=== PATIENT | male | born 1965 | race Caucasian/White ===

== ENCOUNTER 2019-04-04 08:05 | Day surgery (SDC) | payer MEDICARE ==
--- NOTE | 2019-04-03 16:36 | RAD REPORT ---
EXAM DESCRIPTION: RAD - Chest Pa And Lat (2 Views) - 04/03/2019 4:16 pm CLINICAL HISTORY: preop, pending cardiac catheterization COMPARISON: March 2014 TECHNIQUE: PA and lateral views of the chest were obtained. FINDINGS: The lungs are clear. Lung markings are accentuated by a slightly shallow inspiration. Juan Pablo lure, infiltrate or mass not identified. Heart size is normal and central vasculature is within diane l limits. No pleural effusion or pneumothorax seen. Old rib fracture changes are present. No acute bone findings seen. No aortic abnormality. IMPRESSION: No acute cardiopulmonary process.
[2019-04-03 16:49] LABS: Absolute Lymphocytes (CBC) 1.8 K/uL (0.7-4.9); Basophils % 0.7 % (0-1.3); Hematocrit 38.2 % (39.6-49.0); MPV 7.9 fL (7.6-11.3)
[2019-04-03 16:52] LABS: Protime INR 1.04
[2019-04-03 17:05] LABS: Potassium 4.3 mmol/L (3.5-5.1)
[2019-04-04] MEDS ORDERED: NA CHLORIDE 0.9% 500 ML ONE (08:26)
[2019-04-04] MEDS ORDERED: MIDAZOLAM HCL 2 MG/2 ML INJ ONE ×3 (09:50→10:38)
[2019-04-04] MEDS ORDERED: FENTANYL CITR 100 MCG/2 ML ONE ×2 (09:50→11:02)
[2019-04-04] MEDS ORDERED: ATROPINE SULF 1 MG/10 ML SYR IV ONE (10:24)
[2019-04-04] MEDS ORDERED: NA CHLORIDE 0.9% 100 ML IV ONE (10:24)
[2019-04-04] MEDS ORDERED: ASPIRIN 325 MG TAB ONE (11:13)
[2019-04-04] MEDS ORDERED: PRASUGREL (EFFIENT) 10 MG TAB ONE (11:13)
[2019-04-04] MEDS ORDERED: MORPHINE 4 MG/ML SYR IV PRN (11:39)
[2019-04-04] MEDS ORDERED: ZOLPIDEM TARTRATE 10 MG TABLET PO PRN (11:40)
[2019-04-04] MEDS ORDERED: NITROGLYCERIN 0.4 MG/TAB SL PRN (11:40)
[2019-04-04] MEDS ORDERED: NA CHLORIDE 0.9% 1,000 ML IV SCH (12:00)
--- NOTE | 2019-04-04 12:14 | EKG ---
Test Date: 2019-04-03 Test Time: 15:55:51 Advisor Advocate Angel Co Founder: MONIK MEASUREMENT RESULTS: Intervals: Rate: 87 MT: 162 QRSD: 86 QT: 340 QTc: 409 [place]: P: 54 MT: 162 QRS: 28 T: 51 INTERPRETIVE STATEMENTS: Normal sinus rhythm Normal ECG Compared to ECG 03/03/2011 22:44:19 Left ventricular hypertrophy no longer present Electronically Signed On 04-04-19 12:09:37 CDT by Dale Rivera
[2019-04-04 14:54] VITALS: BMI 37.3
[2019-04-04] MEDS ORDERED: ATORVASTATIN 80 MG TAB PO SCH (21:00)
[2019-04-04] MEDS ORDERED: ACETAMINOPHEN 325 MG TABLET PO PRN (21:08)
--- NOTE | 2019-04-04 21:50 | OP ---
Date of Procedure: 04/04/2019 Surgeon: Dale Rivera MD Gastroenterology Manager: Judy Maloney. Indication: Coronary artery disease and positive stress test. Procedures: Left heart catheterization, selective coronary artery and primary stent of the proximal circumflex. History Of Present Illness: Mr. Webster is 54, has had history of high blood pressure; dyslipidemia; d iabetes; coronary artery disease status post stent in the circumflex, LAD, and RCA; had chest pain, p ositive stress test. He was scheduled today for catheterization. Description Of Procedure: He was brought to the clinical lab scientist as an outpatient, prepped and draped in the routine sterile fashion. Received 100 mcg of fentanyl and 6 mg of Versed for sedation. 6-Malaysian sh eath introduced in the right common femoral artery. Angiogram there was normal. Angio-Seal was used to close the case. He had been prepped and draped in the routine sterile fashion. 6-Malaysian cathete rs were used to do the coronary angiography. The JR4 was inserted in the right main. Showed a paten t stent in the RCA proximal. He had about 50% to 60% stenosis in the mid RCA and distal RCA as well. 6-Malaysian JL4 catheter introduced in the left main. Showed a normal left main. A patent mid LAD st ent, 50% proximal LAD, 50% to 60% distal LAD. His circumflex showed a patent stent in the mid circum flex, but he had 70% to 80% stenosis in the proximal circumflex away from the previous stent. An XB 3.5 with side-hole guide catheter was placed in the left main. A [place] wire 0.014 extra-support exc hange length was introduced and crossed the lesion successfully. A Synergy 3.0 x 12 stent was placed at 11 atmospheres successfully with 0% residual. There were no complications. Blood Loss: 5 cc. Anesthesia: Total conscious sedation was 30 minutes. Final Diagnosis: Proximal circumflex severe stenosis, status post successful primary stent of the pr oximal circumflex. Patent mid circ stent, mid LAD stent, and proximal RCA stent. Multiple lesions i n the proximal and distal LAD as well as mid and distal RCA 50% to 60% stenosis. We will continue me dical therapy for those. Patient received aspirin, Effient, and Angiomax during the procedure. ORA/NAVEEN Voice ID: [id number] Report ID: [id number]
[2019-04-05 06:09] LABS: Hematocrit 37.6 % (39.6-49.0); Lymphocytes % 20.3 % (15.3-44.8); MPV 7.8 fL (7.6-11.3); RBC Red Blood Cell Count 4.33 M/uL (4.33-5.43)
[2019-04-05 06:23] LABS: Potassium 4.2 mmol/L (3.5-5.1)
--- NOTE | 2019-04-05 08:30 | EKG ---
Test Date: 2019-04-05 Test Time: 07:45:57 Plywood Layup Line Core Layer: [place] MEASUREMENT RESULTS: Intervals: Rate: 76 WI: 164 QRSD: 94 QT: 366 QTc: 411 [place]: P: 62 WI: 164 QRS: 52 T: 57 INTERPRETIVE STATEMENTS: Normal sinus rhythm Normal ECG Compared to ECG 04/03/2019 15:55:51 No significant changes Electronically Signed On 04-05-19 08:30:15 CDT by Agustín Truong
[2019-04-05] MEDS ORDERED: CLOPIDOGREL 75 MG TABLET PO SCH (09:00)
[2019-04-05] MEDS ORDERED: ASPIRIN 81 MG CHEWABLE TABLET PO SCH (09:00)
[2019-04-05 11:03] VITALS: BP 152/65; TEMP 98.2; O2SAT 95
== END 2019-04-05 10:20 | disposition home or self-care (01) ==
LOC: CCL 08:05 → 2ND 11:17 → CCL 04-05 10:20
DX: I25.10 Atherosclerotic heart disease of native coronary artery without angina pectoris (principal); I65.23 Occlusion and stenosis of bilateral carotid arteries; I10 Essential (primary) hypertension; E78.5 Hyperlipidemia, unspecified; E78.6 Lipoprotein deficiency; G62.9 Polyneuropathy, unspecified; E11.9 Type 2 diabetes mellitus without complications; Z95.5 Presence of coronary angioplasty implant and graft; Z79.02 Long term (current) use of antithrombotics/antiplatelets; Z79.4 Long term (current) use of insulin
CPT/HCPCS: 93005 ×2; 85025 ×2; 80048 ×2; 36415 ×2; 85610; 80061; 82947 ×2; 85347 ×2; 85730; 71046; 93454; C1893; C1760; C1725; C9600; J2250 ×3; J3010 ×2; J0583; J7040; J7030

== ENCOUNTER 2019-05-25 10:02 | Emergency (ER) | payer MEDICARE ==
--- OUTSIDE RECORDS SUMMARY | 2019-05-25 11:12 | XMS REPORT ---
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 Problem Spinal stenosis, lumbosacral region M48.07 Active Problem Erectile dysfunction N52.9 Active Problem History of CVA (cerebrovascular Z86.73 Active accident) without residual deficits Problem HTN (hypertension), benign I10 Active Problem Chronic back pain M54.9 Active Assessment 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 Problem Obstructive sleep apnea G47.33 Active Medications Medication Code Code Instructions Start End Status Dosage System Date Date NovoLog [facility] 84276578099 100 UNIT/ML Inactive sliding Subcutaneous four scale 36 times a day units Novolin N NDC 18420039883 100 UNIT/ML Inactive 50 units Subcutaneous twice daily Novolin R NDC 83808834371 100 UNIT/ML Apr 17, Active per subcutaneously 2019 sliding three times a day scale 2 units - 28 units Novolin 70/30 ND [id number] (70-30) 100 Apr 17, Active 70 units UNIT/ML 2019 Subcutaneous twice a day Results No Known Results Summary Purpose eClinicalWorks Submission
--- OUTSIDE RECORDS SUMMARY | 2019-05-25 11:12 | XMS REPORT ---
:1965 Author Organization eClinicalWorks Care Team Providers Name Role Phone Grullon, Michael Provider Role Unavailable Allergies No Known Allergies Problems Problem Type Condition Code Onset Dates Condition Status Problem Depression with anxiety F41.8 Active Problem Hyperlipidemia E78.5 Active Problem Peripheral neuropathy G62.9 Active Problem HTN (hypertension), benign I10 Active Problem Chronic back pain M54.9 Active Problem Obstructive sleep apnea G47.33 Active Problem Venous insufficiency of both lower I87.2 Active extremities Problem Atherosclerosis of coronary artery I25.10 Active of [place] heart Problem Other chronic pain G89.29 Active Problem 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
[2019-05-25 12:36] LABS: Absolute Lymphocytes (CBC) 1.5 K/uL (0.7-4.9); Basophils % 0.5 % (0-1.3); Hematocrit 42.5 % (39.6-49.0); Lymphocytes % 11.4 % (15.3-44.8); MPV 7.7 fL (7.6-11.3); RBC Red Blood Cell Count 4.99 M/uL (4.33-5.43)
[2019-05-25 12:52] LABS: Albumin 3.5 g/dL (3.4-5.0); Bilirubin Direct 0.3 mg/dL (0-0.2); Bilirubin Total 1.2 mg/dL (0.2-1.0); Potassium 4.2 mmol/L (3.5-5.1); Protein, Total 7.7 g/dL (6.4-8.2)
[2019-05-25] MEDS ORDERED: MORPHINE 4 MG/ML SYR ONE ×2 (13:02→14:19)
[2019-05-25] MEDS ORDERED: ONDANSETRON 4 MG/2 ML VIAL ONE (13:02)
[2019-05-25] MEDS ORDERED: NA CHLORIDE 0.9% 1,000 ML ONE (13:02)
--- NOTE | 2019-05-25 15:10 | RAD REPORT ---
EXAM DESCRIPTION: CT - Abdomen Pelvis W Contrast - 05/25/2019 2:35 pm CLINICAL HISTORY: Abdominal pain / hematochezia COMPARISON: none. TECHNIQUE: Computed axial tomography of the abdomen pelvis was obtained. 100 cc Isovue-300 was admin istered intravenously. Oral contrast was not requested which limits evaluation of bowel. All CT scans are performed using dose optimization technique as appropriate and may include automated exposure control or mA/KV adjustment according to patient size. FINDINGS: The liver, spleen, pancreas, adrenal and kidneys appear unremarkable. There is no evidence of diverticulitis. The wall of the proximal descending colon appears mildly thic kened Small umbilical hernia IMPRESSION: Mild thickening of the wall of the proximal descending colon indicative of a mild coliti s.
--- NOTE | 2019-05-25 15:41 | ER ---
Nurse's Notes [facility] Name: Tripp Webster Age: 54 yrs Sex: Male : 1965 Arrival Date: 05/25/2019 Time: 10:05 Bed 28 Private MD: Michael Grullon Diagnosis: Abdominal and pelvic pain;Left sided colitis Presentation: 05/25 10:43 Presenting complaint: Patient states: I called my pcp Dr. Grullon to see if i can get in tw2 to see him, i have been having stomach pains and throwing up since yesterday afternoon, i am having blood in the toilet, it is bright red since yesterday after. Transition of care: patient was not received from another setting of care. Onset of symptoms was May 25, 2019. Risk Assessment: Do you want to hurt yourself or someone else? Patient reports no desire to harm self or others. Initial Sepsis Screen: Does the patient meet any 2 criteria? No. Patient's initial sepsis screen is negative. Does the patient have a suspected source of infection? No. Patient's initial sepsis screen is negative. Care prior to arrival: None. 10:43 Method Of Arrival: Ambulatory tw2 10:43 Acuity: MIRIAM 3 tw2 Triage Assessment: 10:45 General: Appears in no apparent distress. unkempt, Behavior is calm, cooperative, tw2 appropriate for age. Pain: Complains of pain in abdomen. GI: Reports lower abdominal pain, upper abdominal pain, rectal bleeding, bloody stool, nausea. Historical: - Allergies: 10:49 No Known Allergies; tw2 - Home Meds: 10:49 gabapentin 600 mg oral tab 1 tab 3 times per day [Active]; amlodipine 10 mg tab 1 tab tw2 once daily [Active]; hydrochlorothiazide 25 mg Oral tab 1 tab once daily [Active]; clopidogrel 75 mg oral tab 1 tab once daily [Active]; Novolin N 100 unit/mL Sub-Q susp [Active]; Novolin R Sub-Q [Active]; - PMHx: 10:49 neuropathy; Diabetes - IDDM; tw2 - PSHx: 10:49 Heart stents(March 2019); tw2 - Immunization history:: Adult Immunizations. - Social history:: Smoking status: . - Ebola Screening: : Patient denies travel to an Ebola-affected area in the 21 days before illness onset. Screenin:11 Abuse screen: Denies threats or abuse. Nutritional screening: No deficits noted. tw2 Tuberculosis screening: No symptoms or risk factors identified. Fall Risk None identified. Assessment: 13:10 General: Appears in no apparent distress. uncomfortable, Behavior is fussy. mg2 13:10 Pain: Complains of pain in abdomen Pain does not radiate. Pain currently is 8 out of 10 mg2 on a pain scale. Quality of pain is described as aching, Pain began gradually, 1 day ago. Is intermittent. Neuro: Level of Consciousness is awake, alert, obeys commands, Oriented to person, place, time, situation. Cardiovascular: Capillary refill < 3 seconds Patient's skin is warm and dry. Respiratory: Airway is patent Respiratory effort is even, unlabored, Respiratory pattern is regular, symmetrical. GI: Bowel sounds present X 4 quads. Abdomen is tender to palpation Reports lower abdominal pain, bloody stool, nausea, vomiting, since yesterday. : No signs and/or symptoms were reported regarding the genitourinary system. EENT: No signs and/or symptoms were reported regarding the EENT system. Derm: Skin is intact, is healthy with good turgor, Skin is pink, warm \T\ dry. normal. Musculoskeletal: Circulation, motion, and sensation intact. Capillary refill < 3 seconds. 13:53 Reassessment: Patient appears in no apparent distress at this time. Patient and/or mg2 family updated on plan of care and expected duration. Pain level reassessed. Patient is alert, oriented x 3, equal unlabored respirations, skin warm/dry/pink. Patient states feeling better. Patient states symptoms have improved. 15:59 Reassessment: Patient states feeling better. Patient states symptoms have improved. mg2 Vital Signs: 10:45 BP 134 / 61; Pulse 95; Resp 18; Temp 98.1(TE); Pulse Ox 97% on R/A; Weight 120.2 kg tw2 (R); Height 5 ft. 11 in. (180.34 cm) (R); Pain 8/10; 12:08 BP 154 / 71; Pulse 91; Resp 16; Temp 97.7(O); Pulse Ox 100% ; lt1 12:13 BP 154 / 71; Pulse 81; Resp 18; Pulse Ox 100% on R/A; ss 13:27 BP 157 / 72; Pulse 89; Resp 16; Temp 98.2(O); Pulse Ox 98% ; lt1 13:29 Pulse Ox 86% ; lt1 13:30 Pulse Ox 100% on 2 lpm NC; lt1 15:59 BP 150 / 78; Pulse 89; Resp 18; Temp 98; Pulse Ox 100% on R/A; mg2 10:45 Body Mass Index 36.96 (120.20 kg, 180.34 cm) tw2 ED Course: 10:05 Patient arrived in ED. mr 10:05 Michael Grullon DO is Private Physician. mr 10:44 Triage completed. tw2 10:44 Arm band placed on. tw2 11:58 Bed in low position. Call light in reach. tw2 12:09 Flaca Del Valle, KAMILLA is Primary Nurse. ss 12:24 Edvin Abrams MD is Attending Physician. kdr 13:12 Served as a die cast engineer during rectal exam. mg2 13:15 Inserted saline lock: 20 gauge in right upper arm, using aseptic technique. Blood mg2 collected. 13:33 Al Johnson, KAMILLA is Primary Nurse. mg2 14:45 CT Abd/Pelvis - IV Contrast Only In Process Unspecified. EDMS 15:28 Michael Grullon DO is Referral Physician. kdr 16:00 IV discontinued, intact, bleeding controlled, No redness/swelling at site. Pressure mg2 dressing applied. Administered Medications: 13:15 Drug: morphine 4 mg Route: IVP; Site: right upper arm; mg2 13:47 Follow up: Response: No adverse reaction; Pain is decreased; RASS: Alert and Calm (0) mg2 13:15 Drug: Zofran 4 mg Route: IVP; Site: right upper arm; mg2 13:46 Follow up: Response: No adverse reaction mg2 13:15 Drug: NS 0.9% 1000 ml Route: IV; Rate: 1 bolus; Site: right upper arm; mg2 15:48 Follow up: Response: No adverse reaction; IV Status: Completed infusion; IV Intake: mg2 1000ml 14:21 Drug: morphine 4 mg {Note: RASS:0.} Route: IVP; Site: right antecubital; tr5 15:47 Follow up: Response: No adverse reaction mg2 15:58 Drug: TORadol - Ketorolac 15 mg Route: IVP; Site: right upper arm; mg2 Point of Care Testing: Guaiac: 13:24 Stool Guaiac: Positive; Stool Hemoccult Control: Pass; mg2 Intake: 15:48 IV: 1000ml; Total: 1000ml. mg2 Outcome: 15:39 Discharge ordered by . kdr 16:00 Discharged to home ambulatory. mg2 16:00 Condition: stable 16:00 Discharge instructions given to patient, Instructed on discharge instructions, follow up and referral plans. medication usage, Demonstrated understanding of instructions, follow-up care, medications, Prescriptions given X 4. 16:01 Patient left the ED. mg2 Signatures: Dispatcher [employer] EDMS Edvin Abrams MD MD kdr White, Toma mr Flaca Del Valle, RN RN ss Nori Garcia RN RN tw2 Al Johnson RN RN mg2 Dee Ronquillo 1 Lauro Samano RN RN tr5 Corrections: (The following items were deleted from the chart) 10:57 10:43 Acuity: MIRIAM 2 tw2 tw2
--- NOTE | 2019-05-25 15:42 | EDPHYS ---
Physician Documentation [facility] Name: Tripp Webster Age: 54 yrs Sex: Male : 1965 Arrival Date: 05/25/2019 Time: 10:05 Bed 28 Private MD: [facility] ED Physician Edvin Abrams HPI: 05/25 16:17 This 54 yrs old Male presents to ER via Ambulatory with complaints of kdr Abdominal Pain, Rectal Bleeding, Vomiting. 16:30 The patient presents with abdominal pain that is diffuse. Onset: The symptoms/episode kdr began/occurred gradually, 1 week(s) ago. The symptoms do not radiate. Associated signs and symptoms: Pertinent positives: blood in stools, nausea. The symptoms are described as achy, crampy, intermittent, waxing/waning. Modifying factors: The symptoms are alleviated by nothing, the symptoms are aggravated by touching the area, walking. Severity of pain: At its worst the pain was moderate severe in the emergency department the pain has improved mildly. The patient has not experienced similar symptoms in the past. The patient has not recently seen a physician. Historical: - Allergies: 10:49 No Known Allergies; tw2 - Home Meds: 10:49 gabapentin 600 mg oral tab 1 tab 3 times per day [Active]; amlodipine 10 mg tab 1 tab tw2 once daily [Active]; hydrochlorothiazide 25 mg Oral tab 1 tab once daily [Active]; clopidogrel 75 mg oral tab 1 tab once daily [Active]; Novolin N 100 unit/mL Sub-Q susp [Active]; Novolin R Sub-Q [Active]; - PMHx: 10:49 neuropathy; Diabetes - IDDM; tw2 - PSHx: 10:49 Heart stents(March 2019); tw2 - Immunization history:: Adult Immunizations. - Social history:: Smoking status: . - Ebola Screening: : Patient denies travel to an Ebola-affected area in the 21 days before illness onset. ROS: 16:30 Constitutional: Negative for fever, chills, and weight loss, Eyes: Negative for injury, kdr pain, redness, and discharge, ENT: Negative for injury, pain, and discharge, Neck: Negative for injury, pain, and swelling, Cardiovascular: Negative for chest pain, palpitations, and edema, Respiratory: Negative for shortness of breath, cough, wheezing, and pleuritic chest pain, Back: Negative for injury and pain, : Negative for injury, bleeding, discharge, and swelling, MS/Extremity: Negative for injury and deformity, Skin: Negative for injury, rash, and discoloration, Neuro: Negative for headache, weakness, numbness, tingling, and seizure activity. Psych: Negative for depression, anxiety, suicide ideation, homicidal ideation, and hallucinations, Allergy/Immunology: Negative for hives, rash, and allergies, Endocrine: Negative for neck swelling, polydipsia, polyuria, polyphagia, and marked weight changes, Hematologic/Lymphatic: Negative for swollen nodes, abnormal bleeding, and unusual bruising. 16:30 Abdomen/GI: Positive for abdominal pain, nausea, vomiting, and diarrhea, diarrhea, abdominal cramps, rectal bleeding, Negative for constipation, abdominal distension. Exam: 16:45 Constitutional: This is a well developed, well nourished patient who is awake, alert, kdr and in mild distress. Head/Face: Normocephalic, atraumatic. Eyes: Pupils equal round and reactive to light, extra-ocular motions intact. Lids and lashes normal. Conjunctiva and sclera are non-icteric and not injected. Cornea within normal limits. Periorbital areas with no swelling, redness, or edema. Neck: Trachea midline, no thyromegaly or masses palpated, and no cervical lymphadenopathy. Supple, full range of motion without nuchal rigidity, or vertebral point tenderness. No Meningismus. Chest/axilla: Normal chest wall appearance and motion. Nontender with no deformity. No lesions are appreciated. Cardiovascular: Regular rate and rhythm with a normal S1 and S2. No gallops, murmurs, or rubs. Normal PMI, no JVD. No pulse deficits. Respiratory: Lungs have equal breath sounds bilaterally, clear to auscultation and percussion. No rales, rhonchi or wheezes noted. No increased work of breathing, no retractions or nasal flaring. Back: No spinal tenderness. No costovertebral tenderness. Full range of motion. Skin: Warm, dry with normal turgor. Normal color with no rashes, no lesions, and no evidence of cellulitis. MS/ Extremity: Pulses equal, no cyanosis. Neurovascular intact. Full, normal range of motion. Neuro: Awake and alert, GCS 15, oriented to person, place, time, and situation. Cranial nerves II-XII grossly intact. Motor strength 5/5 in all extremities. Sensory grossly intact. Cerebellar exam normal. Normal gait. Psych: Awake, alert, with orientation to person, place and time. Behavior, mood, and affect are within normal limits. 16:45 Abdomen/GI: Inspection: abdomen appears normal, obese Bowel sounds: normal, in all quadrants, active, Palpation: soft, mild abdominal tenderness, in all quadrants, mass, is not appreciated, rebound tenderness, is not appreciated. Vital Signs: 10:45 BP 134 / 61; Pulse 95; Resp 18; Temp 98.1(TE); Pulse Ox 97% on R/A; Weight 120.2 kg tw2 (R); Height 5 ft. 11 in. (180.34 cm) (R); Pain 8/10; 12:08 BP 154 / 71; Pulse 91; Resp 16; Temp 97.7(O); Pulse Ox 100% ; lt1 12:13 BP 154 / 71; Pulse 81; Resp 18; Pulse Ox 100% on R/A; ss 13:27 BP 157 / 72; Pulse 89; Resp 16; Temp 98.2(O); Pulse Ox 98% ; lt1 13:29 Pulse Ox 86% ; lt1 13:30 Pulse Ox 100% on 2 lpm NC; lt1 15:59 BP 150 / 78; Pulse 89; Resp 18; Temp 98; Pulse Ox 100% on R/A; mg2 10:45 Body Mass Index 36.96 (120.20 kg, 180.34 cm) tw2 MDM: 15:39 Patient medically screened. kdr 16:45 Data reviewed: vital signs, nurses notes, lab test result(s), radiologic studies. kdr Counseling: I had a detailed discussion with the patient and/or guardian regarding: the historical points, exam findings, and any diagnostic results supporting the discharge/admit diagnosis, lab results, radiology results, the need for outpatient follow up. 05/25 12:10 Order name: Basic Metabolic Panel; Complete Time: 14:10 ss 12 12:10 Order name: CBC with Diff; Complete Time: 14:10 ss 12 12:10 Order name: Creatinine for Radiology; Complete Time: 14:10 ss 12 12:10 Order name: Hepatic Function; Complete Time: 14:10 ss 05/25 12:10 Order name: Lipase; Complete Time: 14:10 ss 05/25 12:10 Order name: TS; Complete Time: 14:10 ss 05/25 12:10 Order name: IV Saline Lock; Complete Time: 13:22 ss 05/25 14:04 Order name: ABO/RH no charge; Complete Time: 14:10 EDMS 05/25 14:12 Order name: CT Abd/Pelvis - IV Contrast Only; Complete Time: 15:27 kdr 05/25 12:10 Order name: Labs collected and sent; Complete Time: 13:22 ss Administered Medications: 13:15 Drug: morphine 4 mg Route: IVP; Site: right upper arm; mg2 13:47 Follow up: Response: No adverse reaction; Pain is decreased; RASS: Alert and Calm (0) mg2 13:15 Drug: Zofran 4 mg Route: IVP; Site: right upper arm; mg2 13:46 Follow up: Response: No adverse reaction mg2 13:15 Drug: NS 0.9% 1000 ml Route: IV; Rate: 1 bolus; Site: right upper arm; mg2 15:48 Follow up: Response: No adverse reaction; IV Status: Completed infusion; IV Intake: mg2 1000ml 14:21 Drug: morphine 4 mg {Note: RASS:0.} Route: IVP; Site: right antecubital; tr5 15:47 Follow up: Response: No adverse reaction mg2 15:58 Drug: TORadol - Ketorolac 15 mg Route: IVP; Site: right upper arm; mg2 Point of Care Testing: Guaiac: 13:24 Stool Guaiac: Positive; Stool Hemoccult Control: Pass; mg2 Disposition: 05/25/19 15:39 Discharged to Home. Impression: Abdominal and pelvic pain, Left sided colitis. - Condition is Stable. - Discharge Instructions: Abdominal Pain, Adult, Diarrhea, Adult, Pnew-qt-Pndr, Colitis. - Prescriptions for Cipro 500 mg Oral Tablet - take 1 tablet by ORAL route every 12 hours for 10 days; 20 tablet. Flagyl 500 mg Oral Tablet - take 1 tablet by ORAL route every 6 hours for 10 days; 40 tablet. Zofran 4 mg Oral Tablet - take 1 tablet by ORAL route every 12 hours As needed; 12 tablet. Tramadol 50 mg Oral Tablet - take 1 tablet by ORAL route every 8 hours as needed; 12 tablet. - Medication Reconciliation Form, Thank You Letter, Antibiotic Education, Prescription Opioid Use form. - Follow up: Michael Grullon DO; When: 2 - 3 days; Reason: If symptoms return, Further diagnostic work-up, Recheck today's complaints, Continuance of care, Re-evaluation by your physician. - Problem is new. - Symptoms have improved. Signatures: Dispatcher [employer] EDTX Edvin Abrams MD MD kdr Flaca Del Valle RN RN ss Nori Garcia RN RN tw2 Al Johnson RN RN mg2 Lauro Samano RN RN tr5 Corrections: (The following items were deleted from the chart) 16:01 15:39 05/25/2019 15:39 Discharged to Home. Impression: Abdominal and pelvic pain; Left mg2 sided colitis. Condition is Stable. Forms are Medication Reconciliation Form, Thank You Letter, Antibiotic Education, Prescription Opioid Use. Follow up: Michael Grullon; When: 2 - 3 days; Reason: If symptoms return, Further diagnostic work-up, Recheck today's complaints, Continuance of care, Re-evaluation by your physician. Problem is new. Symptoms have improved. kdr
[2019-05-25] MEDS ORDERED: KETOROLAC 30 MG/ML INJ ONE (15:51)
[2019-05-25 16:23] VITALS: O2SAT 100
[2019-05-25 16:25] VITALS: BP 150/78; TEMP 98
== END 2019-05-25 16:01 | disposition home or self-care (01) ==
LOC: ER 10:02
DX: K51.50 Left sided colitis without complications (principal); E11.40 Type 2 diabetes mellitus with diabetic neuropathy, unspecified; Z79.4 Long term (current) use of insulin; Z95.818 Presence of other cardiac implants and grafts
CPT/HCPCS: 96361; 85025; 80048; 36415; 86900; 86850; 86901; 80076; 83690; 74177; 96375; 96374; 99284; Q9967; J7030; J2405

== ENCOUNTER 2019-06-14 08:50 | Inpatient (IN) | payer MEDICARE ==
--- OUTSIDE RECORDS SUMMARY | 2019-06-14 08:53 | XMS REPORT ---
[...] Atherosclerosis of coronary artery I25.10 Active of [place] heart Problem Other chronic pain G89.29 Active [...] End Status Dosage System Date Date NovoLog [facility] 96003984584 100 UNIT/ML Inactive sliding Subcutaneous four scale 36 times a day units Novolin N NDC 06997677988 100 UNIT/ML Inactive 50 units Subcutaneous twice daily Novolin R NDC 35477698369 100 UNIT/ML Apr 17, Active per subcutaneously 2019 sliding three times a day scale 2 units - 28 units Novolin 70/30 ND 77911202983 (70-30) 100 Apr 17, Active 70 units UNIT/ML 2019 Subcutaneous twice a day Results No Known Results Summary Purpose eClinicalWorks Submission
--- OUTSIDE RECORDS SUMMARY | 2019-06-14 08:53 | XMS REPORT ---
:1965 Author Organization e[employer] Care Team Providers Name Role Phone Michael Grullon Provider Role Unavailable Allergies, Adverse Reactions, Alerts Substance Reaction Event Type N.K.D.A. Info Not Available Non Drug Allergy Problems Problem Type Condition Code Onset Dates Condition Status Assessment Other chronic pain G89.29 Active Problem Chronic back pain M54.9 Active Assessment History of CVA (cerebrovascular Z86.73 Active accident) without residual deficits Problem Obstructive sleep apnea G47.33 Active Assessment Peripheral neuropathy G62.9 Active Problem Depression with anxiety F41.8 Active Problem Hyperlipidemia E78.5 Active Problem Peripheral neuropathy G62.9 Active Problem Venous insufficiency of both lower I87.2 Active extremities Problem Atherosclerosis of coronary artery I25.10 Active of [place] [facility] Assessment 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 Assessment Low back pain M54.5 Active Problem Other chronic pain G89.29 Active Assessment Atherosclerosis of coronary artery I25.10 Active of [place] [facility] Problem 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 Problem Spinal stenosis, lumbosacral region M48.07 Active Problem Erectile dysfunction N52.9 Active Problem History of CVA (cerebrovascular Z86.73 Active accident) without residual deficits Assessment Obstructive sleep apnea G47.33 Active Assessment Depression with anxiety F41.8 Active Assessment Noncompliance with CPAP treatment Z91.14 Active Assessment Hyperlipidemia E78.5 Active Problem HTN (hypertension), benign I10 Active Assessment HTN (hypertension), benign I10 Active Assessment Left sided colitis with K51.519 Active complication Medications Medication Code Code Instructions Start End Status Dosage System Date Date Novolin R [facility] 96233430604 100 UNIT/ML Apr 17, Active per subcutaneously 2018 sliding three times a scale 2 day units - 28 units Neurontin [facility] 66013659796 600 MG Orally Active 1 tablet Once a day Lipitor ND 12868183940 80 MG Active TAKE 1 TABLET BY MOUTH ONCE A DAY Lisinopril [facility] 32226813874 30 MG Orally Active 1 tablet Once a day Neurontin [facility] 98581567161 600 MG Active TAKE 1 TABLET BY MOUTH 4 TIMES DAILY OneTouch Ultra Test [facility] 89828802976 - fingerstick Active TEST Four times a day BLOOD GLUCOSE FOUR TIMES A DAY Plavix [facility] 70968876180 75 MG Orally Active 1 tablet Once a day Escitalopram Oxalate [facility] 76623678028 20 MG Orally Active 1 tablet Once a day Hydrochlorothiazide [facility] 96049123362 12.5 MG Orally Active 1 tablet Once a day in the morning NovoLog [facility] 74667782653 100 UNIT/ML Active sliding Subcutaneous scale 36 four times a day units Novolin N [facility] 25409331879 100 UNIT/ML Active 50 units Subcutaneous twice daily Amlodipine Besylate [facility] 31992929712 5 MG Active TAKE 1 TABLET BY MOUTH ONCE A DAY Plavix [facility] 11298374423 75 MG Active TAKE 1 TABLET BY MOUTH ONCE A DAY Amlodipine Besylate [facility] 31280521779 5 MG Orally Once Active 1 tablet a day Lisinopril [facility] 92922888795 30 MG Active TAKE 1 TABLET BY MOUTH ONCE A DAY ProAir HFA [facility] 87185140728 108 (90 Base) Active 2 puffs MCG/ACT as Inhalation every needed 6 hrs Novolin 70/30 [facility] 14104960197 (70-30) 100 Apr 17, Active 70 units UNIT/ML 2019 Subcutaneous twice a day Lipitor [facility] 94546018145 80 MG Orally Active 1 tablet Once a day Results No Known Results Summary Purpose eClinicalWorks Submission
--- OUTSIDE RECORDS SUMMARY | 2019-06-14 08:53 | XMS REPORT ---
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
[2019-06-14] MEDS ORDERED: NA CHLORIDE 0.9% 3,000 ML ONE (09:15)
[2019-06-14] MEDS ORDERED: ACETAMINOPHEN 500 MG TAB ONE (09:15)
[2019-06-14] MEDS ORDERED: ONDANSETRON 4 MG/2 ML VIAL ONE ×4 (09:15→14:04)
[2019-06-14] MEDS ORDERED: METRONIDAZOLE 500mg IVPB 500 MG/100 ML BAG IV ONE (09:15)
[2019-06-14] MEDS ORDERED: CEFTRIAXONE/SWI 1gm 1 GM/10 ML SYR ONE (09:15)
[2019-06-14] MEDS ORDERED: MORPHINE 4 MG/ML SYR ONE ×3 (10:05→14:04)
--- NOTE | 2019-06-14 10:50 | RAD REPORT ---
EXAM DESCRIPTION: RAD - Chest Single View - 06/14/2019 9:28 am CLINICAL HISTORY: Cough COMPARISON: April 03 TECHNIQUE: AP portable chest image was obtained 0925 hours . FINDINGS: Lung volumes are low. This accentuates the patient's interstitial pattern. No true change is suspected. No focal mass or consolidation. Heart size within limits of normal for shallow inspirat ion portable imaging. No measurable pleural effusion and no pneumothorax. No acute bony abnormality s een. No acute aortic findings suspected. IMPRESSION: Shallow inspiration film without acute cardiopulmonary finding. Shallow inspiration and baseline interstitial pattern could mask mild interstitial edema or infiltrat e.
[2019-06-14 10:52] LABS: Absolute Lymphocytes (CBC) 1.1 K/uL (0.7-4.9); Basophils % 0.4 % (0-1.3); Hematocrit 42.6 % (39.6-49.0); Lymphocytes % 21.9 % (15.3-44.8); MPV 8.2 fL (7.6-11.3); RBC Red Blood Cell Count 5.05 M/uL (4.33-5.43)
[2019-06-14 11:01] LABS: Protime INR 1.25
[2019-06-14 11:03] LABS: ALT/SGPT 35 U/L (12-78); AST/SGOT 37 U/L (15-37); Albumin 2.8 g/dL (3.4-5.0); Alkaline Phosphatase 87 U/L (45-117); BUN Blood Urea Nitrogen 18 mg/dL (7-18); Bicarbonate 24 mmol/L (21-32); Bilirubin Direct 0.2 mg/dL (0-0.2); Bilirubin Total 0.9 mg/dL (0.2-1.0); C-Reactive Protein 7.91 mg/L (<3.00); CKMB Creatine Kinase MB < 1.0 ng/mL (0.3-3.6); Creatine Phosphokinase 92 U/L (39-308); Glucose Level 306 mg/dL (74-106); Lipase 49 U/L (73-393); NT PRO-BNP 71 pg/mL (<125); Potassium 3.7 mmol/L (3.5-5.1); Protein, Total 6.7 g/dL (6.4-8.2); Sodium Level 135 mmol/L (136-145); Troponin (Emerg Dept Use Only) < 0.02 ng/mL (0.0-0.045)
--- NOTE | 2019-06-14 12:00 | RAD REPORT ---
EXAM DESCRIPTION: - CT-ABD PELVIS W/O CONTRAST - 06/14/2019 11:29 am CLINICAL HISTORY: Abdominal pain, chest pain, nausea and vomiting COMPARISON: CT study May 25, 2019 TECHNIQUE: Axial [address] imaging of the abdomen and pelvis was performed without oral or IV co ntrast. All CT scans are performed using dose optimization technique as appropriate and may include automated exposure control or mA/KV adjustment according to patient size. FINDINGS: No suspicious findings in the lung bases. The liver, spleen, and pancreas show no suspicious findings for a non IV contrast study. Gallbladder and biliary tree are also without suspicious finding. No hydronephrosis or suspicious mass in either kidney. Isodense masses and pyelonephritis cannot be excluded on non IV contrast imaging. No bladder abnormality. No gastric dilatation or wall thickening. A few prominent jejunum loops are present. Obstruction is n ot suspected. No ileum abnormality. No evidence for appendicitis. Moderate stool volume is present fi lling the colon. No colon wall thickening or mass. No free air, free fluid or inflammatory stranding. No hernia, mass or bulky lymphadenopathy. No adrenal abnormality. No suspicious bony findings. Bony degenerative changes are present. Prominent vascular calcifications are present. IMPRESSION: Prominent loops of jejunum favor a nonspecific enteritis. Bowel obstruction is not suspe cted. No free air, abscess or other surgically emergent finding. Moderately large stool volume filling but not dilating the colon. No acute colon process. Prominent for age bony degenerative change. No acute findings.
--- NOTE | 2019-06-14 12:11 | ER ---
Nurse's Notes [facility] Name: Tripp Webster Age: 54 yrs Sex: Male : 1965 Arrival Date: 06/14/2019 Time: 08:52 Bed 8 Private MD: Diagnosis: Sepsis, unspecified organism;Other specified noninfective gastroenteritis and colitis Presentation: 06/14 08:53 Presenting complaint: N/V/D x 1 week, chest pain x 2 weeks. Transition of care: patient hb was not received from another setting of care. Onset of symptoms was June 07, 2020. Risk Assessment: Do you want to hurt yourself or someone else? Patient reports no desire to harm self or others. Care prior to arrival: None. 08:53 Method Of Arrival: EMS: [facility] 08:53 Acuity: MIRIAM 2 hb 08:53 Initial Sepsis Screen: Does the patient meet any 2 criteria? Temp <36.0*C (96.8*F)) or hb > 38.3*C (100.9*F). HR > 90 bpm. Yes Does the patient have a suspected source of infection? Yes: Other: N/V/D. Historical: - Allergies: 08:54 No Known Allergies; hb - Home Meds: 08:54 amlodipine 10 mg tab 1 tab once daily [Active]; clopidogrel 75 mg Oral tab 1 tab once hb daily [Active]; gabapentin 600 mg Oral tab 1 tab 3 times per day [Active]; hydrochlorothiazide 25 mg oral tab [Active]; Novolin N 100 unit/mL Sub-Q susp [Active]; Novolin R Sub-Q [Active]; - PMHx: 08:54 Diabetes - IDDM; neuropathy; hb - PSHx: 08:54 Heart stents(March 2019); hb - Immunization history:: Adult Immunizations up to date. - Social history:: Smoking status: Patient/guardian denies using tobacco, Patient/guardian denies using alcohol, street drugs. - Ebola Screening: : No symptoms or risks identified at this time. - Family history:: not pertinent. Screenin:56 Abuse screen: Denies threats or abuse. Denies injuries from another. Nutritional hb screening: No deficits noted. Tuberculosis screening: No symptoms or risk factors identified. Fall Risk Total Brush Fall Scale indicates Low Risk Score (25-44 pts). Fall prevention measures have been instituted. Side Rails Up X 2 Frequent Obs/Assesments occuring As available Patient and Family Educated on Fall Prevention Program and strategies. Assessment: 08:56 Reassessment: CODE SEPSIS CALLED. hb 09:00 General: Appears in no apparent distress. uncomfortable, ill, Behavior is agitated, hb restless. Pain: Pain currently is 10 out of 10 on a pain scale. Neuro: Level of Consciousness is awake, alert, obeys commands, Oriented to person, place, time, situation. Cardiovascular: Heart tones S1 S2 present Capillary refill < 3 seconds Patient's skin is warm and dry. Respiratory: Airway is patent Respiratory effort is even, unlabored, Respiratory pattern is regular, symmetrical, Breath sounds are clear bilaterally. GI: Abdomen is round Bowel sounds present X 4 quads. Reports lower abdominal pain, upper abdominal pain, diarrhea, nausea, vomiting. : No signs and/or symptoms were reported regarding the genitourinary system. EENT: No signs and/or symptoms were reported regarding the EENT system. Derm: Skin is intact, is healthy with good turgor, Skin is pink, warm \T\ dry. Musculoskeletal: No signs and/or symptoms reported regarding the musculoskeletal system. 09:30 Reassessment: inside lab at bedside for 2nd blood culture. hb 09:40 Reassessment: Pt refusing second set of blood cultures, refusing antibiotics, Dr. baylee Lovell aware. 10:08 Reassessment: Pt c/o back pain 03/23, Dr. Lovell notified, morphine and zofran hb administered as ordered. 2nd set of blood cultures obtained after medication administered. 10:09 Reassessment: iv abx started. hb 11:00 Reassessment: Patient appears in no apparent distress at this time. Patient and/or hb family updated on plan of care and expected duration. Pain level reassessed. Patient is alert, oriented x 3, equal unlabored respirations, skin warm/dry/pink. 12:00 Reassessment: Patient appears in no apparent distress at this time. Patient and/or hb family updated on plan of care and expected duration. Pain level reassessed. Patient is alert, oriented x 3, equal unlabored respirations, skin warm/dry/pink. 12:55 Reassessment: Patient appears in no apparent distress at this time. Patient and/or hb family updated on plan of care and expected duration. Pain level reassessed. Patient is alert, oriented x 3, equal unlabored respirations, skin warm/dry/pink. Admission ordered, awaiting room assignment at this time. 13:45 Reassessment: Patient appears in no apparent distress at this time. Patient and/or hb family updated on plan of care and expected duration. Pain level reassessed. Patient is alert, oriented x 3, equal unlabored respirations, skin warm/dry/pink. 14:04 Reassessment: Pt c/o chest, abdominal, and back pain 10/10. Dr. Lovell notified, hb repeat morphine and zofran administered as ordered. 14:23 Reassessment: Receiving nurse unavailable at this time, report called to Charge Nurse baylee Barkley RN. Vital Signs: 08:54 BP 149 / 76; Pulse 119; Resp 20; Temp 104.7(TE); Pulse Ox 92% on R/A; Weight 117.93 kg; hb Height 5 ft. 11 in. (180.34 cm); Pain 5/10; 10:00 BP 136 / 68; Pulse 109; Resp 20; Temp 102.1; Pulse Ox 97% 3 lpm ; Pain 10/10; hb 11:00 BP 129 / 56; Pulse 101; Resp 18; Temp 100.7(O); Pulse Ox 96% on 3 lpm NC; Pain 3/10; hb 12:00 BP 117 / 53; Pulse 97; Resp 18; Pulse Ox 99% on 3 lpm NC; Pain 3/10; hb 12:59 BP 115 / 74; Pulse 88; Resp 17; Pulse Ox 99% on 2 lpm NC; Pain 2/10; hb 14:25 BP 146 / 53; Pulse 102; Resp 18; Temp 100.2; Pulse Ox 100% on R/A; Pain 4/10; hb 08:54 Body Mass Index 36.26 (117.93 kg, 180.34 cm) ED Course: 08:52 Patient arrived in ED. hb 08:54 Triage completed. hb 08:55 Raven Lovell MD is Attending Physician. ma2 08:56 Arm band placed on. hb 09:02 Missed attempt(s): 22 gauge in left antecubital area. x 2 by Yael KOHLI. hb 09:07 Radiology exam delayed due to lab results not completed at this time. (BUN/Creatinine). bq 09:15 Patient has correct armband on for positive identification. Placed in gown. Bed in low hb position. Call light in reach. Side rails up X2. media monitor on. Pulse ox on. NIBP on. 09:15 Inserted saline lock: 20 gauge in right antecubital area, using aseptic technique. hb Blood collected. 09:15 Initial lab(s) drawn, First set of blood cultures drawn by me. hb 09:28 Chest Single View XRAY In Process Unspecified. EDMS 10:08 Second set of blood cultures drawn. hb 10:32 Lab(s) recollected, by me, sent to lab. jl7 11:32 CT-ABD In Process Unspecified. EDMS 11:57 Yael Maldonado, KAMILLA is Primary Nurse. jl7 12:08 Clif Mendez DO is Hospitalizing Provider. al2 13:49 Urine Dipstick--Ancillary (enter results) Sent. jl7 14:10 No provider procedures requiring assistance completed. Patient admitted, IV remains in jl7 place. intact, No redness/swelling at site. Administered Medications: 09:10 CANCELLED (Duplicate Order): NS 0.9% (30 ml/kg) 30 ml/kg IV at bolus once; Sepsis iw Protocol 09:18 Drug: NS 0.9% (30 ml/kg) 30 ml/kg Route: IV; Rate: bolus; Site: right antecubital; hb 10:45 Follow up: Response: No adverse reaction; IV Status: Completed infusion; IV Intake: hb 3500ml 09:20 Drug: Acetaminophen 1000 mg Route: PO; hb 10:30 Follow up: Response: No adverse reaction; Temperature is decreased hb 09:20 Drug: Zofran 4 mg Route: IVP; Site: right antecubital; hb 10:00 Follow up: Response: No adverse reaction hb 10:08 Drug: morphine 4 mg Route: IVP; Site: right antecubital; hb 10:30 Follow up: Response: No adverse reaction; Pain is decreased hb 10:08 Drug: Zofran 4 mg Route: IVP; Site: right antecubital; hb 10:30 Follow up: Response: No adverse reaction hb 10:09 Drug: Rocephin 1 grams Route: IV; Rate: calculated rate; Site: right antecubital; hb 10:10 Follow up: IV Status: Completed infusion; IV Intake: 5ml hb 10:40 Follow up: Response: No adverse reaction hb 10:09 Drug: Flagyl 500 mg Volume: 100 ml; Route: IVPB; Rate: 200 ml/hr; Infused Over: 30 hb mins; Site: right antecubital; 10:40 Follow up: Response: No adverse reaction; IV Status: Completed infusion; IV Intake: hb 200ml 12:05 Drug: Zofran 4 mg Route: IVP; Site: right antecubital; jl7 12:30 Follow up: Response: No adverse reaction jl7 12:06 Drug: morphine 4 mg Route: IVP; Site: right antecubital; jl7 12:30 Follow up: Response: No adverse reaction; Pain is decreased jl7 14:04 Drug: morphine 4 mg Route: IVP; Site: right antecubital; hb 14:15 Follow up: Response: No adverse reaction; Pain is decreased jl7 14:04 Drug: Zofran 4 mg Route: IVP; Site: right antecubital; hb 14:15 Follow up: Response: No adverse reaction jl7 Intake: 10:10 IV: 5ml; Total: 5ml. hb 10:40 IV: 200ml; Total: 205ml. hb 10:45 IV: 3500ml; Total: 3705ml. hb Outcome: 12:08 Discharge ordered by . ma2 12:09 Decision to Hospitalize by Provider. ma2 15:00 Admitted to Tele accompanied by tech, via wheelchair, with chart. jl7 15:00 Condition: stable 15:00 Discharge instructions given to patient, Instructed on the need for admit, Demonstrated understanding of instructions. 15:29 Patient left the ED. hb Signatures: Dispatcher [employer] EDMS Anila Gonzalez Heather, RN RN Yael Maldonado RN RN jl7 Alzahri, Mohammad, MD MD ma2 Williams, Irene RN iw Corrections: (The following items were deleted from the chart) 10:37 09:40 Reassessment: Pt refusing second set of blood cultures, Dr. Lovell aware. hb hb 10:37 10:08 Reassessment: Pt c/o back pain 03/23, Dr. Lovell notified, morphine and zofran hb administered as ordered. 2nd set of blood cultures obtained after medication administered. hb 11:11 11:00 BP 129 / 56; Pulse 101bpm; Resp 18bpm; Pulse Ox 100% RA; Pain 3/10; hb hb 12:22 12:22 BP 117 / 53; Pulse 97bpm; Resp 18bpm; Pulse Ox 99% RA; Pain 3/10; hb hb 13:02 08:54 BP 149 / 76; Pulse 119bpm; Resp 20bpm; Pulse Ox 100% RA; Temp 104.7F Temporal; hb 117.93 kg; Height 5 ft. 11 in.; BMI: 36.2; Pain 10/21; hb 13:02 10:00 BP 136 / 68; Pulse 109bpm; Resp 20bpm; Pulse Ox 100%; Temp 102.1F; Pain 03/23; hb hb 13:02 11:00 BP 129 / 56; Pulse 101bpm; Resp 18bpm; Pulse Ox 100% RA; Temp 100.7F Oral; Pain hb 310; hb 13:02 12:00 BP 117 / 53; Pulse 97bpm; Resp 18bpm; Pulse Ox 99% RA; Pain 3/10; hb hb 13:04 12:59 BP 118 / 56; Pulse 88bpm; Resp 17bpm; Pulse Ox 99% 2 lpm Nasal Cannula; Pain hb /10; hb 14:38 14:23 Reassessment: Patient appears in no apparent distress at this time. Patient hb and/or family updated on plan of care and expected duration. Pain level reassessed. Patient is alert, oriented x 3, equal unlabored respirations, skin warm/dry/pink. Receiving nurse unavailable at this time, report called to Charge Nurse Rubia KOHLI. hb
--- NOTE | 2019-06-14 12:12 | EDPHYS ---
Physician Documentation [facility] Name: Tripp Webster Age: 54 yrs Sex: Male : 1965 Arrival Date: 06/14/2019 Time: 08:52 Bed 8 Private MD: ED Physician Raven Lovell HPI: 06/14 12:05 This 54 yrs old Male presents to ER via EMS with complaints of ma2 Nausea/Vomiting/Diarrhea. 12:05 Onset: The symptoms/episode began/occurred gradually, 6 day(s) ago. Associated signs ma2 and symptoms: Pertinent negatives: belching, diarrhea, flatulence, hematuria. Severity of symptoms: At their worst the symptoms were moderate in the emergency department the symptoms are unchanged. The patient has not experienced similar symptoms in the past. Historical: - Allergies: 08:54 No Known Allergies; hb - Home Meds: 08:54 amlodipine 10 mg tab 1 tab once daily [Active]; clopidogrel 75 mg Oral tab 1 tab once hb daily [Active]; gabapentin 600 mg Oral tab 1 tab 3 times per day [Active]; hydrochlorothiazide 25 mg oral tab [Active]; Novolin N 100 unit/mL Sub-Q susp [Active]; Novolin R Sub-Q [Active]; - PMHx: 08:54 Diabetes - IDDM; neuropathy; hb - PSHx: 08:54 Heart stents(March 2019); hb - Immunization history:: Adult Immunizations up to date. - Social history:: Smoking status: Patient/guardian denies using tobacco, Patient/guardian denies using alcohol, street drugs. - Ebola Screening: : No symptoms or risks identified at this time. - Family history:: not pertinent. ROS: 12:05 Eyes: Negative for injury, pain, redness, and discharge. ma2 12:05 Constitutional: Positive for body aches, chills, fatigue, fever, malaise, poor PO intake, Negative for weight loss. 12:05 All other systems are negative. Exam: 12:05 Constitutional: This is a well developed, well nourished patient who is awake, alert, ma2 and in no acute distress. Head/Face: Normocephalic, atraumatic. Eyes: Pupils equal round and reactive to light, extra-ocular motions intact. Lids and lashes normal. Conjunctiva and sclera are non-icteric and not injected. Cornea within normal limits. Periorbital areas with no swelling, redness, or edema. ENT: Nares patent. No nasal discharge, no septal abnormalities noted. Tympanic membranes are normal and external auditory canals are clear. Oropharynx with no redness, swelling, or masses, exudates, or evidence of obstruction, uvula midline. Mucous membranes moist. Neck: Trachea midline, no thyromegaly or masses palpated, and no cervical lymphadenopathy. Supple, full range of motion without nuchal rigidity, or vertebral point tenderness. No Meningismus. Chest/axilla: Normal chest wall appearance and motion. Nontender with no deformity. No lesions are appreciated. Cardiovascular: Regular rate and rhythm with a normal S1 and S2. No gallops, murmurs, or rubs. Normal PMI, no JVD. No pulse deficits. Respiratory: Lungs have equal breath sounds bilaterally, clear to auscultation and percussion. No rales, rhonchi or wheezes noted. No increased work of breathing, no retractions or nasal flaring. 12:05 Abdomen/GI: Soft, non-tender, with normal bowel sounds. No distension or tympany. No guarding or rebound. No evidence of tenderness throughout. MS/ Extremity: Pulses equal, no cyanosis. Neurovascular intact. Full, normal range of motion. Neuro: Awake and alert, GCS 15, oriented to person, place, time, and situation. Cranial nerves II-XII grossly intact. Motor strength 5/5 in all extremities. Sensory grossly intact. Cerebellar exam normal. Normal gait. Vital Signs: 08:54 BP 149 / 76; Pulse 119; Resp 20; Temp 104.7(TE); Pulse Ox 92% on R/A; Weight 117.93 kg; hb Height 5 ft. 11 in. (180.34 cm); Pain 5/10; 10:00 BP 136 / 68; Pulse 109; Resp 20; Temp 102.1; Pulse Ox 97% 3 lpm ; Pain 10/10; hb 11:00 BP 129 / 56; Pulse 101; Resp 18; Temp 100.7(O); Pulse Ox 96% on 3 lpm NC; Pain 3/10; hb 12:00 BP 117 / 53; Pulse 97; Resp 18; Pulse Ox 99% on 3 lpm NC; Pain 3/10; hb 12:59 BP 115 / 74; Pulse 88; Resp 17; Pulse Ox 99% on 2 lpm NC; Pain 2/10; hb 14:25 BP 146 / 53; Pulse 102; Resp 18; Temp 100.2; Pulse Ox 100% on R/A; Pain 4/10; hb 08:54 Body Mass Index 36.26 (117.93 kg, 180.34 cm) hb MDM: 08:55 Patient medically screened. ma2 12:05 Differential diagnosis: Nonspecific abd pain, gastritis, pancreatitis, appendicitis, ma2 diverticulitis, viral gastroenteritis, gastroenteritis. Data reviewed: vital signs, nurses notes. Counseling: I had a detailed discussion with the patient and/or guardian regarding: the historical points, exam findings, and any diagnostic results supporting the discharge/admit diagnosis, the presence of at least one elevated blood pressure reading (>120/80) during this emergency department visit, the need for further work-up and treatment in the hospital. Response to treatment: the patient's symptoms have markedly improved after treatment. 06/14 08:57 Order name: Blood Culture Adult (2) hb 06/14 08:57 Order name: Urine Microscopic Only hb 06/14 08:59 Order name: Sed Rate; Complete Time: 11:33 06/14 08:59 Order name: C-Reactive Protein; Complete Time: 11:33 06/14 08:59 Order name: Basic Metabolic Panel; Complete Time: 11:33 06/14 08:59 Order name: Blood Culture Adult (2) ma2 06/14 08:59 Order name: CBC with Diff; Complete Time: 11:33 ma2 06/14 08:59 Order name: Ckmb; Complete Time: 11:33 ma06/14 08:59 Order name: CPK; Complete Time: 11:33 ma06/14 08:59 Order name: Lactate; Complete Time: 10:19 ma2 06/14 08:59 Order name: LFT's; Complete Time: 11:33 ma06/14 08:59 Order name: Lipase; Complete Time: 11:33 ma06/14 08:59 Order name: Procalcitonin; Complete Time: 11:33 ma2 06/14 08:59 Order name: Protime (+inr); Complete Time: 11:06/14 08:59 Order name: Ptt, Activated; Complete Time: 11:01 ma2 06/14 08:59 Order name: Troponin (emerg Dept Use Only); Complete Time: 11:33 ma2 06/14 08:59 Order name: BNP; Complete Time: 11:33 ma2 06/14 08:57 Order name: Accucheck; Complete Time: 09:25 hb 06/14 08:59 Order name: Chest Single View XRAY; Complete Time: 11: ma2 06/14 08:59 Order name: Accucheck; Complete Time: 09:25 ma2 06/14 08:59 Order name: Cardiac monitoring; Complete Time: 09:25 ma2 06/14 08:59 Order name: EKG - Nurse/Tech; Complete Time: 09:25 ma2 06/14 08:59 Order name: IV Saline Lock - Large Bore; Complete Time: 09:25 ma2 06/14 08:59 Order name: Labs collected and sent; Complete Time: 09:26 ma2 06/14 09:11 Order name: Flu; Complete Time: 10:19 jl7 06/14 11:14 Order name: CT-ABD ; Complete Time: 12:02 EDMS 06/14 13:34 Order name: Urine Dipstick--Ancillary (enter results) bd 06/14 13:38 Order name: Urine Dipstick-Ancillary EDMS 06/14 08:59 Order name: O2 Per Protocol; Complete Time: 09:26 ma2 06/14 08:59 Order name: O2 Sat Monitoring; Complete Time: 09:26 ma2 06/14 08:59 Order name: Urine Dipstick-Ancillary (obtain specimen); Complete Time: 14:44 ma2 06/14 09:36 Order name: Labs - recollect needed; Complete Time: 10:30 bd Administered Medications: 09:10 CANCELLED (Duplicate Order): NS 0.9% (30 ml/kg) 30 ml/kg IV at bolus once; Sepsis iw Protocol 09:18 Drug: NS 0.9% (30 ml/kg) 30 ml/kg Route: IV; Rate: bolus; Site: right antecubital; hb 10:45 Follow up: Response: No adverse reaction; IV Status: Completed infusion; IV Intake: hb 3500ml 09:20 Drug: Acetaminophen 1000 mg Route: PO; hb 10:30 Follow up: Response: No adverse reaction; Temperature is decreased hb 09:20 Drug: Zofran 4 mg Route: IVP; Site: right antecubital; hb 10:00 Follow up: Response: No adverse reaction hb 10:08 Drug: morphine 4 mg Route: IVP; Site: right antecubital; hb 10:30 Follow up: Response: No adverse reaction; Pain is decreased hb 10:08 Drug: Zofran 4 mg Route: IVP; Site: right antecubital; hb 10:30 Follow up: Response: No adverse reaction hb 10:09 Drug: Rocephin 1 grams Route: IV; Rate: calculated rate; Site: right antecubital; hb 10:10 Follow up: IV Status: Completed infusion; IV Intake: 5ml hb 10:40 Follow up: Response: No adverse reaction hb 10:09 Drug: Flagyl 500 mg Volume: 100 ml; Route: IVPB; Rate: 200 ml/hr; Infused Over: 30 hb mins; Site: right antecubital; 10:40 Follow up: Response: No adverse reaction; IV Status: Completed infusion; IV Intake: hb 200ml 12:05 Drug: Zofran 4 mg Route: IVP; Site: right antecubital; jl7 12:30 Follow up: Response: No adverse reaction jl7 12:06 Drug: morphine 4 mg Route: IVP; Site: right antecubital; jl7 12:30 Follow up: Response: No adverse reaction; Pain is decreased jl7 14:04 Drug: morphine 4 mg Route: IVP; Site: right antecubital; hb 14:15 Follow up: Response: No adverse reaction; Pain is decreased jl7 14:04 Drug: Zofran 4 mg Route: IVP; Site: right antecubital; hb 14:15 Follow up: Response: No adverse reaction jl7 Disposition: 06/14/19 12:09 Hospitalization ordered by Clif Mendez for Inpatient Admission. Preliminary diagnosis are Sepsis, unspecified organism, Other specified noninfective gastroenteritis and colitis. - Bed requested for Telemetry/MedSurg (Inpatient). - Status is Inpatient Admission. hb - Condition is Stable. - Problem is new. - Symptoms are unchanged. UTI on Admission? No Signatures: Dispatcher [employer] EDDomonique Navarro Diana RN RN dw Lizette Becerril RN RN hb Yael Maldonado, RN RN jl7 Raven Lovell MD MD ne2 Larisa Horton RN iw Corrections: (The following items were deleted from the chart) 09:07 09:01 BILIRUBIN, DIRECT+C.LAB.BRZ ordered. EDMS EDMS 09:09 08:59 Chest Single View+RAD.RAD.BRZ ordered. EDMS EDMS 09:10 08:57 NS 0.9% (30 ml/kg) 30 ml/kg IV at bolus once; Sepsis Protocol ordered. hb iw 09:26 08:57 Cardiac monitoring ordered. hb hb 09:26 08:57 EKG - Nurse/Tech ordered. hb hb 09:26 08:57 Urine Dipstick-Ancillary ordered. hb hb 09:27 08:57 IV Saline Lock - Large Bore ordered. hb hb 09:27 08:57 Labs collected and sent ordered. hb hb 09:27 08:57 Oxygen Per Protocol ordered. hb hb 09:27 08:57 O2 Sat Monitoring ordered. hb hb 09:34 08:59 BASIC METABOLIC PANEL+C.LAB.BRZ ordered. EDMS EDMS 09:34 08:59 CBC+H.LAB.BRZ ordered. EDMS EDMS 09:34 08:59 CKMB+C.LAB.BRZ ordered. EDMS EDMS 09:34 08:59 CREATINE PHOSPHOKINASE+C.LAB.BRZ ordered. EDMS EDMS 09:34 08:59 LACTATE+C.LAB.BRZ ordered. EDMS EDMS 09:34 08:59 HEPATIC FUNCTION+C.LAB.BRZ ordered. EDMS EDMS 09:34 08:59 LIPASE+C.LAB.BRZ ordered. EDMS EDMS 09:34 08:59 Procalcitonin+C.LAB.BRZ ordered. EDMS EDMS 09:34 08:59 PROTIME (+INR)+COAG.LAB.BRZ ordered. EDMS EDMS 09:35 08:59 PTT, ACTIVATED+COAG.LAB.BRZ ordered. EDMS EDMS 09:35 08:59 TROPONIN (EMERG DEPT USE ONLY)+C.LAB.BRZ ordered. EDMS EDMS 09:35 09:01 UA MICROSCOPIC+U.LAB.BRZ ordered. EDMS EDMS 11:14 09:01 Abdomen Pelvis W Con+CT.RAD.BRZ ordered. [facility] EDAZ 12:08 12:08 06/14/2019 12:08 Discharged to Home. Impression: Infectious gastroenteritis and ma2 colitis, unspecified; Sepsis, unspecified organism. Condition is Stable. Forms are Medication Reconciliation Form, Thank You Letter, Antibiotic Education, Prescription Opioid Use. Follow up: Private Physician; When: Tomorrow; Reason: Continuance of care. ne2 13:56 12:09 Hospitalization Ordered by Clif Mendez DO for Inpatient Admission. Preliminary dw diagnosis is Sepsis, unspecified organism; Other specified noninfective gastroenteritis and colitis. Bed requested for Telemetry/MedSurg (Inpatient). Status is Inpatient Admission. Condition is Stable. Problem is new. Symptoms are unchanged. UTI on Admission? No. ne2 15:29 13:56 06/14/2019 12:09 Hospitalization Ordered by Clif Mendez DO for Inpatient hb Admission. Preliminary diagnosis is Sepsis, unspecified organism; Other specified noninfective gastroenteritis and colitis. Bed requested for Telemetry/MedSurg (Inpatient). Status is Inpatient Admission. Condition is Stable. Problem is new. Symptoms are unchanged. UTI on Admission? No. dw
--- NOTE | 2019-06-14 12:49 | P.HP ---
Certification for Inpatient Patient admitted to: Inpatient With expected LOS: >2 Midnights Patient will require the following post-hospital care: None Practitioner: I am a practitioner with admitting privileges, knowledge of patient current condition, hospital course, and medical plan of care. Services: Services provided to patient in accordance with Admission requirements found in Title 42 Section 412.3 of the Code of Federal Regulations Patient History Date of Service: 06/14/19 Primary Care Provider: Dr. Michael Grullon Reason for admission: Nausea, vomiting, diarrhea History of Present Illness: 54-year-old male with history of CAD with prior stent, hypertension, diabetes mellitus type 2 insulin dependent, and obesity. Patient reported being seen in the ER on 05/25/2019. He was found to have colitis at that time. He was sent home with antibiotics for 10 days. Over the past week patient has had worsening nausea, vomiting and diarrhea. Today he had fever, diarrhea. He he has not been able to keep anything down Overnite. Continued nausea, vomiting noted. In the ER patient was evaluated. Patient patient was found to be febrile with a fever of 104.7. Patient was slightly tachycardic. Blood pressures were elevated. Patient given IV fluids. On lab white count 4.9, hemoglobin 14.2. Platelet count of 246. Lactic acid normal 1.6. ESR elevated 23. Pro calcitonin elevated at 0.53. Troponin unremarkable. Sodium 135, potassium 3.7 , BUN of 18, creatinine 1.5 with a GFR 48. Glucose 306. Chest x-ray unremarkable. CT scan as reported by ER physician noted colitis otherwise no significant GI findings. Patient was admitted for further treatment. When I saw the patient ER, he appeared comfortable. Patient does not appear septic. Allergies No Known Allergies Allergy (Verified 04/03/19 15:38) Home medications list reviewed: Yes Home Medications: Amlodipine [Norvasc] 5 mg PO DAILY 04/04/19 Atorvastatin Calcium [Lipitor] 80 mg PO BEDTIME 04/04/19 Clopidogrel Bisulfate [Plavix] 75 mg PO DAILY 04/04/19 Escitalopram [Lexapro*] 20 mg PO DAILY 04/04/19 Gabapentin [Neurontin] 600 mg PO QID 04/04/19 Insulin -Regular Human [Novolin -R*] See Protocol SQ ACHS 04/04/19 Insulin NPH Human [Novolin N (Humulin N)*] 50 units SQ BIDL 04/04/19 Lisinopril [Zestril] 30 mg PO DAILY 04/04/19 Multivit-Min/FA/Lycopen/Lutein [Centrum Silver Tablet] 1 each PO DAILY 04/04/19 hydroCHLOROthiazide [Hydrochlorothiazide*] 12.5 mg PO DAILY 04/04/19 - Past Medical/Surgical History Diabetic: Yes -: Hypertension -: Diabetes mellitus type 2 insulin dependent -: CAD with prior stent -: Hyperlipidemia -: Diabetic neuropathy -: Obesity -: Stent placement -: back surgery Psychosocial/ Personal History: Patient is - Family History Family History: Reviewed- Non-Contributory - Social History Smoking Status: Never smoker Alcohol use: No CD- Drugs: No Caffeine use: Yes Place of Residence: Home Review of Systems General: Fever, Chills, As per HPI Eyes: Unremarkable ENT: Unremarkable Respiratory: Unremarkable Cardiovascular: Unremarkable Gastrointestinal: Nausea, Vomiting, Abdominal Pain, Diarrhea, As per HPI Genitourinary: Unremarkable Musculoskeletal: Unremarkable Integumentary: Unremarkable Neurological: Unremarkable Lymphatics: Unremarkable Physical Examination - Physical Exam General: Alert, In no apparent distress, Oriented x3, Cooperative HEENT: Atraumatic, Normocephalic, Other (Dry mucous membranes) Neck: Supple Respiratory: Clear to auscultation bilaterally, Normal air movement Cardiovascular: Normal pulses, Regular rate/rhythm Gastrointestinal: Normal bowel sounds, Soft and benign, Non-distended, No masses , No rebound, No guarding, Tenderness (Mild pain to the left quadrant) Musculoskeletal: No erythema, No tenderness, No warmth Integumentary: No tenderness/swelling, No erythema, No warmth, No cyanosis Neurological: Normal speech, Normal strength at 5/5 x4 extr, Normal tone, Normal affect - Studies Laboratory Data (last 24 hrs) 06/14/19 10:30: PT 14.6 H, INR 1.25, APTT 27.9 06/14/19 10:30: Sodium 135 L, Potassium 3.7, BUN 18, Creatinine 1.50 H, Glucose 306 H, Total Bilirubin 0.9, AST 37, ALT 35, Alkaline Phosphatase 87, Lipase 49 L 06/14/19 10:30: WBC 4.9, Hgb 14.2, Hct 42.6, Plt Count 246 06/14/19 08:57: PT Cancelled, INR Cancelled, APTT Cancelled 06/14/19 08:57: WBC Cancelled, Hgb Cancelled, Hct Cancelled, Plt Count Cancelled 06/14/19 08:57: Sodium Cancelled, Potassium Cancelled, BUN Cancelled, Creatinine Cancelled, Glucose Cancelled, Total Bilirubin Cancelled, AST Cancelled, ALT Cancelled, Alkaline Phosphatase Cancelled, Lipase Cancelled Microbiology Data (last 24 hrs): 06/14/19 09:28 Nasopharnyx Influenza Type A Antigen Screen - Final 06/14/19 09:28 Nasopharnyx Influenza Type B Antigen Screen - Final Assessment and Plan - Plan Impression: Left-sided abdominal pain, nausea and vomiting with diarrhea secondary to recurrent colitis Acute renal injury secondary to dehydration Diabetes mellitus type 2 insulin-dependent with hyperglycemia Hypertension CAD with prior stent Diabetic neuropathy GERD Plan: Left-sided abdominal pain, nausea and vomiting with diarrhea secondary to recurrent colitis: Patient will be admitted for further evaluation and treatment. Will continue with IV fluid hydration. Will start IV Cipro and Flagyl. Will have pharmacy monitor and adjust appropriately. Will continue monitor electrolytes. Electrolyte protocol in place. Will keep the patient NPO and reassess tomorrow. Will obtain blood cultures and stool cultures. Anticipate improvement over the next 2-4 days. Acute renal injury secondary to dehydration: Continue IV fluid hydration. Will monitor renal function. Diabetes mellitus type 2 insulin-dependent with hyperglycemia: Will monitor Accu-Cheks. Will start with a insulin sliding scale. Hypertension: Restart Norvasc. Will hold if blood pressure low. CAD with prior stent: Restart Plavix. Will provide Lovenox for DVT prophylaxis. Diabetic neuropathy: Will provide pain. Will need to restart home medication once able to take good oral intake. GERD: Will start PPI. Discharge Plan: Home Plan to discharge in: Greater than 2 days - Advance Directives Does patient have a Living Will: No Does patient have a Durable POA for Healthcare: No - Code Status/Comfort Care Code Status Assessed: Yes (Patient is full code) Time Spent Managing Pts Care (In Minutes): 55
[2019-06-14 13:37] LABS: Urine Blood NEGATIVE (NEG); Urine Glucose 2+ (NEG); Urine Protein 1+ (NEG); Urine Specific Gravity 1.015 (1.005-1.030)
[2019-06-14 13:46] LABS: Urine Bacteria <20 /HPF (NONE SEEN); Urine Culture Reflex Order NOT NEEDED; Urine Mucus SLIGHT /HPF (NONE SEEN); Urine RBC <5 /HPF (NONE SEEN)
[2019-06-14] MEDS ORDERED: SODIUM CHLORIDE 0.9% 10ML INJ IV PRN (15:44)
[2019-06-14] MEDS ORDERED: ACETAMINOPHEN 650MG/RECT SUPP PR PRN (15:44)
[2019-06-14] MEDS: INSULIN -REGULAR HUMAN 50 UNIT/0.5 ML ML SQ SCH ×2 (16:30→21:39)
[2019-06-14] MEDS: NA CHLORIDE 0.9% 1,000 ML IV SCH (17:42)
[2019-06-14] MEDS: METRONIDAZOLE 500mg IVPB 500 MG/100 ML BAG IV SCH (17:43)
--- NOTE | 2019-06-14 19:08 | RAD REPORT ---
EXAM DESCRIPTION: RAD - Abdomen 1 View (KUB) - 06/14/2019 6:58 pm CLINICAL HISTORY: colitis, enteritis, abdominal pain COMPARISON: CT-ABD PELVIS W/O CONTRAST dated 06/14/2019 FINDINGS: No gastric distention or abnormal dilatation. Air and stool are present in nondilated colo n. No small bowel dilatation. The bowel gas pattern is nonspecific. No obstruction, free air or pneum atosis. No suspicious calcifications. No significant bony findings IMPRESSION: KUB examination shows no obstruction, free air or other significant finding.
[2019-06-14] MEDS: ACETAMINOPHEN 500 MG TAB PO PRN (19:23)
[2019-06-14] MEDS: ONDANSETRON 4 MG/2 ML VIAL IV PRN (21:38)
[2019-06-14] MEDS: CIPROFLOXACIN 400mg IV 400 MG/200 ML BAG IV SCH (21:38)
[2019-06-14] MEDS: MORPHINE 2 MG/ML SYR IV PRN (21:38)
[2019-06-14] MEDS ORDERED: POTASSIUM CL SA 10 MEQ TAB PO ONE (23:30)
[2019-06-15] MEDS: ACETAMINOPHEN 500 MG TAB PO PRN
[2019-06-15] MEDS: METRONIDAZOLE 500mg IVPB 500 MG/100 ML BAG IV SCH ×3 (00:01→17:40)
[2019-06-15] MEDS ORDERED: ACETAMINOPHEN 500 MG TAB PO ONE (01:05)
[2019-06-15] MEDS ORDERED: HYDROCORTISONE SUC 100 MG INJ IV ONE (01:05)
[2019-06-15] MEDS: NA CHLORIDE 0.9% 1,000 ML IV SCH ×5 (01:44→21:44)
[2019-06-15 03:34] LABS: Urine Appearance TURBID; Urine Bilirubin NEGATIVE (NEG); Urine Blood TRACE (NEG); Urine Color YELLOW; Urine Glucose 3+ (NEG); Urine Protein 1+ (NEG); Urine Specific Gravity 1.025 (1.005-1.030); Urine Urobilinogen 0.2 mg/dL (0.2-1.0); Urine pH 5.5 (5.0-7.0)
[2019-06-15 04:38] LABS: Urine Microscopic Reflex ORDER UMIC
[2019-06-15 04:54] LABS: Urine Bacteria <20 /HPF (NONE SEEN); Urine Culture Reflex Order NOT NEEDED; Urine RBC <5 /HPF (NONE SEEN); Urine Urothelial Cells <5 /HPF (NONE SEEN)
[2019-06-15] MEDS: MORPHINE 2 MG/ML SYR IV PRN ×3 (05:49→18:36)
[2019-06-15] MEDS: ONDANSETRON 4 MG/2 ML VIAL IV PRN ×3 (05:52→23:35)
[2019-06-15] MEDS: INSULIN -REGULAR HUMAN 50 UNIT/0.5 ML ML SQ SCH ×4 (05:58→20:20)
[2019-06-15 07:31] LABS: Magnesium 1.7 mg/dL (1.8-2.4); Potassium 4.6 mmol/L (3.5-5.1)
[2019-06-15 07:46] LABS: Absolute Lymphocytes (CBC) 1.2 K/uL (0.7-4.9); Basophils % 0.4 % (0-1.3); Lymphocytes % 6.7 % (15.3-44.8); MPV 8.7 fL (7.6-11.3); RBC Red Blood Cell Count 4.64 M/uL (4.33-5.43)
[2019-06-15] MEDS: PANTOPRAZOLE 40 MG INJ IVP SCH (08:26)
[2019-06-15] MEDS: ENOXAPARIN 40 MG/0.4 ML SQ SCH (08:26)
[2019-06-15] MEDS: CLOPIDOGREL 75 MG TABLET PO SCH (08:26)
[2019-06-15] MEDS: CIPROFLOXACIN 400mg IV 400 MG/200 ML BAG IV SCH ×2 (08:26→20:20)
[2019-06-15] MEDS: AMLODIPINE 5 MG TAB PO SCH (08:26)
[2019-06-15] MEDS ORDERED: PNEUMOCOCCAL VACCINE 0.5 ML IMVAC ONE (09:00)
[2019-06-15] MEDS ORDERED: MAGNESIUM SULFATE 1 gm IVPB 1 GM/100 ML BAG IV ONE (14:59)
--- NOTE | 2019-06-15 15:39 | P.PN ---
Subjective Date of Service: 06/15/19 Primary Care Provider: Dr. Michael Grullon Chief Complaint: Nausea, vomiting, diarrhea Subjective: Improving (Pain improved. Less diarrhea.) Physical Examination - Vital Signs Temperature: 97.3 F Blood Pressure: 134/61 Pulse: 91 Respirations: 20 Pulse Ox (%): 90 - Physical Exam General: Alert, In no apparent distress, Oriented x3, Cooperative HEENT: Atraumatic Neck: Supple Respiratory: Clear to auscultation bilaterally, Normal air movement Cardiovascular: Normal pulses, Regular rate/rhythm Gastrointestinal: Normal bowel sounds, Soft and benign, Non-distended, No tenderness, No masses, No rebound, No guarding Musculoskeletal: No erythema, No tenderness, No warmth Integumentary: No tenderness/swelling, No erythema, No warmth, No cyanosis Neurological: Normal speech, Normal strength at 5/5 x4 extr, Normal tone, Normal affect - Studies Microbiology Data (last 24 hrs): 06/14/19 10:08 Blood - Blood Anaerobic Blood Culture - Final 06/14/19 09:15 Blood - Blood Anaerobic Blood Culture - Final 06/14/19 09:28 Nasopharnyx Influenza Type A Antigen Screen - Final 06/14/19 09:28 Nasopharnyx Influenza Type B Antigen Screen - Final Medications List Reviewed: Yes Assessment & Plan Discharge Plan: Home Plan to discharge in: 72 Hours Physician Review Additional Text: Impression: Left-sided abdominal pain, nausea and vomiting with diarrhea secondary to recurrent colitis Acute renal injury secondary to dehydration Diabetes mellitus type 2 insulin-dependent with hyperglycemia Hypertension CAD with prior stent Diabetic neuropathy GERD Plan: Left-sided abdominal pain, nausea and vomiting with diarrhea secondary to recurrent colitis: Patient is slowly improving. Continue IV fluid hydration. Will recheck CT scan. Continue IV Cipro and Flagyl. Will start with clear liquid diet today. Await blood cultures. Encourage ambulation. Likely discharge in the next 1-3 days. Acute renal injury secondary to dehydration: Continue IV fluid hydration. Will monitor renal function. Diabetes mellitus type 2 insulin-dependent with hyperglycemia: Will monitor Accu-Cheks. Will check A1c. Will start with a insulin sliding scale. Hypertension: Restart Norvasc. Will hold if blood pressure low. CAD with prior stent: Restart Plavix. Will provide Lovenox for DVT prophylaxis. Diabetic neuropathy: Will provide pain. Will need to restart home medication once able to take good oral intake. GERD: Continue PPI Time Spent Managing Pts Care (In Minutes): 55
[2019-06-15] MEDS ORDERED: HYDROCODONE/APAP 7.5/325 MG TAB PO PRN (15:40)
[2019-06-15] MEDS ORDERED: TRAMADOL HCL 50 MG TAB PO PRN (15:40)
[2019-06-15] MEDS ORDERED: GLUCAGON 1 MG/VIAL IM PRN (16:25)
[2019-06-15] MEDS ORDERED: D50W 25 GM/50 ML SYRINGE/VIAL IV PRN (16:25)
[2019-06-15] MEDS ORDERED: INSULIN -REGULAR HUMAN 50 UNIT/0.5 ML ML IV ONE (16:45)
--- NOTE | 2019-06-15 18:39 | RAD REPORT ---
EXAM DESCRIPTION: [place] And Lat (2 Views)06/15/2019 6:12 pm CLINICAL HISTORY: Chest pain COMPARISON: June 14, 2019 FINDINGS: Bilateral pulmonary opacities have developed. The heart is mildly enlarged IMPRESSION: Bilateral pulmonary opacities may represent pulmonary edema or pneumonia
--- NOTE | 2019-06-15 18:54 | RAD REPORT ---
EXAM DESCRIPTION: CT - Abdomen Pelvis Wo Contrast - 06/15/2019 5:58 pm CLINICAL HISTORY: Abdominal pain COMPARISON: June 14, 2019 TECHNIQUE: Computed axial tomography of the abdomen and pelvis was obtained. IV was not requested. O ral contrast was given. Coronal reconstructions performed. All CT scans are performed using dose optimization technique as appropriate and may include automated exposure control or mA/KV adjustment according to patient size. FINDINGS: The evaluation of solid organs and vessels is limited secondary to the lack of contrast a dministration. The liver, spleen, pancreas, adrenals and kidneys appear grossly normal. The wall of the cecum appears mildly thickened. There is no evidence of diverticulitis. Bibasilar lung opacities Small umbilical hernia IMPRESSION: Mild thickening of the wall of the cecum may indicate a mild colitis Bibasilar lung opacities could indicate pulmonary edema or pneumonia
[2019-06-15] MEDS: LACTOBACILLUS/ACIDOPHILUS TAB PO SCH (20:20)
[2019-06-15] MEDS: ATORVASTATIN 80 MG TAB PO SCH (20:20)
[2019-06-15] MEDS: TEMAZEPAM 15 MG CAP PO PRN (22:46)
[2019-06-16] MEDS: METRONIDAZOLE 500mg IVPB 500 MG/100 ML BAG IV SCH ×3 (01:11→18:32)
[2019-06-16] MEDS: MORPHINE 2 MG/ML SYR IV PRN ×2 (01:30→08:45)
[2019-06-16] MEDS: ACETAMINOPHEN 500 MG TAB PO PRN (03:06)
[2019-06-16 06:41] LABS: Basophils % 0.6 % (0-1.3); Hematocrit 36.7 % (39.6-49.0); Lymphocytes % 7.6 % (15.3-44.8); MPV 8.8 fL (7.6-11.3); RBC Red Blood Cell Count 4.25 M/uL (4.33-5.43)
--- NOTE | 2019-06-16 06:48 | EKG ---
Test Date: 2019-06-14 Test Time: 18:30:15 Explosive Ordnance Handler: KATHERIN MEASUREMENT RESULTS: Intervals: Rate: 110 GA: 150 QRSD: 82 QT: 302 QTc: 408 [place]: P: 62 GA: 150 QRS: 42 T: 62 INTERPRETIVE STATEMENTS: Sinus tachycardia Otherwise normal ECG Compared to ECG 06/14/2019 09:25:46 No significant changes Electronically Signed On 06-16-19 06:43:56 MEDICATION RECONCILIATION TECHNICIAN by Dale Rivera
--- NOTE | 2019-06-16 06:48 | EKG ---
Test Date: 2019-06-14 Test Time: 09:25:46 Print And Pattern Designer: CORNELIA MEASUREMENT RESULTS: Intervals: Rate: 119 SC: 146 QRSD: 74 QT: 300 QTc: 422 [place]: P: 69 SC: 146 QRS: 59 T: 70 INTERPRETIVE STATEMENTS: Sinus tachycardia Otherwise normal ECG Compared to ECG 04/05/2019 07:45:57 Sinus rhythm no longer present Electronically Signed On 06-16-19 06:43:59 CLUB LICENSEE by Dale Rievra
[2019-06-16 06:58] LABS: Magnesium 2.1 mg/dL (1.8-2.4); Potassium 4.2 mmol/L (3.5-5.1)
[2019-06-16] MEDS: ENOXAPARIN 40 MG/0.4 ML SQ SCH (08:45)
[2019-06-16] MEDS: PANTOPRAZOLE 40 MG INJ IVP SCH (08:45)
[2019-06-16] MEDS: AMLODIPINE 5 MG TAB PO SCH (08:45)
[2019-06-16] MEDS: FUROSEMIDE 40 MG/4 ML VIAL IV SCH ×3 (08:45→18:33)
[2019-06-16] MEDS: LACTOBACILLUS/ACIDOPHILUS TAB PO SCH ×2 (08:46→20:59)
[2019-06-16] MEDS: ESCITALOPRAM 20 MG TAB PO SCH (08:46)
[2019-06-16] MEDS: CLOPIDOGREL 75 MG TABLET PO SCH (08:46)
[2019-06-16] MEDS: INSULIN -REGULAR HUMAN 50 UNIT/0.5 ML ML SQ SCH ×4 (08:47→20:58)
[2019-06-16] MEDS: CIPROFLOXACIN 400mg IV 400 MG/200 ML BAG IV SCH ×2 (08:47→20:58)
[2019-06-16] MEDS: MULTIVIT W/ MINERAL TAB PO SCH (08:47)
--- NOTE | 2019-06-16 12:15 | P.PN ---
Subjective Date of Service: 06/16/19 Primary Care Provider: Dr. Michael Grullon Chief Complaint: Nausea, vomiting, diarrhea Subjective: Improving Physical Examination - Vital Signs Temperature: 99.7 F Blood Pressure: 109/52 Pulse: 95 Respirations: 18 Pulse Ox (%): 97 - Physical Exam General: Alert, Cooperative HEENT: Atraumatic Neck: Supple Respiratory: Diminished (To the bases bilateral but good air movement) Cardiovascular: Normal pulses, Regular rate/rhythm Gastrointestinal: Normal bowel sounds, Soft and benign, Non-distended, No tenderness, No masses, No rebound, No guarding Musculoskeletal: No erythema, No tenderness, No warmth Integumentary: No erythema, No warmth, No cyanosis Neurological: Normal speech, Normal strength at 5/5 x4 extr, Normal tone, Normal affect - Studies Microbiology Data (last 24 hrs): 06/14/19 10:08 Blood - Blood Anaerobic Blood Culture - Final 06/14/19 09:15 Blood - Blood Anaerobic Blood Culture - Final Medications List Reviewed: Yes Assessment & Plan Discharge Plan: Home Plan to discharge in: 48 Hours Physician Review Additional Text: Impression: Left-sided abdominal pain, nausea and vomiting with diarrhea secondary to recurrent colitis Acute renal injury secondary to dehydration likely with chronic renal disease stage III Shortness of breath suspect pulmonary edema secondary to acute on chronic diastolic CHF Diabetes mellitus type 2 insulin-dependent with hyperglycemia Hypertension CAD with prior stent Diabetic neuropathy GERD Plan: Left-sided abdominal pain, nausea and vomiting with diarrhea secondary to recurrent colitis: Patient is slowly improving. Will advance diet to full liquid. Advanced as tolerated. Continue IV Cipro and Flagyl. Await blood, urine cultures. Encourage ambulation. Anticipate discharge in the next 1-2 days. Acute renal injury secondary to dehydration likely with chronic renal disease stage III: Renal function improved. IV fluid hydration stopped yesterday. Suspect underlying CHF. Will continue 1500 cc per day fluid restriction. IV Lasix started. Shortness of breast suspect pulmonary edema secondary to acute on chronic diastolic CHF: IV fluids discontinued. IV Lasix initiated. Continue to monitor chest x-ray. Will order echocardiogram. Diabetes mellitus type 2 insulin-dependent with hyperglycemia: Blood sugar still elevated. Will adjust basal insulin for better control. Continue with aggressive sliding scale. Hypertension: Continue medication. Will adjust accordingly. CAD with prior stent: Continue medication. Will provide DVT prophylaxis. Diabetic neuropathy: Will provide pain. Will need to restart home medication once able to take good oral intake. GERD: Continue PPI Time Spent Managing Pts Care (In Minutes): 55
--- NOTE | 2019-06-16 14:48 | RAD REPORT ---
EXAM DESCRIPTION: RAD - Chest Pa And Lat (2 Views) - 06/16/2019 2:36 pm CLINICAL HISTORY: Follow up CHF COMPARISON: Chest Pa And Lat (2 Views) dated 06/15/2019 TECHNIQUE: Frontal and lateral views of the chest were obtained. FINDINGS: The lungs are underinflated. Interstitial and alveolar opacities are present in the lung f ields more so on the right. Findings are slightly worse than the prior day imaging. Heart size is p rominent and stable. Vascular engorgement is present. No enlarging pleural effusion. No acute bony fi nding noted. No aortic abnormality. IMPRESSION: CHF/volume overload pattern has progressed from prior imaging. Progression is more pronounced in the right lung field. Concurrent pneumonia is less likely but dillon ent can be monitored for symptoms.
[2019-06-16] MEDS: ONDANSETRON 4 MG/2 ML VIAL IV PRN (18:34)
[2019-06-16] MEDS ORDERED: INSULIN 70/30 100 UNITS/ML SQ ONE (20:09)
[2019-06-16] MEDS: ATORVASTATIN 80 MG TAB PO SCH (20:59)
[2019-06-16] MEDS: TEMAZEPAM 15 MG CAP PO PRN (20:59)
[2019-06-16] MEDS ORDERED: INSULIN GLARGINE 100 UNITS/ML SQ SCH ×2 (21:00)
[2019-06-17] MEDS: METRONIDAZOLE 500mg IVPB 500 MG/100 ML BAG IV SCH ×3 (00:15→17:13)
[2019-06-17] MEDS: ACETAMINOPHEN 500 MG TAB PO PRN ×2 (01:01→06:20)
[2019-06-17 05:49] LABS: Absolute Lymphocytes (CBC) 0.9 K/uL (0.7-4.9); Basophils % 0.5 % (0-1.3); Hematocrit 33.9 % (39.6-49.0); Lymphocytes % 8.4 % (15.3-44.8); RBC Red Blood Cell Count 4.02 M/uL (4.33-5.43)
[2019-06-17] MEDS: ONDANSETRON 4 MG/2 ML VIAL IV PRN ×2 (05:49→17:13)
[2019-06-17 06:03] LABS: Potassium 3.7 mmol/L (3.5-5.1)
[2019-06-17] MEDS ORDERED: POTASSIUM CL SA 10 MEQ TAB PO ONE (06:05)
[2019-06-17] MEDS ORDERED: INSULIN 70/30 100 UNITS/ML SQ ONE ×2 (06:37→19:46)
[2019-06-17] MEDS: FUROSEMIDE 40 MG/4 ML VIAL IV SCH ×2 (09:00→21:42)
[2019-06-17] MEDS ORDERED: INSULIN GLARGINE 100 UNITS/ML SQ SCH ×2 (09:00→21:00)
[2019-06-17] MEDS: INSULIN -REGULAR HUMAN 50 UNIT/0.5 ML ML SQ SCH ×4 (09:24→21:43)
[2019-06-17] MEDS: PANTOPRAZOLE 40 MG INJ IVP SCH (09:29)
[2019-06-17] MEDS: AMLODIPINE 5 MG TAB PO SCH (09:30)
[2019-06-17] MEDS: ENOXAPARIN 40 MG/0.4 ML SQ SCH (09:30)
[2019-06-17] MEDS: MULTIVIT W/ MINERAL TAB PO SCH (09:32)
[2019-06-17] MEDS: ESCITALOPRAM 20 MG TAB PO SCH (09:32)
[2019-06-17] MEDS: CLOPIDOGREL 75 MG TABLET PO SCH (09:32)
[2019-06-17] MEDS: CIPROFLOXACIN 400mg IV 400 MG/200 ML BAG IV SCH (09:32)
[2019-06-17] MEDS: LACTOBACILLUS/ACIDOPHILUS TAB PO SCH ×2 (09:33→21:42)
--- NOTE | 2019-06-17 10:41 | RAD REPORT ---
EXAM DESCRIPTION: RAD - Chest Pa And Lat (2 Views) - 06/17/2019 10:17 am CLINICAL HISTORY: follow up CHF, shortness of breath COMPARISON: Chest Pa And Lat (2 Views) dated 06/16/2019; Chest Pa And Lat (2 Views) dated 06/15/2019 TECHNIQUE: Frontal and lateral views of the chest were obtained. FINDINGS: The lungs are underinflated. Interstitial and alveolar opacities are present primarily in the central right midlung field and medial left lung base. The lateral view degraded by motion. Adjus ting for technique differences, findings are not substantially different. Heart size is normal and central vasculature is within normal limits. No pleural effusion or pneumothorax seen. No acute bon y finding noted. No aortic abnormality. IMPRESSION: Bilateral interstitial and alveolar opacification, suspected be CHF rather than pneumoni a, showing no substantial change from prior day imaging.
[2019-06-17] MEDS ORDERED: FUROSEMIDE 40 MG/4 ML VIAL IV ONE (11:00)
[2019-06-17] MEDS: Levofloxacin500mg IV 500 MG/100 ML BAG IV SCH (12:29)
--- NOTE | 2019-06-17 14:30 | P.PN ---
Subjective Date of Service: 06/17/19 Primary Care Provider: Dr. Michael Grullon Chief Complaint: Nausea, vomiting, diarrhea Subjective: Other (Patient reports stability. Still requiring high dose oxygen. Patient non compliant with CPAP at night) Physical Examination - Vital Signs Temperature: 98.5 F Blood Pressure: 131/63 Pulse: 101 Respirations: 18 Pulse Ox (%): 91 - Physical Exam General: Alert, Cooperative HEENT: Atraumatic Neck: Supple Respiratory: Diminished (Diminished bilateral but better air movement) Cardiovascular: Normal pulses, Regular rate/rhythm Gastrointestinal: Normal bowel sounds, Soft and benign, Non-distended, No tenderness, No masses, No rebound, No guarding Musculoskeletal: No erythema, No tenderness, No warmth Integumentary: No warmth, No cyanosis Neurological: Normal speech, Normal strength at 5/5 x4 extr, Normal tone - Studies Medications List Reviewed: Yes Assessment & Plan Discharge Plan: Home Plan to discharge in: 48 Hours Physician Review Additional Text: Impression: Left-sided abdominal pain, nausea and vomiting with diarrhea secondary to recurrent colitis Acute renal injury secondary to dehydration likely with chronic renal disease stage III Shortness of breath suspect pulmonary edema secondary to acute on chronic diastolic CHF Diabetes mellitus type 2 insulin-dependent with hyperglycemia Hypertension CAD with prior stent Diabetic neuropathy GERD Obstructive sleep apnea with noncompliance of CPAP Plan: Left-sided abdominal pain, nausea and vomiting with diarrhea secondary to recurrent colitis: Patient is slowly improving. Will advance diet as tolerated. Will adjust antibiotics to cover for possible pneumonia along with colitis. Additional Lasix given due to suspected acute on chronic diastolic CHF. Await echocardiogram. Cardiology and pulmonology consulted. Await further recommendations. Continue to wean off oxygen. Maintain sats above 93% . Anticipate discharge in the next 1-2 days with clinical improvement. Acute renal injury secondary to dehydration likely with chronic renal disease stage III: Renal function improved. Continue with IV fluid diuresis. IV Lasix additional 40 mg given today. Will recheck chest x-ray tomorrow. Pulmonology consulted. Shortness of breast suspect pulmonary edema secondary to acute on chronic diastolic CHF: Additional Lasix given today. Will continue monitor closely. Await echocardiogram. Pulmonology consulted for further recommendation. Compliance with CPAP at night recommended. Diabetes mellitus type 2 insulin-dependent with hyperglycemia: Blood sugar still elevated. Will adjust basal insulin for better control. Continue with aggressive sliding scale. Hypertension: Continue medication. Will adjust accordingly. CAD with prior stent: Continue medication. Will provide DVT prophylaxis. Diabetic neuropathy: Will provide pain. Will need to restart home medication once able to take good oral intake. GERD: Continue PPI Obstructive sleep apnea with noncompliance of CPAP: Will provide CPAP at night. Compliance addressed. Time Spent Managing Pts Care (In Minutes): 55
--- NOTE | 2019-06-17 21:41 | CON ---
Date of Consultation: 06/17/2019 Reason For Consultation: New onset congestive heart failure. History Of Present Illness: Ms. Webster 54-year-old known to me from previous office visits and admiss ions. In March of 2019, he underwent a heart catheterization and had proximal circumflex stent. A t that time, he had what seems like patent LAD stent, distal circumflex stent, RCA stent. He had shannon e 50% stenosis in the distal LAD and OM. I would treat it medically. He had done well from that sta ndpoint. He has a history of diabetes as well as hypertension. He came in with severe colitis with nausea, vomiting, diaphoresis. While he has been here since 06/14/2019, he underwent significant hyd ration antibiotics therapy and apparently yesterday became short of breath, hypoxic. Chest x-ray bean wed mild congestive heart failure. EKG shows sinus tachycardia. He is actually being diuresed and i s feeling slightly better, but remained hypoxic. Denied any chest pain. Denied any palpitation or s yncope. Past Medical History: As stated above. Allergies: NONE. Review of Systems: Negative. Social History: Negative. Family History: Negative. Medications: At home include Norvasc, Plavix, insulin, hydrochlorothiazide, and Neurontin. Physical Examination: Vital Signs: Today, vital signs are stable. He was afebrile. Slightly tachycardic, sinus tachycard ia. HEENT: Negative. Neck: Supple with no bruit. Chest: Reveals some few rales at the bases. Ca rdiac: Revealed a regular rhythm and rate with S4 gallops. No murmurs or rubs. Abdomen: Obese, but benign. Extremities: Revealed trace edema. Diagnostic Data: Mainly chest x-ray showed possible congestive heart failure. EKG shows sinus tachy cardia. Impression And Plan: New onset acute diastolic congestive heart failure, probably secondary to hyper tension, diabetes, coronary artery disease, and hydration. I agree with the IV Lasix. I think we ne ed to stop his hydrochlorothiazide. I think we need to stop the Norvasc and switch him to carvedilol that would be better for his congestive heart failure as well as hypertension and tachycardia. We n eed to continue his Plavix, insulin. Continue antibiotics. I agree with the echocardiogram, which i s pending for Wednesday. I will continue to follow him. I do not think we are dealing with acute coron zamzam syndrome. ORA/MODL Voice ID: [id number] Report ID: [id number]
[2019-06-17] MEDS: ATORVASTATIN 80 MG TAB PO SCH (21:42)
[2019-06-18] MEDS: ACETAMINOPHEN 500 MG TAB PO PRN (00:31)
[2019-06-18] MEDS: METRONIDAZOLE 500mg IVPB 500 MG/100 ML BAG IV SCH ×2 (00:31→08:20)
[2019-06-18] MEDS ORDERED: ALBUMIN HUMAN 25% 100 ML IV ONE ×2 (01:58→08:00)
[2019-06-18] MEDS ORDERED: FUROSEMIDE 40 MG/4 ML VIAL IV ONE (01:59)
[2019-06-18 04:02] VITALS: TEMP 98.9
[2019-06-18 05:04] VITALS: BMI 35.8
[2019-06-18 06:19] LABS: Basophils % 0.5 % (0-1.3); Hematocrit 35.4 % (39.6-49.0); Lymphocytes % 10.9 % (15.3-44.8); MPV 8.4 fL (7.6-11.3); RBC Red Blood Cell Count 4.14 M/uL (4.33-5.43)
[2019-06-18 06:28] LABS: Albumin 2.4 g/dL (3.4-5.0); Bilirubin Direct 0.4 mg/dL (0-0.2); Bilirubin Total 1.7 mg/dL (0.2-1.0); Magnesium 1.8 mg/dL (1.8-2.4); Potassium 3.5 mmol/L (3.5-5.1); Protein, Total 6.6 g/dL (6.4-8.2)
[2019-06-18] MEDS ORDERED: POTASSIUM CL SA 10 MEQ TAB PO ONE (06:39)
[2019-06-18 06:46] LABS: Arterial Blood Carboxyhemoglob 1.5 % (0-1.5); Blood O2 Saturation 89.8 % (92-98.5)
[2019-06-18] MEDS: INSULIN -REGULAR HUMAN 50 UNIT/0.5 ML ML SQ SCH ×2 (08:19→11:30)
[2019-06-18] MEDS: MULTIVIT W/ MINERAL TAB PO SCH (08:20)
[2019-06-18] MEDS: CLOPIDOGREL 75 MG TABLET PO SCH (08:20)
[2019-06-18] MEDS: ENOXAPARIN 40 MG/0.4 ML SQ SCH (08:20)
[2019-06-18] MEDS: LACTOBACILLUS/ACIDOPHILUS TAB PO SCH (08:21)
[2019-06-18] MEDS: ESCITALOPRAM 20 MG TAB PO SCH (08:21)
[2019-06-18] MEDS: PANTOPRAZOLE 40 MG INJ IVP SCH (08:21)
[2019-06-18] MEDS: FUROSEMIDE 40 MG/4 ML VIAL IV SCH (08:21)
[2019-06-18 08:24] VITALS: BP 140/58
[2019-06-18] MEDS ORDERED: MAGNESIUM SULFATE 1 gm IVPB 1 GM/100 ML BAG IV ONE (09:00)
[2019-06-18] MEDS ORDERED: INSULIN GLARGINE 100 UNITS/ML SQ SCH (09:00)
[2019-06-18 09:27] VITALS: O2SAT 94
--- NOTE | 2019-06-18 10:11 | P.DS ---
Admission Date: 06/14/19 Discharge Date: 06/18/19 Primary Care Provider: Dr. Michael Grullon Disposition: ROUTINE DISCHARGE Discharge Condition: GOOD Reason for Admission: Nausea, vomiting, diarrhea Consultations: Cardiology-Dr. Rivera Pulmonary-Dr. Andujar Procedures: CT scan: FINDINGS: The evaluation of solid organs and vessels is limited secondary to the lack of contrast administration. The liver, spleen, pancreas, adrenals and kidneys appear grossly normal. The wall of the cecum appears mildly thickened. There is no evidence of diverticulitis. Bibasilar lung opacities Small umbilical hernia IMPRESSION: Mild thickening of the wall of the cecum may indicate a mild colitis Bibasilar lung opacities could indicate pulmonary edema or pneumonia CXR: COMPARISON: Chest Pa And Lat (2 Views) dated 06/16/2019; Chest Pa And Lat (2 Views) dated 06/15/2019 TECHNIQUE: Frontal and lateral views of the chest were obtained. FINDINGS: The lungs are underinflated. Interstitial and alveolar opacities are present primarily in the central right midlung field and medial left lung base. The lateral view degraded by motion. Adjusting for technique differences, findings are not substantially different. Heart size is normal and central vasculature is within normal limits. No pleural effusion or pneumothorax seen. No acute bony finding noted. No aortic abnormality. IMPRESSION: Bilateral interstitial and alveolar opacification, suspected be CHF rather than pneumonia, showing no substantial change from prior day imaging. Medical Problem List: Left-sided abdominal pain, nausea and vomiting with diarrhea secondary to recurrent colitis Acute renal injury secondary to dehydration likely with chronic renal disease stage III Shortness of breath secondary to pulmonary edema likely acute on chronic diastolic CHF Diabetes mellitus type 2 insulin-dependent with hyperglycemia Hypertension CAD with prior stent Diabetic neuropathy GERD Obstructive sleep apnea with noncompliance of CPAP Brief History of Present Illness: 54-year-old male with history of CAD with prior stent, hypertension, diabetes mellitus type 2 insulin dependent, and obesity. Patient reported being seen in the ER on 05/25/2019. He was found to have colitis at that time. He was sent home with antibiotics for 10 days. Over the past week patient has had worsening nausea, vomiting and diarrhea. Today he had fever, diarrhea. He he has not been able to keep anything down Overnite. Continued nausea, vomiting noted. In the ER patient was evaluated. Patient patient was found to be febrile with a fever of 104.7. Patient was slightly tachycardic. Blood pressures were elevated. Patient given IV fluids. On lab white count 4.9, hemoglobin 14.2. Platelet count of 246. Lactic acid normal 1.6. ESR elevated 23. Pro calcitonin elevated at 0.53. Troponin unremarkable. Sodium 135, potassium 3.7 , BUN of 18, creatinine 1.5 with a GFR 48. Glucose 306. Chest x-ray unremarkable. CT scan as reported by ER physician noted colitis otherwise no significant GI findings. Patient was admitted for further treatment. When I saw the patient ER, he appeared comfortable. Patient does not appear septic. Hospital Course: Patient presented with left-sided abdominal pain, nausea and vomiting. Patient also reported diarrhea. This was related to recurrent colitis. Patient had been seen in the ER and sent home on antibiotic therapy. This reoccurred. Patient admitted for IV antibiotic therapy and treatment. Patient received IV fluids. During the course of his stay fluids had to be stopped due to shortness of breath. This was likely related to acute on chronic diastolic CHF. The patient was diuresed with improvement. Abdominal pain, nausea and vomiting resolved. Diarrhea also resolved. For his colitis, patient will continue with Levaquin 500 mg daily and Flagyl 500 mg 3 times a day for 7 more days. Recommend follow up with GI in 4-6 weeks to further evaluate. Patient will require colonoscopy after that time for further evaluation and treatment. Patient will also be sent home with lactobacillus 3 times a day. As mentioned above patient developed pulmonary edema related to IV fluids. Patient likely with underlying acute on chronic diastolic CHF. Patient seen and evaluated by pulmonology and Cardiology. Echocardiogram could not be performed. This can be done as an outpatient. Patient improved with diuresis. Medications adjusted from his regular regimen. Patient will no longer take hydrochlorothiazide. At discharge patient will continue with 1500 cc per day fluid restriction and low-salt diet. At discharge will recommend to discontinue hydrochlorothiazide and continue with Lasix 40 mg 1 pill twice daily. Patient is to monitor his weight daily. If his weight increases by more than 5 lb further adjustment may be required. Further adjustment in Lasix can be done by his PCP or cardiology. Recommend follow up with cardiology in 1- 2 weeks to follow up this hospitalization. Patient will need outpatient echocardiogram to confirm CHF diagnosis. Education on CHF provided. At discharge room-air saturations within normal range. Patient with history of hypertension. Patient with history of CAD and prior stent. Patient seen by Cardiology. Medications have been adjusted. At discharge Norvasc, hydrochlorothiazide and lisinopril have been discontinued. At discharge, Patient will continue with carvedilol 12.5 mg 1 pill twice daily for Hypertension. At discharge patient will continue with Plavix 75 mg daily, aspirin 81 mg daily, and Lipitor 80 mg daily for his CAD. He is to monitor blood pressures daily. If his blood pressures remain elevated greater than 150/ 90 then additional medication like lisinopril can be added for better blood pressure control. Recommend follow up with cardiology in 1-2 weeks to follow up this hospitalization. Further adjustment in medication can be done by cardiology or his PCP. Patient with diabetes mellitus type 2 insulin dependent with hyperglycemia. Patient received IV insulin during the course of his stay. At discharge patient will continue with his regimen of insulin NPH 50 units twice daily and Humalog sliding scale. Recommend to maintain blood sugars less 140 fasting and less than 200 after meals. If his blood sugars remained elevated, his insulin will need to be adjusted. Further adjustment can be done by his PCP. Will recommend basal insulin like Levemir or Lantus in the future. This can be further addressed by PCP. Patient may benefit with endocrinology evaluation as an outpatient. Patient with diabetic neuropathy. At discharge patient may continue with Neurontin 600 mg 4 times a day. Further adjustment may be required. This can be further addressed by his PCP. Patient with depression. At discharge he will continue with Lexapro 20 mg daily. Patient with obstructive sleep apnea non compliant with CPAP. Patient seen by pulmonology. Will recommend follow up with pulmonology so that the patient may possibly get a new CPAP machine and mask for better control. Vital Signs/Physical Exam: Temp Pulse Resp BP Pulse Ox 98.9 F 96 H 27 H 140/58 L 100 06/18/19 04:00 06/18/19 08:21 06/18/19 04:00 06/18/19 08:21 06/18/19 04:00 General: Alert, In no apparent distress, Oriented x3, Cooperative HEENT: Atraumatic Neck: Supple Respiratory: Clear to auscultation bilaterally, Normal air movement Cardiovascular: Normal pulses, Regular rate/rhythm Gastrointestinal: Normal bowel sounds, Soft and benign, Non-distended, No ascites, No tenderness, No masses, No rebound, No guarding Musculoskeletal: No contractures, No erythema, No tenderness, No warmth Integumentary: No tenderness/swelling, No erythema, No warmth, No cyanosis Neurological: Normal speech, Normal strength at 5/5 x4 extr, Normal tone Laboratory Data at Discharge: WBC 9.3 K/uL (4.3-10.9) 06/18/19 05:52 Hgb 12.0 g/dL (13.6-17.9) L 06/18/19 05:52 Hct 35.4 % (39.6-49.0) L 06/18/19 05:52 Plt Count 256 K/uL (152-406) 06/18/19 05:52 PT 14.6 SECONDS (9.5-12.5) H 06/14/19 10:30 INR 1.25 06/14/19 10:30 APTT 27.9 SECONDS (24.3-36.9) 06/14/19 10:30 Sodium 137 mmol/L (136-145) 06/18/19 05:52 Potassium 3.5 mmol/L (3.5-5.1) 06/18/19 05:52 BUN 22 mg/dL (7-18) H 06/18/19 05:52 Creatinine 1.17 mg/dL (0.55-1.3) 06/18/19 05:52 Glucose 354 mg/dL (74-106) H 06/18/19 05:52 Magnesium 1.8 mg/dL (1.8-2.4) 06/18/19 05:52 Total Bilirubin 1.7 mg/dL (0.2-1.0) H 06/18/19 05:52 AST 23 U/L (15-37) 06/18/19 05:52 ALT 21 U/L (12-78) 06/18/19 05:52 Alkaline Phosphatase 68 U/L (45-117) 06/18/19 05:52 Lipase 49 U/L (73-393) L 06/14/19 10:30 Home Medications: Atorvastatin Calcium [Lipitor] 80 mg PO BEDTIME 04/04/19 Clopidogrel Bisulfate [Plavix*] 75 mg PO DAILY 04/04/19 Escitalopram [Lexapro*] 20 mg PO DAILY 04/04/19 Gabapentin [Neurontin] 600 mg PO QID 04/04/19 Insulin -Regular Human [Novolin -R*] See Protocol SQ ACHS 04/04/19 Insulin NPH Human [Novolin N (Humulin N)*] 50 units SQ BIDL 04/04/19 Multivit-Min/FA/Lycopen/Lutein [Centrum Silver Tablet] 1 each PO DAILY 04/04/19 Aspirin [Aspirin EC 81 MG] 81 mg PO DAILY #30 tablet. 06/18/19 Carvedilol [Coreg] 12.5 mg PO BID #60 tablet 06/18/19 Furosemide [Lasix] 40 mg PO BIDL #60 tab 06/18/19 Lactobacillus Acidophilus [Acidophilus Lactobacilli] 1 each PO TID #90 capsule 06/18/19 Levofloxacin [Levaquin] 500 mg PO DAILY #7 tablet 06/18/19 metroNIDAZOLE [Flagyl] 500 mg PO Q8H #21 tablet 06/18/19 New Medications: Aspirin [Aspirin EC 81 MG] 81 mg PO DAILY #30 tablet. Carvedilol [Coreg] 12.5 mg PO BID #60 tablet Furosemide [Lasix] 40 mg PO BIDL #60 tab Lactobacillus Acidophilus [Acidophilus Lactobacilli] 1 each PO TID #90 capsule Levofloxacin [Levaquin] 500 mg PO DAILY #7 tablet metroNIDAZOLE [Flagyl] 500 mg PO Q8H #21 tablet Patient Discharge Instructions: 1. Recommend follow up with PCP in 1 week to follow up this hospitalization. 2. Patient presented with left-sided abdominal pain, nausea and vomiting. Patient also reported diarrhea. This was related to recurrent colitis. Patient had been seen in the ER and sent home on antibiotic therapy. This reoccurred. Patient admitted for IV antibiotic therapy and treatment. Patient received IV fluids. During the course of his stay fluids had to be stopped due to shortness of breath. This was likely related to acute on chronic diastolic CHF. The patient was diuresed with improvement. Abdominal pain, nausea and vomiting resolved. Diarrhea also resolved. For his colitis, patient will continue with Levaquin 500 mg daily and Flagyl 500 mg 3 times a day for 7 more days. Recommend follow up with GI in 4-6 weeks to further evaluate. Patient will require colonoscopy after that time for further evaluation and treatment. Patient will also be sent home with lactobacillus 3 times a day. 3. As mentioned above patient developed pulmonary edema related to IV fluids. Patient likely with underlying acute on chronic diastolic CHF. Patient seen and evaluated by pulmonology and Cardiology. Echocardiogram could not be performed. This can be done as an outpatient. Patient improved with diuresis. Medications adjusted from his regular regimen. Patient will no longer take hydrochlorothiazide. At discharge patient will continue with 1500 cc per day fluid restriction and low- salt diet. At discharge will recommend to discontinue hydrochlorothiazide and continue with Lasix 40 mg 1 pill twice daily. Patient is to monitor his weight daily. If his weight increases by more than 5 lb further adjustment may be required. Further adjustment in Lasix can be done by his PCP or cardiology. Recommend follow up with cardiology in 1-2 weeks to follow up this hospitalization. Patient will need outpatient echocardiogram to confirm CHF diagnosis. Education on CHF provided. At discharge room-air saturations within normal range. 4. Patient with history of hypertension. Patient with history of CAD and prior stent. Patient seen by Cardiology. Medications have been adjusted. At discharge Norvasc, hydrochlorothiazide and lisinopril have been discontinued. At discharge, Patient will continue with carvedilol 12.5 mg 1 pill twice daily for Hypertension. At discharge patient will continue with Plavix 75 mg daily, aspirin 81 mg daily, and Lipitor 80 mg daily for his CAD. He is to monitor blood pressures daily. If his blood pressures remain elevated greater than 150/90 then additional medication like lisinopril can be added for better blood pressure control. Recommend follow up with cardiology in 1-2 weeks to follow up this hospitalization. Further adjustment in medication can be done by cardiology or his PCP. 5. Patient with diabetes mellitus type 2 insulin dependent with hyperglycemia. Patient received IV insulin during the course of his stay. At discharge patient will continue with his regimen of insulin NPH 50 units twice daily and Humalog sliding scale. Recommend to maintain blood sugars less 140 fasting and less than 200 after meals. If his blood sugars remained elevated, his insulin will need to be adjusted. Further adjustment can be done by his PCP. Will recommend basal insulin like Levemir or Lantus in the future. This can be further addressed by PCP. Patient may benefit with endocrinology evaluation as an outpatient. 6. Patient with diabetic neuropathy. At discharge patient may continue with Neurontin 600 mg 4 times a day. Further adjustment may be required. This can be further addressed by his PCP. 7. Patient with depression. At discharge he will continue with Lexapro 20 mg daily. 8. Patient with obstructive sleep apnea non compliant with CPAP. Patient seen by pulmonology. Will recommend follow up with pulmonology so that the patient may possibly get a new CPAP machine and mask for better control. Diet: ADA Activity: Fall precautions Time spent managing pt's care (in minutes): 55
--- NOTE | 2019-06-18 10:27 | P.CNS ---
Date of Consult: 06/18/19 Primary Care Provider: Dr. Michael Grullon Chief Complaint: Respiratory failure noncompliance with CPAP History of Present Illness: Patient is 54 years of age with metabolic syndrome recent stent placement was admitted with colitis abdominal complaints had some diarrhea as found to be hypoxic doing much better came to the emergency room May 25 was treated with 10 days of antibiotics became worse and Jun review patient is non compliant with his CPAP denies smoking is not on any oxygen a bronchodilators patient was hypoxic on admission interstitial lung disease on chest x-ray. Feeling better schedule for discharge Allergies No Known Allergies Allergy (Verified 04/03/19 15:38) Home Medications: Atorvastatin Calcium [Lipitor] 80 mg PO BEDTIME 04/04/19 Clopidogrel Bisulfate [Plavix*] 75 mg PO DAILY 04/04/19 Escitalopram [Lexapro*] 20 mg PO DAILY 04/04/19 Gabapentin [Neurontin] 600 mg PO QID 04/04/19 Insulin -Regular Human [Novolin -R*] See Protocol SQ ACHS 04/04/19 Insulin NPH Human [Novolin N (Humulin N)*] 50 units SQ BIDL 04/04/19 Multivit-Min/FA/Lycopen/Lutein [Centrum Silver Tablet] 1 each PO DAILY 04/04/19 Aspirin [Aspirin EC 81 MG] 81 mg PO DAILY #30 tablet. 06/18/19 Carvedilol [Coreg] 12.5 mg PO BID #60 tablet 06/18/19 Furosemide [Lasix] 40 mg PO BIDL #60 tab 06/18/19 Lactobacillus Acidophilus [Acidophilus Lactobacilli] 1 each PO TID #90 capsule 06/18/19 Levofloxacin [Levaquin] 500 mg PO DAILY #7 tablet 06/18/19 metroNIDAZOLE [Flagyl] 500 mg PO Q8H #21 tablet 06/18/19 - Past Medical/Surgical History Diabetic: Yes -: Hypertension -: Diabetes mellitus type 2 insulin dependent -: CAD with prior stent -: Hyperlipidemia -: Diabetic neuropathy -: Obesity -: Sleep apnea noncompliant -: Stent placement -: back surgery Psychosocial/ Personal History: Patient is - Family History Father Medical History: Heart disease Mother Medical History: Heart disease - Social History Alcohol use: No CD- Drugs: No Caffeine use: Yes Place of Residence: Home Review of Systems 10-point ROS is otherwise unremarkable General: Weakness Respiratory: Shortness of Breath Gastrointestinal: Diarrhea Physical Examination Temp Pulse Resp BP Pulse Ox 98.9 F 96 H 27 H 140/58 L 100 06/18/19 04:00 06/18/19 08:21 06/18/19 04:00 06/18/19 08:21 06/18/19 04:00 General: Alert, In no apparent distress, Oriented x3 Neck: Supple Respiratory: Clear to auscultation bilaterally, Friction rub Cardiovascular: Regular rate/rhythm Gastrointestinal: Normal bowel sounds, Soft and benign Musculoskeletal: No clubbing, No swelling Integumentary: No rashes, No breakdown - Problems (1) Respiratory failure Current Visit: Yes Status: Acute Plan: Patient is 54 years of age with metabolic syndrome significant history of coronary artery disease admitted with hypoxemia abdominal complaints colitis as x-ray showed bilateral interstitial changes most likely heart failure seen by Cardiology mention of new onset of diastolic dysfunction initially white count was elevated now normal agree with diuretics he has a history of obstructive sleep apnea needs to follow up with me as an outpatient and will revaluate he is doing much better chest x-ray has improved saturation satisfactory patient is never smoked exposed to secondhand smoke from his who smokes 2 packs a day agree with discharge patient had a cardiac CT done on April 01 with a stent placement no echocardiogram Qualifiers: Chronicity: acute Respiratory failure complication: hypoxia Qualified Code(s): J96.01 - Acute respiratory failure with hypoxia
[2019-06-18] MEDS: Levofloxacin500mg IV 500 MG/100 ML BAG IV SCH (11:00)
--- NOTE | 2019-06-18 11:47 | RAD REPORT ---
EXAM DESCRIPTION: RAD - Chest Single View - 06/18/2019 12:10 am CLINICAL HISTORY: tachypnea Chest pain. COMPARISON: Chest Pa And Lat (2 Views) dated 06/17/2019; Chest Pa And Lat (2 Views) dated 06/16/2019; Ch est Pa And Lat (2 Views) dated 06/15/2019; Abdomen 1 View (KUB) dated 06/14/2019 FINDINGS: Portable technique limits examination quality. Moderate bilateral pulmonary opacities are noted, likely representing pulmonary edema or pneumonia, s lightly improved since most recent comparative study. The heart is mildly enlarged in size.
--- NOTE | 2019-06-18 12:01 | RAD REPORT ---
EXAM DESCRIPTION: RAD - Chest Pa And Lat (2 Views) - 06/18/2019 8:40 am CLINICAL HISTORY: Follow up CHF Chest pain. COMPARISON: Chest Single View dated 06/18/2019; Chest Pa And Lat (2 Views) dated 06/17/2019; Chest Pa An d Lat (2 Views) dated 06/16/2019; Chest Pa And Lat (2 Views) dated 06/15/2019 FINDINGS: Mild improvement is seen bilateral pulmonary opacities since the comparative study. The he art is upper limit normal in size. No displaced fractures. Old bilateral rib fracture seen. IMPRESSION: Mild improvement in lung aeration is seen since the comparative examination.
[2019-06-18] MEDS ORDERED: carvediloL 3.125 MG TAB PO SCH (18:00)
--- NOTE | 2019-06-20 16:44 | EKG ---
Test Date: 2018-06-17 Test Time: 23:44:00 Piercing Machine Operator: RT Lugo MEASUREMENT RESULTS: Intervals: Rate: 94 WY: 162 QRSD: 108 QT: 360 QTc: 450 [place]: P: 66 W[place]: 162 QRS: 65 T: 50 INTERPRETIVE STATEMENTS: Normal sinus rhythm Minimal voltage criteria for LVH, may be normal variant Borderline ECG Cardioserver Error - Incorrect date on EKG This EKG was performed on 06-17-2019 Compared to ECG 06/15/2018 16:20:43 Left ventricular hypertrophy now present Electronically Signed On 06-20-19 16:41:18 DIRECTOR OF GRADUATE ADMISSIONS by Dale Rivera
--- NOTE | 2019-06-20 16:46 | EKG ---
Test Date: 2018-06-15 Test Time: 16:20:43 Facs Teacher: RT Choi MEASUREMENT RESULTS: Intervals: Rate: 96 [place]: 160 QRSD: 88 QT: 334 QTc: 421 [place]: P: 52 [place]: 160 QRS: 36 T: 34 INTERPRETIVE STATEMENTS: Normal sinus rhythm Normal ECG Cardioserver Error - Incorrect date on EKG This EKG was performed on 06-15-2019 Compared to ECG 03/03/2011 22:44:19 Left ventricular hypertrophy no longer present Electronically Signed On 06-20-19 16:41:54 PAPER SHEETER by Dale Rivera
== END 2019-06-18 12:00 | disposition home or self-care (01) | DRG 385 ==
LOC: ER 08:50 → ERHOLD 12:34 → 4TH 14:27
PROVIDERS: ADMIT Family Medicine; ATTEND Family Medicine
PROC: 5A09457 Assistance with Respiratory Ventilation, 24-96 Consecutive Hours, Continuous Positive Airway Pressure (ICD-10-PCS; principal; 2019-06-15)
DX: K51.50 Left sided colitis without complications (principal); I50.33 Acute on chronic diastolic (congestive) heart failure; J96.01 Acute respiratory failure with hypoxia; N17.9 Acute kidney failure, unspecified; E11.65 Type 2 diabetes mellitus with hyperglycemia; I25.10 Atherosclerotic heart disease of native coronary artery without angina pectoris; E11.40 Type 2 diabetes mellitus with diabetic neuropathy, unspecified; K21.9 Gastro-esophageal reflux disease without esophagitis; N18.3 Chronic kidney disease, stage 3 (moderate); I11.0 Hypertensive heart disease with heart failure; G47.33 Obstructive sleep apnea (adult) (pediatric); Z77.22 Contact with and (suspected) exposure to environmental tobacco smoke (acute) (chronic); Z91.19 Patient's noncompliance with other medical treatment and regimen
CPT/HCPCS: 36415; 71045; 71046; 74018; 74176; 80048; 80076; 81003; 81015; 82550; 82553; 82805; 82947; 83036; 83605; 83690; 83735; 83880; 84145; 84484; 85025; 85610; 85652; 85730; 86140; 87040; 87804; 93005; 94660; 94760; 96365; 96375; 97116; 97161; 99285; C9113; J0696; J0744; J1650; J1720; J1815; J1940; J2270; J2405; J3475; J7030; P9047

== ENCOUNTER 2020-11-30 06:30 | Emergency (ER) | payer MEDICARE ==
--- OUTSIDE RECORDS SUMMARY | 2020-11-30 06:34 | XMS REPORT | Continuity of Care Document ---
:1965 Author Organization [facility] t Address [address] [place] [address] Care Team Providers Name Role Phone Radiology Attending Clinician Unavailable Doctor Unassigned, Name Attending Clinician Unavailable Problems This patient has no known problems. Allergies, Adverse Reactions, Alerts This patient has no known allergies or adverse reactions. Medications Ordered Filled Start Stop Current Ordering Indication Dosage Frequency Signature Comments Components Source Medication Medication Date Date Medication? Clinician (SIG) Name Name Cait Guardado 2018- Yes Michael per [facility] 1[facility]04 [facility] sliding [facility]: [facility] 2 [facility] 00 units - 28 l units Outpat[facility] ent Clinics OneTouch OneTouch Yes Michael USE TO [facility] Ultra Test Ultra Test Grullon CHECK [facility] - BLOOD [facility] SUGAR FOUR l TIMES A Outpati DAY ent Clinics Amlodipine Amlodipine Yes Michael TAKE [address] [facility] Besylate Besylate [facility] TABLET BY [facility] - MOUTH ONCE [facility] A DAY l Outpati ent Clinics Hydrochloro Hydrochloro Yes Michael TAKE [address] [facility] thiazide thiazide [place] TABLET BY [facility] - MOUTH ONCE [facility] A DAY IN l THE Outpati MORNING ent Clinics Neurontin Neurontin Yes Michael [address] [facility] Novolin N Novolin N Yes Michael [address] [facility]ics Escitalopra Escitalopra Yes Michael [address] [facility] m Oxalate m Oxalate [facility] Coreg Coreg Yes Michael [address] [facility] NovoLog NovoLog Yes Michael sliding [facility] scale 36 [facility] OneTouch OneTouch Yes Michael TEST BLOOD [facility] Ultra Test Ultra Test Gr[facility] GLUCOSE [facility] FOUR TIMES [facility] ProAir HFA ProAir HFA Yes Michael [address] [facility] needed [facility] Lipitor Lipitor Yes Michael [address] [facility] Gabapentin Gabapentin Yes Michael [address] [facility] Furosemide Furosemide Yes Michael [address] [facility] Lisinopril Lisinopril Yes Michael TAKE [address] [facility] [place] TABLET BY [facility]TH ONCE [facility] Lexapro Lexapro Yes Michael [facility]KE 1 [facility] TABLET BY [facility]CE [facility] Plavix Plavix Yes Michael TAKE [address] [facility] [place] TABLET BY [facility] Plavix Plavix Yes Michael 1 tablet [facility] Procedures This patient has no known procedures. Encounters Start End Encounter Admission Attending Care Care Encounter Source Date/Time Date/Time Type Type Clinicians Facility Department ID 2020-11-18 2020-11-18 Outpatient [facility] [id number] [facility] 2020-11-05 2020-11-05 Outpatient [facility] [id number] [facility] 2020-11-04 2020-11-04 Outpatient [facility] [id number] [facility] 2020-10-25 2020-10-25 Outpatient [facility] [id number] [facility] 2020-10-16 2020-10-16 Outpatient [facility] [id number] [facility] 2020-10-15 2020-10-15 Out[facility] [id number] [facility] 2020-10-15 2020-10-15 Out[facility] [id number] [facility] 2020-09-26 2020-09-26 Out[facility] [id number] [facility] 2020-08-28 2020-08-28 Out[facility] [id number] [facility] 2020-08-27 2020-08-27 Out[facility] [id number] [facility] 2020-05-14 2020-05-14 Out[facility] [id number] [facility] 2020-05-06 2020-05-06 Outpatient [facility] [id number] [facility] 2020-04-11 2020-04-11 [facility] Radiology [facility] [id number] 10:11:59 23:59:00 Encounter [place] [id number] [place] [id number] [place] [id number] 2020-04-11 2020-04-11 [facility] Radiology [facility] [id number] 10:11:08 23:59:00 Encounter [place] [id number] [place] [id number] [place] [id number] 2020-04-11 2020-04-11 Elio RIVAS [id number] 00:00:00 00:00:00 Only Unassigned, KAMALJIT [id number] [facility] [id number] 2020-02-07 2020-02-07 [facility] [id number] [address] 11:20:00 11:20:00 [facility] [employer] - Drive [facility] Medicine l Medicine Outpati ent Clinics 2020-01-29 2020-01-29 [facility] [id number] 11[facility]40:00 11:40:00 t [employer] - Drive [facility] Medicine l Medicine Outpati ent Clinics 2020-01-16 2020-01-16 [facility] [id number] [facility] 11[facility]15:00 11:15:00 t [place] s - Drive [facility] Medicine l Medicine Outpati ent Clinics 2019-12-04 2019-12-04 [facility] [id number] [address] 10:50:00 10:50:00 t [employer] - Drive [facility] Medicine l Medicine Outpati ent Clinics 2019-11-08 2019-11-08 [facility] [id number] [facility] 15:00:00 15:00:00 [place] - Drive [facility] Medicine l Medicine Outpati ent Clinics 2019-11-08 2019-11-08 [facility] [id number] [facility] 14[facility]15:00 14:15:00 t [employer] - Drive [facility] Medicine l Medicine Outpati ent Clinics 2019-10-27 2019-10-27 [facility] [id number] 11[facility]15:00 11:15:00 [place] - Drive [facility] Medicine l Medicine Outpati ent Clinics 2019-10-24 2019-10-24 [facility] [id number] 16:04:00 16:04:00 [employer] [facility] - Road [facility] l Medicine Outpati ent Clinics 2019-10-20 2019-10-20 [facility] [id number] [address] 13:40:00 13:40:00 [facility] - Road [facility] Medicine l Medicine Outpati ent Clinics 2019-10-18 2019-10-18 [facility] [id number] 14:05:00 14:05:00 t [employer] - Drive [facility] Medicine l Medicine Outpati ent Clinics 2019-09-21 2019-09-21 [facility] [id number] 16:45:00 16:45:00 t [employer] - Drive [facility] Medicine l Medicine Outpati ent Clinics 2019-09-05 2019-09-05 [facility] [id number] 10:30:00 10:30:00 t [employer] - Drive [facility] l Medicine Outpati ent Clinics 2019-08-08 2019-08-08 [facility] [id number] 15:00:00 15:00:00 t [employer] - Drive [facility] Medicine Medicine Outpati ent Clinics 2019-07-26 2019-07-26 [facility] [id number] [facility] 16:37:00 16:37:00 t [employer] - Drive [facility] Medicine l Medicine Outpati ent Clinics 2019-06-22 2019-06-22 [facility] [id number] 14[facility]45:00 14:45:00 t [employer] - Drive [facility] l Medicine Outpati ent Clinics 2019-06-19 2019-06-19 [facility] [id number] 15:45:00 15:45:00 t [employer] s - Drive [facility] Medicine l Medicine Outpati ent Clinics 2019-05-31 2019-05-31 [facility] [id number] 15:15:00 15:15:00 t [employer] - Drive [facility] l Medicine Outpati ent Clinics 2019-05-03 2019-05-03 [facility] [id number] 10:37:00 10:37:00 t [employer] - Drive [facility] Medicine Outpati ent Clinics 2019-04-17 2019-04-17 [facility] [id number] [facility] 14:08:00 14:08:00 [address] [employer] [address] [facility] s - Drive [facility] Family Medicine l Medicine Outpati ent Clinics 2019-04-17 2019-04-17 [facility] [id number] 13:30:00 13:30:00 [address] [employer] [facility] [employer] [address] [facility] s - Drive [facility] Medicine l Medicine Outpati ent Clinics 2019-03-28 2019-03-28 [facility] [id number] [facility] 14:44:00 14:44:00 [address] [employer] [facility] [employer] [address] [facility] s - Drive [facility] Medicine l Medicine Outpati ent Clinics 2019-03-23 2019-03-23 [facility] [id number] 14:15:00 14:15:00 [address] [employer] [facility] [address] [facility] s - Drive [facility] Medicine l Medicine Outpati ent Clinics 2019-03-02 2019-03-02 [facility] [id number] 15:10:00 15:10:00 [address] [employer] [facility] [employer] [address] [facility] s - Drive [facility] Medicine l Medicine Outpati ent Clinics 2019-02-23 2019-02-23 [facility] [id number] 10:00:00 10:00:00 [facility] [employer] [facility] [employer] [address] [facility] s - Drive [facility] Medicine l Medicine Outpati ent Clinics 2019-01-20 2019-01-20 [facility] [id number] 13:43:00 13:43:00 [address] [employer] [facility] [employer] [address] [facility] s - Drive [facility] Medicine l Medicine Outpati ent Clinics 2018-12-29 2018-12-29 [facility] [id number] [facility] 14:42:00 14:42:00 [address] [employer] [facility] [employer] [address] [facility] s - Drive [facility] Medicine l Medicine Outpati ent Clinics 2018-12-21 2018-12-21 [facility] [id number] 14:30:00 14:30:00 [facility] [employer] [facility] [employer] [address] [facility] s - Drive [facility] Medicine l Medicine Outpati ent Clinics 2018-12-06 2018-12-06 [facility] [id number] 14:04:00 14:04:00 [address] [employer] [facility] [employer] [address] [facility] s - Drive [facility] Medicine l Medicine Outpati ent Clinics 2018-10-10 2018-10-10 [facility] [id number] [facility] 15:00:00 15:00:00 [facility] [employer] [facility] [employer] [address] [facility] s - Drive [facility] Medicine l Medicine Outpati ent Clinics 2018-09-16 2018-09-16 [facility] [id number] 11:25:00 11:25:00 [address] [employer] [facility] [address] [facility] s - Drive [facility] Medicine l Medicine Outpati ent Clinics 2018-09-12 2018-09-12 [facility] [id number] [facility] 14:15:00 14:15:00 [address] [employer] [facility] [employer] [address] [facility] s - Drive [facility] Medicine l Medicine Outpati ent Clinics 2018-08-11 2018-08-11 [facility] [id number] 13:45:00 13:45:00 [address] [employer] [facility] [employer] [address] [facility] s - Drive [facility] Medicine l Medicine Outpati ent Clinics 2018-06-21 2018-06-21 [facility] [id number] 10:15:00 10:15:00 [facility] [employer] [facility] [employer] [address] [facility] s - Drive [facility] Medicine l Medicine Outpati ent Clinics 2018-05-30 2018-05-30 [facility] [id number] 10:28:00 10:28:00 [address] [employer] [facility] [employer] [address] [facility] s - Drive [facility] Medicine l Medicine Outpati ent Clinics 2018-03-16 2018-03-16 [facility] [id number] [facility] 15:07:00 15:07:00 [address] [employer] [facility] [employer] [address] [facility] s - Drive [facility] Medicine l Medicine Outpati ent Clinics 2018-03-14 2018-03-14 [facility] [id number] 15:00:00 15:00:00 [address] [employer] [facility] [address] [facility] s - Drive [facility] Medicine l Medicine Outpati ent Clinics 2018-02-28 2018-02-28 [facility] [id number] 16:46:00 16:46:00 [address] [employer] [facility] [address] [facility] s - Drive [facility] Medicine l Medicine Outpati ent Clinics 2018-02-11 2018-02-11 [facility] [id number] [facility] 09:17:00 09:17:00 [address] [employer] [address] [facility] [facility] s - Drive [facility] Medicine Outpati ent Clinics 2018-02-04 2018-02-04 [facility] [id number] 14:14:00 14:14:00 t [employer] - Drive [facility] Medicine Outpati ent Clinics 2018 2018 [facility] [id number] 15:57:00 15:57:00 t [employer] [facility] Medicine Outpati ent Clinics 2018-01-12 2018-01-12 [facility] [id number] 14:34:00 14:34:00 t [employer] [facility] Medicine Outpati ent Clinics 2018-01-10 2018-01-10 [facility] [id number] 15:15:00 15:15:00 t [employer] [employer] [facility] Medicine Outpati ent Clinics 2017-11-22 2017-11-22 [facility] [id number] 09:36:00 09:36:00 t [employer] [facility] Medicine Outpati ent Clinics 2017-11-10 2017-11-10 [facility] [id number] 13:30:00 13:30:00 t [employer] [facility] Medicine Outpati ent Clinics 2017-09-29 2017-09-29 [facility] [id number] 13:00:00 13:00:00 [place] [employer] [facility] Medicine Outpati ent Clinics Results This patient has no known results.
[2020-11-30] MEDS ORDERED: LIDOCAINE 1% MPF 5 ML VIAL ONE (07:14)
[2020-11-30] MEDS ORDERED: TETANUS & DIPHTHERIA TOX,ADULT 0.5 ML VIAL ONE (07:15)
[2020-11-30] MEDS ORDERED: ONDANSETRON 4 MG (ODT) TAB ONE (07:25)
--- NOTE | 2020-11-30 07:41 | RAD REPORT ---
EXAM DESCRIPTION: CT - Head C Spine Mpr Wo Con - 11/30/2020 7:27 am CLINICAL HISTORY: Head and neck injury status post fall. Head and neck pain COMPARISON: None. TECHNIQUE: Computed axial tomography of the head and cervical spine was obtained. Sagittal and coronal reconstruction was performed. All CT scans are performed using dose optimization technique as appropriate and may include automated exposure control or mA/KV adjustment according to patient size. FINDINGS: An intracranial bleed is not seen. The ventricles are normal in caliber. An extra-axial fl uid collection is not noted.Fluid within the visualized sinuses and mastoids is not seen A cervical fracture is not visualized. No dislocation is noted. A 1 centimeter lucency is present wit hin the C3 vertebral body IMPRESSION: No acute intracranial abnormality is seen. A cervical fracture is not visualized. 1 centimeter lucency within the C3 vertebral body is nonspecific. Further evaluation with bone scan c ould be obtained. If the patient continues to have symptoms to suggest intracranial /spinal cord pathology then MRI wou ld be recommended
--- NOTE | 2020-11-30 07:45 | RAD REPORT ---
EXAM DESCRIPTION: CT - Facial Bones W/ Mpr - 11/30/2020 7:27 am CLINICAL HISTORY: Facial injury status post fall. Facial pain COMPARISON: None TECHNIQUE: Computed axial tomography of the face was obtained. Coronal and sagittal reconstruction w as performed. All CT scans are performed using dose optimization technique as appropriate and may include automated exposure control or mA/KV adjustment according to patient size. FINDINGS: Tiny chip fracture involves the nasal spine of the maxilla. A TMJ dislocation is not noted. The globes are intact. Fluid within the sinuses is not seen. IMPRESSION: Tiny chip fracture involves the nasal spine of the maxilla
[2020-11-30] MEDS ORDERED: DERMABOND SKIN ADHESIVE TOP ONE (08:28)
--- NOTE | 2020-11-30 08:37 | EDPHYS ---
Physician Documentation [facility] Name: Tripp Webster Age: 55 yrs Sex: Male : 1965 Arrival Date: 11/30/2020 Time: 06:31 Bed 16 Private MD: ED Physician Vitaly Hugo HPI: 11/30 06:54 This 55 yrs old Male presents to ER via EMS with complaints of Fall Injury, mh7 Laceration. 06:54 Details of fall: The patient fell from seated position, sitting on walker. Onset: The mh7 symptoms/episode began/occurred this morning, today. Associated injuries: The patient sustained injury to the head, contusion, laceration, of the nose. Severity of symptoms: At their worst the symptoms were moderate, this morning, earlier today, in the emergency department the symptoms have improved, moderately. Historical: - Allergies: 06:37 No Known Allergies; bb - Home Meds: 06:37 Novolin R Sub-Q [Active]; Novolin N 70/30 Sub-Q susp [Active]; gabapentin 600 mg Oral bb tab 1 tab 3 times per day [Active]; Pepcid Oral [Active]; Furosemide Oral [Active]; carvedilol oral oral [Active]; Aspirin Oral [Active]; - PMHx: 06:37 Diabetes - IDDM; neuropathy; Hypertension; CAD; bb - PSHx: 06:37 Heart stents(March 2019); bb - Immunization history: Last tetanus immunization: > 5 years ago. - Social history:: Smoking status: Patient denies any tobacco usage or history of. Patient/guardian denies using alcohol, street drugs. ROS: 06:54 Constitutional: Negative for fever, chills, and weight loss, Eyes: Negative for injury, mh7 pain, redness, and discharge, Neck: Negative for injury, pain, and swelling, Cardiovascular: Negative for chest pain, palpitations, and edema, Respiratory: Negative for shortness of breath, cough, wheezing, and pleuritic chest pain, Abdomen/GI: Negative for abdominal pain, nausea, vomiting, diarrhea, and constipation, Back: Negative for injury and pain, : Negative for injury, bleeding, discharge, and swelling, MS/Extremity: Negative for injury and deformity, Neuro: Negative for headache, weakness, numbness, tingling, and seizure, Psych: Negative for depression, anxiety, suicide ideation, homicidal ideation, and hallucinations, Allergy/Immunology: Negative for hives, rash, and allergies, Endocrine: Negative for neck swelling, polydipsia, polyuria, polyphagia, and marked weight changes, Hematologic/Lymphatic: Negative for swollen nodes, abnormal bleeding, and unusual bruising. Exam: 06:54 Constitutional: This is a well developed, well nourished patient who is awake, alert, mh7 and in no acute distress. 06:54 Eyes: Pupils equal round and reactive to light, extra-ocular motions intact. Lids and lashes normal. Conjunctiva and sclera are non-icteric and not injected. Cornea within normal limits. Periorbital areas with no swelling, redness, or edema. 06:54 Neck: Trachea midline, no thyromegaly or masses palpated, and no cervical lymphadenopathy. Supple, full range of motion without nuchal rigidity, or vertebral point tenderness. No Meningismus. Chest/axilla: Normal chest wall appearance and motion. Nontender with no deformity. No lesions are appreciated. Cardiovascular: Regular rate and rhythm with a normal S1 and S2. No gallops, murmurs, or rubs. Normal PMI, no JVD. No pulse deficits. Respiratory: Lungs have equal breath sounds bilaterally, clear to auscultation and percussion. No rales, rhonchi or wheezes noted. No increased work of breathing, no retractions or nasal flaring. Abdomen/GI: Soft, non-tender, with normal bowel sounds. No distension or tympany. No guarding or rebound. No evidence of tenderness throughout. Back: No spinal tenderness. No costovertebral tenderness. Full range of motion. MS/ Extremity: Pulses equal, no cyanosis. Neurovascular intact. Full, normal range of motion. Neuro: Awake and alert, GCS 15, oriented to person, place, time, and situation. Cranial nerves II-XII grossly intact. Motor strength 5/5 in all extremities. Sensory grossly intact. Cerebellar exam normal. Normal gait. Psych: Awake, alert, with orientation to person, place and time. Behavior, mood, and affect are within normal limits. 06:54 Head/face: Noted is abrasion(s), that are mild, of the left temporal area, contusion, that is superficial, of the left temporal area. 06:54 ENT: External ear(s): are unremarkable, Ear canal(s): are normal, TM's: are normal, Nose: laceration, that is deep, that is jagged, approximately 3.5 cm(s), bridge of nose, Mouth: is normal, dried blood on lips, Posterior pharynx: is normal, Dental exam: normal, Voice: is normal. 06:54 Skin: injury, laceration(s), the wound is approximately 3.5 cm(s), with a depth of 0.75 cm(s), of the nose. Vital Signs: 06:31 BP 157 / 52; Pulse 66; Resp 16 S; Temp 98.4(TE); Pulse Ox 96% on R/A; Weight 125.19 kg bb (R); Height 5 ft. 11 in. (180.34 cm) (R); Pain 7/10; 07:20 BP 147 / 50; Pulse 61; Resp 15; Pulse Ox 99% on R/A; Pain 5/10; hb 06:31 Body Mass Index 38.49 (125.19 kg, 180.34 cm) bb [place] Coma Score: 06:31 Eye Response: spontaneous(4). Verbal Response: oriented(5). Motor Response: obeys bb commands(6). Total: 15. Trauma Score (Adult): 06:31 Eye Response: spontaneous(1); Verbal Response: oriented(1); Motor Response: obeys bb commands(2); Systolic BP: > 89 mm Hg(4); Respiratory Rate: 10 to 29 per min(4); [place] Score: 15; Trauma Score: 12 07:20 Eye Response: spontaneous(1); Verbal Response: oriented(1); Motor Response: obeys hb commands(2); Systolic BP: > 89 mm Hg(4); Respiratory Rate: 10 to 29 per min(4); [place] Score: 15; Trauma Score: 12 Laceration: 08:33 Wound Repair of 3cm ( 1.2in ) subcutaneous laceration to nose. Linear shaped.. Distal ma2 neuro/vascular/tendon intact. Wound prep: Extensive cleansing. Skin closed with 2 1-0 Adhesive skin closure using simple sutures and sterile technique. Dressed with 4x4's. Patient tolerated well. MDM: 08:33 Differential diagnosis: abrasion, contusion, fracture, laceration. Data reviewed: vital vt2 signs, nurses notes. Counseling: I had a detailed discussion with the patient and/or guardian regarding: the historical points, exam findings, and any diagnostic results supporting the discharge/admit diagnosis, the presence of at least one elevated blood pressure reading (>120/80) during this emergency department visit, the need for outpatient follow up. Response to treatment: the patient's symptoms have resolved after treatment. ED course: patient has minor chip maxillary fracture no entrapment, it is closed, as the lac is away from the fracture site. he does not have any neck pain or limited rom of neck on exam at this time. . 08:36 Patient medically screened. 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 Exp: rr5 08/16/2022. Lot #: [id number]. } Route: IM; Site: left deltoid; Disposition: 11/30/20 08:36 Discharged to Home. Impression: Maxillary fracture, unspecified, Laceration without foreign body of nose. - Condition is Stable. - Discharge Instructions: Nasal Fracture, Facial Laceration, [id number]. - Prescriptions for Augmentin 875- 125 mg Oral Tablet - take 1 tablet by ORAL route every 12 hours for 10 days; 20 tablet. Cyclobenzaprine 10 mg Oral Tablet - take 1 tablet by ORAL route every 8 hours As needed; 30 tablet. Diclofenac Sodium 75 mg Oral Tablet Sustained Release - take 1 tablet by ORAL route 2 times per day; 30 tablet. - Medication Reconciliation Form, Thank You Letter, Antibiotic Education, Prescription Opioid Use form. - Follow up: Private Physician; When: Tomorrow; Reason: Continuance of care. Signatures: Dispatcher [employer] EDMS Elidia Karimi RN RN Lizette Becerrli RN RN hb Alzahri, Mohammad, MD MD vt2 Ronny Mcleod RN RN 5 Vitaly Hugo MD MD 7 Corrections: (The following items were deleted from the chart) 09:18 08:36 11/30/2020 08:36 Discharged to Home. Impression: Maxillary fracture, unspecified; hb Laceration without foreign body of nose. Condition is Stable. Forms are Medication Reconciliation Form, Thank You Letter, Antibiotic Education, Prescription Opioid Use. Follow up: Private Physician; When: Tomorrow; Reason: Continuance of care. ma2
--- NOTE | 2020-11-30 08:37 | ER ---
Nurse's Notes [facility] Name: Tripp Webster Age: 55 yrs Sex: Male : 1965 Arrival Date: 11/30/2020 Time: :31 Bed 16 Private MD: Diagnosis: Maxillary fracture, unspecified;Laceration without foreign body of nose Presentation: 11/30 06:31 Chief complaint: EMS states: they were toned out for report of pt with a fall and bb laceration to nose denies LOC. Care prior to arrival: Glucose check: 242. Mechanism of Injury: Fall. 06:31 Acuity: MIRIAM 3 bb 06:31 Method Of Arrival: EMS: [facility] [place] [place] [facility] 06:34 Coronavirus screen: At this time, the client does not indicate any symptoms associated bb with coronavirus-19. Ebola Screen: No symptoms or risks identified at this time. Initial Sepsis Screen: Does the patient meet any 2 criteria? No. Patient's initial sepsis screen is negative. Does the patient have a suspected source of infection? No. Patient's initial sepsis screen is negative. Risk Assessment: Do you want to hurt yourself or someone else? Patient reports no desire to harm self or others. Onset of symptoms was November 30, 2020. 06:45 Trauma event details: Injury occurred in the [facility], Injury occurred: at rr5 home. Injury occurred: November 30, 2020. Trauma Activation: Not Applicable Physician: ED Physician; Name: ; Notified At: ; Arrived At: Physician: General Surgeon; Name: ; Notified At: ; Arrived At: Physician: Radiology; Name: ; Notified At: ; Arrived At: Physician: Respiratory; Name: ; Notified At: ; Arrived At: Physician: Lab; Name: ; Notified At: ; Arrived At: Historical: - Allergies: 06:37 No Known Allergies; bb - Home Meds: 06:37 Novolin R Sub-Q [Active]; Novolin N 70/30 Sub-Q susp [Active]; gabapentin 600 mg Oral bb tab 1 tab 3 times per day [Active]; Pepcid Oral [Active]; Furosemide Oral [Active]; carvedilol oral oral [Active]; Aspirin Oral [Active]; - PMHx: 06:37 Diabetes - IDDM; neuropathy; Hypertension; CAD; bb - PSHx: 06:37 Heart stents(March 2019); bb - Immunization history: Last tetanus immunization: > 5 years ago. - Social history:: Smoking status: Patient denies any tobacco usage or history of. Patient/guardian denies using alcohol, street drugs. Screenin:31 Abuse screen: Denies threats or abuse. Tuberculosis screening: No symptoms or risk bb factors identified. 06:43 Nutritional screening: No deficits noted. rr5 06:45 Fall Risk Fall in past 12 months (25 points). Total Brush Fall Scale indicates Low Risk rr5 Score (25-44 pts). Fall prevention measures have been instituted. Side Rails Up X 2 Frequent Obs/Assesments occuring As available Patient and Family Educated on Fall Prevention Program and strategies. Primary Survey: 06:30 NO uncontrolled hemorrhage observed. A: The patient is alert. Airway: patent, Oral rr5 cavity: clear, gag reflex present, Trachea midline. Breathing/Chest: Respiratory pattern: regular, Respiratory effort: spontaneous, unlabored, Breath sounds: clear, bilaterally. Chest inspection: symmetrical rise and fall of the chest. Circulation: Pulses: palpable right radial artery and left radial artery. Disability Alert. Exposure/Environment: All clothing and personal items were removed. There is no evidence of uncontrolled external bleeding. Obvious injury(ies) are noted at this time: lacerated wound nose bridge and abrasion left temporal area A warming method has been applied: A warm blanket has been provided to the patient. 07:20 Reassessment Airway Airway Patent Breathing/Chest Respiratory pattern Regular hb Respiratory effort Spontaneous Unlabored Chest inspection Symmetrical Circulation Color [place] Disability Alert. Secondary Survey: 06:30 HEENT: Head Other abrasion left temporal area Face Other lacerated wound nose bridge rr5 Eyes: No injury or deformity noted. to bilateral eyes. Ears: clear bilaterally. Nose: clear to bilateral nares. lacerated wound nose bridge. Throat: is clear with gag reflex present. 06:30 Gastrointestinal: Abdomen is soft. : No signs and/or symptoms were reported regarding rr5 the genitourinary system. Musculoskeletal: No signs and/or symptoms reported regarding the musculoskeletal system. Injury Description: Laceration sustained to bridge of nose is clean, 0.5 to 2.5 cm long. Assessment: 06:43 General: Appears in no apparent distress. comfortable, Behavior is calm, cooperative, rr5 appropriate for age. Pain: Complains of pain in nose. Neuro: Level of Consciousness is awake, alert, obeys commands, Oriented to person, place, time. EENT: lacerated wound bridge of the nose. Cardiovascular: Capillary refill < 3 seconds Patient's skin is warm and dry. Respiratory: Airway is patent Respiratory effort is even, unlabored, Respiratory pattern is regular, symmetrical. GI: No signs and/or symptoms were reported involving the gastrointestinal system. : No signs and/or symptoms were reported regarding the genitourinary system. Derm: Wound noted nose and bridge of nose Wound is lacerated wound V shape. Musculoskeletal: No signs and/or symptoms reported regarding the musculoskeletal system. 07:20 Reassessment: Patient appears in no apparent distress at this time. Patient and/or hb family updated on plan of care and expected duration. Pain level reassessed. Patient is alert, oriented x 3, equal unlabored respirations, skin warm/dry/pink. Vital Signs: 06:31 BP 157 / 52; Pulse 66; Resp 16 S; Temp 98.4(TE); Pulse Ox 96% on R/A; Weight 125.19 kg bb (R); Height 5 ft. 11 in. (180.34 cm) (R); Pain 7/10; 07:20 BP 147 / 50; Pulse 61; Resp 15; Pulse Ox 99% on R/A; Pain 5/10; hb 06:31 Body Mass Index 38.49 (125.19 kg, 180.34 cm) bb [place] Coma Score: 06:31 Eye Response: spontaneous(4). Verbal Response: oriented(5). Motor Response: obeys bb commands(6). Total: 15. Trauma Score (Adult): 06:31 Eye Response: spontaneous(1); Verbal Response: oriented(1); Motor Response: obeys bb commands(2); Systolic BP: > 89 mm Hg(4); Respiratory Rate: 10 to 29 per min(4); [place] Score: 15; Trauma Score: 12 07:20 Eye Response: spontaneous(1); Verbal Response: oriented(1); Motor Response: obeys hb commands(2); Systolic BP: > 89 mm Hg(4); Respiratory Rate: 10 to 29 per min(4); [place] Score: 15; Trauma Score: 12 ED Course: 06:30 Thermoregulation: warm blanket given to patient. rr5 06:31 Patient arrived in ED. bb 06:31 Patient has correct armband on for positive identification. Placed in gown. Bed in low bb position. Call light in reach. Side rails up X2. 06:31 Patient maintains SpO2 saturation greater than 95% on room air. bb 06:32 Triage completed. bb 06:37 Arm band placed on Patient placed in an exam room, on a stretcher, on pulse oximetry. bb 06:39 Ronny Mcleod, RN is Primary Nurse. rr5 06:45 Vitaly Hugo MD is Attending Physician. 7 06:45 Pulse ox on. NIBP on. Ice pack to injury. rr5 07:27 CT Facial Bones W/O Con In Process Unspecified. EDMS 07:27 CT Head C Spine In Process Unspecified. 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 Exp: rr5 08/16/2022. Lot #: [id number]. } Route: IM; Site: left deltoid; Intake: 06:31 PO: 0ml; Total: 0ml. bb Outcome: 08:[address] . [facility] [place] 09:18 Patient left the ED. hb Signatures: Dispatcher [employer] EDElidia Roa RN RN bb Lizette Becerril RN RN Raven Lovell MD MD [facility] [place] Ronny Mcleod RN RN rr5 Vitaly Hugo MD MD 7 Corrections: (The following items were deleted from the chart) 06:42 06:30 Exposure/Environment: All clothing and personal items were removed. There is no rr5 evidence of uncontrolled external bleeding. Obvious injury(ies) are noted at this time: lacerated wound nose bridge and abrasion left occipital area A warming method has been applied: A warm blanket has been provided to the patient. rr5 08:01 07:30 BP 147 / 50; Pulse 61bpm; Resp 15bpm; Pulse Ox 99% RA; Pain 5/10; hb hb 08:01 07:30 [place] Score=15, Trauma Score=12, hb hb
[2020-11-30 09:26] VITALS: TEMP 98.4
[2020-11-30 09:27] VITALS: BP 147/50; O2SAT 99
== END 2020-11-30 09:18 | disposition home or self-care (01) ==
LOC: ER 06:30
PROC: 0JQ10ZZ Repair Face Subcutaneous Tissue and Fascia, Open Approach (ICD-10-PCS; principal; 2020-11-30)
DX: S01.21XA Laceration without foreign body of nose, initial encounter (principal); S02.401A Maxillary fracture, unspecified side, initial encounter for closed fracture; W19.XXXA Unspecified fall, initial encounter; I10 Essential (primary) hypertension; E11.9 Type 2 diabetes mellitus without complications; Z23 Encounter for immunization; Z79.4 Long term (current) use of insulin; Z79.82 Long term (current) use of aspirin; Z95.818 Presence of other cardiac implants and grafts
CPT/HCPCS: 70450; 70486; 72125; 76377; 90471; 90714; 99284

== ENCOUNTER 2022-04-29 23:55 | Emergency (ER) | payer OTHER ==
--- OUTSIDE RECORDS SUMMARY | 2022-04-30 00:04 | XMS REPORT | Continuity of Care Document ---
:1965 Author Organization [facility] t Address [address] [place] [address] [address] [place] [address] Care Team Providers Name Role Phone Michael Grullon Attending Clinician Unavailable Michael Grullon Attending Clinician Doctor Unassigned, [place] Attending Clinician Unavailable Radiology Attending Clinician Unavailable RADIOLOGY Attending Clinician Unavailable Michael Grullon Admitting Clinician Unavailable Payers Payer Name Policy Type Policy Number Effective Date Expiration Date Megan schuster [facility] 53 [id number] 2021 2022 [facility] ADVANTAGE 00:00:00 00:00:00 - [facility] Problems Condition Condition Condition Status Onset Resolution Last Treating Co mments Source Name Details Category Date Date Treatment Clinician Date Dyslipidem Dyslipidem Disease Active 2015-06 U nivers ia ia 1-16 ity of 00:00: [place] [facility] Diabetes Diabetes Disease Active Unive rs mellitus, mellitus, 9-22 ity of insulin insulin 00:00: [place] dependent dependent 00 Medi marck (IDDM), (IDDM), Branch uncontroll uncontroll ed ed Retinopath Retinopath Disease Active U nivers y y 9- ity of 00:00: [place] 00 [facility] Neuropathy Neuropathy Disease Active U nivers 6-30 ity of 00:00: [place] 00 Medical Branch Muscle Muscle Disease Active 2015-0 Univers cramps cramps 6-30 ity of 00:00: [place] 00 Medical Branch Obstructiv Obstructiv Problem C ommon e sleep e sleep Spirit apnea apnea - [facility] Erectile Erectile Problem Commo n dysfunctio dysfunctio Sp marissa n n - [facility] [id number] 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 without Medical residual Center deficits [id number] Dog bite, Problem Com mon subsequent Spirit encounter - [facility] [id number] Wound of Problem Comm on left lower Spirit extremity, - CHI subsequent [facility] [id number] HTN Problem Common (hypertens Spirit ion), - CHI benign [facility] Insomnia Insomnia Problem Commo n Spirit - [facility]I [facility] [id number] Venous Problem Common insufficie Spirit ncy of - [facility] both lower [facility] [id number] Other Problem Common chronic Spirit pain [facility] [id number] Benign Problem Common neoplasm Spirit of - CHI ascending colon [facility] [id number] Chronic Problem Commo n diastolic Spirit congestive - [facility] heart [facility] Hearing Hearing Problem Common loss deficit [facility] [id number] Tubular Problem Commo n adenoma of Spirit colon [facility] [id number] Local Problem Common infection [facility] of the [facility] tissue, Medica l unspecifie Center d [id number] Cellulitis Problem C ommon [id number] of left Spirit lower - CHI extremity [facility] Left sided Left sided Problem C ommon ulcerative colitis Spiri t colitis with - CHI complicati [facility] [id number] Moderate Problem Commo n major Spirit depression - CHI , single episode [facility] [id number] PAD Problem Common (periphera [facility] l artery - CHI disease) [facility] [id number] Pain in Problem Comm on [id number] left Spirit shoulder - [facility] [id number] Spinal Problem Common stenosis, Spirit lumbosacra - [facility] l region [facility] Hyperglyce Type 2 Problem Commo n bryan due to diabetes Spir it type 2 mellitus - CHI diabetes with St mellitus hyperglyce Luke s bryan, Medical unspecifie Center d whether long-term insulin use [id number] Type 1 Problem Common diabetes [facility] mellitus - [facility] with other [facility] neurologic [facility] complicati on Atheroscle Atheroscle Problem C ommon rotic rosis of [facility] heart coronary - [facility] disease of artery of [facility] coronary heart Medical artery Center without angina pectoris [id number] Primary Problem Common insomnia [facility] [id number] Morbid Problem Commo n 9104 (severe) [facility] obesity - [facility] due to [facility] [id number] Body mass Problem Com mon index [facility] [BMI] - [facility] 38.0-38.9, [facility] [id number] Left elbow Problem Com mon pain [facility] Sciatica Sciatic Problem Common pain, left [facility] Peripheral Per[facility] neuropathy marissa [facility] Chronic Chronic Problem Common back pain back pain Spir it [facility] Hyperlipid Hyperlipid Problem C ommon emia emia [facility] Mixed Depression Problem Commo n anxiety with Spirit and anxiety - CHI depressive [facility] Allergies, Adverse Reactions, Alerts Allergy Allergy Status Severity Reaction(s) Onset Inactive Treating Comm ents Source Name Type Date Date Clinician NO KNOWN Drug Active Univers ALLERGIE Class ity of S [facility] Social History Social Habit Start Date Stop Date Quantity Comments Source Exposure to Unable to assess Univers ity of SARS-CoV-2 [facility] (event) Branch History of [facility] - Tobacco Use [facility] Sex Assigned At Common Sp marissa - [facility] Tobacco use and 2017-10-10 2017-10-10 Never used Universit y of exposure 00:00:00 00:00:00 [facility] Alcohol intake 2017-10-10 2017-10-10 Current University of 00:00:00 00:00:00 non-drinker of [facility] alcohol Branch (finding) Smoking Status Start Date Stop Date Source Never Smoker [facility] Medications Ordered Filled Start Stop Current Ordering Indication Dosage Frequency Signature Comments Components Source Medication Medication Date Date Medication? Clinician (SIG) Name Name Ashley Ramirez No 40mg Common (Triamcinol (Triamcinol 7-20 S pirit one) one) 00:00: - CHI 00 [facility] Kenalog Kenalog 2021-0 No 40mg Common (Triamcinol (Triamcinol 7-20 S pirit one) one) 00:00: - CHI 00 [facility] Kenalog Kenalog 2021-0 No 40mg Common (Triamcinol (Triamcinol 7-20 S pirit one) one) 00:00: - CHI 00 [facility] Kenalog Kenalog 2021-0 No 40mg Common (Triamcinol (Triamcinol 7-20 S pirit one) one) 00:00: - CHI 00 [facility] Kenalog Kenalog 2021-0 No 40mg Common (Triamcinol (Triamcinol 7-20 S pirit one) one) 00:00: - CHI 00 [facility] HumuLIN HumuLIN 2021-0 No BID HumuLIN 70/30 70/30 12-23 70/30 (70-30) 100 (70-30) 100 00:00: (70-30) UNIT/ML UNIT/ML 00 100 UNIT/ML Insulin Insulin 2021-0 No Insulin Syringe-Nee Syringe-Nee -12 Syringe-Ne dle U-100 dle U-100 00:00: edle U-100 31G X 5/16" 31G X 5/16" 00 31G X 1 ML 1 ML 5/16" 1 ML HumuLIN HumuLIN 2021-0 No BID HumuLIN 70/30 70/30 12-23 70/30 (70-30) 100 (70-30) 100 00:00: (70-30) UNIT/ML UNIT/ML 00 100 UNIT/ML Insulin Insulin 2021-0 No Insulin Syringe-Nee Syringe-Nee -12 Syringe-Ne dle U-100 dle U-100 00:00: edle U-100 31G X 5/16" 31G X 5/16" 00 31G X 1 ML 1 ML 5/16" 1 ML HumuLIN HumuLIN 2021-0 No BID HumuLIN 70/30 70/30 -12 70/30 (70-30) 100 (70-30) 100 00:00: (70-30) UNIT/ML UNIT/ML 00 100 UNIT/ML Insulin Insulin 0 No Insulin Syringe-Nee Syringe-Nee 7-12 Syringe-Ne dle U-100 dle U-100 00:00: edle U-100 31G X 5/16" 31G X 5/16" 00 31G X 1 ML 1 ML 5/16" 1 ML HumuLIN HumuLIN 2021-0 No BID HumuLIN 70/30 70/30 7-12 70/30 (70-30) 100 (70-30) 100 00:00: (70-30) UNIT/ML UNIT/ML 00 100 UNIT/ML Insulin Insulin 0 No Insulin Syringe-Nee Syringe-Nee -12 Syringe-Ne dle U-100 dle U-100 00:00: edle U-100 31G X 5/16" 31G X 5/16" 00 31G X 1 ML 1 ML 16" 1 ML HumuLIN HumuLIN 0 No BID HumuLIN 70/30 70/30 7-12 70/30 (70-30) 100 (70-30) 100 00:00: (70-30) UNIT/ML UNIT/ML 00 100 UNIT/ML Insulin Insulin 2021-0 No Insulin Syringe-Nee Syringe-Nee -12 Syringe-Ne dle U-100 dle U-100 00:00: edle U-100 31G X 5/16" 31G X 5/16" 00 31G X 1 ML 1 ML 16" 1 ML Lidocaine Lidocaine 2021-0 No 10mg Com 07-14 Spirit 00:00: - [facility] Kenalog Kenalog 2021-0 No 40mg Common (Triamcinol (Triamcinol 1-31 S pirit one) one) 00:00: - [facility] Lidocaine Lidocaine 2021-0 No 10mg Com 07-14 Spirit 00:00: - [facility] Kenalog Kenalog 2021-0 No 40mg Common (Triamcinol (Triamcinol 1-31 S pirit one) one) 00:00: - [facility] Lidocaine Lidocaine 2021-0 No 10mg Com 07-14 Spirit 00:00: - [facility] Kenalog Kenalog 2022-0 No 40mg Common (Triamcinol (Triamcinol 1-31 S pirit one) one) 00:00: - [facility] Lidocaine Lidocaine 2021-0 No 10mg Com 07-14 Spirit 00:00: - [facility] Kenalog Kenalog 0 No 40mg Common (Triamcinol (Triamcinol 1-31 S pirit one) one) 00:00: - [facility] Lidocaine Lidocaine 2021-0 No 10mg Com 07-14 Spirit 00:00: - [facility] Kenalog Kenalog 0 No 40mg Common (Triamcinol (Triamcinol 1-31 S pirit one) one) 00:00: - [facility] gadoteridol 2019-1 2020- No .2mL/kg 0.2 mL/kg, Univers (PROHANCE-1 04-11 Intravenou i ty of 5 mL) 15:45: 17:18 s, ONCE, 1 [place] injection 00 :00 dose, Emma Medic al 0.2 mL/kg 04/11/20 Branch at 1045, Routine Kenalog Kenalog 2019-0 No 40mg Common (Triamcinol (Triamcinol 3-24 S pirit one) one) 00:00: - [facility] Kenalog Kenalog 2019-0 No 40mg Common (Triamcinol (Triamcinol 3-24 S pirit one) one) 00:00: - [facility] Kenalog Kenalog 2019-0 No 40mg Common (Triamcinol (Triamcinol 3-24 S pirit one) one) 00:00: - [facility] Kenalog Kenalog 2019-0 No 40mg Common (Triamcinol (Triamcinol 3-24 S pirit one) one) 00:00: - [facility] Kenalog Kenalog 2019-0 No 40mg Common (Triamcinol (Triamcinol 3-24 S pirit one) one) 00:00: - [facility] Novolin R Novolin R 2019- Yes Michael per Errol beckham 1-04 [place] sliding Spirit 00:00: scale 2 - CHI 00 units - 28 [facility] NovoLIN R NovoLIN R 2019- No TID NovoLIN R 100 UNIT/ML 100 UNIT/ML 06-17 100 00:00: UNIT/ML 00 NovoLIN R NovoLIN R 2019-1 No TID NovoLIN R 100 UNIT/ML 100 UNIT/ML 06-17 100 00:00: UNIT/ML 00 NovoLIN R NovoLIN R 2019- No TID NovoLIN R 100 UNIT/ML 100 UNIT/ML 06-17 100 00:00: UNIT/ML 00 NovoLIN R NovoLIN R 2019-1 No TID NovoLIN R 100 UNIT/ML 100 UNIT/ML 06-17 100 00:00: UNIT/ML 00 NovoLIN R NovoLIN R 2019- No TID NovoLIN R 100 UNIT/ML 100 UNIT/ML 06-17 100 00:00: UNIT/ML 00 dulaglutide Yes [id number] 1.5mg inject 1.5 Univers (TRULICITY) 8-27 mg under ity of 1.5 mg/0.5 00:00: the skin [place] as mL PnIj 00 weekly. Medical Branch dulaglutide Yes [id number] 1.5mg inject 1.5 Univers (TRULICITY) 8-27 mg under ity of 1.5 mg/0.5 00:00: the skin [place] as mL PnIj 00 weekly. Medical Branch dulaglutide Yes [id number] 1.5mg inject 1.5 Univers (TRULICITY) 8-27 mg under ity of 1.5 mg/0.5 00:00: the skin [place] as mL PnIj 00 weekly. Medical Branch dulaglutide Yes [id number] 1.5mg inject 1.5 Univers (TRULICITY) 8-27 mg under ity of 1.5 mg/0.5 00:00: the skin [place] as mL PnIj 00 weekly. Medical Branch dulaglutide Yes [id number] 1.5mg inject 1.5 Univers (TRULICITY) 8-27 mg under ity of 1.5 mg/0.5 00:00: the skin [place] as mL PnIj 00 weekly. Medical Branch dulaglutide Yes [id number] 1.5mg inject 1.5 Univers (TRULICITY) 8-27 mg under ity of 1.5 mg/0.5 00:00: the skin [place] as mL PnIj 00 weekly. Medical Branch dulaglutide 2018-0 Yes [id number] 1.5mg inject 1.5 Univers (TRULICITY) 8-27 mg under ity of 1.5 mg/0.5 00:00: the skin [place] as mL PnIj 00 weekly. Medical Branch dulaglutide 2017-0 Yes [id number] 1.5mg inject 1.5 Univers (TRULICITY) 8-27 mg under ity of 1.5 mg/0.5 00:00: the skin [place] as mL PnIj 00 weekly. Medical Branch dulaglutide 2017-0 Yes [id number] 1.5mg inject 1.5 Univers (TRULICITY) 8-27 mg under ity of 1.5 mg/0.5 00:00: the skin [place] as mL PnIj 00 weekly. Medical Branch dulaglutide 2017- Yes [id number] 1.5mg inject 1.5 Univers (TRULICITY) 8-27 mg under ity of 1.5 mg/0.5 00:00: the skin [place] as mL PnIj 00 weekly. Medical Branch insulin 0 Yes [id number] 28U inject Univ ers lispro, 525 28-34 ity of human, 00:00: Units [place] (HUMALOG) 00 under the Medic al 100 unit/mL skin 3 Branch injection (three) times daily before meals. insulin 2017-0 Yes [id number] 28U inject Univ ers lispro, 5 28-34 ity of human, 00:00: Units [place] (HUMALOG) 00 under the Medic al 100 unit/mL skin 3 Branch injection (three) times daily before meals. insulin 2017-0 Yes [id number] 28U inject Univ ers lispro, 5-25 28-34 ity of human, 00:00: Units [place] (HUMALOG) 00 under the Medic al 100 unit/mL skin 3 Branch injection (three) times daily before meals. insulin 2018-0 Yes [id number] 28U inject Univ ers lispro, 5-25 28-34 ity of human, 00:00: Units [place] (HUMALOG) 00 under the Medic al 100 unit/mL skin 3 Branch injection (three) times daily before meals. insulin 2017-0 Yes [id number] 28U inject Univ ers lispro, 5-25 28-34 ity of human, 00:00: Units [place] (HUMALOG) 00 under the Medic al 100 unit/mL skin 3 Branch injection (three) times daily before meals. escitalopra Yes 10mg Take 10 mg Univers m oxalate 5-07 by mouth ity of (LEXAPRO) 18:23: daily. [place] 10 mg 19 Medical tablet Branch clopidogrel Yes 75mg Take 75 mg Univers (PLAVIX) 75 5-07 by mouth ity of mg tablet 18:23: daily. [place] [id number] Medical Branch amLODIPine Yes 2.5mg Take 2.5 Un marc 2.5 mg 5-07 mg by ity of tablet 18:23: mouth [place] 19 daily. Medical Branch escitalopra Yes 10mg Take 10 mg Univers m oxalate 5-07 by mouth ity of (LEXAPRO) 18:23: daily. [place] 10 mg Medical tablet Branch clopidogrel Yes 75mg Take 75 mg Univers (PLAVIX) 75 5-07 by mouth ity of mg tablet 18:23: daily. [place] [address] Medical Branch amLODIPine Yes 2.5mg Take 2.5 Un marc 2.5 mg 5-07 mg by ity of tablet 18:23: mouth [place] 19 daily. Medical Branch escitalopra Yes 10mg Take 10 mg Univers m oxalate 5-07 by mouth ity of (LEXAPRO) 18:23: daily. [place] 10 mg Medical tablet Branch clopidogrel Yes 75mg Take 75 mg Univers (PLAVIX) 75 5-07 by mouth ity of mg tablet 18:23: daily. [place] [address] Medical Branch amLODIPine Yes 2.5mg Take 2.5 Un marc 2.5 mg 5-07 mg by ity of tablet 18:23: mouth [place] 19 daily. Medical Branch escitalopra Yes 10mg Take 10 mg Univers m oxalate 5-07 by mouth ity of (LEXAPRO) 18:23: daily. [place] 10 mg Medical tablet Branch clopidogrel Yes 75mg Take 75 mg Univers (PLAVIX) 75 5-07 by mouth ity of mg tablet 18:23: daily. [place] [address] Medical Branch amLODIPine Yes 2.5mg Take 2.5 Un marc 2.5 mg 5-07 mg by ity of tablet 18:23: mouth [place] 19 daily. Medical Branch escitalopra Yes 10mg Take 10 mg Univers m oxalate 5-07 by mouth ity of (LEXAPRO) 18:23: daily. [place] 10 mg 19 Medical tablet Branch clopidogrel 2017- Yes 75mg Take 75 mg Univers (PLAVIX) 75 5-07 by mouth ity of mg tablet 18:23: daily. [place] 19 Medical Branch amLODIPine Yes 2.5mg Take 2.5 Un marc 2.5 mg 5-07 mg by ity of tablet 18:23: mouth [place] 19 daily. Medical Branch insulin NPH Yes [id number] 40U inject 40 Univers 100 unit/mL 5-07 Units ity of injection 00:00: under the [place] as 00 skin every Medical morning Branch and evening. insulin NPH Yes [id number] 40U inject 40 Univers 100 unit/mL 5-07 Units ity of injection 00:00: under the [place] as 00 skin every Medical morning Branch and evening. insulin NPH 0 Yes [id number] 40U inject 40 Univers 100 unit/mL 5-07 Units ity of injection 00:00: under the [place] as 00 skin every Medical morning Branch and evening. insulin NPH Yes [id number] 40U inject 40 Univers 100 unit/mL 5-07 Units ity of injection 00:00: under the [place] as 00 skin every Medical morning Branch and evening. insulin NPH Yes [id number] 40U inject 40 Univers 100 unit/mL 5-07 Units ity of injection 00:00: under the [place] as 00 skin every Medical morning Branch and evening. atorvastati Yes 40mg Take 40 mg Univers n 80 mg 1-18 by mouth ity of tablet 00:00: every [place] 00 evening. Medical Branch lisinopril Yes 20mg Take 20 mg U nivers 20 mg 1-18 by mouth ity of tablet 00:00: daily. Medical Branch atorvastati 0 Yes 40mg Take 40 mg Univers n 80 mg 1-18 by mouth ity of tablet 00:00: every [place] 00 evening. Medical Branch lisinopril Yes 20mg Take 20 mg U nivers 20 mg 1-18 by mouth ity of tablet 00:00: daily. Medical Branch atorvastati 2018-0 Yes 40mg Take 40 mg Univers n 80 mg 1-18 by mouth ity of tablet 00:00: every [place] evening. Medical Branch lisinopril 0 Yes 20mg Take 20 mg U nivers 20 mg 1-18 by mouth ity of tablet 00:00: daily. Medical Branch atorvastati 2017-0 Yes 40mg Take 40 mg Univers n 80 mg 1-18 by mouth ity of tablet 00:00: every [place] evening. Medical Branch lisinopril 0 Yes 20mg Take 20 mg U nivers 20 mg 1-18 by mouth ity of tablet 00:00: daily. Medical Branch atorvastati Yes 40mg Take 40 mg Univers n 80 mg 1-18 by mouth ity of tablet 00:00: every [place] evening. Medical Branch lisinopril Yes 20mg Take 20 mg U nivers 20 mg 1-18 by mouth ity of tablet 00:00: daily. [place] [facility] Branch gabapentin 2015-0 Yes [id number] 600mg Take 1 Univers (NEURONTIN) 8-16 tablet by ity of 600 mg 00:00: mouth 3 [place] tablet 00 (three) Medical times Branch daily. gabapentin 2015-0 Yes [id number] 600mg Take 1 Univers (NEURONTIN) 8-16 tablet by ity of 600 mg 00:00: mouth 3 [place] tablet 00 (three) Medical times Branch daily. gabapentin 2015-0 Yes [id number] 600mg Take 1 Univers (NEURONTIN) 8-16 tablet by ity of 600 mg 00:00: mouth 3 [place] tablet 00 (three) Medical times Branch daily. gabapentin 2015-0 Yes [id number] 600mg Take 1 Univers (NEURONTIN) 8-16 tablet by ity of 600 mg 00:00: mouth 3 [place] tablet 00 (three) Medical times Branch daily. gabapentin 2015-0 Yes [id number] 600mg Take 1 Univers (NEURONTIN) 8-16 tablet by ity of 600 mg 00:00: mouth 3 [place] tablet 00 (three) Medical times [place] daily. OneTouch OneTouch Yes Michael USE TO Com mon Ultra Test Ultra Test [place] CHECK S pirit BLOOD - CHI SUGAR FOUR St TIMES [facility] Amlodipine Amlodipine Yes Michael TAKE 1 Common Besylate Besylate [place] TABLET BY S pirit MOUTH ONCE - CHI A DAY [facility] Hydrochloro Hydrochloro Yes Michael TAKE 1 Common thiazide thiazide [place] TABLET BY S pirit MOUTH ONCE - CHI A DAY IN [facility] Neurontin Neurontin Yes Michael 1 tablet Common [place] [facility] Novolin N Novolin N Yes Michael 50 units Common [place] [facility] Escitalopra Escitalopra Yes Michael 1 tablet Common m Oxalate m Oxalate [place] Spir it [facility] Coreg Coreg Yes Michael 1 tablet Common [place] [facility] NovoLog NovoLog Yes Michael sliding Comm on [place] scale 36 Spirit units [facility] OneTouch OneTouch Yes Michael TEST BLOOD Common Ultra Test Ultra Test [place] GLUCOSE Spirit FOUR TIMES - CHI A DAY [facility] ProAir HFA ProAir HFA Yes Michael 2 puffs as Common [place] needed [facility] Lipitor Lipitor Yes Michael 1 tablet Com mon [place] [facility] Gabapentin Gabapentin Yes Michael 1 tablet Common [place] [facility] Furosemide Furosemide Yes Michael 1 tablet Common [place] [facility] Lisinopril Lisinopril Yes Michael TAKE 1 Common [place] TABLET BY Spirit MOUTH ONCE - CHI A DAY [facility] Lexapro Lexapro Yes Michael TAKE 1 Commo n [place] TABLET BY Spirit MOUTH ONCE - CHI DAILY [facility] Plavix Plavix Yes Michael TAKE 1 Common [place] TABLET BY Spirit MOUTH ONCE - CHI DAILY [facility] Plavix Plavix Yes Michael 1 tablet Commo n [place] [facility] Furosemide Furosemide No Furosemide 80 MG 80 MG 80 MG Atorvastati Atorvastati No Atorvastat n Calcium n Calcium in Calcium 80 MG 80 MG 80 MG OneTouch OneTouch No QID OneTouch Ultra Test Ultra Test Ultra Test - - - Plavix 75 Plavix 75 No 1{table QD Plavix 75 MG MG t} MG Escitalopra Escitalopra No Escitalopr m Oxalate m Oxalate am Oxalate 20 MG 20 MG 20 MG Carvedilol Carvedilol No Carvedilol 12.5 MG 12.5 MG 12.5 MG Lipitor 80 Lipitor 80 No 1{table QD Lipitor 80 MG MG t} MG Furosemide Furosemide No 1{table BID Furosemide 80 MG 80 MG t} 80 MG ProAir HFA ProAir HFA No 2{puffs QID ProAir HFA 108 (90 108 (90 _as_nee 108 (90 Base) Base) ded} Base) MCG/ACT MCG/ACT MCG/ACT Gabapentin Gabapentin No Gabapentin 600 MG 600 MG 600 MG traZODone traZODone No QD traZODone HCl 100 MG HCl 100 MG HCl 100 MG Coreg 12.5 Coreg 12.5 No 1{table BID Coreg 12.5 MG MG t} MG Cyclobenzap Cyclobenzap No Cyclobenza rine HCl 10 rine HCl 10 adán HCl MG MG 10 MG Plavix 75 Plavix 75 No 1{table QD Plavix 75 MG MG t} MG Escitalopra Escitalopra No 1{table QD Escitalopr m Oxalate m Oxalate t} am Oxalate 20 MG 20 MG 20 MG Lipitor 80 Lipitor 80 No 1{table QD Lipitor 80 MG MG t} MG Dexcom G6 Dexcom G6 No Dexcom G6 Transmitter Transmitter Transmitte - - r - Diclofenac Diclofenac No Diclofenac Sodium 75 Sodium 75 Sodium 75 MG MG MG Clopidogrel Clopidogrel No Clopidogre Bisulfate Bisulfate l 75 MG 75 MG Bisulfate 75 MG OneTouch OneTouch No OneTouch Ultra - Ultra - Ultra - Dexcom G6 Dexcom G6 No Dexcom G6 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 - Dexcom G6 Dexcom G6 No Dexcom G6 Sensor - Sensor - Sensor - Neurontin Neurontin No 1{table QD Neurontin 600 MG 600 MG t} 600 MG traMADol traMADol No 1{table BID traMADol HCl 50 MG HCl 50 MG t_as_ne HCl 50 MG eded} amLODIPine amLODIPine No amLODIPine Besylate 5 Besylate 5 Besylate 5 MG MG MG HumuLIN R HumuLIN R No TID HumuLIN R 100 UNIT/ML 100 UNIT/ML 100 UNIT/ML Lexapro 20 Lexapro 20 No Lexapro 20 MG MG MG OneTouch OneTouch No OneTouch Ultra Test Ultra Test Ultra Test - - - HYDROcodone HYDROcodone No 1{table QID HYDROcodon -Acetaminop -Acetaminop t_as_ne e-Acetamin hen 7.5-325 hen 7.5-325 eded} ophen MG MG 7.5-325 MG Tylenol 8 Tylenol 8 No 2{table TID Tylenol 8 Hour 650 MG Hour 650 MG ts_as_n Hour 650 eeded} MG hydrOXYzine hydrOXYzine No 1{table QID hydrOXYzin HCl 10 MG HCl 10 MG t_as_ne e HCl 10 eded} MG Furosemide Furosemide No Furosemide 80 MG 80 MG 80 MG Atorvastati Atorvastati No Atorvastat n Calcium n Calcium in Calcium 80 MG 80 MG 80 MG OneTouch OneTouch No QID OneTouch Ultra Test Ultra Test Ultra Test - - - Plavix 75 Plavix 75 No 1{table QD Plavix 75 MG MG t} MG Escitalopra Escitalopra No Escitalopr m Oxalate m Oxalate am Oxalate 20 MG 20 MG 20 MG Carvedilol Carvedilol No Carvedilol 12.5 MG 12.5 MG 12.5 MG Lipitor 80 Lipitor 80 No 1{table QD Lipitor 80 MG MG t} MG Furosemide Furosemide No 1{table BID Furosemide 80 MG 80 MG t} 80 MG ProAir HFA ProAir HFA No 2{puffs QID ProAir HFA 108 (90 108 (90 _as_nee 108 (90 Base) Base) ded} Base) MCG/ACT MCG/ACT MCG/ACT Gabapentin Gabapentin No Gabapentin 600 MG 600 MG 600 MG traZODone traZODone No QD traZODone HCl 100 MG HCl 100 MG HCl 100 MG Coreg 12.5 Coreg 12.5 No 1{table BID Coreg 12.5 MG MG t} MG Cyclobenzap Cyclobenzap No Cyclobenza rine HCl 10 rine HCl 10 adán HCl MG MG 10 MG Plavix 75 Plavix 75 No 1{table QD Plavix 75 MG MG t} MG Escitalopra Escitalopra No 1{table QD Escitalopr m Oxalate m Oxalate t} am Oxalate 20 MG 20 MG 20 MG Lipitor 80 Lipitor 80 No 1{table QD Lipitor 80 MG MG t} MG Dexcom G6 Dexcom G6 No Dexcom G6 Transmitter Transmitter Transmitte - - r - Diclofenac Diclofenac No Diclofenac Sodium 75 Sodium 75 Sodium 75 MG MG MG Clopidogrel Clopidogrel No Clopidogre Bisulfate Bisulfate l 75 MG 75 MG Bisulfate 75 MG OneTouch OneTouch No OneTouch Ultra - Ultra - Ultra - Dexcom G6 Dexcom G6 No Dexcom G6 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 - Dexcom G6 Dexcom G6 No Dexcom G6 Sensor - Sensor - Sensor - Neurontin Neurontin No 1{table QD Neurontin 600 MG 600 MG t} 600 MG traMADol traMADol No 1{table BID traMADol HCl 50 MG HCl 50 MG t_as_ne HCl 50 MG eded} amLODIPine amLODIPine No amLODIPine Besylate 5 Besylate 5 Besylate 5 MG MG MG HumuLIN R HumuLIN R No TID HumuLIN R 100 UNIT/ML 100 UNIT/ML 100 UNIT/ML Lexapro 20 Lexapro 20 No Lexapro 20 MG MG MG OneTouch OneTouch No OneTouch Ultra Test Ultra Test Ultra Test - - - HYDROcodone HYDROcodone No 1{table QID HYDROcodon -Acetaminop -Acetaminop t_as_ne e-Acetamin hen 7.5-325 hen 7.5-325 eded} ophen MG MG 7.5-325 MG Tylenol 8 Tylenol 8 No 2{table TID Tylenol 8 Hour 650 MG Hour 650 MG ts_as_n Hour 650 eeded} MG hydrOXYzine hydrOXYzine No 1{table QID hydrOXYzin HCl 10 MG HCl 10 MG t_as_ne e HCl 10 eded} MG Furosemide Furosemide No Furosemide 80 MG 80 MG 80 MG Atorvastati Atorvastati No Atorvastat n Calcium n Calcium in Calcium 80 MG 80 MG 80 MG OneTouch OneTouch No QID OneTouch Ultra Test Ultra Test Ultra Test - - - Plavix 75 Plavix 75 No 1{table QD Plavix 75 MG MG t} MG Escitalopra Escitalopra No Escitalopr m Oxalate m Oxalate am Oxalate 20 MG 20 MG 20 MG Carvedilol Carvedilol No Carvedilol 12.5 MG 12.5 MG 12.5 MG Lipitor 80 Lipitor 80 No 1{table QD Lipitor 80 MG MG t} MG Furosemide Furosemide No 1{table BID Furosemide 80 MG 80 MG t} 80 MG ProAir HFA ProAir HFA No 2{puffs QID ProAir HFA 108 (90 108 (90 _as_nee 108 (90 Base) Base) ded} Base) MCG/ACT MCG/ACT MCG/ACT Gabapentin Gabapentin No Gabapentin 600 MG 600 MG 600 MG traZODone traZODone No QD traZODone HCl 100 MG HCl 100 MG HCl 100 MG Coreg 12.5 Coreg 12.5 No 1{table BID Coreg 12.5 MG MG t} MG Cyclobenzap Cyclobenzap No Cyclobenza rine HCl 10 rine HCl 10 adán HCl MG MG 10 MG Plavix 75 Plavix 75 No 1{table QD Plavix 75 MG MG t} MG Escitalopra Escitalopra No 1{table QD Escitalopr m Oxalate m Oxalate t} am Oxalate 20 MG 20 MG 20 MG Dexcom G6 Dexcom G6 No Dexcom G6 Transmitter Transmitter Transmitte - - r - HumuLIN R HumuLIN R No TID HumuLIN R 100 UNIT/ML 100 UNIT/ML 100 UNIT/ML Lexapro 20 Lexapro 20 No Lexapro 20 MG MG MG traMADol traMADol No 1{table BID traMADol HCl 50 MG HCl 50 MG t_as_ne HCl 50 MG eded} Lipitor 80 Lipitor 80 No 1{table QD Lipitor 80 MG MG t} MG Dexcom G6 Dexcom G6 No Dexcom G6 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 - Dexcom G6 Dexcom G6 No Dexcom G6 Sensor - Sensor - Sensor - Neurontin Neurontin No 1{table QD Neurontin 600 MG 600 MG t} 600 MG Diclofenac Diclofenac No Diclofenac Sodium 75 Sodium 75 Sodium 75 MG MG MG amLODIPine amLODIPine No amLODIPine Besylate 5 Besylate 5 Besylate 5 MG MG MG Clopidogrel Clopidogrel No Clopidogre Bisulfate Bisulfate l 75 MG 75 MG Bisulfate 75 MG HYDROcodone HYDROcodone No 1{table QID HYDROcodon -Acetaminop -Acetaminop t_as_ne e-Acetamin hen 7.5-325 hen 7.5-325 eded} ophen MG MG 7.5-325 MG Tylenol 8 Tylenol 8 No 2{table TID Tylenol 8 Hour 650 MG Hour 650 MG ts_as_n Hour 650 eeded} MG OneTouch OneTouch No OneTouch Ultra Test Ultra Test Ultra Test - - - hydrOXYzine hydrOXYzine No 1{table QID hydrOXYzin HCl 10 MG HCl 10 MG t_as_ne e HCl 10 eded} MG OneTouch OneTouch No OneTouch Ultra - Ultra - Ultra - Furosemide Furosemide No Furosemide 80 MG 80 MG 80 MG Atorvastati Atorvastati No Atorvastat n Calcium n Calcium in Calcium 80 MG 80 MG 80 MG OneTouch OneTouch No QID OneTouch Ultra Test Ultra Test Ultra Test - - - Plavix 75 Plavix 75 No 1{table QD Plavix 75 MG MG t} MG Escitalopra Escitalopra No Escitalopr m Oxalate m Oxalate am Oxalate 20 MG 20 MG 20 MG Carvedilol Carvedilol No Carvedilol 12.5 MG 12.5 MG 12.5 MG Lipitor 80 Lipitor 80 No 1{table QD Lipitor 80 MG MG t} MG Furosemide Furosemide No 1{table BID Furosemide 80 MG 80 MG t} 80 MG ProAir HFA ProAir HFA No 2{puffs QID ProAir HFA 108 (90 108 (90 _as_nee 108 (90 Base) Base) ded} Base) MCG/ACT MCG/ACT MCG/ACT Gabapentin Gabapentin No Gabapentin 600 MG 600 MG 600 MG traZODone traZODone No QD traZODone HCl 100 MG HCl 100 MG HCl 100 MG Coreg 12.5 Coreg 12.5 No 1{table BID Coreg 12.5 MG MG t} MG Cyclobenzap Cyclobenzap No Cyclobenza rine HCl 10 rine HCl 10 adán HCl MG MG 10 MG Plavix 75 Plavix 75 No 1{table QD Plavix 75 MG MG t} MG Escitalopra Escitalopra No 1{table QD Escitalopr m Oxalate m Oxalate t} am Oxalate 20 MG 20 MG 20 MG Dexcom G6 Dexcom G6 No Dexcom G6 Transmitter Transmitter Transmitte - - r - HumuLIN R HumuLIN R No TID HumuLIN R 100 UNIT/ML 100 UNIT/ML 100 UNIT/ML Lexapro 20 Lexapro 20 No Lexapro 20 MG MG MG traMADol traMADol No 1{table BID traMADol HCl 50 MG HCl 50 MG t_as_ne HCl 50 MG eded} Lipitor 80 Lipitor 80 No 1{table QD Lipitor 80 MG MG t} MG Dexcom G6 Dexcom G6 No Dexcom G6 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 - Dexcom G6 Dexcom G6 No Dexcom G6 Sensor - Sensor - Sensor - Neurontin Neurontin No 1{table QD Neurontin 600 MG 600 MG t} 600 MG Diclofenac Diclofenac No Diclofenac Sodium 75 Sodium 75 Sodium 75 MG MG MG amLODIPine amLODIPine No amLODIPine Besylate 5 Besylate 5 Besylate 5 MG MG MG Clopidogrel Clopidogrel No Clopidogre Bisulfate Bisulfate l 75 MG 75 MG Bisulfate 75 MG HYDROcodone HYDROcodone No 1{table QID HYDROcodon -Acetaminop -Acetaminop t_as_ne e-Acetamin hen 7.5-325 hen 7.5-325 eded} ophen MG MG 7.5-325 MG Tylenol 8 Tylenol 8 No 2{table TID Tylenol 8 Hour 650 MG Hour 650 MG ts_as_n Hour 650 eeded} MG OneTouch OneTouch No OneTouch Ultra Test Ultra Test Ultra Test - - - hydrOXYzine hydrOXYzine No 1{table QID hydrOXYzin HCl 10 MG HCl 10 MG t_as_ne e HCl 10 eded} MG OneTouch OneTouch No OneTouch Ultra - Ultra - Ultra - Furosemide Furosemide No Furosemide 80 MG 80 MG 80 MG Atorvastati Atorvastati No Atorvastat n Calcium n Calcium in Calcium 80 MG 80 MG 80 MG OneTouch OneTouch No QID OneTouch Ultra Test Ultra Test Ultra Test - - - Plavix 75 Plavix 75 No 1{table QD Plavix 75 MG MG t} MG Escitalopra Escitalopra No Escitalopr m Oxalate m Oxalate am Oxalate 20 MG 20 MG 20 MG Carvedilol Carvedilol No Carvedilol 12.5 MG 12.5 MG 12.5 MG Lipitor 80 Lipitor 80 No 1{table QD Lipitor 80 MG MG t} MG Furosemide Furosemide No 1{table BID Furosemide 80 MG 80 MG t} 80 MG ProAir HFA ProAir HFA No 2{puffs QID ProAir HFA 108 (90 108 (90 _as_nee 108 (90 Base) Base) ded} Base) MCG/ACT MCG/ACT MCG/ACT Gabapentin Gabapentin No Gabapentin 600 MG 600 MG 600 MG traZODone traZODone No QD traZODone HCl 100 MG HCl 100 MG HCl 100 MG Coreg 12.5 Coreg 12.5 No 1{table BID Coreg 12.5 MG MG t} MG Cyclobenzap Cyclobenzap No Cyclobenza rine HCl 10 rine HCl 10 adán HCl MG MG 10 MG Plavix 75 Plavix 75 No 1{table QD Plavix 75 MG MG t} MG Escitalopra Escitalopra No 1{table QD Escitalopr m Oxalate m Oxalate t} am Oxalate 20 MG 20 MG 20 MG Dexcom G6 Dexcom G6 No Dexcom G6 Transmitter Transmitter Transmitte - - r - HumuLIN R HumuLIN R No TID HumuLIN R 100 UNIT/ML 100 UNIT/ML 100 UNIT/ML Lexapro 20 Lexapro 20 No Lexapro 20 MG MG MG traMADol traMADol No 1{table BID traMADol HCl 50 MG HCl 50 MG t_as_ne HCl 50 MG eded} Lipitor 80 Lipitor 80 No 1{table QD Lipitor 80 MG MG t} MG Dexcom G6 Dexcom G6 No Dexcom G6 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 - Dexcom G6 Dexcom G6 No Dexcom G6 Sensor - Sensor - Sensor - Neurontin Neurontin No 1{table QD Neurontin 600 MG 600 MG t} 600 MG Diclofenac Diclofenac No Diclofenac Sodium 75 Sodium 75 Sodium 75 MG MG MG amLODIPine amLODIPine No amLODIPine Besylate 5 Besylate 5 Besylate 5 MG MG MG Clopidogrel Clopidogrel No Clopidogre Bisulfate Bisulfate l 75 MG 75 MG Bisulfate 75 MG HYDROcodone HYDROcodone No 1{table QID HYDROcodon -Acetaminop -Acetaminop t_as_ne e-Acetamin hen 7.5-325 hen 7.5-325 eded} ophen MG MG 7.5-325 MG Tylenol 8 Tylenol 8 No 2{table TID Tylenol 8 Hour 650 MG Hour 650 MG ts_as_n Hour 650 eeded} MG OneTouch OneTouch No OneTouch Ultra Test Ultra Test Ultra Test - - - hydrOXYzine hydrOXYzine No 1{table QID hydrOXYzin HCl 10 MG HCl 10 MG t_as_ne e HCl 10 eded} MG OneTouch OneTouch No OneTouch Ultra - Ultra - Ultra - Immunizations Ordered Immunization Filled Immunization Date Status [facility] (Low Dose Vaccine (Low Dose 15:39:[address] - [facility] Booster) Booster) [address] COVID19 2021-05-21 Completed [facility] Vaccine (Low Dose Vaccine (Low Dose 15:39:[address] [facility] [facility] 2021-05-21 Com[facility]ine (Low Dose Vaccine (Low Dose 15:39:00 - [facility] Booster) Booster) [facility] 2021-05-21 Completed [facility] Vaccine (Low Dose Vaccine (Low Dose 15:39:00 - [facility] Booster) Booster) [facility] COVID19 [facility] COVID-19 2021-05-21 Completed [facility] Vaccine (Low Dose Vaccine (Low Dose 15:39:00 - [facility] Booster) Booster) [facility] COVID19 Vaccine COVID-19 Vaccine 2020-08-28 Completed [facility] (Aidan) (Aidan) 14:58:00 [facility] COVID-19 Vaccine COVID-19 Vaccine 2020-08-28 Completed [facility] (Aidan) (Aidan) 14:58:00 [facility] COVID-19 Vaccine COVID-19 Vaccine 2020-08-28 Completed [facility] (Aidan) (Aidan) 14:58:00 [facility] COVID-19 Vaccine COVID-19 Vaccine 2020-08-28 Completed [facility] (Aidan) (Aidan) 14:58:00 [facility] COVID-19 Vaccine COVID-19 Vaccine 2020-08-28 Completed [facility] (Aidan) (Aidan) 14:58:00 [facility] Vital Signs Vital Name Observation Time Observation Value Comments Source height 2022-03-19 15:00:00 71 [in_i] [facility] weight 2022-03-19 15:00:00 272.6 [lb_av] Common [facility] temperature 2022-03-19 15:00:00 97.6 [degF] [facility] bmi 2022-03-19 15:00:00 38.02 kg/m2 [facility] oximetry 2022-03-19 15:00:00 95 % [facility] respiratory rate 2022-03-19 15:00:00 16 /min Comm on [facility] blood pressure 2022-03-19 15:00:00 129 mm[Hg] Common [facility] - systolic [facility] blood pressure 2022-03-19 15:00:00 74 mm[Hg] Common [facility] - diastolic [facility] Procedures Procedure Date / Time Performed Performing Clinician Felicitas e REFERRAL- 2020-12-09 05:01:00 Doctor Unassigned, No [facility] REQUEST/RESPONSE Name Medical Branch MR ORBIT W WO CONTRAST 2020-04-11 17:19:58 Requisition, [facility] [place] [facility] MR BRAIN W WO CONTRAST 2020-04-11 17:18:18 Requisition, Paper [facility] ASSIGNMENT OF BENEFITS 2020-04-11 15:07:27 Doctor Unassigned, No [facility] Name Medical Branch Encounters Start End Encounter Admission Attending Care Care Encounter Source Date/Time Date/Time Type Type Clinicians Facility Department ID 2022-04-28 Outpatient Grullon, STLMLC STLMLC [id number] Common 15:58:01 Michael [facility] 2022-04-20 Outpatient Grullon, STLMLC STLMLC [id number] Common 12:08:00 Michael [facility] 2022-04-09 Outpatient Grullon, STLMLC STLMLC [id number] Common 09:12:00 Michael [facility] 2022-03-23 Outpatient Grullon, STLMLC STLMLC [id number] Common 07:50:00 Michael [facility] 2021-12-18 Outpatient Grullon, STLMLC STLMLC [id number] Common 08:02:00 Michael [facility] 2021-08-11 Outpatient Grullon, STLMLC STLMLC [id number] Common 16:05:00 Michael [facility] 2021-07-14 Outpatient Grullon, STLMLC STLMLC [id number] Common 13:55:00 Michael [facility] 2021-07-09 Outpatient Grullon, STLMLC STLMLC [id number] Common 14:23:13 Michael [facility] 2021-07-09 Outpatient Grullon, STLMLC STLC [id number] Common 14:22:30 Michael [id number] [facility] 2021-07-09 Outpatient Grullon, STLMLC STLMLC [id number] Common 13:29:39 Michael 43221 [facility] 2021-07-09 Outpatient Grullon, STLMLC STLMLC [id number] Common 13:26:23 Michael [id number] [facility] 2021-07-09 Outpatient Grullon, STLMLC STLMLC [id number] Common 13:17:32 Michael [id number] [facility] 2021-07-09 Outpatient Grullon, STLMLC STLC [id number] Common 13:06:07 Michael [id number] [facility] 2021-07-09 Outpatient Grullon, STLMLC STLC [id number] Common 13:02:38 Michael 99718 [facility] 2021-07-09 Outpatient Grullon, STLMLC STLC [id number] Common 13:01:30 Michael 95419 [facility] 2021-07-09 Outpatient Grullon, STLMLC STLC Common 12:41:52 Michael 45058 [facility] 2021-07-09 Outpatient Grullon, STLMLC STLC Common 12:41:22 Michael 67209 [facility] 2021-07-09 Outpatient Grullon, STLMLC STLC Common 12:40:21 Michael [id number] [facility] 2021-07-09 Outpatient Grullon, STLMLC STLMLC [id number] Common 12:09:50 Michael [id number] [facility] 2021-07-09 Outpatient Grullon, STLMLC STLC [id number] Common 12:08:25 Michael [id number] [facility] 2021-07-09 Outpatient Grullon, STLMLC STLC [id number] Common 12:07:24 Michael 99480 [facility] 2021-07-09 Outpatient Grullon, STLMLC STLMLC [id number] Common 11:39:10 Michael [id number] [facility] 2021-07-09 Outpatient Grullon, STLMLC STLMLC [id number] Common 11:27:55 Michael [id number] [facility] 2021-07-09 Outpatient Grullon, STLMLC STLMLC [id number] Common 11:20:48 Michael [id number] [facility] 2021-07-09 Outpatient [place], STLMLC STLMLC [id number] Common 11:15:28 Michael [id number] [facility] 2022-04-09 2022-04-09 (TEL) STLMLC STLMLC [id number] [facility] 00:00:00 00:00:00 [facility] 2022-04-09 2022-04-09 (TEL) STLMLC STLMLC [id number] Co [facility]mon 00:00:00 00:00:00 [facility] 2022-04-06 2022-04-06 (TEL) STLMLC STLMLC [id number] [facility] 00:00:00 00:00:00 [facility] 2022-03-27 2022-03-27 (TEL) STLMLC STLMLC [id number] Co [facility]mon 00:00:00 00:00:00 [facility] 2022-03-19 2022-03-19 OFFICE STLMLC STLMLC [id number] [facility] 00:00:00 00:00:00 VISIT [facility] LEVEL 4 [facility] 2021-12-31 2021-12-31 ambulatory STLMLC STLMLC [id number] Common 00:00:00 00:00:00 [facility] 2021-12-31 2021-12-31 ambulatory STLMLC STLMLC [id number] Common 00:00:00 00:00:00 [facility] 2021-12-23 2021-12-23 ambulatory STLMLC STLMLC [id number] Common 00:00:00 00:00:00 [facility] 2021-12-22 2021-12-22 ambulatory STLMLC STLMLC [id number] Common 00:00:00 00:00:00 [facility] 2021-12-17 2021-12-17 ambulatory STLMLC STLMLC [id number] Common 00:00:00 00:00:00 [facility] 2021-11-21 2021-11-21 ambulatory STLMLC STLMLC [id number] Common 00:00:00 00:00:00 [facility] 2021-09-03 2021-09-03 ambulatory STLMLC STLMLC [id number] Common 00:00:00 00:00:00 [facility] 2021-09-03 2021-09-03 ambulatory STLMLC STLMLC [id number] Common 00:00:00 00:00:00 [facility] 2021-07-14 2021-07-14 ambulatory STLMLC STLMLC [id number] Common 00:00:00 00:00:00 [facility] 2021-07-07 2021-07-07 ambulatory STLMLC STLMLC [id number] Common 00:00:00 00:00:00 [facility] 2021-06-10 2021-06-10 ambulatory STLMLC STLMLC [id number] Common 00:00:00 00:00:00 [facility] 2021-05-21 2021-05-21 ambulatory STLMLC STLMLC [id number] Common 00:00:00 00:00:00 [facility] 2021-05-21 2021-05-21 ambulatory STLMLC STLMLC [id number] Common 00:00:00 00:00:00 [facility] 2021-05-14 2021-05-14 ambulatory STLMLC STLMLC [id number] Common 00:00:00 00:00:00 [facility] 2021-05-12 2021-05-12 ambulatory STLMLC STLMLC [id number] Common 00:00:00 00:00:00 [facility] 2021-04-07 2021-04-07 ambulatory STLMLC STLMLC [id number] Common 00:00:00 00:00: [facility] 2021-03-18 2021-03-18 Outpatient STLMLC STLMLC [id number] Common 00:00:00 00:00:00 [facility] 2021-03-17 2021-03-17 Outpatient STLMLC STLMLC [id number] Common 00:00:00 00:00:00 [facility] 2021-01-16 2021-01-16 Letter EVELYN Grullon [id number] Univers 00:00:00 00:00:00 (Out) Michael Miguel KAMALJIT [id number] i [id number] [place] [id number] [facility] 043 Branch 2021-01-15 2021-01-15 Outpatient STLMLC STLMLC [id number] Common 00:00:00 00:00:00 [facility] 2021-01-15 2021-01-15 Outpatient STLMLC STLMLC [id number] Common 00:00:00 00:00:00 [facility] 2021-01-15 2021-01-15 Outpatient STLMLC STLMLC [id number] Common 00:00:00 00:00:00 [facility] 2021-01-14 2021-01-14 Outpatient STLMLC STLMLC [id number] Common 00:00:00 00:00:00 [facility] 2020-12-31 2020-12-31 Outpatient STLMLC STLMLC [id number] Common 00:00:00 00:00:00 [facility] 2020-12-09 2020-12-09 Elio RIVAS [id number] Univers 00:00:00 00:00:00 Only Unassigned, KAMALJIT [id number] ity of [place] [id number] [place] as [id number] [facility] 009 Branch 2020-12-02 2020-12-02 Outpatient STLMLC STLMLC [id number] Common 00:00:00 00:00:00 [facility] 2020-12-02 2020-12-02 Outpatient STLMLC STLMLC [id number] Common 00:00:00 00:00:00 [facility] 2020-11-18 2020-11-18 Outpatient STLMLC STLMLC [id number] Common 00:00:00 00:00:00 [facility] 2020-11-05 2020-11-05 Outpatient STLMLC STLMLC [id number] Common 00:00:00 00:00:00 [facility] 2020-11-04 2020-11-04 Outpatient STLMLC STLMLC [id number] Common 00:00:00 00:00:00 [facility] 2020-10-25 2020-10-25 Outpatient STLMLC STLMLC [id number] Common 00:00:00 00:00:00 [facility] 2020-10-16 2020-10-16 Outpatient STLMLC STLMLC [id number] Common 00:00:00 00:00:00 [facility] 2020-10-15 2020-10-15 Outpatient STLMLC STLMLC [id number] Common 00:00:00 00:00:00 [facility] 2020-10-15 2020-10-15 Outpatient STLMLC STLMLC [id number] Common 00:00:00 00:00:00 [facility] 2020-09-26 2020-09-26 Outpatient STLMLC STLMLC [id number] Common 00:00:00 00:00:00 [facility] 2020-08-28 2020-08-28 Outpatient STLMLC STLMLC [id number] Common 00:00:00 00:00:00 [facility] 2020-08-27 2020-08-27 Outpatient STLMLC STLMLC [id number] Common 00:00:00 00:00:00 [facility] 2020-05-14 2020-05-14 Outpatient STLMLC STLMLC [id number] Common 00:00:00 00:00:00 [facility] 2020-05-06 2020-05-06 Outpatient STLMLC STLMLC [id number] Common 00:00:00 00:00:00 [facility] 2020-04-11 2020-04-11 [facility] Radiology [facility] [id number] 10:11:59 23:59:00 Encounter [place] [id number] [place] [id number] [place] [id number] 2020-04-11 2020-04-11 [facility] Radiology [facility] [id number] Univers 10:11:59 23:59:00 Encounter [place] [id number] [id number] [id number] [place] 154334 [place] 2020-04-11 2020-04-11 [facility] Radiology [facility] [id number] Univers 10:11:08 23:59:00 Encounter [place] [id number] [id number] [id number] [facility] [address] [place] [address] 2020-04-11 2020-04-11 [facility] [place]iology [place] [id number] 10:11:08 23:59:00 Encounter [place] [id number] [place] [id number] [place] [id number] [facility] 2020-04-11 2020-04-11 Outpatient R RADIOLOGY [facility] [id number] Univers 00:00:00 00:00:00 ity of [facility] 2020-04-11 2020-04-11 Orders Doctor RIVAS [id number] Univers 00:00:00 00:00:00 Only Unassigned, KAMALJIT [id number] ity of [place] [facility] [id number] [place] [id number] [address] 2020-04-11 2020-04-11 Orders Doctor RIVAS [id number] 00:00:00 00:00:00 Only Unassigned, KAMALJIT [id number] [place] [facility] [id number] 009 2020-02-07 2020-02-07 [facility] [id number] Common 11:20:00 11:20:[address] [facility] 2020-01-29 2020-01-29 [facility] [id number] Common 11:40:00 11:40:[address] [facility] 2020-01-16 2020-01-16 [facility] [id number] Common 11:15:00 11:15:[address] [facility] 2019-12-04 2019-12-04 [facility] [id number] Common 10:50:00 10:50:[address] [facility] 2019-11-08 2019-11-08 [facility] [id number] Common 15:00:00 15:00:[address] [facility] 2019-11-08 2019-11-08 [facility] [id number] Common 14:15:00 14:15:[address] [facility] 2019-10-27 2019-10-27 [facility] [id number] Common 11:15:00 11:15:[address] [facility] 2019-10-24 2019-10-24 [facility] [id number] Common 16:04:00 16:04:[address] [facility] 2019-10-20 2019-10-20 [facility] [id number] Common 13:40:00 13:40:[address] [facility] 2019-10-18 2019-10-18 [facility] [id number] Common 14:05:00 14:05:[address] [facility] 2019-09-21 2019-09-21 [facility] [id number] Common 16:45:00 16:45:[address] [facility] 2019-09-05 2019-09-05 [facility] [id number] Common 10:30:00 10:30:[address] [facility] 2019-08-08 2019-08-08 [facility] [id number] Common 15:00:00 15:00:[address] [facility] 2019-07-26 2019-07-26 [facility] [id number] Common 16:37:00 16:37:[address] [facility] 2019-06-22 2019-06-22 [facility] [id number] Common 14:45:00 14:45:[address] [facility] 2019-06-19 2019-06-19 [facility] [id number] Common 15:45:00 15:45:[address] [facility] 2019-05-31 2019-05-31 [facility] [id number] Common 15:15:00 15:15:[address] [facility] 2019-05-03 2019-05-03 [facility] [id number] Common 10:37:00 10:37:[address] [facility] 2019-04-17 2019-04-17 [facility] [id number] Common 14:08:00 14:08:[address] [facility] 2019-04-17 2019-04-17 [facility] [id number] Common 13:30:00 13:30:[address] [facility] 2019-03-28 2019-03-28 [facility] [id number] Common 14:44:00 14:44:[address] [facility] 2019-03-23 2019-03-23 [facility] [id number] Common 14:15:00 14:15:[address] [facility] 2019-03-02 2019-03-02 [facility] [id number] Common 15:10:00 15:10:[address] [facility] 2019-02-23 2019-02-23 [facility] [id number] Common 10:00:00 10:00:[address] [facility] 2019-01-20 2019-01-20 Outpatient [id number] Common 13:43:00 13:43:[address] [facility] 2018-12-29 2018-12-29 [id number] Common 14:42:00 14:42:[address] [facility] 2018-12-21 2018-12-21 [facility] [id number] Common 14:30:00 14:30:[address] [facility] 2018-12-06 2018-12-06 [facility] [id number] Common 14:04:00 14:04:[address] [facility] 2018-10-10 2018-10-10 [facility] [id number] Common 15:00:00 15:00:[address] [facility] 2018-09-16 2018-09-16 [facility] [id number] Common 11:25:00 11:25:[address] [facility] 2018-09-12 2018-09-12 [facility] [id number] Common 14:15:00 14:15:[address] [facility] 2018-08-11 2018-08-11 [facility] [id number] Common 13:45:00 13:45:[address] [facility] 2018-06-21 2018-06-21 [facility] [id number] Common 10:15:00 10:15:[address] [facility] 2018-05-30 2018-05-30 [facility] [id number] Common 10:28:00 10:28:[address] [facility] 2018-03-16 2018-03-16 [facility] [id number] Common 15:07:00 15:07:[address] [facility] 2018-03-14 2018-03-14 [facility] [id number] Common 15:00:00 15:00:[address] [facility] 2018-02-28 2018-02-28 [facility] [id number] Common 16:46:00 16:46:[address] [facility] 2018-02-11 2018-02-11 [facility] [id number] Common 09:17:00 09:17:[address] [facility] 2018-02-04 2018-02-04 [facility] [id number] Common 14:14:00 14:14:[address] [facility] 2018 2018 Outpatient [facility] [id number] Common 15:57:00 15:57:[address] [facility] 2018-01-12 2018-01-12 [facility] [id number] Common 14:34:00 14:34:[address] [facility] 2018-01-10 2018-01-10 [facility] [id number] Common 15:15:00 15:15:[address] [facility] 2017-11-22 2017-11-22 [facility] [id number] Common 09:36:00 09:36:[address] [facility] 2017-11-10 2017-11-10 [facility] [id number] Common 13:30:00 13:30:[address] [facility] 2017-09-29 2017-09-29 [facility] [id number] Common 13:00:00 13:00:[address] [facility] Results Test Test Test Results Result Source Description Time Comments Comments MR BRAIN W WO 2020-03- Patient motion degrades [employer] [facility] 29 image quality, mildly [facility] as [facility] 18:04:12 limiting Branch evaluation,particularly of the orbits. No acute intracranial or orbital abnormality is present. Questionableatrophy of the right optic nerve but evaluation is limited due to patientmotion. Remote, lacunar infarct of the right hemipons. MR BRAIN W WO CONTRAST, MR ORBIT W WO CONTRAST HISTORY: Male 55 years COMPARISON: None TECHNIQUE: Multiplanar multi weighted imaging of the brain and orbits wasobtained before and following the administration of 15 mL IV ProHance FINDINGS: MRI brain: The ventricles and cerebral sulci are normal in caliber and configuration.No hydrocephalus, midline shift or pathological extra-axial fluidcollection is present. The basal cisterns are unremarkable. No restricted diffusion is present to suggest acute-subacute ischemia. Aremote lacunar infarct is noted in the right ventral hemipons. Noadditional parenchymal signal abnormality is present. No focus of abnormalparenchymal gradient blooming is present. No focus of abnormal parenchymalenhancement is present. No abnormal fluid signal is present in the mastoid air cells or paranasalair sinuses. The T2 flow voids for the major intracranial vessels areunremarkable. The globes are normal in morphology. Bilateral cataract surgeries arenoted. No enhancement is seen along the course of the optic nerves. Questionableatrophy of the right optic nerve but evaluation is limited due to patientmotion. The pituitary and suprasellar cistern are unremarkable. The extraocular muscles, lacrimal glands, and superior ophthalmic veins aresymmetric. The retrobulbar fat is unremarkable. No orbital mass is present. [facility], Radiant Results Inft User - 04/11/2020 1:05 PM CDTMR BRAIN W WO CONTRAST, MR ORBIT W WO CONTRASTHISTORY: Male 55 yearsCOMPARISON: NoneTECHNIQUE: Multiplanar multi weighted imaging of the brain and orbits wasobtained before and following the administration of 15 mL IV ProHanceFINDINGS:MRI brain:The ventricles and cerebral sulci are normal in caliber and configuration.No hydrocephalus, midline shift or pathological extra-axial fluidcollection is present. The basal cisterns are unremarkable.No restricted diffusion is present to suggest acute-subacute ischemia. Aremote lacunar infarct is noted in the right ventral hemipons. Noadditional parenchymal signal abnormality is present. No focus of abnormalparenchymal gradient blooming is present. No focus of abnormal parenchymalenhancement is present.No abnormal fluid signal is present in the mastoid air cells or paranasalair sinuses. The T2 flow voids for the major intracranial vessels areunremarkable.The globes are normal in morphology. Bilateral cataract surgeries arenoted.No enhancement is seen along the course of the optic nerves. Questionableatrophy of the right optic nerve but evaluation is limited due to patientmotion.The pituitary and suprasellar cistern are unremarkable.The extraocular muscles, lacrimal glands, and superior ophthalmic veins aresymmetric. The retrobulbar fat is unremarkable. No orbital mass is present.IMPRESSIONPatient motion degrades image quality, mildly limiting evaluation,particularly of the orbits.No acute intracranial or orbital abnormality is present. Questionableatrophy of the right optic nerve but evaluation is limited due to patientmotion.Remote, lacunar infarct of the right hemipons. MR ORBIT W WO 2020-03- Patient motion degrades [facility] 29 image quality, mildly [facility] 18:04:12 limiting Branch evaluation,particularly of the orbits. No acute intracranial or orbital abnormality is present. Questionableatrophy of the right optic nerve but evaluation is limited due to patientmotion. Remote, lacunar infarct of the right hemipons. MR BRAIN W WO CONTRAST, MR ORBIT W WO CONTRAST HISTORY: Male 55 years COMPARISON: None TECHNIQUE: Multiplanar multi weighted imaging of the brain and orbits wasobtained before and following the administration of 15 mL IV ProHance FINDINGS: MRI brain: The ventricles and cerebral sulci are normal in caliber and configuration.No hydrocephalus, midline shift or pathological extra-axial fluidcollection is present. The basal cisterns are unremarkable. No restricted diffusion is present to suggest acute-subacute ischemia. Aremote lacunar infarct is noted in the right ventral hemipons. Noadditional parenchymal signal abnormality is present. No focus of abnormalparenchymal gradient blooming is present. No focus of abnormal parenchymalenhancement is present. No abnormal fluid signal is present in the mastoid air cells or paranasalair sinuses. The T2 flow voids for the major intracranial vessels areunremarkable. The globes are normal in morphology. Bilateral cataract surgeries arenoted. No enhancement is seen along the course of the optic nerves. Questionableatrophy of the right optic nerve but evaluation is limited due to patientmotion. The pituitary and suprasellar cistern are unremarkable. The extraocular muscles, lacrimal glands, and superior ophthalmic veins aresymmetric. The retrobulbar fat is unremarkable. No orbital mass is present. [facility], Radiant Results Inft User - 04/11/2020 1:05 PM CDTMR BRAIN W WO CONTRAST, MR ORBIT W WO CONTRASTHISTORY: Male 55 yearsCOMPARISON: NoneTECHNIQUE: Multiplanar multi weighted imaging of the brain and orbits wasobtained before and following the administration of 15 mL IV ProHanceFINDINGS:MRI brain:The ventricles and cerebral sulci are normal in caliber and configuration.No hydrocephalus, midline shift or pathological extra-axial fluidcollection is present. The basal cisterns are unremarkable.No restricted diffusion is present to suggest acute-subacute ischemia. Aremote lacunar infarct is noted in the right ventral hemipons. Noadditional parenchymal signal abnormality is present. No focus of abnormalparenchymal gradient blooming is present. No focus of abnormal parenchymalenhancement is present.No abnormal fluid signal is present in the mastoid air cells or paranasalair sinuses. The T2 flow voids for the major intracranial vessels areunremarkable.The globes are normal in morphology. Bilateral cataract surgeries arenoted.No enhancement is seen along the course of the optic nerves. Questionableatrophy of the right optic nerve but evaluation is limited due to patientmotion.The pituitary and suprasellar cistern are unremarkable.The extraocular muscles, lacrimal glands, and superior ophthalmic veins aresymmetric. The retrobulbar fat is unremarkable. No orbital mass is present.IMPRESSIONPatient motion degrades image quality, mildly limiting evaluation,particularly of the orbits.No acute intracranial or orbital abnormality is present. Questionableatrophy of the right optic nerve but evaluation is limited due to patientmotion.Remote, lacunar infarct of the right hemipons.
[2022-04-30] MEDS ORDERED: CYCLOBENZAPRINE 10 MG TAB ONE (01:14)
[2022-04-30] MEDS ORDERED: KETOROLAC 30 MG/ML INJ ONE (01:15)
[2022-04-30] MEDS ORDERED: DIPHENHYDRAMINE 25 MG TAB/CAP ONE (01:31)
[2022-04-30 03:09] LABS: Urine Blood Negative (Negative); Urine Glucose Negative (Negative); Urine Protein 1+ (Negative); Urine Specific Gravity 1.025 (1.005-1.030); Urine pH 5.5 (5.0-7.0)
[2022-04-30 03:26] LABS: Urine Mucus Slight /HPF (None Seen)
[2022-04-30] MEDS ORDERED: MORPHINE 4 MG/ML SYR ONE (03:34)
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
[2022-04-30 05:18] VITALS: BP 146/63; O2SAT 97
--- NOTE | 2022-04-30 13:38 | RAD REPORT ---
EXAM DESCRIPTION: CT Abdomen and Pelvis Without Intravenous Contrast CLINICAL HISTORY: The patient is 57 years old and is Male; pain TECHNIQUE: Axial computed tomography images of the abdomen and pelvis without intravenous contrast. Sagittal and coronal reformatted images were created and reviewed. This CT exam was performed usi ng one or more of the following dose reduction techniques: automated exposure control, adjustment o f the mA and/or kV according to patient size, and/or use of iterative reconstruction technique. COMPARISON: No relevant prior studies available. FINDINGS: Lung bases: Unremarkable. No mass. No consolidation. ABDOMEN: Liver: Unremarkable. Gallbladder and bile ducts: Hyperdensity in the dependent gallbladder which may represent gallbla dder sludge or small gallstones. No ductal dilation. Pancreas: Unremarkable. No ductal dilation. Spleen: Calcified granulomas in the spleen. Adrenals: Unremarkable. No mass. Kidneys and ureters: Unremarkable. No obstructing stones. No hydronephrosis. Stomach and bowel: Unremarkable. No obstruction. No mucosal thickening. PELVIS: Appendix: No findings to suggest acute appendicitis. Bladder: Unremarkable. Reproductive: Unremarkable as visualized. ABDOMEN and PELVIS: Intraperitoneal space: Unremarkable. No free air. No significant fluid collection. Bones/joints: No acute fracture. No dislocation. Soft tissues: Unremarkable. Vasculature: Scattered atherosclerotic vascular calcifications. No abdominal aortic aneurysm. Lymph nodes: Unremarkable. No enlarged lymph nodes. IMPRESSION: No acute finding in the abdomen/pelvis. Electronically signed by: Nathaniel Mckeon MD 04/30/2022 1:22 AM PROFESSOR OF PSYCHIATRY Due to temporary technical issues with the PACS/Fluency reporting system, reports are being signed by the in house radiologists without review as a courtesy to insure prompt reporting. The interpreting radiologist is fully responsible for the content of the report.
== END 2022-04-30 05:00 | disposition home or self-care (01) ==
LOC: ER 23:55
DX: M54.50 Low back pain, unspecified (principal); E11.9 Type 2 diabetes mellitus without complications; Z79.4 Long term (current) use of insulin; I10 Essential (primary) hypertension; Z79.01 Long term (current) use of anticoagulants; Z95.818 Presence of other cardiac implants and grafts
CPT/HCPCS: 74176; 81003; 81015; 96372; 99284

== ENCOUNTER 2022-06-07 20:55 | Inpatient (IN) | payer OTHER ==
--- OUTSIDE RECORDS SUMMARY | 2022-06-07 21:03 | XMS REPORT | Continuity of Care Document ---
:1965 Author Organization [facility] t Address [address] [place] [address] Dr. [address]. [address] [place] [address] Care Team Providers Name Role Phone Michael Grullon Attending Clinician Unavailable Michael Grullon Attending Clinician Doctor Unassigned, [place] Attending Clinician Unavailable Radiology Attending Clinician Unavailable RADIOLOGY Attending Clinician Unavailable Michael Grullon Admitting Clinician Unavailable Payers Payer Name Policy Type Policy Number Effective Date Expiration Date Megan schuster [facility] [id number] 2021 2022 [facility] ADVANTAGE 00:00:00 00:00:00 - [facility] Problems Condition Condition Condition Status Onset Resolution Last Treating Co mments Source Name Details Category Date Date Treatment Clinician Date Dyslipidem Dyslipidem Disease Active 2015-06 U nivers ia ia 1-16 ity of 00:00: [place] 00 Medical Branch Diabetes Diabetes Disease Active Unive rs mellitus, mellitus, 9-22 ity of insulin insulin 00:00: [place] dependent dependent 00 Medi marck (IDDM), (IDDM), Branch uncontroll uncontroll ed ed Retinopath Retinopath Disease Active U nivers y y 9-22 ity of 00:00: [place] [address] 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) [facility] without Medical residual Center deficits [id number] Dog bite, Problem Com mon subsequent Spirit encounter [facility] [id number] Wound of Problem Comm on left lower Spirit extremity, - CHI subsequent [facility] [id number] HTN Problem Common (hypertens Spirit ion), - [facility] benign [facility] Insomnia Insomnia Problem Commo n Spirit - [facility] [id number] Venous Problem Common insufficie Spirit ncy of [facility] both lower [facility] [id number] Other Problem Common chronic [facility] pain [facility] [id number] 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 [id number] Tubular Problem Commo n adenoma of Spirit colon [facility] [id number] Local Problem Common infection [facility] of the [facility] tissue, Medica l unspecifie Center d [id number] Cellulitis Problem C ommon [id number] of left Spirit lower - CHI extremity [facility] Left sided Left sided Problem C ommon ulcerative colitis Spiri t colitis with - CHI complicati [facility] [id number] Moderate Problem Commo n major Spirit depression - [facility] , single [facility] [id number] PAD Problem Common (periphera [facility] l artery - CHI disease) [facility] [id number] Pain in Problem Comm on [id number] left Spirit shoulder - [facility] [id number] Spinal Problem Common stenosis, Spirit lumbosacra - [facility] l region [facility] Hyperglyce Type 2 Problem Commo n bryan due to diabetes Spir it type 2 mellitus - [facility] diabetes with St mellitus hyperglyce [facility], Medical unspecifie Center d whether senior living insulin use [id number] Type 1 Problem Common diabetes [facility] mellitus - [facility] with other [facility] neurologic [facility] Center complicati on Atheroscle 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 [id number] Morbid Problem Commo n [id number] (severe) [facility] obesity - CHI due to [facility] [id number] Body mass Problem Com mon index [facility] [BMI] - [facility] 38.0-38.9, [facility] [id number] Left elbow Problem Com mon pain [facility] Sciatica Sciatic Problem Common pain, left [facility] [id number] Acute pain Problem Com mon of left [facility] shoulder [facility] Peripheral Peripheral Problem C ommon neuropathy neuropathy Sp marissa [facility] Chronic Chronic Problem Common back pain back pain Spir it [facility] Hyperlipid Hyperlipid Problem C ommon emia emia [facility] Mixed Depression Problem Commo n anxiety with [facility] and anxiety - [facility] depressive [facility] Allergies, Adverse Reactions, Alerts Allergy Allergy Status Severity Reaction(s) Onset Inactive Treating Comm ents Source Name Type Date Date Clinician NO KNOWN Drug Active Univers ALLERGIE Class ity of S [facility] Social History Social Habit Start Date Stop Date Quantity Comments Source Exposure to Unable to assess Univers ity of SARS-CoV-2 [place] [facility] (event) Branch History of [facility] - Tobacco Use [facility] Sex Assigned At [facility] Sp marissa - [facility] Tobacco use and 2017-10-10 2017-10-10 Never used Universit y of exposure 00:00:00 00:00:00 [facility] Alcohol intake 2017-10-10 2017-10-10 Current University 00:00:00 00:00:00 non-drinker of [facility] alcohol Branch (finding) Smoking Status Start Date Stop Date Source Never Smoker [facility] Medications Ordered Filled Start Stop Current Ordering Indication Dosage Frequency Signature Comments Components Source Medication Medication Date Date Medication? Clinician (SIG) Name Name Carine 7.5 Mobic 7.5 2021-06- No 1{table QD Mobic 7.5 MG MG 07-28 t} MG 00:00: 00:00 00 :00 Mobic 7.5 Mobic 7.5 2021-06- No 1{table QD Mobic 7.5 MG MG 07-28 t} MG 00:00: 00:00 00 :00 Ashley Kenalog 0 No 40mg Common (Triamcinol (Triamcinol 7-20 S pirit one) one) 00:00: - CHI 00 [facility] Ashley Kenalog 0 No 40mg Common (Triamcinol (Triamcinol 7-20 S pirit one) one) 00:00: - CHI 00 [facility] Ashley Kenalog 0 No 40mg Common (Triamcinol (Triamcinol 7-20 S pirit one) one) 00:00: - CHI 00 [facility] Ashley Kenalog 0 No 40mg Common (Triamcinol (Triamcinol 7-20 S pirit one) one) 00:00: - CHI 00 [facility] Ashley Kenalog 0 No 40mg Common (Triamcinol (Triamcinol 7-20 S pirit one) one) 00:00: - CHI 00 [facility] Ashley Kenalog 2021-0 No 40mg Common (Triamcinol (Triamcinol 7-20 S pirit one) one) 00:00: - CHI 00 [facility] Ashley Kenalog 0 No 40mg Common (Triamcinol (Triamcinol 7-20 S pirit one) one) 00:00: - CHI 00 [facility] Ashley Kenalog 0 No 40mg Common (Triamcinol (Triamcinol 7-20 S pirit one) one) 00:00: - CHI 00 [facility] Kenalog Kenalog 0 No 40mg Common (Triamcinol (Triamcinol 7-20 S pirit one) one) 00:00: - CHI 00 [facility] HumuLIN HumuLIN 2022-0 No BID HumuLIN 70/30 70/30 7- 70/30 (70-30) 100 (70-30) 100 00:00: (70-30) UNIT/ML UNIT/ML 00 100 UNIT/ML Insulin Insulin 2022-0 No Insulin Syringe-Nee Syringe-Nee - Syringe-Ne dle U-100 dle U-100 00:00: edle U-100 31G X 5/16" 31G X 5/16" 00 31G X 1 ML 1 ML 16" 1 ML HumuLIN HumuLIN 2022-0 No BID HumuLIN 70/30 70/30 - 70/30 (70-30) 100 (70-30) 100 00:00: (70-30) UNIT/ML UNIT/ML 00 100 UNIT/ML Insulin Insulin 2022-0 No Insulin Syringe-Nee Syringe-Nee 12-23 Syringe-Ne dle U-100 dle U-100 00:00: edle U-100 31G X 5/16" 31G X 5/16" 00 31G X 1 ML 1 ML 16" 1 ML HumuLIN HumuLIN 2022-0 No BID HumuLIN 70/30 70/30 - 70/30 (70-30) 100 (70-30) 100 00:00: (70-30) UNIT/ML UNIT/ML 00 100 UNIT/ML Insulin Insulin 2022-0 No Insulin Syringe-Nee Syringe-Nee 12-23 Syringe-Ne dle U-100 dle U-100 00:00: edle U-100 31G X 5/16" 31G X 5/16" 00 31G X 1 ML 1 ML 16" 1 ML HumuLIN HumuLIN 2022-0 No BID HumuLIN 70/30 70/30 - 70/30 (70-30) 100 (70-30) 100 00:00: (70-30) UNIT/ML UNIT/ML 00 100 UNIT/ML Insulin Insulin 2022-0 No Insulin Syringe-Nee Syringe-Nee -12 Syringe-Ne dle U-100 dle U-100 00:00: edle U-100 31G X 5/16" 31G X 5/16" 00 31G X 1 ML 1 ML 16" 1 ML HumuLIN HumuLIN 2022-0 No BID HumuLIN 70/30 70/30 7-12 70/30 (70-30) 100 (70-30) 100 00:00: (70-30) UNIT/ML UNIT/ML 00 100 UNIT/ML Insulin Insulin 2021-0 No Insulin Syringe-Nee Syringe-Nee 7-12 Syringe-Ne dle U-100 dle U-100 00:00: edle U-100 31G X 5/16" 31G X 5/16" 00 31G X 1 ML 1 ML 5/16" 1 ML HumuLIN HumuLIN 2021-0 No BID HumuLIN 70/30 70/30 7-12 70/30 (70-30) 100 (70-30) 100 00:00: (70-30) UNIT/ML UNIT/ML 00 100 UNIT/ML Insulin Insulin 2021-0 No Insulin Syringe-Nee Syringe-Nee 7-12 Syringe-Ne dle U-100 dle U-100 00:00: edle U-100 31G X 5/16" 31G X 5/16" 00 31G X 1 ML 1 ML 5/16" 1 ML Insulin Insulin 2021-0 No Insulin Syringe-Nee Syringe-Nee 7-12 Syringe-Ne dle U-100 dle U-100 00:00: edle U-100 31G X 5/16" 31G X 5/16" 00 31G X 1 ML 1 ML 5/16" 1 ML Insulin Insulin 2021-0 No Insulin Syringe-Nee Syringe-Nee 7-12 Syringe-Ne dle U-100 dle U-100 00:00: edle U-100 31G X 5/16" 31G X 5/16" 00 31G X 1 ML 1 ML 5/16" 1 ML Insulin Insulin 2021-0 No Insulin Syringe-Nee Syringe-Nee 7-12 Syringe-Ne dle U-100 dle U-100 00:00: edle U-100 31G X 5/16" 31G X 5/16" 00 31G X 1 ML 1 ML 5/16" 1 ML Lidocaine Lidocaine 2021-0 No 10mg Com mon -31 Spirit 00:00: - CHI 00 [facility] Kenalog Kenalog 2021-0 No 40mg Common (Triamcinol (Triamcinol 1-31 S pirit one) one) 00:00: - CHI 00 [facility] Lidocaine Lidocaine 2-0 No 10mg Com 07-14 Spirit 00:00: - CHI 00 [facility] Kenalog Kenalog 2-0 No 40mg Common (Triamcinol (Triamcinol 1-31 S pirit one) one) 00:00: - CHI 00 [facility] Lidocaine Lidocaine 2-0 No 10mg Com 07-14 Spirit 00:00: - CHI 00 [facility] Kenalog Kenalog 2-0 No 40mg Common (Triamcinol (Triamcinol 1-31 S pirit one) one) 00:00: - [facility] Lidocaine Lidocaine 2-0 No 10mg Com 07-14 Spirit 00:00: - CHI 00 [facility] Kenalog Kenalog 2-0 No 40mg Common (Triamcinol (Triamcinol 1-31 S pirit one) one) 00:00: - CHI [facility] Lidocaine Lidocaine 2-0 No 10mg Com 07-14 Spirit 00:00: - CHI 00 [facility] Kenalog Kenalog 2-0 No 40mg Common (Triamcinol (Triamcinol 1-31 S pirit one) one) 00:00: - CHI 00 [facility] Lidocaine Lidocaine 2-0 No 10mg Com 07-14 Spirit 00:00: - [facility] Kenalog Kenalog 2-0 No 40mg Common (Triamcinol (Triamcinol 1-31 S pirit one) one) 00:00: - CHI 00 [facility] Lidocaine Lidocaine 2-0 No 10mg Com 07-14 Spirit 00:00: - CHI 00 [facility] Kenalog Kenalog 2-0 No 40mg Common (Triamcinol (Triamcinol 1-31 S pirit one) one) 00:00: - CHI 00 [facility] Lidocaine Lidocaine 2022-0 No 10mg Com 07-14 Spirit 00:00: - CHI 00 [facility] Kenalog Kenalog 2-0 No 40mg Common (Triamcinol (Triamcinol 1-31 S pirit one) one) 00:00: - CHI 00 [facility] Lidocaine Lidocaine 2021-0 No 10mg Com mon 07-14 Spirit 00:00: - CHI 00 [facility] Kenalog Kenalog 2021-0 No 40mg Common (Triamcinol (Triamcinol 1-31 S pirit one) one) 00:00: - [facility] gadoteridol 2019-06 2020- No .2mL/kg 0.2 mL/kg, Univers (PROHANCE-1 04-11 Intravenou i ty of 5 mL) 15:45: 17:18 s, ONCE, 1 [place] injection 00 :00 dose, Emma Medic al 0.2 mL/kg 04/11/20 Branch at 1045, Routine Kenalog Kenalog 2019-0 No 40mg Common (Triamcinol (Triamcinol 3-24 S pirit one) one) 00:00: - CHI 00 [facility] Kenalog Kenalog 2019-0 No 40mg Common (Triamcinol (Triamcinol 3-24 S pirit one) one) 00:00: - CHI 00 [facility] Kenalog Kenalog 2019-0 No 40mg Common (Triamcinol (Triamcinol 3-24 S pirit one) one) 00:00: - CHI 00 [facility] Kenalog Kenalog 2019-0 No 40mg Common (Triamcinol (Triamcinol 3-24 S pirit one) one) 00:00: - [facility] Kenalog Kenalog 2020-0 No 40mg Common (Triamcinol (Triamcinol 3-24 S pirit one) one) 00:00: - CHI 00 [facility] Kenalog Kenalog 2020-0 No 40mg Common (Triamcinol (Triamcinol 3-24 S pirit one) one) 00:00: - CHI 00 [facility] Kenalog Kenalog 2020-0 No 40mg Common (Triamcinol (Triamcinol 3-24 S pirit one) one) 00:00: - [facility] Kenalog Kenalog 2020-0 No 40mg Common (Triamcinol (Triamcinol 3-24 S pirit one) one) 00:00: - CHI 00 [facility] Kenalog Kenalog 2020-0 No 40mg Common (Triamcinol (Triamcinol 3-24 S pirit one) one) 00:00: - CHI 00 [facility] Novolin R Novolin R 2019-1 Yes Michael per Errol bradmon 06-17 [place] sliding Spirit 00:00: scale 2 - CHI 00 units - 28 [facility] NovoLIN R NovoLIN R 2019- No TID [...] 06-17 100 00:00: UNIT/ML 00 dulaglutide Yes [id number] 1.5mg inject 1.5 Univers (TRULICITY) 8-27 mg under ity of 1.5 mg/0.5 00:00: the skin [place] as mL PnIj 00 weekly. Medical Branch dulaglutide Yes [id number] 1.5mg inject 1.5 Univers (TRULICITY) 8-27 mg under ity of 1.5 mg/0.5 00:00: the skin [place] as mL PnIj 00 weekly. Medical Branch dulaglutide Yes [id number] 1.5mg inject 1.5 Univers (TRULICITY) 8-27 mg under ity of 1.5 mg/0.5 00:00: the skin [place] as mL PnIj 00 weekly. Medical Branch dulaglutide Yes [id number] 1.5mg inject 1.5 Univers (TRULICITY) 8-27 mg under ity of 1.5 mg/0.5 00:00: the skin [place] as mL PnIj 00 weekly. Medical Branch dulaglutide Yes [id number] 1.5mg inject 1.5 Univers (TRULICITY) 8-27 mg under ity of 1.5 mg/0.5 00:00: the skin [place] as mL PnIj 00 weekly. Medical Branch dulaglutide Yes [id number] 1.5mg inject 1.5 Univers (TRULICITY) 8-27 mg under ity of 1.5 mg/0.5 00:00: the skin [place] as mL PnIj 00 weekly. Medical Branch dulaglutide Yes [id number] 1.5mg inject 1.5 Univers (TRULICITY) 8-27 mg under ity of 1.5 mg/0.5 00:00: the skin [place] as mL PnIj 00 weekly. Medical Branch dulaglutide Yes [id number] 1.5mg inject 1.5 Univers (TRULICITY) 8-27 mg under ity of 1.5 mg/0.5 00:00: the skin [place] as mL PnIj 00 weekly. Medical Branch dulaglutide Yes [id number] 1.5mg inject 1.5 Univers (TRULICITY) 8-27 mg under ity of 1.5 mg/0.5 00:00: the skin [place] as mL PnIj 00 weekly. Medical Branch dulaglutide Yes [id number] 1.5mg inject 1.5 Univers (TRULICITY) 8-27 mg under ity of 1.5 mg/0.5 00:00: the skin [place] as mL PnIj 00 weekly. Medical Branch insulin Yes [id number] 28U inject Univ ers lispro, 5-25 28-34 ity of human, 00:00: Units [place] (HUMALOG) 00 under the Medic al 100 unit/mL skin 3 Branch injection (three) times daily before meals. insulin 2018-0 Yes [id number] 28U inject Univ ers lispro, 5-34 ity of human, 00:00: Units [place] (HUMALOG) 00 under the Medic al 100 unit/mL skin 3 Branch injection (three) times daily before meals. insulin 2018-0 Yes [id number] 28U inject Univ ers lispro, 5 28-34 ity of human, 00:00: Units [place] (HUMALOG) 00 under the Medic al 100 unit/mL skin 3 Branch injection (three) times daily before meals. insulin 2018-0 Yes [id number] 28U inject Univ ers lispro, 5-34 ity of human, 00:00: Units [place] (HUMALOG) 00 under the Medic al 100 unit/mL skin 3 Branch injection (three) times daily before meals. insulin 2017- Yes [id number] 28U inject Univ ers lispro, 11-05-34 ity of human, 00:00: Units [place] (HUMALOG) 00 under the Medic al 100 unit/mL skin 3 Branch injection (three) times daily before meals. escitalopra Yes 10mg Take 10 mg Univers m oxalate 5-07 by mouth ity of (LEXAPRO) 18:23: daily. [place] 10 mg Medical tablet Branch clopidogrel Yes 75mg Take 75 mg Univers (PLAVIX) 75 5-07 by mouth ity of mg tablet 18:23: daily. [place] [address] Medical Branch amLODIPine Yes 2.5mg Take 2.5 Un marc 2.5 mg 5-07 mg by ity of tablet 18:23: mouth [place] 19 daily. Medical Branch escitalopra Yes 10mg Take 10 mg Univers m oxalate 5-07 by mouth ity of (LEXAPRO) 18:23: daily. [place] 10 mg Medical tablet Branch clopidogrel Yes 75mg Take 75 mg Univers (PLAVIX) 75 5-07 by mouth ity of mg tablet 18:23: daily. [address] Branch amLODIPine Yes 2.5mg Take 2.5 Un marc 2.5 mg 5-07 mg by ity of tablet 18:23: mouth [place] 19 daily. Medical Branch escitalopra Yes 10mg Take 10 mg Univers m oxalate 5-07 by mouth ity of (LEXAPRO) 18:23: daily. [place] 10 mg 19 Medical tablet Branch clopidogrel Yes 75mg Take 75 mg Univers (PLAVIX) 75 5-07 by mouth ity of mg tablet 18:23: daily. [place] [address] Medical Branch amLODIPine Yes 2.5mg Take 2.5 Un marc 2.5 mg 5-07 mg by ity of tablet 18:23: mouth [place] [address] daily. Medical Branch escitalopra Yes 10mg Take 10 mg Univers m oxalate 5-07 by mouth ity of (LEXAPRO) 18:23: daily. [place] 10 mg Medical tablet Branch clopidogrel Yes 75mg Take 75 mg Univers (PLAVIX) 75 5-07 by mouth ity of mg tablet 18:23: daily. [place] [address] Medical Branch amLODIPine Yes 2.5mg Take 2.5 Un marc 2.5 mg 5-07 mg by ity of tablet 18:23: mouth [place] [address] daily. Medical Branch escitalopra Yes 10mg Take 10 mg Univers m oxalate 5-07 by mouth ity of (LEXAPRO) 18:23: daily. [place] 10 mg Medical tablet Branch clopidogrel Yes 75mg Take 75 mg Univers (PLAVIX) 75 5-07 by mouth ity of mg tablet 18:23: daily. [place] [address] Medical Branch amLODIPine Yes 2.5mg Take 2.5 Un marc 2.5 mg 5-07 mg by ity of tablet 18:23: mouth [place] [address] daily. Medical Branch insulin NPH Yes [id number] 40U inject 40 Univers 100 unit/mL 5-07 Units ity of injection 00:00: under the [place] as 00 skin every Medical morning Branch and evening. insulin NPH Yes [id number] 40U inject 40 Univers 100 unit/mL 5-07 Units ity of injection 00:00: under the [place] as 00 skin every Medical morning Branch and evening. insulin NPH Yes [id number] 40U inject 40 Univers 100 unit/mL 5-07 Units ity of injection 00:00: under the [place] as 00 skin every Medical morning Branch and evening. insulin NPH Yes [id number] 40U inject 40 Univers 100 unit/mL 5-07 Units ity of injection 00:00: under the [place] as 00 skin every Medical morning Branch and evening. insulin NPH 2018-0 Yes [id number] 40U inject 40 Univers 100 unit/mL 5-07 Units ity of injection 00:00: under the [place] as 00 skin every Medical morning Branch and evening. atorvastati 2018-0 Yes 40mg Take 40 mg Univers n 80 mg 1-18 by mouth ity of tablet 00:00: every [place] evening. Medical Branch lisinopril 2018-0 Yes 20mg Take 20 mg U nivers 20 mg 1-18 by mouth ity of tablet 00:00: daily. Medical Branch atorvastati 2018-0 Yes 40mg Take 40 mg Univers n 80 mg 1-18 by mouth ity of tablet 00:00: every [place] evening. Medical Branch lisinopril 2017-0 Yes 20mg Take 20 mg U nivers 20 mg 1-18 by mouth ity of tablet 00:00: daily. Medical Branch atorvastati 2018-0 Yes 40mg Take 40 mg Univers n 80 mg 1-18 by mouth ity of tablet 00:00: every [place] evening. Medical Branch lisinopril 2017-0 Yes 20mg Take 20 mg U nivers 20 mg 1-18 by mouth ity of tablet 00:00: daily. Medical Branch atorvastati 2018-0 Yes 40mg Take 40 mg Univers n 80 mg 1-18 by mouth ity of tablet 00:00: every [place] evening. Medical Branch lisinopril 2018-0 Yes 20mg Take 20 mg U nivers 20 mg 1-18 by mouth ity of tablet 00:00: daily. Medical Branch atorvastati 2018-0 Yes 40mg Take 40 mg Univers n 80 mg 1-18 by mouth ity of tablet 00:00: every [place] 00 evening. Medical Branch lisinopril 2018-0 Yes 20mg Take 20 mg U nivers 20 mg 1-18 by mouth ity of tablet 00:00: daily. Medical Branch gabapentin 2016-0 Yes [id number] 600mg Take 1 Univers (NEURONTIN) 8-16 tablet by ity of 600 mg 00:00: mouth 3 [place] tablet 00 (three) Medical times Branch daily. gabapentin 2015-0 Yes [id number] 600mg Take 1 Univers (NEURONTIN) 8-16 tablet by ity of 600 mg 00:00: mouth 3 [place] tablet 00 (three) Medical times Branch daily. gabapentin Yes [id number] 600mg Take 1 Univers (NEURONTIN) 8-16 tablet by ity of 600 mg 00:00: mouth 3 [place] tablet 00 (three) Medical times Branch daily. gabapentin Yes [id number] 600mg Take 1 Univers (NEURONTIN) 8-16 tablet by ity of 600 mg 00:00: mouth 3 [place] tablet 00 (three) Medical times Branch daily. gabapentin Yes [id number] 600mg Take 1 Univers (NEURONTIN) 8-16 tablet by ity of 600 mg 00:00: mouth 3 [place] tablet 00 (three) Medical times Branch daily. OneTouch OneTouch Yes Michael USE TO Com mon Ultra Test Ultra Test [place] CHECK [facility] BLOOD - CHI SUGAR FOUR TIMES [facility] Amlodipine Amlodipine Yes Michael TAKE 1 Common Besylate Besylate [place] TABLET BY S pirit MOUTH ONCE - CHI A DAY [facility] Hydrochloro Hydrochloro Yes Michael TAKE 1 Common thiazide thiazide [place] TABLET BY S pirit MOUTH ONCE - CHI A DAY IN [facility] Neurontin Neurontin Yes Michael 1 tablet Common [place] [facility] Novolin N Novolin N Yes Michael 50 units Common [place] [facility] Escitalopra Escitalopra Yes Michael 1 tablet Common m Oxalate m Oxalate [place] Spir it - CHI [facility] Coreg Coreg Yes Michael 1 tablet Common [place] [facility] NovoLog NovoLog Yes Michael sliding Comm on [place] scale 36 Spirit units [facility] OneTouch OneTouch Yes Michael TEST BLOOD Common Ultra Test Ultra Test [place] GLUCOSE Spirit FOUR TIMES - CHI A DAY [facility] ProAir HFA ProAir HFA Yes Michael 2 puffs as Common [place] needed [facility] Lipitor Lipitor Yes Michael 1 tablet Com mon [place] [facility] Gabapentin Gabapentin Yes Michael 1 tablet Common [place] [facility] Furosemide Furosemide Yes Michael 1 tablet Common [place] [facility] Lisinopril Lisinopril Yes Michael TAKE 1 Common [place] TABLET BY Spirit MOUTH ONCE - CHI A DAY [facility] Lexapro Lexapro Yes Michael TAKE 1 Commo n [place] TABLET BY Spirit MOUTH ONCE - CHI DAILY [facility] Plavix Plavix Yes Michael TAKE 1 Common [place] TABLET BY Spirit MOUTH ONCE - CHI DAILY [facility] Plavix Plavix Yes Michael 1 tablet Commo n [place] Spirit - [facility] Furosemide Furosemide No Furosemide 80 MG 80 [...] Dexcom G6 Dexcom G6 No Dexcom G6 Health Counselor - Health Counselor - Health Counselor - Dexcom G6 Dexcom G6 No Dexcom [...] Dexcom G6 Dexcom G6 No Dexcom G6 Health Counselor - Health Counselor - Health Counselor - Dexcom G6 Dexcom G6 No Dexcom [...] Dexcom G6 Dexcom G6 No Dexcom G6 Health Counselor - Health Counselor - Health Counselor - Dexcom G6 Dexcom G6 No Dexcom [...] Dexcom G6 Dexcom G6 No Dexcom G6 Health Counselor - Health Counselor - Health Counselor - Dexcom G6 Dexcom G6 No Dexcom [...] Dexcom G6 Dexcom G6 No Dexcom G6 Health Counselor - Health Counselor - Health Counselor - Dexcom G6 Dexcom G6 No Dexcom [...] Dexcom G6 Dexcom G6 No Dexcom G6 Health Counselor - Health Counselor - Health Counselor - Dexcom G6 Dexcom G6 No Dexcom [...] OneTouch Ultra - Ultra - Ultra - HumuLIN HumuLIN No BID HumuLIN 70/30 70/30 70/30 (70-30) 100 (70-30) 100 (70-30) UNIT/ML UNIT/ML 100 UNIT/ML Lipitor 80 Lipitor 80 No 1{table QD Lipitor 80 MG MG t} MG Tylenol 8 Tylenol 8 No 2{table TID Tylenol 8 Hour 650 MG Hour 650 MG ts_as_n Hour 650 eeded} MG HumuLIN R HumuLIN R No TID HumuLIN R 100 UNIT/ML 100 UNIT/ML 100 UNIT/ML Dexcom G6 Dexcom G6 No Dexcom G6 Health Counselor - Health Counselor - Health Counselor - Carvedilol Carvedilol No Carvedilol 12.5 MG 12.5 MG 12.5 MG OneTouch OneTouch No QID OneTouch Ultra Test Ultra Test Ultra Test - - - ProAir HFA ProAir HFA No 2{puffs QID ProAir HFA 108 (90 108 (90 _as_nee 108 (90 Base) Base) ded} Base) MCG/ACT MCG/ACT MCG/ACT Gabapentin Gabapentin No Gabapentin 600 MG 600 MG 600 MG Escitalopra Escitalopra No Escitalopr m Oxalate m Oxalate am Oxalate 20 MG 20 MG 20 MG Dexcom G6 Dexcom G6 No Dexcom G6 Sensor - Sensor - Sensor - Cyclobenzap Cyclobenzap No Cyclobenza rine HCl 10 rine HCl 10 adán HCl MG MG 10 MG Atorvastati Atorvastati No Atorvastat n Calcium n Calcium in Calcium 80 MG 80 MG 80 MG OneTouch OneTouch No OneTouch Ultra Test Ultra Test Ultra Test - - - HYDROcodone HYDROcodone No 1{table QID HYDROcodon -Acetaminop -Acetaminop t_as_ne e-Acetamin hen 7.5-325 hen 7.5-325 eded} ophen MG MG 7.5-325 MG Clopidogrel Clopidogrel No Clopidogre Bisulfate Bisulfate l 75 MG 75 MG Bisulfate 75 MG traMADol traMADol No 1{table BID traMADol HCl 50 MG HCl 50 MG t_as_ne HCl 50 MG eded} Neurontin Neurontin No 1{table QD Neurontin 600 MG 600 MG t} 600 MG Coreg 12.5 Coreg 12.5 No 1{table BID Coreg 12.5 MG MG t} MG HumuLIN HumuLIN No HumuLIN 70/30 70/30 70/30 (70-30) 100 (70-30) 100 (70-30) UNIT/ML UNIT/ML 100 UNIT/ML Furosemide Furosemide No 1{table BID Furosemide 80 MG 80 MG t} 80 MG Dexcom G6 Dexcom G6 No Dexcom G6 Transmitter Transmitter Transmitte - - r - Lipitor 80 Lipitor 80 No 1{table QD Lipitor 80 MG MG t} MG Plavix 75 Plavix 75 No 1{table QD Plavix 75 MG MG t} MG Lexapro 20 Lexapro 20 No Lexapro 20 MG MG MG Furosemide Furosemide No Furosemide 80 MG 80 MG 80 MG Plavix 75 Plavix 75 No 1{table QD Plavix 75 MG MG t} MG amLODIPine amLODIPine No amLODIPine Besylate 5 Besylate 5 Besylate 5 MG MG MG traZODone traZODone No 1{table QD traZODone HCl 100 MG HCl 100 MG t_at_be HCl 100 MG dtime} Escitalopra Escitalopra No 1{table QD Escitalopr m Oxalate m Oxalate t} am Oxalate 20 MG 20 MG 20 MG OneTouch OneTouch No OneTouch Ultra - Ultra - Ultra - traZODone traZODone No traZODone HCl 100 MG HCl 100 MG HCl 100 MG Diclofenac Diclofenac No Diclofenac Sodium 75 Sodium 75 Sodium 75 MG MG MG hydrOXYzine hydrOXYzine No 1{table QID hydrOXYzin HCl 10 MG HCl 10 MG t_as_ne e HCl 10 eded} MG HumuLIN HumuLIN No HumuLIN 70/30 70/30 70/30 (70-30) 100 (70-30) 100 (70-30) UNIT/ML UNIT/ML 100 UNIT/ML Coreg 12.5 Coreg 12.5 No 1{table BID Coreg 12.5 MG MG t} MG HumuLIN HumuLIN No BID HumuLIN 70/30 70/30 70/30 (70-30) 100 (70-30) 100 (70-30) UNIT/ML UNIT/ML 100 UNIT/ML traZODone traZODone No traZODone HCl 100 MG HCl 100 MG HCl 100 MG Escitalopra Escitalopra No Escitalopr m Oxalate m Oxalate am Oxalate 20 MG 20 MG 20 MG Clopidogrel Clopidogrel No Clopidogre Bisulfate Bisulfate l 75 MG 75 MG Bisulfate 75 MG Escitalopra Escitalopra No 1{table QD Escitalopr m Oxalate m Oxalate t} am Oxalate 20 MG 20 MG 20 MG HumuLIN R HumuLIN R No TID HumuLIN R 100 UNIT/ML 100 UNIT/ML 100 UNIT/ML Furosemide Furosemide No Furosemide 80 MG 80 MG 80 MG Lexapro 20 Lexapro 20 No Lexapro 20 MG MG MG Cyclobenzap Cyclobenzap No Cyclobenza rine HCl 10 rine HCl 10 adán HCl MG MG 10 MG traZODone traZODone No 1{table QD traZODone HCl 100 MG HCl 100 MG t_at_be HCl 100 MG dtime} HYDROcodone HYDROcodone No 1{table QID HYDROcodon -Acetaminop -Acetaminop t_as_ne e-Acetamin hen 7.5-325 hen 7.5-325 eded} ophen MG MG 7.5-325 MG Atorvastati Atorvastati No Atorvastat n Calcium n Calcium in Calcium 80 MG 80 MG 80 MG OneTouch OneTouch No OneTouch Ultra Test Ultra Test Ultra Test - - - Carvedilol Carvedilol No Carvedilol 12.5 MG 12.5 MG 12.5 MG OneTouch OneTouch No QID OneTouch Ultra Test Ultra Test Ultra Test - - - Tylenol 8 Tylenol 8 No 2{table TID Tylenol 8 Hour 650 MG Hour 650 MG ts_as_n Hour 650 eeded} MG Gabapentin Gabapentin No Gabapentin 600 MG 600 MG 600 MG ProAir HFA ProAir HFA No 2{puffs QID ProAir HFA 108 (90 108 (90 _as_nee 108 (90 Base) Base) ded} Base) MCG/ACT MCG/ACT MCG/ACT Plavix 75 Plavix 75 No 1{table QD Plavix 75 MG MG t} MG OneTouch OneTouch No OneTouch Ultra - Ultra - Ultra - hydrOXYzine hydrOXYzine No 1{table QID hydrOXYzin HCl 10 MG HCl 10 MG t_as_ne e HCl 10 eded} MG Diclofenac Diclofenac No Diclofenac Sodium 75 Sodium 75 Sodium 75 MG MG MG Dexcom G6 Dexcom G6 No Dexcom G6 Transmitter Transmitter Transmitte - - r - Lipitor 80 Lipitor 80 No 1{table QD Lipitor 80 MG MG t} MG Plavix 75 Plavix 75 No 1{table QD Plavix 75 MG MG t} MG Furosemide Furosemide No 1{table BID Furosemide 80 MG 80 MG t} 80 MG Dexcom G6 Dexcom G6 No Dexcom G6 Sensor - Sensor - Sensor - amLODIPine amLODIPine No amLODIPine Besylate 5 Besylate 5 Besylate 5 MG MG MG Dexcom G6 Dexcom G6 No Dexcom G6 Health Counselor - Health Counselor - Health Counselor - Lipitor 80 Lipitor 80 No 1{table QD Lipitor 80 MG MG t} MG traMADol traMADol No 1{table BID traMADol HCl 50 MG HCl 50 MG t_as_ne HCl 50 MG eded} Neurontin Neurontin No 1{table QD Neurontin 600 MG 600 MG t} 600 MG HumuLIN HumuLIN No HumuLIN 70/30 70/30 70/30 (70-30) 100 (70-30) 100 (70-30) UNIT/ML UNIT/ML 100 UNIT/ML Coreg 12.5 Coreg 12.5 No 1{table BID Coreg 12.5 MG MG t} MG HumuLIN HumuLIN No BID HumuLIN 70/30 70/30 70/30 (70-30) 100 (70-30) 100 (70-30) UNIT/ML UNIT/ML 100 UNIT/ML traZODone traZODone No traZODone HCl 100 MG HCl 100 MG HCl 100 MG Escitalopra Escitalopra No Escitalopr m Oxalate m Oxalate am Oxalate 20 MG 20 MG 20 MG Clopidogrel Clopidogrel No Clopidogre Bisulfate Bisulfate l 75 MG 75 MG Bisulfate 75 MG Escitalopra Escitalopra No 1{table QD Escitalopr m Oxalate m Oxalate t} am Oxalate 20 MG 20 MG 20 MG HumuLIN R HumuLIN R No TID HumuLIN R 100 UNIT/ML 100 UNIT/ML 100 UNIT/ML Furosemide Furosemide No Furosemide 80 MG 80 MG 80 MG Lexapro 20 Lexapro 20 No Lexapro 20 MG MG MG Cyclobenzap Cyclobenzap No Cyclobenza rine HCl 10 rine HCl 10 adán HCl MG MG 10 MG traZODone traZODone No 1{table QD traZODone HCl 100 MG HCl 100 MG t_at_be HCl 100 MG dtime} HYDROcodone HYDROcodone No 1{table QID HYDROcodon -Acetaminop -Acetaminop t_as_ne e-Acetamin hen 7.5-325 hen 7.5-325 eded} ophen MG MG 7.5-325 MG Atorvastati Atorvastati No Atorvastat n Calcium n Calcium in Calcium 80 MG 80 MG 80 MG OneTouch OneTouch No OneTouch Ultra Test Ultra Test Ultra Test - - - Carvedilol Carvedilol No Carvedilol 12.5 MG 12.5 MG 12.5 MG OneTouch OneTouch No QID OneTouch Ultra Test Ultra Test Ultra Test - - - Tylenol 8 Tylenol 8 No 2{table TID Tylenol 8 Hour 650 MG Hour 650 MG ts_as_n Hour 650 eeded} MG Gabapentin Gabapentin No Gabapentin 600 MG 600 MG 600 MG ProAir HFA ProAir HFA No 2{puffs QID ProAir HFA 108 (90 108 (90 _as_nee 108 (90 Base) Base) ded} Base) MCG/ACT MCG/ACT MCG/ACT Plavix 75 Plavix 75 No 1{table QD Plavix 75 MG MG t} MG OneTouch OneTouch No OneTouch Ultra - Ultra - Ultra - hydrOXYzine hydrOXYzine No 1{table QID hydrOXYzin HCl 10 MG HCl 10 MG t_as_ne e HCl 10 eded} MG Diclofenac Diclofenac No Diclofenac Sodium 75 Sodium 75 Sodium 75 MG MG MG Dexcom G6 Dexcom G6 No Dexcom G6 Transmitter Transmitter Transmitte - - r - Lipitor 80 Lipitor 80 No 1{table QD Lipitor 80 MG MG t} MG Plavix 75 Plavix 75 No 1{table QD Plavix 75 MG MG t} MG Furosemide Furosemide No 1{table BID Furosemide 80 MG 80 MG t} 80 MG Dexcom G6 Dexcom G6 No Dexcom G6 Sensor - Sensor - Sensor - amLODIPine amLODIPine No amLODIPine Besylate 5 Besylate 5 Besylate 5 MG MG MG Dexcom G6 Dexcom G6 No Dexcom G6 Health Counselor - Health Counselor - Health Counselor - Lipitor 80 Lipitor 80 No 1{table QD Lipitor 80 MG MG t} MG traMADol traMADol No 1{table BID traMADol HCl 50 MG HCl 50 MG t_as_ne HCl 50 MG eded} Neurontin Neurontin No 1{table QD Neurontin 600 MG 600 MG t} 600 MG Immunizations Ordered Immunization Filled Immunization Date Status [facility] [address] (Low Dose Vaccine (Low Dose 15:39:[facility] - [facility] [facility] (Low Dose Vaccine (Low Dose 15:39:[facility] - [facility] Booster) Booster[facility] [address] [facility]-21 Com[facility]ine (Low Dose Vaccine (Low Dose 15:39:[address] - [facility] Booster) Booster) [facility] [address] [facility] 2021-05-21 Com[facility] Vaccine (Low Dose Vaccine (Low Dose 15:39:[facility] - [facility] Booster) Booster) [facility] [address] COVID19 2021-05-21 Completed [facility] Vaccine (Low Dose Vaccine (Low Dose 15:39:[facility] - [facility] Booster) Booster) [facility] 2021-05-21 Completed [facility]ine (Low Dose Vaccine (Low Dose 15:39:[facility] - [facility] Booster) Booster) [facility] COVID-19 [facility] COVID-19 2021-05-21 Completed [facility] Vaccine (Low Dose Vaccine (Low Dose 15:39:00 - [facility] Booster) Booster) [facility] COVID19 [facility] COVID-19 2021-05-21 Completed [facility] Vaccine (Low Dose Vaccine (Low Dose 15:39:00 - [facility] Booster) Booster) [facility] COVID19 [facility] COVID-19 2021-05-21 Completed [facility]ine (Low Dose Vaccine (Low Dose 15:39:[address] - [facility] Booster) Booster) [facility] COVID19 Vaccine COVID-19 Vaccine 2020-08-28 Completed [facility] (Aidan) (Aidan) 14:58:00 [facility] COVID-19 Vaccine COVID-19 Vaccine 2020-08-28 Completed [facility] (Aidan) (Aidan) 14:58:00 [facility] COVID-19 Vaccine COVID-19 Vaccine 2020-08-28 Completed [facility] (Aidan) (Aidan) 14:58:00 [facility] COVID-19 Vaccine COVID-19 Vaccine 2020-08-28 Completed [facility] (Aidan) (Aidan) 14:58:00 [facility] COVID-19 Vaccine COVID-19 Vaccine 2020-08-28 Completed [facility] (Aidan) (Aidan) 14:58:00 [facility] COVID-19 Vaccine COVID-19 Vaccine 2020-08-28 Completed [facility] (Aidan) (Aidan) 14:58:00 [facility] COVID-19 Vaccine COVID-19 Vaccine 2020-08-28 Completed [facility] (Aidan) (Aidan) 14:58:00 [facility] COVID-19 Vaccine COVID-19 Vaccine 2020-08-28 Completed [facility] (Aidan) (Aidan) 14:58:00 [facility] COVID-19 Vaccine COVID-19 Vaccine 2020-08-28 Completed [facility] (Aidan) (Aidan) 14:58:00 [facility] Vital Signs Vital Name Observation Time Observation Value Comments Source height 2022-05-27 14:00:00 71 [in_i] Common [facility] weight 2022-05-27 14:00:00 271.4 [lb_av] Common [facility] temperature 2022-05-27 14:00:00 97.9 [degF] [facility] bmi 2022-05-27 14:00:00 37.85 kg/m2 [facility] blood pressure 2022-05-27 14:00:00 128 mm[Hg] [facility] - systolic [facility] blood pressure 2022-05-27 14:00:00 76 mm[Hg] [facility] - diastolic [facility] height 2022-05-25 15:30:00 71 [in_i] [facility] weight 2022-05-25 15:30:00 271.1 [lb_av] [facility] temperature 2022-05-25 15:30:00 97.6 [degF] [facility] bmi 2022-05-25 15:30:00 37.81 kg/m2 [facility] oximetry 2022-05-25 15:30:00 97 % [facility] respiratory rate 2022-05-25 15:30:00 17 /min Comm on [facility] blood pressure 2022-05-25 15:30:00 139 mm[Hg] [facility] - systolic [facility] blood pressure 2022-05-25 15:30:00 65 mm[Hg] [facility] - diastolic [facility] height 2022-03-19 15:00:00 71 [in_i] [facility] weight 2022-03-19 15:00:00 272.6 [lb_av] [facility] temperature 2022-03-19 15:00:00 97.6 [degF] Common [facility]irit - [facility] bmi 2022-03-19 15:00:00 38.02 kg/m2 [facility] - [facility] oximetry 2022-03-19 15:00:00 95 % Common S [facility]irit - [facility] respiratory rate 2022-03-19 15:00:00 16 /min Comm on [facility] blood pressure 2022-03-19 15:00:00 129 mm[Hg] [facility] - systolic [facility] blood pressure 2022-03-19 15:00:00 74 mm[Hg] Common [facility] - diastolic [facility] Procedures Procedure Date / Time Performed Performing Clinician [facility] e REFERRAL- 2020-12-09 05:01:00 Doctor Unassigned, No [facility] REQUEST/RESPONSE Name [facility] MR ORBIT W WO CONTRAST 2020-04-11 17:19:58 Requisition, Paper Un iversity [facility] MR BRAIN W WO CONTRAST 2020-04-11 17:18:18 Requisition, Paper Un iversity of [facility] ASSIGNMENT OF BENEFITS 2020-04-11 15:07:27 Doctor Unassigned, No [facility] Name [facility] Encounters Start End Encounter Admission Attending Care Care Encounter Source Date/Time Date/Time Type Type Clinicians Facility Department ID 2022-05-27 Outpatient Grullon, STLMLC STLC [id number] Common 13:34:01 [facility] 2022-05-21 Outpatient Grullon, STLMLC STLC [id number] Common 14:12:00 [facility] 2022-04-28 Outpatient Grullon, STLMLC STLC [id number] Common 15:58:01 Michael [facility] 2022-04-20 Outpatient Grullon, STLMLC STLC [id number] Common 12:08:00 [facility] 2022-04-09 Outpatient Grullon, STLMLC STLC [id number] Common 09:12:00 [facility] 2022-03-23 Outpatient Grullon, STLMLC STLC [id number] Common 07:50:00 Michael [facility] 2021-12-18 Outpatient Grullon, STLMLC STLC [id number] Common 08:02:00 Michael [facility] 2021-08-11 Outpatient Grullon, STLMLC STLMLC [id number] Common 16:05:00 Michael [facility] 2021-07-14 Outpatient Grullon, STLMLC STLC [id number] Common 13:55:00 Michael [facility] 2021-07-09 Outpatient Grullon, STLMLC STLC [id number] Common 14:23:13 Michael 76702 [facility] 2021-07-09 Outpatient Grullon, STLMLC STLC [id number] Common 14:22:30 Michael 52688 [facility] 2021-07-09 Outpatient Grullon, STLMLC STLC [id number] Common 13:29:39 Michael 12625 [facility] 2021-07-09 Outpatient Grullon, STLMLC STLC [id number] Common 13:26:23 Michael 33449 [facility] 2021-07-09 Outpatient Grullon, STLMLC STLC [id number] Common 13:17:32 Michael 89761 [facility] 2021-07-09 Outpatient Grullon, STLMLC STLC [id number] Common 13:06:07 Michael 77043 [facility] 2021-07-09 Outpatient Grullon, STLMLC STLC [id number] Common 13:02:38 Michael 50743 [facility] 2021-07-09 Outpatient Grullon, STLMLC STLC [id number] Common 13:01:30 Michael 47274 [facility] 2021-07-09 Outpatient Grullon, STLMLC STLC [id number] Common 12:41:52 Michael 38907 [facility] 2021-07-09 Outpatient Grullon, STLMLC STLMLC [id number] Common 12:41:22 Michael 29932 [facility] 2021-07-09 Outpatient Grullon, STLMLC STLMLC [id number] Common 12:40:21 Michael 72545 [facility] 2021-07-09 Outpatient Grullon, STLMLC STLMLC [id number] Common 12:09:50 Michael 45000 [facility] 2021-07-09 Outpatient Grullon, STLMLC STLMLC [id number] Common 12:08:25 Michael 48607 [facility] 2021-07-09 Outpatient Grullon, STLMLC STLMLC [id number] Common 12:07:24 Michael 39050 [facility] 2021-07-09 Outpatient Grullon, STLMLC STLMLC [id number] Common 11:39:10 Michael 25961 [facility] 2021-07-09 Outpatient Grullon, STLMLC STLMLC [id number] Common 11:27:55 Michael 15048 [facility] 2021-07-09 Outpatient Grullon, STLMLC STLMLC [id number] Common 11:20:48 Michael 09119 [facility] 2021-07-09 Outpatient Grullon, STLMLC STLMLC [id number] Common 11:15:28 Michael 67983 [facility] 2022-06-02 2022-06-02 (TEL) STLMLC STLMLC [id number] Co mmon 00:00:00 00:00:00 [facility] 2022-05-27 2022-05-27 OFFICE STLMLC STLMLC [id number] Co mmon 00:00:00 00:00:00 VISIT EST Spir it PT LEVEL 3 - [facility] 2022-05-25 2022-05-25 OFFICE STLMLC STLMLC [id number] Co mmon 00:00:00 00:00:00 VISIT Spirit ESTAB PT - [facility]I LEVEL 4 [facility] 2022-04-28 2022-04-28 (TEL) STLMLC STLMLC [id number] Co mmon 00:00:00 00:00:00 [facility] 2022-04-09 2022-04-09 (TEL) STLMLC STLMLC [id number] Co mmon 00:00:00 00:00:00 [facility] 2022-04-09 2022-04-09 (TEL) STLMLC STLMLC [id number] Co mmon 00:00:00 00:00:00 [facility] 2022-04-06 2022-04-06 (TEL) STLMLC STLMLC [id number] Co mmon 00:00:00 00:00:00 [facility] 2022-03-27 2022-03-27 (TEL) STLMLC STLMLC [id number] Co mmon 00:00:00 00:00:00 [facility] 2022-03-19 2022-03-19 OFFICE STLMLC STLMLC [id number] Co mmon 00:00:00 00:00:00 VISIT [facility] PT - [facility] LEVEL 4 [facility] 2021-12-31 2021-12-31 ambulatory STLMLC STLMLC [id number] Common 00:00:00 00:00:00 [facility] 2021-12-31 2021-12-31 ambulatory STLMLC STLMLC [id number] Common 00:00:00 00:00:00 [facility] 2021-12-23 2021-12-23 ambulatory STLMLC STLMLC [id number] Common 00:00:00 00:00:00 [facility] 2021-12-22 2021-12-22 ambulatory STLMLC STLMLC [id number] Common 00:00:00 00:00:00 [facility] 2021-12-17 2021-12-17 ambulatory STLMLC STLMLC [id number] Common 00:00:00 00:00:00 [facility] 2021-11-21 2021-11-21 ambulatory STLMLC STLMLC [id number] Common 00:00:00 00:00:00 [facility] 2021-09-03 2021-09-03 ambulatory STLMLC STLMLC [id number] Common 00:00:00 00:00:00 [facility] 2021-09-03 2021-09-03 ambulatory STLMLC STLMLC [id number] Common 00:00:00 00:00:00 [facility] 2021-07-14 2021-07-14 ambulatory STLMLC STLMLC [id number] Common 00:00:00 00:00:00 [facility] 2021-07-07 2021-07-07 ambulatory STLMLC STLMLC [id number] Common 00:00:00 00:00:00 [facility] 2021-06-10 2021-06-10 ambulatory STLMLC STLMLC [id number] Common 00:00:00 00:00:00 [facility] 2021-05-21 2021-05-21 ambulatory STLMLC STLMLC [id number] Common 00:00:00 00:00:00 [facility] 2021-05-21 2021-05-21 ambulatory STLMLC STLMLC [id number] Common 00:00:00 00:00:00 [facility] 2021-05-14 2021-05-14 ambulatory STLMLC STLMLC [id number] Common 00:00:00 00:00:00 [facility] 2021-05-12 2021-05-12 ambulatory STLMLC STLMLC [id number] Common 00:00:00 00:00:00 [facility] 2021-04-07 2021-04-07 ambulatory STLMLC STLMLC [id number] Common 00:00:00 00:00:00 [facility] 2021-03-18 2021-03-18 Outpatient STLMLC STLMLC [id number] Common 00:00:00 00:00:00 [facility] 2021-03-17 2021-03-17 Outpatient STLMLC STLMLC [id number] Common 00:00:00 00:00:00 [facility] 2021-01-16 2021-01-16 Letter EVELYN Grullon [id number] Univers 00:00:00 00:00:00 (Out) Michael Miguel KAMALJIT [id number] i ty [id number] [place] [phone] [facility] [address] 2021-01-15 2021-01-15 Outpatient STLMLC STLMLC [id number] Common 00:00:00 00:00:00 [facility] 2021-01-15 2021-01-15 Outpatient STLMLC STLMLC [id number] Common 00:00:00 00:00:00 [facility] 2021-01-15 2021-01-15 Outpatient STLMLC STLMLC [id number] Common 00:00:00 00:00:00 [facility] 2021-01-14 2021-01-14 Outpatient STLMLC STLMLC [id number] Common 00:00:00 00:00:00 [facility] 2020-12-31 2020-12-31 Outpatient STLMLC STLMLC [id number] Common 00:00:00 00:00:00 [facility] 2020-12-09 2020-12-09 Orders Doctor RIVAS [id number] Univers 00:00:00 00:00:00 Only Unassigned, KAMALJIT [id number] [place] [id number] [place] as [phone] [facility] [address] 2020-12-02 2020-12-02 Outpatient STLMLC STLMLC [id number] Common 00:00:00 00:00:00 [facility] 2020-12-02 2020-12-02 Outpatient STLMLC STLMLC [id number] Common 00:00:00 00:00:00 [facility] 2020-11-18 2020-11-18 Outpatient STLMLC STLMLC [id number] Common 00:00:00 00:00:00 [facility] 2020-11-05 2020-11-05 Outpatient STLMLC STLMLC [id number] Common 00:00:00 00:00:00 [facility] 2020-11-04 2020-11-04 Outpatient STLMLC STLMLC [id number] Common 00:00:00 00:00:00 [facility] 2020-10-25 2020-10-25 Outpatient STLMLC STLMLC [id number] Common 00:00:00 00:00:00 [facility] 2020-10-16 2020-10-16 Outpatient STLMLC STLMLC [id number] Common 00:00:00 00:00:00 [facility] 2020-10-15 2020-10-15 Outpatient STLMLC STLMLC [id number] Common 00:00:00 00:00:00 [facility] 2020-10-15 2020-10-15 Outpatient STLMLC STLMLC [id number] Common 00:00:00 00:00:00 [facility] 2020-09-26 2020-09-26 Outpatient STLMLC STLMLC [id number] Common 00:00:00 00:00:00 [facility] 2020-08-28 2020-08-28 Outpatient STLMLC STLMLC [id number] Common 00:00:00 00:00:00 [facility] 2020-08-27 2020-08-27 Outpatient STLMLC STLMLC [id number] Common 00:00:00 00:00:00 [facility] 2020-05-14 2020-05-14 Outpatient STLMLC STLMLC [id number] Common 00:00:00 00:00:00 [facility] 2020-05-06 2020-05-06 Outpatient STLMLC STLMLC [id number] Common 00:00:00 00:00:00 [facility] 2020-04-11 2020-04-11 Hospital Radiology [facility] [id number] 10:11:59 23:59:00 Encounter [place] [id number] [place] [id number] [place] [phone] [phone] 2020-04-11 Hospital Radiology [facility] [id number] Univers 10:11:59 23:59:00 Encounter [place] [id number] [id number] [phone] [facility] [address] 2020-04-11 2020-04-11 [facility] Radiology [facility] [id number] Univers 10:11:08 23:59:00 Encounter [place] [id number] [place]y [place] [id number] [facility] [place] [phone] [place] 8[address] 2020-04-11 2020-04-11 [facility] Radiology [facility] [id number] 10:11:08 23:59:00 Encounter [place] [id number] [place] [id number] [place] [phone] [facility] 2020-04-11 2020-04-11 Outpatient R RADIOLOGY [facility] [id number] Univers 00:00:00 00:00:00 ity of [facility] 2020-04-11 2020-04-11 Orders Doctor RIVAS [id number] Univers 00:00:00 00:00:00 Only Unassigned, KAMALJIT [id number] ity of [place] [facility] [id number] [place] [phone] [address] 2020-04-11 2020-04-11 Orders Doctor RIVAS [id number] 00:00:00 00:00:00 Only Unassigned, KAMALJIT [id number] [place] [id number] 2020-02-07 2020-02-07 Outpatient [facility] [id number] Common 11:20:00 11:20:00 t [employer] [address] [facility] 2020-01-29 2020-01-29 Outpatient Brazdelmy [id number] Common 11:40:00 11:40:[address] [place] [address] [facility] 2020-01-16 2020-01-16 [id number] Common 11:15:00 11:15:[address] [facility] 2019-12-04 2019-12-04 [facility] [id number] Common 10:50:00 10:50:[address] [facility] 2019-11-08 2019-11-08 [facility] [id number] Common 15:00:00 15:00:[address] [facility] 2019-11-08 2019-11-08 [facility] [id number] Common 14:15:00 14:15:[address] [facility] 2019-10-27 2019-10-27 [facility] [id number] Common 11:15:00 11:15:[address] [facility] 2019-10-24 2019-10-24 [facility] [id number] Common 16:04:00 16:04:[address] [facility] 2019-10-20 2019-10-20 [facility] [id number] Common 13:40:00 13:40:[address] [facility] 2019-10-18 2019-10-18 [facility] [id number] Common 14:05:00 14:05:[address] [facility] 2019-09-21 2019-09-21 [facility] [id number] Common 16:45:00 16:45:[address] [facility] 2019-09-05 2019-09-05 [facility] [id number] Common 10:30:00 10:30:[address] [facility] 2019-08-08 2019-08-08 [facility] [id number] Common 15:00:00 15:00:[address] [facility] 2019-07-26 2019-07-26 [facility] [id number] Common 16:37:00 16:37:[address] [facility] 2019-06-22 2019-06-22 [facility] [id number] Common 14:45:00 14:45:[address] [facility] 2019-06-19 2019-06-19 [facility] [id number] Common 15:45:00 15:45:[address] [facility] 2019-05-31 2019-05-31 [facility] [id number] Common 15:15:00 15:15:[address] [facility] 2019-05-03 2019-05-03 [facility] [id number] Common 10:37:00 10:37:[address] [facility] 2019-04-17 2019-04-17 [facility] [id number] Common 14:08:00 14:08:[address] [facility] 2019-04-17 2019-04-17 [facility] [id number] Common 13:30:00 13:30:[address] [facility] 2019-03-28 2019-03-28 [facility] [id number] Common 14:44:00 14:44:[address] [facility] 2019-03-23 2019-03-23 [facility] [id number] Common 14:15:00 14:15:[address] [facility] 2019-03-02 2019-03-02 [facility] [id number] Common 15:10:00 15:10:[address] [facility] 2019-02-23 2019-02-23 [facility] [id number] Common 10:00:00 10:00:[address] [facility] 2019-01-20 2019-01-20 [facility] [id number] Common 13:43:00 13:43:[address] [facility] 2018-12-29 2018-12-29 [facility] [id number] Common 14:42:00 14:42:[address] [facility] 2018-12-21 2018-12-21 [facility] [id number] Common 14:30:00 14:30:[address] [facility] 2018-12-06 2018-12-06 [facility] [id number] Common 14:04:00 14:04:[address] [facility] 2018-10-10 2018-10-10 [facility] [id number] Common 15:00:00 15:00:[address] [facility] 2018-09-16 2018-09-16 [facility] [id number] Common 11:25:00 11:25:[address] [facility] 2018-09-12 2018-09-12 [facility] [id number] Common 14:15:00 14:15:[address] [facility] 2018-08-11 2018-08-11 [facility] [id number] Common 13:45:00 13:45:[address] [facility] 2018-06-21 2018-06-21 [facility] [id number] Common 10:15:00 10:15:[address] [facility] 2018-05-30 2018-05-30 [facility] [id number] Common 10:28:00 10:28:[address] [facility] 2018-03-16 2018-03-16 [facility] [id number] Common 15:07:00 15:07:[address] [facility] 2018-03-14 2018-03-14 [facility] [id number] Common 15:00:00 15:00:[address] [facility] 2018-02-28 2018-02-28 [facility] [id number] Common 16:46:00 16:46:[address] [facility] 2018-02-11 2018-02-11 [facility] [id number] Common 09:17:00 09:17:[address] [facility] 2018-02-04 2018-02-04 [facility] [id number] Common 14:14:00 14:14:[address] [facility] 2018 2018 [facility] [id number] Common 15:57:00 15:57:[address] [facility] 2018-01-12 2018-01-12 [facility] [id number] Common 14:34:00 14:34:[address] [facility] 2018-01-10 2018-01-10 [facility] [id number] Common 15:15:00 15:15:[address] [facility] 2017-11-22 2017-11-22 [facility] [id number] Common 09:36:00 09:36:[address] [facility] 2017-11-10 2017-11-10 Outpatient [facility] 13 [id number] Common 13:30:00 13:30:00 [place] [employer] [address] [facility] 2017-09-29 2017-09-29 Outpatient [facility] [id number] Common 13:00:00 13:00:00 [place] [employer] [address] [facility] Results Test Test Test Results Result [...] ORBIT W WO 2020-03- Patient motion degrades [employer] [...] is unremarkable. No orbital mass is present. [facility], [facility] Results Inft User - 04/11/2020 1:05 [...]
[2022-06-07] MEDS ORDERED: NITROGLYCERIN 0.4 MG/TAB SL ONE (21:34)
[2022-06-07 21:35] LABS: Absolute Lymphocytes (CBC) 1.1 K/uL (0.7-4.9); Hematocrit 40.1 % (39.6-49.0); Lymphocytes % 7.1 % (15.3-44.8); MCV 87.7 fL (80-100); MPV 7.4 fL (7.6-11.3); RBC Red Blood Cell Count 4.57 M/uL (4.33-5.43)
[2022-06-07 21:50] LABS: SARS-CoV-2 Antigen Rapid Res Negative (Negative)
[2022-06-07 21:56] LABS: Albumin 3.1 g/dL (3.4-5.0); Bilirubin Total 1.5 mg/dL (0.2-1.0); Potassium 4.2 mmol/L (3.5-5.1); Protein, Total 7.3 g/dL (6.4-8.2); Troponin High Sensitivity 48.1 pg/mL (<58.9)
--- NOTE | 2022-06-07 23:25 | ER ---
Nurse's Notes [facility] Name: Tripp Webster Age: 57 yrs Sex: Male : 1965 Arrival Date: 06/07/2022 Time: 21:03 Bed 13 Private MD: Diagnosis: Chest pain, unspecified;Other pneumonia, unspecified organism Presentation: 06/07 21:04 Chief complaint: EMS states: they were toned out earlier for chest pain and pt refused bb transport but then called again because the pain did not go away. Coronavirus screen: At this time, the client does not indicate any symptoms associated with coronavirus-19. Ebola Screen: No symptoms or risks identified at this time. Initial Sepsis Screen: Does the patient meet any 2 criteria? No. Patient's initial sepsis screen is negative. Does the patient have a suspected source of infection? No. Patient's initial sepsis screen is negative. Risk Assessment: Do you want to hurt yourself or someone else? Patient reports no desire to harm self or others. Onset of symptoms was June 07, 2022. 21:04 Method Of Arrival: EMS: [facility] bb 21:04 Acuity: MIRIAM 3 bb Historical: - Home Meds: 21:06 atorvastatin 80 mg oral tab 1 tab once daily [Active]; Aspirin Oral [Active]; bb carvedilol 12.5 mg oral tab 1 tab 2 times per day [Active]; escitalopram oxalate 20 mg oral tab 1 tab once daily [Active]; Novolin R Sub-Q [Active]; furosemide 80 mg oral tab 1 tab once daily [Active]; Plavix 75 mg oral tab 1 tab twice a day [Active]; humalin 70/30 225 units daily [Active]; gabapentin 600 mg Oral tab 1 tab four times a day [Active]; amlodipine 5 mg tab 1 tab twice a day [Active]; tramadol 50 mg Oral tab 1 tab twice a day [Active]; hydrocodone-acetaminophen 7.5-325 mg Oral tab 1 tab twice a day [Active]; - PMHx: 21:06 CAD; depressive disorder; Diabetes - IDDM; Hypercholesterolemia; Hypertension; bb neuropathy; GERD; - PSHx: 21:06 cardiac stents; bb - Immunization history:: Client reports receiving the John \T\ John single-dose vaccine. - Social history:: Smoking status: Patient denies any tobacco usage or history of. - Family history:: not pertinent. Screenin:10 [facility] ED Fall Risk Assessment (Adult) History of falling in the last 3 months, jb4 including since admission No falls in past 3 months (0 pts) Confusion or Disorientation No (0 pts) Intoxicated or Sedated No (0 pts) Impaired Gait No (0 pts) Mobility Assist Device Used No (0 pt) Altered Elimination No (0 pt) Score/Fall Risk Level 0 - 2 = Low Risk Oriented to surroundings, Maintained a safe environment. Abuse screen: Denies threats or abuse. Nutritional screening: No deficits noted. Tuberculosis screening: No symptoms or risk factors identified. Assessment: 21:10 General: Appears in no apparent distress. uncomfortable, Behavior is calm, cooperative, jb4 appropriate for age. Pain: Complains of pain in anterior aspect of left upper chest Pain radiates to left arm Pain began gradually. Neuro: Level of Consciousness is awake, alert, obeys commands, Oriented to person, place, time, situation. Cardiovascular: Patient's skin is warm and dry. Respiratory: Airway is patent Respiratory effort is even, unlabored, Respiratory pattern is regular, symmetrical. GI: No signs and/or symptoms were reported involving the gastrointestinal system. : No signs and/or symptoms were reported regarding the genitourinary system. EENT: No signs and/or symptoms were reported regarding the EENT system. Derm: Skin is intact, Skin is pink, warm \T\ dry. Musculoskeletal: Circulation, motion, and sensation intact. Range of motion: intact in all extremities. 22:40 Reassessment: Patient appears in no apparent distress at this time. Patient and/or jb4 family updated on plan of care and expected duration. Pain level reassessed. Patient is alert, oriented x 3, equal unlabored respirations, skin warm/dry/pink. Pt reports chest pain has improved, continues to report stabbing shooting pains down the left side, left arm, and left leg, provider notified, no new orders at this time. 06/08 02:03 Reassessment: IV to right AC infiltrated and discontinued with catheter intact, bb bleeding controlled and pressure dressing applied. 02:46 Reassessment: Patient is alert, oriented x 3, equal unlabored respirations, skin bb warm/dry/pink. IV site intact, patent with fluids infusing. Vital Signs: 06/07 21:04 BP 172 / 81; Pulse 108; Resp 18 S; Temp 98.8(O); Pulse Ox 92% on R/A; Weight 123.38 kg bb (R); Height 5 ft. 11 in. (180.34 cm) (R); Pain 9/10; 21:30 BP 137 / 71; Pulse 92; Resp 25; Pulse Ox 97% on 2 lpm NC; jb4 22:00 BP 118 / 59; Pulse 92; Resp 23; Pulse Ox 94% on 2 lpm NC; jb4 22:30 BP 109 / 53; Pulse 88; Resp 23; Pulse Ox 95% on 2 lpm NC; jb4 23:00 BP 131 / 72; Pulse 85; Resp 19; Pulse Ox 98% ; vc1 06/08 00:00 BP 112 / 45; Pulse 83; Resp 24; Pulse Ox 96% on 2 lpm NC; vc1 00:45 BP 127 / 48; Pulse 77; Resp 22; Pulse Ox 97% on R/A; vc1 01:48 Pulse 101; Resp 27; Pulse Ox 85% 2 lpm ; vc1 01:49 Pulse Ox 92% on 4 lpm NC; vc1 02:33 BP 123 / 50; Pulse 84; Resp 20 S; Temp 99.1(O); Pulse Ox 93% on 4 lpm NC; jb4 06/07 21:04 Body Mass Index 37.94 (123.38 kg, 180.34 cm) ED Course: 06/07 21:03 Patient arrived in ED. bb 21:04 Umer Florentino MD is Attending Physician. rt 21:06 Triage completed. 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 EKG completed in triage. Results shown to . 21:10 Initial lab(s) drawn, by me, sent to lab. COVID swab sent to lab. Inserted saline lock: jb4 20 gauge in right upper arm, using aseptic technique. Blood collected. Patient maintains SpO2 saturation greater than 95% on room air. 21:30 SARS RAPID Sent. jb4 21:30 BNP Sent. jb4 21:30 Lipase Sent. jb4 21:31 Troponin High Sensitivity Sent. jb4 21:31 CMP Sent. jb4 21:31 CBC with Diff Sent. jb4 22:02 Chilango Bermudez, RN is Primary Nurse. jb4 23:11 Chest Single View XRAY In Process Unspecified. EDMS 23:24 Raven Hull MD is Hospitalizing Provider. rt 06/08 02:15 Inserted saline lock: 18 gauge in left antecubital area, using aseptic technique. bb 02:32 No provider procedures requiring assistance completed. Patient admitted, IV remains in jb4 place. 02:34 Patient has correct armband on for positive identification. Call light in reach. Client jb4 placed on continuous cardiac and pulse oximetry monitoring. NIBP monitoring applied. retail event coordinator on. Administered Medications: 06/07 21:41 Drug: Nitroglycerin 0.4 mg Route: Sublingual; jb4 22:08 Drug: Nitroglycerin 0.4 mg Route: Sublingual; jb4 22:19 Drug: Nitroglycerin 0.4 mg Route: Sublingual; jb4 06/08 02:47 Follow up: Response: No change in condition bb 01:40 Drug: Zofran (Ondansetron) 4 mg Route: IVP; Site: right antecubital; jb4 02:47 Follow up: Response: No adverse reaction bb 01:40 Drug: GI Cocktail without - (Maalox Suspension 30 ml, Lidocaine Liquid 2 % 15 jb4 ml) Route: PO; 02:47 Follow up: Response: No adverse reaction bb 01:42 Drug: morphine 4 mg Route: IVP; Infused Over: 4 mins; Site: right antecubital; jb4 02:47 Follow up: Response: Pain is decreased bb 01:50 Drug: Rocephin (cefTRIAXone) 1 grams Route: IV; Rate: calculated rate; Site: right jb4 antecubital; 01:57 Follow up: IV Status: Completed infusion; IV Intake: 10ml jb4 02:15 Drug: Zithromax (azithromycin) 10 mg/kg Route: IVPB; Rate: calculated rate; Site: left bb antecubital; 02:47 Follow up: IV Status: Infusion continued upon admission bb Medication: 02:32 VIS not applicable for this client. jb4 Intake: 01:57 IV: 10ml; Total: 10ml. jb4 Outcome: 06/07 23:25 Decision to Hospitalize by Provider. rt 06/08 02:32 Admitted to Tele accompanied by tech, via wheelchair, room 230, with chart, Report jb4 called to Osman KOHLI Condition: stable Instructed on the need for admit. 02:48 Patient left the ED. bb Signatures: Dispatcher [employer] EDElidia Roa RN RN bb Chilango Bermudez RN RN jb4 Kaycee Pan RN RN vc1 Umer Florentino MD MD rt Corrections: (The following items were deleted from the chart) 06/07 22:42 22:40 Reassessment: Patient appears in no apparent distress at this time. Patient jb4 and/or family updated on plan of care and expected duration. Pain level reassessed. Patient is alert, oriented x 3, equal unlabored respirations, skin warm/dry/pink. ER provider at the bedside. jb4 22:47 22:40 Reassessment: Patient appears in no apparent distress at this time. Patient jb4 and/or family updated on plan of care and expected duration. Pain level reassessed. Patient is alert, oriented x 3, equal unlabored respirations, skin warm/dry/pink. jb4
--- NOTE | 2022-06-07 23:25 | EDPHYS ---
Physician Documentation [facility] Name: Tripp Webster Age: 57 yrs Sex: Male : 1965 Arrival Date: 06/07/2022 Time: 21:03 Bed 13 Private MD: ED Physician Umer Florentino HPI: 06/07 21:17 This 57 yrs old Male presents to ER via EMS with complaints of Chest Pain > 30 y/o. rt 21:17 The patient or guardian reports chest pain that is located primarily in the substernal rt area. Onset: this morning. The pain radiates to the left arm. Associated signs and symptoms: Pertinent positives: nausea. Associated signs and symptoms: Pertinent negatives: shortness of breath. The chest pain is described as burning. Duration: The patient or guardian reports a single episode. Modifying factors: The symptoms are alleviated by nothing. the symptoms are aggravated by nothing. Severity of pain: At its worst the pain was moderate. EMS care prior to arrival includes: aspirin. Historical: - Home Meds: 21:06 atorvastatin 80 mg oral tab 1 tab once daily [Active]; Aspirin Oral [Active]; bb carvedilol 12.5 mg oral tab 1 tab 2 times per day [Active]; escitalopram oxalate 20 mg oral tab 1 tab once daily [Active]; Novolin R Sub-Q [Active]; furosemide 80 mg oral tab 1 tab once daily [Active]; Plavix 75 mg oral tab 1 tab twice a day [Active]; humalin 70/30 225 units daily [Active]; gabapentin 600 mg Oral tab 1 tab four times a day [Active]; amlodipine 5 mg tab 1 tab twice a day [Active]; tramadol 50 mg Oral tab 1 tab twice a day [Active]; hydrocodone-acetaminophen 7.5-325 mg Oral tab 1 tab twice a day [Active]; - PMHx: 21:06 CAD; depressive disorder; Diabetes - IDDM; Hypercholesterolemia; Hypertension; bb neuropathy; GERD; - PSHx: 21:06 cardiac stents; bb - Immunization history:: Client reports receiving the John \T\ John single-dose vaccine. - Social history:: Smoking status: Patient denies any tobacco usage or history of. - Family history:: not pertinent. ROS: 21:17 Constitutional: Negative for fever, chills, and weight loss, Eyes: Negative for injury, rt pain, redness, and discharge, ENT: Negative for injury, pain, and discharge, Back: Negative for injury and pain, MS/Extremity: Negative for injury and deformity, Skin: Negative for injury, rash, and discoloration, Neuro: Negative for headache, weakness, numbness, tingling, and seizure, Psych: Negative for depression, anxiety, suicide ideation, homicidal ideation, and hallucinations. 21:17 Cardiovascular: Positive for chest pain, Negative for edema. 21:17 Respiratory: Positive for shortness of breath, Negative for cough. 21:17 Abdomen/GI: Positive for nausea, Negative for abdominal pain. Exam: 21:17 Constitutional: This is a well developed, well nourished patient who is awake, alert, rt and in no acute distress. Head/Face: Normocephalic, atraumatic. Eyes: Pupils equal round and reactive to light, extra-ocular motions intact. Lids and lashes normal. Conjunctiva and sclera are non-icteric and not injected. Cornea within normal limits. Periorbital areas with no swelling, redness, or edema. ENT: Nares patent. No nasal discharge, no septal abnormalities noted. Tympanic membranes are normal and external auditory canals are clear. Oropharynx with no redness, swelling, or masses, exudates, or evidence of obstruction, uvula midline. Mucous membranes moist. Neck: Trachea midline, no thyromegaly or masses palpated, and no cervical lymphadenopathy. Supple, full range of motion without nuchal rigidity, or vertebral point tenderness. No Meningismus. Chest/axilla: Normal chest wall appearance and motion. Nontender with no deformity. No lesions are appreciated. Cardiovascular: Regular rate and rhythm with a normal S1 and S2. No gallops, murmurs, or rubs. Normal PMI, no JVD. No pulse deficits. Respiratory: Lungs have equal breath sounds bilaterally, clear to auscultation and percussion. No rales, rhonchi or wheezes noted. No increased work of breathing, no retractions or nasal flaring. Abdomen/GI: Soft, non-tender, with normal bowel sounds. No distension or tympany. No guarding or rebound. No evidence of tenderness throughout. Skin: Warm, dry with normal turgor. Normal color with no rashes, no lesions, and no evidence of cellulitis. MS/ Extremity: Pulses equal, no cyanosis. Neurovascular intact. Full, normal range of motion. Neuro: Awake and alert, GCS 15, oriented to person, place, time, and situation. Cranial nerves II-XII grossly intact. Motor strength 5/5 in all extremities. Sensory grossly intact. Cerebellar exam normal. Normal gait. Psych: Awake, alert, with orientation to person, place and time. Behavior, mood, and affect are within normal limits. 21:17 ECG was reviewed by the Attending Physician. Vital Signs: 21:04 BP 172 / 81; Pulse 108; Resp 18 S; Temp 98.8(O); Pulse Ox 92% on R/A; Weight 123.38 kg bb (R); Height 5 ft. 11 in. (180.34 cm) (R); Pain 9/10; 21:30 BP 137 / 71; Pulse 92; Resp 25; Pulse Ox 97% on 2 lpm NC; jb4 22:00 BP 118 / 59; Pulse 92; Resp 23; Pulse Ox 94% on 2 lpm NC; jb4 22:30 BP 109 / 53; Pulse 88; Resp 23; Pulse Ox 95% on 2 lpm NC; jb4 23:00 BP 131 / 72; Pulse 85; Resp 19; Pulse Ox 98% ; vc1 06/08 00:00 BP 112 / 45; Pulse 83; Resp 24; Pulse Ox 96% on 2 lpm NC; vc1 00:45 BP 127 / 48; Pulse 77; Resp 22; Pulse Ox 97% on R/A; vc1 01:48 Pulse 101; Resp 27; Pulse Ox 85% 2 lpm ; vc1 01:49 Pulse Ox 92% on 4 lpm NC; vc1 02:33 BP 123 / 50; Pulse 84; Resp 20 S; Temp 99.1(O); Pulse Ox 93% on 4 lpm NC; jb4 06/07 21:04 Body Mass Index 37.94 (123.38 kg, 180.34 cm) bb MDM: 06/07 21:06 Patient medically screened. rt 23:30 Differential diagnosis: abnormal EKG, acute myocardial infarction, pancreatitis, rt pleurisy, pneumonia, pneumothorax, unstable angina. HEART Score: History: Highly Suspicious (2), ECG: Significant ST-deviation (2), Age: > or = 65 years (2), Risk Factors: > or = 3 Risk factors for atherosclerotic disease (2), Troponin: < or = 1 x Normal Limit (0), Total Score = 6. 23:31 Data reviewed: vital signs, nurses notes, lab test result(s), EKG, radiologic studies. rt 06/07 21:13 Order name: CBC with Diff; Complete Time: 21:57 rt 06/07 21:13 Order name: CMP; Complete Time: 21:57 rt 06/07 21:13 Order name: Lipase; Complete Time: 21:57 rt 06/07 21:13 Order name: Troponin High Sensitivity; Complete Time: 21:57 rt 06/07 21:13 Order name: BNP; Complete Time: 21:57 rt 06/07 21:13 Order name: SARS RAPID; Complete Time: 21:57 la1 06/07 21:13 Order name: Chest Single View XRAY rt 06/07 23:06 Order name: Blood Culture Adult (2) la1 06/07 23:06 Order name: Lactate w/ 2H reflex if indic.; Complete Time: 00:13 la1 06/07 23:07 Order name: Influenza Screen (a \T\ B); Complete Time: 00:13 la1 EC:17 Rate is 94 beats/min. Rhythm is regular, Normal Sinus Rhythm with No ectopy. QRS [place] rt is Normal. NM interval is normal. QRS interval is normal. QT interval is normal. ST Segment is depressed in leads V3, V4. Administered Medications: 21:41 Drug: Nitroglycerin 0.4 mg Route: Sublingual; 4 22:08 Drug: Nitroglycerin 0.4 mg Route: Sublingual; 4 22:19 Drug: Nitroglycerin 0.4 mg Route: Sublingual; 4 06/08 02:47 Follow up: Response: No change in condition bb 01:40 Drug: Zofran (Ondansetron) 4 mg Route: IVP; Site: right antecubital; jb4 02:47 Follow up: Response: No adverse reaction bb 01:40 Drug: GI Cocktail without - (Maalox Suspension 30 ml, Lidocaine Liquid 2 % 15 jb4 ml) Route: PO; 02:47 Follow up: Response: No adverse reaction bb 01:42 Drug: morphine 4 mg Route: IVP; Infused Over: 4 mins; Site: right antecubital; jb4 02:47 Follow up: Response: Pain is decreased bb 01:50 Drug: Rocephin (cefTRIAXone) 1 grams Route: IV; Rate: calculated rate; Site: right jb4 antecubital; 01:57 Follow up: IV Status: Completed infusion; IV Intake: 10ml jb4 02:15 Drug: Zithromax (azithromycin) 10 mg/kg Route: IVPB; Rate: calculated rate; Site: left bb antecubital; 02:47 Follow up: IV Status: Infusion continued upon admission bb Disposition Summary: 06/07/22 23:25 Hospitalization Ordered Hospitalization Status: Observation rt Provider: Raven Hull rt Location: Telemetry/MedSurg (observation) rt Condition: Stable rt Problem: new rt Symptoms: have improved rt Bed/Room Type: Standard rt Room Assignment: 230(06/08/22 01:15) cg Diagnosis - Chest pain, unspecified rt - Other pneumonia, unspecified organism rt Forms: - Medication Reconciliation Form rt - SBAR form rt Signatures: Dispatcher [employer] Elidia Banerjee RN RN bb Julio C Cotter, VEHICLE INSPECTOR-C VEHICLE INSPECTOR-Cla1 Ayna Horne RN RN cg Bryson, James, RN RN jb4 Umer Florentino MD MD rt Corrections: (The following items were deleted from the chart) 01:15 06/07 23:25 rt cg
--- NOTE | 2022-06-08 00:36 | P.HP ---
Certification for Inpatient Patient admitted to: Observation With expected LOS: <2 Midnights Patient will require the following post-hospital care: None Practitioner: I am a practitioner with admitting privileges, knowledge of patient current condition, hospital course, and medical plan of care. Services: Services provided to patient in accordance with Admission requirements found in Title 42 Section 412.3 of the Code of Federal Regulations <Julio C Cotter - Last Filed: 06/08/22 00:33> Patient History Date of Service: 06/08/22 History of Present Illness: 57-year-old male with history of CAD, insulin-dependent diabetes, hypertension, hyperlipidemia, GERD presents emergency department for chest pain. He reports his pain began at rest is described as sharp, worse with inspiration, radiates down the left arm. He was evaluated here in the emergency department his initial high-sensitivity troponin was 41.8 white blood cell count was 15.5 g lucose 304 chest x-ray showed no acute findings. He has had no fevers, chills or other signs of infection there are SIRS criteria present including leukocytosis, tachycardia, tachypnea but no source of infection has been identified. Patient does report history of GERD, feels as if his symptoms are made worse by eating or drinking. He was given aspirin by EMS. Will admit for ACS rule out. - Past Medical/Surgical History Diabetic: Yes -: Hypertension -: Diabetes mellitus type 2 insulin dependent -: CAD with prior stent -: Hyperlipidemia -: Diabetic neuropathy -: Obesity -: Sleep apnea noncompliant -: CVA -: Stent placement x5 -: back surgery -: ble vascular sx Psychosocial/ Personal History: Patient is - Family History Father -: Heart disease Mother -: Heart disease - Social History Smoking Status: Former smoker Alcohol use: No CD- Drugs: No Caffeine use: Yes Place of Residence: Home <Julio C Cotter - Last Filed: 06/08/22 00:33> Date of Service: 06/08/22 <Raven Hull - Last Filed: 06/08/22 16:10> Allergies No Known Allergies Allergy (Verified 04/03/19 15:38) Home Medications: Atorvastatin Calcium [Lipitor] 80 mg PO BEDTIME 04/04/19 Gabapentin [Neurontin] 600 mg PO QID 10/22/19 Aspirin [Aspirin EC 81 MG] 81 mg PO DAILY #30 tablet. 06/18/19 Carvedilol [Coreg] 12.5 mg PO BID #60 tablet 06/18/19 Furosemide [Lasix] 80 mg PO DAILY 11/06/20 Insulin Aspart [Novolog] 36 unit SQ QID 11/06/20 Insulin NPH Human Isophane [Novolin N] 50 unit SQ BID 11/06/20 Acetaminophen [Acetaminophen ER] 2 cap PO BID PRN 06/08/22 Clopidogrel Bisulfate [Plavix] 75 mg PO DAILY 06/08/22 Escitalopram [Lexapro*] 20 mg PO DAILY 06/08/22 Review of Systems 10-point ROS is otherwise unremarkable Cardiovascular: Chest Pain <Julio C Cotter - Last Filed: 06/08/22 00:33> Physical Examination - Physical Exam General: Alert, In no apparent distress, Oriented x3, Obese HEENT: Atraumatic, PERRLA, Mucous membr. moist/pink, EOMI, Sclerae nonicteric Neck: Supple, 2+ carotid pulse no bruit, No LAD, Without JVD or thyroid abnormality Respiratory: Clear to auscultation bilaterally, Normal air movement Cardiovascular: No edema, Regular rate/rhythm, Normal S1 S2 Capillary refill: <2 Seconds Gastrointestinal: Normal bowel sounds, No tenderness Musculoskeletal: No tenderness Integumentary: No rashes Neurological: Normal speech, Normal strength at 5/5 x4 extr, Normal tone, Normal affect - Studies Laboratory Data (last 24 hrs) 06/07/22 21:10: Sodium 136, Potassium 4.2, BUN 14, Creatinine 1.23, Glucose 304 H, Total Bilirubin 1.5 H, AST 26, ALT 35, Alkaline Phosphatase 170 H, Lipase 47 L 06/07/22 21:10: WBC 15.50 H, Hgb 13.1 L, Hct 40.1, Plt Count 254 Microbiology Data (last 24 hrs): 06/07/22 23:30 Nasopharnyx Influenza Type A Antigen Screen - Final 06/07/22 23:30 Nasopharnyx Influenza Type B Antigen Screen - Final <Julio C Cotter - Last Filed: 06/08/22 00:33> - Studies Laboratory Data (last 24 hrs) 06/07/22 21:10: Sodium 136, Potassium 4.2, BUN 14, Creatinine 1.23, Glucose 304 H, Total Bilirubin 1.5 H, AST 26, ALT 35, Alkaline Phosphatase 170 H, Lipase 47 L 06/07/22 21:10: WBC 15.50 H, Hgb 13.1 L, Hct 40.1, Plt Count 254 Microbiology Data (last 24 hrs): 06/07/22 23:42 Blood - Blood Anaerobic Blood Culture - Final 06/07/22 23:27 Blood - Blood Anaerobic Blood Culture - Final 06/07/22 23:30 Nasopharnyx Influenza Type A Antigen Screen - Final 06/07/22 23:30 Nasopharnyx Influenza Type B Antigen Screen - Final <Raven Hull - Last Filed: 06/08/22 16:10> Assessment and Plan - Plan Assessment: Chest pain rule out ACShistory of CAD Diabetes mellitus type IIinsulin-dependent with hyperglycemia Hypertension Hyperlipidemia GERD Previous CVA Plan: Chest pain rule out ACShistory of CAD: Trend troponins, monitor on telemetry, continue home medications including aspirin, statin, Plavix. Cardiology consulted, possibly GI/GERD related. Given GI cocktail now, will treat with Protonix as well. Appreciate further input from cardiology. Diabetes mellitus type IIinsulin-dependent with hyperglycemia: Patient takes 70/30 insulin reportedly 80 units twice daily as well as sliding scale insulin, continue with aggressive sliding scale insulin, verify doses of home insulin dose. A1c in the morning. Hypertension: Continue home medications Hyperlipidemia: Continue home medications GERD: Continue home medications Previous CVA: Continue home medications DVT PPX: Lovenox Code status: Full Discharge Plan: Home Plan to discharge in: 24 Hours - Advance Directives Does patient have a Living Will: No Does patient have a Durable POA for Healthcare: No - Code Status/Comfort Care Code Status Assessed: Yes (Full code) Critical Care: No Time Spent Managing Pts Care (In Minutes): 55 <Julio C Cotter - Last Filed: 06/08/22 00:33> Date of Service: 06/08/22 Pt with NSTEMI-elevated troponin; pt taken to the [facility]; LAD stenosis s/p stent; Will require inpatient hospitalization <Raven Hull - Last Filed: 06/08/22 16:10>
[2022-06-08] MEDS ORDERED: MAGNES/ALUMIN/SIMET 30ML UCUP ONE (00:43)
[2022-06-08] MEDS ORDERED: ONDANSETRON 4 MG/2 ML VIAL ONE ×3 (00:43→13:47)
[2022-06-08] MEDS ORDERED: CEFTRIAXONE 1000 MG/VIAL ONE (00:43)
[2022-06-08] MEDS ORDERED: MORPHINE 4 MG/ML SYR ONE (00:43)
[2022-06-08] MEDS ORDERED: AZITHROMYCIN 500 MG INJ IVPB ONE (00:43)
[2022-06-08] MEDS ORDERED: NA CHLORIDE 0.9% 250 ML ONE (00:44)
[2022-06-08] MEDS ORDERED: LIDOCAINE VISCOUS 2% SOLN 15 ML UDC ONE (00:44)
[2022-06-08] MEDS ORDERED: ONDANSETRON 4 MG/2 ML VIAL IV PRN (02:43)
[2022-06-08] MEDS ORDERED: GLUCAGON 1 MG/VIAL IM PRN (02:43)
[2022-06-08] MEDS ORDERED: HYDROCODONE/APAP 7.5/325 MG TAB PO PRN (02:43)
[2022-06-08] MEDS ORDERED: D50W 25 GM/50 ML SYRINGE IV PRN (02:43)
[2022-06-08] MEDS ORDERED: D10W 125 ML IV PRN (02:52)
[2022-06-08 03:51] VITALS: BMI 37.9
[2022-06-08 05:00] LABS: Absolute Lymphocytes (CBC) 2.2 K/uL (0.7-4.9); Hematocrit 38.7 % (39.6-49.0); MCV 88.5 fL (80-100); MPV 7.5 fL (7.6-11.3); RBC Red Blood Cell Count 4.38 M/uL (4.33-5.43)
[2022-06-08 05:17] LABS: Albumin 2.8 g/dL (3.4-5.0); Bilirubin Total 1.2 mg/dL (0.2-1.0); Potassium 3.7 mmol/L (3.5-5.1); Protein, Total 6.7 g/dL (6.4-8.2)
[2022-06-08] MEDS: PANTOPRAZOLE 40MG TABLET PO SCH (05:48)
[2022-06-08] MEDS: MORPHINE 2 MG/ML SYR IV PRN ×2 (05:48→21:02)
[2022-06-08] MEDS ORDERED: HEPARIN/D5W 25,000 UNIT/500 ML BAG IV SCH (06:00)
[2022-06-08] MEDS: INSULIN -REGULAR HUMAN 50 UNIT/0.5 ML ML SQ SCH ×4 (07:30→21:02)
[2022-06-08 07:32] LABS: Protime INR 1.19
[2022-06-08 07:43] LABS: Specific Gravity 1.022 (1.005-1.030); Urine Bacteria None Seen /HPF (<20); Urine Bilirubin NEGATIVE (Negative); Urine Blood Negative (Negative); Urine Clarity Clear (Clear); Urine Color Yellow (Yellow); Urine Glucose 3+ (Negative); Urine Mucus Slight /HPF (None Seen); Urine Protein TRACE (Negative); Urine RBC <5 /HPF (None Seen); Urine Urobilinogen Normal (Normal); Urine WBC Clump Rare /HPF (None Seen)
[2022-06-08] MEDS: ASPIRIN EC 81 MG TAB PO SCH (08:29)
[2022-06-08] MEDS: CLOPIDOGREL 75 MG TABLET PO SCH (08:29)
[2022-06-08] MEDS ORDERED: ENOXAPARIN 40 MG/0.4 ML SQ SCH (09:00)
--- NOTE | 2022-06-08 11:11 | RAD REPORT ---
EXAM DESCRIPTION: Chest Single View 06/07/2022 11:18 PM CANVAS SHRINKER CLINICAL HISTORY: 57 years, Male, CHEST PAIN COMPARISON: None. FINDINGS: Single view of the chest was obtained portable. No prior films are available for compariso n. External EKG leads within the [id number] limits diagnosis. The cardiomediastinal silhouette dem onstrate to be unremarkable. The heart is in the upper normal size. The thoracic aorta is unremarkabl e. The pulmonary vasculature is normal distribution. Costophrenic angles are sharp. No areas of con solidation or masses are seen. The rest of the soft tissue and bony structures demonstrate to be un remarkable. IMPRESSION: No acute cardiopulmonary disease seen. Electronically signed by: Sincere Smith MD 06/07/2022 11:21 PM CANVAS SHRINKER Due to temporary technical issues with the PACS/Fluency reporting system, reports are being signed by the in house radiologists without review as a courtesy to insure prompt reporting. The interpreting radiologist is fully responsible for the content of the report.
[2022-06-08] MEDS ORDERED: LIDOCAINE 1% 20 ML MDV ONE (12:31)
[2022-06-08] MEDS ORDERED: HEPA 1000U/500MLS 2,000 UNIT/1,000 ML BAG IV ONE (12:31)
[2022-06-08] MEDS ORDERED: VERAPAMIL HCL 10 MG/4 ML VIAL IV ONE (12:32)
[2022-06-08] MEDS ORDERED: NITROGLYCERIN 100 MCG/ML SYR (for cath lab use only) IV ONE (12:32)
[2022-06-08] MEDS ORDERED: MIDAZOLAM HCL 2 MG/2 ML INJ ONE (12:32)
[2022-06-08] MEDS ORDERED: HEPARIN 5000 UNIT/ML 1 ML VIAL ONE (12:32)
[2022-06-08] MEDS ORDERED: HEPARIN 10,000 UNIT/10 ML VIAL IV ONE ×2 (12:32→13:37)
[2022-06-08] MEDS ORDERED: FENTANYL CITR 100 MCG/2 ML ONE (12:32)
[2022-06-08] MEDS ORDERED: ATROPINE SULF 1 MG/10 ML SYR IV ONE (12:33)
[2022-06-08] MEDS ORDERED: NITROGLYCERIN/D5W 25 MG/250 ML BTL IV ONE (12:33)
[2022-06-08] MEDS ORDERED: NA CHLORIDE 0.9% 500 ML ONE (12:53)
[2022-06-08] MEDS ORDERED: REGADENOSON 0.4 MG/5 ML SYR IV ONE (13:22)
[2022-06-08] MEDS ORDERED: TICAGRELOR 90 MG TABLET PO ONE (13:36)
[2022-06-08] MEDS ORDERED: CLOPIDOGREL 75 MG TABLET ONE (13:47)
--- NOTE | 2022-06-08 14:27 | CON ---
Date of Consultation: 06/08/2022 Reason For Consultation: Non-STEMI. History Of Present Illness: This is a 57-year-old male with history of coronary artery disease, stat us post PCIs in the past of the RCA and the left circumflex. Has diabetes, hypertension, dyslipidemi a, presented with chest pain, left-sided, pressure-like, radiates to the left upper arm into the neck . In the emergency room, his initial troponin was elevated and kept rising. He denies having any co ugh, but he has shortness of breath and orthopnea and lower extremity edema as well. Past Medical History: As outlined above in the HPI. Medications: Refer reconciliation sheet for detailed list. Allergies: NO KNOWN DRUG ALLERGIES. Family History: No premature coronary artery disease or cancer. Social History: Does not smoke or drink. Does not use any drugs. Review of Systems: All systems reviewed and they were negative except for mentioned in HPI. Physical Examination: Vital Signs: Reviewed. Head and Neck: Pupils are equal, reactive to light. Intact eye movements. Mild JVD elevation. Lungs: There are crackles on the bases. No accessory muscle use or muscle retraction. Heart: Regular rate and rhythm. No extra sounds. Abdomen: Soft, nontender. Bowel sounds positive. No organomegaly. No masses or hernia. No rigidi ty or rebound. Extremities: Edema bilaterally. No clubbing or cyanosis. Intact pulses. Skin: No rash. Neurologic: Alert, awake, oriented x3. No acute focal deficits appreciated. Investigations: BUN 13, creatinine 1.03. Troponin 620, and his white blood cell count is 13,000, he moglobin is 12.6. Assessment And Recommendation: 1.Non-ST elevation myocardial infarction. Typical symptoms, elevated troponin. Kept him n.p.o. and plan for coronary angiogram and PCI is needed. Patient is already on heparin drip and aspirin and P lavix. 2.Acute congestive heart failure exacerbation, unknown ejection fraction. Recommend aggressive diur esis, Lasix 40 mg IV q.12 hours. Monitor BUN, creatinine, electrolytes. 3.Diabetes. Check sugars 3 times a day. Cover with regular insulin per sliding scale. SR/MODL Voice ID: [id number] Report ID: [id number]
[2022-06-08] MEDS ORDERED: FUROSEMIDE 20 MG/ 2ML VIAL ONE ×2 (14:29→16:01)
--- NOTE | 2022-06-08 14:55 | OP ---
Date of Procedure: 06/08/2022 Surgeon: FAITH GRADY Procedures Performed: 1.Selective coronary angiogram. 2.Left heart catheterization. 3.FFR of proximal left anterior descending which was significant at 0.79. 4.Percutaneous coronary intervention of proximal left anterior descending. I used 3.0 x 28 mm Syner gy drug-eluting stent. Indications: 1.Non-ST elevation myocardial infarction. 2.Acute congestive heart failure. Access: Right radial artery 6-Chinese closed with TR band. Complications: None. Anesthesia: Total sedation time was 55 minutes, used fentanyl and Versed. Description Of Procedure: After risks, benefits, and alternatives were explained, the patient agreed to procedure and signed informed consent. The patient was brought into the cardiac catheterization laboratory, prepped and draped in sterile fashion. I then accessed the right radial artery using ped iatric micropuncture kit, placed a 6-Chinese Slender sheath and took a 5-Chinese Firestone 4.0 catheter int o aortic root, engaged left main and right coronary artery, took standard views, and then, the cathet er was pushed over the wire into the LV across the aortic valve and measured the LVEDP and pullback, not requiring gradient. Then, I gave systemic heparin to assure ACT level above 250 and took a Comet wire into the aortic root and pressures were equalized, and then, I engaged the left main. Subseque ntly, took the Comet wire into the mid LAD passing the area of proximal LAD stenosis, and the iFR was very low at 0.82 and FFR was significant at 0.79, so I exchanged for EBU 3.5 guide, 6-Chinese and the n took the same Comet wire into the LAD, placed it distally and used a 3.0 x 15 mm compliant balloon. The lesion expanded very well and then placed a 3.0 x 28 mm Synergy drug-eluting stent with excelle nt angiographic results, and then, removed the wire. Final angiogram was satisfactory, and then, rem kaitlynn the guide and the sheath and placed TR band with good hemostasis. The patient was loaded with 3 00 mg of Plavix as he is on Plavix daily, and he received aspirin today. Findings: 1.Left main: Large and normal. 2.LAD: Proximal, diffuse 70-80% stenosis with positive FFR of 0.79 and iFR was 0.82, very significa nt status post successful PCI as above. Then, diagonal branch appears to be small with luminal irreg ularities, and the mid to distal LAD is a focal 80% stenosis. We did not fix as the patient was extr jaspreet uncomfortable with back and shoulder pain and could not tolerate to sit further for further avery nting. 3.The left circumflex: Large and dominant with mid to OM1, patent stent. At the end of the stent, there was an area of 60% stenosis, and then, there is another stent that is patent. 4.RCA small and it is non-dominant. Mid RCA stent is patent, and then, distal to the stent, there i s diffuse 70-80% stenosis, but is a small vessel and then the PLB is PREMIUM REPRESENTATIVE and there is very small PDA and with diffuse disease. 5.LVEDP elevated at 32 mmHg. Conclusions: 1.Severe proximal and mid LAD stenosis, status post FFR guided PCI of proximal LAD as outlined above . We will plan to stage the mid LAD PCI at a later time with anesthesia. 2.Patent left circumflex stent with moderate OM1 disease in between the stents. 3.There is severe mid RCA stenosis; however, it is a smaller vessel. Plan: 1.Aspirin, Plavix, and high-dose statin. 2.Staged PCI of mid to distal LAD stenosis and we will attempt also to do the RCA PCI, however, with anesthesia as the patient could not continue going today in this procedure and the contrast load was high. We will plan to do this in about 4 weeks post discharge. 3.Continue aspirin, Plavix, high-dose statin, and no further heparin is needed. 4.Aggressive diuresis, Lasix 40 mg IV q.8 hours. Monitor BUN, creatinine, electrolytes. SR/MODL Voice ID: [id number] Report ID: [id number]
[2022-06-08] MEDS ORDERED: ACETAMINOPHEN 650 MG PO PRN (16:11)
[2022-06-08] MEDS: FUROSEMIDE 40 MG/4 ML VIAL IV SCH (17:24)
--- NOTE | 2022-06-08 17:45 | RAD REPORT ---
EXAM DESCRIPTION: RAD - Chest Single View - 06/08/2022 5:39 pm CLINICAL HISTORY: Dyspnea COMPARISON: Chest Single View dated 06/07/2022; Chest Pa And Lat (2 Views) dated 06/18/2019; Chest Sin gle View dated 06/18/2019; Chest Pa And Lat (2 Views) dated 06/17/2019 FINDINGS: Lines: None. Lungs: Worsened bilateral interstitial and airspace disease. Pleural: No significant pleural effusions or pneumothorax. Cardiac: Similar size and configuration. Mediastinum: Within normal limits. Bones: No acute fractures. Other: None IMPRESSION: Worsening bilateral interstitial airspace disease that could reflect edema and/or multif ocal pneumonia.
[2022-06-08] MEDS ORDERED: ATORVASTATIN 40 MG TAB PO SCH (21:00)
[2022-06-08] MEDS ORDERED: GABAPENTIN 600 MG PO SCH (21:00)
[2022-06-08] MEDS: carvediloL 12.5 MG TAB PO SCH (21:01)
[2022-06-08] MEDS: ATORVASTATIN 80 MG TAB PO SCH (21:01)
[2022-06-08] MEDS: GABAPENTIN 300 MG CAP PO SCH (21:02)
[2022-06-09] MEDS: INSULIN -REGULAR HUMAN 50 UNIT/0.5 ML ML SQ SCH ×5 (00:34→21:53)
[2022-06-09] MEDS: FUROSEMIDE 40 MG/4 ML VIAL IV SCH ×3 (00:35→17:40)
--- NOTE | 2022-06-09 01:38 | P.PN ---
Subjective Date of Service: 06/09/22 Chief Complaint: Chest pain, NSTEMI Subjective: Improving (Pt reports chest pain is improving.) <Julio C Cotter - Last Filed: 06/09/22 01:39> Date of Service: 06/10/22 <HullAnjelicameena Jennifer - Last Filed: 06/10/22 10:21> Review of Systems 10-point ROS is otherwise unremarkable Respiratory: Shortness of Breath Cardiovascular: Chest Pain, Edema <Julio C Cotter - Last Filed: 06/09/22 01:39> Physical Examination - Vital Signs Temperature: 99.7 F Blood Pressure: 177/65 Pulse: 104 Respirations: 18 Pulse Ox (%): 94 - Physical Exam General: Alert, In no apparent distress, Oriented x3 HEENT: Atraumatic, PERRLA, EOMI Neck: Supple, JVD not distended Respiratory: Clear to auscultation bilaterally, Diminished Cardiovascular: Regular rate/rhythm, Normal S1 S2, Edema Gastrointestinal: Normal bowel sounds, No tenderness Musculoskeletal: No tenderness Integumentary: No rashes Neurological: Normal speech, Normal tone, Normal affect - Studies Microbiology Data (last 24 hrs): 06/07/22 23:42 Blood - Blood Anaerobic Blood Culture - Final 06/07/22 23:27 Blood - Blood Anaerobic Blood Culture - Final 06/07/22 23:30 Nasopharnyx Influenza Type A Antigen Screen - Final 06/07/22 23:30 Nasopharnyx Influenza Type B Antigen Screen - Final Medications List Reviewed: Yes <Julio C Cotter - Last Filed: 06/09/22 01:39> Assessment And Plan - Plan Assessment: Chest pain-ACS, NSTEMI Acute congestive heart failureunknown EF Diabetes mellitus type IIinsulin-dependent with hyperglycemia Hypertension Hyperlipidemia GERD Previous CVA Plan: Chest pain-ACS, NSTEMI: S/P cardiac catheterization with PCI of proximal LAD, cardiology planning to stage mid LAD PCI at a later time. Patent left circumflex stent with moderate OM1 disease in between the stents. Severe mid RCA stenosis however this is small vessel. Plan to continue aspirin, Plavix, statin. Plan for staged PCI of mid to distal LAD. Chest pain has improved. Acute congestive heart failureunknown EF: Echocardiogram pending, cardiology recommends aggressive diuresis with Lasix 40 mg IV every 8 this is ordered. Monitor electrolytes closely. Hypertension: Continue home medications Hyperlipidemia: Continue home medications GERD: Continue home medications Previous CVA: Continue home medications DVT PPX: Lovenox Code status: Full Discharge Plan: Home Plan to discharge in: 48 Hours - Code Status/Comfort Care Code Status Assessed: Yes (Full code) Critical Care: No Time Spent Managing PTS Care (In Minutes): 25 <Julio C Cotter - Last Filed: 06/09/22 01:39> Date of Service: 06/09/22 Subjective: Patient has severe chest pain. Troponins were slightly elevated this morning but they are back down today. Chest x-ray shows improvement. At this time patient is clinically doing better and anticipate discharge in the morning. Physical Examination: Vitals: Afebrile vital signs are stable Physical exam: Cardiovascular: Within normal limits. Lungs: Within normal limits Abdomen: Within normal limits Neuro: Awake, alert, oriented to person place and time Assessment: 1. Acute coronary syndrome Plan: 1. Continue with current plan of care as mentioned above <Raven Hull - Last Filed: 06/10/22 10:21>
[2022-06-09] MEDS: PANTOPRAZOLE 40MG TABLET PO SCH (06:09)
[2022-06-09] MEDS ORDERED: ACETAMINOPHEN 325 MG TABLET PO PRN (08:00)
[2022-06-09] MEDS ORDERED: NA CHLORIDE 0.9% 1,000 ML IV SCH (08:00)
[2022-06-09 08:15] LABS: Absolute Lymphocytes (CBC) 1.4 K/uL (0.7-4.9); Hematocrit 34.9 % (39.6-49.0); Lymphocytes % 9.4 % (15.3-44.8); MCV 87.8 fL (80-100); MPV 7.3 fL (7.6-11.3); RBC Red Blood Cell Count 3.97 M/uL (4.33-5.43)
[2022-06-09 08:37] LABS: Albumin 2.6 g/dL (3.4-5.0); Bilirubin Total 1.9 mg/dL (0.2-1.0); Magnesium 2.2 mg/dL (1.6-2.4); Potassium 4.2 mmol/L (3.5-5.1); Protein, Total 6.7 g/dL (6.4-8.2)
[2022-06-09 08:41] LABS: Troponin High Sensitivity 852.4 pg/mL (<58.9)
--- NOTE | 2022-06-09 08:46 | PN ---
Date of Progress Note: 06/09/2022 Subjective: Seen by bedside, doing well. No chest pain. Breathing is better. Review of Systems: No chest pain, shortness of breath, orthopnea, cough. No nausea, vomiting, diarrhea. All other syst ems reviewed and they were negative. Physical Examination: Vital Signs: Reviewed. Head and Neck: Pupils are equal, reactive to light. Intact eye movements. No JVD. No cervical lym phadenopathy. Neck is supple. Thyroid is not enlarged. Lungs: Clear to auscultation bilaterally. No rhonchi, wheezing, or crackles. No accessory muscle u se. Heart: Regular rate and rhythm. No extra sounds. Abdomen: Soft, nontender. Bowel sounds positive. No organomegaly. No masses or hernia. No rigidi ty or rebound. Extremities: 1 to 2+ pedal edema. No clubbing or cyanosis. Intact pulses. Skin: No rash. Neurologic: Alert, awake, oriented x3. No acute focal deficits appreciated. Investigations: BUN 13, creatinine is 1.03. Troponin went down to 575 and hemoglobin is 12.6. Assessment And Recommendations: 1.Acute non-ST elevation myocardial infarction, status post percutaneous coronary intervention of th e LAD. Continue aspirin, Plavix, and high-dose statin. The patient still has residual coronary jelly ry disease that needs intervention; however, we will plan to do that as an outpatient in about 4 week s with anesthesia. 2.Acute congestive heart failure exacerbation. Continue Lasix; however, carefully monitor BUN, creatinine, electrolytes. Please make sure there is BMP done today. SR/MODL Voice ID: [id number] Report ID: [id number]
[2022-06-09] MEDS: NITROGLYCERIN 0.4 MG/TAB SL PRN ×3 (08:50→09:00)
[2022-06-09] MEDS: CLOPIDOGREL 75 MG TABLET PO SCH (08:52)
[2022-06-09] MEDS: GABAPENTIN 300 MG CAP PO SCH ×4 (08:52→21:52)
[2022-06-09] MEDS: ESCITALOPRAM 20 MG TAB PO SCH (08:52)
[2022-06-09] MEDS: ASPIRIN EC 81 MG TAB PO SCH (08:52)
[2022-06-09] MEDS: carvediloL 12.5 MG TAB PO SCH ×2 (08:56→21:52)
[2022-06-09] MEDS: MORPHINE 2 MG/ML SYR IV PRN ×3 (09:17→22:06)
--- NOTE | 2022-06-09 09:37 | RAD REPORT ---
EXAM DESCRIPTION: RAD - Chest Single View - 06/09/2022 6:59 am CLINICAL HISTORY: pneumonia Chest pain. COMPARISON: Chest Single View dated 06/08/2022; Chest Single View dated 06/07/2022; Chest Pa And Lat (2 Views) dated 06/18/2019; Chest Single View dated 06/18/2019 FINDINGS: Portable technique limits examination quality. Moderate bilateral pulmonary opacities are noted, mildly improved since yesterday's study the heart m oderately enlarged No displaced fractures. IMPRESSION: Mild improvement lung aeration seen since yesterday's examination.
--- NOTE | 2022-06-09 13:43 | EKG ---
Test Date: 2022-06-07 Test Time: 21:15:17 Instrument Maintenance Supervisor: NARINDER MEASUREMENT RESULTS: Intervals: Rate: 94 TN: 154 QRSD: 88 QT: 360 QTc: 450 [place]: P: 63 TN: 154 QRS: 44 T: 46 INTERPRETIVE STATEMENTS: Normal sinus rhythm Nonspecific ST abnormality Abnormal ECG Compared to ECG 06/17/2019 23:44:00 ST (T wave) deviation now present Left ventricular hypertrophy no longer present Electronically Signed On 06-09-22 13:39:24 SERVICE COORDINATOR [facility] by Keyur Bonds
[2022-06-09] MEDS ORDERED: D50W 25 GM/50 ML SYRINGE IV PRN (17:13)
[2022-06-09] MEDS ORDERED: GLUCAGON 1 MG/VIAL IM PRN ×2 (17:13→17:16)
[2022-06-09] MEDS ORDERED: INSULIN 70/30 100 UNITS/ML SQ ONE (17:30)
[2022-06-09] MEDS ORDERED: DEXTROSE 10%-WATER 500 ML IV BAG IV PRN (17:35)
[2022-06-09] MEDS: ATORVASTATIN 80 MG TAB PO SCH (21:52)
[2022-06-10] MEDS: FUROSEMIDE 40 MG/4 ML VIAL IV SCH ×3 (00:47→16:35)
[2022-06-10 05:11] VITALS: O2SAT 95
[2022-06-10 05:45] LABS: Absolute Lymphocytes (CBC) 1.5 K/uL (0.7-4.9); Hematocrit 33.6 % (39.6-49.0); Lymphocytes % 11.9 % (15.3-44.8); MCV 86.6 fL (80-100); MPV 7.2 fL (7.6-11.3); RBC Red Blood Cell Count 3.87 M/uL (4.33-5.43)
[2022-06-10 05:57] LABS: Albumin 2.7 g/dL (3.4-5.0); Bilirubin Total 1.5 mg/dL (0.2-1.0); Potassium 4.3 mmol/L (3.5-5.1); Protein, Total 6.9 g/dL (6.4-8.2)
[2022-06-10] MEDS: PANTOPRAZOLE 40MG TABLET PO SCH (06:28)
[2022-06-10] MEDS: GABAPENTIN 300 MG CAP PO SCH ×3 (08:29→16:35)
[2022-06-10] MEDS: carvediloL 12.5 MG TAB PO SCH (08:29)
[2022-06-10] MEDS: ASPIRIN EC 81 MG TAB PO SCH (08:32)
[2022-06-10] MEDS: INSULIN -REGULAR HUMAN 50 UNIT/0.5 ML ML SQ SCH ×3 (08:32→16:35)
[2022-06-10] MEDS: ESCITALOPRAM 20 MG TAB PO SCH (08:32)
[2022-06-10] MEDS: CLOPIDOGREL 75 MG TABLET PO SCH (08:32)
[2022-06-10] MEDS: MORPHINE 2 MG/ML SYR IV PRN (10:06)
[2022-06-10] MEDS ORDERED: Levofloxacin 750mg IV 750 MG/150 ML BAG IV SCH (13:00)
[2022-06-10 13:17] VITALS: BP 165/60
--- NOTE | 2022-06-10 13:51 | RAD REPORT ---
EXAM DESCRIPTION: RAD - Chest Single View - 06/10/2022 1:37 pm CLINICAL HISTORY: pneumonia COMPARISON: Portable 06/09/2022 and 06/08/2022 TECHNIQUE: AP portable chest image was obtained 06/10/2022 1:37 pm . FINDINGS: Lung volumes are low. Interstitial and alveolar opacities are present in the lung bae. Right lung field is stable. There may be fractional further improvement in the lower left lung field. Cardiomediastinal silhouette is stable. No measurable pleural effusion and no pneumothorax. IMPRESSION: Minimal further improvement in the lower left lung field. Bilateral lung parenchymal opa cification is otherwise stable.
[2022-06-10 16:58] VITALS: TEMP 98.3
[2022-06-10] MEDS ORDERED: INSULIN 70/30 100 UNITS/ML SQ SCH (17:00)
--- NOTE | 2022-06-10 20:34 | PN ---
Date of Progress Note: 06/10/2022 Subjective: Seen by bedside, is doing well. Does not have any chest pain, but he continues to have shortness of breath on minimal exertion and feels short of breath. Review of Systems: Has lower extremity edema, orthopnea, shortness of breath, and chronic fatigue. Does not have any dy suria, polyuria, or urinary urgency. All other systems reviewed and they are negative. Physical Examination: Vital Signs: Reviewed. Head and Neck: Pupils are equal, reactive to light. Intact eye movements. No JVD. No cervical lym phadenopathy. Neck is supple. Thyroid is not enlarged. Lungs: Faint crackles in both bases. No accessory muscle use or muscle retraction. Heart: Regular rate and rhythm. No extra sounds. Abdomen: Soft, nontender. Bowel sounds positive. No organomegaly. No masses or hernia. No rigidi ty or rebound. Extremities: There is no clubbing, cyanosis. 3+ pitting edema. Neuro: Alert, awake, oriented x3. No acute focal deficits appreciated. Investigations: His BUN is 20, creatinine 1.1. Assessment/recommendation: 1.Non-ST elevation myocardial infarction, likely left anterior descending is a culprit, status post successful percutaneous coronary intervention. Continue on aspirin and Plavix. 2.Acute on chronic diastolic heart failure exacerbation. Obtain an echocardiogram if not already do ne. Continue Lasix at 40 mg q.8 hours. Monitor BUN, creatinine, electrolytes. The patient needs at least 1-2 more days in the hospital for aggressive diuresis. Carefully monitor BUN, creatinine, and electrolytes. 3.Hypertension. Blood pressure is significantly elevated, but should improve with further diuresis. SR/MODL Voice ID: [id number] Report ID: [id number]
--- NOTE | 2022-06-11 17:52 | EKG ---
Test Date: 2022-06-09 Test Time: 09:48:15 Phone Manager: ALIRIO MEASUREMENT RESULTS: Intervals: Rate: 102 NV: 156 QRSD: 90 QT: 350 QTc: 456 [place]: P: 63 NV: 156 QRS: 76 T: 12 INTERPRETIVE STATEMENTS: Sinus tachycardia Nonspecific ST abnormality Abnormal ECG Compared to ECG 06/07/2022 21:15:17 Sinus rhythm no longer present ST (T wave) deviation still present Electronically Signed On 06-11-22 17:46:37 DEPOT MANAGER by Keyur Bonds
== END 2022-06-10 18:04 | disposition home or self-care (01) | DRG 246 ==
LOC: ER 20:55 → ERHOLD 06-08 00:28 → 2ND 06-08 02:41 → OBSVTOIN 06-08 16:07
PROVIDERS: ADMIT Hospitalist; ATTEND Internal Medicine
PROC: 027034Z Dilation of Coronary Artery, One Artery with Drug-eluting Intraluminal Device, Percutaneous Approach (ICD-10-PCS; principal; 2022-06-08)
PROC: 4A023N7 Measurement of Cardiac Sampling and Pressure, Left Heart, Percutaneous Approach (ICD-10-PCS; 2022-06-08)
PROC: B2111ZZ Fluoroscopy of Multiple Coronary Arteries using Low Osmolar Contrast (ICD-10-PCS; 2022-06-08)
PROC: 5A09457 Assistance with Respiratory Ventilation, 24-96 Consecutive Hours, Continuous Positive Airway Pressure (ICD-10-PCS; 2022-06-08)
DX: I21.4 Non-ST elevation (NSTEMI) myocardial infarction (principal); I50.33 Acute on chronic diastolic (congestive) heart failure; I11.0 Hypertensive heart disease with heart failure; E78.5 Hyperlipidemia, unspecified; E11.65 Type 2 diabetes mellitus with hyperglycemia; E11.40 Type 2 diabetes mellitus with diabetic neuropathy, unspecified; K21.9 Gastro-esophageal reflux disease without esophagitis; E66.9 Obesity, unspecified; I25.10 Atherosclerotic heart disease of native coronary artery without angina pectoris; Z79.4 Long term (current) use of insulin; Z95.5 Presence of coronary angioplasty implant and graft; Z68.37 Body mass index [BMI] 37.0-37.9, adult; Z79.02 Long term (current) use of antithrombotics/antiplatelets; Z79.82 Long term (current) use of aspirin; Z86.73 Personal history of transient ischemic attack (TIA), and cerebral infarction without residual deficits; Z87.891 Personal history of nicotine dependence; Z79.899 Other long term (current) drug therapy; Z20.822 Contact with and (suspected) exposure to COVID-19
CPT/HCPCS: 36415; 71045; 76937; 80053; 80061; 81001; 82947; 83036; 83605; 83690; 83735; 83880; 84484; 85025; 85610; 85730; 87040; 87804; 87811; 92928; 93005; 93458; 93571; 96365; 96375; 99285; C1725; C1769; C1893; G0378; J0456; J0461; J1644; J1815; J1940; J2250; J2270; J2405; J2785; J3010; J7040; J7050; Q9967

== ENCOUNTER 2022-11-16 09:55 | Emergency (ER) | payer OTHER ==
--- OUTSIDE RECORDS SUMMARY | 2022-11-16 10:08 | XMS REPORT | Continuity of Care Document ---
:1965 Author Organization [facility] t Address [address] [place] [address]. [address] [place] [address] Care Team Providers Name Role Phone Michael Grullon Primary Care Physician Michael Gruloln Attending Clinician Unavailable ALEJO ARZATE Attending Clinician Unavailable ALEJO ARZATE Attending Clinician Unavailable Alejo Arzate MD Attending Clinician Doctor Unassigned, Lynn Attending Clinician Unavailable Keyur Bonds Attending Clinician Unavailable Michael Grullon Attending Clinician Radiology Attending Clinician Unavailable RADIOLOGY Attending Clinician Unavailable Michael Grullon Admitting Clinician Unavailable Keyur Bonds Admitting Clinician Unavailable Payers Payer Name Policy Type Policy Number Effective Date Expiration Date Megan schuster [facility]MERLY [facility] [employer] [id number] 2022spring 00:00:00 [id number] 2021 2022 [facility] ADVANTAGE 00:00:00 00:00:00 [facility] Problems Condition Condition Condition Status Onset Resolution Last Treating Co mments Source Name Details Category Date Date Treatment Clinician Date Dyslipidem Dyslipidem Disease Active 2015-06 U nivers ia ia 1-16 ity of 00:00: [place] 00 Medical Branch Diabetes Diabetes Disease Active Unive rs mellitus, mellitus, 03-05 ity of insulin insulin 00:00: [place] dependent dependent 00 Medi marck (IDDM), (IDDM), Branch uncontroll uncontroll ed ed Retinopath Retinopath Disease Active U nivers y y 03-05 ity of 00:00: [place] [facility] Branch Neuropathy Neuropathy Disease Active U nivers 630 ity of 00:00: [place] [facility] Branch Muscle Muscle Disease Active Univers cramps cramps 12-11 ity of 00:00: [place] 00 [facility] Obstructiv Obstructiv Problem C ommon e sleep e sleep Spirit apnea apnea - [facility] Erectile Erectile Problem Commo n dysfunctio dysfunctio Sp marissa n n [facility] [id number] History of Problem Co mmon CVA Spirit (cerebrova - CHI scular St accident) [facility] deficits [id number] Dog bite, Problem Com mon subsequent Spirit encounter [facility] [id number] Wound of Problem Comm on left lower Spirit extremity, - CHI subsequent [facility] [id number] HTN Problem Common (hypertens Spirit ion), [facility] benign [facility] Insomnia Insomnia Problem Commo n Spirit [facility] [id number] Venous Problem Common insufficie Spirit ncy of [facility] both lower [facility] [id number] Other Problem Common chronic Spirit pain [facility] [id number] Benign Problem Common neoplasm [facility] of [facility] ascending colon [facility] [id number] Chronic Problem Commo n diastolic Spirit congestive - [facility] heart [facility] Hearing Hearing Problem Common loss deficit [facility] [id number] Tubular Problem Commo n adenoma of Spirit colon [facility] [id number] Local Problem Common infection [facility] of the [facility] skin and subcutaneo [facility] us tissue, Medica l unspecifie Center d [id number] Cellulitis Problem C ommon [id number] of left Spirit lower - CHI extremity [facility] Left sided Left sided Problem C ommon ulcerative colitis Spiri t colitis with - CHI complicati [facility] [id number] Moderate Problem Commo n major Spirit depression - CHI , single [facility] [id number] PAD Problem Common (periphera Spirit l artery - CHI disease) [facility] [id number] Pain in Problem Comm on [id number] left Spirit shoulder - CHI [facility] [id number] Spinal Problem Common stenosis, Spirit lumbosacra - CHI l region [facility] Hyperglyce Type 2 Problem Commo n bryan due to diabetes Spir it type 2 mellitus - [facility] diabetes with [facility], Medical unspecifie Center d whether retirement insulin use [id number] Type 1 Problem Common diabetes [facility] mellitus - 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 disease of artery of [facility] coronary heart Medical artery Center without angina pectoris [id number] Primary Problem Common insomnia [facility] [id number] Morbid Problem Commo n [id number] (severe) Spirit obesity - CHI due to [facility] [id number] Body mass Problem Com mon index [facility] [BMI] - CHI 38.0-38.9, [facility] [id number] Left elbow Problem Com mon pain [facility] Sciatica Sciatic Problem Common pain, left Spirit [facility] [id number] Acute pain Problem Com mon of left Spirit shoulder - CHI [facility] Peripheral Peripheral Problem C ommon neuropathy neuropathy Sp marissa - CHI [facility] Chronic Chronic Problem Common back pain back pain Spir it - CHI [facility] Hyperlipid Hyperlipid Problem C ommon emia emia [facility] Mixed Depression Problem Commo n anxiety with Spirit and anxiety - CHI depressive [facility] Allergies, Adverse Reactions, Alerts Allergy Allergy Status Severity Reaction(s) Onset Inactive Treating Comm ents Source Name Type Date Date Clinician No Known DA Active U [facility] Allergie 07-20 Clear s 00:00: Grimaldo 00 [facility] NO KNOWN Drug Active Univers ALLERGIE Class ity of S [place] [facility] [place] Social History Social Habit Start Date Stop Date Quantity Comments Source History of [facility] - Tobacco Use [facility] Sex Assigned At Common Sp marissa - [facility] Tobacco use and 2022-10-05 2022-10-05 Smokeless tobacco Un iversity of exposure 00:00:00 00:00:00 non-user [facility] Alcohol intake 2022-10-05 2022-10-05 Current University of 00:00:00 00:00:00 non-drinker of [facility] alcohol (finding) Branch Exposure to 2022-09-24 2022-10-04 Not sure [facility] SARS-CoV-2 00:00:00 17:21:00 [facility] (event) [place] Smoking Status Start Date Stop Date Source Never Smoker [facility] Medications Ordered Filled Start Stop Current Ordering Indication Dosage Frequency Signature Comments Components Source Medication Medication Date Date Medication? Clinician (SIG) Name Name amLODIPine 2022- No 2.5mg Take 2.5 U nivers 2.5 mg 4-24 04-24 mg by ity of tablet 10:09: 00:00 mouth [place] 47 :00 daily. Medical Branch amLODIPine 2022- No 2.5mg Take 2.5 U nivers 2.5 mg 4-24 04-24 mg by ity of tablet 10:09: 00:00 mouth [place] 47 :00 daily. Medical Branch carBAMazepi Yes [id number] 200mg Take 1 Univers ne 200 mg 4-24 tablet by ity o f tablet 00:00: mouth [place] 00 every 12 Medical (twelve) Branch hours. carBAMazepi 2022-0 Yes [id number] 200mg Take 1 Univers ne 200 mg 4-24 tablet by ity o f tablet 00:00: mouth [place] 00 every 12 Medical (twelve) Branch hours. carBAMazepi 2022-0 Yes [id number] 200mg Take 1 Univers ne 200 mg 4-24 tablet by ity o f tablet 00:00: mouth [place] 00 every 12 Medical (twelve) Branch hours. FreeStyle FreeStyle No FreeStyle [place] 2 Hunter 2 2-08 Hunter 2 [place] - 00:00: [place] - 00 FreeStyle FreeStyle 2022-0 No FreeStyle [place] 2 Hunter 2 2-08 Hunter 2 Sensor - Sensor - 00:00: Sensor - 00 Alcohol Alcohol 0 No Alcohol Prep Pads Prep Pads 1-30 Prep Pads 70 % 70 % 00:00: 70 % 00 Alcohol Alcohol 0 No Alcohol Prep Pads Prep Pads 1-30 Prep Pads 70 % 70 % 00:00: 70 % 00 Mobic 7.5 Mobic 7.5 2021-06- No 1{table QD Mobic 7.5 MG MG 2-06-26 t} MG 00:00: 00:00 00 :00 Mobic 7.5 Mobic 7.5 2021-06- No 1{table QD Mobic 7.5 MG MG 2-14 06-26 t} MG 00:00: 00:00 00 :00 Mobic 7.5 Mobic 7.5 2021-06- No 1{table QD Mobic 7.5 MG MG 2-06-26 t} MG 00:00: 00:00 00 :00 Kenalog Kenalog 2021-0 No 40mg Common (Triamcinol (Triamcinol 7-20 S pirit one) one) 00:00: - CHI 00 [facility] Kenalog Kenalog 2021-0 No 40mg Common (Triamcinol (Triamcinol 7-20 S pirit one) one) 00:00: - CHI 00 [facility] Kenalog Kenalog 2021-0 No 40mg Common (Triamcinol (Triamcinol 7-20 S pirit one) one) 00:00: - CHI 00 [facility] Kenalog Kenalog 2021-0 No 40mg Common (Triamcinol (Triamcinol 7-20 S pirit one) one) 00:00: - CHI 00 [facility] Kenalog Kenalog 2-0 No 40mg Common (Triamcinol (Triamcinol 7-20 S pirit one) one) 00:00: - CHI 00 [facility] Kenalog Kenalog 2-0 No 40mg Common (Triamcinol (Triamcinol 7-20 S pirit one) one) 00:00: - CHI 00 [facility] Kenalog Kenalog 2021-0 No 40mg Common (Triamcinol (Triamcinol 7-20 S pirit one) one) 00:00: - CHI 00 [facility] Kenalog Kenalog 2021-0 No 40mg Common (Triamcinol (Triamcinol 7-20 S pirit one) one) 00:00: - CHI 00 [facility] Kenalog Kenalog 2021-0 No 40mg Common (Triamcinol (Triamcinol 7-20 S pirit one) one) 00:00: - CHI 00 [facility] Kenalog Kenalog 2021-0 No 40mg Common (Triamcinol (Triamcinol 7-20 S pirit one) one) 00:00: - CHI 00 [facility] Kenalog Kenalog 2021-0 No 40mg Common (Triamcinol (Triamcinol 7-20 S pirit one) one) 00:00: - CHI 00 [facility] Kenalog Kenalog 2021-0 No 40mg Common (Triamcinol (Triamcinol 7-20 S pirit one) one) 00:00: - CHI 00 [facility] Kenalog Kenalog 2021-0 No 40mg Common (Triamcinol (Triamcinol 7-20 S pirit one) one) 00:00: - CHI 00 [facility] Kenalog Kenalog 2021-0 No 40mg Common (Triamcinol (Triamcinol 7-20 S pirit one) one) 00:00: - CHI [facility] HumuLIN HumuLIN 0 No BID HumuLIN 70/30 70/30 12-23 70/30 (70-30) 100 (70-30) 100 00:00: (70-30) UNIT/ML UNIT/ML 00 100 UNIT/ML Insulin Insulin No Insulin Syringe-Nee Syringe-Nee 12-23 Syringe-Ne dle U-100 dle U-100 00:00: edle U-100 31G X 5/16" 31G X 5/16" 00 31G X 1 ML 1 ML /16" 1 ML HumuLIN HumuLIN 0 No BID HumuLIN 70/30 70/30 7-12 70/30 (70-30) 100 (70-30) 100 00:00: (70-30) UNIT/ML UNIT/ML 00 100 UNIT/ML Insulin Insulin 2022-0 No Insulin Syringe-Nee Syringe-Nee 7-12 Syringe-Ne dle U-100 dle U-100 00:00: edle U-100 31G X 5/16" 31G X 5/16" 00 31G X 1 ML 1 ML /16" 1 ML HumuLIN HumuLIN 2022-0 No BID HumuLIN 70/30 70/30 7-12 70/30 (70-30) 100 (70-30) 100 00:00: (70-30) UNIT/ML UNIT/ML 00 100 UNIT/ML Insulin Insulin 2-0 No Insulin Syringe-Nee Syringe-Nee - Syringe-Ne dle U-100 dle U-100 00:00: edle U-100 31G X 5/16" 31G X /16" 00 31G X 1 ML 1 ML 16" 1 ML HumuLIN HumuLIN 2-0 No BID HumuLIN 70/30 70/30 7-12 70/30 (70-30) 100 (70-30) 100 00:00: (70-30) UNIT/ML UNIT/ML 00 100 UNIT/ML Insulin Insulin 2022-0 No Insulin Syringe-Nee Syringe-Nee -12 Syringe-Ne dle U-100 dle U-100 00:00: edle U-100 31G X 5/16" 31G X 5/16" 00 31G X 1 ML 1 ML 16" 1 ML HumuLIN HumuLIN 2-0 No BID HumuLIN 70/30 70/30 7- 70/30 (70-30) 100 (70-30) 100 00:00: (70-30) UNIT/ML UNIT/ML 00 100 UNIT/ML Insulin Insulin 2022-0 No Insulin Syringe-Nee Syringe-Nee 7-12 Syringe-Ne dle U-100 dle U-100 00:00: edle U-100 31G X 5/16" 31G X 5/16" 00 31G X 1 ML 1 ML /16" 1 ML HumuLIN HumuLIN 2022-0 No BID [...] 00 31G X 1 ML 1 ML /16" 1 ML Insulin Insulin 2021-0 No Insulin Syringe-Nee Syringe-Nee -12 Syringe-Ne dle U-100 dle U-100 00:00: edle U-100 31G X 5/16" 31G X 5/16" 00 31G X 1 ML 1 ML 5/16" 1 ML Insulin Insulin 2021-0 No Insulin Syringe-Nee Syringe-Nee -12 Syringe-Ne dle U-100 dle U-100 00:00: edle U-100 31G X 5/16" 31G X 5/16" 00 31G X 1 ML 1 ML /16" 1 ML Insulin Insulin 2021-0 No Insulin Syringe-Nee Syringe-Nee 7-12 Syringe-Ne dle U-100 dle U-100 00:00: edle U-100 31G X 5/16" 31G X 5/16" 00 31G X 1 ML 1 ML 5/16" 1 ML Insulin Insulin 2-0 No Insulin Syringe-Nee Syringe-Nee 7-12 Syringe-Ne dle U-100 dle U-100 00:00: edle U-100 31G X 5/16" 31G X 5/16" 00 31G X 1 ML 1 ML 5/16" 1 ML Insulin Insulin 2022-0 No Insulin Syringe-Nee Syringe-Nee 7-12 Syringe-Ne dle U-100 dle U-100 00:00: edle U-100 31G X 5/16" 31G X /16" 00 31G X 1 ML 1 ML /16" 1 ML Insulin Insulin 2021-0 No Insulin Syringe-Nee Syringe-Nee 7-12 Syringe-Ne dle U-100 dle U-100 00:00: edle U-100 31G X 5/16" 31G X 5/16" 00 31G X 1 ML 1 ML 16" 1 ML Insulin Insulin 2021-0 No Insulin Syringe-Nee Syringe-Nee 7-12 Syringe-Ne dle U-100 dle U-100 00:00: edle U-100 31G X 5/16" 31G X 5/16" 00 31G X 1 ML 1 ML 16" 1 ML Lidocaine Lidocaine 2-0 No 10mg Com 07-14 Spirit 00:00: - CHI [facility] Kenalog Kenalog 2-0 No 40mg Common (Triamcinol (Triamcinol 1-31 S pirit one) one) 00:00: - CHI [facility] Lidocaine Lidocaine 2-0 No 10mg Com 07-14 Spirit 00:00: - CHI [facility] Kenalog Kenalog 2-0 No 40mg Common (Triamcinol (Triamcinol 1-31 S pirit one) one) 00:00: - CHI [facility] Lidocaine Lidocaine 2-0 No 10mg Com 07-14 Spirit 00:00: - CHI [facility] Kenalog Kenalog 2-0 No 40mg Common (Triamcinol (Triamcinol 1-31 S pirit one) one) 00:00: - CHI [facility] Lidocaine Lidocaine 2-0 No 10mg Com 07-14 Spirit 00:00: - CHI [facility] Kenalog Kenalog 2-0 No 40mg Common (Triamcinol (Triamcinol 1-31 S pirit one) one) 00:00: - CHI [facility] Lidocaine Lidocaine 2022-0 No 10mg Com 07-14 Spirit 00:00: - CHI [facility] Kenalog Kenalog 2-0 No 40mg Common (Triamcinol (Triamcinol 1-31 S pirit one) one) 00:00: - CHI 00 [facility] Lidocaine Lidocaine 2-0 No 10mg Com 07-14 Spirit 00:00: - CHI 00 [facility] Kenalog Kenalog 2-0 No 40mg Common (Triamcinol (Triamcinol 1-31 S pirit one) one) 00:00: - CHI 00 [facility] Lidocaine Lidocaine 2-0 No 10mg Com 07-14 Spirit 00:00: - CHI 00 [facility] Kenalog Kenalog 2-0 No 40mg Common (Triamcinol (Triamcinol 1-31 S pirit one) one) 00:00: - CHI [facility] Lidocaine Lidocaine 2-0 No 10mg Com 07-14 Spirit 00:00: - CHI 00 [facility] Kenalog Kenalog 2-0 No 40mg Common (Triamcinol (Triamcinol 1-31 S pirit one) one) 00:00: - CHI [facility] Lidocaine Lidocaine 2-0 No 10mg Com 07-14 Spirit 00:00: - CHI 00 [facility] Kenalog Kenalog 2-0 No 40mg Common (Triamcinol (Triamcinol 1-31 S pirit one) one) 00:00: - CHI 00 [facility] Lidocaine Lidocaine 2-0 No 10mg Com 07-14 Spirit 00:00: - CHI 00 [facility] Kenalog Kenalog 2-0 No 40mg Common (Triamcinol (Triamcinol 1-31 S pirit one) one) 00:00: - CHI 00 [facility] Lidocaine Lidocaine 2-0 No 10mg Com 07-14 Spirit 00:00: - CHI 00 [facility] Kenalog Kenalog 2-0 No 40mg Common (Triamcinol (Triamcinol 1-31 S pirit one) one) 00:00: - CHI 00 [facility] Lidocaine Lidocaine 2022-0 No 10mg Com 07-14 Spirit 00:00: - CHI [facility] Kenalog Kenalog 2-0 No 40mg Common (Triamcinol (Triamcinol 1-31 S pirit one) one) 00:00: - CHI 00 [facility] Lidocaine Lidocaine 2021-0 No 10mg Com 07-14 Spirit 00:00: - CHI 00 [facility] Kenalog Kenalog 2021-0 No 40mg Common (Triamcinol (Triamcinol 1-31 S pirit one) one) 00:00: - CHI [facility] Lidocaine Lidocaine 2021-0 No 10mg Com 07-14 Spirit 00:00: - CHI 00 [facility] Kenalog Kenalog 2021-0 No 40mg Common (Triamcinol (Triamcinol -31 S pirit one) one) 00:00: - CHI 00 [facility] gadoteridol 2019- 2020- No .2mL/kg 0.2 mL/kg, Univers (PROHANCE-1 04-11 Intravenou i ty of 5 mL) 15:45: 17:18 s, ONCE, 1 [place] injection 00 :00 dose, Emma Medic al 0.2 mL/kg 04/11/20 Branch at 1045, Routine Kenalog Kenalog 2019-0 No 40mg Common (Triamcinol (Triamcinol 3-24 S pirit one) one) 00:00: - CHI [facility] Kenalog Kenalog 2019-0 No 40mg Common (Triamcinol (Triamcinol 3-24 S pirit one) one) 00:00: - CHI [facility] Kenalog Kenalog 2020-0 No 40mg Common (Triamcinol (Triamcinol 3-24 S pirit one) one) 00:00: - CHI 00 [facility] Kenalog Kenalog 2020-0 No 40mg Common (Triamcinol (Triamcinol 3-24 S pirit one) one) 00:00: - CHI [facility] Kenalog Kenalog 2020-0 No 40mg Common (Triamcinol (Triamcinol 3-24 S pirit one) one) 00:00: - CHI [facility] Kenalog Kenalog 2020-0 No 40mg Common (Triamcinol (Triamcinol 3-24 S pirit one) one) 00:00: - CHI 00 [facility] Kenalog Kenalog 2020-0 No 40mg Common (Triamcinol (Triamcinol 3-24 S pirit one) one) 00:00: - CHI 00 [facility] Kenalog Kenalog 2020-0 No 40mg Common (Triamcinol (Triamcinol 3-24 S pirit one) one) 00:00: - CHI 00 [facility] Kenalog Kenalog 2020-0 No 40mg Common (Triamcinol (Triamcinol 3-24 S pirit one) one) 00:00: - CHI 00 [facility] Kenalog Kenalog 2020-0 No 40mg Common (Triamcinol (Triamcinol 3-24 S pirit one) one) 00:00: - CHI 00 [facility] Kenalog Kenalog 2020-0 No 40mg Common (Triamcinol (Triamcinol 3-24 S pirit one) one) 00:00: - CHI 00 [facility] Kenalog Kenalog 2020-0 No 40mg Common (Triamcinol (Triamcinol 3-24 S pirit one) one) 00:00: - CHI 00 [facility] Kenalog Kenalog 2020-0 No 40mg Common (Triamcinol (Triamcinol 3-24 S pirit one) one) 00:00: - CHI 00 [facility] Kenalog Kenalog 2020-0 No 40mg Common (Triamcinol (Triamcinol 3-24 S pirit one) one) 00:00: - CHI 00 [facility] Novolin R Novolin R 2019-1 Yes Michael per Errol beckham 06-17 [place] sliding Spirit 00:00: scale 2 - CHI 00 units - 28 [facility] NovoLIN R NovoLIN R 2019-1 No TID [...] 00:00: UNIT/ML 00 NovoLIN R NovoLIN R 2018- No TID NovoLIN R 100 UNIT/ML 100 UNIT/ML 06-17 100 00:00: UNIT/ML 00 NovoLIN R NovoLIN R 2018- No TID NovoLIN R 100 UNIT/ML 100 UNIT/ML 06-17 100 00:00: UNIT/ML 00 NovoLIN R NovoLIN R 2018- No TID NovoLIN R 100 UNIT/ML 100 UNIT/ML 06-17 100 00:00: UNIT/ML 00 NovoLIN R NovoLIN R 2018- No TID NovoLIN R 100 UNIT/ML 100 UNIT/ML 06-17 100 00:00: UNIT/ML 00 NovoLIN R NovoLIN R 2018- No TID NovoLIN R 100 UNIT/ML 100 UNIT/ML 06-17 100 00:00: UNIT/ML 00 NovoLIN R NovoLIN R 2018- No TID NovoLIN R 100 UNIT/ML 100 UNIT/ML 06-17 100 00:00: UNIT/ML 00 NovoLIN R NovoLIN R 2018- No TID NovoLIN R 100 UNIT/ML 100 UNIT/ML 06-17 100 00:00: UNIT/ML 00 NovoLIN R NovoLIN R 2019- No TID NovoLIN R 100 UNIT/ML 100 UNIT/ML 06-17 100 00:00: UNIT/ML 00 dulaglutide Yes [id number] 1.5mg inject 1.5 Univers (TRULICITY) 8-27 mg under ity of 1.5 mg/0.5 00:00: the skin [place] as mL PnIj 00 weekly. Medical Branch dulaglutide Yes [id number] 1.5mg inject 1.5 Univers (TRULICITY) 8-27 mg under ity of 1.5 mg/0.5 00:00: the skin [place] as mL PnIj 00 weekly. Medical Branch dulaglutide Yes [id number] 1.5mg inject 1.5 Univers (TRULICITY) 8-27 mg under ity of 1.5 mg/0.5 00:00: the skin [place] as mL PnIj 00 weekly. Medical Branch dulaglutide Yes [id number] 1.5mg inject 1.5 Univers (TRULICITY) 8-27 mg under ity of 1.5 mg/0.5 00:00: the skin [place] as mL PnIj 00 weekly. Medical Branch dulaglutide Yes [id number] 1.5mg inject 1.5 Univers (TRULICITY) 8-27 mg under ity of 1.5 mg/0.5 00:00: the skin [place] as mL PnIj 00 weekly. Medical Branch dulaglutide Yes [id number] 1.5mg inject 1.5 Univers (TRULICITY) 8-27 mg under ity of 1.5 mg/0.5 00:00: the skin [place] as mL PnIj 00 weekly. Medical Branch dulaglutide Yes [id number] 1.5mg inject 1.5 Univers (TRULICITY) 8-27 mg under ity of 1.5 mg/0.5 00:00: the skin [place] as mL PnIj 00 weekly. Medical Branch dulaglutide Yes [id number] 1.5mg inject 1.5 Univers (TRULICITY) 8-27 mg under ity of 1.5 mg/0.5 00:00: the skin [place] as mL PnIj 00 weekly. Medical Branch dulaglutide Yes [id number] 1.5mg inject 1.5 Univers (TRULICITY) 8-27 mg under ity of 1.5 mg/0.5 00:00: the skin [place] as mL PnIj 00 weekly. Medical Branch dulaglutide Yes [id number] 1.5mg inject 1.5 Univers (TRULICITY) 8-27 mg under ity of 1.5 mg/0.5 00:00: the skin [place] as mL PnIj 00 weekly. Medical Branch dulaglutide Yes [id number] 1.5mg inject 1.5 Univers (TRULICITY) 8-27 mg under ity of 1.5 mg/0.5 00:00: the skin [place] as mL PnIj 00 weekly. Medical Branch dulaglutide Yes [id number] 1.5mg inject 1.5 Univers (TRULICITY) 8-27 mg under ity of 1.5 mg/0.5 00:00: the skin [place] as mL PnIj 00 weekly. Medical Branch dulaglutide Yes [id number] 1.5mg inject 1.5 Univers (TRULICITY) 8-27 mg under ity of 1.5 mg/0.5 00:00: the skin [place] as mL PnIj 00 weekly. Medical Branch dulaglutide Yes [id number] 1.5mg inject 1.5 Univers (TRULICITY) 8-27 mg under ity of 1.5 mg/0.5 00:00: the skin [place] as mL PnIj 00 weekly. Medical Branch dulaglutide Yes [id number] 1.5mg inject 1.5 Univers (TRULICITY) 8-27 mg under ity of 1.5 mg/0.5 00:00: the skin [place] as mL PnIj 00 weekly. Medical Branch dulaglutide Yes [id number] 1.5mg inject 1.5 Univers (TRULICITY) 8-27 mg under ity of 1.5 mg/0.5 00:00: the skin [place] as mL PnIj 00 weekly. Medical Branch dulaglutide Yes [id number] 1.5mg inject 1.5 Univers (TRULICITY) 8-27 mg under ity of 1.5 mg/0.5 00:00: the skin [place] as mL PnIj 00 weekly. Medical Branch dulaglutide Yes [id number] 1.5mg inject 1.5 Univers (TRULICITY) 8-27 mg under ity of 1.5 mg/0.5 00:00: the skin [place] as mL PnIj 00 weekly. Medical Branch insulin Yes [id number] 28U inject Uni vers lispro, 5 28-34 ity of human, 00:00: Units [place] (HUMALOG) 00 under the Medic al 100 unit/mL skin 3 Branch injection (three) times daily before meals. insulin Yes [id number] 28U inject Uni vers lispro, 5-25 28-34 ity of human, 00:00: Units [place] (HUMALOG) 00 under the Medic al 100 unit/mL skin 3 Branch injection (three) times daily before meals. insulin Yes [id number] 28U inject Uni vers lispro, 5- 28-34 ity of human, 00:00: Units [place] (HUMALOG) 00 under the Medic al 100 unit/mL skin 3 Branch injection (three) times daily before meals. insulin 2017- Yes [id number] 28U inject Uni vers lispro, 5 28-34 ity of human, 00:00: Units [place] (HUMALOG) 00 under the Medic al 100 unit/mL skin 3 Branch injection (three) times daily before meals. insulin Yes [id number] 28U inject Univ ers lispro, 5 28-34 ity of human, 00:00: Units [place] (HUMALOG) 00 under the Medic al 100 unit/mL skin 3 Branch injection (three) times daily before meals. insulin Yes [id number] 28U inject Univ ers lispro, 5 28-34 ity of human, 00:00: Units [place] (HUMALOG) 00 under the Medic al 100 unit/mL skin 3 Branch injection (three) times daily before meals. insulin Yes [id number] 28U inject Univ ers lispro, 11-05 28-34 ity of human, 00:00: Units [place] (HUMALOG) 00 under the Medic al 100 unit/mL skin 3 Branch injection (three) times daily before meals. insulin Yes [id number] 28U inject Univ ers lispro, 5 28-34 ity of human, 00:00: Units [place] (HUMALOG) 00 under the Medic al 100 unit/mL skin 3 Branch injection (three) times daily before meals. insulin Yes [id number] 28U inject Univ ers lispro, 11-05 28-34 ity of human, 00:00: Units [place] (HUMALOG) 00 under the Medic al 100 unit/mL skin 3 Branch injection (three) times daily before meals. escitalopra Yes 10mg Take 10 mg Univers m oxalate 5-07 by mouth ity of (LEXAPRO) 18:23: daily. [place] 10 mg 19 Medical tablet Branch clopidogrel Yes 75mg Take 75 mg Univers (PLAVIX) 75 5-07 by mouth ity of mg tablet 18:23: daily. [place] 19 Medical Branch amLODIPine Yes 2.5mg Take 2.5 Un marc 2.5 mg 5-07 mg by ity of tablet 18:23: mouth [place] 19 daily. Medical Branch escitalopra Yes 10mg Take 10 mg Univers m oxalate 5-07 by mouth ity of (LEXAPRO) 18:23: daily. [place] 10 mg 19 Medical tablet Branch clopidogrel 0 Yes 75mg Take 75 mg Univers (PLAVIX) 75 5-07 by mouth ity of mg tablet 18:23: daily. [place] Medical Branch amLODIPine Yes 2.5mg Take 2.5 Un marc 2.5 mg 5-07 mg by ity of tablet 18:23: mouth [place] 19 daily. Medical Branch escitalopra Yes 10mg Take 10 mg Univers m oxalate 5-07 by mouth ity of (LEXAPRO) 18:23: daily. [place] 10 mg Medical tablet Branch clopidogrel Yes 75mg Take 75 mg [facility] (PLAVIX) 75 5-07 by mouth ity of mg tablet 18:23: daily. [place] [facility] amLODIPine Yes 2.5mg Take 2.5 [facility] [place] 2.5 mg 5-07 mg by ity of tablet 18:23: mouth [place] 19 daily. Medical Branch escitalopra Yes 10mg Take 10 mg [facility] m oxalate 5-07 by mouth ity of (LEXAPRO) 18:23: daily. [place] 10 mg Medical tablet Branch clopidogrel Yes 75mg Take 75 mg [facility] (PLAVIX) 75 5-07 by mouth ity of mg tablet 18:23: daily. [place] [facility] amLODIPine Yes 2.5mg Take 2.5 [facility] [place] 2.5 mg 5-07 mg by ity of tablet 18:23: mouth [place] 19 daily. Medical Branch escitalopra Yes 10mg Take 10 mg [facility] m oxalate 5-07 by mouth ity of (LEXAPRO) 18:23: daily. [place] 10 mg Medical tablet Branch clopidogrel 0 Yes 75mg Take 75 mg [facility] (PLAVIX) 75 5-07 by mouth ity of mg tablet 18:23: daily. [place] [address] Medical Branch amLODIPine Yes 2.5mg Take 2.5 [facility] [place] 2.5 mg 5-07 mg by ity of tablet 18:23: mouth [place] 19 daily. Medical Branch escitalopra Yes 10mg Take 10 mg [facility] m oxalate 5-07 by mouth ity of (LEXAPRO) 13:23: daily. [place] 10 mg 19 Medical tablet Branch clopidogrel 0 Yes 75mg Take 75 mg [facility] (PLAVIX) 75 5-07 by mouth ity of mg tablet 13:23: daily. [address] escitalopra Yes 10mg Take 10 mg [facility] m oxalate 5-07 by mouth ity of (LEXAPRO) 13:23: daily. [place] 10 mg 19 Medical tablet Branch clopidogrel 0 Yes 75mg Take 75 mg [facility] (PLAVIX) 75 5-07 by mouth ity of mg tablet 13:23: daily. [address] escitalopra Yes 10mg Take 10 mg [facility] m oxalate 5-07 by mouth ity of (LEXAPRO) 13:23: daily. [place] 10 mg 19 Medical tablet Branch clopidogrel Yes 75mg Take 75 mg [facility] (PLAVIX) 75 5-07 by mouth ity of mg tablet 13:23: daily. [address] escitalopra Yes 10mg Take 10 mg [facility] m oxalate 5-07 by mouth ity of (LEXAPRO) 13:23: daily. [place] 10 mg Medical tablet Branch clopidogrel Yes 75mg Take 75 mg [facility] (PLAVIX) 75 5-07 by mouth ity of mg tablet 13:23: daily. [address] amLODIPine Yes 2.5mg Take 2.5 [facility] [place] 2.5 mg 5-07 mg by ity of tablet 13:23: mouth [place] [address] daily. Medical Branch insulin NPH Yes [id number] 40U inject 40 [facility] 100 unit/mL 5-07 Units ity of injection 00:00: under the [place] 00 skin every Medical morning Branch and evening. insulin NPH Yes [id number] 40U inject 40 [facility] 100 unit/mL 5-07 Units ity of injection 00:00: under the [place] 00 skin every Medical morning Branch and evening. insulin NPH Yes [id number] 40U inject 40 [facility] 100 unit/mL 5-07 Units ity of injection 00:00: under the [place] 00 skin every Medical morning Branch and evening. insulin NPH Yes [id number] 40U inject 40 [facility] 100 unit/mL 5-07 Units ity of injection 00:00: under the [place] 00 skin every Medical morning Branch and evening. insulin NPH 2018-0 Yes [id number] 40U inject 40 [facility] 100 unit/mL 5-07 Units ity of injection 00:00: under the [place] 00 skin every Medical morning Branch and evening. insulin NPH 2018-0 Yes [id number] 40U inject 40 [facility] 100 unit/mL 5-07 Units ity of injection 00:00: under the [place] 00 skin every Medical morning Branch and evening. insulin NPH 2018-0 Yes [id number] 40U inject 40 [facility] 100 unit/mL 5-07 Units ity of injection 00:00: under the [place] 00 skin every Medical morning Branch and evening. insulin NPH 2018-0 Yes [id number] 40U inject 40 [facility] 100 unit/mL 5-07 Units ity of injection 00:00: under the [place] 00 skin every Medical morning Branch and evening. insulin NPH 2017-0 Yes [id number] 40U inject 40 [facility] 100 unit/mL 5-07 Units ity of injection 00:00: under the [place] 00 skin every Medical morning Branch and evening. atorvastati 2018-0 Yes 40mg Take 40 mg [facility] n 80 mg 1-18 by mouth ity of tablet 00:00: every [place] evening. Medical Branch lisinopril 2018-0 Yes 20mg Take 20 mg U nivers 20 mg 1-18 by mouth ity of tablet 00:00: daily. Medical Branch atorvastati 2018-0 Yes 40mg Take 40 mg [facility] n 80 mg 1-18 by mouth ity of tablet 00:00: every [place] evening. Medical Branch lisinopril 2018-0 Yes 20mg Take 20 mg U nivers 20 mg 1-18 by mouth ity of tablet 00:00: daily. Medical Branch atorvastati 2018-0 Yes 40mg Take 40 mg [facility] n 80 mg 1-18 by mouth ity of tablet 00:00: every [place] evening. Medical Branch lisinopril 2018-0 Yes 20mg Take 20 mg U nivers 20 mg 1-18 by mouth ity of tablet 00:00: daily. Medical Branch atorvastati 2018-0 Yes 40mg Take 40 mg [facility] n 80 mg 1-18 by mouth ity of tablet 00:00: every [place] evening. Medical Branch lisinopril 2018-0 Yes 20mg Take 20 mg U nivers 20 mg 1-18 by mouth ity of tablet 00:00: daily. Medical Branch atorvastati 2018-0 Yes 40mg Take 40 mg [facility] n 80 mg 1-18 by mouth ity of tablet 00:00: every [place] 00 evening. Medical Branch lisinopril 2018-0 Yes 20mg Take 20 mg U nivers 20 mg 1-18 by mouth ity of tablet 00:00: daily. Medical Branch atorvastati 2018-0 Yes 40mg Take 40 mg [facility] n 80 mg 1-18 by mouth ity of tablet 00:00: every [place] 00 evening. Medical Branch lisinopril 2018-0 Yes 20mg Take 20 mg U nivers 20 mg 1-18 by mouth ity of tablet 00:00: daily. Medical Branch atorvastati 2017-0 Yes 40mg Take 40 mg Univers n 80 mg 1-18 by mouth ity of tablet 00:00: every [place] evening. Medical Branch lisinopril 2017-0 Yes 20mg Take 20 mg U nivers 20 mg 1-18 by mouth ity of tablet 00:00: daily. Medical Branch atorvastati 2018-0 Yes 40mg Take 40 mg [facility] n 80 mg 1-18 by mouth ity of tablet 00:00: every [place] evening. Medical Branch lisinopril 2018-0 Yes 20mg Take 20 mg U nivers 20 mg 1-18 by mouth ity of tablet 00:00: daily. Medical Branch atorvastati 2018-0 Yes 40mg Take 40 mg [facility] n 80 mg 1-18 by mouth ity of tablet 00:00: every [place] evening. Medical Branch lisinopril 2018-0 Yes 20mg Take 20 mg U nivers 20 mg 1-18 by mouth ity of tablet 00:00: daily. Medical Branch gabapentin 2016-0 Yes [id number] 600mg Take 1 Univers (NEURONTIN) 8-16 tablet by ity of 600 mg 00:00: mouth 3 [place] tablet 00 (three) Medical times [place] daily. gabapentin 2015-0 Yes [id number] 600mg Take 1 Univers (NEURONTIN) 8-16 tablet by ity of 600 mg 00:00: mouth 3 [place] tablet 00 (three) Medical times [place] daily. gabapentin 2015-0 Yes [id number] 600mg Take 1 [facility] (NEURONTIN) 8-16 tablet by ity of 600 mg 00:00: mouth 3 [place] tablet 00 (three) Medical times Branch daily. gabapentin 2016-0 Yes [id number] 600mg Take 1 [facility] (NEURONTIN) 8-16 tablet by ity of 600 mg 00:00: mouth 3 [place] tablet 00 (three) Medical times Branch daily. gabapentin 2016-0 Yes [id number] 600mg Take 1 [facility] (NEURONTIN) 8-16 tablet by ity of 600 mg 00:00: mouth 3 [place] tablet 00 (three) Medical times Branch daily. gabapentin 2016-0 Yes [id number] 600mg Take 1 Univers (NEURONTIN) 8-16 tablet by ity of 600 mg 00:00: mouth 3 [place] tablet 00 (three) Medical times Branch daily. gabapentin 2016-0 Yes [id number] 600mg Take 1 Univers (NEURONTIN) 8-16 tablet by ity of 600 mg 00:00: mouth 3 [place] tablet 00 (three) Medical times Branch daily. gabapentin 2016-0 Yes [id number] 600mg Take 1 [facility] (NEURONTIN) 8-16 tablet by ity of 600 mg 00:00: mouth 3 [place] tablet 00 (three) Medical times Branch daily. gabapentin 2016-0 Yes [id number] 600mg Take 1 [facility] (NEURONTIN) 8-16 tablet by ity of 600 mg 00:00: mouth 3 [place] tablet 00 (three) Medical times Branch daily. 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 80 Lipitor 80 No 1{table QD Lipitor 80 MG MG t} MG traMADol traMADol No 1{table BID traMADol HCl 50 MG HCl 50 MG t_as_ne HCl 50 MG eded} Gabapentin Gabapentin No QID Gabapentin 600 MG 600 MG 600 MG Neurontin Neurontin No 1{table QD Neurontin 600 MG 600 MG t} 600 MG HumuLIN HumuLIN No HumuLIN 70/30 70/30 70/30 (70-30) 100 (70-30) 100 (70-30) UNIT/ML UNIT/ML 100 UNIT/ML Carvedilol Carvedilol No Carvedilol 12.5 MG 12.5 MG 12.5 MG Cyclobenzap Cyclobenzap No Cyclobenza rine HCl 10 rine HCl 10 adán HCl MG MG 10 MG Furosemide Furosemide No 1{table BID Furosemide 80 MG 80 MG t} 80 MG OneTouch OneTouch No QID OneTouch Ultra Test Ultra Test Ultra Test - - - HYDROcodone HYDROcodone No 1{table QID HYDROcodon -Acetaminop -Acetaminop t_as_ne e-Acetamin hen 7.5-325 hen 7.5-325 eded} ophen MG MG 7.5-325 MG traZODone traZODone No traZODone HCl 100 MG HCl 100 MG HCl 100 MG Neurontin Neurontin No 1{table QD Neurontin 600 MG 600 MG t} 600 MG Escitalopra Escitalopra No 1{table QD Escitalopr m Oxalate m Oxalate t} am Oxalate 20 MG 20 MG 20 MG Gabapentin Gabapentin No QID Gabapentin 600 MG 600 MG 600 MG hydrOXYzine hydrOXYzine No 1{table QID hydrOXYzin HCl 10 MG HCl 10 MG t_as_ne e HCl 10 eded} MG traZODone traZODone No 1{table QD traZODone HCl 100 MG HCl 100 MG t_at_be HCl 100 MG dtime} Lipitor 80 Lipitor 80 No 1{table QD Lipitor 80 MG MG t} MG OneTouch OneTouch No OneTouch Ultra Test Ultra Test Ultra Test - - - ProAir HFA ProAir HFA No 2{puffs QID ProAir HFA 108 (90 108 (90 _as_nee 108 (90 Base) Base) ded} Base) MCG/ACT MCG/ACT MCG/ACT traMADol traMADol No 1{table BID traMADol HCl 50 MG HCl 50 MG t_as_ne HCl 50 MG eded} HumuLIN HumuLIN No BID HumuLIN 70/30 70/30 70/30 (70-30) 100 (70-30) 100 (70-30) UNIT/ML UNIT/ML 100 UNIT/ML Coreg 12.5 Coreg 12.5 No 1{table BID Coreg 12.5 MG MG t} MG Clopidogrel Clopidogrel No Clopidogre Bisulfate Bisulfate l 75 MG 75 MG Bisulfate 75 MG Lexapro 20 Lexapro 20 No Lexapro 20 MG MG MG Lipitor 80 Lipitor 80 No 1{table QD Lipitor 80 MG MG t} MG HumuLIN R HumuLIN R No TID HumuLIN R 100 UNIT/ML 100 UNIT/ML 100 UNIT/ML Atorvastati Atorvastati No Atorvastat n Calcium n Calcium in Calcium 80 MG 80 MG 80 MG Escitalopra Escitalopra No Escitalopr m Oxalate m Oxalate am Oxalate 20 MG 20 MG 20 MG Tylenol 8 Tylenol 8 No 2{table TID Tylenol 8 Hour 650 MG Hour 650 MG ts_as_n Hour 650 eeded} MG amLODIPine amLODIPine No amLODIPine Besylate 5 Besylate 5 Besylate 5 MG MG MG OneTouch OneTouch No OneTouch Ultra - Ultra - Ultra - Diclofenac Diclofenac No Diclofenac Sodium 75 Sodium 75 Sodium 75 MG MG MG Dexcom G6 Dexcom G6 No Dexcom G6 Transmitter Transmitter Transmitte - - r - Dexcom G6 Dexcom G6 No Dexcom G6 Sensor - Sensor - Sensor - Plavix 75 Plavix 75 No 1{table QD Plavix 75 MG MG t} MG Dexcom G6 Dexcom G6 No Dexcom G6 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 - OneTouch OneTouch Yes Michael USE TO Com mon Ultra Test Ultra Test [place] CHECK S pirit BLOOD - CHI SUGAR FOUR TIMES [facility] Amlodipine Amlodipine Yes Michael TAKE 1 Common Besylate Besylate [place] TABLET BY S pirit MOUTH ONCE - CHI A DAY [facility] Hydrochloro Hydrochloro Yes Michael TAKE 1 Common thiazide thiazide [place] TABLET BY S pirit MOUTH ONCE - CHI A DAY IN [facility] Neurontin Neurontin Yes Michael 1 tablet Common [place] [facility] Novolin N Novolin N Yes Michael 50 units Common [place] [facility] Escitalopra Escitalopra Yes Michael 1 tablet Common m Oxalate m Oxalate [place] Spir it - [facility] Coreg Coreg Yes Michael 1 tablet Common [place] [facility] NovoLog NovoLog Yes Michael sliding Comm on [place] scale 36 Spirit units - [facility] OneTouch OneTouch Yes Michael TEST BLOOD Common Ultra Test Ultra Test [place] GLUCOSE Spirit FOUR TIMES - CHI A DAY [facility] ProAir HFA ProAir HFA Yes Michael 2 puffs as Common [place] needed [facility] Lipitor Lipitor Yes Michael 1 tablet Com mon [place] [facility] Gabapentin Gabapentin Yes Michael 1 tablet Common [place] [facility] Furosemide Furosemide Yes Michael 1 tablet Common [place] [facility] Lisinopril Lisinopril Yes Michael TAKE 1 Common [place] TABLET BY Spirit MOUTH ONCE - CHI A DAY [facility] Lexapro Lexapro Yes Michael TAKE 1 Commo n [place] TABLET BY Spirit MOUTH ONCE - CHI DAILY [facility] Plavix Plavix Yes Michael TAKE 1 Common [place] TABLET BY Spirit MOUTH ONCE - CHI DAILY [facility] Plavix Plavix Yes Michael 1 tablet Commo n [place] [facility] Furosemide Furosemide No Furosemide 80 MG [...] Dexcom G6 Dexcom G6 No Dexcom G6 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 - Dexcom G6 Dexcom G6 No Dexcom [...] Dexcom G6 Dexcom G6 No Dexcom G6 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 - Dexcom G6 Dexcom G6 No Dexcom [...] Dexcom G6 Dexcom G6 No Dexcom G6 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 - Dexcom G6 Dexcom G6 No Dexcom [...] Dexcom G6 Dexcom G6 No Dexcom G6 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 - Dexcom G6 Dexcom G6 No Dexcom [...] Dexcom G6 Dexcom G6 No Dexcom G6 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 - Dexcom G6 Dexcom G6 No Dexcom [...] Dexcom G6 Dexcom G6 No Dexcom G6 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 - Dexcom G6 Dexcom G6 No Dexcom [...] Dexcom G6 Dexcom G6 No Dexcom G6 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 - Carvedilol Carvedilol No Carvedilol 12.5 MG [...] Dexcom G6 Dexcom G6 No Dexcom G6 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 80 Lipitor 80 No 1{table [...] Dexcom G6 Dexcom G6 No Dexcom G6 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 80 Lipitor 80 No 1{table [...] Dexcom G6 Dexcom G6 No Dexcom G6 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 80 Lipitor 80 No 1{table QD Lipitor 80 MG MG t} MG traMADol traMADol No 1{table BID traMADol HCl 50 MG HCl 50 MG t_as_ne HCl 50 MG eded} Neurontin Neurontin No 1{table QD Neurontin 600 MG 600 MG t} 600 MG HumuLIN HumuLIN No HumuLIN 70/30 70/30 70/30 (70-30) 100 (70-30) 100 (70-30) UNIT/ML UNIT/ML 100 UNIT/ML Escitalopra Escitalopra No 1{table QD Escitalopr m Oxalate m Oxalate t} am Oxalate 20 MG 20 MG 20 MG Carvedilol Carvedilol No Carvedilol 12.5 MG 12.5 MG 12.5 MG traZODone traZODone No traZODone HCl 100 MG HCl 100 MG HCl 100 MG Lexapro 20 Lexapro 20 No Lexapro 20 MG MG MG HumuLIN R HumuLIN R No TID HumuLIN R 100 UNIT/ML 100 UNIT/ML 100 UNIT/ML Clopidogrel Clopidogrel No Clopidogre Bisulfate Bisulfate l 75 MG 75 MG Bisulfate 75 MG traZODone traZODone No 1{table QD traZODone HCl 100 MG HCl 100 MG t_at_be HCl 100 MG dtime} Tylenol 8 Tylenol 8 No 2{table TID Tylenol 8 Hour 650 MG Hour 650 MG ts_as_n Hour 650 eeded} MG Furosemide Furosemide No 1{table BID Furosemide 80 MG 80 MG t} 80 MG OneTouch OneTouch No OneTouch Ultra Test Ultra Test Ultra Test - - - HYDROcodone HYDROcodone No 1{table QID HYDROcodon -Acetaminop -Acetaminop t_as_ne e-Acetamin hen 7.5-325 hen 7.5-325 eded} ophen MG MG 7.5-325 MG Escitalopra Escitalopra No Escitalopr m Oxalate m Oxalate am Oxalate 20 MG 20 MG 20 MG Atorvastati Atorvastati No Atorvastat n Calcium n Calcium in Calcium 80 MG 80 MG 80 MG OneTouch OneTouch No QID OneTouch Ultra Test Ultra Test Ultra Test - - - HumuLIN HumuLIN No BID HumuLIN 70/30 70/30 70/30 (70-30) 100 (70-30) 100 (70-30) UNIT/ML UNIT/ML 100 UNIT/ML Gabapentin Gabapentin No Gabapentin 600 MG 600 MG 600 MG ProAir HFA ProAir HFA No 2{puffs QID ProAir HFA 108 (90 108 (90 _as_nee 108 (90 Base) Base) ded} Base) MCG/ACT MCG/ACT MCG/ACT Lipitor 80 Lipitor 80 No 1{table QD Lipitor 80 MG MG t} MG OneTouch OneTouch No [...] QD Lipitor 80 MG MG t} MG Cyclobenzap Cyclobenzap No Cyclobenza rine HCl 10 rine HCl 10 adán HCl MG MG 10 MG Dexcom G6 Dexcom G6 No Dexcom G6 Sensor - Sensor - Sensor - amLODIPine amLODIPine No amLODIPine Besylate 5 Besylate 5 Besylate 5 MG MG MG Dexcom G6 Dexcom G6 No Dexcom G6 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 - traMADol traMADol No 1{table BID traMADol HCl 50 MG HCl 50 MG t_as_ne HCl 50 MG eded} Plavix 75 Plavix 75 No 1{table QD Plavix 75 MG MG t} MG Coreg 12.5 Coreg 12.5 No 1{table BID Coreg 12.5 MG MG t} MG Neurontin Neurontin No 1{table QD Neurontin 600 MG 600 MG t} 600 MG HumuLIN HumuLIN No HumuLIN 70/30 70/30 70/30 (70-30) 100 (70-30) 100 (70-30) UNIT/ML UNIT/ML 100 UNIT/ML Escitalopra Escitalopra No 1{table QD Escitalopr m Oxalate m Oxalate t} am Oxalate 20 MG 20 MG 20 MG Carvedilol Carvedilol No Carvedilol 12.5 MG 12.5 MG 12.5 MG traZODone traZODone No traZODone HCl 100 MG HCl 100 MG HCl 100 MG Lexapro 20 Lexapro 20 No Lexapro 20 MG MG MG HumuLIN R HumuLIN R No TID HumuLIN R 100 UNIT/ML 100 UNIT/ML 100 UNIT/ML Clopidogrel Clopidogrel No Clopidogre Bisulfate Bisulfate l 75 MG 75 MG Bisulfate 75 MG traZODone traZODone No 1{table QD traZODone HCl 100 MG HCl 100 MG t_at_be HCl 100 MG dtime} Tylenol 8 Tylenol 8 No 2{table TID Tylenol 8 Hour 650 MG Hour 650 MG ts_as_n Hour 650 eeded} MG Furosemide Furosemide No 1{table BID Furosemide 80 MG 80 MG t} 80 MG OneTouch OneTouch No OneTouch Ultra Test Ultra Test Ultra Test - - - HYDROcodone HYDROcodone No 1{table QID HYDROcodon -Acetaminop -Acetaminop t_as_ne e-Acetamin hen 7.5-325 hen 7.5-325 eded} ophen MG MG 7.5-325 MG Escitalopra Escitalopra No Escitalopr m Oxalate m Oxalate am Oxalate 20 MG 20 MG 20 MG Atorvastati Atorvastati No Atorvastat n Calcium n Calcium in Calcium 80 MG 80 MG 80 MG OneTouch OneTouch No QID OneTouch Ultra Test Ultra Test Ultra Test - - - HumuLIN HumuLIN No BID HumuLIN 70/30 70/30 70/30 (70-30) 100 (70-30) 100 (70-30) UNIT/ML UNIT/ML 100 UNIT/ML Gabapentin Gabapentin No Gabapentin 600 MG 600 MG 600 MG ProAir HFA ProAir HFA No 2{puffs QID ProAir HFA 108 (90 108 (90 _as_nee 108 (90 Base) Base) ded} Base) MCG/ACT MCG/ACT MCG/ACT Lipitor 80 Lipitor 80 No 1{table QD Lipitor 80 MG MG t} MG OneTouch OneTouch No [...] QD Lipitor 80 MG MG t} MG Cyclobenzap Cyclobenzap No Cyclobenza rine HCl 10 rine HCl 10 adán HCl MG MG 10 MG Dexcom G6 Dexcom G6 No Dexcom G6 Sensor - Sensor - Sensor - amLODIPine amLODIPine No amLODIPine Besylate 5 Besylate 5 Besylate 5 MG MG MG Dexcom G6 Dexcom G6 No Dexcom G6 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 - traMADol traMADol No 1{table BID traMADol HCl 50 MG HCl 50 MG t_as_ne HCl 50 MG eded} Plavix 75 Plavix 75 No 1{table QD Plavix 75 MG MG t} MG Coreg 12.5 Coreg 12.5 No 1{table BID Coreg 12.5 MG MG t} MG Neurontin Neurontin No 1{table QD Neurontin 600 MG 600 MG t} 600 MG amLODIPine amLODIPine No amLODIPine Besylate 5 Besylate 5 Besylate 5 MG MG MG Lexapro 20 Lexapro 20 No Lexapro 20 MG MG MG Cyclobenzap Cyclobenzap No Cyclobenza rine HCl 10 rine HCl 10 adán HCl MG MG 10 MG OneTouch OneTouch No OneTouch Ultra - Ultra - Ultra - HumuLIN HumuLIN No HumuLIN 70/30 70/30 70/30 (70-30) 100 (70-30) 100 (70-30) UNIT/ML UNIT/ML 100 UNIT/ML Lipitor 80 Lipitor 80 No 1{table QD Lipitor 80 MG MG t} MG HYDROcodone HYDROcodone No 1{table QID HYDROcodon -Acetaminop -Acetaminop t_as_ne e-Acetamin hen 7.5-325 hen 7.5-325 eded} ophen MG MG 7.5-325 MG traZODone traZODone No traZODone HCl 100 MG HCl 100 MG HCl 100 MG OneTouch OneTouch No OneTouch Ultra Test Ultra Test Ultra Test - - - Carvedilol Carvedilol No Carvedilol 12.5 MG 12.5 MG 12.5 MG traZODone traZODone No 1{table QD traZODone HCl 100 MG HCl 100 MG t_at_be HCl 100 MG dtime} HumuLIN R HumuLIN R No TID HumuLIN R 100 UNIT/ML 100 UNIT/ML 100 UNIT/ML Furosemide Furosemide No 1{table BID Furosemide 80 MG 80 MG t} 80 MG Tylenol 8 Tylenol 8 No 2{table TID Tylenol 8 Hour 650 MG Hour 650 MG ts_as_n Hour 650 eeded} MG OneTouch OneTouch No QID OneTouch Ultra Test Ultra Test Ultra Test - - - HumuLIN HumuLIN No BID HumuLIN 70/30 70/30 70/30 (70-30) 100 (70-30) 100 (70-30) UNIT/ML UNIT/ML 100 UNIT/ML ProAir HFA ProAir HFA No 2{puffs QID ProAir HFA 108 (90 108 (90 _as_nee 108 (90 Base) Base) ded} Base) MCG/ACT MCG/ACT MCG/ACT Escitalopra Escitalopra No 1{table QD Escitalopr m Oxalate m Oxalate t} am Oxalate 20 MG 20 MG 20 MG Coreg 12.5 Coreg 12.5 No 1{table BID Coreg 12.5 MG MG t} MG Atorvastati Atorvastati No Atorvastat n Calcium n Calcium in Calcium 80 MG 80 MG 80 MG Diclofenac Diclofenac No Diclofenac Sodium 75 Sodium 75 Sodium 75 MG MG MG Plavix 75 Plavix 75 No 1{table QD Plavix 75 MG MG t} MG Clopidogrel Clopidogrel No Clopidogre Bisulfate Bisulfate l 75 MG 75 MG Bisulfate 75 MG hydrOXYzine hydrOXYzine No 1{table QID hydrOXYzin HCl 10 MG HCl 10 MG t_as_ne e HCl 10 eded} MG Escitalopra Escitalopra No Escitalopr m Oxalate m Oxalate am Oxalate 20 MG 20 MG 20 MG Dexcom G6 Dexcom G6 No Dexcom G6 Sensor - Sensor - Sensor - Immunizations Ordered Immunization Filled Immunization Date Status Commen ts Source Name Name [place] [id number] 2021-05-21 Completed [facility] (Low Dose Vaccine (Low Dose 15:39:[facility] [address] [facility] (Low Dose Vaccine (Low Dose 15:39:[facility] [address] [facility] Com[facility] (Low Dose Vaccine (Low Dose 15:39:[facility] - [facility] Booster) Booster) [facility] COVID19 [facility] [place] COVID19 2021-05-21 Completed [facility] Vaccine (Low Dose Vaccine (Low Dose 15:39:00 - [facility] Booster) Booster) [facility] [address] COVID19 2021-05-21 Completed [facility] Vaccine (Low Dose Vaccine (Low Dose 15:39:00 - [facility] Booster) Booster) [facility] [address] COVID19 2021-05-21 Completed [facility] Vaccine (Low Dose Vaccine (Low Dose 15:39:00 - [facility] Booster) Booster) [facility] [address] COVID19 2021-05-21 Completed [facility] Vaccine (Low Dose Vaccine (Low Dose 15:39:00 - [facility] Booster) Booster) [facility] [address] [facility] Com[facility] (Low Dose Vaccine (Low Dose 15:39:00 - [facility] Booster) Booster) [facility] [address] COVID19 2021-05-21 Completed [facility] Vaccine (Low Dose Vaccine (Low Dose 15:39:00 - [facility] Booster) Booster) [facility] [address] COVID19 2021-05-21 Completed [facility] Vaccine (Low Dose Vaccine (Low Dose 15:39:00 - [facility] Booster) Booster) [facility] [address] COVID19 2021-05-21 Completed [facility] Vaccine (Low Dose Vaccine (Low Dose 15:39:00 - [facility] Booster) Booster) [facility] [address] COVID19 2021-05-21 Completed [facility] Vaccine (Low Dose Vaccine (Low Dose 15:39:00 - [facility] Booster) Booster) [facility] [address] COVID19 2021-05-21 Completed [facility] Vaccine (Low Dose Vaccine (Low Dose 15:39:00 - [facility] Booster) Booster) [facility] COVID-19 Moderna COVID-19 2021-05-21 Completed [facility] Vaccine (Low Dose Vaccine (Low Dose 15:39:00 [facility] Booster) Booster) [facility] COVID-19 Vaccine COVID-19 Vaccine 2020-08-28 Completed [facility] (Aidan) (Aidan) 14:58:00 [facility] COVID-19 Vaccine COVID-19 Vaccine 2020-08-28 Completed [facility] (Aidan) (Aidan) 14:58:00 [facility] COVID-19 Vaccine COVID-19 Vaccine 2020-08-28 Completed [facility] (Aidan) (Aidan) 14:58:00 [facility] COVID-19 Vaccine COVID-19 Vaccine 2020-08-28 Completed [facility] (Aidan) (Aidan) 14:58:00 [facility] COVID-19 Vaccine COVID-19 Vaccine 2020-08-28 Completed [facility] (Aidan) (Aidan) 14:58:00 [facility] COVID-19 Vaccine COVID-19 Vaccine 2020-08-28 Completed [facility] (Aidan) (Aidan) 14:58:00 [facility] COVID-19 Vaccine COVID-19 Vaccine 2020-08-28 Completed [facility] (Aidan) (Aidan) 14:58:00 [facility] COVID-19 Vaccine COVID-19 Vaccine 2020-08-28 [facility]pleted [facility] ([facility]) 14:58:00 [facility] COVID-19 Vaccine COVID-19 Vaccine 2020-08-28 Completed [facility] ([facility]) 14:58:00 [facility] COVID-19 Vaccine COVID-19 Vaccine 2020-08-28 Completed [facility] ([facility]idan) 14:58:00 [facility] COVID-19 Vaccine COVID-19 Vaccine 2020-08-28 Completed [facility] ([facility]) 14:58:00 [facility] COVID-19 Vaccine COVID-19 Vaccine 2020-08-28 Completed [facility] ([facility]idan) 14:58:00 - [facility] COVID-19 Vaccine COVID-19 Vaccine 2020-08-28 Completed [facility] (Aidan) 14:58:00 - [facility] COVID-19 Vaccine COVID-19 Vaccine 2020-08-28 Completed [facility] (Aidan) 14:58:00 - [facility] Vital Signs Vital Name Observation Time Observation Value Comments Source Systolic blood 2022-10-05 14:32:00 94 mm[Hg] [facility] Diastolic blood 2022-10-05 14:32:00 54 mm[Hg] [facility] Heart rate 2022-10-05 14:32:00 62 /min [facility] acute hospital Body height 2022-10-05 14:32:00 180.3 cm [facility] acute hospital Body weight 2022-10-05 14:32:00 127.914 kg General acute hospital BMI 2022-10-05 14:32:00 39.33 kg/m2 General acute hospital Oxygen saturation in 2022-10-05 14:32:00 97 /min [facility] Arterial blood by [facility] Pulse oximetry Branch height 2022-05-27 14:00:00 71 [in_i] [facility] weight 2022-05-27 14:00:00 271.4 [lb_av] [facility] temperature 2022-05-27 14:00:00 97.9 [degF] [facility] bmi 2022-05-27 14:00:00 37.85 kg/m2 [facility] blood pressure 2022-05-27 14:00:00 128 mm[Hg] Common [facility] - systolic [facility] blood pressure 2022-05-27 14:00:00 76 mm[Hg] Common [facility] - diastolic [facility] height 2022-05-25 15:30:00 71 [in_i] [facility] weight 2022-05-25 15:30:00 271.1 [lb_av] Common [facility] temperature 2022-05-25 15:30:00 97.6 [degF] [facility] 2022-05-25 15:30:00 37.81 kg/m2 Common S [facility] oximetry 2022-05-25 15:30:00 97 % Common S [facility] respiratory rate 2022-05-25 15:30:00 17 /min Comm on [facility] blood pressure 2022-05-25 15:30:00 139 mm[Hg] Common [facility] - systolic [facility] blood pressure 2022-05-25 15:30:00 65 mm[Hg] Common [facility] - diastolic [facility] height 2022-03-19 15:00:00 71 [in_i] [facility] weight 2022-03-19 15:00:00 272.6 [lb_av] [facility] temperature 2022-03-19 15:00:00 97.6 [degF] Common [facility] bmi 2022-03-19 15:00:00 38.02 kg/m2 [facility] oximetry 2022-03-19 15:00:00 95 % [facility] S [facility] respiratory rate 2022-03-19 15:00:00 16 /min Comm on [facility] blood pressure 2022-03-19 15:00:00 129 mm[Hg] Common [facility] systolic [facility] blood pressure 2022-03-19 15:00:00 74 mm[Hg] Common [facility] diastolic [facility] Procedures Procedure Date / Time Performed Performing Clinician [facility] e REFERRAL- 2022-09-29 05:01:00 Doctor Unassigned, No [facility] [place] REQUEST/RESPONSE Name Medical Branch REFERRAL- 2020-12-09 05:01:00 Doctor Unassigned, No [facility] [place] REQUEST/RESPONSE Name Medical Branch MR ORBIT W WO CONTRAST 2020-04-11 17:19:58 Requisition, Paper [facility] MR BRAIN W WO CONTRAST 2020-04-11 17:18:18 [facility] 2020-04-11 15:07:27 Doctor Unassigned, No [facility] Branch Encounters Start End Encounter Admission Attending Care Care Encounter Source Date/Time Date/Time Type Type Clinicians Facility Department ID 2022-08-21 Outpatient Grullon, STLMLC STLC [id number] Common 08:13:00 Michael [id number] [facility] 2022-08-20 Outpatient Grullon, STLMLC STLMLC [id number] Common 15:42:00 Michael [id number] [facility] 2022-05-27 Outpatient Grullon, STLMLC STLC [id number] Common 13:34:01 Michael [id number] [facility] 2022-05-21 Outpatient Grullon, STLMLC STLC [id number] Common 14:12:00 Michael [id number] [facility] 2022-04-28 Outpatient Grullon, STLMLC STLMLC [id number] Common 15:58:01 Michael [id number] [facility] 2022-04-20 Outpatient Grullon, STLMLC STLMLC [id number] Common 12:08:00 Michael [facility] 2022-04-09 Outpatient Grullon, STLMLC STLMLC [id number] Common 09:12:00 Michael [facility] 2022-03-23 Outpatient Grullon, STLMLC STLMLC [id number] Common 07:50:00 Michael [id number] [facility] 2021-12-18 Outpatient Grullon, STLMLC STLMLC [id number] Common 08:02:00 Michael [facility] 2021-08-11 Outpatient Grullon, STLMLC STLMLC [id number] Common 16:05:00 Michael [facility] 2021-07-14 Outpatient Grullon, STLMLC STLMLC [id number] Common 13:55:00 Michael [facility] 2021-07-09 Outpatient Grullon, STLMLC STLC [id number] Common 14:23:13 Michael [id number] [facility] 2021-07-09 Outpatient Grullon, STLMLC STLMLC [id number] Common 14:22:30 Michael [id number] [facility] 2021-07-09 Outpatient Grullon, STLMLC STLMLC [id number] Common 13:29:39 Michael [id number] [facility] 2021-07-09 Outpatient Grullon, STLMLC STLC [id number] Common 13:26:23 Michael [id number] [facility] 2021-07-09 Outpatient Grullon, STLMLC STLC [id number] Common 13:17:32 Michael [id number] [facility] 2021-07-09 Outpatient Grullon, STLMLC STLC [id number] Common 13:06:07 Michael [id number] [facility] 2021-07-09 Outpatient Grullon, STLMLC STLC [id number] Common 13:02:38 Michael [id number] [facility] 2021-07-09 Outpatient Grullon, STLMLC STLC Common 13:01:30 Michael [id number] [facility] 2021-07-09 Outpatient Grullon, STLMLC STLC Common 12:41:52 Michael [id number] [facility] 2021-07-09 Outpatient Grullon, STLMLC STLC Common 12:41:22 Michael [id number] [facility] 2021-07-09 Outpatient Grullon, STLMLC STLC [id number] Common 12:40:21 Michael [id number] [facility] 2021-07-09 Outpatient Grullon, STLMLC STLC [id number] Common 12:09:50 Michael [id number] [facility] 2021-07-09 Outpatient Grullon, STLMLC STLC [id number] Common 12:08:25 Michael [id number] [facility] 2021-07-09 [facility] [id number] Common 12:07:24 Michael [id number] [facility] 2021-07-09 [facility] [id number] Common 11:39:10 Michael [id number] [facility] 2021-07-09 Outpatient [facility]ull[facility], [facility] [id number] Common 11:27:55 Michael [id number] [facility] 2021-07-09 Outpatient Grullon, [facility] [id number] Common 11:20:48 Michael [id number] [facility] 2021-07-09 Outpatient [place], [facility] [id number] Common 11:15:28 Michael [id number] [facility] 2022-12-14 2022-12-14 Outpatient ALEJO SCHAEFER [facility] [id number] Univers 15:40:00 15:40:00 CARITO ALEJO [facility] 2022-11-10 2022-11-10 Telephone Carito [facility] [id number] [id number] Univers 00:00:00 00:00:00 [facility] [id number] [facility] [id number] Nolan as AIDAN?BLEA [phone] [address] MEDICAL OFFICE [facility] 2022-10-05 2022-10-05 Outpatient ALEJO SCHAEFER [facility] [id number] Univers 09:20:00 10:23:04 ALEJO ARZATE [facility] 2022-10-05 2022-10-05 Office Carito [facility] [id number] [facility] 09:20:00 10:23:04 Visit [facility] [id number] [facility] [id number] Nolan as AIDAN?BLEA [phone] [address] MEDICAL OFFICE BUILDING 2022-09-29 2022-09-29 Orders Doctor RIVAS [id number] Univers 00:00:00 00:00:00 Only Unassigned, KAMALJIT [id number] ity of [place] [facility] [id number] Nolan as [phone] [place] [address] Branch 2022-07-22 2022-07-22 Outpatient [facility] [id number] [facility] 05:25:00 05:25:00 Keyur 26 [facility] 2022-07-22 2022-07-22 (TEL) STLMLC STLMLC [id number] [facility] 00:00:00 00:00:00 [facility] 2022-07-13 2022-07-13 (TEL) STLMLC STLMLC [id number] Co [facility]mon 00:00:00 00:00:00 [facility] 2022-06-30 2022-06-30 (TEL) STLMLC STLMLC [id number] Co mmon 00:00:00 00:00:00 [facility] 2022-06-24 2022-06-24 (TEL) STLMLC STLMLC [id number] Co [facility]mon 00:00:00 00:00:00 [facility] 2022-06-16 2022-06-16 (TEL) STLMLC STLMLC [id number] Co mmon 00:00:00 00:00:00 [facility] 2022-06-02 2022-06-02 (TEL) STLMLC STLMLC [id number] Co mmon 00:00:00 00:00:00 [facility] 2022-05-27 2022-05-27 OFFICE STLMLC STLMLC [id number] Co mmon 00:00:00 00:00:00 VISIT EST Spir it PT LEVEL 3 - [facility] 2022-05-25 2022-05-25 OFFICE STLMLC STLMLC [id number] Co mmon 00:00:00 00:00:00 VISIT Spirit ESTAB PT - CHI LEVEL 4 [facility] 2022-04-28 2022-04-28 (TEL) STLMLC STLMLC [id number] Co mmon 00:00:00 00:00:00 [facility] 2022-04-09 2022-04-09 (TEL) STLMLC STLMLC [id number] Co mmon 00:00:00 00:00:00 [facility] 2022-04-09 2022-04-09 (TEL) STLMLC STLMLC [id number] Co mmon 00:00:00 00:00:00 [facility] 2022-04-06 2022-04-06 (TEL) STLMLC STLMLC [id number] Co mmon 00:00:00 00:00:00 [facility] 2022-03-27 2022-03-27 (TEL) STLMLC STLMLC [id number] Co mmon 00:00:00 00:00:00 [facility] 2022-03-19 2022-03-19 OFFICE STLMLC STLMLC [id number] Co mmon 00:00:00 00:00:[address] 2021-12-31 2021-12-31 ambulatory STLMLC STLMLC [id number] Common 00:00:00 00:00:00 [facility] 2021-12-31 2021-12-31 ambulatory STLMLC STLMLC [id number] Common 00:00:00 00:00:00 [facility] 2021-12-23 2021-12-23 ambulatory STLMLC STLMLC [id number] Common 00:00:00 00:00:00 [facility] 2021-12-22 2021-12-22 ambulatory STLMLC STLMLC [id number] Common 00:00:00 00:00:00 [facility] 2021-12-17 2021-12-17 ambulatory STLMLC STLMLC [id number] Common 00:00:00 00:00:00 [facility] 2021-11-21 2021-11-21 ambulatory STLMLC STLMLC [id number] Common 00:00:00 00:00:00 [facility] 2021-09-03 2021-09-03 ambulatory STLMLC STLMLC [id number] Common 00:00:00 00:00:00 [facility] 2021-09-03 2021-09-03 ambulatory STLMLC STLMLC [id number] Common 00:00:00 00:00:00 [facility] 2021-07-14 2021-07-14 ambulatory STLMLC STLMLC [id number] Common 00:00:00 00:00:00 [facility] 2021-07-07 2021-07-07 ambulatory STLMLC STLMLC [id number] Common 00:00:00 00:00:00 [facility] 2021-06-10 2021-06-10 ambulatory STLMLC STLMLC [id number] Common 00:00:00 00:00:00 [facility] 2021-05-21 2021-05-21 ambulatory STLMLC STLMLC [id number] Common 00:00:00 00:00:00 [facility] 2021-05-21 2021-05-21 ambulatory STLMLC STLMLC [id number] Common 00:00:00 00:00:00 [facility] 2021-05-14 2021-05-14 ambulatory STLMLC STLMLC [id number] Common 00:00:00 00:00:00 [facility] 2021-05-12 2021-05-12 ambulatory STLMLC STLMLC [id number] Common 00:00:00 00:00:00 [facility] 2021-04-07 2021-04-07 ambulatory STLMLC STLMLC [id number] Common 00:00:00 00:00:00 [facility] 2021-03-18 2021-03-18 Outpatient STLMLC STLMLC [id number] Common 00:00:00 00:00:00 [facility] 2021-03-17 2021-03-17 Outpatient STLMLC STLMLC [id number] Common 00:00:00 00:00:00 [facility] 2021-01-16 2021-01-16 EVELYN Anna [id number] Univers 00:00:00 00:00:00 (Out) Michael M KAMALJIT [id number] i ty of [id number] Nolan as [phone] [facility] 043 Branch 2021-01-15 2021-01-15 Outpatient STLMLC STLMLC [id number] Common 00:00:00 00:00:00 [facility] 2021-01-15 2021-01-15 Outpatient STLMLC STLMLC [id number] Common 00:00:00 00:00:00 [facility] 2021-01-15 2021-01-15 Outpatient STLMLC STLMLC [id number] Common 00:00:00 00:00:00 [facility] 2021-01-14 2021-01-14 Outpatient STLMLC STLMLC [id number] Common 00:00:00 00:00:00 [facility] 2020-12-31 2020-12-31 Outpatient STLMLC STLMLC [id number] Common 00:00:00 00:00:00 [facility] 2020-12-09 2020-12-09 Orders Doctor RIVAS [id number] Univers 00:00:00 00:00:00 Only Unassigned, KAMALJIT [id number] [place] [id number] Nolan as [phone] [facility] 009 Branch 2020-12-02 2020-12-02 Outpatient STLMLC STLMLC [id number] Common 00:00:00 00:00:00 [facility] 2020-12-02 2020-12-02 Outpatient STLMLC STLMLC [id number] Common 00:00:00 00:00:00 [facility] 2020-11-18 2020-11-18 Outpatient STLMLC STLMLC [id number] Common 00:00:00 00:00:00 [facility] 2020-11-05 2020-11-05 Outpatient STLMLC STLMLC [id number] Common 00:00:00 00:00:00 [facility] 2020-11-04 2020-11-04 Outpatient STLMLC STLMLC [id number] Common 00:00:00 00:00:00 [facility] 2020-10-25 2020-10-25 Outpatient STLMLC STLMLC [id number] Common 00:00:00 00:00:00 [facility] 2020-10-16 2020-10-16 Outpatient STLMLC STLMLC [id number] Common 00:00:00 00:00:00 [facility] 2020-10-15 2020-10-15 Outpatient STLMLC STLMLC [id number] Common 00:00:00 00:00:00 [facility] 2020-10-15 2020-10-15 Outpatient STLMLC STLMLC [id number] Common 00:00:00 00:00:00 [facility] 2020-09-26 2020-09-26 Outpatient STLMLC STLMLC [id number] Common 00:00:00 00:00:00 [facility] 2020-08-28 2020-08-28 Outpatient STLMLC STLMLC [id number] Common 00:00:00 00:00:00 [facility] 2020-08-27 2020-08-27 Outpatient STLMLC STLMLC [id number] Common 00:00:00 00:00:00 [facility] 2020-05-14 2020-05-14 Outpatient STLMLC STLMLC [id number] Common 00:00:00 00:00:00 [facility] 2020-05-06 2020-05-06 Outpatient STLMLC STLMLC [id number] Common 00:00:00 00:00:00 [facility] 2020-04-11 2020-04-11 [facility] Radiology [facility] [id number] [id number] 10:11:59 23:59:00 Encounter [place] [id number] [place] [id number] [place] [id number] 2020-04-11 2020-04-11 [facility] Radiology [facility] 1.2.840.114 [id number] Univers 10:11:59 23:59:00 Encounter [place] [id number] ity of [place] [id number] [facility] [id number] [facility] 804 [place] 2020-04-11 2020-04-11 [facility] Radiology [facility] 1.2.840.114 [id number] 10:11:08 23:59:00 Encounter [place] [id number] [place] [id number] [place] [id number] 2020-04-11 2020-04-11 [facility] Radiology [facility] 1.2.840.114 [id number] Univers 10:11:08 23:59:00 Encounter [place] [id number] ity of [place] [id number] [facility] [id number] [address] 2020-04-11 2020-04-11 Outpatient R RADIOLOGY [facility] [id number] Univers 00:00:00 00:00:00 ity [facility] 2020-04-11 2020-04-11 Orders Doctor EVELYN 1.2.840.114 [id number] 00:00:00 00:00:00 Only Unassigned, KAMALJIT [id number] [place] [facility] [id number] [id number] 2020-04-11 2020-04-11 Orders Doctor EVELYN [id number] [id number] Univers 00:00:00 00:00:00 Only Unassigned, KAMALJIT [id number] ity of [place] [facility] [id number] [facility] [id number] [place] [address] Branch 2020-02-07 2020-02-07 [facility] [id number] Common 11:20:00 11:20:[address] [address] [facility] 2020-01-29 2020-01-29 [facility] [id number] Common 11:40:00 11:40:00 t MOD[facility] it Drive [facility] 2020-01-16 2020-01-16 [facility] [id number] Common 11:15:00 11:15:[address] [facility] 2019-12-04 2019-12-04 [facility] [id number] Common 10:50:00 10:50:[address] [facility] 2019-11-08 2019-11-08 [facility] [id number] Common 15:00:00 15:00:[address] [facility] 2019-11-08 2019-11-08 [facility] [id number] Common 14:15:00 14:15:[address] [facility] 2019-10-27 2019-10-27 [facility] [id number] Common 11:15:00 11:15:[address] [facility] 2019-10-24 2019-10-24 [facility] [id number] Common 16:04:00 16:04:00 t [facility] Spir it Road [facility] 2019-10-20 2019-10-20 [facility] [id number] Common 13:40:00 13:40:00 t [facility] Spir it Road [facility] 2019-10-18 2019-10-18 [facility] [id number] Common 14:05:00 14:05:[address] [facility] 2019-09-21 2019-09-21 [facility] [id number] Common 16:45:00 16:45:[address] [facility] 2019-09-05 2019-09-05 [facility] [id number] Common 10:30:00 10:30:[address] [facility] 2019-08-08 2019-08-08 [facility] [id number] Common 15:00:00 15:00:[address] [facility] 2019-07-26 2019-07-26 [facility] [id number] Common 16:37:00 16:37:[address] [facility] 2019-06-22 2019-06-22 [facility] [id number] Common 14:45:00 14:45:[address] [facility] 2019-06-19 2019-06-19 [facility] [id number] Common 15:45:00 15:45:[address] [facility] 2019-05-31 2019-05-31 [facility] [id number] Common 15:15:00 15:15:[address] [facility] 2019-05-03 2019-05-03 [facility] [id number] Common 10:37:00 10:37:[address] [facility] 2019-04-17 2019-04-17 [facility] [id number] Common 14:08:00 14:08:[address] [facility] 2019-04-17 2019-04-17 [facility] [id number] Common 13:30:00 13:30:[address] [facility] 2019-03-28 2019-03-28 [facility] [id number] Common 14:44:00 14:44:[address] [facility] 2019-03-23 2019-03-23 [facility] [id number] Common 14:15:00 14:15:[address] [facility] 2019-03-02 2019-03-02 [facility] [id number] Common 15:10:00 15:10:[address] [facility] 2019-02-23 2019-02-23 [facility] [id number] Common 10:00:00 10:00:[address] [facility] 2019-01-20 2019-01-20 [facility] [id number] Common 13:43:00 13:43:[address] [facility] 2018-12-29 2018-12-29 [facility] [id number] Common 14:42:00 14:42:[address] [facility] 2018-12-21 2018-12-21 [facility] [id number] Common 14:30:00 14:30:[address] [facility] 2018-12-06 2018-12-06 [facility] [id number] Common 14:04:00 14:04:[address] [facility] 2018-10-10 2018-10-10 [facility] [id number] Common 15:00:00 15:00:[address] [facility] 2018-09-16 2018-09-16 [facility] [id number] Common 11:25:00 11:25:[address] [facility] 2018-09-12 2018-09-12 [facility] [id number] Common 14:15:00 14:15:[address] [facility] 2018-08-11 2018-08-11 [facility] [id number] Common 13:45:00 13:45:[address] [facility] 2018-06-21 2018-06-21 [facility] [id number] Common 10:15:00 10:15:[address] [facility] 2018-05-30 2018-05-30 [facility] [id number] Common 10:28:00 10:28:[address] [facility] 2018-03-16 2018-03-16 [facility] [id number] Common 15:07:00 15:07:[address] [facility] 2018-03-14 2018-03-14 [facility] [id number] Common 15:00:00 15:00:[address] [facility] 2018-02-28 2018-02-28 [facility] [id number] Common 16:46:00 16:46:[address] [facility] 2018-02-11 2018-02-11 [facility] [id number] Common 09:17:00 09:17:[address] [facility] 2018-02-04 2018-02-04 [facility] [id number] Common 14:14:00 14:14:[address] [facility] 2018 2018 Out[facility] [id number] Common 15:57:00 15:57:[address] [facility] 2018-01-12 2018-01-12 [facility] [id number] Common 14:34:00 14:34:[address] [facility] 2018-01-10 2018-01-10 [facility] [id number] Common 15:15:00 15:15:[address] [facility] 2017-11-22 2017-11-22 [facility] [id number] Common 09:36:00 09:36:[address] [facility] 2017-11-10 2017-11-10 [facility] [id number] Common 13:30:00 13:30:[address] Spir it [facility] 2017-09-29 2017-09-29 Outpatient Angel [place] [id number] Common 13:00:00 13:00:00 [employer] it [facility] Results Test Description Test Time Test Comments Results Result Comments Source GLUCOSE BEDSIDE 2022-07-22 16:51:00 Test Item Value Reference Range Interpretation Comme nts GLUCOSE BEDSIDE (test code = 314 MG/DL 70-110 H Performed by certified rail transit operator at [facility]) [facility] GLUCOSE [id number] 15:39:00 Test Item Value Reference Range Interpretation Comments GLUCOSE BEDSIDE (test 308 MG/DL 70-110 H Perfor med by certified code = GLUBED) rail transit operator at [facility] GLUCOSE [id number] 14:43:00 Test Item Value Reference Range Interpretation Comments GLUCOSE BEDSIDE (test 371 MG/DL 70-110 H Perfor med by certified code = GLUBED) rail transit operator at [facility] GLUCOSE [id number] 13:47:00 Test Item Value Reference Range Interpretation Comments GLUCOSE BEDSIDE (test 379 MG/DL 70-110 H Perfor med by certified code = GLUBED) rail transit operator at [facility] GLUCOSE [id number] 12:54:00 Test Item Value Reference Range Interpretation Comments GLUCOSE BEDSIDE (test 391 MG/DL 70-110 H Perfor med by certified code = GLUBED) rail transit operator at [facility] [id number] 12:19:00 Test Item Value Reference Range Interpretation Comments ACT-ISTAT (test code 311 SEC 74-137 H Perform ed by certified = ACTI) rail transit operator at [facility] GLUCOSE [id number] 11:27:00 Test Item Value Reference Range Interpretation Comments GLUCOSE BEDSIDE (test 325 MG/DL 70-110 H Perfor med by certified code = GLUBED) rail transit operator at [facility] BASIC METABOLIC [id number] 15:15:00 Test Item Value Reference Range Interpretation Comments SODIUM (test code = 141 mEq/L 134-147 N NA) POTASSIUM (test code 3.6 mEq/L 3.4-5.0 N = K) CHLORIDE (test code 99 mEq/L 100-108 L = CL) CARBON DIOXIDE (test 36 mEq/l 21-33 H code = CO2) ANION GAP (test code 10 0-20 N = GAP) GLUCOSE (test code = 49 mg/dL 70-110 L GLU) BLOOD UREA NITROGEN 16 mg/dL 7-18 N (test code = BUN) GLOMERULAR 77.3 90-95 L The Glomerular FILTRATION RATE Filtration R ate is a (test code = GFR) calculated parameterbased on serum Creatinine, pat ient age and sex. GFR va luesless than 60 mL/min/ 1.73 square meters a re indicative ofCh ronic Kidney Disease. Values less than 15 mL/min/1.73squa re meters indicate Kidney failure. The calculation forGFR is based on the CKD-EPI (2020) calculat ion. This formulais race indifferent and is the recommended for moreno for GFRby the Natio nal Kidney Foundati on for Adults.The GFR will not calculate if th e sex is unknown or if thepatient's ag e is <18 years. CREATININE (test 1.1 mg/dL 0.6-1.3 N code = CREAT) CALCIUM (test code = 9.3 mg/dL 8.0-10.5 N CA) PROTHROMBIN [id number] 15:09:00 Test Item Value Reference Range Interpretation Comments PROTHROMBIN TIME 12.0 SECONDS 9.3-12.9 N PATIENT (test code = PTP) INTERNATIONAL NORMAL 1.1 0.8-1.2 N TARGET INR BY RATIO (test code = INDICATIO N Indication INR) INR1. Prophylax is of venous thrombos is 2.0 - 3.0 (orthoped ic surgery), Proph ylaxis of venous throm bosis (other than hig h-risk surgery), Treat ment of Deep Vein Thrombosis/Pulm onary Embolism, Preve ntion of systemic emb olism - Tissue heart va lves, Acute Myocardia l Infarction (to prevent systemic emboli sm), Valvular heart disease, Atrial Fibrillation, Bileaflet mecha nical valve in aortic position.2. Mec hanical prosthetic valv es (high risk), 2. 5 - 3.5 Presence of Lup us Anticoagulant o r Antiphospholipi d Antibodies, Pre vention of systemic emb olism - Acute Myocardia l Infarction (to prevent recurrent infar ct). CBC W/AUTO [id number] 15:00:00 Test Item Value Reference Range Interpretation Comments WHITE BLOOD CELL (test code = 8.9 x10 3/uL 4.5-11.0 N WBC) RED BLOOD CELL (test code = 4.81 x10 6/uL 4.00-5.60 N RBC) HEMOGLOBIN (test code = HGB) 13.8 g/dL 12.5-16.9 N HEMATOCRIT (test code = HCT) 41.5 % 37.5-50.7 N MEAN CELL VOLUME (test code = 86.3 fL 81.0-99.0 N MCV) MEAN CELL HGB (test code = MCH) 28.7 pg 27.0-33.0 N MEAN CELL HGB CONCETRATION 33.3 g/dL 33.0-37.0 N (test code = MCHC) RED CELL DISTRIBUTION WIDTH CV 12.7 % 11.5-14.5 N (test code = RDW) RED CELL DISTRIBUTION WIDTH SD 39.7 fL 37.0-54.0 N (test code = RDW-SD) PLATELET COUNT (test code = 349 x10 3/uL 150-400 N PLT) MEAN PLATELET VOLUME (test code 9.0 fL 7.0-9.0 N = MPV) NEUTROPHIL % (test code = NT%) 57.3 % 56.0-77.0 N IMMATURE GRANULOCYTE % (test 0.2 % 0.0-2.0 N code = IG%) LYMPHOCYTE % (test code = LY%) 28.0 % 14.0-32.0 N MONOCYTE % (test code = MO%) 10.2 % 4.8-9.0 H EOSINOPHIL % (test code = EO%) 3.6 % 0.3-3.7 N BASOPHIL % (test code = BA%) 0.7 % 0.0-2.0 N NUCLEATED RBC % (test code = 0.0 % 0-0 N NRBC%) NEUTROPHIL # (test code = NT#) 5.07 x10 3/uL 2.0-7.6 N IMMATURE GRANULOCYTE # (test 0.02 x10 3/uL 0.00-0.03 N code = IG#) LYMPHOCYTE # (test code = LY#) 2.48 x10 3/uL 1.0-3.8 N MONOCYTE # (test code = MO#) 0.90 x10 3/uL 0.1-0.8 H EOSINOPHIL # (test code = EO#) 0.32 x10 3/uL 0.0-0.2 H BASOPHIL # (test code = BA#) 0.06 x10 3/uL 0.0-0.2 N NUCLEATED RBC # (test code = 0.00 x10 3/uL 0.0-0.1 N NRBC#) MANUAL DIFF REQUIRED (test code NO = MDIFF) - XR CHEST 2 [id number] 00:00:00 [facility] : 1965 Sex: MFAX: Keyur Henry MD [phone] [place]: St: PRE FAX: Sydni Serna Name: DEXTER WEBSTER [facility] : 1965 Age/S: 57/M [address] [place] [address] Bl Unit #: [id number] Loc: [place] [address] Phys: Sydni Serna [employer] Acct: [id number] Dis Date: Status: PRE [facility] PHONE #: [phone] Exam Date: 07/20/2022 1503 FAX #: [phone] Reason: PRE OP EXAMS: CPT CODE: [id number] XR CHEST 2 V 27498 PROCEDURE INFORMATION: Exam: XR Chest Exam date and time: 07/20/2022 3:01 PM Age: 57 years old Clinical indication: Pre-operative exam; Cardiovascular screening and respiratory screening exam; Additional info: Pre op TECHNIQUE: Imaging protocol: Radiologic exam of the chest. Views: 2 views. PA and Lateral COMPARISON: No relevant prior studies available. FINDINGS: Lungs: There are normal lung volumes without consolidation or interstitial opacities. Pleural spaces: Unremarkable. No pleural effusion.No pneumothorax. Heart/Mediastinum: The cardiac silhouette is slightly enlarged. The pulmonary vasculature is normal. The mediastinal contour is normal. The trachea is midline. Bones/joints: There are old bilateral rib fractures. IMPRESSION: No acute cardiopulmonary findings. at 1534 Reported and signed by: Tera Espinoza M.D. CC: Keyur Bonds MD; Sydni Serna NP Technologist: RT Jud(Debby) Trnscrd Date/Time/By: 07/20/2022 (406) : By: SamiaTDO Orig Print D/T: S: 07/20/2022 (7265) PAGE 1 Signed ReportMR ORBIT W WO [id number] 18:04:12 Patient motion degrades image quality, mildly limiting evaluation,particularly of the orbits. No acute intracranial or orbital abnormality is present. Questionableatrophy of the right optic nerve but e valuation is limited due to patientmotion. Remote, lacunar infarct of the right hemipons. MR BRAIN WWO CONTRAST, MR ORBIT W WO CONTRAST HISTORY: [...] is unremarkable. No orbital mass is present. [facility], Radiant Results Inft User - 04/11/2020 1:05 PM CDTMR BRAIN W WO CONTRAST, MR ORBIT W WO CONTRASTHISTORY: Male 55 yearsCOMPARISON: NoneTECHNIQUE: Multiplanar multi weighted imaging of the brain and orbits wasobtained before and following the administration of 15 mL IV P roHanceFINDINGS:MRI brain:The ventricles and cerebral sulci are normal in caliber and configuration.No hydrocephalus, midline shift or pathological extra- axial fluidcollection is present. The basal cisterns are [...] motion degrades image quality, mildly limiting evaluation,particularly ofthe orbits.No acute intracranial or orbital abnormality is present. Questionableatrophy of the rightoptic nerve but evaluation is limited due to patientmotion.Remote, lacunar infarct of the right hemipons.[facility] BRAIN W WO [id number] 18:04:12 Patient motion degrades image quality, mildly limiting evaluation,particularly of the orbits. No acute intracranial or orbital abnormality is present. Questionableatrophy of the right optic nerve but e valuation is limited due to patientmotion. Remote, lacunar infarct of the right hemipons. MR BRAIN WWO CONTRAST, MR ORBIT W WO CONTRAST HISTORY: [...] is unremarkable. No orbital mass is present. [facility], Radiant Results Inft User - 04/11/2020 1:05 PM CDTMR BRAIN W WO CONTRAST, MR ORBIT W WO CONTRASTHISTORY: Male 55 yearsCOMPARISON: NoneTECHNIQUE: Multiplanar multi weighted imaging of the brain and orbits wasobtained before and following the administration of 15 mL IV P roHanceFINDINGS:MRI brain:The ventricles and cerebral sulci are normal in caliber and configuration.No hydrocephalus, midline shift or pathological extra- axial fluidcollection is present. The basal cisterns are [...] motion degrades image quality, mildly limiting evaluation,particularly ofthe orbits.No acute intracranial or orbital abnormality is present. Questionableatrophy of the rightoptic nerve but evaluation is limited due to patientmotion.Remote, lacunar infarct of the right hemipons.[facility] Notes Date/Time Note Provider Source 2022-07-22 12:56:00-00:00 [id number] [place] [address] PATIENT NAME: DEXTER WEBSTER ADMIT DATE: 02/03 ACCOUNT NO: [id number] ROOM NO: AGE: 57 REPORT TYPE: eELECTROCARDIOGRAM REPORT SEX: M ADMITTING PHYSICIAN: ATTENDING PHYSICIAN:Keyur Bonds MD Order: [id number] Test Reason : PCI Test Date/Time Stamp: WedJul 22 2022 12:56:20 Blood Pressure : / mmHG Vent. Rate : 079 BPM Atrial Rate : 079 BPM P-R Int : 174 ms QRS Dur : 104 ms QT Int : 390 ms P-R-T Axes : 063 046 041 degree s QTc Int : 447 ms Normal sinus rhythm Nonspecific ST abnormality Abnormal ECG When compared with ECG of 20-JUL-2022 14:57, No significant change was found Confirmed by ORA JIANG MD ([id number]) on 07/24/2022 5:06:34 AM Referred By: Keyur Bonds Confirmed by:ORA ZUÑIGA MD Electronically Signed by Ora Jiang MD on 07/15 at 0506 PATIENT NAME: DEXTER WEBSTER ACCOUNT #: [id number] 2022-07-22 12:38:00-00:00 [id number] [place] [address] PATIENT NAME: DEXTER WEBSTER ADMIT DATE: 02/03 ACCOUNT NO: [id number] ROOM NO: AGE: 57 REPORT TYPE: CARDIAC CATHETERIZATION REPORT SEX: M ADMITTING PHYSICIAN: ATTENDING PHYSICIAN:Keyur Bonds MD PROCEDURE DATE: 07/22/2022 PROCEDURE PERFORMED: 1. Selective coronary angiogram. 2. PCI of severe mid RCA stenosis, used a 2.75 x 20 mm Synergy drug-eluting stent. ACCESS: Right femoral artery, 6-Bolivian closed wi th 6-Bolivian Angio-Seal. COMPLICATIONS: None. BLEEDING: Less than 20 mL. TOTAL SEDATION TIME: MAC for about 45 minutes. DESCRIPTION OF PROCEDURE: After risks, benefits and alternatives were explained, the patient agreed to proceed and sig otoniel informed consent. [facility], prepped and draped in the usual sterile fashion . Accessed right femoral artery using micropuncture kit and fluoroscopic guidance as well as ultraso und guidance and placed a 6-Bolivian Otto sheath and I took a 6-Bolivian J L4 catheter to aortic root, engaged the left main, took standard views and 6 -Bolivian JR4 guide with side holes engaged the RCA, took standard views. I th en gave systemic heparin to assure ACT level above 250 and took shor t Runthrough wire into the distal RCA. The lesion was predilated and then placed a 2.75 x 12 mm Synergy drug-eluting stent across the area of stenosis with excellent results. I removed the wire and final angiogram was satisfactory and removed the sheath and placed a 6-Bolivian Angio-Seal for clos ure with good hemostasis. The patient tolerated the procedure very well and he was already l oaded with Plavix and aspirin earlier. FINDINGS: 1. Left main: Large and normal. 2. LAD: Large patent proximal to mid LAD stent a nd then the LAD has diffuse 10% to 20% stenosis and in t he mid to distal, there is a segment of about 50% to 60% stenosis, BRIANNA-3 flow. 3. Left circumflex is very small after t he OM takeoff. There is a stent in the OM with a 50% ISR. 4. RCA, moderate sized proximal patent stent, mi d 70% to 80% stenosis, status post successful PCI as above. CONCLUSION: 1. Severe mid RCA stenosis, status post successf ul PCI as above. 2. Moderate coronary artery disease elsewhere. PATIENT NAME: DEXTER WEBSTER [id number] RECOMMENDATIONS: Aspirin, Plavix and high dose s tatin and plan for a cardiac risk factor modification. Dictated By: Keyur Bonds MD Date Dictated: 07/22/2022 12:38:06 Date Transcribed: 07/22/2022 13:20:51 /CISCO Receipt ID: [id number] Authenticated by Keyur Bonds MD On 09/16/2022 02:27:05 PM Electronically Signed by Keyur Bonds MD on at 0227 PATIENT NAME: DEXTER WEBSTER [id number] 2022-07-20 14:57:00-00:00 [id number] [place] [address] PATIENT NAME: DEXTER WEBSTER ADMIT DATE: ACCOUNT NO: [id number] ROOM NO: AGE: 57 REPORT TYPE: eELECTROCARDIOGRAM REPORT SEX: M ADMITTING PHYSICIAN: ATTENDING PHYSICIAN:Keyur Bonds MD Order: [id number] Test Reason : PREOP Test Date/Time Stamp: WedJul 20 2022 14:57:25 Blood Pressure : / mmHG Vent. Rate : 061 BPM Atrial Rate : 061 BPM P-R Int : 174 ms QRS Dur : 100 ms QT Int : 408 ms P-R-T Axes : 049 028 050 degree s QTc Int : 410 ms Normal sinus rhythm Normal ECG PRE_OP Confirmed by ULISES LÓPEZ MD ([id number]) on 3 4:30:34 PM Referred By: Keyur Bonds Confirmed by:ULISES PALACIOS MD at 1630 PATIENT NAME: DEXTER WEBSTER [id number]
[2022-11-16] MEDS ORDERED: TDAP (DIPHTH,PERTUSS(ACELL),TET VAC) 0.5 ML VIAL IMVAC ONE (10:34)
[2022-11-16 11:24] LABS: Protime INR 1.01
[2022-11-16 11:28] LABS: Absolute Lymphocytes (CBC) 1.9 K/uL (0.7-4.9); Hematocrit 33.5 % (39.6-49.0); Lymphocytes % 19.5 % (15.3-44.8); MCV 86.8 fL (80-100); MPV 7.4 fL (7.6-11.3); RBC Red Blood Cell Count 3.85 M/uL (4.33-5.43)
[2022-11-16 11:45] LABS: Albumin 3.1 g/dL (3.4-5.0); Bilirubin Total 0.2 mg/dL (0.2-1.0); Protein, Total 7.3 g/dL (6.4-8.2)
[2022-11-16 11:47] LABS: Potassium 3.7 mEq/L (3.5-5.1)
[2022-11-16 11:53] LABS: Specific Gravity 1.009 (1.005-1.030); Urine Bilirubin NEGATIVE (Negative); Urine Blood Negative (Negative); Urine Clarity Clear (Clear); Urine Color Light-Yellow (Yellow); Urine Glucose 1+ (Negative); Urine Protein NEGATIVE (Negative); Urine Urobilinogen Normal (Normal)
--- NOTE | 2022-11-16 11:55 | RAD REPORT ---
EXAM DESCRIPTION: [place] Single View11/16/2022 11:21 am CLINICAL HISTORY: Shortness of breath COMPARISON: 2021 FINDINGS: The lungs appear clear of acute infiltrate. The heart is mildly to moderate enlarged IMPRESSION: No acute abnormalities displayed
--- NOTE | 2022-11-16 12:10 | EDPHYS ---
Physician Documentation [facility] Name: Tripp Webster Age: 57 yrs Sex: Male : 1965 Arrival Date: 11/16/2022 Time: 09:55 Bed 17 Private MD: [facility] ED Physician Naveen Cunningham HPI: 11/16 10:30 This 57 yrs old Male presents to ER via Ambulatory with complaints of Fall Injury, Toe snw Injury. 10:30 Details of fall: The patient fell from an upright position, while walking. Onset: The snw symptoms/episode began/occurred acutely, 3 day(s) ago, and became persistent. Associated injuries: The patient sustained left side. Severity of symptoms: At their worst the symptoms were moderate. The patient has experienced similar episodes in the past. It is unknown whether or not the patient has recently seen a physician. Historical: - Allergies: 10:18 No Known Allergies; hb - Home Meds: 16:31 amlodipine 5 mg tab 1 tab twice a day [Active]; Aspirin Oral [Active]; atorvastatin 80 sg5 mg Oral tab 1 tab once daily [Active]; carvedilol 12.5 mg Oral tab 1 tab 2 times per day [Active]; escitalopram oxalate 20 mg Oral tab 1 tab once daily [Active]; furosemide 80 mg Oral tab 1 tab once daily [Active]; gabapentin 600 mg Oral tab 1 tab four times a day [Active]; humalin 70/30 225 units daily [Active]; hydrocodone-acetaminophen 7.5-325 mg Oral tab 1 tab twice a day [Active]; Novolin R Sub-Q [Active]; Plavix 75 mg Oral tab 1 tab twice a day [Active]; tramadol 50 mg Oral tab 1 tab twice a day [Active]; - PMHx: 10:18 depressive disorder; Hypercholesterolemia; GERD; Diabetes - IDDM; CAD; Hypertension; hb neuropathy; - PSHx: 10:18 cardiac stents; hb - Immunization history:: Adult Immunizations up to date. - Immunization history: Last tetanus immunization: < 10 years ago. - Social history:: Smoking status: Patient denies any tobacco usage or history of. ROS: 10:26 Constitutional: Negative for fever, chills, and weight loss, Eyes: Negative for injury, snw pain, redness, and discharge, ENT: Negative for injury, pain, and discharge, Neck: Negative for injury, pain, and swelling, Cardiovascular: Negative for chest pain, palpitations, and edema, Respiratory: Negative for shortness of breath, cough, wheezing, and pleuritic chest pain, Abdomen/GI: Negative for abdominal pain, nausea, vomiting, diarrhea, and constipation, Back: Negative for injury and pain, : Negative for injury, bleeding, discharge, and swelling, Neuro: Negative for headache, weakness, numbness, tingling, and seizure, Psych: Negative for depression, anxiety, suicide ideation, homicidal ideation, and hallucinations. 10:26 MS/extremity: Positive for injury or acute deformity, tenderness, of the left arm and left leg. 10:26 Skin: Positive for abrasion(s), lesions, ulceration, Donkey. Exam: 10:24 Constitutional: This is a well developed, well nourished patient who is awake, alert, snw and in no acute distress. Head/Face: Normocephalic, atraumatic. Eyes: Pupils equal round and reactive to light, extra-ocular motions intact. Lids and lashes normal. Conjunctiva and sclera are non-icteric and not injected. Cornea within normal limits. Periorbital areas with no swelling, redness, or edema. ENT: Nares patent. No nasal discharge, no septal abnormalities noted. Tympanic membranes are normal and external auditory canals are clear. Oropharynx with no redness, swelling, or masses, exudates, or evidence of obstruction, uvula midline. Mucous membranes moist. Neck: Trachea midline, no thyromegaly or masses palpated, and no cervical lymphadenopathy. Supple, full range of motion without nuchal rigidity, or vertebral point tenderness. No Meningismus. Chest/axilla: Normal chest wall appearance and motion. Nontender with no deformity. No lesions are appreciated. 10:24 Respiratory: Lungs have equal breath sounds bilaterally, clear to auscultation and percussion. No rales, rhonchi or wheezes noted. No increased work of breathing, no retractions or nasal flaring. Abdomen/GI: Soft, non-tender, with normal bowel sounds. No distension or tympany. No guarding or rebound. No evidence of tenderness throughout. Back: No spinal tenderness. No costovertebral tenderness. Full range of motion. MS/ Extremity: Pulses equal, no cyanosis. Neurovascular intact. Full, normal range of motion. Neuro: Awake and alert, GCS 15, oriented to person, place, time, and situation. Cranial nerves II-XII grossly intact. Motor strength 5/5 in all extremities. Sensory grossly intact. Cerebellar exam normal. Normal gait. Psych: Awake, alert, with orientation to person, place and time. Behavior, mood, and affect are within normal limits. 10:24 Cardiovascular: Rate: normal, Rhythm: regular, Edema: pedal edema, that is moderate. 10:24 Skin: Appearance: normal except for affected area, cellulitis, that is mild, patchy, on the lateral aspect of left calf and medial aspect of left calf, injury, avulsion(s), a small of the plantar aspect of left first toe, bite(s), superficial, of the left santoro, Donkey bite from last week. Vital Signs: 10:15 BP 150 / 53; Pulse 71; Resp 16; Temp 98.5(O); Pulse Ox 98% on R/A; Weight 127.01 kg; hb Height 5 ft. 11 in. ; Pain 8/10; 10:30 BP 127 / 55; Pulse 65; Resp 16; Pulse Ox 98% on R/A; Pain 6/10; sg5 11:00 BP 132 / 54; Pulse 64; Resp 16; Pulse Ox 98% on R/A; Pain 7/10; sg5 11:30 BP 126 / 54; Pulse 67; Resp 18; Pulse Ox 96% on R/A; Pain 7/10; sg5 12:00 BP 130 / 57; Pulse 71; Resp 16; Pulse Ox 98% on R/A; Pain 6/10; sg5 12:30 BP 143 / 62; Pulse 65; Resp 16; Pulse Ox 96% on R/A; Pain 7/10; sg5 13:00 BP 142 / 63; Pulse 61; Resp 16; Pulse Ox 96% on R/A; Pain 5/10; sg5 13:30 BP 112 / 41; Pulse 64; Resp 16; Pulse Ox 96% on R/A; Pain 5/10; sg5 14:00 BP 103 / 39; Pulse 65; Resp 16; Pulse Ox 96% on R/A; Pain 5/10; sg5 14:30 BP 114 / 36; Pulse 64; Resp 16; Pulse Ox 95% on R/A; Pain 5/10; sg5 15:00 BP 118 / 42; Pulse 62; Resp 16; Pulse Ox 98% on R/A; Pain 6/10; sg5 15:30 BP 112 / 52; Pulse 59; Resp 16; Pulse Ox 98% on R/A; Pain 6/10; sg5 16:00 BP 127 / 55; Pulse 65; Resp 16; Pulse Ox 98% on R/A; Pain 5/10; sg5 10:15 Body Mass Index 39.05 (127.01 kg, 180.34 cm) hb 10:15 Pain Scale: Adult hb 10:30 Pain Scale: Adult sg5 11:00 Pain Scale: Adult sg5 11:30 Pain Scale: Adult sg5 12:00 Pain Scale: Adult sg5 12:30 Pain Scale: Adult sg5 13:00 Pain Scale: Adult sg5 13:30 Pain Scale: Adult sg5 14:00 Pain Scale: Adult sg5 14:30 Pain Scale: Adult sg5 15:00 Pain Scale: Adult sg5 15:30 Pain Scale: Adult sg5 16:00 Pain Scale: Adult sg5 Delong Coma Score: 16:27 Eye Response: spontaneous(4). Motor Response: obeys commands(6). Verbal Response: sg5 oriented(5). Total: 15. Trauma Score (Adult): 16:27 Eye Response: spontaneous(1); Verbal Response: oriented(1); Motor Response: obeys sg5 commands(2); Systolic BP: > 89 mm Hg(4); Respiratory Rate: 10 to 29 per min(4); Delong Score: 15; Trauma Score: 12 MDM: 10:07 Patient medically screened. snw 12:09 Differential diagnosis: contusion, sprain, strain, wound infection. Data reviewed: snw vital signs, nurses notes, lab test result(s), radiologic studies. I considered the following discharge prescriptions or medication management in the emergency department Medications were administered in the Emergency Department. See MAR. Care significantly affected by the following chronic conditions: Diabetes, Hypertension. Counseling: I had a detailed discussion with the patient and/or guardian regarding: the historical points, exam findings, and any diagnostic results supporting the discharge/admit diagnosis, lab results, radiology results, the need for outpatient follow up, to return to the emergency department if symptoms worsen or persist or if there are any questions or concerns that arise at home. Special discussion: I discussed in detail with the patient the higher chance of wound infection based on his presenting history. Based on the history and exam findings, there is no indication for further emergent testing or inpatient evaluation. I discussed with the patient/guardian the need to see the general surgeon for further evaluation of the symptoms. I discussed with the patient/guardian the need to see the primary care provider for further evaluation of the symptoms. 11/16 10:22 Order name: Blood Culture Adult (2) 11/16 10:22 Order name: CBC with Diff; Complete Time: 11:33 snw 11/16 10:22 Order name: CMP; Complete Time: 11:51 snw 11/16 10:22 Order name: Lactate w/ 2H reflex if indic.; Complete Time: 11:42 11/16 10:22 Order name: Protime (+inr); Complete Time: 11:25 11/16 10:22 Order name: Ptt, Activated; Complete Time: 11:25 11/16 10:22 Order name: Urinalysis w/ reflexes; Complete Time: 11:56 11/16 10:22 Order name: Chest Single View XRAY; Complete Time: 11:58 11/16 10:22 Order name: EKG; Complete Time: 10:23 11/16 10:22 Order name: Accucheck; Complete Time: 14:04 11/16 10:22 Order name: Cardiac monitoring; Complete Time: 14:04 11/16 10:22 Order name: EKG - Nurse/Tech; Complete Time: 11:28 11/16 10:22 Order name: IV Saline Lock - Large Bore; Complete Time: 11:04 11/16 10:22 Order name: Labs collected and sent; Complete Time: 14:04 w 11/16 10:22 Order name: O2 Per Protocol; Complete Time: 14:04 w 11/16 10:22 Order name: O2 Sat Monitoring; Complete Time: 14:04 w 11/16 10:22 Order name: Vital Signs; Complete Time: 14:05 w 11/16 11:33 Order name: Wound Care: hibiclens and nonstick dressing please; Complete Time: 15:09 snw EC:20 Rate is 64 beats/min. Rhythm is regular. QRS Frederic is Normal. CT interval is normal. QRS snw interval is normal. QT interval is normal. Clinical impression: NSR w/ Non-specific ST/T Changes. Administered Medications: 10:31 Drug: Boostrix Tdap IM 0.5 ml Route: IM; Site: left deltoid; sg5 12:44 Drug: Hydrocodone-Acetaminophen PO (7.5 mg-325 mg) 1 tabs Route: PO; sg5 12:44 Drug: Ampicillin-Sulbactam Sodium IVPB 3 grams Route: IVPB; Infused Over: 30 mins; sg5 Site: right antecubital; 14:05 Follow up: IV Status: Completed infusion; IV Intake: 100ml sg5 14:05 Drug: vancoMYCIN IVPB 1.5 grams Route: IVPB; Rate: calculated rate; Site: right sg5 antecubital; Disposition Summary: 11/16/22 12:09 Discharge Ordered Location: Home snw Condition: Stable snw Diagnosis - Bitten by Donkey snw - Skin avulsion from left great toe snw - Fall on same level from slipping, tripping and stumbling with subsequent striking snw against object Followup: snw - With: Emergency Department - When: As needed - Reason: Worsening of condition Followup: snw - With: Private Physician - When: 1 - 2 days - Reason: Recheck today's complaints, Continuance of care, Re-evaluation by your physician Discharge Instructions: - Discharge Summary Sheet snw - Head Injury, Adult snw - Fall Prevention in the Home, Adult snw - Deep Skin Avulsion snw - Wound Care, Adult snw - Chronic Kidney Disease, Adult snw Forms: - Medication Reconciliation Form snw - Thank You Letter snw - Antibiotic Education snw - Prescription Opioid Use snw Prescriptions: - Cipro 500 mg Oral Tablet - take 1 tablet by ORAL route every 12 hours for 7 days; 14 tablet; Refills: 0, snw Product Selection Permitted - Tramadol 50 mg Oral Tablet - take 1 tablet by ORAL route every 8 hours as needed; 12 tablet; Refills: 0, snw Product Selection Permitted - Bactrim DS 800-160 mg Oral Tablet - take 1 tablet by ORAL route every 12 hours for 7 days; 14 tablet; Refills: 0, snw Product Selection Permitted Signatures: Dispatcher [employer] Renetta Lockett, HEAD OF ICT-C HEAD OF ICT-Csnw Lizette Becerril, RN RN hb Hamida Anna, RN RN sg5
--- NOTE | 2022-11-16 12:10 | ER ---
Nurse's Notes [facility] Name: Tripp Webster Age: 57 yrs Sex: Male : 1965 Arrival Date: 11/16/2022 Time: 09:55 Bed 17 Private MD: Michael Grullon Diagnosis: Bitten by Donkey;Skin avulsion from left great toe;Fall on same level from slipping, tripping and stumbling with subsequent striking against object Presentation: 11/16 10:15 Chief complaint: Pain in left shoulder, hip, knee, lower leg, and foot after mechanical hb fall from standing 2 days ago. Also reports chronic wound on left lower leg that has been being treated by Dr. Lopez, with new donkey bite in same area a week ago. Wound noted to left lower leg and left great toe, dressing in place. Coronavirus screen: At this time, the client does not indicate any symptoms associated with coronavirus-19. Ebola Screen: No symptoms or risks identified at this time. Initial Sepsis Screen: Does the patient meet any 2 criteria? No. Patient's initial sepsis screen is negative. Does the patient have a suspected source of infection? No. Patient's initial sepsis screen is negative. Risk Assessment: Do you want to hurt yourself or someone else? Patient reports no desire to harm self or others. Onset of symptoms was November 16, 2022. 10:15 Method Of Arrival: Ambulatory hb 10:15 Acuity: MIRIAM 3 hb 16:28 Care prior to arrival: Injury cleansed. Injury dressed. Mechanism of Injury: abrasions. sg5 Trauma event details: Injury occurred: at home. Injury occurred: November 14, 2022. Trauma Activation: Not Applicable Physician: ED Physician; Name: ; Notified At: ; Arrived At: Physician: General Surgeon; Name: ; Notified At: ; Arrived At: Physician: Radiology; Name: ; Notified At: ; Arrived At: Physician: Respiratory; Name: ; Notified At: ; Arrived At: Physician: Lab; Name: ; Notified At: ; Arrived At: Historical: - Allergies: 10:18 No Known Allergies; hb - Home Meds: 16:31 amlodipine 5 mg tab 1 tab twice a day [Active]; Aspirin Oral [Active]; atorvastatin 80 sg5 mg Oral tab 1 tab once daily [Active]; carvedilol 12.5 mg Oral tab 1 tab 2 times per day [Active]; escitalopram oxalate 20 mg Oral tab 1 tab once daily [Active]; furosemide 80 mg Oral tab 1 tab once daily [Active]; gabapentin 600 mg Oral tab 1 tab four times a day [Active]; humalin 70/30 225 units daily [Active]; hydrocodone-acetaminophen 7.5-325 mg Oral tab 1 tab twice a day [Active]; Novolin R Sub-Q [Active]; Plavix 75 mg Oral tab 1 tab twice a day [Active]; tramadol 50 mg Oral tab 1 tab twice a day [Active]; - PMHx: 10:18 depressive disorder; Hypercholesterolemia; GERD; Diabetes - IDDM; CAD; Hypertension; hb neuropathy; - PSHx: 10:18 cardiac stents; hb - Immunization history:: Adult Immunizations up to date. - Immunization history: Last tetanus immunization: < 10 years ago. - Social history:: Smoking status: Patient denies any tobacco usage or history of. Screenin:20 [facility] ED Fall Risk Assessment (Adult) History of falling in the last 3 months, sg5 including since admission Yes- single mechanical fall (1 pt). Abuse screen: Denies threats or abuse. Nutritional screening: No deficits noted. Tuberculosis screening: No symptoms or risk factors identified. Primary Survey: 16:27 NO uncontrolled hemorrhage observed. Breathing/Chest: Spontaneous respiratory effort, sg5 equal unlabored respirations, breath sounds clear bilaterally, regular pattern, symmetrical chest rise and fall. Circulation: No external hemorrhage present. Regular and strong central pulse, skin warm/dry/normal color. Disability Pupils are equal, round, reactive to light and accommodation. Client is alert. Exposure/Environment: A warming method has been applied: A warm blanket has been provided to the patient. Reassessment Breathing: Spontaneous respiratory effort, equal unlabored respirations, breath sounds clear bilaterally, regular pattern with symmetrical chest rise and fall. Circulation: No external hemorrhage noted. Regular and strong central pulse, skin warm/dry/normal color. Disability: Pupils Pupils are equal, round, reactive to light and accomodation. Alert. Assessment: 10:20 General: Appears in no apparent distress. comfortable, Behavior is calm, cooperative, sg5 appropriate for age. Pain: Complains of pain in left knee, santoro and left foot. Neuro: Level of Consciousness is awake, alert, obeys commands, Oriented to person, place, time, situation, Appropriate for age. Cardiovascular: Capillary refill < 3 seconds Patient's skin is warm and dry. Respiratory: Airway is patent Trachea midline Respiratory effort is even, unlabored, Respiratory pattern is regular, symmetrical. GI: Abdomen is round non-distended. Derm: Wound noted left santoro near ankle, left big toe, left knee skin tears. 14:49 Reassessment: No changes from previously documented assessment. Patient and/or family sg5 updated on plan of care and expected duration. Pain level reassessed. Patient is alert, oriented x 3, equal unlabored respirations, skin warm/dry/pink. Vital Signs: 10:15 BP 150 / 53; Pulse 71; Resp 16; Temp 98.5(O); Pulse Ox 98% on R/A; Weight 127.01 kg; hb Height 5 ft. 11 in. ; Pain 8/10; 10:30 BP 127 / 55; Pulse 65; Resp 16; Pulse Ox 98% on R/A; Pain 6/10; sg5 11:00 BP 132 / 54; Pulse 64; Resp 16; Pulse Ox 98% on R/A; Pain 7/10; sg5 11:30 BP 126 / 54; Pulse 67; Resp 18; Pulse Ox 96% on R/A; Pain 7/10; sg5 12:00 BP 130 / 57; Pulse 71; Resp 16; Pulse Ox 98% on R/A; Pain 6/10; sg5 12:30 BP 143 / 62; Pulse 65; Resp 16; Pulse Ox 96% on R/A; Pain 7/10; sg5 13:00 BP 142 / 63; Pulse 61; Resp 16; Pulse Ox 96% on R/A; Pain 5/10; sg5 13:30 BP 112 / 41; Pulse 64; Resp 16; Pulse Ox 96% on R/A; Pain 5/10; sg5 14:00 BP 103 / 39; Pulse 65; Resp 16; Pulse Ox 96% on R/A; Pain 5/10; sg5 14:30 BP 114 / 36; Pulse 64; Resp 16; Pulse Ox 95% on R/A; Pain 5/10; sg5 15:00 BP 118 / 42; Pulse 62; Resp 16; Pulse Ox 98% on R/A; Pain 6/10; sg5 15:30 BP 112 / 52; Pulse 59; Resp 16; Pulse Ox 98% on R/A; Pain 6/10; sg5 16:00 BP 127 / 55; Pulse 65; Resp 16; Pulse Ox 98% on R/A; Pain 5/10; sg5 10:15 Body Mass Index 39.05 (127.01 kg, 180.34 cm) hb 10:15 Pain Scale: Adult hb 10:30 Pain Scale: Adult sg5 11:00 Pain Scale: Adult sg5 11:30 Pain Scale: Adult sg5 12:00 Pain Scale: Adult sg5 12:30 Pain Scale: Adult sg5 13:00 Pain Scale: Adult sg5 13:30 Pain Scale: Adult sg5 14:00 Pain Scale: Adult sg5 14:30 Pain Scale: Adult sg5 15:00 Pain Scale: Adult sg5 15:30 Pain Scale: Adult sg5 16:00 Pain Scale: Adult sg5 Fausto Coma Score: 16:27 Eye Response: spontaneous(4). Motor Response: obeys commands(6). Verbal Response: sg5 oriented(5). Total: 15. Trauma Score (Adult): 16:27 Eye Response: spontaneous(1); Verbal Response: oriented(1); Motor Response: obeys sg5 commands(2); Systolic BP: > 89 mm Hg(4); Respiratory Rate: 10 to 29 per min(4); Redford Score: 15; Trauma Score: 12 ED Course: 10:00 Patient arrived in ED. im 10:00 Michael Grullon DO is Private Physician. im 10:04 Renetta Lockett FNP-C is [facility] snw 10:04 Naveen Cunningham MD is Attending Physician. snw 10:06 Hamida Anna, KAMILLA is Primary Nurse. sg5 10:18 Triage completed. hb 10:18 Arm band placed on. hb 10:20 Patient has correct armband on for positive identification. Bed in low position. Call sg5 light in reach. Side rails up X2. Valuables Left with patient. 11:05 Inserted saline lock: 20 gauge in right antecubital area, using aseptic technique. sg5 Blood collected. 11:23 Chest Single View XRAY In Process Unspecified. EDMS 11:28 EKG done, by ED staff, reviewed by Renetta CORBETT. em1 16:27 No provider procedures requiring assistance completed. IV discontinued. sg5 16:31 Patient maintains SpO2 saturation greater than 95% on room air. sg5 16:33 Thermoregulation: warm blanket given to patient. sg5 Administered Medications: 10:31 Drug: Boostrix Tdap IM 0.5 ml Route: IM; Site: left deltoid; sg5 12:44 Drug: Hydrocodone-Acetaminophen PO (7.5 mg-325 mg) 1 tabs Route: PO; sg5 12:44 Drug: Ampicillin-Sulbactam Sodium IVPB 3 grams Route: IVPB; Infused Over: 30 mins; sg5 Site: right antecubital; 14:05 Follow up: IV Status: Completed infusion; IV Intake: 100ml sg5 14:05 Drug: vancoMYCIN IVPB 1.5 grams Route: IVPB; Rate: calculated rate; Site: right sg5 antecubital; Medication: 10:31 Vaccine Information Statement (VIS) provided today. Questions and/or concerns sg5 addressed. VIS edition date: January 17, 2021. Intake: 14:05 IV: 100ml; Total: 100ml. sg5 16:27 IV: 250ml; Total: 350ml. sg5 Output: 16:27 Urine: 1000ml (Voided); Total: 1000ml. sg5 Outcome: 12:09 Discharge ordered by . snw 16:29 Discharged to home via wheelchair. sg5 16:29 Condition: good 16:29 Discharge instructions given to patient, Instructed on discharge instructions, follow up and referral plans. 16:30 receiving antibioticsPatient's length of stay extended due to sg5 16:33 Patient left the ED. sg5 Signatures: Dispatcher [employer] EDRenetta Perez FNP-C FNP-Yogesh Mckeon em1 Lizette Becerril, RN RN Hamida Anna RN RN sg5 Yaneth Billingsley im
[2022-11-16] MEDS ORDERED: HYDROCODONE/APAP 7.5/325 MG TAB ONE (12:44)
[2022-11-16] MEDS ORDERED: AMPICILLIN/SULBACTAM 3GM/VIAL ONE (12:44)
[2022-11-16] MEDS ORDERED: VANCOMYCIN 1 GM/VIAL ONE (12:44)
[2022-11-16] MEDS ORDERED: VANCOMYCIN 500 MG/VIAL ONE (12:45)
[2022-11-16] MEDS ORDERED: NA CHLORIDE 0.9% 250 ML ONE (12:45)
[2022-11-16] MEDS ORDERED: NA CHLORIDE 0.9% 100 ML ONE (12:45)
[2022-11-16 16:39] VITALS: TEMP 98.5
[2022-11-16 16:52] VITALS: O2SAT 98
[2022-11-16 16:55] VITALS: BP 127/55
--- NOTE | 2022-11-18 07:22 | EKG ---
Test Date: 2022-11-16 Test Time: 11:19:18 Character Actor: CORNELIA MEASUREMENT RESULTS: Intervals: Rate: 64 MT: 180 QRSD: 96 QT: 394 QTc: 406 Decker: P: 65 MT: 180 QRS: 63 T: 55 INTERPRETIVE STATEMENTS: Normal sinus rhythm Normal ECG Compared to ECG 06/09/2022 09:48:15 Sinus tachycardia no longer present ST (T wave) deviation no longer present Electronically Signed On 11-18-22 07:15:22 CDT by Dale Rivera
== END 2022-11-16 16:33 | disposition home or self-care (01) ==
LOC: ER 09:55
DX: S91.112A Laceration without foreign body of left great toe without damage to nail, initial encounter (principal); W01.10XA Fall on same level from slipping, tripping and stumbling with subsequent striking against unspecified object, initial encounter; W55.31XA Bitten by other hoof stock, initial encounter; E11.9 Type 2 diabetes mellitus without complications; I10 Essential (primary) hypertension; Z95.818 Presence of other cardiac implants and grafts
CPT/HCPCS: 96365; 93005; 87040 ×2; 85025; 36415; 85610; 83605; 85730; 81003; 80053; 71045; 96375; 96372; 99285; J0295; J7050

== ENCOUNTER 2023-01-12 19:33 | Inpatient (IN) | payer OTHER ==
--- OUTSIDE RECORDS SUMMARY | 2023-01-12 19:42 | XMS REPORT | Continuity of Care Document ---
:1965 Author Organization Formerly [facility] t Address [address] [place] [address]. [address] [place] [address] Care Team Providers Name Role Phone Michael Grullon Primary Care Physician [phone] Michael Grullon Attending Clinician Unavailable ALEJO ARZATE Attending Clinician Unavailable ALEJO ARZATE Attending Clinician Unavailable Layla Torres MD Attending Clinician Alejo Arzaet MD Attending Clinician Doctor Unassigned, [place] Attending Clinician Unavailable Keyur Bonds Attending Clinician Unavailable Michael Grullon Attending Clinician Radiology Attending Clinician Unavailable RADIOLOGY Attending Clinician Unavailable Michael Grullon Admitting Clinician Unavailable Keyur Bonds Admitting Clinician Unavailable Payers Payer Name Policy Type Policy Number Effective Date Expiration Date S mariely [facility] MEDICARE [id number] 2022 [facility] [place]:00 [email or web address] [facility] [id number] 2022spring 00:00:00 [facility] [id number] 2021 2022 [facility] ADVANTAGE 00:00:00 00:00:[address] [facility] Problems Condition Condition Condition Status Onset Resolution Last Treating Co mments Source Name Details Category Date Date Treatment Clinician Date Dyslipidem Dyslipidem Disease Active 2015-06 U nivers ia ia 1-16 ity of 00:00: [place] 00 Medical Branch Diabetes Diabetes Disease Active Unive rs mellitus, mellitus, 03-05 ity of insulin insulin 00:00: [place] dependent dependent 00 Medi marck (IDDM), (IDDM), Branch uncontroll uncontroll ed ed Retinopath Retinopath Disease Active U nivers y y 03-05 ity of 00:00: [place] [facility] Neuropathy Neuropathy Disease Active U nivers 6-30 ity of 00:00: [place] [facility] Branch Muscle Muscle Disease Active Univers cramps cramps 6-30 ity of 00:00: [place] 00 [facility] Branch Obstructiv Obstructiv Problem C ommon e sleep e sleep Spirit apnea apnea - [facility] Erectile Erectile Problem Commo n dysfunctio dysfunctio Sp marissa n n [facility] [id number] History of Problem Co mmon CVA Spirit (cerebrova - CHI scular St accident) [facility] deficits [id number] Dog bite, Problem Com mon subsequent [facility] encounter [facility] [id number] Wound of Problem Comm on left lower Spirit extremity, - [facility] subsequent [facility] [id number] HTN Problem Common (hypertens Spirit ion), - [facility] benign [facility] Insomnia Insomnia Problem Commo n Spirit [facility] [id number] Venous Problem Common insufficie Spirit ncy of [facility] [id number] Other Problem Common chronic Spirit pain [facility] [id number] 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 [facility] [id number] Chronic Problem Commo n diastolic Spirit congestive - [facility] heart [facility] Hearing Hearing Problem Common loss deficit [facility] [id number] Tubular Problem Commo n adenoma of Spirit colon [facility] [id number] Local Problem Common infection Spirit of the - [facility] skin and subcutaneo [facility] us tissue, Medica l unspecifie Center d [id number] Cellulitis Problem C ommon [id number] of left Spirit lower - CHI extremity [facility] Left sided Left sided Problem C ommon ulcerative colitis Spiri t colitis with - CHI complicati [facility] [id number] Moderate Problem Commo n major Spirit depression - CHI , single [facility] [id number] PAD Problem Common (periphera Spirit l artery - CHI disease) [facility] [id number] Pain in Problem Comm on [id number] left Spirit shoulder - CHI [facility] [id number] Spinal Problem Common stenosis, Spirit lumbosacra - CHI l region [facility] Hyperglyce Type 2 Problem Commo n bryan due to diabetes Spir it type 2 mellitus - [facility] diabetes with [facility] bryan, Medical unspecifie Center d whether penitentiary insulin use [id number] Type 1 Problem Common diabetes [facility] mellitus - [facility] with other [facility] neurologic Medica l al Center complicati on Atheroscle 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 [id number] Body mass Problem Com mon index [facility] [BMI] - CHI 38.0-38.9, [facility] [id number] Left elbow Problem Com mon pain [facility] Sciatica Sciatic Problem Common pain, left Spirit [facility] [id number] Acute pain Problem Com mon of left Spirit shoulder CHI [facility] Peripheral Peripheral Problem C ommon neuropathy neuropathy Sp marissa - CHI [facility] Chronic Chronic Problem Common back pain back pain Spir it - CHI [facility] Hyperlipid Hyperlipid Problem C ommon emia emia [facility] Mixed Depression Problem Commo n anxiety with Spirit and anxiety - CHI depressive [facility] Allergies, Adverse Reactions, Alerts Allergy Allergy Status Severity Reaction(s) Onset Inactive Treating Comm ents Source Name Type Date Date Clinician No Known DA Active U [facility] Allergie 2-06 Clear s 00:00: Grimaldo 00 [facility] NO KNOWN Drug Active Univers ALLERGIE Class ity of S [facility] [place] [facility] Social History Social Habit Start Date Stop Date Quantity Comments Source History of [facility] - Tobacco Use [facility] Tobacco use and 2022-10-05 2022-10-05 Smokeless tobacco Un iversity of exposure 00:00:00 00:00:00 non-user [facility] [place] [facility] Alcohol intake 2022-10-05 2022-10-05 Current University of 00:00:00 00:00:00 non-drinker of [facility] alcohol (finding) Branch Exposure to 2022-09-24 2022-10-04 Not sure University SARS-CoV-2 00:00:00 17:21:00 [facility] (event) Branch Sex Assigned At [birth year] [facility] 00:00:00 00:00:00 Smoking Status Start Date Stop Date Source Tobacco smoking [facility] Never Smoker [facility] Medications Ordered Filled Start Stop Current Ordering Indication Dosage Frequency Signature Comments Components Source Medication Medication Date Date Medication? Clinician (SIG) Name Name amLODIPine 2022- No 2.5mg Take 2.5 U nivers 2.5 mg 4-24 04-24 mg by ity of tablet 10:09: 00:00 [facility] 47 :00 daily. Medical Branch amLODIPine 2022- No 2.5mg Take 2.5 U nivers 2.5 mg 4-24 04-24 mg by ity of tablet 10:09: 00:00 [facility] 47 :00 daily. Medical Branch carBAMazepi Yes [id number] 200mg Take 1 Univers ne 200 mg 4-24 tablet by ity o f tablet 00:00: mouth [place] 00 every 12 Medical (twelve) Branch hours. carBAMazepi 2022-0 Yes [id number] 200mg Take 1 Univers ne 200 mg 4-24 tablet by ity o f tablet 00:00: mouth [place] 00 every 12 Medical (twelve) Branch hours. carBAMazepi 2022- Yes [id number] 200mg Take 1 Univers ne 200 mg 4-24 tablet by ity o f tablet 00:00: mouth [place] 00 every 12 Medical (twelve) Branch hours. carBAMazepi 3-0 Yes [id number] 200mg Take 1 Univers ne 200 mg 4-24 tablet by ity o f tablet 00:00: mouth [place] 00 every 12 Medical (twelve) Branch hours. FreeStyle FreeStyle 2022-0 No FreeStyle Hunter 2 Hunter 2 2-08 Hunter 2 [place] - 00:00: [place] - 00 FreeStyle FreeStyle 2022-0 No FreeStyle Hunter 2 Hunter 2 2-08 Hunter 2 Sensor - Sensor - 00:00: Sensor - 00 Alcohol Alcohol 2022-0 No Alcohol Prep Pads Prep Pads 1-30 Prep Pads 70 % 70 % 00:00: 70 % 00 Alcohol Alcohol 2022-0 No Alcohol Prep Pads Prep Pads 1-30 Prep Pads 70 % 70 % 00:00: 70 % 00 Mobic 7.5 Mobic 7.5 2021-2022- No 1{table QD Mobic 7.5 MG MG 2-14 06-26 t} MG 00:00: 00:00 00 :00 Mobic 7.5 Mobic 7.5 2021-2022- No 1{table QD Mobic 7.5 MG MG 2-14 - t} MG 00:00: 00:00 00 :00 Mobic 7.5 Mobic 7.5 2021-2022- No 1{table QD Mobic 7.5 MG MG 2-14 - t} MG 00:00: 00:00 00 :00 Kenalog Kenalog 2021-0 No 40mg Common (Triamcinol (Triamcinol 7-20 S pirit one) one) 00:00: - CHI 00 [facility] Kenalog Kenalog 2021-0 No 40mg Common (Triamcinol (Triamcinol 7-20 S pirit one) one) 00:00: - CHI 00 [facility] Kenalog Kenalog 2021-0 No 40mg Common (Triamcinol (Triamcinol 7-20 S pirit one) one) 00:00: - CHI [facility] Kenalog Kenalog 2021-0 No 40mg Common (Triamcinol (Triamcinol 7-20 S pirit one) one) 00:00: - CHI 00 [facility] Kenalog Kenalog 0 No 40mg Common (Triamcinol (Triamcinol 7-20 S pirit one) one) 00:00: - CHI 00 [facility] Kenalog Kenalog 0 No 40mg Common (Triamcinol (Triamcinol 7-20 S pirit one) one) 00:00: - CHI 00 [facility] [place] Kenalog 0 No 40mg Common (Triamcinol (Triamcinol 7-20 S pirit one) one) 00:00: - CHI 00 [facility] [place] Kenalog 0 No 40mg Common (Triamcinol (Triamcinol 7-20 S pirit one) one) 00:00: - CHI 00 [facility] Ashley Kenalog No 40mg Common (Triamcinol (Triamcinol 7-20 S pirit one) one) 00:00: - CHI 00 [facility] Ashley Kenalog 0 No 40mg Common (Triamcinol (Triamcinol 7-20 S pirit one) one) 00:00: - CHI 00 [facility] [place] Kenalog 2021-0 No 40mg Common (Triamcinol (Triamcinol 7-20 S pirit one) one) 00:00: - CHI 00 [facility] [place] Kenalog 0 No 40mg Common (Triamcinol (Triamcinol 7-20 S pirit one) one) 00:00: - CHI 00 [facility] Kenalog Kenalog 0 No 40mg Common (Triamcinol (Triamcinol 7-20 S pirit one) one) 00:00: - CHI 00 [facility] Kenalog Kenalog 2021-0 No 40mg Common (Triamcinol (Triamcinol 7-20 S pirit one) one) 00:00: - CHI 00 [facility] HumuLIN HumuLIN 0 No BID HumuLIN 70/30 70/30 7-12 70/30 (70-30) 100 (70-30) 100 00:00: (70-30) UNIT/ML UNIT/ML 00 100 UNIT/ML Insulin Insulin 2022-0 No Insulin Syringe-Nee Syringe-Nee 7-12 Syringe-Ne dle U-100 dle U-100 00:00: edle U-100 31G X 5/16" 31G X 5/16" 00 31G X 1 ML 1 ML /16" 1 ML HumuLIN HumuLIN 2-0 No BID HumuLIN 70/30 70/30 7-12 70/30 (70-30) 100 (70-30) 100 00:00: (70-30) UNIT/ML UNIT/ML 00 100 UNIT/ML Insulin Insulin 2-0 No Insulin Syringe-Nee Syringe-Nee -12 Syringe-Ne dle U-100 dle U-100 00:00: edle U-100 31G X 5/16" 31G X 5/16" 00 31G X 1 ML 1 ML 16" 1 ML HumuLIN HumuLIN 2021-0 No BID HumuLIN 70/30 70/30 - 70/30 (70-30) 100 (70-30) 100 00:00: (70-30) UNIT/ML UNIT/ML 00 100 UNIT/ML Insulin Insulin 2-0 No Insulin Syringe-Nee Syringe-Nee -12 Syringe-Ne dle U-100 dle U-100 00:00: edle U-100 31G X 5/16" 31G X /16" 00 31G X 1 ML 1 ML 16" 1 ML HumuLIN HumuLIN 2-0 No BID HumuLIN 70/30 70/30 - 70/30 (70-30) 100 (70-30) 100 00:00: (70-30) UNIT/ML UNIT/ML 00 100 UNIT/ML Insulin Insulin 2022-0 No Insulin Syringe-Nee Syringe-Nee 7-12 Syringe-Ne dle U-100 dle U-100 00:00: edle U-100 31G X 5/16" 31G X 5/16" 00 31G X 1 ML 1 ML /16" 1 ML HumuLIN HumuLIN 2-0 No BID [...] 1 ML 5/16" 1 ML Lidocaine Lidocaine 2-0 No 10mg Com 07-14 Spirit 00:00: - CHI [facility] Kenalog Kenalog 2021-0 No 40mg Common (Triamcinol (Triamcinol 1-31 S pirit one) one) 00:00: - CHI [facility] Lidocaine Lidocaine 2-0 No 10mg Com 07-14 Spirit 00:00: - CHI [facility] Kenalog Kenalog 2-0 No 40mg Common (Triamcinol (Triamcinol 1-31 S pirit one) one) 00:00: - CHI [facility] Lidocaine Lidocaine 2-0 No 10mg Com 07-14 Spirit 00:00: - CHI [facility] Kenalog Kenalog 2-0 No 40mg Common (Triamcinol (Triamcinol 1-31 S pirit one) one) 00:00: - CHI [facility] Lidocaine Lidocaine 2-0 No 10mg Com 07-14 Spirit 00:00: - CHI [facility] Kenalog Kenalog 2-0 No 40mg Common (Triamcinol (Triamcinol 1-31 S pirit one) one) 00:00: - CHI 00 [facility] Lidocaine Lidocaine 2-0 No 10mg Com 07-14 Spirit 00:00: - CHI 00 [facility] Kenalog Kenalog 2-0 No 40mg Common (Triamcinol (Triamcinol 1-31 S pirit one) one) 00:00: - CHI 00 [facility] Lidocaine Lidocaine 2-0 No 10mg Com 07-14 Spirit 00:00: - CHI 00 [facility] Kenalog Kenalog 2-0 No 40mg Common (Triamcinol (Triamcinol 1-31 S pirit one) one) 00:00: - CHI 00 [facility] Lidocaine Lidocaine 2-0 No 10mg Com 07-14 Spirit 00:00: - CHI [facility] Kenalog Kenalog 2-0 No 40mg Common (Triamcinol (Triamcinol 1-31 S pirit one) one) 00:00: - CHI 00 [facility] Lidocaine Lidocaine 2-0 No 10mg Com 07-14 Spirit 00:00: - CHI [facility] Kenalog Kenalog 2-0 No 40mg Common (Triamcinol (Triamcinol 1-31 S pirit one) one) 00:00: - CHI [facility] Lidocaine Lidocaine 2-0 No 10mg Com 07-14 Spirit 00:00: - CHI 00 [facility] Kenalog Kenalog 2-0 No 40mg Common (Triamcinol (Triamcinol 1-31 S pirit one) one) 00:00: - CHI 00 [facility] Lidocaine Lidocaine 2-0 No 10mg Com 07-14 Spirit 00:00: - CHI 00 [facility] Kenalog Kenalog 2-0 No 40mg Common (Triamcinol (Triamcinol 1-31 S pirit one) one) 00:00: - CHI [facility] Lidocaine Lidocaine 2022-0 No 10mg Com 07-14 Spirit 00:00: - CHI 00 [facility] Kenalog Kenalog 2022-0 No 40mg Common (Triamcinol (Triamcinol 1-31 S pirit one) one) 00:00: - CHI [facility] Lidocaine Lidocaine 2021-0 No 10mg Com 07-14 Spirit 00:00: - CHI [facility] Kenalog Kenalog 2021-0 No 40mg Common (Triamcinol (Triamcinol 1-31 S pirit one) one) 00:00: - CHI [facility] Lidocaine Lidocaine 2021-0 No 10mg Com 07-14 Spirit 00:00: - CHI [facility] Kenalog Kenalog 2021-0 No 40mg Common (Triamcinol (Triamcinol 1-31 S pirit one) one) 00:00: - CHI [facility] Lidocaine Lidocaine 2021-0 No 10mg Com 07-14 Spirit 00:00: - CHI [facility] Kenalog Kenalog 2021-0 No 40mg Common (Triamcinol (Triamcinol 1-31 S pirit one) one) 00:00: - CHI [facility] gadoteridol 2019-1 2020- No .2mL/kg 0.2 mL/kg, Univers (PROHANCE-1 0-11 04- Intravenou i ty of 5 mL) 15:45: 17:18 s, ONCE, 1 [place] injection 00 :00 dose, Emma Medic al 0.2 mL/kg 04/11/20 Branch at 1045, Routine Kenalog Kenalog 2019-0 No 40mg Common (Triamcinol (Triamcinol 3-24 S pirit one) one) 00:00: - CHI [facility] Kenalog Kenalog 2020-0 No 40mg Common (Triamcinol (Triamcinol 3-24 S pirit one) one) 00:00: - CHI [facility] Kenalog Kenalog 2020-0 No 40mg Common (Triamcinol (Triamcinol 3-24 S pirit one) one) 00:00: - CHI [facility] Kenalog Kenalog 2020-0 No 40mg Common (Triamcinol (Triamcinol 3-24 S pirit one) one) 00:00: - CHI [facility] Kenalog Kenalog 2020-0 No 40mg Common (Triamcinol (Triamcinol 3-24 S pirit one) one) 00:00: - CHI 00 [facility] Kenalog Kenalog 2020-0 No 40mg Common (Triamcinol (Triamcinol 3-24 S pirit one) one) 00:00: - CHI 00 [facility] Kenalog Kenalog 2020-0 No 40mg Common (Triamcinol (Triamcinol 3-24 S pirit one) one) 00:00: - CHI 00 [facility] Kenalog Kenalog 2020-0 No 40mg Common (Triamcinol (Triamcinol 3-24 S pirit one) one) 00:00: - CHI 00 [facility] Kenalog Kenalog 2020-0 No 40mg Common (Triamcinol (Triamcinol 3-24 S pirit one) one) 00:00: - CHI 00 [facility] Kenalog Kenalog 2020-0 No 40mg Common (Triamcinol (Triamcinol 3-24 S pirit one) one) 00:00: - CHI 00 [facility] Kenalog Kenalog 2020-0 No 40mg Common (Triamcinol (Triamcinol 3-24 S pirit one) one) 00:00: - CHI 00 [facility] Kenalog Kenalog 2020-0 No 40mg Common (Triamcinol (Triamcinol 3-24 S pirit one) one) 00:00: - CHI 00 [facility] Kenalog Kenalog 2020-0 No 40mg Common (Triamcinol (Triamcinol 3-24 S pirit one) one) 00:00: - CHI 00 [facility] Kenalog Kenalog 2020-0 No 40mg Common (Triamcinol (Triamcinol 3-24 S pirit one) one) 00:00: - CHI 00 [facility] Novolin R Novolin R 2019- Yes Michael per C ommon 1-04 [place] sliding Spirit 00:00: scale 2 - CHI 00 units - 28 [facility] NovoLIN R NovoLIN R 2019-1 No TID NovoLIN R 100 UNIT/ML 100 UNIT/ML 1-04 100 00:00: UNIT/ML 00 NovoLIN R NovoLIN R 2018-06 No TID NovoLIN R 100 UNIT/ML 100 UNIT/ML 06-17 100 00:00: UNIT/ML 00 NovoLIN R NovoLIN R 2018-06 No TID NovoLIN R 100 UNIT/ML 100 UNIT/ML 06-17 100 00:00: UNIT/ML 00 NovoLIN R NovoLIN R 2018-06 No TID NovoLIN R 100 UNIT/ML 100 UNIT/ML 06-17 100 00:00: UNIT/ML 00 NovoLIN R NovoLIN R 2018-06 No TID NovoLIN R 100 UNIT/ML 100 UNIT/ML 06-17 100 00:00: UNIT/ML 00 NovoLIN R NovoLIN R 2018-06 No TID NovoLIN R 100 UNIT/ML 100 UNIT/ML 06-17 100 00:00: UNIT/ML 00 NovoLIN R NovoLIN R 2018-06 No TID NovoLIN R 100 UNIT/ML 100 UNIT/ML 06-17 100 00:00: UNIT/ML 00 NovoLIN R NovoLIN R 2018-06 No TID NovoLIN R 100 UNIT/ML 100 UNIT/ML 06-17 100 00:00: UNIT/ML 00 NovoLIN R NovoLIN R 2018-06 No TID NovoLIN R 100 UNIT/ML 100 UNIT/ML 06-17 100 00:00: UNIT/ML 00 NovoLIN R NovoLIN R 2018-06 No TID NovoLIN R 100 UNIT/ML 100 UNIT/ML 06-17 100 00:00: UNIT/ML 00 NovoLIN R NovoLIN R 2018-06 No TID NovoLIN R 100 UNIT/ML 100 UNIT/ML 06-17 100 00:00: UNIT/ML 00 NovoLIN R NovoLIN R 2018-06 No TID NovoLIN R 100 UNIT/ML 100 UNIT/ML 06-17 100 00:00: UNIT/ML 00 NovoLIN R NovoLIN R 2018-06 No TID NovoLIN R 100 UNIT/ML 100 UNIT/ML 06-17 100 00:00: UNIT/ML 00 NovoLIN R NovoLIN R 2018-06 No TID NovoLIN R 100 UNIT/ML 100 UNIT/ML 06-17 100 00:00: UNIT/ML 00 dulaglutide 2017- Yes [id number] 1.5mg inject 1.5 Univers (TRULICITY) 8-27 mg under ity of 1.5 mg/0.5 00:00: the skin [place] as mL PnIj 00 weekly. Medical Branch dulaglutide Yes [id number] 1.5mg inject 1.5 Univers (TRULICITY) 8-27 mg under ity of 1.5 mg/0.5 00:00: the skin [place] as mL PnIj 00 weekly. Medical Branch dulaglutide Yes [id number] 1.5mg inject 1.5 Univers (TRULICITY) 8-27 mg under ity of 1.5 mg/0.5 00:00: the skin [place] as mL PnIj 00 weekly. Medical Branch dulaglutide Yes [id number] 1.5mg inject 1.5 Univers (TRULICITY) 8-27 mg under ity of 1.5 mg/0.5 00:00: the skin [place] as mL PnIj 00 weekly. Medical Branch dulaglutide Yes [id number] 1.5mg inject 1.5 Univers (TRULICITY) 8-27 mg under ity of 1.5 mg/0.5 00:00: the skin [place] as mL PnIj 00 weekly. Medical Branch dulaglutide Yes [id number] 1.5mg inject 1.5 Univers (TRULICITY) 8-27 mg under ity of 1.5 mg/0.5 00:00: the skin [place] as mL PnIj 00 weekly. Medical Branch dulaglutide Yes [id number] 1.5mg inject 1.5 Univers (TRULICITY) 8-27 mg under ity of 1.5 mg/0.5 00:00: the skin [place] as mL PnIj 00 weekly. Medical Branch dulaglutide Yes [id number] 1.5mg inject 1.5 Univers (TRULICITY) 8-27 mg under ity of 1.5 mg/0.5 00:00: the skin [place] as mL PnIj 00 weekly. Medical Branch dulaglutide 2017- Yes [id number] 1.5mg inject 1.5 Univers (TRULICITY) 8-27 mg under ity of 1.5 mg/0.5 00:00: the skin [place] as mL PnIj 00 weekly. Medical Branch dulaglutide Yes [id number] 1.5mg inject 1.5 Univers (TRULICITY) 8-27 mg under ity of 1.5 mg/0.5 00:00: the skin [place] as mL PnIj 00 weekly. Medical Branch dulaglutide Yes [id number] 1.5mg inject 1.5 Univers (TRULICITY) 8-27 mg under ity of 1.5 mg/0.5 00:00: the skin [place] as mL PnIj 00 weekly. Medical Branch dulaglutide Yes [id number] 1.5mg inject 1.5 Univers (TRULICITY) 8-27 mg under ity of 1.5 mg/0.5 00:00: the skin [place] as mL PnIj 00 weekly. Medical Branch dulaglutide Yes [id number] 1.5mg inject 1.5 Univers (TRULICITY) 8-27 mg under ity of 1.5 mg/0.5 00:00: the skin [place] as mL PnIj 00 weekly. Medical Branch dulaglutide Yes [id number] 1.5mg inject 1.5 Univers (TRULICITY) 8-27 mg under ity of 1.5 mg/0.5 00:00: the skin [place] as mL PnIj 00 weekly. Medical Branch dulaglutide Yes [id number] 1.5mg inject 1.5 Univers (TRULICITY) 8-27 mg under ity of 1.5 mg/0.5 00:00: the skin [place] as mL PnIj 00 weekly. Medical Branch dulaglutide Yes [id number] 1.5mg inject 1.5 Univers (TRULICITY) 8-27 mg under ity of 1.5 mg/0.5 00:00: the skin [place] as mL PnIj 00 weekly. Medical Branch dulaglutide Yes [id number] 1.5mg inject 1.5 Univers (TRULICITY) 8-27 mg under ity of 1.5 mg/0.5 00:00: the skin [place] as mL PnIj 00 weekly. Medical Branch dulaglutide 2017- Yes [id number] 1.5mg inject 1.5 Univers (TRULICITY) 8-27 mg under ity of 1.5 mg/0.5 00:00: the skin [place] as mL PnIj 00 weekly. Medical Branch dulaglutide Yes [id number] 1.5mg inject 1.5 Univers (TRULICITY) 8-27 mg under ity of 1.5 mg/0.5 00:00: the skin [place] as mL PnIj 00 weekly. Medical Branch dulaglutide 2017- Yes [id number] 1.5mg inject 1.5 Univers (TRULICITY) 8-27 mg under ity of 1.5 mg/0.5 00:00: the skin [place] as mL PnIj 00 weekly. Medical Branch insulin Yes [id number] 28U inject Uni vers lispro, 5-25 28-34 ity of human, 00:00: Units [place] (HUMALOG) 00 under the Medic al 100 unit/mL skin 3 Branch injection (three) times daily before meals. insulin Yes [id number] 28U inject Uni vers lispro, 5-25 28-34 ity of human, 00:00: Units [place] (HUMALOG) 00 under the Medic al 100 unit/mL skin 3 Branch injection (three) times daily before meals. insulin Yes [id number] 28U inject Uni vers lispro, 5-25 28-34 ity of human, 00:00: Units [place] (HUMALOG) 00 under the Medic al 100 unit/mL skin 3 Branch injection (three) times daily before meals. insulin Yes [id number] 28U inject Uni vers lispro, 5-25 28-34 ity of human, 00:00: Units [place] (HUMALOG) 00 under the Medic al 100 unit/mL skin 3 Branch injection (three) times daily before meals. insulin Yes [id number] 28U inject Uni vers lispro, 5-25 28-34 ity of human, 00:00: Units [place] (HUMALOG) 00 under the Medic al 100 unit/mL skin 3 Branch injection (three) times daily before meals. insulin Yes [id number] 28U inject Univ ers lispro, 5-25 28-34 ity of human, 00:00: Units [place] (HUMALOG) 00 under the Medic al 100 unit/mL skin 3 Branch injection (three) times daily before meals. insulin Yes [id number] 28U inject Univ ers lispro, 5-25 28-34 ity of human, 00:00: Units [place] (HUMALOG) 00 under the Medic al 100 unit/mL skin 3 Branch injection (three) times daily before meals. insulin Yes [id number] 28U inject Univ ers lispro, 5-25 28-34 ity of human, 00:00: Units [place] (HUMALOG) 00 under the Medic al 100 unit/mL skin 3 Branch injection (three) times daily before meals. insulin 2017- Yes [id number] 28U inject Univ ers lispro, 11-05 ity of human, 00:00: Units [place] (HUMALOG) 00 under the Medic al 100 unit/mL skin 3 Branch injection (three) times daily before meals. insulin 2017- Yes [id number] 28U inject Univ ers lispro, 11-05 ity of human, 00:00: Units [place] (HUMALOG) 00 under the Medic al 100 unit/mL skin 3 Branch injection (three) times daily before meals. escitalopra Yes 10mg Take 10 mg Univers m oxalate 5-07 by mouth ity of (LEXAPRO) 18:23: daily. [place] 10 mg Medical tablet Branch clopidogrel Yes 75mg Take 75 mg Univers (PLAVIX) 75 5-07 by mouth ity of mg tablet 18:23: daily. [place] [address] Medical Branch amLODIPine Yes 2.5mg Take 2.5 Un marc 2.5 mg 5-07 mg by ity of tablet 18:23: mouth [place] 19 daily. Medical Branch escitalopra Yes 10mg Take 10 mg Univers m oxalate 5-07 by mouth ity of (LEXAPRO) 18:23: daily. [place] 10 mg Medical tablet Branch clopidogrel Yes 75mg Take 75 mg Univers (PLAVIX) 75 5-07 by mouth ity of mg tablet 18:23: daily. [place] [address] Medical Branch amLODIPine Yes 2.5mg Take 2.5 Un marc 2.5 mg 5-07 mg by ity of tablet 18:23: mouth 19 daily. Medical Branch escitalopra Yes 10mg Take 10 mg Univers m oxalate 5-07 by mouth ity of (LEXAPRO) 18:23: daily. [place] 10 mg Medical tablet Branch clopidogrel Yes 75mg Take 75 mg Univers (PLAVIX) 75 5-07 by mouth ity of mg tablet 18:23: daily. [address] amLODIPine Yes 2.5mg Take 2.5 Un marc 2.5 mg 5-07 mg by ity of tablet 18:23: mouth [place] [address] daily. [facility] escitalopra Yes 10mg Take 10 mg Univers m oxalate 5-07 by mouth ity of (LEXAPRO) 18:23: daily. [place] 10 mg Medical tablet Branch clopidogrel Yes 75mg Take 75 mg Univers (PLAVIX) 75 5-07 by mouth ity of mg tablet 18:23: daily. [address] amLODIPine Yes 2.5mg Take 2.5 Un marc 2.5 mg 5-07 mg by ity of tablet 18:23: mouth [place] 19 daily. [facility] escitalopra Yes 10mg Take 10 mg Univers m oxalate 5-07 by mouth ity of (LEXAPRO) 18:23: daily. [place] 10 mg Medical tablet Branch clopidogrel Yes 75mg Take 75 mg Univers (PLAVIX) 75 5-07 by mouth ity of mg tablet 18:23: daily. [address] amLODIPine Yes 2.5mg Take 2.5 Un marc 2.5 mg 5-07 mg by ity of tablet 18:23: mouth [place] 19 daily. [facility] escitalopra Yes 10mg Take 10 mg Univers m oxalate 5-07 by mouth ity of (LEXAPRO) 13:23: daily. [place] 10 mg Medical tablet Branch clopidogrel Yes 75mg Take 75 mg Univers (PLAVIX) 75 5-07 by mouth ity of mg tablet 13:23: daily. [address] escitalopra Yes 10mg Take 10 mg Univers m oxalate 5-07 by mouth ity of (LEXAPRO) 13:23: daily. [place] 10 mg Medical tablet Branch clopidogrel Yes 75mg Take 75 mg Univers (PLAVIX) 75 5-07 by mouth ity of mg tablet 13:23: daily. [address] escitalopra Yes 10mg Take 10 mg Univers m oxalate 5-07 by mouth ity of (LEXAPRO) 13:23: daily. [place] 10 mg Medical tablet Branch clopidogrel Yes 75mg Take 75 mg Univers (PLAVIX) 75 5-07 by mouth ity of mg tablet 13:23: daily. [address] escitalopra Yes 10mg Take 10 mg Univers m oxalate 5-07 by mouth ity of (LEXAPRO) 13:23: daily. [place] 10 mg 19 Medical tablet Branch clopidogrel 2017- Yes 75mg Take 75 mg Univers (PLAVIX) 75 5-07 by mouth ity of mg tablet 13:23: daily. [address] escitalopra 2018- Yes 10mg Take 10 mg Univers m oxalate 5-07 by mouth ity of (LEXAPRO) 13:23: daily. [place] 10 mg 19 Medical tablet Branch clopidogrel 2017-0 Yes 75mg Take 75 mg Univers (PLAVIX) 75 5-07 by mouth ity of mg tablet 13:23: daily. [address] amLODIPine 2017- Yes 2.5mg Take 2.5 Un marc 2.5 mg 5-07 mg by ity of tablet 13:23: mouth [place] [address] daily. Medical Branch insulin NPH Yes [id number] 40U inject 40 Univers 100 unit/mL 5-07 Units ity of injection 00:00: under the [place] 00 skin every Medical morning Branch and evening. insulin NPH Yes [id number] 40U inject 40 Univers 100 unit/mL 5-07 Units ity of injection 00:00: under the [place] 00 skin every Medical morning Branch and evening. insulin NPH Yes [id number] 40U inject 40 Univers 100 unit/mL 5-07 Units ity of injection 00:00: under the [place] 00 skin every Medical morning Branch and evening. insulin NPH Yes [id number] 40U inject 40 Univers 100 unit/mL 5-07 Units ity of injection 00:00: under the [place] 00 skin every Medical morning Branch and evening. insulin NPH Yes [id number] 40U inject 40 Univers 100 unit/mL 5-07 Units ity of injection 00:00: under the [place] 00 skin every Medical morning Branch and evening. insulin NPH 2017-0 Yes [id number] 40U inject 40 Univers 100 unit/mL 5-07 Units ity of injection 00:00: under the [place] 00 skin every Medical morning Branch and evening. insulin NPH 2017-0 Yes [id number] 40U inject 40 Univers 100 unit/mL 5-07 Units ity of injection 00:00: under the [place] 00 skin every Medical morning Branch and evening. insulin NPH 2017- Yes [id number] 40U inject 40 Univers 100 unit/mL 5-07 Units ity of injection 00:00: under the [place] 00 skin every Medical morning Branch and evening. insulin NPH 2018-0 Yes [id number] 40U inject 40 Univers 100 unit/mL 5-07 Units ity of injection 00:00: under the [place] 00 skin every Medical morning Branch and evening. insulin NPH 2018-0 Yes [id number] 40U inject 40 Univers 100 unit/mL 5-07 Units ity of injection 00:00: under the [place] 00 skin every Medical morning Branch and evening. atorvastati 2018-0 Yes 40mg Take 40 mg Univers n 80 mg 1-18 by mouth ity of tablet 00:00: every [place] evening. Medical Branch lisinopril 2018-0 Yes 20mg Take 20 mg U nivers 20 mg 1-18 by mouth ity of tablet 00:00: daily. Medical Branch atorvastati 2018-0 Yes 40mg Take 40 mg Univers n 80 mg 1-18 by mouth ity of tablet 00:00: every [place] evening. Medical Branch lisinopril 2018-0 Yes 20mg Take 20 mg U nivers 20 mg 1-18 by mouth ity of tablet 00:00: daily. Medical Branch atorvastati 2018-0 Yes 40mg Take 40 mg Univers n 80 mg 1-18 by mouth ity of tablet 00:00: every [place] evening. Medical Branch lisinopril 2018-0 Yes 20mg Take 20 mg U nivers 20 mg 1-18 by mouth ity of tablet 00:00: daily. Medical Branch atorvastati 2018-0 Yes 40mg Take 40 mg Univers n 80 mg 1-18 by mouth ity of tablet 00:00: every [place] evening. Medical Branch lisinopril 2018-0 Yes 20mg Take 20 mg U nivers 20 mg 1-18 by mouth ity of tablet 00:00: daily. Medical Branch atorvastati 2018-0 Yes 40mg Take 40 mg Univers n 80 mg 1-18 by mouth ity of tablet 00:00: every [place] evening. Medical Branch lisinopril 2018-0 Yes 20mg Take 20 mg U nivers 20 mg 1-18 by mouth ity of tablet 00:00: daily. Medical Branch atorvastati 2018-0 Yes 40mg Take 40 mg Univers n 80 mg 1-18 by mouth ity of tablet 00:00: every [place] 00 evening. Medical Branch lisinopril 2018-0 Yes 20mg Take 20 mg U nivers 20 mg 1-18 by mouth ity of tablet 00:00: daily. Medical Branch atorvastati 2018-0 Yes 40mg Take 40 mg Univers n 80 mg 1-18 by mouth ity of tablet 00:00: every [place] evening. Medical Branch lisinopril 2018-0 Yes 20mg Take 20 mg U nivers 20 mg 1-18 by mouth ity of tablet 00:00: daily. Medical Branch atorvastati 2017-0 Yes 40mg Take 40 mg Univers n 80 mg 1-18 by mouth ity of tablet 00:00: every [place] evening. Medical Branch lisinopril 2017-0 Yes 20mg Take 20 mg U nivers 20 mg 1-18 by mouth ity of tablet 00:00: daily. Medical Branch atorvastati 2017-0 Yes 40mg Take 40 mg Univers n 80 mg 1-18 by mouth ity of tablet 00:00: every [place] evening. Medical Branch lisinopril 2017-0 Yes 20mg Take 20 mg U nivers 20 mg 1-18 by mouth ity of tablet 00:00: daily. Medical Branch atorvastati 2018-0 Yes 40mg Take 40 mg Univers n 80 mg 1-18 by mouth ity of tablet 00:00: every [place] evening. Medical Branch lisinopril 2018-0 Yes 20mg Take 20 mg U nivers 20 mg 1-18 by mouth ity of tablet 00:00: daily. Medical Branch gabapentin 2016-0 Yes [id number] 600mg Take 1 Univers (NEURONTIN) 8-16 tablet by ity of 600 mg 00:00: mouth 3 [place] tablet 00 (three) Medical times [place] daily. gabapentin 2016-0 Yes [id number] 600mg Take 1 Univers (NEURONTIN) 8-16 tablet by ity of 600 mg 00:00: mouth 3 [place] tablet 00 (three) Medical times Branch daily. gabapentin 2015-0 Yes [id number] 600mg Take 1 Univers (NEURONTIN) 8-16 tablet by ity of 600 mg 00:00: mouth 3 [place] tablet 00 (three) Medical times Branch daily. gabapentin 2015-0 Yes [id number] 600mg Take 1 Univers (NEURONTIN) 8-16 tablet by ity of 600 mg 00:00: mouth 3 [place] tablet 00 (three) Medical times Branch daily. gabapentin 2016-0 Yes [id number] 600mg Take 1 Univers (NEURONTIN) 8-16 tablet by ity of 600 mg 00:00: mouth 3 [place] tablet 00 (three) Medical times Branch daily. gabapentin 2016-0 Yes [id number] 600mg Take 1 Univers (NEURONTIN) 8-16 tablet by ity of 600 mg 00:00: mouth 3 [place] tablet 00 (three) Medical times Branch daily. gabapentin 2016-0 Yes [id number] 600mg Take 1 Univers (NEURONTIN) 8-16 tablet by ity of 600 mg 00:00: mouth 3 [place] tablet 00 (three) Medical times Branch daily. gabapentin 2016-0 Yes [id number] 600mg Take 1 Univers (NEURONTIN) 8-16 tablet by ity of 600 mg 00:00: mouth 3 [place] tablet 00 (three) Medical times Branch daily. gabapentin 2016-0 Yes [id number] 600mg Take 1 Univers (NEURONTIN) 8-16 tablet by ity of 600 mg 00:00: mouth 3 [place] tablet 00 (three) Medical times Branch daily. gabapentin 2016-0 Yes [id number] 600mg Take 1 Univers (NEURONTIN) 8-16 tablet by ity of 600 mg 00:00: mouth 3 [place] tablet 00 (three) Medical times Branch daily. 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 - Satellite Tv Technician - Lipitor 80 Lipitor 80 No 1{table [...] MG MG Dexcom G6 Dexcom G6 No [facility] G6 Transmitter Transmitter Transmitte - - r - Dexcom G6 Dexcom G6 No Dexcom G6 Sensor - Sensor - Sensor - Plavix 75 Plavix 75 No 1{table QD Plavix 75 MG MG t} MG Dexcom G6 Dexcom G6 No Eye-Pharmacom G6 Satellite Tv Technician - Satellite Tv Technician - Satellite Tv Technician - OneTouch OneTouch Yes Michael USE TO Com mon Ultra Test Ultra Test [place] CHECK S pirit BLOOD - CHI SUGAR FOUR [facility] TIMES [facility] Amlodipine Amlodipine Yes Michael TAKE 1 Common Besylate Besylate [place] TABLET BY S pirit MOUTH ONCE - CHI A DAY [facility] Hydrochloro Hydrochloro Yes Michael TAKE 1 Common thiazide thiazide [place] TABLET BY S pirit MOUTH ONCE - CHI A DAY IN [facility] Neurontin Neurontin Yes Michael 1 tablet Common [place] Spirit - CHI [facility] Novolin N Novolin N Yes Michael 50 units Common [place] [facility] Escitalopra Escitalopra Yes Michael 1 tablet Common m Oxalate m Oxalate [place] Spir it [facility] Coreg Coreg Yes Michael 1 tablet Common [place] [facility] NovoLog NovoLog Yes Michael sliding Comm on [place] scale 36 Spirit units [facility] OneTouch OneTouch Yes Michael TEST BLOOD Common Ultra Test Ultra Test [place] GLUCOSE Spirit FOUR TIMES - CHI A DAY [facility] ProAir HFA ProAir HFA Yes Michael 2 puffs as Common [place] needed [facility] Lipitor Lipitor Yes Michael 1 tablet Com mon [place] [facility] Gabapentin Gabapentin Yes Michael 1 tablet Common [place] [facility] Furosemide Furosemide Yes Michael 1 tablet Common [place] [facility] Lisinopril Lisinopril Yes Michael TAKE 1 Common [place] TABLET BY Spirit MOUTH ONCE - CHI A DAY [facility] Lexapro Lexapro Yes Michael TAKE 1 Commo n [place] TABLET BY Spirit MOUTH ONCE - CHI DAILY [facility] Plavix Plavix Yes Michael TAKE 1 Common [place] TABLET BY Spirit MOUTH ONCE - CHI DAILY [facility] Plavix Plavix Yes Michael 1 tablet Commo n [place] [facility] Furosemide Furosemide No Furosemide 80 MG [...] Dexcom G6 Dexcom G6 No Dexcom G6 Satellite Tv Technician - Satellite Tv Technician - Satellite Tv Technician - Dexcom G6 Dexcom G6 No Dexcom [...] Dexcom G6 Dexcom G6 No Dexcom G6 Satellite Tv Technician - Satellite Tv Technician - Satellite Tv Technician - Dexcom G6 Dexcom G6 No Dexcom [...] Dexcom G6 Dexcom G6 No Dexcom G6 Satellite Tv Technician - Satellite Tv Technician - Satellite Tv Technician - Dexcom G6 Dexcom G6 No Dexcom [...] Dexcom G6 Dexcom G6 No Dexcom G6 Satellite Tv Technician - Satellite Tv Technician - Satellite Tv Technician - Dexcom G6 Dexcom G6 No Dexcom [...] Dexcom G6 Dexcom G6 No Dexcom G6 Satellite Tv Technician - Satellite Tv Technician - Satellite Tv Technician - Dexcom G6 Dexcom G6 No Dexcom [...] Dexcom G6 Dexcom G6 No Dexcom G6 Satellite Tv Technician - Satellite Tv Technician - Satellite Tv Technician - Dexcom G6 Dexcom G6 No Dexcom [...] Dexcom G6 Dexcom G6 No Dexcom G6 Satellite Tv Technician - Satellite Tv Technician - Satellite Tv Technician - Carvedilol Carvedilol No Carvedilol 12.5 MG [...] Dexcom G6 Dexcom G6 No Dexcom G6 Satellite Tv Technician - Satellite Tv Technician - Satellite Tv Technician - Lipitor 80 Lipitor 80 No 1{table [...] Dexcom G6 Dexcom G6 No Dexcom G6 Satellite Tv Technician - Satellite Tv Technician - Satellite Tv Technician - Lipitor 80 Lipitor 80 No 1{table [...] Dexcom G6 Dexcom G6 No Dexcom G6 Satellite Tv Technician - Satellite Tv Technician - Satellite Tv Technician - Lipitor 80 Lipitor 80 No 1{table [...] Dexcom G6 Dexcom G6 No Dexcom G6 Satellite Tv Technician - Satellite Tv Technician - Satellite Tv Technician - traMADol traMADol No 1{table BID traMADol [...] Dexcom G6 Dexcom G6 No Dexcom G6 Satellite Tv Technician - Satellite Tv Technician - Satellite Tv Technician - traMADol traMADol No 1{table BID traMADol [...] Besylate 5 Besylate 5 MG MG MG Immunizations Ordered Immunization Filled Immunization Date Status Commen ts Source Name Name [address] [facility]21 Completed Co mmon Spirit Vaccine (Low Dose Vaccine (Low Dose 15:39:00 [facility] 2021-05-21 Completed Co mmon Spirit Vaccine (Low Dose Vaccine (Low Dose 15:39:00 [facility] [address] [facility] 2021-05-21 Completed Co mmon Spirit Vaccine (Low Dose Vaccine (Low Dose 15:39:00 - [facility] Booster[facility] Booster) [facility] COVID[address] [facility] 2021-05-21 Completed Co mmon Spirit Vaccine (Low Dose Vaccine (Low Dose 15:39:00 - [facility] Booster) Booster) [facility] COVID[address] [facility] 2021-05-21 Completed Co mmon Spirit Vaccine (Low Dose Vaccine (Low Dose 15:39:00 - [facility] Booster) Booster) [facility] COVID[address] [facility] 2021-05-21 Completed Co mmon Spirit Vaccine (Low Dose Vaccine (Low Dose 15:39:00 - [facility] Booster) Booster) [facility] COVID[address] [facility] 2021-05-21 Completed Co mmon Spirit Vaccine (Low Dose Vaccine (Low Dose 15:39:00 - [facility] Booster) Booster) [facility] COVID[address] [facility] 2021-05-21 Completed Co mmon Spirit Vaccine (Low Dose Vaccine (Low Dose 15:39:00 - [facility] Booster) Booster) [facility] COVID[address] [facility] 2021-05-21 Completed Co mmon Spirit Vaccine (Low Dose Vaccine (Low Dose 15:39:00 - [facility] Booster) Booster) [facility] COVID[address] [facility] 2021-05-21 Completed Co mmon Spirit Vaccine (Low Dose Vaccine (Low Dose 15:39:00 - [facility] Booster) Booster) [facility] COVID[address] [facility] 2021-05-21 Completed Co mmon Spirit Vaccine (Low Dose Vaccine (Low Dose 15:39:00 - [facility] Booster) Booster) [facility] COVID[address] [facility] 2021-05-21 Completed Co mmon Spirit Vaccine (Low Dose Vaccine (Low Dose 15:39:00 - [facility] Booster) Booster) [facility] COVID[address] [facility] 2021-05-21 Completed Co [facility] Spirit Vaccine (Low Dose Vaccine (Low Dose 15:39:00 - [facility] Booster) Booster) [facility] Moderna COVID-19 Moderna COVID-19 2021-05-21 Completed Co mmon Spirit Vaccine (Low Dose Vaccine (Low Dose 15:39:00 [facility] Booster) Booster) [facility] COVID-19 Vaccine COVID-19 Vaccine 2020-08-28 Completed Co mmon Spirit (Aidan) (Aidan) 14:58:00 [facility] COVID-19 Vaccine COVID-19 Vaccine 2020-08-28 Completed Co [facility]mon Spirit (Aidan) (Aidan) 14:58:00 [facility] COVID-19 Vaccine COVID-19 Vaccine 2020-08-28 Completed Co [facility] (Aidan) (Aidan) 14:58:00 [facility] COVID-19 Vaccine COVID-19 Vaccine 2020-08-28 Completed [facility] (Aidan) (Aidan) 14:58:00 [facility] COVID-19 Vaccine COVID-19 Vaccine 2020-08-28 Completed [facility] (Aidan) (Aidan) 14:58:00 [facility] COVID-19 Vaccine COVID-19 Vaccine 2020-08-28 Completed [facility] (Aidan) (Aidan) 14:58:00 [facility] COVID-19 Vaccine COVID-19 Vaccine 2020-08-28 Completed [facility] (Aidan) (Aidan) 14:58:00 [facility] COVID-19 Vaccine COVID-19 Vaccine 2020-08-28 Completed [facility] (Aidan) (Aidan) 14:58:00 [facility] COVID-19 Vaccine COVID-19 Vaccine 2020-08-28 Completed [facility] (Aidan) (Aidan) 14:58:00 [facility] COVID-19 Vaccine COVID-19 Vaccine 2020-08-28 Completed Co [facility] (Aidan) (Aidan) 14:58:00 [facility] COVID-19 Vaccine COVID-19 Vaccine 2020-08-28 Completed Co [facility] Spirit (Aidan) (Aidan) 14:58:00 [facility] COVID-19 Vaccine COVID-19 Vaccine 2020-08-28 Completed Co mmon Spirit (Aidan) (Aidan) 14:58:00 - [facility] COVID-19 Vaccine COVID-19 Vaccine 2020-08-28 Completed Co mmon Spirit (Aidan) (Aidan) 14:58:00 - [facility] COVID-19 Vaccine COVID-19 Vaccine 2020-08-28 Completed Co mmon Spirit (Aidan) (Aidan) 14:58:00 - [facility] Vital Signs Vital Name Observation Time Observation Value Comments Source Systolic blood 2022-10-05 14:32:00 94 mm[Hg] [facility] Diastolic blood 2022-10-05 14:32:00 54 mm[Hg] Unive rsity of [facility] Heart rate 2022-10-05 14:32:00 62 /min [facility] Body height 2022-10-05 14:32:00 180.3 cm [facility] Body weight 2022-10-05 14:32:00 127.914 kg [facility] BMI 2022-10-05 14:32:00 39.33 kg/m2 [facility] Oxygen saturation in 2022-10-05 14:32:00 97 /min [facility] Arterial blood by [facility] Pulse oximetry Branch height 2022-05-27 14:00:00 71 [in_i] [facility] weight 2022-05-27 14:00:00 271.4 [lb_av] [facility] temperature 2022-05-27 14:00:00 97.9 [degF] [facility] bmi 2022-05-27 14:00:00 37.85 kg/m2 Common S pirit [facility] blood pressure 2022-05-27 14:00:00 128 mm[Hg] [facility] - systolic [facility] blood pressure 2022-05-27 14:00:00 76 mm[Hg] [facility] - diastolic [facility] height 2022-05-25 15:30:00 71 [in_i] Common [facility] weight 2022-05-25 15:30:00 271.1 [lb_av] Common [facility] - [facility] temperature 2022-05-25 15:30:00 97.6 [degF] Common [facility] bmi 2022-05-25 15:30:00 37.81 kg/m2 Common S [facility] oximetry 2022-05-25 15:30:00 97 % Common S [facility] respiratory rate 2022-05-25 15:30:00 17 /min Comm on [facility] blood pressure 2022-05-25 15:30:00 139 mm[Hg] Common [facility] - systolic [facility] blood pressure 2022-05-25 15:30:00 65 mm[Hg] Common [facility] - diastolic [facility] height 2022-03-19 15:00:00 71 [in_i] [facility] weight 2022-03-19 15:00:00 272.6 [lb_av] [facility] temperature 2022-03-19 15:00:00 97.6 [degF] Common [facility] bmi 2022-03-19 15:00:00 38.02 kg/m2 [facility] oximetry 2022-03-19 15:00:00 95 % [facility] S [facility] respiratory rate 2022-03-19 15:00:00 16 /min Comm on [facility] blood pressure 2022-03-19 15:00:00 129 mm[Hg] Common [facility] systolic [facility] blood pressure 2022-03-19 15:00:00 74 mm[Hg] Common [facility] diastolic [facility] Procedures Procedure Date / Time Performed Performing Clinician Felicitas FRANCO 2023-01-12 22:16:44 Layla Torres [facility] REFERRAL- 2022-09-29 05:01:00 Doctor Unassigned, No [facility] [place] REQUEST/RESPONSE Name Medical Branch REFERRAL- 2020-12-09 05:01:00 Doctor Unassigned, No Univer [facility]ity [facility] REQUEST/RESPONSE Name Medical Branch MR ORBIT W WO CONTRAST 2020-04-11 17:19:58 Requisition, Paper [facility] [place] [facility] MR BRAIN W WO CONTRAST 2020-04-11 17:18:18 Requisition, Paper [facility] [place] [facility] ASSIGNMENT OF BENEFITS 2020-04-11 15:07:27 Doctor Unassigned, No [facility] Medical Branch Encounters Start End Encounter Admission Attending Care Care Encounter Source Date/Time Date/Time Type Type Clinicians Facility Department ID 2023-01-11 Outpatient [facility] [id number] [place] 09:49:33 [id number] [facility] 2022-12-30 Outpatient [facility] [id number] MS 15:59:42 [id number] [facility] 2022-11-18 Outpatient [facility] [id number] MS 14:53:[id number] [place] [address] 2022-08-21 Outpatient [place], STLMLC STLMLC [id number] Common 08:13:00 [facility] [address] [facility] 2022-08-20 Outpatient [place], STLMLC STLMLC [id number] Common 15:42:00 [facility] [id number] [facility] 2022-05-27 Outpatient [place], STLMLC STLMLC [id number] Common 13:34:01 [facility] [address] [facility] 2022-05-21 Outpatient [place], STLMLC STLMLC [id number] Common 14:12:00 [facility] [id number] [facility] 2022-04-28 Outpatient [place], STLMLC STLMLC [id number] Common 15:58:01 [facility] [id number] [facility] 2022-04-20 Outpatient [place], STLMLC STLMLC [id number] Common 12:08:00 [facility] [id number] [facility] 2022-04-09 Outpatient [place], STLMLC STLMLC [id number] Common 09:12:00 [facility] [id number] [facility] 2022-03-23 Outpatient [place], STLMLC STLMLC [id number] Common 07:50:00 [facility] [id number] [facility] 2021-12-18 Outpatient [place], STLMLC STLMLC [id number] Common 08:02:00 Michael [facility] 2021-08-11 Outpatient [place], STLMLC STLMLC [id number] Common 16:05:00 Michael [facility] 2021-07-14 Outpatient [place], STLMLC STLMLC [id number] Common 13:55:00 Michael [facility] 2021-07-09 Outpatient [place], STLMLC STLMLC [id number] Common 14:23:13 Michael [facility] 2021-07-09 Outpatient [place], STLMLC STLMLC [id number] Common 14:22:30 Michael [id number] [facility] 2021-07-09 Outpatient [place], STLMLC STLMLC [id number] Common 13:29:39 Michael [id number] [facility] 2021-07-09 Outpatient [place], STLMLC STLMLC [id number] Common 13:26:23 Michael [id number] [facility] 2021-07-09 Outpatient [place], STLMLC STLMLC [id number] Common 13:17:32 Michael [address] [facility] 2021-07-09 Outpatient [place], STLMLC STLC [id number] Common 13:06:07 Michael [id number] [facility] 2021-07-09 Outpatient [place], STLMLC STLMLC [id number] Common 13:02:38 Michael [id number] [facility] 2021-07-09 Outpatient Grullon, STLMLC STLMLC [id number] Common 13:01:30 Michael [id number] [facility] 2021-07-09 Outpatient [place], STLMLC STLMLC [id number] Common 12:41:52 Michael [id number] [facility] 2021-07-09 Outpatient [place], STLMLC STLMLC [id number] Common 12:41:22 Michael [id number] [facility] 2021-07-09 Outpatient Grullon, STLMLC [facility] [id number] Common 12:40:21 Michael [id number] [facility] 2021-07-09 Outpatient Grullon, STLMLC [facility] [id number] Common 12:09:50 Michael 83874 [facility] 2021-07-09 Outpatient [place]ullon, STLMLC [facility] [id number] Common 12:08:25 Michael [id number] [facility] 2021-07-09 Outpatient [place]ullon, STLMLC [facility] [id number] Common 12:07:24 Michael [id number] [facility] 2021-07-09 Outpatient Grullon, STLMLC [facility] [id number] Common 11:39:10 Michael [id number] [facility] 2021-07-09 Outpatient [place], [facility] [id number] Common 11:27:55 Michael [id number] [facility] 2021-07-09 Outpatient Grullon, [facility] [id number] Common 11:20:48 Michael [id number] [facility] 2021-07-09 Outpatient Grullon, [facility] [id number] Common 11:15:28 Michael [id number] [facility] 2023-01-11 2023-01-11 Ancillary AMMON Torres [id number] [id number] MS 10:00:00 11:00:05 Procedure Layla PURI [id number] [facility] 9.2.7.2.686 [id number] 2022-12-28 2022-12-28 Outpatient ALEJO SCHAEFER [facility] [id number] Univers 14:40:00 14:40:00 ALEJO ARZATE rai [facility] 2022-12-14 2022-12-14 Outpatient ALEJO SCHAEFER [facility] [id number] Univers 15:40:00 15:40:00 ALEJO ARZATE [facility] 2022-12-10 2022-12-[address] [facility] 1.2.840.114 [id number] Univers 00:00:00 00:00:00 [facility] [id number] ity of [facility] 4.2.7.2.686 Nolan as AIDAN?BLEA [id number] [address] MEDICAL OFFICE BUILDING 2022-11-10 2022-11-[address] [facility] 1.2.840.114 [id number] Univers 00:00:00 00:00:00 [facility] [id number] ity of [place] 4.2.7.2.686 Nolan as AIDAN?BLEA [id number] [address] OFFICE [facility] 2022-10-05 2022-10-05 Outpatient R ALEJO ARZATE [facility] [id number] Univers 09:20:00 10:23:04 ALEJO ARZATE ity of [facility] 2022-10-05 2022-10-[address] [facility] 1.2.840.114 [id number] Univers 09:20:00 10:23:04 Visit [facility] [id number] ity of [place] 4.2.7.2.686 Nolan as AIDAN?BLEA [phone] [address] OFFICE [facility] 2022-09-29 2022-09-29 Orders Doctor EVELYN 1.2.840.114 [id number] Univers 00:00:00 00:00:00 Only Unassigned, KAMALJIT 350.1.13.10 ity of [place] [facility] 4.2.7.2.686 Nolan as [phone] [address] 2022-07-22 2022-07-22 Outpatient NIK Neves OUTD [id number] [facility] 05:25:00 05:25:00 Keyur 26 [facility] 2022-07-22 2022-07-22 (TEL) [facility] [id number] Co mmon 00:00:00 00:00:00 [facility] 2022-07-13 2022-07-13 (TEL) [facility] [id number] Co mmon 00:00:00 00:00:00 [facility] 2022-06-30 2022-06-30 (TEL) STLMLC STLMLC [id number] Co mmon 00:00:00 00:00:00 [facility] 2022-06-24 2022-06-24 (TEL) STLMLC STLMLC [id number] Co mmon 00:00:00 00:00:00 [facility] 2022-06-16 2022-06-16 (TEL) STLMLC STLMLC [id number] Co mmon 00:00:00 00:00:00 [facility] 2022-06-02 2022-06-02 (TEL) STLMLC STLMLC [id number] Co mmon 00:00:00 00:00:00 [facility] 2022-05-27 2022-05-27 OFFICE STLMLC STLMLC [id number] Co mmon 00:00:00 00:00:00 VISIT EST Spir it PT LEVEL 3 [facility] 2022-05-25 2022-05-25 OFFICE STLMLC STLMLC [id number] Co mmon 00:00:00 00:00:00 VISIT [facility] PT [facility] LEVEL 4 [facility] 2022-04-28 2022-04-28 (TEL) STLMLC STLMLC [id number] Co mmon 00:00:00 00:00:00 [facility] 2022-04-09 2022-04-09 (TEL) STLMLC STLMLC [id number] Co mmon 00:00:00 00:00:00 [facility] 2022-04-09 2022-04-09 (TEL) STLMLC STLMLC [id number] Co mmon 00:00:00 00:00:00 [facility] 2022-04-06 2022-04-06 (TEL) STLMLC STLMLC [id number] Co mmon 00:00:00 00:00:00 [facility] 2022-03-27 2022-03-27 (TEL) STLMLC STLMLC [id number] Co mmon 00:00:00 00:00:00 [facility] 2022-03-19 2022-03-19 OFFICE STLMLC STLMLC [id number] Co mmon 00:00:00 00:00:[address] [facility] 4 [facility] 2021-12-31 2021-12-31 ambulatory STLMLC STLMLC [id number] Common 00:00:00 00:00:00 [facility] 2021-12-31 2021-12-31 ambulatory STLMLC STLMLC [id number] Common 00:00:00 00:00:00 [facility] 2021-12-23 2021-12-23 ambulatory STLMLC STLMLC [id number] Common 00:00:00 00:00:00 [facility] 2021-12-22 2021-12-22 ambulatory STLMLC STLMLC [id number] Common 00:00:00 00:00:00 [facility] 2021-12-17 2021-12-17 ambulatory STLMLC STLMLC [id number] Common 00:00:00 00:00:00 [facility] 2021-11-21 2021-11-21 ambulatory STLMLC STLMLC [id number] Common 00:00:00 00:00:00 [facility] 2021-09-03 2021-09-03 ambulatory STLMLC STLMLC [id number] Common 00:00:00 00:00:00 [facility] 2021-09-03 2021-09-03 ambulatory STLMLC STLMLC [id number] Common 00:00:00 00:00:00 [facility] 2021-07-14 2021-07-14 ambulatory STLMLC STLMLC [id number] Common 00:00:00 00:00:00 [facility] 2021-07-07 2021-07-07 ambulatory STLMLC STLMLC [id number] Common 00:00:00 00:00:00 [facility] 2021-06-10 2021-06-10 ambulatory STLMLC STLMLC [id number] Common 00:00:00 00:00:00 [facility] 2021-05-21 2021-05-21 ambulatory STLMLC STLMLC [id number] Common 00:00:00 00:00:00 [facility] 2021-05-21 2021-05-21 ambulatory STLMLC STLMLC [id number] Common 00:00:00 00:00:00 [facility] 2021-05-14 2021-05-14 ambulatory STLMLC STLMLC [id number] Common 00:00:00 00:00:00 [facility] 2021-05-12 2021-05-12 ambulatory STLMLC STLMLC [id number] Common 00:00:00 00:00:00 [facility] 2021-04-07 2021-04-07 ambulatory STLMLC STLMLC [id number] Common 00:00:00 00:00:00 [facility] 2021-03-18 2021-03-18 Outpatient STLMLC STLMLC [id number] Common 00:00:00 00:00:00 [facility] 2021-03-17 2021-03-17 Outpatient STLMLC STLMLC [id number] Common 00:00:00 00:00:00 [facility] 2021-01-16 2021-01-16 EVELYN Anna 1.2.840.114 [id number] Univers 00:00:00 00:00:00 (Out) [facility] 350.1.13.10 [facility] 4.2.7.2.686 Nolan as [phone] [place] [address] [address] 2021-01-15 2021-01-15 Outpatient STLMLC STLMLC [id number] Common 00:00:00 00:00:00 [facility] 2021-01-15 2021-01-15 Outpatient STLMLC STLMLC [id number] Common 00:00:00 00:00:00 [facility] 2021-01-15 2021-01-15 Outpatient STLMLC STLMLC [id number] Common 00:00:00 00:00:00 [facility] 2021-01-14 2021-01-14 Outpatient STLMLC STLMLC [id number] Common 00:00:00 00:00:00 [facility] 2020-12-31 2020-12-31 Outpatient STLMLC STLMLC [id number] Common 00:00:00 00:00:00 [facility] 2020-12-09 2020-12-09 Orders Doctor EVELYN 1.2.840.114 [id number] Univers 00:00:00 00:00:00 Only Unassigned, KAMALJIT 350.1.13.10 ity of [facility] 4.2.7.2.686 Nolan as [phone] [place] [address] [address] 2020-12-02 2020-12-02 Outpatient STLMLC STLMLC [id number] Common 00:00:00 00:00:00 [facility] 2020-12-02 2020-12-02 Outpatient STLMLC STLMLC [id number] Common 00:00:00 00:00:00 [facility] 2020-11-18 2020-11-18 Outpatient STLMLC STLMLC [id number] Common 00:00:00 00:00:00 [facility] 2020-11-05 2020-11-05 Outpatient STLMLC STLMLC [id number] Common 00:00:00 00:00:00 [facility] 2020-11-04 2020-11-04 Outpatient STLMLC STLMLC [id number] Common 00:00:00 00:00:00 [facility] 2020-10-25 2020-10-25 Outpatient STLMLC STLMLC [id number] Common 00:00:00 00:00:00 [facility] 2020-10-16 2020-10-16 Outpatient STLMLC STLMLC [id number] Common 00:00:00 00:00:00 [facility] 2020-10-15 2020-10-15 Outpatient STLMLC STLMLC [id number] Common 00:00:00 00:00:00 [facility] 2020-10-15 2020-10-15 Outpatient STLMLC STLMLC [id number] Common 00:00:00 00:00:00 [facility] 2020-09-26 2020-09-26 Outpatient STLMLC STLMLC [id number] Common 00:00:00 00:00:00 [facility] 2020-08-28 2020-08-28 Outpatient STLMLC STLMLC [id number] Common 00:00:00 00:00:00 [facility] 2020-08-27 2020-08-27 Outpatient STLMLC STLMLC [id number] Common 00:00:00 00:00:00 [facility] 2020-05-14 2020-05-14 Outpatient STLMLC STLMLC [id number] Common 00:00:00 00:00:00 [facility] 2020-05-06 2020-05-06 Outpatient STLMLC STLMLC [id number] Common 00:00:00 00:00:00 [facility] 2020-04-11 2020-04-11 [facility] 1.2.840.114 [id number] 10:11:59 23:59:00 Encounter [place] 350.1.13.10 [place] 4.2.7.2.686 Addy [id number] [facility] 2020-04-11 2020-04-11 [facility] MSM[facility] 1.2.840.114 [id number] [facility] 10:11:59 23:59:00 Encounter Neola 350.1.13.10 ity of [place] 4.2.7.2.686 [facility] [phone] [address] 2020-04-11 2020-04-11 [facility] 1.2.840.114 [id number] 10:11:08 23:59:00 Encounter [place] 350.1.13.10 [place] 4.2.7.2.686 Addy [id number] [facility] 2020-04-11 2020-04-11 [facility] 1.2.840.114 [id number] Univers 10:11:08 23:59:00 Encounter [place]ola 350.1.13.10 ity of [place] 4.2.7.2.686 [facility] [id number] [facility] [address] 2020-04-11 2020-04-11 Outpatient R RADIOLOGY [facility] [id number] Univers 00:00:00 00:00:00 ity of [facility] 2020-04-11 2020-04-11 Orders Doctor EVELYN 1.2.840.114 [id number] 00:00:00 00:00:00 Only Unassigned, KAMALJIT 350.1.13.10 [place] [facility] 4.2.7.2.686 [id number] [id number] 2020-04-11 2020-04-11 Orders Doctor EVELYN 1.2.840.114 [id number] Univers 00:00:00 00:00:00 Only Unassigned, KAMALJIT 350.1.13.10 ity of [place] [facility] 4.2.7.2.686 [facility] [phone] [facility] [address] 2020-02-07 2020-02-07 [facility] [id number] Common 11:20:00 11:20:[address] [facility] 2020-01-29 2020-01-29 [facility] [id number] Common 11:40:00 11:40:[address] [facility] 2020-01-16 2020-01-16 [facility] [id number] Common 11:15:00 11:15:[address] [facility] 2019-12-04 2019-12-04 [facility] [id number] Common 10:50:00 10:50:[address] [facility] 2019-11-08 2019-11-08 [facility] [id number] Common 15:00:00 15:00:[address] [facility] 2019-11-08 2019-11-08 [facility] [id number] Common 14:15:00 14:15:[address] [facility] 2019-10-27 2019-10-27 [facility] [id number] Common 11:15:00 11:15:[address] [facility] 2019-10-24 2019-10-24 [facility] [id number] Common 16:04:00 16:04:[address] [facility] [address] [facility] 2019-10-20 2019-10-20 [facility] [id number] Common 13:40:00 13:40:[address] [facility] [address] [facility] 2019-10-18 2019-10-18 [facility] [id number] Common 14:05:00 14:05:[address] [facility] 2019-09-21 2019-09-21 [facility] [id number] Common 16:45:00 16:45:[address] [facility] 2019-09-05 2019-09-05 [facility] [id number] Common 10:30:00 10:30:[address] [facility] 2019-08-08 2019-08-08 [facility] [id number] Common 15:00:00 15:00:[address] [facility] 2019-07-26 2019-07-26 [facility] [id number] Common 16:37:00 16:37:[address] [facility] 2019-06-22 2019-06-22 [facility] [id number] Common 14:45:00 14:45:[address] [facility] 2019-06-19 2019-06-19 [facility] [id number] Common 15:45:00 15:45:[address] [facility] 2019-05-31 2019-05-31 [facility] [id number] Common 15:15:00 15:15:[address] [facility] 2019-05-03 2019-05-03 [facility] [id number] Common 10:37:00 10:37:[address] [facility] 2019-04-17 2019-04-17 [facility] [id number] Common 14:08:00 14:08:[address] [facility] 2019-04-17 2019-04-17 [facility] [id number] Common 13:30:00 13:30:[address] [facility] 2019-03-28 2019-03-28 [facility] [id number] Common 14:44:00 14:44:[address] [facility] 2019-03-23 2019-03-23 [facility] [id number] Common 14:15:00 14:15:[address] [facility] 2019-03-02 2019-03-02 [facility] [id number] Common 15:10:00 15:10:[address] [facility] 2019-02-23 2019-02-23 [facility] [id number] Common 10:00:00 10:00:[address] [facility] 2019-01-20 2019-01-20 [facility] [id number] Common 13:43:00 13:43:[address] [facility] 2018-12-29 2018-12-29 [facility] [id number] Common 14:42:00 14:42:[address] [facility] 2018-12-21 2018-12-21 [facility] [id number] Common 14:30:00 14:30:[address] [facility] 2018-12-06 2018-12-06 [facility] [id number] Common 14:04:00 14:04:[address] [facility] 2018-10-10 2018-10-10 [facility] [id number] Common 15:00:00 15:00:[address] [facility] 2018-09-16 2018-09-16 [facility] [id number] Common 11:25:00 11:25:[address] [facility] 2018-09-12 2018-09-12 [facility] [id number] Common 14:15:00 14:15:[address] [facility] 2018-08-11 2018-08-11 [facility] [id number] Common 13:45:00 13:45:[address] [facility] 2018-06-21 2018-06-21 [facility] [id number] Common 10:15:00 10:15:[address] [facility] 2018-05-30 2018-05-30 [facility] [id number] Common 10:28:00 10:28:[address] [facility] 2018-03-16 2018-03-16 [facility] [id number] Common 15:07:00 15:07:[address] [facility] 2018-03-14 2018-03-14 [facility] [id number] Common 15:00:00 15:00:[address] [facility] 2018-02-28 2018-02-28 [facility] [id number] Common 16:46:00 16:46:[address] [facility] 2018-02-11 2018-02-11 [facility] [id number] Common 09:17:00 09:17:[address] [facility] 2018-02-04 2018-02-04 [facility] [id number] Common 14:14:00 14:14:[address] [facility] 2018 2018 [facility] [id number] Common 15:57:00 15:57:[address] [facility] 2018-01-12 2018-01-12 [facility] [id number] Common 14:34:00 14:34:[address] [facility] 2018-01-10 2018-01-10 [facility] [id number] Common 15:15:00 15:15:[address] [facility] 2017-11-22 2017-11-22 [facility] [id number] Common 09:36:00 09:36:[address] [facility] 2017-11-10 2017-11-10 [facility] [id number] Common 13:30:00 13:30:[address] [facility] 2017-09-29 2017-09-29 [facility] [id number] Common 13:00:00 13:00:[address] [facility] Results Test Description Test Time Test Comments Results Result Comments Source GLUCOSE BEDSIDE 2022-07-22 16:51:00 Test Item Value Reference Range Interpretation Comme nts GLUCOSE BEDSIDE (test code = 314 MG/DL 70-110 H Performed by certified hot head machine operator at [facility]) [facility] GLUCOSE [id number] 15:39:00 Test Item Value Reference Range Interpretation Comments GLUCOSE BEDSIDE (test 308 MG/DL 70-110 H Perfor med by certified code = GLUBED) hot head machine operator at [facility] GLUCOSE [id number] 14:43:00 Test Item Value Reference Range Interpretation Comments GLUCOSE BEDSIDE (test 371 MG/DL 70-110 H Perfor med by certified code = GLUBED) hot head machine operator at [facility] GLUCOSE [id number] 13:47:00 Test Item Value Reference Range Interpretation Comments GLUCOSE BEDSIDE (test 379 MG/DL 70-110 H Perfor med by certified code = GLUBED) hot head machine operator at [facility] GLUCOSE [id number] 12:54:00 Test Item Value Reference Range Interpretation Comments GLUCOSE BEDSIDE (test 391 MG/DL 70-110 H Perfor med by certified code = GLUBED) hot head machine operator at [facility] [id number] 12:19:00 Test Item Value Reference Range Interpretation Comments ACT-ISTAT (test code 311 SEC 74-137 H Perform ed by certified = ACTI) hot head machine operator at [facility] GLUCOSE [id number] 11:27:00 Test Item Value Reference Range Interpretation Comments GLUCOSE BEDSIDE (test 325 MG/DL 70-110 H Perfor med by certified code = GLUBED) hot head machine operator at [facility] BASIC METABOLIC [id number] 15:15:00 Test Item Value Reference Range Interpretation [...] the recommended for [place] for GFRby the [facility] for Adults.The GFR will not calculate if th e sex is unknown or if thepatient's ag e is <18 years. CREATININE (test 1.1 mg/dL 0.6-1.3 N code = CREAT) CALCIUM (test code = 9.3 mg/dL 8.0-10.5 N CA) PROTHROMBIN [id number] 15:09:00 Test Item Value Reference Range Interpretation [...] (to prevent recurrent infar ct). 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 Pleural spaces: Unremarkable. No pleural effusion. No pneumothorax. Heart/Mediastinum: The cardiac silhouette is slightly enlarged. The pulmonary vasculature is normal. The mediastinal contour is normal. The trachea is midline. Bones/joints: There are old bilateral rib fractures. IMPRESSION: No acute cardiopulmonary findings. at 1534 Reported and signed by: Tera Espinoza M.D.CC: Keyur Bonds MD; Sydni Serna NP Technologist: FELICITA Renner) Trnscrd Date/Time/By:07/20/2022 (1904) : By: SamiaTDO Orig Print D/T: S: 07/20/2022 (0359) PAGE 1 Signed ReportMR ORBIT W WO [id number] 18:04:12 Patient motion degrades image quality, mildly [...] to patientmotion.Remote, lacunar infarct of the right hemipons.[facility] W WO [id number] 18:04:12 Patient motion degrades image quality, mildly [...] is unremarkable. No orbital mass is present. [facility], Radiant Results Inft User - 04/11/2020 [...] to patientmotion.Remote, lacunar infarct of the right hemipons.[facility] Notes Date/Time Note Provider Source 2022-07-22 12:56:00-00:00 [id number] [place] [id number] PATIENT NAME: DEXTER WEBSTER ADMIT DATE: 02/03 ACCOUNT NO: [id number] ROOM NO: AGE: 57 REPORT TYPE: eELECTROCARDIOGRAM REPORT SEX: M ADMITTING PHYSICIAN: ATTENDING PHYSICIAN:Keyur Bonds MD Order: [id number] Test Reason : PCI Test Date/Time Stamp: [...] 07/15 at 0506 PATIENT NAME: DEXTER WEBSTER [id number] 2022-07-22 12:38:00-00:00 [id number] [place] 582028 PATIENT NAME: DEXTER WEBSTER ADMIT DATE: 02/03 ACCOUNT NO: [id number] ROOM NO: AGE: 57 REPORT TYPE: CARDIAC CATHETERIZATION REPORT SEX: M ADMITTING PHYSICIAN: ATTENDING PHYSICIAN:Keyur Bonds MD PROCEDURE DATE: 07/22/2022 PROCEDURE PERFORMED: 1. Selective coronary angiogram. 2. PCI of severe mid RCA stenosis, used a 2.75 x 20 mm Synergy drug-eluting stent. ACCESS: Right femoral artery, 6-Romanian closed wi th 6-Romanian Angio-Seal. COMPLICATIONS: None. BLEEDING: Less than 20 [...] as ultraso und guidance and placed a 6-Romanian [place] sheath and I took a 6-Romanian J L4 catheter to aortic root, engaged the left main, took standard views and 6 -Romanian JR4 guide with side holes engaged the [...] and removed the sheath and placed a 6-Romanian Angio-Seal for clos ure with good hemostasis. The patient tolerated the procedure very well and he was already l oaded with Plavix and aspirin earlier. FINDINGS: 1. Left main: Large and normal. 2. LAD: Large patent proximal to mid LAD stent and then the LAD has diffuse 10% to [...] artery disease elsewhere. PATIENT NAME: DEXTER WEBSTER ACCOUNT #: [id number] RECOMMENDATIONS: Aspirin, Plavix and high dose s tatin and plan for a cardiac risk factor modification. Dictated By: Keyur Bonds MD Date Dictated: 07/22/2022 12:38:06 Date Transcribed: 07/22/2022 13:20:51 /CISCO Receipt ID: [id number] Authenticated by Keyur Bonds MD On 09/16/2022 02:27:05 PM Electronically Signed by Keyur Bonds MD on at 0227 PATIENT NAME: DEXTER WEBSTER [id number] 2022-07-20 14:57:00-00:00 [id number] [address] PATIENT NAME: DEXTER WEBSTER ADMIT DATE: ACCOUNT NO: [id number] ROOM NO: AGE: 57 REPORT TYPE: eELECTROCARDIOGRAM REPORT SEX: M ADMITTING PHYSICIAN: ATTENDING PHYSICIAN:Keyur Bonds MD Order: [id number] Test Reason : PREOP Test Date/Time Stamp: [...] Keyur Bonds Confirmed by:ULISES PALACIOS MD at [id number] PATIENT NAME: DEXTER WEBSTER [id number]
[2023-01-12 20:23] LABS: Absolute Lymphocytes (CBC) 1.8 K/uL (0.7-4.9); Hematocrit 31.9 % (39.6-49.0); Lymphocytes % 17.5 % (15.3-44.8); MCV 87.6 fL (80-100); MPV 6.9 fL (7.6-11.3); Platelets 314 thou/uL (152-406); RBC Red Blood Cell Count 3.65 M/uL (4.33-5.43)
[2023-01-12 20:31] LABS: Protime INR 1.15
--- NOTE | 2023-01-12 20:45 | EDPHYS ---
Physician Documentation [facility] Name: Tripp Webster Age: 57 yrs Sex: Male : 1965 Arrival Date: 01/12/2023 Time: 19:33 Bed 2 Private MD: ED Physician Kenn Yap HPI: 01/12 20:05 This 57 yrs old Male presents to ER via Wheelchair with complaints of Chest sp4 Pain, Wound Infection. 20:05 57-year-old male with history of chronic left foot great toe diabetic foot ulcer, sp4 presents with EMS with worsening left great toe ulcer and also complaining of a cute onset of chest pain just prior to arrival.. 20:30 Patient's general surgeon is Dr. Yasir Lopez. Dr. Lopez was contacted and he sp4 requested patient is to be admitted to the hospital for IV antibiotic therapy with vancomycin and Zosyn. Also n.p.o. after midnight in preparation for ulcer debridement in the operating room. Patient states his chest pain is probably anxiety related but he does have history of coronary artery disease.. . [facility] report 06/08/2022 - Procedures Performed: 1. Selective coronary angiogram. 2. Left heart catheterization. 3. FFR of proximal left anterior descending which was significant at 0.79. 4. Percutaneous coronary intervention of proximal left anterior descending. I used 3.0 x 28 mm Synergy drug-eluting stent. Indications: 1. Non-ST elevation myocardial infarction. 2. Acute congestive heart failure. Access: Right radial artery 6-[place] closed with TR band. Conclusions: 1. Severe proximal and mid LAD stenosis, status post FFR guided PCI of proximal LAD as outlined above. We will plan to stage the mid LAD PCI at a later time with anesthesia. 2. Patent left circumflex stent with moderate OM1 disease in between the stents. 3. There is severe mid RCA stenosis; however, it is a smaller vessel. Plan: 1. Aspirin, Plavix, and high-dose statin. 2. Staged PCI of mid to distal LAD stenosis and we will attempt also to do the RCA PCI, however, with anesthesia as the patient could not continue going today in this procedure and the contrast load was high. We will plan to do this in about 4 weeks post discharge. 3. Continue aspirin, Plavix, high-dose statin, and no further heparin is needed. 4. Aggressive diuresis, Lasix 40 mg IV q.8 hours. Monitor BUN, creatinine, electrolytes. SR/MODL Voice ID: [id number] . 20:37 Past medical history includes hypertension, insulin-dependent type 2 diabetes, coronary sp4 artery disease with prior stent, hyperlipidemia, diabetic neuropathy, obesity, sleep apnea, CVA, history of coronary stents x5, back surgery, bilateral vascular surgery, patient's medications include atorvastatin 80 mg bedtime, Neurontin 600 mg 4 times a day, aspirin 81 mg daily, carvedilol 12.5 mg p.o. twice daily, furosemide 80 mg p.o. daily, insulin NovoLog 36 units 4 times a day, insulin 70/30, acetaminophen, clopidogrel 75 mg daily, escitalopram 20 mg daily, lisinopril 30 mg twice a day.. Historical: - Allergies: 19:49 No Known Allergies; cm10 - PMHx: 19:49 CAD; depressive disorder; Diabetes - IDDM; neuropathy; Hypercholesterolemia; cm10 Hypertension; GERD; - PSHx: 19:49 cardiac stents; cm10 - Immunization history:: Adult Immunizations unknown. - Social history:: Smoking status: Patient denies any tobacco usage or history of. - Family history:: not pertinent. ROS: 20:33 Constitutional: Negative for fever, chills, and weight loss, Cardiovascular: Negative sp4 for palpitations, and edema, positive acute onset chest pain MS/Extremity: Negative for injury and deformity, positive left foot great toe necrotic pressure ulcer with associated redness and swelling distal left foot 20:33 All other systems are negative. Exam: 20:33 Constitutional: This is a well developed, well nourished patient who is awake, alert, sp4 and in no acute distress. Head/Face: Normocephalic, atraumatic. Eyes: Pupils equal round and reactive to light, extra-ocular motions intact. Lids and lashes normal. Conjunctiva and sclera are not injected. Cornea within normal limits. Periorbital areas with no swelling, redness, or edema. ENT: Nares patent. No nasal discharge, no septal abnormalities noted. Tympanic membranes are normal and external auditory canals are clear. Oropharynx with no redness, swelling, or masses, exudates, or evidence of obstruction, uvula midline. Mucous membranes moist. Neck: Trachea midline, no thyromegaly or masses palpated, and no cervical lymphadenopathy. Supple, full range of motion without nuchal rigidity, or vertebral point tenderness. Chest/axilla: Normal chest wall appearance and motion. Nontender with no deformity. No lesions are appreciated. Cardiovascular: Regular rate and rhythm with a normal S1 and S2. No gallops, murmurs, or rubs. Normal PMI, no JVD. No pulse deficits. Respiratory: Lungs have equal breath sounds bilaterally, clear to auscultation and percussion. No rales, rhonchi or wheezes noted. No increased work of breathing, no retractions or nasal flaring. Abdomen/GI: Soft, non-tender, with normal bowel sounds. No distension or tympany. No guarding or rebound. No evidence of tenderness throughout. Back: No spinal tenderness. No costovertebral tenderness. Skin: Warm, dry with normal turgor. Normal color with no rashes, no lesions, positive for left distal foot and left great toe cellulitis MS/ Extremity: Pulses equal, no cyanosis. Neurovascular intact. Full, normal range of motion. Positive for left great toe redness, pain, swelling also left great toe necrotic pressure ulcer to the medial side of the left great toe Neuro: Awake and alert, GCS 15, oriented to person, place, time, and situation. Cranial nerves II-XII grossly intact. Motor strength 5/5 in all extremities. Sensory grossly intact. Psych: Awake, alert, with orientation to person, place and time. Behavior, mood, and affect are within normal limits 20:33 ECG was reviewed by the Attending Physician. There is normal sinus rhythm, at rate of sp4 73, EKG time 2003, overall normal EKG no ectopy. Vital Signs: 19:46 BP 145 / 83; Pulse 80; Resp 18; Temp 98.6; Pulse Ox 98% ; Weight 122.47 kg; Height 5 cm10 ft. 11 in. ; 20:21 BP 133 / 46; Pulse 71; Resp 20; Pulse Ox 98% on R/A; jw7 22:07 BP 130 / 48; Pulse 73; Resp 19 S; Pulse Ox 98% on R/A; jw7 19:46 Body Mass Index 37.66 (122.47 kg, 180.34 cm) cm10 MDM: 20:10 Medical screening is not applicable. 4 20:37 Differential diagnosis: acute myocardial infarction, acute pericarditis, anxiety, sp4 coronary artery disease chest wall pain, congestive heart failure Left foot cellulitis, left foot pressure toe ulcer, left foot great toe osteomyelitis. HEART Score: History: Slightly Suspicious (0), ECG: Normal (0), Age: > 45 and < 65 years (1), Risk Factors: > or = 3 Risk factors for atherosclerotic disease (2), Troponin: < or = 1 x Normal Limit (0), Total Score = 3. The patient was not given aspirin in the Emergency Department. Patient reports taking aspirin within the past 24 hours. Data reviewed: vital signs, nurses notes, EMS record, old medical records, lab test result(s), EKG, radiologic studies, plain films. 20:37 ED course: Patient was discussed with admitting hospitalist who accepted patient for [facility] admission to Dr. Denise Hull. Dr. Yasir Lopez will be consulted as general surgeon. 01/12 20:03 Order name: Basic Metabolic Panel; Complete Time: 20:57 4 01/12 20:03 Order name: CBC with Diff; Complete Time: 20:36 4 01/12 20:03 Order name: LFT's; Complete Time: 20:57 4 01/12 20:03 Order name: Magnesium; Complete Time: 20:57 4 01/12 20:03 Order name: NT PRO-BNP; Complete Time: 20:57 4 01/12 20:03 Order name: PT-INR; Complete Time: 20:36 4 01/12 20:03 Order name: Troponin HS; Complete Time: 20:57 4 01/12 20:48 Order name: Wound Culture la1 01/12 20:03 Order name: XRAY Chest (1 view); Complete Time: 21:36 4 01/12 20:10 Order name: Foot Left 3 View XRAY; Complete Time: 21:36 4 01/12 20:03 Order name: EKG; Complete Time: 20:04 4 01/12 20:03 Order name: Cardiac monitoring; Complete Time: 20:20 4 01/12 20:03 Order name: EKG - Nurse/Tech; Complete Time: 20:08 4 01/12 20:03 Order name: IV Saline Lock; Complete Time: 20:20 sp4 01/12 20:03 Order name: Labs collected and sent; Complete Time: 20:20 sp4 01/12 20:03 Order name: O2 Per Protocol; Complete Time: 20:20 sp4 01/12 20:03 Order name: O2 Sat Monitoring; Complete Time: 20:20 sp4 EC:33 Rate is 73 beats/min. Rhythm is regular, Normal Sinus Rhythm. QRS [place] is Normal. [place] sp4 interval is normal. QRS interval is normal. QT interval is normal. T waves are Normal. No ST changes noted. Clinical impression: Normal ECG. Interpreted by me. Administered Medications: 21:37 Drug: Piperacillin-Tazobactam IVPB 3.375 grams Route: IVPB; Infused Over: 60 mins; jw7 Site: left upper arm; 22:26 Follow up: IV Status: Completed infusion; IV Intake: 100ml jw7 22:27 Follow up: Response: No adverse reaction jw7 21:37 Drug: morphine IVP or IV 4 mg Route: IVP; Infused Over: 4 mins; Site: left upper arm; jw7 22:17 Follow up: Response: No adverse reaction jw7 21:37 Drug: Ondansetron IVP 4 mg Route: IVP; Site: left upper arm; jw7 22:17 Follow up: Response: No adverse reaction jw7 21:37 Drug: Acetaminophen PO 1000 mg Route: PO; jw7 22:17 Follow up: Response: No adverse reaction jw7 21:38 Drug: NS 0.9% IV 1000 ml Route: IV; Rate: 125 ml/hr; Site: left upper arm; jw7 22:42 Follow up: Response: No adverse reaction; IV Status: Infusion continued upon admission; jw7 IV Intake: 200ml 22:27 Drug: vancoMYCIN IVPB 2 grams Route: IVPB; Rate: calculated rate; Site: left upper arm; jw7 22:42 Follow up: Response: No adverse reaction; IV Status: Infusion continued upon admission; jw7 IV Intake: 50ml Disposition Summary: 01/12/23 20:44 Hospitalization Ordered Hospitalization Status: Inpatient Ad[facility] sp4 Condition: Stable sp4 Problem: new sp4 Symptoms: have improved sp4 Bed/Room Type: Standard sp4 Provider: Kenneth Ochoa(01/12/23 20:46) la1 Room Assignment: 221(01/12/23 22:02) cg Diagnosis - Chest pain, unspecified sp4 - Personal history of diabetic foot ulcer sp4 - Left foot pressure ulcer with necrosis and left foot cellulitis, left foot sp4 cellulitis, left great toe cellulitis, diabetic neuropathy with neuropathic pain - Acute on chronic renal insufficiency sp4 Forms: - Medication Reconciliation Form sp4 - SBAR form sp4 Signatures: Dispatcher [employer] EDMS Julio C Cotter FNP-C AIR DISPATCHER-Cla1 Anya Horne RN RN cg Jimena Rivera RN RN jw7 Kenn Yap MD MD sp4 Minnie Lopez RN RN cm10 Corrections: (The following items were deleted from the chart) 20:36 20:33 Constitutional: This is a well developed, well nourished patient who is awake, sp4 alert, and in no acute distress. Head/Face: Normocephalic, atraumatic. Eyes: Pupils equal round and reactive to light, extra-ocular motions intact. Lids and lashes normal. Conjunctiva and sclera are not injected. Cornea within normal limits. Periorbital areas with no swelling, redness, or edema. ENT: Nares patent. No nasal discharge, no septal abnormalities noted. Tympanic membranes are normal and external auditory canals are clear. Oropharynx with no redness, swelling, or masses, exudates, or evidence of obstruction, uvula midline. Mucous membranes moist. Neck: Trachea midline, no thyromegaly or masses palpated, and no cervical lymphadenopathy. Supple, full range of motion without nuchal rigidity, or vertebral point tenderness. Chest/axilla: Normal chest wall appearance and motion. Nontender with no deformity. No lesions are appreciated. Cardiovascular: Regular rate and rhythm with a normal S1 and S2. No gallops, murmurs, or rubs. Normal PMI, no JVD. No pulse deficits. Respiratory: Lungs have equal breath sounds bilaterally, clear to auscultation and percussion. No rales, rhonchi or wheezes noted. No increased work of breathing, no retractions or nasal flaring. Abdomen/GI: Soft, non-tender, with normal bowel sounds. No distension or tympany. No guarding or rebound. No evidence of tenderness throughout. Back: No spinal tenderness. No costovertebral tenderness. Skin: Warm, dry with normal turgor. Normal color with no rashes, no lesions, and no evidence of cellulitis. MS/ Extremity: Pulses equal, no cyanosis. Neurovascular intact. Full, normal range of motion. Positive for left great toe redness, pain, swelling also left great toe necrotic pressure ulcer to the medial side of the left great toe Neuro: Awake and alert, GCS 15, oriented to person, place, time, and situation. Cranial nerves II-XII grossly intact. Motor strength 5/5 in all extremities. Sensory grossly intact. Psych: Awake, alert, with orientation to person, place and time. Behavior, mood, and affect are within normal limits sp4 20:46 20:44 Raven Hull sp4 la1 22:02 20:44 sp4 cg
--- NOTE | 2023-01-12 20:45 | ER ---
Nurse's Notes [facility] Name: Tripp Webster Age: 57 yrs Sex: Male : 1965 Arrival Date: 01/12/2023 Time: 19:33 Bed 2 Private MD: Diagnosis: Chest pain, unspecified;Personal history of diabetic foot ulcer;Left foot pressure ulcer with necrosis and left foot cellulitis, left foot cellulitis, left great toe cellulitis, diabetic neuropathy with neuropathic pain;Acute on chronic renal insufficiency Presentation: 01/12 19:46 Chief complaint: Patient states: chest pain to the center of his chest that has been on cm10 and of "for a while now". Pt states that he had the chest pain yesterday and took his last nitro. Pt reports that he has been taking nitro for his pain X3 and if no relief he will take 2 more. Pt states pain is worse when laying flat. Pt was sent over by Dr. Lopez for wound to left great toe that failed outpatient treatment. Coronavirus screen: Vaccine status: Patient reports receiving the 2nd dose of the covid vaccine. Ebola Screen: No symptoms or risks identified at this time. Initial Sepsis Screen: Does the patient meet any 2 criteria? No. Patient's initial sepsis screen is negative. Does the patient have a suspected source of infection? No. Patient's initial sepsis screen is negative. Risk Assessment: Do you want to hurt yourself or someone else? Patient reports no desire to harm self or others. Onset of symptoms was January 12, 2023. 19:46 Method Of Arrival: Wheelchair cm10 19:46 Acuity: MIRIAM 2 cm10 Historical: - Allergies: 19:49 No Known Allergies; cm10 - PMHx: 19:49 CAD; depressive disorder; Diabetes - IDDM; neuropathy; Hypercholesterolemia; cm10 Hypertension; GERD; - PSHx: 19:49 cardiac stents; cm10 - Immunization history:: Adult Immunizations unknown. - Social history:: Smoking status: Patient denies any tobacco usage or history of. - Family history:: not pertinent. Screenin:31 [facility] ED Fall Risk Assessment (Adult) History of falling in the last 3 months, jw7 including since admission No falls in past 3 months (0 pts) Confusion or Disorientation No (0 pts) Intoxicated or Sedated No (0 pts) Impaired Gait Yes (1 pt) Mobility Assist Device Used No (0 pt) Altered Elimination No (0 pt) Score/Fall Risk Level 0 - 2 = Low Risk Oriented to surroundings, Maintained a safe environment, Educated pt \\T\\ family on fall prevention, incl call for assistance when getting out of bed, Assessed \\T\\ reinforced patient's understanding of fall precautions, Hourly rounding (assess needs \\T\\ fall precautionary measures) done. Abuse screen: Denies threats or abuse. Nutritional screening: No deficits noted. Tuberculosis screening: No symptoms or risk factors identified. Assessment: 20:22 General: Appears in no apparent distress. comfortable, Behavior is calm, cooperative, jw7 appropriate for age. Pain: Complains of pain in chest Pain does not radiate. Pain began suddenly. Neuro: Level of Consciousness is awake, alert, obeys commands, Oriented to person, place, time, situation. Cardiovascular: Reports chest pain, Capillary refill < 3 seconds Patient's skin is warm and dry. Respiratory: Airway is patent Trachea midline Respiratory effort is even, unlabored, Respiratory pattern is regular, symmetrical. GI: No deficits noted. No signs and/or symptoms were reported involving the gastrointestinal system. : No deficits noted. No signs and/or symptoms were reported regarding the genitourinary system. Derm: Wound noted Wound is Diabetic foot ulcer to medial aspect of left greater toe. Vital Signs: 19:46 BP 145 / 83; Pulse 80; Resp 18; Temp 98.6; Pulse Ox 98% ; Weight 122.47 kg; Height 5 cm10 ft. 11 in. ; 20:21 BP 133 / 46; Pulse 71; Resp 20; Pulse Ox 98% on R/A; jw7 22:07 BP 130 / 48; Pulse 73; Resp 19 S; Pulse Ox 98% on R/A; jw7 19:46 Body Mass Index 37.66 (122.47 kg, 180.34 cm) cm10 ED Course: 19:35 Patient arrived in ED. ag3 19:49 Triage completed. cm10 19:49 Arm band placed on Patient placed in an exam room, on a stretcher. cm10 20:02 Kenn Yap MD is Attending Physician. sp4 20:12 Radiology exam delayed due to blood work. az 20:18 Jimena Rivera RN is Primary Nurse. jw7 20:19 Inserted saline lock: 20 gauge in left antecubital area, using aseptic technique. Blood jw7 collected. 20:32 Patient has correct armband on for positive identification. Bed in low position. Call jw7 light in reach. Side rails up X2. Client placed on continuous cardiac and pulse oximetry monitoring. NIBP monitoring applied. 20:43 XRAY Chest (1 view) In Process Unspecified. EDMS 20:43 Foot Left 3 View XRAY In Process Unspecified. EDMS 20:43 Raven Hull MD is Hospitalizing Provider. sp4 20:46 Kenneth Ochoa MD is Hospitalizing Provider. la1 22:27 Wound Culture Sent. jw7 22:40 No provider procedures requiring assistance completed. Patient admitted, IV remains in jw7 place. 22:42 Provided Education on: need for admit. jw7 Administered Medications: 21:37 Drug: Piperacillin-Tazobactam IVPB 3.375 grams Route: IVPB; Infused Over: 60 mins; jw7 Site: left upper arm; 22:26 Follow up: IV Status: Completed infusion; IV Intake: 100ml jw7 22:27 Follow up: Response: No adverse reaction jw7 21:37 Drug: morphine IVP or IV 4 mg Route: IVP; Infused Over: 4 mins; Site: left upper arm; jw7 22:17 Follow up: Response: No adverse reaction jw7 21:37 Drug: Ondansetron IVP 4 mg Route: IVP; Site: left upper arm; jw7 22:17 Follow up: Response: No adverse reaction jw7 21:37 Drug: Acetaminophen PO 1000 mg Route: PO; jw7 22:17 Follow up: Response: No adverse reaction jw7 21:38 Drug: NS 0.9% IV 1000 ml Route: IV; Rate: 125 ml/hr; Site: left upper arm; jw7 22:42 Follow up: Response: No adverse reaction; IV Status: Infusion continued upon admission; jw7 IV Intake: 200ml 22:27 Drug: vancoMYCIN IVPB 2 grams Route: IVPB; Rate: calculated rate; Site: left upper arm; jw7 22:42 Follow up: Response: No adverse reaction; IV Status: Infusion continued upon admission; jw7 IV Intake: 50ml Medication: 20:33 VIS not applicable for this client. jw7 Intake: 22:26 IV: 100ml; Total: 100ml. jw7 22:42 IV: 200ml; Total: 300ml. jw7 22:42 IV: 50ml; Total: 350ml. jw7 Outcome: 20:44 Decision to Hospitalize by Provider. sp4 22:41 Admitted to Med/surg accompanied by tech, via wheelchair, room 221, with chart. jw7 22:41 Condition: stable 22:41 Instructed on the need for admit. 23:01 Patient left the ED. jw7 Signatures: Dispatcher [employer] EDMS Julio C Cotter, OPTOMETRY PROFESSOR-C OPTOMETRY PROFESSOR-Cla1 Alyce Lewis Alice ag3 Jimena Rivera RN RN jw7 Kenn Yap MD MD sp4 Minnie Lopez RN RN cm10
[2023-01-12] MEDS ORDERED: ACETAMINOPHEN 500 MG TAB ONE (20:51)
[2023-01-12] MEDS ORDERED: MORPHINE 4 MG/ML SYR ONE (20:52)
[2023-01-12] MEDS ORDERED: VANCOMYCIN 1 GM/VIAL ONE (20:53)
[2023-01-12] MEDS ORDERED: NA CHLORIDE 0.9% 500 ML ONE (20:53)
[2023-01-12] MEDS ORDERED: NA CHLORIDE 0.9% 100 ML ONE (20:53)
[2023-01-12] MEDS ORDERED: ONDANSETRON 4 MG/2 ML VIAL ONE (20:53)
[2023-01-12] MEDS ORDERED: NA CHLORIDE 0.9% 1,000 ML ONE (20:54)
[2023-01-12] MEDS ORDERED: PIPERACIL/TAZO 3.375 GM VIAL IV ONE (20:54)
[2023-01-12 20:55] LABS: ALT/SGPT 24 U/L (16-61); AST/SGOT 21 U/L (15-37); Alkaline Phosphatase 188 U/L (45-117); BUN Blood Urea Nitrogen 35 mg/dL (7-18); Bicarbonate 30 mEq/L (21-32); Bilirubin Direct < 0.1 mg/dL (0-0.2); Bilirubin Indirect, Calculated ND mg/dL (0.2-0.8); Bilirubin Total 0.2 mg/dL (0.2-1.0); Glomerular Filtration Rate 48 ml/min (=/>90); Glucose Level 189 mg/dL (74-106); Magnesium 2.1 mg/dL (1.6-2.4); NT PRO-BNP 187 pg/mL (<125); Potassium 4.8 mEq/L (3.5-5.1); Protein, Total 7.6 g/dL (6.4-8.2); Sodium Level 136 mEq/L (136-145); Troponin High Sensitivity 10.7 pg/mL (<58.9)
--- NOTE | 2023-01-12 20:57 | RAD REPORT ---
EXAM DESCRIPTION: [place] Single View01/12/2023 8:41 pm CLINICAL HISTORY: Chest pain COMPARISON: November 2022 FINDINGS: The lungs appear clear of acute infiltrate. The heart is normal size IMPRESSION: No acute abnormalities displayed
--- NOTE | 2023-01-12 20:59 | RAD REPORT ---
EXAM DESCRIPTION: RAD - Foot Left 3 View - 01/12/2023 8:41 pm CLINICAL HISTORY: Left foot pain swelling FINDINGS: No fracture or dislocation is seen. No bony destructive lesion visualize
--- NOTE | 2023-01-12 21:52 | P.HP ---
Certification for Inpatient Patient admitted to: Inpatient With expected LOS: >2 Midnights Patient will require the following post-hospital care: None Practitioner: I am a practitioner with admitting privileges, knowledge of patient current condition, hospital course, and medical plan of care. Services: Services provided to patient in accordance with Admission requirements found in Title 42 Section 412.3 of the Code of Federal Regulations <Julio C Cotter - Last Filed: 01/12/23 21:48> Patient History Date of Service: 01/12/23 Reason for admission: Diabetic wound History of Present Illness: 57-year-old male with history of insulin-dependent diabetes, CAD, hypertension, hyperlipidemia, chronic CHFunknown EF, GERD presents to the emergency department with chief complaint of wound to left lower extremity/great toe. He has been treating this on outpatient basis with general surgery, he has been on multiple rounds of p.o. antibiotics most recently Bactrim which he took for approximately 10 days and is still having worsening of the wound. He was evaluated here in the emergency department his labs are significant for white blood cell count 10.1 hemoglobin 10.6 medic at 31.6 glucose 189 creatinine 1.65 GFR 48, baseline creatinine appears to be around 1.2. Patient reports he recently had an A1c results were approximately 7. He will need to be admitted for left lower extremity diabetic ulcerationfailed outpatient management no SIRS criteria present currently. Wound culture obtained in ED. - Past Medical/Surgical History Diabetic: Yes -: Hypertension -: Diabetes mellitus type 2 insulin dependent -: CAD with prior stent -: Hyperlipidemia -: Diabetic neuropathy -: Obesity -: Sleep apnea noncompliant -: CVA -: CHFunknown EF -: Stent placement x5 -: back surgery -: ble vascular sx Psychosocial/ Personal History: Patient is - Family History Father -: Heart disease, Diabetes Mother -: Heart disease - Social History Smoking Status: Never smoker Alcohol use: No CD- Drugs: No Caffeine use: Yes Place of Residence: Home <Julio C Cotter - Last Filed: 01/12/23 21:48> Date of Service: 01/13/23 <Kenneth Ochoa - Last Filed: 01/13/23 11:44> Allergies No Known Allergies Allergy (Verified 04/03/19 15:38) Home Medications: RX: Atorvastatin Calcium [Lipitor] 80 mg PO BEDTIME 04/04/19 RX: Gabapentin [Neurontin] 600 mg PO QID 04/04/19 RX: Furosemide [Lasix*] 80 mg PO BIDL 11/06/20 RX: Clopidogrel Bisulfate [Plavix*] 75 mg PO DAILY 06/08/22 RX: Escitalopram [Lexapro*] 20 mg PO DAILY 06/08/22 RX: Insulin NPH Hum/Reg Insulin Hm [Humulin 70-30 Vial] 80 units SQ BID 06/09/22 Lisinopril [Zestril] 30 mg PO BID 01/13/23 RX: Carvedilol [Coreg] 12.5 mg PO BID 01/13/23 Review of Systems 10-point ROS is otherwise unremarkable Cardiovascular: Chest Pain Musculoskeletal: Foot Pain <Julio C Cotter - Last Filed: 01/12/23 21:48> Physical Examination - Physical Exam General: Alert, In no apparent distress, Oriented x3 HEENT: Atraumatic, PERRLA, Mucous membr. moist/pink, EOMI, Sclerae nonicteric Neck: Supple, 2+ carotid pulse no bruit, No LAD, Without JVD or thyroid abnormality Respiratory: Clear to auscultation bilaterally, Normal air movement Cardiovascular: No edema, Regular rate/rhythm, Normal S1 S2 Capillary refill: <2 Seconds Gastrointestinal: Normal bowel sounds, No tenderness Musculoskeletal: No tenderness Integumentary: Erythema, Warmth, Diabetic ulcer (Left great toe) Neurological: Normal speech, Normal strength at 5/5 x4 extr, Normal tone, Normal affect - Studies Laboratory Data (last 24 hrs) 01/12/23 01/12/23 01/12/23 20:13 20:13 20:13 WBC 10.10 Hgb 10.6 L Hct 31.9 L Plt Count 314 PT 12.6 H INR 1.15 Sodium 136 Potassium 4.8 BUN 35 H Creatinine 1.65 H Glucose 189 H Magnesium 2.1 Total Bilirubin 0.2 AST 21 ALT 24 Alkaline Phosphatase 188 H <Julio C Cotter - Last Filed: 01/12/23 21:48> - Studies Laboratory Data (last 24 hrs) 01/12/23 01/12/23 01/12/23 20:13 20:13 20:13 WBC 10.10 Hgb 10.6 L Hct 31.9 L Plt Count 314 PT 12.6 H INR 1.15 Sodium 136 Potassium 4.8 BUN 35 H Creatinine 1.65 H Glucose 189 H Magnesium 2.1 Total Bilirubin 0.2 AST 21 ALT 24 Alkaline Phosphatase 188 H <GabrielaKenneth - Last Filed: 01/13/23 11:44> Assessment and Plan - Plan Assessment: Diabetic ulceration left great toefailed outpatient management Diabetes mellitus type 2insulin-dependent with hyperglycemia Chest pain rule out ACShistory of CAD KATIA Hypertension Hyperlipidemia Chronic CHFunknown EF GERD Plan: Diabetic ulceration left great toefailed outpatient management N.p.o. after midnight, IV antibiotics, general surgery consult. X-ray without concern for osteo at this time. Diabetes mellitus type 2insulin-dependent with hyperglycemia ACHS Accu-Chek, sliding scale insulin. Patient takes insulin 70/30 80 units twice daily as well as sliding scale insulin. He will be n.p.o. tonight, continue aggressive sliding scale insulin, restart reduced home dose long-acting insulin when appropriate. He reports he had a recent A1c that was approximately 7. Chest pain rule out ACShistory of CAD Patient reports episode of chest pain prior to arrival to hospital which she associated with anxiety. We will trend his troponins and monitor on telemetry. If any significant changes worsening pain or elevated troponins we will consult cardiology. KATIA Mild KATIA, baseline creatinine 1.2. We will give 1 L of normal saline at 75 cc/h, recheck chemistry. Hypertension Hyperlipidemia Continue home meds Chronic CHFunknown EF Appears compensated, continue home medications. GERD Continue home meds. DVT PPX: SCD Code status: Full Discharge Plan: Home Plan to discharge in: Greater than 2 days - Advance Directives Does patient have a Living Will: No Does patient have a Durable POA for Healthcare: No - Code Status/Comfort Care Code Status Assessed: Yes (Full code) Critical Care: No Time Spent Managing Pts Care (In Minutes): 55 <Julio C Cotter - Last Filed: 01/12/23 21:48> Physician Review Additional Text: Mr. Webster was initially admitted to my service. However, it was later learned that he follows with Dr. Amador. He was transferred to Dr. Amador's service this morning. I have not personally seen or evaluated Mr. Webster. Please refer to Dr. Amador's notes for further details regarding his hospitalization. Kenneth Ochoa M.D. <Kenneth Ochoa - Last Filed: 01/13/23 11:44>
[2023-01-12] MEDS ORDERED: NA CHLORIDE 0.9% 1,000 ML IV SCH (22:38)
[2023-01-12] MEDS ORDERED: VANCOMYCIN 1 GM in NA CHLORIDE 0.9% 250 ML IVPB SCH (22:38)
[2023-01-12] MEDS ORDERED: ACETAMINOPHEN 500 MG TAB PO PRN (22:38)
[2023-01-12 23:53] VITALS: BMI 37.3
[2023-01-13] MEDS: MORPHINE 2 MG/ML SYR IV PRN ×3 (00:44→20:43)
[2023-01-13] MEDS ORDERED: ACETAMINOPHEN 500 MG TAB PO PRN (01:00)
[2023-01-13] MEDS ORDERED: MORPHINE 2 MG/ML SYR IV PRN (03:00)
[2023-01-13] MEDS ORDERED: FAMOTIDINE 20 MG/2 ML VIAL IV ONE ×2 (03:24→09:54)
[2023-01-13 04:00] LABS: Absolute Lymphocytes (CBC) 2.3 K/uL (0.7-4.9); Lymphocytes % 23.7 % (15.3-44.8); MCV 87.6 fL (80-100); Platelets 290 thou/uL (152-406); RBC Red Blood Cell Count 3.31 M/uL (4.33-5.43)
[2023-01-13 04:09] LABS: Potassium 4.4 mEq/L (3.5-5.1)
[2023-01-13] MEDS: ONDANSETRON 4 MG/2 ML VIAL IV PRN ×2 (05:39→20:43)
[2023-01-13] MEDS: INSULIN -REGULAR HUMAN 50 UNIT/0.5 ML ML SQ SCH ×4 (08:31→20:57)
[2023-01-13] MEDS: CEFEPIME 1 GM in NA CHLORIDE 0.9% 100 ML IV SCH ×2 (08:51→20:58)
[2023-01-13] MEDS ORDERED: METOCLOPRAMIDE 10 MG/2mL INJ ONE (09:54)
[2023-01-13] MEDS ORDERED: NA CIT/CITRIC AC 30 ML ORAL UDC ONE (09:54)
[2023-01-13] MEDS ORDERED: SUCCINYLCHOLINE 20 MG/ML (10 ML) IV ONE (09:56)
[2023-01-13] MEDS ORDERED: MIDAZOLAM HCL 2 MG/2 ML INJ ONE (10:38)
[2023-01-13] MEDS ORDERED: MORPHINE 10 MG/ML VIAL ONE (10:38)
[2023-01-13] MEDS ORDERED: KETAMINE HCL IN 0.9 % NACL 50 MG/5 ML SYRINGE IV ONE (10:39)
[2023-01-13] MEDS ORDERED: LABETALOL 20 MG/4ML SYRINGE IV ONE (10:42)
[2023-01-13] MEDS ORDERED: NS 0.9% VIAL 10 ML ONE (10:42)
--- NOTE | 2023-01-13 10:44 | P.BOP ---
Preoperative diagnosis: left foot celulitis with infected diabetic left first ulcer Postoperative diagnosis: same Primary procedure: Excisional debridement of infected diabetic left first ulcer 2.5x2.5cm Estimated blood loss: <1cc Anesthesia: Local Complications: None Drain(s): Other (bactroban ) Transferred to: Recovery Room Condition: Good
[2023-01-13] MEDS ORDERED: MUPIROCIN 2% OINT 22GM TUBE TOP ONE (10:51)
--- NOTE | 2023-01-13 13:57 | CON ---
Date of Consultation: 01/13/2023 History Of Present Illness: Mr. Webster is a 57-year-old patient with diabetes, multiple medical probl ems, well known by me since he is a frequent patient of the [facility]. He has history of leg ulcers, traumatic and venous, but also developed an arterial and diabetic toe ulcer, which eventually got infected. He got also antibiotics for about 10 days that did not improve and is getting worse and also getting more necrotic, so he was recommended to come to the hospital f or IV antibiotics and care. Last week, I discussed his case with his vascular doctor. He has histor y of a stent in the same place before due to peripheral vascular disease and he has been doing some w orkup to make sure there was stent in the lower extremities and still open. In the meantime, he got failure about outside treatment despite his best effort trying to keep this toe better. The cellulit is then moved into this foot and we believe the straightening that extremity. For that reason, the p atient was admitted and scheduled for a debridement. Allergies: NONE. Medications: Reviewed including insulin, aspirin, Neurontin, Lexapro, albuterol, and hydrocodone. Past Medical History: Includes hypertension, diabetes, coronary artery disease, hyperlipidemia, morb id obesity. Past Surgical History: Surgeries include stent surgeries on the lower extremities. Family History: Includes diabetes, heart disease. Social History: He does not smoke. He does not drink alcohol. Review of Systems: No shortness of breath. No chest pain. No fever. The patient has pain on this toe, very sensitive. Physical Examination: General: The patient is awake, alert. HEENT: Pupils are equal and reactive. Anicteric. Neck: Supple. Chest: Clear. Heart: S1, S2. Abdomen: Soft and depressible. No guarding, rebound. No peritoneal signs. Extremities: Dorsalis pedis pulses are diminished bilaterally. Once again, it is working progress. He has been seeing his vascular surgeons for peripheral vascular disease. Now on his first toe on t he left side, the patient has a black necrotic diabetic ulcer. It is infected, infection goes into t he foot itself. Circulation there is obviously compromised. I explained to the patient the need for debridement, also compliance with diabetes and also offloading. The patient has sensation on the to es and very tender. Laboratory Data: WBC count is 10.10, hemoglobin is 10.6, and platelets of 314 with INR is 1.5 and cr eatinine is 1.65. Glucose 189. Foot x-ray shows no fracture or dislocation. Assessment: A 57-year-old patient with a necrotic ulcer in the base of the toe with cellulitis. The patient has been on p.o. antibiotics for 10 days and is just getting worse. For that reason, he was admitted to the hospital. He is going to have some debridement to trying to at least remove some of the necrotic tissue to improve the chance of responding to antibiotics. At the same time, we will h ave to get an MRI of that foot to rule out osteomyelitis. In the meantime, we are trying to do debri kenan today with benefits, alternatives, and risks explained to the patient, which include, but not limited to infection, bleeding, damage to adjacent structures, anesthesia complication, nonhealing wo und, [place], and even . He still may need amputation at one point. At that moment, he does not hav e any chest pain today and no shortness of breath. HM/MODL Voice ID: [id number] Report ID: [id number]
[2023-01-13] MEDS: VANCOMYCIN 2 GM in NA CHLORIDE 0.9% 500 ML IVPB SCH (15:59)
[2023-01-13] MEDS ORDERED: GLUCAGON 1 MG/VIAL IM PRN (16:06)
[2023-01-13] MEDS ORDERED: D10W 250 ML BAG IV PRN (16:06)
--- NOTE | 2023-01-13 16:14 | P.PN ---
Subjective Date of Service: 01/13/23 Chief Complaint: Diabetic wound Subjective: Improving (s/p surgical debrigement) Review of Systems 10-point ROS is otherwise unremarkable Cardiovascular: Chest Pain Musculoskeletal: Foot Pain (left foot ) Physical Examination - Vital Signs Temperature: 97.8 F Blood Pressure: 133/46 Pulse: 65 Respirations: 18 Pulse Ox (%): 95 - Physical Exam General: Alert, In no apparent distress HEENT: Atraumatic, PERRLA, EOMI Neck: Supple, JVD not distended Respiratory: Clear to auscultation bilaterally, Normal air movement Cardiovascular: Regular rate/rhythm, Normal S1 S2 Gastrointestinal: Normal bowel sounds, No tenderness Musculoskeletal: No tenderness, Other (left foot freshly bandaged) Integumentary: No rashes Neurological: Normal speech, Normal tone, Normal affect Lymphatics: No axilla or inguinal lymphadenopathy - Studies Laboratory Data (last 24 hrs) 01/12/23 01/12/23 01/12/23 20:13 20:13 20:13 WBC 10.10 Hgb 10.6 L Hct 31.9 L Plt Count 314 PT 12.6 H INR 1.15 Sodium 136 Potassium 4.8 BUN 35 H Creatinine 1.65 H Glucose 189 H Magnesium 2.1 Total Bilirubin 0.2 AST 21 ALT 24 Alkaline Phosphatase 188 H Assessment And Plan - Current Problems (Diagnosis) (1) Diabetes mellitus with ulcer of foot Current Visit: Yes Status: Acute Plan: Patient was admitted after failing outpatient antibiotics. Will order an MRI to rule out osteomyelitis. Will see if we should have him on laborer marine terminal IV antibiotics. Qualifiers: Diabetes mellitus type: type 2 Diabetes mellitus laborer marine terminal insulin use: with laborer marine terminal use Qualified Code(s): E11.621 - Type 2 diabetes mellitus with foot ulcer; L97.509 - Non-pressure chronic ulcer of other part of unspecified foot with unspecified severity; Z79.4 - terminal gauger supervisor (current) use of insulin (2) Acute renal failure Current Visit: Yes Status: Acute Plan: improving with IV fluids Qualifiers: Acute renal failure type: unspecified Qualified Code(s): N17.9 - Acute kidney failure, unspecified (3) Essential (primary) hypertension Current Visit: Yes Status: Chronic Plan: restart the patient's home medications (4) Chest pain Current Visit: Yes Status: Acute Plan: May be due to reflux. His troponins are negative Qualifiers: Ischemic chest pain type: unspecified angina pectoris type (5) Hyperlipidemia Current Visit: No Status: Chronic Plan: restart his home atorvastatin Qualifiers: Hyperlipidemia type: moderate mixed hyperlipidemia not requiring statin therapy Qualified Code(s): E78.2 - Mixed hyperlipidemia (6) Peripheral vascular disease due to secondary diabetes Current Visit: Yes Status: Chronic Plan: he has been working on revascularizaton with Dr. Good. Will restart plavix tomorrow. As he has had a surgery today Discharge Plan: Home Plan to discharge in: 48 Hours - Code Status/Comfort Care Code Status Assessed: No Physician Review: Patient Assessed, Agree with Above Assessment and Plan Critical Care: No Time Spent Managing PTS Care (In Minutes): 35
[2023-01-13] MEDS ORDERED: HOME MED 1 EA UNK (Gabapentin [Neurontin] 600 MG Tablet) PO SCH (17:00)
--- NOTE | 2023-01-13 17:32 | EKG ---
Test Date: 2023-01-13 Test Time: 03:33:26 Size Marker: EDILIAG MEASUREMENT RESULTS: Intervals: Rate: 70 MO: 192 QRSD: 98 QT: 390 QTc: 421 [place]: P: 59 MO: 192 QRS: 65 T: 33 INTERPRETIVE STATEMENTS: Normal sinus rhythm ST abnormality, possible digitalis effect Abnormal ECG Compared to ECG 01/12/2023 20:04:29 ST (T wave) deviation now present Electronically Signed On 01-13-23 17:30:44 CDT by Keyur Bonds
[2023-01-13] MEDS: GABAPENTIN 300 MG CAP PO SCH ×2 (17:33→20:56)
--- NOTE | 2023-01-13 17:34 | EKG ---
Test Date: 2023-01-12 Test Time: 20:04:29 Elevator Installer Apprentice: NARINDER MEASUREMENT RESULTS: Intervals: Rate: 73 TX: 172 QRSD: 92 QT: 370 QTc: 407 [place]: P: 59 TX: 172 QRS: 56 T: 38 INTERPRETIVE STATEMENTS: Normal sinus rhythm Normal ECG Compared to ECG 11/16/2022 11:19:18 No significant changes Electronically Signed On 01-13-23 17:31:30 CDT by Keyur Bonds
--- NOTE | 2023-01-13 18:30 | OP ---
Date of Procedure: 01/13/2023 Surgeon: Yasir Lopez MD Preoperative Diagnosis: Left foot cellulitis with infected diabetic left first toe ulcer. Postoperative Diagnosis: Left foot cellulitis with infected diabetic left first toe ulcer. Procedure: Excisional debridement of infected diabetic left first toe ulcer, 2.5 x 2.5 cm. Estimated Blood Loss: Less than 1 cc. Anesthesia: Local plus sedation. Complications: None. Packing: Bactroban with gauze. Indication: This is the case of a male with diabetic necrotic infected first toe ulcer with also michell lulitis of the foot, admitted to the hospital for IV antibiotics and also debridement. The patient u nderstands the benefits, alternatives, and risks of debridement of infected diabetic ulcer, which inc lude, but not limited to infection, bleeding, damage to adjacent structures, anesthesia complication, nonhealing wound, [place], and even . He also understands the importance of diabetes control, offlo ading, compliance with treatment, and using diabetic shoes. Procedure In Detail: The patient was brought to the operating room, placed in supine position. Anes thesia was done without complication. A time-out was called. Left foot was prepped and draped in th e usual sterile fashion. Local anesthesia was applied followed by sharp incision of the necrotic tis larry with a sharp knife. This goes very close to the bone and osteomyelitis cannot be rule out. The patient tolerated the procedure well. During the entire process of all that, I did not see not even 1 cc of blood coming out . The patient tolerated the procedure well. The patient was sent to recovery in stable condition. This patient once again has been worked up by the Vascular Service and they are actively working on his circulation and then also we are going to be controlling his in fection and also trying to rule out osteomyelitis. HM/MODL Voice ID: [id number] Report ID: [id number]
[2023-01-13] MEDS: carvediloL 12.5 MG TAB PO SCH (20:56)
[2023-01-13] MEDS: ATORVASTATIN 80 MG TAB PO SCH (20:57)
[2023-01-13] MEDS ORDERED: HOME MED 1 EA UNK (Lisinopril [Zestril] 30 MG Tablet) PO SCH (21:00)
[2023-01-13] MEDS ORDERED: INSULIN 70/30 100 UNITS/ML SQ SCH (21:00)
[2023-01-13] MEDS ORDERED: MORPHINE 4 MG/ML SYR IV ONE (21:55)
[2023-01-13] MEDS: MAGNES/ALUMIN/SIMET 30ML UCUP PO PRN (22:48)
[2023-01-14] MEDS: MORPHINE 2 MG/ML SYR IV PRN ×4 (03:35→21:40)
[2023-01-14 06:43] LABS: Absolute Lymphocytes (CBC) 2.1 K/uL (0.7-4.9); Hematocrit 29.2 % (39.6-49.0); Lymphocytes % 20.1 % (15.3-44.8); MCV 87.6 fL (80-100); MPV 6.7 fL (7.6-11.3); Platelets 295 thou/uL (152-406); RBC Red Blood Cell Count 3.34 M/uL (4.33-5.43)
[2023-01-14] MEDS: INSULIN -REGULAR HUMAN 50 UNIT/0.5 ML ML SQ SCH ×4 (07:30→20:43)
[2023-01-14] MEDS: MAGNES/ALUMIN/SIMET 30ML UCUP PO PRN ×4 (08:14→21:41)
[2023-01-14] MEDS: GABAPENTIN 300 MG CAP PO SCH ×4 (08:19→20:41)
[2023-01-14] MEDS: ESCITALOPRAM 20 MG TAB PO SCH (08:21)
[2023-01-14] MEDS: carvediloL 12.5 MG TAB PO SCH ×2 (08:21→20:43)
[2023-01-14] MEDS: PANTOPRAZOLE 40MG TABLET PO SCH (08:21)
[2023-01-14] MEDS: CEFEPIME 1 GM in NA CHLORIDE 0.9% 100 ML IV SCH ×2 (08:21→20:40)
[2023-01-14] MEDS ORDERED: LORazepam 2 MG/ML VIAL IV ONE (08:40)
--- NOTE | 2023-01-14 08:44 | P.PN ---
Subjective Date of Service: 01/14/23 Chief Complaint: Diabetic wound Subjective: No new changes Review of Systems 10-point ROS is otherwise unremarkable Physical Examination - Vital Signs Temperature: 97.6 F Blood Pressure: 141/59 Pulse: 80 Respirations: 18 Pulse Ox (%): 94 - Physical Exam General: Alert, In no apparent distress HEENT: Atraumatic, PERRLA, EOMI Neck: Supple, JVD not distended Respiratory: Clear to auscultation bilaterally, Normal air movement Cardiovascular: Regular rate/rhythm, Normal S1 S2 Gastrointestinal: Normal bowel sounds, No tenderness Musculoskeletal: No tenderness Integumentary: No rashes Neurological: Normal speech, Normal tone, Normal affect Lymphatics: No axilla or inguinal lymphadenopathy Assessment And Plan - Current Problems (Diagnosis) (1) Diabetes mellitus with ulcer of foot Current Visit: Yes Status: Acute Plan: Patient was admitted after failing outpatient antibiotics. Will order an MRI to rule out osteomyelitis. Will see if we should have him on bed bug exterminator IV antibiotics. 8.3 will await MRI and cultures to determine if he needs antibiotics and for what lenth of time Qualifiers: Diabetes mellitus type: type 2 Diabetes mellitus bed bug exterminator insulin use: with bed bug exterminator use Qualified Code(s): E11.621 - Type 2 diabetes mellitus with foot ulcer; L97.509 - Non-pressure chronic ulcer of other part of unspecified foot with unspecified severity; Z79.4 - halfway (current) use of insulin (2) Acute renal failure Current Visit: Yes Status: Acute Plan: improving with IV fluids Qualifiers: Acute renal failure type: unspecified Qualified Code(s): N17.9 - Acute kidney failure, unspecified (3) Essential (primary) hypertension Current Visit: Yes Status: Chronic Plan: restart the patient's home medications (4) Chest pain Current Visit: Yes Status: Acute Plan: May be due to reflux. His troponins are negative possible GERD. Will have him seen by Dr. Bonds and check an ekg Qualifiers: Ischemic chest pain type: unspecified angina pectoris type (5) Hyperlipidemia Current Visit: No Status: Chronic Plan: restart his home atorvastatin Qualifiers: Hyperlipidemia type: moderate mixed hyperlipidemia not requiring statin therapy Qualified Code(s): E78.2 - Mixed hyperlipidemia (6) Peripheral vascular disease due to secondary diabetes Current Visit: Yes Status: Chronic Plan: he has been working on revascularizaton with Dr. Good. Will restart plavix tomorrow. As he has had a surgery today Discharge Plan: Home Plan to discharge in: 24 Hours - Code Status/Comfort Care Code Status Assessed: No Physician Review: Patient Assessed, Agree with Above Assessment and Plan Critical Care: No Time Spent Managing PTS Care (In Minutes): 25
[2023-01-14] MEDS: COLLAGENASE 30 GM OINTMENT TOP SCH (10:35)
[2023-01-14] MEDS: VANCOMYCIN 2 GM in NA CHLORIDE 0.9% 500 ML IVPB SCH (10:36)
[2023-01-14] MEDS ORDERED: HYDROMORPHONE HCL 1 MG/ML INJ IV ONE (11:08)
--- NOTE | 2023-01-14 12:05 | RAD REPORT ---
EXAM DESCRIPTION: MRI - Foot Left Wo Cont - 01/14/2023 11:50 am CLINICAL HISTORY: Foot pain swelling COMPARISON: January 12, 2023 x-ray TECHNIQUE: Axial, sagittal and coronal magnetic resonance imaging left foot FINDINGS: Soft tissue ulceration adjacent to the first IP joint. Abnormal signal involves the distal aspect of first proximal phalanx and the proximal aspect of the f irst distal phalanx compatible with osteomyelitis. No soft tissue abscess is seen. No fracture visualized Edema within predominantly the dorsal subcutaneous tissues IMPRESSION: Osteomyelitis first proximal and distal phalanges
[2023-01-14] MEDS: INSULIN GLARGINE 100 UNIT/ML SQ SCH (12:27)
[2023-01-14] MEDS: ATORVASTATIN 80 MG TAB PO SCH (20:40)
[2023-01-14] MEDS: Mupirocin NASAL 2 APPL/1 GM TUBE NAS SCH (20:41)
[2023-01-14] MEDS: HYDROCODONE/APAP 5/325 MG TAB PO PRN (20:41)
[2023-01-15] MEDS: HYDROCODONE/APAP 5/325 MG TAB PO PRN ×3 (00:31→17:04)
[2023-01-15] MEDS: MORPHINE 2 MG/ML SYR IV PRN (01:47)
[2023-01-15 02:46] LABS: Absolute Lymphocytes (CBC) 1.6 K/uL (0.7-4.9); Hematocrit 29.8 % (39.6-49.0); MCV 86.4 fL (80-100); Platelets 287 thou/uL (152-406); RBC Red Blood Cell Count 3.45 M/uL (4.33-5.43)
[2023-01-15] MEDS: VANCOMYCIN 2 GM in NA CHLORIDE 0.9% 500 ML IVPB SCH (02:59)
[2023-01-15 03:00] LABS: Potassium 4.2 mEq/L (3.5-5.1)
[2023-01-15] MEDS: MAGNES/ALUMIN/SIMET 30ML UCUP PO PRN ×2 (03:02→09:40)
[2023-01-15] MEDS: ONDANSETRON 4 MG/2 ML VIAL IV PRN (04:27)
[2023-01-15] MEDS ORDERED: HYDRALAZINE HCL 20 MG/ML VIAL IV PRN (04:43)
[2023-01-15] MEDS ORDERED: NITROGLYCERIN 0.4 MG/TAB SL ONE (04:43)
[2023-01-15] MEDS: HYDROMORPHONE HCL 1 MG/ML INJ IV PRN ×3 (05:25→21:40)
[2023-01-15] MEDS: INSULIN -REGULAR HUMAN 50 UNIT/0.5 ML ML SQ SCH ×4 (07:30→21:40)
[2023-01-15] MEDS ORDERED: clonazePAM 0.5 MG TAB PO PRN (08:47)
[2023-01-15] MEDS: CEFEPIME 1 GM in NA CHLORIDE 0.9% 100 ML IV SCH (09:39)
[2023-01-15] MEDS: GABAPENTIN 300 MG CAP PO SCH ×4 (09:40→21:39)
[2023-01-15] MEDS: Mupirocin NASAL 2 APPL/1 GM TUBE NAS SCH ×2 (09:42→21:40)
[2023-01-15] MEDS: PANTOPRAZOLE 40MG TABLET PO SCH (09:43)
[2023-01-15] MEDS: carvediloL 12.5 MG TAB PO SCH ×2 (09:44→21:39)
[2023-01-15] MEDS: ESCITALOPRAM 20 MG TAB PO SCH (09:45)
[2023-01-15] MEDS: COLLAGENASE 30 GM OINTMENT TOP SCH (09:49)
[2023-01-15] MEDS ORDERED: LEVALBUTEROL 0.63 MG/3 ML NEB NEB PRN (12:00)
[2023-01-15] MEDS: INSULIN GLARGINE 100 UNIT/ML SQ SCH (12:54)
[2023-01-15] MEDS ORDERED: HEPARIN 5000 UNIT/ML 1 ML VIAL ONE (13:43)
[2023-01-15] MEDS ORDERED: FENTANYL CITR 100 MCG/2 ML ONE (13:44)
[2023-01-15] MEDS ORDERED: MIDAZOLAM HCL 2 MG/2 ML INJ ONE (13:44)
[2023-01-15] MEDS ORDERED: TICAGRELOR 90 MG TABLET PO ONE (13:45)
[2023-01-15] MEDS ORDERED: ASPIRIN 325 MG TAB ONE (13:45)
[2023-01-15] MEDS ORDERED: CLOPIDOGREL 75 MG TABLET ONE (13:45)
[2023-01-15] MEDS ORDERED: HEPA 1000U/500MLS 2,000 UNIT/1,000 ML BAG IV ONE (14:01)
[2023-01-15] MEDS ORDERED: LIDOCAINE 1% 20 ML MDV ONE (14:01)
[2023-01-15] MEDS ORDERED: Phenylephrine HCl 10 MG/ML 1 ML VIAL ONE (14:22)
[2023-01-15] MEDS ORDERED: NOREPINEPHRINE BITARTRATE/D5W 0 MG/0 ML BAG IV ONE (14:23)
[2023-01-15] MEDS ORDERED: NA CHLORIDE 0.9% 500 ML ONE (14:23)
--- NOTE | 2023-01-15 14:36 | P.PN ---
Subjective Date of Service: 01/15/23 Chief Complaint: Diabetic wound Subjective: New changes (continues to have chest pain Troponin elevated) Review of Systems 10-point ROS is otherwise unremarkable Cardiovascular: Chest Pain Physical Examination - Vital Signs Temperature: 98.1 F Blood Pressure: 121/78 Pulse: 104 Respirations: 20 Pulse Ox (%): 87 - Physical Exam General: Alert, In no apparent distress HEENT: Atraumatic, PERRLA, EOMI Neck: Supple, JVD not distended Respiratory: Clear to auscultation bilaterally, Normal air movement Cardiovascular: Regular rate/rhythm, Normal S1 S2 Gastrointestinal: Normal bowel sounds, No tenderness Musculoskeletal: No tenderness Integumentary: No rashes Neurological: Normal speech, Normal tone, Normal affect Lymphatics: No axilla or inguinal lymphadenopathy Assessment And Plan - Current Problems (Diagnosis) (1) NSTEMI (non-ST elevated myocardial infarction) Current Visit: Yes Status: Acute Plan: Patient has been having continue chest pain. He had several negative troponins. Dr. Bonds was consulted. Another troponin came back highly positive. Dr. Bonds took the patient to the lab tester. (2) Diabetes mellitus with ulcer of foot Current Visit: Yes Status: Acute Plan: Patient was admitted after failing outpatient antibiotics. Will order an MRI to rule out osteomyelitis. Will see if we should have him on rat exterminator IV antib iotics. 8.4. Dr Lopez got cultures from [facility]. Proteus sensitive to ceftriaxone. Will arrange for this antibiotic for 6 weeks. Qualifiers: Diabetes mellitus type: type 2 Diabetes mellitus chcf insulin use: with chcf use Qualified Code(s): E11.621 - Type 2 diabetes mellitus with foot ulcer; L97.509 - Non-pressure chronic ulcer of other part of unspecified foot with unspecified severity; Z79.4 - intermodal customer service (current) use of insulin (3) Acute renal failure Current Visit: Yes Status: Acute Plan: improving with IV fluids Qualifiers: Acute renal failure type: unspecified Qualified Code(s): N17.9 - Acute kidney failure, unspecified (4) Essential (primary) hypertension Current Visit: Yes Status: Chronic Plan: restart the patient's home medications (5) Chest pain Current Visit: Yes Status: Acute Plan: May be due to reflux. His troponins are negative possible GERD. Will have him seen by Dr. Bonds and check an ekg Qualifiers: Ischemic chest pain type: unspecified angina pectoris type (6) Hyperlipidemia Current Visit: No Status: Chronic Plan: restart his home atorvastatin Qualifiers: Hyperlipidemia type: moderate mixed hyperlipidemia not requiring statin therapy Qualified Code(s): E78.2 - Mixed hyperlipidemia (7) Peripheral vascular disease due to secondary diabetes Current Visit: Yes Status: Chronic Plan: he has been working on revascularizaton with Dr. Good. Will restart plavix tomorrow. As he has had a surgery today Discharge Plan: Home Plan to discharge in: 24 Hours - Code Status/Comfort Care Code Status Assessed: No Code Status: Full Code Physician Review: Patient Assessed, Agree with Above Assessment and Plan Critical Care: No Time Spent Managing PTS Care (In Minutes): 40
[2023-01-15] MEDS ORDERED: FUROSEMIDE 20 MG/ 2ML VIAL ONE (14:54)
[2023-01-15] MEDS ORDERED: NITROGLYCERIN/D5W 50 MG/250 ML BTL IV ONE (14:55)
[2023-01-15] MEDS ORDERED: NITROGLYCERIN/D5W 50 MG/250 ML BTL IV SCH (15:28)
--- NOTE | 2023-01-15 16:14 | RAD REPORT ---
EXAM DESCRIPTION: RAD - Chest Single View - 01/15/2023 3:56 pm CLINICAL HISTORY: Device placement PICC line placement IMPRESSION: PICC line with its tip in the superior vena cava Moderate bilateral pulmonary opacities may represent pneumonia or pulmonary edema
[2023-01-15] MEDS: HEPARIN/D5W 25,000 UNIT/500 ML BAG IV PRN (16:48)
[2023-01-15] MEDS: ATORVASTATIN 80 MG TAB PO SCH (21:39)
[2023-01-16] MEDS: HYDROMORPHONE HCL 1 MG/ML INJ IV PRN ×3 (03:47→12:04)
[2023-01-16] MEDS: PANTOPRAZOLE 40MG TABLET PO SCH ×2 (07:30→08:10)
[2023-01-16] MEDS: INSULIN -REGULAR HUMAN 50 UNIT/0.5 ML ML SQ SCH ×4 (08:09→21:18)
[2023-01-16] MEDS: Mupirocin NASAL 2 APPL/1 GM TUBE NAS SCH ×2 (08:10→21:18)
[2023-01-16] MEDS: ESCITALOPRAM 20 MG TAB PO SCH ×2 (08:10→09:00)
[2023-01-16] MEDS: GABAPENTIN 300 MG CAP PO SCH ×5 (08:10→21:00)
[2023-01-16] MEDS: COLLAGENASE 30 GM OINTMENT TOP SCH (08:10)
[2023-01-16] MEDS: INSULIN GLARGINE 100 UNIT/ML SQ SCH (08:20)
[2023-01-16] MEDS: carvediloL 12.5 MG TAB PO SCH ×2 (09:00→21:00)
[2023-01-16] MEDS ORDERED: FUROSEMIDE 40 MG/4 ML VIAL IV SCH (09:00)
[2023-01-16] MEDS ORDERED: CEFTRIAXONE 1,000 MG in NA CHLORIDE 0.9% 50 ML IVPB SCH ×4 (09:00)
[2023-01-16] MEDS ORDERED: propofoL 1,000 MG/100 ML VIAL IV ONE (09:33)
[2023-01-16] MEDS ORDERED: RSI MEDICATION KIT IV ONE (09:33)
[2023-01-16] MEDS ORDERED: NA CHLORIDE 0.9% 1,000 ML ONE (09:37)
[2023-01-16] MEDS ORDERED: MIDAZOLAM HCL 2 MG/2 ML INJ ONE (09:37)
[2023-01-16] MEDS ORDERED: HEPARIN 5000 UNIT/ML 1 ML VIAL IV SCH (10:00)
[2023-01-16] MEDS: FENTANYL CITR 100 MCG/2 ML IV PRN ×3 (10:12→22:58)
[2023-01-16] MEDS ORDERED: propofoL 1,000 MG/100 ML VIAL IV SCH (10:46)
--- NOTE | 2023-01-16 11:00 | RAD REPORT ---
EXAM DESCRIPTION: RAD - Chest Single View - 01/16/2023 10:51 am CLINICAL HISTORY: fvo Chest pain. COMPARISON: <Comparisons> FINDINGS: Portable technique limits examination quality. Moderate bilateral pulmonary opacities are present, mildly worsened since 01/15/2023. The heart is mo derately enlarged. Enteric tube tip descends into the stomach. Right-sided PICC line has tip in the S VC.Enteric tube tip is at the level of the aortic arch.
--- NOTE | 2023-01-16 11:01 | RAD REPORT ---
EXAM DESCRIPTION: RAD - Abdomen 1 View (KUB) - 01/16/2023 10:51 am CLINICAL HISTORY: Placement of NGT/OGT. Post Insertion. Pain COMPARISON: No comparisons FINDINGS: Enteric tube tip is in the proximal stomach.
--- NOTE | 2023-01-16 11:01 | P.CNS ---
Date of Consult: 01/16/23 Reason for Consult: Respiratory failure Chief Complaint: Respiratory failure possible acute OH History of Present Illness: Patient is 57 years of age apparently he was scheduled to have a cardiac cath yesterday due to ulcer and elevation of troponin procedure was abandoned patient was transferred to the ICU he is very hypoxic 100% FiO2 and hypoxic throughout the night came in this morning and was intubated due to refractory hypoxemia and bilateral pulmonary infiltrate presumed pulmonary edema Allergies No Known Allergies Allergy (Verified 04/03/19 15:38) Home Medications: Atorvastatin Calcium [Lipitor] 80 mg PO BEDTIME 04/04/19 Gabapentin [Neurontin] 600 mg PO QID 04/04/19 Furosemide [Lasix*] 80 mg PO BIDL 11/06/20 Clopidogrel Bisulfate [Plavix*] 75 mg PO DAILY 06/08/22 Escitalopram [Lexapro*] 20 mg PO DAILY 06/08/22 Insulin NPH Hum/Reg Insulin Hm [Humulin 70-30 Vial] 80 units SQ BID 06/09/22 Carvedilol [Coreg] 12.5 mg PO BID 01/13/23 Lisinopril [Zestril] 30 mg PO BID 01/13/23 - Past Medical/Surgical History Diabetic: Yes -: Hypertension -: Diabetes mellitus type 2 insulin dependent -: CAD with prior stent -: Hyperlipidemia -: Diabetic neuropathy -: Obesity -: Sleep apnea noncompliant -: CVA -: CHFunknown EF -: Stent placement x5 -: back surgery -: ble vascular sx -: Appendectomy -: Multiple debridement left great toe Psychosocial/ Personal History: Patient is - Family History Father Medical History: Heart disease, Diabetes Mother Medical History: Heart disease - Social History Alcohol use: No CD- Drugs: No Caffeine use: Yes Place of Residence: Home Review of Systems is unable to be obtained Physical Examination Temp Pulse Resp BP Pulse Ox 99.0 F 103 H 28 H 130/54 L 90 L 01/16/23 08:00 01/16/23 10:34 01/16/23 10:12 01/16/23 09:45 01/16/23 10:34 General: Unresponsive Respiratory: Crackles/rales Cardiovascular: Edema Gastrointestinal: Normal bowel sounds, Soft and benign - Problems (1) Respiratory failure Current Visit: Yes Status: Acute Plan: Patient is 57 years of age developed respiratory failure was unable to do cardiac catheterization yesterday his troponins are elevated abnormal EKG he may have another cardiac event chest x-ray bilateral pulmonary infiltrates suspect pulmonary edema unable to do a cardiac cath as well and was intubated he is agitated lab work ordered again endotracheal tube confirmed by chest x-ray possible pneumonia start on IV meropenem sputum cultures blood cultures
[2023-01-16] MEDS: NOREPINEPHRINE BITARTRATE/D5W 4 MG/250 ML BAG IV SCH ×3 (11:07→21:59)
[2023-01-16] MEDS ORDERED: NOREPINEPHRINE BITARTRATE/D5W 4 MG/250 ML BAG IV ONE (11:13)
[2023-01-16 11:17] VITALS: O2SAT 91
[2023-01-16] MEDS: DEXMEDETOMIDINE HCL 200 MCG in NA CHLORIDE 0.9% 98 ML IV SCH ×2 (11:22→12:15)
[2023-01-16 11:25] LABS: Blood Gas Oxyhemoglobin 78.3 % (94-97); Blood O2 Saturation 80.1 % (92-98.5)
[2023-01-16 11:26] LABS: Arterial Blood Carboxyhemoglob 1.2 % (0-1.5)
[2023-01-16 11:48] LABS: Absolute Lymphocytes (CBC) 1.3 K/uL (0.7-4.9); Hematocrit 27.2 % (39.6-49.0); Lymphocytes % 6.2 % (15.3-44.8); MCV 88.1 fL (80-100); MPV 7.4 fL (7.6-11.3); Platelets 291 thou/uL (152-406); RBC Red Blood Cell Count 3.09 M/uL (4.33-5.43)
[2023-01-16 12:06] LABS: SARS-CoV-2 Antigen Rapid Res Negative (Negative)
[2023-01-16 12:07] LABS: Albumin 2.4 g/dL (3.4-5.0); Bilirubin Total 0.4 mg/dL (0.2-1.0); Potassium 4.7 mEq/L (3.5-5.1); Protein, Total 6.8 g/dL (6.4-8.2)
[2023-01-16] MEDS: Meropenem 1,000 MG in NA CHLORIDE 0.9% 100 ML IV SCH ×2 (12:10→21:18)
--- NOTE | 2023-01-16 12:35 | P.PN ---
Subjective Date of Service: 01/16/23 Chief Complaint: Respiratory failure possible acute MA Subjective: New changes (intubated) Review of Systems is unable to be obtained Physical Examination - Vital Signs Temperature: 101.4 F Blood Pressure: 130/54 Pulse: 103 Respirations: 28 Pulse Ox (%): 90 - Physical Exam General: Unresponsive HEENT: Atraumatic, PERRLA, EOMI Neck: Supple, JVD not distended Respiratory: Clear to auscultation bilaterally, Normal air movement Cardiovascular: Regular rate/rhythm, Normal S1 S2 Gastrointestinal: Normal bowel sounds, No tenderness Musculoskeletal: No tenderness Integumentary: No rashes Neurological: Normal speech, Normal tone, Normal affect Lymphatics: No axilla or inguinal lymphadenopathy Assessment And Plan - Current Problems (Diagnosis) (1) NSTEMI (non-ST elevated myocardial infarction) Current Visit: Yes Status: Acute Plan: Patient has been having continue chest pain. He had several negative troponins. Dr. Bonds was consulted. Another troponin came back highly positive. Dr. Bonds took the patient to the pathology lab technician. (2) Diabetes mellitus with ulcer of foot Current Visit: Yes Status: Acute Plan: Patient was admitted after failing outpatient antibiotics. Will order an MRI to rule out osteomyelitis. Will see if we should have him on longterm IV antibiotics. 8.4. Dr Lopez got [facility] from [facility]. Proteus sensitive to ceftriaxone. Will arrange for this antibiotic for 6 weeks. 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: with longterm use Qualified Code(s): E11.621 - Type 2 diabetes mellitus with foot ulcer; L97.509 - Non-pressure chronic ulcer of other part of unspecified foot with unspecified severity; Z79.4 - director long term care (current) use of insulin (3) Acute renal failure Current Visit: Yes Status: Acute Plan: improving with IV fluids Qualifiers: Acute renal failure type: unspecified Qualified Code(s): N17.9 - Acute kidney failure, unspecified (4) Essential (primary) hypertension Current Visit: Yes Status: Chronic Plan: restart the patient's home medications (5) Chest pain Current Visit: Yes Status: Acute Plan: May be due to reflux. His troponins are negative possible GERD. Will have him seen by Dr. Bonds and check an ekg Qualifiers: Ischemic chest pain type: unspecified angina pectoris type (6) Hyperlipidemia Current Visit: No Status: Chronic Plan: restart his home atorvastatin Qualifiers: Hyperlipidemia type: moderate mixed hyperlipidemia not requiring statin therapy Qualified Code(s): E78.2 - Mixed hyperlipidemia (7) Peripheral vascular disease due to secondary diabetes Current Visit: Yes Status: Chronic Plan: he has been working on revascularizaton with Dr. Good. Will restart plavix tomorrow. As he has had a surgery today (8) Cardiogenic shock Current Visit: Yes Status: Acute Plan: will continue aggressive diuresis. Dr. Rai is monitoring his vent setting. He is on antibiotics as well. Discharge Plan: Home Plan to discharge in: 24 Hours - Code Status/Comfort Care Code Status Assessed: No Physician Review: Patient Assessed, Agree with Above Assessment and Plan Critical Care: No Time Spent Managing PTS Care (In Minutes): 30
[2023-01-16 12:42] LABS: Blood Morphology Comment NOT SEEN (NOT SEEN); Platelet Estimate ADEQ
[2023-01-16] MEDS: DEXMEDETOMIDINE HCL 1,000 MCG in NA CHLORIDE 0.9% 490 ML IV SCH ×2 (13:20→21:18)
[2023-01-16] MEDS ORDERED: CLOPIDOGREL 75 MG TABLET PO ONE (15:15)
[2023-01-16] MEDS ORDERED: ASPIRIN 81 MG CHEWABLE TABLET PO ONE (15:15)
[2023-01-16] MEDS: HEPARIN/D5W 25,000 UNIT/500 ML BAG IV PRN (15:26)
[2023-01-16] MEDS ORDERED: SUCCINYLCHOLINE 20 MG/ML (10 ML) IV ONE (15:46)
[2023-01-16 15:56] LABS: Uric Acid 9.4 mg/dL (3.5-7.2)
[2023-01-16 16:06] LABS: Specific Gravity >= 1.030 (1.005-1.030); Urine Bilirubin Negative (Negative); Urine Blood 2+ (Negative); Urine Clarity Slightly Cloudy (Clear); Urine Color Yellow (Yellow); Urine Glucose Negative (Negative); Urine Protein 1+ (Negative); Urine Urobilinogen 0.2 mg/dL (0.2-1.0); Urine pH 5.5 (5.0-7.0)
[2023-01-16] MEDS: FUROSEMIDE 100 MG in NA CHLORIDE 0.9% 90 ML IV SCH ×2 (16:13→21:17)
[2023-01-16 16:15] LABS: Urine Bacteria >50 /HPF (<20); Urine Mucus 1+ /HPF (None Seen)
--- NOTE | 2023-01-16 17:00 | CON ---
Date of Consultation: 01/15/2023 Reason For Consultation: Chest pain. History Of Present Illness: This is a 57-year-old male who was admitted to the hospital for an infec sho left foot with diabetic ulcer, had debridement. When he was on the floor, apparently he started having chest pain and this was 2 days after the surgery. The patient claims the chest pain is 7/10, left sided. EKG without acute specific abnormalities. We obtained then troponin on him and it was e levated at 6000 range. I planned to take him to the cardiac catheterization laboratory; however, he was also very short of breath, hypoxic, and respiratory failure. Past Medical History: Coronary artery disease, diabetes, hypertension, dyslipidemia, acid reflux, CH F, and peripheral vascular disease. Medications: Refer reconciliation sheet for detailed list. Allergies: NO KNOWN DRUG ALLERGIES. Family History: No premature coronary artery disease or cancer. Social History: He does not smoke or drink. Does not use any drugs. Review of Systems: All systems reviewed and they were negative except as mentioned in the HPI. Physical Examination: Vital Signs: Reviewed. Head and Neck: Pupils are equal, reactive to light. Intact eye movements. Positive JVD. No cervic al lymphadenopathy. Neck is supple. Thyroid is not enlarged. Lungs: Decreased breathing sounds with crackles bilaterally. No accessory muscle use or muscle retr action. Heart: Regular rate and rhythm. Tachycardiac. Abdomen: Soft, nontender. Bowel sounds positive. No organomegaly. No masses or hernia. No rigidi ty or rebound. Extremities: 4+ edema bilaterally. No clubbing, cyanosis. Intact pulses. Skin: No rash. Neurologic: Alert, awake, oriented x3. No acute focal deficits appreciated. Lymph Nodes: No cervical or axillary lymphadenopathy. Investigations: Troponin is 5639. BUN 26, creatinine 1.16. Assessment/recommendation: 1.Ren-CA-wcbyemkuy myocardial infarction. I tried to take him to the cardiac catheterization labor[facility]; however, he is in respiratory failure, fluid overloaded, could not lie down flat, even sitting up he had significant JVD and with non-rebreather was saturating 86%. At this point, it is not safe to proceed with coronary angiogram, so the procedure was aborted. I discussed the case with Dr. Sybil yepez. Plan to admit, IV nitroglycerin drip, IV heparin and IV diuretics, and once his status is more eu volemic and patient can tolerate lying flat, then bring him back to the cardiac catheterization labor atory. Plan for coronary angiogram and PCI as needed. Trend troponin until trends down and obtain a n echo. 2.Acute hypoxic respiratory failure due to acute congestive heart failure exacerbation. Lasix 40 mg IV q.8 hours. Monitor BUN, creatinine, and electrolytes. SR/MODL Voice ID: [id number] Report ID: [id number]
[2023-01-16] MEDS: LORazepam 2 MG/ML VIAL IV PRN ×3 (17:57→23:56)
--- NOTE | 2023-01-16 18:21 | PN ---
Date of Progress Note: 01/16/2023 Subjective: Seen at bedside. He apparently became more short of breath and he received only 1 dose of Lasix yesterday in the lab asst and for some reason the Lasix order did not carry through and the patient became more short of breath and required intubation earlier this morning. Son by bedside. Yordan philip is comfortable on the ventilator. No distress. Review of Systems: He is sedated on the ventilator. Cannot obtain any symptoms from him. Physical Examination: Vital signs: Reviewed. Head and Neck: Pupils are equal, reactive to light. There is no cervical bruit. Neck: Supple. Thyroid is not enlarged. Lungs: Positive bilateral air entry. No rhonchi, wheezing, crackles. Heart: Irregular. No extra sounds. Abdomen: Soft, nontender. Bowel sounds positive. No organomegaly. No masses or hernia. No rigidi ty or rebound. Extremities: 3+ edema bilaterally. No clubbing, cyanosis. Intact pulses. Skin: No rash. No nodule. Neuro: He is sedated on the vent. Lymph nodes: No cervical lymphadenopathy. Investigations: BUN 35, creatinine 0.84. Hemoglobin is 8.8. Assessment And Recommendations: 1.Acute hypoxic respiratory failure, which is likely due to acute heart failure and it could be pneu monia too. Recommend IV diuresis. However, monitor BUN, creatinine, and electrolytes very carefully and consult Nephrology also as his creatinine is jumping up. 2.Non-ST elevation myocardial infarction. Continue IV heparin and nitroglycerin drip if blood press ure tolerates and once his respiratory status is more stable, we will plan for a coronary angiogram. I probably will do the heart catheterization on him while he is intubated as this patient does not s cornelius still on the table. He is status post PCI of the LAD back in May. Continue dual antiplatel et therapy. I do not see any anti-platelet therapy on his records. I will load him with Plavix 600 mg and to do 75 mg daily after that and aspirin 81 mg daily. SR/MODL Voice ID: [id number] Report ID: [id number]
--- NOTE | 2023-01-16 20:17 | RAD REPORT ---
EXAM DESCRIPTION: US - Renal Ultrasound-Complete - 01/16/2023 8:03 pm CLINICAL HISTORY: increase in creatinine Abdominal pain COMPARISON: <Comparisons> FINDINGS: Both kidneys demonstrate mild increased echogenicity. The right kidney measures 12.2 x 6.2 x 5.8 cm. No hydronephrosis, focal mass or perinephric fluid. The left kidney measures 10.8 x 5.6 x 5.6 cm. No hydronephrosis, focal mass or perinephric fluid. The urinary bladder is incompletely distended without gross abnormality seen. Cholelithiasis with gallbladder wall thickening. IMPRESSION: Mildly echogenic kidneys bilaterally suggests medical renal disease. Cholelithiasis with gallbladder wall thickening incidentally noted.
[2023-01-16] MEDS: ATORVASTATIN 80 MG TAB PO SCH (21:00)
[2023-01-16 21:38] VITALS: TEMP 97.7
[2023-01-16 23:54] VITALS: BP 142/72
[2023-01-17] MEDS ORDERED: CLOPIDOGREL 75 MG TABLET PO SCH (09:00)
[2023-01-17] MEDS ORDERED: ASPIRIN 81 MG CHEWABLE TABLET PO SCH (09:00)
--- NOTE | 2023-01-18 07:42 | ECHO ---
HEIGHT: 5 ft 11 in WEIGHT: 267 lb 6.4 oz DATE OF STUDY: 01/15/[address]: Keyur Bonds 2-DIMENSIONAL: YES M.MODE: YES DOPPLER: YES COLOR FLOW: YES TDS: YES PORTABLE: YES DEFINITY: BUBBLE STUDY: DIAGNOSIS: CHEST PAIN CARDIAC HISTORY: CATHERIZATION: SURGERY: PROSTHETIC VALVE: PACEMAKER: MEASUREMENTS (cm) DIASTOLIC (NORMALS) SYSTOLIC (NORMALS) IVSd 1.0 (0.6-1.2) LA Diam (1.9-4.0) LVEF 47% LVIDd 4.3 (3.5-5.7) LVIDs 3.3 (2.0-3.5) %FS 23% LVPWd 1.1 (0.6-1.2) Ao Diam 2.6 (2.0-3.7) 2 DIMENSIONAL ASSESSMENT: RIGHT ATRIUM: NORMAL LEFT ATRIUM: NORMAL RIGHT VENTRICLE: NORMAL LEFT VENTRICLE: DEPRESSED EJECTION FRACTION TRICUSPID VALVE: MILD TRICUSPID REGURGITATION MITRAL VALVE: MILD MITRAL REGURGITATION PULMONIC VALVE: NORMAL AORTIC VALVE: NORMAL PERICARDIAL EFFUSION: NONE AORTIC ROOT: NORMAL LEFT VENTRICULAR WALL MOTION: APICAL HYPOKINESIS DOPPLER/COLOR FLOW: SEE BELOW COMMENTS: 1. MILDLY DEPRESSED LEFT VENTRICULAR EJECTION FRACTION 40-45% 2. APICAL HYPOKINESIS 3. MILD MITRAL REGURGITATION 4. MILD TRICUSPID REGURGITATION TECHNOLOGIST: MARIA DEL CARMEN MEYERS
--- NOTE | 2023-01-18 13:10 | EKG ---
Test Date: 2023-01-15 Test Time: 14:28:58 Button Reclaimer: [place] MEASUREMENT RESULTS: Intervals: Rate: 114 OH: 154 QRSD: 90 QT: 320 QTc: 441 [place]: P: 48 OH: 154 QRS: 41 T: 69 INTERPRETIVE STATEMENTS: Sinus tachycardia Nonspecific ST and T wave abnormality Abnormal ECG Compared to ECG 01/14/2023 16:50:56 Sinus rhythm no longer present ST (T wave) deviation still present Electronically Signed On 01-18-23 13:06:51 CDT by Keyur Bonds
--- NOTE | 2023-01-18 13:16 | EKG ---
Test Date: 2023-01-14 Test Time: 16:50:56 Lead Presser: BERNARD MEASUREMENT RESULTS: Intervals: Rate: 80 AR: 170 QRSD: 96 QT: 370 QTc: 426 [place]: P: 55 AR: 170 QRS: 44 T: 43 INTERPRETIVE STATEMENTS: Normal sinus rhythm ST abnormality, possible digitalis effect Abnormal ECG Compared to ECG 01/13/2023 03:33:26 No significant changes Electronically Signed On 01-18-23 13:10:34 CDT by Keyur Bonds
--- NOTE | 2023-01-19 08:31 | P.DS ---
Admission Date: 01/12/23 Discharge Date: 01/16/23 Disposition: TRANSFER TO 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 of insulin (3) Acute renal failure Status: Acute Qualifiers: Acute renal failure type: unspecified Qualified Code(s): N17.9 - Acute kidney failure, unspecified (4) Essential (primary) hypertension Status: Chronic (5) Chest pain Status: Acute Qualifiers: Ischemic chest pain type: unspecified angina pectoris type (6) Hyperlipidemia Status: Chronic Qualifiers: Hyperlipidemia type: moderate mixed hyperlipidemia not requiring statin therapy Qualified Code(s): E78.2 - Mixed hyperlipidemia (7) Peripheral vascular disease due to secondary diabetes Status: Chronic (8) Cardiogenic shock Status: Acute Brief History of Present Illness: Patient was admitted for surgical debridement of his left diabetic foot wound. Was a patient of Dr. Lopez in the wound care center. Was admitted by the hospitalist. Please see the hospitalist H&P Hospital Course: Patient had surgery with Dr. Lopez. Was admitted and started on iv antibiotics. Choice of meropenem was per the wound cultures done in [facility]. His surgery touched bone. The patient was not able to tolerate an MRI. However as the surgery went to the bone presumptively treated as osteomyelitis. He was complainting of chest pain. Troponins and ekg were negative. However he continue to have chest pain. Dr. Bonds was consulted. The patient had another troponin which was very positive. He was to have a cath. However Dr. Bonds felt he needed diuresis as he was volume overloaded Sent to the icu. Unfortunately he did not get his lasix initially. The patient decompensated and was intubated. He had troponins trending upwards and was tra ns[facility] to [facility]. Vital Signs/Physical Exam: Temp Pulse Resp BP Pulse Ox 97.7 F 79 24 H 142/72 H 99 01/17/23 00:15 01/17/23 00:15 01/17/23 00:15 01/17/23 00:15 01/17/23 00:15 General: Unresponsive HEENT: Atraumatic, PERRLA, EOMI Neck: Supple, JVD not distended Respiratory: Clear to auscultation bilaterally, Normal air movement Cardiovascular: Regular rate/rhythm, Normal S1 S2 Gastrointestinal: Normal bowel sounds, No tenderness Musculoskeletal: No tenderness Integumentary: No rashes Neurological: Normal speech, Normal tone, Normal affect Lymphatics: No axilla or inguinal lymphadenopathy Laboratory Data at Discharge: WBC Cancelled 01/17/23 06:00 Hgb Cancelled 01/17/23 06:00 Hct Cancelled 01/17/23 06:00 Plt Count Cancelled 01/17/23 06:00 PT 12.6 SECONDS (9.5-12.5) H 01/12/23 20:13 INR 1.15 01/12/23 20:13 APTT Cancelled 01/17/23 05:00 Sodium Cancelled 01/17/23 06:00 Potassium Cancelled 01/17/23 06:00 BUN Cancelled 01/17/23 06:00 Creatinine Cancelled 01/17/23 06:00 Glucose Cancelled 01/17/23 06:00 Uric Acid 9.4 mg/dL (3.5-7.2) H 01/16/23 11:35 Magnesium 2.1 mg/dL (1.6-2.4) 01/12/23 20:13 Total Bilirubin Cancelled 01/17/23 06:00 AST Cancelled 01/17/23 06:00 ALT Cancelled 01/17/23 06:00 Alkaline Phosphatase Cancelled 01/17/23 06:00 Home Medications: Atorvastatin Calcium [Lipitor] 80 mg PO BEDTIME 04/04/19 Gabapentin [Neurontin] 600 mg PO QID 04/04/19 Furosemide [Lasix*] 80 mg PO BIDL 11/06/20 Clopidogrel Bisulfate [Plavix*] 75 mg PO DAILY 06/08/22 Escitalopram [Lexapro*] 20 mg PO DAILY 06/08/22 Insulin NPH Hum/Reg Insulin Hm [Humulin 70-30 Vial] 80 units SQ BID 06/09/22 Carvedilol [Coreg] 12.5 mg PO BID 01/13/23 Lisinopril [Zestril] 30 mg PO BID 01/13/23 Diet: ADA Activity: Ad evelin Physician Review: Patient Assessed, Agree with Above Assessment and Plan Time spent managing pt's care (in minutes): 45
== END 2023-01-17 00:15 | disposition short-term general hospital (02) | DRG 622 ==
LOC: ER 19:33 → 2ND 21:33 → 3RD-ICU 01-15 15:03
PROVIDERS: ADMIT Internal Medicine; ATTEND Internal Medicine
PROC: 0JBR0ZZ Excision of Left Foot Subcutaneous Tissue and Fascia, Open Approach (ICD-10-PCS; principal; 2023-01-13 09:45)
PROC: 02HV33Z Insertion of Infusion Device into Superior Vena Cava, Percutaneous Approach (ICD-10-PCS; 2023-01-15)
PROC: 5A1935Z Respiratory Ventilation, Less than 24 Consecutive Hours (ICD-10-PCS; 2023-01-16)
PROC: 0BH17EZ Insertion of Endotracheal Airway into Trachea, Via Natural or Artificial Opening (ICD-10-PCS; 2023-01-16)
DX: E11.621 Type 2 diabetes mellitus with foot ulcer (principal); I21.4 Non-ST elevation (NSTEMI) myocardial infarction; J96.01 Acute respiratory failure with hypoxia; R57.0 Cardiogenic shock; E11.52 Type 2 diabetes mellitus with diabetic peripheral angiopathy with gangrene; L03.116 Cellulitis of left lower limb; M86.8X7 Other osteomyelitis, ankle and foot; E11.69 Type 2 diabetes mellitus with other specified complication; N17.9 Acute kidney failure, unspecified; E11.40 Type 2 diabetes mellitus with diabetic neuropathy, unspecified; E11.65 Type 2 diabetes mellitus with hyperglycemia; K21.9 Gastro-esophageal reflux disease without esophagitis; I11.0 Hypertensive heart disease with heart failure; I50.9 Heart failure, unspecified; E78.2 Mixed hyperlipidemia; F41.9 Anxiety disorder, unspecified; E66.01 Morbid (severe) obesity due to excess calories; L97.529 Non-pressure chronic ulcer of other part of left foot with unspecified severity; I25.119 Atherosclerotic heart disease of native coronary artery with unspecified angina pectoris; Z95.5 Presence of coronary angioplasty implant and graft; Z79.4 Long term (current) use of insulin; Z78.1 Physical restraint status; Z68.37 Body mass index [BMI] 37.0-37.9, adult; Z86.73 Personal history of transient ischemic attack (TIA), and cerebral infarction without residual deficits; Z79.02 Long term (current) use of antithrombotics/antiplatelets; Z79.82 Long term (current) use of aspirin; Z79.899 Other long term (current) drug therapy; Z20.822 Contact with and (suspected) exposure to COVID-19
CPT/HCPCS: 36415; 36569; 36600; 71045; 74018; 76770; 80048; 80053; 80076; 80202; 81003; 81015; 82550; 82570; 82805; 82947; 83735; 83880; 84156; 84484; 84550; 85025; 85610; 85730; 87040; 87070; 87075; 87077; 87086; 87088; 87186; 87205; 87811; 88108; 88304; 93005; 93306; 94002; 94640; 94660; 96365; 96375; 99285; A4216; J0360; J0692; J0696; J1170; J1644; J1815; J1940; J2001; J2185; J2250; J2270; J2371; J2405; J2543; J2704; J2765; J3010; J3590; J7030; J7040; J7614

== ENCOUNTER 2023-04-11 22:07 | Inpatient (IN) | payer OTHER ==
--- OUTSIDE RECORDS SUMMARY | 2023-04-11 22:25 | XMS REPORT | Continuity of Care Document ---
:1965 Author Organization [facility] t Address [address] [facility]. [address] [place] [address] Care Team Providers Name Role Phone Michael Grullon Primary Care Physician [phone] AUDELIA WINN Attending Clinician Unavailable SHAINA YBARRA Attending Clinician Unavailable DOMINGO ARGUETA Attending Clinician Unavailable BARON POPE Attending Clinician Unavailable DANIEL QUIÑONES Attending Clinician Unavailable ROBB BOLTON Attending Clinician Unavailable FACUNDO TEJADA Attending Clinician Unavailable MALCOLM BRANDT Attending Clinician Unavailable MAVIS GOTTLIEB Attending Clinician Unavailable MICHELLE MUNOZ Attending Clinician Unavailable ROSE MARY GIBSON Attending Clinician Unavailable ZOE ALCOCER Attending Clinician Unavailable AURELIA PALMA Attending Clinician Unavailable BALA NELSON Attending Clinician Unavailable SCHUYLER SCHMID Attending Clinician Unavailable DUSTIN ARNOLD Attending Clinician Unavailable RO GRAYSON Attending Clinician Unavailable CELINA QUISPE Attending Clinician Unavailable Michael Grullon Attending Clinician Unavailable SUMAYA MCKEON Attending Clinician Unavailable MONIQUE ALICEA Attending Clinician Unavailable ALEJO ANDINO Attending Clinician Unavailable ALEJO ANDINO Attending Clinician Unavailable EMILIANO HOLCOMB Attending Clinician Unavailable Layla Torres MD Attending Clinician Alejo Andino MD Attending Clinician Doctor Unassigned, [place] Attending Clinician Unavailable Keyur Bonds Attending Clinician Unavailable Michael Grullon Attending Clinician Radiology Attending Clinician Unavailable RADIOLOGY Attending Clinician Unavailable FACUNDO TEJADA Admitting Clinician Unavailable Michael Grullon Admitting Clinician Unavailable Keyur Bonds Admitting Clinician Unavailable Payers Payer Name Policy Type Policy Number Effective Date Expiration Date S mariely [facility] [id number] 2022 [facility] [employer]IG[employer] MEDICARE PPO [id number] 2022 00:00:00 CIGNA MEDICARE HMO [id number] 2022 00:00:00 [facility] [id number] 2022 00:00:00 [facility] 53 [id number] 2021 2022 Common [facility] 00:00:00 00:00:00 [facility] Problems Condition Condition Condition Status Onset Resolution Last Treating Co mments Source Name Details Category Date Date Treatment Clinician Date Dyslipidem Dyslipidem Disease Active 2015-06 U denisse ia ia 1-16 ity of 00:00: [address] Diabetes Diabetes Disease Active Unive rs mellitus, mellitus, 03-05 ity of insulin insulin 00:00: [place] dependent dependent 00 Medi marck (IDDM), (IDDM), Branch uncontroll uncontroll ed ed Retinopath Retinopath Disease Active U denisse y y 03-05 ity of 00:00: [place] [facility] Neuropathy Neuropathy Disease Active U nivers 6-30 ity of 00:00: [place] [address] Medical Branch Muscle Muscle Disease Active Univers cramps cramps 6-30 ity of 00:00: [address] Branch Obstructiv Obstructiv Problem C ommon e sleep e sleep Spirit apnea apnea - [facility] Erectile Erectile Problem Commo n dysfunctio dysfunctio Sp marissa n n - [facility]I [facility] [id number] History of Problem Co mmon CVA Spirit (cerebrova - CHI scular St accident) [facility] deficits [id number] Dog bite, Problem Com mon subsequent [facility] encounter - [facility] [id number] Wound of Problem Comm on left lower Spirit extremity, - CHI subsequent [facility] [id number] HTN Problem Common (hypertens Spirit ion), - CHI benign [facility] Insomnia Insomnia Problem Commo n Spirit - [facility] [id number] Venous Problem Common insufficie Spirit ncy of - 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 heart [facility] Hearing Hearing Problem Common loss deficit [facility] [id number] Tubular Problem Commo n adenoma of Spirit colon [facility] [id number] Local Problem Common infection [facility] of [facility] tissue, Medica l unspecifie Center d [id number] Cellulitis Problem C ommon [id number] of left Spirit lower - CHI extremity [facility] Left sided Left sided Problem C ommon ulcerative colitis Spiri t colitis with - CHI complicati [facility] [id number] Moderate Problem Commo n major Spirit depression - CHI , single [facility] [id number] PAD Problem Common (periphera Spirit l artery - CHI disease) [facility] [id number] Pain in Problem Comm on [id number] left Spirit shoulder - [facility] [id number] Spinal Problem Common stenosis, Spirit lumbosacra - CHI l region [facility] Hyperglyce Type 2 Problem Commo n bryan due to diabetes Spir it type 2 mellitus - CHI diabetes with mellitus hyperglyce [place] [facility], Medical unspecifie Center d whether half-way insulin use [id number] Type 1 Problem Common diabetes Spirit mellitus - CHI with other 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 38.0-38.9, [facility] [id number] Left elbow Problem Com mon pain [facility] Sciatica Sciatic Problem Common pain, left [facility] [id number] Acute pain Problem Com mon of left [facility] shoulder [facility] [id number] Chronic Problem Commo n kidney Spirit disease, - [facility] [id number] Type 2 Problem Commo n 05 diabetes Spirit mellitus - CHI with diabetic [facility] chronic Medical kidney Center disease Peripheral Peripheral Problem C ommon neuropathy neuropathy Sp marissa - [facility] Chronic Chronic Problem Common back pain back pain Spir it - [facility] Hyperlipid Hyperlipid Problem C ommon emia emia [facility] Mixed Depression Problem Commo n anxiety with Spirit and anxiety - CHI depressive [facility] Allergies, Adverse Reactions, Alerts Allergy Allergy Status Severity Reaction(s) Onset Inactive Treating Comm ents Source Name Type Date Date Clinician VANCOMYC Allergy Active High Hives [facility] [place] 02-11 [facility] 00:00: Medical 00 Center No Known DA Active U [facility] Allergie 07-20 Clear s 00:00: Grimaldo [address] [place] [address] NO KNOWN Allergy Active [facility] ALLERGIE S NO KNOWN Drug Active Univers ALLERGIE Class [facility] Social History Social Habit Start Date Stop Date Quantity Comments Source History of Tobacco Common Spirit - Use [facility] Sexual orientation Univer [facility] History of Social 2022-10-05 2022-10-05 Univers ity of function 00:00:00 00:00:00 [facility] Exposure to 2022-09-24 2022-10-04 Not sure University of SARS-CoV-2 (event) 00:00:00 17:21:00 [facility] Alcohol intake 2017-10-10 2017-10-10 Current University of 00:00:00 00:00:00 non-drinker of [facility] [place] [facility] alcohol Branch (finding) Tobacco use and 2017-09-21 2017-09-21 Smokeless Universit y of exposure 00:00:00 00:00:00 tobacco non-user [facility] dical [place] Sex Assigned At [birth year] [place] [facility] 00:00:00 00:00:00 Smoking Status Start Date Stop Date Source Tobacco [facility] Never Smoker Common Spirit - [facility] Medications Ordered Filled Start Stop Current [...] [place] 47 :00 daily. Medical Branch carBAMazepi 2022-0 Yes [id number] 200mg Take 1 Univers ne 200 mg 4-24 tablet by ity o f tablet 00:00: mouth [place] 00 every 12 Medical (twelve) Branch hours. carBAMazepi 2022-0 Yes [id number] 200mg Take 1 Univers ne 200 mg 4-24 tablet by ity o f tablet 00:00: mouth [place] 00 every 12 Medical (twelve) Branch hours. carBAMazepi 2022-0 Yes [id number] 200mg Take 1 Univers ne 200 mg 4-24 tablet by ity o f tablet 00:00: mouth [place] 00 every 12 Medical (twelve) Branch hours. carBAMazepi 2022-0 Yes [id number] 200mg Take 1 Univers ne 200 mg 4-24 tablet by ity o f tablet 00:00: mouth [place] 00 every 12 Medical (twelve) Branch hours. FreeStyle FreeStyle 3-0 No FreeStyle [place] 2 Hunter 2 2-08 [place] 2 [place] - 00:00: [place] - 00 FreeStyle FreeStyle 2023-0 No FreeStyle [place] 2 Hunter 2 2-08 Hunter 2 Sensor - Sensor - 00:00: Sensor - 00 FreeStyle FreeStyle 2023-0 No FreeStyle [place] 2 Hunter 2 2-08 Hunter 2 Sensor - Sensor - 00:00: Sensor - 00 FreeStyle FreeStyle 2023-0 No FreeStyle [place] 2 Hunter 2 2-08 Hunter 2 [place] - 00:00: [place] - 00 Alcohol Alcohol 2022-0 No Alcohol [...] 06-26 t} MG 00:00: 00:00 00 :00 Kenalog Kenalog 2021-0 No 40mg Common (Triamcinol (Triamcinol 7-20 S pirit one) one) 00:00: - CHI 00 [facility] Kenalog Kenalog 2021-0 No 40mg Common (Triamcinol (Triamcinol 7-20 S pirit one) one) 00:00: - CHI 00 [facility] Kenalog Kenalog 2021-0 No 40mg Common (Triamcinol (Triamcinol 7-20 S pirit one) one) 00:00: - CHI 00 [facility] Kenalog Kenalog 0 No 40mg Common (Triamcinol (Triamcinol 7-20 S pirit one) one) 00:00: - CHI 00 [facility] Kenalog Kenalog 0 No 40mg Common (Triamcinol (Triamcinol 7-20 S pirit one) one) 00:00: - CHI 00 [facility] Kenalog Kenalog 2021-0 No 40mg Common (Triamcinol (Triamcinol 7-20 S pirit one) one) 00:00: - CHI 00 [facility] Kenalog Kenalog 2021-0 No 40mg Common (Triamcinol (Triamcinol 7-20 S pirit one) one) 00:00: - CHI 00 [facility] Kenalog Kenalog 2021-0 No 40mg Common (Triamcinol (Triamcinol 7-20 S pirit one) one) 00:00: - CHI 00 [facility] Kenalog Kenalog 0 No 40mg Common (Triamcinol (Triamcinol 7-20 S pirit one) one) 00:00: - CHI 00 [facility] Kenalog Kenalog 2021-0 No 40mg Common (Triamcinol (Triamcinol 7-20 S pirit one) one) 00:00: - CHI 00 [facility] Kenalog Kenalog 2021-0 No 40mg Common (Triamcinol (Triamcinol 7-20 S pirit one) one) 00:00: - CHI 00 [facility] Kenalog Kenalog 2021-0 No 40mg Common (Triamcinol (Triamcinol 7-20 S pirit one) one) 00:00: - CHI 00 [facility] Kenalog Kenalog 2021-0 No 40mg Common (Triamcinol (Triamcinol 7-20 S pirit one) one) 00:00: - CHI 00 [facility] Kenalog Kenalog 2021-0 No 40mg Common (Triamcinol (Triamcinol 7-20 S pirit one) one) 00:00: - CHI 00 [facility] Kenalog Kenalog 2021-0 No 40mg Common (Triamcinol (Triamcinol 7-20 S pirit one) one) 00:00: - CHI 00 [facility] Kenalog Kenalog 2021-0 No 40mg Common (Triamcinol (Triamcinol 7-20 S pirit one) one) 00:00: - [facility] Kenalog Kenalog 2021-0 No 40mg Common (Triamcinol (Triamcinol 7-20 S pirit one) one) 00:00: - CHI 00 [facility] Kenalog Kenalog 2021-0 No 40mg Common (Triamcinol (Triamcinol 7-20 S pirit one) one) 00:00: - [facility] HumuLIN HumuLIN 0 No BID HumuLIN 70/30 70/30 12-23 70/30 (70-30) 100 (70-30) 100 00:00: (70-30) UNIT/ML UNIT/ML 00 100 UNIT/ML Insulin Insulin 0 No Insulin Syringe-Nee Syringe-Nee 12-23 Syringe-Ne dle U-100 dle U-100 00:00: edle U-100 31G X 5/16" 31G X 5/16" 00 31G X 1 ML 1 ML /16" 1 ML HumuLIN HumuLIN 2021-0 No BID HumuLIN 70/30 70/30 12-23 70/30 (70-30) 100 (70-30) 100 00:00: (70-30) UNIT/ML UNIT/ML 00 100 UNIT/ML Insulin Insulin 2021-0 No Insulin Syringe-Nee Syringe-Nee 12-23 Syringe-Ne dle U-100 dle U-100 00:00: edle U-100 31G X 5/16" 31G X 5/16" 00 31G X 1 ML 1 ML 5/16" 1 ML HumuLIN HumuLIN 2021-0 No BID HumuLIN 70/30 70/30 12-23 70/30 (70-30) 100 (70-30) 100 00:00: (70-30) UNIT/ML UNIT/ML 00 100 UNIT/ML Insulin Insulin 2021-0 No Insulin Syringe-Nee Syringe-Nee 12-23 Syringe-Ne dle U-100 dle U-100 00:00: edle U-100 31G X 5/16" 31G X 5/16" 00 31G X 1 ML 1 ML /16" 1 ML HumuLIN HumuLIN 0 No BID HumuLIN 70/30 70/30 12-23 70/30 (70-30) 100 (70-30) 100 00:00: (70-30) UNIT/ML UNIT/ML 00 100 UNIT/ML Insulin Insulin 0 No Insulin Syringe-Nee Syringe-Nee 12-23 Syringe-Ne dle U-100 dle U-100 00:00: edle U-100 31G X 5/16" 31G X 5/16" 00 31G X 1 ML 1 ML 16" 1 ML HumuLIN HumuLIN 0 No BID HumuLIN 70/30 70/30 12-23 70/30 (70-30) 100 (70-30) 100 00:00: (70-30) UNIT/ML UNIT/ML 00 100 UNIT/ML Insulin Insulin 0 No Insulin Syringe-Nee Syringe-Nee 12-23 Syringe-Ne dle U-100 dle U-100 00:00: edle U-100 31G X 5/16" 31G X /16" 00 31G X 1 ML 1 ML 16" 1 ML HumuLIN HumuLIN 0 No BID HumuLIN 70/30 70/30 12-23 70/30 (70-30) 100 (70-30) 100 00:00: (70-30) UNIT/ML UNIT/ML 00 100 UNIT/ML Insulin Insulin 0 No Insulin Syringe-Nee Syringe-Nee 12-23 Syringe-Ne dle U-100 dle U-100 00:00: edle U-100 31G X 5/16" 31G X 5/16" 00 31G X 1 ML 1 ML /16" 1 ML Insulin Insulin 2021-0 No Insulin Syringe-Nee Syringe-Nee 12-23 Syringe-Ne dle [...] Com mon -31 Spirit 00:00: - [facility] Kenalog Kenalog 2-0 No 40mg Common (Triamcinol (Triamcinol 1-31 S pirit one) one) 00:00: - CHI 00 [facility] Lidocaine Lidocaine 2-0 No 10mg Com 07-14 Spirit 00:00: - [facility] Kenalog Kenalog 2-0 No 40mg Common (Triamcinol (Triamcinol 1-31 S pirit one) one) 00:00: - [facility] Lidocaine Lidocaine 2-0 No 10mg Com 07-14 Spirit 00:00: - CHI 00 [facility] Kenalog Kenalog 2-0 No 40mg Common (Triamcinol (Triamcinol 1-31 S pirit one) one) 00:00: - [facility] Lidocaine Lidocaine 2-0 No 10mg Com 07-14 Spirit 00:00: - [facility] Kenalog Kenalog 2-0 No 40mg Common (Triamcinol (Triamcinol 1-31 S pirit one) one) 00:00: - [facility] Lidocaine Lidocaine 2-0 No 10mg Com 07-14 Spirit 00:00: - [facility] Kenalog Kenalog 2-0 No 40mg Common (Triamcinol (Triamcinol 1-31 S pirit one) one) 00:00: - [facility] Lidocaine Lidocaine 2-0 No 10mg Com 07-14 Spirit 00:00: - [facility] Kenalog Kenalog 2-0 No 40mg Common (Triamcinol (Triamcinol 1-31 S pirit one) one) 00:00: - [facility] Lidocaine Lidocaine 2-0 No 10mg Com 07-14 Spirit 00:00: - [facility] Kenalog Kenalog 2-0 No 40mg Common (Triamcinol (Triamcinol 1-31 S pirit one) one) 00:00: - [facility] Lidocaine Lidocaine 2022-0 No 10mg Com 07-14 Spirit 00:00: - [facility] Kenalog Kenalog 2-0 No 40mg Common (Triamcinol (Triamcinol 1-31 S pirit one) one) 00:00: - CHI 00 [facility] Lidocaine Lidocaine 2-0 No 10mg Com 07-14 Spirit 00:00: - [facility] Kenalog Kenalog 2-0 No 40mg Common (Triamcinol (Triamcinol 1-31 S pirit one) one) 00:00: - CHI 00 [facility] Lidocaine Lidocaine 2-0 No 10mg Com 07-14 Spirit 00:00: - CHI 00 [facility] Kenalog Kenalog 2-0 No 40mg Common (Triamcinol (Triamcinol 1-31 S pirit one) one) 00:00: - CHI 00 [facility] Lidocaine Lidocaine 2-0 No 10mg Com 07-14 Spirit 00:00: - [facility] Kenalog Kenalog 2-0 No 40mg Common (Triamcinol (Triamcinol 1-31 S pirit one) one) 00:00: - [facility] Lidocaine Lidocaine 2-0 No 10mg Com 07-14 Spirit 00:00: - CHI 00 [facility] Kenalog Kenalog 2-0 No 40mg Common (Triamcinol (Triamcinol 1-31 S pirit one) one) 00:00: - [facility] Lidocaine Lidocaine 2-0 No 10mg Com 07-14 Spirit 00:00: - [facility] Kenalog Kenalog 2-0 No 40mg Common (Triamcinol (Triamcinol 1-31 S pirit one) one) 00:00: - [facility] Lidocaine Lidocaine 2-0 No 10mg Com 07-14 Spirit 00:00: - [facility] Kenalog Kenalog 2-0 No 40mg Common (Triamcinol (Triamcinol 1-31 S pirit one) one) 00:00: - [facility] Lidocaine Lidocaine 2022-0 No 10mg Com 07-14 Spirit 00:00: - [facility] Kenalog Kenalog 2021-0 No 40mg Common (Triamcinol (Triamcinol 1-31 S pirit one) one) 00:00: - [facility] Lidocaine Lidocaine 2021-0 No 10mg Com 07-14 Spirit 00:00: - [facility] Kenalog Kenalog 2021-0 No 40mg Common (Triamcinol (Triamcinol 1-31 S pirit one) one) 00:00: - [facility] Lidocaine Lidocaine 2-0 No 10mg Com 07-14 Spirit 00:00: - [facility] Kenalog Kenalog 2021-0 No 40mg Common (Triamcinol (Triamcinol 1-31 S pirit one) one) 00:00: - [facility] Lidocaine Lidocaine 2021-0 No 10mg Com 07-14 Spirit 00:00: - [facility] Kenalog Kenalog 2021-0 No 40mg Common (Triamcinol (Triamcinol 1-31 S pirit one) one) 00:00: - [facility] gadoteridol 2019-1 2020- No .2mL/kg 0.2 mL/kg, Univers (PROHANCE-1 - Intravenou i ty of 5 mL) 15:45: 17:18 s, ONCE, 1 [place] injection 00 :00 dose, Emma Medic al 0.2 mL/kg 04/11/20 Branch at 1045, Routine Kenalog Kenalog 2019-0 No 40mg Common (Triamcinol (Triamcinol 3-24 S pirit one) one) 00:00: - [facility]I [facility] Kenalog Kenalog 2019-0 No 40mg Common (Triamcinol (Triamcinol 3-24 S pirit one) one) 00:00: - [facility] Kenalog Kenalog 2020-0 No 40mg Common (Triamcinol (Triamcinol 3-24 S pirit one) one) 00:00: - [facility] Kenalog Kenalog 2020-0 No 40mg Common (Triamcinol (Triamcinol 3-24 S pirit one) one) 00:00: - CHI 00 [facility] Kenalog Kenalog 2020-0 No 40mg Common (Triamcinol (Triamcinol 3-24 S pirit one) one) 00:00: - CHI 00 [facility] Kenalog Kenalog 2020-0 No 40mg Common (Triamcinol (Triamcinol 3-24 S pirit one) one) 00:00: - CHI 00 [facility] Kenalog Kenalog 2020-0 No 40mg Common (Triamcinol (Triamcinol 3-24 S pirit one) one) 00:00: - CHI 00 [facility] Kenalog Kenalog 2020-0 No 40mg Common (Triamcinol (Triamcinol 3-24 S pirit one) one) 00:00: - CHI 00 [facility] Kenalog Kenalog 2020-0 No 40mg Common (Triamcinol (Triamcinol 3-24 S pirit one) one) 00:00: - CHI 00 [facility] Kenalog Kenalog 2020-0 No 40mg Common (Triamcinol (Triamcinol 3-24 S pirit one) one) 00:00: - CHI 00 [facility] Kenalog Kenalog 2020-0 No 40mg Common (Triamcinol (Triamcinol 3-24 S pirit one) one) 00:00: - CHI 00 [facility] Kenalog Kenalog 2020-0 No 40mg Common (Triamcinol (Triamcinol 3-24 S pirit one) one) 00:00: - CHI 00 [facility] Kenalog Kenalog 2020-0 No 40mg Common (Triamcinol (Triamcinol 3-24 S pirit one) one) 00:00: - CHI 00 [facility] Kenalog Kenalog 2020-0 No 40mg Common (Triamcinol (Triamcinol 3-24 S pirit one) one) 00:00: - CHI 00 [facility] Kenalog Kenalog 2020-0 No 40mg Common (Triamcinol (Triamcinol 3-24 S pirit one) one) 00:00: - CHI 00 [facility] Kenalog Kenalog 2020-0 No 40mg Common (Triamcinol (Triamcinol 3-24 S pirit one) one) 00:00: - CHI 00 [facility] Kenalog Kenalog 2020-0 No 40mg Common (Triamcinol (Triamcinol 3-24 S pirit one) one) 00:00: - CHI 00 [facility] Kenalog Kenalog 2020-0 No 40mg Common (Triamcinol (Triamcinol 3-24 S pirit one) one) 00:00: - CHI 00 [facility] Novolin R Novolin R 2019-1 Yes Michael per C ommon 06-17 [place] sliding Spirit 00:00: scale 2 - CHI 00 units - 28 [facility] NovoLIN R NovoLIN R 2019-1 No TID [...] 06-17 100 00:00: UNIT/ML 00 dulaglutide Yes [id number] 1.5mg inject 1.5 Univers (TRULICITY) 8-27 mg under ity of 1.5 mg/0.5 00:00: the skin [place] as mL PnIj 00 weekly. Medical Branch dulaglutide Yes [id number] 1.5mg inject 1.5 Univers (TRULICITY) 8-27 mg under ity of 1.5 mg/0.5 00:00: the skin [place] as mL PnIj 00 weekly. Medical Branch dulaglutide Yes [id number] 1.5mg inject 1.5 Univers (TRULICITY) 8-27 mg under ity of 1.5 mg/0.5 00:00: the skin [place] as mL PnIj 00 weekly. Medical Branch dulaglutide Yes [id number] 1.5mg inject 1.5 Univers (TRULICITY) 8-27 mg under ity of 1.5 mg/0.5 00:00: the skin [place] as mL PnIj 00 weekly. Medical Branch dulaglutide Yes [id number] 1.5mg inject 1.5 Univers (TRULICITY) 8-27 mg under ity of 1.5 mg/0.5 00:00: the skin [place] as mL PnIj 00 weekly. Medical Branch dulaglutide Yes [id number] 1.5mg inject 1.5 Univers (TRULICITY) 8-27 mg under ity of 1.5 mg/0.5 00:00: the skin [place] as mL PnIj 00 weekly. Medical Branch dulaglutide Yes [id number] 1.5mg inject 1.5 Univers (TRULICITY) 8-27 mg under ity of 1.5 mg/0.5 00:00: the skin [place] as mL PnIj 00 weekly. Medical Branch dulaglutide Yes [id number] 1.5mg inject 1.5 Univers (TRULICITY) 8-27 mg under ity of 1.5 mg/0.5 00:00: the skin [place] as mL PnIj 00 weekly. Medical Branch dulaglutide Yes [id number] 1.5mg inject 1.5 Univers (TRULICITY) 8-27 mg under ity of 1.5 mg/0.5 00:00: the skin [place] as mL PnIj 00 weekly. Medical Branch dulaglutide Yes [id number] 1.5mg inject 1.5 Univers (TRULICITY) 8-27 mg under ity of 1.5 mg/0.5 00:00: the skin [place] as mL PnIj 00 weekly. Medical Branch dulaglutide Yes [id number] 1.5mg inject 1.5 Univers (TRULICITY) 8-27 mg under ity of 1.5 mg/0.5 00:00: the skin [place] as mL PnIj 00 weekly. Medical Branch dulaglutide Yes [id number] 1.5mg inject 1.5 Univers (TRULICITY) 8-27 mg under ity of 1.5 mg/0.5 00:00: the skin [place] as mL PnIj 00 weekly. Medical Branch dulaglutide Yes [id number] 1.5mg inject 1.5 Univers (TRULICITY) 8-27 mg under ity of 1.5 mg/0.5 00:00: the skin [place] as mL PnIj 00 weekly. Medical Branch dulaglutide 2017- Yes [id number] 1.5mg inject 1.5 Univers (TRULICITY) 8-27 mg under ity of 1.5 mg/0.5 00:00: the skin [place] as mL PnIj 00 weekly. Medical Branch dulaglutide 2017- Yes [id number] 1.5mg inject 1.5 Univers (TRULICITY) 8-27 mg under ity of 1.5 mg/0.5 00:00: the skin [place] as mL PnIj 00 weekly. Medical Branch dulaglutide Yes [id number] 1.5mg inject 1.5 Univers (TRULICITY) 8-27 mg under ity of 1.5 mg/0.5 00:00: the skin [place] as mL PnIj 00 weekly. Medical Branch dulaglutide Yes [id number] 1.5mg inject 1.5 Univers (TRULICITY) 8-27 mg under ity of 1.5 mg/0.5 00:00: the skin [place] as mL PnIj 00 weekly. Medical Branch dulaglutide Yes [id number] 1.5mg inject 1.5 Univers (TRULICITY) 8-27 mg under ity of 1.5 mg/0.5 00:00: the skin [place] as mL PnIj 00 weekly. Medical Branch dulaglutide Yes [id number] 1.5mg inject 1.5 Univers (TRULICITY) 8-27 mg under ity of 1.5 mg/0.5 00:00: the skin [place] as mL PnIj 00 weekly. Medical Branch dulaglutide Yes [id number] 1.5mg inject 1.5 Univers (TRULICITY) 8-27 mg under ity of 1.5 mg/0.5 00:00: the skin [place] as mL PnIj 00 weekly. Medical Branch dulaglutide Yes [id number] 1.5mg inject 1.5 Univers (TRULICITY) 8-27 mg under ity of 1.5 mg/0.5 00:00: the skin [place] as mL PnIj 00 weekly. Medical Branch dulaglutide Yes [id number] 1.5mg inject 1.5 Univers (TRULICITY) 8-27 mg under ity of 1.5 mg/0.5 00:00: the skin [place] as mL PnIj 00 weekly. Medical Branch insulin Yes [id number] 28U inject Uni vers lispro, 5 28-34 ity of human, 00:00: Units [place] (HUMALOG) 00 under the Medic al 100 unit/mL skin 3 Branch injection (three) times daily before meals. insulin Yes [id number] 28U inject Uni vers lispro, 5-25 28-34 ity of human, 00:00: Units [place] (HUMALOG) 00 under the Medic al 100 unit/mL skin 3 Branch injection (three) times daily before meals. insulin 2018-0 Yes [id number] 28U inject Uni vers lispro, 5-25 28-34 ity of human, 00:00: Units [place] (HUMALOG) 00 under the Medic al 100 unit/mL skin 3 Branch injection (three) times daily before meals. insulin 2018-0 Yes [id number] 28U inject Uni vers lispro, 5-25 28-34 ity of human, 00:00: Units [place] (HUMALOG) 00 under the Medic al 100 unit/mL skin 3 Branch injection (three) times daily before meals. insulin 2018-0 Yes [id number] 28U inject Uni vers lispro, 5-25 28-34 ity of human, 00:00: Units [place] (HUMALOG) 00 under the Medic al 100 unit/mL skin 3 Branch injection (three) times daily before meals. insulin 2018-0 Yes [id number] 28U inject Uni vers lispro, 5-25 28-34 ity of human, 00:00: Units [place] (HUMALOG) 00 under the Medic al 100 unit/mL skin 3 Branch injection (three) times daily before meals. insulin 2018-0 Yes [id number] 28U inject Univ ers lispro, 5-25 28-34 ity of human, 00:00: Units [place] (HUMALOG) 00 under the Medic al 100 unit/mL skin 3 Branch injection (three) times daily before meals. insulin 2018-0 Yes [id number] 28U inject Univ ers lispro, 5-25 28-34 ity of human, 00:00: Units [place] (HUMALOG) 00 under the Medic al 100 unit/mL skin 3 Branch injection (three) times daily before meals. insulin 2018-0 Yes [id number] 28U inject Univ ers lispro, 5-25 28-34 ity of human, 00:00: Units [place] (HUMALOG) 00 under the Medic al 100 unit/mL skin 3 Branch injection (three) times daily before meals. insulin 2018-0 Yes [id number] 28U inject Univ ers lispro, 5-25 28-34 ity of human, 00:00: Units [place] (HUMALOG) 00 under the Medic al 100 unit/mL skin 3 Branch injection (three) times daily before meals. insulin 2018-0 Yes [id number] 28U inject Univ ers lispro, 5-25 28-34 ity of human, 00:00: Units [place] (HUMALOG) 00 under the Medic al 100 unit/mL skin 3 Branch injection (three) times daily before meals. escitalopra Yes 10mg Take 10 mg Univers m oxalate 5-07 by mouth ity of (LEXAPRO) 18:23: daily. [place] 10 mg 19 Medical tablet Branch clopidogrel Yes 75mg Take 75 mg Univers (PLAVIX) 75 5-07 by mouth ity of mg tablet 18:23: daily. [place] [address] Medical Branch amLODIPine Yes 2.5mg Take 2.5 Un marc 2.5 mg 5-07 mg by ity of tablet 18:23: mouth [place] 19 daily. Medical Branch escitalopra Yes 10mg Take 10 mg Univers m oxalate 5-07 by mouth ity of (LEXAPRO) 18:23: daily. [place] 10 mg 19 Medical tablet Branch clopidogrel Yes 75mg Take 75 mg Univers (PLAVIX) 75 5-07 by mouth ity of mg tablet 18:23: daily. [place] [address] Medical Branch amLODIPine Yes 2.5mg Take 2.5 Un marc 2.5 mg 5-07 mg by ity of tablet 18:23: mouth [place] 19 daily. Medical Branch escitalopra Yes 10mg Take 10 mg Univers m oxalate 5-07 by mouth ity of (LEXAPRO) 18:23: daily. [place] 10 mg Medical tablet Branch clopidogrel Yes 75mg Take 75 mg Univers (PLAVIX) 75 5-07 by mouth ity of mg tablet 18:23: daily. [place] [address] Medical Branch amLODIPine Yes 2.5mg Take 2.5 Un marc 2.5 mg 5-07 mg by ity of tablet 18:23: mouth [place] 19 daily. Medical Branch escitalopra Yes 10mg Take 10 mg Univers m oxalate 5-07 by mouth ity of (LEXAPRO) 18:23: daily. [place] 10 mg Medical tablet Branch clopidogrel Yes 75mg Take 75 mg Univers (PLAVIX) 75 5-07 by mouth ity of mg tablet 18:23: daily. [place] [address] Medical Branch amLODIPine Yes 2.5mg Take 2.5 Un marc 2.5 mg 5-07 mg by ity of tablet 18:23: mouth [place] 19 daily. [facility] escitalopra Yes 10mg Take 10 mg Univers m oxalate 5-07 by mouth ity of (LEXAPRO) 18:23: daily. [place] 10 mg 19 Medical tablet Branch clopidogrel 0 Yes 75mg Take 75 mg Univers (PLAVIX) 75 5-07 by mouth ity of mg tablet 18:23: daily. [address] amLODIPine Yes 2.5mg Take 2.5 Un marc 2.5 mg 5-07 mg by ity of tablet 18:23: mouth [place] [facility] oxalate 5-07 by mouth ity of (LEXAPRO) 13:23: daily. [place] 10 mg Medical tablet Branch clopidogrel Yes 75mg Take 75 mg Univers (PLAVIX) 75 5-07 by mouth ity of mg tablet 13:23: daily. [address] Yes 10mg Take 10 mg Univers m oxalate 5-07 by mouth ity of (LEXAPRO) 13:23: daily. [place] 10 mg Medical tablet Branch clopidogrel Yes 75mg Take 75 mg Univers (PLAVIX) 75 5-07 by mouth ity of mg tablet 13:23: daily. [address] Yes 10mg Take 10 mg Univers m oxalate 5-07 by mouth ity of (LEXAPRO) 13:23: daily. [place] 10 mg Medical tablet Branch clopidogrel Yes 75mg Take 75 mg Univers (PLAVIX) 75 5-07 by mouth ity of mg tablet 13:23: daily. [address] escitalopra Yes 10mg Take 10 mg Univers m oxalate 5-07 by mouth ity of (LEXAPRO) 13:23: daily. [place] 10 mg Medical tablet Branch clopidogrel 0 Yes 75mg Take 75 mg Univers (PLAVIX) 75 5-07 by mouth ity of mg tablet 13:23: daily. [address] escitalopra Yes 10mg Take 10 mg Univers m oxalate 5-07 by mouth ity of (LEXAPRO) 13:23: daily. [place] 10 mg 19 Medical tablet Branch clopidogrel 0 Yes 75mg Take 75 mg Univers (PLAVIX) 75 5-07 by mouth ity of mg tablet 13:23: daily. [place] [address] Medical Branch escitalopra 2018-0 Yes 10mg Take 10 mg Univers m oxalate 5-07 by mouth ity of (LEXAPRO) 13:23: daily. [place] 10 mg 19 Medical tablet Branch clopidogrel 2018-0 Yes 75mg Take 75 mg Univers (PLAVIX) 75 5-07 by mouth ity of mg tablet 13:23: daily. [place] [address] Medical Branch amLODIPine 2017- Yes 2.5mg Take 2.5 Un marc 2.5 mg 5-07 mg by ity of tablet 13:23: mouth [place] 19 daily. Medical Branch insulin NPH Yes [id number] 40U inject 40 Univers 100 unit/mL 5-07 Units ity of injection 00:00: under the [place] 00 skin every Medical morning Branch and evening. insulin NPH Yes [id number] 40U inject 40 Univers 100 unit/mL 5-07 Units ity of injection 00:00: under the [place] 00 skin every Medical morning Branch and evening. insulin NPH 2017- Yes [id number] 40U inject 40 Univers 100 unit/mL 5-07 Units ity of injection 00:00: under the [place] 00 skin every Medical morning Branch and evening. insulin NPH 2017- Yes [id number] 40U inject 40 Univers 100 unit/mL 5-07 Units ity of injection 00:00: under the [place] 00 skin every Medical morning Branch and evening. insulin NPH 2017- Yes [id number] 40U inject 40 Univers 100 unit/mL 5-07 Units ity of injection 00:00: under the [place] 00 skin every Medical morning Branch and evening. insulin NPH 2017- Yes [id number] 40U inject 40 Univers 100 unit/mL 5-07 Units ity of injection 00:00: under the [place] 00 skin every Medical morning Branch and evening. insulin NPH 2017-0 Yes [id number] 40U inject 40 Univers 100 unit/mL 5-07 Units ity of injection 00:00: under the [place] 00 skin every Medical morning Branch and evening. insulin NPH 2017-0 Yes [id number] 40U inject 40 Univers 100 unit/mL 5-07 Units ity of injection 00:00: under the [place] 00 skin every Medical morning Branch and evening. insulin NPH 2017- Yes [id number] 40U inject 40 Univers 100 unit/mL 5-07 Units ity of injection 00:00: under the [place] 00 skin every Medical morning Branch and evening. insulin NPH 2018-0 Yes [id number] 40U inject 40 Univers 100 unit/mL 5-07 Units ity of injection 00:00: under the [place] 00 skin every Medical morning Branch and evening. insulin NPH 2018-0 Yes [id number] 40U inject 40 Univers 100 unit/mL 5-07 Units ity of injection 00:00: under the [place] 00 skin every Medical morning Branch and evening. atorvastati 2018-0 Yes 40mg Take 40 mg Univers n 80 mg 1-18 by mouth ity of tablet 00:00: every [place] evening. Medical Branch lisinopril 2018-0 Yes 20mg Take 20 mg U nivers 20 mg 1-18 by mouth ity of tablet 00:00: daily. Medical Branch atorvastati 2018-0 Yes 40mg Take 40 mg Univers n 80 mg 1-18 by mouth ity of tablet 00:00: every [place] evening. Medical Branch lisinopril 2017-0 Yes 20mg Take 20 mg U nivers 20 mg 1-18 by mouth ity of tablet 00:00: daily. Medical Branch atorvastati 2018-0 Yes 40mg Take 40 mg Univers n 80 mg 1-18 by mouth ity of tablet 00:00: every [place] evening. Medical Branch lisinopril 2017-0 Yes 20mg Take 20 mg U nivers 20 mg 1-18 by mouth ity of tablet 00:00: daily. Medical Branch atorvastati 2018-0 Yes 40mg Take 40 mg Univers n 80 mg 1-18 by mouth ity of tablet 00:00: every [place] evening. Medical Branch lisinopril 2018-0 Yes 20mg Take 20 mg U nivers 20 mg 1-18 by mouth ity of tablet 00:00: daily. Medical Branch atorvastati 2018-0 Yes 40mg Take 40 mg Univers n 80 mg 1-18 by mouth ity of tablet 00:00: every [place] evening. Medical Branch lisinopril 2018-0 Yes 20mg Take 20 mg U nivers 20 mg 1-18 by mouth ity of tablet 00:00: daily. Medical Branch atorvastati 2018-0 Yes 40mg Take 40 mg Univers n 80 mg 1-18 by mouth ity of tablet 00:00: every [place] 00 evening. Medical Branch lisinopril 2018-0 Yes 20mg Take 20 mg U nivers 20 mg 1-18 by mouth ity of tablet 00:00: daily. Medical Branch atorvastati 2018-0 Yes 40mg Take 40 mg Univers n 80 mg 1-18 by mouth ity of tablet 00:00: every [place] evening. Medical Branch lisinopril 2018-0 Yes 20mg Take 20 mg U nivers 20 mg 1-18 by mouth ity of tablet 00:00: daily. Medical Branch atorvastati 2018-0 Yes 40mg Take 40 mg Univers n 80 mg 1-18 by mouth ity of tablet 00:00: every [place] evening. Medical Branch lisinopril 2018-0 Yes 20mg Take 20 mg U nivers 20 mg 1-18 by mouth ity of tablet 00:00: daily. Medical Branch atorvastati 2018-0 Yes 40mg Take 40 mg Univers n 80 mg 1-18 by mouth ity of tablet 00:00: every [place] evening. Medical Branch lisinopril 2018-0 Yes 20mg Take 20 mg U nivers 20 mg 1-18 by mouth ity of tablet 00:00: daily. Medical Branch atorvastati 2018-0 Yes 40mg Take 40 mg Univers n 80 mg 1-18 by mouth ity of tablet 00:00: every [place] evening. Medical Branch lisinopril 2018-0 Yes 20mg Take 20 mg U nivers 20 mg 1-18 by mouth ity of tablet 00:00: daily. Medical Branch atorvastati 2018-0 Yes 40mg Take 40 mg Univers n 80 mg 1-18 by mouth ity of tablet 00:00: every [place] 00 evening. Medical Branch lisinopril 2018-0 Yes 20mg Take 20 mg U nivers 20 mg 1-18 by mouth ity of tablet 00:00: daily. Medical Branch gabapentin 2016-0 Yes [id number] 600mg Take 1 Univers (NEURONTIN) 8-16 tablet by ity of 600 mg 00:00: mouth 3 [place] tablet 00 (three) Medical times Branch daily. gabapentin 2016-0 Yes [id number] 600mg Take 1 Univers (NEURONTIN) 8-16 tablet by ity of 600 mg 00:00: mouth 3 [place] tablet 00 (three) Medical times Branch daily. gabapentin 2016-0 Yes [id number] 600mg Take 1 Univers (NEURONTIN) 8-16 tablet by ity of 600 mg 00:00: mouth 3 [place] tablet 00 (three) Medical times Branch daily. gabapentin 2016-0 Yes [id number] 600mg Take 1 Univers (NEURONTIN) 8-16 tablet by ity of 600 mg 00:00: mouth 3 [place] tablet 00 (three) Medical times Branch daily. gabapentin 2016-0 Yes [id number] 600mg Take 1 Univers (NEURONTIN) 8-16 tablet by ity of 600 mg 00:00: mouth 3 [place] tablet 00 (three) Medical times Branch daily. gabapentin 2016-0 Yes [id number] 600mg Take 1 Univers (NEURONTIN) 8-16 tablet by ity of 600 mg 00:00: mouth 3 [place] tablet 00 (three) Medical times Branch daily. gabapentin 2016-0 Yes [id number] 600mg Take 1 Univers (NEURONTIN) 8-16 tablet by ity of 600 mg 00:00: mouth 3 [place] tablet 00 (three) Medical times Branch daily. gabapentin 2016-0 Yes [id number] 600mg Take 1 Univers (NEURONTIN) 8-16 tablet by ity of 600 mg 00:00: mouth 3 [place] tablet 00 (three) Medical times Branch daily. gabapentin 2016-0 Yes [id number] 600mg Take 1 Univers (NEURONTIN) 8-16 tablet by ity of 600 mg 00:00: mouth 3 [place] tablet 00 (three) Medical times Branch daily. gabapentin 2016-0 Yes [id number] 600mg Take 1 Univers (NEURONTIN) 8-16 tablet by ity of 600 mg 00:00: mouth 3 [place] tablet 00 (three) Medical times Branch daily. gabapentin 2016-0 Yes [id number] 600mg Take 1 Univers (NEURONTIN) 8-16 tablet by ity of 600 mg 00:00: mouth 3 [place] tablet 00 (three) Medical times Branch daily. Neurontin Neurontin No 1{table QD Neurontin 600 [...] Dexcom G6 Dexcom G6 No Dexcom G6 Fiscal Analyst - Fiscal Analyst - Fiscal Analyst - Dexcom G6 Dexcom G6 No Dexcom [...] Dexcom G6 Dexcom G6 No Dexcom G6 Fiscal Analyst - Fiscal Analyst - Fiscal Analyst - Dexcom G6 Dexcom G6 No Dexcom [...] Dexcom G6 Dexcom G6 No Dexcom G6 Fiscal Analyst - Fiscal Analyst - Fiscal Analyst - Dexcom G6 Dexcom G6 No Dexcom [...] Dexcom G6 Dexcom G6 No Dexcom G6 Fiscal Analyst - Fiscal Analyst - Fiscal Analyst - Carvedilol Carvedilol No Carvedilol 12.5 MG [...] Dexcom G6 Dexcom G6 No Dexcom G6 Fiscal Analyst - Fiscal Analyst - Fiscal Analyst - Lipitor 80 Lipitor 80 No 1{table [...] Dexcom G6 Dexcom G6 No Dexcom G6 Fiscal Analyst - Fiscal Analyst - Fiscal Analyst - Lipitor 80 Lipitor 80 No 1{table [...] Dexcom G6 Dexcom G6 No Dexcom G6 Fiscal Analyst - Fiscal Analyst - Fiscal Analyst - Lipitor 80 Lipitor 80 No 1{table [...] Dexcom G6 Dexcom G6 No Dexcom G6 Fiscal Analyst - Fiscal Analyst - Fiscal Analyst - traMADol traMADol No 1{table BID traMADol [...] Dexcom G6 Dexcom G6 No Dexcom G6 Fiscal Analyst - Fiscal Analyst - Fiscal Analyst - traMADol traMADol No 1{table BID traMADol [...] Dexcom G6 Dexcom G6 No Dexcom G6 Fiscal Analyst - Fiscal Analyst - Fiscal Analyst - Lipitor 80 Lipitor 80 No 1{table [...] Dexcom G6 Dexcom G6 No Dexcom G6 Fiscal Analyst - Fiscal Analyst - Fiscal Analyst - hydrOXYzine hydrOXYzine No 1{table QID hydrOXYzin HCl 10 MG HCl 10 MG t_as_ne e HCl 10 eded} MG Lisinopril Lisinopril No 1{table BID Lisinopril 30 MG 30 MG t} 30 MG traZODone traZODone No 1{table QD traZODone HCl 100 MG HCl 100 MG t_at_be HCl 100 MG dtime} Sulfamethox Sulfamethox No Sulfametho azole-Trime azole-Trime xazole-Tri thoprim thoprim methoprim 800-160 MG 800-160 MG 800-160 MG Cyclobenzap Cyclobenzap No Cyclobenza rine HCl 10 rine HCl 10 adán HCl MG MG 10 MG Clopidogrel Clopidogrel No Clopidogre Bisulfate Bisulfate l 75 mg 75 mg Bisulfate 75 mg OneTouch OneTouch No OneTouch Ultra Test Ultra Test Ultra Test - - - Coreg 25 MG Coreg 25 MG No 1{table BID Coreg 25 t} MG Plavix 75 Plavix 75 No 1{table QD Plavix 75 MG MG t} MG Epitol 200 Epitol 200 No Epitol 200 MG MG MG Tylenol 8 Tylenol 8 No 2{table TID Tylenol 8 Hour 650 MG Hour 650 MG ts_as_n Hour 650 eeded} MG Dexcom G6 Dexcom G6 No Dexcom G6 Fiscal Analyst - Fiscal Analyst - Fiscal Analyst - Lexapro 20 Lexapro 20 No Lexapro 20 MG MG MG HYDROcodone HYDROcodone No 1{table QID HYDROcodon -Acetaminop -Acetaminop t_as_ne e-Acetamin hen 7.5-325 hen 7.5-325 eded} ophen MG MG 7.5-325 MG OneTouch OneTouch No OneTouch Ultra - Ultra - Ultra - Santyl 250 Santyl 250 No Santyl 250 UNIT/GM UNIT/GM UNIT/GM HumuLIN HumuLIN No BID HumuLIN 70/30 70/30 70/30 (70-30) 100 (70-30) 100 (70-30) UNIT/ML UNIT/ML 100 UNIT/ML HumuLIN R HumuLIN R No TID HumuLIN R 100 UNIT/ML 100 UNIT/ML 100 UNIT/ML OneTouch OneTouch No QID OneTouch Ultra Test Ultra Test Ultra Test - - - ProAir HFA ProAir HFA No 2{puffs QID ProAir HFA 108 (90 108 (90 _as_nee 108 (90 Base) Base) ded} Base) MCG/ACT MCG/ACT MCG/ACT Atorvastati Atorvastati No Atorvastat n Calcium n Calcium in Calcium 80 mg 80 mg 80 mg amLODIPine amLODIPine No amLODIPine Besylate 5 Besylate 5 Besylate 5 MG MG MG Insulin Insulin No Insulin Syringe-Nee Syringe-Nee Syringe-Ne dle U-100 dle U-100 edle U-100 31G X 5/16" 31G X 5/16" 31G X 1 ML 1 ML 5/16" 1 ML HumuLIN R HumuLIN R No HumuLIN R 100 UNIT/ML 100 UNIT/ML 100 UNIT/ML Dexcom G6 Dexcom G6 No Dexcom G6 Transmitter Transmitter Transmitte - - r - Coreg 12.5 Coreg 12.5 No 1{table BID Coreg 12.5 MG MG t} MG traZODone traZODone No traZODone HCl 100 MG HCl 100 MG HCl 100 MG HumuLIN HumuLIN No HumuLIN 70/30 70/30 70/30 (70-30) 100 (70-30) 100 (70-30) UNIT/ML UNIT/ML 100 UNIT/ML Carvedilol Carvedilol No Carvedilol 12.5 MG 12.5 MG 12.5 MG Dexcom G6 Dexcom G6 No Dexcom G6 Sensor - Sensor - Sensor - Gabapentin Gabapentin No QID Gabapentin 600 MG 600 MG 600 MG Furosemide Furosemide No Furosemide 80 mg 80 mg 80 mg Diclofenac Diclofenac No Diclofenac Sodium 75 Sodium 75 Sodium 75 MG MG MG Neurontin Neurontin No 1{table Neurontin 600 MG 600 MG t} 600 MG Escitalopra Escitalopra No Escitalopr m Oxalate m Oxalate am Oxalate 20 mg 20 mg 20 mg traMADol traMADol No 1{table BID traMADol HCl 50 MG HCl 50 MG t_as_ne HCl 50 MG eded} Plavix 75 Plavix 75 No 1{table QD Plavix 75 MG MG t} MG Lipitor 80 Lipitor 80 No 1{table QD Lipitor 80 MG MG t} MG QUEtiapine QUEtiapine No 1{table QD QUEtiapine Fumarate Fumarate t_at_be Fumarate 150 MG 150 MG dtime} 150 MG Insulin Insulin No Insulin Syringe-Nee Syringe-Nee Syringe-Ne dle U-100 dle U-100 edle U-100 31G X 5/16" 31G X 5/16" 31G X 1 ML 1 ML 5/16" 1 ML Metoprolol Metoprolol No 1{table BID Metoprolol Tartrate 25 Tartrate 25 t_with_ Tartrate MG MG food} 25 MG Lipitor 80 Lipitor 80 No 1{table QD Lipitor 80 MG MG t} MG Coreg 25 MG Coreg 25 MG No 1{table BID Coreg 25 t} MG Santyl 250 Santyl 250 No Santyl 250 UNIT/GM UNIT/GM UNIT/GM Neurontin Neurontin No 1{table Neurontin 600 MG 600 MG t} 600 MG Lantus Lantus No QD Lantus SoloStar SoloStar SoloStar 100 UNIT/ML 100 UNIT/ML 100 UNIT/ML Plavix 75 Plavix 75 No 1{table QD Plavix 75 MG MG t} MG Acetaminoph Acetaminoph No 1{table 6xD Acetaminop en 325 MG en 325 MG t_as_ne hen 325 MG eded} Aspirin 81 Aspirin 81 No 1{table QD Aspirin 81 81 MG 81 MG t} 81 MG Escitalopra Escitalopra No Escitalopr m Oxalate m Oxalate am Oxalate 20 mg 20 mg 20 mg Gabapentin Gabapentin No QID Gabapentin 600 MG 600 MG 600 MG Furosemide Furosemide No 1{table QD Furosemide 40 MG 40 MG t} 40 MG HumuLIN R HumuLIN R No QID HumuLIN R 100 UNIT/ML 100 UNIT/ML 100 UNIT/ML QUEtiapine QUEtiapine No 1{table QD QUEtiapine Fumarate Fumarate t_at_be Fumarate 150 MG 150 MG dtime} 150 MG Insulin Insulin No Insulin Syringe-Nee Syringe-Nee Syringe-Ne dle U-100 dle U-100 edle U-100 31G X 5/16" 31G X 5/16" 31G X 1 ML 1 ML 5/16" 1 ML Metoprolol Metoprolol No 1{table BID Metoprolol Tartrate 25 Tartrate 25 t_with_ Tartrate MG MG food} 25 MG Lipitor 80 Lipitor 80 No 1{table QD Lipitor 80 MG MG t} MG Coreg 25 MG Coreg 25 MG No 1{table BID Coreg 25 t} MG Santyl 250 Santyl 250 No Santyl 250 UNIT/GM UNIT/GM UNIT/GM Neurontin Neurontin No 1{table Neurontin 600 MG 600 MG t} 600 MG Lantus Lantus No QD Lantus SoloStar SoloStar SoloStar 100 UNIT/ML 100 UNIT/ML 100 UNIT/ML Plavix 75 Plavix 75 No 1{table QD Plavix 75 MG MG t} MG Acetaminoph Acetaminoph No 1{table 6xD Acetaminop en 325 MG en 325 MG t_as_ne hen 325 MG eded} Aspirin 81 Aspirin 81 No 1{table QD Aspirin 81 81 MG 81 MG t} 81 MG Escitalopra Escitalopra No Escitalopr m Oxalate m Oxalate am Oxalate 20 mg 20 mg 20 mg Gabapentin Gabapentin No QID Gabapentin 600 MG 600 MG 600 MG Furosemide Furosemide No 1{table QD Furosemide 40 MG 40 MG t} 40 MG HumuLIN R HumuLIN R No QID HumuLIN R 100 UNIT/ML 100 UNIT/ML 100 UNIT/ML QUEtiapine QUEtiapine No 1{table QD QUEtiapine Fumarate Fumarate t_at_be Fumarate 150 MG 150 MG dtime} 150 MG Insulin Insulin No Insulin Syringe-Nee Syringe-Nee Syringe-Ne dle U-100 dle U-100 edle U-100 31G X 5/16" 31G X 5/16" 31G X 1 ML 1 ML 5/16" 1 ML Metoprolol Metoprolol No 1{table BID Metoprolol Tartrate 25 Tartrate 25 t_with_ Tartrate MG MG food} 25 MG Lipitor 80 Lipitor 80 No 1{table QD Lipitor 80 MG MG t} MG Coreg 25 MG Coreg 25 MG No 1{table BID Coreg 25 t} MG Santyl 250 Santyl 250 No Santyl 250 UNIT/GM UNIT/GM UNIT/GM Neurontin Neurontin No 1{table Neurontin 600 MG 600 MG t} 600 MG Lantus Lantus No QD Lantus SoloStar SoloStar SoloStar 100 UNIT/ML 100 UNIT/ML 100 UNIT/ML Plavix 75 Plavix 75 No 1{table QD Plavix 75 MG MG t} MG Acetaminoph Acetaminoph No 1{table 6xD Acetaminop en 325 MG en 325 MG t_as_ne hen 325 MG eded} Aspirin 81 Aspirin 81 No 1{table QD Aspirin 81 81 MG 81 MG t} 81 MG Escitalopra Escitalopra No Escitalopr m Oxalate m Oxalate am Oxalate 20 mg 20 mg 20 mg Gabapentin Gabapentin No QID Gabapentin 600 MG 600 MG 600 MG Furosemide Furosemide No 1{table QD Furosemide 40 MG 40 MG t} 40 MG HumuLIN R HumuLIN R No QID HumuLIN R 100 UNIT/ML 100 UNIT/ML 100 UNIT/ML OneTouch OneTouch Yes Michael USE TO Com mon Ultra Test Ultra Test [place] CHECK S pirit BLOOD - [facility] SUGAR FOUR TIMES [facility] Amlodipine Amlodipine Yes Michael TAKE 1 Common Besylate Besylate [place] TABLET BY S pirit MOUTH ONCE - [facility] A DAY [facility] Hydrochloro Hydrochloro Yes Michael TAKE 1 Common thiazide thiazide [place] TABLET BY S pirit MOUTH ONCE - [facility] A DAY IN [facility] Neurontin Neurontin Yes Michael 1 tablet Common [place] [facility] Novolin N Novolin N Yes Michael 50 units Common [place] [facility] Escitalopra Escitalopra Yes Michael 1 tablet Common m Oxalate m Oxalate [place] Spir it - [facility] Coreg Coreg Yes Michael 1 tablet Common [place] [facility] - [facility] NovoLog NovoLog Yes Michael sliding Comm on [place] scale 36 Spirit units - [facility] OneTouch OneTouch Yes Michael TEST BLOOD Common Ultra Test Ultra Test [place] GLUCOSE Spirit FOUR TIMES - [facility] A DAY [facility] ProAir HFA ProAir HFA Yes Michael 2 puffs as Common [place] needed [facility] Lipitor Lipitor Yes Michael 1 tablet Com mon [place] [facility] Gabapentin Gabapentin Yes Michael 1 tablet Common [place] [facility] Furosemide Furosemide Yes Michael 1 tablet Common [place] [facility] Lisinopril Lisinopril Yes Michael TAKE 1 Common [place] TABLET BY Spirit MOUTH ONCE - CHI A DAY [facility] Lexapro Lexapro Yes Michael TAKE 1 Commo n [place] TABLET BY Spirit MOUTH ONCE - [facility] DAILY [facility] Plavix Plavix Yes Michael TAKE 1 Common [place] TABLET BY Spirit MOUTH ONCE - [facility] DAILY [facility] Plavix Plavix Yes Michael 1 tablet Commo n [place] [facility] Furosemide Furosemide No Furosemide 80 MG [...] Dexcom G6 Dexcom G6 No Dexcom G6 Fiscal Analyst - Fiscal Analyst - Fiscal Analyst - Dexcom G6 Dexcom G6 No Dexcom [...] Dexcom G6 Dexcom G6 No Dexcom G6 Fiscal Analyst - Fiscal Analyst - Fiscal Analyst - Dexcom G6 Dexcom G6 No Dexcom [...] Dexcom G6 Dexcom G6 No Dexcom G6 Fiscal Analyst - Fiscal Analyst - Fiscal Analyst - Dexcom G6 Dexcom G6 No Dexcom G6 Sensor - Sensor - Sensor - Immunizations Ordered Filled Immunization Date Status Comments [facility] e Immunization Name [facility] [place] [id number] 2021-05-21 Completed [facility] Vaccine (Low Dose Vaccine (Low Dose 15:39:00 - [facility] Booster) Booster) [place] [address] 2021-05-21 Completed [facility] Vaccine (Low Dose Vaccine (Low Dose 15:39:[facility] - [facility] Booster) Booster) [place] [address] 2021-05-21 Completed [facility] Vaccine (Low Dose Vaccine (Low Dose 15:39:00 - [facility] Booster) Booster) [place] [address] 2021-05-21 Completed [facility] Vaccine (Low Dose Vaccine (Low Dose 15:39:00 - [facility] Booster) Booster) [place] [address] 2021-05-21 Completed [facility] Vaccine (Low Dose Vaccine (Low Dose 15:39:00 - [facility] Booster) Booster) [place] [address] 2021-05-21 Completed [facility] Vaccine (Low Dose Vaccine (Low Dose 15:39:00 - [facility] Booster) Booster) [place] [address] 2021-05-21 Completed [facility] Vaccine (Low Dose Vaccine (Low Dose 15:39:00 - [facility] Booster) Booster) [address] [facility] (Low Dose Vaccine (Low Dose 15:39:00 - [facility] Booster) Booster) [place] [address] 2021-05-21 Completed [facility] Vaccine (Low Dose Vaccine (Low Dose 15:39:00 - [facility] Booster) Booster) [place] [id number] [facility] COVID-19 2021-05-21 Completed [facility] Vaccine (Low Dose Vaccine (Low Dose 15:39:00 - [facility] Booster) Booster) [facility] COVID19 [facility] COVID-19 2021-05-21 Completed [facility] Vaccine (Low Dose Vaccine (Low Dose 15:39:00 - [facility] Booster) Booster) [facility] COVID19 [facility] COVID19 2021-05-21 Completed [facility] Vaccine (Low Dose Vaccine (Low Dose 15:39:00 - [facility] Booster) Booster) [facility] COVID19 [facility] COVID19 2021-05-21 Completed [facility] Vaccine (Low Dose Vaccine (Low Dose 15:39:00 - [facility] Booster) Booster) [facility] COVID19 [facility] COVID19 2021-05-21 Completed [facility] Vaccine (Low Dose Vaccine (Low Dose 15:39:00 - [facility] Booster) Booster) [facility] COVID-19 Vaccine COVID-19 Vaccine 2020-08-28 Completed Co [facility]Aidan[facility] (Aidan) 14:58:00 [facility] COVID-19 Vaccine COVID-19 Vaccine 2020-08-28 Completed [facility] (Aidan) 14:58:00 [facility] COVID-19 Vaccine COVID-19 Vaccine 2020-08-28 Completed [facility] (Aidan) 14:58:00 [facility] COVID-19 Vaccine COVID-19 Vaccine 2020-08-28 Completed [facility] (Aidan) 14:58:00 [facility] COVID-19 Vaccine COVID-19 Vaccine 2020-08-28 Completed [facility]idan) (Aidan) 14:58:00 [facility] COVID-19 Vaccine COVID-19 Vaccine 2020-08-28 Completed [facility] (Aidan) 14:58:00 [facility] COVID-19 Vaccine COVID-19 Vaccine 2020-08-28 Completed [facility]) (Aidan) 14:58:00 - [facility] COVID-19 Vaccine COVID-19 Vaccine 2020-08-28 Completed [facility]idan) (Aidan) 14:58:00 - [facility] COVID-19 Vaccine COVID-19 Vaccine 2020-08-28 Completed [facility] (Aidan) 14:58:00 [facility] COVID-19 Vaccine COVID-19 Vaccine 2020-08-28 Completed [facility]) (Aidan) 14:58:00 - [facility] COVID-19 Vaccine COVID-19 Vaccine 2020-08-28 Completed [facility]) (Aidan) 14:58:00 [facility] COVID-19 Vaccine COVID-19 Vaccine 2020-08-28 Completed [facility] (Aidan) 14:58:00 [facility] COVID-19 Vaccine COVID-19 Vaccine 2020-08-28 Completed [facility] (Aidan) 14:58:00 [facility] COVID-19 Vaccine COVID-19 Vaccine 2020-08-28 Completed [facility] (Aidan) 14:58:00 [facility] Moderna COVID-19 Moderna COVID-19 Unknown Completed [facility] Vaccine (Low Dose Vaccine (Low Dose - [facility] Booster) Booster) [facility] COVID-19 Vaccine COVID-19 Vaccine Unknown Completed [facility]Aidan) (Aidan) - [facility] Moderna COVID-19 Moderna COVID-19 Unknown Completed [facility] Vaccine (Low Dose Vaccine (Low Dose - [facility] Booster) Booster) [facility] COVID-19 Vaccine COVID-19 Vaccine Unknown Completed [facility] (Aidan) - [facility] Moderna COVID-19 Moderna COVID-19 Unknown Completed [facility] Vaccine (Low Dose Vaccine (Low Dose - [facility] Booster) Booster) [facility] COVID-19 Vaccine COVID-19 Vaccine Unknown Completed [facility] (Aidan) [facility] Moderna COVID-19 Moderna COVID-19 Unknown Completed [facility] Vaccine (Low Dose Vaccine (Low Dose - [facility] Booster) Booster) [facility] COVID-19 Vaccine COVID-19 Vaccine Unknown Completed [facility] (Aidan) - [facility] Vital Signs Vital Name Observation Time Observation Value Comments Source WEIGHT 2023-02-24 00:00:00 102.6 kg WEIGHT 2023-02-23 04:00:00 103.4 kg WEIGHT 2023-02-18 04:00:00 115.9 kg WEIGHT 2023-02-15 20:00:00 115 kg WEIGHT 2023-02-15 05:00:00 112.8 kg WEIGHT 2023-02-09 05:47:00 120.1 kg WEIGHT 2023-02-08 06:00:00 119.8 kg WEIGHT 2023-02-06 06:00:00 120 kg WEIGHT 2023-02-02 05:40:00 114.125 kg WEIGHT 2023-02-01 06:00:00 114.76 kg WEIGHT 2023-01-25 05:48:00 117 kg WEIGHT 2023-01-24 18:00:00 116.6 kg WEIGHT 2023-01-22 05:00:00 111.6 kg WEIGHT 2023-01-21 05:22:00 115.2 kg WEIGHT 2023-01-20 05:00:00 116.4 kg WEIGHT 2023-01-19 06:00:00 123.8 kg WEIGHT 2023-01-18 05:15:00 123.2 kg WEIGHT 2023-01-17 03:00:00 122.9 kg HEIGHT 2023-01-17 01:42:00 182.9 cm WEIGHT 2023-01-17 01:42:00 124.2 kg WEIGHT 2023-02-24 00:00:00 102.6 kg WEIGHT 2023-02-23 04:00:00 103.4 kg WEIGHT 2023-02-18 04:00:00 115.9 kg WEIGHT 2023-02-15 20:00:00 115 kg WEIGHT 2023-02-15 05:00:00 112.8 kg WEIGHT 2023-02-09 05:47:00 120.1 kg WEIGHT 2023-02-08 06:00:00 119.8 kg WEIGHT 2023-02-06 06:00:00 120 kg WEIGHT 2023-02-02 05:40:00 114.125 kg WEIGHT 2023-02-01 06:00:00 114.76 kg WEIGHT 2023-01-25 05:48:00 117 kg WEIGHT 2023-01-24 18:00:00 116.6 kg WEIGHT 2023-01-22 05:00:00 111.6 kg WEIGHT 2023-01-21 05:22:00 115.2 kg WEIGHT 2023-01-20 05:00:00 116.4 kg WEIGHT 2023-01-19 06:00:00 123.8 kg WEIGHT 2023-01-18 05:15:00 123.2 kg WEIGHT 2023-01-17 03:00:00 122.9 kg HEIGHT 2023-01-17 01:42:00 182.9 cm WEIGHT 2023-01-17 01:42:00 124.2 kg Systolic blood 2022-10-05 14:32:00 94 mm[Hg] Univer sity of pressure [facility] Diastolic blood 2022-10-05 14:32:00 54 mm[Hg] Unive rsity of [facility] Heart rate 2022-10-05 14:32:00 62 /min [facility] Body height 2022-10-05 14:32:00 180.3 cm [facility] Body weight 2022-10-05 14:32:00 127.914 kg [facility] BMI 2022-10-05 14:32:00 39.33 kg/m2 [facility] Oxygen saturation in 2022-10-05 14:32:00 97 /min [facility] Arterial blood by [facility] Pulse oximetry Branch height 2022-08-25 15:10:00 71 [in_i] Common S pirit [facility] weight 2022-08-25 15:10:00 272.0 [lb_av] [facility] temperature 2022-08-25 15:10:00 97.3 [degF] [facility] bmi 2022-08-25 15:10:00 37.93 kg[facility]m2 [facility] oximetry 2022-08-25 15:10:00 99 % [facility] respiratory rate 2022-08-25 15:10:00 18 /min Comm on [facility] blood pressure 2022-08-25 15:10:00 132 mm[Hg] Common [facility] - systolic [facility] blood pressure 2022-08-25 15:10:00 75 mm[Hg] [facility] - diastolic [facility] height 2022-08-25 15:20:00 71 [in_i] Common S [facility] weight 2022-08-25 15:20:00 272.0 [lb_av] [facility] temperature 2022-08-25 15:20:00 97.3 [degF] Common [facility] bmi 2022-08-25 15:20:00 37.93 kg/m2 [facility] oximetry 2022-08-25 15:20:00 99 % [facility] respiratory rate 2022-08-25 15:20:00 18 /min Comm on [facility] blood pressure 2022-08-25 15:20:00 132 mm[Hg] [facility] - systolic [facility] blood pressure 2022-08-25 15:20:00 75 mm[Hg] Common [facility] - diastolic [facility] height 2022-05-27 14:00:00 71 [in_i] Common [facility] weight 2022-05-27 14:00:00 271.4 [lb_av] [facility] temperature 2022-05-27 14:00:00 97.9 [degF] Common S [facility] bmi 2022-05-27 14:00:00 37.85 kg/m2 Common S [facility] blood pressure 2022-05-27 14:00:00 128 mm[Hg] [facility] - systolic [facility] blood pressure 2022-05-27 14:00:00 76 mm[Hg] [facility] - diastolic [facility] height 2022-05-25 15:30:00 71 [in_i] Common [facility] weight 2022-05-25 15:30:00 271.1 [lb_av] [facility] temperature 2022-05-25 15:30:00 97.6 [degF] Common [facility] bmi 2022-05-25 15:30:00 37.81 kg/m2 Common [facility] oximetry 2022-05-25 15:30:00 97 % [facility] respiratory rate 2022-05-25 15:30:00 17 /min Comm on [facility] blood pressure 2022-05-25 15:30:00 139 mm[Hg] Common [facility] - systolic [facility] blood pressure 2022-05-25 15:30:00 65 mm[Hg] Common [facility] diastolic [facility] height 2022-03-19 15:00:00 71 [in_i] Common [facility] weight 2022-03-19 15:00:00 272.6 [lb_av] [facility] temperature 2022-03-19 15:00:00 97.6 [degF] Common [facility] bmi 2022-03-19 15:00:00 38.02 kg/m2 [facility] oximetry 2022-03-19 15:00:00 95 % [facility] respiratory rate 2022-03-19 15:00:00 16 /min Comm on [facility] blood pressure 2022-03-19 15:00:00 129 mm[Hg] Common [facility] systolic [facility] blood pressure 2022-03-19 15:00:00 74 mm[Hg] Common [facility] diastolic [facility] Procedures Procedure Date / Time Performed Performing Clinician Felicitas FRANCO 2023-01-12 22:16:44 Layla Torres [facility] REFERRAL- 2022-09-29 05:01:00 [facility]ONSE Name Medical Branch REFERRAL- 2020-12-09 05:01:00 Doctor Unassigned, No [facility] REQUEST/RESPONSE Name Medical Branch MR ORBIT W WO CONTRAST 2020-04-11 17:19:58 Requisition, Paper [facility] MR BRAIN W WO CONTRAST 2020-04-11 17:18:18 Requisition, Paper Un [facility] ASSIGNMENT OF BENEFITS 2020-04-11 15:07:27 Doctor Unassigned, No [facility] Name Medical Branch Encounters Start End Encounter Admission Attending Care Care Encounter Source Date/Time Date/Time Type Type Clinicians Facility Department ID 2023-02-24 Inpatient UR WINN, SLEH SLEH [id number] SLEH 10:42:09 AUDELIA 2023-02-24 Inpatient UR WHEATLEY-SEVI SLEH SLEH [id number] SLEH 02:14:12 SHAINA RIVAS 2023-02-23 Inpatient UR ELLIE, SLEH SLEH [id number] SLEH 00:13:34 DOMINGO 2023-02-22 Inpatient UR ELLIE, SLEH SLEH [id number] SLEH 00:07:21 DOMINGO 2023-02-21 Inpatient UR BLAMO, SLEH SLEH [id number] SLEH 22:07:43 BARON 2023-02-21 Inpatient UR WINN, SLEH SLEH [id number] SLEH 19:24:32 AUDELIA 2023-02-21 Inpatient UR WINN, SLEH SLEH [id number] SLEH 17:38:00 AUDELIA 2023-02-21 Inpatient UR WINN, SLEH SLEH [id number] SLEH 14:03:19 AUDELIA 2023-02-21 Inpatient UR ELLIE, SLEH SLEH [id number] SLEH 00:06:13 DOMINGO 2023-02-20 Inpatient UR ELLIE, SLEH SLEH [id number] SLEH 00:29:53 DOMINGO 2023-02-19 Inpatient UR MOFOR, SLEH SLEH [id number] SLEH 16:46:12 [facility] 2023-02-19 Inpatient UR MOFOR, SLEH SLEH [id number] [facility] 10:48:42 [facility] UR [facility] SLEH SLEH [id number] SLEH 07:01:06 LLA, SHAINA 2023-02-19 Inpatient UR ELLIE, SLEH SLEH [id number] SLEH 00:42:11 DOMINGO 2023-02-18 Inpatient UR MOFOR, SLEH SLEH [id number] SLEH 14:26:26 LOE 2023-02-18 Inpatient UR ELLIE, SLEH SLEH [id number] SLEH 00:11:59 DOMINGO 2023-02-17 Inpatient UR MOFOR, SLEH SLEH [id number] SLEH 09:23:24 LOYCE 2023-02-17 Inpatient UR ELLIE, SLEH SLEH [id number] SLEH 01:40:06 DOMINGO 2023-02-16 Inpatient UR [facility] SLEH SLEH [id number] SLEH 09:30:10 LLA, SHAINA 2023-02-16 Inpatient UR ELLIE, SLEH SLEH [id number] SLEH 00:00:23 DOMINGO 2023-02-15 Inpatient UR ELLIE, SLEH SLEH [id number] SLEH 00:31:47 DOMINGO 2023-02-14 Inpatient UR ELLIE, SLEH SLEH [id number] SLEH 00:01:57 DOMINGO 2023-02-13 Inpatient UR ELLIE, SLEH SLEH [id number] SLEH 16:37:23 DOMINGO 2023-02-13 Inpatient UR ELLIE, SLEH SLEH [id number] SLEH 13:47:03 DOMINGO 2023-02-13 Inpatient UR ELLIE, SLEH SLEH [id number] SLEH 00:10:28 DOMINGO 2023-02-12 Inpatient UR ELLIE, SLEH SLEH [id number] SLEH 00:09:05 DOMINGO 2023-02-11 Inpatient UR ELLIE, SLEH SLEH [id number] SLEH 00:01:39 DOMINGO 2023-02-10 Inpatient UR ELLIE, SLEH SLEH [id number] SLEH 00:03:08 DOMINGO 2023-02-09 Inpatient UR ELLIE, SLEH SLEH [id number] SLEH 00:03:14 DOMINGO 2023-02-08 Inpatient UR ELLIE, SLEH SLEH [id number] SLEH 00:23:29 DOMINGO 2023-02-07 Inpatient UR CHE, SLEH SLEH [id number] SLEH 18:25:27 ROBB 2023-02-07 Inpatient UR ELLIE, SLEH SLEH [id number] SLEH 00:05:32 DOMINGO 2023-02-06 Inpatient UR TOSHIA, SLEH SLEH [id number] SLEH 10:17:27 BARON 2023-02-06 Inpatient UR SEN, SLEH SLEH [id number] SLEH 07:52:23 FACUNDO 2023-02-06 Inpatient UR NOTT, SLEH SLEH [id number] SLEH 07:52:09 MALCOLM 2023-02-06 Inpatient UR WHEATLEY-SEVI SLEH SLEH [id number] SLEH 06:31:36 LLA, SHAINA 2023-02-06 Inpatient UR [facility] SLEH SLEH [id number] SLEH 03:38:06 LLA, SHAINA 2023-02-06 Inpatient UR [facility] SLEH SLEH [id number] SLEH 03:16:00 LLA, SHAINA 2023-02-06 Inpatient UR CHERY, SLEH SLEH [id number] SLEH 02:14:49 LETTS 2023-02-06 Inpatient UR CHERY, SLEH SLEH [id number] SLEH 01:39:53 LETTS 2023-02-06 Inpatient UR WHE[facility]LEY[facility]VI SLEH SLEH [id number] SLEH 00:41:28 LLA, SHAINA 2023-02-06 Inpatient UR ELLIE, SLEH SLEH [id number] SLEH 00:19:44 DOMINGO 2023-02-05 Inpatient UR WHEAT[facility]VI SLEH SLEH [id number] SLEH 23:31:36 LLA, SHAINA 2023-02-05 Inpatient UR ELLIE, SLEH SLEH [id number] SLEH 00:33:09 DOMINGO 2023-02-04 Inpatient UR TAMMY, SLEH SLEH [id number] SLEH 21:49:24 MICHELLE 2023-02-04 Inpatient UR PAIGE, SLEH SLEH [id number] SLEH 12:45:03 SUBHASIS 2023-02-04 Inpatient UR [facility]ATLEY[facility]VI SLEH SLEH [id number] SLEH 02:11:36 LLASHAINA 2023 Inpatient UR LUDY-SLIM SLEH SLEH [id number] SLEH 18:23:35 , SIMAH 2023-02-01 Inpatient UR LOUIE, SLEH SLEH [id number] SLEH 13:06:22 PEREL 2023-02-01 Inpatient UR LOUIE, SLEH SLEH [id number] SLEH 13:06:15 PEREL 2023-02-01 Inpatient UR TAMMY, SLEH SLEH [id number] SLEH 13:06:00 RAMYAR 2023-02-01 Inpatient UR TAMMY, SLEH SLEH [id number] SLEH 13:05:51 RAMYAR 2023-02-01 Inpatient UR TAMMY, SLEH SLEH [id number] SLEH 00:00:00 RAMYAR 2023-01-27 Inpatient UR LESLIE, SLEH SLEH [id number] SLEH 10:26:05 BALA 2023-01-22 Inpatient UR LESLIE, SLEH SLEH [id number] SLEH 19:03:14 BALA 2023-01-22 Inpatient UR SLEH SLEH [id number] SLEH 11:43:40 2023-01-22 Inpatient UR SLEH SLEH [id number] SLEH 10:41:39 2023-01-22 Inpatient UR SLEH SLEH [id number] SLEH 09:28:49 2023-01-22 Inpatient UR SLEH SLEH [id number] SLEH 05:53:23 2023-01-22 Inpatient UR LESLIE, SLEH SLEH [id number] SLEH 00:00:00 BALA 2023-01-21 Inpatient UR BINU, SLEH SLEH [id number] SLEH 03:56:27 SCHUYLER 2023-01-20 Inpatient UR BINU, SLEH SLEH [id number] SLEH 00:43:31 SCHUYLER 2023-01-19 Inpatient UR CATALINA SLEH SLEH [id number] SLEH 15:44:00 DUSTIN 2023-01-19 Inpatient UR LAQUINDANUM SLEH SLEH [id number] SLEH 14:04:30 , RO 2023-01-19 Inpatient UR CATALINA SLEH SLEH [id number] SLEH 13:23:06 DUSTIN 2023-01-19 Inpatient UR CATALINA SLEH SLEH [id number] SLEH 10:47:50 DUSTIN 2023-01-19 Inpatient UR BINU SLEH SLEH [id number] SLEH 01:32:22 SCHUYLER 2023-01-18 Inpatient UR BINU, SLEH SLEH [id number] SLEH 04:02:25 SCHUYLER 2023-01-17 Inpatient UR SLEH SLEH [id number] SLEH 15:44:57 2023-01-17 Inpatient UR BRITTANEY SLEH SLEH [id number] SLEH 09:42:58 CELINA 2023-01-17 Inpatient UR BINU SLEH SLEH [id number] SLEH 05:37:02 SCHUYLER 2023-01-17 Inpatient UR SLEH SLEH [id number] SLEH 01:47:29 2023-01-17 Inpatient UR SLEH SLEH [id number] SLEH 01:47:23 2023-01-11 Outpatient [facility] [id number] [place] 09:49:33 [id number] [facility] 2022-12-30 Outpatient [facility] [id number] [place] 15:59:42 [id number] [facility] 2022-11-18 Outpatient [facility] [id number] [place] 14:53:40 [id number] [facility] 2022-08-21 Outpatient [place]on, [facility] [id number] Common 08:13:00 [facility] [address] [facility] 2022-08-20 Outpatient Grullon, [facility] [id number] Common 15:42:00 [facility] [address] [facility] 2022-05-27 Outpatient Grullon, [facility]C [facility] [id number] Common 13:34:01 [facility] [address] [facility] 2022-05-21 Outpatient Grullon, [facility]C [facility] [id number] Common 14:12:00 [facility] [address] [facility] 2022-04-28 Outpatient Grullon, [facility]MLC [facility] [id number] Common 15:58:01 Michael [facility] 2022-04-20 Outpatient Grullon, STLMLC STLMLC [id number] Common 12:08:00 Michael [facility] 2022-04-09 Outpatient Grullon, STLMLC STLMLC [id number] Common 09:12:00 Michael [facility] 2022-03-23 Outpatient Grullon, STLMLC STLMLC [id number] Common 07:50:00 Michael [facility] 2021-12-18 Outpatient Grullon, STLMLC STLMLC [id number] Common 08:02:00 Michael [facility] 2021-08-11 Outpatient Grullon, STLMLC STLC [id number] Common 16:05:00 Michael [facility] 2021-07-14 Outpatient Grullon, STLMLC STLMLC [id number] Common 13:55:00 Michael [facility] 2021-07-09 Outpatient Grullon, STLMLC STLMLC [id number] Common 14:23:13 Michael [facility] 2021-07-09 Outpatient Grullon, STLMLC STLMLC [id number] Common 14:22:30 Michael [facility] 2021-07-09 Outpatient Grullon, STLMLC STLMLC [id number] Common 13:29:39 Michael [facility] 2021-07-09 Outpatient Grullon, STLMLC STLMLC [id number] Common 13:26:23 Michael [id number] [facility] 2021-07-09 Outpatient Grullon, STLMLC STLMLC [id number] Common 13:17:32 Michael [facility] 2021-07-09 Outpatient Grullon, STLMLC STLMLC [id number] Common 13:06:07 Michael 64104 [facility] 2021-07-09 Outpatient Grullon, STLMLC STLMLC [id number] Common 13:02:38 Michael 47903 [facility] 2021-07-09 Outpatient Grullon, STLMLC STLC [id number] Common 13:01:30 Mihcael 53004 [facility] 2021-07-09 Outpatient Grullon, STLMLC STLC [id number] Common 12:41:52 Michael 42957 [facility] 2021-07-09 Outpatient Grullon, STLMLC STLC [id number] Common 12:41:22 Michael 40043 [facility] 2021-07-09 Outpatient Grullon, STLMLC STLC [id number] Common 12:40:21 Michael 54829 [facility] 2021-07-09 Outpatient Grullon, STLMLC STLC [id number] Common 12:09:50 Michael 16653 [facility] 2021-07-09 Outpatient Grullon, STLMLC STLC [id number] Common 12:08:25 Michael 17484 [facility] 2021-07-09 Outpatient Grullon, STLMLC STLC [id number] Common 12:07:24 Michael 73327 [facility] 2021-07-09 Outpatient Grullon, STLMLC STLC [id number] Common 11:39:10 Michael 62417 [facility] 2021-07-09 Outpatient Grullon, STLMLC STLC [id number] Common 11:27:55 Michael 06571 [facility] 2021-07-09 Outpatient Grullon, STLMLC STLC [id number] Common 11:20:48 Michael 68102 [facility] 2021-07-09 Outpatient Grullon, STLMLC STLC [id number] Common 11:15:28 Michael 43473 [facility] 2023-01-17 2023-02-24 Inpatient UR [facility] Surgery [id number] [facility] 01:16:00 18:05:00 SHAINA RIVAS 2023-02-18 2023-02-18 Inpatient UR NURIA, SLEH SLEH [id number] SLEH 14:25:12 00:00:00 DANIEL 2023-02-16 2023-02-16 Outpatient ELLIE, SLEH SLEH [id number] SLEH 00:00:00 00:00:00 DOMINGO 2023-02-02 2023-02-02 Inpatient UR TAMMY, SLEH SLE [id number] SLEH 13:27:14 23:59:00 RAMYAR 2023-01-30 2023-01-30 Inpatient UR CELESTINA, SLEH [facility] [id number] SLEH 16:54:07 23:59:00 SUMAYA 2023-01-22 2023-01-21 Inpatient UR NIXON, SLEH SLEH [id number] SLEH 00:22:23 00:00:00 MONIQUE 2023-01-22 2023-01-21 Inpatient UR NIXON, SLEH [facility] [id number] SLEH 00:22:01 00:00:00 MONIQUE 2023-01-19 2023-01-19 Inpatient UR CATALINA, SLEH [facility] [id number] SLEH 06:21:07 00:00:00 DUSTIN 2023-01-18 2023-01-18 Outpatient ALEJO SCHAEFER [facility] [id number] [facility] 16:00:00 16:00:00 ALEJO ANDINO [facility] 2023-01-17 2023-01-17 Inpatient UR , SLEH [facility] [id number] SLE 15:16:18 00:00:00 MOHAMMED 2023-01-11 2023-01-11 Ancillary Brian, [facility] [id number] [place] 10:00:00 11:00:05 Procedure Layla DICKEY [id number] [facility] [id number] 2022-12-28 2022-12-28 Outpatient ALEJO SCHAEFER [facility] [id number] Univers 14:40:00 14:40:00 ALEJO ANDINO [facility] 2022-12-14 2022-12-14 Outpatient R ALEJO ANDINO [facility] [id number] Univers 15:40:00 15:40:00 ALEJO ANDINO [facility] 2022-12-10 2022-12-10 Telephone Carito [facility] [id number] Univers 00:00:00 00:00:00 [facility] [id number] ity of [place] [id number] Nolan as AIDAN?BLEA [id number] [address] MEDICAL OFFICE [facility] 2022-11-10 2022-11-10 Telephone Carito [facility] [id number] Univers 00:00:00 00:00:00 [facility] [id number] ity of [place] [id number] Nolan as AIDAN?BLEA [id number] [address] OFFICE [facility] 2022-10-05 2022-10-05 Outpatient ALEJO SCHAEFER [facility] [id number] Univers 09:20:00 10:23:04 ALEJO ANDINO rai [facility] 2022-10-05 2022-10-05 Office Carito [facility] [id number] Univers 09:20:00 10:23:04 Visit [facility] [id number] ity of [place] [id number] Nolan as AIDAN?BLEA [id number] [address] OFFICE [facility] 2022-09-29 2022-09-29 Orders Doctor RIVAS [id number] Univers 00:00:00 00:00:00 Only Unassigned, KAMALJIT [id number] ity of [place] [facility] [id number] Nolan as [id number] [address] 2022-08-25 2022-08-25 OFFICE [facility] [id number] Co mmon 00:00:00 00:00:00 VISIT Spirit ESTAB PT - CHI LEVEL 4 [facility] 2022-08-25 2022-08-25 SUB ANNUAL STLMLC STLMLC [id number] Common 00:00:00 00:00:00 MCR [facility] VISIT [facility] 2022-08-20 2022-08-20 (TEL) STLMLC STLMLC [id number] Co mmon 00:00:00 00:00:00 [facility] 2022-08-03 2022-08-03 (TEL) STLMLC STLMLC [id number] Co mmon 00:00:00 00:00:00 [facility] 2022-07-22 2022-07-22 Outpatient ZACH Bonds, [facility] OUTD [id number] [facility] 05:25:00 05:25:00 Keyur 26 [facility] 2022-07-22 2022-07-22 (TEL) STLMLC STLMLC [id number] Co mmon 00:00:00 00:00:00 [facility] 2022-07-13 2022-07-13 (TEL) STLMLC STLMLC [id number] Co mmon 00:00:00 00:00:00 [facility] 2022-06-30 2022-06-30 (TEL) STLMLC STLMLC [id number] Co mmon 00:00:00 00:00:00 [facility] 2022-06-24 2022-06-24 (TEL) STLMLC STLMLC [id number] Co mmon 00:00:00 00:00:00 [facility] 2022-06-16 2022-06-16 (TEL) STLMLC STLMLC [id number] Co mmon 00:00:00 00:00:00 [facility] 2022-06-02 2022-06-02 (TEL) STLMLC STLMLC [id number] Co mmon 00:00:00 00:00:00 [facility] 2022-05-27 2022-05-27 OFFICE STLMLC STLMLC [id number] Co mmon 00:00:00 00:00:00 VISIT EST Spir it PT LEVEL 3 [facility] 2022-05-25 2022-05-25 OFFICE STLMLC STLMLC [id number] Co mmon 00:00:00 00:00:00 VISIT [facility] PT - [facility] LEVEL 4 [facility] 2022-04-28 2022-04-28 (TEL) STLMLC STLMLC [id number] Co mmon 00:00:00 00:00:00 [facility] 2022-04-09 2022-04-09 (TEL) STLMLC STLMLC [id number] Co mmon 00:00:00 00:00:00 [facility] 2022-04-09 2022-04-09 (TEL) STLMLC STLMLC [id number] Co mmon 00:00:00 00:00:00 [facility] 2022-04-06 2022-04-06 (TEL) STLMLC STLMLC [id number] Co mmon 00:00:00 00:00:00 [facility] 2022-03-27 2022-03-27 (TEL) STLMLC STLMLC [id number] Co mmon 00:00:00 00:00:00 [facility] 2022-03-19 2022-03-19 OFFICE STLMLC STLMLC [id number] Co mmon 00:00:00 00:00:00 VISIT [facility] PT - [address] 2021-12-31 2021-12-31 ambulatory STLMLC STLMLC [id number] Common 00:00:00 00:00:00 [facility] 2021-12-31 2021-12-31 ambulatory STLMLC STLMLC [id number] Common 00:00:00 00:00:00 [facility] 2021-12-23 2021-12-23 ambulatory STLMLC STLMLC [id number] Common 00:00:00 00:00:00 [facility] 2021-12-22 2021-12-22 ambulatory STLMLC STLMLC [id number] Common 00:00:00 00:00:00 [facility] 2021-12-17 2021-12-17 ambulatory STLMLC STLMLC [id number] Common 00:00:00 00:00:00 [facility] 2021-11-21 2021-11-21 ambulatory STLMLC STLMLC [id number] Common 00:00:00 00:00:00 [facility] 2021-09-03 2021-09-03 ambulatory STLMLC STLMLC [id number] Common 00:00:00 00:00:00 [facility] 2021-09-03 2021-09-03 ambulatory STLMLC STLMLC [id number] Common 00:00:00 00:00:00 [facility] 2021-07-14 2021-07-14 ambulatory STLMLC STLMLC [id number] Common 00:00:00 00:00:00 [facility] 2021-07-07 2021-07-07 ambulatory STLMLC STLMLC [id number] Common 00:00:00 00:00:00 [facility] 2021-06-10 2021-06-10 ambulatory STLMLC STLMLC [id number] Common 00:00:00 00:00:00 [facility] 2021-05-21 2021-05-21 ambulatory STLMLC STLMLC [id number] Common 00:00:00 00:00:00 [facility] 2021-05-21 2021-05-21 ambulatory STLMLC STLMLC [id number] Common 00:00:00 00:00:00 [facility] 2021-05-14 2021-05-14 ambulatory STLMLC STLMLC [id number] Common 00:00:00 00:00:00 [facility] 2021-05-12 2021-05-12 ambulatory STLMLC STLMLC [id number] Common 00:00:00 00:00:00 [facility] 2021-04-07 2021-04-07 ambulatory STLMLC STLMLC [id number] Common 00:00:00 00:00:00 [facility] 2021-03-18 2021-03-18 Outpatient STLMLC STLMLC [id number] Common 00:00:00 00:00:00 [facility] 2021-03-17 2021-03-17 Outpatient STLMLC STLMLC [id number] Common 00:00:00 00:00:00 [facility] 2021-01-16 2021-01-16 EVELYN [id number] Univers 00:00:00 00:00:00 (Out) Michael M KAMALJIT [id number] i ty of HOSPITAL [id number] [place] as [phone] [facility] [address] 2021-01-15 2021-01-15 Outpatient STLMLC STLMLC [id number] Common 00:00:00 00:00:00 [facility] 2021-01-15 2021-01-15 Outpatient STLMLC STLMLC [id number] Common 00:00:00 00:00:00 [facility] 2021-01-15 2021-01-15 Outpatient STLMLC STLMLC [id number] Common 00:00:00 00:00:00 [facility] 2021-01-14 2021-01-14 Outpatient STLMLC STLMLC [id number] Common 00:00:00 00:00:00 [facility] 2020-12-31 2020-12-31 Outpatient STLMLC STLMLC [id number] Common 00:00:00 00:00:00 [facility] 2020-12-23 2020-12-23 Patient Doctor EVELYN [id number] Univers 00:00:00 00:00:00 Secure Msg Unassigned, KAMALJIT [id number] ity of [place] [facility] [id number] Nolan as [phone] [facility] [place] [address] 2020-12-09 2020-12-09 Orders Doctor EVELYN [id number] Univers 00:00:00 00:00:00 Only Unassigned, KAMALJIT [id number] ity of [place] [facility] [id number] Nolna as [phone] [facility] [place] [address] 2020-12-02 2020-12-02 Outpatient STLMLC STLMLC [id number] Common 00:00:00 00:00:00 [facility] 2020-12-02 2020-12-02 Outpatient STLMLC STLMLC [id number] Common 00:00:00 00:00:00 [facility] 2020-11-18 2020-11-18 Outpatient STLMLC STLMLC [id number] Common 00:00:00 00:00:00 [facility] 2020-11-05 2020-11-05 Outpatient STLMLC STLMLC [id number] Common 00:00:00 00:00:00 [facility] 2020-11-04 2020-11-04 Outpatient STLMLC STLMLC [id number] Common 00:00:00 00:00:00 [facility] 2020-10-25 2020-10-25 Outpatient STLMLC STLMLC [id number] Common 00:00:00 00:00:00 [facility] 2020-10-16 2020-10-16 Outpatient STLMLC STLMLC [id number] Common 00:00:00 00:00:00 [facility] 2020-10-15 2020-10-15 Outpatient STLMLC STLMLC [id number] Common 00:00:00 00:00:00 [facility] 2020-10-15 2020-10-15 Outpatient STLMLC STLMLC [id number] Common 00:00:00 00:00:00 [facility] 2020-09-26 2020-09-26 Outpatient STLMLC STLMLC [id number] Common 00:00:00 00:00:00 [facility] 2020-08-28 2020-08-28 Outpatient STLMLC STLMLC [id number] Common 00:00:00 00:00:00 [facility] 2020-08-27 2020-08-27 Outpatient STLMLC STLMLC [id number] Common 00:00:00 00:00:00 [facility] 2020-05-14 2020-05-14 Outpatient STLMLC STLMLC [id number] Common 00:00:00 00:00:00 [facility] 2020-05-06 2020-05-06 Outpatient STLMLC STLMLC [id number] Common 00:00:00 00:00:00 [facility] 2020-04-11 2020-04-11 [facility] Radiology [facility] [id number] 10:11:59 23:59:00 Encounter [place] [id number] [place] [id number] [place] [phone] [facility] 2020-04-11 2020-04-11 [facility] Radiology [facility] [id number] Univers 10:11:59 23:59:00 Encounter [place] [id number] ity of [place] [id number] [facility] [id number] [address] 2020-04-11 2020-04-11 [facility] Radiology [facility] [id number] 10:11:08 23:59:00 Encounter [place] [id number] [place] [id number] [place] [id number] [facility] 2020-04-11 2020-04-11 [facility] Radiology [place] [id number] [facility] 10:11:08 23:59:00 Encounter [place] [id number] ity of [place] [id number] [facility] [id number] [address] 2020-04-11 2020-04-11 Outpatient R RADIOLOGY [facility] [id number] Univers 00:00:00 00:00:00 ity of [facility] 2020-04-11 2020-04-11 Orders Doctor RIVAS [id number] 00:00:00 00:00:00 Only Unassigned, KAMALJIT [id number] [place] [facility] [id number] [id number] 009 2020-04-11 2020-04-11 Orders Doctor RIVAS [id number] Univers 00:00:00 00:00:00 Only Unassigned, KAMALJIT [id number] ity of [place] [facility] [id number] [place] as [phone] [place] [address] [address] 2020-02-07 2020-02-07 [facility] [id number] Common 11:20:00 11:20:[address] [facility] 2020-01-29 2020-01-29 [facility] [id number] Common 11:40:00 11:40:[address] [facility] 2020-01-16 2020-01-16 [facility] [id number] Common 11:15:00 11:15:[address] [facility] 2019-12-04 2019-12-04 [facility] [id number] Common 10:50:00 10:50:[address] [facility] 2019-11-08 2019-11-08 [facility] [id number] Common 15:00:00 15:00:[address] [facility] 2019-11-08 2019-11-08 [facility] [id number] Common 14:15:00 14:15:[address] [facility] 2019-10-27 2019-10-27 [facility] [id number] Common 11:15:00 11:15:[address] [facility] 2019-10-24 2019-10-24 [facility] [id number] Common 16:04:00 16:04:[address] [facility] 2019-10-20 2019-10-20 [facility] [id number] Common 13:40:00 13:40:[address] [facility] 2019-10-18 2019-10-18 [facility] [id number] Common 14:05:00 14:05:[address] [facility] 2019-09-21 2019-09-21 [facility] [id number] Common 16:45:00 16:45:[address] [facility] 2019-09-05 2019-09-05 [facility] [id number] Common 10:30:00 10:30:[address] [facility] 2019-08-08 2019-08-08 [facility] [id number] Common 15:00:00 15:00:[address] [facility] 2019-07-26 2019-07-26 [facility] [id number] Common 16:37:00 16:37:[address] [facility] 2019-06-22 2019-06-22 [facility] [id number] Common 14:45:00 14:45:[address] [facility] 2019-06-19 2019-06-19 [facility] [id number] Common 15:45:00 15:45:[address] [facility] 2019-05-31 2019-05-31 [facility] [id number] Common 15:15:00 15:15:[address] [facility] 2019-05-03 2019-05-03 [facility] [id number] Common 10:37:00 10:37:[address] [facility] 2019-04-17 2019-04-17 [facility] [id number] Common 14:08:00 14:08:[address] [facility] 2019-04-17 2019-04-17 [facility] [id number] Common 13:30:00 13:30:[address] [facility] 2019-03-28 2019-03-28 [facility] [id number] Common 14:44:00 14:44:[address] [facility] 2019-03-23 2019-03-23 [facility] [id number] Common 14:15:00 14:15:[address] [facility] 2019-03-02 2019-03-02 [facility] [id number] Common 15:10:00 15:10:[address] [facility] 2019-02-23 2019-02-23 [facility] [id number] Common 10:00:00 10:00:[address] [facility] 2019-01-20 2019-01-20 [facility] [id number] Common 13:43:00 13:43:[address] [facility] 2018-12-29 2018-12-29 [facility] [id number] Common 14:42:00 14:42:[address] [facility] 2018-12-21 2018-12-21 [facility] [id number] Common 14:30:00 14:30:[address] [facility] 2018-12-06 2018-12-06 [facility] [id number] Common 14:04:00 14:04:[address] [facility] 2018-10-10 2018-10-10 [facility] [id number] Common 15:00:00 15:00:[address] [facility] 2018-09-16 2018-09-16 [facility] [id number] Common 11:25:00 11:25:[address] [facility] 2018-09-12 2018-09-12 [facility] [id number] Common 14:15:00 14:15:[address] [facility] 2018-08-11 2018-08-11 [facility] [id number] Common 13:45:00 13:45:[address] [facility] 2018-06-21 2018-06-21 [facility] [id number] Common 10:15:00 10:15:[address] [facility] 2018-05-30 2018-05-30 [facility] [id number] Common 10:28:00 10:28:[address] [facility] 2018-03-16 2018-03-16 [facility] [id number] Common 15:07:00 15:07:[address] [facility] 2018-03-14 2018-03-14 [facility] [id number] Common 15:00:00 15:00:[address] [facility] 2018-02-28 2018-02-28 [facility] [id number] Common 16:46:00 16:46:[address] [facility] 2018-02-11 2018-02-11 [facility] [id number] Common 09:17:00 09:17:[address] [facility] 2018-02-04 2018-02-04 [facility] [id number] Common 14:14:00 14:14:[address] [facility] 2018 2018 [facility] [id number] Common 15:57:00 15:57:[address] [facility] 2018-01-12 2018-01-12 [facility] [id number] Common 14:34:00 14:34:[address] [facility] 2018-01-10 2018-01-10 [facility] [id number] Common 15:15:00 15:15:[address] [facility] 2017-11-22 2017-11-22 [facility] [id number] Common 09:36:00 09:36:[address] [facility] 2017-11-10 2017-11-10 [facility] [id number] Common 13:30:00 13:30:[address] [facility] 2017-09-29 2017-09-29 [facility] [id number] Common 13:00:00 13:00:[address] [facility] Results Test Description Test Time Test Comments Results Result Comments Source BLOOD CULTURE 2023-02-24 22:01:15 Test Item Value Reference Range Interpretation Comme nts CULTURE (BEAKER) (test code = 1095) No growth in 5 days The specimen volume collected for this blood culture was below the optimum (10 mL per bottle or 20 mL total). Use of lower volumes may adversely affect recovery and/or detection times of some organisms.BLOOD [id number] 22:01:14 Test Item Value Reference Range Interpretation Comments CULTURE (BEAKER) (test No growth in 5 days code = 1095) The specimen volume collected for this blood culture was below the optimum (10 mL per bottle or 20 mL total). Use of lower volumes may adversely affect recovery and/or detection times of some organisms.POCT-GLUCOSE [id number] 12:42:06 Test Item Value Reference Range Interpretation Comments POC-GLUCOSE METER 201 mg/dL 70-110 H : TESTED A T [facility] 6720 (BEAKER) (test code = [place], 1538) 01034: Concrete Building Assembler/Techni marissa ID = [id number] for Valerie lane HEPATIC FUNCTION [id number] 12:36:00 Test Item Value Reference Range Interpretation Comments TOTAL PROTEIN (BEAKER) 6.5 gm/dL 6.0-8.3 Speci men slightly (test code = 770) hemolyzed ALBUMIN (BEAKER) (test 2.7 g/dL 3.5-5.0 L Speci men slightly code = 1145) hemolyzed BILIRUBIN TOTAL 0.5 mg/dL 0.2-1.2 Specimen sli ghtly (BEAKER) (test code = hemoly zed 377) BILIRUBIN DIRECT 0.2 mg/dL 0.1-0.5 Specimen sl ightly (BEAKER) (test code = hemoly zed 706) ALKALINE PHOSPHATASE 198 U/L 40-150 H (BEAKER) (test code = 346) AST (SGOT) (BEAKER) 31 U/L 5-34 Specimen slightly (test code = 353) hemolyzed ALT (SGPT) (BEAKER) 18 U/L 6-55 Specimen slightly (test code = 347) hemolyzed Concrete Building Assembler ID - ADMINBRONCHIAL CULTURE + GRAM [id number] 11:37:11 Test Item Value Reference Range Interpretation Comments CULTURE (BEAKER) (test code No growth = 1095) GRAM STAIN RESULT (BEAKER) 2+ WBCs (test code = 1123) GRAM STAIN RESULT (BEAKER) No organisms seen (test code = 78408) BRONCHIAL CULTURE + GRAM [id number] 11:36:43 Test Item Value Reference Range Interpretation Comments CULTURE (BEAKER) (test code No growth = 1095) GRAM STAIN RESULT (BEAKER) 2+ WBCs (test code = 1123) GRAM STAIN RESULT (BEAKER) No organisms seen (test code = 53535) XR ABDOMEN/KUB 1 VIEW [id number] 11:22:51 [facility] : 1965 Sex: MXR ABDOMEN/KUB 1 VIEW PORTABLECLINICAL INDICATION: abdominal pain COMPARISON: NoneTECHNIQUE: Single, frontal radiograph of the abdomen.FINDINGS:Status post placement of G- tube.The bowel gas pattern is nonspecific, but nonobstructive.Evaluation for free air is limited by portable supine technique. Withinthese limitations, no free air is identified. Electronically Signed By: Mavis Vinson02/24/2023 11:24 CDTWorkstation Name: [id number] 10:21:27 Test Item Value Reference Range Interpretation Comments POC-GLUCOSE METER 191 mg/dL 70-110 H : TESTED A T [facility] 6720 ([place]) (test code = [place], 1538) 65930: Concrete Building Assembler/Techni marissa ID = [id number] for Dionna Galarza XR CHEST 1 VIEW PORTABLE / [id number] 07:03:59 [facility] : 1965 Sex: MXR CHEST 1 VIEW PORTABLE / BEDSIDEINDICATION: post-opCOMPARISON: Prior day's examFINDINGS: Portable frontal view of the chest. IMPRESSION:Support Lines: Tracheostomy. PICC tip overlies the right axilla.Lungsand pleura: Unchanged bilateral airspace opacities concerning formultifocal pneumonia versus multifocal edema. No significantpneumothorax.Heart and mediastinum: Stable contours. Stable surgical changes.Additional findings: None. Electronically Signed By: Mavis Vinson02/24/2023 07:06 CDTWorkstation Name: [id number] METER 2023-02-24 06:36:47 Test Item Value Reference Range Interpretation Comments POC-GLUCOSE METER 214 mg/dL 70-110 H : TESTED A T [facility] 6720 (BEAKER) (test code = [place], 1538) 95137: Concrete Building Assembler/Techni marissa ID = [id number] for Ng Trace dominguez [id number] 05:26:35 Test Item Value Reference Range Interpretation Comments PHOSPHORUS (BEAKER) (test code = 4.1 mg/dL 2.3-4.7 604) Concrete Building Assembler ID - JOEL [id number] 05:26:08 Test Item Value Reference Range Interpretation Comments MAGNESIUM (BEAKER) (test code = 2.2 mg/dL 1.6-2.6 627) Concrete Building Assembler ID - JOEL BBASIC METABOLIC [id number] 05:26:07 Test Item Value Reference Range Interpretation Comments SODIUM (BEAKER) 144 meq/L 136-145 (test code = 381) POTASSIUM 4.5 meq/L 3.5-5.1 (BEAKER) (test code = 379) CHLORIDE (BEAKER) 106 meq/L 98-107 (test code = 382) CO2 (BEAKER) 27 meq/L 22-29 (test code = 355) BLOOD UREA 31 mg/dL 7-21 H NITROGEN (BEAKER) (test code = 354) CREATININE 1.35 mg/dL 0.57-1.25 H (BEAKER) (test code = 358) GLUCOSE RANDOM 202 mg/dL 70-105 H (BEAKER) (test code = 652) CALCIUM (BEAKER) 8.8 mg/dL 8.4-10.2 (test code = 697) EGFR (BEAKER) 61 Interpretati on of eGFR (test code = mL/min/1.73 values Stage De scription 1092) sq m Result G1 Lucy l or high >=90 G2 Mildly decreased 60-89 G3a Mildl y to moderately 45-5 9 G3b Moderately to s everely 30-44 G4 Severl y decreased 15-29 G5 Kidney failure <15Reported eGF R is based on the CKD-EPI 2020 equation that d oes not use a race coefficientEsti mated GFR is not as accur ate as Creatinine Zuri warner in predicting glom erular filtration rate . Estimated GFR is not appl icable for dialysis patien ts Concrete Building Assembler ID - JOEL BPOCT-GLUCOSE [id number] 04:40:22 Test Item Value Reference Range Interpretation Comments POC-GLUCOSE METER 190 mg/dL 70-110 H : TESTED A T [facility] 6720 (BEAKER) (test code = [facility], 153) 32213: Concrete Building Assembler/Techni marissa ID = [id number] for Ng angelica, Vincent POCT-GLUCOSE [id number] 00:27:31 Test Item Value Reference Range Interpretation Comments POC-GLUCOSE METER 208 mg/dL 70-110 H : TESTED A T [facility] 6720 (BEAKER) (test code = [facility], [facility]8) 64658: Concrete Building Assembler/Techni marissa ID = [id number] for Ng angelica, Vincent POCT-GLUCOSE [id number] 21:21:37 Test Item Value Reference Range Interpretation Comments POC-GLUCOSE METER 179 mg/dL 70-110 H : TESTED A T [facility] 6720 (BEAKER) (test code = [facility], [facility]) 14254: Concrete Building Assembler/Techni marissa ID = [id number] for Ng angelica, Vincent POCT-GLUCOSE [id number] 18:44:33 Test Item Value Reference Range Interpretation Comments POC-GLUCOSE METER 190 mg/dL 70-110 H : TESTED A T [facility] 6720 (BEAKER) (test code = [facility], [facility]8) 20961: Concrete Building Assembler/Techni marissa ID = [id number] for Br others, Lacy POCT-GLUCOSE [id number] 17:18:53 Test Item Value Reference Range Interpretation Comments POC-GLUCOSE METER 190 mg/dL 70-110 H : TESTED A T [facility] 6720 (BEAKER) (test code = [facility], 1538) 93579: Concrete Building Assembler/Techni marissa ID = [id number] for Br others, Lacy BASIC METABOLIC [id number] 17:10:33 Test Item Value Reference Range Interpretation Comments SODIUM (BEAKER) 144 meq/L 136-145 (test code = 381) POTASSIUM 4.2 meq/L 3.5-5.1 Specimen slight ly (BEAKER) (test hemolyzed code = 379) CHLORIDE (BEAKER) 105 meq/L 98-107 (test code = 382) CO2 (BEAKER) 30 meq/L 22-29 H (test code = 355) BLOOD UREA 30 mg/dL 7-21 H NITROGEN (BEAKER) (test code = 354) CREATININE 1.38 mg/dL 0.57-1.25 H Specimen slight ly (BEAKER) (test hemolyzed code = 358) GLUCOSE RANDOM 184 mg/dL 70-105 H (BEAKER) (test code = 652) CALCIUM (BEAKER) 9.0 mg/dL 8.4-10.2 (test code = 697) EGFR (BEAKER) 59 Interpretatio n of eGFR (test code = mL/min/1.73 values Stage De scription 1092) sq m Result G1 Lucy l or high >=90 G2 Mildly decreased 60-89 G3a Mildl y to moderately 45-5 9 G3b Moderately to s everely 30-44 G4 Sever ly decreased 15-29 G5 Kidney failure <15Repo rted eGFR is based on the CKD-EPI 2020 equation t hat does not use a race coefficientEsti mated GFR is not as accur ate as Creatinine Zuri hylton in predicting glom erular filtration rate . Estimated GFR is not appl icable for dialysis patien ts Concrete Building Assembler ID - JOEL [id number] 17:10:32 Test Item Value Reference Range Interpretation Comments PHOSPHORUS (BEAKER) 4.6 mg/dL 2.3-4.7 Specimen slightly (test code = 604) hemolyzed Concrete Building Assembler ID - JOEL [id number] 17:10:31 Test Item Value Reference Range Interpretation Comments MAGNESIUM (BEAKER) 2.0 mg/dL 1.6-2.6 Specimen slightly (test code = 627) hemolyzed Concrete Building Assembler ID - JOEL BPOCT-GLUCOSE [id number] 16:00:35 Test Item Value Reference Range Interpretation Comments POC-GLUCOSE METER 159 mg/dL 70-110 H : TESTED A T [facility] 6720 (BEAKER) (test code = [place], 1538) 96458: Concrete Building Assembler/Techni marissa ID = [id number] for Sangeetha salter Lacy POCT-GLUCOSE [id number] 14:18:33 Test Item Value Reference Range Interpretation Comments POC-GLUCOSE METER 110 mg/dL 70-110 : TESTED A T [facility] 6720 (BEAKER) (test code = [facility], 1538) 54025: Concrete Building Assembler/Techni marissa ID = [id number] for Br others, Lacy POCT-GLUCOSE [id number] 13:31:29 Test Item Value Reference Range Interpretation Comments POC-GLUCOSE METER 96 mg/dL 70-110 : TESTED A T [facility] 6720 (BEAKER) (test code = [facility], 1538) 78918: Concrete Building Assembler/Techni marissa ID = [id number] for Brot hers, Lacy POCT-GLUCOSE [id number] 12:46:27 Test Item Value Reference Range Interpretation Comments POC-GLUCOSE METER 79 mg/dL 70-110 : TESTED A T [facility] 6720 (BEAKER) (test code = [facility], 1538) 11535: Concrete Building Assembler/Techni marissa ID = [id number] for Brot hers, Lacy POCT-GLUCOSE [id number] 12:25:36 Test Item Value Reference Range Interpretation Comments POC-GLUCOSE METER 58 mg/dL 70-110 L : TESTED A T [facility] 6720 (BEAKER) (test code = [facility], 1538) 82446: Concrete Building Assembler/Techni marissa ID = [id number] for Brot hers, Lacy POCT-GLUCOSE [id number] 11:59:22 Test Item Value Reference Range Interpretation Comments POC-GLUCOSE METER 69 mg/dL 70-110 L : TESTED A T [facility] 6720 (BEAKER) (test code = [facility], 1538) 16652: Concrete Building Assembler/Techni marissa ID = [id number] for Brot hers, Lacy POCT-GLUCOSE [id number] 11:41:08 Test Item Value Reference Range Interpretation Comments POC-GLUCOSE METER 55 mg/dL 70-110 L : TESTED A T [facility] 6720 (BEAKER) (test code = [facility], 1538) 01005: Concrete Building Assembler/Techni marissa ID = [id number] for Brot hers, Lacy POCT-GLUCOSE [id number] 09:45:56 Test Item Value Reference Range Interpretation Comments POC-GLUCOSE METER 145 mg/dL 70-110 H : TESTED A T [facility] 6720 (BEAKER) (test code = [facility], 1538) 89538: Concrete Building Assembler/Techni marissa ID = [id number] for Br others, Lacy POCT-GLUCOSE [id number] 08:29:26 Test Item Value Reference Range Interpretation Comments POC-GLUCOSE METER 216 mg/dL 70-110 H : TESTED A T [facility] 6720 (BEAKER) (test code = [place], 1538) 20644: Concrete Building Assembler/Techni marissa ID = [id number] for Br others, Lacy POCT-GLUCOSE [id number] 07:41:52 Test Item Value Reference Range Interpretation Comments POC-GLUCOSE METER 253 mg/dL 70-110 H : TESTED A T [facility] 6720 (BEAKER) (test code = NABOR Guardado [facility], 1538) 62209: Concrete Building Assembler/Techni marissa ID = [id number] for Br others, Lacy XR CHEST 1 VIEW PORTABLE / [id number] 07:35:08 [facility] 1965 Sex: MXR CHEST 1 VIEW PORTABLE / BEDSIDEINDICATION: daily morningCOMPARISON: Prior day's examFINDINGS: Portable frontal view of the chest. IMPRESSION:Support Lines: Tracheostomy. PICC tip overlies the right axilla.Lungs and pleura: Unchanged bilateral airspace opacities concerning formultifocal pneumonia versus multifocal edema. No significantpneumothorax.Heart and mediastinum: Stable contours. Stable surgical changes.Additional findings: None. Electronically Signed By: Mavis Vinson02/23/2023 07:37 CDTWorkstation Name: [id number] METER 2023-02-23 06:33:11 Test Item Value Reference Range Interpretation Comments POC-GLUCOSE METER 230 mg/dL 70-110 H : TESTED A T [facility] 6720 (BEAKER) (test code = [facility], 1538) 38923: Concrete Building Assembler/Techni marissa ID = [id number] for Ng Trace dominguez POCT-GLUCOSE [id number] 06:07:00 Test Item Value Reference Range Interpretation Comments POC-GLUCOSE METER 150 mg/dL 70-110 H : TESTED A T [facility] 6720 (BEAKER) (test code = [facility], 1538) 95493: Concrete Building Assembler/Techni marissa ID = [id number] for Ng Trace dominguez POCT-GLUCOSE [id number] 04:32:12 Test Item Value Reference Range Interpretation Comments POC-GLUCOSE METER 90 mg/dL 70-110 : TESTED A T [facility] 6720 (BEAKER) (test code = [facility], 1538) 93395: Concrete Building Assembler/Techni marissa ID = [id number] for NgTrace martinez BASIC METABOLIC [id number] 04:25:50 Test Item Value Reference Range Interpretation Comments SODIUM (BEAKER) 145 meq/L 136-145 (test code = 381) POTASSIUM 4.6 meq/L 3.5-5.1 Specimen slight ly (BEAKER) (test hemolyzed code = 379) CHLORIDE (BEAKER) 107 meq/L 98-107 (test code = 382) CO2 (BEAKER) 29 meq/L 22-29 (test code = 355) BLOOD UREA 28 mg/dL 7-21 H NITROGEN (BEAKER) (test code = 354) CREATININE 1.31 mg/dL 0.57-1.25 H Specimen slight ly (BEAKER) (test hemolyzed code = 358) GLUCOSE RANDOM 93 mg/dL 70-105 (BEAKER) (test code = 652) CALCIUM (BEAKER) 9.1 mg/dL 8.4-10.2 (test code = 697) EGFR (BEAKER) 63 Interpretati on of eGFR (test code = mL/min/1.73 values Stage De scription 1092) sq m Result G1 Lucy l or high >=90 G2 Mildly decreased 60-89 G3a Mildl y to moderately 45-5 9 G3b Moderately to s everely 30-44 G4 Severl y decreased 15-29 G5 Kidney failure <15Reported eGF R is based on the CKD-EPI 2020 equation that d oes not use a race coefficientEsti mated GFR is not as accur ate as Creatinine Zuri hylton in predicting glom erular filtration rate . Estimated GFR is not appl icable for dialysis patien ts Concrete Building Assembler ID - SOURAV [id number] 04:25:49 Test Item Value Reference Range Interpretation Comments PHOSPHORUS (BEAKER) 3.5 mg/dL 2.3-4.7 Specimen slightly (test code = 604) hemolyzed Concrete Building Assembler ID - SOURAV [id number] 04:25:48 Test Item Value Reference Range Interpretation Comments MAGNESIUM (BEAKER) 2.2 mg/dL 1.6-2.6 Specimen slightly (test code = 627) hemolyzed Concrete Building Assembler ID - SOURAV WCBC W/PLT COUNT & AUTO [id number] 03:55:38 Test Item Value Reference Range Interpretation Comments WHITE BLOOD CELL COUNT 8.1 K/ L 3.5-10.5 (BEAKER) (test code = 775) RED BLOOD CELL COUNT 2.76 M/ L 4.63-6.08 L (BEAKER) (test code = 761) HEMOGLOBIN (BEAKER) 7.8 GM/DL 13.7-17.5 L (test code = 410) HEMATOCRIT (BEAKER) 24.8 % 40.1-51.0 L (test code = 411) MEAN CORPUSCULAR 90 fL 79-92 Discordant results VOLUME (BEAKER) (test compar ed to code = 753) previous, clini marck correlation required. MEAN CORPUSCULAR 28.3 pg 25.7-32.2 HEMOGLOBIN (BEAKER) (test code = 751) MEAN CORPUSCULAR 31.5 GM/DL 32.3-36.5 L HEMOGLOBIN CONC (BEAKER) (test code = 752) RED CELL DISTRIBUTION 14.9 % 11.6-14.4 H WIDTH (BEAKER) (test code = 412) PLATELET COUNT 398 K/CU MM 150-450 (BEAKER) (test code = 756) MEAN PLATELET VOLUME 10.0 fL 9.4-12.4 (BEAKER) (test code = 754) NUCLEATED RED BLOOD 0 /100 WBC 0-0 CELLS (BEAKER) (test code = 413) NEUTROPHILS RELATIVE 74 % PERCENT (BEAKER) (test code = 429) LYMPHOCYTES RELATIVE 18 % PERCENT (BEAKER) (test code = 430) MONOCYTES RELATIVE 7 % PERCENT (BEAKER) (test code = 431) EOSINOPHILS RELATIVE 1 % PERCENT (BEAKER) (test code = 432) BASOPHILS RELATIVE 1 % PERCENT (BEAKER) (test code = 437) NEUTROPHILS ABSOLUTE 5.93 K/ L 1.78-5.38 H COUNT (BEAKER) (test code = 670) LYMPHOCYTES ABSOLUTE 1.43 K/ L 1.32-3.57 COUNT (BEAKER) (test code = 414) MONOCYTES ABSOLUTE 0.58 K/ L 0.30-0.82 COUNT (BEAKER) (test code = 415) EOSINOPHILS ABSOLUTE 0.06 K/ L 0.04-0.54 COUNT (BEAKER) (test code = 416) BASOPHILS ABSOLUTE 0.04 K/ L 0.01-0.08 COUNT (BEAKER) (test code = 417) IMMATURE 0.20 % 0.00-1.00 GRANULOCYTES-RELATIVE PERCENT (BEAKER) (test code = 2801) POCT-GLUCOSE [id number] 03:54:26 Test Item Value Reference Range Interpretation Comments POC-GLUCOSE METER 86 mg/dL 70-110 : TESTED A T [facility] 6720 (BEAKER) (test code = [facility], 153) 88086: Concrete Building Assembler/Techni marissa ID = [id number] for Nguy en, Vincent POCT-GLUCOSE [id number] 01:09:29 Test Item Value Reference Range Interpretation Comments POC-GLUCOSE METER 128 mg/dL 70-110 H : TESTED A T [facility] 6720 (BEAKER) (test code = [facility], 1538) 85901: Concrete Building Assembler/Techni marissa ID = [id number] for Ng angelica, Vincent POCT-GLUCOSE [id number] 00:10:53 Test Item Value Reference Range Interpretation Comments POC-GLUCOSE METER 162 mg/dL 70-110 H : TESTED A T [facility] 6720 (BEAKER) (test code = [facility], 1538) 00070: Concrete Building Assembler/Techni marissa ID = [id number] for CO MS, SENORA POCT-GLUCOSE [id number] 23:33:28 Test Item Value Reference Range Interpretation Comments POC-GLUCOSE METER 193 mg/dL 70-110 H : TESTED A T [facility] 6720 (BEAKER) (test code = [facility], [facility]8) 33372: Concrete Building Assembler/Techni marissa ID = [id number] for Ng angelcia, Vincent POCT-GLUCOSE [id number] 22:16:10 Test Item Value Reference Range Interpretation Comments POC-GLUCOSE METER 207 mg/dL 70-110 H : TESTED A T [facility] 6720 (BEAKER) (test code = [facility], [facility]8) 85021: Concrete Building Assembler/Techni marissa ID = [id number] for Ng angelica, Vincent POCT-GLUCOSE [id number] 20:56:11 Test Item Value Reference Range Interpretation Comments POC-GLUCOSE METER 71 mg/dL 70-110 : TESTED A T [facility] 6720 (BEAKER) (test code = [facility], [facility]8) 95737: Concrete Building Assembler/Techni marissa ID = [id number] for Nguy en, Vincent POCT-GLUCOSE [id number] 18:37:56 Test Item Value Reference Range Interpretation Comments POC-GLUCOSE METER 179 mg/dL 70-110 H : TESTED A T [facility] 6720 (BEAKER) (test code = [facility], 1538) 73084: Concrete Building Assembler/Techni marissa ID = [id number] for Br others, Lacy POCT-GLUCOSE [id number] 15:47:54 Test Item Value Reference Range Interpretation Comments POC-GLUCOSE METER 138 mg/dL 70-110 H : TESTED A T [facility] 6720 (BEAKER) (test code = [facility], [facility]) 75222: Concrete Building Assembler/Techni marissa ID = [id number] for Br others, Lacy [id number] 14:31:05 Test Item Value Reference Range Interpretation Comments PHOSPHORUS (BEAKER) (test code = 4.9 mg/dL 2.3-4.7 H 604) Concrete Building Assembler ID - [id number] 14:31:04 Test Item Value Reference Range Interpretation Comments MAGNESIUM (BEAKER) (test code = 2.3 mg/dL 1.6-2.6 627) Concrete Building Assembler ID - ADMINBASIC METABOLIC [id number] 14:31:03 Test Item Value Reference Range Interpretation Comments SODIUM (BEAKER) 147 meq/L 136-145 H (test code = 381) POTASSIUM 4.6 meq/L 3.5-5.1 (BEAKER) (test code = 379) CHLORIDE (BEAKER) 108 meq/L 98-107 H (test code = 382) CO2 (BEAKER) 26 meq/L 22-29 (test code = 355) BLOOD UREA 29 mg/dL 7-21 H NITROGEN (BEAKER) (test code = 354) CREATININE 1.28 mg/dL 0.57-1.25 H (BEAKER) (test code = 358) GLUCOSE RANDOM 143 mg/dL 70-105 H (BEAKER) (test code = 652) CALCIUM (BEAKER) 9.5 mg/dL 8.4-10.2 (test code = 697) EGFR (BEAKER) 65 Interpretatio n of eGFR (test code = mL/min/1.73 values Stage De scription 1092) sq m Result G1 Lucy l or high >=90 G2 Mildly decreased 60-89 G3a Mildl y to moderately 45-5 9 G3b Moderately to s everely 30-44 G4 Severl y decreased 15-29 G5 Kidney failure <15Reported eGF R is based on the CKD-EPI 2020 equation that d oes not use a race coefficientEsti mated GFR is not as accur ate as Creatinine Zuri wraner in predicting glom erular filtration rate . Estimated GFR is not appl icable for dialysis patien ts Concrete Building Assembler ID - ADMINPOCT-GLUCOSE [id number] 13:14:36 Test Item Value Reference Range Interpretation Comments POC-GLUCOSE METER 129 mg/dL 70-110 H : TESTED A T [facility] 6720 (BEAKER) (test code = NABOR Guardado [place], 1538) 46543: Concrete Building Assembler/Techni marissa ID = [id number] for Br others, Lacy POCT-GLUCOSE [id number] 11:12:53 Test Item Value Reference Range Interpretation Comments POC-GLUCOSE METER 120 mg/dL 70-110 H : TESTED A T [facility] 6720 (BEAKER) (test code = NABOR Guardado [place], 1538) 69113: Concrete Building Assembler/Techni marissa ID = [id number] for Br others, Lacy XR CHEST 1 VIEW PORTABLE / [id number] 09:53:47 [facility] 1965 Sex: MXR CHEST 1 VIEW PORTABLE / BEDSIDEINDICATION: daily morningCOMPARISON: Prior day's examFINDINGS: Portable frontal view of the chest. IMPRESSION:Support Lines: Feeding tube and NG tube descends below the diaphragm.Tracheostomy. PICC tip overlies the right axilla.Lungs and pleura: Unchanged bilateral airspaceopacities concerning formultifocal pneumonia versus multifocal edema. No significantpneumothorax.Hear t and mediastinum: Stable contours.Additional findings: None.Electronically Signed By: Mavis Vinson02/22/2023 09:55 CDTWorkstation Name: [id number] MISCELLANEOUS LAB [id number] 09:18:13 Test Item Value Reference Range Interpretation Comments SCAN RESULT (test code = See scanned report. [id number]) POCT-GLUCOSE [id number] 08:15:41 Test Item Value Reference Range Interpretation Comments POC-GLUCOSE METER 123 mg/dL 70-110 H : TESTED A T [facility] 6720 ([place]ut) (test code = NABOR Guardado [facility], 1538) 23898: Concrete Building Assembler/Techni marissa ID = [id number] for Br others, Lacy POCT-GLUCOSE [id number] 06:07:01 Test Item Value Reference Range Interpretation Comments POC-GLUCOSE METER 127 mg/dL 70-110 H : TESTED A T [facility] 6720 (BEAKER) (test code TEOFILO [facility], = 1538) 95656: Concrete Building Assembler/Techni marissa ID = [id number] for Alfredo Virk C-REACTIVE [id number] 03:38:32 Test Item Value Reference Range Interpretation Comments C-REACTIVE PROTEIN (BEAKER) (test 2.64 mg/dL 0.00-0.50 H code = 676) Concrete Building Assembler ID - JOEL [id number] 03:38:31 Test Item Value Reference Range Interpretation Comments ALBUMIN (BEAKER) (test code = 1145) 2.7 g/dL 3.5-5.0 L Concrete Building Assembler ID - JOEL [id number] 03:38:30 Test Item Value Reference Range Interpretation Comments PHOSPHORUS (BEAKER) (test code = 3.9 mg/dL 2.3-4.7 604) Concrete Building Assembler ID - JOEL [id number] 03:38:29 Test Item Value Reference Range Interpretation Comments MAGNESIUM (BEAKER) (test code = 2.4 mg/dL 1.6-2.6 627) Concrete Building Assembler ID - JOEL BBASIC METABOLIC [id number] 03:38:28 Test Item Value Reference Range Interpretation Comments SODIUM (BEAKER) 144 meq/L 136-145 (test code = 381) POTASSIUM 4.1 meq/L 3.5-5.1 (BEAKER) (test code = 379) CHLORIDE (BEAKER) 105 meq/L 98-107 (test code = 382) CO2 (BEAKER) 24 meq/L 22-29 (test code = 355) BLOOD UREA 34 mg/dL 7-21 H NITROGEN (BEAKER) (test code = 354) CREATININE 1.29 mg/dL 0.57-1.25 H (BEAKER) (test code = 358) GLUCOSE RANDOM 142 mg/dL 70-105 H (BEAKER) (test code = 652) CALCIUM (BEAKER) 8.7 mg/dL 8.4-10.2 (test code = 697) EGFR (BEAKER) 64 Interpretatio n of eGFR (test code = mL/min/1.73 values Stage De scription 1092) sq m Result G1 Lucy l or high >=90 G2 Mildly decreased 60-89 G3a Mildl y to moderately 45-5 9 G3b Moderately to s everely 30-44 G4 Severl y decreased 15-29 G5 Kidney failure <15Reported eGF R is based on the CKD-EPI 202 equation that d oes not use a race coefficientEsti mated GFR is not as accur ate as Creatinine Zuri hylton in predicting glom erular filtration rate . Estimated GFR is not appl icable for dialysis patien ts Concrete Building Assembler ID - JOEL [id number] 03:17:21 Test Item Value Reference Range Interpretation Comments PREALBUMIN (BEAKER) (test code = 18 mg/dL 14-45 586) Concrete Building Assembler ID - JOEL BPOCT-GLUCOSE [id number] 03:08:49 Test Item Value Reference Range Interpretation Comments POC-GLUCOSE METER 115 mg/dL 70-110 H : TESTED A T [facility] (BEAKER) ([facility], = 1538) 64370: Concrete Building Assembler/Techni marissa ID = [id number] for Alfredo Virk CBC W/PLT COUNT & AUTO [id number] 02:56:04 Test Item Value Reference Range Interpretation Comments WHITE BLOOD CELL COUNT (BEAKER) 9.5 K/ L 3.5-10.5 (test code = 775) RED BLOOD CELL COUNT (BEAKER) 2.90 M/ L 4.63-6.08 L (test code = 761) HEMOGLOBIN (BEAKER) (test code = 8.1 GM/DL 13.7-17.5 L 410) HEMATOCRIT (BEAKER) (test code = 27.3 % 40.1-51.0 L 411) MEAN CORPUSCULAR VOLUME (BEAKER) 94 fL 79-92 H (test code = 753) MEAN CORPUSCULAR HEMOGLOBIN 27.9 pg 25.7-32.2 (BEAKER) (test code = 751) MEAN CORPUSCULAR HEMOGLOBIN CONC 29.7 GM/DL 32.3-36.5 L (BEAKER) (test code = 752) RED CELL DISTRIBUTION WIDTH 15.3 % 11.6-14.4 H (BEAKER) (test code = 412) PLATELET COUNT (BEAKER) (test 493 K/CU MM 150-450 H code = 756) MEAN PLATELET VOLUME (BEAKER) 9.5 fL 9.4-12.4 (test code = 754) NUCLEATED RED BLOOD CELLS 0 /100 WBC 0-0 (BEAKER) (test code = 413) NEUTROPHILS RELATIVE PERCENT 71 % (BEAKER) (test code = 429) LYMPHOCYTES RELATIVE PERCENT 16 % (BEAKER) (test code = 430) MONOCYTES RELATIVE PERCENT 9 % (BEAKER) (test code = 431) EOSINOPHILS RELATIVE PERCENT 3 % (BEAKER) (test code = 432) BASOPHILS RELATIVE PERCENT 1 % (BEAKER) (test code = 437) NEUTROPHILS ABSOLUTE COUNT 6.76 K/ L 1.78-5.38 H (BEAKER) (test code = 670) LYMPHOCYTES ABSOLUTE COUNT 1.48 K/ L 1.32-3.57 (BEAKER) (test code = 414) MONOCYTES ABSOLUTE COUNT (BEAKER) 0.83 K/ L 0.30-0.82 H (test code = 415) EOSINOPHILS ABSOLUTE COUNT 0.29 K/ L 0.04-0.54 (BEAKER) (test code = 416) BASOPHILS ABSOLUTE COUNT (BEAKER) 0.08 K/ L 0.01-0.08 (test code = 417) IMMATURE GRANULOCYTES-RELATIVE 0.40 % 0.00-1.00 PERCENT (BEAKER) (test code = 2801) POCT-GLUCOSE [id number] 02:24:18 Test Item Value Reference Range Interpretation Comments POC-GLUCOSE METER 140 mg/dL 70-110 H : TESTED A T [facility] 6720 (BEAKER) (test code [facility], = 1538) 37179: Concrete Building Assembler/Techni marissa ID = [id number] for Alfredo Virk XR ABDOMEN/KUB 1 VIEW [id number] 01:41:51 [facility] 1965 Sex: MCLINICAL HISTORY: small bowel follow throughCOMPARISON: 02/21/2023FINDINGS:Two supine images of the abdomenare were performed 6 hours after theadministration of Gastrografin.Enteric contrast is present in the ascending and a portion of thetransverse colon. There is no focus of dilated bowel.A feeding tube tip overlies the distal duodenum. An enteric tube tipoverlies the left upper quadrant in the expected position of thestomach.There is no acute bony abnormality.Electronically Signed By: Sly Wmyiccx7002/22/2023 01:43 CDTWorkstation Name: [id number] ABDOMEN/KUB 1 VIEW [id number] 01:20:36 [facility] 1965 Sex: MEXAM:XR Abdomen, 1 ViewCLINICAL INDICATION: Feeding tube placementTECHNIQUE: Frontal supine view of the abdomen/pelvis.COMPARISON: No relevant prior studies available.FINDINGS:Gastrointestinal tract: Bowel loops are nondilated. Bowel gas patternis unremarkable.Bones/joints: Unremarkable.Tubes, lines and devices: There is a Corpak type feeding tube extendingthrough the lower esophagus and stomach into the third portion of theduodenum.IMPRESSION:There is a Corpak type feeding tube extending through the loweresophagus and stomach into the third portion of the duodenum.Electronically Signed By: Delvis Altamirano02/22/2023 01:22 CDTWorkstation Name: [id number] 01:09:17 Test Item Value Reference Range Interpretation Comments POC-GLUCOSE METER 163 mg/dL 70-110 H : TESTED A T [facility] 6720 (BETRENT) (test code TE[facility]ILO [facility], = 1538) 71102: Concrete Building Assembler/Techni marissa ID = [id number] for Torm is, Mariechella POCT-GLUCOSE [id number] 00:12:00 Test Item Value Reference Range Interpretation Comments POC-GLUCOSE METER 142 mg/dL 70-110 H : TESTED A T [facility] 6720 (BEAKER) (test code [facility], = 1538) 46685: Concrete Building Assembler/Techni marissa ID = [id number] for Torm is, Mariechella POCT-GLUCOSE [id number] 23:48:31 Test Item Value Reference Range Interpretation Comments POC-GLUCOSE METER 109 mg/dL 70-110 : TESTED A T [facility] 6720 (BEAKER) (test code [facility], = 1538) 56613: Concrete Building Assembler/Techni marissa ID = [id number] for Torm is, Mariechella POCT-GLUCOSE [id number] 23:19:06 Test Item Value Reference Range Interpretation Comments POC-GLUCOSE METER 91 mg/dL 70-110 : TESTED A T [facility] 6720 (BEAKER) (test code [facility], = 1538) 22623: Concrete Building Assembler/Techni marissa ID = [id number] for Torm is, Mariechella POCT-GLUCOSE [id number] 22:19:52 Test Item Value Reference Range Interpretation Comments POC-GLUCOSE METER 107 mg/dL 70-110 : TESTED A T [facility] 6720 (BEAKER) (test code [facility], = 1538) 94727: Concrete Building Assembler/Techni marissa ID = [id number] for Torm is, Mariechella POCT-GLUCOSE [id number] 21:20:13 Test Item Value Reference Range Interpretation Comments POC-GLUCOSE METER 116 mg/dL 70-110 H : TESTED A T [facility] 6720 (BEAKER) (test code [facility], = 1538) 75141: Concrete Building Assembler/Techni marissa ID = [id number] for Torm is, Mariechella BASIC METABOLIC [id number] 20:57:52 Test Item Value Reference Range Interpretation Comments SODIUM (BEAKER) 144 meq/L 136-145 (test code = 381) POTASSIUM 4.6 meq/L 3.5-5.1 Specimen modera tely (BEAKER) (test hemolyzed code = 379) CHLORIDE (BEAKER) 108 meq/L 98-107 H (test code = 382) CO2 (BEAKER) 30 meq/L 22-29 H (test code = 355) BLOOD UREA 36 mg/dL 7-21 H NITROGEN (BEAKER) (test code = 354) CREATININE 1.26 mg/dL 0.57-1.25 H Specimen modera tely (BEAKER) (test hemolyzed code = 358) GLUCOSE RANDOM 122 mg/dL 70-105 H (BEAKER) (test code = 652) CALCIUM (BEAKER) 8.3 mg/dL 8.4-10.2 L (test code = 697) EGFR (BEAKER) 66 Interpretatio n of eGFR (test code = mL/min/1.73 values Stage De scription 1092) sq m Result G1 Lucy l or high >=90 G2 Mildly decreased 60-89 G3a Mildl y to moderately 45-5 9 G3b Moderately to s everely 30-44 G4 Severl y decreased 15-29 G5 Kidney failure <15Reported eGF R is based on the CKD-EPI 2020 equation that d oes not use a race coefficientEsti mated GFR is not as accur ate as Creatinine Zuri warner in predicting glom erular filtration rate . Estimated GFR is not appl icable for dialysis patien ts Concrete Building Assembler ID - [id number] 20:57:51 Test Item Value Reference Range Interpretation Comments PHOSPHORUS (BEAKER) 4.5 mg/dL 2.3-4.7 Specimen moderately (test code = 604) hemolyzed Concrete Building Assembler ID - [id number] 20:57:50 Test Item Value Reference Range Interpretation Comments MAGNESIUM (BEAKER) 2.4 mg/dL 1.6-2.6 Specimen moderately (test code = 627) hemolyzed Concrete Building Assembler ID - EMPOCT-GLUCOSE [id number] 20:27:09 Test Item Value Reference Range Interpretation Comments POC-GLUCOSE METER 105 mg/dL 70-110 : TESTED A T [facility] 6720 (BEAKER) ([facility] = 1538[facility] 18007: Concrete Building Assembler/Techni marissa ID = [id number] for Alfredo Virk POCT-GLUCOSE [id number] 19:13:10 Test Item Value Reference Range Interpretation Comments POC-GLUCOSE METER 147 mg/dL 70-110 H : TESTED A T [facility] 6720 (BENautit) (test code [facility], = 1538) 91339: Concrete Building Assembler/Techni marissa ID = [id number] for Alfredo Virk POCT-GLUCOSE [id number] 18:08:01 Test Item Value Reference Range Interpretation Comments POC-GLUCOSE METER 167 mg/dL 70-110 H : TESTED A T [facility] 6720 ([facility]) (test code = [facility], 1538) 19594: Concrete Building Assembler/Techni marissa ID = [id number] for Me za, [place] POCT-GLUCOSE [id number] 17:07:49 Test Item Value Reference Range Interpretation Comments POC-GLUCOSE METER 185 mg/dL 70-110 H : TESTED A T [facility] 6720 ([facility]) (test code = [facility], 1538) 13374: Concrete Building Assembler/Techni marissa ID = [id number] for Me za, [place] POCT-GLUCOSE [id number] 16:07:18 Test Item Value Reference Range Interpretation Comments POC-GLUCOSE METER 211 mg/dL 70-110 H : TESTED A T [facility] 6720 ([facility]) (test code = [facility], 1538) 68010: Concrete Building Assembler/Techni marissa ID = [id number] for Me za, [place] XR ABDOMEN/KUB 1 VIEW [id number] 15:07:53 [facility] : 1965 Sex: MTECHNIQUE: Single View of the Abdomen.INDICATION: small bowel follow through.COMPARISON: Abdominal radiograph from 02/19/2023. CT from 02/18/2023.FINDINGS/IMPRESSION:A NG tube has its tip over the gastric body. A feeding tube has its tipover the third portion of the duodenum. There is contrast in the gastricfundus and proximal small bowel.A catheter overlies the urinary bladder. No acute bone abnormality.Please refer to the recent chest radiograph regarding intrathoracicfindings.Electronically Signed By: HummZhwm97/10/2023 15:09 CDTWorkstation Name: [id number] 14:48:52 Test Item Value Reference Range Interpretation Comments POC-GLUCOSE METER 255 mg/dL 70-110 H : TESTED A T [facility] 6720 (BEAKER) (test code = [facility], 1538) [address]: Concrete Building Assembler/Techni marissa ID = [id number] for Chano Akers [id number] 13:08:59 Test Item Value Reference Range Interpretation Comments PHOSPHORUS (BEAKER) (test code = 4.4 mg/dL 2.3-4.7 604) Concrete Building Assembler ID - JOEL [id number] 13:08:58 Test Item Value Reference Range Interpretation Comments MAGNESIUM (BEAKER) (test code = 2.3 mg/dL 1.6-2.6 627) Concrete Building Assembler ID - JOEL BCALCIUM, [id number] 12:44:22 Test Item Value Reference Range Interpretation Comments CALCIUM IONIZED (BEAKER) (test 1.06 mmol/L 1.12-1.27 L code = 698) PH, BLOOD (BEAKER) (test code = 7.44 1810) POCT-GLUCOSE [id number] 12:34:14 Test Item Value Reference Range Interpretation Comments POC-GLUCOSE METER 223 mg/dL 70-110 H : TESTED A T [facility] 6720 (BEAKER) (test code = [facility], 1538) [address]231: Concrete Building Assembler/Techni marissa ID = [id number] for Chano Akers BASIC METABOLIC [id number] 10:02:07 Test Item Value Reference Range Interpretation Comments SODIUM (BEAKER) 143 meq/L 136-145 (test code = 381) POTASSIUM 3.6 meq/L 3.5-5.1 (BEAKER) (test code = 379) CHLORIDE (BEAKER) 109 meq/L 98-107 H (test code = 382) CO2 (BEAKER) 25 meq/L 22-29 (test code = 355) BLOOD UREA 38 mg/dL 7-21 H NITROGEN (BEAKER) (test code = 354) CREATININE 1.24 mg/dL 0.57-1.25 (BEAKER) (test code = 358) GLUCOSE RANDOM 143 mg/dL 70-105 H (BEAKER) (test code = 652) CALCIUM (BEAKER) 7.3 mg/dL 8.4-10.2 L (test code = 697) EGFR (BEAKER) 67 Interpretatio n of eGFR (test code = mL/min/1.73 values Stage De scription 1092) sq m Result G1 Lucy l or high >=90 G2 Mildly decreased 60-89 G3a Mildl y to moderately 45-5 9 G3b Moderately to s everely 30-44 G4 Severl y decreased 15-29 G5 Kidney failure <15Reported eGF R is based on the CKD-EPI 2020 equation that d oes not use a race coefficientEsti mated GFR is not as accur ate as Creatinine Zuri warner in predicting glom erular filtration rate . Estimated GFR is not appl icable for dialysis patien ts Concrete Building Assembler ID - EMHEPATIC FUNCTION [id number] 09:58:25 Test Item Value Reference Range Interpretation Comments TOTAL PROTEIN (BEAKER) (test code = 5.3 gm/dL 6.0-8.3 L 770) ALBUMIN (BEAKER) (test code = 1145) 2.2 g/dL 3.5-5.0 L BILIRUBIN TOTAL (BEAKER) (test code 0.3 mg/dL 0.2-1.2 = 377) BILIRUBIN DIRECT (BEAKER) (test 0.2 mg/dL 0.1-0.5 code = 706) ALKALINE PHOSPHATASE (BEAKER) (test 191 U/L 40-150 H code = 346) AST (SGOT) (BEAKER) (test code = 23 U/L 5-34 353) ALT (SGPT) (BEAKER) (test code = 21 U/L 6-55 347) Concrete Building Assembler ID - EMPOCT-GLUCOSE [id number] 09:14:21 Test Item Value Reference Range Interpretation Comments POC-GLUCOSE METER 113 mg/dL 70-110 H : TESTED A T [facility] 6720 (BEAKER) (test code = [facility] [place], 1538) 71315: Concrete Building Assembler/Techni marissa ID = [id number] for Chano Akers CBC W/PLT COUNT & AUTO [id number] 08:49:52 Test Item Value Reference Range Interpretation Comments WHITE BLOOD CELL COUNT (BEAKER) 7.1 K/ L 3.5-10.5 (test code = 775) RED BLOOD CELL COUNT (BEAKER) 2.83 M/ L 4.63-6.08 L (test code = 761) HEMOGLOBIN (BEAKER) (test code = 7.8 GM/DL 13.7-17.5 L 410) HEMATOCRIT (BEAKER) (test code = 26.3 % 40.1-51.0 L 411) MEAN CORPUSCULAR VOLUME (BEAKER) 93 fL 79-92 H (test code = 753) MEAN CORPUSCULAR HEMOGLOBIN 27.6 pg 25.7-32.2 (BEAKER) (test code = 751) MEAN CORPUSCULAR HEMOGLOBIN CONC 29.7 GM/DL 32.3-36.5 L (BEAKER) (test code = 752) RED CELL DISTRIBUTION WIDTH 15.2 % 11.6-14.4 H (BEAKER) (test code = 412) PLATELET COUNT (BEAKER) (test 530 K/CU MM 150-450 H code = 756) MEAN PLATELET VOLUME (BEAKER) 10.4 fL 9.4-12.4 (test code = 754) NUCLEATED RED BLOOD CELLS 0 /100 WBC 0-0 (BEAKER) (test code = 413) NEUTROPHILS RELATIVE PERCENT 67 % (BEAKER) (test code = 429) LYMPHOCYTES RELATIVE PERCENT 19 % (BEAKER) (test code = 430) MONOCYTES RELATIVE PERCENT 11 % (BEAKER) (test code = 431) EOSINOPHILS RELATIVE PERCENT 2 % (BEAKER) (test code = 432) BASOPHILS RELATIVE PERCENT 1 % (BEAKER) (test code = 437) NEUTROPHILS ABSOLUTE COUNT 4.73 K/ L 1.78-5.38 (BEAKER) (test code = 670) LYMPHOCYTES ABSOLUTE COUNT 1.33 K/ L 1.32-3.57 (BEAKER) (test code = 414) MONOCYTES ABSOLUTE COUNT (BEAKER) 0.77 K/ L 0.30-0.82 (test code = 415) EOSINOPHILS ABSOLUTE COUNT 0.12 K/ L 0.04-0.54 (BEAKER) (test code = 416) BASOPHILS ABSOLUTE COUNT (BEAKER) 0.08 K/ L 0.01-0.08 (test code = 417) IMMATURE GRANULOCYTES-RELATIVE 0.40 % 0.00-1.00 PERCENT (BEAKER) (test code = 2801) POCT-GLUCOSE [id number] 07:32:24 Test Item Value Reference Range Interpretation Comments POC-GLUCOSE METER 115 mg/dL 70-110 H : [facility] ([facility] (test code = [facility], 1538) 35752: Concrete Building Assembler/Techni marissa ID = [id number] for Chano Akers XR CHEST 1 VIEW PORTABLE / [id number] 06:55:38 [facility] 1965 Sex: MChestone view:HISTORY: daily morningComparison: Previous day's studySupport apparatus: Not significantly changed in position.Cardiomegaly and bilateral opacities suggesting pulmonary edema areagain noted. There is no pneumothorax or significant effusion.Sternotomy changes are again noted. Overall there hasbeen nosignificant interval change.Electronically Signed By: Saad Sampson02/21/2023 06:57 CDTWorkstation Name: [id number] METER 2023-02-21 06:39:56 Test Item Value Reference Range Interpretation Comments POC-GLUCOSE METER 127 mg/dL 70-110 H : TESTED A T [facility] 6720 ([facility]) (test code = [facility], 1538) 92712: Concrete Building Assembler/Techni marissa ID = [id number] for Francois sachi Jessica POCT-GLUCOSE [id number] 05:02:26 Test Item Value Reference Range Interpretation Comments POC-GLUCOSE METER 168 mg/dL 70-110 H : TESTED A T [facility] 6720 (BEAKER) (test code = [facility], 1538) 85783: Concrete Building Assembler/Techni marissa ID = [id number] for Jessica Paredes POCT-GLUCOSE [id number] 01:51:34 Test Item Value Reference Range Interpretation Comments POC-GLUCOSE METER 212 mg/dL 70-110 H : TESTED A T [facility] 6720 (BEAKER) (test code = [facility], 1538) 61143: Concrete Building Assembler/Techni marissa ID = [id number] for Jessica Paredes POCT-GLUCOSE [id number] 00:36:06 Test Item Value Reference Range Interpretation Comments POC-GLUCOSE METER 220 mg/dL 70-110 H : TESTED A T [facility] 6720 (BEAKER) (test code = [facility], 1538) 65724: Concrete Building Assembler/Techni marissa ID = [id number] for Jessica Paredes [id number] 23:09:21 Test Item Value Reference Range Interpretation Comments PHOSPHORUS (BEAKER) (test code = 3.9 mg/dL 2.3-4.7 604) [id number] 23:08:45 Test Item Value Reference Range Interpretation Comments MAGNESIUM (BEAKER) (test code = 2.2 mg/dL 1.6-2.6 627) BASIC METABOLIC [id number] 23:08:24 Test Item Value Reference Range Interpretation Comments SODIUM (BEAKER) 142 meq/L 136-145 (test code = 381) POTASSIUM 4.1 meq/L 3.5-5.1 (BEAKER) (test code = 379) CHLORIDE (BEAKER) 108 meq/L 98-107 H (test code = 382) CO2 (BEAKER) 22 meq/L 22-29 (test code = 355) BLOOD UREA 39 mg/dL 7-21 H NITROGEN (BEAKER) (test code = 354) CREATININE 1.47 mg/dL 0.57-1.25 H (BEAKER) (test code = 358) GLUCOSE RANDOM 235 mg/dL 70-105 H (BEAKER) (test code = 652) CALCIUM (BEAKER) 7.6 mg/dL 8.4-10.2 L (test code = 697) EGFR (BEAKER) 55 Interpretatio n of eGFR (test code = mL/min/1.73 values Stage De scription 1092) sq m Result G1 Lucy l or high >=90 G2 Mildly decreased 60-89 G3a Mildl y to moderately 45-5 9 G3b Moderately to s everely 30-44 G4 Severl y decreased 15-29 G5 Kidney failure <15Reported eGF R is based on the CKD-EPI 2020 equation that d oes not use a race coefficientEsti mated GFR is not as accur ate as Creatinine Zuri warner in predicting glom erular filtration rate . Estimated GFR is not appl icable for dialysis patien ts POCT-GLUCOSE [id number] 22:11:17 Test Item Value Reference Range Interpretation Comments POC-GLUCOSE METER 118 mg/dL 70-110 H : TESTED A T [facility] 6720 ([place]) (test code = [facility], 1538) 65439: Concrete Building Assembler/Techni marissa ID = [id number] for He armandndJessica duarte POCT-GLUCOSE [id number] 19:58:04 Test Item Value Reference Range Interpretation Comments POC-GLUCOSE METER 257 mg/dL 70-110 H : TESTED A T [facility] 6720 ([place]) (test code = [facility], 1538) 68904: Concrete Building Assembler/Techni marissa ID = [id number] for He armandndMarcelino duarteica POCT-GLUCOSE [id number] 18:45:03 Test Item Value Reference Range Interpretation Comments POC-GLUCOSE METER 276 mg/dL 70-110 H : TESTED A T [facility] 6720 (BEAKER) (test code = [facility], 1538) 50099: Concrete Building Assembler/Techni marissa ID = [id number] for Bu ggs (contract), Gaf fery POCT-GLUCOSE [id number] 14:53:09 Test Item Value Reference Range Interpretation Comments POC-GLUCOSE METER 305 mg/dL 70-110 H : TESTED A T [facility] 6720 ([place]) (test code = [facility], 1538) 51685: Concrete Building Assembler/Techni marissa ID = [id number] for Bu ggs (contract), Gaf fery [id number] 13:16:36 Test Item Value Reference Range Interpretation Comments PHOSPHORUS (BEAKER) (test code = 5.6 mg/dL 2.3-4.7 H 604) Concrete Building Assembler ID - JOEL [id number] 13:16:35 Test Item Value Reference Range Interpretation Comments MAGNESIUM (BEAKER) (test code = 2.5 mg/dL 1.6-2.6 627) Concrete Building Assembler ID - JOEL BBASIC METABOLIC [id number] 13:16:34 Test Item Value Reference Range Interpretation Comments SODIUM (BEAKER) 142 meq/L 136-145 (test code = 381) POTASSIUM 4.8 meq/L 3.5-5.1 (BEAKER) (test code = 379) CHLORIDE (BEAKER) 106 meq/L 98-107 (test code = 382) CO2 (BEAKER) 23 meq/L 22-29 (test code = 355) BLOOD UREA 40 mg/dL 7-21 H NITROGEN (BEAKER) (test code = 354) CREATININE 1.70 mg/dL 0.57-1.25 H (BEAKER) (test code = 358) GLUCOSE RANDOM 239 mg/dL 70-105 H (BEAKER) (test code = 652) CALCIUM (BEAKER) 8.3 mg/dL 8.4-10.2 L (test code = 697) EGFR (BEAKER) 46 Interpretatio n of eGFR (test code = mL/min/1.73 values Stage D escription 1092) sq m Result G1 Lucy l or high >=90 G2 Mildly decreased 60-89 G3a Mildl y to moderately 45-5 9 G3b Moderately to s everely 30-44 G4 Severl y decreased 15-29 G5 Kidney failure <15Reported eGF R is based on the CKD-EPI 1 equation that d oes not use a race coefficientEsti mated GFR is not as accur ate as Creatinine Zuri hylton in predicting glom erular filtration rate . Estimated GFR is not appl icable for dialysis patien ts Concrete Building Assembler ID - JOEL BPOCT-GLUCOSE [id number] 13:01:27 Test Item Value Reference Range Interpretation Comments POC-GLUCOSE METER 221 mg/dL 70-110 H : TESTED A T [facility] 6720 (BEAKER) (test code = [facility], 1538) 54519: Concrete Building Assembler/Techni marissa ID = [id number] for Bu ggs (contract), Gaf fery POCT-GLUCOSE [id number] 11:25:07 Test Item Value Reference Range Interpretation Comments POC-GLUCOSE METER 99 mg/dL 70-110 : TESTED A T [facility] 6720 ([place]) (test code = [facility], 1538) 69339: Concrete Building Assembler/Techni marissa ID = [id number] for Estrellita s (contract), Gaf fery POCT-GLUCOSE [id number] 11:02:24 Test Item Value Reference Range Interpretation Comments POC-GLUCOSE METER 86 mg/dL 70-110 : TESTED A T [facility] 6720 (BEAKER) (test code = [facility], 1538) 19980: Concrete Building Assembler/Techni marissa ID = [id number] for Estrellita s (contract), Gaf fery POCT-GLUCOSE [id number] 09:03:24 Test Item Value Reference Range Interpretation Comments POC-GLUCOSE METER 123 mg/dL 70-110 H : TESTED A T [facility] 6720 ([place]) (test code = 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 Intervalplacement of a nasogastric tube which extends into the body of thestomach.Mild perihilar vascular congestion is again present. A small lefteffusion is suspected. There is nopneumothorax. Cardiac size isunchanged. Sternotomy changes are again noted.Electronically Signed By:Saad Sampson02/20/2023 07:23 CDTWorkstation Name: [id number] [id number] 06:51:12 Test Item Value Reference Range Interpretation Comments POC-GLUCOSE METER 138 mg/dL 70-110 H : TESTED A T [facility] 6720 (BEAKER) (test code = [facility], 1538) 26408: Concrete Building Assembler/Techni marissa ID = [id number] for Jessica Paredes POCT-GLUCOSE [id number] 05:16:53 Test Item Value Reference Range Interpretation Comments POC-GLUCOSE METER 171 mg/dL 70-110 H : TESTED A T [facility] 6720 (BEAKER) (test code = [facility], 1538) 47210: Concrete Building Assembler/Techni marissa ID = [id number] for Jessica Paredes [id number] 04:38:55 Test Item Value Reference Range Interpretation Comments PHOSPHORUS (BEAKER) (test code = 4.2 mg/dL 2.3-4.7 604) Concrete Building Assembler ID - [id number] 04:38:54 Test Item Value Reference Range Interpretation Comments MAGNESIUM (BEAKER) (test code = 2.5 mg/dL 1.6-2.6 627) Concrete Building Assembler ID - FSEBASIC METABOLIC [id number] 04:38:53 Test Item Value Reference Range Interpretation Comments SODIUM (BEAKER) 142 meq/L 136-145 (test code = 381) POTASSIUM 4.0 meq/L 3.5-5.1 (BEAKER) (test code = 379) CHLORIDE (BEAKER) 106 meq/L 98-107 (test code = 382) CO2 (BEAKER) 23 meq/L 22-29 (test code = 355) BLOOD UREA 37 mg/dL 7-21 H NITROGEN (BEAKER) (test code = 354) CREATININE 1.55 mg/dL 0.57-1.25 H (BEAKER) (test code = 358) GLUCOSE RANDOM 105 mg/dL 70-105 (BEAKER) (test code = 652) CALCIUM (BEAKER) 8.1 mg/dL 8.4-10.2 L (test code = 697) EGFR (BEAKER) 52 Interpretatio n of eGFR (test code = mL/min/1.73 values Stage De scription 1092) sq m Result G1 Lucy l or high >=90 G2 Mildly decreased 60-89 G3a Mildl y to moderately 45-5 9 G3b Moderately to s everely 30-44 G4 Severl y decreased 15-29 G5 Kidney failure <15Reported eGF R is based on the CKD-EPI 2020 equation that d oes not use a race coefficientEsti mated GFR is not as accur ate as Creatinine Zuri warner in predicting glom erular filtration rate . Estimated GFR is not appl icable for dialysis patien ts Concrete Building Assembler ID - FSEPOCT-GLUCOSE [id number] 04:17:19 Test Item Value Reference Range Interpretation Comments POC-GLUCOSE METER 142 mg/dL 70-110 H : TESTED A T [facility] 6720 ([facility]) (test code = [facility], 1538) 42683: Concrete Building Assembler/Techni marissa ID = [id number] for Jessica Paredes CBC W/PLT COUNT & AUTO [id number] 03:48:41 Test Item Value Reference Range Interpretation Comments WHITE BLOOD CELL COUNT (BEAKER) 8.9 K/ L 3.5-10.5 (test code = 775) RED BLOOD CELL COUNT (BEAKER) 2.93 M/ L 4.63-6.08 L (test code = 761) HEMOGLOBIN (BEAKER) (test code = 8.2 GM/DL 13.7-17.5 L 410) HEMATOCRIT (BEAKER) (test code = 26.6 % 40.1-51.0 L 411) MEAN CORPUSCULAR VOLUME (BEAKER) 91 fL 79-92 (test code = 753) MEAN CORPUSCULAR HEMOGLOBIN 28.0 pg 25.7-32.2 (BEAKER) (test code = 751) MEAN CORPUSCULAR HEMOGLOBIN CONC 30.8 GM/DL 32.3-36.5 L (BEAKER) (test code = 752) RED CELL DISTRIBUTION WIDTH 14.6 % 11.6-14.4 H (BEAKER) (test code = 412) PLATELET COUNT (BEAKER) (test 504 K/CU MM 150-450 H code = 756) MEAN PLATELET VOLUME (BEAKER) 10.1 fL 9.4-12.4 (test code = 754) NUCLEATED RED BLOOD CELLS 0 /100 WBC 0-0 (BEAKER) (test code = 413) NEUTROPHILS RELATIVE PERCENT 63 % (BEAKER) (test code = 429) LYMPHOCYTES RELATIVE PERCENT 19 % (BEAKER) (test code = 430) MONOCYTES RELATIVE PERCENT 11 % (BEAKER) (test code = 431) EOSINOPHILS RELATIVE PERCENT 5 % (BEAKER) (test code = 432) BASOPHILS RELATIVE PERCENT 1 % (BEAKER) (test code = 437) NEUTROPHILS ABSOLUTE COUNT 5.66 K/ L 1.78-5.38 H (BEAKER) (test code = 670) LYMPHOCYTES ABSOLUTE COUNT 1.73 K/ L 1.32-3.57 (BEAKER) (test code = 414) MONOCYTES ABSOLUTE COUNT (BEAKER) 0.97 K/ L 0.30-0.82 H (test code = 415) EOSINOPHILS ABSOLUTE COUNT 0.43 K/ L 0.04-0.54 (BEAKER) (test code = 416) BASOPHILS ABSOLUTE COUNT (BEAKER) 0.10 K/ L 0.01-0.08 H (test code = 417) IMMATURE GRANULOCYTES-RELATIVE 0.60 % 0.00-1.00 PERCENT (BEAKER) (test code = 2801) POCT-GLUCOSE [id number] 02:51:13 Test Item Value Reference Range Interpretation Comments POC-GLUCOSE METER 99 mg/dL 70-110 : TESTED A T [facility] 6720 (BEAKER) (test code = [facility], 153) 28082: Concrete Building Assembler/Techni marissa ID = [id number] for Lenka laguerre Jessica POCT-GLUCOSE [id number] 01:02:23 Test Item Value Reference Range Interpretation Comments POC-GLUCOSE METER 146 mg/dL 70-110 H : TESTED A T [facility] 6720 (BEAKER) (test code = [facility], 153) 93704: Concrete Building Assembler/Techni marissa ID = [id number] for Francois armandj luis Jessica [id number] 22:40:27 Test Item Value Reference Range Interpretation Comments PHOSPHORUS (BEAKER) (test code = 4.5 mg/dL 2.3-4.7 604) Concrete Building Assembler ID - [id number] 22:40:26 Test Item Value Reference Range Interpretation Comments MAGNESIUM (BEAKER) (test code = 2.4 mg/dL 1.6-2.6 627) Concrete Building Assembler ID - FSEBASIC METABOLIC [id number] 22:40:25 Test Item Value Reference Range Interpretation Comments SODIUM (BEAKER) 139 meq/L 136-145 (test code = 381) POTASSIUM 4.1 meq/L 3.5-5.1 (BEAKER) (test code = 379) CHLORIDE (BEAKER) 104 meq/L 98-107 (test code = 382) CO2 (BEAKER) 22 meq/L 22-29 (test code = 355) BLOOD UREA 36 mg/dL 7-21 H NITROGEN (BEAKER) (test code = 354) CREATININE 1.52 mg/dL 0.57-1.25 H (BEAKER) (test code = 358) GLUCOSE RANDOM 191 mg/dL 70-105 H (BEAKER) (test code = 652) CALCIUM (BEAKER) 8.0 mg/dL 8.4-10.2 L (test code = 697) EGFR (BEAKER) 53 Interpretatio n of eGFR (test code = mL/min/1.73 values Stage De scription 1092) sq m Result G1 Lucy l or high >=90 G2 Mildly decreased 60-89 G3a Mildl y to moderately 45-5 9 G3b Moderately to s everely 30-44 G4 Severl y decreased 15-29 G5 Kidney failure <15Reported eGF R is based on the CKD-EPI 2020 equation that d oes not use a race coefficientEsti mated GFR is not as accur ate as Creatinine Zuri hylton in predicting glom erular filtration rate . Estimated GFR is not appl icable for dialysis patien ts Concrete Building Assembler ID - FSEPOCT-GLUCOSE [id number] 22:20:02 Test Item Value Reference Range Interpretation Comments POC-GLUCOSE METER 190 mg/dL 70-110 H : [facility] [place] (test code = [facility] [place], 1538) 28906: Concrete Building Assembler/Techni marissa ID = [id number] for Jessica Paredes POCT-GLUCOSE [id number] 22:00:12 Test Item Value Reference Range Interpretation Comments POC-GLUCOSE METER 184 mg/dL 70-110 H : TESTED A T [facility] 6720 (BEAKER) (test code = [facility], 1538) 72383: Concrete Building Assembler/Techni marissa ID = [id number] for Jessica Paredes POCT-GLUCOSE [id number] 20:23:28 Test Item Value Reference Range Interpretation Comments POC-GLUCOSE METER 226 mg/dL 70-110 H : TESTED A T [facility] 6720 (BEAKER) (test code = [facility], 1538) 26208: Concrete Building Assembler/Techni marissa ID = [id number] for Br others, Lacy POCT-GLUCOSE [id number] 18:40:08 Test Item Value Reference Range Interpretation Comments POC-GLUCOSE METER 197 mg/dL 70-110 H : TESTED A T [facility] 6720 (BEAKER) (test code = [facility], 1538) 66781: Concrete Building Assembler/Techni marissa ID = [id number] for Br others, Lacy XR ABDOMEN/KUB 1 VIEW [id number] 17:30:26 [facility] 1965 Sex: MTECHNIQUE: XR ABDOMEN/KUB 1 VIEW PORTABLEINDICATION: tube position.COMPARISON: 02/19/2023 at 11:00 AMFINDINGS:Feeding tube tip projects over the third portion of the duodenum.Esophagogastric tube tip now projecting over the body/fundus of thestomach with side hole below the expected level of the GE junction.Resolution of previously noted distended gas-filled small bowel loopswithin the left mid abdomen. Mild gaseous prominence of the transversecolon, similar to the prior examination. Lower abdomen and pelvis areincompletely included on this examination.IMPRESSION:1. Esophagogastric tube tip now projects over the biceps fundus of thestomach with sidehole below the level of the GE junction. Feeding tubetip now projects over the third portion of the duodenum.2. Mild residual gaseous prominence of the transverse colon withresolution of previously noted gas-filled dilated loops of small bowelwithin the left mid abdomen.Electronically Signed By: Glenn Felton02/19/2023 17:32 CDTWorkstation Name: [id number] 17:05:56 Test Item Value Reference Range Interpretation Comments POC-GLUCOSE METER 168 mg/dL 70-110 H : TESTED A T [facility] 6720 (BEAKER) (test code = [facility], 1538) 35427: Concrete Building Assembler/Techni marissa ID = [id number] for Br others, Lacy SPUTUM CULTURE + GRAM [id number] 15:04:41 Test Item Value Reference Range Interpretation Comments CULTURE (BEAKER) (test code No growth = 1095) GRAM STAIN RESULT (BEAKER) <1+ WBCs (test code = 1123) GRAM STAIN RESULT (BEAKER) No organisms seen (test code = 63038) POCT-GLUCOSE [id number] 15:04:05 Test Item Value Reference Range Interpretation Comments POC-GLUCOSE METER 161 mg/dL 70-110 H : TESTED A T [facility] 6720 (BEAKER) (test code = [facility], 1538) 81790: Concrete Building Assembler/Techni marissa ID = [id number] for Br others, Lacy POCT-GLUCOSE [id number] 13:48:47 Test Item Value Reference Range Interpretation Comments POC-GLUCOSE METER 171 mg/dL 70-110 H : TESTED A T [facility] 6720 (BEAKER) (test code = [facility], 1538) 14128: Concrete Building Assembler/Techni marissa ID = [id number] for Br others, Lacy [id number] 13:13:01 Test Item Value Reference Range Interpretation Comments PHOSPHORUS (BEAKER) (test code = 5.9 mg/dL 2.3-4.7 H 604) Concrete Building Assembler ID - [id number] 13:13:00 Test Item Value Reference Range Interpretation Comments MAGNESIUM (BEAKER) (test code = 2.5 mg/dL 1.6-2.6 627) Concrete Building Assembler ID - EMBASIC METABOLIC [id number] 13:12:59 Test Item Value Reference Range Interpretation Comments SODIUM (BEAKER) 144 meq/L 136-145 (test code = 381) POTASSIUM 4.0 meq/L 3.5-5.1 (BEAKER) (test code = 379) CHLORIDE (BEAKER) 105 meq/L 98-107 (test code = 382) CO2 (BEAKER) 29 meq/L 22-29 (test code = 355) BLOOD UREA 34 mg/dL 7-21 H NITROGEN (BEAKER) (test code = 354) CREATININE 1.48 mg/dL 0.57-1.25 H (BEAKER) (test code = 358) GLUCOSE RANDOM 73 mg/dL 70-105 (BEAKER) (test code = 652) CALCIUM (BEAKER) 8.4 mg/dL 8.4-10.2 (test code = 697) EGFR (BEAKER) 54 Interpretatio n of eGFR (test code = mL/min/1.73 values Stage De scription 1092) sq m Result G1 Lucy l or high >=90 G2 Mildly decreased 60-89 G3a Mildl y to moderately 45-5 9 G3b Moderately to s everely 30-44 G4 Severl y decreased 15-29 G5 Kidney failure <15Reported eGF R is based on the CKD-EPI 2020 equation that d oes not use a race coefficientEsti mated GFR is not as accur ate as Creatinine Zuri hylton in predicting glom erular filtration rate . Estimated GFR is not appl icable for dialysis patien ts Concrete Building Assembler ID - EMPOCT-GLUCOSE [id number] 12:28:59 Test Item Value Reference Range Interpretation Comments POC-GLUCOSE METER 150 mg/dL 70-110 H : TESTED A T [facility] 6720 (BEAKER) (test code = NABOR RANDALL, 1538) 55085: Concrete Building Assembler/Techni marissa ID = [id number] for Sangeetha salter Lacy POCT-GLUCOSE [id number] 12:05:27 Test Item Value Reference Range Interpretation Comments POC-GLUCOSE METER 65 mg/dL 70-110 L : TESTED A T [facility] 6720 (BEAKER) (test code = NABOR [place], 1538) 27316: Concrete Building Assembler/Techni marissa ID = [id number] for Lacy Hernandez POCT-GLUCOSE [id number] 11:45:22 Test Item Value Reference Range Interpretation Comments POC-GLUCOSE METER 71 mg/dL 70-110 : TESTED A T [facility] 67[address] (SUNG) (test code = NABOR [place], 1538) 29567: Concrete Building Assembler/Techni marissa ID = [id number] for Lacy Hernandez XR ABDOMEN/KUB 1 VIEW [id number] 11:26:21 [facility] 1965 Sex: MXR ABDOMEN/KUB 1 VIEW PORTABLECLINICAL INDICATION: tube position COMPARISON: NoneTECHNIQUE: Single, frontal radiograph of the abdomen.FINDINGS: NG tube tube terminates overlying the distal stomach. Feeding tubeoverlies the duodenum.Multiple dilated loops of small bowel throughout the abdomen concerningfor ileus with partial obstruction not excluded.Evaluation for free air is limited by portable supine technique. Withinthese limitations, no free air is identified. Electronically Signed By: Mavis Vinson02/19/2023 11:28 CDTWorkstation Name: [id number] GLUCOSE [id number] 09:43:37 Test Item Value Reference Range Interpretation Comments POC-GLUCOSE METER 109 mg/dL 70-110 : [facility] (SUNG[facility] (test code = NABOR [place], 1538) 13790: Concrete Building Assembler/Techni marissa ID = [id number] for Lacy Yoder POCT-GLUCOSE [id number] 08:48:03 Test Item Value Reference Range Interpretation Comments POC-GLUCOSE METER 119 mg/dL 70-110 H : TESTED A T [facility] 6720 (BEAKER) (test code = [facility] Debby [facility], 1538) 20575: Concrete Building Assembler/Techni marissa ID = [id number] for Lacy Yoder POCT-GLUCOSE [id number] 07:45:28 Test Item Value Reference Range Interpretation Comments POC-GLUCOSE METER 149 mg/dL 70-110 H : TESTED A T [facility] 6720 (BEAKER) (test code = NABOR Guardado [facility], 1538) 72992: Concrete Building Assembler/Techni marissa ID = [id number] for Sis Perez POCT-GLUCOSE [id number] 07:23:04 Test Item Value Reference Range Interpretation Comments POC-GLUCOSE METER 160 mg/dL 70-110 H : TESTED A T [facility] 6720 (BEAKER) ([facility], = 1538) 16390: Concrete Building Assembler/Techni marissa ID = [id number] for Alfredo Virk XR CHEST 1 VIEW PORTABLE / [id number] 06:56:40 [facility] 1965 Sex: MXR CHEST 1 VIEW PORTABLE / BEDSIDEINDICATION: daily morningCOMPARISON: Prior day's examFINDINGS: Portable frontal view of the chest. IMPRESSION:Support Lines: ET tube tip is 3 cm of the carlos. Feeding tube descendsbelow the diaphragm. Lungs and pleura: Central vascular congestion and left lower lobeairspace disease persists. No significant pneumothorax.Heart and mediastinum: Stable contours. Stable surgical changes.Additional findings: None. Electronically Signed By: Mavis Vinson02/19/2023 06:58 CDTWorkstation Name: [id number] METER 2023-02-19 06:19:41 Test Item Value Reference Range Interpretation Comments POC-GLUCOSE METER 213 mg/dL 70-110 H : TESTED A T [facility] 6720 (BEAKER) (test code [facility], = 1538) 65476: Concrete Building Assembler/Techni marissa ID = [id number] for Torm is, Fabyechella POCT-GLUCOSE [id number] 05:29:11 Test Item Value Reference Range Interpretation Comments POC-GLUCOSE METER 219 mg/dL 70-110 H : TESTED A T [facility] 6720 (BEAKER) (test code [facility], = 1538) 64952: Concrete Building Assembler/Techni marissa ID = [id number] for Torm is, Fabyechella POCT-GLUCOSE [id number] 04:21:23 Test Item Value Reference Range Interpretation Comments POC-GLUCOSE METER 203 mg/dL 70-110 H : TESTED A T [facility] 6720 (BEAKER) (test code [facility], = 1538) 53917: Concrete Building Assembler/Techni marissa ID = [id number] for Torm is, Fabyechday [id number] 03:06:57 Test Item Value Reference Range Interpretation Comments PHOSPHORUS (BEAKER) (test code = 4.4 mg/dL 2.3-4.7 604) Concrete Building Assembler ID - [id number] 03:06:56 Test Item Value Reference Range Interpretation Comments MAGNESIUM (BEAKER) (test code = 2.4 mg/dL 1.6-2.6 627) Concrete Building Assembler ID - EMBASIC METABOLIC [id number] 03:06:55 Test Item Value Reference Range Interpretation Comments SODIUM (BEAKER) 141 meq/L 136-145 (test code = 381) POTASSIUM 4.0 meq/L 3.5-5.1 (BEAKER) (test code = 379) CHLORIDE (BEAKER) 105 meq/L 98-107 (test code = 382) CO2 (BEAKER) 25 meq/L 22-29 (test code = 355) BLOOD UREA 32 mg/dL 7-21 H NITROGEN (BEAKER) (test code = 354) CREATININE 1.20 mg/dL 0.57-1.25 (BEAKER) (test code = 358) GLUCOSE RANDOM 93 mg/dL 70-105 (BEAKER) (test code = 652) CALCIUM (BEAKER) 8.4 mg/dL 8.4-10.2 (test code = 697) EGFR (BEAKER) 70 Interpretatio n of eGFR (test code = mL/min/1.73 values Stage De scription 1092) sq m Result G1 Lucy l or high >=90 G2 Mildly decreased 60-89 G3a Mildl y to moderately 45-5 9 G3b Moderately to s everely 30-44 G4 Severl y decreased 15-29 G5 Kidney failure <15Reported eGF R is based on the CKD-EPI 2020 equation that d oes not use a race coefficientEsti mated GFR is not as accur ate as Creatinine Zuri warner in predicting glom erular filtration rate . Estimated GFR is not appl icable for dialysis patien ts Concrete Building Assembler ID - EMPOCT-GLUCOSE [id number] 02:56:57 Test Item Value Reference Range Interpretation Comments POC-GLUCOSE METER 136 mg/dL 70-110 H : TESTED A T [facility] (BEAKER) ([facility], = 1538) 09719: Concrete Building Assembler/Techni marissa ID = [id number] for Alfredo Virk CBC W/PLT COUNT & AUTO [id number] 02:46:17 Test Item Value Reference Range Interpretation Comments WHITE BLOOD CELL COUNT (BEAKER) 14.2 K/ L 3.5-10.5 H (test code = 775) RED BLOOD CELL COUNT (BEAKER) 3.44 M/ L 4.63-6.08 L (test code = 761) HEMOGLOBIN (BEAKER) (test code = 9.6 GM/DL 13.7-17.5 L 410) HEMATOCRIT (BEAKER) (test code = 30.8 % 40.1-51.0 L 411) MEAN CORPUSCULAR VOLUME (BEAKER) 90 fL 79-92 (test code = 753) MEAN CORPUSCULAR HEMOGLOBIN 27.9 pg 25.7-32.2 (BEAKER) (test code = 751) MEAN CORPUSCULAR HEMOGLOBIN CONC 31.2 GM/DL 32.3-36.5 L (BEAKER) (test code = 752) RED CELL DISTRIBUTION WIDTH 14.6 % 11.6-14.4 H (BEAKER) (test code = 412) PLATELET COUNT (BEAKER) (test 561 K/CU MM 150-450 H code = 756) MEAN PLATELET VOLUME (BEAKER) 10.6 fL 9.4-12.4 (test code = 754) NUCLEATED RED BLOOD CELLS 0 /100 WBC 0-0 (BEAKER) (test code = 413) NEUTROPHILS RELATIVE PERCENT 79 % (BEAKER) (test code = 429) LYMPHOCYTES RELATIVE PERCENT 11 % (BEAKER) (test code = 430) MONOCYTES RELATIVE PERCENT 7 % (BEAKER) (test code = 431) EOSINOPHILS RELATIVE PERCENT 2 % (BEAKER) (test code = 432) BASOPHILS RELATIVE PERCENT 1 % (BEAKER) (test code = 437) NEUTROPHILS ABSOLUTE COUNT 11.28 K/ L 1.78-5.38 H (BEAKER) (test code = 670) LYMPHOCYTES ABSOLUTE COUNT 1.50 K/ L 1.32-3.57 (BEAKER) (test code = 414) MONOCYTES ABSOLUTE COUNT (BEAKER) 0.96 K/ L 0.30-0.82 H (test code = 415) EOSINOPHILS ABSOLUTE COUNT 0.31 K/ L 0.04-0.54 (BEAKER) (test code = 416) BASOPHILS ABSOLUTE COUNT (BEAKER) 0.08 K/ L 0.01-0.08 (test code = 417) IMMATURE GRANULOCYTES-RELATIVE 0.40 % 0.00-1.00 PERCENT (BEAKER) (test code = 2801) POCT-GLUCOSE [id number] 02:28:20 Test Item Value Reference Range Interpretation Comments POC-GLUCOSE METER 89 mg/dL 70-110 : TESTED A T [facility] 6720 (BEAKER) (test code [facility], = 1538) 45054: Concrete Building Assembler/Techni marissa ID = [id number] for Torm is, Mariechella POCT-GLUCOSE [id number] 02:26:10 Test Item Value Reference Range Interpretation Comments POC-GLUCOSE METER 98 mg/dL 70-110 : TESTED A T [facility] 6720 (BEAKER) (test code [facility], = 1538) 91091: Concrete Building Assembler/Techni marissa ID = [id number] for Torm is, Mariechella POCT-GLUCOSE [id number] 01:11:10 Test Item Value Reference Range Interpretation Comments POC-GLUCOSE METER 118 mg/dL 70-110 H : TESTED A T [facility] 6720 (BEAKER) (test code [facility], = 1538) 56382: Concrete Building Assembler/Techni marissa ID = [id number] for Torm is, Mariechella POCT-GLUCOSE [id number] 00:32:28 Test Item Value Reference Range Interpretation Comments POC-GLUCOSE METER 117 mg/dL 70-110 H : TESTED A T [facility] 6720 (BEAKER) (test code [facility], = 1538) 75876: Concrete Building Assembler/Techni marissa ID = [id number] for Torm is, Mariechella POCT-GLUCOSE [id number] 23:47:12 Test Item Value Reference Range Interpretation Comments POC-GLUCOSE METER 153 mg/dL 70-110 H : TESTED A T [facility] 6720 (BEAKER) (test code [facility], = 1538) 58112: Concrete Building Assembler/Techni marissa ID = [id number] for Torm is, Mariechella POCT-GLUCOSE [id number] 22:55:57 Test Item Value Reference Range Interpretation Comments POC-GLUCOSE METER 173 mg/dL 70-110 H : TESTED A T [facility] 6720 (BEAKER) (test code [facility], = 1538) 35657: Concrete Building Assembler/Techni marissa ID = [id number] for Torm is, Mariechella [id number] 21:41:58 Test Item Value Reference Range Interpretation Comments PHOSPHORUS (BEAKER) (test code = 4.2 mg/dL 2.3-4.7 604) Concrete Building Assembler ID - EMBASIC METABOLIC [id number] 21:41:57 Test Item Value Reference Range Interpretation Comments SODIUM (BEAKER) 138 meq/L 136-145 (test code = 381) POTASSIUM 4.2 meq/L 3.5-5.1 (BEAKER) (test code = 379) CHLORIDE (BEAKER) 102 meq/L 98-107 (test code = 382) CO2 (BEAKER) 26 meq/L 22-29 (test code = 355) BLOOD UREA 31 mg/dL 7-21 H NITROGEN (BEAKER) (test code = 354) CREATININE 1.12 mg/dL 0.57-1.25 (BEAKER) (test code = 358) GLUCOSE RANDOM 157 mg/dL 70-105 H (SUNG) (test code = 652) CALCIUM (BEAKER) 8.5 mg/dL 8.4-10.2 (test code = 697) EGFR (BEAKER) 76 Interpretatio n of eGFR (test code = mL/min/1.73 values Stage D escription 1092) sq m Result G1 Lucy l or high >=90 G2 Mildly decreased 60-89 G3a Mildl y to moderately 45-5 9 G3b Moderately to s everely 30-44 G4 Severl y decreased 15-29 G5 Kidney failure <15Reported eGF R is based on the CKD-EPI 2020 equation that d oes not use a race coefficientEsti mated GFR is not as accur ate as Creatinine Zuri warner in predicting glom erular filtration rate . Estimated GFR is not appl icable for dialysis patien ts Concrete Building Assembler ID - [id number] 21:41:57 Test Item Value Reference Range Interpretation Comments MAGNESIUM (SUNG) (test code = 2.4 mg/dL 1.6-2.6 627) Concrete Building Assembler ID - EMPOCT-GLUCOSE [id number] 21:35:38 Test Item Value Reference Range Interpretation Comments POC-GLUCOSE METER 189 mg/dL 70-110 H : TESTED A T [facility] 6720 (BEAKER) (test code [facility], = 1538) 03041: Concrete Building Assembler/Techni marissa ID = [id number] for Torm is, Mariechella POCT-GLUCOSE [id number] 20:23:00 Test Item Value Reference Range Interpretation Comments POC-GLUCOSE METER 154 mg/dL 70-110 H : TESTED A T [facility] 6720 (BEAKER) (test code [facility], = 1538) 32086: Concrete Building Assembler/Techni marissa ID = [id number] for Torm is, Mariechella POCT-GLUCOSE [id number] 18:57:58 Test Item Value Reference Range Interpretation Comments POC-GLUCOSE METER 165 mg/dL 70-110 H : TESTED A T [facility] 6720 (BEAKER) (test code = [facility], 1538) 44966: Concrete Building Assembler/Techni marissa ID = [id number] for Br others, Lacy POCT-GLUCOSE [id number] 17:26:01 Test Item Value Reference Range Interpretation Comments POC-GLUCOSE METER 170 mg/dL 70-110 H : TESTED A [facility] 6720 (SUNG) (test code = [place], 1538) 08553: Concrete Building Assembler/Techni marissa ID = [id number] for Lacy Yoder CT CHEST WITH IV [id number] 16:34:27 [facility] : 1965 Sex: MCT of the chest, abdomen and pelvis, with contrastClinical History: SepsisTechnique: CT of the chest, abdomen and pelvis is performed withintravenous contrast administration. This exam was performed accordingto our departmental dose optimization program which includes automatedexposure control, adjustment of the mA and/or kV according to patient'ssize and/or use of iterative reconstructive technique.Comparison Film: January 223Discussion:ET is above the carlos. Feeding tube terminates in the duodenalbulb.There is increased number of small mediastinal lymph nodes, which couldbe reactive. No supraclavicular, or axillary lymphadenopathy. Heart isnormal in size, no pericardial effusion. There is advanced calcificationof the coronary arteries.There is atelectasis/consolidation in both lower lobes, andto a lesserextent the posterior upper lobes. No significant pleural effusion.Central airways are craig nt, no bronchiectasis or bronchial wallthickening.No liver lesion is identified. No biliary ductal dilatation. There is asmall amount of layering sludge and/or stones within the gallbladder.The spleen,and adrenal glands are normal. Pancreas is atrophied. Noperipancreatic edema or fluid.There is diffuse distention of small and large bowel, which arefluid-filled. No significant bowel wall thickening is identified. Notransition point. No pericolonic, or mesenteric edema.In the pelvis, bladder is decompressed with Chung catheter. Prostate andseminal vesicles are unremarkable.No ascites, free air, or ly mphadenopathy.There is mild anasarca. Bony structures demonstrate degenerativechanges.IMPRESSION:Impression:Patchy atelectasis/consolidation in the posterior lungs bilaterally. Mildly distended state and fluid-filled bowel, probably reflectinglow-grade ileus, and correlate clinically for enterocolitis. Small stones and/or sludge in gallbladder.Mild anasarca.Electronically Signed By: Merlene [facility]02/18/2023 16:36 CDTWorkstation Name: [id number] ABDOMEN/PELVIS WITH IV [id number] 16:34:27 [facility] 1965 Sex: MCT of the chest, abdomen and pelvis, with contrastClinical History: SepsisTechnique: CT of the chest, abdomen and pelvis is performed withintravenous contrast administration. This exam was performed accordingto our departmental dose optimization program which includes automatedexposure control, adjustment of the mA and/or kV according to patient'ssize and/or use of iterative reconstructive technique.Comparison Film: January 22iscussion:ET is above the carlos. Feeding tube terminates in the duodenalbulb.There is increased number of small mediastinal lymph nodes, which couldbe reactive. No supraclavicular, or axillary lymphadenopathy. Heart isnormal in size, no pericardial effusion. There is advanced calcificationof the coronary arteries.There is atelectasis/consolidation in both lower lobes, andto a lesserextent the posterior upper lobes. No significant pleural effusion.Central airways are craig nt, no bronchiectasis or bronchial wallthickening.No liver lesion is identified. No biliary ductal dilatation. There is asmall amount of layering sludge and/or stones within the gallbladder.The spleen,and adrenal glands are normal. Pancreas is atrophied. Noperipancreatic edema or fluid.There is diffuse distention of small and large bowel, which arefluid-filled. No significant bowel wall thickening is identified. Notransition point. No pericolonic, or mesenteric edema.In the pelvis, bladder is decompressed with Chung catheter. Prostate andseminal vesicles are unremarkable.No ascites, free air, or ly mphadenopathy.There is mild anasarca. Bony structures demonstrate degenerativechanges.IMPRESSION:Impression:Patchy atelectasis/consolidation in the posterior lungs bilaterally. Mildly distended state and fluid-filled bowel, probably reflectinglow-grade ileus, and correlate clinically for enterocolitis. Small stones and/or sludge in gallbladder.Mild anasarca.Electronically Signed By: Merlene Santillan02/18/2023 16:36 CDTWorkstation Name: [id number] METER 2023-02-18 16:11:33 Test Item Value Reference Range Interpretation Comments POC-GLUCOSE METER 131 mg/dL 70-110 H : TESTED A T [facility] 6720 (BEAKER) (test code = [facility], 1538) 94259: Concrete Building Assembler/Techni marissa ID = [id number] for Lupillo kolton ([facility]) Riya POCT-GLUCOSE [id number] 15:26:31 Test Item Value Reference Range Interpretation Comments POC-GLUCOSE METER 92 mg/dL 70-110 : TESTED A T [facility] 6720 (BEAKER) (test code = [facility], 1538) 13667: Concrete Building Assembler/Techni marissa ID = [id number] for Lacy Hernandez [id number] 15:16:09 Test Item Value Reference Range Interpretation Comments PREALBUMIN (BEAKER) (test code = 11 mg/dL 14-45 L 586) Concrete Building Assembler ID - ADMINPOCT-GLUCOSE [id number] 13:23:55 Test Item Value Reference Range Interpretation Comments POC-GLUCOSE METER 118 mg/dL 70-110 H : TESTED A T [facility] 6720 (BEAKER) (test code = N[facility] Guardado [place], 1538) 20798: Concrete Building Assembler/Techni marissa ID = [id number] for Br others, Lacy POCT-GLUCOSE [id number] 12:51:54 Test Item Value Reference Range Interpretation Comments POC-GLUCOSE METER 125 mg/dL 70-110 H : TESTED A T [facility] 6720 (BEAKER) (test code = NABOR Guardado [facility], 1538) 23033: Concrete Building Assembler/Techni marissa ID = [id number] for Br others, Lacy URINALYSIS W/ REFLEX URINE [id number] 12:21:36 Test Item Value Reference Range Interpretation Comments COLOR (BEAKER) (test code = 470) Yellow CLARITY (BEAKER) (test code = 469) Cloudy SPECIFIC GRAVITY UA (BEAKER) (test 1.020 1.001-1.035 code = 468) PH UA (BEAKER) (test code = 467) 5.5 5.0-8.0 PROTEIN UA (BEAKER) (test code = 30 mg/dL Negative A 464) GLUCOSE UA (BEAKER) (test code = Negative Negative 365) KETONES UA (BEAKER) (test code = Negative Negative 371) BILIRUBIN UA (BEAKER) (test code = Negative Negative 462) BLOOD UA (BEAKER) (test code = 461) Small Negative A NITRITE UA (BEAKER) (test code = Negative Negative 465) LEUKOCYTE ESTERASE UA (BEAKER) (test Large Negative A code = 466) UROBILINOGEN UA (BEAKER) (test code 0.2 0.2-1.0 = 463) RBC UA (BEAKER) (test code = 519) 52 /HPF WBC UA (BEAKER) (test code = 520) > /HPF MUCUS (BEAKER) (test code = 1574) Rare HYALINE CASTS (BEAKER) (test code = 50 /LPF 514) YEAST (BEAKER) (test code = 1585) Many SOURCE(BEAKER) (test code = 5808) Concrete Building Assembler ID - [auto]Concrete Building Assembler ID - techC-REACTIVE [id number] 11:40:42 Test Item Value Reference Range Interpretation Comments C-REACTIVE PROTEIN (BEAKER) (test 9.22 mg/dL 0.00-0.50 H code = 676) Concrete Building Assembler ID - EMHEPATIC FUNCTION [id number] 11:40:41 Test Item Value Reference Range Interpretation Comments TOTAL PROTEIN (BEAKER) (test code = 6.3 gm/dL 6.0-8.3 770) ALBUMIN (BEAKER) (test code = 1145) 2.5 g/dL 3.5-5.0 L BILIRUBIN TOTAL (BEAKER) (test code 0.3 mg/dL 0.2-1.2 = 377) BILIRUBIN DIRECT (BEAKER) (test 0.2 mg/dL 0.1-0.5 code = 706) ALKALINE PHOSPHATASE (BEAKER) (test 283 U/L 40-150 H code = 346) AST (SGOT) (BEAKER) (test code = 31 U/L 5-34 353) ALT (SGPT) (BEAKER) (test code = 39 U/L 6-55 347) Concrete Building Assembler ID - [id number] 11:40:41 Test Item Value Reference Range Interpretation Comments ALBUMIN (BEAKER) (test code = 1145) 2.5 g/dL 3.5-5.0 L [id number] 11:40:40 Test Item Value Reference Range Interpretation Comments PHOSPHORUS (BEAKER) (test code = 4.8 mg/dL 2.3-4.7 H 604) Concrete Building Assembler ID - [id number] 11:40:39 Test Item Value Reference Range Interpretation Comments MAGNESIUM (BEAKER) (test code = 2.3 mg/dL 1.6-2.6 627) Concrete Building Assembler ID - EMBASIC METABOLIC [id number] 11:40:38 Test Item Value Reference Range Interpretation Comments SODIUM (BEAKER) 139 meq/L 136-145 (test code = 381) POTASSIUM 4.0 meq/L 3.5-5.1 (BEAKER) (test code = 379) CHLORIDE (BEAKER) 102 meq/L 98-107 (test code = 382) CO2 (BEAKER) 28 meq/L 22-29 (test code = 355) BLOOD UREA 30 mg/dL 7-21 H NITROGEN (BEAKER) (test code = 354) CREATININE 1.09 mg/dL 0.57-1.25 (BEAKER) (test code = 358) GLUCOSE RANDOM 187 mg/dL 70-105 H (BEAKER) (test code = 652) CALCIUM (BEAKER) 8.2 mg/dL 8.4-10.2 L (test code = 697) EGFR (AKER) 79 Interpretatio n of eGFR (test code = mL/min/1.73 values Stage De scription 1092) sq m Result G1 Lucy l or high >=90 G2 Mildly decreased 60-89 G3a Mildl y to moderately 45-5 9 G3b Moderately to s everely 30-44 G4 Severl y decreased 15-29 G5 Kidney failure <15Reported eGF R is based on the CKD-EPI 2020 equation that d oes not use a race coefficientEsti mated GFR is not as accur ate as Creatinine Zuri warner in predicting glom erular filtration rate . Estimated GFR is not appl icable for dialysis patien ts Concrete Building Assembler ID - EMPOCT-GLUCOSE [id number] 11:16:02 Test Item Value Reference Range Interpretation Comments POC-GLUCOSE METER 137 mg/dL 70-110 H : TESTED A T [facility] 6720 (BEAKER) (test code = [facility], 1538) 52529: Concrete Building Assembler/Techni marissa ID = [id number] for Br others, Lacy POCT-GLUCOSE [id number] 10:22:06 Test Item Value Reference Range Interpretation Comments POC-GLUCOSE METER 154 mg/dL 70-110 H : TESTED A T [facility] 6720 (BEAKER) (test code = [facility], 1538) 24894: Concrete Building Assembler/Techni marissa ID = [id number] for Br others, Lacy POCT-GLUCOSE [id number] 08:59:05 Test Item Value Reference Range Interpretation Comments POC-GLUCOSE METER 160 mg/dL 70-110 H : TESTED A T [facility] 6720 (BEAKER) (test code = [facility], 1538) 66710: Concrete Building Assembler/Techni marissa ID = [id number] for Br others, Lacy POCT-GLUCOSE [id number] 07:42:33 Test Item Value Reference Range Interpretation Comments POC-GLUCOSE METER 177 mg/dL 70-110 H : TESTED A T [facility] 6720 (BEAKER) (test code = [facility], 1538) 99567: Concrete Building Assembler/Techni marissa ID = [id number] for Lacy Yoder XR CHEST 1 VIEW PORTABLE / [id number] 07:35:22 [facility] 1965 Sex: MXR CHEST 1 VIEW PORTABLE / BEDSIDEINDICATION: daily morningCOMPARISON: Prior day's examFINDINGS: Portable frontal view of the chest. IMPRESSION:Support Lines: ET tube tip is 3 cm of the carlos. Feeding tube descendsbelow the diaphragm. Lungs and pleura: Central vascular congestion and left lower lobeairspace disease persists. No significant pneumothorax.Heart and mediastinum: Stable contours. Stable surgical changes.Additional findings: None. Electronically Signed By: Mavis Vinson02/18/2023 07:37 CDTWorkstation Name: [id number] METER 2023-02-18 06:36:44 Test Item Value Reference Range Interpretation Comments POC-GLUCOSE METER 183 mg/dL 70-110 H : TESTED A [facility] ([place]) (test code [facility], = 1538) 25147: Concrete Building Assembler/Techni marissa ID = [id number] for Torm is, Mariechella POCT-GLUCOSE [id number] 05:46:01 Test Item Value Reference Range Interpretation Comments POC-GLUCOSE METER 181 mg/dL 70-110 H : TESTED A T [facility] 6720 ([place]) (test code [facility], = 1538) 28499: Concrete Building Assembler/Techni marissa ID = [id number] for Torm is, Mariechella POCT-GLUCOSE [id number] 04:57:41 Test Item Value Reference Range Interpretation Comments POC-GLUCOSE METER 208 mg/dL 70-110 H : TESTED A T [facility] 6720 (BEAKER) (test code [facility], = 1538) 17289: Concrete Building Assembler/Techni marissa ID = [id number] for Torm is, Liliaella POCT-GLUCOSE [id number] 03:47:13 Test Item Value Reference Range Interpretation Comments POC-GLUCOSE METER 235 mg/dL 70-110 H : TESTED A T [facility] 6720 (BEAKER) (test code [facility], = 1538) 77094: Concrete Building Assembler/Techni marissa ID = [id number] for Torm is, Fabyechella POCT-GLUCOSE [id number] 02:50:48 Test Item Value Reference Range Interpretation Comments POC-GLUCOSE METER 241 mg/dL 70-110 H : TESTED A T [facility] 6720 (BEAKER) (test code [facility], = 1538) 53104: Concrete Building Assembler/Techni marissa ID = [id number] for Torm is, Fabyechella BASIC METABOLIC [id number] 02:27:12 Test Item Value Reference Range Interpretation Comments SODIUM (BEAKER) 138 meq/L 136-145 (test code = 381) POTASSIUM 4.7 meq/L 3.5-5.1 Specimen slight ly (BEAKER) (test hemolyzed code = 379) CHLORIDE (BEAKER) 102 meq/L 98-107 (test code = 382) CO2 (BEAKER) 22 meq/L 22-29 (test code = 355) BLOOD UREA 31 mg/dL 7-21 H NITROGEN (BEAKER) (test code = 354) CREATININE 1.17 mg/dL 0.57-1.25 Specimen slight ly (BEAKER) (test hemolyzed code = 358) GLUCOSE RANDOM 286 mg/dL 70-105 H (BEAKER) (test code = 652) CALCIUM (BEAKER) 8.3 mg/dL 8.4-10.2 L (test code = 697) EGFR (BEAKER) 72 Interpretatio n of eGFR (test code = mL/min/1.73 values Stage De scription 1092) sq m Result G1 Lucy l or high >=90 G2 Mildly decreased 60-89 G3a Mildl y to moderately 45-5 9 G3b Moderately to s everely 30-44 G4 Severl y decreased 15-29 G5 Kidney failure <15Reported eGF R is based on the CKD-EPI 2020 equation that d oes not use a race coefficientEsti mated GFR is not as accur ate as Creatinine Zuri warner in predicting glom erular filtration rate . Estimated GFR is not appl icable for dialysis patien ts [employer] Building [employer]er ID - [id number] 02:27:11 Test Item Value Reference Range Interpretation Comments PHOSPHORUS (BEAKER) 4.3 mg/dL 2.3-4.7 Specimen slightly (test code = 604) hemolyzed Concrete Building Assembler ID - [id number] 02:27:10 Test Item Value Reference Range Interpretation Comments MAGNESIUM (BEAKER) 2.2 mg/dL 1.6-2.6 Specimen slightly (test code = 627) hemolyzed Concrete Building Assembler ID - ADMINCBC W/PLT COUNT & AUTO [id number] 02:14:52 Test Item Value Reference Range Interpretation Comments WHITE BLOOD CELL COUNT (BEAKER) 13.1 K/ L 3.5-10.5 H (test code = 775) RED BLOOD CELL COUNT (BEAKER) 3.37 M/ L 4.63-6.08 L (test code = 761) HEMOGLOBIN (BEAKER) (test code = 9.5 GM/DL 13.7-17.5 L 410) HEMATOCRIT (BEAKER) (test code = 30.2 % 40.1-51.0 L 411) MEAN CORPUSCULAR VOLUME (BEAKER) 90 fL 79-92 (test code = 753) MEAN CORPUSCULAR HEMOGLOBIN 28.2 pg 25.7-32.2 (BEAKER) (test code = 751) MEAN CORPUSCULAR HEMOGLOBIN CONC 31.5 GM/DL 32.3-36.5 L (BEAKER) (test code = 752) RED CELL DISTRIBUTION WIDTH 14.4 % 11.6-14.4 (BEAKER) (test code = 412) PLATELET COUNT (BEAKER) (test 497 K/CU MM 150-450 H code = 756) MEAN PLATELET VOLUME (BEAKER) 10.2 fL 9.4-12.4 (test code = 754) NUCLEATED RED BLOOD CELLS 0 /100 WBC 0-0 (BEAKER) (test code = 413) NEUTROPHILS RELATIVE PERCENT 80 % (BEAKER) (test code = 429) LYMPHOCYTES RELATIVE PERCENT 7 % (BEAKER) (test code = 430) MONOCYTES RELATIVE PERCENT 8 % (BEAKER) (test code = 431) EOSINOPHILS RELATIVE PERCENT 4 % (BEAKER) (test code = 432) BASOPHILS RELATIVE PERCENT 0 % (BEAKER) (test code = 437) NEUTROPHILS ABSOLUTE COUNT 10.47 K/ L 1.78-5.38 H (BEAKER) (test code = 670) LYMPHOCYTES ABSOLUTE COUNT 0.94 K/ L 1.32-3.57 L (BEAKER) (test code = 414) MONOCYTES ABSOLUTE COUNT (BEAKER) 1.09 K/ L 0.30-0.82 H (test code = 415) EOSINOPHILS ABSOLUTE COUNT 0.52 K/ L 0.04-0.54 (BEAKER) (test code = 416) BASOPHILS ABSOLUTE COUNT (BEAKER) 0.05 K/ L 0.01-0.08 (test code = 417) IMMATURE GRANULOCYTES-RELATIVE 0.50 % 0.00-1.00 PERCENT (BEAKER) (test code = 2801) POCT-GLUCOSE [id number] 01:52:31 Test Item Value Reference Range Interpretation Comments POC-GLUCOSE METER 267 mg/dL 70-110 H : TESTED A T [facility] 6720 (BEAKER) (test code [facility], = 1538) 21718: Concrete Building Assembler/Techni marissa ID = [id number] for Torm is, Mariechella POCT-GLUCOSE [id number] 00:55:58 Test Item Value Reference Range Interpretation Comments POC-GLUCOSE METER 251 mg/dL 70-110 H : TESTED A T [facility] 6720 (BEAKER) (test code [facility], = 1538) 92384: Concrete Building Assembler/Techni marissa ID = [id number] for Torm is, Mariechella POCT-GLUCOSE [id number] 23:53:50 Test Item Value Reference Range Interpretation Comments POC-GLUCOSE METER 308 mg/dL 70-110 H : TESTED A T [facility] 6720 (BEAKER) (test code [facility], = 1538) 15888: Concrete Building Assembler/Techni marissa ID = [id number] for Torm is, Mariechella POCT-GLUCOSE [id number] 22:59:54 Test Item Value Reference Range Interpretation Comments POC-GLUCOSE METER 325 mg/dL 70-110 H : TESTED A T [facility] 6720 (BEAKER) (test code [place], = 1538) 38256: Concrete Building Assembler/Techni marissa ID = [id number] for Alfredo Virk [id number] 22:19:19 Test Item Value Reference Range Interpretation Comments PHOSPHORUS (BEAKER) (test code = 4.6 mg/dL 2.3-4.7 604) Concrete Building Assembler ID - ADMINBASIC METABOLIC [id number] 22:19:18 Test Item Value Reference Range Interpretation Comments SODIUM (BEAKER) 139 meq/L 136-145 (test code = 381) POTASSIUM 4.4 meq/L 3.5-5.1 (BEAKER) (test code = 379) CHLORIDE (BEAKER) 103 meq/L 98-107 (test code = 382) CO2 (BEAKER) 22 meq/L 22-29 (test code = 355) BLOOD UREA 30 mg/dL 7-21 H NITROGEN (BEAKER) (test code = 354) CREATININE 1.09 mg/dL 0.57-1.25 (BEAKER) (test code = 358) GLUCOSE RANDOM 301 mg/dL 70-105 H (BEAKER) (test code = 652) CALCIUM (BEAKER) 8.2 mg/dL 8.4-10.2 L (test code = 697) EGFR (BEAKER) 79 Interpretatio n of eGFR (test code = mL/min/1.73 values Stage De scription 1092) sq m Result G1 Lucy l or high >=90 G2 Mildly decreased 60-89 G3a Mildl y to moderately 45-5 9 G3b Moderately to s everely 30-44 G4 Sever ly decreased 15-29 G5 Kidney failure <15Repo rted eGFR is based on the CKD-EPI 2021 equation t hat does not use a race coefficientEsti mated GFR is not as accur ate as Creatinine Zuri hylton in predicting glom erular filtration rate . Estimated GFR is not appl icable for dialysis patien ts Concrete Building Assembler ID - [id number] 22:19:18 Test Item Value Reference Range Interpretation Comments MAGNESIUM (BEAKER) (test code = 2.0 mg/dL 1.6-2.6 627) Concrete Building Assembler ID - ADMINPOCT-GLUCOSE [id number] 21:54:18 Test Item Value Reference Range Interpretation Comments POC-GLUCOSE METER 277 mg/dL 70-110 H : TESTED A T [facility] 6720 (BEAKER) (test code [facility], = 1538) 56724: Concrete Building Assembler/Techni marissa ID = [id number] for Torm is, Mariechella POCT-GLUCOSE [id number] 20:51:40 Test Item Value Reference Range Interpretation Comments POC-GLUCOSE METER 277 mg/dL 70-110 H : TESTED A T [facility] 6720 (BEAKER) (test code [facility], = 1538) 03327: Concrete Building Assembler/Techni marissa ID = [id number] for Torm is, Mariechella POCT-GLUCOSE [id number] 19:45:27 Test Item Value Reference Range Interpretation Comments POC-GLUCOSE METER 284 mg/dL 70-110 H : TESTED A T [facility] 6720 (BEAKER) (test code [facility], = 1538) 23002: Concrete Building Assembler/Techni marissa ID = [id number] for Torm is, Mariechella POCT-GLUCOSE [id number] 18:44:23 Test Item Value Reference Range Interpretation Comments POC-GLUCOSE METER 345 mg/dL 70-110 H : TESTED A T [facility] 6720 (BEAKER) (test code [facility], = 1538) 53741: Concrete Building Assembler/Techni marissa ID = [id number] for Gasg onia, Madeline POCT-GLUCOSE [id number] 17:13:02 Test Item Value Reference Range Interpretation Comments POC-GLUCOSE METER 351 mg/dL 70-110 H : TESTED A T [facility] 6720 (BEAKER) (test code [facility], = 1538) 80415: Concrete Building Assembler/Techni marissa ID = [id number] for Gasg onia, Madeline URINALYSIS W/ [id number] 16:33:55 Test Item Value Reference Range Interpretation Comments COLOR (BEAKER) (test code = 470) Light Yellow CLARITY (BEAKER) (test code = Hazy 469) SPECIFIC GRAVITY UA (BEAKER) 1.009 1.001-1.035 (test code = 468) PH UA (BEAKER) (test code = 467) 6.0 5.0-8.0 PROTEIN UA (BEAKER) (test code = Negative Negative 464) GLUCOSE UA (BEAKER) (test code = >1000 mg/dL Negative A 365) KETONES UA (BEAKER) (test code = Trace Negative A 371) BILIRUBIN UA (BEAKER) (test code Negative Negative = 462) BLOOD UA (BEAKER) (test code = Negative Negative 461) NITRITE UA (BEAKER) (test code = Negative Negative 465) LEUKOCYTE ESTERASE UA (BEAKER) Small Negative A (test code = 466) UROBILINOGEN UA (BEAKER) (test 0.2 0.2-1.0 code = 463) RBC UA (BEAKER) (test code = 3 /HPF 519) WBC UA (BEAKER) (test code = 11 /HPF 520) HYALINE CASTS (BEAKER) (test 1 /LPF code = 514) YEAST (BEAKER) (test code = Many 1585) SOURCE(BEAKER) (test code = Urine, Chung 7455) Concrete Building Assembler ID - [auto]Concrete Building Assembler ID - techPOCT-GLUCOSE [id number] 16:31:48 Test Item Value Reference Range Interpretation Comments POC-GLUCOSE METER 352 mg/dL 70-110 H : TESTED A T [facility] 6720 (BEAKER) (test code [facility], = 1538) 50798: Concrete Building Assembler/Techni marissa ID = [id number] for Madeline Mehta [id number] 16:11:25 Test Item Value Reference Range Interpretation Comments PHOSPHORUS (BEAKER) (test code = 4.2 mg/dL 2.3-4.7 604) Concrete Building Assembler ID - [id number] 16:11:24 Test Item Value Reference Range Interpretation Comments MAGNESIUM (BEAKER) (test code = 2.0 mg/dL 1.6-2.6 627) Concrete Building Assembler ID - EMBASIC METABOLIC [id number] 16:11:23 Test Item Value Reference Range Interpretation Comments SODIUM (BEAKER) 136 meq/L 136-145 (test code = 381) POTASSIUM 4.2 meq/L 3.5-5.1 (BEAKER) (test code = 379) CHLORIDE (BEAKER) 102 meq/L 98-107 (test code = 382) CO2 (BEAKER) 25 meq/L 22-29 (test code = 355) BLOOD UREA 27 mg/dL 7-21 H NITROGEN (BEAKER) (test code = 354) CREATININE 1.10 mg/dL 0.57-1.25 (BEAKER) (test code = 358) GLUCOSE RANDOM 396 mg/dL 70-105 H (BEAKER) (test code = 652) CALCIUM (BEAKER) 8.1 mg/dL 8.4-10.2 L (test code = 697) EGFR (BEAKER) 78 Interpretatio n of eGFR (test code = mL/min/1.73 values Stage De scription 1092) sq m Result G1 Lucy l or high >=90 G2 Mildly decreased 60-89 G3a Mildl y to moderately 45-5 9 G3b Moderately to s everely 30-44 G4 Severl y decreased 15-29 G5 Kidney failure <15Reported eGF R is based on the CKD-EPI 2020 equation that d oes not use a race coefficientEsti mated GFR is not as accur ate as Creatinine Zuri warner in predicting glom erular filtration rate . Estimated GFR is not appl icable for dialysis patien ts Concrete Building Assembler ID - EMPOCT-GLUCOSE [id number] 15:08:20 Test Item Value Reference Range Interpretation Comments POC-GLUCOSE METER 348 mg/dL 70-110 H : TESTED A T [facility] 6720 (BEAKER) (test code [facility], = 1538) 56662: Concrete Building Assembler/Techni marissa ID = [id number] for Gasg onia, Madeline POCT-GLUCOSE [id number] 13:56:11 Test Item Value Reference Range Interpretation Comments POC-GLUCOSE METER 398 mg/dL 70-110 H : TESTED A T [facility] 6720 (BEAKER) (test code [facility], = 1538) 28225: Concrete Building Assembler/Techni marissa ID = [id number] for Gasg onia, Madeline POCT-GLUCOSE [id number] 13:14:15 Test Item Value Reference Range Interpretation Comments POC-GLUCOSE METER 390 mg/dL 70-110 H : TESTED A T [facility] 6720 (BEAKER) (test code = [facility], 1538) 66870: Concrete Building Assembler/Techni marissa ID = [id number] for Sis Perez XR CHEST 1 VIEW PORTABLE / [id number] 10:40:36 [facility] 1965 Sex: MXR CHEST 1 VIEW PORTABLE / BEDSIDEINDICATION: s/p trachCOMPARISON: Prior day's examFINDINGS: Portable frontal view of the chest. IMPRESSION:Support Lines: ET tube tip is 3 cm of the carlos. Right-sided sheath tipoverlies the SVC. Feeding tube descends below the diaphragm. Lungs and pleura: Central vascular congestion and left lower lobeairspace disease persists. No significant pneumothorax.Heart and mediastinum: Stable contours. Stable surgical changes.Additional findings: None. Electronically Signed By: Mavis Vinson02/17/2023 10:42 CDTWorkstation Name: [id number] 08:26:44 Test Item Value Reference Range Interpretation Comments POC-GLUCOSE METER 239 mg/dL 70-110 H : TESTED A T [facility] 6720 (SUNG) (test code = [place], 1538) 24130: Concrete Building Assembler/Techni marissa ID = [id number] for Sis Perez XR CHEST 1 VIEW PORTABLE / [id number] 08:15:37 [facility] : 1965 Sex: MXR CHEST 1 VIEW PORTABLE / BEDSIDEINDICATION: daily morningCOMPARISON: Prior day's examFINDINGS: Portable frontal view of the chest. IMPRESSION:Support Lines: ET tube tip is 3 cm of the carlos. Right-sided sheath tipoverlies the SVC. Feeding tube descends below the diaphragm. Lungs and pleura: Central vascular congestion and left lower lobeairspace disease persists. No significant pneumothorax.Heart and med iastinum: Stable contours. Stable surgical changes.Additional findings: None. Electronically Signed By: Mavis Vinson02/17/2023 08:17 CDTWorkstation Name: [id number] 07:30:25 Test Item Value Reference Range Interpretation Comments POC-GLUCOSE METER 197 mg/dL 70-110 H : TESTED A T [facility] 6720 (BEAKER) (test code = [facility], 1538) 36521: Concrete Building Assembler/Techni marissa ID = [id number] for Da luzma (contract), Aut her POCT-GLUCOSE [id number] 06:16:53 Test Item Value Reference Range Interpretation Comments POC-GLUCOSE METER 190 mg/dL 70-110 H : TESTED A T [facility] 6720 (BEAKER) (test code = [facility], 1538) 57403: Concrete Building Assembler/Techni marissa ID = [id number] for Da luzma (contract), Aut her POCT-GLUCOSE [id number] 05:18:31 Test Item Value Reference Range Interpretation Comments POC-GLUCOSE METER 172 mg/dL 70-110 H : TESTED A T [facility] 6720 (BEAKER) (test code = 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 - EMBASIC METABOLIC [id number] 04:34:43 Test Item Value Reference Range Interpretation Comments SODIUM (BEAKER) 140 meq/L 136-145 (test code = 381) POTASSIUM 4.8 meq/L 3.5-5.1 (BEAKER) (test code = 379) CHLORIDE (BEAKER) 103 meq/L 98-107 (test code = 382) CO2 (BEAKER) 27 meq/L 22-29 (test code = 355) BLOOD UREA 20 mg/dL 7-21 NITROGEN (BEAKER) (test code = 354) CREATININE 1.19 mg/dL 0.57-1.25 (BEAKER) (test code = 358) GLUCOSE RANDOM 230 mg/dL 70-105 H (BEAKER) (test code = 652) CALCIUM (BEAKER) 8.1 mg/dL 8.4-10.2 L (test code = 697) EGFR (BEAKER) 71 Interpretatio n of eGFR (test code = mL/min/1.73 values Stage De scription 1092) sq m Result G1 Lucy l or high >=90 G2 Mildly decreased 60-89 G3a Mildl y to moderately 45-5 9 G3b Moderately to s everely 30-44 G4 Severl y decreased 15-29 G5 Kidney failure <15Reported eGF R is based on the CKD-EPI 2020 equation that d oes not use a race coefficientEsti mated GFR is not as accur ate as Creatinine Zuri hylton in predicting glom erular filtration rate . Estimated GFR is not appl icable for dialysis patien ts Concrete Building Assembler ID - [id number] 04:34:43 Test Item Value Reference Range Interpretation Comments MAGNESIUM (BEAKER) (test code = 1.9 mg/dL 1.6-2.6 627) Concrete Building Assembler ID - EMPOCT-GLUCOSE [id number] 04:15:44 Test Item Value Reference Range Interpretation Comments POC-GLUCOSE METER 239 mg/dL 70-110 H : TESTED A T [facility] 6720 (BEAKER) (test code = [place], 1538) 89646: Concrete Building Assembler/Techni marissa ID = [id number] for Bradford segal (contract), Aut her PT/[id number] 04:13:54 Test Item Value Reference Range Interpretation Comments PROTIME (BEAKER) (test 15.5 seconds 11.9-14.2 H code = 759) INR (BEAKER) (test 1.26 See_Comment [Automat ed code = 370) message] The sy stem which generated this result transmitted reference range : <=5.90. The reference range was not used to interpret this result as normal/abnormal . PARTIAL THROMBOPLASTIN 29.2 seconds 22.5-36.0 TIME (BEAKER) (test code = 760) RECOMMENDED COUMADIN/WARFARIN INR THERAPY RANGESSTANDARD DOSE: 2.0 - 3.0 Includes: PROPHYLAXIS for venous thrombosis, systemic embolization; TREATMENT for venous thrombosis and/or pulmonary embolus.HIGH RISK: Target INR is 2.5-3.5 for patients with mechanical heart valves.CBC W/PLT COUNT & AUTO [id number] 04:02:12 Test Item Value Reference Range Interpretation Comments WHITE BLOOD CELL COUNT (BEAKER) 10.9 K/ L 3.5-10.5 H (test code = 775) RED BLOOD CELL COUNT (BEAKER) 3.19 M/ L 4.63-6.08 L (test code = 761) HEMOGLOBIN (BEAKER) (test code = 8.8 GM/DL 13.7-17.5 L 410) HEMATOCRIT (BEAKER) (test code = 28.8 % 40.1-51.0 L 411) MEAN CORPUSCULAR VOLUME (BEAKER) 90 fL 79-92 (test code = 753) MEAN CORPUSCULAR HEMOGLOBIN 27.6 pg 25.7-32.2 (BEAKER) (test code = 751) MEAN CORPUSCULAR HEMOGLOBIN CONC 30.6 GM/DL 32.3-36.5 L (BEAKER) (test code = 752) RED CELL DISTRIBUTION WIDTH 14.6 % 11.6-14.4 H (BEAKER) (test code = 412) PLATELET COUNT (BEAKER) (test 395 K/CU MM 150-450 code = 756) MEAN PLATELET VOLUME (BEAKER) 10.4 fL 9.4-12.4 (test code = 754) NUCLEATED RED BLOOD CELLS 0 /100 WBC 0-0 (BEAKER) (test code = 413) NEUTROPHILS RELATIVE PERCENT 64 % (BEAKER) (test code = 429) LYMPHOCYTES RELATIVE PERCENT 18 % (BEAKER) (test code = 430) MONOCYTES RELATIVE PERCENT 10 % (BEAKER) (test code = 431) EOSINOPHILS RELATIVE PERCENT 6 % (BEAKER) (test code = 432) BASOPHILS RELATIVE PERCENT 1 % (BEAKER) (test code = 437) NEUTROPHILS ABSOLUTE COUNT 6.94 K/ L 1.78-5.38 H (BEAKER) (test code = 670) LYMPHOCYTES ABSOLUTE COUNT 1.99 K/ L 1.32-3.57 (BEAKER) (test code = 414) MONOCYTES ABSOLUTE COUNT (BEAKER) 1.13 K/ L 0.30-0.82 H (test code = 415) EOSINOPHILS ABSOLUTE COUNT 0.63 K/ L 0.04-0.54 H (BEAKER) (test code = 416) BASOPHILS ABSOLUTE COUNT (BEAKER) 0.06 K/ L 0.01-0.08 (test code = 417) IMMATURE GRANULOCYTES-RELATIVE 0.90 % 0.00-1.00 PERCENT (BEAKER) (test code = 2801) KETONE, [id number] 03:44:06 Test Item Value Reference Range Interpretation Comments KETONES, BLOOD (BEAKER) (test code 0.1 mmol/L <0.4 = 1103) POCT-GLUCOSE [id number] 03:39:33 Test Item Value Reference Range Interpretation Comments POC-GLUCOSE METER 227 mg/dL 70-110 H : TESTED A T [facility] 6720 (BEAKER) (test code = [facility], 1538) 56903: Concrete Building Assembler/Techni marissa ID = [id number] for Da luzma (contract), Aut her POCT-GLUCOSE [id number] 02:17:34 Test Item Value Reference Range Interpretation Comments POC-GLUCOSE METER 141 mg/dL 70-110 H : TESTED A T [facility] 6720 (BEAKER) (test code = [facility], 1538) 00409: Concrete Building Assembler/Techni marissa ID = [id number] for Da luzma (contract), Aut her POCT-GLUCOSE [id number] 01:32:52 Test Item Value Reference Range Interpretation Comments POC-GLUCOSE METER 134 mg/dL 70-110 H : TESTED A T [facility] 6720 (BEAKER) (test code = [facility], 1538) 48453: Concrete Building Assembler/Techni marissa ID = [id number] for Da luzma (contract), Aut her POCT-GLUCOSE [id number] 00:10:41 Test Item Value Reference Range Interpretation Comments POC-GLUCOSE METER 166 mg/dL 70-110 H : TESTED A T [facility] 6720 (BEAKER) (test code = [facility], 1538) 25360: Concrete Building Assembler/Techni marissa ID = [id number] for Da luzma (contract), Aut her POCT-GLUCOSE [id number] 00:09:06 Test Item Value Reference Range Interpretation Comments POC-GLUCOSE METER 174 mg/dL 70-110 H : TESTED A T [facility] 6720 (BEAKER) (test code = [facility], [facility]8) 07696: Concrete Building Assembler/Techni marissa ID = [id number] for Da luzma (contract), Aut her POCT-GLUCOSE [id number] 22:15:05 Test Item Value Reference Range Interpretation Comments POC-GLUCOSE METER 203 mg/dL 70-110 H : TESTED A T [facility] 6720 (BEAKER) (test code = [facility], [facility]) 91216: Concrete Building Assembler/Techni marissa ID = [id number] for Da luzma (contract), Aut her POCT-GLUCOSE [id number] 22:13:50 Test Item Value Reference Range Interpretation Comments POC-GLUCOSE METER 188 mg/dL 70-110 H : TESTED A T [facility] 6720 (BEAKER) (test code = [facility], [facility]) 69107: Concrete Building Assembler/Techni marissa ID = [id number] for Da luzma (contract), Aut her POCT-GLUCOSE [id number] 20:09:28 Test Item Value Reference Range Interpretation Comments POC-GLUCOSE METER 205 mg/dL 70-110 H : TESTED A T [facility] 6720 (BEAKER) (test code = [facility], [facility]) 89051: Concrete Building Assembler/Techni marissa ID = [id number] for Da luzma (contract), Aut her POCT-GLUCOSE [id number] 18:55:03 Test Item Value Reference Range Interpretation Comments POC-GLUCOSE METER 230 mg/dL 70-110 H : TESTED A T [facility] 6720 (BEAKER) (test code = [facility], 1538) 80934: Concrete Building Assembler/Techni marissa ID = [id number] for YASMINE MANNELLA POCT-GLUCOSE [id number] 18:54:35 Test Item Value Reference Range Interpretation Comments POC-GLUCOSE METER 232 mg/dL 70-110 H : TESTED A T [facility] 6720 (BEAKER) (test code = [facility], 1538) 19739: Concrete Building Assembler/Techni marissa ID = [id number] for Henny mercer ([facility]), Nimoz POCT-GLUCOSE [id number] 17:16:20 Test Item Value Reference Range Interpretation Comments POC-GLUCOSE METER 237 mg/dL 70-110 H : TESTED A T [facility] 6720 (BEAKER) (test code = [facility], 1538) 16988: Concrete Building Assembler/Techni marissa ID = [id number] for Inman fredyara ([facility]), Nimoz POCT-GLUCOSE [id number] 16:14:06 Test Item Value Reference Range Interpretation Comments POC-GLUCOSE METER 232 mg/dL 70-110 H : TESTED A T [facility] 6720 (BEAKER) (test code = [facility], 1538) 49571: Concrete Building Assembler/Techni marissa ID = [id number] for FRANCISCO MANN [id number] 16:05:16 Test Item Value Reference Range Interpretation Comments MAGNESIUM (BEAKER) (test code = 2.0 mg/dL 1.6-2.6 627) Concrete Building Assembler ID - [id number] 16:05:16 Test Item Value Reference Range Interpretation Comments PHOSPHORUS (BEAKER) (test code = 4.0 mg/dL 2.3-4.7 604) Concrete Building Assembler ID - ADMINBASIC METABOLIC [id number] 16:05:15 Test Item Value Reference Range Interpretation Comments SODIUM (BEAKER) 141 meq/L 136-145 (test code = 381) POTASSIUM 4.2 meq/L 3.5-5.1 (BEAKER) (test code = 379) CHLORIDE (BEAKER) 104 meq/L 98-107 (test code = 382) CO2 (BEAKER) 27 meq/L 22-29 (test code = 355) BLOOD UREA 19 mg/dL 7-21 NITROGEN (BEAKER) (test code = 354) CREATININE 1.07 mg/dL 0.57-1.25 (BEAKER) (test code = 358) GLUCOSE RANDOM 269 mg/dL 70-105 H (BEAKER) (test code = 652) CALCIUM (BEAKER) 8.2 mg/dL 8.4-10.2 L (test code = 697) EGFR (BEAKER) 80 Interpretatio n of eGFR (test code = mL/min/1.73 values Stage De scription 1092) sq m Result G1 Lucy l or high >=90 G2 Mildly decreased 60-89 G3a Mildl y to moderately 45- 59 G3b Moderately to s everely 30-44 G4 Severl y decreased 15-29 G5 Kidney failure <15Reported eGF R is based on the CKD-EPI 2020 equation that d oes not use a race coefficientEsti mated GFR is not as accur ate as Creatinine Zuri warner in predicting glom erular filtration rate . Estimated GFR is not appl icable for dialysis patien ts Concrete Building Assembler ID - ADMINPOCT-GLUCOSE [id number] 15:43:52 Test Item Value Reference Range Interpretation Comments POC-GLUCOSE METER 252 mg/dL 70-110 H : TESTED A T [facility] 6720 (BEAKER) (test code = [facility], [facility]) [id number]: Concrete Building Assembler/Techni marissa ID = [id number] for Inman nesara ([facility]), Nimoz POCT-GLUCOSE [id number] 14:17:33 Test Item Value Reference Range Interpretation Comments POC-GLUCOSE METER 256 mg/dL 70-110 H : TESTED A T [facility] 6720 (BEAKER) (test code = [facility], 1538) [id number]: Concrete Building Assembler/Techni marissa ID = [id number] for FRANCISCO MANN POCT-GLUCOSE [id number] 13:22:19 Test Item Value Reference Range Interpretation Comments POC-GLUCOSE METER 236 mg/dL 70-110 H : TESTED A T [facility] 6720 (BEAKER) (test code = [facility], 1538) [id number]: Concrete Building Assembler/Techni marissa ID = [id number] for Inman nesara ([facility]), Nimoz POCT-GLUCOSE [id number] 12:35:14 Test Item Value Reference Range Interpretation Comments POC-GLUCOSE METER 218 mg/dL 70-110 H : TESTED A T [facility] 6720 (BEAKER) (test code = [facility], 1538) [id number]: Concrete Building Assembler/Techni marissa ID = [id number] for Henny mercer ([facility]), [place] POCT-GLUCOSE [id number] 11:28:12 Test Item Value Reference Range Interpretation Comments POC-GLUCOSE METER 229 mg/dL 70-110 H : TESTED A T [facility] 6720 (BEAKER) (test code = NABOR Guardado [facility], 1538) [id number]: Concrete Building Assembler/Techni marissa ID = [id number] for Henny mercer ([facility]), Nimoz POCT-GLUCOSE [id number] 10:14:28 Test Item Value Reference Range Interpretation Comments POC-GLUCOSE METER 146 mg/dL 70-110 H : TESTED A T [facility] 6720 (BEAKER) (test code = [facility], 1538) 91135: Concrete Building Assembler/Techni marissa ID = [id number] for FRANCISCO MANN XR CHEST 1 VIEW PORTABLE / [id number] 09:36:27 [facility]O GRIGGS : 1965 Sex: MXR CHEST 1 VIEW PORTABLE / BEDSIDEINDICATION: daily morningCOMPARISON: Prior day's examFINDINGS: Portable frontal view of the chest. IMPRESSION:Support Lines: ET tube tip is 3 cm of the carlos. Right-sided sheath tipoverlies the SVC. Feeding tube descends below the diaphragm. Lungs and pleura: Central vascular congestion and left lower lobeairspace disease persists. No significant pneumothorax.Heart and med iastinum: Stable contours. Stable surgical changes.Additional findings: None. Electronically Signed By: Mavis Vinson02/16/2023 09:38 CDTWorkstation Name: [id number] 09:00:07 Test Item Value Reference Range Interpretation Comments POC-GLUCOSE METER 173 mg/dL 70-110 H : TESTED A T [facility] 6720 (BEAKER) (test code = [facility], 1538) 16543: Concrete Building Assembler/Techni marissa ID = [id number] for Henny mercer ([facility]), Nimoz POCT-GLUCOSE [id number] 08:09:04 Test Item Value Reference Range Interpretation Comments POC-GLUCOSE METER 160 mg/dL 70-110 H : TESTED A T [facility] 6720 (BEAKER) (test code = [facility], 1538) 43019: Concrete Building Assembler/Techni marissa ID = [id number] for FRANCISCO MANN POCT-GLUCOSE [id number] 07:28:08 Test Item Value Reference Range Interpretation Comments POC-GLUCOSE METER 153 mg/dL 70-110 H : TESTED A T [facility] 6720 (BEAKER) (test code = [facility], 1538) 27602: Concrete Building Assembler/Techni marissa ID = [id number] for Da luzma (contract), Aut her POCT-GLUCOSE [id number] 06:17:04 Test Item Value Reference Range Interpretation Comments POC-GLUCOSE METER 177 mg/dL 70-110 H : TESTED A T [facility] 6720 (BEAKER) (test code = [facility], 1538) 56993: Concrete Building Assembler/Techni marissa ID = [id number] for Da luzma (contract), Aut her POCT-GLUCOSE [id number] 06:14:24 Test Item Value Reference Range Interpretation Comments POC-GLUCOSE METER 167 mg/dL 70-110 H : TESTED A T [facility] 6720 (BEAKER) (test code = [facility], 1538) 52197: Concrete Building Assembler/Techni marissa ID = [id number] for Da luzma (contract), Aut her POCT-GLUCOSE [id number] 03:56:36 Test Item Value Reference Range Interpretation Comments POC-GLUCOSE METER 203 mg/dL 70-110 H : TESTED A T [facility] 6720 (BEAKER) (test code = [facility], 1538) 39284: Concrete Building Assembler/Techni marissa ID = [id number] for Da luzma (contract), Aut her [id number] 03:27:24 Test Item Value Reference Range Interpretation Comments MAGNESIUM (BEAKER) (test code = 2.1 mg/dL 1.6-2.6 627) Concrete Building Assembler ID - [id number] 03:27:24 Test Item Value Reference Range Interpretation Comments PHOSPHORUS (BEAKER) (test code = 4.1 mg/dL 2.3-4.7 604) Concrete Building Assembler ID - ADMINCOMPREHENSIVE METABOLIC [id number] 03:27:23 Test Item Value Reference Range Interpretation Comments TOTAL PROTEIN 6.8 gm/dL 6.0-8.3 (BEAKER) (test code = 770) ALBUMIN (BEAKER) 2.6 g/dL 3.5-5.0 L (test code = 1145) ALKALINE 241 U/L 40-150 H PHOSPHATASE (BEAKER) (test code = 346) BILIRUBIN TOTAL 0.4 mg/dL 0.2-1.2 (BEAKER) (test code = 377) SODIUM (BEAKER) 138 meq/L 136-145 (test code = 381) POTASSIUM (BEAKER) 4.4 meq/L 3.5-5.1 (test code = 379) CHLORIDE (BEAKER) 105 meq/L 98-107 (test code = 382) CO2 (BEAKER) (test 21 meq/L 22-29 L code = 355) BLOOD UREA 17 mg/dL 7-21 NITROGEN (BEAKER) (test code = 354) CREATININE 0.96 mg/dL 0.57-1.25 (BEAKER) (test code = 358) GLUCOSE RANDOM 231 mg/dL 70-105 H (BEAKER) (test code = 652) CALCIUM (BEAKER) 8.2 mg/dL 8.4-10.2 L (test code = 697) AST (SGOT) 30 U/L 5-34 (BEAKER) (test code = 353) ALT (SGPT) 27 U/L 6-55 (BEAKER) (test code = 347) EGFR (BEAKER) 92 Interpretatio n of eGFR (test code = 1092) mL/min/1.[address] age Description sq m Result G1 Lucy l or high >=90 G2 Mildly decreased 60-89 G3a Mildl y to moderately 45-5 9 G3b Moderately to s everely 30-44 G4 Severl y decreased 15-29 G5 Kidney failure <15Reported eGF R is based on the CKD-EPI 2020 equation that d oes not use a race coefficientEsti mated GFR is not as accur ate as Creatinine Zuri hylton in predicting glom erular filtration rate . Estimated GFR is not appl icable for dialysis patien ts Concrete Building Assembler ID - ADMINCBC W/PLT COUNT & AUTO [id number] 03:06:00 Test Item Value Reference Range Interpretation Comments WHITE BLOOD CELL COUNT (BEAKER) 9.3 K/ L 3.5-10.5 (test code = 775) RED BLOOD CELL COUNT (BEAKER) 3.99 M/ L 4.63-6.08 L (test code = 761) HEMOGLOBIN (BEAKER) (test code = 11.3 GM/DL 13.7-17.5 L 410) HEMATOCRIT (BEAKER) (test code = 36.4 % 40.1-51.0 L 411) MEAN CORPUSCULAR VOLUME (BEAKER) 91 fL 79-92 (test code = 753) MEAN CORPUSCULAR HEMOGLOBIN 28.3 pg 25.7-32.2 (BEAKER) (test code = 751) MEAN CORPUSCULAR HEMOGLOBIN CONC 31.0 GM/DL 32.3-36.5 L (BEAKER) (test code = 752) RED CELL DISTRIBUTION WIDTH 14.8 % 11.6-14.4 H (BEAKER) (test code = 412) PLATELET COUNT (BEAKER) (test 297 K/CU MM 150-450 code = 756) MEAN PLATELET VOLUME (BEAKER) 10.2 fL 9.4-12.4 (test code = 754) NUCLEATED RED BLOOD CELLS 0 /100 WBC 0-0 (BEAKER) (test code = 413) NEUTROPHILS RELATIVE PERCENT 71 % (BEAKER) (test code = 429) LYMPHOCYTES RELATIVE PERCENT 11 % (BEAKER) (test code = 430) MONOCYTES RELATIVE PERCENT 9 % (BEAKER) (test code = 431) EOSINOPHILS RELATIVE PERCENT 8 % (BEAKER) (test code = 432) BASOPHILS RELATIVE PERCENT 1 % (BEAKER) (test code = 437) NEUTROPHILS ABSOLUTE COUNT 6.61 K/ L 1.78-5.38 H (BEAKER) (test code = 670) LYMPHOCYTES ABSOLUTE COUNT 1.02 K/ L 1.32-3.57 L (BEAKER) (test code = 414) MONOCYTES ABSOLUTE COUNT (BEAKER) 0.85 K/ L 0.30-0.82 H (test code = 415) EOSINOPHILS ABSOLUTE COUNT 0.71 K/ L 0.04-0.54 H (BEAKER) (test code = 416) BASOPHILS ABSOLUTE COUNT (BEAKER) 0.07 K/ L 0.01-0.08 (test code = 417) IMMATURE GRANULOCYTES-RELATIVE 0.60 % 0.00-1.00 PERCENT (BEAKER) (test code = 2801) POCT-GLUCOSE [id number] 02:55:50 Test Item Value Reference Range Interpretation Comments POC-GLUCOSE METER 227 mg/dL 70-110 H : TESTED A T [facility] 6720 (BEAKER) (test code = [facility], 1538) 13188: Concrete Building Assembler/Techni marissa ID = [id number] for Da luzma (contract), Aut her POCT-GLUCOSE [id number] 01:46:48 Test Item Value Reference Range Interpretation Comments POC-GLUCOSE METER 213 mg/dL 70-110 H : TESTED A T [facility] 6720 (BEAKER) (test code = [facility], 1538) 98305: Concrete Building Assembler/Techni marissa ID = [id number] for Da luzma (contract), Aut her POCT-GLUCOSE [id number] 00:39:43 Test Item Value Reference Range Interpretation Comments POC-GLUCOSE METER 219 mg/dL 70-110 H : TESTED A T [facility] 6720 (BEAKER) (test code = [facility], 1538) 18276: Concrete Building Assembler/Techni marissa ID = [id number] for Da luzma (contract), Aut her POCT-GLUCOSE [id number] 23:37:44 Test Item Value Reference Range Interpretation Comments POC-GLUCOSE METER 145 mg/dL 70-110 H : TESTED A T [facility] 6720 (BEAKER) (test code = [facility], 1538) 34865: Concrete Building Assembler/Techni marissa ID = [id number] for Da luzma (contract), Aut her POCT-GLUCOSE [id number] 22:23:06 Test Item Value Reference Range Interpretation Comments POC-GLUCOSE METER 157 mg/dL 70-110 H : TESTED A T [facility] 6720 (BEAKER) (test code = [facility], 1538) 62414: Concrete Building Assembler/Techni marissa ID = [id number] for Da luzma (contract), Aut her POCT-GLUCOSE [id number] 21:26:32 Test Item Value Reference Range Interpretation Comments POC-GLUCOSE METER 159 mg/dL 70-110 H : TESTED A T [facility] 6720 (BEAKER) (test code = [facility], 1538) 84139: Concrete Building Assembler/Techni marissa ID = [id number] for Da luzma (contract), Aut her POCT-GLUCOSE [id number] 20:20:32 Test Item Value Reference Range Interpretation Comments POC-GLUCOSE METER 162 mg/dL 70-110 H : TESTED A T [facility] 6720 (BEAKER) (test code = [facility], 153) 17853: Concrete Building Assembler/Techni marissa ID = [id number] for Da luzma (contract), Aut her POCT-GLUCOSE [id number] 19:28:01 Test Item Value Reference Range Interpretation Comments POC-GLUCOSE METER 166 mg/dL 70-110 H : TESTED A T [facility] 6720 (BEAKER) (test code = [facility], 1538) 29842: Concrete Building Assembler/Techni marissa ID = [id number] for Da luzma (contract), Aut her POCT-GLUCOSE [id number] 17:17:43 Test Item Value Reference Range Interpretation Comments POC-GLUCOSE METER 168 mg/dL 70-110 H : TESTED A T [facility] 6720 (BEAKER) (test code = [facility], 153) 66769: Concrete Building Assembler/Techni marissa ID = [id number] for Rhonda Machuca POCT-GLUCOSE [id number] 15:27:05 Test Item Value Reference Range Interpretation Comments POC-GLUCOSE METER 169 mg/dL 70-110 H : TESTED A T [facility] 6720 (BEAKER) (test code = [facility], 1538) 05946: Concrete Building Assembler/Techni marissa ID = [id number] for Bowen Machucaen POCT-GLUCOSE [id number] 13:52:23 Test Item Value Reference Range Interpretation Comments POC-GLUCOSE METER 171 mg/dL 70-110 H : TESTED A T [facility] 6720 (BEAKER) (test code = [facility], 1538) 26807: Concrete Building Assembler/Techni marissa ID = [id number] for Rhonda Machuca POCT-GLUCOSE [id number] 12:34:13 Test Item Value Reference Range Interpretation Comments POC-GLUCOSE METER 175 mg/dL 70-110 H : TESTED A T [facility] 6720 (BEAKER) (test code = [facility], 1538) 14285: Concrete Building Assembler/Techni marissa ID = [id number] for Rhonda Machuca POCT-GLUCOSE [id number] 11:06:43 Test Item Value Reference Range Interpretation Comments POC-GLUCOSE METER 192 mg/dL 70-110 H : TESTED A T [facility] 6720 (BEAKER) (test code = [facility], 1538) 38162: Concrete Building Assembler/Techni marissa ID = [id number] for Rhonda Machuca POCT-GLUCOSE [id number] 10:22:19 Test Item Value Reference Range Interpretation Comments POC-GLUCOSE METER 227 mg/dL 70-110 H : TESTED A T [facility] 6720 (BEAKER) (test code = [facility], 1538) 64236: Concrete Building Assembler/Techni marissa ID = [id number] for Rhonda Machuca POCT-GLUCOSE [id number] 08:58:37 Test Item Value Reference Range Interpretation Comments POC-GLUCOSE METER 226 mg/dL 70-110 H : TESTED A T [facility] 6720 (BEAKER) (test code = [facility], [facility]8) 26953: Concrete Building Assembler/Techni marissa ID = [id number] for Rhonda Machuca XR CHEST 1 VIEW PORTABLE / [id number] 08:52:18 [facility] 1965 Sex: MXR CHEST 1 VIEW PORTABLE / BEDSIDEINDICATION: daily morningCOMPARISON: Prior day's examFINDINGS: Portable frontal view of the chest. IMPRESSION:Support Lines: ET tube tip is 3 cm of the carlos. Right-sided sheath tipoverlies the SVC. Feeding tube descends below the diaphragm. Lungs and pleura: Central vascular congestion and left lower lobeairspace disease persists. No significant pneumothorax.Heart and med iastinum: Stable contours. Stable surgical changes.Additional findings: None. Electronically Signed By: Mavis Vinson02/15/2023 08:54 CDTWorkstation Name: [id number] 08:25:57 Test Item Value Reference Range Interpretation Comments POC-GLUCOSE METER 225 mg/dL 70-110 H : TESTED A T [facility] 6720 (BEAKER) (test code [facility], = 1538) 74380: Concrete Building Assembler/Techni marissa ID = [id number] for EDNA MARU (V), [facility] POCT-GLUCOSE [id number] 05:47:07 Test Item Value Reference Range Interpretation Comments POC-GLUCOSE METER 255 mg/dL 70-110 H : TESTED A T [facility] 6720 (BEAKER) (test code = [facility], 1538) 33003: Concrete Building Assembler/Techni marissa ID = [id number] for Ad ams, Kimetra [id number] 04:55:48 Test Item Value Reference Range Interpretation Comments MAGNESIUM (BEAKER) (test code = 2.1 mg/dL 1.6-2.6 627) Concrete Building Assembler ID - [id number] 04:55:48 Test Item Value Reference Range Interpretation Comments PHOSPHORUS (BEAKER) (test code = 4.2 mg/dL 2.3-4.7 604) Concrete Building Assembler ID - MARCOCOMPREHENSIVE METABOLIC [id number] 04:55:47 Test Item Value Reference Range Interpretation Comments TOTAL PROTEIN 6.1 gm/dL 6.0-8.3 (BEAKER) (test code = 770) ALBUMIN (BEAKER) 2.4 g/dL 3.5-5.0 L (test code = 1145) ALKALINE 215 U/L 40-150 H PHOSPHATASE (BEAKER) (test code = 346) BILIRUBIN TOTAL 0.5 mg/dL 0.2-1.2 (BEAKER) (test code = 377) SODIUM (BEAKER) 142 meq/L 136-145 (test code = 381) POTASSIUM (BEAKER) 4.0 meq/L 3.5-5.1 (test code = 379) CHLORIDE (BEAKER) 106 meq/L 98-107 (test code = 382) CO2 (BEAKER) (test 28 meq/L 22-29 code = 355) BLOOD UREA 14 mg/dL 7-21 NITROGEN (BEAKER) (test code = 354) CREATININE 0.94 mg/dL 0.57-1.25 (BEAKER) (test code = 358) GLUCOSE RANDOM 238 mg/dL 70-105 H (BEAKER) (test code = 652) CALCIUM (BEAKER) 8.5 mg/dL 8.4-10.2 (test code = 697) AST (SGOT) 30 U/L 5-34 (BEAKER) (test code = 353) ALT (SGPT) 30 U/L 6-55 (BEAKER) (test code = 347) EGFR (BEAKER) 94 Interpretatio n of eGFR (test code = 1092) mL/min/1.[address] age Description sq m Result G1 Lucy l or high >=90 G2 Mildly decreased 60-89 G3a Mildl y to moderately 45-5 9 G3b Moderately to s everely 30-44 G4 Severl y decreased 15-29 G5 Kidney failure <15Reported eGF R is based on the CKD-EPI 2021 equation that d oes not use a race coefficientEsti mated GFR is not as accur ate as Creatinine Zuri hylton in predicting glom erular filtration rate . Estimated GFR is not appl icable for dialysis patien ts Concrete Building Assembler ID - MARCOCBC W/PLT COUNT & AUTO [id number] 04:35:37 Test Item Value Reference Range Interpretation Comments WHITE BLOOD CELL COUNT (BEAKER) 9.4 K/ L 3.5-10.5 (test code = 775) RED BLOOD CELL COUNT (BEAKER) 3.00 M/ L 4.63-6.08 L (test code = 761) HEMOGLOBIN (BEAKER) (test code = 8.5 GM/DL 13.7-17.5 L 410) HEMATOCRIT (BEAKER) (test code = 27.4 % 40.1-51.0 L 411) MEAN CORPUSCULAR VOLUME (BEAKER) 91 fL 79-92 (test code = 753) MEAN CORPUSCULAR HEMOGLOBIN 28.3 pg 25.7-32.2 (BEAKER) (test code = 751) MEAN CORPUSCULAR HEMOGLOBIN CONC 31.0 GM/DL 32.3-36.5 L (BEAKER) (test code = 752) RED CELL DISTRIBUTION WIDTH 14.9 % 11.6-14.4 H (BEAKER) (test code = 412) PLATELET COUNT (BEAKER) (test 262 K/CU MM 150-450 code = 756) MEAN PLATELET VOLUME (BEAKER) 10.7 fL 9.4-12.4 (test code = 754) NUCLEATED RED BLOOD CELLS 0 /100 WBC 0-0 (BEAKER) (test code = 413) NEUTROPHILS RELATIVE PERCENT 65 % (BEAKER) (test code = 429) LYMPHOCYTES RELATIVE PERCENT 12 % (BEAKER) (test code = 430) MONOCYTES RELATIVE PERCENT 11 % (BEAKER) (test code = 431) EOSINOPHILS RELATIVE PERCENT 11 % (BEAKER) (test code = 432) BASOPHILS RELATIVE PERCENT 1 % (BEAKER) (test code = 437) NEUTROPHILS ABSOLUTE COUNT 6.13 K/ L 1.78-5.38 H (BEAKER) (test code = 670) LYMPHOCYTES ABSOLUTE COUNT 1.15 K/ L 1.32-3.57 L (BEAKER) (test code = 414) MONOCYTES ABSOLUTE COUNT (BEAKER) 1.01 K/ L 0.30-0.82 H (test code = 415) EOSINOPHILS ABSOLUTE COUNT 1.05 K/ L 0.04-0.54 H (BEAKER) (test code = 416) BASOPHILS ABSOLUTE COUNT (BEAKER) 0.05 K/ L 0.01-0.08 (test code = 417) IMMATURE GRANULOCYTES-RELATIVE 0.50 % 0.00-1.00 PERCENT (BEAKER) (test code = 2801) POCT-GLUCOSE [id number] 04:30:27 Test Item Value Reference Range Interpretation Comments POC-GLUCOSE METER 211 mg/dL 70-110 H : TESTED A T [facility] 6720 (BEAKER) (test code [facility], = 1538) 81522: Concrete Building Assembler/Techni marissa ID = [id number] for EDNA MARU (V), MARIANINA POCT-GLUCOSE [id number] 03:18:51 Test Item Value Reference Range Interpretation Comments POC-GLUCOSE METER 185 mg/dL 70-110 H : TESTED A T [facility] 6720 (BEAKER) (test code = [facility], 1538) 23478: Concrete Building Assembler/Techni marissa ID = [id number] for Ad ams, Kimetra POCT-GLUCOSE [id number] 02:07:33 Test Item Value Reference Range Interpretation Comments POC-GLUCOSE METER 166 mg/dL 70-110 H : TESTED A T [facility] 6720 (BEAKER) (test code [facility], = 1538) 60309: Concrete Building Assembler/Techni marissa ID = [id number] for EDNA MARU (V), MARIANINA POCT-GLUCOSE [id number] 01:34:01 Test Item Value Reference Range Interpretation Comments POC-GLUCOSE METER 132 mg/dL 70-110 H : TESTED A T [facility] 6720 (BEAKER) (test code [facility], = 1538) 90055: Concrete Building Assembler/Techni marissa ID = [id number] for EDNA MARU (V), MARIANINA POCT-GLUCOSE [id number] 00:27:33 Test Item Value Reference Range Interpretation Comments POC-GLUCOSE METER 154 mg/dL 70-110 H : TESTED A T [facility] 6720 (BEAKER) (test code = [facility], 1538) 89347: Concrete Building Assembler/Techni marissa ID = [id number] for Ad ams, Kimetra POCT-GLUCOSE [id number] 22:47:40 Test Item Value Reference Range Interpretation Comments POC-GLUCOSE METER 170 mg/dL 70-110 H : TESTED A T [facility] 6720 (BEAKER) (test code [facility], = 1538) 81597: Concrete Building Assembler/Techni marissa ID = [id number] for EDNA MARU (V), MARIANINA POCT-GLUCOSE [id number] 21:15:42 Test Item Value Reference Range Interpretation Comments POC-GLUCOSE METER 175 mg/dL 70-110 H : TESTED A T [facility] 6720 (BEAKER) (test code [facility], = 1538) 38543: Concrete Building Assembler/Techni marissa ID = [id number] for EDNA MAHONEY (V), MERCYNA POCT-GLUCOSE [id number] 19:22:07 Test Item Value Reference Range Interpretation Comments POC-GLUCOSE METER 182 mg/dL 70-110 H : TESTED A T [facility] 6720 (BEAKER) (test code = [facility], 1538) 64295: Concrete Building Assembler/Techni marissa ID = [id number] for Bu ggs (contract), Gaf fery POCT-GLUCOSE [id number] 18:16:29 Test Item Value Reference Range Interpretation Comments POC-GLUCOSE METER 213 mg/dL 70-110 H : TESTED A T [facility] 6720 (BEAKER) (test code = [facility], 1538) 77794: Concrete Building Assembler/Techni marissa ID = [id number] for Bu ggs (contract), Gaf fery POCT-GLUCOSE [id number] 17:05:56 Test Item Value Reference Range Interpretation Comments POC-GLUCOSE METER 213 mg/dL 70-110 H : TESTED A T [facility] 6720 (BEAKER) (test code = [facility], 1538) 37668: Concrete Building Assembler/Techni marissa ID = [id number] for Bu ggs (contract), Gaf fery POCT-GLUCOSE [id number] 15:13:11 Test Item Value Reference Range Interpretation Comments POC-GLUCOSE METER 254 mg/dL 70-110 H : TESTED A T [facility] 6720 (BEAKER) (test code = [facility], 1538) 25130: Concrete Building Assembler/Techni marissa ID = [id number] for Bu ggs (contract), Gaf fery POCT-GLUCOSE [id number] 13:37:49 Test Item Value Reference Range Interpretation Comments POC-GLUCOSE METER 244 mg/dL 70-110 H : TESTED A T [facility] 6720 (BEAKER) (test code = [facility], 1538) 77396: Concrete Building Assembler/Techni marissa ID = [id number] for Bu ggs (contract), Gaf fery POCT-GLUCOSE [id number] 12:24:25 Test Item Value Reference Range Interpretation Comments POC-GLUCOSE METER 249 mg/dL 70-110 H : TESTED A T [facility] 6720 (BEAKER) (test code = [facility], 1538) 08029: Concrete Building Assembler/Techni marissa ID = [id number] for Bu ggs (contract), Gaf fery POCT-GLUCOSE [id number] 11:21:35 Test Item Value Reference Range Interpretation Comments POC-GLUCOSE METER 251 mg/dL 70-110 H : TESTED A T [facility] 6720 (BEAKER) (test code = [facility], 1538) 42779: Concrete Building Assembler/Techni marissa ID = [id number] for Bu ggs (contract), Gaf fery POCT-GLUCOSE [id number] 10:16:24 Test Item Value Reference Range Interpretation Comments POC-GLUCOSE METER 257 mg/dL 70-110 H : TESTED A T [facility] 6720 (BEAKER) (test code = [facility], 1538) 93617: Concrete Building Assembler/Techni marissa ID = [id number] for Bu ggs (contract), Gaf fery XR CHEST 1 VIEW PORTABLE / [id number] 08:20:26 [facility] : 1965 Sex: MXR CHEST 1 VIEW PORTABLE / BEDSIDEINDICATION: daily morningCOMPARISON: Prior day's examFINDINGS: Portable frontal view of the chest. IMPRESSION:Support Lines: ET tube tip is two 7 m of the carlos. Right-sided centralcatheter tip overlies SVC. Feeding tube descends below the diaphragm. Lungs and pleura: Central vascular congestion and left lower lobeairspace disease persists. No significant pneumothorax.Heart and mediastinum: Stable contours. Stable surgical changes.Additional findings: None.ElectronicallySigned By: Mavis Vinson02/14/2023 08:22 CDTWorkstation Name: [id number] 07:32:50 Test Item Value Reference Range Interpretation Comments POC-GLUCOSE METER 301 mg/dL 70-110 H : TESTED A T [facility] 6720 (BEAKER) (test code = [facility], 1538) 61314: Concrete Building Assembler/Techni marissa ID = [id number] for RABIA DURAN POCT-GLUCOSE [id number] 06:21:21 Test Item Value Reference Range Interpretation Comments POC-GLUCOSE METER 303 mg/dL 70-110 H : TESTED A T [facility] 6720 (BEAKER) (test code = [facility], 1538) 37880: Concrete Building Assembler/Techni marissa ID = [id number] for Jessica Paredes [id number] 05:24:47 Test Item Value Reference Range Interpretation Comments PHOSPHORUS (BEAKER) (test code = 4.0 mg/dL 2.3-4.7 604) Concrete Building Assembler ID - ADMINCOMPREHENSIVE METABOLIC [id number] 05:24:46 Test Item Value Reference Range Interpretation Comments TOTAL PROTEIN 6.2 gm/dL 6.0-8.3 (BEAKER) (test code = 770) ALBUMIN (BEAKER) 2.3 g/dL 3.5-5.0 L (test code = 1145) ALKALINE 212 U/L 40-150 H PHOSPHATASE (BEAKER) (test code = 346) BILIRUBIN TOTAL 0.6 mg/dL 0.2-1.2 (BEAKER) (test code = 377) SODIUM (BEAKER) 137 meq/L 136-145 (test code = 381) POTASSIUM (BEAKER) 4.9 meq/L 3.5-5.1 (test code = 379) CHLORIDE (BEAKER) 105 meq/L 98-107 (test code = 382) CO2 (BEAKER) (test 20 meq/L 22-29 L code = 355) BLOOD UREA 18 mg/dL 7-21 NITROGEN (BEAKER) (test code = 354) CREATININE 1.13 mg/dL 0.57-1.25 (BEAKER) (test code = 358) GLUCOSE RANDOM 370 mg/dL 70-105 H (BEAKER) (test code = 652) CALCIUM (BEAKER) 8.0 mg/dL 8.4-10.2 L (test code = 697) AST (SGOT) 43 U/L 5-34 H (BEAKER) (test code = 353) ALT (SGPT) 33 U/L 6-55 (BEAKER) (test code = 347) EGFR (BEAKER) 75 Interpretatio n of eGFR (test code = 1092) mL/min/1.[address] age Description sq m Result G1 Lucy l or high >=90 G2 Mildly decreased 60-89 G3a Mildl y to moderately 45-5 9 G3b Moderately to s everely 30-44 G4 Severl y decreased 15-29 G5 Kidney failure <15Reported eGF R is based on the CKD-EPI 2020 equation that d oes not use a race coefficientEsti mated GFR is not as accur ate as Creatinine Zuri warner in predicting glom erular filtration rate . Estimated GFR is not appl icable for dialysis patien ts [employer]er ID - [id number] 05:24:46 Test Item Value Reference Range Interpretation Comments MAGNESIUM (BEAKER) (test code = 2.3 mg/dL 1.6-2.6 627) [employer] As[employer]er ID - ADMINCBC W/PLT COUNT & AUTO [id number] 05:02:07 Test Item Value Reference Range Interpretation Comments WHITE BLOOD CELL COUNT (BEAKER) 9.7 K/ L 3.5-10.5 (test code = 775) RED BLOOD CELL COUNT (BEAKER) 2.96 M/ L 4.63-6.08 L (test code = 761) HEMOGLOBIN (BEAKER) (test code = 8.4 GM/DL 13.7-17.5 L 410) HEMATOCRIT (BEAKER) (test code = 27.5 % 40.1-51.0 L 411) MEAN CORPUSCULAR VOLUME (BEAKER) 93 fL 79-92 H (test code = 753) MEAN CORPUSCULAR HEMOGLOBIN 28.4 pg 25.7-32.2 (BEAKER) (test code = 751) MEAN CORPUSCULAR HEMOGLOBIN CONC 30.5 GM/DL 32.3-36.5 L (BEAKER) (test code = 752) RED CELL DISTRIBUTION WIDTH 14.8 % 11.6-14.4 H (BEAKER) (test code = 412) PLATELET COUNT (BEAKER) (test 195 K/CU MM 150-450 code = 756) MEAN PLATELET VOLUME (BEAKER) 10.4 fL 9.4-12.4 (test code = 754) NUCLEATED RED BLOOD CELLS 0 /100 WBC 0-0 (BEAKER) (test code = 413) NEUTROPHILS RELATIVE PERCENT 62 % (BEAKER) (test code = 429) LYMPHOCYTES RELATIVE PERCENT 14 % (BEAKER) (test code = 430) MONOCYTES RELATIVE PERCENT 11 % (BEAKER) (test code = 431) EOSINOPHILS RELATIVE PERCENT 12 % (BEAKER) (test code = 432) BASOPHILS RELATIVE PERCENT 1 % (BEAKER) (test code = 437) NEUTROPHILS ABSOLUTE COUNT 6.01 K/ L 1.78-5.38 H (BEAKER) (test code = 670) LYMPHOCYTES ABSOLUTE COUNT 1.34 K/ L 1.32-3.57 (BEAKER) (test code = 414) MONOCYTES ABSOLUTE COUNT (BEAKER) 1.08 K/ L 0.30-0.82 H (test code = 415) EOSINOPHILS ABSOLUTE COUNT 1.19 K/ L 0.04-0.54 H (BEAKER) (test code = 416) BASOPHILS ABSOLUTE COUNT (BEAKER) 0.05 K/ L 0.01-0.08 (test code = 417) IMMATURE GRANULOCYTES-RELATIVE 0.60 % 0.00-1.00 PERCENT (BEAKER) (test code = 2801) POCT-GLUCOSE [id number] 04:35:21 Test Item Value Reference Range Interpretation Comments POC-GLUCOSE METER 331 mg/dL 70-110 H : TESTED A T [facility] 6720 (BEAKER) (test code = [facility], 1538) 03751: Concrete Building Assembler/Techni marissa ID = [id number] for Jessica Paredes POCT-GLUCOSE [id number] 02:54:17 Test Item Value Reference Range Interpretation Comments POC-GLUCOSE METER 296 mg/dL 70-110 H : TESTED A T [facility] 6720 (BEAKER) (test code = [facility], 1538) 97841: Concrete Building Assembler/Techni marissa ID = [id number] for Bradford segal (contract), Roger yung POCT-GLUCOSE [id number] 00:28:32 Test Item Value Reference Range Interpretation Comments POC-GLUCOSE METER 175 mg/dL 70-110 H : TESTED A T [facility] 6720 (BEAKER) (test code = [facility], [facility]8) 32521: Concrete Building Assembler/Techni marissa ID = [id number] for Oswaldo Hou POCT-GLUCOSE [id number] 23:08:22 Test Item Value Reference Range Interpretation Comments POC-GLUCOSE METER 147 mg/dL 70-110 H : TESTED A T [facility] 6720 (BEAKER) (test code = [facility], 1538) 92307: Concrete Building Assembler/Techni marissa ID = [id number] for Francois karimi, Jessica POCT-GLUCOSE [id number] 21:39:04 Test Item Value Reference Range Interpretation Comments POC-GLUCOSE METER 167 mg/dL 70-110 H : TESTED A T [facility] 6720 (BEAKER) (test code = [facility], 1538) 30594: Concrete Building Assembler/Techni marissa ID = [id number] for Francois karimi, Jessica POCT-GLUCOSE [id number] 18:38:37 Test Item Value Reference Range Interpretation Comments POC-GLUCOSE METER 161 mg/dL 70-110 H : TESTED A T [facility] 6720 (BEAKER) (test code = [facility], [facility]8) 26876: Concrete Building Assembler/Techni marissa ID = [id number] for Alexandra travis (contract), Gaf zuleta XR CHEST 1 VIEW PORTABLE / [id number] 17:12:19 [facility] : 1965 Sex: MEXAMINATION: XR CHEST 1 VIEW PORTABLE / BEDSIDE INDICATION: Intubation, atelectasis, effusion, pneumothorax.COMPARISON: CXR of earlier the same day FINDINGS/IMPRESSION:LINES/TUBES: Endotracheal tube tip terminates in the mid intrathoracictrachea in satisfactory position. Additional support lines and tubesunchanged. LUNGS/PLEURA: Stable lung volumes and bilateral interstitial andalveolar airspace opacities (left greater than right). Small to moderateleft pleural effusion with adjacent basilar opacities is unchanged.Unchanged left apical pneumothorax with maximal air gap of 4 mm.MEDIASTINUM: The cardiomedia stinal silhouette is unchanged in size andshape.BONES/SOFT TISSUES: No acute osseous injury.ABDOMEN:No free air under the diaphragm. Electronically Signed By: Solis Zapata02/13/2023 17:14 CDTWorkstation Name: [id number] 17:00:24 Test Item Value Reference Range Interpretation Comments POC-GLUCOSE METER 193 mg/dL 70-110 H : TESTED A T [facility] 6720 ([place]) (test code = [facility], 1538) 57105: Concrete Building Assembler/Techni marissa ID = [id number] for Bu ggs (contract), Gaf ferrai POCT-GLUCOSE [id number] 15:57:22 Test Item Value Reference Range Interpretation Comments POC-GLUCOSE METER 192 mg/dL 70-110 H : TESTED A T [facility] 6720 (BEAKER) (test code = [facility], 1538) 47808: Concrete Building Assembler/Techni marissa ID = [id number] for Bu ggs (contract), Gaf fery XR CHEST 1 VIEW PORTABLE / [id number] 14:23:09 [facility] 1965 Sex: MEXAMINATION: XR CHEST 1 VIEW PORTABLE / BEDSIDE INDICATION: Self Extubation, interval chest tube removal, atelectasis,effusion, pneumonia, pneumothorax.COMPARISON: CXR of the prior day FINDINGS:LINES/TUBES: Interval extubation and removal of right IJ [place] Ganzcatheter and left chest tube. Enteric tube unchanged.LUNGS: Stable lung volumes and left basilar opacities. Perihilarfullness and pulmonary vascular i ndistinctness. No new focal airspaceconsolidation.PLEURA: Stable left pleural effusion. Trace 4mm left apicalpneumothorax.MEDIASTINUM: The cardiomediastinal silhouette is stable in size andshape.BONES/SOFT TISSUES: No acute osseous injury. Stable old right ribfractures. Sternotomy wires unchanged.ABDOMEN: No free air under the diaphragm.IMPRESSION:Trace 4mm left apical pneumothorax following left chest tube removal.Stable trace left pleural effusion.Stable pulmonary interstitial edema and left basilar airspace opacitiesstatus post interval extubation.Electronically Signed By: June Soto02/13/2023 14:25 CDTWorkstation Name: [id number] 14:20:36 Test Item Value Reference Range Interpretation Comments POC-GLUCOSE METER 199 mg/dL 70-110 H : TESTED A T [facility] 6720 (MovingHealthAKER) (test code = [facility], 1538) 50928: Concrete Building Assembler/Techni marissa ID = [id number] for Bu ggs (contract), Gaf fery POCT-GLUCOSE [id number] 13:02:36 Test Item Value Reference Range Interpretation Comments POC-GLUCOSE METER 211 mg/dL 70-110 H : TESTED A T [facility] 6720 (BEAKER) (test code = [facility], 1538) 16327: Concrete Building Assembler/Techni marissa ID = [id number] for Bu ggs (contract), Gaf fery POCT-GLUCOSE [id number] 12:05:41 Test Item Value Reference Range Interpretation Comments POC-GLUCOSE METER 221 mg/dL 70-110 H : TESTED A T [facility] 6720 (BEAKER) (test code = [facility], 1538) 29211: Concrete Building Assembler/Techni marissa ID = [id number] for Bu ggs (contract), Gaf fery POCT-GLUCOSE [id number] 11:01:33 Test Item Value Reference Range Interpretation Comments POC-GLUCOSE METER 226 mg/dL 70-110 H : TESTED A T [facility] 6720 (BEAKER) (test code = [facility], 1538) 34329: Concrete Building Assembler/Techni marissa ID = [id number] for Bu ggs (contract), Gaf fery POCT-GLUCOSE [id number] 09:56:08 Test Item Value Reference Range Interpretation Comments POC-GLUCOSE METER 231 mg/dL 70-110 H : TESTED A T [facility] 6720 (BEAKER) (test code = [facility], [facility]8) 33245: Concrete Building Assembler/Techni marissa ID = [id number] for Bu ggs (contract), Gaf fery POCT-GLUCOSE [id number] 09:01:00 Test Item Value Reference Range Interpretation Comments POC-GLUCOSE METER 224 mg/dL 70-110 H : TESTED A T [facility] 6720 (BEAKER) (test code = [facility], 1538) 98985: Concrete Building Assembler/Techni marissa ID = [id number] for Bu ggs (contract), Gaf fery POCT-GLUCOSE [id number] 07:55:27 Test Item Value Reference Range Interpretation Comments POC-GLUCOSE METER 190 mg/dL 70-110 H : TESTED A T [facility] 6720 (BEAKER) (test code = [facility], 1538) 06080: Concrete Building Assembler/Techni marissa ID = [id number] for Bu ggs (contract), Gaf fery POCT-GLUCOSE [id number] 07:06:26 Test Item Value Reference Range Interpretation Comments POC-GLUCOSE METER 139 mg/dL 70-110 H : TESTED A T [facility] 6720 (BEAKER) (test code = [facility], 1538) 58225: Concrete Building Assembler/Techni marissa ID = [id number] for Bu ggs (contract), Gaf fery POCT-GLUCOSE [id number] 06:20:48 Test Item Value Reference Range Interpretation Comments POC-GLUCOSE METER 153 mg/dL 70-110 H : TESTED A T [facility] (SUNG) (test code = [facility]by [facility], 1538) 12942: Concrete Building Assembler/Techni marissa ID = [id number] for Speedy quiñones, Shaye POCT-GLUCOSE [id number] 05:36:24 Test Item Value Reference Range Interpretation Comments POC-GLUCOSE METER 158 mg/dL 70-110 H : [facility]UNG[facility] (test code = [facility], 1538) 57789: Concrete Building Assembler/Techni marissa ID = [id number] for Speedy quiñones, Shaye XR CHEST 1 VIEW PORTABLE / [id number] 05:07:26 [facility] : 1965 Sex: MXR CHEST 1 VIEW PORTABLE / BEDSIDEINDICATION: daily morningCOMPARISON: Prior day's examFINDINGS: Portable frontal view of the chest. IMPRESSION:Support Lines: The pulmonary arterial catheter has been removed.Otherwise, stable. Lungs and pleura: Unchanged left greater than right airspace and pleuralopacities. No pneumothorax.Heart and mediastinum: Stable contours.Additional findings: None.Electronically Signed By: Chilango Braga02/13/2023 05:09 CDTWorkstation Name: [id number] 04:17:38 Test Item Value Reference Range Interpretation Comments POC-GLUCOSE METER 198 mg/dL 70-110 H : TESTED A T [facility]20 (SUNG) (test code = [facility], 1538) 54455: Concrete Building Assembler/Techni marissa ID = [id number] for Speedy quiñones, Shaye POCT-GLUCOSE [id number] 03:09:38 Test Item Value Reference Range Interpretation Comments POC-GLUCOSE METER 206 mg/dL 70-110 H : TESTED A T [facility] 6720 (BEAKER) (test code = [facility]AB[facility] Guardado [facility], 1538) 30297: Concrete Building Assembler/Techni marissa ID = [id number] for Shaye Enrique COMPREHENSIVE METABOLIC [id number] 02:57:39 Test Item Value Reference Range Interpretation Comments TOTAL PROTEIN 5.7 gm/dL 6.0-8.3 L (BEAKER) (test code = 770) ALBUMIN (BEAKER) 2.2 g/dL 3.5-5.0 L (test code = 1145) ALKALINE 205 U/L 40-150 H PHOSPHATASE (BEAKER) (test code = 346) BILIRUBIN TOTAL 0.6 mg/dL 0.2-1.2 (BEAKER) (test code = 377) SODIUM (BEAKER) 139 meq/L 136-145 (test code = 381) POTASSIUM (BEAKER) 4.0 meq/L 3.5-5.1 (test code = 379) CHLORIDE (BEAKER) 106 meq/L 98-107 (test code = 382) CO2 (BEAKER) (test 22 meq/L 22-29 code = 355) BLOOD UREA 18 mg/dL 7-21 NITROGEN (BEAKER) (test code = 354) CREATININE 1.15 mg/dL 0.57-1.25 (BEAKER) (test code = 358) GLUCOSE RANDOM 229 mg/dL 70-105 H (BEAKER) (test code = 652) CALCIUM (BEAKER) 7.5 mg/dL 8.4-10.2 L (test code = 697) AST (SGOT) 49 U/L 5-34 H (BEAKER) (test code = 353) ALT (SGPT) 37 U/L 6-55 (BEAKER) (test code = 347) EGFR (BEAKER) 74 Interpretatio n of eGFR (test code = 1092) mL/min/1.[address] age Description sq m Result G1 Lucy l or high >=90 G2 Mildly decreased 60-89 G3a Mildl y to moderately 45-5 9 G3b Moderately to s everely 30-44 G4 Severl y decreased 15-29 G5 Kidney failure <15Reported eGF R is based on the CKD-EPI 202 equation that d oes not use a race coefficientEsti mated GFR is not as accur ate as Creatinine Zuri hylton in predicting glom erular filtration rate . Estimated GFR is not appl icable for dialysis patien ts Concrete Building Assembler ID - [id number] 02:56:20 Test Item Value Reference Range Interpretation Comments MAGNESIUM (BEAKER) (test code = 2.2 mg/dL 1.6-2.6 627) Concrete Building Assembler ID - [id number] 02:56:20 Test Item Value Reference Range Interpretation Comments PHOSPHORUS (BEAKER) (test code = 3.1 mg/dL 2.3-4.7 604) Concrete Building Assembler ID - ADMINCBC W/PLT COUNT & AUTO [id number] 02:45:52 Test Item Value Reference Range Interpretation Comments WHITE BLOOD CELL COUNT 8.8 K/ L 3.5-10.5 (BEAKER) (test code = 775) RED BLOOD CELL COUNT 2.88 M/ L 4.63-6.08 L (BEAKER) (test code = 761) HEMOGLOBIN (BEAKER) 8.2 GM/DL 13.7-17.5 L (test code = 410) HEMATOCRIT (BEAKER) 26.8 % 40.1-51.0 L (test code = 411) MEAN CORPUSCULAR 93 fL 79-92 H Discordant results VOLUME (BEAKER) (test compar ed to code = 753) previous, clini marck correlation required. MEAN CORPUSCULAR 28.5 pg 25.7-32.2 HEMOGLOBIN (BEAKER) (test code = 751) MEAN CORPUSCULAR 30.6 GM/DL 32.3-36.5 L HEMOGLOBIN CONC (BEAKER) (test code = 752) RED CELL DISTRIBUTION 14.9 % 11.6-14.4 H WIDTH (BEAKER) (test code = 412) PLATELET COUNT 169 K/CU MM 150-450 (BEAKER) (test code = 756) MEAN PLATELET VOLUME 10.5 fL 9.4-12.4 (BEAKER) (test code = 754) NUCLEATED RED BLOOD 0 /100 WBC 0-0 CELLS (BEAKER) (test code = 413) NEUTROPHILS RELATIVE 61 % PERCENT (BEAKER) (test code = 429) LYMPHOCYTES RELATIVE 16 % PERCENT (BEAKER) (test code = 430) MONOCYTES RELATIVE 11 % PERCENT (BEAKER) (test code = 431) EOSINOPHILS RELATIVE 11 % PERCENT (BEAKER) (test code = 432) BASOPHILS RELATIVE 1 % PERCENT (BEAKER) (test code = 437) NEUTROPHILS ABSOLUTE 5.41 K/ L 1.78-5.38 H COUNT (BEAKER) (test code = 670) LYMPHOCYTES ABSOLUTE 1.40 K/ L 1.32-3.57 COUNT (BEAKER) (test code = 414) MONOCYTES ABSOLUTE 0.95 K/ L 0.30-0.82 H COUNT (BEAKER) (test code = 415) EOSINOPHILS ABSOLUTE 0.97 K/ L 0.04-0.54 H COUNT (BEAKER) (test code = 416) BASOPHILS ABSOLUTE 0.05 K/ L 0.01-0.08 COUNT (BEAKER) (test code = 417) IMMATURE 0.50 % 0.00-1.00 GRANULOCYTES-RELATIVE PERCENT (BEAKER) (test code = 2801) CALCIUM, [id number] 02:33:02 Test Item Value Reference Range Interpretation Comments CALCIUM IONIZED (BEAKER) (test 1.08 mmol/L 1.12-1.27 L code = 698) PH, BLOOD (BEAKER) (test code = 7.46 1810) POCT-GLUCOSE [id number] 02:17:01 Test Item Value Reference Range Interpretation Comments POC-GLUCOSE METER 215 mg/dL 70-110 H : TESTED A T [facility] 6720 (BEAKER) (test code = [facility], 1538) 19842: Concrete Building Assembler/Techni marissa ID = [id number] for Speedy an, Shaye POCT-GLUCOSE [id number] 01:34:43 Test Item Value Reference Range Interpretation Comments POC-GLUCOSE METER 205 mg/dL 70-110 H : TESTED A T [facility] 6720 (BEAKER) (test code = [facility], 1538) 84443: Concrete Building Assembler/Techni marissa ID = [id number] for Speedy an, Shaye POCT-GLUCOSE [id number] 00:20:20 Test Item Value Reference Range Interpretation Comments POC-GLUCOSE METER 193 mg/dL 70-110 H : TESTED A T [facility] 6720 (BEAKER) (test code = [facility], 1538) 31198: Concrete Building Assembler/Techni marissa ID = [id number] for Joie Enriqueca POCT-GLUCOSE [id number] 23:07:46 Test Item Value Reference Range Interpretation Comments POC-GLUCOSE METER 143 mg/dL 70-110 H : TESTED A T [facility] 6720 (BEAKER) (test code = [facility], 1538) 01729: Concrete Building Assembler/Techni marissa ID = [id number] for Speedy quiñones Shaye POCT-GLUCOSE [id number] 22:11:52 Test Item Value Reference Range Interpretation Comments POC-GLUCOSE METER 160 mg/dL 70-110 H : TESTED A T [facility] 6720 (BEAKER) (test code = [facility], [facility]8) 15302: Concrete Building Assembler/Techni marissa ID = [id number] for Joie Enriqueca POCT-GLUCOSE [id number] 21:10:56 Test Item Value Reference Range Interpretation Comments POC-GLUCOSE METER 202 mg/dL 70-110 H : TESTED A T [facility] 6720 (BEAKER) (test code = [facility], [facility]8) 63434: Concrete Building Assembler/Techni marissa ID = [id number] for Shaye Enrique [id number] 20:28:56 Test Item Value Reference Range Interpretation Comments MAGNESIUM (BEAKER) 2.3 mg/dL 1.6-2.6 Specimen slightly (test code = 627) hemolyzed Concrete Building Assembler ID - [id number] 20:28:56 Test Item Value Reference Range Interpretation Comments POTASSIUM (BEAKER) 4.2 meq/L 3.5-5.1 Specimen slightly (test code = 379) hemolyzed Concrete Building Assembler ID - ADMINCALCIUM, [id number] 20:10:27 Test Item Value Reference Range Interpretation Comments CALCIUM IONIZED (BEAKER) (test 1.09 mmol/L 1.12-1.27 L code = 698) PH, BLOOD (BEAKER) (test code = 7.50 1810) POCT-GLUCOSE [id number] 20:04:45 Test Item Value Reference Range Interpretation Comments POC-GLUCOSE METER 249 mg/dL 70-110 H : TESTED A T [facility] 6720 (BEAKER) (test code = [facility], 1538) 17886: Concrete Building Assembler/Techni marissa ID = [id number] for Shaye Enrique POCT-GLUCOSE [id number] 19:15:31 Test Item Value Reference Range Interpretation Comments POC-GLUCOSE METER 284 mg/dL 70-110 H : TESTED A T [facility] 6720 (BEAKER) (test code = [facility], [facility]8) 47296: Concrete Building Assembler/Techni marissa ID = [id number] for Bu ggs (contract), Gaf fery POCT-GLUCOSE [id number] 18:15:16 Test Item Value Reference Range Interpretation Comments POC-GLUCOSE METER 303 mg/dL 70-110 H : TESTED A T [facility] 6720 (BEAKER) (test code = [facility], [facility]8) 88619: Concrete Building Assembler/Techni marissa ID = [id number] for Bu ggs (contract), Gaf fery POCT-GLUCOSE [id number] 16:44:23 Test Item Value Reference Range Interpretation Comments POC-GLUCOSE METER 288 mg/dL 70-110 H : TESTED A T [facility] 6720 (BEAKER) (test code = [facility], [facility]8) 34070: Concrete Building Assembler/Techni marissa ID = [id number] for Bu ggs (contract), Gaf fery POCT-GLUCOSE [id number] 14:59:49 Test Item Value Reference Range Interpretation Comments POC-GLUCOSE METER 158 mg/dL 70-110 H : TESTED A T [facility] 6720 (BEAKER) (test code = [facility], [facility]) 29530: Concrete Building Assembler/Techni marissa ID = [id number] for Bu ggs (contract), Gaf fery POCT-GLUCOSE [id number] 14:26:51 Test Item Value Reference Range Interpretation Comments POC-GLUCOSE METER 142 mg/dL 70-110 H : TESTED A T [facility] 6720 (BEAKER) (test code = [facility], [facility]) 50413: Concrete Building Assembler/Techni marissa ID = [id number] for Bu ggs (contract), Gaf fery POCT-GLUCOSE [id number] 12:00:45 Test Item Value Reference Range Interpretation Comments POC-GLUCOSE METER 158 mg/dL 70-110 H : TESTED A T [facility] 6720 (BEAKER) (test code = [facility], 1538) 97657: Concrete Building Assembler/Techni marissa ID = [id number] for Bu ggs (contract), Gaf fery POCT-GLUCOSE [id number] 10:30:04 Test Item Value Reference Range Interpretation Comments POC-GLUCOSE METER 208 mg/dL 70-110 H : TESTED A T [facility] 6720 (BEAKER) (test code = [facility], 1538) 51020: Concrete Building Assembler/Techni marissa ID = [id number] for Bu ggs (contract), Gaf fery POCT-GLUCOSE [id number] 09:27:43 Test Item Value Reference Range Interpretation Comments POC-GLUCOSE METER 216 mg/dL 70-110 H : TESTED A T [facility] 6720 (BEAKER) (test code = [facility], 1538) 78352: Concrete Building Assembler/Techni marissa ID = [id number] for Bu ggs (contract), Gaf fery POCT-GLUCOSE [id number] 08:03:55 Test Item Value Reference Range Interpretation Comments POC-GLUCOSE METER 237 mg/dL 70-110 H : TESTED A T [facility] 6720 (BEAKER) (test code = [facility], 1538) 02489: Concrete Building Assembler/Techni marissa ID = [id number] for Bu ggs (contract), Gaf fery XR CHEST 1 VIEW PORTABLE / [id number] 07:00:45 [facility] 1965 Sex: MXR CHEST 1 VIEW PORTABLE / BEDSIDEINDICATION: daily morningCOMPARISON: Prior day's examTECHNIQUE: Portablefrontal view(s) of the chest. FINDINGS: Support Lines and Devices: Stable. Lungs and pleura: Unchanged airspace and pleural opacities. Nopneumothorax identified.Heart and mediastinum: Stable contours. Stable surgical changes.Additional findings: The patient is rotated to the left.IMPRESSION:1. No significant change from prior exam.2. Hazy airspace opacities in the lower lungs bilaterally, which mayrepresent atelectasis, pneumonia, or pulmonary edema.Electronically Signed By: Keyur Johnson02/12/2023 07:02 CDTWorkstation Name: [id number] 06:37:50 Test Item Value Reference Range Interpretation Comments POC-GLUCOSE METER 200 mg/dL 70-110 H : TESTED A T [facility] 6720 (BEAKER) (test code = [facility], 1538) 01077: Concrete Building Assembler/Techni marissa ID = [id number] for Oswaldo Hou POCT-GLUCOSE [id number] 04:22:18 Test Item Value Reference Range Interpretation Comments POC-GLUCOSE METER 185 mg/dL 70-110 H : TESTED A T [facility] 6720 (BEAKER) (test code = [facility], 1538) 08099: Concrete Building Assembler/Techni marissa ID = [id number] for Joie Enriqueca URINALYSIS W/ REFLEX URINE [id number] 04:18:16 Test Item Value Reference Range Interpretation Comments COLOR (BEAKER) (test code = 470) Light Yellow CLARITY (BEAKER) (test code = Hazy 469) SPECIFIC GRAVITY UA (BEAKER) 1.019 1.001-1.035 (test code = 468) PH UA (BEAKER) (test code = 467) 8.5 5.0-8.0 H PROTEIN UA (BEAKER) (test code = 100 mg/dL Negative A 464) GLUCOSE UA (BEAKER) (test code = Negative Negative 365) KETONES UA (BEAKER) (test code = Negative Negative 371) BILIRUBIN UA (BEAKER) (test code Negative Negative = 462) BLOOD UA (BEAKER) (test code = Negative Negative 461) NITRITE UA (BEAKER) (test code = Negative Negative 465) LEUKOCYTE ESTERASE UA (BEAKER) Small Negative A (test code = 466) UROBILINOGEN UA (BEAKER) (test 0.2 0.2-1.0 code = 463) RBC UA (BEAKER) (test code = 8 /HPF 519) WBC UA (BEAKER) (test code = 16 /HPF 520) BACTERIA (BEAKER) (test code = Rare 517) YEAST (BEAKER) (test code = Many 1585) SOURCE(BEAKER) (test code = 3615) Concrete Building Assembler ID - [auto]Concrete Building Assembler ID - techCALCIUM, [id number] 04:06:22 Test Item Value Reference Range Interpretation Comments CALCIUM IONIZED (BEAKER) (test 1.05 mmol/L 1.12-1.27 L code = 698) PH, BLOOD (BEAKER) (test code = 7.48 1810) OXYGEN SATURATION, [id number] 04:04:47 Test Item Value Reference Range Interpretation Comments O2 SATURATION (MEASURED) (BEAKER) 85.1 % (test code = 1455) [id number] 02:57:15 Test Item Value Reference Range Interpretation Comments PHOSPHORUS (BEAKER) (test code = 3.5 mg/dL 2.3-4.7 604) Concrete Building Assembler ID - ADMINCOMPREHENSIVE METABOLIC [id number] 02:57:14 Test Item Value Reference Range Interpretation Comments TOTAL PROTEIN 5.9 gm/dL 6.0-8.3 L (BEAKER) (test code = 770) ALBUMIN (BEAKER) 2.3 g/dL 3.5-5.0 L (test code = 1145) ALKALINE 193 U/L 40-150 H PHOSPHATASE (BEAKER) (test code = 346) BILIRUBIN TOTAL 0.7 mg/dL 0.2-1.2 (BEAKER) (test code = 377) SODIUM (BEAKER) 141 meq/L 136-145 (test code = 381) POTASSIUM (BEAKER) 3.7 meq/L 3.5-5.1 (test code = 379) CHLORIDE (BEAKER) 104 meq/L 98-107 (test code = 382) CO2 (BEAKER) (test 25 meq/L 22-29 code = 355) BLOOD UREA 16 mg/dL 7-21 NITROGEN (BEAKER) (test code = 354) CREATININE 1.09 mg/dL 0.57-1.25 (BEAKER) (test code = 358) GLUCOSE RANDOM 162 mg/dL 70-105 H (BEAKER) (test code = 652) CALCIUM (BEAKER) 8.0 mg/dL 8.4-10.2 L (test code = 697) AST (SGOT) 44 U/L 5-34 H (BEAKER) (test code = 353) ALT (SGPT) 39 U/L 6-55 (BEAKER) (test code = 347) EGFR (BEAKER) 79 Interpretatio n of eGFR (test code = 1092) mL/min/1.[address] age Description sq m Result G1 Lucy l or high >=90 G2 Mildly decreased 60-89 G3a Mildl y to moderately 45-5 9 G3b Moderately to s everely 30-44 G4 Severl y decreased 15-29 G5 Kidney failure <15Reported eGF R is based on the CKD-EPI 2020 equation that d oes not use a race coefficientEsti mated GFR is not as accur ate as Creatinine Zuri warner in predicting glom erular filtration rate . Estimated GFR is not appl icable for dialysis patien ts [employer] Building Assembler ID - [id number] 02:57:14 Test Item Value Reference Range Interpretation Comments MAGNESIUM (BEAKER) (test code = 2.1 mg/dL 1.6-2.6 627) [employer] Building As[employer]er ID - ADMINCBC W/PLT COUNT & AUTO [id number] 02:46:54 Test Item Value Reference Range Interpretation Comments WHITE BLOOD CELL COUNT (BEAKER) 7.2 K/ L 3.5-10.5 (test code = 775) RED BLOOD CELL COUNT (BEAKER) 2.91 M/ L 4.63-6.08 L (test code = 761) HEMOGLOBIN (BEAKER) (test code = 8.5 GM/DL 13.7-17.5 L 410) HEMATOCRIT (BEAKER) (test code = 25.9 % 40.1-51.0 L 411) MEAN CORPUSCULAR VOLUME (BEAKER) 89 fL 79-92 (test code = 753) MEAN CORPUSCULAR HEMOGLOBIN 29.2 pg 25.7-32.2 (BEAKER) (test code = 751) MEAN CORPUSCULAR HEMOGLOBIN CONC 32.8 GM/DL 32.3-36.5 (BEAKER) (test code = 752) RED CELL DISTRIBUTION WIDTH 15.0 % 11.6-14.4 H (BEAKER) (test code = 412) PLATELET COUNT (BEAKER) (test 166 K/CU MM 150-450 code = 756) MEAN PLATELET VOLUME (BEAKER) 10.0 fL 9.4-12.4 (test code = 754) NUCLEATED RED BLOOD CELLS 0 /100 WBC 0-0 (BEAKER) (test code = 413) NEUTROPHILS RELATIVE PERCENT 58 % (BEAKER) (test code = 429) LYMPHOCYTES RELATIVE PERCENT 20 % (BEAKER) (test code = 430) MONOCYTES RELATIVE PERCENT 9 % (BEAKER) (test code = 431) EOSINOPHILS RELATIVE PERCENT 13 % (BEAKER) (test code = 432) BASOPHILS RELATIVE PERCENT 0 % (BEAKER) (test code = 437) NEUTROPHILS ABSOLUTE COUNT 4.17 K/ L 1.78-5.38 (BEAKER) (test code = 670) LYMPHOCYTES ABSOLUTE COUNT 1.43 K/ L 1.32-3.57 (BEAKER) (test code = 414) MONOCYTES ABSOLUTE COUNT (BEAKER) 0.64 K/ L 0.30-0.82 (test code = 415) EOSINOPHILS ABSOLUTE COUNT 0.93 K/ L 0.04-0.54 H (BEAKER) (test code = 416) BASOPHILS ABSOLUTE COUNT (BEAKER) 0.03 K/ L 0.01-0.08 (test code = 417) IMMATURE GRANULOCYTES-RELATIVE 0.30 % 0.00-1.00 PERCENT (BEAKER) (test code = 2801) POCT-GLUCOSE [id number] 02:24:21 Test Item Value Reference Range Interpretation Comments POC-GLUCOSE METER 163 mg/dL 70-110 H : TESTED A T [facility] 6720 (BEAKER) (test code = [facility], 1538) 32863: Concrete Building Assembler/Techni marissa ID = [id number] for Speedy wman, Shaye POCT-GLUCOSE [id number] 01:09:29 Test Item Value Reference Range Interpretation Comments POC-GLUCOSE METER 152 mg/dL 70-110 H : TESTED A T [facility] 6720 (BEAKER) (test code = [facility], 1538) 18801: Concrete Building Assembler/Techni marissa ID = [id number] for Speedy wman, Shaye POCT-GLUCOSE [id number] 00:19:06 Test Item Value Reference Range Interpretation Comments POC-GLUCOSE METER 153 mg/dL 70-110 H : TESTED A T [facility] 6720 (BEAKER) (test code = [facility], 1538) 65500: Concrete Building Assembler/Techni marissa ID = [id number] for Joie Enriqueca POCT-GLUCOSE [id number] 23:22:06 Test Item Value Reference Range Interpretation Comments POC-GLUCOSE METER 167 mg/dL 70-110 H : TESTED A T [facility] 6720 (BEAKER) (test code = [facility], 1538) 81957: Concrete Building Assembler/Techni marissa ID = [id number] for Joie Enriqueca POCT-GLUCOSE [id number] 22:36:10 Test Item Value Reference Range Interpretation Comments POC-GLUCOSE METER 171 mg/dL 70-110 H : TESTED A T [facility] 6720 (BEAKER) (test code = [facility], 1538) 70222: Concrete Building Assembler/Techni marissa ID = [id number] for Shaye Enrique [id number] 21:33:46 Test Item Value Reference Range Interpretation Comments POTASSIUM (BEAKER) (test code = 3.5 meq/L 3.5-5.1 379) Concrete Building Assembler ID - [id number] 21:33:45 Test Item Value Reference Range Interpretation Comments MAGNESIUM (BEAKER) (test code = 2.2 mg/dL 1.6-2.6 627) Concrete Building Assembler ID - ADMINPOCT-GLUCOSE [id number] 21:10:20 Test Item Value Reference Range Interpretation Comments POC-GLUCOSE METER 216 mg/dL 70-110 H : TESTED A T [facility] 6720 (BEAKER) (test code = [facility], 1538) 72420: Concrete Building Assembler/Techni marissa ID = [id number] for Shaye Enrique CALCIUM, [id number] 21:08:01 Test Item Value Reference Range Interpretation Comments CALCIUM IONIZED (BEAKER) (test 1.07 mmol/L 1.12-1.27 L code = 698) PH, BLOOD (BEAKER) (test code = 7.59 1810) POCT-GLUCOSE [id number] 20:10:37 Test Item Value Reference Range Interpretation Comments POC-GLUCOSE METER 258 mg/dL 70-110 H : TESTED A T [facility] 6720 (BEAKER) (test code = [facility], 1538) 03934: Concrete Building Assembler/Techni marissa ID = [id number] for Shaye Enrique POCT-GLUCOSE [id number] 19:10:38 Test Item Value Reference Range Interpretation Comments POC-GLUCOSE METER 223 mg/dL 70-110 H : TESTED A T [facility] 6720 (BEAKER) (test code = [facility], 1538) 96528: Concrete Building Assembler/Techni marissa ID = [id number] for Ng angelica, MY POCT-GLUCOSE [id number] 16:48:53 Test Item Value Reference Range Interpretation Comments POC-GLUCOSE METER 197 mg/dL 70-110 H : TESTED A T [facility] 6720 (BEAKER) (test code = [facility], 1538) 05845: Concrete Building Assembler/Techni marissa ID = [id number] for Ng angelica, MY POCT-GLUCOSE [id number] 15:26:53 Test Item Value Reference Range Interpretation Comments POC-GLUCOSE METER 227 mg/dL 70-110 H : TESTED A T [facility] 6720 (BEAKER) (test code = [facility], 1538) 14993: Concrete Building Assembler/Techni marissa ID = [id number] for Ng angelica, MY POCT-GLUCOSE [id number] 13:25:27 Test Item Value Reference Range Interpretation Comments POC-GLUCOSE METER 187 mg/dL 70-110 H : TESTED A T [facility] 6720 (BEAKER) (test code = [facility], 1538) 13914: Concrete Building Assembler/Techni marissa ID = [id number] for Ng angelica, MY BLOOD [id number] 12:49:57 Test Item Value Reference Range Interpretation Comments CULTURE (BEAKER) (test No growth in 5 days code = 1095) POCT-GLUCOSE [id number] 11:17:05 Test Item Value Reference Range Interpretation Comments POC-GLUCOSE METER 200 mg/dL 70-110 H : TESTED A T [facility] 6720 (BEAKER) (test code = [facility], 1538) 15224: Concrete Building Assembler/Techni marissa ID = [id number] for Chano Akers XR CHEST 1 VIEW PORTABLE / [id number] 10:48:57 [facility] : 1965 Sex: MXR CHEST 1 VIEW PORTABLE / BEDSIDEINDICATION: daily morningCOMPARISON: Prior day's examTECHNIQUE: Portable frontal view(s) of the chest. FINDINGS: Support Lines and Devices: Stable. Lungs and pleura: Unchanged airspace and pleural opacities. Nopneumothorax identified.Heart and mediastinum: Stable contours.Stable surgical changes.Additional findings: None.IMPRESSION:1. No significant change from prior exam.2. Hazy airspace opacities in the lower lungs bilaterally, which mayrepresent atelectasis, pneumonia, or pulmonary edema.Electronically Signed By: Keyur Johnson02/11/2023 10:51 CDTWorkstation Name: [id number] 09:37:26 Test Item Value Reference Range Interpretation Comments POC-GLUCOSE METER 197 mg/dL 70-110 H : [facility] ([place] (test code = [facility], 1538) 86911: Concrete Building Assembler/Techni marissa ID = [id number] for Ng angelica, MY POCT-GLUCOSE [id number] 09:26:50 Test Item Value Reference Range Interpretation Comments POC-GLUCOSE METER 201 mg/dL 70-110 H : TESTED A T [facility] 6720 ([place]) (test code = [facility], 1538) 03602: Concrete Building Assembler/Techni marissa ID = [id number] for Ng angelica, MY POCT-GLUCOSE [id number] 08:19:59 Test Item Value Reference Range Interpretation Comments POC-GLUCOSE METER 184 mg/dL 70-110 H : TESTED A T [facility] 6720 (BEAKER) (test code = [facility], 153) 77619: Concrete Building Assembler/Techni marissa ID = [id number] for Chano Akers POCT-GLUCOSE [id number] 07:17:00 Test Item Value Reference Range Interpretation Comments POC-GLUCOSE METER 178 mg/dL 70-110 H : TESTED A T [facility] 6720 (BEAKER) (test code = [facility], 1538) 26645: Concrete Building Assembler/Techni marissa ID = [id number] for Ng angelica, MY POCT-GLUCOSE [id number] 06:08:35 Test Item Value Reference Range Interpretation Comments POC-GLUCOSE METER 180 mg/dL 70-110 H : TESTED A T [facility] 6720 (BEAKER) (test code = [facility], [facility]8) 61652: Concrete Building Assembler/Techni marissa ID = [id number] for Shaye Enrique POCT-GLUCOSE [id number] 05:13:09 Test Item Value Reference Range Interpretation Comments POC-GLUCOSE METER 210 mg/dL 70-110 H : TESTED A T [facility] 6720 (BEAKER) (test code = [facility], 1538) 24093: Concrete Building Assembler/Techni marissa ID = [id number] for MS IBI, MNKASHMIRISI POCT-GLUCOSE [id number] 03:18:47 Test Item Value Reference Range Interpretation Comments POC-GLUCOSE METER 192 mg/dL 70-110 H : TESTED A T [facility] 6720 (BEAKER) (test code = [facility], 153) 72536: Concrete Building Assembler/Techni marissa ID = [id number] for MS IBI, MNKASHMIRISI [id number] 02:38:31 Test Item Value Reference Range Interpretation Comments PHOSPHORUS (BEAKER) (test code = 3.9 mg/dL 2.3-4.7 604) Concrete Building Assembler ID - ADMINCOMPREHENSIVE METABOLIC [id number] 02:38:30 Test Item Value Reference Range Interpretation Comments TOTAL PROTEIN 5.7 gm/dL 6.0-8.3 L (BEAKER) (test code = 770) ALBUMIN (BEAKER) 2.4 g/dL 3.5-5.0 L (test code = 1145) ALKALINE 158 U/L 40-150 H PHOSPHATASE (BEAKER) (test code = 346) BILIRUBIN TOTAL 0.9 mg/dL 0.2-1.2 (BEAKER) (test code = 377) SODIUM (BEAKER) 142 meq/L 136-145 (test code = 381) POTASSIUM (BEAKER) 3.5 meq/L 3.5-5.1 (test code = 379) CHLORIDE (BEAKER) 101 meq/L 98-107 (test code = 382) CO2 (BEAKER) (test 29 meq/L 22-29 code = 355) BLOOD UREA 18 mg/dL 7-21 NITROGEN (BEAKER) (test code = 354) CREATININE 1.07 mg/dL 0.57-1.25 (BEAKER) (test code = 358) GLUCOSE RANDOM 199 mg/dL 70-105 H (BEAKER) (test code = 652) CALCIUM (BEAKER) 8.2 mg/dL 8.4-10.2 L (test code = 697) AST (SGOT) 34 U/L 5-34 (BEAKER) (test code = 353) ALT (SGPT) 47 U/L 6-55 (BEAKER) (test code = 347) EGFR (BEAKER) 80 Interpretatio n of eGFR (test code = 1092) mL/min/1.[address] age Description sq m Result G1 Norm al or high >=90 G2 Mildly decreased 60-89 G3a Mildl y to moderately 45-5 9 G3b Moderately to s everely 30-44 G4 Severl y decreased 15-29 G5 Kidne y failure <15Reported eGF R is based on the CKD-EPI 2021 equation that d oes not use a race coefficientEsti mated GFR is not as accur ate as Creatinine Zuri hylton in predicting glom erular filtration rate . Estimated GFR is not appl icable for dialysis patien ts Concrete Building Assembler ID - [id number] 02:38:30 Test Item Value Reference Range Interpretation Comments MAGNESIUM (BEAKER) (test code = 1.9 mg/dL 1.6-2.6 627) Concrete Building Assembler ID - ADMINCALCIUM, [id number] 02:30:07 Test Item Value Reference Range Interpretation Comments CALCIUM IONIZED (BEAKER) (test 1.03 mmol/L 1.12-1.27 L code = 698) PH, BLOOD (BEAKER) (test code = 7.54 1810) CBC W/PLT COUNT & AUTO [id number] 02:29:08 Test Item Value Reference Range Interpretation Comments WHITE BLOOD CELL COUNT (BEAKER) 7.5 K/ L 3.5-10.5 (test code = 775) RED BLOOD CELL COUNT (BEAKER) 2.87 M/ L 4.63-6.08 L (test code = 761) HEMOGLOBIN (BEAKER) (test code = 8.2 GM/DL 13.7-17.5 L 410) HEMATOCRIT (BEAKER) (test code = 26.0 % 40.1-51.0 L 411) MEAN CORPUSCULAR VOLUME (BEAKER) 91 fL 79-92 (test code = 753) MEAN CORPUSCULAR HEMOGLOBIN 28.6 pg 25.7-32.2 (BEAKER) (test code = 751) MEAN CORPUSCULAR HEMOGLOBIN CONC 31.5 GM/DL 32.3-36.5 L (BEAKER) (test code = 752) RED CELL DISTRIBUTION WIDTH 15.1 % 11.6-14.4 H (BEAKER) (test code = 412) PLATELET COUNT (BEAKER) (test 163 K/CU MM 150-450 code = 756) MEAN PLATELET VOLUME (BEAKER) 9.8 fL 9.4-12.4 (test code = 754) NUCLEATED RED BLOOD CELLS 0 /100 WBC 0-0 (BEAKER) (test code = 413) NEUTROPHILS RELATIVE PERCENT 62 % (BEAKER) (test code = 429) LYMPHOCYTES RELATIVE PERCENT 21 % (BEAKER) (test code = 430) MONOCYTES RELATIVE PERCENT 8 % (BEAKER) (test code = 431) EOSINOPHILS RELATIVE PERCENT 9 % (BEAKER) (test code = 432) BASOPHILS RELATIVE PERCENT 0 % (BEAKER) (test code = 437) NEUTROPHILS ABSOLUTE COUNT 4.65 K/ L 1.78-5.38 (BEAKER) (test code = 670) LYMPHOCYTES ABSOLUTE COUNT 1.54 K/ L 1.32-3.57 (BEAKER) (test code = 414) MONOCYTES ABSOLUTE COUNT (BEAKER) 0.59 K/ L 0.30-0.82 (test code = 415) EOSINOPHILS ABSOLUTE COUNT 0.66 K/ L 0.04-0.54 H (BEAKER) (test code = 416) BASOPHILS ABSOLUTE COUNT (BEAKER) 0.03 K/ L 0.01-0.08 (test code = 417) IMMATURE GRANULOCYTES-RELATIVE 0.40 % 0.00-1.00 PERCENT (BEAKER) (test code = 2801) OXYGEN SATURATION, [id number] 02:25:50 Test Item Value Reference Range Interpretation Comments O2 SATURATION (MEASURED) (BEAKER) 82.3 % (test code = 1455) POCT-GLUCOSE [id number] 02:11:50 Test Item Value Reference Range Interpretation Comments POC-GLUCOSE METER 200 mg/dL 70-110 H : TESTED A T [facility] 6720 (BEAKER) (test code = [facility], 1538) 63173: Concrete Building Assembler/Techni marissa ID = [id number] for MS IBI, MNCEDISI POCT-GLUCOSE [id number] 01:11:19 Test Item Value Reference Range Interpretation Comments POC-GLUCOSE METER 188 mg/dL 70-110 H : TESTED A T [facility] 6720 (BEAKER) (test code = [facility], 1538) 12542: Concrete Building Assembler/Techni marissa ID = [id number] for MS IBI, MNCEDISI POCT-GLUCOSE [id number] 00:13:36 Test Item Value Reference Range Interpretation Comments POC-GLUCOSE METER 163 mg/dL 70-110 H : TESTED A T [facility] 6720 (BEAKER) (test code = [facility], 1538) 74423: Concrete Building Assembler/Techni marissa ID = [id number] for MS IBI, MNCEDISI POCT-GLUCOSE [id number] 23:11:09 Test Item Value Reference Range Interpretation Comments POC-GLUCOSE METER 130 mg/dL 70-110 H : TESTED A T [facility] 6720 (BEAKER) (test code = [facility], 1538) 70931: Concrete Building Assembler/Techni marissa ID = [id number] for MS IBI, MNCEDISI POCT-GLUCOSE [id number] 22:12:43 Test Item Value Reference Range Interpretation Comments POC-GLUCOSE METER 148 mg/dL 70-110 H : TESTED A T [facility] 6720 (BEAKER) (test code = [facility], 153) 04014: Concrete Building Assembler/Techni marissa ID = [id number] for MIGUEL HODGES POCT-GLUCOSE [id number] 21:12:55 Test Item Value Reference Range Interpretation Comments POC-GLUCOSE METER 195 mg/dL 70-110 H : TESTED A T [facility] 6720 (BEAKER) (test code = [facility], 153) 73466: Concrete Building Assembler/Techni marissa ID = [id number] for MIGUEL HODGES CALCIUM, [id number] 20:51:41 Test Item Value Reference Range Interpretation Comments CALCIUM IONIZED (BEAKER) (test 1.05 mmol/L 1.12-1.27 L code = 698) PH, BLOOD (BEAKER) (test code = 7.63 1810) [id number] 20:30:07 Test Item Value Reference Range Interpretation Comments POTASSIUM (BEAKER) 3.6 meq/L 3.5-5.1 Specimen slightly (test code = 379) hemolyzed Concrete Building Assembler ID - ADMINPOCT-GLUCOSE [id number] 20:15:16 Test Item Value Reference Range Interpretation Comments POC-GLUCOSE METER 222 mg/dL 70-110 H : TESTED A T [facility] 6720 (BEAKER) (test code = [facility], 153) 37275: Concrete Building Assembler/Techni marissa ID = [id number] for Speedy surendra Shaye POCT-GLUCOSE [id number] 19:00:10 Test Item Value Reference Range Interpretation Comments POC-GLUCOSE METER 221 mg/dL 70-110 H : TESTED A T [facility] 6720 (BEAKER) (test code = [facility], 153) 01686: Concrete Building Assembler/Techni marissa ID = [id number] for Melecio machellemichelle Silvia POCT-GLUCOSE [id number] 17:34:15 Test Item Value Reference Range Interpretation Comments POC-GLUCOSE METER 219 mg/dL 70-110 H : TESTED A T [facility] 6720 (BEAKER) (test code = [facility], 153) 30071: Concrete Building Assembler/Techni marissa ID = [id number] for Sis Perez [id number] 17:33:39 Test Item Value Reference Range Interpretation Comments POTASSIUM (BEAKER) (test code = 3.7 meq/L 3.5-5.1 379) Concrete Building Assembler ID - ADMINCALCIUM, [id number] 17:11:08 Test Item Value Reference Range Interpretation Comments CALCIUM IONIZED (BEAKER) (test 1.08 mmol/L 1.12-1.27 L code = 698) PH, BLOOD (BEAKER) (test code = 7.58 1810) OXYGEN SATURATION, [id number] 16:56:39 Test Item Value Reference Range Interpretation Comments O2 SATURATION (MEASURED) (BEAKER) 87.5 % (test code = 1455) POCT-GLUCOSE [id number] 16:14:17 Test Item Value Reference Range Interpretation Comments POC-GLUCOSE METER 230 mg/dL 70-110 H : TESTED A T [facility] 6720 (BEAKER) (test code = [facility], 1538) 03467: Concrete Building Assembler/Techni marissa ID = [id number] for Sis Perez POCT-GLUCOSE [id number] 15:22:35 Test Item Value Reference Range Interpretation Comments POC-GLUCOSE METER 237 mg/dL 70-110 H : TESTED A T [facility] 6720 (BEAKER) (test code = [facility], 1538) 06432: Concrete Building Assembler/Techni marissa ID = [id number] for Sis Perez CALCIUM, [id number] 14:50:08 Test Item Value Reference Range Interpretation Comments CALCIUM IONIZED (BEAKER) (test 1.07 mmol/L 1.12-1.27 L code = 698) PH, BLOOD (BEAKER) (test code = 7.51 1810) POCT-GLUCOSE [id number] 13:52:26 Test Item Value Reference Range Interpretation Comments POC-GLUCOSE METER 200 mg/dL 70-110 H : TESTED A T [facility] 6720 (BEAKER) (test code = [facility], 1538) 67014: Concrete Building Assembler/Techni marissa ID = [id number] for Fernando Perezn POCT-GLUCOSE [id number] 13:06:29 Test Item Value Reference Range Interpretation Comments POC-GLUCOSE METER 188 mg/dL 70-110 H : TESTED A T [facility] 6720 (BEAKER) (test code = [facility], 1538) 76758: Concrete Building Assembler/Techni marissa ID = [id number] for Sis Perez LACTIC ACID, [id number] 12:43:08 Test Item Value Reference Range Interpretation Comments LACTATE BLOOD VENOUS (2) (BEAKER) 1.31 mmol/L 0.50-2.00 (test code = 2872) Concrete Building Assembler ID - ADMINOXYGEN SATURATION, [id number] 12:32:07 Test Item Value Reference Range Interpretation Comments O2 SATURATION (MEASURED) (BEAKER) 69.4 % (test code = 1455) [id number] 12:15:09 Test Item Value Reference Range Interpretation Comments GLUCOSE RANDOM (BEAKER) (test code 236 mg/dL 70-105 H = 652) Concrete Building Assembler ID - [id number] 12:15:08 Test Item Value Reference Range Interpretation Comments PHOSPHORUS (BEAKER) (test code = 3.8 mg/dL 2.3-4.7 604) Concrete Building Assembler ID - [id number] 12:15:08 Test Item Value Reference Range Interpretation Comments POTASSIUM (BEAKER) (test code = 3.9 meq/L 3.5-5.1 379) Concrete Building Assembler ID - [id number] 12:15:07 Test Item Value Reference Range Interpretation Comments MAGNESIUM (BEAKER) (test code = 2.2 mg/dL 1.6-2.6 627) Concrete Building Assembler ID - ADMINPOCT-GLUCOSE [id number] 11:53:41 Test Item Value Reference Range Interpretation Comments POC-GLUCOSE METER 210 mg/dL 70-110 H : TESTED A T [facility] 6720 (BEAKER) (test code = [facility], 1538) 55575: Concrete Building Assembler/Techni marissa ID = [id number] for Sis Perez CALCIUM, [id number] 11:41:54 Test Item Value Reference Range Interpretation Comments CALCIUM IONIZED (BEAKER) (test 1.03 mmol/L 1.12-1.27 L code = 698) PH, BLOOD (BEAKER) (test code = 7.56 1810) POCT-GLUCOSE [id number] 11:15:37 Test Item Value Reference Range Interpretation Comments POC-GLUCOSE METER 230 mg/dL 70-110 H : [facility]SUNG[facility] (test code = [facility]by [facility], 1538) 01433: Concrete Building Assembler/Techni marissa ID = [id number] for Silvia Jackson XR CHEST 1 VIEW PORTABLE / [id number] 10:51:07 [facility] 1965 Sex: MXR CHEST 1 VIEW PORTABLE / BEDSIDEINDICATION: daily morningCOMPARISON: Prior day's examTECHNIQUE: Portablefrontal view(s) of the chest. FINDINGS: Support Lines and Devices: The right internal jugular vein centralvenous catheter tip overlies the superior vena cava. Lungs and pleura: Unchanged airspace and pleural opacities. Nopneumothorax identified.Heart and mediastinum: Stable contours. Stable surgical changes.Additional findings: None.IMPRESSION:1. No significant change from prior exam.2. Hazy airspaceopacities in the lower lungs bilaterally, which mayrepresent atelectasis, pneumonia, or pulmonary edema.Electronically Signed By: Keyur Johnson02/10/2023 10:53 CDTWorkstation Name: [id number]- GLUCOSE [id number] 10:05:21 Test Item Value Reference Range Interpretation Comments POC-GLUCOSE METER 242 mg/dL 70-110 H : TESTED A T [facility] 6720 (SUNG) (test code = [facility] Guard[facility], 1538) 27376: Concrete Building Assembler/Techni marissa ID = [id number] for William Jacksonriela POCT-GLUCOSE [id number] 07:50:42 Test Item Value Reference Range Interpretation Comments POC-GLUCOSE METER 200 mg/dL 70-110 H : TESTED A T [facility] 6720 (BEAKER) (test code = [facility], 1538) 22703: Concrete Building Assembler/Techni marissa ID = [id number] for Sis Perez POCT-GLUCOSE [id number] 06:27:55 Test Item Value Reference Range Interpretation Comments POC-GLUCOSE METER 185 mg/dL 70-110 H : TESTED A T [facility] 6720 (BEAKER) (test code = [facility], 1538) 71678: Concrete Building Assembler/Techni marissa ID = [id number] for Jamila Orozco CALCIUM, [id number] 04:32:04 Test Item Value Reference Range Interpretation Comments CALCIUM IONIZED (BEAKER) (test 1.04 mmol/L 1.12-1.27 L code = 698) PH, BLOOD (BEAKER) (test code = 7.57 1810) COMPREHENSIVE METABOLIC [id number] 04:27:07 Test Item Value Reference Range Interpretation Comments TOTAL PROTEIN 5.7 gm/dL 6.0-8.3 L (BEAKER) (test code = 770) ALBUMIN (BEAKER) 2.4 g/dL 3.5-5.0 L (test code = 1145) ALKALINE 148 U/L 40-150 PHOSPHATASE (BEAKER) (test code = 346) BILIRUBIN TOTAL 0.8 mg/dL 0.2-1.2 (BEAKER) (test code = 377) SODIUM (BEAKER) 143 meq/L 136-145 (test code = 381) POTASSIUM (BEAKER) 3.4 meq/L 3.5-5.1 L (test code = 379) CHLORIDE (BEAKER) 103 meq/L 98-107 (test code = 382) CO2 (BEAKER) (test 28 meq/L 22-29 code = 355) BLOOD UREA 21 mg/dL 7-21 NITROGEN (BEAKER) (test code = 354) CREATININE 1.16 mg/dL 0.57-1.25 (BEAKER) (test code = 358) GLUCOSE RANDOM 160 mg/dL 70-105 H (BEAKER) (test code = 652) CALCIUM (BEAKER) 7.9 mg/dL 8.4-10.2 L (test code = 697) AST (SGOT) 45 U/L 5-34 H (BEAKER) (test code = 353) ALT (SGPT) 60 U/L 6-55 H (BEAKER) (test code = 347) EGFR (BEAKER) 73 Interpretatio n of eGFR (test code = 1092) mL/min/1.[address] age Description sq m Result G1 Lucy l or high >=90 G2 Mildly decreased 60-89 G3a Mildl y to moderately 45-5 9 G3b Moderately to s everely 30-44 G4 Severl y decreased 15-29 G5 Kidney failure <15Reported eGF R is based on the CKD-EPI 2020 equation that d oes not use a race coefficientEsti mated GFR is not as accur ate as Creatinine Zuri warner in predicting glom erular filtration rate . Estimated GFR is not appl icable for dialysis patien ts [employer] Building As[employer]er ID - [id number] 04:26:29 Test Item Value Reference Range Interpretation Comments MAGNESIUM (BEAKER) (test code = 2.0 mg/dL 1.6-2.6 627) [employer]er ID - [id number] 04:26:29 Test Item Value Reference Range Interpretation Comments PHOSPHORUS (BEAKER) (test code = 2.5 mg/dL 2.3-4.7 604) [employer] As[employer]er ID - ADMINCBC W/PLT COUNT & AUTO [id number] 04:07:21 Test Item Value Reference Range Interpretation Comments WHITE BLOOD CELL COUNT (BEAKER) 7.5 K/ L 3.5-10.5 (test code = 775) RED BLOOD CELL COUNT (BEAKER) 2.96 M/ L 4.63-6.08 L (test code = 761) HEMOGLOBIN (BEAKER) (test code = 8.4 GM/DL 13.7-17.5 L 410) HEMATOCRIT (BEAKER) (test code = 26.5 % 40.1-51.0 L 411) MEAN CORPUSCULAR VOLUME (BEAKER) 90 fL 79-92 (test code = 753) MEAN CORPUSCULAR HEMOGLOBIN 28.4 pg 25.7-32.2 (BEAKER) (test code = 751) MEAN CORPUSCULAR HEMOGLOBIN CONC 31.7 GM/DL 32.3-36.5 L (BEAKER) (test code = 752) RED CELL DISTRIBUTION WIDTH 15.2 % 11.6-14.4 H (BEAKER) (test code = 412) PLATELET COUNT (BEAKER) (test 179 K/CU MM 150-450 code = 756) MEAN PLATELET VOLUME (BEAKER) 10.1 fL 9.4-12.4 (test code = 754) NUCLEATED RED BLOOD CELLS 0 /100 WBC 0-0 (BEAKER) (test code = 413) NEUTROPHILS RELATIVE PERCENT 63 % (BEAKER) (test code = 429) LYMPHOCYTES RELATIVE PERCENT 23 % (BEAKER) (test code = 430) MONOCYTES RELATIVE PERCENT 7 % (BEAKER) (test code = 431) EOSINOPHILS RELATIVE PERCENT 6 % (BEAKER) (test code = 432) BASOPHILS RELATIVE PERCENT 1 % (BEAKER) (test code = 437) NEUTROPHILS ABSOLUTE COUNT 4.72 K/ L 1.78-5.38 (BEAKER) (test code = 670) LYMPHOCYTES ABSOLUTE COUNT 1.75 K/ L 1.32-3.57 (BEAKER) (test code = 414) MONOCYTES ABSOLUTE COUNT (BEAKER) 0.54 K/ L 0.30-0.82 (test code = 415) EOSINOPHILS ABSOLUTE COUNT 0.43 K/ L 0.04-0.54 (BEAKER) (test code = 416) BASOPHILS ABSOLUTE COUNT (BEAKER) 0.04 K/ L 0.01-0.08 (test code = 417) IMMATURE GRANULOCYTES-RELATIVE 0.30 % 0.00-1.00 PERCENT (BEAKER) (test code = 2801) POCT-GLUCOSE [id number] 02:05:58 Test Item Value Reference Range Interpretation Comments POC-GLUCOSE METER 187 mg/dL 70-110 H : TESTED A T [facility] 6720 (BEAKER) (test code = [facility], 1538) 16205: Concrete Building Assembler/Techni marissa ID = [id number] for Ge rrard, Jamila POCT-GLUCOSE [id number] 00:56:30 Test Item Value Reference Range Interpretation Comments POC-GLUCOSE METER 206 mg/dL 70-110 H : TESTED A T [facility] 6720 (BEAKER) (test code = [facility], 1538) 76122: Concrete Building Assembler/Techni marissa ID = [id number] for Jamila Orozco POCT-GLUCOSE [id number] 23:49:31 Test Item Value Reference Range Interpretation Comments POC-GLUCOSE METER 216 mg/dL 70-110 H : TESTED A T [facility] 6720 (BEAKER) (test code = [facility], 1538) 58159: Concrete Building Assembler/Techni marissa ID = [id number] for Fatemeh Orozcoe POCT-GLUCOSE [id number] 22:55:56 Test Item Value Reference Range Interpretation Comments POC-GLUCOSE METER 207 mg/dL 70-110 H : TESTED A T [facility] 6720 (BEAKER) (test code = [facility], 1538) 16976: Concrete Building Assembler/Techni marissa ID = [id number] for Jamila Orozco [id number] 22:52:06 Test Item Value Reference Range Interpretation Comments GLUCOSE RANDOM (BEAKER) (test code 209 mg/dL 70-105 H = 652) Concrete Building Assembler ID - [id number] 22:52:05 Test Item Value Reference Range Interpretation Comments PHOSPHORUS (BEAKER) (test code = 2.8 mg/dL 2.3-4.7 604) Concrete Building Assembler ID - [id number] 22:52:05 Test Item Value Reference Range Interpretation Comments POTASSIUM (BEAKER) (test code = 3.1 meq/L 3.5-5.1 L 379) Concrete Building Assembler ID - [id number] 22:52:04 Test Item Value Reference Range Interpretation Comments MAGNESIUM (BEAKER) (test code = 1.9 mg/dL 1.6-2.6 627) Concrete Building Assembler ID - ADMINCALCIUM, [id number] 22:24:35 Test Item Value Reference Range Interpretation Comments CALCIUM IONIZED (BEAKER) (test 0.98 mmol/L 1.12-1.27 L code = 698) PH, BLOOD (BEAKER) (test code = 7.60 1810) POCT-GLUCOSE [id number] 20:58:43 Test Item Value Reference Range Interpretation Comments POC-GLUCOSE METER 162 mg/dL 70-110 H : TESTED A T [facility] 6720 (BEAKER) (test code = [facility], 1538) 72105: Concrete Building Assembler/Techni marissa ID = [id number] for Ge rrard, Jamila POCT-GLUCOSE [id number] 19:50:15 Test Item Value Reference Range Interpretation Comments POC-GLUCOSE METER 220 mg/dL 70-110 H : TESTED A T [facility] 6720 (BEAKER) (test code = [facility], 1538) 68288: Concrete Building Assembler/Techni marissa ID = [id number] for Ge rrard, Jamila POCT-GLUCOSE [id number] 18:33:45 Test Item Value Reference Range Interpretation Comments POC-GLUCOSE METER 253 mg/dL 70-110 H : TESTED A T [facility] 6720 (BEAKER) (test code = [facility], 1538) 40573: Concrete Building Assembler/Techni marissa ID = [id number] for Ge rrard, Jamila POCT-GLUCOSE [id number] 17:21:51 Test Item Value Reference Range Interpretation Comments POC-GLUCOSE METER 293 mg/dL 70-110 H : TESTED A T [facility] 6720 (BEAKER) (test code = [facility], [facility]8) 43104: Concrete Building Assembler/Techni marissa ID = [id number] for Ge rrard, Jamila POCT-GLUCOSE [id number] 16:41:30 Test Item Value Reference Range Interpretation Comments POC-GLUCOSE METER 281 mg/dL 70-110 H : TESTED A T [facility] 6720 (BEAKER) (test code = [facility], [facility]8) 47072: Concrete Building Assembler/Techni marissa ID = [id number] for Speedy mckinnondineshDionna OXYGEN SATURATION, [id number] 16:22:33 Test Item Value Reference Range Interpretation Comments O2 SATURATION (MEASURED) (BEAKER) 79.8 % (test code = 1455) POCT-GLUCOSE [id number] 15:59:49 Test Item Value Reference Range Interpretation Comments POC-GLUCOSE METER 260 mg/dL 70-110 H : TESTED A T [facility] 6720 (BEAKER) (test code = [facility], [facility]8) 27972: Concrete Building Assembler/Techni marissa ID = [id number] for DE MICHELLEADO, RAHEEM XR CHEST 1 VIEW PORTABLE / [id number] 12:16:13 [facility] : 1965 Sex: MXR CHEST 1 VIEW PORTABLE / BEDSIDEINDICATION: daily morningCOMPARISON: Prior day's examTECHNIQUE: Portablefrontal view(s) of the chest. FINDINGS: Support Lines and Devices: Stable. Lungs and pleura: Unchanged airspace and pleural opacities. Nopneumothorax identified.Heart and mediastinum: Stable contours. Stable surgical changes.Additional findings: None.IMPRESSION:1. No significant change from prior exam.2. Bilateral airspace and interstitial opacities, which may representatelectasis, pneumonia or pulmonary edema.Electronically Signed By: Keyur Johnson02/09/2023 12:18 CDTWorkstation Name: [id number] METER 2023-02-09 12:01:53 Test Item Value Reference Range Interpretation Comments POC-GLUCOSE METER 160 mg/dL 70-110 H : TESTED A T [facility] 6720 (Navut) (test code = [facility] Guard[facility], 1538) 29720: Concrete Building Assembler/Techni marissa ID = [id number] for Tj Ya POCT-GLUCOSE [id number] 11:32:08 Test Item Value Reference Range Interpretation Comments POC-GLUCOSE METER 176 mg/dL 70-110 H : TESTED A T [facility] 6720 (Navut) (test code = [facility], 1538) 70412: Concrete Building Assembler/Techni marissa ID = [id number] for Placido Orozcoabelle POCT-GLUCOSE [id number] 09:37:24 Test Item Value Reference Range Interpretation Comments POC-GLUCOSE METER 229 mg/dL 70-110 H : TESTED A T [facility] 6720 (Navut) (test code = [facility], 1538) 80069: Concrete Building Assembler/Techni marissa ID = [id number] for Ge rrard, Jamila POCT-GLUCOSE [id number] 08:34:38 Test Item Value Reference Range Interpretation Comments POC-GLUCOSE METER 245 mg/dL 70-110 H : TESTED A T [facility] 6720 (BEAKER) (test code = [facility], 1538) 82991: Concrete Building Assembler/Techni marissa ID = [id number] for Ge rrard, Jamila POCT-GLUCOSE [id number] 06:12:35 Test Item Value Reference Range Interpretation Comments POC-GLUCOSE METER 240 mg/dL 70-110 H : TESTED A T [facility] 6720 (BEAKER) (test code = [facility], [facility]8) 42749: Concrete Building Assembler/Techni marissa ID = [id number] for Re ashish, Oswaldo POCT-GLUCOSE [id number] 05:23:09 Test Item Value Reference Range Interpretation Comments POC-GLUCOSE METER 243 mg/dL 70-110 H : TESTED A T [facility] 6720 (BEAKER) (test code = [facility], [facility]8) 75767: Concrete Building Assembler/Techni marissa ID = [id number] for Re ashish, Oswaldo POCT-GLUCOSE [id number] 04:08:48 Test Item Value Reference Range Interpretation Comments POC-GLUCOSE METER 152 mg/dL 70-110 H : TESTED A T [facility] 6720 (BEAKER) (test code = [facility], [facility]8) 85030: Concrete Building Assembler/Techni marissa ID = [id number] for Re ashish, Oswaldo POCT-GLUCOSE [id number] 03:17:25 Test Item Value Reference Range Interpretation Comments POC-GLUCOSE METER 164 mg/dL 70-110 H : TESTED A T [facility] 6720 (BEAKER) (test code = [facility], [facility]8) 95201: Concrete Building Assembler/Techni marissa ID = [id number] for Re ashish, Oswaldo (CELLAVISION MANUAL DIFF)2023-02-09 03:15:23 Test Item Value Reference Range Interpretation Comments NEUTROPHILS - REL 80 % (CELLAVISION)(BEAKER) (test code = 2816) LYMPHOCYTES - REL 13 % (CELLAVISION)(BEAKER) (test code = 2817) MONOCYTES - REL 6 % (CELLAVISION)(BEAKER) (test code = 2818) ATYPICAL LYMPHOCYTES - REL 1 % 0-0 H (CELLAVISION)(BEAKER) (test code = 2829) NEUTROPHILS - ABS 8.08 K/ul 1.78-5.38 H (CELLAVISION)(BEAKER) (test code = 2830) LYMPHOCYTES - ABS 1.31 K/ul 1.32-3.57 L (CELLAVISION)(BEAKER) (test code = 2831) MONOCYTES - ABS 0.61 K/uL 0.30-0.82 (CELLAVISION)(BEAKER) (test code = 2832) ATYPICAL LYMPHOCYTES - ABS 0.10 K/uL 0.00-0.00 H (CELLAVISION)(BEAKER) (test code = 2858) TOTAL COUNTED (BEAKER) (test code = 100 1351) WBC MORPHOLOGY (BEAKER) (test code Normal = 487) PLT MORPHOLOGY (BEAKER) (test code Normal = 486) POLYCHROMATOPHILLIC RBCS(BEAKER) 1+ few (test code = 478) HYPOCHROMIA (BEAKER) (test code = 1+ few 963) ANISOCYTOSIS (BEAKER) (test code = 1+ few 961) MICROCYTES (BEAKER) (test code = 1+ few 965) POIKILOCYTES (BEAKER) (test code = 1+ few 966) OVALOCYTES (BEAKER) (test code = 1+ few 477) TEAR DROP CELLS (BEAKER) (test code 1+ few = 481) BASOPHILIC STIPPLING (BEAKER) (test Present code = 473) ARTIFACT (CELLAVISION)(BEAKER) Present (test code = 3432) PLATELET CONCENTRATION Adequate (CELLAVISION)(BEAKER) (test code = 3438) Concrete Building Assembler ID - Nicolette Alvarenga comments: Slide comments:CBC W/PLT COUNT & AUTO [id number] 03:15:22 Test Item Value Reference Range Interpretation Comments WHITE BLOOD CELL COUNT (BEAKER) 10.1 K/ L 3.5-10.5 (test code = 775) RED BLOOD CELL COUNT (BEAKER) 2.94 M/ L 4.63-6.08 L (test code = 761) HEMOGLOBIN (BEAKER) (test code = 8.3 GM/DL 13.7-17.5 L 410) HEMATOCRIT (BEAKER) (test code = 26.7 % 40.1-51.0 L 411) MEAN CORPUSCULAR VOLUME (BEAKER) 91 fL 79-92 (test code = 753) MEAN CORPUSCULAR HEMOGLOBIN 28.2 pg 25.7-32.2 (BEAKER) (test code = 751) MEAN CORPUSCULAR HEMOGLOBIN CONC 31.1 GM/DL 32.3-36.5 L (BEAKER) (test code = 752) RED CELL DISTRIBUTION WIDTH 15.4 % 11.6-14.4 H (BEAKER) (test code = 412) PLATELET COUNT (BEAKER) (test 169 K/CU MM 150-450 code = 756) MEAN PLATELET VOLUME (BEAKER) 10.6 fL 9.4-12.4 (test code = 754) NUCLEATED RED BLOOD CELLS 0 /100 WBC 0-0 (BEAKER) (test code = 413) COMPREHENSIVE METABOLIC [id number] 02:57:40 Test Item Value Reference Range Interpretation Comments TOTAL PROTEIN 5.8 gm/dL 6.0-8.3 L (BEAKER) (test code = 770) ALBUMIN (BEAKER) 2.5 g/dL 3.5-5.0 L (test code = 1145) ALKALINE 108 U/L 40-150 PHOSPHATASE (BEAKER) (test code = 346) BILIRUBIN TOTAL 0.6 mg/dL 0.2-1.2 (BEAKER) (test code = 377) SODIUM (BEAKER) 141 meq/L 136-145 (test code = 381) POTASSIUM (BEAKER) 3.5 meq/L 3.5-5.1 (test code = 379) CHLORIDE (BEAKER) 102 meq/L 98-107 (test code = 382) CO2 (BEAKER) (test 27 meq/L 22-29 code = 355) BLOOD UREA 23 mg/dL 7-21 H NITROGEN (BEAKER) (test code = 354) CREATININE 1.49 mg/dL 0.57-1.25 H (BEAKER) (test code = 358) GLUCOSE RANDOM 225 mg/dL 70-105 H (BEAKER) (test code = 652) CALCIUM (BEAKER) 7.9 mg/dL 8.4-10.2 L (test code = 697) AST (SGOT) 81 U/L 5-34 H (BEAKER) (test code = 353) ALT (SGPT) 82 U/L 6-55 H (BEAKER) (test code = 347) EGFR (BEAKER) 54 Interpretatio n of eGFR (test code = 1092) mL/min/1.[address] age Description sq m Result G1 Lucy l or high >=90 G2 Mildly decreased 60-89 G3a Mildl y to moderately 45-5 9 G3b Moderately to s everely 30-44 G4 Severl y decreased 15-29 G5 Kidney failure <15Reported eGF R is based on the CKD-EPI 2020 equation that d oes not use a race coefficientEsti mated GFR is not as accur ate as Creatinine Zuri warner in predicting glom erular filtration rate . Estimated GFR is not appl icable for dialysis patien ts Concrete Building Assembler ID - [id number] 02:49:38 Test Item Value Reference Range Interpretation Comments PHOSPHORUS (BEAKER) (test code = 2.4 mg/dL 2.3-4.7 604) Concrete Building Assembler ID - [id number] 02:49:37 Test Item Value Reference Range Interpretation Comments MAGNESIUM (BEAKER) (test code = 2.0 mg/dL 1.6-2.6 627) Concrete Building Assembler ID - ADMINPOCT-GLUCOSE [id number] 02:09:36 Test Item Value Reference Range Interpretation Comments POC-GLUCOSE METER 210 mg/dL 70-110 H : TESTED A T [facility] 6720 (BEAKER) (test code = [facility] Kleo [facility], 1538) 18525: Concrete Building Assembler/Techni marissa ID = [id number] for Re ashish, Oswaldo POCT-GLUCOSE [id number] 01:06:03 Test Item Value Reference Range Interpretation Comments POC-GLUCOSE METER 221 mg/dL 70-110 H : TESTED A T [facility] 6720 (BEAKER) (test code = [facility] Kle[facility], 1538) 44607: Concrete Building Assembler/Techni marissa ID = [id number] for Re ashish, Oswaldo POCT-GLUCOSE [id number] 23:49:51 Test Item Value Reference Range Interpretation Comments POC-GLUCOSE METER 237 mg/dL 70-110 H : TESTED A T [facility] 6720 (BEAKER) (test code = [facility], [facility]8) 80182: Concrete Building Assembler/Techni marissa ID = [id number] for Re ashish, Oswaldo POCT-GLUCOSE [id number] 22:49:54 Test Item Value Reference Range Interpretation Comments POC-GLUCOSE METER 164 mg/dL 70-110 H : TESTED A T [facility] 6720 (BEAKER) (test code = [facility], [facility]8) 39729: Concrete Building Assembler/Techni marissa ID = [id number] for Re ashish, Oswaldo POCT-GLUCOSE [id number] 22:17:40 Test Item Value Reference Range Interpretation Comments POC-GLUCOSE METER 115 mg/dL 70-110 H : TESTED A T [facility] 6720 (BEAKER) (test code = [facility], [facility]8) 43099: Concrete Building Assembler/Techni marissa ID = [id number] for Re ashish, Oswaldo POCT-GLUCOSE [id number] 21:17:47 Test Item Value Reference Range Interpretation Comments POC-GLUCOSE METER 153 mg/dL 70-110 H : TESTED A T [facility] 6720 (BEAKER) (test code = [facility], [facility]8) 35776: Concrete Building Assembler/Techni marissa ID = [id number] for Re ashish, Oswaldo POCT-GLUCOSE [id number] 20:16:59 Test Item Value Reference Range Interpretation Comments POC-GLUCOSE METER 166 mg/dL 70-110 H : TESTED A T [facility] 6720 (BEAKER) (test code = [facility], [facility]8) 72388: Concrete Building Assembler/Techni marissa ID = [id number] for Re ashish, Oswaldo POCT-GLUCOSE [id number] 16:23:25 Test Item Value Reference Range Interpretation Comments POC-GLUCOSE METER 205 mg/dL 70-110 H : TESTED A T [facility] 6720 (BEAKER) (test code = [facility], [facility]8) 22631: Concrete Building Assembler/Techni marissa ID = [id number] for Rhonda Machuca POCT-GLUCOSE [id number] 14:34:02 Test Item Value Reference Range Interpretation Comments POC-GLUCOSE METER 204 mg/dL 70-110 H : TESTED A T [facility] 6720 (BEAKER) (test code = [facility], 1538) 97381: Concrete Building Assembler/Techni marissa ID = [id number] for Rhonda Machuca POCT-GLUCOSE [id number] 13:41:04 Test Item Value Reference Range Interpretation Comments POC-GLUCOSE METER 171 mg/dL 70-110 H : TESTED A T [facility] 6720 (BEAKER) (test code = [facility], 1538) 70337: Concrete Building Assembler/Techni marissa ID = [id number] for Rhonda Machuca POCT-GLUCOSE [id number] 12:55:18 Test Item Value Reference Range Interpretation Comments POC-GLUCOSE METER 144 mg/dL 70-110 H : TESTED A T [facility] 6720 (BEAKER) (test code = 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, 1538) 38983: Concrete Building Assembler/Techni marissa ID = [id number] for Rhonda Machuca POCT-GLUCOSE [id number] 08:42:03 Test Item Value Reference Range Interpretation Comments POC-GLUCOSE METER 176 mg/dL 70-110 H : TESTED A T [facility] 6720 (BEAKER) (test code = [facility], 1538) 42775: Concrete Building Assembler/Techni marissa ID = [id number] for Rhonda Machuca XR CHEST 1 VIEW PORTABLE / [id number] 08:20:58 [facility] 1965 Sex: MXR CHEST 1 VIEW PORTABLE / BEDSIDEINDICATION: daily morningCOMPARISON: Prior day's examTECHNIQUE: Portablefrontal view(s) of the chest. FINDINGS: Support Lines and Devices: Stable. Lungs and pleura: Unchanged airspace and pleural opacities. Nopneumothorax identified.Heart and mediastinum: Stable contours. Stable surgical changes.Additional findings: None.IMPRESSION:1. No significant change from prior exam.2. Bilateral airspace and interstitial opacities, which may representatelectasis, pneumonia or pulmonary edema.Electronically Signed By: Keyur Johnson02/08/2023 08:23 CDTWorkstation Name: [id number] METER 2023-02-08 06:35:08 Test Item Value Reference Range Interpretation Comments POC-GLUCOSE METER 175 mg/dL 70-110 H : Notified RN/: EMIGDIO) (test code = TESTED AT [place] [address]) [facility], [address]: Concrete Building Assembler/Techni marissa ID = [id number] for Munir Alvarez POCT-GLUCOSE [id number] 04:41:39 Test Item Value Reference Range Interpretation Comments POC-GLUCOSE METER 158 mg/dL 70-110 H : Notified RN/: EMIGDIO) (test code = TESTED AT [place] [id number] 1538) [facility], [address]: Concrete Building Assembler/Techni marissa ID = [id number] for Munir Alvarez [id number] 03:28:20 Test Item Value Reference Range Interpretation Comments PHOSPHORUS (SUNG) (test code = 3.5 mg/dL 2.3-4.7 604) Concrete Building Assembler ID - [id number] 03:28:19 Test Item Value Reference Range Interpretation Comments MAGNESIUM (BEAKER) (test code = 2.1 mg/dL 1.6-2.6 627) Concrete Building Assembler ID - MARCOCOMPREHENSIVE METABOLIC [id number] 03:28:18 Test Item Value Reference Range Interpretation Comments TOTAL PROTEIN 6.7 gm/dL 6.0-8.3 (BEAKER) (test code = 770) ALBUMIN (BEAKER) 2.8 g/dL 3.5-5.0 L (test code = 1145) ALKALINE 135 U/L 40-150 PHOSPHATASE (BEAKER) (test code = 346) BILIRUBIN TOTAL 0.8 mg/dL 0.2-1.2 (BEAKER) (test code = 377) SODIUM (BEAKER) 143 meq/L 136-145 (test code = 381) POTASSIUM (BEAKER) 3.8 meq/L 3.5-5.1 (test code = 379) CHLORIDE (BEAKER) 103 meq/L 98-107 (test code = 382) CO2 (BEAKER) (test 28 meq/L 22-29 code = 355) BLOOD UREA 24 mg/dL 7-21 H NITROGEN (BEAKER) (test code = 354) CREATININE 1.50 mg/dL 0.57-1.25 H (BEAKER) (test code = 358) GLUCOSE RANDOM 164 mg/dL 70-105 H (BEAKER) (test code = 652) CALCIUM (BEAKER) 8.3 mg/dL 8.4-10.2 L (test code = 697) AST (SGOT) 123 U/L 5-34 H (BEAKER) (test code = 353) ALT (SGPT) 107 U/L 6-55 H (BEAKER) (test code = 347) EGFR (BEAKER) 54 Interpretatio n of eGFR (test code = 1092) mL/min/1.[address] age Description sq m Result G1 Lucy l or high >=90 G2 Mildly decreased 60-89 G3a Mildl y to moderately 45-5 9 G3b Moderately to s everely 30-44 G4 Severl y decreased 15-29 G5 Kidney failure <15Reported eGF R is based on the CKD-EPI 202 equation that d oes not use a race coefficientEsti mated GFR is not as accur ate as Creatinine Zuri warner in predicting glom erular filtration rate . Estimated GFR is not appl icable for dialysis patien ts Concrete Building Assembler ID - MARCOBLOOD GAS, [id number] 03:25:20 Test Item Value Reference Range Interpretation Comments PH ARTERIAL (BEAKER) (test code = 7.40 7.35-7.45 383) PCO2 ARTERIAL (BEAKER) (test code 50 mm Hg 35-45 H = 384) PO2 ARTERIAL (BEAKER) (test code = 143 mm Hg 80-90 H 385) O2 SATURATION ARTERIAL (BEAKER) 98.8 % 96.0-97.0 H (test code = 386) HCO3 ARTERIAL (BEAKER) (test code 30 mmol/L 21-29 H = 388) BASE EXCESS ARTERIAL (BEAKER) 4.8 mmol/L -2.0-3.0 H (test code = 387) PATIENT TEMPERATURE (BEAKER) (test 37.5 code = 1818) FIO2 (BEAKER) (test code = 1819) 40.0 CBC W/PLT COUNT & AUTO [id number] 03:18:05 Test Item Value Reference Range Interpretation Comments WHITE BLOOD CELL COUNT (BEAKER) 13.3 K/ L 3.5-10.5 H (test code = 775) RED BLOOD CELL COUNT (BEAKER) 3.61 M/ L 4.63-6.08 L (test code = 761) HEMOGLOBIN (BEAKER) (test code = 10.2 GM/DL 13.7-17.5 L 410) HEMATOCRIT (BEAKER) (test code = 33.4 % 40.1-51.0 L 411) MEAN CORPUSCULAR VOLUME (BEAKER) 93 fL 79-92 H (test code = 753) MEAN CORPUSCULAR HEMOGLOBIN 28.3 pg 25.7-32.2 (BEAKER) (test code = 751) MEAN CORPUSCULAR HEMOGLOBIN CONC 30.5 GM/DL 32.3-36.5 L (BEAKER) (test code = 752) RED CELL DISTRIBUTION WIDTH 16.2 % 11.6-14.4 H (BEAKER) (test code = 412) PLATELET COUNT (BEAKER) (test 220 K/CU MM 150-450 code = 756) MEAN PLATELET VOLUME (BEAKER) 10.9 fL 9.4-12.4 (test code = 754) NUCLEATED RED BLOOD CELLS 0 /100 WBC 0-0 (BEAKER) (test code = 413) NEUTROPHILS RELATIVE PERCENT 84 % (BEAKER) (test code = 429) LYMPHOCYTES RELATIVE PERCENT 7 % (BEAKER) (test code = 430) MONOCYTES RELATIVE PERCENT 5 % (BEAKER) (test code = 431) EOSINOPHILS RELATIVE PERCENT 3 % (BEAKER) (test code = 432) BASOPHILS RELATIVE PERCENT 0 % (BEAKER) (test code = 437) NEUTROPHILS ABSOLUTE COUNT 11.14 K/ L 1.78-5.38 H (BEAKER) (test code = 670) LYMPHOCYTES ABSOLUTE COUNT 0.95 K/ L 1.32-3.57 L (BEAKER) (test code = 414) MONOCYTES ABSOLUTE COUNT (BEAKER) 0.62 K/ L 0.30-0.82 (test code = 415) EOSINOPHILS ABSOLUTE COUNT 0.42 K/ L 0.04-0.54 (BEAKER) (test code = 416) BASOPHILS ABSOLUTE COUNT (BEAKER) 0.05 K/ L 0.01-0.08 (test code = 417) IMMATURE GRANULOCYTES-RELATIVE 0.50 % 0.00-1.00 PERCENT (BEAKER) (test code = 2801) POCT-GLUCOSE [id number] 02:43:23 Test Item Value Reference Range Interpretation Comments POC-GLUCOSE METER 159 mg/dL 70-110 H : TESTED A T [facility] 67 ([facility]) (test code = [facility], 153) [id number]: Concrete Building Assembler/Techni marissa ID = [id number] for Munir Alvarez POCT-GLUCOSE [id number] 00:13:41 Test Item Value Reference Range Interpretation Comments POC-GLUCOSE METER 159 mg/dL 70-110 H : Notified RN/MD: (SUNG) (test code = TESTED AT [place] [id number] 153) [facility], [id number]: Concrete Building Assembler/Techni marissa ID = [id number] for Munir Alvarez POCT-GLUCOSE [id number] 21:39:19 Test Item Value Reference Range Interpretation Comments POC-GLUCOSE METER 158 mg/dL 70-110 H : Notified RN/MD: (SUNG) (test code = TESTED AT [place] [id number]) [facility], [id number]: Con[employer] Building Assembler/Techni marissa ID = [id number] for Munir Alvarez XR ABDOMEN/KUB 1 VIEW [id number] 20:29:08 [facility] 1965 Sex: MEXAM/TECHNIQUE: XR ABDOMEN/KUB 1 VIEW PORTABLEINDICATION: abd pain and distentionCOMPARISON: 02/06/2023.FINDINGS: Feeding tube terminates in the third portion of duodenum. Nonspecificbowel gas pattern. No acute osseous process. A catheter projects overthe bladder. Hazy pulmonary opacities.IMPRESSION:Nonspecific bowel gas pattern.Electronically Signed By: Dg Oneil02/07/2023 20:31 CDTWorkstation Name: [id number] 18:22:19 Test Item Value Reference Range Interpretation Comments POC-GLUCOSE METER 151 mg/dL 70-110 H : TESTED A T [facility] 6720 ([place]) (test code = [facility], 1538) [id number]: Concrete Building Assembler/Techni marissa ID = [id number] for Ge rrard, Jamila POCT-GLUCOSE [id number] 16:28:38 Test Item Value Reference Range Interpretation Comments POC-GLUCOSE METER 163 mg/dL 70-110 H : TESTED A T [facility] [address] ([place]) (test code = [facility], 1538) [address]: Concrete Building Assembler/Techni marissa ID = [id number] for Ge rrard, Jamila POCT-GLUCOSE [id number] 14:30:53 Test Item Value Reference Range Interpretation Comments POC-GLUCOSE METER 164 mg/dL 70-110 H : TESTED A T [facility] 6720 (BEAKER) (test code = [place], 1538) 285[address]: Concrete Building Assembler/Techni marissa ID = [id number] for Jamila Orozco BASIC METABOLIC [id number] 14:29:48 Test Item Value Reference Range Interpretation Comments SODIUM (BEAKER) 142 meq/L 136-145 (test code = 381) POTASSIUM 4.0 meq/L 3.5-5.1 (BEAKER) (test code = 379) CHLORIDE (BEAKER) 107 meq/L 98-107 (test code = 382) CO2 (BEAKER) 27 meq/L 22-29 (test code = 355) BLOOD UREA 27 mg/dL 7-21 H NITROGEN (BEAKER) (test code = 354) CREATININE 1.31 mg/dL 0.57-1.25 H (BEAKER) (test code = 358) GLUCOSE RANDOM 200 mg/dL 70-105 H (BEAKER) (test code = 652) CALCIUM (BEAKER) 7.7 mg/dL 8.4-10.2 L (test code = 697) EGFR (BEAKER) 63 Interpretati on of eGFR (test code = mL/min/1.73 values Stage De scription 1092) sq m Result G1 Lucy l or high >=90 G2 Mildly decreased 60-89 G3a Mildl y to moderately 45- 59 G3b Moderately to s everely 30-44 G4 Severl y decreased 15-29 G5 Kidney failure <15Reported eGF R is based on the CKD-EPI 2020 equation that d oes not use a race coefficientEsti mated GFR is not as accur ate as Creatinine Zuri hylton in predicting glom erular filtration rate . Estimated GFR is not appl icable for dialysis patien ts Concrete Building Assembler ID - ADMINCBC (HEMOGRAM ONLY)2023-02-07 14:10:25 Test Item Value Reference Range Interpretation Comments WHITE BLOOD CELL COUNT 11.8 K/ L 3.5-10.5 H (BEAKER) (test code = 775) RED BLOOD CELL COUNT 3.09 M/ L 4.63-6.08 L (BEAKER) (test code = 761) HEMOGLOBIN (BEAKER) 8.8 GM/DL 13.7-17.5 L (test code = 410) HEMATOCRIT (BEAKER) 27.7 % 40.1-51.0 L (test code = 411) MEAN CORPUSCULAR 90 fL 79-92 Discordant results VOLUME (BEAKER) (test compar ed to code = 753) previous, clini marck correlation required. MEAN CORPUSCULAR 28.5 pg 25.7-32.2 HEMOGLOBIN (BEAKER) (test code = 751) MEAN CORPUSCULAR 31.8 GM/DL 32.3-36.5 L HEMOGLOBIN CONC (BEAKER) (test code = 752) RED CELL DISTRIBUTION 16.0 % 11.6-14.4 H WIDTH (BEAKER) (test code = 412) PLATELET COUNT 185 K/CU MM 150-450 (BEAKER) (test code = 756) MEAN PLATELET VOLUME 10.1 fL 9.4-12.4 (BEAKER) (test code = 754) NUCLEATED RED BLOOD 0 /100 WBC 0-0 CELLS (BEAKER) (test code = 413) BLOOD GAS, [id number] 12:29:20 Test Item Value Reference Range Interpretation Comments PH ARTERIAL (BEAKER) (test code = 7.45 7.35-7.45 383) PCO2 ARTERIAL (BEAKER) (test code 41 mm Hg 35-45 = 384) PO2 ARTERIAL (BEAKER) (test code = 165 mm Hg 80-90 H 385) O2 SATURATION ARTERIAL (BEAKER) 99.2 % 96.0-97.0 H (test code = 386) HCO3 ARTERIAL (BEAKER) (test code 28 mmol/L 21-29 = 388) BASE EXCESS ARTERIAL (BEAKER) 3.7 mmol/L -2.0-3.0 H (test code = 387) PATIENT TEMPERATURE (BEAKER) (test 37.5 code = 1818) FIO2 (BEAKER) (test code = 1819) 40.0 POCT-GLUCOSE [id number] 12:29:04 Test Item Value Reference Range Interpretation Comments POC-GLUCOSE METER 176 mg/dL 70-110 H : TESTED A T [facility] 6720 (BEAKER) (test code = [place], 1538) 515[address]: Concrete Building Assembler/Techni marissa ID = [id number] for Dalton swansonshelbie Jamila POCT-GLUCOSE [id number] 10:40:52 Test Item Value Reference Range Interpretation Comments POC-GLUCOSE METER 182 mg/dL 70-110 H : TESTED A T [facility] 6720 (BEAKER) (test code = [facility], 1538) 70316: Concrete Building Assembler/Techni marissa ID = [id number] for Ge rrard, Jamila POCT-GLUCOSE [id number] 09:32:22 Test Item Value Reference Range Interpretation Comments POC-GLUCOSE METER 167 mg/dL 70-110 H : TESTED A T [facility] 6720 (BEAKER) (test code = [facility], 1538) 17679: Concrete Building Assembler/Techni marissa ID = [id number] for Ge rrard, Jamila POCT-GLUCOSE [id number] 08:25:35 Test Item Value Reference Range Interpretation Comments POC-GLUCOSE METER 156 mg/dL 70-110 H : TESTED A T [facility] 6720 (BEAKER) (test code = [facility], 1538) 47730: Concrete Building Assembler/Techni marissa ID = [id number] for Ge rrard, Jamila POCT-GLUCOSE [id number] 08:00:30 Test Item Value Reference Range Interpretation Comments POC-GLUCOSE METER 173 mg/dL 70-110 H : TESTED A T [facility] 6720 (BEAKER) (test code = [facility], 1538) 21421: Concrete Building Assembler/Techni marissa ID = [id number] for STEFAN JAVIER XR CHEST 1 VIEW PORTABLE / [id number] 07:44:01 [facility] : 1965 Sex: MXR CHEST 1 VIEW PORTABLE / BEDSIDEINDICATION: daily morningCOMPARISON: Prior day's examFINDINGS: Portable frontal view of the chest. IMPRESSION:Support Lines: Sheath tip overlies SVC. Two left-sided chest tubes.Feeding tube descends below the diaphragm. Lungs and pleura: Increased bilateral airspace opacities. No significantpneumothorax.Heart and mediastinum: Stable contours. Stable surgical changes.Additional findings: None.Electronically Signed By: Mavis Vinson02/07/2023 07:46 CDTWorkstation Name: [id number] METER 2023-02-07 05:36:06 Test Item Value Reference Range Interpretation Comments POC-GLUCOSE METER 163 mg/dL 70-110 H : TESTED A T [facility] 6720 (BEAKER) (test code = [facility], 1538) 62745: Concrete Building Assembler/Techni marissa ID = [id number] for AKHIONBARE, STEFAN TH POCT-GLUCOSE [id number] 05:18:14 Test Item Value Reference Range Interpretation Comments POC-GLUCOSE METER 177 mg/dL 70-110 H : TESTED A T [facility] 6720 (BEAKER) (test code = [facility], 1538) 63167: Concrete Building Assembler/Techni marissa ID = [id number] for AKHIONBARE, STEFAN TH POCT-GLUCOSE [id number] 05:05:42 Test Item Value Reference Range Interpretation Comments POC-GLUCOSE METER 177 mg/dL 70-110 H : TESTED A T [facility] 6720 (BEAKER) (test code = [facility], 1538) 96385: Concrete Building Assembler/Techni marissa ID = [id number] for AKHIONBARE, STEFAN TH OXYGEN SATURATION, [id number] 04:48:50 Test Item Value Reference Range Interpretation Comments O2 SATURATION (MEASURED) (BEAKER) 86.3 % (test code = 1455) COMPREHENSIVE METABOLIC [id number] 04:04:09 Test Item Value Reference Range Interpretation Comments TOTAL PROTEIN 5.7 gm/dL 6.0-8.3 L Specimen sligh tly (BEAKER) (test hemolyzed code = 770) ALBUMIN (BEAKER) 2.3 g/dL 3.5-5.0 L Specimen sl ightly (test code = 1145) hemolyzed ALKALINE 94 U/L 40-150 PHOSPHATASE (BEAKER) (test code = 346) BILIRUBIN TOTAL 0.6 mg/dL 0.2-1.2 Specimen sli ghtly (BEAKER) (test hemolyzed code = 377) SODIUM (BEAKER) 140 meq/L 136-145 (test code = 381) POTASSIUM (BEAKER) 4.4 meq/L 3.5-5.1 Specimen slightly (test code = 379) hemolyzed CHLORIDE (BEAKER) 109 meq/L 98-107 H (test code = 382) CO2 (BEAKER) (test 20 meq/L 22-29 L code = 355) BLOOD UREA 30 mg/dL 7-21 H NITROGEN (BEAKER) (test code = 354) CREATININE 1.52 mg/dL 0.57-1.25 H Specimen slight ly (BEAKER) (test hemolyzed code = 358) GLUCOSE RANDOM 198 mg/dL 70-105 H (BEAKER) (test code = 652) CALCIUM (BEAKER) 7.8 mg/dL 8.4-10.2 L (test code = 697) AST (SGOT) 95 U/L 5-34 H Specimen slight ly (BEAKER) (test hemolyzed code = 353) ALT (SGPT) 80 U/L 6-55 H Specimen slight ly (BEAKER) (test hemolyzed code = 347) EGFR (BEAKER) 53 Interpretatio n of eGFR (test code = 1092) mL/min/1.[address] age Description sq m Result G1 Lucy l or high >=90 G2 Mildly decreased 60-89 G3a Mildl y to moderately 45-5 9 G3b Moderately to s everely 30-44 G4 Severl y decreased 15-29 G5 Kidney failure <15Reported eGF R is based on the CKD-EPI 2021 equation that d oes not use a race coefficientEsti mated GFR is not as accur ate as Creatinine Zuri warner in predicting glom erular filtration rate . Estimated GFR is not appl icable for dialysis patien ts Concrete Building Assembler ID - [id number] 04:02:42 Test Item Value Reference Range Interpretation Comments PHOSPHORUS (BEAKER) 3.7 mg/dL 2.3-4.7 Specimen slightly (test code = 604) hemolyzed Concrete Building Assembler ID - [id number] 04:02:41 Test Item Value Reference Range Interpretation Comments MAGNESIUM (BEAKER) 2.2 mg/dL 1.6-2.6 Specimen slightly (test code = 627) hemolyzed Concrete Building Assembler ID - ADMINCBC W/PLT COUNT & AUTO [id number] 03:53:02 Test Item Value Reference Range Interpretation Comments WHITE BLOOD CELL COUNT 13.0 K/ L 3.5-10.5 H (BEAKER) (test code = 775) RED BLOOD CELL COUNT 2.86 M/ L 4.63-6.08 L (BEAKER) (test code = 761) HEMOGLOBIN (BEAKER) 8.1 GM/DL 13.7-17.5 L (test code = 410) HEMATOCRIT (BEAKER) 26.8 % 40.1-51.0 L (test code = 411) MEAN CORPUSCULAR 94 fL 79-92 H Discordant results VOLUME (BEAKER) (test compar ed to code = 753) previous, clini mrack correlation required. MEAN CORPUSCULAR 28.3 pg 25.7-32.2 HEMOGLOBIN (BEAKER) (test code = 751) MEAN CORPUSCULAR 30.2 GM/DL 32.3-36.5 L HEMOGLOBIN CONC (BEAKER) (test code = 752) RED CELL DISTRIBUTION 15.7 % 11.6-14.4 H WIDTH (BEAKER) (test code = 412) PLATELET COUNT 207 K/CU MM 150-450 (BEAKER) (test code = 756) MEAN PLATELET VOLUME 10.7 fL 9.4-12.4 (BEAKER) (test code = 754) NUCLEATED RED BLOOD 0 /100 WBC 0-0 CELLS (BEAKER) (test code = 413) NEUTROPHILS RELATIVE 68 % PERCENT (BEAKER) (test code = 429) LYMPHOCYTES RELATIVE 14 % PERCENT (BEAKER) (test code = 430) MONOCYTES RELATIVE 11 % PERCENT (BEAKER) (test code = 431) EOSINOPHILS RELATIVE 7 % PERCENT (BEAKER) (test code = 432) BASOPHILS RELATIVE 1 % PERCENT (BEAKER) (test code = 437) NEUTROPHILS ABSOLUTE 8.77 K/ L 1.78-5.38 H COUNT (BEAKER) (test code = 670) LYMPHOCYTES ABSOLUTE 1.77 K/ L 1.32-3.57 COUNT (BEAKER) (test code = 414) MONOCYTES ABSOLUTE 1.41 K/ L 0.30-0.82 H COUNT (BEAKER) (test code = 415) EOSINOPHILS ABSOLUTE 0.86 K/ L 0.04-0.54 H COUNT (BEAKER) (test code = 416) BASOPHILS ABSOLUTE 0.08 K/ L 0.01-0.08 COUNT (BEAKER) (test code = 417) IMMATURE 0.50 % 0.00-1.00 GRANULOCYTES-RELATIVE PERCENT (BEAKER) (test code = 2801) [id number] 03:52:33 Test Item Value Reference Range Interpretation Comments PROTIME (BEAKER) (test 16.4 seconds 11.9-14.2 H code = 759) INR (BEAKER) (test 1.35 See_Comment [Automat ed code = 370) message] The sy stem which generated this result transmitted reference range : <=5.90. The reference range was not used to interpret this result as normal/abnormal . PARTIAL THROMBOPLASTIN 34.6 seconds 22.5-36.0 TIME (BEAKER) (test code = 760) RECOMMENDED COUMADIN/WARFARIN INR THERAPY RANGESSTANDARD DOSE: 2.0 - 3.0 Includes: PROPHYLAXIS for venous thrombosis, systemic embolization; TREATMENT for venous thrombosis and/or pulmonary embolus.HIGH RISK: Target INR is 2.5-3.5 for patients with mechanical heart valves.BLOOD GAS, [id number] 03:26:27 Test Item Value Reference Range Interpretation Comments PH ARTERIAL (BEAKER) (test code = 7.38 7.35-7.45 383) PCO2 ARTERIAL (BEAKER) (test code 47 mm Hg 35-45 H = 384) PO2 ARTERIAL (BEAKER) (test code = 182 mm Hg 80-90 H 385) O2 SATURATION ARTERIAL (BEAKER) 99.2 % 96.0-97.0 H (test code = 386) HCO3 ARTERIAL (BEAKER) (test code 27 mmol/L 21-29 = 388) BASE EXCESS ARTERIAL (BEAKER) 1.8 mmol/L -2.0-3.0 (test code = 387) PATIENT TEMPERATURE (BEAKER) (test 36.7 code = 1818) FIO2 (BEAKER) (test code = 1819) 40.0 POCT-GLUCOSE [id number] 02:06:29 Test Item Value Reference Range Interpretation Comments POC-GLUCOSE METER 182 mg/dL 70-110 H : TESTED A T [facility] 6720 (BEAKER) (test code = [facility], 1538) 06348: Concrete Building Assembler/Techni marissa ID = [id number] for AKHIONBARE, STEFAN TH POCT-GLUCOSE [id number] 00:08:12 Test Item Value Reference Range Interpretation Comments POC-GLUCOSE METER 202 mg/dL 70-110 H : TESTED A T [facility] 6720 (BEAKER) (test code = [facility], 1538) 48029: Concrete Building Assembler/Techni marissa ID = [id number] for AKHIONBARE, STEFAN TH POCT-GLUCOSE [id number] 00:03:18 Test Item Value Reference Range Interpretation Comments POC-GLUCOSE METER 233 mg/dL 70-110 H : TESTED A T [facility] 6720 (BEAKER) (test code = [facility], 1538) 42564: Concrete Building Assembler/Techni marissa ID = [id number] for AKHIONBARE, STEFAN TH POCT-GLUCOSE [id number] 22:34:05 Test Item Value Reference Range Interpretation Comments POC-GLUCOSE METER 215 mg/dL 70-110 H : TESTED A T [facility] 6720 (BEAKER) (test code = [facility], 1538) 52522: Concrete Building Assembler/Techni marissa ID = [id number] for AKHIONBARE, STEFAN TH OXYGEN SATURATION, [id number] 21:45:15 Test Item Value Reference Range Interpretation Comments O2 SATURATION (MEASURED) (BEAKER) 80.7 % (test code = 1455) POCT-GLUCOSE [id number] 20:55:50 Test Item Value Reference Range Interpretation Comments POC-GLUCOSE METER 175 mg/dL 70-110 H : TESTED A T [facility] 6720 (BEAKER) (test code = [facility], 1538) 06039: Concrete Building Assembler/Techni marissa ID = [id number] for AKHIONBARE, STEFAN TH POCT-GLUCOSE [id number] 19:56:22 Test Item Value Reference Range Interpretation Comments POC-GLUCOSE METER 182 mg/dL 70-110 H : TESTED A T [facility] 6720 (BEAKER) (test code = [facility], 1538) 22775: Concrete Building Assembler/Techni marissa ID = [id number] for AKHIONBARE, STEFAN TH POCT-GLUCOSE [id number] 18:46:28 Test Item Value Reference Range Interpretation Comments POC-GLUCOSE METER 193 mg/dL 70-110 H : TESTED A T [facility] 6720 (BEAKER) (test code = [facility], 1538) 21896: Concrete Building Assembler/Techni marissa ID = [id number] for Ge rrard, Jamila POCT-GLUCOSE [id number] 17:57:57 Test Item Value Reference Range Interpretation Comments POC-GLUCOSE METER 165 mg/dL 70-110 H : TESTED A T [facility] 6720 (BEAKER) (test code = [facility], 1538) 58859: Concrete Building Assembler/Techni marissa ID = [id number] for Ge rrard, Jamila POCT-GLUCOSE [id number] 17:16:01 Test Item Value Reference Range Interpretation Comments POC-GLUCOSE METER 143 mg/dL 70-110 H : TESTED A T [facility] 6720 (BEAKER) (test code = [facility], 1538) 16108: Concrete Building Assembler/Techni marissa ID = [id number] for Ge rrard, Jamila POCT-GLUCOSE [id number] 16:46:09 Test Item Value Reference Range Interpretation Comments POC-GLUCOSE METER 123 mg/dL 70-110 H : TESTED A T [facility] 6720 (BEAKER) (test code = [facility], 1538) 13376: Concrete Building Assembler/Techni marissa ID = [id number] for Ge rrard, Jamila BASIC METABOLIC [id number] 16:28:43 Test Item Value Reference Range Interpretation Comments SODIUM (BEAKER) 146 meq/L 136-145 H (test code = 381) POTASSIUM 4.1 meq/L 3.5-5.1 (BEAKER) (test code = 379) CHLORIDE (BEAKER) 110 meq/L 98-107 H (test code = 382) CO2 (BEAKER) 28 meq/L 22-29 (test code = 355) BLOOD UREA 30 mg/dL 7-21 H NITROGEN (BEAKER) (test code = 354) CREATININE 1.73 mg/dL 0.57-1.25 H (BEAKER) (test code = 358) GLUCOSE RANDOM 141 mg/dL 70-105 H (BEAKER) (test code = 652) CALCIUM (BEAKER) 8.1 mg/dL 8.4-10.2 L (test code = 697) EGFR (BEAKER) 45 Interpretatio n of eGFR (test code = mL/min/1.73 values Stage De scription 1092) sq m Result G1 Lucy l or high >=90 G2 Mildly decreased 60-89 G3a Mildl y to moderately 45-5 9 G3b Moderately to s everely 30-44 G4 Severl y decreased 15-29 G5 Kidney failure <15Reported eGF R is based on the CKD-EPI 2020 equation that d oes not use a race coefficientEsti mated GFR is not as accur ate as Creatinine Zuri warner in predicting glom erular filtration rate . Estimated GFR is not appl icable for dialysis patien ts Concrete Building Assembler ID - ADMINLACTIC ACID, [id number] 16:26:20 Test Item Value Reference Range Interpretation Comments LACTATE BLOOD ARTERIAL (2) 1.3 mmol/L 0.5-2.0 (BEAKER) (test code = 2874) Concrete Building Assembler ID - ADMINBLOOD GAS, [id number] 16:16:36 Test Item Value Reference Range Interpretation Comments PH ARTERIAL (BEAKER) (test code = 7.40 7.35-7.45 383) PCO2 ARTERIAL (BEAKER) (test code 48 mm Hg 35-45 H = 384) PO2 ARTERIAL (BEAKER) (test code = 124 mm Hg 80-90 H 385) O2 SATURATION ARTERIAL (BEAKER) 98.4 % 96.0-97.0 H (test code = 386) HCO3 ARTERIAL (BEAKER) (test code 29 mmol/L 21-29 = 388) BASE EXCESS ARTERIAL (BEAKER) 3.5 mmol/L -2.0-3.0 H (test code = 387) PATIENT TEMPERATURE (BEAKER) (test 37.5 code = 1818) FIO2 (BEAKER) (test code = 1819) 40.0 POCT-GLUCOSE [id number] 16:06:25 Test Item Value Reference Range Interpretation Comments POC-GLUCOSE METER 130 mg/dL 70-110 H : TESTED A T [facility] 6720 (BEAKER) (test code = [place], 1538) 67031: Concrete Building Assembler/Techni marissa ID = [id number] for Ge rrard, Jamila POCT-GLUCOSE [id number] 13:57:01 Test Item Value Reference Range Interpretation Comments POC-GLUCOSE METER 194 mg/dL 70-110 H : TESTED A T [facility] 6720 (BEAKER) (test code = [facility]by [facility], 1538) 66989: Concrete Building Assembler/Techni marissa ID = [id number] for BE RNABE, RABIA POCT-GLUCOSE [id number] 13:00:34 Test Item Value Reference Range Interpretation Comments POC-GLUCOSE METER 208 mg/dL 70-110 H : TESTED A T [facility] 6720 (BEAKER) (test code = [facility], 1538) 37497: Concrete Building Assembler/Techni marissa ID = [id number] for BE RNABE, RABIA POCT-GLUCOSE [id number] 11:26:04 Test Item Value Reference Range Interpretation Comments POC-GLUCOSE METER 203 mg/dL 70-110 H : TESTED A T [facility] 6720 (BETRENT) (test code = [facility], 1538) 43774: Concrete Building Assembler/Techni marissa ID = [id number] for BE RNABE, RABIA XR ABDOMEN/KUB 1 VIEW [id number] 11:10:35 [facility] : 1965 Sex: MAbdomen one viewComparison: 02/06/2023Reason for exam: post Corpak placementFindings:Tip of Corpak projectsover the expected location of duodenum.Bowel gas pattern is nonspecific, nonobstructive. No free airisidentified. Another catheter projects over the central pelvis.Bony structures demonstrate degenerative changes.Electronically Signed By: Merlene Santillan02/06/2023 11:12 CDTWorkstation Name: [id number] 10:28:09 Test Item Value Reference Range Interpretation Comments POC-GLUCOSE METER 207 mg/dL 70-110 H : TESTED A T [facility] 6720 (BEAKER) (test code = [facility], 1538) 30591: Concrete Building Assembler/Techni marissa ID = [id number] for BE RNABE, RABIA POCT-GLUCOSE [id number] 09:07:00 Test Item Value Reference Range Interpretation Comments POC-GLUCOSE METER 233 mg/dL 70-110 H : TESTED A T [facility] 6720 (BEAKER) (test code = [facility], 1538) 15975: Concrete Building Assembler/Techni marissa ID = [id number] for BE RNABE, RABIA BLOOD GAS, [id number] 08:49:36 Test Item Value Reference Range Interpretation Comments PH ARTERIAL (BEAKER) (test code = 7.51 7.35-7.45 H 383) PCO2 ARTERIAL (BEAKER) (test code 33 mm Hg 35-45 L = 384) PO2 ARTERIAL (BEAKER) (test code = 109 mm Hg 80-90 H 385) O2 SATURATION ARTERIAL (BEAKER) 98.3 % 96.0-97.0 H (test code = 386) HCO3 ARTERIAL (BEAKER) (test code 25 mmol/L 21-29 = 388) BASE EXCESS ARTERIAL (BEAKER) 2.7 mmol/L -2.0-3.0 (test code = 387) PATIENT TEMPERATURE (BEAKER) (test 38.0 code = 1818) FIO2 (BEAKER) (test code = 1819) 40.0 POCT-GLUCOSE [id number] 08:20:14 Test Item Value Reference Range Interpretation Comments POC-GLUCOSE METER 218 mg/dL 70-110 H : TESTED A T [facility] 6720 (BEAKER) (test code = [facility], 1538) 49413: Concrete Building Assembler/Techni marissa ID = [id number] for BE RNABE, RABIA POCT-GLUCOSE [id number] 07:23:59 Test Item Value Reference Range Interpretation Comments POC-GLUCOSE METER 211 mg/dL 70-110 H : TESTED A T [facility] 6720 (BEAKER) (test code = [facility], 1538) 90269: Concrete Building Assembler/Techni marissa ID = [id number] for Jamlia Orozco URINALYSIS W/ REFLEX URINE [id number] 06:13:51 Test Item Value Reference Range Interpretation Comments COLOR (BEAKER) (test code = 470) Colorless CLARITY (BEAKER) (test code = 469) Clear SPECIFIC GRAVITY UA (BEAKER) (test 1.010 1.001-1.035 code = 468) PH UA (BEAKER) (test code = 467) 6.0 5.0-8.0 PROTEIN UA (BEAKER) (test code = Negative Negative 464) GLUCOSE UA (BEAKER) (test code = Negative Negative 365) KETONES UA (BEAKER) (test code = Negative Negative 371) BILIRUBIN UA (BEAKER) (test code = Negative Negative 462) BLOOD UA (BEAKER) (test code = 461) Negative Negative NITRITE UA (BEAKER) (test code = Negative Negative 465) LEUKOCYTE ESTERASE UA (BEAKER) Negative Negative (test code = 466) UROBILINOGEN UA (BEAKER) (test code 0.2 0.2-1.0 = 463) RBC UA (BEAKER) (test code = 519) 1 /HPF WBC UA (BEAKER) (test code = 520) 1 /HPF SQUAMOUS EPITHELIAL (BEAKER) (test 1 /HPF code = 516) HYALINE CASTS (BEAKER) (test code = 4 /LPF 514) CASTS (BEAKER) (test code = 1579) 1 /LPF SOURCE(BEAKER) (test code = 2795) Concrete Building Assembler ID - [auto]Concrete Building Assembler ID - techBLOOD GAS, [id number] 05:44:29 Test Item Value Reference Range Interpretation Comments PH ARTERIAL (BEAKER) (test code = 7.51 7.35-7.45 H 383) PCO2 ARTERIAL (BEAKER) (test code 33 mm Hg 35-45 L = 384) PO2 ARTERIAL (BEAKER) (test code = 191 mm Hg 80-90 H 385) O2 SATURATION ARTERIAL (BEAKER) 99.4 % 96.0-97.0 H (test code = 386) HCO3 ARTERIAL (BEAKER) (test code 25 mmol/L 21-29 = 388) BASE EXCESS ARTERIAL (BEAKER) 2.5 mmol/L -2.0-3.0 (test code = 387) PATIENT TEMPERATURE (BEAKER) (test 38.0 code = 1818) FIO2 (BEAKER) (test code = 1819) 80.0 (CELLAVISION MANUAL DIFF)2023-02-06 04:42:21 Test Item Value Reference Range Interpretation Comments NEUTROPHILS - REL 77 % (CELLAVISION)(BEAKER) (test code = 2816) LYMPHOCYTES - REL 15 % (CELLAVISION)(BEAKER) (test code = 2817) MONOCYTES - REL 7 % (CELLAVISION)(BEAKER) (test code = 2818) METAMYELOCYTES - REL 1 % 0-0 H (CELLAVISION)(BEAKER) (test code = 2821) NEUTROPHILS - ABS 11.94 K/ul 1.78-5.38 H (CELLAVISION)(BEAKER) (test code = 2830) LYMPHOCYTES - ABS 2.33 K/ul 1.32-3.57 (CELLAVISION)(BEAKER) (test code = 2831) MONOCYTES - ABS 1.09 K/uL 0.30-0.82 H (CELLAVISION)(BEAKER) (test code = 2832) METAMYELOCYTES - ABS 0.16 K/uL 0.00-0.00 H (CELLAVISION)(BEAKER) (test code = 2836) TOTAL COUNTED (BEAKER) (test code 100 = 1351) RBC MORPHOLOGY (BEAKER) (test code Normal = 762) PLT MORPHOLOGY (BEAKER) (test code Normal = 486) SMUDGE CELLS (BEAKER) (test code = Present 1371) PLATELET CONCENTRATION Adequate (CELLAVISION)(BEAKER) (test code = 3438) [employer] Building As[employer]er ID - Franciahayley comments: Slide comments:CBC W/PLT COUNT & AUTO [id number] 04:42:19 Test Item Value Reference Range Interpretation Comments WHITE BLOOD CELL COUNT (BEAKER) 15.5 K/ L 3.5-10.5 H (test code = 775) RED BLOOD CELL COUNT (BEAKER) 3.06 M/ L 4.63-6.08 L (test code = 761) HEMOGLOBIN (BEAKER) (test code = 8.7 GM/DL 13.7-17.5 L 410) HEMATOCRIT (BEAKER) (test code = 27.6 % 40.1-51.0 L 411) MEAN CORPUSCULAR VOLUME (BEAKER) 90 fL 79-92 (test code = 753) MEAN CORPUSCULAR HEMOGLOBIN 28.4 pg 25.7-32.2 (BEAKER) (test code = 751) MEAN CORPUSCULAR HEMOGLOBIN CONC 31.5 GM/DL 32.3-36.5 L (BEAKER) (test code = 752) RED CELL DISTRIBUTION WIDTH 15.8 % 11.6-14.4 H (BEAKER) (test code = 412) PLATELET COUNT (BEAKER) (test 208 K/CU MM 150-450 code = 756) MEAN PLATELET VOLUME (BEAKER) 10.6 fL 9.4-12.4 (test code = 754) NUCLEATED RED BLOOD CELLS 0 /100 WBC 0-0 (BEAKER) (test code = 413) XR CHEST 1 VIEW PORTABLE / [id number] 04:31:47 [facility] : 1965 Sex: MEXAM/TECHNIQUE: Single view frontal radiograph of the chest.INDICATION: NGT not visualized on KUBCOMPARISON: Same day radiography.FINDINGS: Devices/Objects: Redemonstrated gastric tube terminates in the loweresophagus, approximately 6.5 cm above the expected location of thegastroesophageal junction. Otherwise, unchanged.Lungs: Left pneumothorax is visualized. Similar hazy pulmonary opacitiesand pleural effusions.Heart/Mediastinum: No cardiomegaly. No interstitial thickening.Osseous: No acute osseous process. No suspicious osseous lesion.Upper abdomen: Unremarkable.IMPRESSION:1. Redemonstrated gastric tube terminates in the lower esophagus onimaging from 0340 hours, approximately 6.5 cm above the expectedlocation of the gastroesophageal junction.2. Similar hazy pulmonary opacities and pleural effusions.Electronically Signed By: Dg Oneil02/06/2023 04:33 CDTWorkstation Name: [id number] CHEST 1 VIEW PORTABLE / [id number] 04:31:47 [facility] 1965 Sex: MEXAM/TECHNIQUE: Single view frontal radiograph of the chest.INDICATION: NGT not visualized on KUBCOMPARISON: Same day radiography.FINDINGS: Devices/Objects: Redemonstrated gastric tube terminates in the loweresophagus, approximately 6.5 cm above the expected location of thegastroesophageal junction. Otherwise, unchanged.Lungs: Left pneumothorax is visualized. Similar hazy pulmonary opacitiesand pleural effusions.Heart/Mediastinum: No cardiomegaly. No interstitial thickening.Osseous: No acute osseous process. No suspicious osseous lesion.Upper abdomen: Unremarkable.IMPRESSION:1. Redemonstrated gastric tube terminates in the lower esophagus onimaging from 0340 hours, approximately 6.5 cm above the expectedlocation of the gastroesophageal junction.2. Similar hazy pulmonary opacities and pleural effusions.Electronically Signed By: Dg Oneil02/06/2023 04:33 CDTWorkstation Name: [id number] ABDOMEN/KUB 1 VIEW [id number] 04:29:20 [facility] 1965 Sex: MEXAM/TECHNIQUE: XR ABDOMEN/KUB 1 VIEW PORTABLEINDICATION: confirm NGT placementCOMPARISON: None.FINDINGS: Gastric tube is not visualized. Nonspecific bowel gas pattern. No acuteosseous process.IMPRESSION:Gastric tube is not visualized.Electronically Signed By: Dg Oneil02/06/2023 04:31 CDTWorkstation Name: [id number], [id number] 04:02:19 Test Item Value Reference Range Interpretation Comments KETONES, BLOOD (BEAKER) (test code 0.4 mmol/L <0.4 H = 1103) BLOOD GAS, [id number] 03:58:36 Test Item Value Reference Range Interpretation Comments PH ARTERIAL (BEAKER) (test code = 7.55 7.35-7.45 H 383) PCO2 ARTERIAL (BEAKER) (test code 28 mm Hg 35-45 L = 384) PO2 ARTERIAL (BEAKER) (test code = 197 mm Hg 80-90 H 385) O2 SATURATION ARTERIAL (BEAKER) 99.5 % 96.0-97.0 H (test code = 386) HCO3 ARTERIAL (BEAKER) (test code 24 mmol/L 21-29 = 388) BASE EXCESS ARTERIAL (BEAKER) 2.4 mmol/L -2.0-3.0 (test code = 387) PATIENT TEMPERATURE (BEAKER) (test 38.0 code = 1818) FIO2 (BEAKER) (test code = 1819) 80.0 POCT-GLUCOSE [id number] 03:07:51 Test Item Value Reference Range Interpretation Comments POC-GLUCOSE METER 179 mg/dL 70-110 H : TESTED A T [facility] 6720 (BEAKER) (test code = [facility] [place], 1538) [address]: Concrete Building Assembler/Techni marissa ID = [id number] for Re ashish, Oswaldo B-TYPE NATRIURETIC FACTOR (BNP)2023-02-06 02:45:11 Test Item Value Reference Range Interpretation Comments B-TYPE NATRIURETIC PEPTIDE 1004 pg/mL 0-100 H (BEAKER) (test code = 700) Concrete Building Assembler ID - [id number] 02:38:31 Test Item Value Reference Range Interpretation Comments PHOSPHORUS (BEAKER) (test code = 3.8 mg/dL 2.3-4.7 604) Concrete Building Assembler ID - [id number] 02:38:30 Test Item Value Reference Range Interpretation Comments MAGNESIUM (BEAKER) (test code = 1.9 mg/dL 1.6-2.6 627) Concrete Building Assembler ID - ADMINCOMPREHENSIVE METABOLIC [id number] 02:38:29 Test Item Value Reference Range Interpretation Comments TOTAL PROTEIN 5.8 gm/dL 6.0-8.3 L (BEAKER) (test code = 770) ALBUMIN (BEAKER) 2.7 g/dL 3.5-5.0 L (test code = 1145) ALKALINE 77 U/L 40-150 PHOSPHATASE (BEAKER) (test code = 346) BILIRUBIN TOTAL 1.0 mg/dL 0.2-1.2 (BEAKER) (test code = 377) SODIUM (BEAKER) 145 meq/L 136-145 (test code = 381) POTASSIUM (BEAKER) 4.6 meq/L 3.5-5.1 (test code = 379) CHLORIDE (BEAKER) 110 meq/L 98-107 H (test code = 382) CO2 (BEAKER) (test 23 meq/L 22-29 code = 355) BLOOD UREA 29 mg/dL 7-21 H NITROGEN (BEAKER) (test code = 354) CREATININE 1.63 mg/dL 0.57-1.25 H (BEAKER) (test code = 358) GLUCOSE RANDOM 205 mg/dL 70-105 H (BEAKER) (test code = 652) CALCIUM (BEAKER) 8.3 mg/dL 8.4-10.2 L (test code = 697) AST (SGOT) 82 U/L 5-34 H (BEAKER) (test code = 353) ALT (SGPT) 50 U/L 6-55 (BEAKER) (test code = 347) EGFR (BEAKER) 49 Interpretatio n of eGFR (test code = 1092) mL/min/1.[address] age Description sq m Result G1 Lucy l or high >=90 G2 Mildly decreased 60-89 G3a Mildl y to moderately 45-5 9 G3b Moderately to s everely 30-44 G4 Severl y decreased 15-29 G5 Kidney failure <15Reported eGF R is based on the CKD-EPI 2020 equation that d oes not use a race coefficientEsti mated GFR is not as accur ate as Creatinine Zuri warner in predicting glom erular filtration rate . Estimated GFR is not appl icable for dialysis patien ts Concrete Building Assembler ID - ADMINPT/[id number] 02:32:25 Test Item Value Reference Range Interpretation Comments PROTIME (BEAKER) (test 18.0 seconds 11.9-14.2 H code = 759) INR (BEAKER) (test 1.59 See_Comment [Automat ed code = 370) message] The sy stem which generated this result transmitted reference range : <=5.90. The reference range was not used to interpret this result as normal/abnormal . PARTIAL THROMBOPLASTIN 37.2 seconds 22.5-36.0 H TIME (BEAKER) (test code = 760) RECOMMENDED COUMADIN/WARFARIN INR THERAPY RANGESSTANDARD DOSE: 2.0 - 3.0 Includes: PROPHYLAXIS for venous thrombosis, systemic embolization; TREATMENT for venous thrombosis and/or pulmonary embolus.HIGH RISK: Target INR is 2.5-3.5 for patients with mechanical heart valves.XR CHEST 1 VIEW PORTABLE / BEDSIDE 2023-02-06 02:31:20 [facility] : 1965 Sex: MEXAM/TECHNIQUE: Single view frontal radiograph of the chest.INDICATION: IntubationCOMPARISON: Same day radiography.FINDINGS: Devices/Objects: Endotracheal tube terminates 4 cm above the carlos.Otherwise, unchanged.Lungs: Lung apices are incompletely included. Similar small left apicalpneumothorax. Similar hazy pulmonary opacities.Heart/Mediastinum: Similar cardiomegaly.Osseous: No acute osseous process. Nosuspicious osseous lesion.Upper abdomen: Unremarkable.IMPRESSION:Similar small left apical pneumothorax. Similar hazy pulmonaryopacities.Electronically Signed By: Dg Oneil02/06/2023 02:33 CDTWorkstation Name: [id number] 02:31:06 Test Item Value Reference Range Interpretation Comments PROTIME (BEAKER) 18.0 seconds 11.9-14.2 H (test code = 759) INR (BEAKER) (test 1.59 See_Comment [Automat ed message] code = 370) The system Carlotz generated this result transmitted ref erence range: <=5.90. The reference range was not used to int erpret this result as normal/abnormal . RECOMMENDED COUMADIN/WARFARIN INR THERAPY RANGESSTANDARD DOSE: 2.0 - 3.0 Includes: PROPHYLAXIS for venous thrombosis, systemic embolization; TREATMENT for venous thrombosis and/or pulmonary embolus.HIGH RISK: Target INR is 2.5-3.5 for patients with mechanical heart valves.XR CHEST 1 VIEW PORTABLE / BEDSIDE 2023-02-06 02:16:29 [facility] : 1965 Sex: MEXAM/TECHNIQUE: Single view frontal radiograph of the chest.INDICATION: HypoxiaCOMPARISON: 02/06/2023FINDINGS: Devices/Objects: Stable.Lungs: Decreased left apical pneumothorax. Similar to slightly increasedpulmonary opacities.Heart/Mediastinum: Similar cardiomegaly.Osseous: No acute osseous process. No suspicious osseous lesion.Upper abdomen: Unremarkable.IMPRESSION:Decreased left apical pneumothorax. Similar to slightly increasedpulmonary opacities.Electronically Signed By: Dg Oneil02/06/2023 02:18CDTWorkstation Name: [id number] GAS, [id number] 02:11:20 Test Item Value Reference Range Interpretation Comments PH ARTERIAL (BEAKER) (test code = 7.39 7.35-7.45 383) PCO2 ARTERIAL (BEAKER) (test code 47 mm Hg 35-45 H = 384) PO2 ARTERIAL (BEAKER) (test code = 140 mm Hg 80-90 H 385) O2 SATURATION ARTERIAL (BEAKER) 98.6 % 96.0-97.0 H (test code = 386) HCO3 ARTERIAL (BEAKER) (test code 27 mmol/L 21-29 = 388) BASE EXCESS ARTERIAL (BEAKER) 2.4 mmol/L -2.0-3.0 (test code = 387) PATIENT TEMPERATURE (BEAKER) (test 38.5 code = 1818) FIO2 (BEAKER) (test code = 1819) 100.0 XR CHEST 1 VIEW PORTABLE / [id number] 01:43:47 [facility] : 1965 Sex: MEXAM/TECHNIQUE: Single view frontal radiograph of the chest.INDICATION: L pneumothoraxCOMPARISON: 02/05/2023.FINDINGS: Devices/Objects: Unchanged left chest tube and right internal jugularcentral venous catheter sheath.Lungs: Similar left apical pneumothorax. Similar hazy pulmonaryopacities in the lungs.Heart/Mediastinum: Similar cardiomegaly.Osseous: No acute osseous process. No suspicious osseous lesion.Upper abdomen: Unremarkable.IMPRESSION:Similar left apical pneumothorax and bilateral pulmonary opacities.Electronically Signed By: Dg Oneil02/06/2023 01:58 CDTWorkstation Name: [id number] METER 2023-02-06 01:02:50 Test Item Value Reference Range Interpretation Comments POC-GLUCOSE METER 163 mg/dL 70-110 H : TESTED A T [facility] 6720 (BEAKER) (test code = [facility], 1538) 61863: Concrete Building Assembler/Techni marissa ID = [id number] for CO MS, SENORA POCT-GLUCOSE [id number] 00:08:32 Test Item Value Reference Range Interpretation Comments POC-GLUCOSE METER 162 mg/dL 70-110 H : TESTED A T [facility] 6720 (BEAKER) (test code = [facility], 1538) 74743: Concrete Building Assembler/Techni marissa ID = [id number] for CO MS, SENORA POCT-GLUCOSE [id number] 00:06:30 Test Item Value Reference Range Interpretation Comments POC-GLUCOSE METER 161 mg/dL 70-110 H : TESTED A T [facility] 6720 (BEAKER) (test code = [facility], 1538) 79618: Concrete Building Assembler/Techni marissa ID = [id number] for Re ashish, Oswaldo XR CHEST 1 VIEW PORTABLE / [id number] 00:03:42 [facility] : 1965 Sex: MEXAMINATION: XR CHEST 1 VIEW PORTABLE / BEDSIDE INDICATION: increased work of breathingCOMPARISON: CXR of earlier the same day FINDINGS:LINES/TUBES: There is interval removal of the [place]-Michael catheter. Theleft chest tube remain unchanged in position.LUNGS: The lungs are well inflated. Persistent bilateral pu lmonaryedema.PLEURA: There is interval development of left apical pneumothorax.MEDIASTINUM: Persistent cardiomegaly.BONES/SOFT TISSUES: No acute osseous injury.ABDOMEN: No free air under the diaphragm.IMPRESSION:Left apical pneumothorax. The patient's nurse was notified abovefindings on February 06, 2023 at 0003 hours.Electronically Signed By: Atilio Minor02/06/2023 00:05 CDTWorkstation Name: [id number] 21:36:39 Test Item Value Reference Range Interpretation Comments POC-GLUCOSE METER 174 mg/dL 70-110 H : TESTED A T [facility] 6720 (BEAKER) (test code = [facility], [facility]8) 97446: Concrete Building Assembler/Techni marissa ID = [id number] for CO MS, SENORA POCT-GLUCOSE [id number] 19:52:16 Test Item Value Reference Range Interpretation Comments POC-GLUCOSE METER 183 mg/dL 70-110 H : TESTED A T [facility] 6720 (BEAKER) (test code = [facility], 1538) 40284: Concrete Building Assembler/Techni marissa ID = [id number] for CO MS, SENORA POCT-GLUCOSE [id number] 18:41:54 Test Item Value Reference Range Interpretation Comments POC-GLUCOSE METER 152 mg/dL 70-110 H : TESTED A T [facility] 6720 (BEAKER) (test code = [facility], 1538) 91946: Concrete Building Assembler/Techni marissa ID = [id number] for DE NNIS, OSMANY POCT-GLUCOSE [id number] 17:42:14 Test Item Value Reference Range Interpretation Comments POC-GLUCOSE METER 151 mg/dL 70-110 H : TESTED A T [facility] 6720 (BEAKER) (test code = [facility], 1538) 17636: Concrete Building Assembler/Techni marissa ID = [id number] for DE NNIS, OSMANY BASIC METABOLIC [id number] 17:00:17 Test Item Value Reference Range Interpretation Comments SODIUM (BEAKER) 146 meq/L 136-145 H (test code = 381) POTASSIUM 4.9 meq/L 3.5-5.1 (BEAKER) (test code = 379) CHLORIDE (BEAKER) 112 meq/L 98-107 H (test code = 382) CO2 (BEAKER) 24 meq/L 22-29 (test code = 355) BLOOD UREA 25 mg/dL 7-21 H NITROGEN (BEAKER) (test code = 354) CREATININE 1.67 mg/dL 0.57-1.25 H (BEAKER) (test code = 358) GLUCOSE RANDOM 159 mg/dL 70-105 H (BEAKER) (test code = 652) CALCIUM (BEAKER) 8.4 mg/dL 8.4-10.2 (test code = 697) EGFR (BEAKER) 47 Interpretatio n of eGFR (test code = mL/min/1.73 values Stage De scription 1092) sq m Result G1 Lucy l or high >=90 G2 Mildly decreased 60-89 G3a Mildl y to moderately 45-5 9 G3b Moderately to s everely 30-44 G4 Severl y decreased 15-29 G5 Kidney failure <15Reported eGF R is based on the CKD-EPI 2021 equation that d oes not use a race coefficientEsti mated GFR is not as accur ate as Creatinine Zuri warner in predicting glom erular filtration rate . Estimated GFR is not appl icable for dialysis patien ts Concrete Building Assembler ID - ADMINBLOOD GAS, [id number] 16:39:33 Test Item Value Reference Range Interpretation Comments PH ARTERIAL (BEAKER) (test code = 7.48 7.35-7.45 H 383) PCO2 ARTERIAL (BEAKER) (test code 35 mm Hg 35-45 = 384) PO2 ARTERIAL (BEAKER) (test code = 130 mm Hg 80-90 H 385) O2 SATURATION ARTERIAL (BEAKER) 98.7 % 96.0-97.0 H (test code = 386) HCO3 ARTERIAL (BEAKER) (test code 25 mmol/L 21-29 = 388) BASE EXCESS ARTERIAL (BEAKER) 1.7 mmol/L -2.0-3.0 (test code = 387) PATIENT TEMPERATURE (BEAKER) (test 38.5 code = 1818) FIO2 (BEAKER) (test code = 1819) 40.0 POCT-GLUCOSE [id number] 16:18:49 Test Item Value Reference Range Interpretation Comments POC-GLUCOSE METER 146 mg/dL 70-110 H : TESTED A T [facility] 6720 (BEAKER) (test code = [facility], 1538) 23558: Concrete Building Assembler/Techni marissa ID = [id number] for DE NNIS, OSMANY POCT-GLUCOSE [id number] 15:23:20 Test Item Value Reference Range Interpretation Comments POC-GLUCOSE METER 113 mg/dL 70-110 H : TESTED A T [facility] 6720 (BEAKER) (test code = [facility], 1538) 43956: Concrete Building Assembler/Techni marissa ID = [id number] for DE NNIS, OSMANY POCT-GLUCOSE [id number] 15:21:20 Test Item Value Reference Range Interpretation Comments POC-GLUCOSE METER 95 mg/dL 70-110 : TESTED A T [facility] 6720 (BEAKER) (test code = [facility], 1538) 70121: Concrete Building Assembler/Techni marissa ID = [id number] for MattaRey millersse POCT-GLUCOSE [id number] 13:30:25 Test Item Value Reference Range Interpretation Comments POC-GLUCOSE METER 154 mg/dL 70-110 H : TESTED A T [facility] 6720 (BEAKER) (test code = [facility], 1538) 86325: Concrete Building Assembler/Techni marissa ID = [id number] for DE NNIS, OSMANY OSMOLALITY, [id number] 13:18:29 Test Item Value Reference Range Interpretation Comments OSMOLALITY, SERUM (BEAKER) (test 314 mOsm/kg 275-295 H code = 615) POCT-GLUCOSE [id number] 12:09:20 Test Item Value Reference Range Interpretation Comments POC-GLUCOSE METER 220 mg/dL 70-110 H : TESTED A T [facility] 6720 (BEAKER) (test code = [facility], 1538) 38766: Concrete Building Assembler/Techni marissa ID = [id number] for DE NNIS, OSMANY BASIC METABOLIC [id number] 11:35:02 Test Item Value Reference Range Interpretation Comments SODIUM (BEAKER) 146 meq/L 136-145 H (test code = 381) POTASSIUM 4.5 meq/L 3.5-5.1 (BEAKER) (test code = 379) CHLORIDE (BEAKER) 110 meq/L 98-107 H (test code = 382) CO2 (BEAKER) 25 meq/L 22-29 (test code = 355) BLOOD UREA 23 mg/dL 7-21 H NITROGEN (BEAKER) (test code = 354) CREATININE 1.74 mg/dL 0.57-1.25 H (BEAKER) (test code = 358) GLUCOSE RANDOM 249 mg/dL 70-105 H (BEAKER) (test code = 652) CALCIUM (BEAKER) 8.6 mg/dL 8.4-10.2 (test code = 697) EGFR (BEAKER) 45 Interpretatio n of eGFR (test code = mL/min/1.73 values Stage De scription 1092) sq m Result G1 Lucy l or high >=90 G2 Mildly decreased 60-89 G3a Mildl y to moderately 45-5 9 G3b Moderately to s everely 30-44 G4 Severl y decreased 15-29 G5 Kidney failure <15Reported eGF R is based on the CKD-EPI 2020 equation that d oes not use a race coefficientEsti mated GFR is not as accur ate as Creatinine Zuri hylton in predicting glom erular filtration rate . Estimated GFR is not appl icable for dialysis patien ts Concrete Building Assembler ID - ADMINPOCT-GLUCOSE [id number] 11:15:42 Test Item Value Reference Range Interpretation Comments POC-GLUCOSE METER 232 mg/dL 70-110 H : TESTED A T [facility] 6720 (BEAKER) (test code = [facility], 1538) 02418: Concrete Building Assembler/Techni marissa ID = [id number] for DE OSMANY GREWAL KETONE, [id number] 11:08:36 Test Item Value Reference Range Interpretation Comments KETONES, BLOOD (BEAKER) (test code 1.1 mmol/L <0.4 H = 1103) OXYGEN SATURATION, [id number] 11:06:48 Test Item Value Reference Range Interpretation Comments O2 SATURATION (MEASURED) (BEAKER) 67.8 % (test code = 1455) BLOOD GAS, [id number] 11:06:11 Test Item Value Reference Range Interpretation Comments PH VENOUS (BEAKER) (test code = 7.39 7.32-7.42 701) PCO2 VENOUS (BEAKER) (test code = 46 mm Hg 41-51 755) PO2 VENOUS (BEAKER) (test code = 40 mm Hg 25-40 702) O2 SATURATION VENOUS (BEAKER) 69.6 % 40.0-70.0 (test code = 703) HCO3 VENOUS (BEAKER) (test code = 26 mmol/L 21-29 705) BASE EXCESS VENOUS (BEAKER) (test 1.4 mmol/L -2.0-3.0 code = 704) PATIENT TEMPERATURE (BEAKER) (test 38.1 code = 1818) FIO2 (BEAKER) (test code = 1819) 40.0 POCT-GLUCOSE [id number] 10:11:15 Test Item Value Reference Range Interpretation Comments POC-GLUCOSE METER 232 mg/dL 70-110 H : TESTED A T [facility] 6720 (BEAKER) (test code = [facility], 1538) 21898: Concrete Building Assembler/Techni marissa ID = [id number] for DE NNISOSMANY POCT-GLUCOSE [id number] 09:17:36 Test Item Value Reference Range Interpretation Comments POC-GLUCOSE METER 271 mg/dL 70-110 H : TESTED A T [facility] 6720 (BEAKER) (test code = [facility], 1538) 14986: 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 FINDINGS: Support Lines and Devices: Stable. Lungs and pleura: Unchanged airspace and pleural opacities. Nopneumothorax identified.Heart and mediastinum: Stable contours.Stable surgical changes.Additional findings: None.IMPRESSION:1. No significant change from prior exam.2. Hazy bilateral airspace opacities, suggesting pulmonary edema withor without pneumonia.Electronically Signed By: Keyur Johnson02/05/2023 08:58 CDTWorkstation Name: [id number] 08:48:15 Test Item Value Reference Range Interpretation Comments POTASSIUM (BEAKER) (test code = 4.8 meq/L 3.5-5.1 379) Concrete Building Assembler ID - [id number] 08:48:15 Test Item Value Reference Range Interpretation Comments GLUCOSE RANDOM (BEAKER) (test code 342 mg/dL 70-105 H = 652) Concrete Building Assembler ID - [id number] 07:35:02 Test Item Value Reference Range Interpretation Comments GLUCOSE RANDOM (BEAKER) (test code 411 mg/dL 70-105 HH = 652) Concrete Building Assembler ID - ADMINPOCT-GLUCOSE [id number] 07:21:04 Test Item Value Reference Range Interpretation Comments POC-GLUCOSE METER 361 mg/dL 70-110 H : TESTED A T [facility] 6720 (BEAKER) (test code = [employer] [facility], 1538) 75712: Concrete Building Assembler/Techni marissa ID = [id number] for Chano Akers [id number] 07:16:40 Test Item Value Reference Range Interpretation Comments POTASSIUM (BEAKER) (test code = 4.8 meq/L 3.5-5.1 379) Concrete Building Assembler ID - ADMINPOCT-GLUCOSE [id number] 06:35:36 Test Item Value Reference Range Interpretation Comments POC-GLUCOSE METER 367 mg/dL 70-110 H : TESTED A T [facility] 6720 (BEAKER) (test code = [facility], 1538) 04518: Concrete Building Assembler/Techni marissa ID = [id number] for DAGO SHEPPARDDONA HANSENNE POCT-GLUCOSE [id number] 05:42:59 Test Item Value Reference Range Interpretation Comments POC-GLUCOSE METER 379 mg/dL 70-110 H : TESTED A T [facility] 6720 (BEAKER) (test code = [facility] [place], 153) 36661: Concrete Building Assembler/Techni marissa ID = [id number] for PRINCESS CLAUDY SHEPPARD POCT-GLUCOSE [id number] 04:43:39 Test Item Value Reference Range Interpretation Comments POC-GLUCOSE METER 399 mg/dL 70-110 H : TESTED A T [facility] 6720 (BEAKER) (test code = [facility], 153) 53511: Concrete Building Assembler/Techni marissa ID = [id number] for PRINCESS CLAUDY SHEPPARD COMPREHENSIVE METABOLIC [id number] 04:09:27 Test Item Value Reference Range Interpretation Comments TOTAL PROTEIN 5.3 gm/dL 6.0-8.3 L (BEAKER) (test code = 770) ALBUMIN (BEAKER) 2.6 g/dL 3.5-5.0 L (test code = 1145) ALKALINE 82 U/L 40-150 PHOSPHATASE (BEAKER) (test code = 346) BILIRUBIN TOTAL 0.9 mg/dL 0.2-1.2 (BEAKER) (test code = 377) SODIUM (BEAKER) 144 meq/L 136-145 (test code = 381) POTASSIUM (BEAKER) 5.3 meq/L 3.5-5.1 H (test code = 379) CHLORIDE (BEAKER) 109 meq/L 98-107 H (test code = 382) CO2 (BEAKER) (test 15 meq/L 22-29 L code = 355) BLOOD UREA 22 mg/dL 7-21 H NITROGEN (BEAKER) (test code = 354) CREATININE 1.79 mg/dL 0.57-1.25 H (BEAKER) (test code = 358) GLUCOSE RANDOM 469 mg/dL 70-105 HH (BEAKER) (test code = 652) CALCIUM (BEAKER) 8.5 mg/dL 8.4-10.2 (test code = 697) AST (SGOT) 61 U/L 5-34 H (BEAKER) (test code = 353) ALT (SGPT) 29 U/L 6-55 (BEAKER) (test code = 347) EGFR (BEAKER) 43 Interpretati on of eGFR (test code = 1092) mL/min/1.[address] age Description sq m Result G1 Lucy l or high >=90 G2 Mildly decreased 60-89 G3a Mildl y to moderately 45-5 9 G3b Moderately to s everely 30-44 G4 Severl y decreased 15-29 G5 Kidney failure <15Reported eGF R is based on the CKD-EPI 2021 equation that d oes not use a race coefficientEsti mated GFR is not as accur ate as Creatinine Zuri warner in predicting glom erular filtration rate . Estimated GFR is not appl icable for dialysis patien ts Concrete Building Assembler ID - [id number] 04:06:56 Test Item Value Reference Range Interpretation Comments PHOSPHORUS (BEAKER) (test code = 5.4 mg/dL 2.3-4.7 H 604) Concrete Building Assembler ID - [id number] 04:06:55 Test Item Value Reference Range Interpretation Comments MAGNESIUM (BEAKER) (test code = 2.0 mg/dL 1.6-2.6 627) Concrete Building Assembler ID - mmLACTIC ACID, [id number] 04:00:35 Test Item Value Reference Range Interpretation Comments LACTATE BLOOD 1.6 mmol/L 0.5-2.0 Specimen sligh tly ARTERIAL (2) (BEAKER) hemoly zed (test code = 2874) Concrete Building Assembler ID - ADMINPT/[id number] 03:58:52 Test Item Value Reference Range Interpretation Comments PROTIME (BEAKER) (test 18.3 seconds 11.9-14.2 H code = 759) INR (BEAKER) (test 1.62 See_Comment [Automat ed code = 370) message] The [employer] stem which generated this result transmitted reference range : <=5.90. The reference range was not used to interpret this result as normal/abnormal . PARTIAL THROMBOPLASTIN 36.5 seconds 22.5-36.0 H TIME (BEAKER) (test code = 760) RECOMMENDED COUMADIN/WARFARIN INR THERAPY RANGESSTANDARD DOSE: 2.0 - 3.0 Includes: PROPHYLAXIS for venous thrombosis, systemic embolization; TREATMENT for venous thrombosis and/or pulmonary embolus.HIGH RISK: Target INR is 2.5-3.5 for patients with mechanical heart valves.POCT-GLUCOSE [id number] 03:31:18 Test Item Value Reference Range Interpretation Comments POC-GLUCOSE METER 398 mg/dL 70-110 H : TESTED A T [facility] 6720 (BEAKER) (test code = NABOR Guardado [place], 1538) [address]: Concrete Building Assembler/Techni marissa ID = [id number] for PRINCESS CLAUDY SHEPPARD (CELLAVISION MANUAL DIFF)2023-02-05 01:58:20 Test Item Value Reference Range Interpretation Comments NEUTROPHILS - REL 86 % (CELLAVISION)(BEAKER) (test code = 2816) LYMPHOCYTES - REL 9 % (CELLAVISION)(BEAKER) (test code = 2817) MONOCYTES - REL 4 % (CELLAVISION)(BEAKER) (test code = 2818) BASOPHILS - REL 1 % (CELLAVISION)(BEAKER) (test code = 2820) NEUTROPHILS - ABS 11.44 K/ul 1.78-5.38 H (CELLAVISION)(BEAKER) (test code = 2830) LYMPHOCYTES - ABS 1.20 K/ul 1.32-3.57 L (CELLAVISION)(BEAKER) (test code = 2831) MONOCYTES - ABS 0.53 K/uL 0.30-0.82 (CELLAVISION)(BEAKER) (test code = 2832) BASOPHILS - ABS 0.13 K/uL 0.01-0.08 H (CELLAVISION)(BEAKER) (test code = 2835) TOTAL COUNTED (BEAKER) (test code 100 = 1351) WBC MORPHOLOGY (BEAKER) (test Normal code = 487) PLT MORPHOLOGY (BEAKER) (test Normal code = 486) POLYCHROMATOPHILLIC RBCS(BEAKER) 1+ few (test code = 478) ANISOCYTOSIS (BEAKER) (test code 1+ few = 961) MICROCYTES (BEAKER) (test code = 1+ few 965) POIKILOCYTES (BEAKER) (test code 2+ moderate = 966) OVALOCYTES (BEAKER) (test code = 2+ moderate 477) ROSEMARY CELLS (BEAKER) (test code = 2+ moderate 474) ARTIFACT (CELLAVISION)(BEAKER) Present (test code = 3432) PLATELET CONCENTRATION Adequate (CELLAVISION)(BEAKER) (test code = 3438) Concrete Building Assembler ID - Rhonda Medina comments: Slide comments:CBC W/PLT COUNT & AUTO [id number] 01:58:19 Test Item Value Reference Range Interpretation Comments WHITE BLOOD CELL COUNT 13.3 K/ L 3.5-10.5 H (BEAKER) (test code = 775) RED BLOOD CELL COUNT 3.25 M/ L 4.63-6.08 L (BEAKER) (test code = 761) HEMOGLOBIN (BEAKER) 9.3 GM/DL 13.7-17.5 L (test code = 410) HEMATOCRIT (BEAKER) 29.3 % 40.1-51.0 L (test code = 411) MEAN CORPUSCULAR 90 fL 79-92 Discordant results VOLUME (BEAKER) (test compar ed to code = 753) previous, clini marck correlation required. MEAN CORPUSCULAR 28.6 pg 25.7-32.2 HEMOGLOBIN (BEAKER) (test code = 751) MEAN CORPUSCULAR 31.7 GM/DL 32.3-36.5 L HEMOGLOBIN CONC (BEAKER) (test code = 752) RED CELL DISTRIBUTION 16.0 % 11.6-14.4 H WIDTH (BEAKER) (test code = 412) PLATELET COUNT 187 K/CU MM 150-450 (BEAKER) (test code = 756) MEAN PLATELET VOLUME 10.5 fL 9.4-12.4 (BEAKER) (test code = 754) NUCLEATED RED BLOOD 0 /100 WBC 0-0 CELLS (BEAKER) (test code = 413) POCT-GLUCOSE [id number] 01:39:19 Test Item Value Reference Range Interpretation Comments POC-GLUCOSE METER 384 mg/dL 70-110 H : TESTED A T [facility] 6720 (BEAKER) (test code = [place], 1538) [address]: Concrete Building Assembler/Techni marissa ID = [id number] for PRINCESS CLAUDY SHEPPARD BLOOD GAS, [id number] 01:21:14 Test Item Value Reference Range Interpretation Comments PH ARTERIAL (BEAKER) (test code = 7.35 7.35-7.45 383) PCO2 ARTERIAL (BEAKER) (test code 33 mm Hg 35-45 L = 384) PO2 ARTERIAL (BEAKER) (test code 161 mm Hg 80-90 H = 385) O2 SATURATION ARTERIAL (BEAKER) 98.9 % 96.0-97.0 H (test code = 386) HCO3 ARTERIAL (BEAKER) (test code 17 mmol/L 21-29 L = 388) BASE EXCESS ARTERIAL (BEAKER) -7.0 mmol/L -2.0-3.0 L (test code = 387) PATIENT TEMPERATURE (BEAKER) 38.5 (test code = 1818) FIO2 (BEAKER) (test code = 1819) 45.0 OXYGEN SATURATION, [id number] 22:58:33 Test Item Value Reference Range Interpretation Comments O2 SATURATION (MEASURED) (BEAKER) 62.5 % (test code = 1455) BASIC METABOLIC [id number] 21:22:57 Test Item Value Reference Range Interpretation Comments SODIUM (BEAKER) 143 meq/L 136-145 (test code = 381) POTASSIUM 4.7 meq/L 3.5-5.1 (BEAKER) (test code = 379) CHLORIDE (BEAKER) 109 meq/L 98-107 H (test code = 382) CO2 (BEAKER) 18 meq/L 22-29 L (test code = 355) BLOOD UREA 15 mg/dL 7-21 NITROGEN (BEAKER) (test code = 354) CREATININE 1.43 mg/dL 0.57-1.25 H (BEAKER) (test code = 358) GLUCOSE RANDOM 382 mg/dL 70-105 H (BEAKER) (test code = 652) CALCIUM (BEAKER) 8.7 mg/dL 8.4-10.2 (test code = 697) EGFR (BEAKER) 57 Interpretatio n of eGFR (test code = mL/min/1.73 values Stage De scription 1092) sq m Result G1 Lucy l or high >=90 G2 Mildly decreased 60-89 G3a Mild ly to moderately 45-5 9 G3b Moderately to s everely 30-44 G4 Severl y decreased 15-29 G5 Kidney failure <15Reported eGF R is based on the CKD-EPI 2021 equation that d oes not use a race coefficientEsti mated GFR is not as accur ate as Creatinine Zuri warner in predicting glom erular filtration rate . Estimated GFR is not appl icable for dialysis patien ts Concrete Building Assembler ID - ADMINHGB/HCT (H&H) - STAT [id number] 21:05:40 Test Item Value Reference Range Interpretation Comments HEMOGLOBIN (BEAKER) (test code = 10.3 GM/DL 13.0-16.8 L 410) HEMATOCRIT (BEAKER) (test code = 30.0 % 40.0-50.0 L 411) POTASSIUM-STAT [id number] 21:05:38 Test Item Value Reference Range Interpretation Comments POTASSIUM (BEAKER) (test code = 4.7 meq/L 3.6-5.5 379) GLUCOSE-STAT [id number] 21:05:37 Test Item Value Reference Range Interpretation Comments GLUCOSE RANDOM (BEAKER) (test code 365 mg/dL 70-110 H = 652) SODIUM NA-STAT [id number] 21:05:37 Test Item Value Reference Range Interpretation Comments SODIUM (BEAKER) (test code = 381) 142 meq/L 136-145 BLOOD GAS, [id number] 21:05:31 Test Item Value Reference Range Interpretation Comments PH ARTERIAL (BEAKER) (test code = 7.35 7.35-7.45 383) PCO2 ARTERIAL (BEAKER) (test code 39 mm Hg 35-45 = 384) PO2 ARTERIAL (BEAKER) (test code 178 mm Hg 80-90 H = 385) O2 SATURATION ARTERIAL (BEAKER) 99.1 % 96.0-97.0 H (test code = 386) HCO3 ARTERIAL (BEAKER) (test code 21 mmol/L 21-29 = 388) BASE EXCESS ARTERIAL (BEAKER) -3.8 mmol/L -2.0-3.0 L (test code = 387) PATIENT TEMPERATURE (BEAKER) 38.7 (test code = 1818) FIO2 (BEAKER) (test code = 1819) 50.0 BLOOD GAS, [id number] 19:11:27 Test Item Value Reference Range Interpretation Comments PH ARTERIAL (BEAKER) (test code = 7.47 7.35-7.45 H 383) PCO2 ARTERIAL (BEAKER) (test code 31 mm Hg 35-45 L = 384) PO2 ARTERIAL (BEAKER) (test code 134 mm Hg 80-90 H = 385) O2 SATURATION ARTERIAL (BEAKER) 98.8 % 96.0-97.0 H (test code = 386) HCO3 ARTERIAL (BEAKER) (test code 22 mmol/L 21-29 = 388) BASE EXCESS ARTERIAL (BEAKER) -1.4 mmol/L -2.0-3.0 (test code = 387) PATIENT TEMPERATURE (BEAKER) 37.5 (test code = 1818) FIO2 (BEAKER) (test code = 1819) 40.0 POCT-GLUCOSE [id number] 15:06:41 Test Item Value Reference Range Interpretation Comments POC-GLUCOSE METER 84 mg/dL 70-110 : TESTED A T [facility] 6720 (BEAKER) (test code = [place], 1538) [address]: Concrete Building Assembler/Techni marissa ID = [id number] for Vickiet sLulu [id number] 14:10:39 Test Item Value Reference Range Interpretation Comments PHOSPHORUS (BEAKER) (test code = 3.3 mg/dL 2.3-4.7 604) Concrete Building Assembler ID - [id number] 14:10:38 Test Item Value Reference Range Interpretation Comments MAGNESIUM (BEAKER) (test code = 2.0 mg/dL 1.6-2.6 627) Concrete Building Assembler ID - JSBASIC METABOLIC [id number] 14:10:37 Test Item Value Reference Range Interpretation Comments SODIUM (BEAKER) 146 meq/L 136-145 H (test code = 381) POTASSIUM 4.6 meq/L 3.5-5.1 (BEAKER) (test code = 379) CHLORIDE (BEAKER) 112 meq/L 98-107 H (test code = 382) CO2 (BEAKER) 27 meq/L 22-29 (test code = 355) BLOOD UREA 11 mg/dL 7-21 NITROGEN (BEAKER) (test code = 354) CREATININE 1.17 mg/dL 0.57-1.25 (BEAKER) (test code = 358) GLUCOSE RANDOM 104 mg/dL 70-105 (BEAKER) (test code = 652) CALCIUM (BEAKER) 9.2 mg/dL 8.4-10.2 (test code = 697) EGFR (BEAKER) 72 Interpretatio n of eGFR (test code = mL/min/1.73 values Stage De scription 1092) sq m Result G1 Lucy l or high >=90 G2 Mildly decreased 60-89 G3a Mildl y to moderately 45-5 9 G3b Moderately to s everely 30-44 G4 Severl y decreased 15-29 G5 Kidney failure <15Reported eGF R is based on the CKD-EPI 2020 equation that d oes not use a race coefficientEsti mated GFR is not as accur ate as Creatinine Zuri warner in predicting glom erular filtration rate . Estimated GFR is not appl icable for dialysis patien ts Concrete Building Assembler ID - JSXR CHEST 1 VIEW PORTABLE / [id number] 13:34:59 [facility] : 1965 Sex: MEXAMINATION: XR CHEST 1 VIEW PORTABLE / BEDSIDE INDICATION: compare to intubatedCOMPARISON: CXR of earlierthe same day FINDINGS:LINES/TUBES: The patient is status post extubation. The remainder of thetubes are unchanged in position. LUNGS: The lungs are well inflated. There is interval worsening andpulmonary opacity which may represent worsening edema versuspneumonitis.PLEURA: No pleural effusion or pneumothorax.MEDIASTINUM: The cardiomediastinal silhouette appears normal in size andshape.BONES/SOFT TISSUES: No acute osseous injury.ABDOMEN: No free air under the diaphragm.IMPRESSION:Increased pulmonary opacity in the right lung which may represent edemaversus pneumonitis.Electronically Signed By: Atilio Minor02/04/2023 13:37 CDTWorkstation Name: [id number] W/PLT COUNT & AUTO [id number] 13:28:42 Test Item Value Reference Range Interpretation Comments WHITE BLOOD CELL COUNT (BEAKER) 10.9 K/ L 3.5-10.5 H (test code = 775) RED BLOOD CELL COUNT (BEAKER) 3.44 M/ L 4.63-6.08 L (test code = 761) HEMOGLOBIN (BEAKER) (test code = 9.8 GM/DL 13.7-17.5 L 410) HEMATOCRIT (BEAKER) (test code = 29.7 % 40.1-51.0 L 411) MEAN CORPUSCULAR VOLUME (BEAKER) 86 fL 79-92 (test code = 753) MEAN CORPUSCULAR HEMOGLOBIN 28.5 pg 25.7-32.2 (BEAKER) (test code = 751) MEAN CORPUSCULAR HEMOGLOBIN CONC 33.0 GM/DL 32.3-36.5 (BEAKER) (test code = 752) RED CELL DISTRIBUTION WIDTH 15.9 % 11.6-14.4 H (BEAKER) (test code = 412) PLATELET COUNT (BEAKER) (test 236 K/CU MM 150-450 code = 756) MEAN PLATELET VOLUME (BEAKER) 9.6 fL 9.4-12.4 (test code = 754) NUCLEATED RED BLOOD CELLS 0 /100 WBC 0-0 (BEAKER) (test code = 413) NEUTROPHILS RELATIVE PERCENT 74 % (BEAKER) (test code = 429) LYMPHOCYTES RELATIVE PERCENT 12 % (BEAKER) (test code = 430) MONOCYTES RELATIVE PERCENT 13 % (BEAKER) (test code = 431) EOSINOPHILS RELATIVE PERCENT 1 % (BEAKER) (test code = 432) BASOPHILS RELATIVE PERCENT 1 % (BEAKER) (test code = 437) NEUTROPHILS ABSOLUTE COUNT 8.06 K/ L 1.78-5.38 H (BEAKER) (test code = 670) LYMPHOCYTES ABSOLUTE COUNT 1.26 K/ L 1.32-3.57 L (BEAKER) (test code = 414) MONOCYTES ABSOLUTE COUNT (BEAKER) 1.39 K/ L 0.30-0.82 H (test code = 415) EOSINOPHILS ABSOLUTE COUNT 0.08 K/ L 0.04-0.54 (BEAKER) (test code = 416) BASOPHILS ABSOLUTE COUNT (BEAKER) 0.06 K/ L 0.01-0.08 (test code = 417) IMMATURE GRANULOCYTES-RELATIVE 0.60 % 0.00-1.00 PERCENT (BEAKER) (test code = 2801) LACTIC ACID, [id number] 13:28:40 Test Item Value Reference Range Interpretation Comments LACTATE BLOOD ARTERIAL (2) 1.6 mmol/L 0.5-2.0 (BEAKER) (test code = 2874) Concrete Building Assembler ID - JSCBC (HEMOGRAM ONLY)2023-02-04 13:19:00 Test Item Value Reference Range Interpretation Comments WHITE BLOOD CELL COUNT (BEAKER) 10.9 K/ L 3.5-10.5 H (test code = 775) RED BLOOD CELL COUNT (BEAKER) 3.44 M/ L 4.63-6.08 L (test code = 761) HEMOGLOBIN (BEAKER) (test code = 9.8 GM/DL 13.7-17.5 L 410) HEMATOCRIT (BEAKER) (test code = 29.7 % 40.1-51.0 L 411) MEAN CORPUSCULAR VOLUME (BEAKER) 86 fL 79-92 (test code = 753) MEAN CORPUSCULAR HEMOGLOBIN 28.5 pg 25.7-32.2 (BEAKER) (test code = 751) MEAN CORPUSCULAR HEMOGLOBIN CONC 33.0 GM/DL 32.3-36.5 (BEAKER) (test code = 752) RED CELL DISTRIBUTION WIDTH 15.9 % 11.6-14.4 H (BEAKER) (test code = 412) PLATELET COUNT (BEAKER) (test 236 K/CU MM 150-450 code = 756) MEAN PLATELET VOLUME (BEAKER) 9.6 fL 9.4-12.4 (test code = 754) NUCLEATED RED BLOOD CELLS 0 /100 WBC 0-0 (BEAKER) (test code = 413) BLOOD GAS, [id number] 13:10:33 Test Item Value Reference Range Interpretation Comments PH ARTERIAL (BEAKER) (test code = 7.47 7.35-7.45 H 383) PCO2 ARTERIAL (BEAKER) (test code 39 mm Hg 35-45 = 384) PO2 ARTERIAL (BEAKER) (test code = 203 mm Hg 80-90 H 385) O2 SATURATION ARTERIAL (BEAKER) 99.4 % 96.0-97.0 H (test code = 386) HCO3 ARTERIAL (BEAKER) (test code 28 mmol/L 21-29 = 388) BASE EXCESS ARTERIAL (BEAKER) 4.3 mmol/L -2.0-3.0 H (test code = 387) PATIENT TEMPERATURE (BEAKER) (test 38.9 code = 1818) FIO2 (BEAKER) (test code = 1819) 100.0 POCT-GLUCOSE [id number] 12:12:54 Test Item Value Reference Range Interpretation Comments POC-GLUCOSE METER 123 mg/dL 70-110 H : TESTED A T [facility] 6720 (BEAKER) (test code = [place] [facility], 1538) [id number]: Concrete Building Assembler/Techni marissa ID = [id number] for Po tts, Lulu POCT-GLUCOSE [id number] 11:07:56 Test Item Value Reference Range Interpretation Comments POC-GLUCOSE METER 122 mg/dL 70-110 H : TESTED A T [facility] 6720 (BEAKER) (test code = [place] [facility], 1538) [address]: Concrete Building Assembler/Techni marissa ID = [id number] for Po tts, Lulu HGB/HCT (H&H) - STAT [id number] 11:01:45 Test Item Value Reference Range Interpretation Comments HEMOGLOBIN (BEAKER) (test code = 10.7 GM/DL 13.0-16.8 L 410) HEMATOCRIT (BEAKER) (test code = 31.0 % 40.0-50.0 L 411) BLOOD GAS, [id number] 11:01:34 Test Item Value Reference Range Interpretation Comments PH ARTERIAL (BEAKER) (test code = 7.44 7.35-7.45 383) PCO2 ARTERIAL (BEAKER) (test code 39 mm Hg 35-45 = 384) PO2 ARTERIAL (BEAKER) (test code = 110 mm Hg 80-90 H 385) O2 SATURATION ARTERIAL (BEAKER) 97.8 % 96.0-97.0 H (test code = 386) HCO3 ARTERIAL (BEAKER) (test code 26 mmol/L 21-29 = 388) BASE EXCESS ARTERIAL (BEAKER) 2.0 mmol/L -2.0-3.0 (test code = 387) PATIENT TEMPERATURE (BEAKER) (test 38.9 code = 1818) FIO2 (BEAKER) (test code = 1819) 100.0 POTASSIUM-STAT [id number] 11:00:26 Test Item Value Reference Range Interpretation Comments POTASSIUM (BEAKER) (test code = 4.9 meq/L 3.6-5.5 379) GLUCOSE-STAT [id number] 11:00:24 Test Item Value Reference Range Interpretation Comments GLUCOSE RANDOM (SUNG) (test code 105 mg/dL 70-110 = 652) SODIUM NA-STAT [id number] 11:00:24 Test Item Value Reference Range Interpretation Comments SODIUM (SUNG) (test code = 381) 144 meq/L 136-145 XR CHEST 1 VIEW PORTABLE / [id number] 10:11:36 [facility] : 1965 Sex: MXR CHEST 1 VIEW PORTABLE / BEDSIDEINDICATION: daily morningCOMPARISON: Prior day's examTECHNIQUE: Portablefrontal view(s) of the chest. FINDINGS: Support Lines and Devices: Stable. Lungs and pleura: Unchanged airspace and pleural opacities. Nopneumothorax identified.Heart and mediastinum: Stable contours. Stable surgical changes.Additional findings: None.IMPRESSION:1. No significant change from prior exam.2. Hazy bilateral airspace opacities, suggesting pulmonary edema withor without pneumonia.Electronically Signed By: Keyur Johnson02/04/2023 10:13 CDTWorkstation Name: [id number] 09:01:41 Test Item Value Reference Range Interpretation Comments POC-GLUCOSE METER 123 mg/dL 70-110 H : TESTED A T [facility] 6720 (SUNG) (test code = [place], 1538) [id number]: Concrete Building Assembler/Techni marissa ID = [id number] for Po tts, Lulu BLOOD GAS, [id number] 08:55:09 Test Item Value Reference Range Interpretation Comments PH ARTERIAL (SUNG) (test code = 7.47 7.35-7.45 H 383) PCO2 ARTERIAL (BEAKER) (test code 38 mm Hg 35-45 = 384) PO2 ARTERIAL (BEAKER) (test code = 213 mm Hg 80-90 H 385) O2 SATURATION ARTERIAL (BEAKER) 99.5 % 96.0-97.0 H (test code = 386) HCO3 ARTERIAL (BEAKER) (test code 27 mmol/L 21-29 = 388) BASE EXCESS ARTERIAL (BEAKER) 3.3 mmol/L -2.0-3.0 H (test code = 387) PATIENT TEMPERATURE (BEAKER) (test 38.8 code = 1818) FIO2 (BEAKER) (test code = 1819) 100.0 POCT-GLUCOSE [id number] 08:04:55 Test Item Value Reference Range Interpretation Comments POC-GLUCOSE METER 122 mg/dL 70-110 H : TESTED A T [facility] 6720 (BEAKER) (test code = [place], 1538) [id number]: Concrete Building Assembler/Techni marissa ID = [id number] for Po ttsLulu HGB/HCT (H&H) - STAT [id number] 07:59:51 Test Item Value Reference Range Interpretation Comments HEMOGLOBIN (BEAKER) (test code = 10.5 GM/DL 13.0-16.8 L 410) HEMATOCRIT (BEAKER) (test code = 31.0 % 40.0-50.0 L 411) BLOOD GAS, [id number] 07:59:50 Test Item Value Reference Range Interpretation Comments PH ARTERIAL (BEAKER) (test code = 7.48 7.35-7.45 H 383) PCO2 ARTERIAL (BEAKER) (test code 37 mm Hg 35-45 = 384) PO2 ARTERIAL (BEAKER) (test code = 249 mm Hg 80-90 H 385) O2 SATURATION ARTERIAL (BEAKER) 99.6 % 96.0-97.0 H (test code = 386) HCO3 ARTERIAL (BEAKER) (test code 26 mmol/L 21-29 = 388) BASE EXCESS ARTERIAL (BEAKER) 3.5 mmol/L -2.0-3.0 H (test code = 387) PATIENT TEMPERATURE (BEAKER) (test 38.6 code = 1818) FIO2 (BEAKER) (test code = 1819) 50.0 POTASSIUM-STAT [id number] 07:59:37 Test Item Value Reference Range Interpretation Comments POTASSIUM (BEAKER) (test code = 4.5 meq/L 3.6-5.5 379) SODIUM NA-STAT [id number] 07:59:36 Test Item Value Reference Range Interpretation Comments SODIUM (BEAKER) (test code = 381) 142 meq/L 136-145 GLUCOSE-STAT [id number] 07:59:35 Test Item Value Reference Range Interpretation Comments GLUCOSE RANDOM (BEAKER) (test code 120 mg/dL 70-110 H = 652) BLOOD GAS, [id number] 06:03:10 Test Item Value Reference Range Interpretation Comments PH ARTERIAL (BEAKER) (test code = 7.51 7.35-7.45 H 383) PCO2 ARTERIAL (BEAKER) (test code 35 mm Hg 35-45 = 384) PO2 ARTERIAL (BEAKER) (test code = 77 mm Hg 80-90 L 385) O2 SATURATION ARTERIAL (BEAKER) 96.1 % 96.0-97.0 (test code = 386) HCO3 ARTERIAL (BEAKER) (test code 27 mmol/L 21-29 = 388) BASE EXCESS ARTERIAL (BEAKER) 4.4 mmol/L -2.0-3.0 H (test code = 387) PATIENT TEMPERATURE (BEAKER) (test 37.8 code = 1818) FIO2 (BEAKER) (test code = 1819) 80.0 HGB/HCT (H&H) - STAT [id number] 06:03:03 Test Item Value Reference Range Interpretation Comments HEMOGLOBIN (BEAKER) (test code = 10.6 GM/DL 13.0-16.8 L 410) HEMATOCRIT (BEAKER) (test code = 31.0 % 40.0-50.0 L 411) POTASSIUM-STAT [id number] 06:02:04 Test Item Value Reference Range Interpretation Comments POTASSIUM (BEAKER) (test code = 4.8 meq/L 3.6-5.5 379) SODIUM NA-STAT [id number] 06:02:03 Test Item Value Reference Range Interpretation Comments SODIUM (BEAKER) (test code = 381) 143 meq/L 136-145 GLUCOSE-STAT [id number] 06:02:02 Test Item Value Reference Range Interpretation Comments GLUCOSE RANDOM (BEAKER) (test code 123 mg/dL 70-110 H = 652) POCT-GLUCOSE [id number] 04:40:13 Test Item Value Reference Range Interpretation Comments POC-GLUCOSE METER 118 mg/dL 70-110 H : TESTED A T [facility] 6720 (BEAKER) (test code = [place], 1538) [address]: Concrete Building Assembler/Techni marissa ID = [id number] for Lon [place] [id number] 03:16:57 Test Item Value Reference Range Interpretation Comments PHOSPHORUS (BEAKER) (test code = 3.1 mg/dL 2.3-4.7 604) Concrete Building Assembler ID - [id number] 03:16:56 Test Item Value Reference Range Interpretation Comments MAGNESIUM (BEAKER) (test code = 1.9 mg/dL 1.6-2.6 627) Concrete Building Assembler ID - ADMINCOMPREHENSIVE METABOLIC [id number] 03:16:55 Test Item Value Reference Range Interpretation Comments TOTAL PROTEIN 5.2 gm/dL 6.0-8.3 L (BEAKER) (test code = 770) ALBUMIN (BEAKER) 2.7 g/dL 3.5-5.0 L (test code = 1145) ALKALINE 71 U/L 40-150 PHOSPHATASE (BEAKER) (test code = 346) BILIRUBIN TOTAL 1.3 mg/dL 0.2-1.2 H (BEAKER) (test code = 377) SODIUM (BEAKER) 146 meq/L 136-145 H (test code = 381) POTASSIUM (BEAKER) 4.6 meq/L 3.5-5.1 (test code = 379) CHLORIDE (BEAKER) 113 meq/L 98-107 H (test code = 382) CO2 (BEAKER) (test 25 meq/L 22-29 code = 355) BLOOD UREA 11 mg/dL 7-21 NITROGEN (BEAKER) (test code = 354) CREATININE 0.96 mg/dL 0.57-1.25 (BEAKER) (test code = 358) GLUCOSE RANDOM 146 mg/dL 70-105 H (BEAKER) (test code = 652) CALCIUM (BEAKER) 8.6 mg/dL 8.4-10.2 (test code = 697) AST (SGOT) 49 U/L 5-34 H (BEAKER) (test code = 353) ALT (SGPT) 19 U/L 6-55 (BEAKER) (test code = 347) EGFR (BEAKER) 92 Interpretatio n of eGFR (test code = 1092) mL/min/1.[address] age Description sq m Result G1 Lucy l or high >=90 G2 Mildly decreased 60-89 G3a Mildl y to moderately 45-5 9 G3b Moderately to s everely 30-44 G4 Severl y decreased 15-29 G5 Kidney failure <15Reported eGF R is based on the CKD-EPI 2020 equation that d oes not use a race coefficientEsti mated GFR is not as accur ate as Creatinine Zuri warner in predicting glom erular filtration rate . Estimated GFR is not appl icable for dialysis patien ts Concrete Building Assembler ID - ADMINLACTIC ACID, [id number] 03:09:08 Test Item Value Reference Range Interpretation Comments LACTATE BLOOD ARTERIAL (2) 2.5 mmol/L 0.5-2.0 H (BEAKER) (test code = 2874) Concrete Building Assembler ID - ADMINPT/[id number] 03:03:30 Test Item Value Reference Range Interpretation Comments PROTIME (BEAKER) (test 18.7 seconds 11.9-14.2 H code = 759) INR (BEAKER) (test 1.67 See_Comment [Automat ed code = 370) message] The sy stem which generated this result transmitted reference range : <=5.90. The reference range was not used to interpret this result as normal/abnormal . PARTIAL THROMBOPLASTIN 40.9 seconds 22.5-36.0 H TIME (BEAKER) (test code = 760) RECOMMENDED COUMADIN/WARFARIN INR THERAPY RANGESSTANDARD DOSE: 2.0 - 3.0 Includes: PROPHYLAXIS for venous thrombosis, systemic embolization; TREATMENT for venous thrombosis and/or pulmonary embolus.HIGH RISK: Target INR is 2.5-3.5 for patients with mechanical heart valves.BLOOD GAS, [id number] 02:59:58 Test Item Value Reference Range Interpretation Comments PH ARTERIAL (BEAKER) (test code = 7.47 7.35-7.45 H 383) PCO2 ARTERIAL (BEAKER) (test code 38 mm Hg 35-45 = 384) PO2 ARTERIAL (BEAKER) (test code = 109 mm Hg 80-90 H 385) O2 SATURATION ARTERIAL (BEAKER) 98.2 % 96.0-97.0 H (test code = 386) HCO3 ARTERIAL (BEAKER) (test code 27 mmol/L 21-29 = 388) BASE EXCESS ARTERIAL (BEAKER) 3.4 mmol/L -2.0-3.0 H (test code = 387) PATIENT TEMPERATURE (BEAKER) (test 37.6 code = 1818) FIO2 (BEAKER) (test code = 1819) 40.0 CALCIUM, [id number] 02:59:51 Test Item Value Reference Range Interpretation Comments CALCIUM IONIZED (BEAKER) (test 1.18 mmol/L 1.12-1.27 code = 698) PH, BLOOD (BEAKER) (test code = 7.48 1810) OXYGEN SATURATION, [id number] 02:58:28 Test Item Value Reference Range Interpretation Comments O2 SATURATION (MEASURED) (BEAKER) 61.2 % (test code = 1455) CBC W/PLT COUNT & AUTO [id number] 02:55:07 Test Item Value Reference Range Interpretation Comments WHITE BLOOD CELL COUNT (BEAKER) 6.7 K/ L 3.5-10.5 (test code = 775) RED BLOOD CELL COUNT (BEAKER) 3.18 M/ L 4.63-6.08 L (test code = 761) HEMOGLOBIN (BEAKER) (test code = 9.1 GM/DL 13.7-17.5 L 410) HEMATOCRIT (BEAKER) (test code = 27.2 % 40.1-51.0 L 411) MEAN CORPUSCULAR VOLUME (BEAKER) 86 fL 79-92 (test code = 753) MEAN CORPUSCULAR HEMOGLOBIN 28.6 pg 25.7-32.2 (BEAKER) (test code = 751) MEAN CORPUSCULAR HEMOGLOBIN CONC 33.5 GM/DL 32.3-36.5 (BEAKER) (test code = 752) RED CELL DISTRIBUTION WIDTH 15.5 % 11.6-14.4 H (BEAKER) (test code = 412) PLATELET COUNT (BEAKER) (test 207 K/CU MM 150-450 code = 756) MEAN PLATELET VOLUME (BEAKER) 9.4 fL 9.4-12.4 (test code = 754) NUCLEATED RED BLOOD CELLS 0 /100 WBC 0-0 (BEAKER) (test code = 413) NEUTROPHILS RELATIVE PERCENT 76 % (BEAKER) (test code = 429) LYMPHOCYTES RELATIVE PERCENT 11 % (BEAKER) (test code = 430) MONOCYTES RELATIVE PERCENT 11 % (BEAKER) (test code = 431) EOSINOPHILS RELATIVE PERCENT 2 % (BEAKER) (test code = 432) BASOPHILS RELATIVE PERCENT 0 % (BEAKER) (test code = 437) NEUTROPHILS ABSOLUTE COUNT 5.08 K/ L 1.78-5.38 (BEAKER) (test code = 670) LYMPHOCYTES ABSOLUTE COUNT 0.73 K/ L 1.32-3.57 L (BEAKER) (test code = 414) MONOCYTES ABSOLUTE COUNT (BEAKER) 0.71 K/ L 0.30-0.82 (test code = 415) EOSINOPHILS ABSOLUTE COUNT 0.10 K/ L 0.04-0.54 (BEAKER) (test code = 416) BASOPHILS ABSOLUTE COUNT (BEAKER) 0.03 K/ L 0.01-0.08 (test code = 417) IMMATURE GRANULOCYTES-RELATIVE 0.60 % 0.00-1.00 PERCENT (BEAKER) (test code = 2801) POCT-GLUCOSE [id number] 00:03:17 Test Item Value Reference Range Interpretation Comments POC-GLUCOSE METER 165 mg/dL 70-110 H : TESTED A T [facility] 6720 (BEAKER) (test code = NABOR Guardado [facility], 1538) [id number]: Concrete Building Assembler/Techni marissa ID = [id number] for Melecio sheehanLon guardado LACTIC ACID, [id number] 23:02:12 Test Item Value Reference Range Interpretation Comments LACTATE BLOOD ARTERIAL (2) 5.6 mmol/L 0.5-2.0 HH (BEAKER) (test code = 2874) Concrete Building Assembler ID - ADMINBLOOD GAS, [id number] 22:20:22 Test Item Value Reference Range Interpretation Comments PH ARTERIAL (BEAKER) (test code = 7.49 7.35-7.45 H 383) PCO2 ARTERIAL (BEAKER) (test code 33 mm Hg 35-45 L = 384) PO2 ARTERIAL (BEAKER) (test code = 98 mm Hg 80-90 H 385) O2 SATURATION ARTERIAL (BEAKER) 98.1 % 96.0-97.0 H (test code = 386) HCO3 ARTERIAL (BEAKER) (test code 25 mmol/L 21-29 = 388) BASE EXCESS ARTERIAL (BEAKER) 1.4 mmol/L -2.0-3.0 (test code = 387) PATIENT TEMPERATURE (BEAKER) (test 36.2 code = 1818) FIO2 (BEAKER) (test code = 1819) 100.0 HGB/HCT (H&H) - STAT [id number] 22:20:15 Test Item Value Reference Range Interpretation Comments HEMOGLOBIN (BEAKER) (test code = 7.6 GM/DL 13.0-16.8 L 410) HEMATOCRIT (BEAKER) (test code = 22.0 % 40.0-50.0 L 411) POTASSIUM-STAT [id number] 22:19:59 Test Item Value Reference Range Interpretation Comments POTASSIUM (BEAKER) (test code = 4.1 meq/L 3.6-5.5 379) GLUCOSE-STAT [id number] 22:19:58 Test Item Value Reference Range Interpretation Comments GLUCOSE RANDOM (BEAKER) (test code 189 mg/dL 70-110 H = 652) SODIUM NA-STAT [id number] 22:19:58 Test Item Value Reference Range Interpretation Comments SODIUM (BEAKER) (test code = 381) 141 meq/L 136-145 HGB/HCT (H&H) - STAT [id number] 21:36:22 Test Item Value Reference Range Interpretation Comments HEMOGLOBIN (BEAKER) (test code = 8.6 GM/DL 13.0-16.8 L 410) HEMATOCRIT (BEAKER) (test code = 25.0 % 40.0-50.0 L 411) BLOOD GAS, [id number] 21:36:21 Test Item Value Reference Range Interpretation Comments PH ARTERIAL (BEAKER) (test code = 7.48 7.35-7.45 H 383) PCO2 ARTERIAL (BEAKER) (test code 35 mm Hg 35-45 = 384) PO2 ARTERIAL (BEAKER) (test code = 105 mm Hg 80-90 H 385) O2 SATURATION ARTERIAL (BEAKER) 98.3 % 96.0-97.0 H (test code = 386) HCO3 ARTERIAL (BEAKER) (test code 26 mmol/L 21-29 = 388) BASE EXCESS ARTERIAL (BEAKER) 1.9 mmol/L -2.0-3.0 (test code = 387) PATIENT TEMPERATURE (BEAKER) (test 36.0 code = 1818) FIO2 (BEAKER) (test code = 1819) 40.0 POTASSIUM-STAT [id number] 21:36:16 Test Item Value Reference Range Interpretation Comments POTASSIUM (BEAKER) (test code = 3.9 meq/L 3.6-5.5 379) SODIUM NA-STAT [id number] 21:36:15 Test Item Value Reference Range Interpretation Comments SODIUM (BEAKER) (test code = 381) 143 meq/L 136-145 GLUCOSE-STAT [id number] 21:36:14 Test Item Value Reference Range Interpretation Comments GLUCOSE RANDOM (BEAKER) (test code 200 mg/dL 70-110 H = 652) LACTIC ACID, [id number] 21:27:58 Test Item Value Reference Range Interpretation Comments LACTATE BLOOD ARTERIAL (2) 4.4 mmol/L 0.5-2.0 HH (BEAKER) (test code = 2874) Concrete Building Assembler ID - BSKETONE, [id number] 21:05:19 Test Item Value Reference Range Interpretation Comments KETONES, BLOOD (BEAKER) (test code 0.1 mmol/L <0.4 = 1103) BLOOD GAS, [id number] 21:03:36 Test Item Value Reference Range Interpretation Comments PH ARTERIAL (BEAKER) (test code = 7.46 7.35-7.45 H 383) PCO2 ARTERIAL (BEAKER) (test code 38 mm Hg 35-45 = 384) PO2 ARTERIAL (BEAKER) (test code = 103 mm Hg 80-90 H 385) O2 SATURATION ARTERIAL (BEAKER) 98.0 % 96.0-97.0 H (test code = 386) HCO3 ARTERIAL (BEAKER) (test code 26 mmol/L = 388) BASE EXCESS ARTERIAL (BEAKER) 2.4 mmol/L -2.0-3.0 (test code = 387) PATIENT TEMPERATURE (BEAKER) (test 37.0 code = 1818) FIO2 (BEAKER) (test code = 1819) 40.0 HGB/HCT (H&H) - STAT [id number] 21:03:09 Test Item Value Reference Range Interpretation Comments HEMOGLOBIN (BEAKER) (test code = 8.6 GM/DL 13.0-16.8 L 410) HEMATOCRIT (BEAKER) (test code = 25.0 % 40.0-50.0 L 411) CALCIUM, [id number] 21:00:44 Test Item Value Reference Range Interpretation Comments CALCIUM IONIZED (BEAKER) (test 1.19 mmol/L 1.12-1.27 code = 698) PH, BLOOD (BEAKER) (test code = 7.46 1810) POTASSIUM-STAT [id number] 20:59:31 Test Item Value Reference Range Interpretation Comments POTASSIUM (BEAKER) (test code = 3.9 meq/L 3.6-5.5 379) SODIUM NA-STAT [id number] 20:59:30 Test Item Value Reference Range Interpretation Comments SODIUM (BEAKER) (test code = 381) 142 meq/L 136-145 GLUCOSE-STAT [id number] 20:59:29 Test Item Value Reference Range Interpretation Comments GLUCOSE RANDOM (BEAKER) (test code 201 mg/dL 70-110 H = 652) OXYGEN SATURATION, [id number] 20:59:05 Test Item Value Reference Range Interpretation Comments O2 SATURATION (MEASURED) (BEAKER) 50.7 % (test code = 1455) XR CHEST 1 VIEW PORTABLE / [id number] 20:53:06 [facility] : 1965 Sex: MEXAM:XR Chest, 1 ViewCLINICAL INDICATION: post -opTECHNIQUE: Frontal view of the chest.COMPARISON: 2022FINDINGS:Lungs and pleural spaces: Underinflated lungs with bilateral perihilarand bibasilaredema and/or atelectasis, increased since previous.Heart: See below. Mediastinum: There are mediastinal and left chest tubes in place. Nopneumothorax is seen.Bones/joints: There are multiple sternal wires. The cardiac silhouetteis moderately enlarged.Tubes, lines and devices: There is an endotracheal tube in place withthe tip 2.7 cm from the carlos. There is a right IJ introducer with aSwan-Michael catheter running to the right main pulmonary artery.IMPRESSION:1. There are mediastinal and left chest tubes in place. No pneumothoraxis seen.2. Underinflated lungs with bilateral perihilar and bibasilar edemaand/or atelectasis, increased since previous.3. There is an endotracheal tube in place with the tip 2.7 cm from thecarina. There is a right IJ introducer with a [place]-Michael catheter runningto the rightmain pulmonary artery.Electronically Signed By: Delvis Altamirano2023 20:55 CDTWorkstation Name: [id number] 19:18:50 Test Item Value Reference Range Interpretation Comments MAGNESIUM (BEAKER) (test code = 2.3 mg/dL 1.6-2.6 627) Concrete Building Assembler ID - [id number] 19:18:50 Test Item Value Reference Range Interpretation Comments PHOSPHORUS (BEAKER) (test code = 2.6 mg/dL 2.3-4.7 604) Concrete Building Assembler ID - BSBASIC METABOLIC [id number] 19:18:49 Test Item Value Reference Range Interpretation Comments SODIUM (BEAKER) 148 meq/L 136-145 H (test code = 381) POTASSIUM 3.9 meq/L 3.5-5.1 (BEAKER) (test code = 379) CHLORIDE (BEAKER) 111 meq/L 98-107 H (test code = 382) CO2 (BEAKER) 28 meq/L 22-29 (test code = 355) BLOOD UREA 11 mg/dL 7-21 NITROGEN (BEAKER) (test code = 354) CREATININE 0.98 mg/dL 0.57-1.25 (BEAKER) (test code = 358) GLUCOSE RANDOM 218 mg/dL 70-105 H (BEAKER) (test code = 652) CALCIUM (BEAKER) 9.0 mg/dL 8.4-10.2 (test code = 697) EGFR (BEAKER) 89 Interpretati on of eGFR (test code = mL/min/1.73 values Stage De scription 1092) sq m Result G1 Lucy l or high >=90 G2 Mildly decreased 60-89 G3a Mildl y to moderately 45-5 9 G3b Moderately to s everely 30-44 G4 Severl y decreased 15-29 G5 Kidney failure <15Reported eGF R is based on the CKD-EPI 2020 equation that d oes not use a race coefficientEsti mated GFR is not as accur ate as Creatinine Zuri warner in predicting glom erular filtration rate . Estimated GFR is not appl icable for dialysis patien ts Concrete Building Assembler ID - BSLACTIC ACID, [id number] 19:14:06 Test Item Value Reference Range Interpretation Comments LACTATE BLOOD ARTERIAL (2) 3.9 mmol/L 0.5-2.0 H (BEAKER) (test code = 2874) Concrete Building Assembler ID - [id number] 18:30:01 Test Item Value Reference Range Interpretation Comments PARTIAL THROMBOPLASTIN TIME 30.7 seconds 22.5-36.0 (BEAKER) (test code = 760) PROTHROMBIN [id number] 18:29:23 Test Item Value Reference Range Interpretation Comments PROTIME (BEAKER) 20.5 seconds 11.9-14.2 H (test code = 759) INR ([facility]) (test 1.88 See_Comment [Automat ed message] code = 370) The system Carlotz generated this result transmitted ref erence range: <=5.90. The reference range was not used to int erpret this result as normal/abnormal . RECOMMENDED COUMADIN/WARFARIN INR THERAPY RANGESSTANDARD DOSE: 2.0 - 3.0 Includes: PROPHYLAXIS for venous thrombosis, systemic embolization; TREATMENT for venous thrombosis and/or pulmonary embolus.HIGH RISK: Target INR is 2.5-3.5 for patients with mechanical heart valves.CBC W/PLT COUNT & AUTO [id number] 18:27:13 Test Item Value Reference Range Interpretation Comments WHITE BLOOD CELL COUNT 10.0 K/ L 3.5-10.5 (BEAKER) (test code = 775) RED BLOOD CELL COUNT 2.83 M/ L 4.63-6.08 L (BEAKER) (test code = 761) HEMOGLOBIN (BEAKER) 8.2 GM/DL 13.7-17.5 L (test code = 410) HEMATOCRIT (BEAKER) 24.4 % 40.1-51.0 L (test code = 411) MEAN CORPUSCULAR 86 fL 79-92 Discordant with VOLUME (BEAKER) (test previo us result. code = 753) Clinical assess ment advised MEAN CORPUSCULAR 29.0 pg 25.7-32.2 HEMOGLOBIN (BEAKER) (test code = 751) MEAN CORPUSCULAR 33.6 GM/DL 32.3-36.5 HEMOGLOBIN CONC (BEAKER) (test code = 752) RED CELL DISTRIBUTION 15.2 % 11.6-14.4 H WIDTH (BEAKER) (test code = 412) PLATELET COUNT 178 K/CU MM 150-450 (BEAKER) (test code = 756) MEAN PLATELET VOLUME 9.0 fL 9.4-12.4 L (BEAKER) (test code = 754) NUCLEATED RED BLOOD 0 /100 WBC 0-0 CELLS (BEAKER) (test code = 413) NEUTROPHILS RELATIVE 78 % PERCENT (BEAKER) (test code = 429) LYMPHOCYTES RELATIVE 9 % PERCENT (BEAKER) (test code = 430) MONOCYTES RELATIVE 10 % PERCENT (BEAKER) (test code = 431) EOSINOPHILS RELATIVE 2 % PERCENT (BEAKER) (test code = 432) BASOPHILS RELATIVE 0 % PERCENT (BEAKER) (test code = 437) NEUTROPHILS ABSOLUTE 7.78 K/ L 1.78-5.38 H COUNT (BEAKER) (test code = 670) LYMPHOCYTES ABSOLUTE 0.92 K/ L 1.32-3.57 L COUNT (BEAKER) (test code = 414) MONOCYTES ABSOLUTE 1.04 K/ L 0.30-0.82 H COUNT (BEAKER) (test code = 415) EOSINOPHILS ABSOLUTE 0.15 K/ L 0.04-0.54 COUNT (BEAKER) (test code = 416) BASOPHILS ABSOLUTE 0.04 K/ L 0.01-0.08 COUNT (BEAKER) (test code = 417) IMMATURE 0.80 % 0.00-1.00 GRANULOCYTES-RELATIVE PERCENT (BEAKER) (test code = 2801) BLOOD GAS, [id number] 18:20:57 Test Item Value Reference Range Interpretation Comments PH ARTERIAL (BEAKER) (test code = 7.38 7.35-7.45 383) PCO2 ARTERIAL (BEAKER) (test code 48 mm Hg 35-45 H = 384) PO2 ARTERIAL (BEAKER) (test code = 182 mm Hg 80-90 H 385) O2 SATURATION ARTERIAL (BEAKER) 99.2 % 96.0-97.0 H (test code = 386) HCO3 ARTERIAL (BEAKER) (test code 28 mmol/L 21-29 = 388) BASE EXCESS ARTERIAL (BEAKER) 2.3 mmol/L -2.0-3.0 (test code = 387) PATIENT TEMPERATURE (BEAKER) (test 37.0 code = 1818) FIO2 (BEAKER) (test code = 1819) 21.0 HGB/HCT (H&H) - STAT [id number] 18:20:48 Test Item Value Reference Range Interpretation Comments HEMOGLOBIN (BEAKER) (test code = 9.3 GM/DL 13.0-16.8 L 410) HEMATOCRIT (BEAKER) (test code = 27.0 % 40.0-50.0 L 411) CALCIUM, [id number] 18:20:04 Test Item Value Reference Range Interpretation Comments CALCIUM IONIZED (BEAKER) (test 1.20 mmol/L 1.12-1.27 code = 698) PH, BLOOD (BEAKER) (test code = 7.38 1810) OXYGEN SATURATION, [id number] 18:20:04 Test Item Value Reference Range Interpretation Comments O2 SATURATION (MEASURED) (BEAKER) 80.8 % (test code = 1455) POTASSIUM-STAT [id number] 18:19:48 Test Item Value Reference Range Interpretation Comments POTASSIUM (BEAKER) (test code = 3.7 meq/L 3.6-5.5 379) SODIUM NA-STAT [id number] 18:19:41 Test Item Value Reference Range Interpretation Comments SODIUM (BEAKER) (test code = 381) 144 meq/L 136-145 GLUCOSE-STAT [id number] 18:19:39 Test Item Value Reference Range Interpretation Comments GLUCOSE RANDOM (BEAKER) (test code 214 mg/dL 70-110 H = 652) HGB/HCT (H&H) - STAT [id number] 17:07:23 Test Item Value Reference Range Interpretation Comments HEMOGLOBIN (BEAKER) (test code = 13.3 GM/DL 13.0-16.8 410) HEMATOCRIT (BEAKER) (test code = 39.0 % 40.0-50.0 L 411) BLOOD GAS, [id number] 17:07:22 Test Item Value Reference Range Interpretation Comments PH ARTERIAL (BEAKER) (test code = 7.45 7.35-7.45 383) PCO2 ARTERIAL (BEAKER) (test code 38 mm Hg 35-45 = 384) PO2 ARTERIAL (BEAKER) (test code = 164 mm Hg 80-90 H 385) O2 SATURATION ARTERIAL (BEAKER) 99.2 % 96.0-97.0 H (test code = 386) HCO3 ARTERIAL (BEAKER) (test code 26 mmol/L 21-29 = 388) BASE EXCESS ARTERIAL (BEAKER) 1.3 mmol/L -2.0-3.0 (test code = 387) PATIENT TEMPERATURE (BEAKER) (test 35.0 code = 1818) FIO2 (BEAKER) (test code = 1819) 100.0 POTASSIUM-STAT [id number] 17:06:47 Test Item Value Reference Range Interpretation Comments POTASSIUM (BEAKER) (test code = 3.8 meq/L 3.6-5.5 379) GLUCOSE-STAT [id number] 17:06:46 Test Item Value Reference Range Interpretation Comments GLUCOSE RANDOM (BEAKER) (test code 221 mg/dL 70-110 H = 652) SODIUM NA-STAT [id number] 17:06:46 Test Item Value Reference Range Interpretation Comments SODIUM (BEAKER) (test code = 381) 147 meq/L 136-145 H BLOOD GAS, [id number] 16:01:50 Test Item Value Reference Range Interpretation Comments PH ARTERIAL (BEAKER) (test code = 7.32 7.35-7.45 L 383) PCO2 ARTERIAL (BEAKER) (test code 55 mm Hg 35-45 H = 384) PO2 ARTERIAL (BEAKER) (test code = 159 mm Hg 80-90 H 385) O2 SATURATION ARTERIAL (BEAKER) 98.9 % 96.0-97.0 H (test code = 386) HCO3 ARTERIAL (BEAKER) (test code 28 mmol/L 21-29 = 388) BASE EXCESS ARTERIAL (BEAKER) 1.1 mmol/L -2.0-3.0 (test code = 387) PATIENT TEMPERATURE (BEAKER) (test 36.0 code = 1818) FIO2 (BEAKER) (test code = 1819) 100.0 HGB/HCT (H&H) - STAT [id number] 16:01:39 Test Item Value Reference Range Interpretation Comments HEMOGLOBIN (BEAKER) (test code = 9.7 GM/DL 13.0-16.8 L 410) HEMATOCRIT (BEAKER) (test code = 29.0 % 40.0-50.0 L 411) POTASSIUM-STAT [id number] 16:01:33 Test Item Value Reference Range Interpretation Comments POTASSIUM (BEAKER) (test code = 3.8 meq/L 3.6-5.5 379) SODIUM NA-STAT [id number] 16:01:32 Test Item Value Reference Range Interpretation Comments SODIUM (BEAKER) (test code = 381) 141 meq/L 136-145 GLUCOSE-STAT [id number] 16:01:31 Test Item Value Reference Range Interpretation Comments GLUCOSE RANDOM (BEAKER) (test code 245 mg/dL 70-110 H = 652) [id number] 15:29:20 Test Item Value Reference Range Interpretation Comments PARTIAL THROMBOPLASTIN TIME 28.0 seconds 22.5-36.0 (BEAKER) (test code = 760) [id number] 15:29:02 Test Item Value Reference Range Interpretation Comments FIBRINOGEN LEVEL (BEAKER) (test 320 mg/dl 225-434 code = 658) PROTHROMBIN [id number] 15:29:01 Test Item Value Reference Range Interpretation Comments PROTIME (BEAKER) 28.4 seconds 11.9-14.2 H (test code = 759) INR (BEAKER) (test 2.87 See_Comment [Automat ed message] code = 370) The system Carlotz generated this result transmitted ref erence range: <=5.90. The reference range was not used to int erpret this result as normal/abnormal . RECOMMENDED COUMADIN/WARFARIN INR THERAPY RANGESSTANDARD DOSE: 2.0 - 3.0 Includes: PROPHYLAXIS for venous thrombosis, systemic embolization; TREATMENT for venous thrombosis and/or pulmonary embolus.HIGH RISK: Target INR is 2.5-3.5 for patients with mechanical heart valves.PLATELET [id number] 15:23:26 Test Item Value Reference Range Interpretation Comments PLATELET COUNT (BEAKER) 133 K/CU MM 150-450 L Post op patient (test code = 756) Concrete Building Assembler ID - [id number] 15:23:07 Test Item Value Reference Range Interpretation Comments ACTIVATED CLOTTING TIME 119 sec : 74 -137 seconds, (BEAKER) (test code = Baseli ne: TESTED AT 441) [address], [facility] 30: Concrete Building Assembler/Techni marissa ID = [id number] for Cu rtis, Umer [id number] 15:23:07 Test Item Value Reference Range Interpretation Comments ACTIVATED CLOTTING TIME 672 sec : 74 -137 seconds, (BEAKER) (test code = Baseli ne: TESTED AT 441) [address], [facility] 30: Concrete Building Assembler/Techni marissa ID = [id number] for Cu rtis, Umer [id number] 15:23:06 Test Item Value Reference Range Interpretation Comments ACTIVATED CLOTTING TIME 137 sec : 74 -137 seconds, (BEAKER) (test code = Baseli ne: TESTED AT 441) [address], [facility] 30: Concrete Building Assembler/Techni marissa ID = [id number] for Cu rtis, Umer [id number] 15:22:28 Test Item Value Reference Range Interpretation Comments ACTIVATED CLOTTING TIME 859 sec : 74 -137 seconds, (BEAKER) (test code = Baseli ne: TESTED AT 441) [address], [facility] 30: Concrete Building Assembler/Techni marissa ID = [id number] for Cu rtis, Umer [id number] 15:22:27 Test Item Value Reference Range Interpretation Comments ACTIVATED CLOTTING TIME 907 sec : 74 -137 seconds, (BEAKER) (test code = Baseli ne: TESTED AT 441) [address], [facility] 30: Concrete Building Assembler/Techni marissa ID = [id number] for Cu rtis, Umer [id number] 15:22:27 Test Item Value Reference Range Interpretation Comments ACTIVATED CLOTTING TIME 444 sec : 74 -137 seconds, (BEAKER) (test code = Ld ne: TESTED AT 441) [facility] [address] [place], [address]: Concrete Building Assembler/Techni marissa ID = [id number] for Cu rtis, Umer BLOOD GAS, [id number] 14:54:10 Test Item Value Reference Range Interpretation Comments PH ARTERIAL (BEAKER) (test code = 7.43 7.35-7.45 383) PCO2 ARTERIAL (BEAKER) (test code 41 mm Hg 35-45 = 384) PO2 ARTERIAL (BEAKER) (test code = 131 mm Hg 80-90 H 385) O2 SATURATION ARTERIAL (BEAKER) 98.8 % 96.0-97.0 H (test code = 386) HCO3 ARTERIAL (BEAKER) (test code 27 mmol/L 21-29 = 388) BASE EXCESS ARTERIAL (BEAKER) 1.8 mmol/L -2.0-3.0 (test code = 387) PATIENT TEMPERATURE (BEAKER) (test 35.0 code = 1818) FIO2 (BEAKER) (test code = 1819) 100.0 HGB/HCT (H&H) - STAT [id number] 14:54:04 Test Item Value Reference Range Interpretation Comments HEMOGLOBIN (BEAKER) (test code = 7.6 GM/DL 13.0-16.8 L 410) HEMATOCRIT (BEAKER) (test code = 22.0 % 40.0-50.0 L 411) CALCIUM, [id number] 14:53:53 Test Item Value Reference Range Interpretation Comments CALCIUM IONIZED (BEAKER) (test 1.31 mmol/L 1.12-1.27 H code = 698) PH, BLOOD (BEAKER) (test code = 7.40 1810) POTASSIUM-STAT [id number] 14:53:52 Test Item Value Reference Range Interpretation Comments POTASSIUM (BEAKER) (test code = 3.8 meq/L 3.6-5.5 379) GLUCOSE-STAT [id number] 14:53:51 Test Item Value Reference Range Interpretation Comments GLUCOSE RANDOM (BEAKER) (test code 247 mg/dL 70-110 H = 652) SODIUM NA-STAT [id number] 14:53:51 Test Item Value Reference Range Interpretation Comments SODIUM (BEAKER) (test code = 381) 142 meq/L 136-145 HGB/HCT (H&H) - STAT [id number] 14:20:59 Test Item Value Reference Range Interpretation Comments HEMOGLOBIN (BEAKER) (test code = 7.5 GM/DL 13.0-16.8 L 410) HEMATOCRIT (BEAKER) (test code = 22.0 % 40.0-50.0 L 411) BLOOD GAS, [id number] 14:20:58 Test Item Value Reference Range Interpretation Comments PH ARTERIAL (BEAKER) (test code = 7.31 7.35-7.45 L 383) PCO2 ARTERIAL (BEAKER) (test code 49 mm Hg 35-45 H = 384) PO2 ARTERIAL (BEAKER) (test code 198 mm Hg 80-90 H = 385) O2 SATURATION ARTERIAL (BEAKER) 99.3 % 96.0-97.0 H (test code = 386) HCO3 ARTERIAL (BEAKER) (test code 25 mmol/L 21-29 = 388) BASE EXCESS ARTERIAL (BEAKER) -2.2 mmol/L -2.0-3.0 L (test code = 387) PATIENT TEMPERATURE (BEAKER) 35.2 (test code = 1818) FIO2 (BEAKER) (test code = 1819) 75.0 POTASSIUM-STAT [id number] 14:19:11 Test Item Value Reference Range Interpretation Comments POTASSIUM (BEAKER) (test code = 4.9 meq/L 3.6-5.5 379) SODIUM NA-STAT [id number] 14:19:10 Test Item Value Reference Range Interpretation Comments SODIUM (BEAKER) (test code = 381) 138 meq/L 136-145 GLUCOSE-STAT [id number] 14:19:09 Test Item Value Reference Range Interpretation Comments GLUCOSE RANDOM (BEAKER) (test code 264 mg/dL 70-110 H = 652) HGB/HCT (H&H) - STAT [id number] 13:55:54 Test Item Value Reference Range Interpretation Comments HEMOGLOBIN (BEAKER) (test code = 7.7 GM/DL 13.0-16.8 L 410) HEMATOCRIT (BEAKER) (test code = 23.0 % 40.0-50.0 L 411) BLOOD GAS, [id number] 13:55:53 Test Item Value Reference Range Interpretation Comments PH ARTERIAL (BEAKER) (test code = 7.40 7.35-7.45 383) PCO2 ARTERIAL (BEAKER) (test code 40 mm Hg 35-45 = 384) PO2 ARTERIAL (BEAKER) (test code 287 mm Hg 80-90 H = 385) O2 SATURATION ARTERIAL (BEAKER) 99.7 % 96.0-97.0 H (test code = 386) HCO3 ARTERIAL (BEAKER) (test code 26 mmol/L 21-29 = 388) BASE EXCESS ARTERIAL (BEAKER) -0.4 mmol/L -2.0-3.0 (test code = 387) PATIENT TEMPERATURE (BEAKER) 30.7 (test code = 1818) FIO2 (BEAKER) (test code = 1819) 70.0 POTASSIUM-STAT [id number] 13:53:39 Test Item Value Reference Range Interpretation Comments POTASSIUM (BEAKER) (test code = 4.5 meq/L 3.6-5.5 379) SODIUM NA-STAT [id number] 13:53:38 Test Item Value Reference Range Interpretation Comments SODIUM (BEAKER) (test code = 381) 139 meq/L 136-145 GLUCOSE-STAT [id number] 13:53:37 Test Item Value Reference Range Interpretation Comments GLUCOSE RANDOM (BEAKER) (test code 278 mg/dL 70-110 H = 652) BLOOD GAS, [id number] 13:37:50 Test Item Value Reference Range Interpretation Comments PH ARTERIAL (BEAKER) (test code = 7.42 7.35-7.45 383) PCO2 ARTERIAL (BEAKER) (test code 39 mm Hg 35-45 = 384) PO2 ARTERIAL (BEAKER) (test code 287 mm Hg 80-90 H = 385) O2 SATURATION ARTERIAL (BEAKER) 99.7 % 96.0-97.0 H (test code = 386) HCO3 ARTERIAL (BEAKER) (test code 26 mmol/L 21-29 = 388) BASE EXCESS ARTERIAL (BEAKER) -0.1 mmol/L -2.0-3.0 (test code = 387) PATIENT TEMPERATURE (BEAKER) 30.2 (test code = 1818) FIO2 (BEAKER) (test code = 1819) 70.0 HGB/HCT (H&H) - STAT [id number] 13:37:50 Test Item Value Reference Range Interpretation Comments HEMOGLOBIN (BEAKER) (test code = 7.9 GM/DL 13.0-16.8 L 410) HEMATOCRIT (BEAKER) (test code = 23.0 % 40.0-50.0 L 411) POTASSIUM-STAT [id number] 13:37:39 Test Item Value Reference Range Interpretation Comments POTASSIUM (BEAKER) (test code = 4.8 meq/L 3.6-5.5 379) SODIUM NA-STAT [id number] 13:37:38 Test Item Value Reference Range Interpretation Comments SODIUM (BEAKER) (test code = 381) 139 meq/L 136-145 GLUCOSE-STAT [id number] 13:37:32 Test Item Value Reference Range Interpretation Comments GLUCOSE RANDOM (BEAKER) (test code 284 mg/dL 70-110 H = 652) HGB/HCT (H&H) - STAT [id number] 13:14:58 Test Item Value Reference Range Interpretation Comments HEMOGLOBIN (BEAKER) (test code = 6.1 GM/DL 13.0-16.8 L 410) HEMATOCRIT (BEAKER) (test code = 18.0 % 40.0-50.0 L 411) BLOOD GAS, [id number] 13:14:57 Test Item Value Reference Range Interpretation Comments PH ARTERIAL (BEAKER) (test code = 7.45 7.35-7.45 383) PCO2 ARTERIAL (BEAKER) (test code 41 mm Hg 35-45 = 384) PO2 ARTERIAL (BEAKER) (test code = 400 mm Hg 80-90 H 385) O2 SATURATION ARTERIAL (BEAKER) 99.8 % 96.0-97.0 H (test code = 386) HCO3 ARTERIAL (BEAKER) (test code 29 mmol/L 21-29 = 388) BASE EXCESS ARTERIAL (BEAKER) 3.8 mmol/L -2.0-3.0 H (test code = 387) PATIENT TEMPERATURE (BEAKER) (test 34.5 code = 1818) FIO2 (BEAKER) (test code = 1819) 80.0 POTASSIUM-STAT [id number] 13:14:34 Test Item Value Reference Range Interpretation Comments POTASSIUM (BEAKER) (test code = 4.2 meq/L 3.6-5.5 379) SODIUM NA-STAT [id number] 13:14:33 Test Item Value Reference Range Interpretation Comments SODIUM (BEAKER) (test code = 381) 138 meq/L 136-145 GLUCOSE-STAT [id number] 13:14:32 Test Item Value Reference Range Interpretation Comments GLUCOSE RANDOM (BEAKER) (test code 275 mg/dL 70-110 H = 652) KETONE, [id number] 13:11:23 Test Item Value Reference Range Interpretation Comments KETONES, BLOOD (BEAKER) (test code 4.0 mmol/L <0.4 H = 1103) HGB/HCT (H&H) - STAT [id number] 12:23:30 Test Item Value Reference Range Interpretation Comments HEMOGLOBIN (BEAKER) (test code = 8.6 GM/DL 13.0-16.8 L 410) HEMATOCRIT (BEAKER) (test code = 25.0 % 40.0-50.0 L 411) BLOOD GAS, [id number] 12:23:29 Test Item Value Reference Range Interpretation Comments PH ARTERIAL (BEAKER) (test code = 7.27 7.35-7.45 L 383) PCO2 ARTERIAL (BEAKER) (test code 42 mm Hg 35-45 = 384) PO2 ARTERIAL (BEAKER) (test code 177 mm Hg 80-90 H = 385) O2 SATURATION ARTERIAL (BEAKER) 99.1 % 96.0-97.0 H (test code = 386) HCO3 ARTERIAL (BEAKER) (test code 19 mmol/L 21-29 L = 388) BASE EXCESS ARTERIAL (BEAKER) -7.4 mmol/L -2.0-3.0 L (test code = 387) PATIENT TEMPERATURE (BEAKER) 35.4 (test code = 1818) FIO2 (BEAKER) (test code = 1819) 100.0 CALCIUM, [id number] 12:21:35 Test Item Value Reference Range Interpretation Comments CALCIUM IONIZED (BEAKER) (test 1.17 mmol/L 1.12-1.27 code = 698) PH, BLOOD (BEAKER) (test code = 7.25 1810) SODIUM NA-STAT [id number] 12:20:54 Test Item Value Reference Range Interpretation Comments SODIUM (BEAKER) (test code = 381) 138 meq/L 136-145 POTASSIUM-STAT [id number] 12:20:54 Test Item Value Reference Range Interpretation Comments POTASSIUM (BEAKER) (test code = 4.7 meq/L 3.6-5.5 379) GLUCOSE-STAT [id number] 12:20:53 Test Item Value Reference Range Interpretation Comments GLUCOSE RANDOM (BEAKER) (test code 356 mg/dL 70-110 H = 652) CALCIUM, [id number] 10:53:37 Test Item Value Reference Range Interpretation Comments CALCIUM IONIZED (BEAKER) (test 1.12 mmol/L 1.12-1.27 code = 698) PH, BLOOD (BEAKER) (test code = 7.34 1810) HGB/HCT (H&H) - STAT [id number] 10:53:36 Test Item Value Reference Range Interpretation Comments HEMOGLOBIN (BEAKER) (test code = 9.5 GM/DL 13.0-16.8 L 410) HEMATOCRIT (BEAKER) (test code = 28.0 % 40.0-50.0 L 411) BLOOD GAS, [id number] 10:53:35 Test Item Value Reference Range Interpretation Comments PH ARTERIAL (BEAKER) (test code = 7.36 7.35-7.45 383) PCO2 ARTERIAL (BEAKER) (test code 32 mm Hg 35-45 L = 384) PO2 ARTERIAL (BEAKER) (test code 359 mm Hg 80-90 H = 385) O2 SATURATION ARTERIAL (BEAKER) 99.8 % 96.0-97.0 H (test code = 386) HCO3 ARTERIAL (BEAKER) (test code 18 mmol/L 21-29 L = 388) BASE EXCESS ARTERIAL (BEAKER) -7.1 mmol/L -2.0-3.0 L (test code = 387) PATIENT TEMPERATURE (BEAKER) 36.0 (test code = 1818) FIO2 (BEAKER) (test code = 1819) 100.0 POTASSIUM-STAT [id number] 10:52:32 Test Item Value Reference Range Interpretation Comments POTASSIUM (BEAKER) (test code = 5.3 meq/L 3.6-5.5 379) SODIUM NA-STAT [id number] 10:52:31 Test Item Value Reference Range Interpretation Comments SODIUM (BEAKER) (test code = 381) 135 meq/L 136-145 L GLUCOSE-STAT [id number] 10:52:30 Test Item Value Reference Range Interpretation Comments GLUCOSE RANDOM (SUNG) (test code 396 mg/dL 70-110 H = 652) TISSUE [id number] 09:57:11Surgical Pathology Report Case: [id number] Authorizing Provider: Sumaya Mckeon MD Collected: 01/29/2023 05:47 PM Ordering Location: [address] Received: 02/01/2023 08:37 AM Service Pathologist: Sharon Ramesh MD Specimens: A) - Leg, Right B) - Leg, Right A. RIGHT LEG, SKIN PUNCHBIOPSY: - FAVOR BULLOUS PEMPHIGOID - CLINICAL CORRELATION, INCLUDING CORRELATION WITH SEROLOGIC STUDIES, IS RECOMMENDED - PLEASE SEE PART B AND COMMENT BELOWB. RIGHT LEG, SKIN PUNCH BIOPSY FOR DIRECT IM MUNOFLUORESCENCE: - IGA, IGM, AND C3 IMMUNOFLUORESCENCE AT DERMAL-EPIDERMAL JUNCTION - NEGATIVE IGG IMMUNOFLUORESCENCE - PLEASE SEE COMMENT BELOW Signing Pathologist Direct Phone Line: [phone] signed by Sharon Ramesh MD on 2023 at 9:57 AMThe H&E features are typical for bullous pemphigoid. But the immunofluorescence pattern seen here is not the typical pattern for this condition. However, a small percentage of bullous pemphigoid cases may have unusual immunofluorescence patterns. The differential diagnosis given the pattern includes linear IgA bullous dermatosis. But overall, bullous pemphigoid is favored. Therefore, clinical correlation, including correlation with serologic studies, is recommended.65854, 21835 X 4A. Leg, RightReceived in formalin labeled the patient's name, medical record number, and "RL" is 1 rubio- white to rubio-pink skin punch with a diameter of0.3 cm and excised to a depth of 0.3 cm. The specimen is inked blue and submitted entirely in A1.B. Leg, RightReceived in formalin labeled the patient's name, medical number, and "RL" is 1 rubio-white skin punch with a diameter of 0.3 cm and excised to a depth of 0.2 cm, which is submitted in toto for immunofluorescent studies.[place]. Sections show skin with partial thickness epidermal necrosis,a subepidermal vesicle, and numerous eosinophils.B. Frozen sections show skin up to the reticular dermis. There is IgA, IgM, and C3 immunofluorescence at the dermal- epidermal junction. IgG is negative.The interpretation of this case included the use of immunohistochemistry or special stains.Control Slides Examined: In-house known positive controls were evaluated along with the test tissue. These control slides run alongside of the patients sample show appropriate staining. Internal positive and negative controls when available are evaluated Immunohistochemistry technical testing was performed at [facility], Pathology Laboratory where it was developed and its performance characteristics were determined. It has not been cleared or approved by the U.S. Food and Drug Administration. The FDA has determined that such clearance or approval is not necessary. The test is used for clinical purposes. It should not be regarded as investigational or for research. This laboratory is certified under the Clinical Laboratory Improvement Amendments of 1988 (CLIA-88) as qualified to performhigh complexity clinical laboratory testing.BASIC METABOLIC [id number] 07:55:05 Test Item Value Reference Range Interpretation Comments SODIUM (BEAKER) 137 meq/L 136-145 (test code = 381) POTASSIUM 4.6 meq/L 3.5-5.1 (BEAKER) (test code = 379) CHLORIDE (BEAKER) 106 meq/L 98-107 (test code = 382) CO2 (BEAKER) 19 meq/L 22-29 L (test code = 355) BLOOD UREA 9 mg/dL 7-21 NITROGEN (BEAKER) (test code = 354) CREATININE 1.07 mg/dL 0.57-1.25 (BEAKER) (test code = 358) GLUCOSE RANDOM 311 mg/dL 70-105 H (BEAKER) (test code = 652) CALCIUM (BEAKER) 8.4 mg/dL 8.4-10.2 (test code = 697) EGFR (BEAKER) 80 Interpretatio n of eGFR (test code = mL/min/1.73 values Stage De scription 1092) sq m Result G1 Lucy l or high >=90 G2 Mildly decreased 60-89 G3a Mildl y to moderately 45-5 9 G3b Moderately to s everely 30-44 G4 Severl y decreased 15-29 G5 Kidney failure <15Reported eGF R is based on the CKD-EPI 2020 equation that d oes not use a race coefficientEsti mated GFR is not as accur ate as Creatinine Zuri warner in predicting glom erular filtration rate . Estimated GFR is not appl icable for dialysis patien ts Concrete Building Assembler ID - EMOperator ID - EMOperator ID - [id number] 06:57:32 Test Item Value Reference Range Interpretation Comments PHOSPHORUS (BEAKER) (test code = 3.4 mg/dL 2.3-4.7 604) Concrete Building Assembler ID - [id number] 06:57:31 Test Item Value Reference Range Interpretation Comments MAGNESIUM (BEAKER) (test code = 1.9 mg/dL 1.6-2.6 627) Concrete Building Assembler ID - EMPOCT-GLUCOSE [id number] 06:37:23 Test Item Value Reference Range Interpretation Comments POC-GLUCOSE METER 376 mg/dL 70-110 H : TESTED A T [facility] 6720 (BEAKER) (test code = NABOR Guardado [facility], 1538) [id number]: Concrete Building Assembler/Techni marissa ID = [id number] for KARSTEN SIDHU CBC W/PLT COUNT & AUTO [id number] 05:49:17 Test Item Value Reference Range Interpretation Comments WHITE BLOOD CELL COUNT (BEAKER) 9.9 K/ L 3.5-10.5 (test code = 775) RED BLOOD CELL COUNT (BEAKER) 3.01 M/ L 4.63-6.08 L (test code = 761) HEMOGLOBIN (BEAKER) (test code = 8.5 GM/DL 13.7-17.5 L 410) HEMATOCRIT (BEAKER) (test code = 27.1 % 40.1-51.0 L 411) MEAN CORPUSCULAR VOLUME (BEAKER) 90 fL 79-92 (test code = 753) MEAN CORPUSCULAR HEMOGLOBIN 28.2 pg 25.7-32.2 (BEAKER) (test code = 751) MEAN CORPUSCULAR HEMOGLOBIN CONC 31.4 GM/DL 32.3-36.5 L (BEAKER) (test code = 752) RED CELL DISTRIBUTION WIDTH 15.2 % 11.6-14.4 H (BEAKER) (test code = 412) PLATELET COUNT (BEAKER) (test 481 K/CU MM 150-450 H code = 756) MEAN PLATELET VOLUME (BEAKER) 9.7 fL 9.4-12.4 (test code = 754) NUCLEATED RED BLOOD CELLS 0 /100 WBC 0-0 (BEAKER) (test code = 413) NEUTROPHILS RELATIVE PERCENT 66 % (BEAKER) (test code = 429) LYMPHOCYTES RELATIVE PERCENT 14 % (BEAKER) (test code = 430) MONOCYTES RELATIVE PERCENT 8 % (BEAKER) (test code = 431) EOSINOPHILS RELATIVE PERCENT 11 % (BEAKER) (test code = 432) BASOPHILS RELATIVE PERCENT 1 % (BEAKER) (test code = 437) NEUTROPHILS ABSOLUTE COUNT 6.57 K/ L 1.78-5.38 H (BEAKER) (test code = 670) LYMPHOCYTES ABSOLUTE COUNT 1.39 K/ L 1.32-3.57 (BEAKER) (test code = 414) MONOCYTES ABSOLUTE COUNT (BEAKER) 0.74 K/ L 0.30-0.82 (test code = 415) EOSINOPHILS ABSOLUTE COUNT 1.07 K/ L 0.04-0.54 H (BEAKER) (test code = 416) BASOPHILS ABSOLUTE COUNT (BEAKER) 0.07 K/ L 0.01-0.08 (test code = 417) IMMATURE GRANULOCYTES-RELATIVE 0.70 % 0.00-1.00 PERCENT (BEAKER) (test code = 2801) [id number] 05:47:46 Test Item Value Reference Range Interpretation Comments PARTIAL THROMBOPLASTIN TIME 33.6 seconds 22.5-36.0 (BEAKER) (test code = 760) CTA AAA AND [id number] 22:20:18 [facility] 1965 Sex: MEXAM:CT Angiography Abdomen and Pelvis With Runoff to the LowerExtremities With Intravenous ContrastCLINICAL INDICATION: Claudication or leg ischemiaTECHNIQUE: Axial computed tomographic angiography images of theabdomen, pelvis and lower extremities with intravenous contrast. ThisCT exam was performed using one or more of the following dose reductiontechniques: automated exposure control, adjustment of the mA and/or kVaccording to patient size, and/or use of iterative reconstructiontechnique. MIP reconstructed images were created and reviewed.COMPARISON: No relevant prior studies available.FINDINGS:VASCU LATURE:Aorta: See below. Celiac trunk and mesenteric arteries: No acute findings. No occlusionor significant stenosis.Renal arteries: No acute findings. No occlusion or significantstenosis.Right iliac arteries: No acute findings. No occlusion or significantstenosis.Right femoral/popliteal arteries: 20% stenosis of the right poplitealartery. 20-30% stenosis proximal right superficial femoral artery.There is a patent stent in the distal right superficial femoral arterywith mild 30% in-stent restenosis.Right calf/foot arteries: The right posterior tibial artery is occludedat its origin. There is two vessel runoff in the right calf.Left iliac arteries: No acute findings. No occlusion or significantstenosis.Left femoral/popliteal arteries: There is a patent stent in the leftsuperficial femoral artery with 20% in-stent restenosis. 20% stenosisof the left popliteal artery.Left calf/foot arteries: Thereis two vessel runoff in the proximalleft calf. The left posterior tibial artery is occluded. There is motionartifact. The distal anterior tibial artery appears occluded at theankle. The peroneal arteryis patent.Lung bases: Unremarkable. No mass. No consolidation.ABDOMEN:Liver: Unremarkable. No mass.Gallbladder and bile ducts: Small amount of sludge in the gallbladder. No calcified stones. No ductal d ilation.Pancreas: Unremarkable. No ductal dilation. No mass.Spleen: Unremarkable. No splenomegaly.Adrenals: Unremarkable. No mass.Kidneys and ureters: Kidneys mild atherosclerotic plaque in theinfrarenal abdominal aorta without aneurysm or dissection. Nohydronephrosis.Stomach and bowel: Unremarkable. No obstruction. No mucosalthickening.PELVIS:Appendix: No findings to suggest acute appendicitis.Bladder: Unremarkable. No mass.Reproductive: Unremarkable as visualized.ABDOMEN, PELVIS and LOWER EXTREMITIES:Intraperitoneal space: Unremarkable. No significant fluid collection. No free air.Bones/joints: No acute fracture. No dislocation.Soft tissues: Unremarkable.Lymph nodes: Unremarkable. No enlarged lymph nodes.IMPRESSION:1. 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 Thereis two vessel runoff in the right calf.2. There is two vessel runoff in the proximal left calf. The leftposterior tibial artery is occluded. There is motion artifact. Thedistal anterior tibial artery appears occluded at the ankle. Theperoneal artery is patent.3. There is a patent stent in the left superficial femoral artery with20% in-stent restenosis.4. 20- 30% stenosis proximal right superficial femoral artery.There ludmila patent stent in the distal right superficial femoral artery with mild30% in-stent restenosi s.Electronically Signed By: Delvis Altamirano02/02/2023 22:22 CDTWorkstation Name: [id number] 22:04:17 Test Item Value Reference Range Interpretation Comments POC-GLUCOSE METER 118 mg/dL 70-110 H : TESTED A T [facility] 6720 (AKER) (test code = [facility], 1538) [id number]: Concrete Building Assembler/Techni marissa ID = [id number] for JEAN-PIERRE WORTHINGTON RA [id number] 17:59:28 Test Item Value Reference Range Interpretation Comments PARTIAL THROMBOPLASTIN TIME 51.6 seconds 22.5-36.0 H (AKER) (test code = 760) POCT-GLUCOSE [id number] 17:53:39 Test Item Value Reference Range Interpretation Comments POC-GLUCOSE METER 63 mg/dL 70-110 L : TESTED A T [facility] 6720 (BEAKER) (test code = [facility], 1538) [id number]: Concrete Building Assembler/Techni marissa ID = [id number] for JAYA DANIELLE [id number] 09:37:38 Test Item Value Reference Range Interpretation Comments PARTIAL THROMBOPLASTIN TIME 31.6 seconds 22.5-36.0 (BEAKER) (test code = 760) CBC (HEMOGRAM ONLY)2023-02-02 09:37:19 Test Item Value Reference Range Interpretation Comments WHITE BLOOD CELL COUNT (BEAKER) 8.8 K/ L 3.5-10.5 (test code = 775) RED BLOOD CELL COUNT (BEAKER) 2.87 M/ L 4.63-6.08 L (test code = 761) HEMOGLOBIN (BEAKER) (test code = 8.1 GM/DL 13.7-17.5 L 410) HEMATOCRIT (BEAKER) (test code = 25.8 % 40.1-51.0 L 411) MEAN CORPUSCULAR VOLUME (BEAKER) 90 fL 79-92 (test code = 753) MEAN CORPUSCULAR HEMOGLOBIN 28.2 pg 25.7-32.2 (BEAKER) (test code = 751) MEAN CORPUSCULAR HEMOGLOBIN CONC 31.4 GM/DL 32.3-36.5 L (BEAKER) (test code = 752) RED CELL DISTRIBUTION WIDTH 15.0 % 11.6-14.4 H (BEAKER) (test code = 412) PLATELET COUNT (BEAKER) (test 470 K/CU MM 150-450 H code = 756) MEAN PLATELET VOLUME (BEAKER) 9.8 fL 9.4-12.4 (test code = 754) NUCLEATED RED BLOOD CELLS 0 /100 WBC 0-0 (BEAKER) (test code = 413) POCT-GLUCOSE [id number] 09:10:45 Test Item Value Reference Range Interpretation Comments POC-GLUCOSE METER 245 mg/dL 70-110 H : [facility] (BE[facility]ER[facility] (test code = BLANC[facility] Guardado [facility], 1538) [address]: Concrete Building Assembler/Techni marissa ID = [id number] for JAYA CORDERO [id number] 03:25:59 Test Item Value Reference Range Interpretation Comments PARTIAL THROMBOPLASTIN TIME 37.4 seconds 22.5-36.0 H (BEAKER) (test code = 760) [id number] 03:13:34 Test Item Value Reference Range Interpretation Comments MAGNESIUM (BEAKER) (test code = 1.8 mg/dL 1.6-2.6 627) Concrete Building Assembler ID - [id number] 03:13:34 Test Item Value Reference Range Interpretation Comments PHOSPHORUS (BEAKER) (test code = 2.7 mg/dL 2.3-4.7 604) Concrete Building Assembler ID - ADMINBASIC METABOLIC [id number] 03:13:33 Test Item Value Reference Range Interpretation Comments SODIUM (BEAKER) 137 meq/L 136-145 (test code = 381) POTASSIUM 4.4 meq/L 3.5-5.1 (BEAKER) (test code = 379) CHLORIDE (BEAKER) 105 meq/L 98-107 (test code = 382) CO2 (BEAKER) 21 meq/L 22-29 L (test code = 355) BLOOD UREA 15 mg/dL 7-21 NITROGEN (BEAKER) (test code = 354) CREATININE 1.25 mg/dL 0.57-1.25 (BEAKER) (test code = 358) GLUCOSE RANDOM 175 mg/dL 70-105 H (BEAKER) (test code = 652) CALCIUM (BEAKER) 8.4 mg/dL 8.4-10.2 (test code = 697) EGFR (BEAKER) 67 Interpretatio n of eGFR (test code = mL/min/1.73 values Stage D escription 1092) sq m Result G1 Lucy l or high >=90 G2 Mildly decreased 60-89 G3a Mildl y to moderately 45-5 9 G3b Moderately to s everely 30-44 G4 Severl y decreased 15-29 G5 Kidney failure <15Reported eGF R is based on the CKD-EPI 2020 equation that d oes not use a race coefficientEsti mated GFR is not as accur ate as Creatinine Zuri hylton in predicting glom erular filtration rate . Estimated GFR is not appl icable for dialysis patien ts Concrete Building Assembler ID - ADMINCBC W/PLT COUNT & AUTO [id number] 03:00:12 Test Item Value Reference Range Interpretation Comments WHITE BLOOD CELL COUNT (BEAKER) 10.2 K/ L 3.5-10.5 (test code = 775) RED BLOOD CELL COUNT (BEAKER) 2.80 M/ L 4.63-6.08 L (test code = 761) HEMOGLOBIN (BEAKER) (test code = 7.9 GM/DL 13.7-17.5 L 410) HEMATOCRIT (BEAKER) (test code = 24.7 % 40.1-51.0 L 411) MEAN CORPUSCULAR VOLUME (BEAKER) 88 fL 79-92 (test code = 753) MEAN CORPUSCULAR HEMOGLOBIN 28.2 pg 25.7-32.2 (BEAKER) (test code = 751) MEAN CORPUSCULAR HEMOGLOBIN CONC 32.0 GM/DL 32.3-36.5 L (BEAKER) (test code = 752) RED CELL DISTRIBUTION WIDTH 14.9 % 11.6-14.4 H (BEAKER) (test code = 412) PLATELET COUNT (BEAKER) (test 488 K/CU MM 150-450 H code = 756) MEAN PLATELET VOLUME (BEAKER) 9.5 fL 9.4-12.4 (test code = 754) NUCLEATED RED BLOOD CELLS 0 /100 WBC 0-0 (BEAKER) (test code = 413) NEUTROPHILS RELATIVE PERCENT 62 % (BEAKER) (test code = 429) LYMPHOCYTES RELATIVE PERCENT 21 % (BEAKER) (test code = 430) MONOCYTES RELATIVE PERCENT 9 % (BEAKER) (test code = 431) EOSINOPHILS RELATIVE PERCENT 7 % (BEAKER) (test code = 432) BASOPHILS RELATIVE PERCENT 1 % (BEAKER) (test code = 437) NEUTROPHILS ABSOLUTE COUNT 6.33 K/ L 1.78-5.38 H (BEAKER) (test code = 670) LYMPHOCYTES ABSOLUTE COUNT 2.08 K/ L 1.32-3.57 (BEAKER) (test code = 414) MONOCYTES ABSOLUTE COUNT (BEAKER) 0.95 K/ L 0.30-0.82 H (test code = 415) EOSINOPHILS ABSOLUTE COUNT 0.69 K/ L 0.04-0.54 H (BEAKER) (test code = 416) BASOPHILS ABSOLUTE COUNT (BEAKER) 0.07 K/ L 0.01-0.08 (test code = 417) IMMATURE GRANULOCYTES-RELATIVE 0.50 % 0.00-1.00 PERCENT (BEAKER) (test code = 2801) POCT-GLUCOSE [id number] 18:12:43 Test Item Value Reference Range Interpretation Comments POC-GLUCOSE METER 272 mg/dL 70-110 H : TESTED A T [facility] 6720 (BEAKER) (test code = [facility], 1538) [address]: Concrete Building Assembler/Techni marissa ID = [id number] for Bea Galvez [id number] 17:45:02 Test Item Value Reference Range Interpretation Comments PARTIAL THROMBOPLASTIN TIME 101.3 seconds 22.5-36.0 H [facility] (test code = 760) HIGH SENSITIVITY TROPONIN [id number] 12:58:56 Test Item Value Reference Range Interpretation Comments HIGH SENSITIVITY 97 pg/ml See_Comment H [Automated message] TROPONIN I (test code = The system which [id number]) generated this result transmitted ref erence range: <=35. Th e reference range was not used to int erpret this result as normal/abnormal . Concrete Building Assembler ID - BVThe EQUIPMENT ENGINEER STAT High Sensitivity Troponin-I results should be used in conjunctionwith other diagnostic information such as ECG, clinical observations and information, and patient symptoms to aid in the diagnosis of CO.POCT-GLUCOSE [id number] 12:24:20 Test Item Value Reference Range Interpretation Comments POC-GLUCOSE METER 414 mg/dL 70-110 HH : Notified RN/MD: ([facility]) (test code = TESTED AT [facility] 67 1538) [facility], [address]: Concrete Building Assembler/Techni marissa ID = [id number] for Bea Galvez POCT-GLUCOSE [id number] 10:19:04 Test Item Value Reference Range Interpretation Comments POC-GLUCOSE METER 330 mg/dL 70-110 H : TESTED A T [facility] 67 ([facility]) (test code = [facility] Debby [facility], 1538) [address]: Concrete Building Assembler/Techni marissa ID = [id number] for Bea Galvez BASIC METABOLIC [id number] 07:21:44 Test Item Value Reference Range Interpretation Comments SODIUM (BEAKER) 135 meq/L 136-145 L (test code = 381) POTASSIUM 4.5 meq/L 3.5-5.1 (BEAKER) (test code = 379) CHLORIDE (BEAKER) 103 meq/L 98-107 (test code = 382) CO2 (BEAKER) 19 meq/L 22-29 L (test code = 355) BLOOD UREA 13 mg/dL 7-21 NITROGEN (BEAKER) (test code = 354) CREATININE 1.21 mg/dL 0.57-1.25 (BEAKER) (test code = 358) GLUCOSE RANDOM 359 mg/dL 70-105 H (BEAKER) (test code = 652) CALCIUM (BEAKER) 7.9 mg/dL 8.4-10.2 L (test code = 697) EGFR (BEAKER) 70 Interpretatio n of eGFR (test code = mL/min/1.73 values Stage De scription 1092) sq m Result G1 Lucy l or high >=90 G2 Mildly decreased 60-89 G3a Mildl y to moderately 45-5 9 G3b Moderately to s everely 30-44 G4 Severl y decreased 15-29 G5 Kidne y failure <15Reported eGF R is based on the CKD-EPI 2020 equation that d oes not use a race coefficientEsti mated GFR is not as accur ate as Creatinine Zuri warner in predicting glom erular filtration rate . Estimated GFR is not appl icable for dialysis patien ts Concrete Building Assembler ID - [id number] 07:17:35 Test Item Value Reference Range Interpretation Comments PHOSPHORUS (BEAKER) (test code = 4.0 mg/dL 2.3-4.7 604) Concrete Building Assembler ID - [id number] 07:17:34 Test Item Value Reference Range Interpretation Comments MAGNESIUM (BEAKER) (test code = 1.8 mg/dL 1.6-2.6 627) Concrete Building Assembler ID - [id number] 06:24:39 Test Item Value Reference Range Interpretation Comments PARTIAL THROMBOPLASTIN TIME 98.4 seconds 22.5-36.0 H (BEAKER) (test code = 760) CBC W/PLT COUNT & AUTO [id number] 06:15:48 Test Item Value Reference Range Interpretation Comments WHITE BLOOD CELL COUNT 10.6 K/ L 3.5-10.5 H (BEAKER) (test code = 775) RED BLOOD CELL COUNT 2.69 M/ L 4.63-6.08 L (BEAKER) (test code = 761) HEMOGLOBIN (BEAKER) 7.7 GM/DL 13.7-17.5 L (test code = 410) HEMATOCRIT (BEAKER) 24.6 % 40.1-51.0 L (test code = 411) MEAN CORPUSCULAR 91 fL 79-92 Discordant results VOLUME (BEAKER) (test compar ed to previous code = 753) results; clinic al correlation req uired MEAN CORPUSCULAR 28.6 pg 25.7-32.2 HEMOGLOBIN (BEAKER) (test code = 751) MEAN CORPUSCULAR 31.3 GM/DL 32.3-36.5 L HEMOGLOBIN CONC (BEAKER) (test code = 752) RED CELL DISTRIBUTION 15.2 % 11.6-14.4 H WIDTH (BEAKER) (test code = 412) PLATELET COUNT 470 K/CU MM 150-450 H (BEAKER) (test code = 756) MEAN PLATELET VOLUME 9.9 fL 9.4-12.4 (BEAKER) (test code = 754) NUCLEATED RED BLOOD 0 /100 WBC 0-0 CELLS (BEAKER) (test code = 413) NEUTROPHILS RELATIVE 64 % PERCENT (BEAKER) (test code = 429) LYMPHOCYTES RELATIVE 20 % PERCENT (BEAKER) (test code = 430) MONOCYTES RELATIVE 9 % PERCENT (BEAKER) (test code = 431) EOSINOPHILS RELATIVE 6 % PERCENT (BEAKER) (test code = 432) BASOPHILS RELATIVE 1 % PERCENT (BEAKER) (test code = 437) NEUTROPHILS ABSOLUTE 6.78 K/ L 1.78-5.38 H COUNT (BEAKER) (test code = 670) LYMPHOCYTES ABSOLUTE 2.15 K/ L 1.32-3.57 COUNT (BEAKER) (test code = 414) MONOCYTES ABSOLUTE 0.94 K/ L 0.30-0.82 H COUNT (BEAKER) (test code = 415) EOSINOPHILS ABSOLUTE 0.63 K/ L 0.04-0.54 H COUNT (BEAKER) (test code = 416) BASOPHILS ABSOLUTE 0.06 K/ L 0.01-0.08 COUNT (BEAKER) (test code = 417) IMMATURE 0.80 % 0.00-1.00 GRANULOCYTES-RELATIVE PERCENT (BEAKER) (test code = 2801) POCT-GLUCOSE [id number] 21:24:39 Test Item Value Reference Range Interpretation Comments POC-GLUCOSE METER 149 mg/dL 70-110 H : TESTED A T [facility] 6720 (BEAKER) (test code = [facility], 153) [address]: Concrete Building Assembler/Techni marissa ID = [id number] for Anton Reeves ams POCT-GLUCOSE [id number] 19:00:05 Test Item Value Reference Range Interpretation Comments POC-GLUCOSE METER 85 mg/dL 70-110 : TESTED A T [facility] 6720 (BEAKER) (test code = [facility], 153) [address]: Concrete Building Assembler/Techni marissa ID = [id number] for Cristhian Hernandez POCT-GLUCOSE [id number] 13:26:18 Test Item Value Reference Range Interpretation Comments POC-GLUCOSE METER 220 mg/dL 70-110 H : TESTED A T [facility] 6720 (BEAKER) (test code = [facility], 1538) [id number]: Concrete Building Assembler/Techni marissa ID = [id number] for Isidra Do POCT-GLUCOSE [id number] 08:58:10 Test Item Value Reference Range Interpretation Comments POC-GLUCOSE METER 148 mg/dL 70-110 H : TESTED A T [facility] 6720 (BEAKER) (test code = [facility], 1538) 09741: Concrete Building Assembler/Techni marissa ID = [id number] for JAYA CORDERO [id number] 06:33:48 Test Item Value Reference Range Interpretation Comments MAGNESIUM (BEAKER) (test code = 1.9 mg/dL 1.6-2.6 627) Concrete Building Assembler ID - [id number] 06:33:48 Test Item Value Reference Range Interpretation Comments PHOSPHORUS (BEAKER) (test code = 3.5 mg/dL 2.3-4.7 604) Concrete Building Assembler ID - ADMINBASIC METABOLIC [id number] 06:33:47 Test Item Value Reference Range Interpretation Comments SODIUM (BEAKER) 138 meq/L 136-145 (test code = 381) POTASSIUM 4.0 meq/L 3.5-5.1 (BEAKER) (test code = 379) CHLORIDE (BEAKER) 104 meq/L 98-107 (test code = 382) CO2 (BEAKER) 27 meq/L 22-29 (test code = 355) BLOOD UREA 15 mg/dL 7-21 NITROGEN (BEAKER) (test code = 354) CREATININE 1.13 mg/dL 0.57-1.25 (BEAKER) (test code = 358) GLUCOSE RANDOM 125 mg/dL 70-105 H (BEAKER) (test code = 652) CALCIUM (BEAKER) 8.2 mg/dL 8.4-10.2 L (test code = 697) EGFR (BEAKER) 76 Interpretatio n of eGFR (test code = mL/min/1.73 values Stage De scription 1092) sq m Result G1 Norm al or high >=90 G2 Mildly decreased 60-89 G3a Mildl y to moderately 45-5 9 G3b Moderately to s everely 30-44 G4 Severl y decreased 15-29 G5 Kidne y failure <15Reported eGF R is based on the CKD-EPI 2020 equation that d oes not use a race coefficientEsti mated GFR is not as accur ate as Creatinine Zuri hylton in predicting glom erular filtration rate . Estimated GFR is not appl icable for dialysis patien ts Concrete Building Assembler ID - ADMINCBC W/PLT COUNT & AUTO [id number] 06:18:10 Test Item Value Reference Range Interpretation Comments WHITE BLOOD CELL COUNT (BEAKER) 10.1 K/ L 3.5-10.5 (test code = 775) RED BLOOD CELL COUNT (BEAKER) 2.77 M/ L 4.63-6.08 L (test code = 761) HEMOGLOBIN (BEAKER) (test code = 7.8 GM/DL 13.7-17.5 L 410) HEMATOCRIT (BEAKER) (test code = 24.1 % 40.1-51.0 L 411) MEAN CORPUSCULAR VOLUME (BEAKER) 87 fL 79-92 (test code = 753) MEAN CORPUSCULAR HEMOGLOBIN 28.2 pg 25.7-32.2 (BEAKER) (test code = 751) MEAN CORPUSCULAR HEMOGLOBIN CONC 32.4 GM/DL 32.3-36.5 (BEAKER) (test code = 752) RED CELL DISTRIBUTION WIDTH 14.2 % 11.6-14.4 (BEAKER) (test code = 412) PLATELET COUNT (BEAKER) (test 541 K/CU MM 150-450 H code = 756) MEAN PLATELET VOLUME (BEAKER) 9.7 fL 9.4-12.4 (test code = 754) NUCLEATED RED BLOOD CELLS 0 /100 WBC 0-0 (BEAKER) (test code = 413) NEUTROPHILS RELATIVE PERCENT 64 % (BEAKER) (test code = 429) LYMPHOCYTES RELATIVE PERCENT 19 % (BEAKER) (test code = 430) MONOCYTES RELATIVE PERCENT 8 % (BEAKER) (test code = 431) EOSINOPHILS RELATIVE PERCENT 7 % (BEAKER) (test code = 432) BASOPHILS RELATIVE PERCENT 1 % (BEAKER) (test code = 437) NEUTROPHILS ABSOLUTE COUNT 6.43 K/ L 1.78-5.38 H (BEAKER) (test code = 670) LYMPHOCYTES ABSOLUTE COUNT 1.95 K/ L 1.32-3.57 (BEAKER) (test code = 414) MONOCYTES ABSOLUTE COUNT (BEAKER) 0.83 K/ L 0.30-0.82 H (test code = 415) EOSINOPHILS ABSOLUTE COUNT 0.74 K/ L 0.04-0.54 H (BEAKER) (test code = 416) BASOPHILS ABSOLUTE COUNT (BEAKER) 0.06 K/ L 0.01-0.08 (test code = 417) IMMATURE GRANULOCYTES-RELATIVE 0.50 % 0.00-1.00 PERCENT (BEAKER) (test code = 2801) [id number] 06:10:42 Test Item Value Reference Range Interpretation Comments PARTIAL THROMBOPLASTIN TIME 75.2 seconds 22.5-36.0 H (BEAKER) (test code = 760) POCT-GLUCOSE [id number] 00:53:53 Test Item Value Reference Range Interpretation Comments POC-GLUCOSE METER 149 mg/dL 70-110 H : TESTED A T [facility] 6720 (BEAKER) (test code = [facility], [facility]) 67[address]: Concrete Building Assembler/Techni marissa ID = [id number] for Victorian-GRETA, FELIPE POCT-GLUCOSE [id number] 00:08:12 Test Item Value Reference Range Interpretation Comments POC-GLUCOSE METER 68 mg/dL 70-110 L : [facility] (test code = [facility], 1538) 887[address]: Concrete Building Assembler/Techni marissa ID = [id number] for Victorian-GRETA, FELIPE POCT-GLUCOSE [id number] 23:35:35 Test Item Value Reference Range Interpretation Comments POC-GLUCOSE METER 68 mg/dL 70-110 L : TESTED A T [facility] 6720 (BEAKER) (test code = [facility], 1538) 032[address]: Concrete Building Assembler/Techni marissa ID = [id number] for Victorian-GRETA, FELIPE POCT-GLUCOSE [id number] 22:54:41 Test Item Value Reference Range Interpretation Comments POC-GLUCOSE METER 63 mg/dL 70-110 L : TESTED A T [facility] 6720 ([facility]) (test code = [facility], 1538) 785[address]: Concrete Building Assembler/Techni marissa ID = [id number] for FELIPE Elias [id number] 22:08:59 Test Item Value Reference Range Interpretation Comments PARTIAL THROMBOPLASTIN TIME 70.8 seconds 22.5-36.0 H ([facility]) (test code = 760) POCT-GLUCOSE [id number] 21:51:36 Test Item Value Reference Range Interpretation Comments POC-GLUCOSE METER 52 mg/dL 70-110 L : TESTED A T [facility] 6720 ([facility]) (test code = [facility], 1538) 50993: Concrete Building Assembler/Techni marissa ID = [id number] for Jada, FELIPE POCT-GLUCOSE [id number] 21:21:23 Test Item Value Reference Range Interpretation Comments POC-GLUCOSE METER 41 mg/dL 70-110 L : TESTED A T [facility] 6720 ([facility]) (test code = [facility], 1538) 996[address]: Concrete Building Assembler/Techni marissa ID = [id number] for Jada, FELIPE POCT-GLUCOSE [id number] 18:29:30 Test Item Value Reference Range Interpretation Comments POC-GLUCOSE METER 178 mg/dL 70-110 H : TESTED A T [facility] 6720 ([facility]) (test code = [facility], 1538) 16156: Concrete Building Assembler/Techni marissa ID = [id number] for Ca Ayla viera CT BRAIN WITHOUT IV [id number] 17:15:27 [facility] : 1965 Sex: MCT BRAIN WITHOUT IV CONTRASTINDICATION: DeliriumCOMPARISON: NoneTECHNIQUE: Noncontrast axial CT imaging ofthe brain and skull. DOSE REDUCTION: Dose modulation, iterative reconstruction, and/orweight-based adjustment of the mA/kV was utilized to reduce theradiation dose to as low as reasonably achievable.FINDINGS:No intracranial hemorrhage, midline shift or mass effect. Midlinestructures are normally developed. Scattered foci of hypoattenuationare present throughout the periventricular and subcortical white matter,and, although nonspecific by imaging, statistically represent mildchronic microvascular ischemic changes in this age group.No hydrocephalus.Orbits are within normal limits. Prior bilateral lens surgery.Atherosclerotic calcification of the intracranial internal carotid arteries.No obstructive paranasal sinus disease.IMPRESSION:No acute intracranial findingsIf there is persistent clinical concern for intracranial pathology, MRexamination is recommended for further characterization.Electronically Signed By: Mavis Vinson01/30/2023 17:19 CDTWorkstation Name: [id number] 14:22:32 Test Item Value Reference Range Interpretation Comments PARTIAL THROMBOPLASTIN TIME 71.6 seconds 22.5-36.0 H (BEAKER) (test code = 760) POCT-GLUCOSE [id number] 13:51:50 Test Item Value Reference Range Interpretation Comments POC-GLUCOSE METER 233 mg/dL 70-110 H : TESTED A T [facility] 6720 (BEAKER) (test code = [facility], 1538) 932[address]: Concrete Building Assembler/Techni marissa ID = [id number] for Ca tallero, Ayla POCT-GLUCOSE [id number] 09:06:42 Test Item Value Reference Range Interpretation Comments POC-GLUCOSE METER 382 mg/dL 70-110 H : TESTED A T [facility] 6720 (BEAKER) (test code = [facility], 1538) 14534: Concrete Building Assembler/Techni marissa ID = [id number] for Ca tallero, Ayla [id number] 06:52:40 Test Item Value Reference Range Interpretation Comments PHOSPHORUS (BEAKER) (test code = 3.3 mg/dL 2.3-4.7 604) Concrete Building Assembler ID - SOURAV WBASIC METABOLIC [id number] 06:52:39 Test Item Value Reference Range Interpretation Comments SODIUM (BEAKER) 139 meq/L 136-145 (test code = 381) POTASSIUM 4.4 meq/L 3.5-5.1 (BEAKER) (test code = 379) CHLORIDE (BEAKER) 104 meq/L 98-107 (test code = 382) CO2 (BEAKER) 21 meq/L 22-29 L (test code = 355) BLOOD UREA 19 mg/dL 7-21 NITROGEN (BEAKER) (test code = 354) CREATININE 1.05 mg/dL 0.57-1.25 (BEAKER) (test code = 358) GLUCOSE RANDOM 336 mg/dL 70-105 H (BEAKER) (test code = 652) CALCIUM (BEAKER) 8.4 mg/dL 8.4-10.2 (test code = 697) EGFR (BEAKER) 83 Interpretati on of eGFR (test code = mL/min/1.73 values Stage De scription 1092) sq m Result G1 Lucy l or high >=90 G2 Mildly decreased 60-89 G3a Mildl y to moderately 45-5 9 G3b Moderately to s everely 30-44 G4 Severl y decreased 15-29 G5 Kidney failure <15Reported eGF R is based on the CKD-EPI 2020 equation that d oes not use a race coefficientEsti mated GFR is not as accur ate as Creatinine Zuri hylton in predicting glom erular filtration rate . Estimated GFR is not appl icable for dialysis patien ts Concrete Building Assembler ID Adebayo BENJAMIN [id number] 06:52:39 Test Item Value Reference Range Interpretation Comments MAGNESIUM (BEAKER) (test code = 2.0 mg/dL 1.6-2.6 627) Concrete Building Assembler ID Adebayo BENJAMIN WCBC W/PLT COUNT & AUTO [id number] 06:36:48 Test Item Value Reference Range Interpretation Comments WHITE BLOOD CELL COUNT (BEAKER) 11.1 K/ L 3.5-10.5 H (test code = 775) RED BLOOD CELL COUNT (BEAKER) 2.87 M/ L 4.63-6.08 L (test code = 761) HEMOGLOBIN (BEAKER) (test code = 8.1 GM/DL 13.7-17.5 L 410) HEMATOCRIT (BEAKER) (test code = 25.9 % 40.1-51.0 L 411) MEAN CORPUSCULAR VOLUME (BEAKER) 90 fL 79-92 (test code = 753) MEAN CORPUSCULAR HEMOGLOBIN 28.2 pg 25.7-32.2 (BEAKER) (test code = 751) MEAN CORPUSCULAR HEMOGLOBIN CONC 31.3 GM/DL 32.3-36.5 L (BEAKER) (test code = 752) RED CELL DISTRIBUTION WIDTH 14.0 % 11.6-14.4 (BEAKER) (test code = 412) PLATELET COUNT (BEAKER) (test 532 K/CU MM 150-450 H code = 756) MEAN PLATELET VOLUME (BEAKER) 10.0 fL 9.4-12.4 (test code = 754) NUCLEATED RED BLOOD CELLS 0 /100 WBC 0-0 (BEAKER) (test code = 413) NEUTROPHILS RELATIVE PERCENT 64 % (BEAKER) (test code = 429) LYMPHOCYTES RELATIVE PERCENT 21 % (BEAKER) (test code = 430) MONOCYTES RELATIVE PERCENT 7 % (BEAKER) (test code = 431) EOSINOPHILS RELATIVE PERCENT 7 % (BEAKER) (test code = 432) BASOPHILS RELATIVE PERCENT 1 % (BEAKER) (test code = 437) NEUTROPHILS ABSOLUTE COUNT 7.02 K/ L 1.78-5.38 H (BEAKER) (test code = 670) LYMPHOCYTES ABSOLUTE COUNT 2.32 K/ L 1.32-3.57 (BEAKER) (test code = 414) MONOCYTES ABSOLUTE COUNT (BEAKER) 0.79 K/ L 0.30-0.82 (test code = 415) EOSINOPHILS ABSOLUTE COUNT 0.82 K/ L 0.04-0.54 H (BEAKER) (test code = 416) BASOPHILS ABSOLUTE COUNT (BEAKER) 0.06 K/ L 0.01-0.08 (test code = 417) IMMATURE GRANULOCYTES-RELATIVE 0.60 % 0.00-1.00 PERCENT (BEAKER) (test code = 2801) [id number] 06:34:53 Test Item Value Reference Range Interpretation Comments PARTIAL THROMBOPLASTIN TIME 60.0 seconds 22.5-36.0 H (BEAKER) (test code = 760) POCT-GLUCOSE [id number] 22:13:50 Test Item Value Reference Range Interpretation Comments POC-GLUCOSE METER 265 mg/dL 70-110 H : TESTED A T [facility] 6720 (BEAKER) (test code = [facility], 1538) 794[address]: Concrete Building Assembler/Techni marissa ID = [id number] for Salvador Bob [id number] 21:56:56 Test Item Value Reference Range Interpretation Comments PARTIAL THROMBOPLASTIN TIME 55.8 seconds 22.5-36.0 H (BEAKER) (test code = 760) POCT-GLUCOSE [id number] 17:46:03 Test Item Value Reference Range Interpretation Comments POC-GLUCOSE METER 180 mg/dL 70-110 H : TESTED A T [facility] 6720 (BEAKER) (test code = [facility], 1538) 40657: Concrete Building Assembler/Techni marissa ID = [id number] for Stephanie Shell [id number] 14:19:49 Test Item Value Reference Range Interpretation Comments PARTIAL THROMBOPLASTIN TIME 35.6 seconds 22.5-36.0 (BEAKER) (test code = 760) POCT-GLUCOSE [id number] 12:16:51 Test Item Value Reference Range Interpretation Comments POC-GLUCOSE METER 234 mg/dL 70-110 H : TESTED A T [facility] 6720 (BEAKER) (test code = [facility], 1538) 80262: Concrete Building Assembler/Techni marissa ID = [id number] for Stefania Alvarenga [id number] 11:48:00 Test Item Value Reference Range Interpretation Comments PHOSPHORUS (BEAKER) (test code = 3.6 mg/dL 2.3-4.7 604) Concrete Building Assembler ID - [id number] 11:47:59 Test Item Value Reference Range Interpretation Comments MAGNESIUM (BEAKER) (test code = 2.0 mg/dL 1.6-2.6 627) Concrete Building Assembler ID - BVBASIC METABOLIC [id number] 11:47:58 Test Item Value Reference Range Interpretation Comments SODIUM (BEAKER) 141 meq/L 136-145 (test code = 381) POTASSIUM 4.0 meq/L 3.5-5.1 (BEAKER) (test code = 379) CHLORIDE (BEAKER) 104 meq/L 98-107 (test code = 382) CO2 (BEAKER) 27 meq/L 22-29 (test code = 355) BLOOD UREA 27 mg/dL 7-21 H NITROGEN (BEAKER) (test code = 354) CREATININE 1.10 mg/dL 0.57-1.25 (BEAKER) (test code = 358) GLUCOSE RANDOM 213 mg/dL 70-105 H (BEAKER) (test code = 652) CALCIUM (BEAKER) 8.0 mg/dL 8.4-10.2 L (test code = 697) EGFR (BEAKER) 78 Interpretatio n of eGFR (test code = mL/min/1.73 values Stage De scription 1092) sq m Result G1 Lucy l or high >=90 G2 Mildly decreased 60-89 G3a Mildl y to moderately 45-5 9 G3b Moderately to s everely 30-44 G4 Sever ly decreased 15-29 G5 Kidney failure <15Repo rted eGFR is based on the CKD-EPI 2020 equation t hat does not use a race coefficientEsti mated GFR is not as accur ate as Creatinine Zuri warner in predicting glom erular filtration rate . Estimated GFR is not appl icable for dialysis patien ts Concrete Building Assembler ID - [id number] 11:40:15 Test Item Value Reference Range Interpretation Comments PARTIAL THROMBOPLASTIN TIME 110.6 seconds 22.5-36.0 H (BEAKER) (test code = 760) [id number] 11:36:56 Test Item Value Reference Range Interpretation Comments PARTIAL THROMBOPLASTIN TIME 88.6 seconds 22.5-36.0 H (BEAKER) (test code = 760) PLATELET [id number] 11:34:40 Test Item Value Reference Range Interpretation Comments PLATELET COUNT (BEAKER) (test 530 K/CU MM 150-450 H code = 756) Concrete Building Assembler ID - [id number] W/PLT COUNT & AUTO [id number] 11:34:38 Test Item Value Reference Range Interpretation Comments WHITE BLOOD CELL COUNT (BEAKER) 9.8 K/ L 3.5-10.5 (test code = 775) RED BLOOD CELL COUNT (BEAKER) 2.81 M/ L 4.63-6.08 L (test code = 761) HEMOGLOBIN (BEAKER) (test code = 7.9 GM/DL 13.7-17.5 L 410) HEMATOCRIT (BEAKER) (test code = 24.8 % 40.1-51.0 L 411) MEAN CORPUSCULAR VOLUME (BEAKER) 88 fL 79-92 (test code = 753) MEAN CORPUSCULAR HEMOGLOBIN 28.1 pg 25.7-32.2 (BEAKER) (test code = 751) MEAN CORPUSCULAR HEMOGLOBIN CONC 31.9 GM/DL 32.3-36.5 L (BEAKER) (test code = 752) RED CELL DISTRIBUTION WIDTH 14.3 % 11.6-14.4 (BEAKER) (test code = 412) PLATELET COUNT (BEAKER) (test 536 K/CU MM 150-450 H code = 756) MEAN PLATELET VOLUME (BEAKER) 9.7 fL 9.4-12.4 (test code = 754) NUCLEATED RED BLOOD CELLS 0 /100 WBC 0-0 (BEAKER) (test code = 413) NEUTROPHILS RELATIVE PERCENT 62 % (BEAKER) (test code = 429) LYMPHOCYTES RELATIVE PERCENT 22 % (BEAKER) (test code = 430) MONOCYTES RELATIVE PERCENT 7 % (BEAKER) (test code = 431) EOSINOPHILS RELATIVE PERCENT 9 % (BEAKER) (test code = 432) BASOPHILS RELATIVE PERCENT 1 % (BEAKER) (test code = 437) NEUTROPHILS ABSOLUTE COUNT 6.04 K/ L 1.78-5.38 H (BEAKER) (test code = 670) LYMPHOCYTES ABSOLUTE COUNT 2.11 K/ L 1.32-3.57 (BEAKER) (test code = 414) MONOCYTES ABSOLUTE COUNT (BEAKER) 0.71 K/ L 0.30-0.82 (test code = 415) EOSINOPHILS ABSOLUTE COUNT 0.85 K/ L 0.04-0.54 H (BEAKER) (test code = 416) BASOPHILS ABSOLUTE COUNT (BEAKER) 0.06 K/ L 0.01-0.08 (test code = 417) IMMATURE GRANULOCYTES-RELATIVE 0.60 % 0.00-1.00 PERCENT (BEAKER) (test code = 2801) POCT-GLUCOSE [id number] 09:19:39 Test Item Value Reference Range Interpretation Comments POC-GLUCOSE METER 184 mg/dL 70-110 H : TESTED A T [facility] 6720 (BEAKER) (test code = [facility], 1538) 87324: Concrete Building Assembler/Techni marissa ID = [id number] for Um ehArisu [id number] 02:09:33 Test Item Value Reference Range Interpretation Comments PARTIAL THROMBOPLASTIN TIME 59.4 seconds 22.5-36.0 H ([facility]) (test code = 760) POCT-GLUCOSE [id number] 21:11:15 Test Item Value Reference Range Interpretation Comments POC-GLUCOSE METER 82 mg/dL 70-110 : TESTED A T [facility] 6720 ([facility]) (test code = [facility], [facility]8) 93854: Concrete Building Assembler/Techni marissa ID = [id number] for ROBERTO ETT, SEPTEMBER [id number] 18:57:17 Test Item Value Reference Range Interpretation Comments PARTIAL THROMBOPLASTIN TIME 62.6 seconds 22.5-36.0 H ([facility]) (test code = 760) POCT-GLUCOSE [id number] 18:27:57 Test Item Value Reference Range Interpretation Comments POC-GLUCOSE METER 174 mg/dL 70-110 H : TESTED A T [facility] 6720 ([facility]) (test code = [facility], [facility]8) 51970: Concrete Building Assembler/Techni marissa ID = [id number] for LL OYD, TIKEYA POCT-GLUCOSE [id number] 12:57:04 Test Item Value Reference Range Interpretation Comments POC-GLUCOSE METER 225 mg/dL 70-110 H : TESTED A T [facility] 6720 ([facility]) (test code = [facility], [facility]8) 31390: Concrete Building Assembler/Techni marissa ID = [id number] for LL OYD, TIKEYA [id number] 11:21:42 Test Item Value Reference Range Interpretation Comments PARTIAL THROMBOPLASTIN TIME 47.8 seconds 22.5-36.0 H ([facility]) (test code = 760) POCT-GLUCOSE [id number] 09:06:14 Test Item Value Reference Range Interpretation Comments POC-GLUCOSE METER 299 mg/dL 70-110 H : TESTED A T [facility] 6720 ([facility]) (test code = [facility], [facility]8) 45376: Concrete Building Assembler/Techni marissa ID = [id number] for Karen chow (Divflt)Lina [id number] 04:29:10 Test Item Value Reference Range Interpretation Comments PHOSPHORUS (BEAKER) (test code = 4.9 mg/dL 2.3-4.7 H 604) Concrete Building Assembler ID - MMBASIC METABOLIC [id number] 04:29:09 Test Item Value Reference Range Interpretation Comments SODIUM (BEAKER) 140 meq/L 136-145 (test code = 381) POTASSIUM 4.3 meq/L 3.5-5.1 (BEAKER) (test code = 379) CHLORIDE (BEAKER) 103 meq/L 98-107 (test code = 382) CO2 (BEAKER) 26 meq/L 22-29 (test code = 355) BLOOD UREA 45 mg/dL 7-21 H NITROGEN (BEAKER) (test code = 354) CREATININE 1.60 mg/dL 0.57-1.25 H (BEAKER) (test code = 358) GLUCOSE RANDOM 303 mg/dL 70-105 H (BEAKER) (test code = 652) CALCIUM (BEAKER) 8.3 mg/dL 8.4-10.2 L (test code = 697) EGFR (BEAKER) 50 Interpretatio n of eGFR (test code = mL/min/1.73 values Stage De scription 1092) sq m Result G1 Lucy l or high >=90 G2 Mildly decreased 60-89 G3a Mildl y to moderately 45-5 9 G3b Moderately to s everely 30-44 G4 Sever ly decreased 15-29 G5 Kidney failure <15Repo rted eGFR is based on the CKD-EPI 2020 equation t hat does not use a race coefficientEsti mated GFR is not as accur ate as Creatinine Zuri hylton in predicting glom erular filtration rate . Estimated GFR is not appl icable for dialysis patien ts Concrete Building Assembler ID - [id number] 04:29:09 Test Item Value Reference Range Interpretation Comments MAGNESIUM (BEAKER) (test code = 2.3 mg/dL 1.6-2.6 627) Concrete Building Assembler ID - [id number] 04:19:25 Test Item Value Reference Range Interpretation Comments PARTIAL THROMBOPLASTIN TIME 42.4 seconds 22.5-36.0 H (BEAKER) (test code = 760) CBC W/PLT COUNT & AUTO [id number] 04:09:26 Test Item Value Reference Range Interpretation Comments WHITE BLOOD CELL COUNT (BEAKER) 13.5 K/ L 3.5-10.5 H (test code = 775) RED BLOOD CELL COUNT (BEAKER) 2.88 M/ L 4.63-6.08 L (test code = 761) HEMOGLOBIN (BEAKER) (test code = 8.0 GM/DL 13.7-17.5 L 410) HEMATOCRIT (BEAKER) (test code = 25.8 % 40.1-51.0 L 411) MEAN CORPUSCULAR VOLUME (BEAKER) 90 fL 79-92 (test code = 753) MEAN CORPUSCULAR HEMOGLOBIN 27.8 pg 25.7-32.2 (BEAKER) (test code = 751) MEAN CORPUSCULAR HEMOGLOBIN CONC 31.0 GM/DL 32.3-36.5 L (BEAKER) (test code = 752) RED CELL DISTRIBUTION WIDTH 14.1 % 11.6-14.4 (BEAKER) (test code = 412) PLATELET COUNT (BEAKER) (test 537 K/CU MM 150-450 H code = 756) MEAN PLATELET VOLUME (BEAKER) 10.1 fL 9.4-12.4 (test code = 754) NUCLEATED RED BLOOD CELLS 0 /100 WBC 0-0 (BEAKER) (test code = 413) NEUTROPHILS RELATIVE PERCENT 69 % (BEAKER) (test code = 429) LYMPHOCYTES RELATIVE PERCENT 15 % (BEAKER) (test code = 430) MONOCYTES RELATIVE PERCENT 9 % (BEAKER) (test code = 431) EOSINOPHILS RELATIVE PERCENT 6 % (BEAKER) (test code = 432) BASOPHILS RELATIVE PERCENT 1 % (BEAKER) (test code = 437) NEUTROPHILS ABSOLUTE COUNT 9.25 K/ L 1.78-5.38 H (BEAKER) (test code = 670) LYMPHOCYTES ABSOLUTE COUNT 1.98 K/ L 1.32-3.57 (BEAKER) (test code = 414) MONOCYTES ABSOLUTE COUNT (BEAKER) 1.26 K/ L 0.30-0.82 H (test code = 415) EOSINOPHILS ABSOLUTE COUNT 0.81 K/ L 0.04-0.54 H (BEAKER) (test code = 416) BASOPHILS ABSOLUTE COUNT (BEAKER) 0.07 K/ L 0.01-0.08 (test code = 417) IMMATURE GRANULOCYTES-RELATIVE 0.80 % 0.00-1.00 PERCENT (BEAKER) (test code = 2801) POCT-GLUCOSE [id number] 21:08:26 Test Item Value Reference Range Interpretation Comments POC-GLUCOSE METER 351 mg/dL 70-110 H : TESTED A T [facility] 6720 (BEAKER) (test code = [facility], 1538) 99019: Concrete Building Assembler/Techni marissa ID = [id number] for PRINCESS DIAMOND [id number] 19:53:58 Test Item Value Reference Range Interpretation Comments PARTIAL THROMBOPLASTIN TIME 32.0 seconds 22.5-36.0 (BEAKER) (test code = 760) XR FOOT 3 VIEWS [id number] 12:13:36 [facility] 1965 Sex: MCLINICAL HISTORY: Nonhealing great toe woundTECHNIQUE: 3 views of the left footCOMPARISON: NoneIMPRESSION:There is an ulceration at the medial aspect of the first interphalangealjoint. There are no discrete osseous lesions. There is no fracture ordislocation.Electronically Signed By: Delvis Carrillo01/27/2023 12:15 CDTWorkstation Name: [id number] METABOLIC [id number] 10:32:23 Test Item Value Reference Range Interpretation Comments SODIUM (BEAKER) 139 meq/L 136-145 (test code = 381) POTASSIUM 4.5 meq/L 3.5-5.1 (BEAKER) (test code = 379) CHLORIDE (BEAKER) 100 meq/L 98-107 (test code = 382) CO2 (BEAKER) 25 meq/L 22-29 (test code = 355) BLOOD UREA 51 mg/dL 7-21 H NITROGEN (BEAKER) (test code = 354) CREATININE 2.04 mg/dL 0.57-1.25 H (BEAKER) (test code = 358) GLUCOSE RANDOM 414 mg/dL 70-105 HH (BEAKER) (test code = 652) CALCIUM (BEAKER) 8.7 mg/dL 8.4-10.2 (test code = 697) EGFR (BEAKER) 37 Interpretatio n of eGFR (test code = mL/min/1.73 values Stage De scription 1092) sq m Result G1 Lucy l or high >=90 G2 Mildly decreased 60-89 G3a Mildl y to moderately 45-5 9 G3b Moderately to s everely 30-44 G4 Severl y decreased 15-29 G5 Kidney failure <15Reported eGF R is based on the CKD-EPI 2020 equation that d oes not use a race coefficientEsti mated GFR is not as accur ate as Creatinine Zuri warner in predicting glom erular filtration rate . Estimated GFR is not appl icable for dialysis patien ts [employer] Building Assembler ID - [id number] 10:21:34 Test Item Value Reference Range Interpretation Comments MAGNESIUM (BEAKER) (test code = 2.2 mg/dL 1.6-2.6 627) [employer]er ID - [id number] 10:21:34 Test Item Value Reference Range Interpretation Comments PHOSPHORUS (BEAKER) (test code = 3.8 mg/dL 2.3-4.7 604) [employer] Building Assembler ID - [id number] CULTURE + GRAM [id number] 10:19:47 Test Item Value Reference Range Interpretation Comments CULTURE (BEAKER) (test code <1+ Skin addy = 1095) GRAM STAIN RESULT (BEAKER) No WBC's Seen (test code = 1123) GRAM STAIN RESULT (BEAKER) No organisms seen (test code = 73421) CBC W/PLT COUNT & AUTO [id number] 09:31:13 Test Item Value Reference Range Interpretation Comments WHITE BLOOD CELL COUNT (BEAKER) 14.7 K/ L 3.5-10.5 H (test code = 775) RED BLOOD CELL COUNT (BEAKER) 3.00 M/ L 4.63-6.08 L (test code = 761) HEMOGLOBIN (BEAKER) (test code = 8.5 GM/DL 13.7-17.5 L 410) HEMATOCRIT (BEAKER) (test code = 26.4 % 40.1-51.0 L 411) MEAN CORPUSCULAR VOLUME (BEAKER) 88 fL 79-92 (test code = 753) MEAN CORPUSCULAR HEMOGLOBIN 28.3 pg 25.7-32.2 (BEAKER) (test code = 751) MEAN CORPUSCULAR HEMOGLOBIN CONC 32.2 GM/DL 32.3-36.5 L (BEAKER) (test code = 752) RED CELL DISTRIBUTION WIDTH 13.9 % 11.6-14.4 (BEAKER) (test code = 412) PLATELET COUNT (BEAKER) (test 551 K/CU MM 150-450 H code = 756) MEAN PLATELET VOLUME (BEAKER) 10.3 fL 9.4-12.4 (test code = 754) NUCLEATED RED BLOOD CELLS 0 /100 WBC 0-0 (BEAKER) (test code = 413) NEUTROPHILS RELATIVE PERCENT 79 % (BEAKER) (test code = 429) LYMPHOCYTES RELATIVE PERCENT 9 % (BEAKER) (test code = 430) MONOCYTES RELATIVE PERCENT 9 % (BEAKER) (test code = 431) EOSINOPHILS RELATIVE PERCENT 2 % (BEAKER) (test code = 432) BASOPHILS RELATIVE PERCENT 0 % (BEAKER) (test code = 437) NEUTROPHILS ABSOLUTE COUNT 11.58 K/ L 1.78-5.38 H (BEAKER) (test code = 670) LYMPHOCYTES ABSOLUTE COUNT 1.36 K/ L 1.32-3.57 (BEAKER) (test code = 414) MONOCYTES ABSOLUTE COUNT (BEAKER) 1.26 K/ L 0.30-0.82 H (test code = 415) EOSINOPHILS ABSOLUTE COUNT 0.36 K/ L 0.04-0.54 (BEAKER) (test code = 416) BASOPHILS ABSOLUTE COUNT (BEAKER) 0.05 K/ L 0.01-0.08 (test code = 417) IMMATURE GRANULOCYTES-RELATIVE 0.80 % 0.00-1.00 PERCENT (BEAKER) (test code = 2801) POCT-GLUCOSE [id number] 22:11:45 Test Item Value Reference Range Interpretation Comments POC-GLUCOSE METER 250 mg/dL 70-110 H : TESTED Rodrigo Morales [facility] 6720 [facility] (test code = [facility], 1538) [address]: Concrete Building Assembler/Techni marissa ID = [id number] for Aw a, [place] POCT-GLUCOSE [id number] 16:57:17 Test Item Value Reference Range Interpretation Comments POC-GLUCOSE METER 345 mg/dL 70-110 H : TESTED A T [facility] 6720 (BEAKER) (test code = [facility], 1538) 338[address]: Concrete Building Assembler/Techni marissa ID = [id number] for ST OJC[facility], NADA [id number] 14:59:11 Test Item Value Reference Range Interpretation Comments PARTIAL THROMBOPLASTIN TIME 35.3 seconds 22.5-36.0 (AKER) (test code = 760) CRYPTOCOCCAL [id number] 14:56:40 Test Item Value Reference Range Interpretation Comments CRYPTOCOCCAL ANTIGEN, SERUM Negative Negative, Interference ([facility]) (test code = 1828) [id number] 13:12:40 Test Item Value Reference Range Interpretation Comments PARTIAL THROMBOPLASTIN TIME > seconds 22.5-36.0 HH ([facility]) (test code = 760) POCT-GLUCOSE [id number] 11:57:41 Test Item Value Reference Range Interpretation Comments POC-GLUCOSE METER 395 mg/dL 70-110 H : TESTED A T [facility] 6720 (BEAKER) (test code = [facility], 153) 418[address]: Concrete Building Assembler/Techni marissa ID = [id number] for ST OJCIC, NADA POCT-GLUCOSE [id number] 07:24:42 Test Item Value Reference Range Interpretation Comments POC-GLUCOSE METER 237 mg/dL 70-110 H : TESTED A T [facility] 6720 ([facility]) (test code = [facility], 1538) 500[address]: Concrete Building Assembler/Techni marissa ID = [id number] for ST OJC[facility], NADA HIV-1 ANTIGEN WITH HIV-1/2 [id number] 05:28:10 Test Item Value Reference Range Interpretation Comments HIV-1 ANTIGEN WITH HIV 1\\T\\2 Nonreactive Nonreactive ANTIBODY (2) (BEAKER) (test code = 2586) Concrete Building Assembler ID - [id number] 05:25:15 Test Item Value Reference Range Interpretation Comments PHOSPHORUS (BEAKER) (test code = 3.9 mg/dL 2.3-4.7 604) Concrete Building Assembler ID - ADMINBASIC METABOLIC [id number] 05:25:14 Test Item Value Reference Range Interpretation Comments SODIUM (BEAKER) 139 meq/L 136-145 (test code = 381) POTASSIUM 4.0 meq/L 3.5-5.1 (BEAKER) (test code = 379) CHLORIDE (BEAKER) 103 meq/L 98-107 (test code = 382) CO2 (BEAKER) 25 meq/L 22-29 (test code = 355) BLOOD UREA 47 mg/dL 7-21 H NITROGEN (BEAKER) (test code = 354) CREATININE 1.49 mg/dL 0.57-1.25 H (BEAKER) (test code = 358) GLUCOSE RANDOM 205 mg/dL 70-105 H (BEAKER) (test code = 652) CALCIUM (BEAKER) 8.5 mg/dL 8.4-10.2 (test code = 697) EGFR (BEAKER) 54 Interpretatio n of eGFR (test code = mL/min/1.73 values Stage De scription 1092) sq m Result G1 Lucy l or high >=90 G2 Mildly decreased 60-89 G3a Mildl y to moderately 45-5 9 G3b Moderately to s everely 30-44 G4 Severl y decreased 15-29 G5 Kidney failure <15Reported eGF R is based on the CKD-EPI 1 equation that d oes not use a race coefficientEsti mated GFR is not as accur ate as Creatinine Zuri hylton in predicting glom erular filtration rate . Estimated GFR is not appl icable for dialysis patien ts Concrete Building Assembler ID - [id number] 05:25:14 Test Item Value Reference Range Interpretation Comments MAGNESIUM (BEAKER) (test code = 2.2 mg/dL 1.6-2.6 627) Concrete Building Assembler ID - ADMINCBC W/PLT COUNT & AUTO [id number] 05:11:50 Test Item Value Reference Range Interpretation Comments WHITE BLOOD CELL COUNT (BEAKER) 12.3 K/ L 3.5-10.5 H (test code = 775) RED BLOOD CELL COUNT (BEAKER) 2.93 M/ L 4.63-6.08 L (test code = 761) HEMOGLOBIN (BEAKER) (test code = 8.2 GM/DL 13.7-17.5 L 410) HEMATOCRIT (BEAKER) (test code = 25.6 % 40.1-51.0 L 411) MEAN CORPUSCULAR VOLUME (BEAKER) 87 fL 79-92 (test code = 753) MEAN CORPUSCULAR HEMOGLOBIN 28.0 pg 25.7-32.2 (BEAKER) (test code = 751) MEAN CORPUSCULAR HEMOGLOBIN CONC 32.0 GM/DL 32.3-36.5 L (BEAKER) (test code = 752) RED CELL DISTRIBUTION WIDTH 13.8 % 11.6-14.4 (BEAKER) (test code = 412) PLATELET COUNT (BEAKER) (test 482 K/CU MM 150-450 H code = 756) MEAN PLATELET VOLUME (BEAKER) 10.2 fL 9.4-12.4 (test code = 754) NUCLEATED RED BLOOD CELLS 0 /100 WBC 0-0 (BEAKER) (test code = 413) NEUTROPHILS RELATIVE PERCENT 65 % (BEAKER) (test code = 429) LYMPHOCYTES RELATIVE PERCENT 16 % (BEAKER) (test code = 430) MONOCYTES RELATIVE PERCENT 10 % (BEAKER) (test code = 431) EOSINOPHILS RELATIVE PERCENT 7 % (BEAKER) (test code = 432) BASOPHILS RELATIVE PERCENT 0 % (BEAKER) (test code = 437) NEUTROPHILS ABSOLUTE COUNT 8.04 K/ L 1.78-5.38 H (BEAKER) (test code = 670) LYMPHOCYTES ABSOLUTE COUNT 1.99 K/ L 1.32-3.57 (BEAKER) (test code = 414) MONOCYTES ABSOLUTE COUNT (BEAKER) 1.22 K/ L 0.30-0.82 H (test code = 415) EOSINOPHILS ABSOLUTE COUNT 0.87 K/ L 0.04-0.54 H (BEAKER) (test code = 416) BASOPHILS ABSOLUTE COUNT (BEAKER) 0.05 K/ L 0.01-0.08 (test code = 417) IMMATURE GRANULOCYTES-RELATIVE 1.10 % 0.00-1.00 H PERCENT (BEAKER) (test code = 2801) [id number] 05:05:38 Test Item Value Reference Range Interpretation Comments PARTIAL THROMBOPLASTIN TIME 38.6 seconds 22.5-36.0 H (BEAKER) (test code = 760) [id number] 02:13:16 Test Item Value Reference Range Interpretation Comments PARTIAL THROMBOPLASTIN TIME 115.8 seconds 22.5-36.0 H (BEAKER) (test code = 760) POCT-GLUCOSE [id number] 01:16:40 Test Item Value Reference Range Interpretation Comments POC-GLUCOSE METER 235 mg/dL 70-110 H : TESTED A T [facility] 6720 (BEAKER) (test code = [facility], 1538) [address]: Concrete Building Assembler/Techni marissa ID = [id number] for Vi nton, Juvent [id number] 18:25:41 Test Item Value Reference Range Interpretation Comments MAGNESIUM (BEAKER) (test code = 2.1 mg/dL 1.6-2.6 627) Concrete Building Assembler ID - ADMINBASIC METABOLIC [id number] 18:25:40 Test Item Value Reference Range Interpretation Comments SODIUM (BEAKER) 140 meq/L 136-145 (test code = 381) POTASSIUM 3.9 meq/L 3.5-5.1 (BEAKER) (test code = 379) CHLORIDE (BEAKER) 103 meq/L 98-107 (test code = 382) CO2 (BEAKER) 21 meq/L 22-29 L (test code = 355) BLOOD UREA 55 mg/dL 7-21 H NITROGEN (BEAKER) (test code = 354) CREATININE 1.56 mg/dL 0.57-1.25 H (BEAKER) (test code = 358) GLUCOSE RANDOM 268 mg/dL 70-105 H (BEAKER) (test code = 652) CALCIUM (BEAKER) 8.4 mg/dL 8.4-10.2 (test code = 697) EGFR (BEAKER) 51 Interpretatio n of eGFR (test code = mL/min/1.73 values Stage De scription 1092) sq m Result G1 Lucy l or high >=90 G2 Mildly decreased 60-89 G3a Mildl y to moderately 45-5 9 G3b Moderately to s everely 30-44 G4 Severl y decreased 15-29 G5 Kidney failure <15Reported eGF R is based on the CKD-EPI 2020 equation that d oes not use a race coefficientEsti mated GFR is not as accur ate as Creatinine Zuri hylton in predicting glom erular filtration rate . Estimated GFR is not appl icable for dialysis patien ts Concrete Building Assembler ID - ADMINPOCT-GLUCOSE [id number] 17:33:39 Test Item Value Reference Range Interpretation Comments POC-GLUCOSE METER 260 mg/dL 70-110 H : [facility] ([facility]) (test code = [facility], 153) [address]: Concrete Building Assembler/Techni marissa ID = [id number] for Farzana delgadoineisidoro, Em POCT-GLUCOSE [id number] 14:10:29 Test Item Value Reference Range Interpretation Comments POC-GLUCOSE METER 266 mg/dL 70-110 H : [facility] ([facility]) (test code = [facility], 1537) 67[address]: Concrete Building Assembler/Techni marissa ID = [id number] for BL USTEFANIA Moore [id number] 12:45:20 Test Item Value Reference Range Interpretation Comments PARTIAL THROMBOPLASTIN TIME 86.4 seconds 22.5-36.0 H ([facility]) (test code = 760) BLOOD [id number] 12:00:32 Test Item Value Reference Range Interpretation Comments CULTURE (BEAKER) (test No growth in 5 days code = 1095) BLOOD [id number] 12:00:32 Test Item Value Reference Range Interpretation Comments CULTURE (BEAKER) (test No growth in 5 days code = 1095) The specimen volume collected for this blood culture was below the optimum (10 mL per bottle or 20 mL total). Use of lower volumes may adversely affect recovery and/or detection times of some organisms.POCT-GLUCOSE [id number] 11:36:06 Test Item Value Reference Range Interpretation Comments POC-GLUCOSE METER 444 mg/dL 70-110 HH : Notified RN/MD: ([facility]) (test code = TESTED AT [facility] 6720 1537) [facility], [address]: Concrete Building Assembler/Techni marissa ID = [id number] for Farzana delgadoinez, Em POCT-GLUCOSE [id number] 09:27:09 Test Item Value Reference Range Interpretation Comments POC-GLUCOSE METER 74 mg/dL 70-110 : [facility] 67[facility] ([facility]) (test code = [facility], 153) [address]: Concrete Building Assembler/Techni marissa ID = [id number] for Em Danielle [id number] 06:25:20 Test Item Value Reference Range Interpretation Comments PARTIAL THROMBOPLASTIN TIME 53.5 seconds 22.5-36.0 H (BEAKER) (test code = 760) POCT-GLUCOSE [id number] 05:54:50 Test Item Value Reference Range Interpretation Comments POC-GLUCOSE METER 164 mg/dL 70-110 H : [facility] (BEAKER) (test code = [facility], 1538) [address]: Concrete Building Assembler/Techni marissa ID = [id number] for Kenneth Chowdary [id number] 04:30:15 Test Item Value Reference Range Interpretation Comments PARTIAL THROMBOPLASTIN TIME 130.7 seconds 22.5-36.0 H (BEAKER) (test code = 760) [id number] 04:26:33 Test Item Value Reference Range Interpretation Comments MAGNESIUM (BEAKER) (test code = 2.4 mg/dL 1.6-2.6 627) Concrete Building Assembler ID - [id number] 04:26:33 Test Item Value Reference Range Interpretation Comments PHOSPHORUS (BEAKER) (test code = 4.2 mg/dL 2.3-4.7 604) Concrete Building Assembler ID - MARCOBASIC METABOLIC [id number] 04:26:32 Test Item Value Reference Range Interpretation Comments SODIUM (BEAKER) 145 meq/L 136-145 (test code = 381) POTASSIUM 4.3 meq/L 3.5-5.1 (BEAKER) (test code = 379) CHLORIDE (BEAKER) 110 meq/L 98-107 H (test code = 382) CO2 (BEAKER) 25 meq/L 22-29 (test code = 355) BLOOD UREA 57 mg/dL 7-21 H NITROGEN (BEAKER) (test code = 354) CREATININE 1.42 mg/dL 0.57-1.25 H (BEAKER) (test code = 358) GLUCOSE RANDOM 169 mg/dL 70-105 H (BEAKER) (test code = 652) CALCIUM (BEAKER) 8.7 mg/dL 8.4-10.2 (test code = 697) EGFR (BEAKER) 58 Interpretatio n of eGFR (test code = mL/min/1.73 values Stage De scription 1092) sq m Result G1 Lucy l or high >=90 G2 Mildly decreased 60-89 G3a Mildl y to moderately 45-5 9 G3b Moderately to s everely 30-44 G4 Severl y decreased 15-29 G5 Kidney failure <15Reported eGF R is based on the CKD-EPI 2021 equation that d oes not use a race coefficientEsti mated GFR is not as accur ate as Creatinine Zuri warner in predicting glom erular filtration rate . Estimated GFR is not appl icable for dialysis patien ts Concrete Building Assembler ID - MARCOCBC W/PLT COUNT & AUTO [id number] 04:11:09 Test Item Value Reference Range Interpretation Comments WHITE BLOOD CELL COUNT (BEAKER) 11.1 K/ L 3.5-10.5 H (test code = 775) RED BLOOD CELL COUNT (BEAKER) 2.76 M/ L 4.63-6.08 L (test code = 761) HEMOGLOBIN (BEAKER) (test code = 7.8 GM/DL 13.7-17.5 L 410) HEMATOCRIT (BEAKER) (test code = 24.4 % 40.1-51.0 L 411) MEAN CORPUSCULAR VOLUME (BEAKER) 88 fL 79-92 (test code = 753) MEAN CORPUSCULAR HEMOGLOBIN 28.3 pg 25.7-32.2 (BEAKER) (test code = 751) MEAN CORPUSCULAR HEMOGLOBIN CONC 32.0 GM/DL 32.3-36.5 L (BEAKER) (test code = 752) RED CELL DISTRIBUTION WIDTH 13.5 % 11.6-14.4 (BEAKER) (test code = 412) PLATELET COUNT (BEAKER) (test 412 K/CU MM 150-450 code = 756) MEAN PLATELET VOLUME (BEAKER) 10.3 fL 9.4-12.4 (test code = 754) NUCLEATED RED BLOOD CELLS 0 /100 WBC 0-0 (BEAKER) (test code = 413) NEUTROPHILS RELATIVE PERCENT 59 % (BEAKER) (test code = 429) LYMPHOCYTES RELATIVE PERCENT 22 % (BEAKER) (test code = 430) MONOCYTES RELATIVE PERCENT 11 % (BEAKER) (test code = 431) EOSINOPHILS RELATIVE PERCENT 7 % (BEAKER) (test code = 432) BASOPHILS RELATIVE PERCENT 1 % (BEAKER) (test code = 437) NEUTROPHILS ABSOLUTE COUNT 6.51 K/ L 1.78-5.38 H (BEAKER) (test code = 670) LYMPHOCYTES ABSOLUTE COUNT 2.42 K/ L 1.32-3.57 (BEAKER) (test code = 414) MONOCYTES ABSOLUTE COUNT (BEAKER) 1.21 K/ L 0.30-0.82 H (test code = 415) EOSINOPHILS ABSOLUTE COUNT 0.79 K/ L 0.04-0.54 H (BEAKER) (test code = 416) BASOPHILS ABSOLUTE COUNT (BEAKER) 0.05 K/ L 0.01-0.08 (test code = 417) IMMATURE GRANULOCYTES-RELATIVE 1.10 % 0.00-1.00 H PERCENT (BEAKER) (test code = 2801) POCT-GLUCOSE [id number] 00:04:56 Test Item Value Reference Range Interpretation Comments POC-GLUCOSE METER 169 mg/dL 70-110 H : TESTED A T [facility] 6720 (BEAKER) (test code = [facility], 1538) [address]: Concrete Building Assembler/Techni marissa ID = [id number] for Idalmis Kenneth berger POCT-GLUCOSE [id number] 20:41:04 Test Item Value Reference Range Interpretation Comments POC-GLUCOSE METER 260 mg/dL 70-110 H : TESTED A T [facility] 6720 (BEAKER) (test code = [facility], 1538) [address]: Concrete Building Assembler/Techni marissa ID = [id number] for ANNA BONILLA POCT-GLUCOSE [id number] 18:42:01 Test Item Value Reference Range Interpretation Comments POC-GLUCOSE METER 370 mg/dL 70-110 H : TESTED A T [facility] 6720 (BEAKER) (test code = [facility], 1538) [address]: Concrete Building Assembler/Techni marissa ID = [id number] for Carolin Han HIGH SENSITIVITY TROPONIN [id number] 18:10:46 Test Item Value Reference Range Interpretation Comments HIGH SENSITIVITY 349 pg/ml See_Comment H [Automated message] TROPONIN I (test code The sy stem which = [id number]) generated this result transmitted ref erence range: <=35. Th e reference range was not used to int erpret this result as normal/abnormal . Concrete Building Assembler ID - ADMINThe EQUIPMENT ENGINEER STAT High Sensitivity Troponin-I results should be used in conjunction with other diagnostic information such as ECG, clinical observations and information, and patientsymptoms to aid in the diagnosis of CO. POCT-GLUCOSE [id number] 17:34:05 Test Item Value Reference Range Interpretation Comments POC-GLUCOSE METER 403 mg/dL 70-110 HH : Notified RN/MD: ([facility]) (test code = TESTED AT [facility] 6442 3972) [facility], [address]: Concrete Building Assembler/Techni marissa ID = [id number] for Caorlin Han [id number] 16:06:38 Test Item Value Reference Range Interpretation Comments MAGNESIUM (BEAKER) 2.1 mg/dL 1.6-2.6 Specimen slightly (test code = 627) hemolyzed Concrete Building Assembler ID - MARCOBASIC METABOLIC [id number] 16:06:38 Test Item Value Reference Range Interpretation Comments SODIUM (BEAKER) 141 meq/L 136-145 (test code = 381) POTASSIUM 4.1 meq/L 3.5-5.1 Specimen slight ly (BEAKER) (test hemolyzed code = 379) CHLORIDE (BEAKER) 104 meq/L 98-107 (test code = 382) CO2 (BEAKER) 23 meq/L 22-29 (test code = 355) BLOOD UREA 66 mg/dL 7-21 H NITROGEN (BEAKER) (test code = 354) CREATININE 1.66 mg/dL 0.57-1.25 H Specimen slight ly (BEAKER) (test hemolyzed code = 358) GLUCOSE RANDOM 323 mg/dL 70-105 H (BEAKER) (test code = 652) CALCIUM (BEAKER) 8.9 mg/dL 8.4-10.2 (test code = 697) EGFR (BEAKER) 48 Interpretatio n of eGFR (test code = mL/min/1.73 values Stage De scription 1092) sq m Result G1 Lucy l or high >=90 G2 Mildly decreased 60-89 G3a Mildl y to moderately 45-5 9 G3b Moderately to s everely 30-44 G4 Severl y decreased 15-29 G5 Kidney failure <15Reported eGF R is based on the CKD-EPI 2020 equation that d oes not use a race coefficientEsti mated GFR is not as accur ate as Creatinine Zuri hylton in predicting glom erular filtration rate . Estimated GFR is not appl icable for dialysis patien ts Concrete Building Assembler ID - HERMELINDAOHIGH SENSITIVITY TROPONIN [id number] 14:40:45 Test Item Value Reference Range Interpretation Comments HIGH SENSITIVITY 389 pg/ml See_Comment H [Automated message] TROPONIN I (test code The sy stem which = [id number]) generated this result transmitted ref erence range: <=35. Th e reference range was not used to int erpret this result as normal/abnormal . Concrete Building Assembler ID - Norma EQUIPMENT ENGINEER STAT High Sensitivity Troponin-I results should be used in conjunction with other diagnostic information such as ECG, clinical observations and information, and patientsymptoms to aid in the diagnosis of CO. VANCOMYCIN LEVEL, [id number] 12:48:11 Test Item Value Reference Range Interpretation Comments VANCOMYCIN RANDOM (BEAKER) (test 18.7 ug/mL code = 523) Reference Range: No NormalsOperator ID - MARCOCBC W/PLT COUNT & AUTO [id number] 11:28:07 Test Item Value Reference Range Interpretation Comments WHITE BLOOD CELL COUNT (BEAKER) 12.7 K/ L 3.5-10.5 H (test code = 775) RED BLOOD CELL COUNT (BEAKER) 2.86 M/ L 4.63-6.08 L (test code = 761) HEMOGLOBIN (BEAKER) (test code = 8.2 GM/DL 13.7-17.5 L 410) HEMATOCRIT (BEAKER) (test code = 25.8 % 40.1-51.0 L 411) MEAN CORPUSCULAR VOLUME (BEAKER) 90 fL 79-92 (test code = 753) MEAN CORPUSCULAR HEMOGLOBIN 28.7 pg 25.7-32.2 (BEAKER) (test code = 751) MEAN CORPUSCULAR HEMOGLOBIN CONC 31.8 GM/DL 32.3-36.5 L (BEAKER) (test code = 752) RED CELL DISTRIBUTION WIDTH 13.5 % 11.6-14.4 (BEAKER) (test code = 412) PLATELET COUNT (BEAKER) (test 404 K/CU MM 150-450 code = 756) MEAN PLATELET VOLUME (BEAKER) 10.9 fL 9.4-12.4 (test code = 754) NUCLEATED RED BLOOD CELLS 0 /100 WBC 0-0 (BEAKER) (test code = 413) NEUTROPHILS RELATIVE PERCENT 57 % (BEAKER) (test code = 429) LYMPHOCYTES RELATIVE PERCENT 24 % (BEAKER) (test code = 430) MONOCYTES RELATIVE PERCENT 10 % (BEAKER) (test code = 431) EOSINOPHILS RELATIVE PERCENT 8 % (BEAKER) (test code = 432) BASOPHILS RELATIVE PERCENT 1 % (BEAKER) (test code = 437) NEUTROPHILS ABSOLUTE COUNT 7.17 K/ L 1.78-5.38 H (BEAKER) (test code = 670) LYMPHOCYTES ABSOLUTE COUNT 3.04 K/ L 1.32-3.57 (BEAKER) (test code = 414) MONOCYTES ABSOLUTE COUNT (BEAKER) 1.29 K/ L 0.30-0.82 H (test code = 415) EOSINOPHILS ABSOLUTE COUNT 1.00 K/ L 0.04-0.54 H (BEAKER) (test code = 416) BASOPHILS ABSOLUTE COUNT (BEAKER) 0.06 K/ L 0.01-0.08 (test code = 417) IMMATURE GRANULOCYTES-RELATIVE 0.90 % 0.00-1.00 PERCENT (BEAKER) (test code = 2801) POCT-GLUCOSE [id number] 10:19:14 Test Item Value Reference Range Interpretation Comments POC-GLUCOSE METER 176 mg/dL 70-110 H : TESTED A T [facility] 6720 (BEAKER) (test code = [facility], [facility]) [address]: Concrete Building Assembler/Techni marissa ID = [id number] for JU AREZ, DAYANNA POCT-GLUCOSE [id number] 08:00:30 Test Item Value Reference Range Interpretation Comments POC-GLUCOSE METER 87 mg/dL 70-110 : TESTED A T [facility] 6720 (BEAKER) (test code = [facility], 1538) [address]: Concrete Building Assembler/Techni marissa ID = [id number] for JUAR EZ, DAYANNA POCT-GLUCOSE [id number] 06:52:26 Test Item Value Reference Range Interpretation Comments POC-GLUCOSE METER 120 mg/dL 70-110 H : TESTED A T [facility] 6720 (BEAKER) (test code = [facility], 1538) [address]: Concrete Building Assembler/Techni marissa ID = [id number] for Kenneth Chowdary [id number] 06:46:13 Test Item Value Reference Range Interpretation Comments PARTIAL THROMBOPLASTIN TIME 68.6 seconds 22.5-36.0 H (BEAKER) (test code = 760) [id number] 06:45:18 Test Item Value Reference Range Interpretation Comments PHOSPHORUS (BEAKER) (test code = 3.5 mg/dL 2.3-4.7 604) Concrete Building Assembler ID - [id number] 06:45:17 Test Item Value Reference Range Interpretation Comments MAGNESIUM (BEAKER) (test code = 2.4 mg/dL 1.6-2.6 627) Concrete Building Assembler ID - MARCOBASIC METABOLIC [id number] 06:45:16 Test Item Value Reference Range Interpretation Comments SODIUM (BEAKER) 146 meq/L 136-145 H (test code = 381) POTASSIUM 3.4 meq/L 3.5-5.1 L (BEAKER) (test code = 379) CHLORIDE (BEAKER) 109 meq/L 98-107 H (test code = 382) CO2 (BEAKER) 26 meq/L 22-29 (test code = 355) BLOOD UREA 70 mg/dL 7-21 H NITROGEN (BEAKER) (test code = 354) CREATININE 1.50 mg/dL 0.57-1.25 H (BEAKER) (test code = 358) GLUCOSE RANDOM 60 mg/dL 70-105 L (BEAKER) (test code = 652) CALCIUM (BEAKER) 9.0 mg/dL 8.4-10.2 (test code = 697) EGFR (BEAKER) 54 Interpretatio n of eGFR (test code = mL/min/1.73 values Stage De scription 1092) sq m Result G1 Lucy l or high >=90 G2 Mildly decreased 60-89 G3a Mildl y to moderately 45-5 9 G3b Moderately to s everely 30-44 G4 Severl y decreased 15-29 G5 Kidney failure <15Reported eGF R is based on the CKD-EPI 2020 equation that d oes not use a race coefficientEsti mated GFR is not as accur ate as Creatinine Zuri hylton in predicting glom erular filtration rate . Estimated GFR is not appl icable for dialysis patien ts [employer] Building Assembler ID - [id number] (HEMOGRAM ONLY)2023-01-24 06:33:08 Test Item Value Reference Range Interpretation Comments WHITE BLOOD CELL COUNT (BEAKER) 13.0 K/ L 3.5-10.5 H (test code = 775) RED BLOOD CELL COUNT (BEAKER) 2.91 M/ L 4.63-6.08 L (test code = 761) HEMOGLOBIN (BEAKER) (test code = 8.4 GM/DL 13.7-17.5 L 410) HEMATOCRIT (BEAKER) (test code = 25.2 % 40.1-51.0 L 411) MEAN CORPUSCULAR VOLUME (BEAKER) 87 fL 79-92 (test code = 753) MEAN CORPUSCULAR HEMOGLOBIN 28.9 pg 25.7-32.2 (BEAKER) (test code = 751) MEAN CORPUSCULAR HEMOGLOBIN CONC 33.3 GM/DL 32.3-36.5 (BEAKER) (test code = 752) RED CELL DISTRIBUTION WIDTH 13.4 % 11.6-14.4 (BEAKER) (test code = 412) PLATELET COUNT (BEAKER) (test 384 K/CU MM 150-450 code = 756) MEAN PLATELET VOLUME (BEAKER) 10.0 fL 9.4-12.4 (test code = 754) NUCLEATED RED BLOOD CELLS 0 /100 WBC 0-0 (BEAKER) (test code = 413) POCT-GLUCOSE [id number] 06:25:01 Test Item Value Reference Range Interpretation Comments POC-GLUCOSE METER 66 mg/dL 70-110 L : TESTED A T [facility] 6720 (BEAKER) (test code = [facility] Kleo [facility], 1538) [id number]: Concrete Building Assembler/Techni marissa ID = [id number] for Kenneth Blandon [id number] 00:38:38 Test Item Value Reference Range Interpretation Comments PARTIAL THROMBOPLASTIN TIME 71.0 seconds 22.5-36.0 H (BEAKER) (test code = 760) POCT-GLUCOSE [id number] 00:19:21 Test Item Value Reference Range Interpretation Comments POC-GLUCOSE METER 166 mg/dL 70-110 H : TESTED A T [facility] 6720 (BEAKER) (test code = [facility] Kleo [facility], 153) [id number]: Con[employer] Building Assembler/Techni marissa ID = [id number] for Kenneth Chowdary POCT-GLUCOSE [id number] 21:35:37 Test Item Value Reference Range Interpretation Comments POC-GLUCOSE METER 154 mg/dL 70-110 H : TESTED A T [facility] 6720 (BEAKER) (test code = NABOR Guardado [facility], 1538) [id number]: Concrete Building Assembler/Techni marissa ID = [id number] for Kenneth Chowdary [id number] 16:48:00 Test Item Value Reference Range Interpretation Comments MAGNESIUM (BEAKER) (test code = 2.5 mg/dL 1.6-2.6 627) Concrete Building Assembler ID - BSPOCT-GLUCOSE [id number] 16:35:19 Test Item Value Reference Range Interpretation Comments POC-GLUCOSE METER 101 mg/dL 70-110 : TESTED A T [facility] 6720 (BEAKER) (test code = NABOR Guardado [facility], 1538) 199[address]: Concrete Building Assembler/Techni marissa ID = [id number] for Carolin Han BASIC METABOLIC [id number] 12:59:13 Test Item Value Reference Range Interpretation Comments SODIUM (BEAKER) 149 meq/L 136-145 H (test code = 381) POTASSIUM 3.6 meq/L 3.5-5.1 (BEAKER) (test code = 379) CHLORIDE (BEAKER) 110 meq/L 98-107 H (test code = 382) CO2 (BEAKER) 25 meq/L 22-29 (test code = 355) BLOOD UREA 78 mg/dL 7-21 H NITROGEN (BEAKER) (test code = 354) CREATININE 1.64 mg/dL 0.57-1.25 H (BEAKER) (test code = 358) GLUCOSE RANDOM 99 mg/dL 70-105 (BEAKER) (test code = 652) CALCIUM (BEAKER) 9.0 mg/dL 8.4-10.2 (test code = 697) EGFR (BEAKER) 48 Interpretatio n of eGFR (test code = mL/min/1.73 values Stage De scription 1092) sq m Result G1 Lucy l or high >=90 G2 Mildly decreased 60-89 G3a Mildl y to moderately 45-5 9 G3b Moderately to s everely 30-44 G4 Severl y decreased 15-29 G5 Kidney failure <15Reported eGF R is based on the CKD-EPI 2020 equation that d oes not use a race coefficientEsti mated GFR is not as accur ate as Creatinine Zuri hylton in predicting glom erular filtration rate . Estimated GFR is not appl icable for dialysis patijohn pena Concrete Building Assembler ID - ADMINPOCT-GLUCOSE [id number] 11:31:46 Test Item Value Reference Range Interpretation Comments POC-GLUCOSE METER 123 mg/dL 70-110 H : TESTED A T [facility] 6720 (BEAKER) (test code = [facility], 1538) 074[address]: Concrete Building Assembler/Techni marissa ID = [id number] for DAYANNA HERNANDEZ POCT-GLUCOSE [id number] 08:14:22 Test Item Value Reference Range Interpretation Comments POC-GLUCOSE METER 206 mg/dL 70-110 H : TESTED A T [facility] 6720 (BEAKER) (test code = [facility], 1538) 49555: Concrete Building Assembler/Techni marissa ID = [id number] for DAYANNA HERNANDEZ [id number] 06:40:22 Test Item Value Reference Range Interpretation Comments MAGNESIUM (BEAKER) (test code = 2.5 mg/dL 1.6-2.6 627) Concrete Building Assembler ID - [id number] 06:40:22 Test Item Value Reference Range Interpretation Comments PHOSPHORUS (BEAKER) (test code = 4.3 mg/dL 2.3-4.7 604) Concrete Building Assembler ID - BSBASIC METABOLIC [id number] 06:40:21 Test Item Value Reference Range Interpretation Comments SODIUM (BEAKER) 150 meq/L 136-145 H (test code = 381) POTASSIUM 3.3 meq/L 3.5-5.1 L (BEAKER) (test code = 379) CHLORIDE (BEAKER) 107 meq/L 98-107 (test code = 382) CO2 (BEAKER) 27 meq/L 22-29 (test code = 355) BLOOD UREA 79 mg/dL 7-21 H NITROGEN (BEAKER) (test code = 354) CREATININE 1.92 mg/dL 0.57-1.25 H (BEAKER) (test code = 358) GLUCOSE RANDOM 136 mg/dL 70-105 H (BEAKER) (test code = 652) CALCIUM (BEAKER) 9.8 mg/dL 8.4-10.2 (test code = 697) EGFR (BEAKER) 40 Interpretatio n of eGFR (test code = mL/min/1.73 values Stage De scription 1092) sq m Result G1 Lucy l or high >=90 G2 Mildly decreased 60-89 G3a Mildl y to moderately 45-5 9 G3b Moderately to s everely 30-44 G4 Severl y decreased 15-29 G5 Kidney failure <15Reported eGF R is based on the CKD-EPI 2020 equation that d oes not use a race coefficientEsti mated GFR is not as accur ate as Creatinine Zuri warner in predicting glom erular filtration rate . Estimated GFR is not appl icable for dialysis patien ts Concrete Building Assembler ID - BSVANCOMYCIN LEVEL, [id number] 06:36:41 Test Item Value Reference Range Interpretation Comments VANCOMYCIN RANDOM (BEAKER) (test 17.6 ug/mL code = 523) Reference Range: No NormalsOperator ID - [id number] 06:34:40 Test Item Value Reference Range Interpretation Comments PARTIAL THROMBOPLASTIN TIME 49.6 seconds 22.5-36.0 H (BEAKER) (test code = 760) CBC (HEMOGRAM ONLY)2023-01-23 06:16:56 Test Item Value Reference Range Interpretation Comments WHITE BLOOD CELL COUNT (BEAKER) 16.6 K/ L 3.5-10.5 H (test code = 775) RED BLOOD CELL COUNT (BEAKER) 3.33 M/ L 4.63-6.08 L (test code = 761) HEMOGLOBIN (BEAKER) (test code = 9.4 GM/DL 13.7-17.5 L 410) HEMATOCRIT (BEAKER) (test code = 29.5 % 40.1-51.0 L 411) MEAN CORPUSCULAR VOLUME (BEAKER) 89 fL 79-92 (test code = 753) MEAN CORPUSCULAR HEMOGLOBIN 28.2 pg 25.7-32.2 (BEAKER) (test code = 751) MEAN CORPUSCULAR HEMOGLOBIN CONC 31.9 GM/DL 32.3-36.5 L (BEAKER) (test code = 752) RED CELL DISTRIBUTION WIDTH 13.8 % 11.6-14.4 (BEAKER) (test code = 412) PLATELET COUNT (BEAKER) (test 449 K/CU MM 150-450 code = 756) MEAN PLATELET VOLUME (BEAKER) 10.7 fL 9.4-12.4 (test code = 754) NUCLEATED RED BLOOD CELLS 0 /100 WBC 0-0 (BEAKER) (test code = 413) POCT-GLUCOSE [id number] 05:42:18 Test Item Value Reference Range Interpretation Comments POC-GLUCOSE METER 169 mg/dL 70-110 H : [facility] 67[facility] (test code = [facility], 1538) 16307: Concrete Building Assembler/Techni marissa ID = [id number] for YE (V), WEIPING POCT-GLUCOSE [id number] 22:15:28 Test Item Value Reference Range Interpretation Comments POC-GLUCOSE METER 187 mg/dL 70-110 H : TESTED A T [facility] 6720 ([facility]) (test code = [facility], 1538) 51792: Concrete Building Assembler/Techni marissa ID = [id number] for YE (V), WEIPING [id number] 21:21:50 Test Item Value Reference Range Interpretation Comments PARTIAL THROMBOPLASTIN TIME 57.8 seconds 22.5-36.0 H (AKER) (test code = 760) POCT-GLUCOSE [id number] 18:52:22 Test Item Value Reference Range Interpretation Comments POC-GLUCOSE METER 239 mg/dL 70-110 H : TESTED A T [facility] 6720 ([facility]) (test code = [facility], 1538) 67176: Concrete Building Assembler/Techni marissa ID = [id number] for Carolin Han VANCOMYCIN LEVEL, [id number] 16:55:57 Test Item Value Reference Range Interpretation Comments VANCOMYCIN TROUGH (BEAKER) (test 23.1 ug/mL 10.0-20.0 H code = 522) Concrete Building Assembler ID - [id number] 16:34:31 Test Item Value Reference Range Interpretation Comments PARTIAL THROMBOPLASTIN TIME 72.1 seconds 22.5-36.0 H (BEAKER) (test code = 760) POCT-GLUCOSE [id number] 16:28:17 Test Item Value Reference Range Interpretation Comments POC-GLUCOSE METER 249 mg/dL 70-110 H : TESTED A T [facility] 6720 (BEAKER) (test code = NABOR Guardado [place], 1538) 779[address]: Concrete Building Assembler/Techni marissa ID = [id number] for Carolin Han SPUTUM CULTURE + GRAM [id number] 14:27:44 Test Item Value Reference Range Interpretation Comments CULTURE (BEAKER) (test No growth code = 1095) GRAM STAIN RESULT <1+ WBCs (BEAKER) (test code = 1123) GRAM STAIN RESULT <1+ gram positive cocci (BEAKER) (test code = in chains 44305) XR CHEST 1 VIEW PORTABLE / [id number] 14:24:59 [facility] 1965 Sex: MXR CHEST 1 VIEW PORTABLE / BEDSIDEINDICATION: iabpCOMPARISON: 01/22/2023TECHNIQUE: Portable frontal view(s)of the chest. FINDINGS: Support Lines and Devices: Stable. The intra-aortic balloon pump tipoverliesthe inferior aspect of the aortic knob. Lungs and pleura: Unchanged airspace and pleural opacities. Nopneumothorax identified.Heart and mediastinum: Stable contours. Stable surgical changes.Additional findings: Mild spondylosis and facet arthropathy are presentwithin the spine.IMPRESSION:1. No significant change from prior exam.2. Hazy airspace opacities in the lower lungs bilaterally, which mayrepresent atelectasis, pneumonia, or pulmonary edema.Electronically Signed By: Keyur Johnson01/22/2023 14:27 CDTWorkstation Name: [id number] 12:41:43 Test Item Value Reference Range Interpretation Comments MAGNESIUM (BEAKER) (test code = 2.3 mg/dL 1.6-2.6 627) Concrete Building Assembler ID - MARCOBASIC METABOLIC [id number] 12:41:42 Test Item Value Reference Range Interpretation Comments SODIUM (BEAKER) 146 meq/L 136-145 H (test code = 381) POTASSIUM 3.7 meq/L 3.5-5.1 (BEAKER) (test code = 379) CHLORIDE (BEAKER) 105 meq/L 98-107 (test code = 382) CO2 (BEAKER) 24 meq/L 22-29 (test code = 355) BLOOD UREA 83 mg/dL 7-21 H NITROGEN (BEAKER) (test code = 354) CREATININE 2.29 mg/dL 0.57-1.25 H (BEAKER) (test code = 358) GLUCOSE RANDOM 263 mg/dL 70-105 H (BEAKER) (test code = 652) CALCIUM (BEAKER) 9.6 mg/dL 8.4-10.2 (test code = 697) EGFR (BEAKER) 32 Interpretatio n of eGFR (test code = mL/min/1.73 values Stage De scription 1092) sq m Result G1 Lucy l or high >=90 G2 Mildly decreased 60-89 G3a Mildl y to moderately 45-5 9 G3b Moderately to s everely 30-44 G4 Severl y decreased 15-29 G5 Kidney failure <15Reported eGF R is based on the CKD-EPI 2020 equation that d oes not use a race coefficientEsti mated GFR is not as accur ate as Creatinine Zuri warner in predicting glom erular filtration rate . Estimated GFR is not appl icable for dialysis patien ts Concrete Building Assembler ID - MARCOPOCT-GLUCOSE [id number] 12:27:53 Test Item Value Reference Range Interpretation Comments POC-GLUCOSE METER 270 mg/dL 70-110 H : TESTED A T [facility] 6720 (BEAKER) (test code = [place], 1538) [address]: Concrete Building Assembler/Techni marissa ID = [id number] for Carolin Han XR CHEST 1 VIEW PORTABLE / [id number] 12:06:06 [facility] 1965 Sex: MXR CHEST 1 VIEW PORTABLE / BEDSIDEINDICATION: IABP placementCOMPARISON: Prior day's examTECHNIQUE: Portable frontal view(s) of the chest. FINDINGS: Support Lines and Devices: The right IJ Litch[place]-Michael catheter was removed.Interval extubation and removal of the enteric tube. Otherwise, the lifesupport lines andtubes appear unchanged.The intra-aortic balloon pump tip overlies the aortopulmonary window.Lungs and pleura: Unchanged airspace and pleural opacities. Nopneumothorax identified.Heart and mediastinum: Stable contours. Stable surgical changes.Additional findings: None.IMPRESSION:Interval extubation and removal of the enteric tube.Electronically Signed By: Keyur Johnson01/22/2023 12:08 CDTWorkstation Name: [id number] 10:34:10 Test Item Value Reference Range Interpretation Comments PARTIAL THROMBOPLASTIN TIME 106.6 seconds 22.5-36.0 H ([place]) (test code = 760) POCT-GLUCOSE [id number] 09:15:00 Test Item Value Reference Range Interpretation Comments POC-GLUCOSE METER 170 mg/dL 70-110 H : TESTED A T [facility] 6720 ([place]) (test code = [facility], 1538) 35686: Concrete Building Assembler/Techni marissa ID = [id number] for Et zier, Carolin POCT-GLUCOSE [id number] 07:58:39 Test Item Value Reference Range Interpretation Comments POC-GLUCOSE METER 115 mg/dL 70-110 H : TESTED A T [facility] 6720 ([place]) (test code = [facility], 1538) 32668: Concrete Building Assembler/Techni marissa ID = [id number] for Et zier, Carolin POCT-GLUCOSE [id number] 06:52:35 Test Item Value Reference Range Interpretation Comments POC-GLUCOSE METER 85 mg/dL 70-110 : TESTED A T [facility] 6720 (BEAKER) (test code = [place], 1538) 59487: Concrete Building Assembler/Techni marissa ID = [id number] for MORENA ( Lina)CHAU BASIC METABOLIC [id number] 04:43:46 Test Item Value Reference Range Interpretation Comments SODIUM (BEAKER) 149 meq/L 136-145 H (test code = 381) POTASSIUM 4.0 meq/L 3.5-5.1 Specimen slight ly (BEAKER) (test hemolyzed code = 379) CHLORIDE (BEAKER) 106 meq/L 98-107 (test code = 382) CO2 (BEAKER) 25 meq/L 22-29 (test code = 355) BLOOD UREA 80 mg/dL 7-21 H NITROGEN (BEAKER) (test code = 354) CREATININE 2.20 mg/dL 0.57-1.25 H Specimen slight ly (BEAKER) (test hemolyzed code = 358) GLUCOSE RANDOM 128 mg/dL 70-105 H (BEAKER) (test code = 652) CALCIUM (BEAKER) 10.1 mg/dL 8.4-10.2 (test code = 697) EGFR (BEAKER) 34 Interpretatio n of eGFR (test code = mL/min/1.73 values Stage De scription 1092) sq m Result G1 Lucy l or high >=90 G2 Mildly decreased 60-89 G3a Mildl y to moderately 45-5 9 G3b Moderately to s everely 30-44 G4 Severl y decreased 15-29 G5 Kidney failure <15Reported eGF R is based on the CKD-EPI 1 equation that d oes not use a race coefficientEsti mated GFR is not as accur ate as Creatinine Zuri hylton in predicting glom erular filtration rate . Estimated GFR is not appl icable for dialysis patien ts Concrete Building Assembler ID - [id number] 04:43:45 Test Item Value Reference Range Interpretation Comments MAGNESIUM (BEAKER) 2.4 mg/dL 1.6-2.6 Specimen slightly (test code = 627) hemolyzed Concrete Building Assembler ID - [id number] 04:43:45 Test Item Value Reference Range Interpretation Comments PHOSPHORUS (BEAKER) 4.1 mg/dL 2.3-4.7 Specimen slightly (test code = 604) hemolyzed Concrete Building Assembler ID - [id number] 04:29:46 Test Item Value Reference Range Interpretation Comments PARTIAL THROMBOPLASTIN TIME 70.7 seconds 22.5-36.0 H (BEAKER) (test code = 760) CALCIUM, [id number] 04:24:43 Test Item Value Reference Range Interpretation Comments CALCIUM IONIZED (BEAKER) (test 1.07 mmol/L 1.12-1.27 L code = 698) PH, BLOOD (BEAKER) (test code = 7.42 1810) CBC (HEMOGRAM ONLY)2023-01-22 04:21:29 Test Item Value Reference Range Interpretation Comments WHITE BLOOD CELL COUNT (BEAKER) 19.9 K/ L 3.5-10.5 H (test code = 775) RED BLOOD CELL COUNT (BEAKER) 3.36 M/ L 4.63-6.08 L (test code = 761) HEMOGLOBIN (BEAKER) (test code = 9.4 GM/DL 13.7-17.5 L 410) HEMATOCRIT (BEAKER) (test code = 29.7 % 40.1-51.0 L 411) MEAN CORPUSCULAR VOLUME (BEAKER) 88 fL 79-92 (test code = 753) MEAN CORPUSCULAR HEMOGLOBIN 28.0 pg 25.7-32.2 (BEAKER) (test code = 751) MEAN CORPUSCULAR HEMOGLOBIN CONC 31.6 GM/DL 32.3-36.5 L (BEAKER) (test code = 752) RED CELL DISTRIBUTION WIDTH 13.9 % 11.6-14.4 (BEAKER) (test code = 412) PLATELET COUNT (BEAKER) (test 393 K/CU MM 150-450 code = 756) MEAN PLATELET VOLUME (BEAKER) 10.1 fL 9.4-12.4 (test code = 754) NUCLEATED RED BLOOD CELLS 0 /100 WBC 0-0 (BEAKER) (test code = 413) POCT-GLUCOSE [id number] 04:20:17 Test Item Value Reference Range Interpretation Comments POC-GLUCOSE METER 126 mg/dL 70-110 H : TESTED A T [facility] 6720 (BEAKER) (test code = [place], 1538) [address]: Concrete Building Assembler/Techni marissa ID = [id number] for Ad Anton esteban POCT-GLUCOSE [id number] 03:46:36 Test Item Value Reference Range Interpretation Comments POC-GLUCOSE METER 145 mg/dL 70-110 H : [facility] ([facility] (test code = NABOR Guardado [facility], 1538) 669[address]: Concrete Building Assembler/Techni marissa ID = [id number] for YE (V), WEIPING BLOOD [id number] 03:00:23 Test Item Value Reference Range Interpretation Comments CULTURE (BEAKER) (test No growth in 5 days code = 1095) BLOOD [id number] 03:00:23 Test Item Value Reference Range Interpretation Comments CULTURE (BEAKER) (test No growth in 5 days code = 1095) The specimen volume collected for this blood culture was below the optimum (10 mL per bottle or 20 mL total). Use of lower volumes may adversely affect recovery and/or detection times of some organisms.CT ABDOMEN/PELVIS WITHOUT IV [id number] 02:25:01 [facility] 1965 Sex: MTECHNIQUE: CT of the chest, abdomen, and pelvis WITHOUT intravenouscontrast and WITHOUT oral contrast. Dose modulation, iterativereconstruction, and/or weight-based adjustment of the mA/kV was utilizedto reduce the radiation dose to as low as reasonably achievable.INDICATION: SepsisOngoing fever on antibiotics.COMPARISON: None.FINDINGS:ABSENCE OF INTRAVENOUS CONTRAST DECREASES SENSITIVITY FOR DETECTION OFFOCAL LESIONS AND VASCULAR PATHOLOGY.LINES/TUBES: Left transjugular central venous catheter terminateswithinthe right atrium. Intra-aortic balloon pump present with marker withinthe aortic arch distal to the left subclavian artery.LUNGS AND AIRWAYS: There are airspace consolidations within the leftgreat er than right lower lobes and within the lingula. Distalsubsegmental airways extending to the consolidations are opacified.Central tracheobronchial airways are clear.PLEURA: The pleural spaces are clear.HEART AND MEDIASTINUM: The visualized thyroid gland is normal. Nosignificant mediastinal, hilar, oraxillary lymphadenopathy. Moderatecoronary atherosclerotic calcifications. No pericardial effusion.HEPATOBILIARY: No focal hepatic lesions. Gallbladder contains smallgallstones. No biliary ductal dilatation.SPLEEN: No splenomegaly.PANCREAS: No focal masses or ductal dilatation.ADRENALS: No adrenal nodu les.KIDNEYS/URETERS: No hydronephrosis, stones, or exophytic masses.PELVIC ORGANS/BLADDER: Small amount of gas present within the bladder.PERITONEUM/RETROPERITONEUM: No free air or fluid.LYMPH NODES: No lymphadenopathy.VESSELS: Unremarkable.GI TRACT: No distention or wall thickening. Appendix not identified. Nosecondary signs of appendicitis.BONES AND SOFT TISSUES: Unremarkable.IMPRESSION:1. The consolidative airspace opacities in both lower lobes and withinthe lingula concerning for pneumonitis and/or aspiration.2. Small amount of gas within the bladder may reflect recentcatheterization or cystitis.3. Otherwise, no acute abnormality within the abdomen or pelvis.4. Cholelithiasis.Electronically Signed By: Chilango Braga01/22/2023 02:27 CDTWorkstation Name: [id number] CHEST WITHOUT IV CONTRAST 2023-01-22 02:25:01 [facility]O [facility]IGGS : 1965 Sex: MTECHNIQUE: CT of the chest, abdomen, and pelvis WITHOUT intravenouscontrast and WITHOUT oral contrast. Dose modulation, iterativereconstruction, and/or weight-based adjustment of the mA/kV was utilizedto reduce the radiation dose to as low as reasonably achievable.INDICATION: SepsisOngoing fever on antibiotics.COMPARISON: None.FINDINGS:ABSENCE OF INTRAVENOUS CONTRAST DECREASES SENSITIVITY FOR DETECTION OFFOCAL LESIONS AND VASCULAR PATHOLOGY.LINES/TUBES: Left transjugular central venous catheter terminateswithinthe right atrium. Intra-aortic balloon pump present with marker withinthe aortic arch distal to the left subclavian artery.LUNGS AND AIRWAYS: There are airspace consolidations within the leftgreat er than right lower lobes and within the lingula. Distalsubsegmental airways extending to the consolidations are opacified.Central tracheobronchial airways are clear.PLEURA: The pleural spaces are clear.HEART AND MEDIASTINUM: The visualized thyroid gland is normal. Nosignificant mediastinal, hilar, oraxillary lymphadenopathy. Moderatecoronary atherosclerotic calcifications. No pericardial effusion.HEPATOBILIARY: No focal hepatic lesions. Gallbladder contains smallgallstones. No biliary ductal dilatation.SPLEEN: No splenomegaly.PANCREAS: No focal masses or ductal dilatation.ADRENALS: No adrenal nodu les.KIDNEYS/URETERS: No hydronephrosis, stones, or exophytic masses.PELVIC ORGANS/BLADDER: Small amount of gas present within the bladder.PERITONEUM/RETROPERITONEUM: No free air or fluid.LYMPH NODES: No lymphadenopathy.VESSELS: Unremarkable.GI TRACT: No distention or wall thickening. Appendix not identified. Nosecondary signs of appendicitis.BONES AND SOFT TISSUES: Unremarkable.IMPRESSION:1. The consolidative airspace opacities in both lower lobes and withinthe lingula concerning for pneumonitis and/or aspiration.2. Small amount of gas within the bladder may reflect recentcatheterization or cystitis.3. Otherwise, no acute abnormality within the abdomen or pelvis.4. Cholelithiasis.Electronically Signed By: Chilango Braga01/22/2023 02:27 CDTWorkstation Name: [id number] 01:10:15 Test Item Value Reference Range Interpretation Comments POC-GLUCOSE METER 181 mg/dL 70-110 H : TESTED A T [facility] 67evOLED ([place]) (test code = [facility], 1538) 751[address]: Concrete Building Assembler/Techni marissa ID = [id number] for YE (V), WEIPING POCT-GLUCOSE [id number] 23:41:55 Test Item Value Reference Range Interpretation Comments POC-GLUCOSE METER 225 mg/dL 70-110 H : TESTED A T [facility] 6720 (BEAKER) (test code = [facility], 1538) 25861: Concrete Building Assembler/Techni marissa ID = [id number] for YE (V), WEIPING POCT-GLUCOSE [id number] 22:35:17 Test Item Value Reference Range Interpretation Comments POC-GLUCOSE METER 252 mg/dL 70-110 H : TESTED A T [facility] 6720 (BEAKER) (test code = [facility], [facility]8) [address]: Concrete Building Assembler/Techni marissa ID = [id number] for YE (V), WEIPING POCT-GLUCOSE [id number] 21:23:42 Test Item Value Reference Range Interpretation Comments POC-GLUCOSE METER 326 mg/dL 70-110 H : TESTED A T [facility] 6720 (BEAKER) (test code = [facility], [facility]8) 8[address]: Concrete Building Assembler/Techni marissa ID = [id number] for YE (V), [place]IP[place] BASIC METABOLIC [id number] 20:47:16 Test Item Value Reference Range Interpretation Comments SODIUM (BEAKER) 142 meq/L 136-145 (test code = 381) POTASSIUM 3.8 meq/L 3.5-5.1 (BEAKER) (test code = 379) CHLORIDE (BEAKER) 102 meq/L 98-107 (test code = 382) CO2 (BEAKER) 22 meq/L 22-29 (test code = 355) BLOOD UREA 79 mg/dL 7-21 H NITROGEN (BEAKER) (test code = 354) CREATININE 2.23 mg/dL 0.57-1.25 H (BEAKER) (test code = 358) GLUCOSE RANDOM 418 mg/dL 70-105 HH (BEAKER) (test code = 652) CALCIUM (BEAKER) 9.4 mg/dL 8.4-10.2 (test code = 697) EGFR (BEAKER) 34 Interpretati on of eGFR (test code = mL/min/1.73 values Stage De scription 1092) sq m Result G1 Lucy l or high >=90 G2 Mildly decreased 60-89 G3a Mildl y to moderately 45-5 9 G3b Moderately to s everely 30-44 G4 Severl y decreased 15-29 G5 Kidney failure <15Reported eGF R is based on the CKD-EPI 2020 equation that d oes not use a race coefficientEsti mated GFR is not as accur ate as Creatinine Zuri warner in predicting glom erular filtration rate . Estimated GFR is not appl icable for dialysis patien ts Concrete Building Assembler ID - [id number] 20:44:44 Test Item Value Reference Range Interpretation Comments MAGNESIUM ([facility]) (test code = 2.3 mg/dL 1.6-2.6 627) Concrete Building Assembler ID - ADMINPOCT-GLUCOSE [id number] 20:32:33 Test Item Value Reference Range Interpretation Comments POC-GLUCOSE METER 412 mg/dL 70-110 HH : TESTED A T [place] [address] ([facility]) (test [facility] = [facility], 1538) [address]: Concrete Building Assembler/Techni marissa ID = [id number] for YE (V)CHAU POCT-GLUCOSE [id number] 18:46:43 Test Item Value Reference Range Interpretation Comments POC-GLUCOSE METER 458 mg/dL 70-110 HH : Notified RN/MD: (SUNG) (test code = TESTED AT [place] [address] 1538) [facility], [address]: Concrete Building Assembler/Techni marissa ID = [id number] for FRANCO VARGAS POCT-GLUCOSE [id number] 17:50:28 Test Item Value Reference Range Interpretation Comments POC-GLUCOSE METER 487 mg/dL 70-110 HH : Notified RN/MD: (SUNG) (test code = TESTED AT [place] [address] 1538) [facility], [address]: Concrete Building Assembler/Techni marissa ID = [id number] for Of Khalif holguin [id number] 16:44:58 Test Item Value Reference Range Interpretation Comments GLUCOSE RANDOM ([facility]) (test code 580 mg/dL 70-105 HH = 652) Concrete Building Assembler ID - ADMINPOCT-GLUCOSE [id number] 16:10:51 Test Item Value Reference Range Interpretation Comments POC-GLUCOSE METER > mg/dL 70-110 HH : Notified RN/MD: Verify (BEAKER) (test code = w/ Lab Draw: TESTED AT 153) [facility] [address] [facility], [address]: Concrete Building Assembler/Techni marissa ID = [id number] for Offu tt, [place]wney POCT-GLUCOSE [id number] 14:52:46 Test Item Value Reference Range Interpretation Comments POC-GLUCOSE METER 452 mg/dL 70-110 HH : TESTED A T [facility] [address] (BEAKER) (test code = NABOR Guardado [facility], 1538) [id number]: Concrete Building Assembler/Techni marissa ID = [id number] for Of futt, Tawney CALCIUM, [id number] 14:28:28 Test Item Value Reference Range Interpretation Comments CALCIUM IONIZED (BEAKER) (test 1.07 mmol/L 1.12-1.27 L code = 698) PH, BLOOD (BEAKER) (test code = 7.33 1810) BASIC METABOLIC [id number] 14:25:15 Test Item Value Reference Range Interpretation Comments SODIUM (BEAKER) 141 meq/L 136-145 (test code = 381) POTASSIUM 4.3 meq/L 3.5-5.1 (BEAKER) (test code = 379) CHLORIDE (BEAKER) 103 meq/L 98-107 (test code = 382) CO2 (BEAKER) 22 meq/L 22-29 (test code = 355) BLOOD UREA 77 mg/dL 7-21 H NITROGEN (BEAKER) (test code = 354) CREATININE 2.37 mg/dL 0.57-1.25 H (BEAKER) (test code = 358) GLUCOSE RANDOM 471 mg/dL 70-105 HH (BEAKER) (test code = 652) CALCIUM (BEAKER) 8.8 mg/dL 8.4-10.2 (test code = 697) EGFR (BEAKER) 31 Interpretatio n of eGFR (test code = mL/min/1.73 values Stage De scription 1092) sq m Result G1 Lucy l or high >=90 G2 Mildly decreased 60-89 G3a Mildl y to moderately 45-5 9 G3b Moderately to s everely 30-44 G4 Severl y decreased 15-29 G5 Kidney failure <15Reported eGF R is based on the CKD-EPI 2020 equation that d oes not use a race coefficientEsti mated GFR is not as accur ate as Creatinine Zuri warner in predicting glom erular filtration rate . Estimated GFR is not appl icable for dialysis patien ts Concrete Building Assembler ID - [id number] 14:22:52 Test Item Value Reference Range Interpretation Comments MAGNESIUM (BETRENT) (test code = 2.1 mg/dL 1.6-2.6 627) Concrete Building Assembler ID - MMPOCT-GLUCOSE [id number] 11:40:36 Test Item Value Reference Range Interpretation Comments POC-GLUCOSE METER 185 mg/dL 70-110 H : TESTED A T [facility] (BEAKER) (test code = NABOR Guard[place], 1538) [address]: Concrete Building Assembler/Techni marissa ID = [id number] for ROSANNE CHRISTIANSON XR CHEST 1 VIEW PORTABLE / [id number] 11:04:33 [facility] 1965 Sex: MXR CHEST 1 VIEW PORTABLE / BEDSIDEINDICATION: intubatedCOMPARISON: Prior day's examTECHNIQUE: Portable frontal view(s) of the chest. FINDINGS: Support Lines and Devices: Stable. The intra-aortic balloon pumptipoverlies the aortic knob. Lungs and pleura: Unchanged airspace and pleural opacities. Nopneumothorax identified.Heart and mediastinum: Stable contours. Stable surgical changes.Additional findings: Mild to moderate spondylosis and facet arthropathyare present within the spine. Chronic left fifth rib fracture.IMPRESSION:1. No significant change from prior exam.2. Hazy airspace opacities in the lower lungs bilaterally, which mayrepresent atelectasis, pneumonia, or pulmonary edema.Electronically Signed By: Keyur Johnson01/21/2023 11:06 CDTWorkstation Name: [id number] 10:14:48 Test Item Value Reference Range Interpretation Comments POC-GLUCOSE METER 115 mg/dL 70-110 H : TESTED A T [facility] 6720 ([facility]) (test code = [facility], 1538) 80[address]: Concrete Building Assembler/Techni marissa ID = [id number] for Of futt, Tawney POCT-GLUCOSE [id number] 09:43:55 Test Item Value Reference Range Interpretation Comments POC-GLUCOSE METER 92 mg/dL 70-110 : TESTED A T [facility] 6720 ([facility]) (test code = [facility], 1538) 808[address]: Concrete Building Assembler/Techni marissa ID = [id number] for Offu tt, Tawney CREATINE KINASE (CK)2023-01-21 08:09:32 Test Item Value Reference Range Interpretation Comments CREATINE KINASE TOTAL ([facility]) (test 5484 U/L 29-200 H code = 380) Concrete Building Assembler ID - MMOperator ID - MMLACTIC ACID, [id number] 07:50:37 Test Item Value Reference Range Interpretation Comments LACTATE BLOOD VENOUS 0.72 mmol/L 0.50-2.00 Specime n slightly (2) ([facility]) (test hemolyzed code = 2872) Concrete Building Assembler ID - MMPOCT-GLUCOSE [id number] 07:39:20 Test Item Value Reference Range Interpretation Comments POC-GLUCOSE METER 107 mg/dL 70-110 : TESTED A T [facility] 6720 ([facility]) (test code = [facility], 1538) 09882: Concrete Building Assembler/Techni marissa ID = [id number] for Of futt, Tawney POCT-GLUCOSE [id number] 06:31:11 Test Item Value Reference Range Interpretation Comments POC-GLUCOSE METER 110 mg/dL 70-110 : TESTED A T [facility] 6720 ([facility]) (test code = [facility], 1538) 28023: Concrete Building Assembler/Techni marissa ID = [id number] for YE (V), WEIPING OXYGEN SATURATION, [id number] 04:48:43 Test Item Value Reference Range Interpretation Comments O2 SATURATION (MEASURED) ([facility]) 80.3 % (test code = 1455) BLOOD GAS, [id number] 04:09:56 Test Item Value Reference Range Interpretation Comments PH ARTERIAL (BEAKER) (test code = 7.42 7.35-7.45 383) PCO2 ARTERIAL (BEAKER) (test code 42 mm Hg 35-45 = 384) PO2 ARTERIAL (BEAKER) (test code = 196 mm Hg 80-90 H 385) O2 SATURATION ARTERIAL (BEAKER) 99.3 % 96.0-97.0 H (test code = 386) HCO3 ARTERIAL (BEAKER) (test code 26 mmol/L 21-29 = 388) BASE EXCESS ARTERIAL (BEAKER) 1.8 mmol/L -2.0-3.0 (test code = 387) PATIENT TEMPERATURE (BEAKER) (test 39.0 code = 1818) FIO2 (BEAKER) (test code = 1819) 40.0 POCT-GLUCOSE [id number] 04:07:31 Test Item Value Reference Range Interpretation Comments POC-GLUCOSE METER 143 mg/dL 70-110 H : TESTED A T [facility] 6720 (BEAKER) (test code = NABOR Debby [facility], 1538) 16010: Concrete Building Assembler/Techni marissa ID = [id number] for YE (V)CHAU BASIC METABOLIC [id number] 04:05:26 Test Item Value Reference Range Interpretation Comments SODIUM (BEAKER) 145 meq/L 136-145 (test code = 381) POTASSIUM 3.9 meq/L 3.5-5.1 Specimen slight ly (BEAKER) (test hemolyzed code = 379) CHLORIDE (BEAKER) 107 meq/L 98-107 (test code = 382) CO2 (BEAKER) 21 meq/L 22-29 L (test code = 355) BLOOD UREA 74 mg/dL 7-21 H NITROGEN (BEAKER) (test code = 354) CREATININE 2.68 mg/dL 0.57-1.25 H Specimen slight ly (BEAKER) (test hemolyzed code = 358) GLUCOSE RANDOM 155 mg/dL 70-105 H (BEAKER) (test code = 652) CALCIUM (BEAKER) 9.2 mg/dL 8.4-10.2 (test code = 697) EGFR (BEAKER) 27 Interpretatio n of eGFR (test code = mL/min/1.73 values Stage De scription 1092) sq m Result G1 Lucy l or high >=90 G2 Mildly decreased 60-89 G3a Mildl y to moderately 45-5 9 G3b Moderately to s everely 30-44 G4 Severl y decreased 15-29 G5 Kidney failure <15Reported eGF R is based on the CKD-EPI 2020 equation that d oes not use a race coefficientEsti mated GFR is not as accur ate as Creatinine Zuri warner in predicting glom erular filtration rate . Estimated GFR is not appl icable for dialysis patien ts Concrete Building Assembler ID - [id number] 03:55:04 Test Item Value Reference Range Interpretation Comments PHOSPHORUS (BEAKER) 4.9 mg/dL 2.3-4.7 H Specimen slightly (test code = 604) hemolyzed Concrete Building Assembler ID - [id number] 03:55:03 Test Item Value Reference Range Interpretation Comments MAGNESIUM (BEAKER) 2.4 mg/dL 1.6-2.6 Specimen slightly (test code = 627) hemolyzed Concrete Building Assembler ID - [id number] 03:39:35 Test Item Value Reference Range Interpretation Comments PARTIAL THROMBOPLASTIN TIME 85.5 seconds 22.5-36.0 H (BEAKER) (test code = 760) CBC (HEMOGRAM ONLY)2023-01-21 03:33:56 Test Item Value Reference Range Interpretation Comments WHITE BLOOD CELL COUNT (BEAKER) 15.6 K/ L 3.5-10.5 H (test code = 775) RED BLOOD CELL COUNT (BEAKER) 3.01 M/ L 4.63-6.08 L (test code = 761) HEMOGLOBIN (BEAKER) (test code = 8.3 GM/DL 13.7-17.5 L 410) HEMATOCRIT (BEAKER) (test code = 26.5 % 40.1-51.0 L 411) MEAN CORPUSCULAR VOLUME (BEAKER) 88 fL 79-92 (test code = 753) MEAN CORPUSCULAR HEMOGLOBIN 27.6 pg 25.7-32.2 (BEAKER) (test code = 751) MEAN CORPUSCULAR HEMOGLOBIN CONC 31.3 GM/DL 32.3-36.5 L (BEAKER) (test code = 752) RED CELL DISTRIBUTION WIDTH 13.7 % 11.6-14.4 (BEAKER) (test code = 412) PLATELET COUNT (BEAKER) (test 305 K/CU MM 150-450 code = 756) MEAN PLATELET VOLUME (BEAKER) 9.7 fL 9.4-12.4 (test code = 754) NUCLEATED RED BLOOD CELLS 0 /100 WBC 0-0 (BEAKER) (test code = 413) POCT-GLUCOSE [id number] 03:00:05 Test Item Value Reference Range Interpretation Comments POC-GLUCOSE METER 155 mg/dL 70-110 H : TESTED A T [facility] 6720 (BEAKER) (test code = [facility], [facility]8) 95[address]: Concrete Building Assembler/Techni marissa ID = [id number] for YE (V), WEIPING POCT-GLUCOSE [id number] 01:46:08 Test Item Value Reference Range Interpretation Comments POC-GLUCOSE METER 187 mg/dL 70-110 H : TESTED A T [facility] 6720 (BEAKER) (test code = [facility], [facility]8) 25380: Concrete Building Assembler/Techni marissa ID = [id number] for YE (V), WEIPING POCT-GLUCOSE [id number] 00:09:39 Test Item Value Reference Range Interpretation Comments POC-GLUCOSE METER 186 mg/dL 70-110 H : TESTED A T [facility] 6720 (BEAKER) (test code = [facility], 1538) 828[address]: Concrete Building Assembler/Techni marissa ID = [id number] for YE (V), WEIPING POCT-GLUCOSE [id number] 22:33:59 Test Item Value Reference Range Interpretation Comments POC-GLUCOSE METER 181 mg/dL 70-110 H : TESTED A T [facility] 6720 (BEAKER) (test code = [facility], 1538) 648[address]: Concrete Building Assembler/Techni marissa ID = [id number] for YE (V), WEIPING [id number] 20:45:08 Test Item Value Reference Range Interpretation Comments PARTIAL THROMBOPLASTIN TIME 74.8 seconds 22.5-36.0 H (BEAKER) (test code = 760) POCT-GLUCOSE [id number] 19:56:20 Test Item Value Reference Range Interpretation Comments POC-GLUCOSE METER 169 mg/dL 70-110 H : TESTED A T [facility] 6720 (BEAKER) (test code = [facility], 1538) 16815: Concrete Building Assembler/Techni marissa ID = [id number] for YE (V), WEIPING POCT-GLUCOSE [id number] 19:08:49 Test Item Value Reference Range Interpretation Comments POC-GLUCOSE METER 75 mg/dL 70-110 : TESTED A T [facility] 6720 (BEAKER) (test code = [facility], 1538) 32256: Concrete Building Assembler/Techni marissa ID = [id number] for Offu tt, Tawney POCT-GLUCOSE [id number] 18:20:12 Test Item Value Reference Range Interpretation Comments POC-GLUCOSE METER 120 mg/dL 70-110 H : TESTED A T [facility] 6720 (BEAKER) (test code = [facility], 1538) 03610: Concrete Building Assembler/Techni marissa ID = [id number] for Of futt, Tawney POCT-GLUCOSE [id number] 17:25:16 Test Item Value Reference Range Interpretation Comments POC-GLUCOSE METER 203 mg/dL 70-110 H : TESTED A T [facility] 6720 (BEAKER) (test code = [facility], 1538) 42283: Concrete Building Assembler/Techni marissa ID = [id number] for Of futt, Tawney [id number] 17:15:55 Test Item Value Reference Range Interpretation Comments MAGNESIUM (BEAKER) (test code = 2.3 mg/dL 1.6-2.6 627) Concrete Building Assembler ID - ADMINBASIC METABOLIC [id number] 17:15:54 Test Item Value Reference Range Interpretation Comments SODIUM (BEAKER) 143 meq/L 136-145 (test code = 381) POTASSIUM 4.6 meq/L 3.5-5.1 (BEAKER) (test code = 379) CHLORIDE (BEAKER) 105 meq/L 98-107 (test code = 382) CO2 (BEAKER) 24 meq/L 22-29 (test code = 355) BLOOD UREA 67 mg/dL 7-21 H NITROGEN (BEAKER) (test code = 354) CREATININE 2.48 mg/dL 0.57-1.25 H (BEAKER) (test code = 358) GLUCOSE RANDOM 134 mg/dL 70-105 H (BEAKER) (test code = 652) CALCIUM (BEAKER) 8.8 mg/dL 8.4-10.2 (test code = 697) EGFR (BEAKER) 30 Interpretatio n of eGFR (test code = mL/min/1.73 values Stage De scription 1092) sq m Result G1 Lucy l or high >=90 G2 Mildly decreased 60-89 G3a Mildl y to moderately 45-5 9 G3b Moderately to s everely 30-44 G4 Severl y decreased 15-29 G5 Kidney failure <15Reported eGF R is based on the CKD-EPI 2020 equation that d oes not use a race coefficientEsti mated GFR is not as accur ate as Creatinine Zuri hylton in predicting glom erular filtration rate . Estimated GFR is not appl icable for dialysis patien ts Concrete Building Assembler ID - ADMINCALCIUM, [id number] 16:39:11 Test Item Value Reference Range Interpretation Comments CALCIUM IONIZED (BEAKER) (test 1.03 mmol/L 1.12-1.27 L code = 698) PH, BLOOD (BEAKER) (test code = 7.39 1810) POCT-GLUCOSE [id number] 16:34:44 Test Item Value Reference Range Interpretation Comments POC-GLUCOSE METER 156 mg/dL 70-110 H : TESTED A T [facility] 6720 (BEAKER) (test code = NABOR Guardado [facility], 1538) 50246: Concrete Building Assembler/Techni marissa ID = [id number] for BE LL, BEAULA [id number] 14:51:15 Test Item Value Reference Range Interpretation Comments PROCALCITONIN (BEAKER) (test code 1.39 ng/mL <0.05 H = 3036) SEPSIS RISK (ng/mL)Low: 0.05-0.50Intermediate: 0.51-2.00High: >=2.01LACTIC ACID, [id number] 13:53:22 Test Item Value Reference Range Interpretation Comments LACTATE BLOOD VENOUS 0.78 mmol/L 0.50-2.00 Specime n slightly (2) (BEAKER) (test hemolyzed code = 2872) Concrete Building Assembler ID - ADMINPOCT-GLUCOSE [id number] 13:52:39 Test Item Value Reference Range Interpretation Comments POC-GLUCOSE METER 140 mg/dL 70-110 H : TESTED A T [facility] 6720 (BEAKER) (test code = [place], 1538) 336[address]: Concrete Building Assembler/Techni marissa ID = [id number] for Of Khalif holguin [id number] 13:48:22 Test Item Value Reference Range Interpretation Comments PARTIAL THROMBOPLASTIN TIME 56.9 seconds 22.5-36.0 H (BEAKER) (test code = 760) BASIC METABOLIC [id number] 13:44:44 Test Item Value Reference Range Interpretation Comments SODIUM (BEAKER) 143 meq/L 136-145 (test code = 381) POTASSIUM 3.6 meq/L 3.5-5.1 (BEAKER) (test code = 379) CHLORIDE (BEAKER) 105 meq/L 98-107 (test code = 382) CO2 (BEAKER) 23 meq/L 22-29 (test code = 355) BLOOD UREA 67 mg/dL 7-21 H NITROGEN (BEAKER) (test code = 354) CREATININE 2.42 mg/dL 0.57-1.25 H (BEAKER) (test code = 358) GLUCOSE RANDOM 127 mg/dL 70-105 H (BEAKER) (test code = 652) CALCIUM (BEAKER) 8.9 mg/dL 8.4-10.2 (test code = 697) EGFR (BEAKER) 30 Interpretatio n of eGFR (test code = mL/min/1.73 values Stage De scription 1092) sq m Result G1 Lucy l or high >=90 G2 Mildly decreased 60-89 G3a Mildl y to moderately 45-5 9 G3b Moderately to s everely 30-44 G4 Severl y decreased 15-29 G5 Kidney failure <15Reported eGF R is based on the CKD-EPI 2021 equation that d oes not use a race coefficientEsti mated GFR is not as accur ate as Creatinine Zuri hylton in predicting glom erular filtration rate . Estimated GFR is not appl icable for dialysis patien ts Concrete Building Assembler ID - ADMINXR CHEST 1 VIEW PORTABLE / [id number] 12:31:21 [facility] 1965 Sex: MXR CHEST 1 VIEW PORTABLE / BEDSIDEINDICATION: intubatedCOMPARISON: Prior day's examTECHNIQUE: Portable frontal view(s) of the chest. FINDINGS: Support Lines and Devices: The nasogastric tube was removed. Thefeedingtube courses into the stomach and outside the [id number]-nz-swqn. Otherwise,the life support linesand tubes appear unchanged. The intra-aorticballoon pump tip overlies the inferior aspect of the aortic knob. Lungs and pleura: Unchanged airspace and pleural opacities. Nopneumothorax identified.Heartand mediastinum: Stable contours. Stable surgical changes.Additional findings: None.IMPRESSION:1. The nasogastric tube was removed. The feeding tube courses into thestomach and outside the hvqlw-vf-ikre .2. Hazy airspace opacities in the lower lungs bilaterally, which mayrepresent atelectasis, pneumonia, or pulmonary edema.Electronically Signed By: Keyur Johnson01/20/2023 12:33 CDTWorkstation Name: [id number] GAS, ARTERIAL 2023-01-20 12:19:21 Test Item Value Reference Range Interpretation Comments PH ARTERIAL (BEAKER) (test code = 7.40 7.35-7.45 383) PCO2 ARTERIAL (BEAKER) (test code 45 mm Hg 35-45 = 384) PO2 ARTERIAL (BEAKER) (test code = 156 mm Hg 80-90 H 385) O2 SATURATION ARTERIAL (BEAKER) 98.9 % 96.0-97.0 H (test code = 386) HCO3 ARTERIAL (BEAKER) (test code 27 mmol/L 21-29 = 388) BASE EXCESS ARTERIAL (BEAKER) 2.0 mmol/L -2.0-3.0 (test code = 387) PATIENT TEMPERATURE (BEAKER) (test 38.5 code = 1818) FIO2 (BEAKER) (test code = 1819) 40.0 POCT-GLUCOSE [id number] 12:14:18 Test Item Value Reference Range Interpretation Comments POC-GLUCOSE METER 144 mg/dL 70-110 H : TESTED A T [facility] 6720 (BEAKER) (test code = [place], 1538) [address]: Concrete Building Assembler/Techni marissa ID = [id number] for BE LL, BEAULA URINALYSIS [id number] 11:19:21 Test Item Value Reference Range Interpretation Comments RBC UA (BEAKER) (test code = 519) 0 /HPF WBC UA (BEAKER) (test code = 520) 0 /HPF MUCUS (BEAKER) (test code = 1574) Rare HYALINE CASTS (BEAKER) (test code = 24 /LPF 514) GRANULAR CASTS (BEAKER) (test code = 53 /LPF 515) Concrete Building Assembler ID - techURINALYSIS WITH MICROSCOPIC IF [id number] 11:16:22 Test Item Value Reference Range Interpretation Comments COLOR (BEAKER) (test code = 470) Light Yellow CLARITY (BEAKER) (test code = Hazy 469) SPECIFIC GRAVITY UA (BEAKER) 1.011 1.001-1.035 (test code = 468) PH UA (BEAKER) (test code = 467) 6.0 5.0-8.0 PROTEIN UA (BEAKER) (test code = 50 mg/dL Negative A 464) GLUCOSE UA (BEAKER) (test code = Negative Negative 365) KETONES UA (BEAKER) (test code = Negative Negative 371) BILIRUBIN UA (BEAKER) (test code Negative Negative = 462) BLOOD UA (BEAKER) (test code = Large Negative A 461) NITRITE UA (BEAKER) (test code = Negative Negative 465) LEUKOCYTE ESTERASE UA (BEAKER) Negative Negative (test code = 466) UROBILINOGEN UA (BEAKER) (test 0.2 0.2-1.0 code = 463) SOURCE(BEAKER) (test code = 2795) Concrete Building Assembler ID - [auto]Concrete Building Assembler ID - techPOCT-GLUCOSE [id number] 11:16:06 Test Item Value Reference Range Interpretation Comments POC-GLUCOSE METER 143 mg/dL 70-110 H : TESTED A T [facility] 6720 (BEAKER) (test code = [facility], 1538) 40520: Concrete Building Assembler/Techni marissa ID = [id number] for Of futt, Tawney POCT-GLUCOSE [id number] 09:47:33 Test Item Value Reference Range Interpretation Comments POC-GLUCOSE METER 172 mg/dL 70-110 H : TESTED A T [facility] 6720 (BEAKER) (test code = [facility], 1538) 99653: Concrete Building Assembler/Techni marissa ID = [id number] for Of futt, Tawney POCT-GLUCOSE [id number] 08:44:31 Test Item Value Reference Range Interpretation Comments POC-GLUCOSE METER 173 mg/dL 70-110 H : TESTED A T [facility] 6720 (BEAKER) (test code = [facility], 1538) 34897: Concrete Building Assembler/Techni marissa ID = [id number] for Of futt, Tawney POCT-GLUCOSE [id number] 07:40:52 Test Item Value Reference Range Interpretation Comments POC-GLUCOSE METER 167 mg/dL 70-110 H : TESTED A T [facility] 6720 (BEAKER) (test code = [facility], 1538) 94483: Concrete Building Assembler/Techni marissa ID = [id number] for BE LL, BEAULA POCT-GLUCOSE [id number] 06:39:04 Test Item Value Reference Range Interpretation Comments POC-GLUCOSE METER 166 mg/dL 70-110 H : TESTED A T [facility] 6720 (BEAKER) (test code = [facility], [facility]8) 27605: Concrete Building Assembler/Techni marissa ID = [id number] for YE (V), WEIPING POCT-GLUCOSE [id number] 05:32:07 Test Item Value Reference Range Interpretation Comments POC-GLUCOSE METER 160 mg/dL 70-110 H : TESTED A T [facility] 6720 (BEAKER) (test code = [facility], 1538) 22665: Concrete Building Assembler/Techni marissa ID = [id number] for YE (V), WEIPING POCT-GLUCOSE [id number] 05:29:14 Test Item Value Reference Range Interpretation Comments POC-GLUCOSE METER 159 mg/dL 70-110 H : TESTED A T [facility] 6720 (BEAKER) (test code = [facility], 1538) 36570: Concrete Building Assembler/Techni marissa ID = [id number] for MORENA (V)CHAU [id number] 05:16:17 Test Item Value Reference Range Interpretation Comments MAGNESIUM (BEAKER) (test code = 2.4 mg/dL 1.6-2.6 627) Concrete Building Assembler ID - EMBASIC METABOLIC [id number] 05:16:16 Test Item Value Reference Range Interpretation Comments SODIUM (BEAKER) 143 meq/L 136-145 (test code = 381) POTASSIUM 4.0 meq/L 3.5-5.1 (BEAKER) (test code = 379) CHLORIDE (BEAKER) 104 meq/L 98-107 (test code = 382) CO2 (BEAKER) 23 meq/L 22-29 (test code = 355) BLOOD UREA 63 mg/dL 7-21 H NITROGEN (BEAKER) (test code = 354) CREATININE 2.45 mg/dL 0.57-1.25 H (BEAKER) (test code = 358) GLUCOSE RANDOM 152 mg/dL 70-105 H (BEAKER) (test code = 652) CALCIUM (BEAKER) 9.3 mg/dL 8.4-10.2 (test code = 697) EGFR (BEAKER) 30 Interpretatio n of eGFR (test code = mL/min/1.73 values Stage De scription 1092) sq m Result G1 Lucy l or high >=90 G2 Mildly decreased 60-89 G3a Mildl y to moderately 45-5 9 G3b Moderately to s everely 30-44 G4 Severl y decreased 15-29 G5 Kidney failure <15Reported eGF R is based on the CKD-EPI 2021 equation that d oes not use a race coefficientEsti mated GFR is not as accur ate as Creatinine Zuri warner in predicting glom erular filtration rate . Estimated GFR is not appl icable for dialysis patien ts Concrete Building Assembler ID - [id number] 05:16:16 Test Item Value Reference Range Interpretation Comments PHOSPHORUS (BEAKER) (test code = 5.4 mg/dL 2.3-4.7 H 604) Concrete Building Assembler ID - [id number] 04:53:49 Test Item Value Reference Range Interpretation Comments PARTIAL THROMBOPLASTIN TIME 59.5 seconds 22.5-36.0 H (BEAKER) (test code = 760) CBC (HEMOGRAM ONLY)2023-01-20 04:48:19 Test Item Value Reference Range Interpretation Comments WHITE BLOOD CELL COUNT (BEAKER) 14.6 K/ L 3.5-10.5 H (test code = 775) RED BLOOD CELL COUNT (BEAKER) 3.02 M/ L 4.63-6.08 L (test code = 761) HEMOGLOBIN (BEAKER) (test code = 8.4 GM/DL 13.7-17.5 L 410) HEMATOCRIT (BEAKER) (test code = 26.4 % 40.1-51.0 L 411) MEAN CORPUSCULAR VOLUME (BEAKER) 87 fL 79-92 (test code = 753) MEAN CORPUSCULAR HEMOGLOBIN 27.8 pg 25.7-32.2 (BEAKER) (test code = 751) MEAN CORPUSCULAR HEMOGLOBIN CONC 31.8 GM/DL 32.3-36.5 L (BEAKER) (test code = 752) RED CELL DISTRIBUTION WIDTH 13.4 % 11.6-14.4 (BEAKER) (test code = 412) PLATELET COUNT (BEAKER) (test 256 K/CU MM 150-450 code = 756) MEAN PLATELET VOLUME (BEAKER) 9.6 fL 9.4-12.4 (test code = 754) NUCLEATED RED BLOOD CELLS 0 /100 WBC 0-0 (BEAKER) (test code = 413) BLOOD GAS, [id number] 04:37:07 Test Item Value Reference Range Interpretation Comments PH ARTERIAL (BEAKER) (test code = 7.39 7.35-7.45 383) PCO2 ARTERIAL (BEAKER) (test code 44 mm Hg 35-45 = 384) PO2 ARTERIAL (BEAKER) (test code = 135 mm Hg 80-90 H 385) O2 SATURATION ARTERIAL (BEAKER) 98.5 % 96.0-97.0 H (test code = 386) HCO3 ARTERIAL (BEAKER) (test code 26 mmol/L 21-29 = 388) BASE EXCESS ARTERIAL (BEAKER) 1.1 mmol/L -2.0-3.0 (test code = 387) PATIENT TEMPERATURE (BEAKER) (test 38.5 code = 1818) FIO2 (BEAKER) (test code = 1819) 40.0 OXYGEN SATURATION, [id number] 04:36:16 Test Item Value Reference Range Interpretation Comments O2 SATURATION (MEASURED) (ADAMARISAKER) 79.1 % (test code = 1455) POCT-GLUCOSE [id number] 03:46:04 Test Item Value Reference Range Interpretation Comments POC-GLUCOSE METER 88 mg/dL 70-110 : TESTED A T [facility] 6720 (SUNG) (test code = [facility], 1538) [id number]: Concrete Building Assembler/Techni marissa ID = [id number] for YE ( V), WEIPING POCT-GLUCOSE [id number] 02:37:49 Test Item Value Reference Range Interpretation Comments POC-GLUCOSE METER 101 mg/dL 70-110 : TESTED A T [facility] 6720 (SUNG) (test code = [facility], 1538) [id number]: Concrete Building Assembler/Techni marissa ID = [id number] for YE (V), WEIPING POCT-GLUCOSE [id number] 00:11:01 Test Item Value Reference Range Interpretation Comments POC-GLUCOSE METER 132 mg/dL 70-110 H : TESTED A T [facility] 6720 (SUNG) (test code = [facility], 1538) [id number]: Concrete Building Assembler/Techni marissa ID = [id number] for YE (V), WEIPING XR ABDOMEN/KUB 1 VIEW [id number] 22:09:21 [facility]IG[facility] : 1965 Sex: MTECHNIQUE: XR ABDOMEN/KUB 1 VIEW PORTABLEINDICATION: post adjustment of corpak.COMPARISON: 01/31/2023 at 10:39 AMFINDINGS:Esophagogastric tube tip projects over the gastric fundus; sideholebelow the level of the GE junction. No specific evidence for bowelobstruction. Supine radiographs are insensitive for detection of freeintraperitoneal air.IMPRESSION:Esophagogastric tube tip projects over the gastric fundus with side holebelow the level of the GE junction.Electronically Signed By: Glenn Felton01/19/2023 22:11 CDTWorkstation Name: [id number] POCT-GLUCOSE [id number] 21:57:35 Test Item Value Reference Range Interpretation Comments POC-GLUCOSE METER 139 mg/dL 70-110 H : TESTED A T [facility] 6720 (BEAKER) (test code = [place], 1538) [address]: Concrete Building Assembler/Techni marissa ID = [id number] for YE (V), WEIPING [id number] 20:36:59 Test Item Value Reference Range Interpretation Comments MAGNESIUM (BEAKER) (test code = 2.5 mg/dL 1.6-2.6 627) Concrete Building Assembler ID - BSBASIC METABOLIC [id number] 20:36:58 Test Item Value Reference Range Interpretation Comments SODIUM (BEAKER) 143 meq/L 136-145 (test code = 381) POTASSIUM 3.9 meq/L 3.5-5.1 (BEAKER) (test code = 379) CHLORIDE (BEAKER) 105 meq/L 98-107 (test code = 382) CO2 (BEAKER) 23 meq/L 22-29 (test code = 355) BLOOD UREA 66 mg/dL 7-21 H NITROGEN (BEAKER) (test code = 354) CREATININE 2.43 mg/dL 0.57-1.25 H (BEAKER) (test code = 358) GLUCOSE RANDOM 144 mg/dL 70-105 H (BEAKER) (test code = 652) CALCIUM (BEAKER) 9.0 mg/dL 8.4-10.2 (test code = 697) EGFR (BEAKER) 30 Interpretatio n of eGFR (test code = mL/min/1.73 values Stage D escription 1092) sq m Result G1 Lucy l or high >=90 G2 Mildly decreased 60-89 G3a Mildl y to moderately 45-5 9 G3b Moderately to s everely 30-44 G4 Severl y decreased 15-29 G5 Kidney failure <15Reported eGF R is based on the CKD-EPI 2020 equation that d oes not use a race coefficientEsti mated GFR is not as accur ate as Creatinine Zuri warner in predicting glom erular filtration rate . Estimated GFR is not appl icable for dialysis patien ts Concrete Building Assembler ID - BSPOCT-GLUCOSE [id number] 20:35:55 Test Item Value Reference Range Interpretation Comments POC-GLUCOSE METER 146 mg/dL 70-110 H : TESTED A T [facility] 6720 (BEAKER) (test code = [place], 1538) [address]: Concrete Building Assembler/Techni marissa ID = [id number] for YE (V), CHAU XR ABDOMEN/KUB 1 VIEW [id number] 19:53:31 [facility] 1965 Sex: MTECHNIQUE: XR ABDOMEN/KUB 1 VIEW PORTABLEINDICATION: corpak placement.COMPARISON: 01/19/1943 at 3:15 PMFINDINGS:Feeding tube tip projected over the distal body of the stomach. Catheterprojects over the midline of the pelvis. No specific evidence for bowelobstruction. Supine radiographs are insensitive for detection of freeintraperitoneal air.IMPRESSION:Feeding tube tip projects over the distal body of the stomach.Electronically Signed By: Glenn Felton01/19/2023 19:55 CDTWorkstation Name: [id number] ABDOMEN/KUB 1 VIEW [id number] 19:28:57[facility] : 1965 Sex: MTECHNIQUE: XR ABDOMEN/KUB 1 VIEW PORTABLEINDICATION: NG tube placement.COMPARISON: 01/19/2023 3:06 PMFINDINGS:Feeding tube tip projects over the gastric fundus with side hole belowthe expected level of the GE junction. Lower pelvis is incompletelyincluded on this examination. No specific evidence for bowelob struction. Supine radiographs are insensitive for detection of freeintraperitoneal air.IMPRESSION:1.Esophagogastric tube tip projects over the gastric fundus with sidehole below the expected level of the GE junction.Electronically Signed By: Glenn Felton01/19/2023 19:31 CDTWorkstation Name: [id number] 18:01:31 Test Item Value Reference Range Interpretation Comments POC-GLUCOSE METER 155 mg/dL 70-110 H : TESTED A T [facility] 6720 ([facility]) (test code = [facility], 1538) 117[address]: Concrete Building Assembler/Techni marissa ID = [id number] for Jaja Flores POCT-GLUCOSE [id number] 16:41:40 Test Item Value Reference Range Interpretation Comments POC-GLUCOSE METER 182 mg/dL 70-110 H : TESTED A T [facility] 6720 ([facility]) (test code = [facility], 1538) 59794: Concrete Building Assembler/Techni marissa ID = [id number] for Em Cordero PERIPHERAL BLOOD SMEAR - PATHOLOGIST [id number] 16:05:10 Test Item Value Reference Range Interpretation Comments PERIPHERAL SMR REVIEW Cell counts confirmed. (BEAKER) (test code = Normochromic normocytic 2640) anemia with no significant increase in schistocytes. [id number] Rodo Booker (SUNG) (test code = Tung 6229) POCT-GLUCOSE [id number] 15:40:51 Test Item Value Reference Range Interpretation Comments POC-GLUCOSE METER 196 mg/dL 70-110 H : TESTED A T [facility] 6720 (SUNG) (test code = NABOR Guardado [facility], 1538) 14[address]: Concrete Building Assembler/Techni marissa ID = [id number] for Jaja Flores POCT-GLUCOSE [id number] 13:25:06 Test Item Value Reference Range Interpretation Comments POC-GLUCOSE METER 234 mg/dL 70-110 H : TESTED A T [facility] 6720 (SUNG) (test code = NABOR Guardado [facility], 1538) 19778: Concrete Building Assembler/Techni marissa ID = [id number] for Jaja Flores XR ABDOMEN/KUB 1 VIEW [id number] 12:55:01 [facility] 1965 Sex: MINDICATION: abd distensionCOMPARISON: 01/18/2023 chest x-ray and 01/17/2023 abdomen x-rayTECHNIQUE: Frontal views of the chest and abdomen.FINDINGS:Lines, tubes, and devices: Stable. The intra-aortic balloon pump tipoverlies the aortopulmonary window.Osseous structures: No acute abnormality.CHEST:Lungs and pleura: Unchanged airspace and pleural opacities. Nopneumothorax identified.Heart and mediastinum: Stablecontours. Stable surgical changes.Abdomen:The bowel gas pattern is nonobstructive. Evaluation for free air islimited by portable supine technique. Within these limitations, no freeair is identified. Mild spondylosis and facet arthropathy are present within the spine.IMPRESSION:1. Hazy airspace opacities in the lower lungs bilaterally, which mayrepresent atelectasis, pneumonia, or pulmonary edema.2. Nonobstructive bowel gas pattern. Electronically Signed By: Keyur Johnson01/19/2023 12:57 CDTWorkstation Name: [id number] CHEST 1 VIEW PORTABLE / [id number] 12:55:01 [facility] : 1965 Sex: MINDICATION: abd distensionCOMPARISON: 01/18/2023 chest x-ray and 01/17/2023 abdomen x-rayTECHNIQUE: Frontal views of the chest and abdomen.FINDINGS:Lines, tubes, and devices: Stable. The intra-aortic balloon pump tipoverlies the aortopulmonary window.Osseous structures: No acute abnormality.CHEST:Lungs and pleura: Unchanged airspace and pleural opacities. Nopneumothorax identified.Heart and mediastinum: Stablecontours. Stable surgical changes.Abdomen:The bowel gas pattern is nonobstructive. Evaluation for free air islimited by portable supine technique. Within these limitations, no freeair is identified. Mild spondylosis and facet arthropathy are present within the spine.IMPRESSION:1. Hazy airspace opacities in the lower lungs bilaterally, which mayrepresent atelectasis, pneumonia, or pulmonary edema.2. Nonobstructive bowel gas pattern. Electronically Signed By: Keyur Johnson01/19/2023 12:57 CDTWorkstation Name: [id number] METABOLIC [id number] 12:40:18 Test Item Value Reference Range Interpretation Comments SODIUM (BEAKER) 139 meq/L 136-145 (test code = 381) POTASSIUM 3.8 meq/L 3.5-5.1 (BEAKER) (test code = 379) CHLORIDE (BEAKER) 103 meq/L 98-107 (test code = 382) CO2 (BEAKER) 22 meq/L 22-29 (test code = 355) BLOOD UREA 63 mg/dL 7-21 H NITROGEN (BEAKER) (test code = 354) CREATININE 2.78 mg/dL 0.57-1.25 H (BEAKER) (test code = 358) GLUCOSE RANDOM 258 mg/dL 70-105 H (BEAKER) (test code = 652) CALCIUM (BEAKER) 8.9 mg/dL 8.4-10.2 (test code = 697) EGFR (BEAKER) 26 Interpretatio n of eGFR (test code = mL/min/1.73 values Stage De scription 1092) sq m Result G1 Lucy l or high >=90 G2 Mildly decreased 60-89 G3a Mildl y to moderately 45-5 9 G3b Moderately to s everely 30-44 G4 Severl y decreased 15-29 G5 Kidney failure <15Reported eGF R is based on the CKD-EPI 2020 equation that d oes not use a race coefficientEsti mated GFR is not as accur ate as Creatinine Zuri warner in predicting glom erular filtration rate . Estimated GFR is not appl icable for dialysis patien ts Concrete Building Assembler ID - [id number] 12:39:11 Test Item Value Reference Range Interpretation Comments PHOSPHORUS (BEAKER) (test code = 5.6 mg/dL 2.3-4.7 H 604) Concrete Building Assembler ID - [id number] 12:39:10 Test Item Value Reference Range Interpretation Comments MAGNESIUM (BEAKER) (test code = 2.5 mg/dL 1.6-2.6 627) Concrete Building Assembler ID - AAHAMIDCALCIUM, [id number] 12:25:40 Test Item Value Reference Range Interpretation Comments CALCIUM IONIZED (BEAKER) (test 1.11 mmol/L 1.12-1.27 L code = 698) PH, BLOOD (BEAKER) (test code = 7.39 1810) POCT-GLUCOSE [id number] 12:15:50 Test Item Value Reference Range Interpretation Comments POC-GLUCOSE METER 260 mg/dL 70-110 H : TESTED A T [facility] 6720 (BEAKER) (test code = [facility], 1538) 687[address]: Concrete Building Assembler/Techni marissa ID = [id number] for Jaja Flores MRSA [id number] 11:29:28 Test Item Value Reference Range Interpretation Comments CULTURE (BEAKER) (test code No MRSA isolated = 1095) POCT-GLUCOSE [id number] 11:18:27 Test Item Value Reference Range Interpretation Comments POC-GLUCOSE METER 294 mg/dL 70-110 H : TESTED A T [facility] 6720 (BEAKER) (test code = [facility] Debby [facility], 1538) 32128: Concrete Building Assembler/Techni marissa ID = [id number] for Em Cordero SPUTUM CULTURE + GRAM [id number] 10:34:07 Test Item Value Reference Range Interpretation Comments CULTURE (BEAKER) (test code No growth = 1095) GRAM STAIN RESULT (BEAKER) 2+ WBCs (test code = 1123) GRAM STAIN RESULT (BEAKER) No organisms seen (test code = 55576) POCT-GLUCOSE [id number] 10:23:09 Test Item Value Reference Range Interpretation Comments POC-GLUCOSE METER 317 mg/dL 70-110 H : TESTED A T [facility] 6720 (BEAKER) (test code = [facility], 1538) 85847: Concrete Building Assembler/Techni marissa ID = [id number] for Jaja Flores US RENAL [id number] 09:38:04 [facility] : 1965 Sex: M RENAL COMPLETECLINICAL HISTORY: ELEVATED CREATININECOMPARISON: None.TECHNIQUE: Real time grayscale andcolor Doppler imaging of the kidneysand urinary bladder was performed.FINDINGS:Right kidney:Length =10.9 x 5.6 x 3.8 cm cmCortical thickness: NormalEchogenicity: NormalCollecting system: No hydronephrosisOther findings: NoneLeft kidney:Length = 10.6 x 5.5 x 6.2 cmCortical thickness: NormalEchogenicity: NormalCollecting system: No hydronephrosisOther findings: NoneUrinary bladder: Decompressed with aFoley catheterIMPRESSION:Normal renal ultrasound. No hydronephrosis.Electronically Signed By: Josafat Agustin01/19/2023 09:40 CDTWorkstation Name: [id number] 08:01:32 Test Item Value Reference Range Interpretation Comments POC-GLUCOSE METER 286 mg/dL 70-110 H : TESTED A T [facility] 6720 ([facility]) (test code = [place], 1538) [address]: Concrete Building Assembler/Techni marissa ID = [id number] for Farzana Em mccoy XR CHEST 1 VIEW PORTABLE / [id number] 07:58:38 [facility] 1965 Sex: MXR CHEST 1 VIEW PORTABLE / BEDSIDEINDICATION: intubatedCOMPARISON: Prior day's examTECHNIQUE: Portable frontal view(s) of the chest. FINDINGS: Support Lines and Devices: Stable. Lungs and pleura: Unchanged airspace and pleural opacities. Nopneumothorax identified.Heart and mediastinum: Stable contours. Stable surgical changes.Additional findings: None.IMPRESSION:1. No significant change from prior exam.2. Bilateral airspace and interstitial opacities, which may representatelectasis, pneumonia or pulmonaryedema.Electronically Signed By: Keyur Johnson01/19/2023 08:00 CDTWorkstation Name: [id number] METER 2023-01-19 06:52:22 Test Item Value Reference Range Interpretation Comments POC-GLUCOSE METER 128 mg/dL 70-110 H : TESTED A T [facility] 6720 (BEAKER) (test code = [place], 1538) 075[address]: Concrete Building Assembler/Techni marissa ID = [id number] for YOSI URENA (CELLAVISION MANUAL DIFF)2023-01-19 06:21:31 Test Item Value Reference Range Interpretation Comments NEUTROPHILS - REL 75 % (CELLAVISION)(BEAKER) (test code = 2816) LYMPHOCYTES - REL 10 % (CELLAVISION)(BEAKER) (test code = 2817) MONOCYTES - REL 11 % (CELLAVISION)(BEAKER) (test code = 2818) EOSINOPHILS - REL 3 % (CELLAVISION)(BEAKER) (test code = 2819) MYELOCYTES - REL 1 % 0-0 H (CELLAVISION)(BEAKER) (test code = 2822) NEUTROPHILS - ABS 9.90 K/ul 1.78-5.38 H (CELLAVISION)(BEAKER) (test code = 2830) LYMPHOCYTES - ABS 1.32 K/ul 1.32-3.57 (CELLAVISION)(BEAKER) (test code = 2831) MONOCYTES - ABS 1.45 K/uL 0.30-0.82 H (CELLAVISION)(BEAKER) (test code = 2832) EOSINOPHILS - ABS 0.40 K/uL 0.04-0.54 (CELLAVISION)(BEAKER) (test code = 2834) MYELOCYTES-ABS 0.13 K/uL 0.00-0.00 H (CELLAVISION)(BEAKER) (test code = 2837) TOTAL COUNTED (BEAKER) (test code 100 = 1351) PLT MORPHOLOGY (BEAKER) (test Normal code = 486) SMUDGE CELLS (BEAKER) (test code Present = 1371) POLYCHROMATOPHILLIC RBCS(BEAKER) 2+ moderate (test code = 478) ARTIFACT (CELLAVISION)(BEAKER) Present (test code = 3432) PLATELET CONCENTRATION Adequate (CELLAVISION)(BEAKER) (test code = 3438) Concrete Building Assembler ID - Yulissa comments: Slide comments:CBC W/PLT COUNT & AUTO [id number] 06:21:30 Test Item Value Reference Range Interpretation Comments WHITE BLOOD CELL COUNT (BEAKER) 13.2 K/ L 3.5-10.5 H (test code = 775) RED BLOOD CELL COUNT (BEAKER) 2.75 M/ L 4.63-6.08 L (test code = 761) HEMOGLOBIN (BEAKER) (test code = 7.8 GM/DL 13.7-17.5 L 410) HEMATOCRIT (BEAKER) (test code = 24.7 % 40.1-51.0 L 411) MEAN CORPUSCULAR VOLUME (BEAKER) 90 fL 79-92 (test code = 753) MEAN CORPUSCULAR HEMOGLOBIN 28.4 pg 25.7-32.2 (BEAKER) (test code = 751) MEAN CORPUSCULAR HEMOGLOBIN CONC 31.6 GM/DL 32.3-36.5 L (BEAKER) (test code = 752) RED CELL DISTRIBUTION WIDTH 13.8 % 11.6-14.4 (BEAKER) (test code = 412) PLATELET COUNT (BEAKER) (test 253 K/CU MM 150-450 code = 756) MEAN PLATELET VOLUME (BEAKER) 10.0 fL 9.4-12.4 (test code = 754) NUCLEATED RED BLOOD CELLS 0 /100 WBC 0-0 (BEAKER) (test code = 413) VANCOMYCIN LEVEL, [id number] 05:55:26 Test Item Value Reference Range Interpretation Comments VANCOMYCIN RANDOM (BEAKER) (test 31.9 ug/mL code = 523) Reference Range: No NormalsBASIC METABOLIC [id number] 05:40:35 Test Item Value Reference Range Interpretation Comments SODIUM (BEAKER) 141 meq/L 136-145 (test code = 381) POTASSIUM 3.9 meq/L 3.5-5.1 (BEAKER) (test code = 379) CHLORIDE (BEAKER) 105 meq/L 98-107 (test code = 382) CO2 (BEAKER) 23 meq/L 22-29 (test code = 355) BLOOD UREA 58 mg/dL 7-21 H NITROGEN (BEAKER) (test code = 354) CREATININE 2.69 mg/dL 0.57-1.25 H (BEAKER) (test code = 358) GLUCOSE RANDOM 125 mg/dL 70-105 H (BEAKER) (test code = 652) CALCIUM (BEAKER) 8.8 mg/dL 8.4-10.2 (test code = 697) EGFR (BEAKER) 27 Interpretati on of eGFR (test code = mL/min/1.73 values Stage De scription 1092) sq m Result G1 Lucy l or high >=90 G2 Mildly decreased 60-89 G3a Mildl y to moderately 45-5 9 G3b Moderately to s everely 30-44 G4 Severl y decreased 15-29 G5 Kidney failure <15Reported eGF R is based on the CKD-EPI 2020 equation that d oes not use a race coefficientEsti mated GFR is not as accur ate as Creatinine Zuri warner in predicting glom erular filtration rate . Estimated GFR is not appl icable for dialysis patien ts Concrete Building Assembler ID - AAHAMIDCREATINE KINASE (CK)2023-01-19 05:40:34 Test Item Value Reference Range Interpretation Comments CREATINE KINASE TOTAL (BEAKER) (test 7531 U/L 29-200 H code = 380) Concrete Building Assembler ID - AAHAMIDOperator ID - AAHAMIDHEPATIC FUNCTION [id number] 05:37:20 Test Item Value Reference Range Interpretation Comments TOTAL PROTEIN (BEAKER) (test code = 6.4 gm/dL 6.0-8.3 770) ALBUMIN (BEAKER) (test code = 1145) 2.9 g/dL 3.5-5.0 L BILIRUBIN TOTAL (BEAKER) (test code 0.3 mg/dL 0.2-1.2 = 377) BILIRUBIN DIRECT (BEAKER) (test 0.2 mg/dL 0.1-0.5 code = 706) ALKALINE PHOSPHATASE (BEAKER) (test 145 U/L 40-150 code = 346) AST (SGOT) (BEAKER) (test code = 162 U/L 5-34 H 353) ALT (SGPT) (BEAKER) (test code = 42 U/L 6-55 347) Concrete Building Assembler ID - AAHAMIDLACTATE DEHYDROGENASE (LDH)2023-01-19 05:37:20 Test Item Value Reference Range Interpretation Comments LACTATE DEHYDROGENASE (BEAKER) (test 818 U/L 125-220 H code = 635) Concrete Building Assembler ID - [id number] 05:37:19 Test Item Value Reference Range Interpretation Comments PHOSPHORUS (BEAKER) (test code = 5.4 mg/dL 2.3-4.7 H 604) Concrete Building Assembler ID - [id number] 04:56:02 Test Item Value Reference Range Interpretation Comments PARTIAL THROMBOPLASTIN TIME 72.5 seconds 22.5-36.0 H (BEAKER) (test code = 760) BLOOD GAS, [id number] 04:40:34 Test Item Value Reference Range Interpretation Comments PH ARTERIAL (BEAKER) (test code = 7.38 7.35-7.45 383) PCO2 ARTERIAL (BEAKER) (test code 42 mm Hg 35-45 = 384) PO2 ARTERIAL (BEAKER) (test code 100 mm Hg 80-90 H = 385) O2 SATURATION ARTERIAL (BEAKER) 97.2 % 96.0-97.0 H (test code = 386) HCO3 ARTERIAL (BEAKER) (test code 24 mmol/L 21-29 = 388) BASE EXCESS ARTERIAL (BEAKER) -0.5 mmol/L -2.0-3.0 (test code = 387) PATIENT TEMPERATURE (BEAKER) 38.0 (test code = 1818) FIO2 (BEAKER) (test code = 1819) 40.0 OXYGEN SATURATION, [id number] 04:39:54 Test Item Value Reference Range Interpretation Comments O2 SATURATION (MEASURED) (BEAKER) 78.5 % (test code = 1455) POCT-GLUCOSE [id number] 03:35:29 Test Item Value Reference Range Interpretation Comments POC-GLUCOSE METER 111 mg/dL 70-110 H : TESTED A T [facility] 6720 (BEAKER) (test code = [place], 1538) 29657: Concrete Building Assembler/Techni marissa ID = [id number] for YOSI URENA POCT-GLUCOSE [id number] 01:50:08 Test Item Value Reference Range Interpretation Comments POC-GLUCOSE METER 150 mg/dL 70-110 H : TESTED A T [facility] 6720 (BEAKER) (test code = N[place] [facility], 1538) 94454: Concrete Building Assembler/Techni marissa ID = [id number] for YOSI URENA [id number] 00:14:32 Test Item Value Reference Range Interpretation Comments PHOSPHORUS (BEAKER) (test code = 5.9 mg/dL 2.3-4.7 H 604) POCT-GLUCOSE [id number] 00:14:16 Test Item Value Reference Range Interpretation Comments POC-GLUCOSE METER 194 mg/dL 70-110 H : [facility] ([facility]ER[facility] (test code = NAB[place] Guardado [facility], 1538) 70868: Concrete Building Assembler/Techni marissa ID = [id number] for Kenneth Chowdary BASIC METABOLIC [id number] 23:47:59 Test Item Value Reference Range Interpretation Comments SODIUM (BEAKER) 140 meq/L 136-145 (test code = 381) POTASSIUM 4.1 meq/L 3.5-5.1 (BEAKER) (test code = 379) CHLORIDE (BEAKER) 104 meq/L 98-107 (test code = 382) CO2 (BEAKER) 18 meq/L 22-29 L (test code = 355) BLOOD UREA 58 mg/dL 7-21 H NITROGEN (BEAKER) (test code = 354) CREATININE 2.63 mg/dL 0.57-1.25 H (BEAKER) (test code = 358) GLUCOSE RANDOM 232 mg/dL 70-105 H (BEAKER) (test code = 652) CALCIUM (BEAKER) 8.7 mg/dL 8.4-10.2 (test code = 697) EGFR (BEAKER) 27 Interpretatio n of eGFR (test code = mL/min/1.73 values Stage De scription 1092) sq m Result G1 Lucy l or high >=90 G2 Mildly decreased 60-89 G3a Mildl y to moderately 45-5 9 G3b Moderately to s everely 30-44 G4 Severl y decreased 15-29 G5 Kidney failure <15Reported eGF R is based on the CKD-EPI 2020 equation that d oes not use a race coefficientEsti mated GFR is not as accur ate as Creatinine Zuri warner in predicting glom erular filtration rate . Estimated GFR is not appl icable for dialysis patien ts CREATINE KINASE (CK)2023-01-18 23:47:58 Test Item Value Reference Range Interpretation Comments CREATINE KINASE TOTAL (BEAKER) (test 7234 U/L 29-200 H code = 380) LACTATE DEHYDROGENASE (LDH)2023-01-18 23:43:46 Test Item Value Reference Range Interpretation Comments LACTATE DEHYDROGENASE (BEAKER) (test 809 U/L 125-220 H code = 635) LACTIC ACID, [id number] 23:27:03 Test Item Value Reference Range Interpretation Comments LACTATE BLOOD ARTERIAL (2) 0.7 mmol/L 0.5-2.0 (BEAKER) (test code = 2874) BLOOD GAS, [id number] 23:13:46 Test Item Value Reference Range Interpretation Comments PH ARTERIAL (BEAKER) (test code = 7.33 7.35-7.45 L 383) PCO2 ARTERIAL (BEAKER) (test code 41 mm Hg 35-45 = 384) PO2 ARTERIAL (BEAKER) (test code 106 mm Hg 80-90 H = 385) O2 SATURATION ARTERIAL (BEAKER) 97.2 % 96.0-97.0 H (test code = 386) HCO3 ARTERIAL (BEAKER) (test code 21 mmol/L 21-29 = 388) BASE EXCESS ARTERIAL (BEAKER) -4.5 mmol/L -2.0-3.0 L (test code = 387) PATIENT TEMPERATURE (BEAKER) 38.0 (test code = 1818) FIO2 (BEAKER) (test code = 1819) 40.0 POCT-GLUCOSE [id number] 22:59:29 Test Item Value Reference Range Interpretation Comments POC-GLUCOSE METER 240 mg/dL 70-110 H : TESTED A T [facility] 6720 (BEAKER) (test code = [facility], 1538) 80339: Concrete Building Assembler/Techni marissa ID = [id number] for JASBIRAWILDAASAELMUNA YOSI POCT-GLUCOSE [id number] 22:23:18 Test Item Value Reference Range Interpretation Comments POC-GLUCOSE METER 225 mg/dL 70-110 H : TESTED A T [facility] 6720 (BEAKER) (test code = [facility], 1538) 28742: Concrete Building Assembler/Techni marissa ID = [id number] for MURAWILDAASAELMUNA YOSI [id number] 20:56:21 Test Item Value Reference Range Interpretation Comments PARTIAL THROMBOPLASTIN TIME 69.1 seconds 22.5-36.0 H (BEAKER) (test code = 760) POCT-GLUCOSE [id number] 20:48:04 Test Item Value Reference Range Interpretation Comments POC-GLUCOSE METER 163 mg/dL 70-110 H : TESTED A T [facility] 6720 (BEAKER) (test code = [place], 1538) 03697: Concrete Building Assembler/Techni marissa ID = [id number] for YOSI URENA BASIC METABOLIC [id number] 20:47:41 Test Item Value Reference Range Interpretation Comments SODIUM (BEAKER) 141 meq/L 136-145 (test code = 381) POTASSIUM 4.2 meq/L 3.5-5.1 (BEAKER) (test code = 379) CHLORIDE (BEAKER) 105 meq/L 98-107 (test code = 382) CO2 (BEAKER) 20 meq/L 22-29 L (test code = 355) BLOOD UREA 55 mg/dL 7-21 H NITROGEN (BEAKER) (test code = 354) CREATININE 2.44 mg/dL 0.57-1.25 H (BEAKER) (test code = 358) GLUCOSE RANDOM 136 mg/dL 70-105 H (BEAKER) (test code = 652) CALCIUM (BEAKER) 8.8 mg/dL 8.4-10.2 (test code = 697) EGFR (BEAKER) 30 Interpretatio n of eGFR (test code = mL/min/1.73 values Stage De scription 1092) sq m Result G1 Lucy l or high >=90 G2 Mildly decreased 60-89 G3a Mildl y to moderately 45-5 9 G3b Moderately to s everely 30-44 G4 Severl y decreased 15-29 G5 Kidney failure <15Reported eGF R is based on the CKD-EPI 202 equation that d oes not use a race coefficientEsti mated GFR is not as accur ate as Creatinine Zuri hylton in predicting glom erular filtration rate . Estimated GFR is not appl icable for dialysis patien ts HEPATIC FUNCTION [id number] 20:47:41 Test Item Value Reference Range Interpretation Comments TOTAL PROTEIN (BEAKER) (test code = 6.3 gm/dL 6.0-8.3 770) ALBUMIN (BEAKER) (test code = 1145) 2.9 g/dL 3.5-5.0 L BILIRUBIN TOTAL (BEAKER) (test code 0.4 mg/dL 0.2-1.2 = 377) BILIRUBIN DIRECT (BEAKER) (test 0.3 mg/dL 0.1-0.5 code = 706) ALKALINE PHOSPHATASE (BEAKER) (test 142 U/L 40-150 code = 346) AST (SGOT) (BEAKER) (test code = 143 U/L 5-34 H 353) ALT (SGPT) (BEAKER) (test code = 38 U/L 6-55 347) OXYGEN SATURATION, [id number] 20:35:39 Test Item Value Reference Range Interpretation Comments O2 SATURATION (MEASURED) (BEAKER) 78.5 % (test code = 1455) BLOOD GAS, [id number] 20:09:46 Test Item Value Reference Range Interpretation Comments PH ARTERIAL (BEAKER) (test code = 7.38 7.35-7.45 383) PCO2 ARTERIAL (BEAKER) (test code 42 mm Hg 35-45 = 384) PO2 ARTERIAL (BEAKER) (test code 117 mm Hg 80-90 H = 385) O2 SATURATION ARTERIAL (BEAKER) 98.0 % 96.0-97.0 H (test code = 386) HCO3 ARTERIAL (BEAKER) (test code 24 mmol/L 21-29 = 388) BASE EXCESS ARTERIAL (BEAKER) -1.1 mmol/L -2.0-3.0 (test code = 387) PATIENT TEMPERATURE (BEAKER) 38.0 (test code = 1818) FIO2 (BEAKER) (test code = 1819) 40.0 POCT-GLUCOSE [id number] 19:53:59 Test Item Value Reference Range Interpretation Comments POC-GLUCOSE METER 112 mg/dL 70-110 H : TESTED A T [facility] 6720 (BEAKER) (test code = [facility] [place], 1538) [address]: Concrete Building Assembler/Techni marissa ID = [id number] for YOSI URENA POCT-GLUCOSE [id number] 19:17:52 Test Item Value Reference Range Interpretation Comments POC-GLUCOSE METER 87 mg/dL 70-110 : TESTED A T [facility] 6720 (BEAKER) (test code = [facility], 153) 349[address]: Concrete Building Assembler/Techni marissa ID = [id number] for Jesk e, Evelin POCT-GLUCOSE [id number] 18:57:22 Test Item Value Reference Range Interpretation Comments POC-GLUCOSE METER 77 mg/dL 70-110 : TESTED A T [facility] 6720 (BEAKER) (test code = [facility], [facility]) [address]: Concrete Building Assembler/Techni marissa ID = [id number] for Jesk e, Evelin POCT-GLUCOSE [id number] 18:39:59 Test Item Value Reference Range Interpretation Comments POC-GLUCOSE METER 87 mg/dL 70-110 : TESTED A T [facility] 6720 ([facility]) (test code = [facility], [facility]) [address]: Concrete Building Assembler/Techni marissa ID = [id number] for MONTSERRAT SANCHEZITHA POCT-GLUCOSE [id number] 18:38:33 Test Item Value Reference Range Interpretation Comments POC-GLUCOSE METER 30 mg/dL 70-110 LL : [facility] T [facility] 6720 [facility] (test code = [facility], 153) 22[address]: Concrete Building Assembler/Techni marissa ID = [id number] for [place] lilo, Em POCT-GLUCOSE [id number] 18:22:58 Test Item Value Reference Range Interpretation Comments POC-GLUCOSE METER 36 mg/dL 70-110 LL : Notified RN/MD: [facility] (test code = AT [facility] [address] [place] [id number]) [facility], 7[address] 30: Concrete Building Assembler/Techni marissa ID = [id number] for [place] lilo, Em POTASSIUM, RANDOM [id number] 18:09:33 Test Item Value Reference Range Interpretation Comments POTASSIUM URINE (BEAKER) (test 33.4 meq/L code = 195) Reference Range: No NormalsSODIUM, RANDOM [id number] 18:07:17 Test Item Value Reference Range Interpretation Comments SODIUM URINE (BEAKER) (test code = 59 meq/L 243) Reference Range: No NormalsCREATININE, RANDOM [id number] 18:07:16 Test Item Value Reference Range Interpretation Comments CREATININE URINE (BEAKER) (test 71.5 mg/dL code = 375) Reference Range: No NormalsOSMOLALITY, [id number] 18:04:20 Test Item Value Reference Range Interpretation Comments OSMOLALITY URINE 319 mOsm/kg See_Comment [Automated message] (SUNG) (test code = The sy stem which 614) generated this result transmitted ref erence range: 50-1,200 mOsm/kg. The reference range was not used to int erpret this result as normal/abnormal . POCT-GLUCOSE [id number] 17:23:31 Test Item Value Reference Range Interpretation Comments POC-GLUCOSE METER 166 mg/dL 70-110 H : TESTED A T [facility] 6720 ([place]) (test code = [facility], 1538) 80217: Concrete Building Assembler/Techni marissa ID = [id number] for Blanca Ridleylin POCT-GLUCOSE [id number] 16:10:47 Test Item Value Reference Range Interpretation Comments POC-GLUCOSE METER 184 mg/dL 70-110 H : TESTED A T [facility] 6720 ([facility]) (test code = [facility], [facility]8) 59026: Concrete Building Assembler/Techni marissa ID = [id number] for Evelin Ridley POCT-GLUCOSE [id number] 14:21:02 Test Item Value Reference Range Interpretation Comments POC-GLUCOSE METER 124 mg/dL 70-110 H : TESTED A T [facility] 6720 ([place]) (test code = [facility], [facility]8) 37678: Concrete Building Assembler/Techni marissa ID = [id number] for NANCY GIRON [id number] 14:12:37 Test Item Value Reference Range Interpretation Comments PARTIAL THROMBOPLASTIN TIME 33.2 seconds 22.5-36.0 (TRENT) (test code = 760) VANCOMYCIN LEVEL, [id number] 13:24:38 Test Item Value Reference Range Interpretation Comments VANCOMYCIN TROUGH (TRENT) (test 37.2 ug/mL 10.0-20.0 HH code = 522) POCT-GLUCOSE [id number] 13:03:15 Test Item Value Reference Range Interpretation Comments POC-GLUCOSE METER 251 mg/dL 70-110 H : TESTED A T [facility] 6720 ([facility]) (test code = [facility], 1538) 71819: Concrete Building Assembler/Techni marissa ID = [id number] for Evelin Ridley BASIC METABOLIC [id number] 12:12:42 Test Item Value Reference Range Interpretation Comments SODIUM (BEAKER) 138 meq/L 136-145 (test code = 381) POTASSIUM 3.9 meq/L 3.5-5.1 (BEAKER) (test code = 379) CHLORIDE (BEAKER) 103 meq/L 98-107 (test code = 382) CO2 (BEAKER) 26 meq/L 22-29 (test code = 355) BLOOD UREA 48 mg/dL 7-21 H NITROGEN (BEAKER) (test code = 354) CREATININE 2.12 mg/dL 0.57-1.25 H (BEAKER) (test code = 358) GLUCOSE RANDOM 210 mg/dL 70-105 H (BEAKER) (test code = 652) CALCIUM (BEAKER) 8.5 mg/dL 8.4-10.2 (test code = 697) EGFR (BEAKER) 36 Interpretatio n of eGFR (test code = mL/min/1.73 values Stage De scription 1092) sq m Result G1 Lucy l or high >=90 G2 Mildly decreased 60-89 G3a Mildl y to moderately 45-5 9 G3b Moderately to s everely 30-44 G4 Severl y decreased 15-29 G5 Kidney failure <15Reported eGF R is based on the CKD-EPI 2020 equation that d oes not use a race coefficientEsti mated GFR is not as accur ate as Creatinine Zuri warner in predicting glom erular filtration rate . Estimated GFR is not appl icable for dialysis patien ts Concrete Building Assembler ID - AAHAMIDBLOOD GAS, [id number] 12:07:33 Test Item Value Reference Range Interpretation Comments PH VENOUS (BEAKER) (test code = 7.38 7.32-7.42 701) PCO2 VENOUS (BEAKER) (test code = 45 mm Hg 41-51 755) PO2 VENOUS (BEAKER) (test code = 55 mm Hg 25-40 H 702) O2 SATURATION VENOUS (BEAKER) 85.9 % 40.0-70.0 H (test code = 703) HCO3 VENOUS (BEAKER) (test code = 26 mmol/L 21-29 705) BASE EXCESS VENOUS (BEAKER) (test 0.5 mmol/L -2.0-3.0 code = 704) PATIENT TEMPERATURE (BEAKER) (test 38.0 code = 1818) FIO2 (BEAKER) (test code = 1819) 40.0 BLOOD GAS, [id number] 11:54:34 Test Item Value Reference Range Interpretation Comments PH ARTERIAL (BEAKER) (test code = 7.37 7.35-7.45 383) PCO2 ARTERIAL (BEAKER) (test code 45 mm Hg 35-45 = 384) PO2 ARTERIAL (BEAKER) (test code = 48 mm Hg 80-90 L 385) O2 SATURATION ARTERIAL (BEAKER) 79.7 % 96.0-97.0 L (test code = 386) HCO3 ARTERIAL (BEAKER) (test code 25 mmol/L 21-29 = 388) BASE EXCESS ARTERIAL (BEAKER) 0.0 mmol/L -2.0-3.0 (test code = 387) PATIENT TEMPERATURE (BEAKER) (test 38.0 code = 1818) FIO2 (BEAKER) (test code = 1819) 40.0 POCT-GLUCOSE [id number] 11:54:13 Test Item Value Reference Range Interpretation Comments POC-GLUCOSE METER 209 mg/dL 70-110 H : TESTED A T [facility] 6720 (BEAKER) (test code = [facility], 1538) 70828: Concrete Building Assembler/Techni marissa ID = [id number] for Je ske, Evelin POCT-GLUCOSE [id number] 09:42:45 Test Item Value Reference Range Interpretation Comments POC-GLUCOSE METER 145 mg/dL 70-110 H : TESTED A T [facility] 6720 (BEAKER) (test code = [facility], 1538) 317[address]: Concrete Building Assembler/Techni marissa ID = [id number] for Je ske, Evelin POCT-GLUCOSE [id number] 08:52:36 Test Item Value Reference Range Interpretation Comments POC-GLUCOSE METER 134 mg/dL 70-110 H : TESTED A T [facility] 6720 (BEAKER) (test code = [facility], 1538) 47971: Concrete Building Assembler/Techni marissa ID = [id number] for Je ske, Evelin POCT-GLUCOSE [id number] 07:15:37 Test Item Value Reference Range Interpretation Comments POC-GLUCOSE METER 138 mg/dL 70-110 H : Notified RN/MD: (SUNG) (test code = TESTED AT [place] [address]) [facility], [address]: Concrete Building Assembler/Techni marissa ID = [id number] for Tiff Stevens [id number] 06:51:04 Test Item Value Reference Range Interpretation Comments PARTIAL THROMBOPLASTIN TIME 33.1 seconds 22.5-36.0 ([facility] (test code = 760) POCT-GLUCOSE [id number] 06:16:58 Test Item Value Reference Range Interpretation Comments POC-GLUCOSE METER 152 mg/dL 70-110 H : Notified RN/MD: (SUNG) (test code = TESTED AT [place] [address]) [facility], [address]: Concrete Building Assembler/Techni marissa ID = [id number] for Tiff Stevens POCT-GLUCOSE [id number] 05:19:41 Test Item Value Reference Range Interpretation Comments POC-GLUCOSE METER 170 mg/dL 70-110 H : Notified RN/MD: (SUNG) (test code = TESTED AT [place] [address]) [facility], [address]: Concrete Building Assembler/Techni marissa ID = [id number] for Tiff Stevens [id number] 05:12:47 Test Item Value Reference Range Interpretation Comments MAGNESIUM (BEAKER) (test code = 2.5 mg/dL 1.6-2.6 627) Concrete Building Assembler ID - SOURAV WBASIC METABOLIC [id number] 05:12:46 Test Item Value Reference Range Interpretation Comments SODIUM (BEAKER) 141 meq/L 136-145 (test code = 381) POTASSIUM 4.0 meq/L 3.5-5.1 (BEAKER) (test code = 379) CHLORIDE (BEAKER) 105 meq/L 98-107 (test code = 382) CO2 (BEAKER) 24 meq/L 22-29 (test code = 355) BLOOD UREA 48 mg/dL 7-21 H NITROGEN (BEAKER) (test code = 354) CREATININE 1.97 mg/dL 0.57-1.25 H (BEAKER) (test code = 358) GLUCOSE RANDOM 145 mg/dL 70-105 H (BEAKER) (test code = 652) CALCIUM (BEAKER) 8.5 mg/dL 8.4-10.2 (test code = 697) EGFR (BEAKER) 39 Interpretatio n of eGFR (test code = mL/min/1.73 values Stage De scription 1092) sq m Result G1 Lucy l or high >=90 G2 Mildly decreased 60-89 G3a Mild ly to moderately 45-5 9 G3b Moderately to s everely 30-44 G4 Severl y decreased 15-29 G5 Kidney failure <15Reported eGF R is based on the CKD-EPI 202 equation that d oes not use a race coefficientEsti mated GFR is not as accur ate as Creatinine Zuri warner in predicting glom erular filtration rate . Estimated GFR is not appl icable for dialysis patien ts Concrete Building Assembler ID - SOURAV WCBC W/PLT COUNT & AUTO [id number] 04:53:59 Test Item Value Reference Range Interpretation Comments WHITE BLOOD CELL COUNT (BEAKER) 13.1 K/ L 3.5-10.5 H (test code = 775) RED BLOOD CELL COUNT (BEAKER) 2.67 M/ L 4.63-6.08 L (test code = 761) HEMOGLOBIN (BEAKER) (test code = 7.6 GM/DL 13.7-17.5 L 410) HEMATOCRIT (BEAKER) (test code = 24.0 % 40.1-51.0 L 411) MEAN CORPUSCULAR VOLUME (BEAKER) 90 fL 79-92 (test code = 753) MEAN CORPUSCULAR HEMOGLOBIN 28.5 pg 25.7-32.2 (BEAKER) (test code = 751) MEAN CORPUSCULAR HEMOGLOBIN CONC 31.7 GM/DL 32.3-36.5 L (BEAKER) (test code = 752) RED CELL DISTRIBUTION WIDTH 13.4 % 11.6-14.4 (BEAKER) (test code = 412) PLATELET COUNT (BEAKER) (test 244 K/CU MM 150-450 code = 756) MEAN PLATELET VOLUME (BEAKER) 10.2 fL 9.4-12.4 (test code = 754) NUCLEATED RED BLOOD CELLS 0 /100 WBC 0-0 (BEAKER) (test code = 413) NEUTROPHILS RELATIVE PERCENT 73 % (BEAKER) (test code = 429) LYMPHOCYTES RELATIVE PERCENT 9 % (BEAKER) (test code = 430) MONOCYTES RELATIVE PERCENT 10 % (BEAKER) (test code = 431) EOSINOPHILS RELATIVE PERCENT 7 % (BEAKER) (test code = 432) BASOPHILS RELATIVE PERCENT 1 % (BEAKER) (test code = 437) NEUTROPHILS ABSOLUTE COUNT 9.59 K/ L 1.78-5.38 H (BEAKER) (test code = 670) LYMPHOCYTES ABSOLUTE COUNT 1.14 K/ L 1.32-3.57 L (BEAKER) (test code = 414) MONOCYTES ABSOLUTE COUNT (BEAKER) 1.30 K/ L 0.30-0.82 H (test code = 415) EOSINOPHILS ABSOLUTE COUNT 0.97 K/ L 0.04-0.54 H (BEAKER) (test code = 416) BASOPHILS ABSOLUTE COUNT (BEAKER) 0.06 K/ L 0.01-0.08 (test code = 417) IMMATURE GRANULOCYTES-RELATIVE 0.60 % 0.00-1.00 PERCENT (BEAKER) (test code = 2801) OXYGEN SATURATION, [id number] 04:29:48 Test Item Value Reference Range Interpretation Comments O2 SATURATION (MEASURED) (BEAKER) 67.8 % (test code = 1455) POCT-GLUCOSE [id number] 04:21:37 Test Item Value Reference Range Interpretation Comments POC-GLUCOSE METER 164 mg/dL 70-110 H : TESTED A T [facility] 6720 (BEAKER) (test code = [facility], 1538) [address]: Concrete Building Assembler/Techni marissa ID = [id number] for Tiff Stevens CALCIUM, [id number] 04:15:57 Test Item Value Reference Range Interpretation Comments CALCIUM IONIZED (BEAKER) (test 1.07 mmol/L 1.12-1.27 L code = 698) PH, BLOOD (BEAKER) (test code = 7.50 1810) BLOOD GAS, [id number] 04:15:56 Test Item Value Reference Range Interpretation Comments PH ARTERIAL (BEAKER) (test code = 7.49 7.35-7.45 H 383) PCO2 ARTERIAL (BEAKER) (test code 34 mm Hg 35-45 L = 384) PO2 ARTERIAL (BEAKER) (test code = 160 mm Hg 80-90 H 385) O2 SATURATION ARTERIAL (BEAKER) 99.2 % 96.0-97.0 H (test code = 386) HCO3 ARTERIAL (BEAKER) (test code 25 mmol/L 21-29 = 388) BASE EXCESS ARTERIAL (BEAKER) 2.0 mmol/L -2.0-3.0 (test code = 387) PATIENT TEMPERATURE (BEAKER) (test 37.5 code = 1818) FIO2 (BEAKER) (test code = 1819) 40.0 POCT-GLUCOSE [id number] 02:09:53 Test Item Value Reference Range Interpretation Comments POC-GLUCOSE METER 120 mg/dL 70-110 H : Not[facility] RN[facility]MD: [facility] (test code = TESTED AT [facility] 6720 1538) [facility], [address]: Concrete Building Assembler/Techni marissa ID = [id number] for Tiff Stevens POCT-GLUCOSE [id number] 02:03:11 Test Item Value Reference Range Interpretation Comments POC-GLUCOSE METER 113 mg/dL 70-110 H : [facility] ([facility]) (test code = [facility], 1538) [address]: Concrete Building Assembler/Techni marissa ID = [id number] for Tiff Stevens [id number] 01:23:14 Test Item Value Reference Range Interpretation Comments MAGNESIUM (BEAKER) (test code = 2.3 mg/dL 1.6-2.6 627) Concrete Building Assembler ID - [id number] 01:23:14 Test Item Value Reference Range Interpretation Comments POTASSIUM (BEAKER) (test code = 3.7 meq/L 3.5-5.1 379) Concrete Building Assembler ID - ADMINPOCT-GLUCOSE [id number] 00:57:12 Test Item Value Reference Range Interpretation Comments POC-GLUCOSE METER 108 mg/dL 70-110 : [facility] (test code = [facility], 1538) [address]: Concrete Building Assembler/Techni marissa ID = [id number] for Tiff Stevens [id number] 00:26:45 Test Item Value Reference Range Interpretation Comments PARTIAL THROMBOPLASTIN TIME 31.7 seconds 22.5-36.0 (BEAKER) (test code = 760) POCT-GLUCOSE [id number] 00:09:28 Test Item Value Reference Range Interpretation Comments POC-GLUCOSE METER 103 mg/dL 70-110 : [facility] (BEAKER) (test code = [facility], 1538) 160[address]: Concrete Building Assembler/Techni marissa ID = [id number] for Tiff Stevens POCT-GLUCOSE [id number] 22:09:33 Test Item Value Reference Range Interpretation Comments POC-GLUCOSE METER 105 mg/dL 70-110 : [facility] (BEAKER[facility] (test code = [facility], 1538) [address]: Concrete Building Assembler/Techni marissa ID = [id number] for Tiff Stevens POCT-GLUCOSE [id number] 21:11:39 Test Item Value Reference Range Interpretation Comments POC-GLUCOSE METER 122 mg/dL 70-110 H : Notified RN/MD: [facility] (test code = TESTED AT [facility] 6720 1538) [facility], [address]: Concrete Building Assembler/Techni marissa ID = [id number] for Tiff Stevens POCT-GLUCOSE [id number] 20:12:20 Test Item Value Reference Range Interpretation Comments POC-GLUCOSE METER 154 mg/dL 70-110 H : [facility] (BEAKER) (test code = [facility], 1538) [address]: Concrete Building Assembler/Techni marissa ID = [id number] for Tiff Stevens [id number] 20:09:57 Test Item Value Reference Range Interpretation Comments PHOSPHORUS (BEAKER) (test code = 1.9 mg/dL 2.3-4.7 L 604) Concrete Building Assembler ID - [id number] 20:09:56 Test Item Value Reference Range Interpretation Comments MAGNESIUM (BEAKER) (test code = 1.9 mg/dL 1.6-2.6 627) Concrete Building Assembler ID - ADMINCALCIUM, [id number] 19:53:13 Test Item Value Reference Range Interpretation Comments CALCIUM IONIZED (BEAKER) (test 1.10 mmol/L 1.12-1.27 L code = 698) PH, BLOOD (BEAKER) (test code = 7.57 1810) BLOOD GAS, [id number] 19:53:12 Test Item Value Reference Range Interpretation Comments PH ARTERIAL (BEAKER) (test code = 7.56 7.35-7.45 H 383) PCO2 ARTERIAL (BEAKER) (test code 31 mm Hg 35-45 L = 384) PO2 ARTERIAL (BEAKER) (test code = 138 mm Hg 80-90 H 385) O2 SATURATION ARTERIAL (BEAKER) 99.0 % 96.0-97.0 H (test code = 386) HCO3 ARTERIAL (BEAKER) (test code 27 mmol/L 21-29 = 388) BASE EXCESS ARTERIAL (BEAKER) 4.6 mmol/L -2.0-3.0 H (test code = 387) PATIENT TEMPERATURE (BEAKER) (test 37.7 code = 1818) FIO2 (BEAKER) (test code = 1819) 40.0 OXYGEN SATURATION, [id number] 19:27:15 Test Item Value Reference Range Interpretation Comments O2 SATURATION (MEASURED) (BEAKER) 80.7 % (test code = 1455) BASIC METABOLIC [id number] 19:23:37 Test Item Value Reference Range Interpretation Comments SODIUM (BEAKER) 139 meq/L 136-145 (test code = 381) POTASSIUM 3.4 meq/L 3.5-5.1 L (BEAKER) (test code = 379) CHLORIDE (BEAKER) 103 meq/L 98-107 (test code = 382) CO2 (BEAKER) 24 meq/L 22-29 (test code = 355) BLOOD UREA 45 mg/dL 7-21 H NITROGEN (BEAKER) (test code = 354) CREATININE 1.60 mg/dL 0.57-1.25 H (BEAKER) (test code = 358) GLUCOSE RANDOM 199 mg/dL 70-105 H (BEAKER) (test code = 652) CALCIUM (BEAKER) 8.9 mg/dL 8.4-10.2 (test code = 697) EGFR (BEAKER) 50 Interpretatio n of eGFR (test code = mL/min/1.73 values Stage De scription 1092) sq m Result G1 Lucy l or high >=90 G2 Mildly decreased 60-89 G3a Mildl y to moderately 45-5 9 G3b Moderately to s everely 30-44 G4 Severl y decreased 15-29 G5 Kidney failure <15Reported eGF R is based on the CKD-EPI 2020 equation that d oes not use a race coefficientEsti mated GFR is not as accur ate as Creatinine Zuri harveyce in predicting glom erular filtration rate . Estimated GFR is not appl icable for dialysis patien ts Concrete Building Assembler ID - ADMINBLOOD GAS, [id number] 19:12:28 Test Item Value Reference Range Interpretation Comments PH ARTERIAL (BEAKER) (test code = 7.57 7.35-7.45 H 383) PCO2 ARTERIAL (BEAKER) (test code 30 mm Hg 35-45 L = 384) PO2 ARTERIAL (BEAKER) (test code = 105 mm Hg 80-90 H 385) O2 SATURATION ARTERIAL (BEAKER) 98.5 % 96.0-97.0 H (test code = 386) HCO3 ARTERIAL (BEAKER) (test code 26 mmol/L 21-29 = 388) BASE EXCESS ARTERIAL (BEAKER) 4.4 mmol/L -2.0-3.0 H (test code = 387) PATIENT TEMPERATURE (BEAKER) (test 37.0 code = 1818) FIO2 (BEAKER) (test code = 1819) 21.0 CBC (HEMOGRAM ONLY)[id number] 19:09:16 Test Item Value Reference Range Interpretation Comments WHITE BLOOD CELL COUNT (BEAKER) 14.9 K/ L 3.5-10.5 H (test code = 775) RED BLOOD CELL COUNT (BEAKER) 2.90 M/ L 4.63-6.08 L (test code = 761) HEMOGLOBIN (BEAKER) (test code = 8.5 GM/DL 13.7-17.5 L 410) HEMATOCRIT (BEAKER) (test code = 25.4 % 40.1-51.0 L 411) MEAN CORPUSCULAR VOLUME (BEAKER) 88 fL 79-92 (test code = 753) MEAN CORPUSCULAR HEMOGLOBIN 29.3 pg 25.7-32.2 (BEAKER) (test code = 751) MEAN CORPUSCULAR HEMOGLOBIN CONC 33.5 GM/DL 32.3-36.5 (BEAKER) (test code = 752) RED CELL DISTRIBUTION WIDTH 13.2 % 11.6-14.4 (BEAKER) (test code = 412) PLATELET COUNT (BEAKER) (test 260 K/CU MM 150-450 code = 756) MEAN PLATELET VOLUME (BEAKER) 9.9 fL 9.4-12.4 (test code = 754) NUCLEATED RED BLOOD CELLS 0 /100 WBC 0-0 (BEAKER) (test code = 413) POCT-GLUCOSE [id number] 18:54:13 Test Item Value Reference Range Interpretation Comments POC-GLUCOSE METER 201 mg/dL 70-110 H : TESTED A T [facility] 6720 ([facility]) (test code = [facility] Debby [facility], 1538) [address]: Concrete Building Assembler/Techni marissa ID = [id number] for Carmen Guo POCT-GLUCOSE [id number] 17:53:08 Test Item Value Reference Range Interpretation Comments POC-GLUCOSE METER 236 mg/dL 70-110 H : TESTED A T [facility] 6720 ([facility]) (test code = [facility], 1538) [address]: Concrete Building Assembler/Techni marissa ID = [id number] for Farzana delgadoiftikharNahid chaudhryli [id number] 17:43:40 Test Item Value Reference Range Interpretation Comments PARTIAL THROMBOPLASTIN TIME 32.3 seconds 22.5-36.0 ([facility]) (test code = 760) POCT-GLUCOSE [id number] 16:38:23 Test Item Value Reference Range Interpretation Comments POC-GLUCOSE METER 275 mg/dL 70-110 H : TESTED A T [facility] 6720 ([facility]) (test code = [facility], 1538) [address]: Concrete Building Assembler/Techni marissa ID = [id number] for Farzana mccoy, Em XR CHEST 1 VIEW PORTABLE / [id number] 16:03:57 [facility] 1965 Sex: MCHESTONE VIEWHISTORY: Transvenous pacer placementCOMPARISON: 01/17/2023 at 1022 hoursFINDINGS:Single portable AP examination of the chest was performed. Interval placement of a left jugular transvenous pacinglead, whichterminates in the region of the right heart.Right jugular pulmonary arterial catheter tipis in the region of theleft pulmonary artery.Intra-articular and pump projects at the level of the aortic arch.Endotracheal tube tip is 4 cm proximal to the carlos.Nasogastric tube tip is in region of stomach.The bilateral pulmonary opacities are without appreciable change. Nopleural effusion or pneumo thorax.Electronically Signed By: Chriss Sanchez01/17/2023 16:06 CDTWorkstation Name: [id number] 15:39:39 Test Item Value Reference Range Interpretation Comments POC-GLUCOSE METER 280 mg/dL 70-110 H : TESTED Rodrigo T [facility] 67[address] (BEAKER) (test code = [place], 1538) [id number]: Concrete Building Assembler/Techni marissa ID = [id number] for Fr ost, Carmen HEPATIC FUNCTION [id number] 14:25:00 Test Item Value Reference Range Interpretation Comments TOTAL PROTEIN (BEAKER) (test code = 6.5 gm/dL 6.0-8.3 770) ALBUMIN (BEAKER) (test code = 1145) 3.1 g/dL 3.5-5.0 L BILIRUBIN TOTAL (BEAKER) (test code 0.5 mg/dL 0.2-1.2 = 377) BILIRUBIN DIRECT (BEAKER) (test 0.3 mg/dL 0.1-0.5 code = 706) ALKALINE PHOSPHATASE (BEAKER) (test 121 U/L 40-150 code = 346) AST (SGOT) (BEAKER) (test code = 101 U/L 5-34 H 353) ALT (SGPT) (BEAKER) (test code = 32 U/L 6-55 347) Concrete Building Assembler ID - CHET WBLOOD GAS, [id number] 14:04:59 Test Item Value Reference Range Interpretation Comments PH ARTERIAL (BEAKER) (test code = 7.51 7.35-7.45 H 383) PCO2 ARTERIAL (BEAKER) (test code 33 mm Hg 35-45 L = 384) PO2 ARTERIAL (BEAKER) (test code = 142 mm Hg 80-90 H 385) O2 SATURATION ARTERIAL (BEAKER) 99.0 % 96.0-97.0 H (test code = 386) HCO3 ARTERIAL (BEAKER) (test code 26 mmol/L 21-29 = 388) BASE EXCESS ARTERIAL (BEAKER) 3.4 mmol/L -2.0-3.0 H (test code = 387) PATIENT TEMPERATURE (BEAKER) (test 38.0 code = 1818) FIO2 (BEAKER) (test code = 1819) 50.0 [id number] 13:30:50 Test Item Value Reference Range Interpretation Comments GLUCOSE RANDOM (BEAKER) (test code 294 mg/dL 70-105 H = 652) Concrete Building Assembler ID - CHET [id number] 13:30:49 Test Item Value Reference Range Interpretation Comments POTASSIUM (BEAKER) 4.0 meq/L 3.5-5.1 Specimen slightly (test code = 379) hemolyzed Concrete Building Assembler ID - CHET WPOCT-GLUCOSE [id number] 12:56:30 Test Item Value Reference Range Interpretation Comments POC-GLUCOSE METER 279 mg/dL 70-110 H : TESTED A T [facility] 6720 (BEAKER) (test code = N[place], 1538) [id number]: Concrete Building Assembler/Techni marissa ID = [id number] for Em Cordero BASIC METABOLIC [id number] 11:59:39 Test Item Value Reference Range Interpretation Comments SODIUM (BEAKER) 138 meq/L 136-145 (test code = 381) POTASSIUM 4.1 meq/L 3.5-5.1 (BEAKER) (test code = 379) CHLORIDE (BEAKER) 102 meq/L 98-107 (test code = 382) CO2 (BEAKER) 24 meq/L 22-29 (test code = 355) BLOOD UREA 40 mg/dL 7-21 H NITROGEN (BEAKER) (test code = 354) CREATININE 1.71 mg/dL 0.57-1.25 H (BEAKER) (test code = 358) GLUCOSE RANDOM 299 mg/dL 70-105 H (BEAKER) (test code = 652) CALCIUM (BEAKER) 9.1 mg/dL 8.4-10.2 (test code = 697) EGFR (BEAKER) 46 Interpretatio n of eGFR (test code = mL/min/1.73 values Stage De scription 1092) sq m Result G1 Lucy l or high >=90 G2 Mildly decreased 60-89 G3a Mildl y to moderately 45-5 9 G3b Moderately to s everely 30-44 G4 Severl y decreased 15-29 G5 Kidney failure <15Reported eGF R is based on the CKD-EPI 2020 equation that d oes not use a race coefficientEsti mated GFR is not as accur ate as Creatinine Zuri hylton in predicting glom erular filtration rate . Estimated GFR is not appl icable for dialysis patien ts Concrete Building Assembler ID - CHET WCBC (HEMOGRAM ONLY)2023-01-17 11:40:56 Test Item Value Reference Range Interpretation Comments WHITE BLOOD CELL COUNT (BEAKER) 20.0 K/ L 3.5-10.5 H (test code = 775) RED BLOOD CELL COUNT (BEAKER) 3.16 M/ L 4.63-6.08 L (test code = 761) HEMOGLOBIN (BEAKER) (test code = 9.1 GM/DL 13.7-17.5 L 410) HEMATOCRIT (BEAKER) (test code = 27.8 % 40.1-51.0 L 411) MEAN CORPUSCULAR VOLUME (BEAKER) 88 fL 79-92 (test code = 753) MEAN CORPUSCULAR HEMOGLOBIN 28.8 pg 25.7-32.2 (BEAKER) (test code = 751) MEAN CORPUSCULAR HEMOGLOBIN CONC 32.7 GM/DL 32.3-36.5 (BEAKER) (test code = 752) RED CELL DISTRIBUTION WIDTH 13.2 % 11.6-14.4 (BEAKER) (test code = 412) PLATELET COUNT (BEAKER) (test 279 K/CU MM 150-450 code = 756) MEAN PLATELET VOLUME (BEAKER) 9.8 fL 9.4-12.4 (test code = 754) NUCLEATED RED BLOOD CELLS 0 /100 WBC 0-0 (BEAKER) (test code = 413) BASIC METABOLIC [id number] 11:18:31 Test Item Value Reference Range Interpretation Comments SODIUM (BEAKER) 138 meq/L 136-145 (test code = 381) POTASSIUM 4.3 meq/L 3.5-5.1 (BEAKER) (test code = 379) CHLORIDE (BEAKER) 102 meq/L 98-107 (test code = 382) CO2 (BEAKER) 24 meq/L 22-29 (test code = 355) BLOOD UREA 40 mg/dL 7-21 H NITROGEN (BEAKER) (test code = 354) CREATININE 1.73 mg/dL 0.57-1.25 H (BEAKER) (test code = 358) GLUCOSE RANDOM 294 mg/dL 70-105 H (BEAKER) (test code = 652) CALCIUM (BEAKER) 8.8 mg/dL 8.4-10.2 (test code = 697) EGFR (BEAKER) 45 Interpretatio n of eGFR (test code = mL/min/1.73 values Stage De scription 1092) sq m Result G1 Lucy l or high >=90 G2 Mildly decreased 60-89 G3a Mildl y to moderately 45-5 9 G3b Moderately to s everely 30-44 G4 Sever ly decreased 15-29 G5 Kidney failure <15Repo rted eGFR is based on the CKD-EPI 2020 equation t hat does not use a race coefficientEsti mated GFR is not as accur ate as Creatinine Zuri warner in predicting glom erular filtration rate . Estimated GFR is not appl icable for dialysis patien ts Concrete Building Assembler ID Adebayo ROSENBERG WLACTIC ACID, [id number] 11:15:50 Test Item Value Reference Range Interpretation Comments LACTATE BLOOD ARTERIAL (2) 1.4 mmol/L 0.5-2.0 (BEAKER) (test code = 2874) Concrete Building Assembler BEULAH ROSENBERG [id number] 11:12:26 Test Item Value Reference Range Interpretation Comments PARTIAL THROMBOPLASTIN TIME 134.4 seconds 22.5-36.0 H (BEAKER) (test code = 760) BLOOD GAS, [id number] 11:04:45 Test Item Value Reference Range Interpretation Comments PH ARTERIAL (BEAKER) (test code = 7.50 7.35-7.45 H 383) PCO2 ARTERIAL (BEAKER) (test code 35 mm Hg 35-45 = 384) PO2 ARTERIAL (BEAKER) (test code = 161 mm Hg 80-90 H 385) O2 SATURATION ARTERIAL (BEAKER) 99.2 % 96.0-97.0 H (test code = 386) HCO3 ARTERIAL (BEAKER) (test code 26 mmol/L 21-29 = 388) BASE EXCESS ARTERIAL (BEAKER) 3.4 mmol/L -2.0-3.0 H (test code = 387) PATIENT TEMPERATURE (BEAKER) (test 38.0 code = 1818) FIO2 (BEAKER) (test code = 1819) 60.0 XR CHEST 1 VIEW PORTABLE / [id number] 11:04:24 [facility] 1965 Sex: MCHEST ONE VIEWHISTORY: IntubationCOMPARISON: 01/17/2023 0213 hoursFINDINGS:Single portable AP examination of the chest was performed. Endotracheal tube tip is 4.5 cm proximal to the carlos.Intra-aortic balloon pump marker projects at the level of the aorticarch.Right jugular pulmonary arterial catheter is inthe region of the mainpulmonary artery. Nasogastric tube tip is in the region of the stomach.Bilateral pulmonary opacities, left greater the right, are withoutappreciable change. No pleural effusions or pneumothorax are identified.The heart is at the upper limits of normal in size.Electronically Signed By: Chriss Sanchez01/17/2023 11:06 CDTWorkstation Name: [id number] SATURATION, [id number] 11:02:34 Test Item Value Reference Range Interpretation Comments O2 SATURATION (MEASURED) (BEAKER) 85.6 % (test code = 1455) POCT-GLUCOSE [id number] 10:25:37 Test Item Value Reference Range Interpretation Comments POC-GLUCOSE METER 298 mg/dL 70-110 H : TESTED A T [facility] 6720 (BEAKER) (test code = [place], 1538) [id number]: Concrete Building Assembler/Techni marissa ID = [id number] for Fr ost, Carmen HEMOGLOBIN [id number] 09:20:08 Test Item Value Reference Range Interpretation Comments HEMOGLOBIN A1C 7.8 % See_Comment H [Automated m essage] ELECTROPHORESIS (BEAKER) The system which (test code = 3811) generated this result transmitted ref erence range: <=5.6%. The reference range was not used to int erpret this result as normal/abnormal . "The A1c is measured using a [facility]-certified method. HbA1c value equal to or greater than 6.5% as thediagnosis cutoff for diabetes. An HbA1c value of 5.7- 6.4% indicates increased risk for diabetes (prediabetes)."Concrete Building Assembler ID - [id number] 08:09:40 Test Item Value Reference Range Interpretation Comments ACTIVATED CLOTTING TIME 257 sec : 74 -137 seconds, (BEAKER) (test code = Baseli ne: TESTED AT 441) [facility] [address] [facility], [address]: Concrete Building Assembler/Techni marissa ID = [id number] for Bea Nascimento lt [id number] 07:56:16 Test Item Value Reference Range Interpretation Comments ACTIVATED CLOTTING TIME 233 sec : 74 -137 seconds, (BEAKER) (test code = Baseli ne: TESTED AT 441) [facility] [address] [facility], [address]: Concrete Building Assembler/Techni marissa ID = [id number] for Bea Nascimento lt HIGH SENSITIVITY TROPONIN [id number] 07:19:08 Test Item Value Reference Range Interpretation Comments HIGH SENSITIVITY > pg/ml See_Comment HH [Automated message] TROPONIN I (test code = The system which [id number]) generated this result transmitted ref erence range: <=35. Th e reference range was not used to interpr et this result as normal/abnormal . Concrete Building Assembler ID - SOURAV WThe EQUIPMENT ENGINEER STAT High Sensitivity Troponin-I results should be used in conjunction with other diagnostic information such as ECG, clinical observations and information, and patient symptoms to aid in the diagnosis of CO.Concrete Building Assembler ID - SOURAV WBLOOD GAS, [id number] 05:27:03 Test Item Value Reference Range Interpretation Comments PH ARTERIAL (BEAKER) (test code = 7.45 7.35-7.45 383) PCO2 ARTERIAL (BEAKER) (test code 36 mm Hg 35-45 = 384) PO2 ARTERIAL (BEAKER) (test code = 168 mm Hg 80-90 H 385) O2 SATURATION ARTERIAL (BEAKER) 99.2 % 96.0-97.0 H (test code = 386) HCO3 ARTERIAL (BEAKER) (test code 24 mmol/L 21-29 = 388) BASE EXCESS ARTERIAL (BEAKER) 0.6 mmol/L -2.0-3.0 (test code = 387) PATIENT TEMPERATURE (BEAKER) (test 37.7 code = 1818) FIO2 (BEAKER) (test code = 1819) 70.0 XR ABDOMEN/KUB 1 VIEW [id number] 03:23:27 [facility] 1965 Sex: MEXAM/TECHNIQUE: XR ABDOMEN/KUB 1 VIEW PORTABLEINDICATION: Enteric tube placement verificationCOMPARISON: None.FINDINGS: Gastric tube and sidehole terminate in the expected location of thestomach. Nonspecificbowel gas pattern. No acute osseous process.IMPRESSION:Gastric tube and sidehole terminate in the expected location of thestomach.Electronically Signed By: Dg Oneil01/17/2023 03:25 CDTWorkstationName: [id number] CHEST 1 VIEW PORTABLE / [id number] 03:22:47[facility] : 1965 Sex: MEXAM/TECHNIQUE: Single view frontal radiograph of the chest.INDICATION: ETT placementCOMPARISON: None.FINDINGS: Devices/Objects: Endotracheal tube terminates 7.5 cm above the carlos.Gastric tube and sidehole terminate in the expected location of thestomach. Right PICC terminates in the lower SVC, appropriate.Lungs: Left pleural effusion with hazy bilateral pulmonary opacities.Heart/Mediastinum: Cardiomegaly with interstitial thickening.Osseous: No acute osseous process. No suspicious osseous lesion.Upperabdomen: Unremarkable.IMPRESSION:1. Endotracheal tube terminates 7.5 cm above the carlos. 2. Pulmonary edema.Electronically Signed By: Dg Oneil01/17/2023 03:24 CDTWorkstation Name: [id number] URINALYSIS W/ REFLEX URINE [id number] 02:49:04 Test Item Value Reference Range Interpretation Comments COLOR (BEAKER) (test code = 470) Colorless CLARITY (BEAKER) (test code = 469) Clear SPECIFIC GRAVITY UA (BEAKER) (test 1.008 1.001-1.035 code = 468) PH UA (BEAKER) (test code = 467) 6.0 5.0-8.0 PROTEIN UA (BEAKER) (test code = Negative Negative 464) GLUCOSE UA (BEAKER) (test code = 500 mg/dL Negative A 365) KETONES UA (BEAKER) (test code = Negative Negative 371) BILIRUBIN UA (BEAKER) (test code = Negative Negative 462) BLOOD UA (BEAKER) (test code = Moderate Negative A 461) NITRITE UA (BEAKER) (test code = Negative Negative 465) LEUKOCYTE ESTERASE UA (BEAKER) Moderate Negative A (test code = 466) UROBILINOGEN UA (BEAKER) (test 0.2 0.2-1.0 code = 463) RBC UA (BEAKER) (test code = 519) 19 /HPF WBC UA (BEAKER) (test code = 520) 15 /HPF BACTERIA (BEAKER) (test code = Rare 517) MUCUS (BEAKER) (test code = 1574) Occasional HYALINE CASTS (BEAKER) (test code 11 /LPF = 514) SOURCE(BEAKER) (test code = 3559) Concrete Building Assembler ID - [auto]Concrete Building Assembler ID - techHIGH SENSITIVITY TROPONIN [id number] 02:48:53 Test Item Value Reference Range Interpretation Comments HIGH SENSITIVITY 54121 pg/ml See_Comment HH [Automated message] TROPONIN I (test code The sy stem which = [id number]) generated this result transmitted ref erence range: <=35. Th e reference range was not used to int erpret this result as normal/abnormal . Concrete Building Assembler ID - ADMINThe EQUIPMENT ENGINEER STAT High Sensitivity Troponin-I results should be used in conjunction with other diagnostic information such as ECG, clinical observations and information, and patientsymptoms to aid in the diagnosis of CO.Concrete Building Assembler ID - ADMINCOMPREHENSIVE METABOLIC [id number] 02:40:09 Test Item Value Reference Range Interpretation Comments TOTAL PROTEIN 6.2 gm/dL 6.0-8.3 (BEAKER) (test code = 770) ALBUMIN (BEAKER) 2.9 g/dL 3.5-5.0 L (test code = 1145) ALKALINE 114 U/L 40-150 PHOSPHATASE (BEAKER) (test code = 346) BILIRUBIN TOTAL 0.6 mg/dL 0.2-1.2 (BEAKER) (test code = 377) SODIUM (BEAKER) 133 meq/L 136-145 L (test code = 381) POTASSIUM (BEAKER) 4.2 meq/L 3.5-5.1 (test code = 379) CHLORIDE (BEAKER) 101 meq/L 98-107 (test code = 382) CO2 (BEAKER) (test 21 meq/L 22-29 L code = 355) BLOOD UREA 38 mg/dL 7-21 H NITROGEN (BEAKER) (test code = 354) CREATININE 1.57 mg/dL 0.57-1.25 H (BEAKER) (test code = 358) GLUCOSE RANDOM 460 mg/dL 70-105 HH (BEAKER) (test code = 652) CALCIUM (BEAKER) 8.1 mg/dL 8.4-10.2 L (test code = 697) AST (SGOT) 101 U/L 5-34 H (BEAKER) (test code = 353) ALT (SGPT) 26 U/L 6-55 (BEAKER) (test code = 347) EGFR (BEAKER) 51 Interpretatio n of eGFR (test code = 1092) mL/min/1.[address] age Description sq m Result G1 Lucy l or high >=90 G2 Mildly decreased 60-89 G3a Mild ly to moderately 45-5 9 G3b Moderately to s everely 30-44 G4 Severl y decreased 15-29 G5 Kidney failure <15Reported eGF R is based on the CKD-EPI 2020 equation that d oes not use a race coefficientEsti mated GFR is not as accur ate as Creatinine Zuri warner in predicting glom erular filtration rate . Estimated GFR is not appl icable for dialysis patien ts Concrete Building Assembler ID - ADMINPOCT-GLUCOSE [id number] 02:39:52 Test Item Value Reference Range Interpretation Comments POC-GLUCOSE METER 373 mg/dL 70-110 H : Notified RN/MD: (SUNG) (test code = TESTED AT [facility] 1500 [address]70) [facility], [id number]: Concrete Building Assembler/Techni marissa ID = [id number] for RI PPLE, ANNA TSH/FREE T4 IF [id number] 02:38:29 Test Item Value Reference Range Interpretation Comments THYROID STIMULATING HORMONE 2.492 uIU/mL 0.350-4.940 (BEAKER) (test code = 772) Concrete Building Assembler ID - ADMINBLOOD GAS, [id number] 02:27:06 Test Item Value Reference Range Interpretation Comments PH VENOUS (BEAKER) (test code = 7.39 7.32-7.42 701) PCO2 VENOUS (BEAKER) (test code = 41 mm Hg 41-51 755) PO2 VENOUS (BEAKER) (test code = 29 mm Hg 25-40 702) O2 SATURATION VENOUS (BEAKER) 50.2 % 40.0-70.0 (test code = 703) HCO3 VENOUS (BEAKER) (test code = 24 mmol/L 21-29 705) BASE EXCESS VENOUS (BEAKER) (test -0.7 mmol/L -2.0-3.0 code = 704) PATIENT TEMPERATURE (BEAKER) 37.8 (test code = 1818) FIO2 (BEAKER) (test code = 1819) 60.0 B-TYPE NATRIURETIC FACTOR (BNP)2023-01-17 02:23:44 Test Item Value Reference Range Interpretation Comments B-TYPE NATRIURETIC PEPTIDE (BEAKER) 446 pg/mL 0-100 H (test code = 700) Concrete Building Assembler ID - ADMIN(CELLAVISION MANUAL DIFF)2023-01-17 02:23:05 Test Item Value Reference Range Interpretation Comments NEUTROPHILS - REL 78 % (CELLAVISION)(BEAKER) (test code = 2816) LYMPHOCYTES - REL 8 % (CELLAVISION)(BEAKER) (test code = 2817) MONOCYTES - REL 9 % (CELLAVISION)(BEAKER) (test code = 2818) EOSINOPHILS - REL 5 % (CELLAVISION)(BEAKER) (test code = 2819) NEUTROPHILS - ABS 13.10 K/ul 1.78-5.38 H (CELLAVISION)(BEAKER) (test code = 2830) LYMPHOCYTES - ABS 1.34 K/ul 1.32-3.57 (CELLAVISION)(BEAKER) (test code = 2831) MONOCYTES - ABS 1.51 K/uL 0.30-0.82 H (CELLAVISION)(BEAKER) (test code = 2832) EOSINOPHILS - ABS 0.84 K/uL 0.04-0.54 H (CELLAVISION)(BEAKER) (test code = 2834) TOTAL COUNTED (BEAKER) (test code 100 = 1351) WBC MORPHOLOGY (BEAKER) (test Normal code = 487) GIANT PLATELETS (BEAKER) (test Present code = 313) POLYCHROMATOPHILLIC RBCS(BEAKER) 1+ few (test code = 478) ANISOCYTOSIS (BEAKER) (test code 2+ moderate = 961) MICROCYTES (BEAKER) (test code = 2+ moderate 965) POIKILOCYTES (BEAKER) (test code 1+ few = 966) TARGET CELLS (BEAKER) (test code 1+ few = 480) OVALOCYTES (BEAKER) (test code = 1+ few 477) ROSEMARY CELLS (BEAKER) (test code = 1+ few 474) ARTIFACT (CELLAVISION)(BEAKER) Present (test code = 3432) PLATELET CONCENTRATION Adequate (CELLAVISION)(BEAKER) (test code = 3438) Concrete Building Assembler ID - Rhonda Medina comments: Slide comments:CBC W/PLT COUNT & AUTO [id number] 02:23:04 Test Item Value Reference Range Interpretation Comments WHITE BLOOD CELL COUNT (BEAKER) 16.8 K/ L 3.5-10.5 H (test code = 775) RED BLOOD CELL COUNT (BEAKER) 3.01 M/ L 4.63-6.08 L (test code = 761) HEMOGLOBIN (BEAKER) (test code = 8.7 GM/DL 13.7-17.5 L 410) HEMATOCRIT (BEAKER) (test code = 26.7 % 40.1-51.0 L 411) MEAN CORPUSCULAR VOLUME (BEAKER) 89 fL 79-92 (test code = 753) MEAN CORPUSCULAR HEMOGLOBIN 28.9 pg 25.7-32.2 (BEAKER) (test code = 751) MEAN CORPUSCULAR HEMOGLOBIN CONC 32.6 GM/DL 32.3-36.5 (BEAKER) (test code = 752) RED CELL DISTRIBUTION WIDTH 13.2 % 11.6-14.4 (BEAKER) (test code = 412) PLATELET COUNT (BEAKER) (test 270 K/CU MM 150-450 code = 756) MEAN PLATELET VOLUME (BEAKER) 9.7 fL 9.4-12.4 (test code = 754) NUCLEATED RED BLOOD CELLS 0 /100 WBC 0-0 (BEAKER) (test code = 413) [id number] 02:17:47 Test Item Value Reference Range Interpretation Comments PHOSPHORUS (BEAKER) (test code = 1.9 mg/dL 2.3-4.7 L 604) Concrete Building Assembler ID - [id number] 02:17:46 Test Item Value Reference Range Interpretation Comments MAGNESIUM (BEAKER) (test code = 2.0 mg/dL 1.6-2.6 627) Concrete Building Assembler ID - ADMINLACTIC ACID, [id number] 02:16:42 Test Item Value Reference Range Interpretation Comments LACTATE BLOOD VENOUS (2) (BEAKER) 1.18 mmol/L 0.50-2.00 (test code = 2872) Concrete Building Assembler ID - ADMINOXYGEN SATURATION, [id number] 02:16:41 Test Item Value Reference Range Interpretation Comments O2 SATURATION (MEASURED) (BEAKER) 43.1 % (test code = 1455) [id number] 02:05:19 Test Item Value Reference Range Interpretation Comments PARTIAL THROMBOPLASTIN TIME 40.4 seconds 22.5-36.0 H (BEAKER) (test code = 760) [id number] 02:04:38 Test Item Value Reference Range Interpretation Comments FIBRINOGEN LEVEL (BEAKER) (test 767 mg/dl 225-434 H code = 658) PROTHROMBIN [id number] 02:04:17 Test Item Value Reference Range Interpretation Comments PROTIME (BEAKER) 18.0 seconds 11.9-14.2 H (test code = 759) INR (BEAKER) (test 1.60 See_Comment [Automat ed message] code = 370) The system [employer] generated this result transmitted ref erence range: <=5.90. The reference range was not used to int erpret this result as normal/abnormal . RECOMMENDED COUMADIN/WARFARIN INR THERAPY RANGESSTANDARD DOSE: 2.0 - 3.0 Includes: PROPHYLAXIS for venous thrombosis, systemic embolization; TREATMENT for venous thrombosis and/or pulmonary embolus.HIGH RISK: Target INR is 2.5-3.5 for patients with mechanical heart valves.CALCIUM, [id number] 01:51:19 Test Item Value Reference Range Interpretation Comments CALCIUM IONIZED (BEAKER) (test 1.06 mmol/L 1.12-1.27 L code = 698) PH, BLOOD (BEAKER) (test code = 7.44 1810) CBC W/AUTO [id number] 00:00:00 Test Item Value Reference Range Interpretation Comments NUCLEATED RBCS (test 0.0 /100 WBC'S See_Comment [Aut omated message] code = 21885-8) The system [facility] generated this result transmit sho reference range : 0.0 /100 WBC'S. The reference range was not used to interpret this result as normal/abnormal . ABSOLUTE EOSINOPHILS 0.62 K/UL See_Comment H [Autom ated message] (test code = The system [employer] 12559-8) generated this result transmit sho reference range : 0.00-0.50 K/UL. The reference range was not used to interpret this result as normal/abnormal . ABSOLUTE LYMPHOCYTES 2.88 K/UL See_Comment [Autom ated message] (test code = The system [facility] 21701-3) generated this result transmit sho reference range : 1.00-4.00 K/UL. The reference range was not used to interpret this result as normal/abnormal . ABSOLUTE MONOCYTES 0.82 K/UL See_Comment [Automat ed message] (test code = The system [facility] 70337-2) generated this result transmit sho reference range : 0.20-1.00 K/UL. The reference range was not used to interpret this result as normal/abnormal . ABSOLUTE NEUTROPHILS 5.34 K/UL See_Comment [Autom ated message] (test code = The system [facility] 68407-9) generated this result transmit sho reference range : 1.50-7.50 K/UL. The reference range was not used to interpret this result as normal/abnormal . BASOPHILS (test code 0.5 % = 47035-6) EOSINOPHILS (test 6.4 % code = 82287-5) HEMATOCRIT (test 34.8 % See_Comment L [Automated message] code = 77485-9) The system [facility] generated this result transmit sho reference range : 40.0-51.0 %. Th e reference range was not used to interpret this result as normal/abnormal . HEMOGLOBIN (test 11.8 G/DL See_Comment L [Automated message] code = 718-7) The system [facility] generated this result transmit sho reference range : 13.5-17.0 G/DL. The reference range was not used to interpret this result as normal/abnormal . LYMPHOCYTES (test 29.6 % code = 20405-6) MCH (test code = 29.9 PG See_Comment [Automated message] 04909-5) The system [facility] generated this result transmit sho reference range : 25.0-33.0 PG. T he reference range was not used to interpret this result as normal/abnormal . MCHC (test code = 33.9 G/DL See_Comment [Automate d message] 81154-7) The system [facility] generated this result transmit sho reference range : 31.0-36.0 G/DL. The reference range was not used to interpret this result as normal/abnormal . MCV (test code = 88.1 fL See_Comment [Automated message] 66824-0) The system [employer] generated this result transmit sho reference range : 80.0-99.0 fL. T he reference range was not used to interpret this result as normal/abnormal . MONOCYTES (test code 8.4 % = 75950-1) NEUTROPHILS (test 54.8 % code = 28340-0) PLATELET COUNT (test 325 K/UL See_Comment [Autom ated message] code = 25816-4) The system [employer] generated this result transmit sho reference range : 130-400 K/UL. T he reference range was not used to interpret this result as normal/abnormal . RBC (test code = 3.95 M/UL See_Comment L [Automated message] 88271-3) The system [employer] generated this result transmit sho reference range : 4.50-6.10 M/UL. The reference range was not used to interpret this result as normal/abnormal . RDW (test code = 13.2 % See_Comment [Automated message] 25515-7) The system [employer] generated this result transmit sho reference range : 11.5-15.0 %. Th e reference range was not used to interpret this result as normal/abnormal . WBC (test code = 9.7 K/UL See_Comment [Automated message] 80118-3) The system [employer] generated this result transmit sho reference range : 3.5-11.0 K/UL. The reference range was not used to interpret this result as normal/abnormal . HEMOGLOBIN [id number] 00:00:00 Test Item Value Reference Range Interpretation Comments HEMOGLOBIN A1c (test 8.0 % See_Comment H [Autom ated message] The code = 4548-4) system which generated this result tra nsmitted reference range : 4.2-5.6 %. The referenc e range was not used to interpret this result as normal/abnormal . LIPID PANEL WITH REFLEX DIRECT [id number] 00:00:00 Test Item Value Reference Range Interpretation Comments CALC LDL CHOL (test 119 MG/DL See_Comment H [Automa sho message] code = 32781-3) The system [employer] generated this result transmit sho reference range : <100 MG/DL. The reference range was not used to interpret this result as normal/abnormal . CHOLESTEROL (test code 190 MG/DL See_Comment [Aut omated message] = 2093-3) The system [employer] generated this result transmit sho reference range : <200 MG/DL. The reference range was not used to interpret this result as normal/abnormal . HDL CHOLESTEROL (test 31 MG/DL See_Comment L [Auto mated message] code = 2085-9) The system [employer] generated this result transmit sho reference range : >39 MG/DL. The refe rence range was not u sed to interpret th is result as normal/abnormal . RISK RATIO LDL/HDL 3.84 RATIO See_Comment H [Automat ed message] (test code = 45317-2) The sy stem which generated this result transmit sho reference range : <3.55 RATIO. Th e reference range was not used to interpret this result as normal/abnormal . TRIGLYCERIDES (test 299 MG/DL See_Comment H [Automa sho message] code = 2571-8) The system [employer] generated this result transmit sho reference range : <150 MG/DL. The reference range was not used to interpret this result as normal/abnormal . ALBUMIN/CREATININE RATIO, RANDOM [id number] 00:00:00 Test Item Value Reference Range Interpretation Comments ALBUMIN, URINE, <0.2 MG/DL NOT ESTAB MG/DL RANDOM (test code = 84643-7) CALC ALBUMIN/CREAT, <2 MG/G See_Comment [Automa sho message] The RND (test code = system [employer] generated 76740-7) this result tra nsmitted reference range : <30 MG/G. The refer ence range was not u sed to interpret this result as normal/abnormal . CREATININE, URINE, 82.4 MG/DL NOT ESTAB MG/DL CONC. (test code = 2161-8) COMPREHENSIVE METABOLIC [id number] 00:00:00 Test Item Value Reference Range Interpretation Comments ALBUMIN (test code = 4.0 G/DL See_Comment [Autom ated message] 1751-7) The system [employer]ot[employer] generated this result transmit sho reference range : 3.5-5.2 G/DL. T he reference range was not used to interpret this result as normal/abnormal . ALKALINE PHOSPHATASE 209 U/L See_Comment H [Autom ated message] (test code = 6768-6) The sys tem which generated this result transmit sho reference range : 40-123 U/L. The reference range was not used to interpret this result as normal/abnormal . BILIRUBIN, TOTAL <0.2 MG/DL See_Comment [Automated message] (test code = 1975-2) The [facility] which generated this result transmit sho reference range : <=1.2 MG/DL. Th e reference range was not used to interpret this result as normal/abnormal . BUN (test code = 34 MG/DL See_Comment H [Automated message] 3094-0) The system [facility] generated this result transmit sho reference range : 6-20 MG/DL. The reference range was not used to interpret this result as normal/abnormal . CALCIUM (test code = 9.8 MG/DL See_Comment [Autom ated message] 21693-5) The system [facility] generated this result transmit sho reference range : 8.5-10.5 MG/DL. The reference range was not used to interpret this result as normal/abnormal . CALC A/G RATIO (test 1.3 RATIO See_Comment [Autom ated message] code = 1759-0) The system [facility] generated this result transmit sho reference range : 1.0-2.6 RATIO. The reference range was not used to interpret this result as normal/abnormal . CALC BUN/CREAT (test 19 RATIO See_Comment [Autom ated message] code = 2067-3) The system [facility] generated this result transmit sho reference range : 6-28 RATIO. The reference range was not used to interpret this result as normal/abnormal . CALC GLOBULIN (test 3.2 G/DL See_Comment [Automa sho message] code = 93255-9) The system [facility] generated this result transmit sho reference range : 1.9-3.7 G/DL. T he reference range was not used to interpret this result as normal/abnormal . CARBON DIOXIDE (test 28 MEQ/L See_Comment [Autom ated message] code = 1963-8) The system [facility] generated this result transmit sho reference range : 19-31 MEQ/L. Th e reference range was not used to interpret this result as normal/abnormal . CHLORIDE (test code 104 MEQ/L See_Comment [Automa sho message] = 6325-0) The system [facility] generated this result transmit sho reference range : 95-107 MEQ/L. T he reference range was not used to interpret this result as normal/abnormal . CREATININE (test 1.83 MG/DL See_Comment H [Automated message] code = 2160-0) The system [employer] generated this result transmit sho reference range : 0.80-1.40 MG/DL . The reference range was not used to interpret this result as normal/abnormal . eGFR (2020 CKD-EPI) 42 ML/MIN/1.73 See_Comment L [Auto mated message] (test code = The system [employer] 85319-2) generated this result transmit sho reference range : >60 ML/MIN/1.73. Th e reference range was not used to interpret this result as normal/abnormal . GLUCOSE (test code = 70 MG/DL See_Comment [Autom ated message] 1558-6) The system [employer] generated this result transmit sho reference range : 70-99 MG/DL. Th e reference range was not used to interpret this result as normal/abnormal . POTASSIUM (test code 4.3 MEQ/L See_Comment [Autom ated message] = 2823-3) The system [employer] generated this result transmit sho reference range : 3.5-5.4 MEQ/L. The reference range was not used to interpret this result as normal/abnormal . PROTEIN, TOTAL (test 7.2 G/DL See_Comment [Autom ated message] code = 2885-2) The system [employer] generated this result transmit sho reference range : 6.1-8.3 G/DL. T he reference range was not used to interpret this result as normal/abnormal . AST (test code = 16 U/L See_Comment [Automated message] 1920-8) The system [employer] generated this result transmit sho reference range : 9-50 U/L. The reference range was not used to interpret this result as normal/abnormal . ALT (test code = 11 U/L See_Comment [Automated message] 1742-6) The system [employer] generated this result transmit sho reference range : 5-50 U/L. The reference range was not used to interpret this result as normal/abnormal . SODIUM (test code = 145 MEQ/L See_Comment [Automa sho message] 2951-2) The system [employer] generated this result transmit sho reference range : 133-146 MEQ/L. The reference range was not used to interpret this result as normal/abnormal . 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 [facility] GLUCOSE [id number] 14:43:00 Test Item Value Reference Range Interpretation Comments GLUCOSE BEDSIDE (test 371 MG/DL 70-110 H Perfor med by certified code = GLUBED) 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 [facility] GLUCOSE [id number] 13:47:00 Test Item Value Reference Range Interpretation Comments GLUCOSE BEDSIDE (test 379 MG/DL 70-110 H Perfor med by certified code = GLUBED) 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 [facility] GLUCOSE [id number] 12:54:00 Test Item Value Reference Range Interpretation Comments GLUCOSE BEDSIDE (test 391 MG/DL 70-110 H Perfor med by certified code = GLUBED) 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 [facility] [id number] 12:19:00 Test Item Value Reference Range Interpretation Comments ACT-ISTAT (test code 311 SEC 74-137 H Perform ed by certified = ACTI) 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 Acct: [id number] Dis Date: Status: PRE [facility] PHONE #: [phone] Exam Date: 07/20/2022 1503 FAX #: [phone] Reason: PRE OP EXAMS: CPT CODE: [id number] XR CHEST 2 V [id number] INFORMATION: Exam: XR Chest Exam date and time: 07/20/2022 3:01 PM Age: 57 years old Clinical indication: Pre-operative exam; Cardiovascular screening and respiratory screening exam; Additionalinfo: Pre op TECHNIQUE: Imaging protocol: Radiologic exam [...] Keyur Bonds MD; Sydni Serna NP Technologist: Stefania Longo RT(R) Trnscrd Date/Time/By: 07/20/2022 (625) : By: SamiaTDO Orig Print D/T: S: 07/20/2022 (670) PAGE 1 Signed ReportMR ORBIT W WO [id number] 18:04:12 Patient motion degrades image quality, mildly [...] to patientmotion.Remote, lacunar infarct of the right hemipons.[facility] BRAIN W WO [id number] 18:04:12 Patient motion degrades image quality, mildly [...] is unremarkable. No orbital mass is present. [facility], Radiant Results Inft User - [...] to patientmotion.Remote, lacunar infarct of the right hemipons.[facility]
[2023-04-11] MEDS ORDERED: FENTANYL CITR 100 MCG/2 ML ONE (23:13)
[2023-04-11 23:42] LABS: Absolute Lymphocytes (CBC) 2.1 K/uL (0.7-4.9); Hematocrit 26.7 % (39.6-49.0); Lymphocytes % 19.1 % (15.3-44.8); MCV 81.6 fL (80-100); Platelets 438 thou/uL (152-406); RBC Red Blood Cell Count 3.27 M/uL (4.33-5.43)
[2023-04-11 23:50] LABS: Protime INR 1.28
[2023-04-11] MEDS ORDERED: D10W 250 ML IV ONE (23:52)
[2023-04-12 00:18] LABS: Albumin 2.4 g/dL (3.4-5.0); Bilirubin Total 0.6 mg/dL (0.2-1.0); Potassium 2.7 mEq/L (3.5-5.1); Protein, Total 7.5 g/dL (6.4-8.2); Troponin High Sensitivity 33.6 pg/mL (<58.9)
[2023-04-12 00:45] LABS: Specific Gravity 1.007 (1.005-1.030); Urine Bilirubin NEGATIVE (Negative); Urine Blood Negative (Negative); Urine Clarity Clear (Clear); Urine Color Colorless (Yellow); Urine Glucose 2+ (Negative); Urine Protein NEGATIVE (Negative); Urine Urobilinogen Normal (Normal)
[2023-04-12] MEDS ORDERED: FENTANYL CITR 100 MCG/2 ML ONE (01:22)
[2023-04-12] MEDS ORDERED: NA CHLORIDE 0.9% 250 ML ONE ×2 (01:22→03:51)
[2023-04-12] MEDS ORDERED: KCL 20 MEQ/100 mL IVPB 100 ML IV ONE (01:22)
[2023-04-12] MEDS ORDERED: POTASSIUM 25 MEQ EFFERV TAB ONE (02:50)
--- NOTE | 2023-04-12 03:26 | EDPHYS ---
Physician Documentation [facility] Name: Tripp Webster Age: 58 yrs Sex: Male : 1965 Arrival Date: 04/11/2023 Time: 22:07 Bed 19 Private MD: ED Physician Kenn Yap HPI: 04/11 22:35 This 58 yrs old Male presents to ER via EMS with complaints of Fall Injury. cp 22:35 Details of fall: The patient fell from an upright position, while walking. cp 22:35 Onset: The symptoms/episode began/occurred today. cp 22:35 Associated injuries: The patient sustained injury to the head, pain, tailbone. Patient cp is a 58 y/o male who presents to ED after falling from standing times 2 today. Patient reports striking head and tailbone area. Patient c/o legs being weak that led to fall and chronic wound to left great toe with increasing pain. Historical: - Allergies: 22:27 No Known Allergies; me1 - PMHx: 22:27 neuropathy; CAD; depressive disorder; Diabetes - IDDM; GERD; Hypercholesterolemia; me1 Hypertension; - PSHx: 22:27 cardiac stents; Coronary artery bypass graft; me1 - Immunization history:: Adult Immunizations unknown. - Social history:: Smoking status: Patient denies any tobacco usage or history of. - Immunization history: Last tetanus immunization: - up to date. ROS: 22:40 Constitutional: Negative for body aches, chills, fever, poor PO intake, cp 22:40 Eyes: Negative for injury, pain, redness, and discharge, cp 22:40 ENT: Negative for drainage from ear(s), ear pain, sore throat, difficulty swallowing, difficulty handling secretions, 22:40 Cardiovascular: Negative for chest pain, edema, palpitations, 22:40 Respiratory: Negative for cough, shortness of breath, wheezing, 22:40 Abdomen/GI: Negative for abdominal pain, vomiting, diarrhea, constipation, black/tarry stool, rectal bleeding, 22:40 Back: Positive for pain at rest, pain with movement, of the sacrum, 22:40 MS/extremity: Positive for pain, of the left foot and left first toe, 22:40 Neuro: Positive for headache, weakness, Negative for altered mental status, loss of consciousness, syncope, 22:40 All other systems are negative, Exam: 10:45 Constitutional: The patient appears in no acute distress, alert, awake, cp non-diaphoretic, non-toxic, well developed, well nourished, uncomfortable, 10:45 Head/face: Exam is negative for deformity, cp 10:45 Eyes: Periorbital structures: appear normal, Pupils: equal, round, and reactive to light and accomodation, Extraocular movements: intact throughout, Conjunctiva: normal, no exudate, no injection, Sclera: no appreciated abnormality, Lids and lashes: appear normal, bilaterally, 10:45 ENT: External ear(s): are unremarkable, Nose: is normal, Mouth: Lips: moist, Oral mucosa: pink and intact, moist, Posterior pharynx: is normal, airway is patent, no erythema, no exudate, 10:45 Neck: C-spine: C-collar placed [employer]EN[employer], 10:45 Chest/axilla: Inspection: normal, Palpation: is normal, no crepitus, no tenderness, 10:45 Cardiovascular: Rate: normal, Rhythm: regular, Edema: is not appreciated, JVD: is not appreciated, 10:45 Respiratory: the patient does not display signs of respiratory distress, Respirations: normal, no use of accessory muscles, no retractions, labored breathing, is not present, Breath sounds: are clear throughout, no decreased breath sounds, no stridor, no wheezing, 10:45 Abdomen/GI: Inspection: gastrostomy tube noted left upper abdomen, Bowel sounds: active, all quadrants, Palpation: soft, in all quadrants, mild abdominal tenderness, in all quadrants, rebound tenderness, is not appreciated, involuntary guarding, is not appreciated, 10:45 Back: pain, that is moderate, of the lumbar area and sacrum, ROM is painful, with all movement, 10:45 Musculoskeletal/extremity: Extremities: noted in the left foot: chronic wound noted distal phalanx of left great toe with erythema that advances proximally to mid foot and mild swelling, no drainage from wound expressed, the left foot Severe pain noted. 10:45 Neuro: Orientation: to person, place \T\ time. Mentation: is normal, Motor: moves all fours, no focal deficits, 22:47 ECG was reviewed by the Attending Physician. cp Vital Signs: 22:20 BP 119 / 74; Pulse 82; Resp 15; Temp 98.1(O); Pulse Ox 100% ; Weight 96.16 kg; Height 5 me1 ft. 11 in. ; Pain 8/10; 04/12 00:29 BP 118 / 64; Pulse 79; Resp 16 S; Pulse Ox 100% on R/A; lg3 01:27 BP 114 / 53; Pulse 76; Resp 16 S; Pulse Ox 99% on R/A; lg3 02:42 BP 109 / 57; Pulse 74; Resp 16 S; Pulse Ox 99% on R/A; lg3 04/11 22:20 Body Mass Index 29.57 (96.16 kg, 180.34 cm) me1 04/11 22:20 Pain Scale: Adult me1 [place] Coma Score: 04/11 23:43 Eye Response: spontaneous(4). Motor Response: obeys commands(6). Verbal Response: me1 oriented(5). Total: 15. Trauma Score (Adult): 23:43 Eye Response: spontaneous(1); Verbal Response: oriented(1); Motor Response: obeys me1 commands(2); Systolic BP: > 89 mm Hg(4); Respiratory Rate: 10 to 29 per min(4); Fausto Score: 15; Trauma Score: 12 MDM: 22:22 Patient medically screened. cp 04/12 03:30 Data reviewed: vital signs, nurses notes, lab test result(s), EKG, radiologic studies, cp CT scan, plain films. 03:30 Consideration of Admission/Observation Patient was admitted/placed on observation. cp Management of patient was discussed with the following: Hospitalist: DR Shannon will admit after discussion. 03:30 Independent interpretation of the following test(s) in the Emergency Department EKG: cp See my EKG interpretation above. Care significantly affected by the following chronic conditions: Diabetes, Hypertension. 03:30 Differential diagnosis: closed head injury, contusion, fracture, multiple trauma, cp osteomyelitis. Counseling: I had a detailed discussion with the patient and/or guardian regarding the historical points, exam findings, and any diagnostic results supporting the discharge/admit diagnosis, lab results, radiology results, the need for further work-up and treatment in the hospital. Response to treatment: the patient's symptoms have mildly improved after treatment. 04/11 22:33 Order name: Blood Culture Adult (2) cp 04/11 22:33 Order name: CBC with Diff; Complete Time: 00:04 04/12 00:05 Interpretation: Normal except: WBC 11.10; RBC 3.27; HGB 9.0; HCT 26.7; PLT 438; RDW cp 17.8; MPV 7.0; MN% 13.9; MNA 1.6. 04/11 22:33 Order name: CMP; Complete Time: 00:45 04/12 00:45 Interpretation: Normal except: NA 135; K 2.7; CL 97; GLUC 37; BUN 34; CRE 1.39; GFR 58; cp AST 10; ALT 14; ALK 139; ALB 2.4; GLOB 5.1; A/G 0.5. 04/11 22:33 Order name: Lactate w/ 2H reflex if indic.; Complete Time: 00:04 04/12 00:05 Interpretation: LAC 1.4; Reviewed. 04/11 22:33 Order name: Protime (+inr); Complete Time: 00:04 04/12 01:43 Interpretation: Abnormal: PT 14.1. 04/11 22:33 Order name: Ptt, Activated; Complete Time: 00:04 04/11 22:33 Order name: Urinalysis w/ reflexes; Complete Time: 01:42 04/12 01:42 Interpretation: Normal except: UGLUC 2+. 04/11 22:33 Order name: Troponin High Sensitivity; Complete Time: 00:45 04/12 01:43 Interpretation: Troponin HS 33.6; Reviewed. 04/11 23:49 Order name: Glucose, Ancillary Testing; Complete Time: 00:04 EDMT 04/12 00:33 Order name: Glucose, Ancillary Testing EDMT 04/11 22:33 Order name: Chest Single View XRAY 04/11 22:33 Order name: XRAY Foot LEFT 3 View 04/11 23:12 Order name: CT Traumagram (Head C Spine CAP W Con) 04/11 22:33 Order name: EKG; Complete Time: 22:34 04/11 22:33 Order name: Accucheck; Complete Time: 23:40 04/11 22:33 Order name: Cardiac monitoring; Complete Time: 22:47 04/11 22:33 Order name: EKG - Nurse/Tech; Complete Time: 22:47 cp 04/11 22:33 Order name: IV Saline Lock - Large Bore; Complete Time: 23:32 cp 04/11 22:33 Order name: Labs collected and sent; Complete Time: 23:32 cp 04/11 22:33 Order name: O2 Per Protocol; Complete Time: 22:47 cp 04/11 22:33 Order name: O2 Sat Monitoring; Complete Time: 22:47 cp 04/11 22:33 Order name: Vital Signs; Complete Time: 23:33 cp EC/29 22:47 Rate is 83 beats/min. Rhythm is regular. NC interval is normal. QRS interval is cp prolonged at 102 msec. QT interval is normal. Interpreted by me. Reviewed by me. Administered Medications: 23:15 Drug: fentaNYL (PF) IVP 25 mcg IVP once Route: IVP; Site: left forearm; ca1 23:34 Follow up: Response: No adverse reaction; Pain is unchanged, physician notified ca1 23:39 Drug: D10 in Water IVP 250 ml IVP once Route: IVP; Site: right wrist; ca1 04/12 05:08 Follow up: Response: No adverse reaction 01:26 Drug: Potassium Chloride IV 20 mEq IV at calculated rate once; administer over 1-2 lg3 hours Route: IV; Rate: calculated rate; Site: right wrist; 03:45 Follow up: Response: No adverse reaction; IV Status: Completed infusion; IV Intake: lg3 100ml 01:26 Drug: NS 0.9% IV 250 ml IV at bolus once Route: IV; Rate: bolus; Site: right wrist; lg3 03:45 Follow up: IV Status: Completed infusion; IV Intake: 250ml lg3 01:26 Drug: fentaNYL (PF) IVP 25 mcg IVP once Route: IVP; Site: right wrist; lg3 03:45 Follow up: Response: No adverse reaction lg3 02:37 Drug: Potassium PO Effervescent Tablet 50 mEq PO once; dissolve in 4 ounces of water or lg3 juice Route: PO; 03:45 Follow up: Response: No adverse reaction lg3 03:45 Drug: vancoMYCIN IVPB 1 grams IVPB once over 2 hrs Route: IVPB; Infused Over: 2 hrs; lg3 Site: right wrist; 05:09 Follow up: Response: No adverse reaction; IV Status: Infusion continued upon admission Point of Care Testing: Blood Glucose: 04/11 11:35 Blood Glucose: 34 mg/dL; me1 Ranges: Critical Glucose Levels:Adult <50 mg/dl or >400 mg/dl <40 mg/dl or >180 mg/dl Disposition: 04/12 20:10 Co-signature as Attending Physician, Kenn Yap MD I agree with the assessment sp4 and plan of care. I reviewed the patient's care provided by the Advanced Practice Provider and agree with the diagnosis and treatment plan. Disposition Summary: 04/12/23 03:25 Hospitalization Ordered Notes: Hospitalization Status: Inpatient Admission cp Provider: Anand Shannon cp Location: Telemetry/MedSurg (Inpatient) cp Condition: Stable cp Problem: new cp Symptoms: have improved cp Bed/Room Type: Standard cp Room Assignment: 223(04/12/23 04:34) eb1 Diagnosis - Fall on same level, unspecified cp - Weakness cp - Hypokalemia cp - Cellulitis of left toe cp Forms: - Medication Reconciliation Form cp - SBAR form cp - Leadership Thank You Letter cp Signatures: Dispatcher [employer] EDSydni Wolfe RN RN Naveen Garcia PA PA cp Suzy Morel RN RN eb1 Shanika Koch RN RN 3 Kenn Yap MD MD sp4 Brionna Bell RN RN me1 Corrections: (The following items were deleted from the chart) 04:34 03:25 cp eb1 04/13 04:13 04/12 03:30 Management of patient was discussed with the following: Hospitalist: DR agnes Mooney will admit after discussion. cp
--- NOTE | 2023-04-12 03:26 | ER ---
Nurse's Notes [facility] Name: Tripp Webster Age: 58 yrs Sex: Male : 1965 Arrival Date: 04/11/2023 Time: 22:07 Bed 19 Private MD: Diagnosis: Fall on same level, unspecified;Weakness;Hypokalemia;Cellulitis of left toe Presentation: 04/11 22:20 Chief complaint: EMS states: fall x 2 today. patient c/o feeling "weak and just feels me1 off". States he did hit his head, has pain in his tailbone from the fall as well. s/p CABG on February 10 but was only discharged home about a week ago from rehab. Nonhealing diabetic wound to left great toe. Peg tube present but not in use- has appt scheduled for peg removal. On EMS arrival BP was 81/53, HR 83, o2 sat 98 on room air. 22 g to LFA and gave about 0.5 liter of NS. C- collar in place for precautions by EMS. Coronavirus screen: Vaccine status: Patient reports receiving the 2nd dose of the covid vaccine. Ebola Screen: No symptoms or risks identified at this time. Initial Sepsis Screen: Does the patient meet any 2 criteria? No. Patient's initial sepsis screen is negative. Does the patient have a suspected source of infection? Yes: Skin breakdown/wound. Risk Assessment: Do you want to hurt yourself or someone else? Patient reports no desire to harm self or others. Onset of symptoms was April 11, 2023. 22:20 Method Of Arrival: EMS: [facility] 22:20 Acuity: MIRIAM 3 me1 23:43 Care prior to arrival: Cervical collar in place. Medication(s) given: Normal saline me1 infusion, 500 mL. Mechanism of Injury: Fall fell two times today while ambulating around the house. Trauma event details: Injury occurred: at home. Triage Assessment: 22:27 General: Appears uncomfortable, unkempt, well developed, well nourished, Behavior is me1 calm, cooperative, appropriate for age, Reports. 22:28 Pain: Complains of pain in back of head, tailbone and left great toe Pain does not me1 radiate. Pain currently is 8 out of 10 on a pain scale. Quality of pain is described as throbbing, Pain began suddenly, Is continuous. Neuro: Level of Consciousness is awake, alert, obeys commands, Oriented to person, place, time, situation, Appropriate for age. Cardiovascular: Capillary refill < 3 seconds Patient's skin is warm and dry. Cardiovascular: Reports s/p CABG on February 10 Respiratory: Airway is patent Respiratory effort is even, unlabored, Respiratory pattern is regular, symmetrical. GI: PEG tube in place, clamped. Site reddened. Reports peg tube is not in use and patient has an appt to remove it. Derm: Wound noted left first toe and Left first toenail Wound is diabetic foot ulcer. Injury Description: fall. c/o pain to back of head and tailbone. Historical: - Allergies: 22: No Known Allergies; me1 - PMHx: 22:27 neuropathy; CAD; depressive disorder; Diabetes - IDDM; GERD; Hypercholesterolemia; me1 Hypertension; - PSHx: 22:27 cardiac stents; Coronary artery bypass graft; me1 - Immunization history:: Adult Immunizations unknown. - Social history:: Smoking status: Patient denies any tobacco usage or history of. - Immunization history: Last tetanus immunization: - up to date. Screenin:32 [facility] ED Fall Risk Assessment (Adult) History of falling in the last 3 months, me1 including since admission Yes- fall prone (multiple falls) (3 pts) Confusion or Disorientation No (0 pts) Intoxicated or Sedated No (0 pts) Impaired Gait Yes (1 pt) Mobility Assist Device Used Yes (1 pt) Altered Elimination No (0 pt) Score/Fall Risk Level 3 or more points = High Risk Maintained a safe environment, Educated pt \\T\\ family on fall prevention, incl call for assistance when getting out of bed, Provided non-skid footwear, Hourly rounding (assess needs \\T\\ fall precautionary measures) done, Used ambulatory aids as needed (educated on \\T\\ assisted with). Abuse screen: Denies threats or abuse. Nutritional screening: No deficits noted. Tuberculosis screening: No symptoms or risk factors identified. Primary Survey: 23:34 NO uncontrolled hemorrhage observed. A: The client is awake and alert. The airway is me1 patent. The client is alert. Airway: patent, No supplemental oxygen in use on arrival. Oral cavity: clear, Trachea midline. Breathing/Chest: Spontaneous respiratory effort, equal unlabored respirations, breath sounds clear bilaterally, regular pattern, symmetrical chest rise and fall. Circulation: No external hemorrhage present. Regular and strong central pulse, skin warm/dry/normal color. Disability Pupils are equal, round, reactive to light and accommodation. Exposure/Environment: All clothing and personal items were removed. Forensic evidence collection is not deemed to be indicated at this time. Items placed in patient belonging bag. There is no evidence of uncontrolled external bleeding. Obvious injury(ies) are noted at this time: pain to back of head and tailbone from fall. A warming method has been applied: A warm blanket has been provided to the patient. Reassessment Alertness and Airway: Awake and alert. The airway is patent. Breathing: Spontaneous respiratory effort, equal unlabored respirations, breath sounds clear bilaterally, regular pattern with symmetrical chest rise and fall. Circulation: No external hemorrhage noted. Regular and strong central pulse, skin warm/dry/normal color. Disability: Pupils Pupils are equal, round, reactive to light and accomodation. Alert. Assessment: 22:32 General: See triage assessment. . me1 04/12 00:29 General: Appears in no apparent distress. uncomfortable, Behavior is calm, cooperative. lg3 Pain: Complains of pain in left first toe and back of head. Neuro: No deficits noted. Menjivar Agitation-Sedation Scale (RASS): 0 - Alert and Calm Level of Consciousness is awake, alert, obeys commands, Oriented to person, place, time, situation. Cardiovascular: No deficits noted. Denies chest pain, shortness of breath, Capillary refill < 3 seconds Clubbing of nail beds is absent JVD is absent Patient's skin is warm and dry. Respiratory: No deficits noted. Airway is patent Respiratory effort is even, unlabored, Respiratory pattern is regular, symmetrical. GI: No deficits noted. PEG tube to left upper abdomen. : No deficits noted. No signs and/or symptoms were reported regarding the genitourinary system. EENT: No deficits noted. No signs and/or symptoms were reported regarding the EENT system. Derm: Skin is intact, is healthy with good turgor, Skin is dry, Skin is normal, Skin temperature is warm Wound noted left first toe. Musculoskeletal: No deficits noted. Circulation, motion, and sensation intact. Range of motion: intact in all extremities. 01:27 Reassessment: Patient appears in no apparent distress at this time. No changes from lg3 previously documented assessment. Patient and/or family updated on plan of care and expected duration. Pain level reassessed. Patient is alert, oriented x 3, equal unlabored respirations, skin warm/dry/pink. Patient states symptoms have not improved. Pain: Pain currently is 9 out of 10 on a pain scale. 02:42 Reassessment: Patient appears in no apparent distress at this time. No changes from lg3 previously documented assessment. Patient and/or family updated on plan of care and expected duration. Pain level reassessed. Patient is alert, oriented x 3, equal unlabored respirations, skin warm/dry/pink. 03:52 Reassessment: Patient appears in no apparent distress at this time. No changes from lg3 previously documented assessment. Patient and/or family updated on plan of care and expected duration. Pain level reassessed. Patient is alert, oriented x 3, equal unlabored respirations, skin warm/dry/pink. Vital Signs: 04/11 22:20 BP 119 / 74; Pulse 82; Resp 15; Temp 98.1(O); Pulse Ox 100% ; Weight 96.16 kg; Height 5 me1 ft. 11 in. ; Pain 8/10; 04/12 00:29 BP 118 / 64; Pulse 79; Resp 16 S; Pulse Ox 100% on R/A; lg3 01:27 BP 114 / 53; Pulse 76; Resp 16 S; Pulse Ox 99% on R/A; lg3 02:42 BP 109 / 57; Pulse 74; Resp 16 S; Pulse Ox 99% on R/A; lg3 04/11 22:20 Body Mass Index 29.57 (96.16 kg, 180.34 cm) me1 04/11 22:20 Pain Scale: Adult me1 De Witt Coma Score: 04/11 23:43 Eye Response: spontaneous(4). Motor Response: obeys commands(6). Verbal Response: me1 oriented(5). Total: 15. Trauma Score (Adult): 23:43 Eye Response: spontaneous(1); Verbal Response: oriented(1); Motor Response: obeys me1 commands(2); Systolic BP: > 89 mm Hg(4); Respiratory Rate: 10 to 29 per min(4); De Witt Score: 15; Trauma Score: 12 ED Course: 11:35 Patient maintains SpO2 saturation greater than 95% on room air. me1 22:20 Patient arrived in ED. me1 22:22 Naveen Casey PA is PHCP. cp 22:22 Kenn Yap MD is Attending Physician. cp 22:27 Triage completed. me1 22:28 Arm band placed on Patient placed in an exam room. me1 22:32 Patient has correct armband on for positive identification. Bed in low position. Call me1 light in reach. Side rails up X2. Provided Education on: POC. Verbalized understanding. . 22:32 No provider procedures requiring assistance completed. Maintain EMS IV. Dressing me1 intact. Good blood return noted. Site clean \\T\\ dry. Gauge \\T\\ site: 22 gauge LFA. 22:55 Brionna Bell, RN is Primary Nurse. me1 23:02 Chest Single View XRAY In Process Unspecified. EDMS 23:02 XRAY Foot LEFT 3 View In Process Unspecified. EDMS 23:32 Troponin High Sensitivity Sent. me1 23:33 Blood Culture Adult (2) Sent. me1 23:33 CBC with Diff Sent. me1 23:33 CMP Sent. me1 23:33 Lactate w/ 2H reflex if indic. Sent. me1 23:33 Protime (+inr) Sent. me1 23:33 Ptt, Activated Sent. me1 23:33 Inserted saline lock: 22 gauge in right wrist, using aseptic technique. me1 23:33 Missed attempt(s): 20 gauge in right upper arm. me1 23:45 Thermoregulation: warm blanket given to patient. me1 04/12 00:15 Report received from KAMILLA Staton. lg3 00:19 Notified ED physician of a critical lab result(s). potassium 2.7 glucose 37. kl 00:29 Door closed. Noise minimized. Warm blanket given. lg3 00:52 CT Traumagram (Head C Spine CAP W Con) In Process Unspecified. EDMS 03:24 Anand Shannon MD is Hospitalizing Provider. cp 05:10 Patient admitted, IV remains in place. intact, No redness/swelling at site. kl Administered Medications: 04/11 23:15 Drug: fentaNYL (PF) IVP 25 mcg IVP once Route: IVP; Site: left forearm; me1 23:34 Follow up: Response: No adverse reaction; Pain is unchanged, physician notified me1 23:39 Drug: D10 in Water IVP 250 ml IVP once Route: IVP; Site: right wrist; me1 04/12 05:08 Follow up: Response: No adverse reaction 01:26 Drug: Potassium Chloride IV 20 mEq IV at calculated rate once; administer over 1-2 lg3 hours Route: IV; Rate: calculated rate; Site: right wrist; 03:45 Follow up: Response: No adverse reaction; IV Status: Completed infusion; IV Intake: lg3 100ml 01:26 Drug: NS 0.9% IV 250 ml IV at bolus once Route: IV; Rate: bolus; Site: right wrist; lg3 03:45 Follow up: IV Status: Completed infusion; IV Intake: 250ml 3 01:26 Drug: fentaNYL (PF) IVP 25 mcg IVP once Route: IVP; Site: right wrist; lg3 03:45 Follow up: Response: No adverse reaction 3 02:37 Drug: Potassium PO Effervescent Tablet 50 mEq PO once; dissolve in 4 ounces of water or lg3 juice Route: PO; 03:45 Follow up: Response: No adverse reaction lg3 03:45 Drug: vancoMYCIN IVPB 1 grams IVPB once over 2 hrs Route: IVPB; Infused Over: 2 hrs; lg3 Site: right wrist; 05:09 Follow up: Response: No adverse reaction; IV Status: Infusion continued upon admission Medication: 04/11 22:32 VIS not applicable for this client. ky1 Point of Care Testing: Blood Glucose: 11:35 Blood Glucose: 34 mg/dL; ky1 Ranges: Intake: 04/12 03:45 IV: 100ml; Total: 100ml. lg3 03:45 IV: 250ml; Total: 350ml. lg3 Outcome: 03:25 Decision to Hospitalize by Provider. cp 05:09 Admitted to Med/surg accompanied by tech, via stretcher, room 223, Report called to gelacio Davis 05:09 Condition: stable 05:09 Instructed on the need for admit, Demonstrated understanding of instructions, 05:10 Patient's length of stay in the Emergency Department was greater than 2 hours. 05:34 Patient left the ED. gelacio Signatures: Dispatcher JoseSydni Botello, RN RN Naveen Garcia PA PA cp Gibson, Lacie, RN RN lg3 Brionna Bell RN RN me1 Corrections: (The following items were deleted from the chart) 04/11 22:28 22:20 Chief complaint: EMS states: fall x 2 today. patient c/o feeling "weak and just me1 feels off". States he did hit his head, has pain in his tailbone from the fall as well. s/p CABG on February 10 but was only discharged home about a week ago from rehab. Nonhealing diabetic wound to left great toe. Peg tube present but not in use- has appt scheduled for peg removal. On EMS arrival BP was 81/53, HR 83, o2 sat 98 on room air. 22 g to LFA and gave about 0.5 liter of NS. C- collar in place for precautions by EMS. me1
[2023-04-12] MEDS ORDERED: VANCOMYCIN 1 GM/VIAL ONE (03:51)
[2023-04-12] MEDS ORDERED: ONDANSETRON 4 MG/2 ML VIAL IV PRN (03:57)
[2023-04-12] MEDS ORDERED: ACETAMINOPHEN 325 MG TABLET PO PRN (03:57)
[2023-04-12] MEDS ORDERED: NA CHLORIDE 0.9% 1,000 ML IV SCH (04:00)
--- NOTE | 2023-04-12 04:05 | P.HP ---
Certification for Inpatient Patient admitted to: Inpatient With expected LOS: >2 Midnights Practitioner: I am a practitioner with admitting privileges, knowledge of patient current condition, hospital course, and medical plan of care. Services: Services provided to patient in accordance with Admission requirements found in Title 42 Section 412.3 of the Code of Federal Regulations Patient History Date of Service: 04/12/23 Reason for admission: Infected wounds, hypotension History of Present Illness: 58-year-old male patient with medical history significant for diabetes type 2, hypertension, hyperlipidemia, coronary artery disease but status post two-vessel bypass Surgery and multiple stents, recent placement and cardiac debilitation was evaluated for episode of low blood pressure. He has wounds in the sacrum and in the left lower extremity and has been on wound care by Dr. Lopez. He presented with episode of low blood pressure and was found to have hyperemia around the leg wounds and there was concern for underlying worsening infection in the wounds. He was asked to be admitted for inpatient care secondary to infected wounds and to rule out suspicion for osteomyelitis. He did complain of discomfort in the right upper chest area but denies overt episode of dizziness, fever, chills, rigor, nausea, vomiting, diarrhea. No overt left-sided chest pain reported. Allergies No Known Allergies Allergy (Verified 04/03/19 15:38) Home Medications: Atorvastatin Calcium [Lipitor] 80 mg PO BEDTIME 04/04/19 Gabapentin [Neurontin] 600 mg PO QID 04/04/19 Furosemide [Lasix*] 80 mg PO BIDL 11/06/20 Clopidogrel Bisulfate [Plavix*] 75 mg PO DAILY 06/08/22 Escitalopram [Lexapro*] 20 mg PO DAILY 06/08/22 Insulin NPH Hum/Reg Insulin Hm [Humulin 70-30 Vial] 80 units SQ BID 06/09/22 Carvedilol [Coreg] 12.5 mg PO BID 01/13/23 Lisinopril [Zestril] 30 mg PO BID 01/13/23 - Past Medical/Surgical History Diabetic: Yes -: Hypertension -: Diabetes mellitus type 2 insulin dependent -: CAD with prior stent -: Hyperlipidemia -: Diabetic neuropathy -: Obesity -: Sleep apnea noncompliant -: CVA -: CHFunknown EF -: Stent placement x5 -: back surgery -: ble vascular sx -: Appendectomy -: Multiple debridement left great toe Psychosocial/ Personal History: Patient is - Family History Father -: Heart disease, Diabetes Mother -: Heart disease - Social History Alcohol use: No CD- Drugs: No Caffeine use: Yes Review of Systems General: Weakness, Malaise Eyes: Unremarkable ENT: Unremarkable Respiratory: Unremarkable Cardiovascular: Unremarkable Gastrointestinal: Unremarkable Genitourinary: Unremarkable Musculoskeletal: Leg Pain Integumentary: Other Neurological: Unremarkable Physical Examination - Physical Exam General: Alert, Oriented x3 HEENT: Atraumatic, Normocephalic Neck: Supple Respiratory: Normal air movement Cardiovascular: Regular rate/rhythm, Normal S1 S2 Gastrointestinal: Soft and benign Musculoskeletal: No swelling, Erythema, Tenderness Integumentary: Tenderness/swelling, Erythema, Warmth Neurological: Normal speech, Normal strength at 5/5 x4 extr - Studies Laboratory Data (last 24 hrs) 04/11/23 04/11/23 04/11/23 23:26 23:26 23:26 WBC 11.10 H Hgb 9.0 L Hct 26.7 L Plt Count 438 H PT 14.1 H INR 1.28 APTT 30.1 Sodium 135 L Potassium 2.7 L BUN 34 H Creatinine 1.39 H Glucose 37 L* Total Bilirubin 0.6 AST 10 L ALT 14 L Alkaline Phosphatase 139 H Assessment and Plan - Plan Infected leg wounds: Presentation is concerning for worsening infection in the left lower extremity. Hyperemia noted. We will have vancomycin and cefepime antibiotic dose started while awaiting blood cultures. We will continue wound care as per outpatient clinical support specialist Dr. Guzman. We will monitor cultures for adjustment of antibiotic therapy as needed. Continue as needed morphine and [place]/tylenol for pain control. Diabetes type 2: We will continue carb restricted diet and sliding scale insulin for glucose control. Long-acting insulin therapy to be continued as prescribed outpatient. History of hypertension: Presently blood pressure episode noted. We will have IV isotonic normal saline fluids started. We will monitor vital signs per unit protocol and restart antihypertensive medications once criteria is met Coronary disease: We will continue Plavix and statin therapy. Suspected chronic kidney disease versus acute kidney injury: Creatinine is elevated at 1.35 on admission. This is suspicion for chronic kidney disease. We will monitor trend of creatinine and continue hydration. We will dose medication for estimated glomerular filtration and avoid exposure to nephrotoxins. Hyperlipidemia: We will continue statin therapy Prophylaxis: Lovenox for DVT prophylaxis CODE STATUS: Full code Disposition: We will treat his multiple medical issues and he will be discharged once plan of care is finalized and he is deemed clinically stable. - Advance Directives Does patient have a Living Will: No Does patient have a Durable POA for Healthcare: No
[2023-04-12] MEDS ORDERED: MORPHINE 2 MG/ML SYR IV PRN (04:34)
[2023-04-12] MEDS ORDERED: DOCUSATE NA 100 MG CAP PO PRN (04:35)
[2023-04-12 06:04] VITALS: BMI 29.5
[2023-04-12] MEDS ORDERED: VANCOMYCIN 0.75 GM in NA CHLORIDE 0.9% 250 ML IVPB ONE (07:00)
[2023-04-12] MEDS: INSULIN REGULAR (HUMAN) 100 UNIT/ML SQ SCH ×4 (07:30→21:37)
[2023-04-12] MEDS ORDERED: VANCOMYCIN 1.5 GM in NA CHLORIDE 0.9% 500 ML IVPB SCH (09:00)
[2023-04-12] MEDS: CEFEPIME 1 GM in NA CHLORIDE 0.9% 100 ML IV SCH ×2 (09:05→21:37)
[2023-04-12] MEDS: ENOXAPARIN 40 MG/0.4 ML SQ SCH (09:06)
[2023-04-12] MEDS: HYDROCODONE/APAP 7.5/325 MG TAB PO PRN ×2 (11:03→21:38)
[2023-04-12] MEDS ORDERED: D5 0.9 NS 1,000 ML IV ONE (11:58)
[2023-04-12] MEDS: D5 0.9 NS 1,000 ML IV SCH (12:00)
--- NOTE | 2023-04-12 16:50 | RAD REPORT ---
EXAM DESCRIPTION: RAD - Chest Single View - 04/11/2023 11:00 pm CLINICAL HISTORY: Fall TECHNIQUE: AP chest COMPARISON: June 07, 2022 FINDINGS: CHEST: Cardiac silhouette is mildly enlarged. Status post median sternotomy. Poorly defined airspace disease in the left midlung and left lung base and mild mediastinal shift to the left suggesting volume loss. Lung contusion cannot be excluded given the history of trauma. No evidence of pneumothorax. No evidence is seen of pleural effusions. Old bilateral rib fractures. Follow-up PA and lateral radiographs may be helpful in further evaluation. IMPRESSION: 1. Poorly defined airspace disease in the left midlung and left lung base and mild med iastinal shift to the left suggesting volume loss. Lung contusion cannot be excluded given the histor y of trauma. No evidence of pneumothorax. 2. Old bilateral rib fractures. 3. Follow-up PA and lateral radiographs may be helpful in further evaluation. Due to temporary technical issues with the PACS/Fluency reporting system, reports are being signed by the in house radiologists without review as a courtesy to insure prompt reporting. The interpreting radiologist is fully responsible for the content of the report.
--- NOTE | 2023-04-12 16:53 | RAD REPORT ---
EXAM DESCRIPTION: CT - Head C Spine Cap W Con - 04/12/2023 6:42 am CLINICAL HISTORY: Fall TECHNIQUE: Contiguous axial CT images obtained through the brain without IV contrast. Coronal and sa gittal reformatted images were provided. This exam was performed according to our departmental dose-optimization program, which includes autom ated exposure control, adjustment of the mA and/or kV according to patient size and/or use of iterati ve reconstruction technique. COMPARISON: None available for comparison FINDINGS: Brain: No significant white matter changes. No focal mass effect. Alvarado-white matter differ entiation is within normal limits. No hemorrhage. Ventricles: No ventriculomegaly or midline shift. Extra-axial spaces: No extra-axial collection or hemorrhage. Paranasal sinuses and mastoid air cells: Well-aerated Bones: Unremarkable Soft tissues: Unremarkable IMPRESSION: No evidence of acute intracranial pathology. EXAM DESCRIPTION: Head C Spine Cap W Con CLINICAL HISTORY: Fall TECHNIQUE: Contiguous axial CT images obtained through the cervical spine without IV contrast. Cor onal and sagittal reformatted images also provided. This exam was performed according to our departmental dose-optimization program, which includes autom ated exposure control, adjustment of the mA and/or kV according to patient size and/or use of iterati ve reconstruction technique. COMPARISON: None available for compariso FINDINGS: Vertebra: No acute fracture or subluxation. Degenerative changes: Multilevel facet joint arthropathy. Small disc osteophyte complex at C2-C3. Lucency within the C3 vertebral body which may represent subc hondral cyst. Prevertebral soft tissues: Unremarkable IMPRESSION: No acute cervical spine fracture. IPROCEDURE: Head C Spine Cap W Con CLINICAL HISTORY: Fall TECHNIQUE: Contiguous axial images obtained through the chest , abdomen and pelvis following the une ventful administration of IV contrast. Coronal and sagittal reformatted images provided. This exam was performed according to our departmental dose-optimization program, which includes autom ated exposure control, adjustment of the mA and/or kV according to patient size and/or use of iterati ve reconstruction technique. COMPARISON: No prior exams provided for comparison. FINDINGS: Lungs: No focal consolidation. Airways are patent. Atelectatic changes in the left lung ba se. Pleura: No effusion. No pneumothorax. Heart and pericardium: Cardiomegaly. No pericardial effusion. Mediastinum and jimmy: No pathologically enlarged lymph nodes. Lower neck and chest wall: Status post median sternotomy with peristernal thickening and stranding, l ikely postsurgical. A small retrosternal hematoma cannot be excluded. Vessels: Unremarkable Bones: Old left clavicular and bilateral rib cage fractures No evidence of acute rib fracture. Liver: Unremarkable Gallbladder and biliary system: Unremarkable Pancreas: Unremarkable Spleen: Unremarkable Adrenals: Unremarkable Kidneys: No evidence of urolithiasis or obstructive uropathy. Gl : Gastrostomy tube in place. No obstruction. No appreciable mucosal thickening. Appendix: No findings to suggest acute appendicitis. Urinary bladder: Unremarkable Reproductive: Unremarkable as visualized Lymph nodes: No pathologically enlarged lymph nodes. Peritoneum: No focal fluid collection. No free air. Vessels: No abdominal aortic aneurysm. Abdominal wall: Nonspecific subcutaneous thickening along the left flank with indistinctness of soft tissue planes, which in a setting of trauma may represent subcutaneous contusion. Bones: No acute pelvic or hip fractures. IMPRESSION: 1. Status post median sternotomy with peristernal thickening and stranding, likely pos tsurgical. A small retrosternal hematoma cannot be excluded. 2. Nonspecific subcutaneous thickening along the left flank with indistinctness of soft tissue plan es, which in a setting of trauma may represent subcutaneous contusion. 3. No other evidence of acute intrathoracic, abdominal or pelvic injury. Electronically signed by: Killian Lucas MD 04/12/2023 1:19 AM CDT Due to temporary technical issues with the PACS/Fluency reporting system, reports are being signed by the in house radiologists without review as a courtesy to insure prompt reporting. The interpreting radiologist is fully responsible for the content of the report.
--- NOTE | 2023-04-12 16:57 | RAD REPORT ---
EXAM DESCRIPTION: RAD - Foot Left 3 View - 04/11/2023 11:00 pm CLINICAL HISTORY: Left great toe pain COMPARISON: None. FINDINGS: 3 views of the left foot. Mild motion artifact. Nondisplaced fracture involving the distal aspect of the first proximal phalanx. Atherosclerotic vascular calcification. Osteopenia. IMPRESSION: Nondisplaced fracture involving the distal aspect of the first proximal phalanx. Electronically signed by: Jesus Omer 04/11/2023 11:28 PM CDT Due to temporary technical issues with the PACS/Fluency reporting system, reports are being signed by the in house radiologists without review as a courtesy to insure prompt reporting. The interpreting radiologist is fully responsible for the content of the report.
[2023-04-12] MEDS ORDERED: VANCOMYCIN 1.75 GM in NA CHLORIDE 0.9% 500 ML IVPB SCH (23:00)
[2023-04-13] MEDS: VANCOMYCIN 1.75 GM in NA CHLORIDE 0.9% 500 ML IVPB SCH (03:46)
--- NOTE | 2023-04-13 07:53 | EKG ---
Test Date: 2023-04-11 Test Time: 22:43:51 Paradi Operator: KHUSHI MEASUREMENT RESULTS: Intervals: Rate: 83 SC: 156 QRSD: 102 QT: 462 QTc: 542 [place]: P: 72 SC: 156 QRS: 53 T: 74 INTERPRETIVE STATEMENTS: Normal sinus rhythm Nonspecific T wave abnormality Abnormal ECG Compared to ECG 01/15/2023 14:28:58 T-wave abnormality now present Sinus tachycardia no longer present ST (T wave) deviation no longer present Electronically Signed On 04-13-23 07:51:01 CDT by Keyur Bonds
[2023-04-13] MEDS: ENOXAPARIN 40 MG/0.4 ML SQ SCH (08:59)
[2023-04-13] MEDS: INSULIN REGULAR (HUMAN) 100 UNIT/ML SQ SCH ×4 (09:00→22:13)
[2023-04-13] MEDS: CEFEPIME 1 GM in NA CHLORIDE 0.9% 100 ML IV SCH ×2 (09:00→20:28)
[2023-04-13] MEDS: D5 0.9 NS 1,000 ML IV SCH (09:02)
[2023-04-13] MEDS: HYDROCODONE/APAP 7.5/325 MG TAB PO PRN (15:10)
[2023-04-13] MEDS ORDERED: QUETIAPINE 100MG TAB PO SCH (21:00)
[2023-04-14] MEDS: D5 0.9 NS 1,000 ML IV SCH (04:00)
[2023-04-14] MEDS: VANCOMYCIN 1.75 GM in NA CHLORIDE 0.9% 500 ML IVPB SCH (06:13)
[2023-04-14] MEDS: CEFEPIME 1 GM in NA CHLORIDE 0.9% 100 ML IV SCH (08:40)
[2023-04-14] MEDS: ENOXAPARIN 40 MG/0.4 ML SQ SCH (08:41)
[2023-04-14] MEDS: INSULIN REGULAR (HUMAN) 100 UNIT/ML SQ SCH ×2 (08:41→12:18)
[2023-04-14 11:17] VITALS: O2SAT 93
[2023-04-14 12:22] VITALS: BP 120/60; TEMP 97.1
[2023-04-14] MEDS ORDERED: SMZ./TMP. 800/160 MG TABLET PO SCH (13:00)
--- NOTE | 2023-04-14 16:47 | CON ---
Date of Consultation: 04/14/2023 Reason For Service: Diabetic foot ulcers. History Of Present Illness: This is the case of a 58-year-old patient, known by us due to history of peripheral vascular disease and chronic wound treatment [facility], brought here several months ago due to chest pain, found to have heart disease. He has been spen ding all this time on that problem. He said he spent about 70 days in the hospital, released about 2 weeks ago and then came here again after he fell and then since he was here, they noticed diabetic u lcers and they asked surgical consult. Those ulcers have been there for a long time. He said the sil fernandes has been treating them, but they have not improved. When we did a circulation check on him se veral months ago, we noticed there were severe diminishing pulses in that area. He has an appointmen t to increase the circulation in the bilateral lower extremities, but obviously all this heart issues happened so we have to review to see what was done and what was still pending to improve the circula tion. Past Medical History: Hypertension, diabetes, coronary artery disease, CVAs, congestive heart failur e, diabetic neuropathy, sleep apnea. Past Surgical History: Include back surgery, stent placement x5, he had also double bypass in heart, appendectomy, multiple debridements of ulcers in the lower extremities. Family History: Diabetes. Social History: He does not smoke. He does not drink alcohol. Review of Systems: He feels great right now, he wants to go home. He says at 2 o'clock he is going to meet his mom at h ome and he needs to be out of here. He has no chest pain. No shortness of breath. No chest pain ri ght now. The ulcers are chronically open. Physical Examination: General: The patient is awake, alert. HEENT: Pupils are equal and reactive. Anicteric. Neck: Supple. Chest: Clear. Heart: S1, S2. Abdomen: Soft and depressible. Extremities: Left upper extremity, the patient has a PICC line. Bilateral lower extremities, the pa tient has peripheral pulses diminished. We knew that as well, we will [facility]. There is no cyanosis, but he has right heel diabetic ulcer with fibrin present. Left foot also diabetic ulcer, specifically the first toe diabetic ulcer with fibrin present. No purulent discharge seen at this moment. Blood work was reviewed. Assessment: Diabetic ulcer, bilateral feet. Plan: He wants to go home today. He [facility] Wednesday [facility] [place]. He is going to call to make the appointment for Wednesday. At that moment, he will decid e if he is just going to do the amputation of the first toe since it has been there for months and mo nths without healing. I believe we are going to need blessing from the Cardiology Department before we proceed. In the meantime, he has Santyl at home. He is going to start using until he sees us on Wednesday and then we will proceed with other plans and ideas we can do for his ulcers. YANELI/NAVEEN Voice ID: [id number] Report ID: [id number]
[2023-04-15] MEDS ORDERED: VANCOMYCIN 1.5 GM in NA CHLORIDE 0.9% 500 ML IVPB SCH (09:00)
== END 2023-04-14 15:00 | disposition home or self-care (01) | DRG 603 ==
LOC: ER 22:07 → ERHOLD 04-12 03:57 → 2ND 04-12 05:11 → OBSVTOIN 04-13 13:26
PROVIDERS: ADMIT Internal Medicine Nephrology; ATTEND Hospitalist
DX: L03.032 Cellulitis of left toe (principal); I10 Essential (primary) hypertension; E87.6 Hypokalemia; E78.00 Pure hypercholesterolemia, unspecified; E11.40 Type 2 diabetes mellitus with diabetic neuropathy, unspecified; E11.51 Type 2 diabetes mellitus with diabetic peripheral angiopathy without gangrene; E11.621 Type 2 diabetes mellitus with foot ulcer; L97.529 Non-pressure chronic ulcer of other part of left foot with unspecified severity; K21.9 Gastro-esophageal reflux disease without esophagitis; I25.10 Atherosclerotic heart disease of native coronary artery without angina pectoris; Z79.4 Long term (current) use of insulin; Z95.1 Presence of aortocoronary bypass graft; Z95.5 Presence of coronary angioplasty implant and graft; Z79.02 Long term (current) use of antithrombotics/antiplatelets; Z86.73 Personal history of transient ischemic attack (TIA), and cerebral infarction without residual deficits; Z90.49 Acquired absence of other specified parts of digestive tract; Z79.899 Other long term (current) drug therapy; Z95.810 Presence of automatic (implantable) cardiac defibrillator; W18.30XA Fall on same level, unspecified, initial encounter; Y93.01 Activity, walking, marching and hiking; Y92.9 Unspecified place or not applicable; Y99.9 Unspecified external cause status
CPT/HCPCS: 36415; 70450; 71045; 71260; 72125; 74177; 80053; 80202; 81003; 82947; 83605; 84484; 85025; 85610; 85730; 87040; 87070; 87077; 87186; 87205; 93005; 99285; G0378; J0692; J1650; J1815; J2270; J3010; J3480; J7030; J7040; J7042; J7050; Q9967

== ENCOUNTER 2023-05-10 07:46 | Emergency (ER) | payer OTHER ==
--- OUTSIDE RECORDS SUMMARY | 2023-05-10 08:06 | XMS REPORT | Continuity of Care Document ---
:1965 Author Organization [facility] t Address [address] [place] [address] Care Team Providers Name Role Phone Michael Grullon Primary Care Physician [phone] Michael Grullon Attending Clinician Unavailable AUDELIA WINN Attending Clinician Unavailable SHAINA YBARRA Attending Clinician Unavailable DOMINGO ARGUETA Attending Clinician Unavailable BARON POPE Attending Clinician Unavailable DANIEL QUIÑONES Attending Clinician Unavailable ROBB BOLTON Attending Clinician Unavailable FACUNDO TEJADA Attending Clinician Unavailable MALCOLM BRANDT Attending Clinician Unavailable MAVIS GOTTLIEB Attending Clinician Unavailable MICHELLE MUNOZ Attending Clinician Unavailable PAIGE, SUBHASIS Attending Clinician Unavailable ZOE ALCOCER Attending Clinician Unavailable AURELIA PALMA Attending Clinician Unavailable BALA NELSON Attending Clinician Unavailable SCHUYLER SCHMID Attending Clinician Unavailable DUSTIN ARNOLD Attending Clinician Unavailable RO GRAYSON Attending Clinician Unavailable CELINA QUISPE Attending Clinician Unavailable SUMAYA MCKEON Attending Clinician Unavailable MONIQUE ALICEA Attending Clinician Unavailable ALEJO ANDINO Attending Clinician Unavailable ALEJO ANDINO Attending Clinician Unavailable EMILIANO HOLCOMB Attending Clinician Unavailable Layla Torres MD Attending Clinician Alejo Andino MD Attending Clinician Doctor Unassigned, [place] Attending Clinician Unavailable Keyur Bonds Attending Clinician Unavailable Michael Grullon Attending Clinician Radiology Attending Clinician Unavailable RADIOLOGY Attending Clinician Unavailable FACUNDO TEJADA Admitting Clinician Unavailable Michael Grullon Admitting Clinician Unavailable Keyur Bonds Admitting Clinician Unavailable Payers Payer Name Policy Type Policy Number Effective Date Expiration Date S [id number] [employer] MEDICARE PPO [id number] 2022 00:00:00 [employer]IGNA MEDICARE HMO [id number] 2022 00:00:00 [facility] [id number] 2022 00:00:00 [id number] 2021 2022 Common [facility] 00:00:00 00:00:00 [facility] Problems Condition Condition Condition Status Onset Resolution Last Treating Co mments Source Name Details Category Date Date Treatment Clinician Date Dyslipidem Dyslipidem Disease Active 2015-06 U denisse ia ia 1-16 ity of 00:00: [address] Diabetes Diabetes Disease Active Unive rs mellitus, mellitus, 03-05 ity of insulin insulin 00:00: [place] dependent dependent 00 Medi marck (IDDM), (IDDM), Branch uncontroll uncontroll ed ed Retinopath Retinopath Disease Active U denisse y y 03-05 ity of 00:00: [place] [facility] Neuropathy Neuropathy Disease Active U nivers 6-30 ity of 00:00: [place] [address] Medical Branch Muscle Muscle Disease Active Univers cramps cramps 6-30 ity of 00:00: [address] Branch Obstructiv Obstructiv Problem C ommon e sleep e sleep Spirit apnea apnea - [facility] Erectile Erectile Problem Commo n dysfunctio dysfunctio Sp marissa n n - CHI [facility] [id number] History of Problem Co mmon CVA Spirit (cerebrova - CHI scular St accident) [facility] Medical [facility] deficits [id number] Dog bite, Problem Com mon subsequent [facility] encounter - [facility] [id number] Wound of Problem Comm on left lower Spirit extremity, - CHI subsequent [facility] [id number] HTN Problem Common (hypertens Spirit ion), - CHI benign [facility] Insomnia Insomnia Problem Commo n Spirit - CHI [facility] [id number] Venous Problem Common insufficie Spirit ncy of - [facility] both lower [facility] [id number] Other Problem Common chronic Spirit pain - [facility] [id number] 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 [id number] Chronic Problem Commo n diastolic Spirit congestive - [facility] heart [facility] Hearing Hearing Problem Common loss deficit [facility] [id number] Tubular Problem Commo n adenoma of Spirit colon [facility] [id number] Local Problem Common infection [facility] of the [facility] tissue[facility] Medica l unspecifie Center d [id number] Cellulitis Problem C ommon [id number] of left Spirit lower - CHI extremity [facility] Left sided Left sided Problem C ommon ulcerative colitis Spiri t colitis with - CHI complicati [facility] [id number] Moderate Problem Commo n major Spirit depression - CHI , single [facility] [id number] PAD Problem Common (periphera Spirit l artery - CHI disease) [facility] [id number] Pain in Problem Comm on [id number] left Spirit shoulder - CHI [facility] [id number] Spinal Problem Common stenosis, Spirit lumbosacra - CHI l region [facility] Hyperglyce Type 2 Problem Commo n bryan due to diabetes Spir it type 2 mellitus - CHI diabetes with mellitus hyperglyce [facility], Medical unspecifie Center d whether intermediate insulin use [id number] Type 1 Problem Common diabetes Spirit mellitus - CHI with other [facility] y Medical complicati Center on Atheroscle Atheroscle Problem C ommon rotic rosis of [facility] 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 [id number] Body mass Problem Com mon index [facility] [BMI] - [facility] 38.0-38.9, [facility] [id number] Left elbow Problem Com mon pain [facility] Sciatica Sciatic Problem Common pain, left [facility] [id number] Acute pain Problem Com mon of left [facility] shoulder [facility] [id number] Chronic Problem Commo n kidney Spirit disease, - [facility] [id number] Type 2 Problem Commo n 05 diabetes Spirit mellitus - CHI with diabetic [facility] chronic Medical kidney Center disease Peripheral Peripheral Problem C ommon neuropathy neuropathy Sp marissa - [facility] Chronic Chronic Problem Common back pain back pain Spir it - CHI [facility] Hyperlipid Hyperlipid Problem C ommon emia emia [facility] Mixed Depression Problem Commo n anxiety with Spirit and anxiety - CHI depressive [facility] Allergies, Adverse Reactions, Alerts Allergy Allergy Status Severity Reaction(s) Onset Inactive Treating Comm ents Source Name Type Date Date Clinician VANCOMYC Allergy Active High Hives [facility] 02-[facility] 00:00: Medical 00 Center No Known DA Active U [facility] Allergie 07-20 Clear s 00:00: Grimaldo [address] [place] [address] NO KNOWN Allergy Active [facility] ALLERGIE S NO KNOWN Drug Active Univers ALLERGIE Class [facility] Social History Social Habit Start Date Stop Date Quantity Comments Source History of Tobacco Common Spirit - Use [facility] Sexual orientation Univer [facility] History of Social 2022-10-05 2022-10-05 Univers ity of function 00:00:00 00:00:00 [facility] Exposure to 2022-09-24 2022-10-04 Not sure University of SARS-CoV-2 (event) 00:00:00 17:21:00 [facility] Alcohol intake 2017-10-10 2017-10-10 Current University of 00:00:00 00:00:00 non-drinker of [facility] alcohol Branch (finding) Tobacco use and 2017-09-21 2017-09-21 Smokeless Universit y of exposure 00:00:00 00:00:00 tobacco non-user [facility] dical [place] Sex Ass[birth year] At [birth year] [facility] 00:00:00 00:00:00 Smoking Status Start Date Stop Date Source Tobacco smoking [facility] Never Smoker Common Spirit - [facility] Medications Ordered Filled Start Stop Current Ordering [...] :00 daily. Medical Branch carBAMazepi 2022-0 Yes [id number] 200mg Take 1 Univers ne 200 mg 4-24 tablet by ity o f tablet 00:00: mouth [place] 00 every 12 Medical (twelve) Branch hours. carBAMazepi 2022-0 Yes [id number] 200mg Take 1 Univers ne 200 mg 4-24 tablet by ity o f tablet 00:00: mouth [place] 00 every 12 Medical (twelve) Branch hours. carBAMazepi 2022-0 Yes [id number] 200mg Take 1 Univers ne 200 mg 4-24 tablet by ity o f tablet 00:00: mouth [place] 00 every 12 Medical (twelve) Branch hours. carBAMazepi 2022-0 Yes [id number] 200mg Take 1 Univers ne 200 mg 4-24 tablet by ity o f tablet 00:00: mouth [place] 00 every 12 Medical (twelve) Branch hours. FreeStyle FreeStyle 3-0 No FreeStyle Hunter 2 Hunter 2 2-08 [place] 2 [place] 00:[place]: [place] - 00 FreeStyle FreeStyle 2023-0 No FreeStyle Hunter 2 Hunter 2 2-08 Hunter 2 Sensor - Sensor - 00:00: Sensor - 00 FreeStyle FreeStyle 2023-0 No FreeStyle Hunter 2 Hunter 2 2-08 Hunter 2 Sensor - Sensor - 00:00: Sensor - 00 FreeStyle FreeStyle 2023-0 No FreeStyle [place] 2 Hunter 2 2-08 [place] 2 [place] - 00:00: [place] - 00 Alcohol Alcohol 2022-0 No Alcohol [...] pirit one) one) 00:00: - CHI 00 [facility] Kenalog Kenalog 2021-0 No 40mg Common (Triamcinol (Triamcinol 7-20 S pirit one) one) 00:00: - CHI 00 [facility] Kenalog Kenalog 2021-0 No 40mg Common (Triamcinol (Triamcinol 7-20 S pirit one) one) 00:00: - CHI 00 [facility] Kenalog Kenalog 0 No 40mg Common (Triamcinol (Triamcinol 7-20 S pirit one) one) 00:00: - CHI 00 [facility] Kenalog Kenalog 0 No 40mg Common (Triamcinol (Triamcinol 7-20 S pirit one) one) 00:00: - CHI 00 [facility] Kenalog Kenalog 2021-0 No 40mg Common (Triamcinol (Triamcinol 7-20 S pirit one) one) 00:00: - CHI 00 [facility] Kenalog Kenalog 2021-0 No 40mg Common (Triamcinol (Triamcinol 7-20 S pirit one) one) 00:00: - CHI 00 [facility] Kenalog Kenalog 2021-0 No 40mg Common (Triamcinol (Triamcinol 7-20 S pirit one) one) 00:00: - CHI 00 [facility] Kenalog Kenalog 0 No 40mg Common (Triamcinol (Triamcinol 7-20 S pirit one) one) 00:00: - CHI 00 [facility] Kenalog Kenalog 2021-0 No 40mg Common (Triamcinol (Triamcinol 7-20 S pirit one) one) 00:00: - CHI 00 [facility] Kenalog Kenalog 2021-0 No 40mg Common (Triamcinol (Triamcinol 7-20 S pirit one) one) 00:00: - CHI 00 [facility] Kenalog Kenalog 2021-0 No 40mg Common (Triamcinol (Triamcinol 7-20 S pirit one) one) 00:00: - CHI 00 [facility] Kenalog Kenalog 2021-0 No 40mg Common (Triamcinol (Triamcinol 7-20 S pirit one) one) 00:00: - CHI 00 [facility] Kenalog Kenalog 2021-0 No 40mg Common (Triamcinol (Triamcinol 7-20 S pirit one) one) 00:00: - CHI 00 [facility] Kenalog Kenalog 2021-0 No 40mg Common (Triamcinol (Triamcinol 7-20 S pirit one) one) 00:00: - CHI 00 [facility] Kenalog Kenalog 2021-0 No 40mg Common (Triamcinol (Triamcinol 7-20 S pirit one) one) 00:00: - CHI 00 [facility] Kenalog Kenalog 2021-0 No 40mg Common (Triamcinol (Triamcinol 7-20 S pirit one) one) 00:00: - CHI 00 [facility] Abalog Kenalog 2021-0 No 40mg Common (Triamcinol (Triamcinol 7-20 S pirit one) one) 00:00: - CHI 00 [facility] Kenalog Kenalog 2021-0 No 40mg Common (Triamcinol (Triamcinol 7-20 S pirit one) one) 00:00: - CHI 00 [facility] Kenalog Kenalog 2021-0 No 40mg Common (Triamcinol (Triamcinol 7-20 S pirit one) one) 00:00: - CHI 00 [facility] HumuLIN HumuLIN 2021-0 No BID [...] 00 31G X 1 ML 1 ML 10/27" 1 ML HumuLIN HumuLIN 2022-0 No BID HumuLIN 70/30 70/30 7- 70/30 (70-30) 100 (70-30) 100 00:00: (70-30) UNIT/ML UNIT/ML 00 100 UNIT/ML Insulin Insulin 2022-0 No Insulin Syringe-Nee Syringe-Nee 12-23 Syringe-Ne dle U-100 dle U-100 00:00: edle U-100 31G X 5/16" 31G X 16" 00 31G X 1 ML 1 ML 10/27" 1 ML HumuLIN HumuLIN 2022-0 No BID [...] edle U-100 31G X 5/16" 31G X 16" 00 31G X 1 ML 1 ML 16" 1 ML Insulin Insulin 2021-0 No Insulin Syringe-Nee Syringe-Nee 7-12 Syringe-Ne dle U-100 dle U-100 00:00: edle U-100 31G X 5/16" 31G X 16" 00 31G X 1 ML 1 ML 16" 1 ML Insulin Insulin 2021-0 No Insulin Syringe-Nee Syringe-Nee -12 Syringe-Ne dle U-100 dle U-100 00:00: edle U-100 31G X 5/16" 31G X 16" 00 31G X 1 ML 1 ML 16" 1 ML Insulin Insulin 2021-0 No Insulin Syringe-Nee Syringe-Nee -12 Syringe-Ne dle U-100 dle U-100 00:00: edle U-100 31G X 5/16" 31G X 16" 00 31G X 1 ML 1 ML 10/27" 1 ML Insulin Insulin 2021-0 No Insulin Syringe-Nee Syringe-Nee 7-12 Syringe-Ne dle U-100 dle U-100 00:00: edle U-100 31G X 5/16" 31G X 16" 00 31G X 1 ML 1 ML 10/27" 1 ML Insulin Insulin 2021-0 No Insulin [...] dle U-100 00:00: edle U-100 31G X 16" 31G X 10/27" 00 31G X 1 ML 1 ML 10/27" 1 ML Lidocaine Lidocaine 2-0 No 10mg Com 07-14 Spirit 00:00: - CHI 00 [facility] Kenalog Kenalog 2-0 No 40mg Common (Triamcinol (Triamcinol 1-31 S pirit one) one) 00:00: - CHI 00 [facility] Lidocaine Lidocaine 2-0 No 10mg Com 07-14 Spirit 00:00: - CHI 00 [facility] Kenalog Kenalog 2-0 No 40mg Common (Triamcinol (Triamcinol 1-31 S pirit one) one) 00:00: - CHI [facility] Lidocaine Lidocaine 2-0 No 10mg Com 07-14 Spirit 00:00: - CHI [facility] Kenalog Kenalog 2-0 No 40mg Common (Triamcinol (Triamcinol 1-31 S pirit one) one) 00:00: - CHI [facility] Lidocaine Lidocaine 2-0 No 10mg Com 07-14 Spirit 00:00: - CHI 00 [facility] Kenalog Kenalog 2-0 No 40mg Common (Triamcinol (Triamcinol 1-31 S pirit one) one) 00:00: - CHI 00 [facility] Lidocaine Lidocaine 2-0 No 10mg Com 07-14 Spirit 00:00: - CHI 00 [facility] Kenalog Kenalog 2-0 No 40mg Common (Triamcinol (Triamcinol 1-31 S pirit one) one) 00:00: - CHI 00 [facility] Lidocaine Lidocaine 2022-0 No 10mg Com 07-14 Spirit 00:00: - CHI [facility] Kenalog Kenalog 2-0 No 40mg Common (Triamcinol (Triamcinol 1-31 S pirit one) one) 00:00: - CHI [facility] Lidocaine Lidocaine 2022-0 No 10mg Com 07-14 Spirit 00:00: - CHI [facility] Kenalog Kenalog 2-0 No 40mg Common (Triamcinol (Triamcinol 1-31 S pirit one) one) 00:00: - CHI 00 [facility] Lidocaine Lidocaine 2-0 No 10mg Com 07-14 Spirit 00:00: - CHI [facility] Kenalog Kenalog 2-0 No 40mg Common (Triamcinol (Triamcinol 1-31 S pirit one) one) 00:00: - CHI [facility] Lidocaine Lidocaine 2-0 No 10mg Com 07-14 Spirit 00:00: - CHI [facility] Kenalog Kenalog 2-0 No 40mg Common (Triamcinol (Triamcinol 1-31 S pirit one) one) 00:00: - CHI [facility] Lidocaine Lidocaine 2-0 No 10mg Com 07-14 Spirit 00:00: - CHI [facility] Kenalog Kenalog 2-0 No 40mg Common (Triamcinol (Triamcinol 1-31 S pirit one) one) 00:00: - CHI [facility] Lidocaine Lidocaine 2-0 No 10mg Com 07-14 Spirit 00:00: - CHI [facility] Kenalog Kenalog 2-0 No 40mg Common (Triamcinol (Triamcinol 1-31 S pirit one) one) 00:00: - CHI [facility] Lidocaine Lidocaine 2-0 No 10mg Com 07-14 Spirit 00:00: - CHI 00 [facility] Kenalog Kenalog 2-0 No 40mg Common (Triamcinol (Triamcinol 1-31 S pirit one) one) 00:00: - CHI [facility] Lidocaine Lidocaine 2022-0 No 10mg Com 07-14 Spirit 00:00: - CHI 00 [facility] Kenalog Kenalog 2-0 No 40mg Common (Triamcinol (Triamcinol 1-31 S pirit one) one) 00:00: - CHI [facility] Lidocaine Lidocaine 2022-0 No 10mg Com 07-14 Spirit 00:00: - CHI 00 [facility] Kenalog Kenalog 2-0 No 40mg Common (Triamcinol (Triamcinol 1-31 S pirit one) one) 00:00: - CHI 00 [facility] Lidocaine Lidocaine 2-0 No 10mg Com 07-14 Spirit 00:00: - CHI 00 [facility] Kenalog Kenalog 2-0 No 40mg Common (Triamcinol (Triamcinol 1-31 S pirit one) one) 00:00: - CHI 00 [facility] Lidocaine Lidocaine 2-0 No 10mg Com 07-14 Spirit 00:00: - CHI 00 [facility] Kenalog Kenalog 2021-0 No 40mg Common (Triamcinol (Triamcinol 1-31 S pirit one) one) 00:00: - CHI [facility] Lidocaine Lidocaine 2-0 No 10mg Com 07-14 Spirit 00:00: - CHI 00 [facility] Kenalog Kenalog 2021-0 No 40mg Common (Triamcinol (Triamcinol 1-31 S pirit one) one) 00:00: - CHI 00 [facility] Lidocaine Lidocaine 2-0 No 10mg Com 07-14 Spirit 00:00: - CHI [facility] Kenalog Kenalog 2-0 No 40mg Common (Triamcinol (Triamcinol 1-31 S pirit one) one) 00:00: - CHI [facility] Lidocaine Lidocaine 2-0 No 10mg Com 07-14 Spirit 00:00: - CHI 00 [facility] Kenalog Kenalog 2-0 No 40mg Common (Triamcinol (Triamcinol 1-31 S pirit one) one) 00:00: - CHI [facility] Lidocaine Lidocaine 2-0 No 10mg Com 07-14 Spirit 00:00: - CHI [facility] Kenalog Kenalog 2-0 No 40mg Common (Triamcinol (Triamcinol 1-31 S pirit one) one) 00:00: - CHI 00 [facility] gadoteridol 2019-1 2020- No .2mL/kg 0.2 mL/kg, Univers (PROHANCE-1 0-11 04- Intravenou i ty of 5 mL) 15:45: 17:18 s, ONCE, 1 [place] injection 00 :00 dose, Emma Medic al 0.2 mL/kg 04/11/20 Branch at 1045, Routine Kenalog Kenalog 2020-0 No 40mg Common (Triamcinol (Triamcinol 3-24 S pirit one) one) 00:00: - CHI 00 [facility] Kenalog Kenalog 2020-0 No 40mg Common (Triamcinol (Triamcinol 3-24 S pirit one) one) 00:00: - CHI 00 [facility] Kenalog Kenalog 2020-0 No 40mg Common (Triamcinol (Triamcinol 3-24 S pirit one) one) 00:00: - CHI 00 [facility] Kenalog Kenalog 2020-0 No 40mg Common (Triamcinol (Triamcinol 3-24 S pirit one) one) 00:00: - CHI 00 [facility] Kenalog Kenalog 2020-0 No 40mg Common (Triamcinol (Triamcinol 3-24 S pirit one) one) 00:00: - CHI 00 [facility] Kenalog Kenalog 2020-0 No 40mg Common (Triamcinol (Triamcinol 3-24 S pirit one) one) 00:00: - CHI 00 [facility] Kenalog Kenalog 2020-0 No 40mg Common (Triamcinol (Triamcinol 3-24 S pirit one) one) 00:00: - CHI 00 [facility] Kenalog Kenalog 2020-0 No 40mg Common (Triamcinol (Triamcinol 3-24 S pirit one) one) 00:00: - CHI 00 [facility] Kenalog Kenalog 2020-0 No 40mg Common (Triamcinol (Triamcinol 3-24 S pirit one) one) 00:00: - CHI 00 [facility] Kenalog Kenalog 2020-0 No 40mg Common (Triamcinol (Triamcinol 3-24 S pirit one) one) 00:00: - CHI 00 [facility] Kenalog Kenalog 2020-0 No 40mg Common (Triamcinol (Triamcinol 3-24 S pirit one) one) 00:00: - CHI 00 [facility] Kenalog Kenalog 2020-0 No 40mg Common (Triamcinol (Triamcinol 3-24 S pirit one) one) 00:00: - CHI 00 [facility] Kenalog Kenalog 2020-0 No 40mg Common (Triamcinol (Triamcinol 3-24 S pirit one) one) 00:00: - CHI 00 [facility] Kenalog Kenalog 2020-0 No 40mg Common (Triamcinol (Triamcinol 3-24 S pirit one) one) 00:00: - CHI 00 [facility] Kenalog Kenalog 2020-0 No 40mg Common (Triamcinol (Triamcinol 3-24 S pirit one) one) 00:00: - CHI 00 [facility] Kenalog Kenalog 2020-0 No 40mg Common (Triamcinol (Triamcinol 3-24 S pirit one) one) 00:00: - CHI 00 [facility] Kenalog Kenalog 2020-0 No 40mg Common (Triamcinol (Triamcinol 3-24 S pirit one) one) 00:00: - CHI 00 [facility] Kenalog Kenalog 2020-0 No 40mg Common (Triamcinol (Triamcinol 3-24 S pirit one) one) 00:00: - CHI 00 [facility] Kenalog Kenalog 2020-0 No 40mg Common (Triamcinol (Triamcinol 3-24 S pirit one) one) 00:00: - CHI 00 [facility] Kenalog Kenalog 2020-0 No 40mg Common (Triamcinol (Triamcinol 3-24 S pirit one) one) 00:00: - CHI 00 [facility] Novolin R Novolin R 2019-1 Yes Michael per C ommon 104 [place] sliding Spirit 00:00: scale 2 - CHI 00 units - 28 [facility] NovoLIN R NovoLIN R 2019-1 No TID [...] 00:00: UNIT/ML 00 NovoLIN R NovoLIN R 2018-1 No TID NovoLIN R 100 UNIT/ML 100 UNIT/ML 06-17 100 00:00: UNIT/ML 00 NovoLIN R NovoLIN R 2019- No TID NovoLIN R 100 UNIT/ML 100 UNIT/ML 06-17 100 00:00: UNIT/ML 00 NovoLIN R NovoLIN R 2018- No TID NovoLIN R 100 UNIT/ML 100 UNIT/ML 06-17 100 00:00: UNIT/ML 00 NovoLIN R NovoLIN R 2018-1 No TID NovoLIN R 100 UNIT/ML 100 [...] 06-17 100 00:00: UNIT/ML 00 dulaglutide Yes [id number] 1.5mg inject 1.5 Univers (TRULICITY) 8-27 mg under ity of 1.5 mg/0.5 00:00: the skin [place] as mL PnIj 00 weekly. Medical Branch dulaglutide Yes [id number] 1.5mg inject 1.5 Univers (TRULICITY) 8-27 mg under ity of 1.5 mg/0.5 00:00: the skin [place] as mL PnIj 00 weekly. Medical Branch dulaglutide Yes [id number] 1.5mg inject 1.5 Univers (TRULICITY) 8-27 mg under ity of 1.5 mg/0.5 00:00: the skin [place] as mL PnIj 00 weekly. Medical Branch dulaglutide Yes [id number] 1.5mg inject 1.5 Univers (TRULICITY) 8-27 mg under ity of 1.5 mg/0.5 00:00: the skin [place] as mL PnIj 00 weekly. Medical Branch dulaglutide Yes [id number] 1.5mg inject 1.5 Univers (TRULICITY) 8-27 mg under ity of 1.5 mg/0.5 00:00: the skin [place] as mL PnIj 00 weekly. Medical Branch dulaglutide Yes [id number] 1.5mg inject 1.5 Univers (TRULICITY) 8-27 mg under ity of 1.5 mg/0.5 00:00: the skin [place] as mL PnIj 00 weekly. Medical Branch dulaglutide Yes [id number] 1.5mg inject 1.5 Univers (TRULICITY) 8-27 mg under ity of 1.5 mg/0.5 00:00: the skin [place] as mL PnIj 00 weekly. Medical Branch dulaglutide Yes [id number] 1.5mg inject 1.5 Univers (TRULICITY) 8-27 mg under ity of 1.5 mg/0.5 00:00: the skin [place] as mL PnIj 00 weekly. Medical Branch dulaglutide Yes [id number] 1.5mg inject 1.5 Univers (TRULICITY) 8-27 mg under ity of 1.5 mg/0.5 00:00: the skin [place] as mL PnIj 00 weekly. Medical Branch dulaglutide Yes [id number] 1.5mg inject 1.5 Univers (TRULICITY) 8-27 mg under ity of 1.5 mg/0.5 00:00: the skin [place] as mL PnIj 00 weekly. Medical Branch dulaglutide Yes [id number] 1.5mg inject 1.5 Univers (TRULICITY) 8-27 mg under ity of 1.5 mg/0.5 00:00: the skin [place] as mL PnIj 00 weekly. Medical Branch dulaglutide Yes [id number] 1.5mg inject 1.5 Univers (TRULICITY) 8-27 mg under ity of 1.5 mg/0.5 00:00: the skin [place] as mL PnIj 00 weekly. Medical Branch dulaglutide Yes [id number] 1.5mg inject 1.5 Univers (TRULICITY) 8-27 mg under ity of 1.5 mg/0.5 00:00: the skin [place] as mL PnIj 00 weekly. Medical Branch dulaglutide Yes [id number] 1.5mg inject 1.5 Univers (TRULICITY) 8-27 mg under ity of 1.5 mg/0.5 00:00: the skin [place] as mL PnIj 00 weekly. Medical Branch dulaglutide Yes [id number] 1.5mg inject 1.5 Univers (TRULICITY) 8-27 mg under ity of 1.5 mg/0.5 00:00: the skin [place] as mL PnIj 00 weekly. Medical Branch dulaglutide Yes [id number] 1.5mg inject 1.5 Univers (TRULICITY) 8-27 mg under ity of 1.5 mg/0.5 00:00: the skin [place] as mL PnIj 00 weekly. Medical Branch dulaglutide Yes [id number] 1.5mg inject 1.5 Univers (TRULICITY) 8-27 mg under ity of 1.5 mg/0.5 00:00: the skin [place] as mL PnIj 00 weekly. Medical Branch dulaglutide Yes [id number] 1.5mg inject 1.5 [facility] (TRULICITY) 8-27 mg under ity of 1.5 mg/0.5 00:00: the skin [place] as mL PnIj 00 weekly. [facility] Branch dulaglutide Yes [id number] 1.5mg inject 1.5 [facility] (TRULICITY) 8-27 mg under ity of 1.5 mg/0.5 00:00: the skin [place] as mL PnIj 00 weekly. [facility] Branch dulaglutide Yes [id number] 1.5mg inject 1.5 [facility] (TRULICITY) 8-27 mg under ity of 1.5 mg/0.5 00:00: the skin [place] as mL PnIj 00 weekly. [facility] Branch dulaglutide Yes [id number] 1.5mg inject 1.5 [facility] (TRULICITY) 8-27 mg under ity of 1.5 mg/0.5 00:00: the skin [place] mL PnIj 00 weekly. [facility] Branch dulaglutide Yes [id number] 1.5mg inject 1.5 [facility] (TRULICITY) 8-27 mg under ity of 1.5 mg/0.5 00:00: the skin [place] as mL PnIj 00 weekly. [facility] Branch insulin Yes [id number] 28U inject Uni vers lispro, 5-25 28-34 ity of human, 00:00: Units [place] (HUMALOG) 00 under the Medic al 100 unit/mL skin 3 Branch injection (three) times daily before meals. insulin Yes [id number] 28U inject Uni vers lispro, 5-25 28-34 ity of human, 00:00: Units [place] (HUMALOG) 00 under the Medic al 100 unit/mL skin 3 Branch injection (three) times daily before meals. insulin Yes [id number] 28U inject Uni vers lispro, 5-25 28-34 ity of human, 00:00: Units [place] (HUMALOG) 00 under the Medic al 100 unit/mL skin 3 Branch injection (three) times daily before meals. insulin Yes [id number] 28U inject Uni vers lispro, 5-25 28-34 ity of human, 00:00: Units [place] (HUMALOG) 00 under the Medic al 100 unit/mL skin 3 Branch injection (three) times daily before meals. insulin Yes [id number] 28U inject Uni vers lispro, 5-25 28-34 ity of human, 00:00: Units [place] (HUMALOG) 00 under the Medic al 100 unit/mL skin 3 Branch injection (three) times daily before meals. insulin 2018- Yes [id number] 28U inject Uni vers lispro, 5-25 28-34 ity of human, 00:00: Units [place] (HUMALOG) 00 under the Medic al 100 unit/mL skin 3 Branch injection (three) times daily before meals. insulin 0 Yes [id number] 28U inject Univ ers lispro, 5-25 28-34 ity of human, 00:00: Units [place] (HUMALOG) 00 under the Medic al 100 unit/mL skin 3 Branch injection (three) times daily before meals. insulin 2017- Yes [id number] 28U inject Univ ers lispro, 5-25 28-34 ity of human, 00:00: Units [place] (HUMALOG) 00 under the Medic al 100 unit/mL skin 3 Branch injection (three) times daily before meals. insulin Yes [id number] 28U inject Univ ers lispro, 5-25 28-34 ity of human, 00:00: Units [place] (HUMALOG) 00 under the Medic al 100 unit/mL skin 3 Branch injection (three) times daily before meals. insulin Yes [id number] 28U inject Univ ers lispro, 5-25 28-34 ity of human, 00:00: Units [place] (HUMALOG) 00 under the Medic al 100 unit/mL skin 3 Branch injection (three) times daily before meals. insulin Yes [id number] 28U inject Univ ers lispro, 5-25 28-34 [...] mouth ity of mg tablet 18:23: daily. [place] 19 Medical Branch amLODIPine 2017- Yes 2.5mg Take 2.5 Un marc 2.5 mg 5-07 mg by ity of tablet 18:23: mouth [place] 19 daily. Medical Branch escitalopra Yes 10mg Take 10 mg Univers m oxalate 5-07 by mouth ity of (LEXAPRO) 18:23: daily. [place] 10 mg 19 Medical tablet Branch clopidogrel Yes 75mg Take 75 mg Univers (PLAVIX) 75 5-07 by mouth ity of mg tablet 18:23: daily. [place] [address] Medical Branch amLODIPine 0 Yes 2.5mg Take 2.5 Un marc 2.5 mg 5-07 mg by ity of tablet 18:23: mouth [place] 19 daily. Medical Branch escitalopra Yes 10mg Take 10 mg Univers m oxalate 5-07 by mouth ity of (LEXAPRO) 18:23: daily. [place] 10 mg Medical tablet Branch clopidogrel Yes 75mg Take 75 mg Univers (PLAVIX) 75 5-07 by mouth ity of mg tablet 18:23: daily. [place] [address] Medical Branch amLODIPine Yes 2.5mg Take 2.5 Un marc 2.5 mg 5-07 mg by ity of tablet 18:23: mouth [place] 19 daily. Medical Branch escitalopra Yes 10mg Take 10 mg Univers m oxalate 5-07 by mouth ity of (LEXAPRO) 18:23: daily. [place] 10 mg Medical tablet Branch clopidogrel Yes 75mg Take 75 mg Univers (PLAVIX) 75 5-07 by mouth ity of mg tablet 18:23: daily. [place] [address] Medical Branch amLODIPine 0 Yes 2.5mg Take 2.5 Un marc 2.5 mg 5-07 mg by ity of tablet 18:23: mouth [place] 19 daily. Medical Branch escitalopra Yes 10mg Take 10 mg Univers m oxalate 5-07 by mouth ity of (LEXAPRO) 18:23: daily. [place] 10 mg Medical tablet Branch clopidogrel 0 Yes 75mg Take 75 mg Univers (PLAVIX) 75 5-07 by mouth ity of mg tablet 18:23: daily. [place] [address] Medical Branch amLODIPine 0 Yes 2.5mg Take 2.5 Un marc 2.5 mg 5-07 mg by ity of tablet 18:23: mouth [place] 19 daily. Medical Branch escitalopra Yes 10mg Take 10 mg Univers m oxalate 5-07 by mouth ity of (LEXAPRO) 13:23: daily. [place] 10 mg 19 Medical tablet Branch clopidogrel 0 Yes 75mg Take 75 mg Univers (PLAVIX) 75 5-07 by mouth ity of mg tablet 13:23: daily. [address] escitalopra Yes 10mg Take 10 mg Univers m oxalate 5-07 by mouth ity of (LEXAPRO) 13:23: daily. [place] 10 mg Medical tablet Branch clopidogrel Yes 75mg Take 75 mg Univers (PLAVIX) 75 5-07 by mouth ity of mg tablet 13:23: daily. [address] escitalopra Yes 10mg Take 10 mg Univers m oxalate 5-07 by mouth ity of (LEXAPRO) 13:23: daily. [place] 10 mg Medical tablet Branch clopidogrel Yes 75mg Take 75 mg Univers (PLAVIX) 75 5-07 by mouth ity of mg tablet 13:23: daily. [address] escitalopra Yes 10mg Take 10 mg Univers m oxalate 5-07 by mouth ity of (LEXAPRO) 13:23: daily. [place] 10 mg Medical tablet Branch clopidogrel Yes 75mg Take 75 mg Univers (PLAVIX) 75 5-07 by mouth ity of mg tablet 13:23: daily. [address] escitalopra Yes 10mg Take 10 mg Univers m oxalate 5-07 by mouth ity of (LEXAPRO) 13:23: daily. [place] 10 mg Medical tablet Branch clopidogrel Yes 75mg Take 75 mg Univers (PLAVIX) 75 5-07 by mouth ity of mg tablet 13:23: daily. [address] escitalopra Yes 10mg Take 10 mg Univers m oxalate 5-07 by mouth ity of (LEXAPRO) 13:23: daily. [place] 10 mg Medical tablet Branch clopidogrel Yes 75mg Take 75 mg [facility] (PLAVIX) 75 5-07 by mouth ity of mg tablet 13:23: daily. [address] amLODIPine Yes 2.5mg Take 2.5 Un marc 2.5 mg 5-07 mg by ity of tablet 13:23: mouth daily. Medical Branch insulin NPH Yes [id number] 40U inject 40 [facility] 100 unit/mL 5-07 Units ity of injection 00:00: under the [place] 00 skin every Medical morning Branch and evening. insulin NPH 2018-0 Yes [id number] 40U inject 40 [facility] 100 unit/mL 5-07 Units ity of injection 00:00: under the [place] 00 skin every Medical morning Branch and evening. insulin NPH 2017-0 Yes [id number] 40U inject 40 [facility] 100 unit/mL 5-07 Units ity of injection 00:00: under the [place] 00 skin every Medical morning Branch and evening. insulin NPH 2017-0 Yes [id number] 40U inject 40 [facility] 100 unit/mL 5-07 Units ity of injection 00:00: under the [place] 00 skin every Medical morning Branch and evening. insulin NPH 2017-0 Yes [id number] 40U inject 40 [facility] 100 unit/mL 5-07 Units ity of injection 00:00: under the [place] 00 skin every Medical morning Branch and evening. insulin NPH 2017-0 Yes [id number] 40U inject 40 [facility] 100 unit/mL 5-07 Units ity of injection 00:00: under the [place] 00 skin every Medical morning Branch and evening. insulin NPH 2017-0 Yes [id number] 40U inject 40 [facility] 100 unit/mL 5-07 Units ity of injection 00:00: under the [place] 00 skin every Medical morning Branch and evening. insulin NPH 2017-0 Yes [id number] 40U inject 40 [facility] 100 unit/mL 5-07 Units ity of injection 00:00: under the [place] 00 skin every Medical morning Branch and evening. insulin NPH 2017-0 Yes [id number] 40U inject 40 [facility] 100 unit/mL 5-07 Units ity of injection 00:00: under the [place] 00 skin every Medical morning Branch and evening. insulin NPH 2017-0 Yes [id number] 40U inject 40 [facility] 100 unit/mL 5-07 Units ity of injection 00:00: under the [place] 00 skin every Medical morning Branch and evening. insulin NPH 2017-0 Yes [id number] 40U inject 40 [facility] 100 unit/mL 5-07 Units ity of injection 00:00: under the [place] 00 skin every Medical morning Branch and evening. atorvastati 2017-0 Yes 40mg Take 40 mg Univers n 80 mg 1-18 by mouth ity of tablet 00:00: every evening. Medical Branch lisinopril 2017-0 Yes 20mg Take 20 mg U nivers 20 mg 1-18 by mouth ity of tablet 00:00: daily. Medical Branch atorvastati 2018-0 Yes 40mg Take 40 mg Univers n 80 mg 1-18 by mouth ity of tablet 00:00: every [place] evening. Medical Branch lisinopril 2018-0 Yes 20mg Take 20 mg U nivers 20 mg 1-18 by mouth ity of tablet 00:00: daily. Medical Branch atorvastati 2018-0 Yes 40mg Take 40 mg Univers n 80 mg 1-18 by mouth ity of tablet 00:00: every [place] evening. Medical Branch lisinopril 2018-0 Yes 20mg Take 20 mg U nivers 20 mg 1-18 by mouth ity of tablet 00:00: daily. Medical Branch atorvastati 2018-0 Yes 40mg Take 40 mg Univers n 80 mg 1-18 by mouth ity of tablet 00:00: every [place] evening. Medical Branch lisinopril 2018-0 Yes 20mg Take 20 mg U nivers 20 mg 1-18 by mouth ity of tablet 00:00: daily. Medical Branch atorvastati 2018-0 Yes 40mg Take 40 mg Univers n 80 mg 1-18 by mouth ity of tablet 00:00: every [place] evening. Medical Branch lisinopril 2018-0 Yes 20mg Take 20 mg U nivers 20 mg 1-18 by mouth ity of tablet 00:00: daily. Medical Branch atorvastati 2018-0 Yes 40mg Take 40 mg Univers n 80 mg 1-18 by mouth ity of tablet 00:00: every [place] evening. Medical Branch lisinopril 2018-0 Yes 20mg Take 20 mg U nivers 20 mg 1-18 by mouth ity of tablet 00:00: daily. Medical Branch atorvastati 2018-0 Yes 40mg Take 40 mg Univers n 80 mg 1-18 by mouth ity of tablet 00:00: every [place] evening. Medical Branch lisinopril 2018-0 Yes 20mg Take 20 mg U nivers 20 mg 1-18 by mouth ity of tablet 00:00: daily. Medical Branch atorvastati 2018-0 Yes 40mg Take 40 mg Univers n 80 mg 1-18 by mouth ity of tablet 00:00: every [place] evening. Medical Branch lisinopril 2018-0 Yes 20mg Take 20 mg U nivers 20 mg 1-18 by mouth ity of tablet 00:00: daily. Medical Branch atorvastati 2018-0 Yes 40mg Take 40 mg Univers n 80 mg 1-18 by mouth ity of tablet 00:00: every [place] 00 evening. Medical Branch lisinopril 2018-0 Yes 20mg Take 20 mg U nivers 20 mg 1-18 by mouth ity of tablet 00:00: daily. Medical Branch atorvastati 2018-0 Yes 40mg Take 40 mg Univers n 80 mg 1-18 by mouth ity of tablet 00:00: every [place] 00 evening. Medical Branch lisinopril 2017-0 Yes 20mg Take 20 mg U nivers 20 mg 1-18 by mouth ity of tablet 00:00: daily. Medical Branch atorvastati 2018-0 Yes 40mg Take 40 mg Univers n 80 mg 1-18 by mouth ity of tablet 00:00: every [place] 00 evening. Medical Branch lisinopril 2017-0 Yes 20mg Take 20 mg U nivers 20 mg 1-18 by mouth ity of tablet 00:00: daily. [place] [facility] Branch gabapentin 2016-0 Yes [id number] 600mg Take 1 Univers (NEURONTIN) 8-16 tablet by ity of 600 mg 00:00: mouth 3 [place] tablet 00 (three) Medical times Branch daily. gabapentin 2016-0 Yes [id number] 600mg Take 1 Univers (NEURONTIN) 8-16 tablet by ity of 600 mg 00:00: mouth 3 [place] tablet 00 (three) Medical times Branch daily. gabapentin 2016-0 Yes [id number] 600mg Take 1 [facility] (NEURONTIN) 8-16 tablet by ity of 600 mg 00:00: mouth 3 [place] tablet 00 (three) Medical times Branch daily. gabapentin 2016-0 Yes [id number] 600mg Take 1 Univers (NEURONTIN) 8-16 tablet by ity of 600 mg 00:00: mouth 3 [place] tablet 00 (three) Medical times Branch daily. gabapentin 2016-0 Yes [id number] 600mg Take 1 Univers (NEURONTIN) 8-16 tablet by ity of 600 mg 00:00: mouth 3 [place] tablet 00 (three) Medical times Branch daily. gabapentin 2016-0 Yes [id number] 600mg Take 1 Univers (NEURONTIN) 8-16 tablet by ity of 600 mg 00:00: mouth 3 [place] tablet 00 (three) Medical times Branch daily. gabapentin 2016-0 Yes [id number] 600mg Take 1 Univers (NEURONTIN) 8-16 tablet by ity of 600 mg 00:00: mouth 3 [place] tablet 00 (three) Medical times Branch daily. gabapentin 2016-0 Yes [id number] 600mg Take 1 Univers (NEURONTIN) 8-16 tablet by ity of 600 mg 00:00: mouth 3 [place] tablet 00 (three) Medical times Branch daily. gabapentin 2016-0 Yes [id number] 600mg Take 1 Univers (NEURONTIN) 8-16 tablet by ity of 600 mg 00:00: mouth 3 [place] tablet 00 (three) Medical times Branch daily. gabapentin 2016-0 Yes [id number] 600mg Take 1 Univers (NEURONTIN) 8-16 tablet by ity of 600 mg 00:00: mouth 3 [place] tablet 00 (three) Medical times Branch daily. gabapentin 2015- Yes [id number] 600mg Take 1 Univers (NEURONTIN) 8-16 tablet by ity of 600 mg 00:00: mouth 3 [place] tablet 00 (three) Medical times Branch daily. 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 - Carvedilol Carvedilol No Carvedilol 12.5 MG [...] Dexcom G6 Dexcom G6 No Dexcom G6 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 - Lipitor 80 Lipitor 80 No 1{table [...] Dexcom G6 Dexcom G6 No Dexcom G6 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 - Lipitor 80 Lipitor 80 No 1{table [...] Dexcom G6 Dexcom G6 No Dexcom G6 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 - Lipitor 80 Lipitor 80 No 1{table [...] Dexcom G6 Dexcom G6 No Dexcom G6 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 - traMADol traMADol No 1{table BID traMADol [...] Dexcom G6 Dexcom G6 No Dexcom G6 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 - traMADol traMADol No 1{table BID traMADol [...] Dexcom G6 Dexcom G6 No Dexcom G6 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 - Lipitor 80 Lipitor 80 No 1{table [...] MG MG Dexcom G6 Dexcom G6 No Tinkcom G6 Transmitter Transmitter Transmitte - - r - Dexcom G6 Dexcom G6 No Dexcom G6 Sensor - Sensor - Sensor - Plavix 75 Plavix 75 No 1{table QD Plavix 75 MG MG t} MG Dexcom G6 Dexcom G6 No Dexcom G6 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 - hydrOXYzine hydrOXYzine No 1{table QID hydrOXYzin [...] Dexcom G6 Dexcom G6 No Dexcom G6 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 - Lexapro 20 Lexapro 20 No Lexapro [...] 5/16" 31G X 1 ML 1 ML 16" 1 ML Metoprolol Metoprolol No 1{table BID [...] 5/16" 31G X 1 ML 1 ML /16" 1 ML Metoprolol Metoprolol No 1{table BID [...] 5/16" 31G X 1 ML 1 ML /16" 1 ML Metoprolol Metoprolol No 1{table BID [...] 150 MG 150 MG dtime} 150 MG Aspirin 81 Aspirin 81 No 1{table QD Aspirin 81 81 MG 81 MG t} 81 MG HumuLIN HumuLIN No HumuLIN 70/30 70/30 70/30 (70-30) 100 (70-30) 100 (70-30) UNIT/ML UNIT/ML 100 UNIT/ML OneTouch OneTouch Yes Michael USE TO Com mon Ultra Test Ultra Test [place] CHECK S pirit BLOOD - CHI SUGAR FOUR TIMES [facility] Amlodipine Amlodipine Yes Michael TAKE 1 Common Besylate Besylate [place] TABLET BY S pirit MOUTH ONCE - [facility]I A DAY [facility] Hydrochloro Hydrochloro Yes Michael TAKE 1 Common thiazide thiazide [place] TABLET BY S pirit MOUTH ONCE - CHI A DAY IN [facility] Neurontin Neurontin Yes Michael 1 tablet Common [place] [facility] Novolin N Novolin N Yes Michael 50 units Common [place] [facility] Escitalopra Escitalopra Yes Michael 1 tablet Common m Oxalate m Oxalate [place] Spir it [facility] Coreg Coreg Yes Michael 1 tablet Common [place] [facility] NovoLog NovoLog Yes Michael sliding Comm on [place] scale 36 Spirit units [facility] OneTouch OneTouch Yes Michael TEST BLOOD Common Ultra Test Ultra Test [place] GLUCOSE Spirit FOUR TIMES - CHI A DAY [facility] ProAir HFA ProAir HFA Yes Michael 2 puffs as Common [place] needed [facility] Lipitor Lipitor Yes Michael 1 tablet Com mon [place] [facility] Gabapentin Gabapentin Yes Michael 1 tablet Common [place] [facility] Furosemide Furosemide Yes Michael 1 tablet Common [place] [facility] Lisinopril Lisinopril Yes Michael TAKE 1 Common [place] TABLET BY Spirit MOUTH ONCE - CHI A DAY [facility] Lexapro Lexapro Yes Mcihael TAKE 1 Commo n [place] TABLET BY Spirit MOUTH ONCE - CHI DAILY [facility] Plavix Plavix Yes Michael TAKE 1 Common [place] TABLET BY Spirit MOUTH ONCE - CHI DAILY [facility] Plavix Plavix Yes Michael 1 tablet Commo n [place] [facility] Lipitor 80 Lipitor 80 No 1{table QD Lipitor 80 MG MG t} MG Coreg 25 MG Coreg 25 MG No 1{table BID Coreg 25 t} MG Santyl 250 Santyl 250 No Santyl 250 UNIT/GM UNIT/GM UNIT/GM Lantus Lantus No QD Lantus SoloStar SoloStar SoloStar 100 UNIT/ML 100 UNIT/ML 100 UNIT/ML Insulin Insulin No Insulin Syringe-Nee Syringe-Nee Syringe-Ne dle U-100 dle U-100 edle U-100 31G X 5/16" 31G X 5/16" 31G X 1 ML 1 ML /16" 1 ML Metoprolol Metoprolol No 1{table BID Metoprolol Tartrate 25 Tartrate 25 t_with_ Tartrate MG MG food} 25 MG Escitalopra Escitalopra No Escitalopr m Oxalate m Oxalate am Oxalate 20 mg 20 mg 20 mg Furosemide Furosemide No 1{table QD Furosemide 40 MG 40 MG t} 40 MG Neurontin Neurontin No 1{table Neurontin 600 MG 600 MG t} 600 MG Gabapentin Gabapentin No QID Gabapentin 600 MG 600 MG 600 MG Plavix 75 Plavix 75 No 1{table QD Plavix 75 MG MG t} MG Acetaminoph Acetaminoph No 1{table 6xD Acetaminop en 325 MG en 325 MG t_as_ne hen 325 MG eded} Furosemide Furosemide No Furosemide 80 MG 80 [...] Dexcom G6 Dexcom G6 No Dexcom G6 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 - Dexcom G6 Dexcom G6 No Dexcom [...] Dexcom G6 Dexcom G6 No Dexcom G6 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 - Dexcom G6 Dexcom G6 No Dexcom [...] 650 MG ts_as_n Hour 650 eeded} MG Immunizations Ordered Filled Immunization Date Status Comments [facility] e Immunization Name Name [place] [id number] 2021-05-21 Completed [facility] Vaccine (Low Dose Vaccine (Low Dose 15:39:00 - [facility] Booster) Booster) [place] [id number] 2021-05-21 Completed [facility] Vaccine (Low Dose Vaccine (Low Dose 15:39:00 - [facility] Booster) Booster) [place] [id number] 2021-05-21 Completed [facility] Vaccine (Low Dose Vaccine (Low Dose 15:39:00 - [facility] Booster) Booster) [place] [address] 2021-05-21 Completed [facility] Vaccine (Low Dose Vaccine (Low Dose 15:39:[facility] - [facility] Booster) Booster) [place] [id number] 2021-05-21 Completed [facility] Vaccine (Low Dose Vaccine (Low Dose 15:39:00 [facility] Vaccine (Low Dose Vaccine (Low Dose 15:39:00 - [facility] Booster) Booster) [place] [id number] 2021-05-21 Completed [facility] Vaccine (Low Dose Vaccine (Low Dose 15:39:00 - [facility] Booster) Booster) [place] [id number] 2021-05-21 Completed [facility] Vaccine (Low Dose Vaccine (Low Dose 15:39:00 - [facility] Booster) Booster) [facility] COVID19 [facility] COVID19 2021-05-21 Completed [facility] Vaccine (Low Dose Vaccine (Low Dose 15:39:00 - [facility] Booster) Booster) [facility] COVID19 [facility] COVID19 2021-05-21 Completed [facility] Vaccine (Low Dose Vaccine (Low Dose 15:39:00 - [facility] Booster) Booster) [facility] COVID19 [facility] COVID19 2021-05-21 Completed [facility] Vaccine (Low Dose Vaccine (Low Dose 15:39:00 - [facility] Booster) Booster) [facility] COVID19 [facility] COVID19 2021-05-21 Completed [facility] Vaccine (Low Dose Vaccine (Low Dose 15:39:00 - [facility] Booster) Booster) [facility] COVID19 [facility] COVID19 2021-05-21 Completed [facility] Vaccine (Low Dose Vaccine (Low Dose 15:39:00 - [facility] Booster) Booster) [facility] COVID19 [facility] COVID19 2021-05-21 Completed [facility] Vaccine (Low Dose Vaccine (Low Dose 15:39:00 - [facility] Booster) Booster) [facility] COVID-19 Vaccine COVID-19 Vaccine 2020-08-28 Completed [facility] (Aidan) (Aidan) 14:58:00 [facility] COVID-19 Vaccine COVID-19 Vaccine 2020-08-28 Completed [facility] (Aidan) (Aidan) 14:58:00 [facility] COVID-19 Vaccine COVID-19 Vaccine 2020-08-28 Completed [facility] (Aidan) (Aidan) 14:58:00 [facility] COVID-19 Vaccine COVID-19 Vaccine 2020-08-28 Completed [facility] (Aidan) (Aidan) 14:58:00 [facility] COVID-19 Vaccine COVID-19 Vaccine 2020-08-28 Completed [facility] (Aidan) (Aidan) 14:58:00 [facility] COVID-19 Vaccine COVID-19 Vaccine 2020-08-28 Completed [facility] (Aidan) (Aidan) 14:58:00 [facility] COVID-19 Vaccine COVID-19 Vaccine 2020-08-28 Completed [facility] (Aidan) (Aidan) 14:58:00 [facility] COVID-19 Vaccine COVID-19 Vaccine 2020-08-28 Completed [facility] (Aidan) (Aidan) 14:58:00 [facility] COVID-19 Vaccine COVID-19 Vaccine 2020-08-28 Completed [facility] (Aidan) (Aidan) 14:58:00 [facility] COVID-19 Vaccine COVID-19 Vaccine 2020-08-28 Completed [facility] (Aidan) (Aidan) 14:58:00 [facility] COVID-19 Vaccine COVID-19 Vaccine 2020-08-28 Completed [facility] (Aidan) (Aidan) 14:58:00 [facility] COVID-19 Vaccine COVID-19 Vaccine 2020-08-28 Completed [facility] (Aidan) (Aidan) 14:58:00 [facility] COVID-19 Vaccine COVID-19 Vaccine 2020-08-28 Completed [facility] (Aidan) (Aidan) 14:58:00 [facility] COVID-19 Vaccine COVID-19 Vaccine 2020-08-28 Completed [facility] (Aidan) (Aidan) 14:58:00 [facility] Moderna COVID-19 Moderna COVID-19 Unknown Completed [facility] Vaccine (Low Dose Vaccine (Low Dose - [facility] Booster) Booster) [facility] COVID-19 Vaccine COVID-19 Vaccine Unknown Completed [facility] (Aidan) (Aidan) [facility] Moderna COVID-19 Moderna COVID-19 Unknown Completed [facility] Vaccine (Low Dose Vaccine (Low Dose - [facility] Booster) Booster) [facility] COVID-19 Vaccine COVID-19 Vaccine Unknown Completed [facility] (Aidan) (Aidan) [facility] Moderna COVID-19 Moderna COVID-19 Unknown Completed [facility] Vaccine (Low Dose Vaccine (Low Dose - [facility] Booster) Booster) [facility] COVID-19 Vaccine COVID-19 Vaccine Unknown Completed [facility] (Aidan) (Aidan) [facility] Moderna COVID-19 Moderna COVID-19 Unknown Completed [facility] Vaccine (Low Dose Vaccine (Low Dose - [facility] Booster) Booster) [facility] COVID-19 Vaccine COVID-19 Vaccine Unknown Completed [facility] (Aidan) (Aidan) - [facility] Moderna COVID-19 Moderna COVID-19 Unknown Completed [facility] Vaccine (Low Dose Vaccine (Low Dose - [facility] Booster) Booster) [facility] COVID-19 Vaccine COVID-19 Vaccine Unknown Completed [facility] (Aidan) (Aidan) [facility] Moderna COVID-19 Moderna COVID-19 Unknown Completed [facility] Vaccine (Low Dose Vaccine (Low Dose - [facility] Booster) Booster) [facility] COVID-19 Vaccine COVID-19 Vaccine Unknown Completed [facility] (Aidan) (Aidan) [facility] Vital Signs Vital Name Observation Time [...] 14:32:00 94 mm[Hg] Univer sity of pressure [facility] Diastolic blood 2022-10-05 14:32:00 54 mm[Hg] Unive rsity of pressure [facility] Heart rate 2022-10-05 14:32:00 62 /min [facility] Body height 2022-10-05 14:32:00 180.3 cm [facility] Body weight 2022-10-05 14:32:00 127.914 kg Universi ty [facility] BMI 2022-10-05 14:32:00 39.33 kg/m2 [facility] Oxygen saturation in 2022-10-05 14:32:00 97 /min [facility] Arterial blood by [facility] Pulse oximetry Branch height 2022-08-25 15:10:00 71 [in_i] Common [facility] weight 2022-08-25 15:10:00 272.0 [lb_av] [facility] temperature 2022-08-25 15:10:00 97.3 [degF] Common [facility] bmi 2022-08-25 15:10:00 37.93 kg/m2 [facility] oximetry 2022-08-25 15:10:00 99 % [facility] respiratory rate 2022-08-25 15:10:00 18 /min Comm on [facility] blood pressure 2022-08-25 15:10:00 132 mm[Hg] Common [facility] - systolic [facility] blood pressure 2022-08-25 15:10:00 75 mm[Hg] Common [facility] - diastolic [facility] height 2022-08-25 15:20:00 71 [in_i] [facility] weight 2022-08-25 15:20:00 272.0 [lb_av] [facility] temperature 2022-08-25 15:20:00 97.3 [degF] Common [facility] bmi 2022-08-25 15:20:00 37.93 kg/m2 [facility] oximetry 2022-08-25 15:20:00 99 % [facility] respiratory rate 2022-08-25 15:20:00 18 /min Comm on [facility] blood pressure 2022-08-25 15:20:00 132 mm[Hg] Common [facility] - systolic [facility] blood pressure 2022-08-25 15:20:00 75 mm[Hg] Common [facility] - diastolic [facility] height 2022-05-27 14:00:00 71 [in_i] Common S pirit - [facility] weight 2022-05-27 14:00:00 271.4 [lb_av] Common [facility] temperature 2022-05-27 14:00:00 97.9 [degF] Common S pirit - [facility] bmi 2022-05-27 14:00:00 37.85 kg/m2 Common S pirit - [facility] blood pressure 2022-05-27 14:00:00 128 mm[Hg] Common [facility] - systolic [facility] blood pressure 2022-05-27 14:00:00 76 mm[Hg] Common [facility] - diastolic [facility] height 2022-05-25 15:30:00 71 [in_i] [facility] weight 2022-05-25 15:30:00 271.1 [lb_av] [facility] temperature 2022-05-25 15:30:00 97.6 [degF] Common S pirit [facility] bmi 2022-05-25 15:30:00 37.81 kg/m2 [facility] S pirit [facility] oximetry 2022-05-25 15:30:00 97 % [facility] 2022-05-25 15:30:00 17 /min Comm on Spirit - [facility] blood pressure 2022-05-25 15:30:00 139 mm[Hg] Common [facility] - systolic [facility] blood pressure 2022-05-25 15:30:00 65 mm[Hg] Common [facility] - diastolic [facility] height 2022-03-19 15:00:00 71 [in_i] Common S pirit [facility] weight 2022-03-19 15:00:00 272.6 [lb_av] [facility] temperature 2022-03-19 15:00:00 97.6 [degF] Common S pirit - [facility] bmi 2022-03-19 15:00:00 38.02 kg/m2 Common S [facility] oximetry 2022-03-19 15:00:00 95 % Common S [facility] respiratory rate 2022-03-19 15:00:00 16 /min Comm on [facility] blood pressure 2022-03-19 15:00:00 129 mm[Hg] Common [facility] - systolic [facility] blood pressure 2022-03-19 15:00:00 74 mm[Hg] Common [facility] - diastolic [facility] Procedures Procedure Date / Time Performed Performing Clinician Sourc e EMG 2023-01-12 22:16:44 Layla Torres [facility] REFERRAL- 2022-09-29 05:01:00 Doctor Unassigned, No [facility] [place] [facility]QUEST[facility]RESPONSE Name [facility] REFERRAL- 2020-12-09 05:01:00 [facility] MR ORBIT W WO CONTRAST 2020-04-11 17:19:58 Requisition, Paper [facility] MR BRAIN W WO CONTRAST 2020-04-11 17:18:18 Requisition, Paper Un iversity [facility] ASSIGNMENT OF BENEFITS 2020-04-11 15:07:27 Doctor Unassigned, No [facility] Encounters Start End Encounter Admission Attending Care Care Encounter Source Date/Time Date/Time Type Type Clinicians Facility Department ID 2023-05-04 Outpatient Mitchel [facility] [id number] Common 08:54:00 [facility] [id number] [facility] 2023-02-24 Inpatient UR PA SLEH [facility] [id number] SLEH 10:42:09 AUDELIA 2023-02-24 [facility] [id number] SLE[facility] 02:14:12 SHAINA RIVAS 2023-02-23 Inpatient UR ELLIE SLEYordan [facility] [id number] SLEH 00:13:34 DOMINGO 2023-02-22 Inpatient UR ELLIE SLEYordan [facility] [id number] SLEH 00:07:21 DOMINGO 2023-02-21 Inpatient UR BLAMO, SLEH SLEH [id number] SLEH 22:07:43 BARON 2023-02-21 Inpatient UR WINN, SLEH SLEH [id number] SLEH 19:24:32 AUDELIA 2023-02-21 Inpatient UR WINN, SLEH SLEH [id number] SLEH 17:38:00 AUDELIA 2023-02-21 Inpatient UR WINN, SLEH SLEH [id number] SLEH 14:03:19 AUDELIA 2023-02-21 Inpatient UR ELLIE, SLEH SLEH [id number] SLEH 00:06:13 DOMINGO 2023-02-20 Inpatient UR ELLIE, SLEH SLEH [id number] SLEH 00:29:53 DOMINGO 2023-02-19 Inpatient UR MOFOR, SLEH SLEH [id number] SLEH 16:46:12 LOYCE 2023-02-19 Inpatient UR MOFOR, SLEH SLEH [id number] SLEH 10:48:42 LOYCE 2023-02-19 Inpatient UR [facility] SLEH SLEH [id number] SLEH 07:01:06 LLA, SHAINA 2023-02-19 Inpatient UR ELLIE, SLEH SLEH [id number] SLEH 00:42:11 DOMINGO 2023-02-18 Inpatient UR MOFOR, SLEH SLEH [id number] SLEH 14:26:26 LOYCE 2023-02-18 Inpatient UR ELLIE, SLEH SLEH [id number] SLEH 00:11:59 DOMINGO 2023-02-17 Inpatient UR MOFOR, SLEH SLEH [id number] SLEH 09:23:24 LOYCE 2023-02-17 Inpatient UR ELLIE, SLEH SLEH [id number] SLEH 01:40:06 DOMINGO 2023-02-16 Inpatient UR [facility] SLEH SLEH [id number] SLEH 09:30:10 LLA, SHAINA 2023-02-16 Inpatient UR ELLIE, SLEH SLEH [id number] SLEH 00:00:23 DOMINGO 2023-02-15 Inpatient UR ELLIE, SLEH SLEH [id number] SLEH 00:31:47 DOMINGO 2023-02-14 Inpatient UR ELLIE, SLEH SLEH [id number] SLEH 00:01:57 DOMINGO 2023-02-13 Inpatient UR ELLIE, SLEH SLEH [id number] SLEH 16:37:23 DOMINGO 2023-02-13 Inpatient UR ELLIE, SLEH SLEH [id number] SLEH 13:47:03 DOMINGO 2023-02-13 Inpatient UR ELLIE, SLEH SLEH [id number] SLEH 00:10:28 DOMINGO 2023-02-12 Inpatient UR ELLIE, SLEH SLEH [id number] SLEH 00:09:05 DOMINGO 2023-02-11 Inpatient UR ELLIE, SLEH SLEH [id number] SLEH 00:01:39 DOMINGO 2023-02-10 Inpatient UR ELLIE, SLEH SLEH [id number] SLEH 00:03:08 DOMINGO 2023-02-09 Inpatient UR ELLIE, SLEH SLEH [id number] SLEH 00:03:14 DOMINGO 2023-02-08 Inpatient UR ELLIE, SLEH SLEH [id number] SLEH 00:23:29 DOMINGO 2023-02-07 Inpatient UR BOLTON, SLEH SLEH [id number] SLEH 18:25:27 ROBB 2023-02-07 Inpatient UR ELLIE, SLEH SLEH [id number] SLEH 00:05:32 DOMINGO 2023-02-06 Inpatient UR BLAMO, SLEH SLEH [id number] SLEH 10:17:27 BARON 2023-02-06 Inpatient UR SEN, SLEH SLEH [id number] SLEH 07:52:23 FACUNDO 2023-02-06 Inpatient UR NOTT, SLEH SLEH [id number] SLEH 07:52:09 MALCOLM 2023-02-06 Inpatient UR [facility] SLEH SLEH [id number] SLEH 06:31:36 LLA, SHAINA 2023-02-06 Inpatient UR [facility] SLEH SLEH [id number] SLEH 03:38:06 LLASHAINA 2023-02-06 Inpatient UR [facility] SLEH SLEH [id number] SLEH 03:16:00 LLA, SHAINA 2023-02-06 Inpatient UR CHERY, SLEH SLEH [id number] SLEH 02:14:49 WICHITA 2023-02-06 Inpatient UR CHERY, SLEH SLEH [id number] SLEH 01:39:53 WICHITA 2023-02-06 Inpatient UR [facility] SLEH SLEH [id number] SLEH 00:41:28 LLA, SHAINA 2023-02-06 Inpatient UR ELLIE, SLEH SLEH [id number] SLEH 00:19:44 DOMINGO 2023-02-05 Inpatient UR [facility] SLEH SLEH [id number] SLEH 23:31:36 LLA, SHAINA 2023-02-05 Inpatient UR ELLIE, SLEH SLEH [id number] SLEH 00:33:09 DOMINGO 2023-02-04 Inpatient UR TAMMY, SLEH SLEH [id number] SLEH 21:49:24 RAMYA 2023-02-04 Inpatient UR PAIGE, SLEH SLEH [id number] SLEH 12:45:03 SUBHASIS 2023-02-04 Inpatient UR [facility] SLEH SLEH [id number] SLEH 02:11:36 LLA, [facility] 2023 Inpatient UR LUDY-SMART SLEH SLEH [id number] SLEH 18:23:35 , [facility] 2023-02-01 Inpatient UR LOUIE, SLEH SLEH [id number] SLEH 13:06:22 PERE 2023-02-01 Inpatient UR LOUIE, SLEH SLEH [id number] SLEH 13:06:15 PERE 2023-02-01 Inpatient UR TAMMY, SLEH SLEH [id number] SLEH 13:06:00 RAMYAR 2023-02-01 Inpatient UR TAMMY, SLEH SLEH [id number] SLEH 13:05:51 RAMYAR 2023-02-01 Inpatient UR TAMMY, SLEH SLEH [id number] SLEH 00:00:00 RAMYAR 2023-01-27 Inpatient UR LESLIE, SLEH SLEH [id number] SLEH 10:26:05 BALA 2023-01-22 Inpatient UR LESLIE, SLEH SLEH [id number] SLEH 19:03:14 BALA 2023-01-22 Inpatient UR SLEH SLEH [id number] SLEH 11:43:40 2023-01-22 Inpatient UR SLEH SLEH [id number] SLEH 10:41:39 2023-01-22 Inpatient UR SLEH SLEH [id number] SLEH 09:28:49 2023-01-22 Inpatient UR SLEH SLEH [id number] SLEH 05:53:23 2023-01-22 Inpatient UR LESLIE, SLEH SLEH [id number] SLEH 00:00:00 BALA 2023-01-21 Inpatient UR BROUILLTAI, SLEH SLEH [id number] SLEH 03:56:27 [facility] 2023-01-20 Inpatient UR CARLOTALLTAI, SLEH SLEH [id number] SLEH 00:43:31 [facility] 2023-01-19 Inpatient UR CATALINA, SLEH SLEH [id number] SLEH 15:44:00 [facility] 2023-01-19 Inpatient UR LAQUINDANUM SLEH SLE [id number] SLEH 14:04:30 , RO 2023-01-19 Inpatient UR CATALINA, SLEH SLEH [id number] SLEH 13:23:06 [facility] 2023-01-19 Inpatient UR CATALINA, SLEH SLEH [id number] SLEH 10:47:50 [facility] 2023-01-19 Inpatient UR BINU, SLEH SLEH [id number] SLEH 01:32:22 [facility] 2023-01-18 Inpatient UR CARLOTALLTAI, SLEH SLEH [id number] SLEH 04:02:25 [facility] 2023-01-17 Inpatient UR SLEH SLEH [id number] SLEH 15:44:57 2023-01-17 Inpatient UR QUISPE, SLEH SLEH [id number] SLEH 09:42:58 CELINA 2023-01-17 Inpatient UR CARLOTALLTAI, SLEH SLEH [id number] SLEH 05:37:02 SCHUYLER 2023-01-17 Inpatient UR SLEH SLEH [id number] SLEH 01:47:29 2023-01-17 Inpatient UR SLEH SLEH [id number] SLEH 01:47:23 2023-01-11 Outpatient [facility] [id number] [place] 09:49:33 [id number] [facility] 2022-12-30 Outpatient [facility] [id number] [place] 15:59:42 [id number] [facility] 2022-11-18 Outpatient [facility] [id number] PR 14:53:40 [id number] [facility] 2022-08-21 Outpatient [place], STLMLC STLMLC [id number] Common 08:13:00 Michael 52038 [facility] 2022-08-20 Outpatient Grullon, STLMLC STLMLC [id number] Common 15:42:00 Michael [id number] [facility] 2022-05-27 Outpatient Grullon, STLMLC STLMLC [id number] Common 13:34:01 Michael [id number] [facility] 2022-05-21 Outpatient Grullon, STLMLC STLMLC [id number] Common 14:12:00 Michael [id number] [facility] 2022-04-28 Outpatient Grullon, STLMLC STLMLC [id number] Common 15:58:01 Michael 24485 [facility] 2022-04-20 Outpatient Grullon, STLMLC STLMLC [id number] Common 12:08:00 Michael [id number] [facility] 2022-04-09 Outpatient Grullon, STLMLC STLMLC [id number] Common 09:12:00 Michael 74567 [facility] 2022-03-23 Outpatient Grullon, STLMLC STLMLC [id number] Common 07:50:00 Michael 59390 [facility] 2021-12-18 Outpatient Grullon, STLMLC STLMLC [id number] Common 08:02:00 Michael [id number] [facility] 2021-08-11 Outpatient Grullon, STLMLC STLMLC [id number] Common 16:05:00 Michael [facility] 2021-07-14 Outpatient Grullon, STLMLC STLMLC [id number] Common 13:55:00 Michael [facility] 2021-07-09 Outpatient Grullon, STLMLC STLC [id number] Common 14:23:13 Michael 35669 [facility] 2021-07-09 Outpatient Grullon, STLMLC STLMLC [id number] Common 14:22:30 Michael 09050 [facility] 2021-07-09 Outpatient Grullon, STLMLC STLC [id number] Common 13:29:39 Michael 18307 [facility] 2021-07-09 Outpatient Grullon, STLMLC STLC [id number] Common 13:26:23 Michael 38029 [facility] 2021-07-09 Outpatient Grullon, STLMLC STLC [id number] Common 13:17:32 Michael 57796 [facility] 2021-07-09 Outpatient Grullon, STLMLC STLC [id number] Common 13:06:07 Michael 35455 [facility] 2021-07-09 Outpatient Grullon, STLMLC STLC [id number] Common 13:02:38 Michael 94592 [facility] 2021-07-09 Outpatient Grullon, STLMLC STLC [id number] Common 13:01:30 Michael 91654 [facility] 2021-07-09 Outpatient Grullon, STLMLC STLC [id number] Common 12:41:52 Michael 01591 [facility] 2021-07-09 Outpatient Grullon, STLMLC STLC [id number] Common 12:41:22 Michael 29664 [facility] 2021-07-09 Outpatient Grullon, STLMLC STLC [id number] Common 12:40:21 Michael 92544 [facility] 2021-07-09 Outpatient Grullon, STLMLC STLC [id number] Common 12:09:50 Michael 90677 [facility] 2021-07-09 Outpatient Grullon, STLMLC STLC [id number] Common 12:08:25 Michael 47055 [facility] 2021-07-09 [facility] [place] [id number] Common 12:07:24 Michael [id number] [facility] 2021-07-09 Outpatient Grullon, [facility] [id number] Common 11:39:10 Michael 79078 [facility] 2021-07-09 Out[facility] [place], [facility] [id number] Common 11:27:55 Michael [id number] [facility] 2021-07-09 Outpatient Grullon, [facility] [id number] Common 11:20:48 Michael [id number] [facility] 2021-07-09 Outpatient Grullon, [facility] [id number] Common 11:15:28 Michael [id number] [facility] 2023-01-17 2023-02-24 Inpatient UR [facility] SLEH Surgery [id number] SLEH 01:16:00 18:05:00 LLAVICESHAINA 2023-02-18 2023-02-18 Inpatient UR MOFOR, SLEH SLEH [id number] SLEH 14:25:12 00:00:00 LOYCE 2023-02-16 2023-02-16 Outpatient ELLIE, SLEH SLE [id number] SLEH 00:00:00 00:00:00 DOMINGO 2023-02-02 2023-02-02 Inpatient UR TAMMY, SLEH SLEH [id number] SLEH 13:27:14 23:59:00 RAMYAR 2023-01-30 2023-01-30 Inpatient UR CELESTINA, SLEH SLEH [id number] SLEH 16:54:07 23:59:00 SUMAYA 2023-01-22 2023-01-21 Inpatient UR NIXON, SLEH SLEH [id number] SLEH 00:22:23 00:00:00 MONIQUE 2023-01-22 2023-01-21 Inpatient UR NIXON, SLEH SLEH [id number] SLEH 00:22:01 00:00:00 MONIQUE 2023-01-19 2023-01-19 Inpatient UR CATALINA, SLEH SLEH [id number] SLEH 06:21:07 00:00:00 DUSTIN 2023-01-18 2023-01-18 Outpatient Debby [facility] [id number] Univers 16:00:00 16:00:00 [facility] 2023-01-17 2023-01-17 Inpatient UR , [facility] [id number] SLE 15:16:18 00:00:00 MOHAMMED 2023-01-11 2023-01-11 Ancillary Brian, [facility] [id number] [place] 10:00:00 11:00:05 Procedure Layla PURI [id number] [facility] [id number] 2022-12-28 2022-12-28 Outpatient Debby SINA, [facility] [id number] Univers 14:40:00 14:40:00 SINAALEJO [facility] 2022-12-14 2022-12-14 Outpatient Debby [facility] [id number] Univers 15:40:00 15:40:00 SINAALEJO [facility] 2022-12-10 2022-12-10 [facility] [id number] [id number] Univers 00:00:00 00:00:00 [facility] [id number] ity of [place] [id number] Nolan as ADIAN?BLEA [phone] [address] 2022-11-10 2022-11-10 [facility] [id number] [id number] Univers 00:00:00 00:00:00 [facility] [id number] ity of [place] [id number] Nolan as AIDAN?BLEA [id number] [address] 2022-11-05 2022-11-05 (TEL) [facility] [id number] Co mmon 00:00:00 00:00:00 [facility] 2022-10-05 2022-10-05 Outpatient Debby ALEJO [facility] [id number] Univers 09:20:00 10:23:04 ALEJO ANDINO itrai of [facility] 2022-10-05 2022-10-05 Office Sina [facility] 1.2.840.114 [id number] Univers 09:20:00 10:23:04 Visit [facility] [id number] ity of [place] [id number] Nolan as AIDAN?BLEA [phone] Ma dic[address] MEDICAL OFFICE BUILDING 2022-09-29 2022-09-29 Orders Doctor EVELYN [id number] [id number] Univers 00:00:00 00:00:00 Only Unassigned, KAMALJIT [id number] [place] [facility] [id number] Nolan as [phone] [address] 2022-09-02 2022-09-02 (TEL) STLMLC STLMLC [id number] Co mmon 00:00:00 00:00:00 [facility] 2022-08-25 2022-08-25 OFFICE STLC STLMLC [id number] Co mmon 00:00:00 00:00:00 VISIT Spirit ESTAB PT - CHI LEVEL 4 [facility] 2022-08-25 2022-08-25 SUB ANNUAL STLC STLC [id number] Common 00:00:00 00:00:00 MCR Spirit WELLNESS - CHI VISIT [facility] 2022-08-20 2022-08-20 (TEL) STLMLC STLMLC [id number] Co mmon 00:00:00 00:00:00 [facility] - [facility] 2022-08-03 2022-08-03 (TEL) STLC STLMLC [id number] Co mmon 00:00:00 00:00:00 [facility] 2022-07-22 2022-07-22 Outpatient NIK Neves [facility] [id number] [facility] 05:25:00 05:25:00 Keyur 26 [facility] 2022-07-22 2022-07-22 (TEL) STLMLC STLMLC [id number] Co mmon 00:00:00 00:00:00 [facility] 2022-07-13 2022-07-13 (TEL) STLMLC STLMLC [id number] Co mmon 00:00:00 00:00:00 [facility] 2022-06-30 2022-06-30 (TEL) STLMLC STLMLC [id number] Co mmon 00:00:00 00:00:00 [facility] 2022-06-24 2022-06-24 (TEL) STLMLC STLMLC [id number] Co mmon 00:00:00 00:00:00 [facility] 2022-06-16 2022-06-16 (TEL) STLMLC STLMLC [id number] Co mmon 00:00:00 00:00:00 [facility] 2022-06-02 2022-06-02 (TEL) STLMLC STLMLC [id number] Co mmon 00:00:00 00:00:00 [facility] 2022-05-27 2022-05-27 OFFICE STLMLC STLMLC [id number] Co mmon 00:00:00 00:00:00 VISIT EST Spir it PT LEVEL 3 - [facility] 2022-05-25 2022-05-25 OFFICE STLMLC STLMLC [id number] Co mmon 00:00:00 00:00:00 VISIT Spirit ESTAB PT - CHI LEVEL 4 [facility] 2022-04-28 2022-04-28 (TEL) STLMLC STLMLC [id number] Co mmon 00:00:00 00:00:00 [facility] 2022-04-09 2022-04-09 (TEL) STLMLC STLMLC [id number] Co mmon 00:00:00 00:00:00 [facility] 2022-04-09 2022-04-09 (TEL) STLMLC STLMLC [id number] Co mmon 00:00:00 00:00:00 [facility] 2022-04-06 2022-04-06 (TEL) STLMLC STLMLC [id number] Co mmon 00:00:00 00:00:00 [facility] 2022-03-27 2022-03-27 (TEL) STLMLC STLMLC [id number] Co mmon 00:00:00 00:00:00 [facility] 2022-03-19 2022-03-19 OFFICE STLMLC STLMLC [id number] Co mmon 00:00:00 00:00:00 VISIT [facility] 4 [facility] 2021-12-31 2021-12-31 ambulatory STLMLC STLMLC [id number] Common 00:00:00 00:00:00 [facility] 2021-12-31 2021-12-31 ambulatory STLMLC STLMLC [id number] Common 00:00:00 00:00:00 [facility] 2021-12-23 2021-12-23 ambulatory STLMLC STLMLC [id number] Common 00:00:00 00:00:00 [facility] 2021-12-22 2021-12-22 ambulatory STLMLC STLMLC [id number] Common 00:00:00 00:00:00 [facility] 2021-12-17 2021-12-17 ambulatory STLMLC STLMLC [id number] Common 00:00:00 00:00:00 [facility] 2021-11-21 2021-11-21 ambulatory STLMLC STLMLC [id number] Common 00:00:00 00:00:00 [facility] 2021-09-03 2021-09-03 ambulatory STLMLC STLMLC [id number] Common 00:00:00 00:00:00 [facility] 2021-09-03 2021-09-03 ambulatory STLMLC STLMLC [id number] Common 00:00:00 00:00:00 [facility] 2021-07-14 2021-07-14 ambulatory STLMLC STLMLC [id number] Common 00:00:00 00:00:00 [facility] 2021-07-07 2021-07-07 ambulatory STLMLC STLMLC [id number] Common 00:00:00 00:00:00 [facility] 2021-06-10 2021-06-10 ambulatory STLMLC STLMLC [id number] Common 00:00:00 00:00:00 [facility] 2021-05-21 2021-05-21 ambulatory STLMLC STLMLC [id number] Common 00:00:00 00:00:00 [facility] 2021-05-21 2021-05-21 ambulatory STLMLC STLMLC [id number] Common 00:00:00 00:00:00 [facility] 2021-05-14 2021-05-14 ambulatory STLMLC STLMLC [id number] Common 00:00:00 00:00:00 [facility] 2021-05-12 2021-05-12 ambulatory STLMLC STLMLC [id number] Common 00:00:00 00:00:00 [facility] 2021-04-07 2021-04-07 ambulatory STLMLC STLMLC [id number] Common 00:00:00 00:00:00 [facility] 2021-03-18 2021-03-18 Outpatient STLMLC STLMLC [id number] Common 00:00:00 00:00:00 [facility] 2021-03-17 2021-03-17 Outpatient STLMLC STLMLC [id number] Common 00:00:00 00:00:00 [facility] 2021-01-16 2021-01-16 Letter EVELYN Grullon 1.2.840.114 [id number] Univers 00:00:00 00:00:00 (Out) Michael MARI [id number] [facility] [place] [id number] Nolan as [phone] [facility] 043 Branch 2021-01-15 2021-01-15 Outpatient STLMLC STLMLC [id number] Common 00:00:00 00:00:00 [facility] 2021-01-15 2021-01-15 Outpatient STLMLC STLMLC [id number] Common 00:00:00 00:00:00 [facility] 2021-01-15 2021-01-15 Outpatient STLMLC STLMLC [id number] Common 00:00:00 00:00:00 [facility] 2021-01-14 2021-01-14 Outpatient STLMLC STLMLC [id number] Common 00:00:00 00:00:00 [facility] 2020-12-31 2020-12-31 Outpatient STLMLC STLMLC [id number] Common 00:00:00 00:00:00 [facility] 2020-12-23 2020-12-23 Patient Doctor EVELYN [id number] [id number] Univers 00:00:00 00:00:00 Secure Msg Unassigned, KAMALJIT [id number] [facility] [id number] Nolan as [phone] [facility] 019 Branch 2020-12-09 2020-12-09 Orders Doctor EVELYN 1.2.840.114 [id number] Univers 00:00:00 00:00:00 Only Unassigned, KAMALJIT [id number] it[place] [facility] [id number] Nolan as [phone] [facility] [address] 2020-12-02 2020-12-02 Outpatient STLMLC STLMLC [id number] Common 00:00:00 00:00:00 [facility] 2020-12-02 2020-12-02 Outpatient STLMLC STLMLC [id number] Common 00:00:00 00:00:00 [facility] 2020-11-18 2020-11-18 Outpatient STLMLC STLMLC [id number] Common 00:00:00 00:00:00 [facility] 2020-11-05 2020-11-05 Outpatient STLMLC STLMLC [id number] Common 00:00:00 00:00:00 [facility] 2020-11-04 2020-11-04 Outpatient STLMLC STLMLC [id number] Common 00:00:00 00:00:00 [facility] 2020-10-25 2020-10-25 Outpatient STLMLC STLMLC [id number] Common 00:00:00 00:00:00 [facility] 2020-10-16 2020-10-16 Outpatient STLMLC STLMLC [id number] Common 00:00:00 00:00:00 [facility] 2020-10-15 2020-10-15 Outpatient STLMLC STLMLC [id number] Common 00:00:00 00:00:00 [facility] 2020-10-15 2020-10-15 Outpatient STLMLC STLMLC [id number] Common 00:00:00 00:00:00 [facility] 2020-09-26 2020-09-26 Outpatient STLMLC STLMLC [id number] Common 00:00:00 00:00:00 [facility] 2020-08-28 2020-08-28 Outpatient STLMLC STLMLC [id number] Common 00:00:00 00:00:00 [facility] 2020-08-27 2020-08-27 Outpatient STLMLC STLMLC [id number] Common 00:00:00 00:00:00 [facility] 2020-05-14 2020-05-14 Outpatient STLMLC STLMLC [id number] Common 00:00:00 00:00:00 [facility] 2020-05-06 2020-05-06 Outpatient STLMLC STLMLC [id number] Common 00:00:00 00:00:00 [facility] 2020-04-11 2020-04-11 [facility] [id number] 10:11:59 23:59:00 Encounter [place] 350.1.13.10 [place] 4.2.7.2.686 [place] [id number] 2020-04-11 2020-04-11 [facility] Radiology [facility] 1.2.840.114 [id number] [facility] 10:11:59 23:59:00 Encounter [place] 350.1.13.10 ity of [place] 4.2.7.2.686 [facility] [id number] [facility] 804 [place] 2020-04-11 2020-04-11 [facility] Radiology [facility] [id number] 10:11:08 23:59:00 Encounter [place] 350.1.13.10 [place] 4.2.7.2.686 [place] [id number] 80 2020-04-11 2020-04-11 [facility] Radiology [facility] 1.2.840.114 [id number] [facility] 10:11:08 23:59:00 Encounter [place] 350.1.13.10 [place]y of [place] 4.2.7.2.686 [facility] [id number] [address] 2020-04-11 2020-04-11 Outpatient R RADIOLOGY [facility] [id number] [facility] 00:00:00 00:00:00 ity of [facility] 2020-04-11 2020-04-11 Orders Doctor EVELYN 1.2.840.114 [id number] 00:00:00 00:00:00 Only Unassigned, KAMALJIT 350.1.13.10 [place] [facility] 4.2.7.2.686 [id number] [facility] 2020-04-11 2020-04-11 Orders Doctor EVELYN 1.2.840.114 [id number] [facility] 00:00:00 00:00:00 Only Unassigned, KAMALJIT 350.1.13.10 ity of [place] [facility] 4.2.7.2.686 [place] [id number] [place] [address] [place] 2020-02-07 2020-02-07 [facility] 30 [id number] [place] 11:20:00 11:20:[address] [facility] 2020-01-29 2020-01-29 [facility] [id number] [place] 11:40:00 11:40:[address] [facility] 2020-01-16 2020-01-16 [facility] 31 [id number] [place] 11:15:00 11:15:[address] [facility] 2019-12-04 2019-12-04 [facility] 31 [id number] [place] 10:50:00 10:50:[address] [facility] 2019-11-08 2019-11-08 [facility] 29 [id number] [place] 15:00:00 15:00:[address] [facility] 2019-11-08 2019-11-08 [facility] 29 [id number] [place] 14:15:00 14:15:[address] [address] [facility] 2019-10-27 2019-10-27 [facility] 30 [id number] [place] 11:15:00 11:15:[address] [facility] 2019-10-24 2019-10-24 [facility] 30 [id number] [place] 16:04:00 16:04:00 t [facility] [address] [facility] 2019-10-20 2019-10-20 [facility] 30 [id number] Common 13:40:00 13:40:00 t [facility] [address] [facility] 2019-10-18 2019-10-18 [facility] 30 [id number] Common 14:05:00 14:05:[address] [address] [facility] 2019-09-21 2019-09-21 [facility] 30 [id number] Common 16:45:00 16:45:[address] [facility] 2019-09-05 2019-09-05 [facility] 30 [id number] Common 10:30:00 10:30:[address] [facility] 2019-08-08 2019-08-08 [facility] [id number] Common 15:00:00 15:00:[address] [facility] 2019-07-26 2019-07-26 [facility] 29 [id number] Common 16:37:00 16:37:[address] [facility] 2019-06-22 2019-06-22 [facility] [id number] Common 14:45:00 14:45:[address] [facility] 2019-06-19 2019-06-19 [facility] [id number] Common 15:45:00 15:45:[address] [facility] 2019-05-31 2019-05-31 [facility] [id number] Common 15:15:00 15:15:[address] [facility] 2019-05-03 2019-05-03 [facility] [id number] Common 10:37:00 10:37:[address] [facility] 2019-04-17 2019-04-17 [facility] [id number] Common 14:08:00 14:08:[address] [facility] 2019-04-17 2019-04-17 [facility] 28 [id number] Common 13:30:00 13:30:[address] [place] [address] [facility] 2019-03-28 2019-03-28 [facility] 27 [id number] Common 14:44:00 14:44:[address] [facility] 2019-03-23 2019-03-23 [facility] 26 [id number] Common 14:15:00 14:15:[address] [place] [address] [facility] 2019-03-02 2019-03-02 [facility] 27 [id number] Common 15:10:00 15:10:[address] [facility] 2019-02-23 2019-02-23 [facility] [id number] Common 10:00:00 10:00:[address] [facility] 2019-01-20 2019-01-20 [facility] 26 [id number] Common 13:43:00 13:43:[address] [facility] 2018-12-29 2018-12-29 [facility] 26 [id number] Common 14:42:00 14:42:[address] [address] [facility] 2018-12-21 2018-12-21 [facility] 25 [id number] Common 14:30:00 14:30:[address] [facility] 2018-12-06 2018-12-06 [facility] [id number] Common 14:04:00 14:04:[address] [place] [address] [facility] 2018-10-10 2018-10-10 [facility] [id number] Common 15:00:00 15:00:[address] [place] [address] [facility] 2018-09-16 2018-09-16 [facility] 25 [id number] Common 11:25:00 11:25:[address] [address] [facility] 2018-09-12 2018-09-12 [facility] 24 [id number] Common 14:15:00 14:15:[address] [address] [facility] 2018-08-11 2018-08-11 [facility] [id number] Common 13:45:00 13:45:[address] [facility] 2018-06-21 2018-06-21 [facility] 23 [id number] Common 10:15:00 10:15:[address] [facility] 2018-05-30 2018-05-30 [facility] 23 [id number] Common 10:28:00 10:28:[address] [facility] 2018-03-16 2018-03-16 [facility] 22 [id number] Common 15:07:00 15:07:[address] [facility] 2018-03-14 2018-03-14 [facility] 14 [id number] Common 15:00:00 15:00:[address] [address] [facility] 2018-02-28 2018-02-28 [facility] 21 [id number] Common 16:46:00 16:46:[address] [address] [facility] 2018-02-11 2018-02-11 [facility] 15 [id number] Common 09:17:00 09:17:[address] [address] [facility] 2018-02-04 2018-02-04 [facility] 15 [id number] Common 14:14:00 14:14:[address] [address] [facility] 2018 2018 [facility] 15 [id number] Common 15:57:00 15:57:[address] [facility] 2018-01-12 2018-01-12 [facility] 14 [id number] Common 14:34:00 14:34:[address] [address] [facility] 2018-01-10 2018-01-10 [facility] 14 [id number] Common 15:15:00 15:15:[address] [facility] 2017-11-22 2017-11-22 [facility] 14 [id number] Common 09:36:00 09:36:[address] [address] [facility] 2017-11-10 2017-11-10 [facility] 13 [id number] Common 13:30:00 13:30:[address] [facility] 2017-09-29 2017-09-29 Outpatient [facility] 12 [id number] Common 13:00:00 13:00:00 [employer] [facility] Results Test Description Test Time Test Comments [...] recovery and/or detection times of some organisms.BLOOD [id number] 22:01:14 Test Item Value Reference Range Interpretation Comments CULTURE (BEAKER) (test No growth in 5 days code = 1095) The specimen volume collected for this blood culture was below the optimum (10 mL per bottle or 20 mL total). Use of lower volumes may adversely affect recovery and/or detection times of some organisms.POCT-GLUCOSE [id number] 12:42:06 Test Item Value Reference Range Interpretation Comments POC-GLUCOSE METER 201 mg/dL 70-110 H : TESTED Rodrigo T [facility] 6720 (BEAKER) (test code = NABOR Guardado [facility], 1538) 93408: Heel Reducer/Techni marissa ID = [id number] for Valerie lane HEPATIC FUNCTION [id number] 12:36:00 Test Item Value Reference Range Interpretation [...] Specimen slightly (test code = 347) hemolyzed Heel Reducer ID - ADMINBRONCHIAL CULTURE + GRAM [id number] 11:37:11 Test Item Value Reference Range Interpretation Comments CULTURE (BEAKER) (test code No growth = 1095) GRAM STAIN RESULT (BEAKER) 2+ WBCs (test code = 1123) GRAM STAIN RESULT (BEAKER) No organisms seen (test code = 52479) BRONCHIAL CULTURE + GRAM [id number] 11:36:43 Test Item Value Reference Range Interpretation Comments CULTURE (BEAKER) (test code No growth = 1095) GRAM STAIN RESULT (BEAKER) 2+ WBCs (test code = 1123) GRAM STAIN RESULT (BEAKER) No organisms seen (test code = 33530) XR ABDOMEN/KUB 1 VIEW [id number] 11:22:51 [facility] 1965 Sex: MXR ABDOMEN/KUB 1 VIEW PORTABLECLINICAL INDICATION: abdominal pain COMPARISON: NoneTECHNIQUE: Single, frontal radiograph of the abdomen.FINDINGS:Status post placement of G- tube.The bowel gas pattern is nonspecific, but nonobstructive.Evaluation for free air is limited by portable supine technique. Withinthese limitations, no free air is identified. Electronically Signed By: Mavis Vinson02/24/2023 11:24 CDTWorkstation Name: [id number] 10:21:27 Test Item Value Reference Range Interpretation Comments POC-GLUCOSE METER 191 mg/dL 70-110 H : TESTED A T [facility] 6720 (BEAKER) (test code = NABOR CAMPBELL [place], 1538) 45014: Heel Reducer/Techni marissa ID = [id number] for Dionna Galarza XR CHEST 1 VIEW PORTABLE / [id number] 07:03:59 [facility] : 1965 Sex: MXR CHEST 1 VIEW PORTABLE / BEDSIDEINDICATION: post-opCOMPARISON: Prior day's examFINDINGS: Portable frontal view of the chest. IMPRESSION:Support Lines: Tracheostomy. PICC tip overlies the right axilla.Lungsand pleura: Unchanged bilateral airspace opacities concerning formultifocal pneumonia versus multifocal edema. No significantpneumothorax.Heart and mediastinum: Stable contours. Stable surgical changes.Additional findings: None. Electronically Signed By: Mavis Vinson02/24/2023 07:06 CDTWorkstation Name: [id number] METER 2023-02-24 06:36:47 Test Item Value Reference Range Interpretation Comments POC-GLUCOSE METER 214 mg/dL 70-110 H : TESTED A T [facility] 6720 (SUNG) (test code = NABOR Guardado [facility], 1538) 64737: Heel Reducer/Techni marissa ID = [id number] for Ng Trace dominguez [id number] 05:26:35 Test Item Value Reference Range Interpretation Comments PHOSPHORUS (BEAKER) (test code = 4.1 mg/dL 2.3-4.7 604) Heel Reducer ID - JOEL [id number] 05:26:08 Test Item Value Reference Range Interpretation Comments MAGNESIUM (BEAKER) (test code = 2.2 mg/dL 1.6-2.6 627) Heel Reducer ID - JOEL BBASIC METABOLIC [id number] 05:26:07 Test Item Value Reference Range Interpretation [...] not appl icable for dialysis patien ts Heel Reducer ID - JOEL BPOCT-GLUCOSE [id number] 04:40:22 Test Item Value Reference Range Interpretation Comments POC-GLUCOSE METER 190 mg/dL 70-110 H : TESTED A T [facility] 6720 (BEAKER) (test code = NABOR Guardado [facility], 1538) 92234: Heel Reducer/Techni marissa ID = [id number] for Ng angelicaCamposent POCT-GLUCOSE [id number] 00:27:31 Test Item Value Reference Range Interpretation Comments POC-GLUCOSE METER 208 mg/dL 70-110 H : TESTED A T [facility] 6720 (BEAKER) (test code = NABOR Guardado [facility], 1538) 97372: Heel Reducer/Techni marissa ID = [id number] for Ng angelica, Vincent POCT-GLUCOSE [id number] 21:21:37 Test Item Value Reference Range Interpretation Comments POC-GLUCOSE METER 179 mg/dL 70-110 H : TESTED A T [facility] 6720 (BEAKER) (test code = [facility], 1538) 34684: Heel Reducer/Techni marissa ID = [id number] for Ng angelica, Camposent POCT-GLUCOSE [id number] 18:44:33 Test Item Value Reference Range Interpretation Comments POC-GLUCOSE METER 190 mg/dL 70-110 H : TESTED A T [facility] 6720 (BEAKER) (test code = [facility], 1538) 11659: Heel Reducer/Techni marissa ID = [id number] for Br others, Lacy POCT-GLUCOSE [id number] 17:18:53 Test Item Value Reference Range Interpretation Comments POC-GLUCOSE METER 190 mg/dL 70-110 H : TESTED A T [facility] 6720 (BEAKER) (test code = [facility], 1538) 82484: Heel Reducer/Techni marissa ID = [id number] for Br others, Lacy BASIC METABOLIC [id number] 17:10:33 Test Item Value Reference Range Interpretation [...] not appl icable for dialysis patien ts Heel Reducer ID - JOEL [id number] 17:10:32 Test Item Value Reference Range Interpretation Comments PHOSPHORUS (BEAKER) 4.6 mg/dL 2.3-4.7 Specimen slightly (test code = 604) hemolyzed Heel Reducer ID - JOEL [id number] 17:10:31 Test Item Value Reference Range Interpretation Comments MAGNESIUM (BEAKER) 2.0 mg/dL 1.6-2.6 Specimen slightly (test code = 627) hemolyzed Heel Reducer ID - JOEL BPOCT-GLUCOSE [id number] 16:00:35 Test Item Value Reference Range Interpretation Comments POC-GLUCOSE METER 159 mg/dL 70-110 H : TESTED A T [facility] 6720 (BEAKER) (test code = [facility], 1538) 63250: Heel Reducer/Techni marissa ID = [id number] for Br others, Lacy POCT-GLUCOSE [id number] 14:18:33 Test Item Value Reference Range Interpretation Comments POC-GLUCOSE METER 110 mg/dL 70-110 : TESTED A T [facility] 6720 (BEAKER) (test code = [facility], 1538) 02134: Heel Reducer/Techni marissa ID = [id number] for Br others, Lacy POCT-GLUCOSE [id number] 13:31:29 Test Item Value Reference Range Interpretation Comments POC-GLUCOSE METER 96 mg/dL 70-110 : TESTED A T [facility] 6720 (BEAKER) (test code = [facility], 1538) 32273: Heel Reducer/Techni marissa ID = [id number] for Brot hers, Lacy POCT-GLUCOSE [id number] 12:46:27 Test Item Value Reference Range Interpretation Comments POC-GLUCOSE METER 79 mg/dL 70-110 : TESTED A T [facility] 6720 (BEAKER) (test code = [facility], 1538) 03551: Heel Reducer/Techni marissa ID = [id number] for Brot hers, Lacy POCT-GLUCOSE [id number] 12:25:36 Test Item Value Reference Range Interpretation Comments POC-GLUCOSE METER 58 mg/dL 70-110 L : TESTED A T [facility] 6720 (BEAKER) (test code = [facility], 1538) 53708: Heel Reducer/Techni marissa ID = [id number] for Brot hers, Lacy POCT-GLUCOSE [id number] 11:59:22 Test Item Value Reference Range Interpretation Comments POC-GLUCOSE METER 69 mg/dL 70-110 L : TESTED A T [facility] 6720 (BEAKER) (test code = [facility], 1538) 27229: Heel Reducer/Techni marissa ID = [id number] for Brot hers, Lacy POCT-GLUCOSE [id number] 11:41:08 Test Item Value Reference Range Interpretation Comments POC-GLUCOSE METER 55 mg/dL 70-110 L : TESTED A T [facility] 6720 (BEAKER) (test code = [facility], 1538) 73434: Heel Reducer/Techni marissa ID = [id number] for Brot hers, Lacy POCT-GLUCOSE [id number] 09:45:56 Test Item Value Reference Range Interpretation Comments POC-GLUCOSE METER 145 mg/dL 70-110 H : TESTED A T [facility] 6720 (BEAKER) (test code = [facility], 1538) 64215: Heel Reducer/Techni marissa ID = [id number] for Br others, Lacy POCT-GLUCOSE [id number] 08:29:26 Test Item Value Reference Range Interpretation Comments POC-GLUCOSE METER 216 mg/dL 70-110 H : TESTED A T [facility] 6720 (BEAKER) (test code = [facility], 1538) 24802: Heel Reducer/Techni marissa ID = [id number] for Br others, Lacy POCT-GLUCOSE [id number] 07:41:52 Test Item Value Reference Range Interpretation Comments POC-GLUCOSE METER 253 mg/dL 70-110 H : TESTED A T [facility] 6720 (BEAKER) (test code = [facility], 1538) 79615: Heel Reducer/Techni marissa ID = [id number] for Lacy Yoder XR CHEST 1 VIEW PORTABLE / [id number] 07:35:08 [facility] : 1965 Sex: MXR CHEST 1 VIEW PORTABLE / BEDSIDEINDICATION: daily morningCOMPARISON: Prior day's examFINDINGS: Portable frontal view of the chest. IMPRESSION:Support Lines: Tracheostomy. PICC tip overlies the right axilla.Lungs and pleura: Unchanged bilateral airspace opacities concerning formultifocal pneumonia versus multifocal edema. No significantpneumothorax.Heart and mediastinum: Stable contours. Stable surgical changes.Additional findings: None. Electronically Signed By: Mavis Vinson02/23/2023 07:37 CDTWorkstation Name: [id number] [id number] 2023-02-23 06:33:11 Test Item Value Reference Range Interpretation Comments POC-GLUCOSE METER 230 mg/dL 70-110 H : TESTED A T [facility] 6720 ([employer]) (test code = [facility], 1538) 92508: Heel Reducer/Techni marissa ID = [id number] for Ng angelica, Vincent POCT-GLUCOSE [id number] 06:07:00 Test Item Value Reference Range Interpretation Comments POC-GLUCOSE METER 150 mg/dL 70-110 H : TESTED A T [facility] 6720 ([employer]) (test code = [facility], 1538) 43786: Heel Reducer/Techni marissa ID = [id number] for Ng angelica, Vincent POCT-GLUCOSE [id number] 04:32:12 Test Item Value Reference Range Interpretation Comments POC-GLUCOSE METER 90 mg/dL 70-110 : TESTED A T [facility] 6720 (BEAKER) (test code = [facility], 1538) 44543: Heel Reducer/Techni marissa ID = [id number] for Trace Reece BASIC METABOLIC [id number] 04:25:50 Test Item Value Reference Range Interpretation [...] not appl icable for dialysis patien ts Heel Reducer ID - SOURAV [id number] 04:25:49 Test Item Value Reference Range Interpretation Comments PHOSPHORUS (BEAKER) 3.5 mg/dL 2.3-4.7 Specimen slightly (test code = 604) hemolyzed Heel Reducer ID - SOURAV [id number] 04:25:48 Test Item Value Reference Range Interpretation Comments MAGNESIUM (BEAKER) 2.2 mg/dL 1.6-2.6 Specimen slightly (test code = 627) hemolyzed Heel Reducer BEULAH BENJAMIN WCBC W/PLT COUNT & AUTO [id number] 03:55:38 Test Item Value Reference Range Interpretation [...] PERCENT (BEAKER) (test code = 2801) POCT-GLUCOSE [id number] 03:54:26 Test Item Value Reference Range Interpretation Comments POC-GLUCOSE METER 86 mg/dL 70-110 : TESTED A T [facility] 6720 (BEAKER) (test code = [facility], [facility]) 77951: Heel Reducer/Techni marissa ID = [id number] for Nguy en, Vincent POCT-GLUCOSE [id number] 01:09:29 Test Item Value Reference Range Interpretation Comments POC-GLUCOSE METER 128 mg/dL 70-110 H : TESTED A T [facility] 6720 (BEAKER) (test code = [facility]) 57395: Heel Reducer/Techni marissa ID = [id number] for Ng angelica, Vincent POCT-GLUCOSE [id number] 00:10:53 Test Item Value Reference Range Interpretation Comments POC-GLUCOSE METER 162 mg/dL 70-110 H : TESTED A T [facility] 6720 (BEAKER) (test code = [facility], [facility]) 53364: Heel Reducer/Techni marissa ID = [id number] for SC MS, SENORA POCT-GLUCOSE [id number] 23:33:28 Test Item Value Reference Range Interpretation Comments POC-GLUCOSE METER 193 mg/dL 70-110 H : TESTED A T [facility] 6720 (BEAKER) (test code = [facility], [facility]) 98099: Heel Reducer/Techni marissa ID = [id number] for Ng angelica, Vincent POCT-GLUCOSE [id number] 22:16:10 Test Item Value Reference Range Interpretation Comments POC-GLUCOSE METER 207 mg/dL 70-110 H : TESTED A T [facility] 6720 (BEAKER) (test code = [facility], [facility]) 12866: Heel Reducer/Techni marissa ID = [id number] for Ng angelica, Vincent POCT-GLUCOSE [id number] 20:56:11 Test Item Value Reference Range Interpretation Comments POC-GLUCOSE METER 71 mg/dL 70-110 : TESTED A T [facility] 6720 (BEAKER) (test code = [facility], 1538) 78529: Heel Reducer/Techni marissa ID = [id number] for Trace Reece POCT-GLUCOSE [id number] 18:37:56 Test Item Value Reference Range Interpretation Comments POC-GLUCOSE METER 179 mg/dL 70-110 H : TESTED A T [facility] 6720 (BEAKER) (test code = [facility], 1538) 10324: Heel Reducer/Techni marissa ID = [id number] for Br others, Lacy POCT-GLUCOSE [id number] 15:47:54 Test Item Value Reference Range Interpretation Comments POC-GLUCOSE METER 138 mg/dL 70-110 H : TESTED A T [facility] 6720 (BEAKER) (test code = [facility], 1538) 01286: Heel Reducer/Techni marissa ID = [id number] for Br others, Lacy [id number] 14:31:05 Test Item Value Reference Range Interpretation Comments PHOSPHORUS (BEAKER) (test code = 4.9 mg/dL 2.3-4.7 H 604) Heel Reducer ID - [id number] 14:31:04 Test Item Value Reference Range Interpretation Comments MAGNESIUM (BEAKER) (test code = 2.3 mg/dL 1.6-2.6 627) Heel Reducer ID - ADMINBASIC METABOLIC [id number] 14:31:03 Test Item Value Reference Range Interpretation [...] not appl icable for dialysis patien ts Heel Reducer ID - ADMINPOCT-GLUCOSE [id number] 13:14:36 Test Item Value Reference Range Interpretation Comments POC-GLUCOSE METER 129 mg/dL 70-110 H : TESTED A T [facility] 6720 ([employer] (test code = [place]AN[place] Debby [facility], 1538) 83722: Heel Reducer/Techni marissa ID = [id number] for Br others, Lacy POCT-GLUCOSE [id number] 11:12:53 Test Item Value Reference Range Interpretation Comments POC-GLUCOSE METER 120 mg/dL 70-110 H : TESTED A T [facility] 6720 ([employer] (test code = BLANCAT[place] Debby [facility], 1538) 92593: Heel Reducer/Techni marissa ID = [id number] for Br others, Lacy XR CHEST 1 VIEW PORTABLE / [id number] 09:53:47 [facility] : 1965 Sex: MXR [...] Signed By: Mavis Vinson02/22/2023 09:55 CDTWorkstation Name: [id number] MISCELLANEOUS LAB [id number] 09:18:13 Test Item Value Reference Range Interpretation Comments SCAN RESULT (test code = See scanned report. [id number]) POCT-GLUCOSE [id number] 08:15:41 Test Item Value Reference Range Interpretation Comments POC-GLUCOSE METER 123 mg/dL 70-110 H : TESTED A T [facility] 6720 (BEAKER) (test code = [facility], 1538) 88773: Heel Reducer/Techni marissa ID = [id number] for Lacy Yoder POCT-GLUCOSE [id number] 06:07:01 Test Item Value Reference Range Interpretation Comments POC-GLUCOSE METER 127 mg/dL 70-110 H : TESTED A T [facility] 6720 (BEAKER) (test code [facility], = 1538) 96834: Heel Reducer/Techni marissa ID = [id number] for Donnie isAlfredo C-REACTIVE [id number] 03:38:32 Test Item Value Reference Range Interpretation Comments C-REACTIVE PROTEIN (BEAKER) (test 2.64 mg/dL 0.00-0.50 H code = 676) Heel Reducer ID - JOEL [id number] 03:38:31 Test Item Value Reference Range Interpretation Comments ALBUMIN (BEAKER) (test code = 1145) 2.7 g/dL 3.5-5.0 L Heel Reducer ID - JOEL [id number] 03:38:30 Test Item Value Reference Range Interpretation Comments PHOSPHORUS (BEAKER) (test code = 3.9 mg/dL 2.3-4.7 604) Heel Reducer ID - JOEL [id number] 03:38:29 Test Item Value Reference Range Interpretation Comments MAGNESIUM (BEAKER) (test code = 2.4 mg/dL 1.6-2.6 627) Heel Reducer ID - JOEL BBASIC METABOLIC [id number] 03:38:28 Test Item Value Reference Range Interpretation [...] not appl icable for dialysis patien ts Heel Reducer ID - JOEL [id number] 03:17:21 Test Item Value Reference Range Interpretation Comments PREALBUMIN (BEAKER) (test code = 18 mg/dL 14-45 586) Heel Reducer ID - JOEL BPOCT-GLUCOSE [id number] 03:08:49 Test Item Value Reference Range Interpretation Comments POC-GLUCOSE METER 115 mg/dL 70-110 H : TESTED A T [facility] 6720 (BEAKER) (test code [facility], = 1538) 79186: Heel Reducer/Techni marissa ID = [id number] for Alfredo Virk CBC W/PLT COUNT & AUTO [id number] 02:56:04 Test Item Value Reference Range Interpretation [...] PERCENT (BEAKER) (test code = 2801) POCT-GLUCOSE [id number] 02:24:18 Test Item Value Reference Range Interpretation Comments POC-GLUCOSE METER 140 mg/dL 70-110 H : TESTED A T [facility] 6720 (BETRENT) (test code [facility], = 1538) 18912: Heel Reducer/Techni marissa ID = [id number] for Alfredo Virk XR ABDOMEN/KUB 1 VIEW [id number] 01:41:51 [facility]CLE[facility] : 1965 Sex: MCLINICAL HISTORY: small bowel [...] no acute bony abnormality.Electronically Signed By: Sly Zapata02/22/2023 01:43 CDTWorkstation Name: [id number] ABDOMEN/KUB 1 VIEW [id number] 01:20:36 [facility] : 1965 Sex: MEXAM: XR Abdomen, 1 ViewCLINICAL INDICATION: Feeding tube placementTECHNIQUE: Frontal supine view of the abdomen/pelvis.COMPARISON: No relevant prior studies available.FINDINGS:Gastrointestinal tract: Bowelloops are nondilated. Bowel gas patternis unremarkable.Bones/joints: Unremarkable.Tubes, lines and devices: There is a Corpak type feeding tube extendingthrough the lower esophagus and stomach into thethird portion of theduodenum.IMPRESSION:There is a Corpak type feeding tube extending through the loweresophagus and stomach into the third portion of the duodenum.Electronically Signed By: Delvis Altamirano02/22/2023 01:22 CDTWorkstation Name: [id number] 01:09:17 Test Item Value Reference Range Interpretation Comments POC-GLUCOSE METER 163 mg/dL 70-110 H : TESTED A T [facility] 6720 (BEAKER) (test code [facility], = 1538) 95663: Heel Reducer/Techni marissa ID = [id number] for Torm is, Mariechella POCT-GLUCOSE [id number] 00:12:00 Test Item Value Reference Range Interpretation Comments POC-GLUCOSE METER 142 mg/dL 70-110 H : TESTED A T [facility] 6720 (BEAKER) (test code [facility], = 1538) 43403: Heel Reducer/Techni marissa ID = [id number] for Torm is, Mariechella POCT-GLUCOSE [id number] 23:48:31 Test Item Value Reference Range Interpretation Comments POC-GLUCOSE METER 109 mg/dL 70-110 : TESTED A T [facility] 6720 (BEAKER) (test code [facility], = 1538) 64069: Heel Reducer/Techni marissa ID = [id number] for Torm is, Mariechella POCT-GLUCOSE [id number] 23:19:06 Test Item Value Reference Range Interpretation Comments POC-GLUCOSE METER 91 mg/dL 70-110 : TESTED A T [facility] 6720 (BEAKER) (test code [facility], = 1538) 31194: Heel Reducer/Techni marissa ID = [id number] for Torm is, Mariechella POCT-GLUCOSE [id number] 22:19:52 Test Item Value Reference Range Interpretation Comments POC-GLUCOSE METER 107 mg/dL 70-110 : TESTED A T [facility] 6720 (BEAKER) (test code [facility], = 1538) 36436: Heel Reducer/Techni marissa ID = [id number] for Torm is, Mariechella POCT-GLUCOSE [id number] 21:20:13 Test Item Value Reference Range Interpretation Comments POC-GLUCOSE METER 116 mg/dL 70-110 H : TESTED A T [facility] 6720 (BEAKER) (test code [facility], = 1538) 94298: Heel Reducer/Techni marissa ID = [id number] for Torm is, Fabyechella BASIC METABOLIC [id number] 20:57:52 Test Item Value Reference Range Interpretation [...] not appl icable for dialysis patien ts Heel Reducer ID - [id number] 20:57:51 Test Item Value Reference Range Interpretation Comments PHOSPHORUS (BEAKER) 4.5 mg/dL 2.3-4.7 Specimen moderately (test code = 604) hemolyzed Heel Reducer ID - [id number] 20:57:50 Test Item Value Reference Range Interpretation Comments MAGNESIUM (BEAKER) 2.4 mg/dL 1.6-2.6 Specimen moderately (test code = 627) hemolyzed Heel Reducer ID - EMPOCT-GLUCOSE [id number] 20:27:09 Test Item Value Reference Range Interpretation Comments POC-GLUCOSE METER 105 mg/dL 70-110 : TESTED A T [facility] 6720 (BEAKER) (test code [facility], = 1538) 56778: Heel Reducer/Techni marissa ID = [id number] for Torm is, Mariechella POCT-GLUCOSE [id number] 19:13:10 Test Item Value Reference Range Interpretation Comments POC-GLUCOSE METER 147 mg/dL 70-110 H : TESTED A T [facility] 6720 (BEAKER) (test code [facility], = 1538) 60376: Heel Reducer/Techni marissa ID = [id number] for Torm is, Mariechella POCT-GLUCOSE [id number] 18:08:01 Test Item Value Reference Range Interpretation Comments POC-GLUCOSE METER 167 mg/dL 70-110 H : TESTED A T [facility] 6720 (BEAKER) (test code = [facility], 1538) 88673: Heel Reducer/Techni marissa ID = [id number] for Chano Akers POCT-GLUCOSE [id number] 17:07:49 Test Item Value Reference Range Interpretation Comments POC-GLUCOSE METER 185 mg/dL 70-110 H : TESTED A T [facility] 6720 (SUNG) (test code = [facility] [place], 1538) 56079: Heel Reducer/Techni marissa ID = [id number] for Chano Akers POCT-GLUCOSE [id number] 16:07:18 Test Item Value Reference Range Interpretation Comments POC-GLUCOSE METER 211 mg/dL 70-110 H : TESTED A Carmen [facility] 6720 (SUNG) (test code = [facility] [place], 1538) 25670: Heel Reducer/Techni marissa ID = [id number] for Chano Akers XR ABDOMEN/KUB 1 VIEW [id number] 15:07:53 [facility] CARMINA DEXTER GRIGGS : 1965 Sex: MTECHNIQUE: Single View of [...] recent chest radiograph regarding intrathoracicfindings.Electronically Signed By: HbsdQyuf05/10/2023 15:09 CDTWorkstation Name: [id number] 14:48:52 Test Item Value Reference Range Interpretation Comments POC-GLUCOSE METER 255 mg/dL 70-110 H : TESTED A T [facility] 6720 (SUNG) (test code = [facility] [place], 1538) 06948: Heel Reducer/Techni marissa ID = [id number] for Chano Akers [id number] 13:08:59 Test Item Value Reference Range Interpretation Comments PHOSPHORUS (BEAKER) (test code = 4.4 mg/dL 2.3-4.7 604) Heel Reducer ID - JOEL [id number] 13:08:58 Test Item Value Reference Range Interpretation Comments MAGNESIUM (BEAKER) (test code = 2.3 mg/dL 1.6-2.6 627) Heel Reducer ID - JOEL BCALCIUM, [id number] 12:44:22 Test Item Value Reference Range Interpretation Comments CALCIUM IONIZED (BEAKER) (test 1.06 mmol/L 1.12-1.27 L code = 698) PH, BLOOD (BEAKER) (test code = 7.44 1810) POCT-GLUCOSE [id number] 12:34:14 Test Item Value Reference Range Interpretation Comments POC-GLUCOSE METER 223 mg/dL 70-110 H : TESTED A T [facility] 6720 (BEAKER) (test code = [facility] [place], 1538) 18159: Heel Reducer/Techni marissa ID = [id number] for Chano Akers BASIC METABOLIC [id number] 10:02:07 Test Item Value Reference Range Interpretation [...] not appl icable for dialysis patien ts Heel Reducer ID - EMHEPATIC FUNCTION [id number] 09:58:25 Test Item Value Reference Range Interpretation [...] (test code = 21 U/L 6-55 347) Heel Reducer ID - EMPOCT-GLUCOSE [id number] 09:14:21 Test Item Value Reference Range Interpretation Comments POC-GLUCOSE METER 113 mg/dL 70-110 H : TESTED A T [facility] 6720 (BEAKER) (test code = [facility] [place], 1538) 43456: Heel Reducer/Techni marissa ID = [id number] for Chano Akers CBC W/PLT COUNT & AUTO [id number] 08:49:52 Test Item Value Reference Range Interpretation [...] PERCENT (BEAKER) (test code = 2801) POCT-GLUCOSE [id number] 07:32:24 Test Item Value Reference Range Interpretation Comments POC-GLUCOSE METER 115 mg/dL 70-110 H : TESTED A T [facility] 6720 (BEAKER) (test code = [facility] [place], 1538) 91830: Heel Reducer/Techni marissa ID = [id number] for Chano Akers XR CHEST 1 VIEW PORTABLE / [id number] 06:55:38 [facility] : 1965 Sex: MChestone view:HISTORY: daily morningComparison: Previous day's studySupport apparatus: Not significantly changed in position.Cardiomegaly and bilateral opacities suggesting pulmonary edema areagain noted. There is no pneumothorax or significant effusion.Sternotomy changes are again noted. Overall there hasbeen nosignificant interval change.Electronically Signed By: Saad Sampson02/21/2023 06:57 CDTWorkstation Name: [id number] METER 2023-02-21 06:39:56 Test Item Value Reference Range Interpretation Comments POC-GLUCOSE METER 127 mg/dL 70-110 H : TESTED A T [facility] 6720 (FoodBuzz) (test code = [facility], 1538) 28795: Heel Reducer/Techni marissa ID = [id number] for He rnandez, Jessica POCT-GLUCOSE [id number] 05:02:26 Test Item Value Reference Range Interpretation Comments POC-GLUCOSE METER 168 mg/dL 70-110 H : TESTED A T [facility] 6720 (BEAKER) (test code = [facility], 1538) 66123: Heel Reducer/Techni marissa ID = [id number] for He rnandez, Jessica POCT-GLUCOSE [id number] 01:51:34 Test Item Value Reference Range Interpretation Comments POC-GLUCOSE METER 212 mg/dL 70-110 H : TESTED A T [facility] 6720 (BEAKER) (test code = [facility], 1538) 57431: Heel Reducer/Techni marissa ID = [id number] for He rnandez, Jessica POCT-GLUCOSE [id number] 00:36:06 Test Item Value Reference Range Interpretation Comments POC-GLUCOSE METER 220 mg/dL 70-110 H : TESTED A T [facility] 6720 (BEAKER) (test code = [facility] [place], 1538) 05364: Heel Reducer/Techni marissa ID = [id number] for Jessica Paredes [id number] 23:09:21 Test Item Value Reference Range Interpretation Comments PHOSPHORUS (BEAKER) (test code = 3.9 mg/dL 2.3-4.7 604) [id number] 23:08:45 Test Item Value Reference Range Interpretation Comments MAGNESIUM (BEAKER) (test code = 2.2 mg/dL 1.6-2.6 627) BASIC METABOLIC [id number] 23:08:24 Test Item Value Reference Range Interpretation [...] appl icable for dialysis patien ts POCT-GLUCOSE [id number] 22:11:17 Test Item Value Reference Range Interpretation Comments POC-GLUCOSE METER 118 mg/dL 70-110 H : TESTED A T [facility] 6720 (BEAKER) (test code = [facility], 1538) 23424: Heel Reducer/Techni marissa ID = [id number] for Jessica Paredes POCT-GLUCOSE [id number] 19:58:04 Test Item Value Reference Range Interpretation Comments POC-GLUCOSE METER 257 mg/dL 70-110 H : TESTED A T [facility] 6720 (BEAKER) (test code = [facility], 1538) 61308: Heel Reducer/Techni marissa ID = [id number] for Jessica Paredes POCT-GLUCOSE [id number] 18:45:03 Test Item Value Reference Range Interpretation Comments POC-GLUCOSE METER 276 mg/dL 70-110 H : TESTED A T [facility] 6720 (BEAKER) (test code = [facility], 1538) 93249: Heel Reducer/Techni marissa ID = [id number] for Bu ggs (contract), Gaf jessicay POCT-GLUCOSE [id number] 14:53:09 Test Item Value Reference Range Interpretation Comments POC-GLUCOSE METER 305 mg/dL 70-110 H : TESTED A T [facility] 6720 (BEAKER) (test code = [facility], 1538) 10797: Heel Reducer/Techni marissa ID = [id number] for Bu ggs (contract), Gaf fery [id number] 13:16:36 Test Item Value Reference Range Interpretation Comments PHOSPHORUS (BEAKER) (test code = 5.6 mg/dL 2.3-4.7 H 604) Heel Reducer ID - JOEL [id number] 13:16:35 Test Item Value Reference Range Interpretation Comments MAGNESIUM (BEAKER) (test code = 2.5 mg/dL 1.6-2.6 627) Heel Reducer ID - JOEL BBASIC METABOLIC [id number] 13:16:34 Test Item Value Reference Range Interpretation [...] not appl icable for dialysis patien ts Heel Reducer ID - JOEL BPOCT-GLUCOSE [id number] 13:01:27 Test Item Value Reference Range Interpretation Comments POC-GLUCOSE METER 221 mg/dL 70-110 H : TESTED A T [facility] 6720 ([employer]) (test code = [facility], 1538) 05003: Heel Reducer/Techni marissa ID = [id number] for Bu ggs (contract), Gaf fery POCT-GLUCOSE [id number] 11:25:07 Test Item Value Reference Range Interpretation Comments POC-GLUCOSE METER 99 mg/dL 70-110 : TESTED A T [facility] 6720 ([employer]) (test code = [facility], 1538) 95247: Heel Reducer/Techni marissa ID = [id number] for Estrellita s (contract), Gaf fery POCT-GLUCOSE [id number] 11:02:24 Test Item Value Reference Range Interpretation Comments POC-GLUCOSE METER 86 mg/dL 70-110 : TESTED A T [facility] 6720 ([facility]) (test code = NABOR Guardado [facility], 1538) 32070: Heel Reducer/Techni marissa ID = [id number] for Estrellita s (contract), fery POCT-GLUCOSE [id number] 09:03:24 Test Item Value Reference Range Interpretation Comments POC-GLUCOSE METER 123 mg/dL 70-110 H : TESTED A T [facility] 6720 ([facility]) (test code = [facility] Guardado [facility], 1538) 66137: Heel Reducer/Techni marissa ID = [id number] for Bu ggs (contract), Gawenceslao lopezy XR CHEST 1 VIEW PORTABLE / [id number] 07:21:11 [facility]CLEO GRIGGS : 1965 Sex: MChestone view:HISTORY: daily morningComparison: Previous day's studySupport apparatus: Not significantly changed in position. Intervalplacement of a nasogastric tube which extends into the body of thestomach.Mild perihilar vascular congestion is again present. A small lefteffusion is suspected. There is nopneumothorax. Cardiac size isunchanged. Sternotomy changes are again noted.Electronically Signed By:Saad Sampson02/20/2023 07:23 CDTWorkstation Name: [id number]- GLUCOSE [id number] 06:51:12 Test Item Value Reference Range Interpretation Comments POC-GLUCOSE METER 138 mg/dL 70-110 H : [facility] (test code = [facility], 1538) 55805: Heel Reducer/Techni marissa ID = [id number] for Jessica Paredes POCT-GLUCOSE [id number] 05:16:53 Test Item Value Reference Range Interpretation Comments POC-GLUCOSE METER 171 mg/dL 70-110 H : TESTED A T [facility] 6720 (BEAKER) (test code = [facility], 1538) 35486: Heel Reducer/Techni marissa ID = [id number] for Jessica Paredes [id number] 04:38:55 Test Item Value Reference Range Interpretation Comments PHOSPHORUS (BEAKER) (test code = 4.2 mg/dL 2.3-4.7 604) Heel Reducer ID - [id number] 04:38:54 Test Item Value Reference Range Interpretation Comments MAGNESIUM (BEAKER) (test code = 2.5 mg/dL 1.6-2.6 627) Heel Reducer ID - FSEBASIC METABOLIC [id number] 04:38:53 Test Item Value Reference Range Interpretation [...] not appl icable for dialysis patien ts Heel Reducer ID - FSEPOCT-GLUCOSE [id number] 04:17:19 Test Item Value Reference Range Interpretation Comments POC-GLUCOSE METER 142 mg/dL 70-110 H : TESTED A T [facility] 6720 (BEAKER) (test code = [facility], 1538) 21489: Heel Reducer/Techni marissa ID = [id number] for Jessica Paredes CBC W/PLT COUNT & AUTO [id number] 03:48:41 Test Item Value Reference Range Interpretation [...] PERCENT (BEAKER) (test code = 2801) POCT-GLUCOSE [id number] 02:51:13 Test Item Value Reference Range Interpretation Comments POC-GLUCOSE METER 99 mg/dL 70-110 : TESTED A T [facility] 6720 (BEAKER) (test code = [facility], 1538) 59340: Heel Reducer/Techni marissa ID = [id number] for Jessica Hadley POCT-GLUCOSE [id number] 01:02:23 Test Item Value Reference Range Interpretation Comments POC-GLUCOSE METER 146 mg/dL 70-110 H : TESTED A T [facility] 6720 (BEAKER) (test code = [facility], 1538) 99045: Heel Reducer/Techni marissa ID = [id number] for Jessica Paredes [id number] 22:40:27 Test Item Value Reference Range Interpretation Comments PHOSPHORUS (BEAKER) (test code = 4.5 mg/dL 2.3-4.7 604) Heel Reducer ID - [id number] 22:40:26 Test Item Value Reference Range Interpretation Comments MAGNESIUM (BEAKER) (test code = 2.4 mg/dL 1.6-2.6 627) Heel Reducer ID - FSEBASIC METABOLIC [id number] 22:40:25 Test Item Value Reference Range Interpretation [...] not appl icable for dialysis patien ts Heel Reducer ID - FSEPOCT-GLUCOSE [id number] 22:20:02 Test Item Value Reference Range Interpretation Comments POC-GLUCOSE METER 190 mg/dL 70-110 H : TESTED A T [facility] 6720 ([employer]) (test code = [facility], 1538) 84045: Heel Reducer/Techni marissa ID = [id number] for Francois karimi, Jessica POCT-GLUCOSE [id number] 22:00:12 Test Item Value Reference Range Interpretation Comments POC-GLUCOSE METER 184 mg/dL 70-110 H : TESTED A T [facility] 6720 (BEAKER) (test code = [facility], 1538) 65049: Heel Reducer/Techni marissa ID = [id number] for He rnandez, Jessica POCT-GLUCOSE [id number] 20:23:28 Test Item Value Reference Range Interpretation Comments POC-GLUCOSE METER 226 mg/dL 70-110 H : TESTED A T [facility] 6720 (BEAKER) (test code = [facility], 1538) 03450: Heel Reducer/Techni marissa ID = [id number] for Br joie, Lacy POCT-GLUCOSE [id number] 18:40:08 Test Item Value Reference Range Interpretation Comments POC-GLUCOSE METER 197 mg/dL 70-110 H : TESTED A T [facility] 6720 (SUNG) (test code = [facility], 1538) 32069: Heel Reducer/Techni marissa ID = [id number] for Lacy Yoder XR ABDOMEN/KUB 1 VIEW [id number] 17:30:26 [facility] : 1965 Sex: MTECHNIQUE: [...] Signed By: Glenn Felton02/19/2023 17:32 CDTWorkstation Name: [id number] 17:05:56 Test Item Value Reference Range Interpretation Comments POC-GLUCOSE METER 168 mg/dL 70-110 H : TESTED A T [facility] 6720 (BEAKER) (test code = [facility], 1538) 39909: Heel Reducer/Techni marissa ID = [id number] for Br others, Lacy SPUTUM CULTURE + GRAM [id number] 15:04:41 Test Item Value Reference Range Interpretation Comments CULTURE (BEAKER) (test code No growth = 1095) GRAM STAIN RESULT (BEAKER) <1+ WBCs (test code = 1123) GRAM STAIN RESULT (BEAKER) No organisms seen (test code = 54842) POCT-GLUCOSE [id number] 15:04:05 Test Item Value Reference Range Interpretation Comments POC-GLUCOSE METER 161 mg/dL 70-110 H : TESTED A T [facility] 6720 (BEAKER) (test code = [facility], 1538) 47785: Heel Reducer/Techni marissa ID = [id number] for Br others, Lacy POCT-GLUCOSE [id number] 13:48:47 Test Item Value Reference Range Interpretation Comments POC-GLUCOSE METER 171 mg/dL 70-110 H : TESTED A T [facility] 6720 (BEAKER) (test code = [facility], 1538) 30522: Heel Reducer/Techni marissa ID = [id number] for Br others, Lacy [id number] 13:13:01 Test Item Value Reference Range Interpretation Comments PHOSPHORUS (BEAKER) (test code = 5.9 mg/dL 2.3-4.7 H 604) Heel Reducer ID - [id number] 13:13:00 Test Item Value Reference Range Interpretation Comments MAGNESIUM (BEAKER) (test code = 2.5 mg/dL 1.6-2.6 627) Heel Reducer ID - EMBASIC METABOLIC [id number] 13:12:59 Test Item Value Reference Range Interpretation [...] not appl icable for dialysis patien ts Heel Reducer ID - EMPOCT-GLUCOSE [id number] 12:28:59 Test Item Value Reference Range Interpretation Comments POC-GLUCOSE METER 150 mg/dL 70-110 H : TESTED A T [facility] 6720 (BEAKER) (test code = [facility], 1538) 45534: Heel Reducer/Techni marissa ID = [id number] for Br others, Lacy POCT-GLUCOSE [id number] 12:05:27 Test Item Value Reference Range Interpretation Comments POC-GLUCOSE METER 65 mg/dL 70-110 L : TESTED A T [facility] 6720 (BEAKER) (test code = [facility], 1538) 75505: Heel Reducer/Techni marissa ID = [id number] for Brot hers, Lacy POCT-GLUCOSE [id number] 11:45:22 Test Item Value Reference Range Interpretation Comments POC-GLUCOSE METER 71 mg/dL 70-110 : TESTED A T [facility] 6720 (BEAKER) (test code = [facility], 1538) 08725: Heel Reducer/Techni marissa ID = [id number] for Brot hers, Lacy XR ABDOMEN/KUB 1 VIEW [id number] 11:26:21 [facility] : 1965 Sex: MXR ABDOMEN/KUB [...] Signed By: Mavis Vinson02/19/2023 11:28 CDTWorkstation Name: [id number]- GLUCOSE [id number] 09:43:37 Test Item Value Reference Range Interpretation Comments POC-GLUCOSE METER 109 mg/dL 70-110 : TESTED A T [facility] 6720 (DelectableAKER) (test code = [facility], 1538) 45038: Heel Reducer/Techni marissa ID = [id number] for Br others, Lacy POCT-GLUCOSE [id number] 08:48:03 Test Item Value Reference Range Interpretation Comments POC-GLUCOSE METER 119 mg/dL 70-110 H : TESTED A T [facility] 6720 (BEAKER) (test code = [facility], 1538) 02374: Heel Reducer/Techni marissa ID = [id number] for Br others, Lacy POCT-GLUCOSE [id number] 07:45:28 Test Item Value Reference Range Interpretation Comments POC-GLUCOSE METER 149 mg/dL 70-110 H : TESTED A T [facility] 6720 (BEAKER) (test code = [facility], 1538) 68386: Heel Reducer/Techni marissa ID = [id number] for Mo sesFernandon POCT-GLUCOSE [id number] 07:23:04 Test Item Value Reference Range Interpretation Comments POC-GLUCOSE METER 160 mg/dL 70-110 H : TESTED A T [facility] 6720 (BEAKER) (test code [facility], = 1538) 02185: Heel Reducer/Techni marissa ID = [id number] for Alfredo Virk XR CHEST 1 VIEW PORTABLE / [id number] 06:56:40 [facility] : 1965 Sex: MXR [...] Signed By: Mavis Vinson02/19/2023 06:58 CDTWorkstation Name: [id number] METER 2023-02-19 06:19:41 Test Item Value Reference Range Interpretation Comments POC-GLUCOSE METER 213 mg/dL 70-110 H : TESTED A T [facility] 6720 ([employer] (test code [facility], = 1538) 49766: Heel Reducer/Techni marissa ID = [id number] for Alfredo Virk POCT-GLUCOSE [id number] 05:29:11 Test Item Value Reference Range Interpretation Comments POC-GLUCOSE METER 219 mg/dL 70-110 H : TESTED A T [facility] 6720 (BEAKER) (test code [facility], = 1538) 39300: Heel Reducer/Techni marissa ID = [id number] for Alfredo Virk POCT-GLUCOSE [id number] 04:21:23 Test Item Value Reference Range Interpretation Comments POC-GLUCOSE METER 203 mg/dL 70-110 H : TESTED A T [facility] 6720 (BEAKER) (test code [facility], = 1538) [id number]: Heel Reducer/Techni marissa ID = [id number] for Donnie isAlfredo [id number] 03:06:57 Test Item Value Reference Range Interpretation Comments PHOSPHORUS (BEAKER) (test code = 4.4 mg/dL 2.3-4.7 604) Heel Reducer ID - [id number] 03:06:56 Test Item Value Reference Range Interpretation Comments MAGNESIUM (BEAKER) (test code = 2.4 mg/dL 1.6-2.6 627) Heel Reducer ID - EMBASIC METABOLIC [id number] 03:06:55 Test Item Value Reference Range Interpretation [...] not appl icable for dialysis patien ts Heel Reducer ID - EMPOCT-GLUCOSE [id number] 02:56:57 Test Item Value Reference Range Interpretation Comments POC-GLUCOSE METER 136 mg/dL 70-110 H : TESTED A T [facility] 6720 (BEAKER) ([facility] 1538[facility] [id number]: Heel Reducer/Techni marissa ID = [id number] for [place] is, Liliaella CBC W/PLT COUNT & AUTO [id number] 02:46:17 Test Item Value Reference Range Interpretation [...] PERCENT (BEAKER) (test code = 2801) POCT-GLUCOSE [id number] 02:28:20 Test Item Value Reference Range Interpretation Comments POC-GLUCOSE METER 89 mg/dL 70-110 : TESTED A T [facility] 6720 (BEAKER) (test code [facility], = 1538) [id number]: Heel Reducer/Techni marissa ID = [id number] for Torm is, Mariechella POCT-GLUCOSE [id number] 02:26:10 Test Item Value Reference Range Interpretation Comments POC-GLUCOSE METER 98 mg/dL 70-110 : TESTED A T [facility] 6720 (BEAKER) (test code [facility] [facility], = 1538) 47534: Heel Reducer/Techni marissa ID = [id number] for Torm is, Mariechella POCT-GLUCOSE [id number] 01:11:10 Test Item Value Reference Range Interpretation Comments POC-GLUCOSE METER 118 mg/dL 70-110 H : TESTED A T [facility] 6720 (BEAKER) (test code [facility], = 1538) 51951: Heel Reducer/Techni marissa ID = [id number] for Torm is, Mariechella POCT-GLUCOSE [id number] 00:32:28 Test Item Value Reference Range Interpretation Comments POC-GLUCOSE METER 117 mg/dL 70-110 H : TESTED A T [facility] 6720 (BEAKER) (test code [facility], = 1538) 58691: Heel Reducer/Techni marissa ID = [id number] for Torm is, Mariechella POCT-GLUCOSE [id number] 23:47:12 Test Item Value Reference Range Interpretation Comments POC-GLUCOSE METER 153 mg/dL 70-110 H : TESTED A T [facility] 6720 (BEAKER) (test code [facility], = 1538) 11243: Heel Reducer/Techni marissa ID = [id number] for Torm is, Liliaella POCT-GLUCOSE [id number] 22:55:57 Test Item Value Reference Range Interpretation Comments POC-GLUCOSE METER 173 mg/dL 70-110 H : TESTED A T [facility] 6720 (BEAKER) (test code [facility], = 1538) 28816: Heel Reducer/Techni marissa ID = [id number] for Torm is, Mariechella [id number] 21:41:58 Test Item Value Reference Range Interpretation Comments PHOSPHORUS (BEAKER) (test code = 4.2 mg/dL 2.3-4.7 604) Heel Reducer ID - EMBASIC METABOLIC [id number] 21:41:57 Test Item Value Reference Range Interpretation [...] 358) GLUCOSE RANDOM 157 mg/dL 70-105 H (BEAKER) (test code = [...] not appl icable for dialysis patien ts Heel Reducer ID - [id number] 21:41:57 Test Item Value Reference Range Interpretation Comments MAGNESIUM (BEAKER) (test code = 2.4 mg/dL 1.6-2.6 627) Heel Reducer ID - EMPOCT-GLUCOSE [id number] 21:35:38 Test Item Value Reference Range Interpretation Comments POC-GLUCOSE METER 189 mg/dL 70-110 H : TESTED A T [facility] 6720 (BEAKER) (test code [facility], = 1538) 08280: Heel Reducer/Techni marissa ID = [id number] for Torm is, Mariechella POCT-GLUCOSE [id number] 20:23:00 Test Item Value Reference Range Interpretation Comments POC-GLUCOSE METER 154 mg/dL 70-110 H : TESTED A T [facility] 6720 (BEAKER) (test code [facility], = 1538) 09627: Heel Reducer/Techni marissa ID = [id number] for Torm is, Mariechella POCT-GLUCOSE [id number] 18:57:58 Test Item Value Reference Range Interpretation Comments POC-GLUCOSE METER 165 mg/dL 70-110 H : TESTED A T [facility] 6720 (BEAKER) (test code = [facility], 1538) 19963: Heel Reducer/Techni marissa ID = [id number] for Br others, Lacy POCT-GLUCOSE [id number] 17:26:01 Test Item Value Reference Range Interpretation Comments POC-GLUCOSE METER 170 mg/dL 70-110 H : TESTED A T [facility] 6720 (BEAKER) (test code = [facility], 1538) 15987: Heel Reducer/Techni marissa ID = [id number] for Br others, Lacy CT CHEST WITH IV [id number] 16:34:27 [facility] : 1965 Sex: MCT ofthe chest, abdomen and pelvis, with contrastClinical History: SepsisTechnique: CT of the chest, abdomen and pelvis is performed withintravenous contrast administration. This exam was performed accordingto our departmental dose optimization program which includes automatedexposure control, adjustment of the mA and/or kV according to patient'ssize and/or use of iterative reconstructive technique.Comparison Film: January 22iscussion:ET is above the carlos. Feeding tube terminates in the duodenal bulb.There is increased number of small mediastinal lymph nodes, which couldbe reactive. No supraclavicular, or axillary lymphadenopathy. Heart isnormal in size, no pericardial effusion. There is advanced calcificationof the coronary arteries.There is atelectasis/consolidation in both lower lobes, and to a lesserextent the posterior upper lobes. No significant pleural effusion.Central airways are paten t, no bronchiectasis or bronchial wallthickening.No liver lesion is identified. No biliary ductal dilatation. There is asmall amount of layering sludge and/or stones within the gallbladder.The spleen, and adrenal glands are normal. Pancreas is atrophied. Noperipancreatic edema or fluid.There is diffuse distention of small and large bowel, which arefluid-filled. No significant bowel wall thickening isidentified. Notransition point. No pericolonic, or mesenteric edema.In the pelvis, bladder is decompressed with Chung catheter. Prostate andseminal vesicles are unremarkable.No ascites, free air, or lym phadenopathy.There is mild anasarca. Bony structures demonstrate degenerativechanges.IMPRESSION:Impression:Patchy atelectasis/consolidation in the posterior lungs bilaterally. Mildly distended state and fluid-filled bowel, probably reflectinglow-grade ileus, and correlate clinically for enterocolitis.S mall stones and/or sludge in gallbladder.Mild anasarca.Electronically Signed By: Merlene Santillan02/18/2023 16:36 CDTWorkstation Name: [id number] ABDOMEN/PELVIS WITH IV [id number] 16:34:27 [facility] : 1965 Sex: MCT ofthe chest, abdomen and pelvis, with contrastClinical History: SepsisTechnique: CT of the chest, abdomen and pelvis is performed withintravenous contrast administration. This exam was performed accordingto our departmental dose optimization program which includes automatedexposure control, adjustment of the mA and/or kV according to patient'ssize and/or use of iterative reconstructive technique.Comparison Film: January 223Discussion:ET is above the carlos. Feeding tube terminates in the duodenal bulb.There is increased number of small mediastinal lymph nodes, which couldbe reactive. No supraclavicular, or axillary lymphadenopathy. Heart isnormal in size, no pericardial effusion. There is advanced calcificationof the coronary arteries.There is atelectasis/consolidation in both lower lobes, and to a lesserextent the posterior upper lobes. No significant pleural effusion.Central airways are paten t, no bronchiectasis or bronchial wallthickening.No liver lesion is identified. No biliary ductal dilatation. There is asmall amount of layering sludge and/or stones within the gallbladder.The spleen, and adrenal glands are normal. Pancreas is atrophied. Noperipancreatic edema or fluid.There is diffuse distention of small and large bowel, which arefluid-filled. No significant bowel wall thickening isidentified. Notransition point. No pericolonic, or mesenteric edema.In the pelvis, bladder is decompressed with Chung catheter. Prostate andseminal vesicles are unremarkable.No ascites, free air, or lym phadenopathy.There is mild anasarca. Bony structures demonstrate degenerativechanges.IMPRESSION:Impression:Patchy atelectasis/consolidation in the posterior lungs bilaterally. Mildly distended state and fluid-filled bowel, probably reflectinglow-grade ileus, and correlate clinically for enterocolitis.S mall stones and/or sludge in gallbladder.Mild anasarca.Electronically Signed By: Merlene Santillan02/18/2023 16:36 CDTWorkstation Name: [id number] 16:11:33 Test Item Value Reference Range Interpretation Comments POC-GLUCOSE METER 131 mg/dL 70-110 H : TESTED A T [facility] 6720 (BEAKER) (test code = [facility], 1538) 55966: Heel Reducer/Techni marissa ID = [id number] for Lupillo hi ([facility])Riya POCT-GLUCOSE [id number] 15:26:31 Test Item Value Reference Range Interpretation Comments POC-GLUCOSE METER 92 mg/dL 70-110 : TESTED A T [facility] 6720 (BEAKER) (test code = [facility], 1538) 54125: Heel Reducer/Techni marissa ID = [id number] for Brot hers, Lacy [id number] 15:16:09 Test Item Value Reference Range Interpretation Comments PREALBUMIN (BEAKER) (test code = 11 mg/dL 14-45 L 586) Heel Reducer ID - ADMINPOCT-GLUCOSE [id number] 13:23:55 Test Item Value Reference Range Interpretation Comments POC-GLUCOSE METER 118 mg/dL 70-110 H : TESTED A T [facility] 6720 (BEAKER) (test code = [facility], 1538) 46781: Heel Reducer/Techni marissa ID = [id number] for Br others, Lacy POCT-GLUCOSE [id number] 12:51:54 Test Item Value Reference Range Interpretation Comments POC-GLUCOSE METER 125 mg/dL 70-110 H : TESTED A T [facility] 6720 (BEAKER) (test code = [facility], 1538) 23967: Heel Reducer/Techni marissa ID = [id number] for Br others, Lacy URINALYSIS W/ REFLEX URINE [id number] 12:21:36 Test Item Value Reference Range Interpretation [...] = 1585) Many SOURCE(BEAKER) (test code = 1555) Heel Reducer ID - [auto]Heel Reducer ID - techC-REACTIVE [id number] 11:40:42 Test Item Value Reference Range Interpretation Comments C-REACTIVE PROTEIN (BEAKER) (test 9.22 mg/dL 0.00-0.50 H code = 676) Heel Reducer ID - EMHEPATIC FUNCTION [id number] 11:40:41 Test Item Value Reference Range Interpretation [...] (test code = 39 U/L 6-55 347) Heel Reducer ID - [id number] 11:40:41 Test Item Value Reference Range Interpretation Comments ALBUMIN (BEAKER) (test code = 1145) 2.5 g/dL 3.5-5.0 L [id number] 11:40:40 Test Item Value Reference Range Interpretation Comments PHOSPHORUS (BEAKER) (test code = 4.8 mg/dL 2.3-4.7 H 604) Heel Reducer ID - [id number] 11:40:39 Test Item Value Reference Range Interpretation Comments MAGNESIUM (BEAKER) (test code = 2.3 mg/dL 1.6-2.6 627) Heel Reducer ID - EMBASIC METABOLIC [id number] 11:40:38 Test Item Value Reference Range Interpretation [...] not appl icable for dialysis patien ts Heel Reducer ID - EMPOCT-GLUCOSE [id number] 11:16:02 Test Item Value Reference Range Interpretation Comments POC-GLUCOSE METER 137 mg/dL 70-110 H : TESTED A T [facility] 6720 (BEAKER) (test code = [facility], 1538) 20966: Heel Reducer/Techni marissa ID = [id number] for Br others, Lacy POCT-GLUCOSE [id number] 10:22:06 Test Item Value Reference Range Interpretation Comments POC-GLUCOSE METER 154 mg/dL 70-110 H : TESTED A T [facility] 6720 (BEAKER) (test code = [facility], 1538) 33372: Heel Reducer/Techni marissa ID = [id number] for Br others, Lacy POCT-GLUCOSE [id number] 08:59:05 Test Item Value Reference Range Interpretation Comments POC-GLUCOSE METER 160 mg/dL 70-110 H : TESTED A T [facility] 6720 (BEAKER) (test code = [facility], 1538) 67992: Heel Reducer/Techni marissa ID = [id number] for Br others, Lacy POCT-GLUCOSE [id number] 07:42:33 Test Item Value Reference Range Interpretation Comments POC-GLUCOSE METER 177 mg/dL 70-110 H : TESTED A T [facility] 6720 (BEAKER) (test code = [facility], 1538) 99962: Heel Reducer/Techni marissa ID = [id number] for Br others, Lacy XR CHEST 1 VIEW PORTABLE / [id number] 07:35:22 [facility]DU : 1965 Sex: MXR [...] Signed By: Mavis Vinson02/18/2023 07:37 CDTWorkstation Name: [id number] METER 2023-02-18 06:36:44 Test Item Value Reference Range Interpretation Comments POC-GLUCOSE METER 183 mg/dL 70-110 H : TESTED A T [facility] 6720 (BEAKER) (test code [facility], = 1538) 44797: Heel Reducer/Techni marissa ID = [id number] for Torm is, Mariechella POCT-GLUCOSE [id number] 05:46:01 Test Item Value Reference Range Interpretation Comments POC-GLUCOSE METER 181 mg/dL 70-110 H : TESTED A T [facility] 6720 (BEAKER) (test code [facility], = 1538) 60618: Heel Reducer/Techni marissa ID = [id number] for Torm is, Mariechella POCT-GLUCOSE [id number] 04:57:41 Test Item Value Reference Range Interpretation Comments POC-GLUCOSE METER 208 mg/dL 70-110 H : TESTED A T [facility] 6720 (BEAKER) (test code [facility], = 1538) 22676: Heel Reducer/Techni marissa ID = [id number] for Torm is, Mariechella POCT-GLUCOSE [id number] 03:47:13 Test Item Value Reference Range Interpretation Comments POC-GLUCOSE METER 235 mg/dL 70-110 H : TESTED A T [facility] 6720 (BEAKER) (test code [facility], = 1538) 60016: Heel Reducer/Techni marissa ID = [id number] for Torm is, Mariechella POCT-GLUCOSE [id number] 02:50:48 Test Item Value Reference Range Interpretation Comments POC-GLUCOSE METER 241 mg/dL 70-110 H : TESTED A T [facility] 6720 (BEAKER) (test code [facility] [place], = 1538) 31259: Heel Reducer/Techni marissa ID = [id number] for Alfredo Virk BASIC METABOLIC [id number] 02:27:12 Test Item Value Reference Range Interpretation [...] not appl icable for dialysis patien ts Heel Reducer ID - [id number] 02:27:11 Test Item Value Reference Range Interpretation Comments PHOSPHORUS (BEAKER) 4.3 mg/dL 2.3-4.7 Specimen slightly (test code = 604) hemolyzed Heel Reducer ID - [id number] 02:27:10 Test Item Value Reference Range Interpretation Comments MAGNESIUM (BEAKER) 2.2 mg/dL 1.6-2.6 Specimen slightly (test code = 627) hemolyzed Heel Reducer ID - ADMINCBC W/PLT COUNT & AUTO [id number] 02:14:52 Test Item Value Reference Range Interpretation [...] PERCENT (BEAKER) (test code = 2801) POCT-GLUCOSE [id number] 01:52:31 Test Item Value Reference Range Interpretation Comments POC-GLUCOSE METER 267 mg/dL 70-110 H : TESTED A T [facility] 6720 (BEAKER) (test code [facility], = 1538) 48034: Heel Reducer/Techni marissa ID = [id number] for Torm is, Mariechella POCT-GLUCOSE [id number] 00:55:58 Test Item Value Reference Range Interpretation Comments POC-GLUCOSE METER 251 mg/dL 70-110 H : TESTED A T [facility] 6720 (BEAKER) (test code [facility], = 1538) 03690: Heel Reducer/Techni marissa ID = [id number] for Torm is, Mariechella POCT-GLUCOSE [id number] 23:53:50 Test Item Value Reference Range Interpretation Comments POC-GLUCOSE METER 308 mg/dL 70-110 H : TESTED A T [facility] 6720 (BEAKER) (test code [facility], = 1538) 37273: Heel Reducer/Techni marissa ID = [id number] for Torm is, Mariechella POCT-GLUCOSE [id number] 22:59:54 Test Item Value Reference Range Interpretation Comments POC-GLUCOSE METER 325 mg/dL 70-110 H : TESTED A T [facility] 6720 (BEAKER) (test code [facility], = 1538) 32495: Heel Reducer/Techni marissa ID = [id number] for Torm is, Mariechella [id number] 22:19:19 Test Item Value Reference Range Interpretation Comments PHOSPHORUS (BEAKER) (test code = 4.6 mg/dL 2.3-4.7 604) Heel Reducer ID - ADMINBASIC METABOLIC [id number] 22:19:18 Test Item Value Reference Range Interpretation [...] not appl icable for dialysis patien ts Heel Reducer ID - [id number] 22:19:18 Test Item Value Reference Range Interpretation Comments MAGNESIUM (BEAKER) (test code = 2.0 mg/dL 1.6-2.6 627) Heel Reducer ID - ADMINPOCT-GLUCOSE [id number] 21:54:18 Test Item Value Reference Range Interpretation Comments POC-GLUCOSE METER 277 mg/dL 70-110 H : TESTED A T [facility] 6720 (BEAKER) (test code [facility], = 1538) 38567: Heel Reducer/Techni marissa ID = [id number] for Torm is, Mariechella POCT-GLUCOSE [id number] 20:51:40 Test Item Value Reference Range Interpretation Comments POC-GLUCOSE METER 277 mg/dL 70-110 H : TESTED A T [facility] 6720 (BEAKER) (test code [facility], = 1538) 89553: Heel Reducer/Techni marissa ID = [id number] for Torm is, Mariechella POCT-GLUCOSE [id number] 19:45:27 Test Item Value Reference Range Interpretation Comments POC-GLUCOSE METER 284 mg/dL 70-110 H : TESTED A T [facility] 6720 (BEAKER) (test code [facility], = 1538) 86741: Heel Reducer/Techni marissa ID = [id number] for Alfredo Virk POCT-GLUCOSE [id number] 18:44:23 Test Item Value Reference Range Interpretation Comments POC-GLUCOSE METER 345 mg/dL 70-110 H : TESTED A T [facility] 6720 (BEAKER) (test code [facility], = 1538) 98357: Heel Reducer/Techni marissa ID = [id number] for Stanley onkenny, Madeline POCT-GLUCOSE [id number] 17:13:02 Test Item Value Reference Range Interpretation Comments POC-GLUCOSE METER 351 mg/dL 70-110 H : TESTED A T [facility] 6720 (BEAKER) (test code [facility], = 1538) 71837: Heel Reducer/Techni marissa ID = [id number] for Gasg onia, Madeline URINALYSIS W/ [id number] 16:33:55 Test Item Value Reference Range Interpretation [...] 514) YEAST (BEAKER) (test code = Many 9727) SOURCE(BEAKER) (test code = Urine, Chung 2817) Heel Reducer ID - [auto]Heel Reducer ID - techPOCT-GLUCOSE [id number] 16:31:48 Test Item Value Reference Range Interpretation Comments POC-GLUCOSE METER 352 mg/dL 70-110 H : TESTED A T [facility] 6720 (BEAKER) (test code [facility], = 1538) 01333: Heel Reducer/Techni marissa ID = [id number] for Madeline Mehta [id number] 16:11:25 Test Item Value Reference Range Interpretation Comments PHOSPHORUS (BEAKER) (test code = 4.2 mg/dL 2.3-4.7 604) Heel Reducer ID - [id number] 16:11:24 Test Item Value Reference Range Interpretation Comments MAGNESIUM (BEAKER) (test code = 2.0 mg/dL 1.6-2.6 627) Heel Reducer ID - EMBASIC METABOLIC [id number] 16:11:23 Test Item Value Reference Range Interpretation [...] not appl icable for dialysis patien ts Heel Reducer ID - EMPOCT-GLUCOSE [id number] 15:08:20 Test Item Value Reference Range Interpretation Comments POC-GLUCOSE METER 348 mg/dL 70-110 H : TESTED A T [facility] 6720 (BEAKER) (test code [facility], = 1538) 06799: Heel Reducer/Techni marissa ID = [id number] for Gasg onia, Madeline POCT-GLUCOSE [id number] 13:56:11 Test Item Value Reference Range Interpretation Comments POC-GLUCOSE METER 398 mg/dL 70-110 H : TESTED A T [facility] 6720 ([employer] (test code [facility], = 1538) 29308: Heel Reducer/Techni marissa ID = [id number] for Gasg onia, Madeline POCT-GLUCOSE [id number] 13:14:15 Test Item Value Reference Range Interpretation Comments POC-GLUCOSE METER 390 mg/dL 70-110 H : TESTED A T [facility] 6720 ([employer] (test code = [facility] Debby [facility], 1538) 87422: Heel Reducer/Techni marissa ID = [id number] for Sis Perez XR CHEST 1 VIEW PORTABLE / [id number] 10:40:36 [facility] : 1965 Sex: MXR CHEST [...] Signed By: Mavis Vinson02/17/2023 10:42 CDTWorkstation Name: [id number] 08:26:44 Test Item Value Reference Range Interpretation Comments POC-GLUCOSE METER 239 mg/dL 70-110 H : TESTED A T [facility] 6720 [facility] (test code = [facility] [place], 1538) 99210: Heel Reducer/Techni marissa ID = [id number] for Sis Perez XR CHEST 1 VIEW PORTABLE / [id number] 08:15:37 [facility] : 1965 Sex: MXR CHEST [...] Signed By: Mavis Vinson02/17/2023 08:17 CDTWorkstation Name: [id number] 07:30:25 Test Item Value Reference Range Interpretation Comments POC-GLUCOSE METER 197 mg/dL 70-110 H : TESTED A T [facility] 6720 (BEAKER) (test code = [facility], 1538) 86856: Heel Reducer/Techni marissa ID = [id number] for Bradford segal (contract), Aut her POCT-GLUCOSE [id number] 06:16:53 Test Item Value Reference Range Interpretation Comments POC-GLUCOSE METER 190 mg/dL 70-110 H : TESTED A T [facility] 6720 (BEAKER) (test code = [facility], 1538) 76013: Heel Reducer/Techni marissa ID = [id number] for Bradford segal (contract), Aut her POCT-GLUCOSE [id number] 05:18:31 Test Item Value Reference Range Interpretation Comments POC-GLUCOSE METER 172 mg/dL 70-110 H : TESTED A T [facility] 6720 (BEAKER) (test code = [facility], 1538) 30894: Heel Reducer/Techni marissa ID = [id number] for Da luzma (contract), Aut her [id number] 04:34:44 Test Item Value Reference Range Interpretation Comments PHOSPHORUS (BEAKER) (test code = 3.7 mg/dL 2.3-4.7 604) Heel Reducer ID - EMBASIC METABOLIC [id number] 04:34:43 Test Item Value Reference Range Interpretation [...] not appl icable for dialysis patien ts Heel Reducer ID - [id number] 04:34:43 Test Item Value Reference Range Interpretation Comments MAGNESIUM (SUNG) (test code = 1.9 mg/dL 1.6-2.6 627) Heel Reducer ID - EMPOCT-GLUCOSE [id number] 04:15:44 Test Item Value Reference Range Interpretation Comments POC-GLUCOSE METER 239 mg/dL 70-110 H : TESTED A T [facility] 6720 ([employer]) (test code = [facility] Guardado [facility], 1538) 91671: Heel Reducer/Techni marissa ID = [id number] for Bradford segal (contract), Aut her [id number] 04:13:54 Test Item Value Reference Range Interpretation Comments PROTIME ([employer]) (test 15.5 seconds 11.9-14.2 H code = 759) INR ([employer]) (test 1.26 See_Comment [Automat ed code = 370) message] The [employer] stem which generated this result transmitted reference range : <=5.90. The reference range was not used to interpret this result as normal/abnormal . PARTIAL THROMBOPLASTIN 29.2 seconds 22.5-36.0 TIME ([employer]) (test code = 760) RECOMMENDED COUMADIN/WARFARIN INR THERAPY RANGESSTANDARD DOSE: 2.0 - 3.0 Includes: PROPHYLAXIS for venous thrombosis, systemic embolization; TREATMENT for venous thrombosis and/or pulmonary embolus.HIGH RISK: Target INR is 2.5-3.5 for patients with mechanical heart valves.CBC W/PLT COUNT & AUTO [id number] 04:02:12 Test Item Value Reference Range Interpretation [...] PERCENT (BEAKER) (test code = 2801) KETONE, [id number] 03:44:06 Test Item Value Reference Range Interpretation Comments KETONES, BLOOD (BEAKER) (test code 0.1 mmol/L <0.4 = 1103) POCT-GLUCOSE [id number] 03:39:33 Test Item Value Reference Range Interpretation Comments POC-GLUCOSE METER 227 mg/dL 70-110 H : TESTED A T [facility] 6720 (BEAKER) (test code = [facility], 1538) 46430: Heel Reducer/Techni marissa ID = [id number] for Da luzma (contract), Aut her POCT-GLUCOSE [id number] 02:17:34 Test Item Value Reference Range Interpretation Comments POC-GLUCOSE METER 141 mg/dL 70-110 H : TESTED A T [facility] 6720 (BEAKER) (test code = [facility], 1538) 00809: Heel Reducer/Techni marissa ID = [id number] for Da luzma (contract), Aut her POCT-GLUCOSE [id number] 01:32:52 Test Item Value Reference Range Interpretation Comments POC-GLUCOSE METER 134 mg/dL 70-110 H : TESTED A T [facility] 6720 (BEAKER) (test code = [facility], 1538) 46888: Heel Reducer/Techni marissa ID = [id number] for Da luzma (contract), Aut her POCT-GLUCOSE [id number] 00:10:41 Test Item Value Reference Range Interpretation Comments POC-GLUCOSE METER 166 mg/dL 70-110 H : TESTED A T [facility] 6720 (BEAKER) (test code = [facility], 1538) 90093: Heel Reducer/Techni marissa ID = [id number] for Da luzma (contract), Aut her POCT-GLUCOSE [id number] 00:09:06 Test Item Value Reference Range Interpretation Comments POC-GLUCOSE METER 174 mg/dL 70-110 H : TESTED A T [facility] 6720 (BEAKER) (test code = [facility], 1538) 56291: Heel Reducer/Techni marissa ID = [id number] for Da luzma (contract), Aut her POCT-GLUCOSE [id number] 22:15:05 Test Item Value Reference Range Interpretation Comments POC-GLUCOSE METER 203 mg/dL 70-110 H : TESTED A T [facility] 6720 (BEAKER) (test code = [facility], 1538) 15100: Heel Reducer/Techni marissa ID = [id number] for Bradford segal (contract), Aut her POCT-GLUCOSE [id number] 22:13:50 Test Item Value Reference Range Interpretation Comments POC-GLUCOSE METER 188 mg/dL 70-110 H : TESTED A T [facility] 6720 (BEAKER) (test code = [facility], 1538) 48542: Heel Reducer/Techni marissa ID = [id number] for Da luzma (contract), Aut her POCT-GLUCOSE [id number] 20:09:28 Test Item Value Reference Range Interpretation Comments POC-GLUCOSE METER 205 mg/dL 70-110 H : TESTED A T [facility] 67[facility] (BEAKER) (test code = [facility], 1538) [id number]: Heel Reducer/Techni marissa ID = [id number] for Da luzma (contract), Aut her POCT-GLUCOSE [id number] 18:55:03 Test Item Value Reference Range Interpretation Comments POC-GLUCOSE METER 230 mg/dL 70-110 H : TESTED A T [facility] 6720 (BEAKER) (test code = [facility], 1538) [id number]: Heel Reducer/Techni marissa ID = [id number] for VANI HOUGH FRANCISCO POCT-GLUCOSE [id number] 18:54:35 Test Item Value Reference Range Interpretation Comments POC-GLUCOSE METER 232 mg/dL 70-110 H : TESTED A T [facility] 6720 (BEAKER) (test code = [facility], 1538) 07561: Heel Reducer/Techni marissa ID = [id number] for Inman nesara ([facility]), Nimoz POCT-GLUCOSE [id number] 17:16:20 Test Item Value Reference Range Interpretation Comments POC-GLUCOSE METER 237 mg/dL 70-110 H : TESTED A T [facility] 6720 (BEAKER) (test code = [facility], 1538) 79532: Heel Reducer/Techni marissa ID = [id number] for Inman nesara ([facility]), Nimoz POCT-GLUCOSE [id number] 16:14:06 Test Item Value Reference Range Interpretation Comments POC-GLUCOSE METER 232 mg/dL 70-110 H : TESTED A T [facility] 6720 (BEAKER) (test code = [facility] [place], 1538) 33351: Heel Reducer/Techni marissa ID = [id number] for FRANCISCO MANN [id number] 16:05:16 Test Item Value Reference Range Interpretation Comments MAGNESIUM (BEAKER) (test code = 2.0 mg/dL 1.6-2.6 627) Heel Reducer ID - [id number] 16:05:16 Test Item Value Reference Range Interpretation Comments PHOSPHORUS (BEAKER) (test code = 4.0 mg/dL 2.3-4.7 604) Heel Reducer ID - ADMINBASIC METABOLIC [id number] 16:05:15 Test Item Value Reference Range Interpretation [...] (test code = 697) EGFR (BEAKER) 80 Interpretati on of eGFR (test code = [...] not appl icable for dialysis patien ts Heel Reducer ID - ADMINPOCT-GLUCOSE [id number] 15:43:52 Test Item Value Reference Range Interpretation Comments POC-GLUCOSE METER 252 mg/dL 70-110 H : TESTED A T [facility] 6720 (BEAKER) (test code = [facility], 1538) 03746: Heel Reducer/Techni marissa ID = [id number] for Inman nesara ([facility]), Nimoz POCT-GLUCOSE [id number] 14:17:33 Test Item Value Reference Range Interpretation Comments POC-GLUCOSE METER 256 mg/dL 70-110 H : TESTED A T [facility] 6720 (BEAKER) (test code = [facility], 1538) 96583: Heel Reducer/Techni marissa ID = [id number] for VANI HOUGH FRANCISCO POCT-GLUCOSE [id number] 13:22:19 Test Item Value Reference Range Interpretation Comments POC-GLUCOSE METER 236 mg/dL 70-110 H : TESTED A T [facility] 6720 (BEAKER) (test code = [facility], 1538) 19248: Heel Reducer/Techni marissa ID = [id number] for Inman nesara ([facility]), Nimoz POCT-GLUCOSE [id number] 12:35:14 Test Item Value Reference Range Interpretation Comments POC-GLUCOSE METER 218 mg/dL 70-110 H : TESTED A T [facility] 6720 (BEAKER) (test code = [facility], 1538) 38084: Heel Reducer/Techni marissa ID = [id number] for Inman nesara ([facility]), Nimoz POCT-GLUCOSE [id number] 11:28:12 Test Item Value Reference Range Interpretation Comments POC-GLUCOSE METER 229 mg/dL 70-110 H : TESTED A T [facility] 6720 (BEAKER) (test code = [facility], 1538) 62160: Heel Reducer/Techni marissa ID = [id number] for Inman nesara ([facility]), Nimoz POCT-GLUCOSE [id number] 10:14:28 Test Item Value Reference Range Interpretation Comments POC-GLUCOSE METER 146 mg/dL 70-110 H : TESTED A T [facility] 6720 (BEAKER) (test code = [facility], 1538) 96789: Heel Reducer/Techni marissa ID = [id number] for VANI RIN, FRANCISCO XR CHEST 1 VIEW PORTABLE / [id number] 09:36:27 [facility] : 1965 Sex: MXR [...] Signed By: Mavis Vinson02/16/2023 09:38 CDTWorkstation Name: [id number] 09:00:07 Test Item Value Reference Range Interpretation Comments POC-GLUCOSE METER 173 mg/dL 70-110 H : TESTED A T [facility] 6720 (FoodBuzz) (test code = [facility], 1538) 80286: Heel Reducer/Techni marissa ID = [id number] for Inman ruslan ([facility]), Nimoz POCT-GLUCOSE [id number] 08:09:04 Test Item Value Reference Range Interpretation Comments POC-GLUCOSE METER 160 mg/dL 70-110 H : TESTED A T [facility] 6720 (FoodBuzz) (test code = [facility], 1538) 66262: Heel Reducer/Techni marissa ID = [id number] for VANI HOUGH, FRANCISCO POCT-GLUCOSE [id number] 07:28:08 Test Item Value Reference Range Interpretation Comments POC-GLUCOSE METER 153 mg/dL 70-110 H : TESTED A T [facility] 6720 (BEAKER) (test code = [facility], 1538) 49571: Heel Reducer/Techni marissa ID = [id number] for Bradford segal (contract), Aut her POCT-GLUCOSE [id number] 06:17:04 Test Item Value Reference Range Interpretation Comments POC-GLUCOSE METER 177 mg/dL 70-110 H : TESTED A T [facility] 6720 (BEAKER) (test code = [facility], 1538) 41623: Heel Reducer/Techni marissa ID = [id number] for Da luzma (contract), Aut her POCT-GLUCOSE [id number] 06:14:24 Test Item Value Reference Range Interpretation Comments POC-GLUCOSE METER 167 mg/dL 70-110 H : TESTED A T [facility] 6720 (BEAKER) (test code = [facility], 1538) 78757: Heel Reducer/Techni marissa ID = [id number] for Da luzma (contract), Aut her POCT-GLUCOSE [id number] 03:56:36 Test Item Value Reference Range Interpretation Comments POC-GLUCOSE METER 203 mg/dL 70-110 H : TESTED A T [facility] 6720 (BEAKER) (test code = [facility], 1538) 62706: Heel Reducer/Techni marissa ID = [id number] for Da luzma (contract), Aut her [id number] 03:27:24 Test Item Value Reference Range Interpretation Comments MAGNESIUM (BEAKER) (test code = 2.1 mg/dL 1.6-2.6 627) Heel Reducer ID - [id number] 03:27:24 Test Item Value Reference Range Interpretation Comments PHOSPHORUS (BEAKER) (test code = 4.1 mg/dL 2.3-4.7 604) Heel Reducer ID - ADMINCOMPREHENSIVE METABOLIC [id number] 03:27:23 Test Item Value Reference Range Interpretation [...] not appl icable for dialysis patien ts Heel Reducer ID - ADMINCBC W/PLT COUNT & AUTO [id number] 03:06:00 Test Item Value Reference Range Interpretation [...] PERCENT (BEAKER) (test code = 2801) POCT-GLUCOSE [id number] 02:55:50 Test Item Value Reference Range Interpretation Comments POC-GLUCOSE METER 227 mg/dL 70-110 H : TESTED A T [facility] 6720 (BEAKER) (test code = [facility], 1538) 74058: Heel Reducer/Techni marissa ID = [id number] for Da luzma (contract), Aut her POCT-GLUCOSE [id number] 01:46:48 Test Item Value Reference Range Interpretation Comments POC-GLUCOSE METER 213 mg/dL 70-110 H : TESTED A T [facility] 6720 (BEAKER) (test code = [facility], 1538) 19479: Heel Reducer/Techni marissa ID = [id number] for Da luzma (contract), Aut her POCT-GLUCOSE [id number] 00:39:43 Test Item Value Reference Range Interpretation Comments POC-GLUCOSE METER 219 mg/dL 70-110 H : TESTED A T [facility] 6720 (BEAKER) (test code = [facility], 1538) 30638: Heel Reducer/Techni marissa ID = [id number] for Da luzma (contract), Aut her POCT-GLUCOSE [id number] 23:37:44 Test Item Value Reference Range Interpretation Comments POC-GLUCOSE METER 145 mg/dL 70-110 H : TESTED A T [facility] 6720 (BEAKER) (test code = [facility], 1538) 58133: Heel Reducer/Techni marissa ID = [id number] for Da luzma (contract), Aut her POCT-GLUCOSE [id number] 22:23:06 Test Item Value Reference Range Interpretation Comments POC-GLUCOSE METER 157 mg/dL 70-110 H : TESTED A T [facility] 6720 (BEAKER) (test code = [facility], 1538) 64977: Heel Reducer/Techni marissa ID = [id number] for Da luzma (contract), Aut her POCT-GLUCOSE [id number] 21:26:32 Test Item Value Reference Range Interpretation Comments POC-GLUCOSE METER 159 mg/dL 70-110 H : TESTED A T [facility] 6720 (BEAKER) (test code = [facility], 1538) 81399: Heel Reducer/Techni marissa ID = [id number] for Da luzma (contract), Aut her POCT-GLUCOSE [id number] 20:20:32 Test Item Value Reference Range Interpretation Comments POC-GLUCOSE METER 162 mg/dL 70-110 H : TESTED A T [facility] 6720 (BEAKER) (test code = [facility], [facility]) 17299: Heel Reducer/Techni marissa ID = [id number] for Bradford segal (contract), Aut her POCT-GLUCOSE [id number] 19:28:01 Test Item Value Reference Range Interpretation Comments POC-GLUCOSE METER 166 mg/dL 70-110 H : TESTED A T [facility] 6720 (BEAKER) (test code = [facility], [facility]8) 25887: Heel Reducer/Techni marissa ID = [id number] for Bradford segal (contract), Aut her POCT-GLUCOSE [id number] 17:17:43 Test Item Value Reference Range Interpretation Comments POC-GLUCOSE METER 168 mg/dL 70-110 H : TESTED A T [facility] 6720 (BEAKER) (test code = [facility], [facility]) 95197: Heel Reducer/Techni marissa ID = [id number] for Ko armandoiBowenen POCT-GLUCOSE [id number] 15:27:05 Test Item Value Reference Range Interpretation Comments POC-GLUCOSE METER 169 mg/dL 70-110 H : TESTED A T [facility] 6720 (BEAKER) (test code = [facility], [facility]) 60569: Heel Reducer/Techni marissa ID = [id number] for Ko bongderejii, Rhonda POCT-GLUCOSE [id number] 13:52:23 Test Item Value Reference Range Interpretation Comments POC-GLUCOSE METER 171 mg/dL 70-110 H : TESTED A T [facility] 6720 (BEAKER) (test code = [facility], [facility]) 49146: Heel Reducer/Techni marissa ID = [id number] for Ko jdecki, Rhonda POCT-GLUCOSE [id number] 12:34:13 Test Item Value Reference Range Interpretation Comments POC-GLUCOSE METER 175 mg/dL 70-110 H : TESTED A T [facility] 6720 (BEAKER) (test code = [facility], [facility]) 87087: Heel Reducer/Techni marissa ID = [id number] for Ko jdecki, Rhonda POCT-GLUCOSE [id number] 11:06:43 Test Item Value Reference Range Interpretation Comments POC-GLUCOSE METER 192 mg/dL 70-110 H : TESTED A T [facility] 6720 (BEAKER) (test code = [facility], 1538) 94934: Heel Reducer/Techni marissa ID = [id number] for Rhonda Machuca POCT-GLUCOSE [id number] 10:22:19 Test Item Value Reference Range Interpretation Comments POC-GLUCOSE METER 227 mg/dL 70-110 H : TESTED A T [facility] 6720 (BEAKER) (test code = [facility], 1538) 46978: Heel Reducer/Techni marissa ID = [id number] for Rhonda Machuca POCT-GLUCOSE [id number] 08:58:37 Test Item Value Reference Range Interpretation Comments POC-GLUCOSE METER 226 mg/dL 70-110 H : TESTED A T [facility] 6720 (BEAKER) (test code = [facility], 1538) 49243: Heel Reducer/Techni marissa ID = [id number] for Rhonda Machuca XR CHEST 1 VIEW PORTABLE / [id number] 08:52:18 [facility] : 1965 Sex: MXR CHEST [...] changes.Additional findings: None. Electronically Signed By: Mavis Ruth/09/2022 08:54 CDTWorkstation Name: [id number] 08:25:57 Test Item Value Reference Range Interpretation Comments POC-GLUCOSE METER 225 mg/dL 70-110 H : TESTED A T [facility] 6720 (BEAKER) (test code [facility], = 1538) 15635: Heel Reducer/Techni marissa ID = [id number] for EDNA MAHONEY (V)SALLIE POCT-GLUCOSE [id number] 05:47:07 Test Item Value Reference Range Interpretation Comments POC-GLUCOSE METER 255 mg/dL 70-110 H : TESTED A T [facility] 6720 (BEAKER) (test code = NAB[facility] Guardado [facility], 1538) 06464: Heel Reducer/Techni marissa ID = [id number] for Ad eulalia, Anton [id number] 04:55:48 Test Item Value Reference Range Interpretation Comments MAGNESIUM (BEAKER) (test code = 2.1 mg/dL 1.6-2.6 627) Heel Reducer ID - [id number] 04:55:48 Test Item Value Reference Range Interpretation Comments PHOSPHORUS (BEAKER) (test code = 4.2 mg/dL 2.3-4.7 604) Heel Reducer ID - MARCOCOMPREHENSIVE METABOLIC [id number] 04:55:47 Test Item Value Reference Range Interpretation [...] not appl icable for dialysis patien ts Heel Reducer ID - MARCOCBC W/PLT COUNT & AUTO [id number] 04:35:37 Test Item Value Reference Range Interpretation [...] PERCENT (BEAKER) (test code = 2801) POCT-GLUCOSE [id number] 04:30:27 Test Item Value Reference Range Interpretation Comments POC-GLUCOSE METER 211 mg/dL 70-110 H : TESTED A T [facility] 6720 (BEAKER) (test code [facility], = 1538) 11087: Heel Reducer/Techni marissa ID = [id number] for EDNA MARU (V), MARIADANGNA POCT-GLUCOSE [id number] 03:18:51 Test Item Value Reference Range Interpretation Comments POC-GLUCOSE METER 185 mg/dL 70-110 H : TESTED A T [facility] 6720 (BEAKER) (test code = [facility] Debby [facility], 1538) 69001: Heel Reducer/Techni marissa ID = [id number] for Ad Anton esteban POCT-GLUCOSE [id number] 02:07:33 Test Item Value Reference Range Interpretation Comments POC-GLUCOSE METER 166 mg/dL 70-110 H : TESTED A T [facility] 6720 (BEAKER) (test code [facility], = 1538) 31055: Heel Reducer/Techni marissa ID = [id number] for EDNA MARU (V), MARIANINA POCT-GLUCOSE [id number] 01:34:01 Test Item Value Reference Range Interpretation Comments POC-GLUCOSE METER 132 mg/dL 70-110 H : TESTED A T [facility] 6720 (BEAKER) (test code [facility], = 1538) 39080: Heel Reducer/Techni marissa ID = [id number] for EDNA MARU (V), MARIANINA POCT-GLUCOSE [id number] 00:27:33 Test Item Value Reference Range Interpretation Comments POC-GLUCOSE METER 154 mg/dL 70-110 H : TESTED A T [facility] 6720 (BEAKER) (test code = [facility], 1538) 92194: Heel Reducer/Techni marissa ID = [id number] for Ad ams, Kimetra POCT-GLUCOSE [id number] 22:47:40 Test Item Value Reference Range Interpretation Comments POC-GLUCOSE METER 170 mg/dL 70-110 H : TESTED A T [facility] 6720 (BEAKER) (test code [facility], = 1538) 57959: Heel Reducer/Techni marissa ID = [id number] for EDNA MARU (V), MARIANINA POCT-GLUCOSE [id number] 21:15:42 Test Item Value Reference Range Interpretation Comments POC-GLUCOSE METER 175 mg/dL 70-110 H : TESTED A T [facility] 6720 (BEAKER) (test code [facility], = 1538) 00336: Heel Reducer/Techni marissa ID = [id number] for EDNA MARU (V), MARIANINA POCT-GLUCOSE [id number] 19:22:07 Test Item Value Reference Range Interpretation Comments POC-GLUCOSE METER 182 mg/dL 70-110 H : TESTED A T [facility] 6720 (BEAKER) (test code = [facility], 1538) 83441: Heel Reducer/Techni marissa ID = [id number] for Bu ggs (contract), Gawenceslao lopezy POCT-GLUCOSE [id number] 18:16:29 Test Item Value Reference Range Interpretation Comments POC-GLUCOSE METER 213 mg/dL 70-110 H : TESTED A T [facility] 6720 (BEAKER) (test code = [facility], [facility]8) 27649: Heel Reducer/Techni marissa ID = [id number] for Bu ggs (contract), Gaf fery POCT-GLUCOSE [id number] 17:05:56 Test Item Value Reference Range Interpretation Comments POC-GLUCOSE METER 213 mg/dL 70-110 H : TESTED A T [facility] 6720 (BEAKER) (test code = [facility], [facility]8) 65195: Heel Reducer/Techni marissa ID = [id number] for Bu ggs (contract), Gaf fery POCT-GLUCOSE [id number] 15:13:11 Test Item Value Reference Range Interpretation Comments POC-GLUCOSE METER 254 mg/dL 70-110 H : TESTED A T [facility] 6720 (BEAKER) (test code = [facility], [facility]8) 43389: Heel Reducer/Techni marissa ID = [id number] for Bu ggs (contract), Gaf fery POCT-GLUCOSE [id number] 13:37:49 Test Item Value Reference Range Interpretation Comments POC-GLUCOSE METER 244 mg/dL 70-110 H : TESTED A T [facility] 6720 (BEAKER) (test code = [facility], [facility]8) 67457: Heel Reducer/Techni marissa ID = [id number] for Bu ggs (contract), Gaf fery POCT-GLUCOSE [id number] 12:24:25 Test Item Value Reference Range Interpretation Comments POC-GLUCOSE METER 249 mg/dL 70-110 H : TESTED A T [facility] 6720 (BEAKER) (test code = [facility], [facility]8) 40217: Heel Reducer/Techni marissa ID = [id number] for Bu ggs (contract), Gaf fery POCT-GLUCOSE [id number] 11:21:35 Test Item Value Reference Range Interpretation Comments POC-GLUCOSE METER 251 mg/dL 70-110 H : TESTED A T [facility] 6720 (BEAKER) (test code = [facility], [facility]8) 71517: Heel Reducer/Techni marissa ID = [id number] for Bu ggs (contract), Gaf fery POCT-GLUCOSE [id number] 10:16:24 Test Item Value Reference Range Interpretation Comments POC-GLUCOSE METER 257 mg/dL 70-110 H : TESTED A T [facility] 6720 (SUNG) (test code = NABOR Guardado [facility], 153) 94566: Heel Reducer/Techni marissa ID = [id number] for Alexandra travis (contract)Gaf zuleta XR CHEST 1 VIEW PORTABLE / [id number] 08:20:26 [facility] GEOFF WEBSTERCLEO GRIGGS : 1965 Sex: MXR [...] None.ElectronicallySigned By: Mavis Vinson02/14/2023 08:22 CDTWorkstation Name: [id number] 07:32:50 Test Item Value Reference Range Interpretation Comments POC-GLUCOSE METER 301 mg/dL 70-110 H : TESTED A T [facility]20 (SUNG) (test code = NABOR Guardado [facility], 153) 62189: Heel Reducer/Techni marissa ID = [id number] for RABIA DURAN POCT-GLUCOSE [id number] 06:21:21 Test Item Value Reference Range Interpretation Comments POC-GLUCOSE METER 303 mg/dL 70-110 H : TESTED A T [facility] 6720 (BEAKER) (test code = [facility] [place], 1538) 51361: Heel Reducer/Techni marissa ID = [id number] for Jessica Paredes [id number] 05:24:47 Test Item Value Reference Range Interpretation Comments PHOSPHORUS (BEAKER) (test code = 4.0 mg/dL 2.3-4.7 604) Heel Reducer ID - ADMINCOMPREHENSIVE METABOLIC [id number] 05:24:46 Test Item Value Reference Range Interpretation [...] is not as accur ate as Creatinine uZri hylton in predicting glom erular filtration rate . Estimated GFR is not appl icable for dialysis patien ts Heel Reducer ID - [id number] 05:24:46 Test Item Value Reference Range Interpretation Comments MAGNESIUM (BEAKER) (test code = 2.3 mg/dL 1.6-2.6 627) Heel Reducer ID - ADMINCBC W/PLT COUNT & AUTO [id number] 05:02:07 Test Item Value Reference Range Interpretation [...] PERCENT (BEAKER) (test code = 2801) POCT-GLUCOSE [id number] 04:35:21 Test Item Value Reference Range Interpretation Comments POC-GLUCOSE METER 331 mg/dL 70-110 H : TESTED A T [facility] 6720 (BEAKER) (test code = [facility], [facility]) 41875: Heel Reducer/Techni marissa ID = [id number] for Francois sachi Jessica POCT-GLUCOSE [id number] 02:54:17 Test Item Value Reference Range Interpretation Comments POC-GLUCOSE METER 296 mg/dL 70-110 H : TESTED A T [facility] 6720 (BEAKER) (test code = [facility], 1538) 91171: Heel Reducer/Techni marissa ID = [id number] for Bradford sevillaels (contract), Aut her POCT-GLUCOSE [id number] 00:28:32 Test Item Value Reference Range Interpretation Comments POC-GLUCOSE METER 175 mg/dL 70-110 H : TESTED A T [facility] 6720 (BEAKER) (test code = [facility], 1538) 48197: Heel Reducer/Techni marissa ID = [id number] for Oswaldo Hou POCT-GLUCOSE [id number] 23:08:22 Test Item Value Reference Range Interpretation Comments POC-GLUCOSE METER 147 mg/dL 70-110 H : TESTED A T [facility] 6720 (BEAKER) (test code = [facility], 1538) 19981: Heel Reducer/Techni marissa ID = [id number] for Jessica Paredes POCT-GLUCOSE [id number] 21:39:04 Test Item Value Reference Range Interpretation Comments POC-GLUCOSE METER 167 mg/dL 70-110 H : TESTED A T [facility] 6720 (BEAKER) (test code = [facility] Debby [facility], 1538) 22766: Heel Reducer/Techni marissa ID = [id number] for Jessica Paredes POCT-GLUCOSE [id number] 18:38:37 Test Item Value Reference Range Interpretation Comments POC-GLUCOSE METER 161 mg/dL 70-110 H : TESTED A T [facility] 6720 (BEAKER) (test code = [facility], 1538) 03767: Heel Reducer/Techni marissa ID = [id number] for Alexandra travis (contract)Gaf zuleta XR CHEST 1 VIEW PORTABLE / [id number] 17:12:19 [facility]EX[facility] : 1965 Sex: MEXAMINATION: XR [...] Signed By: Solis Zapata02/13/2023 17:14 CDTWorkstation Name: [id number] 17:00:24 Test Item Value Reference Range Interpretation Comments POC-GLUCOSE METER 193 mg/dL 70-110 H : TESTED A T [facility] 6720 (DelectableAKER) (test code = NABOR Guardado [facility], 1538) 67172: Heel Reducer/Techni marissa ID = [id number] for Bu ggs (contract), Gaf jessicay POCT-GLUCOSE [id number] 15:57:22 Test Item Value Reference Range Interpretation Comments POC-GLUCOSE METER 192 mg/dL 70-110 H : TESTED A T [facility] 6720 ([employer]) (test code = [facility], 1538) 52278: Heel Reducer/Techni marissa ID = [id number] for Bu ggs (contract), Gaf fery XR CHEST 1 VIEW PORTABLE / [id number] 14:23:09 [facility] DEXTER WEB[facility] INDU : 1965 Sex: MEXAMINATION: XR CHEST 1 VIEW PORTABLE / BEDSIDE INDICATION: Self Extubation, interval chest tube removal, atelectasis,effusion, pneumonia, pneumothorax.COMPARISON: CXR of the prior day FINDINGS:LINES/TUBES: Interval extubation and removal of right IJ [place] Ganzcatheter and left chest tube. Enteric tube [...] Signed By: June Soto02/13/2023 14:25 CDTWorkstation Name: [id number] 14:20:36 Test Item Value Reference Range Interpretation Comments POC-GLUCOSE METER 199 mg/dL 70-110 H : TESTED A T [facility] 6720 (BEAKER) (test code = [facility], 1538) 05055: Heel Reducer/Techni marissa ID = [id number] for Bu ggs (contract), Gaf fery POCT-GLUCOSE [id number] 13:02:36 Test Item Value Reference Range Interpretation Comments POC-GLUCOSE METER 211 mg/dL 70-110 H : TESTED A T [facility] 6720 (BEAKER) (test code = [facility], 1538) 38726: Heel Reducer/Techni marissa ID = [id number] for Bu ggs (contract), Gaf fery POCT-GLUCOSE [id number] 12:05:41 Test Item Value Reference Range Interpretation Comments POC-GLUCOSE METER 221 mg/dL 70-110 H : TESTED A T [facility] 6720 (BEAKER) (test code = [facility], 1538) 62354: Heel Reducer/Techni marissa ID = [id number] for Bu ggs (contract), Gaf fery POCT-GLUCOSE [id number] 11:01:33 Test Item Value Reference Range Interpretation Comments POC-GLUCOSE METER 226 mg/dL 70-110 H : TESTED A T [facility] 6720 (BEAKER) (test code = [facility], 1538) 80510: Heel Reducer/Techni marissa ID = [id number] for Bu ggs (contract), Gaf fery POCT-GLUCOSE [id number] 09:56:08 Test Item Value Reference Range Interpretation Comments POC-GLUCOSE METER 231 mg/dL 70-110 H : TESTED A T [facility] 6720 (BEAKER) (test code = [facility], 1538) 64727: Heel Reducer/Techni marissa ID = [id number] for Bu ggs (contract), Gaf fery POCT-GLUCOSE [id number] 09:01:00 Test Item Value Reference Range Interpretation Comments POC-GLUCOSE METER 224 mg/dL 70-110 H : TESTED A T [facility] 6720 (BEAKER) (test code = [facility], 1538) 47498: Heel Reducer/Techni marissa ID = [id number] for Bu ggs (contract), Gaf fery POCT-GLUCOSE [id number] 07:55:27 Test Item Value Reference Range Interpretation Comments POC-GLUCOSE METER 190 mg/dL 70-110 H : TESTED A T [facility] 6720 (BEAKER) (test code = [facility], 1538) 45535: Heel Reducer/Techni marissa ID = [id number] for Bu ggs (contract), Gaf fery POCT-GLUCOSE [id number] 07:06:26 Test Item Value Reference Range Interpretation Comments POC-GLUCOSE METER 139 mg/dL 70-110 H : TESTED A T [facility] 6720 (BEAKER) (test code = [facility], 1538) 89391: Heel Reducer/Techni marissa ID = [id number] for Bu ggs (contract), Gaf fery POCT-GLUCOSE [id number] 06:20:48 Test Item Value Reference Range Interpretation Comments POC-GLUCOSE METER 153 mg/dL 70-110 H : TESTED A T [facility] 6720 (BEAKER) (test code = [facility], 1538) 70874: Heel Reducer/Techni marissa ID = [id number] for Speedy wman, Shaye POCT-GLUCOSE [id number] 05:36:24 Test Item Value Reference Range Interpretation Comments POC-GLUCOSE METER 158 mg/dL 70-110 H : TESTED A T [facility] 6720 (BEAKER) (test code = [facility], 1538) 25030: Heel Reducer/Techni marissa ID = [id number] for Speedy wman, Shaye XR CHEST 1 VIEW PORTABLE / [id number] 05:07:26 [facility] [place]: DEXTER WEBSTER : 1965 Sex: MXR CHEST 1 VIEW PORTABLE / BEDSIDEINDICATION: daily morningCOMPARISON: Prior day's examFINDINGS: Portable frontal view of the chest. IMPRESSION:Support Lines: The pulmonary arterial catheter has been removed.Otherwise, stable. Lungs and pleura: Unchanged left greater than right airspace and pleuralopacities. No pneumothorax.Heart and mediastinum: Stable contours.Additional findings: None.Electronically Signed By: Chilango Braga02/13/2023 05:09 CDTWorkstation Name: [id number] 04:17:38 Test Item Value Reference Range Interpretation Comments POC-GLUCOSE METER 198 mg/dL 70-110 H : TESTED A T [facility] ([facility]) (test code = [facility], 1538) 14345: Heel Reducer/Techni marissa ID = [id number] for Joie Enriqueca POCT-GLUCOSE [id number] 03:09:38 Test Item Value Reference Range Interpretation Comments POC-GLUCOSE METER 206 mg/dL 70-110 H : TESTED A T [facility] (BEAKER) (test code = [facility], 1538) 91858: Heel Reducer/Techni marissa ID = [id number] for Speedy an, Shaye COMPREHENSIVE METABOLIC [id number] 02:57:39 Test Item Value Reference Range Interpretation [...] not appl icable for dialysis patien ts Heel Reducer ID - [id number] 02:56:20 Test Item Value Reference Range Interpretation Comments MAGNESIUM (BEAKER) (test code = 2.2 mg/dL 1.6-2.6 627) Heel Reducer ID - [id number] 02:56:20 Test Item Value Reference Range Interpretation Comments PHOSPHORUS (BEAKER) (test code = 3.1 mg/dL 2.3-4.7 604) Heel Reducer ID - ADMINCBC W/PLT COUNT & AUTO [id number] 02:45:52 Test Item Value Reference Range Interpretation [...] PERCENT (BEAKER) (test code = 2801) CALCIUM, [id number] 02:33:02 Test Item Value Reference Range Interpretation Comments CALCIUM IONIZED (BEAKER) (test 1.08 mmol/L 1.12-1.27 L code = 698) PH, BLOOD (BEAKER) (test code = 7.46 1810) POCT-GLUCOSE [id number] 02:17:01 Test Item Value Reference Range Interpretation Comments POC-GLUCOSE METER 215 mg/dL 70-110 H : TESTED A T [facility]20 (BEAKER) (test code = [facility], [facility]8) 21935: Heel Reducer/Techni marissa ID = [id number] for Speedy quiñones, Shaye POCT-GLUCOSE [id number] 01:34:43 Test Item Value Reference Range Interpretation Comments POC-GLUCOSE METER 205 mg/dL 70-110 H : TESTED A T [facility] 6720 (BEAKER) (test code = [facility], [facility]8) 11460: Heel Reducer/Techni marissa ID = [id number] for Speedy an, Shaye POCT-GLUCOSE [id number] 00:20:20 Test Item Value Reference Range Interpretation Comments POC-GLUCOSE METER 193 mg/dL 70-110 H : TESTED A T [facility] 6720 (BEAKER) (test code = [facility], [facility]8) 71430: Heel Reducer/Techni marissa ID = [id number] for Speedy wman, Shaye POCT-GLUCOSE [id number] 23:07:46 Test Item Value Reference Range Interpretation Comments POC-GLUCOSE METER 143 mg/dL 70-110 H : TESTED A T [facility]20 (BEAKER) (test code = [facility], 1538) 11842: Heel Reducer/Techni marissa ID = [id number] for Speedy wman, Shaye POCT-GLUCOSE [id number] 22:11:52 Test Item Value Reference Range Interpretation Comments POC-GLUCOSE METER 160 mg/dL 70-110 H : TESTED A T [facility] 6720 (BEAKER) (test code = [facility], 1538) 72785: Heel Reducer/Techni marissa ID = [id number] for Shaye Enrique POCT-GLUCOSE [id number] 21:10:56 Test Item Value Reference Range Interpretation Comments POC-GLUCOSE METER 202 mg/dL 70-110 H : TESTED A T [facility]20 (BEAKER) (test code = [facility], 1538) 65635: Heel Reducer/Techni marissa ID = [id number] for Shaye Enrique [id number] 20:28:56 Test Item Value Reference Range Interpretation Comments MAGNESIUM (BEAKER) 2.3 mg/dL 1.6-2.6 Specimen slightly (test code = 627) hemolyzed Heel Reducer ID - [id number] 20:28:56 Test Item Value Reference Range Interpretation Comments POTASSIUM (BEAKER) 4.2 meq/L 3.5-5.1 Specimen slightly (test code = 379) hemolyzed Heel Reducer ID - ADMINCALCIUM, [id number] 20:10:27 Test Item Value Reference Range Interpretation Comments CALCIUM IONIZED (BEAKER) (test 1.09 mmol/L 1.12-1.27 L code = 698) PH, BLOOD (BEAKER) (test code = 7.50 1810) POCT-GLUCOSE [id number] 20:04:45 Test Item Value Reference Range Interpretation Comments POC-GLUCOSE METER 249 mg/dL 70-110 H : TESTED A T [facility]20 (BEAKER) (test code = [facility], 153) 46068: Heel Reducer/Techni marissa ID = [id number] for Shaye Enrique POCT-GLUCOSE [id number] 19:15:31 Test Item Value Reference Range Interpretation Comments POC-GLUCOSE METER 284 mg/dL 70-110 H : TESTED A T [facility] (BEAKER) (test code = [facility], 1538) 30464: Heel Reducer/Techni marissa ID = [id number] for Alexandra ggmarva (contract)Gaf zuleta POCT-GLUCOSE [id number] 18:15:16 Test Item Value Reference Range Interpretation Comments POC-GLUCOSE METER 303 mg/dL 70-110 H : TESTED A T [facility] (BEAKER) (test code = [facility], 1538) 10816: Heel Reducer/Techni marissa ID = [id number] for Bu ggs (contract), Gaf fery POCT-GLUCOSE [id number] 16:44:23 Test Item Value Reference Range Interpretation Comments POC-GLUCOSE METER 288 mg/dL 70-110 H : TESTED A T [facility]20 (BEAKER) (test code = [facility], 1538) 19909: Heel Reducer/Techni marissa ID = [id number] for Bu ggs (contract), Gaf fery POCT-GLUCOSE [id number] 14:59:49 Test Item Value Reference Range Interpretation Comments POC-GLUCOSE METER 158 mg/dL 70-110 H : TESTED A T [facility]20 (BEAKER) (test code = [facility], 1538) 54855: Heel Reducer/Techni marissa ID = [id number] for Bu ggs (contract), Gaf fery POCT-GLUCOSE [id number] 14:26:51 Test Item Value Reference Range Interpretation Comments POC-GLUCOSE METER 142 mg/dL 70-110 H : TESTED A T [facility] (BEAKER) (test code = [facility], 1538) 82367: Heel Reducer/Techni marissa ID = [id number] for Bu ggs (contract), Gaf fery POCT-GLUCOSE [id number] 12:00:45 Test Item Value Reference Range Interpretation Comments POC-GLUCOSE METER 158 mg/dL 70-110 H : TESTED A T [facility]20 (BEAKER) (test code = [facility], 1538) 36010: Heel Reducer/Techni marissa ID = [id number] for Bu ggs (contract), Gaf fery POCT-GLUCOSE [id number] 10:30:04 Test Item Value Reference Range Interpretation Comments POC-GLUCOSE METER 208 mg/dL 70-110 H : TESTED A T [facility]20 (BEAKER) (test code = [facility], 1538) 62942: Heel Reducer/Techni marissa ID = [id number] for Bu ggs (contract), Gaf fery POCT-GLUCOSE [id number] 09:27:43 Test Item Value Reference Range Interpretation Comments POC-GLUCOSE METER 216 mg/dL 70-110 H : [facility] (test code = [facility], 1538) 75477: Heel Reducer/Techni marissa ID = [id number] for Bu ggs (contract), Gaf jessicay POCT-GLUCOSE [id number] 08:03:55 Test Item Value Reference Range Interpretation Comments POC-GLUCOSE METER 237 mg/dL 70-110 H : TESTED A T [facility] (SUNG) (test code = [facility], 1538) 58091: Heel Reducer/Techni marissa ID = [id number] for Bu ggs (contract), Gaf fery XR CHEST 1 VIEW PORTABLE / [id number] 07:00:45 [facility] IN[facility] : 1965 Sex: MXR [...] Signed By: Keyur Johnson02/12/2023 07:02 CDTWorkstation Name: [id number] 06:37:50 Test Item Value Reference Range Interpretation Comments POC-GLUCOSE METER 200 mg/dL 70-110 H : TESTED A T [facility]20 (BEAKER) (test code = [facility] [place], 1538) 14105: Heel Reducer/Techni marissa ID = [id number] for Oswaldo Hou POCT-GLUCOSE [id number] 04:22:18 Test Item Value Reference Range Interpretation Comments POC-GLUCOSE METER 185 mg/dL 70-110 H : TESTED A T [facility] (BEAKER) (test code = [facility], 1538) 60690: Heel Reducer/Techni marissa ID = [id number] for Shaye Enrique URINALYSIS W/ REFLEX URINE [id number] 04:18:16 Test Item Value Reference Range Interpretation [...] = Many 1585) SOURCE(BEAKER) (test code = 1808) Heel Reducer ID - [auto]Heel Reducer ID - techCALCIUM, [id number] 04:06:22 Test Item Value Reference Range Interpretation Comments CALCIUM IONIZED (BEAKER) (test 1.05 mmol/L 1.12-1.27 L code = 698) PH, BLOOD (BEAKER) (test code = 7.48 1810) OXYGEN SATURATION, [id number] 04:04:47 Test Item Value Reference Range Interpretation Comments O2 SATURATION (MEASURED) (BEAKER) 85.1 % (test code = 1455) [id number] 02:57:15 Test Item Value Reference Range Interpretation Comments PHOSPHORUS (BEAKER) (test code = 3.5 mg/dL 2.3-4.7 604) Heel Reducer ID - ADMINCOMPREHENSIVE METABOLIC [id number] 02:57:14 Test Item Value Reference Range Interpretation [...] not appl icable for dialysis patien ts Heel Reducer ID - [id number] 02:57:14 Test Item Value Reference Range Interpretation Comments MAGNESIUM (BEAKER) (test code = 2.1 mg/dL 1.6-2.6 627) Heel Reducer ID - ADMINCBC W/PLT COUNT & AUTO [id number] 02:46:54 Test Item Value Reference Range Interpretation [...] PERCENT (BEAKER) (test code = 2801) POCT-GLUCOSE [id number] 02:24:21 Test Item Value Reference Range Interpretation Comments POC-GLUCOSE METER 163 mg/dL 70-110 H : TESTED A T [facility]20 (BEAKER) (test code = [facility], [facility]) 28731: Heel Reducer/Techni marissa ID = [id number] for Speedy wman, Shaye POCT-GLUCOSE [id number] 01:09:29 Test Item Value Reference Range Interpretation Comments POC-GLUCOSE METER 152 mg/dL 70-110 H : TESTED A T [facility] 6720 (BEAKER) (test code = [facility], [facility]) 48943: Heel Reducer/Techni marissa ID = [id number] for Speedy wman, Shaye POCT-GLUCOSE [id number] 00:19:06 Test Item Value Reference Range Interpretation Comments POC-GLUCOSE METER 153 mg/dL 70-110 H : TESTED A T [facility] 6720 (BEAKER) (test code = [facility], [facility]8) 47713: Heel Reducer/Techni marissa ID = [id number] for Speedy wman, Shaye POCT-GLUCOSE [id number] 23:22:06 Test Item Value Reference Range Interpretation Comments POC-GLUCOSE METER 167 mg/dL 70-110 H : TESTED A T [facility] 6720 (BEAKER) (test code = [facility], [facility]8) 29251: Heel Reducer/Techni marissa ID = [id number] for Speedy wman, Shaye POCT-GLUCOSE [id number] 22:36:10 Test Item Value Reference Range Interpretation Comments POC-GLUCOSE METER 171 mg/dL 70-110 H : TESTED A T [facility] 6720 (BEAKER) (test code = [facility], 153) 47822: Heel Reducer/Techni marissa ID = [id number] for Speedy quiñones, Shaye [id number] 21:33:46 Test Item Value Reference Range Interpretation Comments POTASSIUM (BEAKER) (test code = 3.5 meq/L 3.5-5.1 379) Heel Reducer ID - [id number] 21:33:45 Test Item Value Reference Range Interpretation Comments MAGNESIUM (BEAKER) (test code = 2.2 mg/dL 1.6-2.6 627) Heel Reducer ID - ADMINPOCT-GLUCOSE [id number] 21:10:20 Test Item Value Reference Range Interpretation Comments POC-GLUCOSE METER 216 mg/dL 70-110 H : TESTED A T [facility]20 (BEAKER) (test code = [facility], 153) 91863: Heel Reducer/Techni marissa ID = [id number] for Speedy quiñones, Shaye CALCIUM, [id number] 21:08:01 Test Item Value Reference Range Interpretation Comments CALCIUM IONIZED (BEAKER) (test 1.07 mmol/L 1.12-1.27 L code = 698) PH, BLOOD (BEAKER) (test code = 7.59 1810) POCT-GLUCOSE [id number] 20:10:37 Test Item Value Reference Range Interpretation Comments POC-GLUCOSE METER 258 mg/dL 70-110 H : TESTED A T [facility] 6720 (BEAKER) (test code = [facility], 1538) 59831: Heel Reducer/Techni marissa ID = [id number] for Speedy quiñones, Shaye POCT-GLUCOSE [id number] 19:10:38 Test Item Value Reference Range Interpretation Comments POC-GLUCOSE METER 223 mg/dL 70-110 H : TESTED A T [facility] 6720 (BEAKER) (test code = [facility], 1538) 72898: Heel Reducer/Techni marissa ID = [id number] for Ng angelica, MY POCT-GLUCOSE [id number] 16:48:53 Test Item Value Reference Range Interpretation Comments POC-GLUCOSE METER 197 mg/dL 70-110 H : TESTED A T [facility] 6720 (BEAKER) (test code = [facility], 1538) 32513: Heel Reducer/Techni marissa ID = [id number] for Ng angelica, MY POCT-GLUCOSE [id number] 15:26:53 Test Item Value Reference Range Interpretation Comments POC-GLUCOSE METER 227 mg/dL 70-110 H : TESTED A T [facility] 6720 (BEAKER) (test code = [facility], 1538) 69836: Heel Reducer/Techni marissa ID = [id number] for Ng angelica, MY POCT-GLUCOSE [id number] 13:25:27 Test Item Value Reference Range Interpretation Comments POC-GLUCOSE METER 187 mg/dL 70-110 H : TESTED A T [facility] 6720 (BEAKER) (test code = [facility], 1538) 83853: Heel Reducer/Techni marissa ID = [id number] for Ng angelica, MY BLOOD [id number] 12:49:57 Test Item Value Reference Range Interpretation Comments CULTURE (BEAKER) (test No growth in 5 days code = 1095) POCT-GLUCOSE [id number] 11:17:05 Test Item Value Reference Range Interpretation Comments POC-GLUCOSE METER 200 mg/dL 70-110 H : TESTED A T [facility] 6720 (BEAKER) (test code = [facility], 1538) 52821: Heel Reducer/Techni marissa ID = [id number] for Me angela Chano XR CHEST 1 VIEW PORTABLE / [id number] 10:48:57 [facility] GEOFF WEBSTERCLEO GRIGGS : 1965 Sex: MXR [...] Signed By: Keyur Johnson02/11/2023 10:51 CDTWorkstation Name: [id number] 09:37:26 Test Item Value Reference Range Interpretation Comments POC-GLUCOSE METER 197 mg/dL 70-110 H : TESTED A T [facility] 6720 (BEAKER) (test code = [facility], [facility]) 92491: Heel Reducer/Techni marissa ID = [id number] for Ng angelica, MY POCT-GLUCOSE [id number] 09:26:50 Test Item Value Reference Range Interpretation Comments POC-GLUCOSE METER 201 mg/dL 70-110 H : TESTED A T [facility] 6720 (BEAKER) (test code = [facility], [facility]8) 43310: Heel Reducer/Techni marissa ID = [id number] for Ng angelica, MY POCT-GLUCOSE [id number] 08:19:59 Test Item Value Reference Range Interpretation Comments POC-GLUCOSE METER 184 mg/dL 70-110 H : TESTED A T [facility] 6720 (BEAKER) (test code = [facility], 1538) 58632: Heel Reducer/Techni marissa ID = [id number] for Me Keiry millere POCT-GLUCOSE [id number] 07:17:00 Test Item Value Reference Range Interpretation Comments POC-GLUCOSE METER 178 mg/dL 70-110 H : TESTED A T [facility] 6720 (BEAKER) (test code = [facility], [facility]8) 53493: Heel Reducer/Techni marissa ID = [id number] for Ng angelica, MY POCT-GLUCOSE [id number] 06:08:35 Test Item Value Reference Range Interpretation Comments POC-GLUCOSE METER 180 mg/dL 70-110 H : TESTED A T [facility] 6720 (BEAKER) (test code = [facility], 153) 57593: Heel Reducer/Techni marissa ID = [id number] for Shaye Enrique POCT-GLUCOSE [id number] 05:13:09 Test Item Value Reference Range Interpretation Comments POC-GLUCOSE METER 210 mg/dL 70-110 H : TESTED A T [facility] 6720 (BEAKER) (test code = [facility], 1538) 54535: Heel Reducer/Techni marissa ID = [id number] for MIGUEL HODGES POCT-GLUCOSE [id number] 03:18:47 Test Item Value Reference Range Interpretation Comments POC-GLUCOSE METER 192 mg/dL 70-110 H : TESTED A T [facility] 6720 (BEAKER) (test code = [facility], 1538) 46736: Heel Reducer/Techni marissa ID = [id number] for MIGUEL HODGES [id number] 02:38:31 Test Item Value Reference Range Interpretation Comments PHOSPHORUS (BEAKER) (test code = 3.9 mg/dL 2.3-4.7 604) Heel Reducer ID - ADMINCOMPREHENSIVE METABOLIC [id number] 02:38:30 Test Item Value Reference Range Interpretation [...] not appl icable for dialysis patien ts Heel Reducer ID - [id number] 02:38:30 Test Item Value Reference Range Interpretation Comments MAGNESIUM (BEAKER) (test code = 1.9 mg/dL 1.6-2.6 627) Heel Reducer ID - ADMINCALCIUM, [id number] 02:30:07 Test Item Value Reference Range Interpretation Comments CALCIUM IONIZED (BEAKER) (test 1.03 mmol/L 1.12-1.27 L code = 698) PH, BLOOD (BEAKER) (test code = 7.54 1810) CBC W/PLT COUNT & AUTO [id number] 02:29:08 Test Item Value Reference Range Interpretation [...] (BEAKER) (test code = 2801) OXYGEN SATURATION, [id number] 02:25:50 Test Item Value Reference Range Interpretation Comments O2 SATURATION (MEASURED) (BEAKER) 82.3 % (test code = 1455) POCT-GLUCOSE [id number] 02:11:50 Test Item Value Reference Range Interpretation Comments POC-GLUCOSE METER 200 mg/dL 70-110 H : TESTED A T [facility] 6720 (BEAKER) (test code = [facility], [facility]8) 65212: Heel Reducer/Techni marissa ID = [id number] for MS IBI, MNCEDISI POCT-GLUCOSE [id number] 01:11:19 Test Item Value Reference Range Interpretation Comments POC-GLUCOSE METER 188 mg/dL 70-110 H : TESTED A T [facility] 6720 (BEAKER) (test code = [facility], [facility]) 27770: Heel Reducer/Techni marissa ID = [id number] for MS IBI, MNCEDISI POCT-GLUCOSE [id number] 00:13:36 Test Item Value Reference Range Interpretation Comments POC-GLUCOSE METER 163 mg/dL 70-110 H : TESTED A T [facility] 6720 (BEAKER) (test code = [facility], [facility]) 65534: Heel Reducer/Techni marissa ID = [id number] for MS IBI, MNCEDISI POCT-GLUCOSE [id number] 23:11:09 Test Item Value Reference Range Interpretation Comments POC-GLUCOSE METER 130 mg/dL 70-110 H : TESTED A T [facility] 6720 (BEAKER) (test code = [facility], [facility]) 55419: Heel Reducer/Techni marissa ID = [id number] for MS IBI, MNCEDISI POCT-GLUCOSE [id number] 22:12:43 Test Item Value Reference Range Interpretation Comments POC-GLUCOSE METER 148 mg/dL 70-110 H : TESTED A T [facility] 6720 (BEAKER) (test code = [facility], [facility]) 42016: Heel Reducer/Techni marissa ID = [id number] for MS IBI, MNCEDISI POCT-GLUCOSE [id number] 21:12:55 Test Item Value Reference Range Interpretation Comments POC-GLUCOSE METER 195 mg/dL 70-110 H : TESTED A T [facility] 6720 (BEAKER) (test code = [facility], [facility]) 24228: Heel Reducer/Techni marissa ID = [id number] for MS IBI, MNCEDISI CALCIUM, [id number] 20:51:41 Test Item Value Reference Range Interpretation Comments CALCIUM IONIZED (BEAKER) (test 1.05 mmol/L 1.12-1.27 L code = 698) PH, BLOOD (BEAKER) (test code = 7.63 1810) [id number] 20:30:07 Test Item Value Reference Range Interpretation Comments POTASSIUM (BEAKER) 3.6 meq/L 3.5-5.1 Specimen slightly (test code = 379) hemolyzed Heel Reducer ID - ADMINPOCT-GLUCOSE [id number] 20:15:16 Test Item Value Reference Range Interpretation Comments POC-GLUCOSE METER 222 mg/dL 70-110 H : TESTED A T [facility] 6720 (BEAKER) (test code = [facility], 1538) 01828: Heel Reducer/Techni marissa ID = [id number] for Shaye Enrique POCT-GLUCOSE [id number] 19:00:10 Test Item Value Reference Range Interpretation Comments POC-GLUCOSE METER 221 mg/dL 70-110 H : TESTED A T [facility] 6720 (BEAKER) (test code = [facility], 1538) 16800: Heel Reducer/Techni marissa ID = [id number] for Silvia Jackson POCT-GLUCOSE [id number] 17:34:15 Test Item Value Reference Range Interpretation Comments POC-GLUCOSE METER 219 mg/dL 70-110 H : TESTED A T [facility] 6720 (BEAKER) (test code = [facility], 1538) 58888: Heel Reducer/Techni marissa ID = [id number] for Sis Perez [id number] 17:33:39 Test Item Value Reference Range Interpretation Comments POTASSIUM (BEAKER) (test code = 3.7 meq/L 3.5-5.1 379) Heel Reducer ID - ADMINCALCIUM, [id number] 17:11:08 Test Item Value Reference Range Interpretation Comments CALCIUM IONIZED (BEAKER) (test 1.08 mmol/L 1.12-1.27 L code = 698) PH, BLOOD (BEAKER) (test code = 7.58 1810) OXYGEN SATURATION, [id number] 16:56:39 Test Item Value Reference Range Interpretation Comments O2 SATURATION (MEASURED) (BEAKER) 87.5 % (test code = 1455) POCT-GLUCOSE [id number] 16:14:17 Test Item Value Reference Range Interpretation Comments POC-GLUCOSE METER 230 mg/dL 70-110 H : TESTED A T [facility]20 (BEAKER) (test code = [facility], 153) 98059: Heel Reducer/Techni marissa ID = [id number] for Sis Perez POCT-GLUCOSE [id number] 15:22:35 Test Item Value Reference Range Interpretation Comments POC-GLUCOSE METER 237 mg/dL 70-110 H : TESTED A T [facility] 6720 (BEAKER) (test code = [facility], 1538) 56277: Heel Reducer/Techni marissa ID = [id number] for Sis Perez CALCIUM, [id number] 14:50:08 Test Item Value Reference Range Interpretation Comments CALCIUM IONIZED (BEAKER) (test 1.07 mmol/L 1.12-1.27 L code = 698) PH, BLOOD (BEAKER) (test code = 7.51 1810) POCT-GLUCOSE [id number] 13:52:26 Test Item Value Reference Range Interpretation Comments POC-GLUCOSE METER 200 mg/dL 70-110 H : TESTED A T [facility] 6720 (BEAKER) (test code = [facility], 1538) 39721: Heel Reducer/Techni marissa ID = [id number] for Sis Perez POCT-GLUCOSE [id number] 13:06:29 Test Item Value Reference Range Interpretation Comments POC-GLUCOSE METER 188 mg/dL 70-110 H : TESTED A T [facility] 6720 (BEAKER) (test code = [facility], 1538) 57912: Heel Reducer/Techni marissa ID = [id number] for Sis Perez LACTIC ACID, [id number] 12:43:08 Test Item Value Reference Range Interpretation Comments LACTATE BLOOD VENOUS (2) (BEAKER) 1.31 mmol/L 0.50-2.00 (test code = 2872) Heel Reducer ID - ADMINOXYGEN SATURATION, [id number] 12:32:07 Test Item Value Reference Range Interpretation Comments O2 SATURATION (MEASURED) (BEAKER) 69.4 % (test code = 1455) [id number] 12:15:09 Test Item Value Reference Range Interpretation Comments GLUCOSE RANDOM (BEAKER) (test code 236 mg/dL 70-105 H = 652) Heel Reducer ID - [id number] 12:15:08 Test Item Value Reference Range Interpretation Comments PHOSPHORUS (BEAKER) (test code = 3.8 mg/dL 2.3-4.7 604) Heel Reducer ID - [id number] 12:15:08 Test Item Value Reference Range Interpretation Comments POTASSIUM (BEAKER) (test code = 3.9 meq/L 3.5-5.1 379) Heel Reducer ID - [id number] 12:15:07 Test Item Value Reference Range Interpretation Comments MAGNESIUM (BEAKER) (test code = 2.2 mg/dL 1.6-2.6 627) Heel Reducer ID - ADMINPOCT-GLUCOSE [id number] 11:53:41 Test Item Value Reference Range Interpretation Comments POC-GLUCOSE METER 210 mg/dL 70-110 H : TESTED A T [facility] 67[facility] (BEAKER) (test code = [facility], 1538) [id number]: Heel Reducer/Techni marissa ID = [id number] for Sis Perez CALCIUM, [id number] 11:41:54 Test Item Value Reference Range Interpretation Comments CALCIUM IONIZED (BEAKER) (test 1.03 mmol/L 1.12-1.27 L code = 698) PH, BLOOD (BEAKER) (test code = 7.56 1810) POCT-GLUCOSE [id number] 11:15:37 Test Item Value Reference Range Interpretation Comments POC-GLUCOSE METER 230 mg/dL 70-110 H : TESTED A T [facility] 6720 (BEAKER) (test code = [facility], 1538) [id number]: Heel Reducer/Techni marissa ID = [id number] for Silvia Jackson XR CHEST 1 VIEW PORTABLE / [id number] 10:51:07 [facility] : 1965 Sex: MXR CHEST [...] Signed By: Keyur Johnson02/10/2023 10:53 CDTWorkstation Name: [id number] GLUCOSE [id number] 10:05:21 Test Item Value Reference Range Interpretation Comments POC-GLUCOSE METER 242 mg/dL 70-110 H : TESTED A T [facility] 6720 ([employer]) (test code = [facility], 153) 08015: Heel Reducer/Techni marissa ID = [id number] for Silvia Jackson POCT-GLUCOSE [id number] 07:50:42 Test Item Value Reference Range Interpretation Comments POC-GLUCOSE METER 200 mg/dL 70-110 H : TESTED A T [facility] 6720 ([employer]) (test code = [facility], 1538) [id number]: Heel Reducer/Techni marissa ID = [id number] for Fernando Perezn POCT-GLUCOSE [id number] 06:27:55 Test Item Value Reference Range Interpretation Comments POC-GLUCOSE METER 185 mg/dL 70-110 H : TESTED A T [facility] 6720 ([employer]) (test code = [facility], 1538) 64643: Heel Reducer/Techni marissa ID = [id number] for Ge skyard Jamila CALCIUM, [id number] 04:32:04 Test Item Value Reference Range Interpretation Comments CALCIUM IONIZED (BEAKER) (test 1.04 mmol/L 1.12-1.27 L code = 698) PH, BLOOD (BEAKER) (test code = 7.57 1810) COMPREHENSIVE METABOLIC [id number] 04:27:07 Test Item Value Reference Range Interpretation [...] not appl icable for dialysis patien ts Heel Reducer ID - [id number] 04:26:29 Test Item Value Reference Range Interpretation Comments MAGNESIUM (BEAKER) (test code = 2.0 mg/dL 1.6-2.6 627) Heel Reducer ID - [id number] 04:26:29 Test Item Value Reference Range Interpretation Comments PHOSPHORUS (BEAKER) (test code = 2.5 mg/dL 2.3-4.7 604) Heel Reducer ID - ADMINCBC W/PLT COUNT & AUTO [id number] 04:07:21 Test Item Value Reference Range Interpretation [...] PERCENT (BEAKER) (test code = 2801) POCT-GLUCOSE [id number] 02:05:58 Test Item Value Reference Range Interpretation Comments POC-GLUCOSE METER 187 mg/dL 70-110 H : TESTED A T [facility] 6720 (BEAKER) (test code = [facility], [facility]) 25368: Heel Reducer/Techni marissa ID = [id number] for Ge rrard, Jamila POCT-GLUCOSE [id number] 00:56:30 Test Item Value Reference Range Interpretation Comments POC-GLUCOSE METER 206 mg/dL 70-110 H : TESTED A T [facility] 6720 (BEAKER) (test code = [facility], [facility]8) 12857: Heel Reducer/Techni marissa ID = [id number] for Ge rrard, Jamila POCT-GLUCOSE [id number] 23:49:31 Test Item Value Reference Range Interpretation Comments POC-GLUCOSE METER 216 mg/dL 70-110 H : TESTED A T [facility] 6720 (BEAKER) (test code = [facility], 1538) 42801: Heel Reducer/Techni marissa ID = [id number] for Ge rrard, Jamila POCT-GLUCOSE [id number] 22:55:56 Test Item Value Reference Range Interpretation Comments POC-GLUCOSE METER 207 mg/dL 70-110 H : TESTED A T [facility] 6720 (BEAKER) (test code = [facility], 1538) 41308: Heel Reducer/Techni marissa ID = [id number] for Placido Orozcoabelle [id number] 22:52:06 Test Item Value Reference Range Interpretation Comments GLUCOSE RANDOM (BEAKER) (test code 209 mg/dL 70-105 H = 652) Heel Reducer ID - [id number] 22:52:05 Test Item Value Reference Range Interpretation Comments PHOSPHORUS (BEAKER) (test code = 2.8 mg/dL 2.3-4.7 604) Heel Reducer ID - [id number] 22:52:05 Test Item Value Reference Range Interpretation Comments POTASSIUM (BEAKER) (test code = 3.1 meq/L 3.5-5.1 L 379) Heel Reducer ID - [id number] 22:52:04 Test Item Value Reference Range Interpretation Comments MAGNESIUM (BEAKER) (test code = 1.9 mg/dL 1.6-2.6 627) Heel Reducer ID - ADMINCALCIUM, [id number] 22:24:35 Test Item Value Reference Range Interpretation Comments CALCIUM IONIZED (BEAKER) (test 0.98 mmol/L 1.12-1.27 L code = 698) PH, BLOOD (BEAKER) (test code = 7.60 1810) POCT-GLUCOSE [id number] 20:58:43 Test Item Value Reference Range Interpretation Comments POC-GLUCOSE METER 162 mg/dL 70-110 H : TESTED A T [facility] 6720 (BEAKER) (test code = [facility], 1538) 51853: Heel Reducer/Techni marissa ID = [id number] for Dalton leonardo, Jamila POCT-GLUCOSE [id number] 19:50:15 Test Item Value Reference Range Interpretation Comments POC-GLUCOSE METER 220 mg/dL 70-110 H : TESTED A T [facility] 6720 (BEAKER) (test code = [facility], 1538) 17321: Heel Reducer/Techni marissa ID = [id number] for Dalton leonardo, Jamila POCT-GLUCOSE [id number] 18:33:45 Test Item Value Reference Range Interpretation Comments POC-GLUCOSE METER 253 mg/dL 70-110 H : TESTED A T [facility] 6720 (BEAKER) (test code = [facility], 1538) 48512: Heel Reducer/Techni marissa ID = [id number] for Ge rrard, Jamila POCT-GLUCOSE [id number] 17:21:51 Test Item Value Reference Range Interpretation Comments POC-GLUCOSE METER 293 mg/dL 70-110 H : TESTED A T [facility] (BEAKER) ([facility], 1538) 23186: Heel Reducer/Techni marissa ID = [id number] for Ge rrard, Jamila POCT-GLUCOSE [id number] 16:41:30 Test Item Value Reference Range Interpretation Comments POC-GLUCOSE METER 281 mg/dL 70-110 H : TESTED A T [facility] 6720 (BEAKER) (test code = [facility] Debby [facility], 1538) 97927: Heel Reducer/Techni marissa ID = [id number] for Dionna Galarza OXYGEN SATURATION, [id number] 16:22:33 Test Item Value Reference Range Interpretation Comments O2 SATURATION (MEASURED) ([facility]) 79.8 % (test code = 1455) POCT-GLUCOSE [id number] 15:59:49 Test Item Value Reference Range Interpretation Comments POC-GLUCOSE METER 260 mg/dL 70-110 H : TESTED A T [facility] 6720 (BEAKER) (test code = [facility], 1538) 10449: Heel Reducer/Techni marissa ID = [id number] for RAHEEM KOENIG XR CHEST 1 VIEW PORTABLE / [id number] 12:16:13 [facility] : 1965 Sex: MXR CHEST [...] Signed By: Keyur Johnson02/09/2023 12:18 CDTWorkstation Name: [id number] METER 2023-02-09 12:01:53 Test Item Value Reference Range Interpretation Comments POC-GLUCOSE METER 160 mg/dL 70-110 H : TESTED A T [facility] 6720 (BEAKER) (test code = [facility], 1538) 11388: Heel Reducer/Techni marissa ID = [id number] for Tj Ya POCT-GLUCOSE [id number] 11:32:08 Test Item Value Reference Range Interpretation Comments POC-GLUCOSE METER 176 mg/dL 70-110 H : TESTED A T [facility] 6720 (BEAKER) (test code = [facility], 1538) 00272: Heel Reducer/Techni marissa ID = [id number] for Ge rrard, Jamila POCT-GLUCOSE [id number] 09:37:24 Test Item Value Reference Range Interpretation Comments POC-GLUCOSE METER 229 mg/dL 70-110 H : TESTED A T [facility] 6720 (BEAKER) (test code = [facility], 1538) 32588: Heel Reducer/Techni marissa ID = [id number] for Ge rrard, Jamila POCT-GLUCOSE [id number] 08:34:38 Test Item Value Reference Range Interpretation Comments POC-GLUCOSE METER 245 mg/dL 70-110 H : TESTED A T [facility] 6720 (BEAKER) (test code = [facility], 1538) 43091: Heel Reducer/Techni marissa ID = [id number] for Ge rrard, Jamila POCT-GLUCOSE [id number] 06:12:35 Test Item Value Reference Range Interpretation Comments POC-GLUCOSE METER 240 mg/dL 70-110 H : TESTED A T [facility] 6720 (BEAKER) (test code = [facility], 1538) 90705: Heel Reducer/Techni marissa ID = [id number] for Re ashish, Oswaldo POCT-GLUCOSE [id number] 05:23:09 Test Item Value Reference Range Interpretation Comments POC-GLUCOSE METER 243 mg/dL 70-110 H : TESTED A T [facility] 6720 (BEAKER) (test code = [facility], 1538) 25999: Heel Reducer/Techni marissa ID = [id number] for Re ashish, Oswaldo POCT-GLUCOSE [id number] 04:08:48 Test Item Value Reference Range Interpretation Comments POC-GLUCOSE METER 152 mg/dL 70-110 H : TESTED A T [facility] 6720 (BEAKER) (test code = [facility], 1538) 07328: Heel Reducer/Techni marissa ID = [id number] for Re ashish, Oswaldo POCT-GLUCOSE [id number] 03:17:25 Test Item Value Reference Range Interpretation Comments POC-GLUCOSE METER 164 mg/dL 70-110 H : TESTED A T [facility] 6720 (BEAKER) (test code = [facility], 1538) 89946: Heel Reducer/Techni marissa ID = [id number] for Re ashish, Oswaldo (CELLAVISION MANUAL DIFF)2023-02-09 [...] CONCENTRATION Adequate (CELLAVISION)(BEAKER) (test code = 3438) Heel Reducer ID - Nicolette Alvarenga comments: Slide comments:CBC W/PLT COUNT & AUTO [id number] 03:15:22 Test Item Value Reference Range Interpretation [...] (BEAKER) (test code = 413) COMPREHENSIVE METABOLIC [id number] 02:57:40 Test Item Value Reference Range Interpretation [...] not appl icable for dialysis patien ts Heel Reducer ID - [id number] 02:49:38 Test Item Value Reference Range Interpretation Comments PHOSPHORUS (BEAKER) (test code = 2.4 mg/dL 2.3-4.7 604) Heel Reducer ID - [id number] 02:49:37 Test Item Value Reference Range Interpretation Comments MAGNESIUM (BEAKER) (test code = 2.0 mg/dL 1.6-2.6 627) Heel Reducer ID - ADMINPOCT-GLUCOSE [id number] 02:09:36 Test Item Value Reference Range Interpretation Comments POC-GLUCOSE METER 210 mg/dL 70-110 H : TESTED A T [facility] 6720 (BEAKER) (test code = [facility], [facility]8) 38760: Heel Reducer/Techni marissa ID = [id number] for Re ashish, Oswaldo POCT-GLUCOSE [id number] 01:06:03 Test Item Value Reference Range Interpretation Comments POC-GLUCOSE METER 221 mg/dL 70-110 H : TESTED A T [facility] 6720 (BEAKER) (test code = [facility], 1538) 49410: Heel Reducer/Techni marissa ID = [id number] for Re ashish, Oswaldo POCT-GLUCOSE [id number] 23:49:51 Test Item Value Reference Range Interpretation Comments POC-GLUCOSE METER 237 mg/dL 70-110 H : TESTED A T [facility] 6720 (BEAKER) (test code = [facility], 1538) 74209: Heel Reducer/Techni marissa ID = [id number] for Re ashish, Oswaldo POCT-GLUCOSE [id number] 22:49:54 Test Item Value Reference Range Interpretation Comments POC-GLUCOSE METER 164 mg/dL 70-110 H : TESTED A T [facility] 6720 (BEAKER) (test code = [facility], 1538) 37284: Heel Reducer/Techni marissa ID = [id number] for Re ashish, Oswaldo POCT-GLUCOSE [id number] 22:17:40 Test Item Value Reference Range Interpretation Comments POC-GLUCOSE METER 115 mg/dL 70-110 H : TESTED A T [facility] 6720 (BEAKER) (test code = [facility], 153) 98813: Heel Reducer/Techni marissa ID = [id number] for Re ashish, Oswaldo POCT-GLUCOSE [id number] 21:17:47 Test Item Value Reference Range Interpretation Comments POC-GLUCOSE METER 153 mg/dL 70-110 H : TESTED A T [facility] 6720 (BEAKER) (test code = [facility], [facility]8) 40638: Heel Reducer/Techni marissa ID = [id number] for Re ashish, Oswaldo POCT-GLUCOSE [id number] 20:16:59 Test Item Value Reference Range Interpretation Comments POC-GLUCOSE METER 166 mg/dL 70-110 H : TESTED A T [facility] 6720 (BEAKER) (test code = [facility], [facility]8) 25522: Heel Reducer/Techni marissa ID = [id number] for Re ashish, Oswaldo POCT-GLUCOSE [id number] 16:23:25 Test Item Value Reference Range Interpretation Comments POC-GLUCOSE METER 205 mg/dL 70-110 H : TESTED A T [facility] 6720 (BEAKER) (test code = [facility], [facility]) 73074: Heel Reducer/Techni marissa ID = [id number] for Nathan woodylaurekain, Rhonda POCT-GLUCOSE [id number] 14:34:02 Test Item Value Reference Range Interpretation Comments POC-GLUCOSE METER 204 mg/dL 70-110 H : TESTED A T [facility] 6720 (BEAKER) (test code = [facility], [facility]) 87757: Heel Reducer/Techni marissa ID = [id number] for Ko jdecki, Rhonda POCT-GLUCOSE [id number] 13:41:04 Test Item Value Reference Range Interpretation Comments POC-GLUCOSE METER 171 mg/dL 70-110 H : TESTED A T [facility] 6720 (BEAKER) (test code = [facility], 153) 78263: Heel Reducer/Techni marissa ID = [id number] for Ko jdecki, Rhonda POCT-GLUCOSE [id number] 12:55:18 Test Item Value Reference Range Interpretation Comments POC-GLUCOSE METER 144 mg/dL 70-110 H : TESTED A T [facility] 6720 (BEAKER) (test code = [facility], 1538) 73641: Heel Reducer/Techni marissa ID = [id number] for Rhonda Machuca BRONCHIAL CULTURE + GRAM [id number] 11:14:09 Test Item Value Reference Range Interpretation Comments CULTURE (BEAKER) <1+ Normal respiratory (test code = 1095) addy present GRAM STAIN RESULT 3+ WBCs (BEAKER) (test code = 1123) GRAM STAIN RESULT No organisms seen (BEAKER) (test code = 26391) POCT-GLUCOSE [id number] 10:38:08 Test Item Value Reference Range Interpretation Comments POC-GLUCOSE METER 169 mg/dL 70-110 H : TESTED A T [facility] 6720 (BEAKER) (test code = [facility], 1538) 63855: Heel Reducer/Techni marissa ID = [id number] for Rhonda Machuca POCT-GLUCOSE [id number] 08:42:03 Test Item Value Reference Range Interpretation Comments POC-GLUCOSE METER 176 mg/dL 70-110 H : TESTED A T [facility] 6720 (BEAKER) (test code = [facility], 1538) 60556: Heel Reducer/Techni marissa ID = [id number] for Rhonda Machuca XR CHEST 1 VIEW PORTABLE / [id number] 08:20:58 [facility] : 1965 Sex: MXR CHEST [...] Signed By: Keyur Johnson02/08/2023 08:23 CDTWorkstation Name: [id number] METER 2023-02-08 06:35:08 Test Item Value Reference Range Interpretation Comments POC-GLUCOSE METER 175 mg/dL 70-110 H : Notified RN/MD: (SUNG) (test code = TESTED AT [place] [address]) [facility], [address]: Heel Reducer/Techni marissa ID = [id number] for Munir Alvarez POCT-GLUCOSE [id number] 04:41:39 Test Item Value Reference Range Interpretation Comments POC-GLUCOSE METER 158 mg/dL 70-110 H : Notified RN/MD: (SUNG) (test code = TESTED AT [place] [address] 153) [facility], [address]: Heel Reducer/Techni marissa ID = [id number] for Munir Alvarez [id number] 03:28:20 Test Item Value Reference Range Interpretation Comments PHOSPHORUS (BEAKER) (test code = 3.5 mg/dL 2.3-4.7 604) Heel Reducer ID - [id number] 03:28:19 Test Item Value Reference Range Interpretation Comments MAGNESIUM (BEAKER) (test code = 2.1 mg/dL 1.6-2.6 627) Heel Reducer ID - MARCOCOMPREHENSIVE METABOLIC [id number] 03:28:18 Test Item Value Reference Range Interpretation [...] not appl icable for dialysis patien ts Heel Reducer ID - MARCOBLOOD GAS, [id number] 03:25:20 Test Item Value Reference Range Interpretation [...] 1819) 40.0 CBC W/PLT COUNT & AUTO [id number] 03:18:05 Test Item Value Reference Range Interpretation [...] PERCENT (BEAKER) (test code = 2801) POCT-GLUCOSE [id number] 02:43:23 Test Item Value Reference Range Interpretation Comments POC-GLUCOSE METER 159 mg/dL 70-110 H : TESTED A T [place] [address] [facility] (test code = [facility], 1538) 78080: Heel Reducer/Techni marissa ID = [id number] for Munir Alvarez POCT-GLUCOSE [id number] 00:13:41 Test Item Value Reference Range Interpretation Comments POC-GLUCOSE METER 159 mg/dL 70-110 H : Notified RN/MD: (SUNG) (test code = TESTED AT [place] [address] 1538) [facility], [address]: Heel Reducer/Techni marissa ID = [id number] for Munir Alvarez POCT-GLUCOSE [id number] 21:39:19 Test Item Value Reference Range Interpretation Comments POC-GLUCOSE METER 158 mg/dL 70-110 H : Notified RN/MD: (SUNG) (test code = TESTED AT [place] [address] 1538) [facility], [address]37: Heel Reducer/Techni marissa ID = [id number] for Munir Alvarez XR ABDOMEN/KUB 1 VIEW [id number] 20:29:08 [facility] CAR[facility] DEXTER GRIGGS : 1965 Sex: MEXAM/TECHNIQUE: XR ABDOMEN/KUB 1 VIEW PORTABLEINDICATION: abd pain and distentionCOMPARISON: 02/06/2023.FINDINGS: Feeding tube terminates in the third portion of duodenum. Nonspecificbowel gas pattern. No acute osseous process. A catheter projects overthe bladder. Hazy pulmonary opacities.IMPRESSION:Nonspecific bowel gas pattern.Electronically Signed By: Dg Oneil02/07/2023 20:31 CDTWorkstation Name: [id number] 18:22:19 Test Item Value Reference Range Interpretation Comments POC-GLUCOSE METER 151 mg/dL 70-110 H : TESTED A T [facility] 6720 (BEAKER) (test code = [facility], 1538) 39612: Heel Reducer/Techni marissa ID = [id number] for Ge rrard, Jamila POCT-GLUCOSE [id number] 16:28:38 Test Item Value Reference Range Interpretation Comments POC-GLUCOSE METER 163 mg/dL 70-110 H : TESTED A T [facility] 6720 (BEAKER) (test code = [facility], 1538) 60753: Heel Reducer/Techni marissa ID = [id number] for Ge rrard, Jamila POCT-GLUCOSE [id number] 14:30:53 Test Item Value Reference Range Interpretation Comments POC-GLUCOSE METER 164 mg/dL 70-110 H : TESTED A T [facility] 6720 (BEAKER) (test code = [facility], 1538) 36503: Heel Reducer/Techni marissa ID = [id number] for Ge rrard, Jamila BASIC METABOLIC [id number] 14:29:48 Test Item Value Reference Range Interpretation [...] not appl icable for dialysis patien ts Heel Reducer ID - ADMINCBC (HEMOGRAM ONLY)2023-02-07 14:10:25 Test [...] (BEAKER) (test code = 413) BLOOD GAS, [id number] 12:29:20 Test Item Value Reference Range Interpretation [...] (BEAKER) (test code = 1819) 40.0 POCT-GLUCOSE [id number] 12:29:04 Test Item Value Reference Range Interpretation Comments POC-GLUCOSE METER 176 mg/dL 70-110 H : TESTED A T [facility] 6720 (BEAKER) (test code = [facility], 1538) 55143: Heel Reducer/Techni marissa ID = [id number] for Ge rrard, Jamila POCT-GLUCOSE [id number] 10:40:52 Test Item Value Reference Range Interpretation Comments POC-GLUCOSE METER 182 mg/dL 70-110 H : TESTED A T [facility] 6720 (BEAKER) (test code = [facility], 1538) 02675: Heel Reducer/Techni marissa ID = [id number] for Ge rrard, Jamila POCT-GLUCOSE [id number] 09:32:22 Test Item Value Reference Range Interpretation Comments POC-GLUCOSE METER 167 mg/dL 70-110 H : TESTED A T [facility] 6720 (BEAKER) (test code = [facility], 1538) 26781: Heel Reducer/Techni marissa ID = [id number] for Ge rrard, Jamila POCT-GLUCOSE [id number] 08:25:35 Test Item Value Reference Range Interpretation Comments POC-GLUCOSE METER 156 mg/dL 70-110 H : [facility] T [facility] (test code = NABOR Guardado [facility], 1538) 35936: Heel Reducer/Techni marissa ID = [id number] for Jamila Orozco POCT-GLUCOSE [id number] 08:00:30 Test Item Value Reference Range Interpretation Comments POC-GLUCOSE METER 173 mg/dL 70-110 H : [facility]ED A T [facility] (test code = NAB[facility] Guardado [facility], 1538) 98262: Heel Reducer/Techni marissa ID = [id number] for STEFAN JAVIER XR CHEST 1 VIEW PORTABLE / [id number] 07:44:01 [facility] : 1965 Sex: MXR CHEST 1 VIEW PORTABLE / BEDSIDEINDICATION: daily morningCOMPARISON: Prior day's examFINDINGS: Portable frontal view of the chest. IMPRESSION:Support Lines: Sheath tip overlies SVC. Two left-sided chest tubes.Feeding tube descends below the diaphragm. Lungs and pleura: Increased bilateral airspace opacities. No significantpneumothorax.Heart and mediastinum: Stable contours. Stable surgical changes.Additional findings: None.Electronically Signed By: Mavis Vinson02/07/2023 07:46 CDTWorkstation Name: [id number] METER 2023-02-07 05:36:06 Test Item Value Reference Range Interpretation Comments POC-GLUCOSE METER 163 mg/dL 70-110 H : TESTED A T [facility] (SUNG) (test code = NABOR Guardado [facility], 1538) 42872: Heel Reducer/Techni marissa ID = [id number] for STEFAN JAVIER TH POCT-GLUCOSE [id number] 05:18:14 Test Item Value Reference Range Interpretation Comments POC-GLUCOSE METER 177 mg/dL 70-110 H : TESTED A T [facility] 6720 (BEAKER) (test code = [facility], 1538) 82144: Heel Reducer/Techni marissa ID = [id number] for STEFAN JAVIER TH POCT-GLUCOSE [id number] 05:05:42 Test Item Value Reference Range Interpretation Comments POC-GLUCOSE METER 177 mg/dL 70-110 H : TESTED A T [facility] 6720 (BEAKER) (test code = [facility], 1538) 67566: Heel Reducer/Techni marissa ID = [id number] for STEFAN JAVIER TH OXYGEN SATURATION, [id number] 04:48:50 Test Item Value Reference Range Interpretation Comments O2 SATURATION (MEASURED) (BEAKER) 86.3 % (test code = 1455) COMPREHENSIVE METABOLIC [id number] 04:04:09 Test Item Value Reference Range Interpretation [...] St age Description sq m Result G1 Lcuy l or high >=90 G2 Mildly decreased [...] not appl icable for dialysis patien ts Heel Reducer ID - [id number] 04:02:42 Test Item Value Reference Range Interpretation Comments PHOSPHORUS (BEAKER) 3.7 mg/dL 2.3-4.7 Specimen slightly (test code = 604) hemolyzed Heel Reducer ID - [id number] 04:02:41 Test Item Value Reference Range Interpretation Comments MAGNESIUM (BEAKER) 2.2 mg/dL 1.6-2.6 Specimen slightly (test code = 627) hemolyzed Heel Reducer ID - ADMINCBC W/PLT COUNT & AUTO [id number] 03:53:02 Test Item Value Reference Range Interpretation [...] GRANULOCYTES-RELATIVE PERCENT (BEAKER) (test code = 2801) [id number] 03:52:33 Test Item Value Reference Range Interpretation [...] for patients with mechanical heart valves.BLOOD GAS, [id number] 03:26:27 Test Item Value Reference Range Interpretation [...] (BEAKER) (test code = 1819) 40.0 POCT-GLUCOSE [id number] 02:06:29 Test Item Value Reference Range Interpretation Comments POC-GLUCOSE METER 182 mg/dL 70-110 H : TESTED A T [facility] 6720 (BEAKER) (test code = [facility], 1538) 14411: Heel Reducer/Techni marissa ID = [id number] for AKHIONBARE, STEFAN TH POCT-GLUCOSE [id number] 00:08:12 Test Item Value Reference Range Interpretation Comments POC-GLUCOSE METER 202 mg/dL 70-110 H : TESTED A T [facility] 6720 (BEAKER) (test code = [facility], 1538) 36855: Heel Reducer/Techni marissa ID = [id number] for AKHIONBARE, STEFAN TH POCT-GLUCOSE [id number] 00:03:18 Test Item Value Reference Range Interpretation Comments POC-GLUCOSE METER 233 mg/dL 70-110 H : TESTED A T [facility] 6720 (BEAKER) (test code = [facility], 153) 69398: Heel Reducer/Techni marissa ID = [id number] for AKHIONBARE, STEFAN TH POCT-GLUCOSE [id number] 22:34:05 Test Item Value Reference Range Interpretation Comments POC-GLUCOSE METER 215 mg/dL 70-110 H : TESTED A T [facility] 6720 (BEAKER) (test code = [facility], [facility]) 29596: Heel Reducer/Techni marissa ID = [id number] for AKHIONBARE, STEFAN TH OXYGEN SATURATION, [id number] 21:45:15 Test Item Value Reference Range Interpretation Comments O2 SATURATION (MEASURED) (BEAKER) 80.7 % (test code = 1455) POCT-GLUCOSE [id number] 20:55:50 Test Item Value Reference Range Interpretation Comments POC-GLUCOSE METER 175 mg/dL 70-110 H : TESTED A T [facility] 6720 (BEAKER) (test code = [facility], [facility]) 9[address]63: Heel Reducer/Techni marissa ID = [id number] for AKHIONBARE, STEFAN TH POCT-GLUCOSE [id number] 19:56:22 Test Item Value Reference Range Interpretation Comments POC-GLUCOSE METER 182 mg/dL 70-110 H : TESTED A T [facility] 6720 (BEAKER) (test code = [facility], [facility]) 11623: Heel Reducer/Techni marissa ID = [id number] for AKHIONBARE, STEFAN TH POCT-GLUCOSE [id number] 18:46:28 Test Item Value Reference Range Interpretation Comments POC-GLUCOSE METER 193 mg/dL 70-110 H : TESTED A T [facility] 67[facility] (BEAKER) (test code = [facility], 153) [address]: Heel Reducer/Techni marissa ID = [id number] for Ge rrard, Jamila POCT-GLUCOSE [id number] 17:57:57 Test Item Value Reference Range Interpretation Comments POC-GLUCOSE METER 165 mg/dL 70-110 H : TESTED A T [facility] (BEAKER) (test code = [facility], [facility]) 339[address]: Heel Reducer/Techni marissa ID = [id number] for Ge rrard, Jamila POCT-GLUCOSE [id number] 17:16:01 Test Item Value Reference Range Interpretation Comments POC-GLUCOSE METER 143 mg/dL 70-110 H : TESTED A T [facility] (BEAKER) (test code = [facility] Guard[facility], 1538) 13922: Heel Reducer/Techni marissa ID = [id number] for Nael Orozcolle POCT-GLUCOSE [id number] 16:46:09 Test Item Value Reference Range Interpretation Comments POC-GLUCOSE METER 123 mg/dL 70-110 H : TESTED A T [facility] (BEAKER) (test code = NABOR Guardado [facility], 1538) 19563: Heel Reducer/Techni marissa ID = [id number] for Jamila Orozco BASIC METABOLIC [id number] 16:28:43 Test Item Value Reference Range Interpretation [...] not appl icable for dialysis patien ts Heel Reducer ID - ADMINLACTIC ACID, [id number] 16:26:20 Test Item Value Reference Range Interpretation Comments LACTATE BLOOD ARTERIAL (2) 1.3 mmol/L 0.5-2.0 (BEAKER) (test code = 2874) Heel Reducer ID - ADMINBLOOD GAS, [id number] 16:16:36 Test Item Value Reference Range Interpretation [...] (BEAKER) (test code = 1819) 40.0 POCT-GLUCOSE [id number] 16:06:25 Test Item Value Reference Range Interpretation Comments POC-GLUCOSE METER 130 mg/dL 70-110 H : TESTED A T [facility] 6720 (BEAKER) (test code = [facility], 1538) 12383: Heel Reducer/Techni marissa ID = [id number] for Ge rrard, Jamila POCT-GLUCOSE [id number] 13:57:01 Test Item Value Reference Range Interpretation Comments POC-GLUCOSE METER 194 mg/dL 70-110 H : TESTED A T [facility] 6720 (BEAKER) (test code = [facility], 1538) 46258: Heel Reducer/Techni marissa ID = [id number] for BE RNABE, RABIA POCT-GLUCOSE [id number] 13:00:34 Test Item Value Reference Range Interpretation Comments POC-GLUCOSE METER 208 mg/dL 70-110 H : TESTED A T [facility] 6720 (BEAKER) (test code = [facility], 1538) 81125: Heel Reducer/Techni marissa ID = [id number] for BE RNABE, RABIA POCT-GLUCOSE [id number] 11:26:04 Test Item Value Reference Range Interpretation Comments POC-GLUCOSE METER 203 mg/dL 70-110 H : TESTED A T [facility] 6720 (BEAKER) (test code = NABOR Guardado [facility], 1538) 03673: Heel Reducer/Techni marissa ID = [id number] for BE RNABE, RABIA XR ABDOMEN/KUB 1 VIEW [id number] 11:10:35 [facility] : 1965 Sex: MAbdomen one viewComparison: 02/06/2023Reason for exam: post Corpak placementFindings:Tip of Corpak projectsover the expected location of duodenum.Bowel gas pattern is nonspecific, nonobstructive. No free airisidentified. Another catheter projects over the central pelvis.Bony structures demonstrate degenerative changes.Electronically Signed By: Merlene Santillan02/06/2023 11:12 CDTWorkstation Name: [id number] 10:28:09 Test Item Value Reference Range Interpretation Comments POC-GLUCOSE METER 207 mg/dL 70-110 H : TESTED A T [facility] 6720 (BEAKER) (test code = [facility] Guardado [facility], 1538) 34450: Heel Reducer/Techni marissa ID = [id number] for BE RNABE, RABIA POCT-GLUCOSE [id number] 09:07:00 Test Item Value Reference Range Interpretation Comments POC-GLUCOSE METER 233 mg/dL 70-110 H : TESTED A T [facility] 6720 (BEAKER) ([facility], 1538) 56956: Heel Reducer/Techni marissa ID = [id number] for RABIA DURAN BLOOD GAS, [id number] 08:49:36 Test Item Value Reference Range Interpretation [...] (BEAKER) (test code = 1819) 40.0 POCT-GLUCOSE [id number] 08:20:14 Test Item Value Reference Range Interpretation Comments POC-GLUCOSE METER 218 mg/dL 70-110 H : TESTED A T [facility] 6720 (BEAKER) (test code = [facility], 1538) 58369: Heel Reducer/Techni marissa ID = [id number] for RABIA DURAN POCT-GLUCOSE [id number] 07:23:59 Test Item Value Reference Range Interpretation Comments POC-GLUCOSE METER 211 mg/dL 70-110 H : TESTED A T [facility] 6720 (BEAKER) (test code = [facility], 1538) 50007: Heel Reducer/Techni marissa ID = [id number] for Jamila Orozco URINALYSIS W/ REFLEX URINE [id number] 06:13:51 Test Item Value Reference Range Interpretation [...] 1 /LPF SOURCE(BEAKER) (test code = 2795) Heel Reducer ID - [auto]Heel Reducer ID - techBLOOD GAS, [id number] 05:44:29 Test Item Value Reference Range Interpretation [...] CONCENTRATION Adequate (CELLAVISION)(BEAKER) (test code = 3438) Heel Reducer ID - Yulissa comments: Slide comments:CBC W/PLT COUNT & AUTO [id number] 04:42:19 Test Item Value Reference Range Interpretation [...] 413) XR CHEST 1 VIEW PORTABLE / [id number] 04:31:47 [facility] : 1965 Sex: MEXAM/TECHNIQUE: Single [...] Signed By: Dg Oneil02/06/2023 04:33 CDTWorkstation Name: [id number] CHEST 1 VIEW PORTABLE / [id number] 04:31:47 [facility] INDU : 1965 Sex: MEXAM/TECHNIQUE: [...] Signed By: Dg Oneil02/06/2023 04:33 CDTWorkstation Name: [id number] ABDOMEN/KUB 1 VIEW [id number] 04:29:20 [facility] INDU : 1965 Sex: MEXAM/TECHNIQUE: XR ABDOMEN/KUB 1 VIEW PORTABLEINDICATION: confirm NGT placementCOMPARISON: None.FINDINGS: Gastric tube is not visualized. Nonspecific bowel gas pattern. No acuteosseous process.IMPRESSION:Gastric tube is not visualized.Electronically Signed By: Dg Oneil02/06/2023 04:31 CDTWorkstation Name: [id number], [id number] 04:02:19 Test Item Value Reference Range Interpretation Comments KETONES, BLOOD (BEAKER) (test code 0.4 mmol/L <0.4 H = 1103) BLOOD GAS, [id number] 03:58:36 Test Item Value Reference Range Interpretation [...] (BEAKER) (test code = 1819) 80.0 POCT-GLUCOSE [id number] 03:07:51 Test Item Value Reference Range Interpretation Comments POC-GLUCOSE METER 179 mg/dL 70-110 H : TESTED A T [facility] 6720 (BEAKER) (test code = N[facility] Guardado [facility], 1538) 59755: Heel Reducer/Techni marissa ID = [id number] for Oswaldo Hou B-TYPE NATRIURETIC FACTOR (BNP)2023-02-06 02:45:11 Test Item Value Reference Range Interpretation Comments B-TYPE NATRIURETIC PEPTIDE 1004 pg/mL 0-100 H (BEAKER) (test code = 700) Heel Reducer ID - FEQUTMYKXPQTDVY4854-33-77 02:38:31 Test Item Value Reference Range Interpretation Comments PHOSPHORUS (BEAKER) (test code = 3.8 mg/dL 2.3-4.7 604) Heel Reducer ID - [id number] 02:38:30 Test Item Value Reference Range Interpretation Comments MAGNESIUM (BEAKER) (test code = 1.9 mg/dL 1.6-2.6 627) Heel Reducer ID - ADMINCOMPREHENSIVE METABOLIC [id number] 02:38:29 Test Item Value Reference Range Interpretation [...] not appl icable for dialysis patien ts Heel Reducer ID - ADMINPT/QBEC1438-31-33 02:32:25 Test Item Value Reference Range Interpretation Comments PROTIME (BEAKER) (test 18.0 seconds 11.9-14.2 H code = 759) INR (SUNG) (test 1.59 See_Comment [Automat ed code = [...] 1 VIEW PORTABLE / BEDSIDE 2023-02-06 02:31:20 [facility] : 1965 Sex: MEXAM/TECHNIQUE: Single [...] Signed By: Dg Oneil02/06/2023 02:33 CDTWorkstation Name: [id number] 02:31:06 Test Item Value Reference Range Interpretation Comments PROTIME (BEAKER) 18.0 seconds 11.9-14.2 H (test code = 759) INR (BEAKER) (test 1.59 See_Comment [Automat ed message] code = 370) The system [employer] generated this result transmitted ref erence range: [...] 1 VIEW PORTABLE / BEDSIDE 2023-02-06 02:16:29 [facility] INDU : 1965 Sex: MEXAM/TECHNIQUE: Single view frontal radiograph of the chest.INDICATION: HypoxiaCOMPARISON: 02/06/2023FINDINGS: Devices/Objects: Stable.Lungs: Decreased left apical pneumothorax. Similar to slightly increasedpulmonary opacities.Heart/Mediastinum: Similar cardiomegaly.Osseous: No acute osseous process. No suspicious osseous lesion.Upper abdomen: Unremarkable.IMPRESSION:Decreased left apical pneumothorax. Similar to slightly increasedpulmonary opacities.Electronically Signed By: Dg Oneil02/06/2023 02:18CDTWorkstation Name: [id number] GAS, [id number] 02:11:20 Test Item Value Reference Range Interpretation [...] 100.0 XR CHEST 1 VIEW PORTABLE / [id number] 01:43:47 [facility] CARMINA DEXTER GRIGGS : 1965 Sex: MEXAM/TECHNIQUE: Single view frontal radiograph of the chest.INDICATION: L pneumothoraxCOMPARISON: 02/05/2023.FINDINGS: Devices/Objects: Unchanged left chest tube and right internal jugularcentral venous catheter sheath.Lungs: Similar left apical pneumothorax. Similar hazy pulmonaryopacities in the lungs.Heart/Mediastinum: Similar cardiomegaly.Osseous: No acute osseous process. No suspicious osseous lesion.Upper abdomen: Unremarkable.IMPRESSION:Similar left apical pneumothorax and bilateral pulmonary opacities.Electronically Signed By: Dg Oneil02/06/2023 01:58 CDTWorkstation Name: [id number] METER 2023-02-06 01:02:50 Test Item Value Reference Range Interpretation Comments POC-GLUCOSE METER 163 mg/dL 70-110 H : TESTED A T [facility] 6720 (BEAKER) (test code = [facility] [place], 1538) 42524: Heel Reducer/Techni marissa ID = [id number] for SC MS, SENORA POCT-GLUCOSE [id number] 00:08:32 Test Item Value Reference Range Interpretation Comments POC-GLUCOSE METER 162 mg/dL 70-110 H : TESTED A T [facility] 6720 (BEAKER) (test code = [facility] Guardado [facility], 1538) 87720: Heel Reducer/Techni marissa ID = [id number] for SC MS, SENORA POCT-GLUCOSE [id number] 00:06:30 Test Item Value Reference Range Interpretation Comments POC-GLUCOSE METER 161 mg/dL 70-110 H : TESTED A T [facility] 6720 (BEAKER) (test code = N[facility] Guardado [facility], 1538) 56105: Heel Reducer/Techni marissa ID = [id number] for Re Oswaldo hinojosa XR CHEST 1 VIEW PORTABLE / [id number] 00:03:42 [facility] : 1965 Sex: MEXAMINATION: XR CHEST 1 VIEW PORTABLE / BEDSIDE INDICATION: increased work of breathingCOMPARISON: CXR of earlier the same day FINDINGS:LINES/TUBES: There is interval removal of the [place]-Michael catheter. Theleft chest tube remain unchanged in position.LUNGS: The lungs are well inflated. Persistent bilateral pu lmonaryedema.PLEURA: There is interval development of left apical pneumothorax.MEDIASTINUM: Persistent cardiomegaly.BONES/SOFT TISSUES: No acute osseous injury.ABDOMEN: No free air under the diaphragm.IMPRESSION:Left apical pneumothorax. The patient's nurse was notified abovefindings on February 06, 2023 at 0003 hours.Electronically Signed By: Atilio Minor02/06/2023 00:05 CDTWorkstation Name: [id number] 21:36:39 Test Item Value Reference Range Interpretation Comments POC-GLUCOSE METER 174 mg/dL 70-110 H : TESTED A T [facility] 6720 (BEAKER) (test code = [facility], 153) 96169: Heel Reducer/Techni marissa ID = [id number] for SC MS, SENORA POCT-GLUCOSE [id number] 19:52:16 Test Item Value Reference Range Interpretation Comments POC-GLUCOSE METER 183 mg/dL 70-110 H : TESTED A T [facility] 6720 (BEAKER) (test code = [facility], 1538) 35588: Heel Reducer/Techni marissa ID = [id number] for SC MS, SENORA POCT-GLUCOSE [id number] 18:41:54 Test Item Value Reference Range Interpretation Comments POC-GLUCOSE METER 152 mg/dL 70-110 H : TESTED A T [facility] 6720 (BEAKER) (test code = [facility], 1538) 07133: Heel Reducer/Techni marissa ID = [id number] for DE NNIS, OSMANY POCT-GLUCOSE [id number] 17:42:14 Test Item Value Reference Range Interpretation Comments POC-GLUCOSE METER 151 mg/dL 70-110 H : TESTED A T [facility] 6720 (BEAKER) (test code = [facility], 153) 85811: Heel Reducer/Techni marissa ID = [id number] for DE NNIS, OSMANY BASIC METABOLIC [id number] 17:00:17 Test Item Value Reference Range Interpretation [...] not appl icable for dialysis patien ts Heel Reducer ID - ADMINBLOOD GAS, [id number] 16:39:33 Test Item Value Reference Range Interpretation [...] (BEAKER) (test code = 1819) 40.0 POCT-GLUCOSE [id number] 16:18:49 Test Item Value Reference Range Interpretation Comments POC-GLUCOSE METER 146 mg/dL 70-110 H : TESTED A T [facility] 6720 (BEAKER) (test code = [facility] Guardado [facility], 1538) 47686: Heel Reducer/Techni marissa ID = [id number] for OSMANY REYES POCT-GLUCOSE [id number] 15:23:20 Test Item Value Reference Range Interpretation Comments POC-GLUCOSE METER 113 mg/dL 70-110 H : TESTED A T [facility] 6720 (BEAKER) (test code = [facility] Guardado [facility], 1538) 85360: Heel Reducer/Techni marissa ID = [id number] for DE OSMANY GREWAL POCT-GLUCOSE [id number] 15:21:20 Test Item Value Reference Range Interpretation Comments POC-GLUCOSE METER 95 mg/dL 70-110 : TESTED A T [facility] 6720 (BEAKER) (test code = [facility], 1538) 79520: Heel Reducer/Techni marissa ID = [id number] for Chano Matta POCT-GLUCOSE [id number] 13:30:25 Test Item Value Reference Range Interpretation Comments POC-GLUCOSE METER 154 mg/dL 70-110 H : TESTED A T [facility] 6720 (BEAKER) (test code = [facility], 1538) 16814: Heel Reducer/Techni marissa ID = [id number] for LAURE NNISOSMANY OSMOLALITY, [id number] 13:18:29 Test Item Value Reference Range Interpretation Comments OSMOLALITY, SERUM (BEAKER) (test 314 mOsm/kg 275-295 H code = 615) POCT-GLUCOSE [id number] 12:09:20 Test Item Value Reference Range Interpretation Comments POC-GLUCOSE METER 220 mg/dL 70-110 H : TESTED A T [facility] 6720 (BEAKER) (test code = [facility], 1538) 61190: Heel Reducer/Techni marissa ID = [id number] for OSMANY REYES BASIC METABOLIC [id number] 11:35:02 Test Item Value Reference Range Interpretation [...] not appl icable for dialysis patien ts Heel Reducer ID - ADMINPOCT-GLUCOSE [id number] 11:15:42 Test Item Value Reference Range Interpretation Comments POC-GLUCOSE METER 232 mg/dL 70-110 H : TESTED A T [facility] 6720 (BEAKER) (test code = [facility] [place], 1538) 47318: Heel Reducer/Techni marissa ID = [id number] for DE ARNAUDPLACIDO OSMANY KETONE, [id number] 11:08:36 Test Item Value Reference Range Interpretation Comments KETONES, BLOOD (BEAKER) (test code 1.1 mmol/L <0.4 H = 1103) OXYGEN SATURATION, [id number] 11:06:48 Test Item Value Reference Range Interpretation Comments O2 SATURATION (MEASURED) (BEAKER) 67.8 % (test code = 1455) BLOOD GAS, [id number] 11:06:11 Test Item Value Reference Range Interpretation [...] (BEAKER) (test code = 1819) 40.0 POCT-GLUCOSE [id number] 10:11:15 Test Item Value Reference Range Interpretation Comments POC-GLUCOSE METER 232 mg/dL 70-110 H : TESTED A T [facility] 6720 (SUNG) (test code = N[facility] Guardado [facility], 1538) 56584: Heel Reducer/Techni marissa ID = [id number] for DE OSMANY GREWAL POCT-GLUCOSE [id number] 09:17:36 Test Item Value Reference Range Interpretation Comments POC-GLUCOSE METER 271 mg/dL 70-110 H : TESTED A T [facility] 6720 (SUNG) (test code = [facility] Guardado [facility], 1538) 77775: Heel Reducer/Techni marissa ID = [id number] for DE NNOSMANY MARIA XR CHEST 1 VIEW PORTABLE / [id number] 08:55:54 [facility] : 1965 Sex: MXR CHEST [...] Signed By: Keyur Johnson02/05/2023 08:58 CDTWorkstation Name: [id number] 08:48:15 Test Item Value Reference Range Interpretation Comments POTASSIUM (SUNG) (test code = 4.8 meq/L 3.5-5.1 379) Heel Reducer ID - [id number] 08:48:15 Test Item Value Reference Range Interpretation Comments GLUCOSE RANDOM (BEAKER) (test code 342 mg/dL 70-105 H = 652) Heel Reducer ID - [id number] 07:35:02 Test Item Value Reference Range Interpretation Comments GLUCOSE RANDOM (BEAKER) (test code 411 mg/dL 70-105 HH = 652) Heel Reducer ID - ADMINPOCT-GLUCOSE [id number] 07:21:04 Test Item Value Reference Range Interpretation Comments POC-GLUCOSE METER 361 mg/dL 70-110 H : TESTED A T [facility] 6720 (BEAKER) (test code = [facility], 153) 13302: Heel Reducer/Techni marissa ID = [id number] for Chano Akers [id number] 07:16:40 Test Item Value Reference Range Interpretation Comments POTASSIUM (BEAKER) (test code = 4.8 meq/L 3.5-5.1 379) Heel Reducer ID - ADMINPOCT-GLUCOSE [id number] 06:35:36 Test Item Value Reference Range Interpretation Comments POC-GLUCOSE METER 367 mg/dL 70-110 H : TESTED A T [facility] 6720 (BEAKER) (test code = [facility], 153) 61465: Heel Reducer/Techni marissa ID = [id number] for PRINCESS CLAUDY SHEPPARD POCT-GLUCOSE [id number] 05:42:59 Test Item Value Reference Range Interpretation Comments POC-GLUCOSE METER 379 mg/dL 70-110 H : TESTED A T [facility] 6720 (BEAKER) (test code = [facility], 153) 33039: Heel Reducer/Techni marissa ID = [id number] for PRINCESS CLAUDY SHEPPARD POCT-GLUCOSE [id number] 04:43:39 Test Item Value Reference Range Interpretation Comments POC-GLUCOSE METER 399 mg/dL 70-110 H : TESTED A T [facility] 6720 (BEAKER) (test code = [facility], 153) 00033: Heel Reducer/Techni marissa ID = [id number] for PRINCESS CLAUDY SHEPPARD COMPREHENSIVE METABOLIC [id number] 04:09:27 Test Item Value Reference Range Interpretation [...] not appl icable for dialysis patien ts Heel Reducer ID - [id number] 04:06:56 Test Item Value Reference Range Interpretation Comments PHOSPHORUS (BEAKER) (test code = 5.4 mg/dL 2.3-4.7 H 604) Heel Reducer ID - [id number] 04:06:55 Test Item Value Reference Range Interpretation Comments MAGNESIUM (BEAKER) (test code = 2.0 mg/dL 1.6-2.6 627) Heel Reducer ID - mmLACTIC ACID, [id number] 04:00:35 Test Item Value Reference Range Interpretation Comments LACTATE BLOOD 1.6 mmol/L 0.5-2.0 Specimen sligh tly ARTERIAL (2) (BEAKER) hemoly zed (test code = 2874) Heel Reducer ID - ADMINPT/MYLR6095-90-55 03:58:52 Test Item Value Reference Range Interpretation [...] 2.5-3.5 for patients with mechanical heart valves.POCT-GLUCOSE [id number] 03:31:18 Test Item Value Reference Range Interpretation Comments POC-GLUCOSE METER 398 mg/dL 70-110 H : TESTED A T [facility] 6720 (BEAKER) (test code = [facility] [place], 1538) 52628: Heel Reducer/Techni marissa ID = [id number] for PRINCESS CLAUDY SHEPPARD (CELLAVISION MANUAL DIFF)2023-02-05 [...] CONCENTRATION Adequate (CELLAVISION)(BEAKER) (test code = 3438) Heel Reducer ID - Rhonda Medina comments: Slide comments:CBC W/PLT COUNT & AUTO [id number] 01:58:19 Test Item Value Reference Range Interpretation [...] CELLS (BEAKER) (test code = 413) POCT-GLUCOSE [id number] 01:39:19 Test Item Value Reference Range Interpretation Comments POC-GLUCOSE METER 384 mg/dL 70-110 H : TESTED A T [facility] 6720 (BEAKER) (test code = [facility]ado [facility], 1538) 37617: Heel Reducer/Techni marissa ID = [id number] for PRINCESS CLAUDY SHEPPARD BLOOD GAS, [id number] 01:21:14 Test Item Value Reference Range Interpretation [...] (test code = 1819) 45.0 OXYGEN SATURATION, [id number] 22:58:33 Test Item Value Reference Range Interpretation Comments O2 SATURATION (MEASURED) (BEAKER) 62.5 % (test code = 1455) BASIC METABOLIC [id number] 21:22:57 Test Item Value Reference Range Interpretation [...] not appl icable for dialysis patien ts Heel Reducer ID - ADMINHGB/HCT (H&H) - STAT [id number] 21:05:40 Test Item Value Reference Range Interpretation Comments HEMOGLOBIN (BEAKER) (test code = 10.3 GM/DL 13.0-16.8 L 410) HEMATOCRIT (BEAKER) (test code = 30.0 % 40.0-50.0 L 411) POTASSIUM-STAT [id number] 21:05:38 Test Item Value Reference Range Interpretation Comments POTASSIUM (BEAKER) (test code = 4.7 meq/L 3.6-5.5 379) GLUCOSE-STAT [id number] 21:05:37 Test Item Value Reference Range Interpretation Comments GLUCOSE RANDOM (BEAKER) (test code 365 mg/dL 70-110 H = 652) SODIUM NA-STAT [id number] 21:05:37 Test Item Value Reference Range Interpretation Comments SODIUM (BEAKER) (test code = 381) 142 meq/L 136-145 BLOOD GAS, [id number] 21:05:31 Test Item Value Reference Range Interpretation [...] (test code = 1819) 50.0 BLOOD GAS, [id number] 19:11:27 Test Item Value Reference Range Interpretation [...] (BEAKER) (test code = 1819) 40.0 POCT-GLUCOSE [id number] 15:06:41 Test Item Value Reference Range Interpretation Comments POC-GLUCOSE METER 84 mg/dL 70-110 : TESTED A T [facility] 6720 (BEAKER) (test code = [facility] [place], 1538) 85302: Heel Reducer/Techni marissa ID = [id number] for Lulu Montalvo [id number] 14:10:39 Test Item Value Reference Range Interpretation Comments PHOSPHORUS (BEAKER) (test code = 3.3 mg/dL 2.3-4.7 604) Heel Reducer ID - [id number] 14:10:38 Test Item Value Reference Range Interpretation Comments MAGNESIUM (BEAKER) (test code = 2.0 mg/dL 1.6-2.6 627) Heel Reducer ID - JSBASIC METABOLIC [id number] 14:10:37 Test Item Value Reference Range Interpretation [...] not appl icable for dialysis patien ts Heel Reducer ID - JSXR CHEST 1 VIEW PORTABLE / [id number] 13:34:59 [facility] : 1965 Sex: MEXAMINATION: [...] Signed By: Atilio Minor02/04/2023 13:37 CDTWorkstation Name: [id number] W/PLT COUNT & AUTO [id number] 13:28:42 Test Item Value Reference Range Interpretation [...] (BEAKER) (test code = 2801) LACTIC ACID, [id number] 13:28:40 Test Item Value Reference Range Interpretation Comments LACTATE BLOOD ARTERIAL (2) 1.6 mmol/L 0.5-2.0 (BEAKER) (test code = 2874) Heel Reducer ID - JSCBC (HEMOGRAM ONLY)2023-02-04 13:19:00 Test [...] (BEAKER) (test code = 413) BLOOD GAS, [id number] 13:10:33 Test Item Value Reference Range Interpretation [...] (BEAKER) (test code = 1819) 100.0 POCT-GLUCOSE [id number] 12:12:54 Test Item Value Reference Range Interpretation Comments POC-GLUCOSE METER 123 mg/dL 70-110 H : TESTED A T [facility] 6720 (BEAKER) (test code = [facility] [place], 1538) 24461: Heel Reducer/Techni marissa ID = [id number] for Lulu Reyes POCT-GLUCOSE [id number] 11:07:56 Test Item Value Reference Range Interpretation Comments POC-GLUCOSE METER 122 mg/dL 70-110 H : TESTED A T [facility] 6720 (BEAKER) (test code = [facility] [place], 1538) 05662: Heel Reducer/Techni marissa ID = [id number] for Po ttsLulu HGB/HCT (H&H) - STAT [id number] 11:01:45 Test Item Value Reference Range Interpretation Comments HEMOGLOBIN (BEAKER) (test code = 10.7 GM/DL 13.0-16.8 L 410) HEMATOCRIT (BEAKER) (test code = 31.0 % 40.0-50.0 L 411) BLOOD GAS, [id number] 11:01:34 Test Item Value Reference Range Interpretation [...] (BEAKER) (test code = 1819) 100.0 POTASSIUM-STAT [id number] 11:00:26 Test Item Value Reference Range Interpretation Comments POTASSIUM (BEAKER) (test code = 4.9 meq/L 3.6-5.5 379) GLUCOSE-STAT [id number] 11:00:24 Test Item Value Reference Range Interpretation Comments GLUCOSE RANDOM (BEAKER) (test code 105 mg/dL 70-110 = 652) SODIUM NA-STAT [id number] 11:00:24 Test Item Value Reference Range Interpretation Comments SODIUM (BEAKER) (test code = 381) 144 meq/L 136-145 XR CHEST 1 VIEW PORTABLE / [id number] 10:11:36 [facility] : 1965 Sex: MXR CHEST [...] Signed By: Keyur Johnson02/04/2023 10:13 CDTWorkstation Name: [id number] 09:01:41 Test Item Value Reference Range Interpretation Comments POC-GLUCOSE METER 123 mg/dL 70-110 H : TESTED A T [facility] 6720 (BEAKER) (test code = [facility], 1538) 45390: Heel Reducer/Techni marissa ID = [id number] for Po tts, Lulu BLOOD GAS, [id number] 08:55:09 Test Item Value Reference Range Interpretation [...] (BEAKER) (test code = 1819) 100.0 POCT-GLUCOSE [id number] 08:04:55 Test Item Value Reference Range Interpretation Comments POC-GLUCOSE METER 122 mg/dL 70-110 H : TESTED A T [facility] 6720 (BEAKER) (test code = NABOR CAMPBELL [place], 1538) [id number]: Heel Reducer/Techni marissa ID = [id number] for Po Lulu plascencia HGB/HCT (H&H) - STAT [id number] 07:59:51 Test Item Value Reference Range Interpretation Comments HEMOGLOBIN (BEAKER) (test code = 10.5 GM/DL 13.0-16.8 L 410) HEMATOCRIT (BEAKER) (test code = 31.0 % 40.0-50.0 L 411) BLOOD GAS, [id number] 07:59:50 Test Item Value Reference Range Interpretation [...] (BEAKER) (test code = 1819) 50.0 POTASSIUM-STAT [id number] 07:59:37 Test Item Value Reference Range Interpretation Comments POTASSIUM (BEAKER) (test code = 4.5 meq/L 3.6-5.5 379) SODIUM NA-STAT [id number] 07:59:36 Test Item Value Reference Range Interpretation Comments SODIUM (BEAKER) (test code = 381) 142 meq/L 136-145 GLUCOSE-STAT [id number] 07:59:35 Test Item Value Reference Range Interpretation Comments GLUCOSE RANDOM (BEAKER) (test code 120 mg/dL 70-110 H = 652) BLOOD GAS, [id number] 06:03:10 Test Item Value Reference Range Interpretation [...] = 1819) 80.0 HGB/HCT (H&H) - STAT [id number] 06:03:03 Test Item Value Reference Range Interpretation Comments HEMOGLOBIN (BEAKER) (test code = 10.6 GM/DL 13.0-16.8 L 410) HEMATOCRIT (BEAKER) (test code = 31.0 % 40.0-50.0 L 411) POTASSIUM-STAT [id number] 06:02:04 Test Item Value Reference Range Interpretation Comments POTASSIUM (BEAKER) (test code = 4.8 meq/L 3.6-5.5 379) SODIUM NA-STAT [id number] 06:02:03 Test Item Value Reference Range Interpretation Comments SODIUM (BEAKER) (test code = 381) 143 meq/L 136-145 GLUCOSE-STAT [id number] 06:02:02 Test Item Value Reference Range Interpretation Comments GLUCOSE RANDOM (BEAKER) (test code 123 mg/dL 70-110 H = 652) POCT-GLUCOSE [id number] 04:40:13 Test Item Value Reference Range Interpretation Comments POC-GLUCOSE METER 118 mg/dL 70-110 H : TESTED A T [facility] 6720 (BEAKER) (test code = [place], 1538) [address]: Heel Reducer/Techni marissa ID = [id number] for [place] [id number] 03:16:57 Test Item Value Reference Range Interpretation Comments PHOSPHORUS (BEAKER) (test code = 3.1 mg/dL 2.3-4.7 604) Heel Reducer ID - [id number] 03:16:56 Test Item Value Reference Range Interpretation Comments MAGNESIUM (BEAKER) (test code = 1.9 mg/dL 1.6-2.6 627) Heel Reducer ID - ADMINCOMPREHENSIVE METABOLIC [id number] 03:16:55 Test Item Value Reference Range Interpretation [...] not appl icable for dialysis patien ts Heel Reducer ID - ADMINLACTIC ACID, [id number] 03:09:08 Test Item Value Reference Range Interpretation Comments LACTATE BLOOD ARTERIAL (2) 2.5 mmol/L 0.5-2.0 H (BEAKER) (test code = 2874) Heel Reducer ID - ADMINPT/[id number] 03:03:30 Test Item Value Reference Range Interpretation [...] for patients with mechanical heart valves.BLOOD GAS, [id number] 02:59:58 Test Item Value Reference Range Interpretation [...] (BEAKER) (test code = 1819) 40.0 CALCIUM, [id number] 02:59:51 Test Item Value Reference Range Interpretation Comments CALCIUM IONIZED (BEAKER) (test 1.18 mmol/L 1.12-1.27 code = 698) PH, BLOOD (BEAKER) (test code = 7.48 1810) OXYGEN SATURATION, [id number] 02:58:28 Test Item Value Reference Range Interpretation Comments O2 SATURATION (MEASURED) (BEAKER) 61.2 % (test code = 1455) CBC W/PLT COUNT & AUTO [id number] 02:55:07 Test Item Value Reference Range Interpretation [...] PERCENT (BEAKER) (test code = 2801) POCT-GLUCOSE [id number] 00:03:17 Test Item Value Reference Range Interpretation Comments POC-GLUCOSE METER 165 mg/dL 70-110 H : TESTED A T [facility] 6720 (BEAKER) (test code = [place], 1538) [address]: Heel Reducer/Techni marissa ID = [id number] for [place] LACTIC ACID, [id number] 23:02:12 Test Item Value Reference Range Interpretation Comments LACTATE BLOOD ARTERIAL (2) 5.6 mmol/L 0.5-2.0 HH (BEAKER) (test code = 2874) Heel Reducer ID - ADMINBLOOD GAS, [id number] 22:20:22 Test Item Value Reference Range Interpretation [...] = 1819) 100.0 HGB/HCT (H&H) - STAT [id number] 22:20:15 Test Item Value Reference Range Interpretation Comments HEMOGLOBIN (BEAKER) (test code = 7.6 GM/DL 13.0-16.8 L 410) HEMATOCRIT (BEAKER) (test code = 22.0 % 40.0-50.0 L 411) POTASSIUM-STAT [id number] 22:19:59 Test Item Value Reference Range Interpretation Comments POTASSIUM (BEAKER) (test code = 4.1 meq/L 3.6-5.5 379) GLUCOSE-STAT [id number] 22:19:58 Test Item Value Reference Range Interpretation Comments GLUCOSE RANDOM (BEAKER) (test code 189 mg/dL 70-110 H = 652) SODIUM NA-STAT [id number] 22:19:58 Test Item Value Reference Range Interpretation Comments SODIUM (BEAKER) (test code = 381) 141 meq/L 136-145 HGB/HCT (H&H) - STAT [id number] 21:36:22 Test Item Value Reference Range Interpretation Comments HEMOGLOBIN (BEAKER) (test code = 8.6 GM/DL 13.0-16.8 L 410) HEMATOCRIT (BEAKER) (test code = 25.0 % 40.0-50.0 L 411) BLOOD GAS, [id number] 21:36:21 Test Item Value Reference Range Interpretation [...] (BEAKER) (test code = 1819) 40.0 POTASSIUM-STAT [id number] 21:36:16 Test Item Value Reference Range Interpretation Comments POTASSIUM (BEAKER) (test code = 3.9 meq/L 3.6-5.5 379) SODIUM NA-STAT [id number] 21:36:15 Test Item Value Reference Range Interpretation Comments SODIUM (BEAKER) (test code = 381) 143 meq/L 136-145 GLUCOSE-STAT [id number] 21:36:14 Test Item Value Reference Range Interpretation Comments GLUCOSE RANDOM (BEAKER) (test code 200 mg/dL 70-110 H = 652) LACTIC ACID, [id number] 21:27:58 Test Item Value Reference Range Interpretation Comments LACTATE BLOOD ARTERIAL (2) 4.4 mmol/L 0.5-2.0 HH (BEAKER) (test code = 2874) Heel Reducer ID - BSKETONE, [id number] 21:05:19 Test Item Value Reference Range Interpretation Comments KETONES, BLOOD (BEAKER) (test code 0.1 mmol/L <0.4 = 1103) BLOOD GAS, [id number] 21:03:36 Test Item Value Reference Range Interpretation [...] = 1819) 40.0 HGB/HCT (H&H) - STAT [id number] 21:03:09 Test Item Value Reference Range Interpretation Comments HEMOGLOBIN (BEAKER) (test code = 8.6 GM/DL 13.0-16.8 L 410) HEMATOCRIT (BEAKER) (test code = 25.0 % 40.0-50.0 L 411) CALCIUM, [id number] 21:00:44 Test Item Value Reference Range Interpretation Comments CALCIUM IONIZED (BEAKER) (test 1.19 mmol/L 1.12-1.27 code = 698) PH, BLOOD (BEAKER) (test code = 7.46 1810) POTASSIUM-STAT [id number] 20:59:31 Test Item Value Reference Range Interpretation Comments POTASSIUM (BEAKER) (test code = 3.9 meq/L 3.6-5.5 379) SODIUM NA-STAT [id number] 20:59:30 Test Item Value Reference Range Interpretation Comments SODIUM (BEAKER) (test code = 381) 142 meq/L 136-145 GLUCOSE-STAT [id number] 20:59:29 Test Item Value Reference Range Interpretation Comments GLUCOSE RANDOM (BEAKER) (test code 201 mg/dL 70-110 H = 652) OXYGEN SATURATION, [id number] 20:59:05 Test Item Value Reference Range Interpretation Comments O2 SATURATION (MEASURED) (BEAKER) 50.7 % (test code = 1455) XR CHEST 1 VIEW PORTABLE / [id number] 20:53:[address] 1965 Sex: MEXAM: XR Chest, 1 ViewCLINICAL INDICATION: post -opTECHNIQUE: Frontal view of the chest.COMPARISON: January 22, 2023FINDINGS:Lungs and pleural spaces: Underinflated lungs with bilateral perihilarand bibasilar edema and/or atelectasis, increased since previous.Heart: See below. Mediastinum: There are mediastinal and left chest tubes in place. Nopneumothorax is seen.Bones/joints: There are multiple sternal wires. The cardiac silhouetteis moderately enlarged.Tubes, lines and devices: There is an endotrachealtube in place withthe tip 2.7 cm from the carlos. There is a right IJ introducer with aSwan-Michael cath eter running to the right main pulmonary artery.IMPRESSION:1. There are mediastinal and left chest tubes in place. No pneumothoraxis seen.2. Underinflated lungs with bilateral perihilar and bibasilar edemaand/or atelectasis, increased since previous.3. There is an endotracheal tube in place with the tip 2.7 cm from thecarina. There is a right IJ introducer with a [place]- Michael catheter runningto the right main pulmonary artery.Electronically Signed By: Delvis Altamirano2023 20:55 CDTWorkstation Name: [id number] 19:18:50 Test Item Value Reference Range Interpretation Comments MAGNESIUM (BEAKER) (test code = 2.3 mg/dL 1.6-2.6 627) Heel Reducer ID - [id number] 19:18:50 Test Item Value Reference Range Interpretation Comments PHOSPHORUS (BEAKER) (test code = 2.6 mg/dL 2.3-4.7 604) Heel Reducer ID - BSBASIC METABOLIC [id number] 19:18:49 Test Item Value Reference Range Interpretation [...] not appl icable for dialysis patien ts Heel Reducer ID - BSLACTIC ACID, [id number] 19:14:06 Test Item Value Reference Range Interpretation Comments LACTATE BLOOD ARTERIAL (2) 3.9 mmol/L 0.5-2.0 H (BEAKER) (test code = 2874) Heel Reducer ID - [id number] 18:30:01 Test Item Value Reference Range Interpretation Comments PARTIAL THROMBOPLASTIN TIME 30.7 seconds 22.5-36.0 (BEAKER) (test code = 760) PROTHROMBIN [id number] 18:29:23 Test Item Value Reference Range Interpretation Comments PROTIME (BEAKER) 20.5 seconds 11.9-14.2 H (test code = 759) INR (BEAKER) (test 1.88 See_Comment [Automat ed message] code = 370) The system [employer] generated this result transmitted ref erence range: <=5.90. The reference range was not used to int erpret this result as normal/abnormal . RECOMMENDED COUMADIN/WARFARIN INR THERAPY RANGESSTANDARD DOSE: 2.0 - 3.0 Includes: PROPHYLAXIS for venous thrombosis, systemic embolization; TREATMENT for venous thrombosis and/or pulmonary embolus.HIGH RISK: Target INR is 2.5-3.5 for patients with mechanical heart valves.CBC W/PLT COUNT & AUTO [id number] 18:27:13 Test Item Value Reference Range Interpretation [...] (BEAKER) (test code = 2801) BLOOD GAS, [id number] 18:20:57 Test Item Value Reference Range Interpretation [...] = 1819) 21.0 HGB/HCT (H&H) - STAT [id number] 18:20:48 Test Item Value Reference Range Interpretation Comments HEMOGLOBIN (BEAKER) (test code = 9.3 GM/DL 13.0-16.8 L 410) HEMATOCRIT (BEAKER) (test code = 27.0 % 40.0-50.0 L 411) CALCIUM, [id number] 18:20:04 Test Item Value Reference Range Interpretation Comments CALCIUM IONIZED (BEAKER) (test 1.20 mmol/L 1.12-1.27 code = 698) PH, BLOOD (BEAKER) (test code = 7.38 1810) OXYGEN SATURATION, [id number] 18:20:04 Test Item Value Reference Range Interpretation Comments O2 SATURATION (MEASURED) (BEAKER) 80.8 % (test code = 1455) POTASSIUM-STAT [id number] 18:19:48 Test Item Value Reference Range Interpretation Comments POTASSIUM (BEAKER) (test code = 3.7 meq/L 3.6-5.5 379) SODIUM NA-STAT [id number] 18:19:41 Test Item Value Reference Range Interpretation Comments SODIUM (BEAKER) (test code = 381) 144 meq/L 136-145 GLUCOSE-STAT [id number] 18:19:39 Test Item Value Reference Range Interpretation Comments GLUCOSE RANDOM (BEAKER) (test code 214 mg/dL 70-110 H = 652) HGB/HCT (H&H) - STAT [id number] 17:07:23 Test Item Value Reference Range Interpretation Comments HEMOGLOBIN (BEAKER) (test code = 13.3 GM/DL 13.0-16.8 410) HEMATOCRIT (BEAKER) (test code = 39.0 % 40.0-50.0 L 411) BLOOD GAS, [id number] 17:07:22 Test Item Value Reference Range Interpretation [...] (BEAKER) (test code = 1819) 100.0 POTASSIUM-STAT [id number] 17:06:47 Test Item Value Reference Range Interpretation Comments POTASSIUM (BEAKER) (test code = 3.8 meq/L 3.6-5.5 379) GLUCOSE-STAT [id number] 17:06:46 Test Item Value Reference Range Interpretation Comments GLUCOSE RANDOM (BEAKER) (test code 221 mg/dL 70-110 H = 652) SODIUM NA-STAT [id number] 17:06:46 Test Item Value Reference Range Interpretation Comments SODIUM (BEAKER) (test code = 381) 147 meq/L 136-145 H BLOOD GAS, [id number] 16:01:50 Test Item Value Reference Range Interpretation [...] = 1819) 100.0 HGB/HCT (H&H) - STAT [id number] 16:01:39 Test Item Value Reference Range Interpretation Comments HEMOGLOBIN (BEAKER) (test code = 9.7 GM/DL 13.0-16.8 L 410) HEMATOCRIT (BEAKER) (test code = 29.0 % 40.0-50.0 L 411) POTASSIUM-STAT [id number] 16:01:33 Test Item Value Reference Range Interpretation Comments POTASSIUM (BEAKER) (test code = 3.8 meq/L 3.6-5.5 379) SODIUM NA-STAT [id number] 16:01:32 Test Item Value Reference Range Interpretation Comments SODIUM (BEAKER) (test code = 381) 141 meq/L 136-145 GLUCOSE-STAT [id number] 16:01:31 Test Item Value Reference Range Interpretation Comments GLUCOSE RANDOM (BEAKER) (test code 245 mg/dL 70-110 H = 652) [id number] 15:29:20 Test Item Value Reference Range Interpretation Comments PARTIAL THROMBOPLASTIN TIME 28.0 seconds 22.5-36.0 (BEAKER) (test code = 760) [id number] 15:29:02 Test Item Value Reference Range Interpretation Comments FIBRINOGEN LEVEL (BEAKER) (test 320 mg/dl 225-434 code = 658) PROTHROMBIN [id number] 15:29:01 Test Item Value Reference Range Interpretation Comments PROTIME (BEAKER) 28.4 seconds 11.9-14.2 H (test code = 759) INR (BEAKER) (test 2.87 See_Comment [Automat ed message] code = 370) The system [employer] generated this result transmitted ref erence range: <=5.90. The reference range was not used to int erpret this result as normal/abnormal . RECOMMENDED COUMADIN/WARFARIN INR THERAPY RANGESSTANDARD DOSE: 2.0 - 3.0 Includes: PROPHYLAXIS for venous thrombosis, systemic embolization; TREATMENT for venous thrombosis and/or pulmonary embolus.HIGH RISK: Target INR is 2.5-3.5 for patients with mechanical heart valves.PLATELET [id number] 15:23:26 Test Item Value Reference Range Interpretation Comments PLATELET COUNT (BEAKER) 133 K/CU MM 150-450 L Post op patient (test code = 756) Heel Reducer ID - [id number] 15:23:07 Test Item Value Reference Range Interpretation Comments ACTIVATED CLOTTING TIME 119 sec : 74 -137 seconds, (BEAKER) (test code = Ld ne: TESTED AT 441) [facility] [address] [place], [address]: Heel Reducer/Techni marissa ID = [id number] for Cu rtis, Umer [id number] 15:23:07 Test Item Value Reference Range Interpretation Comments ACTIVATED CLOTTING TIME 672 sec : 74 -137 seconds, (BEAKER) (test code = Baseli ne: TESTED AT 441) [address], [facility] 30: Heel Reducer/Techni marissa ID = [id number] for Cu rtis, Umer [id number] 15:23:06 Test Item Value Reference Range Interpretation Comments ACTIVATED CLOTTING TIME 137 sec : 74 -137 seconds, (BEAKER) (test code = Baseli ne: TESTED AT 441) [address], [facility] 30: Heel Reducer/Techni marissa ID = [id number] for Cu rtis, Umer [id number] 15:22:28 Test Item Value Reference Range Interpretation Comments ACTIVATED CLOTTING TIME 859 sec : 74 -137 seconds, (BEAKER) (test code = Baseli ne: TESTED AT 441) [address], [facility] 30: Heel Reducer/Techni marissa ID = [id number] for Cu rtis, Umer [id number] 15:22:27 Test Item Value Reference Range Interpretation Comments ACTIVATED CLOTTING TIME 907 sec : 74 -137 seconds, (BEAKER) (test code = Baseli ne: TESTED AT 441) [address], [facility] 30: Heel Reducer/Techni marissa ID = [id number] for Cu rtis, Umer [id number] 15:22:27 Test Item Value Reference Range Interpretation Comments ACTIVATED CLOTTING TIME 444 sec : 74 -137 seconds, (BEAKER) (test code = Baseli ne: TESTED AT 441) [address], [facility] 30: Heel Reducer/Techni marissa ID = [id number] for Cu rtis, Umer BLOOD GAS, [id number] 14:54:10 Test Item Value Reference Range Interpretation [...] = 1819) 100.0 HGB/HCT (H&H) - STAT [id number] 14:54:04 Test Item Value Reference Range Interpretation Comments HEMOGLOBIN (BEAKER) (test code = 7.6 GM/DL 13.0-16.8 L 410) HEMATOCRIT (BEAKER) (test code = 22.0 % 40.0-50.0 L 411) CALCIUM, [id number] 14:53:53 Test Item Value Reference Range Interpretation Comments CALCIUM IONIZED (BEAKER) (test 1.31 mmol/L 1.12-1.27 H code = 698) PH, BLOOD (BEAKER) (test code = 7.40 1810) POTASSIUM-STAT [id number] 14:53:52 Test Item Value Reference Range Interpretation Comments POTASSIUM (BEAKER) (test code = 3.8 meq/L 3.6-5.5 379) GLUCOSE-STAT [id number] 14:53:51 Test Item Value Reference Range Interpretation Comments GLUCOSE RANDOM (BEAKER) (test code 247 mg/dL 70-110 H = 652) SODIUM NA-STAT [id number] 14:53:51 Test Item Value Reference Range Interpretation Comments SODIUM (BEAKER) (test code = 381) 142 meq/L 136-145 HGB/HCT (H&H) - STAT [id number] 14:20:59 Test Item Value Reference Range Interpretation Comments HEMOGLOBIN (BEAKER) (test code = 7.5 GM/DL 13.0-16.8 L 410) HEMATOCRIT (BEAKER) (test code = 22.0 % 40.0-50.0 L 411) BLOOD GAS, [id number] 14:20:58 Test Item Value Reference Range Interpretation [...] (BEAKER) (test code = 1819) 75.0 POTASSIUM-STAT [id number] 14:19:11 Test Item Value Reference Range Interpretation Comments POTASSIUM (BEAKER) (test code = 4.9 meq/L 3.6-5.5 379) SODIUM NA-STAT [id number] 14:19:10 Test Item Value Reference Range Interpretation Comments SODIUM (BEAKER) (test code = 381) 138 meq/L 136-145 GLUCOSE-STAT [id number] 14:19:09 Test Item Value Reference Range Interpretation Comments GLUCOSE RANDOM (BEAKER) (test code 264 mg/dL 70-110 H = 652) HGB/HCT (H&H) - STAT [id number] 13:55:54 Test Item Value Reference Range Interpretation Comments HEMOGLOBIN (BEAKER) (test code = 7.7 GM/DL 13.0-16.8 L 410) HEMATOCRIT (BEAKER) (test code = 23.0 % 40.0-50.0 L 411) BLOOD GAS, [id number] 13:55:53 Test Item Value Reference Range Interpretation [...] (BEAKER) (test code = 1819) 70.0 POTASSIUM-STAT [id number] 13:53:39 Test Item Value Reference Range Interpretation Comments POTASSIUM (BEAKER) (test code = 4.5 meq/L 3.6-5.5 379) SODIUM NA-STAT [id number] 13:53:38 Test Item Value Reference Range Interpretation Comments SODIUM (BEAKER) (test code = 381) 139 meq/L 136-145 GLUCOSE-STAT [id number] 13:53:37 Test Item Value Reference Range Interpretation Comments GLUCOSE RANDOM (BEAKER) (test code 278 mg/dL 70-110 H = 652) BLOOD GAS, [id number] 13:37:50 Test Item Value Reference Range Interpretation [...] = 1819) 70.0 HGB/HCT (H&H) - STAT [id number] 13:37:50 Test Item Value Reference Range Interpretation Comments HEMOGLOBIN (BEAKER) (test code = 7.9 GM/DL 13.0-16.8 L 410) HEMATOCRIT (BEAKER) (test code = 23.0 % 40.0-50.0 L 411) POTASSIUM-STAT [id number] 13:37:39 Test Item Value Reference Range Interpretation Comments POTASSIUM (BEAKER) (test code = 4.8 meq/L 3.6-5.5 379) SODIUM NA-STAT [id number] 13:37:38 Test Item Value Reference Range Interpretation Comments SODIUM (BEAKER) (test code = 381) 139 meq/L 136-145 GLUCOSE-STAT [id number] 13:37:32 Test Item Value Reference Range Interpretation Comments GLUCOSE RANDOM (BEAKER) (test code 284 mg/dL 70-110 H = 652) HGB/HCT (H&H) - STAT [id number] 13:14:58 Test Item Value Reference Range Interpretation Comments HEMOGLOBIN (BEAKER) (test code = 6.1 GM/DL 13.0-16.8 L 410) HEMATOCRIT (BEAKER) (test code = 18.0 % 40.0-50.0 L 411) BLOOD GAS, [id number] 13:14:57 Test Item Value Reference Range Interpretation [...] (BEAKER) (test code = 1819) 80.0 POTASSIUM-STAT [id number] 13:14:34 Test Item Value Reference Range Interpretation Comments POTASSIUM (BEAKER) (test code = 4.2 meq/L 3.6-5.5 379) SODIUM NA-STAT [id number] 13:14:33 Test Item Value Reference Range Interpretation Comments SODIUM (BEAKER) (test code = 381) 138 meq/L 136-145 GLUCOSE-STAT [id number] 13:14:32 Test Item Value Reference Range Interpretation Comments GLUCOSE RANDOM (BEAKER) (test code 275 mg/dL 70-110 H = 652) KETONE, [id number] 13:11:23 Test Item Value Reference Range Interpretation Comments KETONES, BLOOD (BEAKER) (test code 4.0 mmol/L <0.4 H = 1103) HGB/HCT (H&H) - STAT [id number] 12:23:30 Test Item Value Reference Range Interpretation Comments HEMOGLOBIN (BEAKER) (test code = 8.6 GM/DL 13.0-16.8 L 410) HEMATOCRIT (BEAKER) (test code = 25.0 % 40.0-50.0 L 411) BLOOD GAS, [id number] 12:23:29 Test Item Value Reference Range Interpretation [...] (BEAKER) (test code = 1819) 100.0 CALCIUM, [id number] 12:21:35 Test Item Value Reference Range Interpretation Comments CALCIUM IONIZED (BEAKER) (test 1.17 mmol/L 1.12-1.27 code = 698) PH, BLOOD (BEAKER) (test code = 7.25 1810) SODIUM NA-STAT [id number] 12:20:54 Test Item Value Reference Range Interpretation Comments SODIUM (BEAKER) (test code = 381) 138 meq/L 136-145 POTASSIUM-STAT [id number] 12:20:54 Test Item Value Reference Range Interpretation Comments POTASSIUM (BEAKER) (test code = 4.7 meq/L 3.6-5.5 379) GLUCOSE-STAT [id number] 12:20:53 Test Item Value Reference Range Interpretation Comments GLUCOSE RANDOM (BEAKER) (test code 356 mg/dL 70-110 H = 652) CALCIUM, [id number] 10:53:37 Test Item Value Reference Range Interpretation Comments CALCIUM IONIZED (BEAKER) (test 1.12 mmol/L 1.12-1.27 code = 698) PH, BLOOD (BEAKER) (test code = 7.34 1810) HGB/HCT (H&H) - STAT [id number] 10:53:36 Test Item Value Reference Range Interpretation Comments HEMOGLOBIN (BEAKER) (test code = 9.5 GM/DL 13.0-16.8 L 410) HEMATOCRIT (BEAKER) (test code = 28.0 % 40.0-50.0 L 411) BLOOD GAS, [id number] 10:53:35 Test Item Value Reference Range Interpretation [...] (BEAKER) (test code = 1819) 100.0 POTASSIUM-STAT [id number] 10:52:32 Test Item Value Reference Range Interpretation Comments POTASSIUM (BEAKER) (test code = 5.3 meq/L 3.6-5.5 379) SODIUM NA-STAT [id number] 10:52:31 Test Item Value Reference Range Interpretation Comments SODIUM (BEAKER) (test code = 381) 135 meq/L 136-145 L GLUCOSE-STAT [id number] 10:52:30 Test Item Value Reference Range Interpretation Comments GLUCOSE RANDOM (BEAKER) (test code 396 mg/dL 70-110 H = 652) TISSUE [id number] 09:57:11Surgical Pathology Report Case: [id number] Authorizing Provider: Sumaya Mckeon MD Collected: 01/29/2023 05:47 PM Ordering Location: [address] Received: 02/01/2023 08:37 AM Service Pathologist: Sharon Ramesh MD Specimens: A) - Leg, Right B) - Leg, Right A. 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 RIGHT LEG, SKIN PUNCH BIOPSY FOR DIRECT IMMUNOFLUORESCENCE: - IGA, IGM, AND C3 IMMUNOFLUORESCENCE AT DERMAL-EPIDERMAL JUNCTION - NEGATIVE IGG IMMUNOFLUORESCENCE - PLEASE SEE COMMENT BELOW Signing Pathologist Direct Phone Line: [phone] signed by Sharon Ramesh MD on 2023 [...] is favored. Therefore, clinical correlation, including correlation withserologic studies, is recommended.74696, 26893 X 4A. Leg, RightReceived in formalin labeled the patient's name, medical record number, and "RL" is 1 rubio- white to rubio-pink skin punch with a diameter of 0.3 [...] Sections show skin with partial thickness epidermal necrosis, a subepidermal vesicle, and numerous eosinophils.B. Frozen sections [...] evaluated Immunohistochemistry technical testing was performed at [facility], Pathology Laboratory where it was developed and [...] Amendments of 1988 (CLIA-88) as qualified to perform high complexity clinical laboratory testing.BASIC METABOLIC [id number] 07:55:05 Test Item Value Reference Range Interpretation [...] not appl icable for dialysis patien ts Heel Reducer ID - EMOperator ID - EMOperator ID - [id number] 06:57:32 Test Item Value Reference Range Interpretation Comments PHOSPHORUS (BEAKER) (test code = 3.4 mg/dL 2.3-4.7 604) Heel Reducer ID - [id number] 06:57:31 Test Item Value Reference Range Interpretation Comments MAGNESIUM (BEAKER) (test code = 1.9 mg/dL 1.6-2.6 627) Heel Reducer ID - EMPOCT-GLUCOSE [id number] 06:37:23 Test Item Value Reference Range Interpretation Comments POC-GLUCOSE METER 376 mg/dL 70-110 H : TESTED A T [facility] [address] (BEAKER) (test code = [place], [address]38) [address]: Heel Reducer/Techni marissa ID = [id number] for KARSTEN SIDHU CBC W/PLT COUNT & AUTO [id number] 05:49:17 Test Item Value Reference Range Interpretation [...] 0.00-1.00 PERCENT (BEAKER) (test code = 2801) [id number] 05:47:46 Test Item Value Reference Range Interpretation Comments PARTIAL THROMBOPLASTIN TIME 33.6 seconds 22.5-36.0 (BEAKER) (test code = 760) CTA AAA AND [id number] 22:20:18 [facility] : 1965 Sex: MEXAM:CT Angiography Abdomen and [...] Signed By: Delvis Altamirano02/02/2023 22:22 CDTWorkstation Name: [id number] 22:04:17 Test Item Value Reference Range Interpretation Comments POC-GLUCOSE METER 118 mg/dL 70-110 H : TESTED A T [facility] 6720 (DelectableAKER) (test code = [place] [facility], 1538) [id number]: Heel Reducer/Techni marissa ID = [id number] for JEAN-PIERRE WORTHINGTON RA [id number] 17:59:28 Test Item Value Reference Range Interpretation Comments PARTIAL THROMBOPLASTIN TIME 51.6 seconds 22.5-36.0 H (BEAKER) (test code = 760) POCT-GLUCOSE [id number] 17:53:39 Test Item Value Reference Range Interpretation Comments POC-GLUCOSE METER 63 mg/dL 70-110 L : TESTED A T [facility] 6720 (BEAKER) (test code = [employer] [facility], 1538) [id number]: Heel Reducer/Techni marissa ID = [id number] for JAYA DANIELLE [id number] 09:37:38 Test Item Value Reference Range Interpretation [...] 0-0 (BEAKER) (test code = 413) POCT-GLUCOSE [id number] 09:10:45 Test Item Value Reference Range Interpretation Comments POC-GLUCOSE METER 245 mg/dL 70-110 H : TESTED A T [facility] 6720 (BEAKER) (test code = NABOR CAMPBELL [place], 1538) [address]: Heel Reducer/Techni marissa ID = [id number] for JAYA CORDERO [id number] 03:25:59 Test Item Value Reference Range Interpretation Comments PARTIAL THROMBOPLASTIN TIME 37.4 seconds 22.5-36.0 H (BEAKER) (test code = 760) [id number] 03:13:34 Test Item Value Reference Range Interpretation Comments MAGNESIUM (BEAKER) (test code = 1.8 mg/dL 1.6-2.6 627) Heel Reducer ID - [id number] 03:13:34 Test Item Value Reference Range Interpretation Comments PHOSPHORUS (BEAKER) (test code = 2.7 mg/dL 2.3-4.7 604) Heel Reducer ID - ADMINBASIC METABOLIC [id number] 03:13:33 Test Item Value Reference Range Interpretation [...] not appl icable for dialysis patien ts Heel Reducer ID - ADMINCBC W/PLT COUNT & AUTO [id number] 03:00:12 Test Item Value Reference Range Interpretation [...] PERCENT (BEAKER) (test code = 2801) POCT-GLUCOSE [id number] 18:12:43 Test Item Value Reference Range Interpretation Comments POC-GLUCOSE METER 272 mg/dL 70-110 H : [facility] ([facility]ER[facility] (test code = N[place] CAMPBE[place], 1538) [address]: Heel Reducer/Techni marissa ID = [id number] for Bea Galvez [id number] 17:45:02 Test Item Value Reference Range Interpretation Comments PARTIAL THROMBOPLASTIN TIME 101.3 seconds 22.5-36.0 H (BEAKER) (test code = 760) HIGH SENSITIVITY TROPONIN [id number] 12:58:56 Test Item Value Reference Range Interpretation Comments HIGH SENSITIVITY 97 pg/ml See_Comment H [Automated message] TROPONIN I (test code = The system which [id number]) generated this result transmitted ref erence range: <=35. Th e reference range was not used to int erpret this result as normal/abnormal . Heel Reducer ID - BVThe SLOPE HOIST OPERATOR STAT High Sensitivity Troponin-I results should be used in conjunctionwith other diagnostic information such as ECG, clinical observations and information, and patient symptoms to aid in the diagnosis of SC.POCT-GLUCOSE [id number] 12:24:20 Test Item Value Reference Range Interpretation Comments POC-GLUCOSE METER 414 mg/dL 70-110 HH : Notified RN/MD: ([facility]) (test code = TESTED AT [facility] 6720 1538) [place] [facility], [address]: Heel Reducer/Techni marissa ID = [id number] for Bea Galvez POCT-GLUCOSE [id number] 10:19:04 Test Item Value Reference Range Interpretation Comments POC-GLUCOSE METER 330 mg/dL 70-110 H : TESTED A T [facility] [address] [facility] (test code = NABOR Guardado [facility], 1538) [address]: Heel Reducer/Techni marissa ID = [id number] for Bea Galvez BASIC METABOLIC [id number] 07:21:44 Test Item Value Reference Range Interpretation [...] not appl icable for dialysis patien ts Heel Reducer ID - [id number] 07:17:35 Test Item Value Reference Range Interpretation Comments PHOSPHORUS (BEAKER) (test code = 4.0 mg/dL 2.3-4.7 604) Heel Reducer ID - [id number] 07:17:34 Test Item Value Reference Range Interpretation Comments MAGNESIUM (BEAKER) (test code = 1.8 mg/dL 1.6-2.6 627) Heel Reducer ID - [id number] 06:24:39 Test Item Value Reference Range Interpretation Comments PARTIAL THROMBOPLASTIN TIME 98.4 seconds 22.5-36.0 H (BEAKER) (test code = 760) CBC W/PLT COUNT & AUTO [id number] 06:15:48 Test Item Value Reference Range Interpretation [...] PERCENT (BEAKER) (test code = 2801) POCT-GLUCOSE [id number] 21:24:39 Test Item Value Reference Range Interpretation Comments POC-GLUCOSE METER 149 mg/dL 70-110 H : TESTED A T [facility] 6720 (BEAKER) (test code = [facility], [facility]) [address]: Heel Reducer/Techni marissa ID = [id number] for Ad ams, Valenciaetra POCT-GLUCOSE [id number] 19:00:05 Test Item Value Reference Range Interpretation Comments POC-GLUCOSE METER 85 mg/dL 70-110 : TESTED A T [facility] 6720 (BEAKER) (test code = [facility], [facility]) [address]: Heel Reducer/Techni marissa ID = [id number] for Nhan Hernandezuel POCT-GLUCOSE [id number] 13:26:18 Test Item Value Reference Range Interpretation Comments POC-GLUCOSE METER 220 mg/dL 70-110 H : TESTED A T [facility] 6720 (BEAKER) (test code = [facility], 153) [address]: Heel Reducer/Techni marissa ID = [id number] for [facility] Isidra fuller POCT-GLUCOSE [id number] 08:58:10 Test Item Value Reference Range Interpretation Comments POC-GLUCOSE METER 148 mg/dL 70-110 H : TESTED A T [facility] 6720 (BEAKER) (test code = [facility], [facility]) [address]: Heel Reducer/Techni marissa ID = [id number] for JAYA CORDERO [id number] 06:33:48 Test Item Value Reference Range Interpretation Comments MAGNESIUM (BEAKER) (test code = 1.9 mg/dL 1.6-2.6 627) Heel Reducer ID - [id number] 06:33:48 Test Item Value Reference Range Interpretation Comments PHOSPHORUS (BEAKER) (test code = 3.5 mg/dL 2.3-4.7 604) Heel Reducer ID - ADMINBASIC METABOLIC [id number] 06:33:47 Test Item Value Reference Range Interpretation [...] not appl icable for dialysis patien ts Heel Reducer ID - ADMINCBC W/PLT COUNT & AUTO [id number] 06:18:10 Test Item Value Reference Range Interpretation [...] 0.00-1.00 PERCENT (BEAKER) (test code = 2801) [id number] 06:10:42 Test Item Value Reference Range Interpretation Comments PARTIAL THROMBOPLASTIN TIME 75.2 seconds 22.5-36.0 H (BEAKER) (test code = 760) POCT-GLUCOSE [id number] 00:53:53 Test Item Value Reference Range Interpretation Comments POC-GLUCOSE METER 149 mg/dL 70-110 H : TESTED A T [facility] 6720 (BEAKER) (test code = [facility], [facility]8) [address]: Heel Reducer/Techni marissa ID = [id number] for Victorian-GRETA, FELIPE POCT-GLUCOSE [id number] 00:08:12 Test Item Value Reference Range Interpretation Comments POC-GLUCOSE METER 68 mg/dL 70-110 L : TESTED A T [facility] 6720 (BEAKER) (test code = [facility], [facility]8) [address]: Heel Reducer/Techni marissa ID = [id number] for Victorian-GRETA, FELIPE POCT-GLUCOSE [id number] 23:35:35 Test Item Value Reference Range Interpretation Comments POC-GLUCOSE METER 68 mg/dL 70-110 L : TESTED A T [facility] 6720 (BEAKER) (test code = [facility], [facility]8) [address]: Heel Reducer/Techni marissa ID = [id number] for Victorian-GRETA, FELIPE POCT-GLUCOSE [id number] 22:54:41 Test Item Value Reference Range Interpretation Comments POC-GLUCOSE METER 63 mg/dL 70-110 L : TESTED A T [facility] 6720 (BEAKER) (test code = [facility], [facility]8) [address]: Heel Reducer/Techni marissa ID = [id number] for Victorian-GRETA, FELIPE [id number] 22:08:59 Test Item Value Reference Range Interpretation Comments PARTIAL THROMBOPLASTIN TIME 70.8 seconds 22.5-36.0 H (BEAKER) (test code = 760) POCT-GLUCOSE [id number] 21:51:36 Test Item Value Reference Range Interpretation Comments POC-GLUCOSE METER 52 mg/dL 70-110 L : TESTED A T [facility] 6720 (BEAKER) (test code = [facility], [facility]8) [address]: Heel Reducer/Techni marissa ID = [id number] for FELIPE Elias POCT-GLUCOSE [id number] 21:21:23 Test Item Value Reference Range Interpretation Comments POC-GLUCOSE METER 41 mg/dL 70-110 L : TESTED A T [facility] 6720 (BEAKER) (test code = NABOR Guardado [facility], 1538) [address]: Heel Reducer/Techni marissa ID = [id number] for Jada, FELIPE POCT-GLUCOSE [id number] 18:29:30 Test Item Value Reference Range Interpretation Comments POC-GLUCOSE METER 178 mg/dL 70-110 H : TESTED A T [facility] 6720 (BEAKER) (test code = [facility], 1538) [address]: Heel Reducer/Techni marissa ID = [id number] for Ayla Parrish CT BRAIN WITHOUT IV [id number] 17:15:27 [facility] : 1965 Sex: MCT BRAIN WITHOUT IV [...] Signed By: Mavis Vinson01/30/2023 17:19 CDTWorkstation Name: [id number] 14:22:32 Test Item Value Reference Range Interpretation Comments PARTIAL THROMBOPLASTIN TIME 71.6 seconds 22.5-36.0 H (BEAKER) (test code = 760) POCT-GLUCOSE [id number] 13:51:50 Test Item Value Reference Range Interpretation Comments POC-GLUCOSE METER 233 mg/dL 70-110 H : TESTED A T [facility] 6720 (BEAKER) (test code = [facility], 1538) [address]: Heel Reducer/Techni marissa ID = [id number] for Ca tallero, Ayla POCT-GLUCOSE [id number] 09:06:42 Test Item Value Reference Range Interpretation Comments POC-GLUCOSE METER 382 mg/dL 70-110 H : TESTED A T [facility] 6720 (BEAKER) (test code = [facility], 1538) [address]: Heel Reducer/Techni marissa ID = [id number] for Ca tallero, Ayla [id number] 06:52:40 Test Item Value Reference Range Interpretation Comments PHOSPHORUS (BEAKER) (test code = 3.3 mg/dL 2.3-4.7 604) Heel Reducer ID - SOURAV WBASIC METABOLIC [id number] 06:52:39 Test Item Value Reference Range Interpretation [...] (test code = 697) EGFR (BEAKER) 83 Interpretatio n of eGFR (test code = mL/min/1.73 values Stage De scription 1092) sq m Result G1 Lcuy l or high >=90 G2 Mildly decreased [...] not appl icable for dialysis patien ts Heel Reducer ID - SOURAV [id number] 06:52:39 Test Item Value Reference Range Interpretation Comments MAGNESIUM (BEAKER) (test code = 2.0 mg/dL 1.6-2.6 627) Heel Reducer ID - SOURAV WCBC W/PLT COUNT & AUTO [id number] 06:36:48 Test Item Value Reference Range Interpretation [...] 0.00-1.00 PERCENT (BEAKER) (test code = 2801) [id number] 06:34:53 Test Item Value Reference Range Interpretation Comments PARTIAL THROMBOPLASTIN TIME 60.0 seconds 22.5-36.0 H (BEAKER) (test code = 760) POCT-GLUCOSE [id number] 22:13:50 Test Item Value Reference Range Interpretation Comments POC-GLUCOSE METER 265 mg/dL 70-110 H : TESTED A T [facility] 6720 (BEAKER) (test code = [employer] [facility], 153) [address]: Heel Reducer/Techni marissa ID = [id number] for Salvador Bob [id number] 21:56:56 Test Item Value Reference Range Interpretation Comments PARTIAL THROMBOPLASTIN TIME 55.8 seconds 22.5-36.0 H (BEAKER) (test code = 760) POCT-GLUCOSE [id number] 17:46:03 Test Item Value Reference Range Interpretation Comments POC-GLUCOSE METER 180 mg/dL 70-110 H : TESTED A T [facility] 6720 (BEAKER) (test code = [facility], 153) [address]: Heel Reducer/Techni marissa ID = [id number] for Um Stephanie iglesias [id number] 14:19:49 Test Item Value Reference Range Interpretation Comments PARTIAL THROMBOPLASTIN TIME 35.6 seconds 22.5-36.0 (BEAKER) (test code = 760) POCT-GLUCOSE [id number] 12:16:51 Test Item Value Reference Range Interpretation Comments POC-GLUCOSE METER 234 mg/dL 70-110 H : TESTED Rodrigo T [facility] 6720 (BEAKER) (test code = N[place], 1538) [address]: Heel Reducer/Techni marissa ID = [id number] for An Stefania do [id number] 11:48:00 Test Item Value Reference Range Interpretation Comments PHOSPHORUS (BEAKER) (test code = 3.6 mg/dL 2.3-4.7 604) Heel Reducer ID - [id number] 11:47:59 Test Item Value Reference Range Interpretation Comments MAGNESIUM (BEAKER) (test code = 2.0 mg/dL 1.6-2.6 627) Heel Reducer ID - BVBASIC METABOLIC [id number] 11:47:58 Test Item Value Reference Range Interpretation [...] not appl icable for dialysis patien ts Heel Reducer ID - [id number] 11:40:15 Test Item Value Reference Range Interpretation Comments PARTIAL THROMBOPLASTIN TIME 110.6 seconds 22.5-36.0 H (BEAKER) (test code = 760) [id number] 11:36:56 Test Item Value Reference Range Interpretation Comments PARTIAL THROMBOPLASTIN TIME 88.6 seconds 22.5-36.0 H (BEAKER) (test code = 760) PLATELET [id number] 11:34:40 Test Item Value Reference Range Interpretation Comments PLATELET COUNT (BEAKER) (test 530 K/CU MM 150-450 H code = 756) Heel Reducer ID - [id number] W/PLT COUNT & AUTO [id number] 11:34:38 Test Item Value Reference Range Interpretation [...] PERCENT (BEAKER) (test code = 2801) POCT-GLUCOSE [id number] 09:19:39 Test Item Value Reference Range Interpretation Comments POC-GLUCOSE METER 184 mg/dL 70-110 H : [facility] ([facility]AKER[facility] (test code = [facility], 1538) [address]: Heel Reducer/Techni marissa ID = [id number] for [facility], [place] [id number] 02:09:33 Test Item Value Reference Range Interpretation Comments PARTIAL THROMBOPLASTIN TIME 59.4 seconds 22.5-36.0 H (BEAKER) (test code = 760) POCT-GLUCOSE [id number] 21:11:15 Test Item Value Reference Range Interpretation Comments POC-GLUCOSE METER 82 mg/dL 70-110 : TESTED A T [facility] 6720 (BEAKER) (test code = [facility], 1538) [address]: Heel Reducer/Techni marissa ID = [id number] for ROBERTO ETSeptember [id number] 18:57:17 Test Item Value Reference Range Interpretation Comments PARTIAL THROMBOPLASTIN TIME 62.6 seconds 22.5-36.0 H (BEAKER) (test code = 760) POCT-GLUCOSE [id number] 18:27:57 Test Item Value Reference Range Interpretation Comments POC-GLUCOSE METER 174 mg/dL 70-110 H : TESTED A T [facility] 6720 (BEAKER) (test code = [facility], 1538) [address]: Heel Reducer/Techni marissa ID = [id number] for LL OYD, TIKEYA POCT-GLUCOSE [id number] 12:57:04 Test Item Value Reference Range Interpretation Comments POC-GLUCOSE METER 225 mg/dL 70-110 H : TESTED A T [facility] 6720 (BEAKER) (test code = [facility], 1538) 88991: Heel Reducer/Techni marissa ID = [id number] for LL OYD, TIKEYA [id number] 11:21:42 Test Item Value Reference Range Interpretation Comments PARTIAL THROMBOPLASTIN TIME 47.8 seconds 22.5-36.0 H (BEAKER) (test code = 760) POCT-GLUCOSE [id number] 09:06:14 Test Item Value Reference Range Interpretation Comments POC-GLUCOSE METER 299 mg/dL 70-110 H : TESTED A T [facility] 6720 (BEAKER) (test code = [facility], 1538) 10[address]: Heel Reducer/Techni marissa ID = [id number] for Karen chow (Divflt)Lina [id number] 04:29:10 Test Item Value Reference Range Interpretation Comments PHOSPHORUS (BEAKER) (test code = 4.9 mg/dL 2.3-4.7 H 604) Heel Reducer ID - MMBASIC METABOLIC [id number] 04:29:09 Test Item Value Reference Range Interpretation [...] not appl icable for dialysis patien ts Heel Reducer ID - [id number] 04:29:09 Test Item Value Reference Range Interpretation Comments MAGNESIUM (BEAKER) (test code = 2.3 mg/dL 1.6-2.6 627) Heel Reducer ID - [id number] 04:19:25 Test Item Value Reference Range Interpretation Comments PARTIAL THROMBOPLASTIN TIME 42.4 seconds 22.5-36.0 H (BEAKER) (test code = 760) CBC W/PLT COUNT & AUTO [id number] 04:09:26 Test Item Value Reference Range Interpretation [...] PERCENT (BEAKER) (test code = 2801) POCT-GLUCOSE [id number] 21:08:26 Test Item Value Reference Range Interpretation Comments POC-GLUCOSE METER 351 mg/dL 70-110 H : [facility] ([facility]ER[facility] (test code = [place] C[place], 1538) [address]: Heel Reducer/Techni marissa ID = [id number] for PRINCESS DIAMOND [id number] 19:53:58 Test Item Value Reference Range Interpretation Comments PARTIAL THROMBOPLASTIN TIME 32.0 seconds 22.5-36.0 (BEAKER) (test code = 760) XR FOOT 3 VIEWS [id number] 12:13:[address] [facility] : 1965 Sex: MCLINICAL HISTORY: Nonhealing great toe woundTECHNIQUE: 3 views of the left footCOMPARISON: NoneIMPRESSION:There is an ulceration at the medial aspect of the first interphalangealjoint. There are no discrete osseous lesions. There is no fracture ordislocation.Electronically Signed By: Delvis Carrillo01/27/2023 12:15 CDTWorkstation Name: [id number] METABOLIC [id number] 10:32:23 Test Item Value Reference Range Interpretation [...] not appl icable for dialysis patien ts Heel Reducer ID - [id number] 10:21:34 Test Item Value Reference Range Interpretation Comments MAGNESIUM (BEAKER) (test code = 2.2 mg/dL 1.6-2.6 627) Heel Reducer ID - [id number] 10:21:34 Test Item Value Reference Range Interpretation Comments PHOSPHORUS (BEAKER) (test code = 3.8 mg/dL 2.3-4.7 604) Heel Reducer ID - esauWOUND CULTURE + GRAM [id number] 10:19:47 Test Item Value Reference Range Interpretation Comments CULTURE (BEAKER) (test code <1+ Skin addy = 1095) GRAM STAIN RESULT (BEAKER) No WBC's Seen (test code = 1123) GRAM STAIN RESULT (BEAKER) No organisms seen (test code = 10062) CBC W/PLT COUNT & AUTO [id number] 09:31:13 Test Item Value Reference Range Interpretation [...] PERCENT (BEAKER) (test code = 2801) POCT-GLUCOSE [id number] 22:11:45 Test Item Value Reference Range Interpretation Comments POC-GLUCOSE METER 250 mg/dL 70-110 H : TESTED A T [facility] 67[address] [facility] (test code = [facility], 153) [address]: Heel Reducer/Techni marissa ID = [id number] for Aw a, Godswill POCT-GLUCOSE [id number] 16:57:17 Test Item Value Reference Range Interpretation Comments POC-GLUCOSE METER 345 mg/dL 70-110 H : TESTED A T [facility] 6720 (BEAKER) (test code = [facility], 153) [address]: Heel Reducer/Techni marissa ID = [id number] for ST MARY ALICE AMEZQUITA [id number] 14:59:11 Test Item Value Reference Range Interpretation Comments PARTIAL THROMBOPLASTIN TIME 35.3 seconds 22.5-36.0 (BEAKER) (test code = 760) CRYPTOCOCCAL [id number] 14:56:40 Test Item Value Reference Range Interpretation Comments CRYPTOCOCCAL ANTIGEN, SERUM Negative Negative, Interference (BEAKER) (test code = 1828) [id number] 13:12:40 Test Item Value Reference Range Interpretation Comments PARTIAL THROMBOPLASTIN TIME > seconds 22.5-36.0 HH ([facility]) (test code = 760) POCT-GLUCOSE [id number] 11:57:41 Test Item Value Reference Range Interpretation Comments POC-GLUCOSE METER 395 mg/dL 70-110 H : TESTED A T [facility] 67[address] [facility] (test code = [facility], 1538) [address]: Heel Reducer/Techni marissa ID = [id number] for MARY ALICE SIMPOSN POCT-GLUCOSE [id number] 07:24:42 Test Item Value Reference Range Interpretation Comments POC-GLUCOSE METER 237 mg/dL 70-110 H : TESTED A T [facility] 6720 ([facility]) (test code = [facility], 1538) [address]476: Heel Reducer/Techni marissa ID = [id number] for MARY ALICE SIMPSON HIV-1 ANTIGEN WITH HIV-1/2 [id number] 05:28:10 Test Item Value Reference Range Interpretation Comments HIV-1 ANTIGEN WITH HIV 1\\T\\2 Nonreactive Nonreactive ANTIBODY (2) (BEAKER) (test code = 2586) Heel Reducer ID - [id number] 05:25:15 Test Item Value Reference Range Interpretation Comments PHOSPHORUS (BEAKER) (test code = 3.9 mg/dL 2.3-4.7 604) Heel Reducer ID - ADMINBASIC METABOLIC [id number] 05:25:14 Test Item Value Reference Range Interpretation [...] not appl icable for dialysis patien ts Heel Reducer ID - [id number] 05:25:14 Test Item Value Reference Range Interpretation Comments MAGNESIUM (BEAKER) (test code = 2.2 mg/dL 1.6-2.6 627) Heel Reducer ID - ADMINCBC W/PLT COUNT & AUTO [id number] 05:11:50 Test Item Value Reference Range Interpretation [...] H PERCENT (BEAKER) (test code = 2801) [id number] 05:05:38 Test Item Value Reference Range Interpretation Comments PARTIAL THROMBOPLASTIN TIME 38.6 seconds 22.5-36.0 H (BEAKER) (test code = 760) [id number] 02:13:16 Test Item Value Reference Range Interpretation Comments PARTIAL THROMBOPLASTIN TIME 115.8 seconds 22.5-36.0 H (BEAKER) (test code = 760) POCT-GLUCOSE [id number] 01:16:40 Test Item Value Reference Range Interpretation Comments POC-GLUCOSE METER 235 mg/dL 70-110 H : TESTED A T [facility] 6720 (BEAKER) (test code = N[place], 1538) [address]: Heel Reducer/Techni marissa ID = [id number] for Vi nton, Juvent [id number] 18:25:41 Test Item Value Reference Range Interpretation Comments MAGNESIUM (BEAKER) (test code = 2.1 mg/dL 1.6-2.6 627) Heel Reducer ID - ADMINBASIC METABOLIC [id number] 18:25:40 Test Item Value Reference Range Interpretation [...] not appl icable for dialysis patien ts Heel Reducer ID - ADMINPOCT-GLUCOSE [id number] 17:33:39 Test Item Value Reference Range Interpretation Comments POC-GLUCOSE METER 260 mg/dL 70-110 H : TESTED A T [facility] 6720 (BEAKER) (test code = [facility] [place], 1538) [address]: Heel Reducer/Techni marissa ID = [id number] for Em Cordero POCT-GLUCOSE [id number] 14:10:29 Test Item Value Reference Range Interpretation Comments POC-GLUCOSE METER 266 mg/dL 70-110 H : TESTED A T [facility] 6720 (BEAKER) (test code = [facility], 153) [address]63: Heel Reducer/Techni marissa ID = [id number] for STEFANIA BUENROSTRO [id number] 12:45:20 Test Item Value Reference Range Interpretation Comments PARTIAL THROMBOPLASTIN TIME 86.4 seconds 22.5-36.0 H ([facility]) (test code = 760) BLOOD [id number] 12:00:32 Test Item Value Reference Range Interpretation Comments CULTURE (BEAKER) (test No growth in 5 days code = 1095) BLOOD [id number] 12:00:32 Test Item Value Reference Range Interpretation Comments CULTURE (BEAKER) (test No growth in 5 days code = 1095) The specimen volume collected for this blood culture was below the optimum (10 mL per bottle or 20 mL total). Use of lower volumes may adversely affect recovery and/or detection times of some organisms.POCT-GLUCOSE [id number] 11:36:06 Test Item Value Reference Range Interpretation Comments POC-GLUCOSE METER 444 mg/dL 70-110 HH : Notified RN/MD: ([facility]) (test code = TESTED AT [place] [address] 153) [facility], [address]: Heel Reducer/Techni marissa ID = [id number] for Em Cordero POCT-GLUCOSE [id number] 09:27:09 Test Item Value Reference Range Interpretation Comments POC-GLUCOSE METER 74 mg/dL 70-110 : TESTED A T [facility] 6720 ([facility]) (test code = [facility], 153) [address]: Heel Reducer/Techni marissa ID = [id number] for Johnathon buitragoEm chaudhry [id number] 06:25:20 Test Item Value Reference Range Interpretation Comments PARTIAL THROMBOPLASTIN TIME 53.5 seconds 22.5-36.0 H ([facility]) (test code = 760) POCT-GLUCOSE [id number] 05:54:50 Test Item Value Reference Range Interpretation Comments POC-GLUCOSE METER 164 mg/dL 70-110 H : TESTED A T [facility] 6720 ([facility]) (test code = [facility], 153) [address]: Heel Reducer/Techni marissa ID = [id number] for Kenneth Chowdary [id number] 04:30:15 Test Item Value Reference Range Interpretation Comments PARTIAL THROMBOPLASTIN TIME 130.7 seconds 22.5-36.0 H (BEAKER) (test code = 760) [id number] 04:26:33 Test Item Value Reference Range Interpretation Comments MAGNESIUM (BEAKER) (test code = 2.4 mg/dL 1.6-2.6 627) Heel Reducer ID - [id number] 04:26:33 Test Item Value Reference Range Interpretation Comments PHOSPHORUS (BEAKER) (test code = 4.2 mg/dL 2.3-4.7 604) Heel Reducer ID - MARCOBASIC METABOLIC [id number] 04:26:32 Test Item Value Reference Range Interpretation [...] rted eGFR is based on the CKD-EPI 1 equation t hat does not use a race coefficientEsti mated GFR is not as accur ate as Creatinine Zuri hylton in predicting glom erular filtration rate . Estimated GFR is not appl icable for dialysis patien ts Heel Reducer ID - MARCOCBC W/PLT COUNT & AUTO [id number] 04:11:09 Test Item Value Reference Range Interpretation [...] IMMATURE GRANULOCYTES-RELATIVE 1.10 % 0.00-1.00 H PERCENT ([facility]) (test code = 2801) POCT-GLUCOSE [id number] 00:04:56 Test Item Value Reference Range Interpretation Comments POC-GLUCOSE METER 169 mg/dL 70-110 H : [facility] (test code = [facility], 153) [address]: Heel Reducer/Techni marissa ID = [id number] for Kenneth Chowdary POCT-GLUCOSE [id number] 20:41:04 Test Item Value Reference Range Interpretation Comments POC-GLUCOSE METER 260 mg/dL 70-110 H : [facility] = [facility] [place], 153) [address]: Heel Reducer/Techni marissa ID = [id number] for ANNA BONILLA POCT-GLUCOSE [id number] 18:42:01 Test Item Value Reference Range Interpretation Comments POC-GLUCOSE METER 370 mg/dL 70-110 H : [facility]) (test code = [facility] [place], 153) [address]: Heel Reducer/Techni marissa ID = [id number] for Leonard elizondoEduardo hardyison HIGH SENSITIVITY TROPONIN [id number] 18:10:46 Test Item Value Reference Range Interpretation Comments HIGH SENSITIVITY 349 pg/ml See_Comment H [Automated message] TROPONIN I (test code The sy stem which = [id number]) generated this result transmitted ref erence range: <=35. Th e reference range was not used to int erpret this result as normal/abnormal . Heel Reducer ID - ADMINThe SLOPE HOIST OPERATOR STAT High Sensitivity Troponin-I results should be used in conjunction with other diagnostic information such as ECG, clinical observations and information, and patientsymptoms to aid in the diagnosis of SC. POCT-GLUCOSE [id number] 17:34:05 Test Item Value Reference Range Interpretation Comments POC-GLUCOSE METER 403 mg/dL 70-110 HH : Notified RN/MD: (SUNG) (test code = TESTED AT [facility] 6720 153) [facility], [address]: Heel Reducer/Techni marissa ID = [id number] for Leonard caroCarolin hardy [id number] 16:06:38 Test Item Value Reference Range Interpretation Comments MAGNESIUM (BEAKER) 2.1 mg/dL 1.6-2.6 Specimen slightly (test code = 627) hemolyzed Heel Reducer ID - MARCOBASIC METABOLIC [id number] 16:06:38 Test Item Value Reference Range Interpretation [...] not appl icable for dialysis patien ts Heel Reducer ID - HERMELINDAOHIGH SENSITIVITY TROPONIN [id number] 14:40:45 Test Item Value Reference Range Interpretation Comments HIGH SENSITIVITY 389 pg/ml See_Comment H [Automated message] TROPONIN I (test code The sy stem which = [id number]) generated this result transmitted ref erence range: <=35. Th e reference range was not used to int erpret this result as normal/abnormal . Heel Reducer ID - Norma SLOPE HOIST OPERATOR STAT High Sensitivity Troponin-I results should be used in conjunction with other diagnostic information such as ECG, clinical observations and information, and patientsymptoms to aid in the diagnosis of SC. VANCOMYCIN LEVEL, [id number] 12:48:11 Test Item Value Reference Range Interpretation Comments VANCOMYCIN RANDOM (BEAKER) (test 18.7 ug/mL code = 523) Reference Range: No NormalsOperator ID - MARCOCBC W/PLT COUNT & AUTO [id number] 11:28:07 Test Item Value Reference Range Interpretation [...] PERCENT (BEAKER) (test code = 2801) POCT-GLUCOSE [id number] 10:19:14 Test Item Value Reference Range Interpretation Comments POC-GLUCOSE METER 176 mg/dL 70-110 H : TESTED A T [facility] 6720 (BEAKER) (test code = [facility] [place], 1538) [address]: Heel Reducer/Techni marissa ID = [id number] for KARRIE KUMARZ, [place] POCT-GLUCOSE [id number] 08:00:30 Test Item Value Reference Range Interpretation Comments POC-GLUCOSE METER 87 mg/dL 70-110 : TESTED A T [facility] 6720 (BEAKER) (test code = [facility] [place], 1538) [address]: Heel Reducer/Techni marissa ID = [id number] for SRIDHAR ARZATE, DAY[place] POCT-GLUCOSE [id number] 06:52:26 Test Item Value Reference Range Interpretation Comments POC-GLUCOSE METER 120 mg/dL 70-110 H : TESTED A T [facility] 6720 (BEAKER) (test code = [facility] [place], 1538) [address]: Heel Reducer/Techni marissa ID = [id number] for Kenneth Chowdary [id number] 06:46:13 Test Item Value Reference Range Interpretation Comments PARTIAL THROMBOPLASTIN TIME 68.6 seconds 22.5-36.0 H (BEAKER) (test code = 760) [id number] 06:45:18 Test Item Value Reference Range Interpretation Comments PHOSPHORUS (BEAKER) (test code = 3.5 mg/dL 2.3-4.7 604) Heel Reducer ID - [id number] 06:45:17 Test Item Value Reference Range Interpretation Comments MAGNESIUM (BEAKER) (test code = 2.4 mg/dL 1.6-2.6 627) Heel Reducer ID - MARCOBASIC METABOLIC [id number] 06:45:16 Test Item Value Reference Range Interpretation [...] not appl icable for dialysis patien ts Heel Reducer ID - MARCOCBC (HEMOGRAM ONLY)2023-01-24 06:33:08 Test [...] 0-0 (BEAKER) (test code = 413) POCT-GLUCOSE [id number] 06:25:01 Test Item Value Reference Range Interpretation Comments POC-GLUCOSE METER 66 mg/dL 70-110 L : [facility] (test code = [facility] [place], 1538) [address]: Heel Reducer/Techni marissa ID = [id number] for Kenneth Blandon [id number] 00:38:38 Test Item Value Reference Range Interpretation Comments PARTIAL THROMBOPLASTIN TIME 71.0 seconds 22.5-36.0 H (BEAKER) (test code = 760) POCT-GLUCOSE [id number] 00:19:21 Test Item Value Reference Range Interpretation Comments POC-GLUCOSE METER 166 mg/dL 70-110 H : TESTED A T [facility] 6720 (BEAKER) (test code = [facility] [place], 1538) [address]: Heel Reducer/Techni marissa ID = [id number] for Kenneth Chowdary POCT-GLUCOSE [id number] 21:35:37 Test Item Value Reference Range Interpretation Comments POC-GLUCOSE METER 154 mg/dL 70-110 H : TESTED A T [facility] 6720 (BEAKER) (test code = [facility] [place], 1538) [address]: Heel Reducer/Techni marissa ID = [id number] for Kenneth Chowdary [id number] 16:48:00 Test Item Value Reference Range Interpretation Comments MAGNESIUM (BEAKER) (test code = 2.5 mg/dL 1.6-2.6 627) Heel Reducer ID - BSPOCT-GLUCOSE [id number] 16:35:19 Test Item Value Reference Range Interpretation Comments POC-GLUCOSE METER 101 mg/dL 70-110 : TESTED A T [facility] 6720 (BEAKER) (test code = [facility], 1538) [address]: Heel Reducer/Techni marissa ID = [id number] for Carolin Han BASIC METABOLIC [id number] 12:59:13 Test Item Value Reference Range Interpretation [...] not appl icable for dialysis patien ts Heel Reducer ID - ADMINPOCT-GLUCOSE [id number] 11:31:46 Test Item Value Reference Range Interpretation Comments POC-GLUCOSE METER 123 mg/dL 70-110 H : TESTED A T [facility] 6720 (BEAKER) (test code = [facility], 1538) [address]: Heel Reducer/Techni marissa ID = [id number] for DAY[place]NA HERNANDEZ POCT-GLUCOSE [id number] 08:14:22 Test Item Value Reference Range Interpretation Comments POC-GLUCOSE METER 206 mg/dL 70-110 H : TESTED A T [facility] 6720 (BEAKER) (test code = [place], 1538) [address]: Heel Reducer/Techni marissa ID = [id number] for DAYANNA HERNANDEZ [id number] 06:40:22 Test Item Value Reference Range Interpretation Comments MAGNESIUM (BEAKER) (test code = 2.5 mg/dL 1.6-2.6 627) Heel Reducer ID - [id number] 06:40:22 Test Item Value Reference Range Interpretation Comments PHOSPHORUS (BEAKER) (test code = 4.3 mg/dL 2.3-4.7 604) Heel Reducer ID - BSBASIC METABOLIC [id number] 06:40:21 Test Item Value Reference Range Interpretation [...] not appl icable for dialysis patien ts Heel Reducer ID - BSVANCOMYCIN LEVEL, [id number] 06:36:41 Test Item Value Reference Range Interpretation Comments VANCOMYCIN RANDOM (BEAKER) (test 17.6 ug/mL code = 523) Reference Range: No NormalsOperator ID - [id number] 06:34:40 Test Item Value Reference Range Interpretation [...] 0-0 (BEAKER) (test code = 413) POCT-GLUCOSE [id number] 05:42:18 Test Item Value Reference Range Interpretation Comments POC-GLUCOSE METER 169 mg/dL 70-110 H : TESTED A T [facility] 6720 (BEAKER) (test code = [facility], 1538) [address]: Heel Reducer/Techni marissa ID = [id number] for YE (V)MARY KAYPING POCT-GLUCOSE [id number] 22:15:28 Test Item Value Reference Range Interpretation Comments POC-GLUCOSE METER 187 mg/dL 70-110 H : [facility]) (test code = [facility] [place], 1538) [address]: Heel Reducer/Techni marissa ID = [id number] for YE (V)MARY KAYPING [id number] 21:21:50 Test Item Value Reference Range Interpretation Comments PARTIAL THROMBOPLASTIN TIME 57.8 seconds 22.5-36.0 H ([facility]) (test code = 760) POCT-GLUCOSE [id number] 18:52:22 Test Item Value Reference Range Interpretation Comments POC-GLUCOSE METER 239 mg/dL 70-110 H : [facility]) (test code = [facility] [place], 1538) [address]: Heel Reducer/Techni marissa ID = [id number] for Et Carolin breaux VANCOMYCIN LEVEL, [id number] 16:55:57 Test Item Value Reference Range Interpretation Comments VANCOMYCIN TROUGH ([facility]) (test 23.1 ug/mL 10.0-20.0 H code = 522) Heel Reducer ID - [id number] 16:34:31 Test Item Value Reference Range Interpretation Comments PARTIAL THROMBOPLASTIN TIME 72.1 seconds 22.5-36.0 H ([facility]) (test code = 760) POCT-GLUCOSE [id number] 16:28:17 Test Item Value Reference Range Interpretation Comments POC-GLUCOSE METER 249 mg/dL 70-110 H : [facility]) (test code = [facility] [place], 1538) [address]: Heel Reducer/Techni marissa ID = [id number] for Et namita Carolin SPUTUM CULTURE + GRAM [id number] 14:27:44 Test Item Value Reference Range Interpretation Comments CULTURE (BEAKER) (test No growth code = 1095) GRAM STAIN RESULT <1+ WBCs (BEAKER) (test code = 1123) GRAM STAIN RESULT <1+ gram positive cocci (BEAKER) (test code = in chains 55828) XR CHEST 1 VIEW PORTABLE / [id number] 14:24:59 [facility] : 1965 Sex: MXR [...] pneumonia, or pulmonary edema.Electronically Signed By: Keyur Johsnon01/22/2023 14:27 CDTWorkstation Name: [id number] 12:41:43 Test Item Value Reference Range Interpretation Comments MAGNESIUM (BEAKER) (test code = 2.3 mg/dL 1.6-2.6 627) Heel Reducer ID - MARCOBASIC METABOLIC [id number] 12:41:42 Test Item Value Reference Range Interpretation [...] 358) GLUCOSE RANDOM 263 mg/dL 70-105 H (SUNG) (test code = 652) CALCIUM (SUNG) 9.6 mg/dL 8.4-10.2 (test code = 697) EGFR (SUNG) 32 Interpretatio n of eGFR (test code [...] not appl icable for dialysis patien ts Heel Reducer ID - MARCOPOCT-GLUCOSE [id number] 12:27:53 Test Item Value Reference Range Interpretation Comments POC-GLUCOSE METER 270 mg/dL 70-110 H : TESTED A T [facility] 6720 (SUNG) (test code = [facility], 1538) [address]: Heel Reducer/Techni marissa ID = [id number] for Carolin Han XR CHEST 1 VIEW PORTABLE / [id number] 12:06:06 [facility]DANGELO GRIGGS : 1965 Sex: MXR CHEST 1 VIEW PORTABLE / BEDSIDEINDICATION: IABP placementCOMPARISON: Prior day's examTECHNIQUE: Portable frontal view(s) of the chest. FINDINGS: Support Lines and Devices: The right IJ [place]-Michael catheter was removed.Interval extubation and removal of the enteric tube. Otherwise, the lifesupport lines andtubes appear unchanged.The intra-aortic balloon pump tip overlies the aortopulmonary window.Lungs and pleura: Unchanged airspace and pleural opacities. Nopneumothorax identified.Heart and mediastinum: Stable contours. Stable surgical changes.Additional findings: None.IMPRESSION:Interval extubation and removal of the enteric tube.Electronically Signed By: Keyur Johnson01/22/2023 12:08 CDTWorkstation Name: [id number] 10:34:10 Test Item Value Reference Range Interpretation Comments PARTIAL THROMBOPLASTIN TIME 106.6 seconds 22.5-36.0 H (BEAKER) (test code = 760) POCT-GLUCOSE [id number] 09:15:00 Test Item Value Reference Range Interpretation Comments POC-GLUCOSE METER 170 mg/dL 70-110 H : TESTED A T [facility] 6720 (BEAKER) (test code = [facility] [place], 1538) [address]: Heel Reducer/Techni marissa ID = [id number] for Et zier, Carolin POCT-GLUCOSE [id number] 07:58:39 Test Item Value Reference Range Interpretation Comments POC-GLUCOSE METER 115 mg/dL 70-110 H : TESTED A T [facility] 6720 (BEAKER) (test code = [facility] [place], 1538) [address]: Heel Reducer/Techni marissa ID = [id number] for Et zier, Carolin POCT-GLUCOSE [id number] 06:52:35 Test Item Value Reference Range Interpretation Comments POC-GLUCOSE METER 85 mg/dL 70-110 : TESTED A T [facility] 6720 (BEAKER) (test code = [facility] [place], 1538) [address]: Heel Reducer/Techni marissa ID = [id number] for YE ( V), WEIGODWIN BASIC METABOLIC [id number] 04:43:46 Test Item Value Reference Range Interpretation [...] not appl icable for dialysis patien ts Heel Reducer ID - [id number] 04:43:45 Test Item Value Reference Range Interpretation Comments MAGNESIUM (BEAKER) 2.4 mg/dL 1.6-2.6 Specimen slightly (test code = 627) hemolyzed Heel Reducer ID - [id number] 04:43:45 Test Item Value Reference Range Interpretation Comments PHOSPHORUS (BEAKER) 4.1 mg/dL 2.3-4.7 Specimen slightly (test code = 604) hemolyzed Heel Reducer ID - [id number] 04:29:46 Test Item Value Reference Range Interpretation Comments PARTIAL THROMBOPLASTIN TIME 70.7 seconds 22.5-36.0 H (BEAKER) (test code = 760) CALCIUM, [id number] 04:24:43 Test Item Value Reference Range Interpretation [...] 0-0 (BEAKER) (test code = 413) POCT-GLUCOSE [id number] 04:20:17 Test Item Value Reference Range Interpretation Comments POC-GLUCOSE METER 126 mg/dL 70-110 H : TESTED A T [facility] 6720 (BEAKER) (test code = [facility], 153) [address]: Heel Reducer/Techni marissa ID = [id number] for Ad ams, Kimetra POCT-GLUCOSE [id number] 03:46:36 Test Item Value Reference Range Interpretation Comments POC-GLUCOSE METER 145 mg/dL 70-110 H : TESTED A T [facility] 6720 (BEAKER) (test code = [facility], 153) [address]: Heel Reducer/Techni marissa ID = [id number] for YE (V), WEIPING BLOOD [id number] 03:00:23 Test Item Value Reference Range Interpretation Comments CULTURE (BEAKER) (test No growth in 5 days code = 1095) BLOOD [id number] 03:00:23 Test Item Value Reference Range Interpretation Comments CULTURE (BEAKER) (test No growth in 5 days code = 1095) The specimen volume collected for this blood culture was below the optimum (10 mL per bottle or 20 mL total). Use of lower volumes may adversely affect recovery and/or detection times of some organisms.CT ABDOMEN/PELVIS WITHOUT IV [id number] 02:25:01 [facility] : 1965 Sex: MTECHNIQUE: [...] Signed By: Chilango Braga01/22/2023 02:27 CDTWorkstation Name: [id number] CHEST WITHOUT IV CONTRAST 2023-01-22 02:25:01 [facility] : 1965 Sex: MTECHNIQUE: CT [...] Signed By: Chilango Braga01/22/2023 02:27 CDTWorkstation Name: [id number] 01:10:15 Test Item Value Reference Range Interpretation Comments POC-GLUCOSE METER 181 mg/dL 70-110 H : TESTED A T [facility] 6720 ([employer]) (test code = [facility] [place], 1538) [address]: Heel Reducer/Techni marissa ID = [id number] for YE (V), WEIPING POCT-GLUCOSE [id number] 23:41:55 Test Item Value Reference Range Interpretation Comments POC-GLUCOSE METER 225 mg/dL 70-110 H : TESTED A T [facility] 6720 ([employer]) (test code = [facility], 1538) [address]: Heel Reducer/Techni marissa ID = [id number] for YE (V), WEIPING POCT-GLUCOSE [id number] 22:35:17 Test Item Value Reference Range Interpretation Comments POC-GLUCOSE METER 252 mg/dL 70-110 H : TESTED A T [facility] 6720 ([employer]) (test code = [facility] [place], 1538) 10[address]: Heel Reducer/Techni marissa ID = [id number] for YE (V)CHAU POCT-GLUCOSE [id number] 21:23:42 Test Item Value Reference Range Interpretation Comments POC-GLUCOSE METER 326 mg/dL 70-110 H : TESTED A T [facility] 6720 (BEAKER) (test code = [facility], 1538) [address]: Heel Reducer/Techni marissa ID = [id number] for YE (V), WEIPING BASIC METABOLIC [id number] 20:47:16 Test Item Value Reference Range Interpretation [...] not appl icable for dialysis patien ts Heel Reducer ID - [id number] 20:44:44 Test Item Value Reference Range Interpretation Comments MAGNESIUM (BEAKER) (test code = 2.3 mg/dL 1.6-2.6 627) Heel Reducer ID - ADMINPOCT-GLUCOSE [id number] 20:32:33 Test Item Value Reference Range Interpretation Comments POC-GLUCOSE METER 412 mg/dL 70-110 HH : TESTED A T [place] [address] ([facility]) (test code = [facility], 153) [address]: Heel Reducer/Techni marissa ID = [id number] for YE (V), WEIPING POCT-GLUCOSE [id number] 18:46:43 Test Item Value Reference Range Interpretation Comments POC-GLUCOSE METER 458 mg/dL 70-110 HH : Notified RN/MD: ([facility]) (test code = TESTED AT [place] [address] 153) [facility], [address]: Heel Reducer/Techni marissa ID = [id number] for [place] NGERGEORGETTEN POCT-GLUCOSE [id number] 17:50:28 Test Item Value Reference Range Interpretation Comments POC-GLUCOSE METER 487 mg/dL 70-110 HH : Notified RN/MD: ([facility]) (test code = TESTED AT [place] [address] 153) [facility], [address]: Heel Reducer/Techni marissa ID = [id number] for Of futt, Tawney [id number] 16:44:58 Test Item Value Reference Range Interpretation Comments GLUCOSE RANDOM ([facility]) (test code 580 mg/dL 70-105 HH = 652) Heel Reducer ID - ADMINPOCT-GLUCOSE [id number] 16:10:51 Test Item Value Reference Range Interpretation Comments POC-GLUCOSE METER > mg/dL 70-110 HH : Notified RN/MD: Verify ([facility]) (test code = w/ Lab Draw: TESTED AT 153) [address], [address]: Heel Reducer/Techni marissa ID = [id number] for Offu tt, Tawney POCT-GLUCOSE [id number] 14:52:46 Test Item Value Reference Range Interpretation Comments POC-GLUCOSE METER 452 mg/dL 70-110 HH : TESTED A T [place] [address] ([facility]) (test code = [facility], 153) [address]: Heel Reducer/Techni marissa ID = [id number] for Of futt, Tawney CALCIUM, [id number] 14:28:28 Test Item Value Reference Range Interpretation Comments CALCIUM IONIZED (BEAKER) (test 1.07 mmol/L 1.12-1.27 L code = 698) PH, BLOOD (BEAKER) (test code = 7.33 1810) BASIC METABOLIC [id number] 14:25:15 Test Item Value Reference Range Interpretation [...] not appl icable for dialysis patien ts Heel Reducer ID - [id number] 14:22:52 Test Item Value Reference Range Interpretation Comments MAGNESIUM (BEAKER) (test code = 2.1 mg/dL 1.6-2.6 627) Heel Reducer ID - MMPOCT-GLUCOSE [id number] 11:40:36 Test Item Value Reference Range Interpretation Comments POC-GLUCOSE METER 185 mg/dL 70-110 H : TESTED A T [facility] 6720 (BEAKER) (test code = [facility] [place], 1538) [address]: Heel Reducer/Techni marissa ID = [id number] for ROSANNE CHRISTIANSON XR CHEST 1 VIEW PORTABLE / [id number] 11:04:33 [facility] : 1965 Sex: MXR [...] prior exam.2. Hazy airspace opacities in the lowerlungs bilaterally, which mayrepresent atelectasis, pneumonia, or pulmonary edema.Electronically Signed By: Keyur Johnson01/21/2023 11:06 CDTWorkstation Name: [id number] 10:14:48 Test Item Value Reference Range Interpretation Comments POC-GLUCOSE METER 115 mg/dL 70-110 H : [facility] ([employer]) (test code = [facility], 1538) [address]: Heel Reducer/Techni marissa ID = [id number] for Khalif Murguia POCT-GLUCOSE [id number] 09:43:55 Test Item Value Reference Range Interpretation Comments POC-GLUCOSE METER 92 mg/dL 70-110 : [facility] ([employer]) (test code = [facility], 1538) [address]: Heel Reducer/Techni marissa ID = [id number] for Offu ttTaywchristina CREATINE KINASE (CK)2023-01-21 08:09:32 Test Item Value Reference Range Interpretation Comments CREATINE KINASE TOTAL (BEAKER) (test 5484 U/L 29-200 H code = 380) Heel Reducer ID - MMOperator ID - MMLACTIC ACID, [id number] 07:50:37 Test Item Value Reference Range Interpretation Comments LACTATE BLOOD VENOUS 0.72 mmol/L 0.50-2.00 Specime n slightly (2) (BEAKER) (test hemolyzed code = 2872) Heel Reducer ID - MMPOCT-GLUCOSE [id number] 07:39:20 Test Item Value Reference Range Interpretation Comments POC-GLUCOSE METER 107 mg/dL 70-110 : TESTED A T [facility] 6720 (BEAKER) (test code = [facility], 1538) [address]: Heel Reducer/Techni marissa ID = [id number] for Of futt, Khalif POCT-GLUCOSE [id number] 06:31:11 Test Item Value Reference Range Interpretation Comments POC-GLUCOSE METER 110 mg/dL 70-110 : TESTED A T [facility] 6720 (BEAKER) (test code = [facility], 1538) [address]: Heel Reducer/Techni marissa ID = [id number] for YE (V), WEIPING OXYGEN SATURATION, [id number] 04:48:43 Test Item Value Reference Range Interpretation Comments O2 SATURATION (MEASURED) (BEAKER) 80.3 % (test code = 1455) BLOOD GAS, [id number] 04:09:56 Test Item Value Reference Range Interpretation [...] (BEAKER) (test code = 1819) 40.0 POCT-GLUCOSE [id number] 04:07:31 Test Item Value Reference Range Interpretation Comments POC-GLUCOSE METER 143 mg/dL 70-110 H : TESTED A T [facility] 6720 (BEAKER) (test code = [facility], 1538) [address]: Heel Reducer/Techni marissa ID = [id number] for YE (V), CHAU BASIC METABOLIC [id number] 04:05:26 Test Item Value Reference Range Interpretation [...] not appl icable for dialysis patien ts Heel Reducer ID - [id number] 03:55:04 Test Item Value Reference Range Interpretation Comments PHOSPHORUS (BEAKER) 4.9 mg/dL 2.3-4.7 H Specimen slightly (test code = 604) hemolyzed Heel Reducer ID - [id number] 03:55:03 Test Item Value Reference Range Interpretation Comments MAGNESIUM (BEAKER) 2.4 mg/dL 1.6-2.6 Specimen slightly (test code = 627) hemolyzed Heel Reducer ID - [id number] 03:39:35 Test Item Value Reference Range Interpretation [...] 0-0 (BEAKER) (test code = 413) POCT-GLUCOSE [id number] 03:00:05 Test Item Value Reference Range Interpretation Comments POC-GLUCOSE METER 155 mg/dL 70-110 H : TESTED A T [facility] 6720 (BEAKER) (test code = [facility], 1538) [address]: Heel Reducer/Techni marissa ID = [id number] for YE (V), WEIPING POCT-GLUCOSE [id number] 01:46:08 Test Item Value Reference Range Interpretation Comments POC-GLUCOSE METER 187 mg/dL 70-110 H : TESTED A T [facility] 6720 (BEAKER) (test code = [facility]) [address]: Heel Reducer/Techni marissa ID = [id number] for YE (V), WEIPING POCT-GLUCOSE [id number] 00:09:39 Test Item Value Reference Range Interpretation Comments POC-GLUCOSE METER 186 mg/dL 70-110 H : TESTED A T [facility] 6720 (BEAKER) (test code = [facility]) [address]: Heel Reducer/Techni marissa ID = [id number] for YE (V), WEIPING POCT-GLUCOSE [id number] 22:33:59 Test Item Value Reference Range Interpretation Comments POC-GLUCOSE METER 181 mg/dL 70-110 H : TESTED A T [facility] (BEAKER) (test code = [facility], [facility]) [address]: Heel Reducer/Techni marissa ID = [id number] for YE (V), WEIPING [id number] 20:45:08 Test Item Value Reference Range Interpretation Comments PARTIAL THROMBOPLASTIN TIME 74.8 seconds 22.5-36.0 H (BEAKER) (test code = 760) POCT-GLUCOSE [id number] 19:56:20 Test Item Value Reference Range Interpretation Comments POC-GLUCOSE METER 169 mg/dL 70-110 H : TESTED A T [facility] (BEAKER) (test code = [facility], [facility]) [address]: Heel Reducer/Techni marissa ID = [id number] for YE (V), WEIPING POCT-GLUCOSE [id number] 19:08:49 Test Item Value Reference Range Interpretation Comments POC-GLUCOSE METER 75 mg/dL 70-110 : TESTED A T [facility] 67[facility] (BEAKER) (test code = [facility], [facility]) [address]: Heel Reducer/Techni marissa ID = [id number] for Offu tt, [place] POCT-GLUCOSE [id number] 18:20:12 Test Item Value Reference Range Interpretation Comments POC-GLUCOSE METER 120 mg/dL 70-110 H : TESTED A T [facility] 67[facility] (BEAKER) (test code = [facility] [address] [place], 1538) [address]: Heel Reducer/Techni marissa ID = [id number] for Of futtTaywchristina POCT-GLUCOSE [id number] 17:25:16 Test Item Value Reference Range Interpretation Comments POC-GLUCOSE METER 203 mg/dL 70-110 H : TESTED A T [facility] 6720 (BEAKER) (test code = NABOR Guardado [place], 1538) 78377: Heel Reducer/Techni marissa ID = [id number] for Of futt, Taywney [id number] 17:15:55 Test Item Value Reference Range Interpretation Comments MAGNESIUM (BEAKER) (test code = 2.3 mg/dL 1.6-2.6 627) Heel Reducer ID - ADMINBASIC METABOLIC [id number] 17:15:54 Test Item Value Reference Range Interpretation [...] not appl icable for dialysis patien ts Heel Reducer ID - ADMINCALCIUM, [id number] 16:39:11 Test Item Value Reference Range Interpretation Comments CALCIUM IONIZED (BEAKER) (test 1.03 mmol/L 1.12-1.27 L code = 698) PH, BLOOD (BEAKER) (test code = 7.39 1810) POCT-GLUCOSE [id number] 16:34:44 Test Item Value Reference Range Interpretation Comments POC-GLUCOSE METER 156 mg/dL 70-110 H : TESTED A T [facility] 6720 (BEAKER) (test code = [facility], 1538) 82619: Heel Reducer/Techni marissa ID = [id number] for BE LLADAMARISAUKAREN [id number] 14:51:15 Test Item Value Reference Range Interpretation Comments PROCALCITONIN (BEAKER) (test code 1.39 ng/mL <0.05 H = 3036) SEPSIS RISK (ng/mL)Low: 0.05-0.50Intermediate: 0.51-2.00High: >=2.01LACTIC ACID, [id number] 13:53:22 Test Item Value Reference Range Interpretation Comments LACTATE BLOOD VENOUS 0.78 mmol/L 0.50-2.00 Specime n slightly (2) (BEAKER) (test hemolyzed code = 2872) Heel Reducer ID - ADMINPOCT-GLUCOSE [id number] 13:52:39 Test Item Value Reference Range Interpretation Comments POC-GLUCOSE METER 140 mg/dL 70-110 H : TESTED A T [facility] 6720 (BEAKER) (test code = [facility], 1538) 98054: Heel Reducer/Techni marissa ID = [id number] for Of Khalif holguin [id number] 13:48:22 Test Item Value Reference Range Interpretation Comments PARTIAL THROMBOPLASTIN TIME 56.9 seconds 22.5-36.0 H (BEAKER) (test code = 760) BASIC METABOLIC [id number] 13:44:44 Test Item Value Reference Range Interpretation [...] not appl icable for dialysis patien ts Heel Reducer ID - ADMINXR CHEST 1 VIEW PORTABLE / [id number] 12:31:21 [facility] : 1965 Sex: MXR CHEST 1 VIEW PORTABLE / BEDSIDEINDICATION: intubatedCOMPARISON: Prior day's examTECHNIQUE: Portable frontal view(s) of the chest. FINDINGS: Support Lines and Devices: The nasogastric tube was removed. Thefeedingtube courses into the stomach and outside the dnyrl-wx-jdvo. Otherwise,the life support linesand tubes appear unchanged. The intra-aorticballoon pump tip overlies the inferior aspect of the aortic knob. Lungs and pleura: Unchanged airspace and pleural opacities. Nopneumothorax identified.Heartand mediastinum: Stable contours. Stable surgical changes.Additional findings: None.IMPRESSION:1. The nasogastric tube was removed. The feeding tube courses into thestomach and outside the axemu-tf-gjsh .2. Hazy airspace opacities in the lower lungs bilaterally, which mayrepresent atelectasis, pneumonia, or pulmonary edema.Electronically Signed By: Keyur Johnson01/20/2023 12:33 CDTWorkstation Name: [id number] GAS, ARTERIAL 2023-01-20 12:19:21 Test Item Value [...] (BEAKER) (test code = 1819) 40.0 POCT-GLUCOSE [id number] 12:14:18 Test Item Value Reference Range Interpretation Comments POC-GLUCOSE METER 144 mg/dL 70-110 H : TESTED A T [facility] 6720 (BEAKER) (test code = [facility], 1538) 97287: Heel Reducer/Techni marissa ID = [id number] for BE LL, BEAULA URINALYSIS [id number] 11:19:21 Test Item Value Reference Range Interpretation Comments RBC UA (BEAKER) (test code = 519) 0 /HPF WBC UA (BEAKER) (test code = 520) 0 /HPF MUCUS (BEAKER) (test code = 1574) Rare HYALINE CASTS (BEAKER) (test code = 24 /LPF 514) GRANULAR CASTS (BEAKER) (test code = 53 /LPF 515) Heel Reducer ID - techURINALYSIS WITH MICROSCOPIC IF [id number] 11:16:22 Test Item Value Reference Range Interpretation [...] = 463) SOURCE(BEAKER) (test code = 2795) Heel Reducer ID - [auto]Heel Reducer ID - techPOCT-GLUCOSE [id number] 11:16:06 Test Item Value Reference Range Interpretation Comments POC-GLUCOSE METER 143 mg/dL 70-110 H : TESTED A T [facility] 6720 (BEAKER) (test code = [facility], 1538) 16459: Heel Reducer/Techni marissa ID = [id number] for Of futt, Tawney POCT-GLUCOSE [id number] 09:47:33 Test Item Value Reference Range Interpretation Comments POC-GLUCOSE METER 172 mg/dL 70-110 H : TESTED A T [facility] 6720 (BEAKER) (test code = [facility], 1538) 57731: Heel Reducer/Techni marissa ID = [id number] for Of futt, Tawney POCT-GLUCOSE [id number] 08:44:31 Test Item Value Reference Range Interpretation Comments POC-GLUCOSE METER 173 mg/dL 70-110 H : TESTED A T [facility] 6720 (BEAKER) (test code = [facility], 1538) 75934: Heel Reducer/Techni marissa ID = [id number] for Khalif Murguia POCT-GLUCOSE [id number] 07:40:52 Test Item Value Reference Range Interpretation Comments POC-GLUCOSE METER 167 mg/dL 70-110 H : TESTED A T [facility] 6720 (BEAKER) (test code = [facility], 1538) 89004: Heel Reducer/Techni marissa ID = [id number] for ADAMARIS LLADAMARISAULA POCT-GLUCOSE [id number] 06:39:04 Test Item Value Reference Range Interpretation Comments POC-GLUCOSE METER 166 mg/dL 70-110 H : TESTED A T [facility] 6720 (BEAKER) (test code = [facility], 1538) 98341: Heel Reducer/Techni marissa ID = [id number] for YE (V), WEIPING POCT-GLUCOSE [id number] 05:32:07 Test Item Value Reference Range Interpretation Comments POC-GLUCOSE METER 160 mg/dL 70-110 H : TESTED A T [facility] 6720 (BEAKER) (test code = [facility], 1538) 64614: Heel Reducer/Techni marissa ID = [id number] for YE (V), WEIPING POCT-GLUCOSE [id number] 05:29:14 Test Item Value Reference Range Interpretation Comments POC-GLUCOSE METER 159 mg/dL 70-110 H : TESTED A T [facility] 6720 (BEAKER) (test code = [facility], 1538) 04456: Heel Reducer/Techni marissa ID = [id number] for YE (V), WEIPING [id number] 05:16:17 Test Item Value Reference Range Interpretation Comments MAGNESIUM (BEAKER) (test code = 2.4 mg/dL 1.6-2.6 627) Heel Reducer ID - EMBASIC METABOLIC [id number] 05:16:16 Test Item Value Reference Range Interpretation [...] not appl icable for dialysis patien ts Heel Reducer ID - [id number] 05:16:16 Test Item Value Reference Range Interpretation Comments PHOSPHORUS (BEAKER) (test code = 5.4 mg/dL 2.3-4.7 H 604) Heel Reducer ID - [id number] 04:53:49 Test Item Value Reference Range Interpretation [...] (BEAKER) (test code = 413) BLOOD GAS, [id number] 04:37:07 Test Item Value Reference Range Interpretation [...] (test code = 1819) 40.0 OXYGEN SATURATION, [id number] 04:36:16 Test Item Value Reference Range Interpretation Comments O2 SATURATION (MEASURED) (BEAKER) 79.1 % (test code = 1455) POCT-GLUCOSE [id number] 03:46:04 Test Item Value Reference Range Interpretation Comments POC-GLUCOSE METER 88 mg/dL 70-110 : TESTED A T [facility] 6720 (BEAKER) (test code = N[facility] [place], 1538) 81632: Heel Reducer/Techni marissa ID = [id number] for YE ( V), WEIPING POCT-GLUCOSE [id number] 02:37:49 Test Item Value Reference Range Interpretation Comments POC-GLUCOSE METER 101 mg/dL 70-110 : TESTED A T [facility] 6720 (BEAKER) (test code = [facility], 1538) 78653: Heel Reducer/Techni marissa ID = [id number] for YE (V), WEIPING POCT-GLUCOSE [id number] 00:11:01 Test Item Value Reference Range Interpretation Comments POC-GLUCOSE METER 132 mg/dL 70-110 H : TESTED A T [facility] 6720 (SUNG) (test code = [place], 1538) 04731: Heel Reducer/Techni marissa ID = [id number] for YE (V), WEIPING XR ABDOMEN/KUB 1 VIEW [id number] 22:09:21 [facility] : 1965 Sex: MTECHNIQUE: XR [...] Signed By: Glenn Felton01/19/2023 22:11 CDTWorkstation Name: [id number] POCT-GLUCOSE [id number] 21:57:35 Test Item Value Reference Range Interpretation Comments POC-GLUCOSE METER 139 mg/dL 70-110 H : TESTED A T [facility] 6720 (SUNG) (test code = [place], 1538) 37548: Heel Reducer/Techni marissa ID = [id number] for YE (V), WEIPING [id number] 20:36:59 Test Item Value Reference Range Interpretation Comments MAGNESIUM (BEAKER) (test code = 2.5 mg/dL 1.6-2.6 627) Heel Reducer ID - BSBASIC METABOLIC [id number] 20:36:58 Test Item Value Reference Range Interpretation [...] not appl icable for dialysis patien ts Heel Reducer ID - BSPOCT-GLUCOSE [id number] 20:35:55 Test Item Value Reference Range Interpretation Comments POC-GLUCOSE METER 146 mg/dL 70-110 H : TESTED A T [facility] (BEAKER) (test code = NABOR Guardado [place], 1538) 67707: Heel Reducer/Techni marsisa ID = [id number] for YE (V), WEIPING XR ABDOMEN/KUB 1 VIEW [id number] 19:53:31 [facility] : 1965 Sex: MTECHNIQUE: XR [...] Signed By: Glenn Felton01/19/2023 19:55 CDTWorkstation Name: [id number] ABDOMEN/KUB 1 VIEW [id number] 19:28:57[facility] : 1965 Sex: MTECHNIQUE: XR [...] Signed By: Glenn Felton01/19/2023 19:31 CDTWorkstation Name: [id number] 18:01:31 Test Item Value Reference Range Interpretation Comments POC-GLUCOSE METER 155 mg/dL 70-110 H : TESTED A T [facility] 6720 (BEAKER) (test code = [facility], 1538) 80398: Heel Reducer/Techni marissa ID = [id number] for Placido Floresa POCT-GLUCOSE [id number] 16:41:40 Test Item Value Reference Range Interpretation Comments POC-GLUCOSE METER 182 mg/dL 70-110 H : TESTED A T [facility] 6720 (BEAKER) (test code = [facility], 1538) 95709: Heel Reducer/Techni marissa ID = [id number] for Em Cordero PERIPHERAL BLOOD SMEAR - PATHOLOGIST [id number] 16:05:10 Test Item Value Reference Range Interpretation Comments PERIPHERAL SMR REVIEW Cell counts confirmed. (BEAKER) (test code = Normochromic normocytic 2640) anemia with no significant increase in schistocytes. [id number] Rodo Booker, (BEAKER) (test code = M.D. 1459) POCT-GLUCOSE [id number] 15:40:51 Test Item Value Reference Range Interpretation Comments POC-GLUCOSE METER 196 mg/dL 70-110 H : TESTED A T [facility] 6720 (BEAKER) (test code = [facility], 1538) 37048: Heel Reducer/Techni marissa ID = [id number] for Al sharad, Jaja POCT-GLUCOSE [id number] 13:25:06 Test Item Value Reference Range Interpretation Comments POC-GLUCOSE METER 234 mg/dL 70-110 H : TESTED A T [facility] 6720 (BEAKER) (test code = [facility], 1538) 21306: Heel Reducer/Techni marissa ID = [id number] for Al conedo, Jaja XR ABDOMEN/KUB 1 VIEW [id number] 12:55:01 [facility] : 1965 Sex: MINDICATION: abd [...] Signed By: Keyur Johnson01/19/2023 12:57 CDTWorkstation Name: [id number] CHEST 1 VIEW PORTABLE / [id number] 12:55:01 [facility] : 1965 Sex: MINDICATION: abd [...] Signed By: Keyur Johnson01/19/2023 12:57 CDTWorkstation Name: [id number] METABOLIC [id number] 12:40:18 Test Item Value Reference Range Interpretation [...] not appl icable for dialysis patien ts Heel Reducer ID - [id number] 12:39:11 Test Item Value Reference Range Interpretation Comments PHOSPHORUS (BEAKER) (test code = 5.6 mg/dL 2.3-4.7 H 604) Heel Reducer ID - [id number] 12:39:10 Test Item Value Reference Range Interpretation Comments MAGNESIUM (BEAKER) (test code = 2.5 mg/dL 1.6-2.6 627) Heel Reducer ID - AAHAMIDCALCIUM, [id number] 12:25:40 Test Item Value Reference Range Interpretation Comments CALCIUM IONIZED (BEAKER) (test 1.11 mmol/L 1.12-1.27 L code = 698) PH, BLOOD (BEAKER) (test code = 7.39 1810) POCT-GLUCOSE [id number] 12:15:50 Test Item Value Reference Range Interpretation Comments POC-GLUCOSE METER 260 mg/dL 70-110 H : TESTED A T [facility] 6720 (BEAKER) (test code = [facility], 1538) 11739: Heel Reducer/Techni marissa ID = [id number] for Jaja Flores MRSA [id number] 11:29:28 Test Item Value Reference Range Interpretation Comments CULTURE (BEAKER) (test code No MRSA isolated = 1095) POCT-GLUCOSE [id number] 11:18:27 Test Item Value Reference Range Interpretation Comments POC-GLUCOSE METER 294 mg/dL 70-110 H : TESTED A T [facility] 6720 (BEAKER) (test code = [facility], 1538) 01985: Heel Reducer/Techni marissa ID = [id number] for Em Cordero SPUTUM CULTURE + GRAM [id number] 10:34:07 Test Item Value Reference Range Interpretation Comments CULTURE (BEAKER) (test code No growth = 1095) GRAM STAIN RESULT (BEAKER) 2+ WBCs (test code = 1123) GRAM STAIN RESULT (BEAKER) No organisms seen (test code = 43355) POCT-GLUCOSE [id number] 10:23:09 Test Item Value Reference Range Interpretation Comments POC-GLUCOSE METER 317 mg/dL 70-110 H : TESTED A T [facility] 6720 (BEAKER) (test code = [place], 1538) 86410: Heel Reducer/Techni marissa ID = [id number] for Jaja Flores RENAL [id number] 09:38:04 [facility] : 1965 Sex: M RENAL COMPLETECLINICAL HISTORY: ELEVATED CREATININECOMPARISON: None.TECHNIQUE: Real time grayscale and color Doppler imaging of the kidneysand urinary bladder was performed.FINDINGS:Right kidney:Length = 10.9 x 5.6 x 3.8 cm cmCortical thickness: NormalEchogenicity: NormalCollecting system: No hydronephrosisOther findings: NoneLeft kidney:Length = 10.6 x 5.5 x 6.2 cmCortical thickness: NormalEchogenicity: NormalCollecting system: No hydronephrosisOther findings: NoneUrinary bladder: Decompressed with a Chung catheterIMPRESSION:Normal renal ultrasound. No hydronephrosis.Electronically Signed By: Aimee Agustin01/19/2023 09:40 CDTWorkstation Name: [id number] METER 2023-01-19 08:01:32 Test Item Value Reference Range Interpretation Comments POC-GLUCOSE METER 286 mg/dL 70-110 H : [facility] T [facility] (test code = NABOR Guardado [facility], 1538) 61938: Heel Reducer/Techni marissa ID = [id number] for Em Cordero XR CHEST 1 VIEW PORTABLE / [id number] 07:58:38 [facility] : 1965 Sex: MXR CHEST 1 VIEW PORTABLE / BEDSIDEINDICATION: intubatedCOMPARISON: Prior day's examTECHNIQUE: Portable frontal view(s) of the chest. FINDINGS: Support Lines and Devices: Stable. Lungs and pleura: Unchanged airspace and pleural opacities. Nopneumothorax identified.Heart and mediastinum: Stable contours. Stable surgical changes.Additional findings: None.IMPRESSION:1. No significant change from prior exam.2.Bilateral airspace and interstitial opacities, which may representatelectasis, pneumonia or pulmonary edema.Electronically Signed By: Keyur Johnson01/19/2023 08:00 CDTWorkstation Name: [id number] METER 2023-01-19 06:52:22 Test Item Value Reference Range Interpretation Comments POC-GLUCOSE METER 128 mg/dL 70-110 H : TESTED A T [facility] 6720 (SUNG) (test code = NABOR Guardado [facility], 1538) 61791: Heel Reducer/Techni marissa ID = [id number] for YOSI URENA (CELLAVISION MANUAL DIFF)2023-01-19 06:21:31 [...] CONCENTRATION Adequate (CELLAVISION)(BEAKER) (test code = 3438) Heel Reducer ID - Yulissa comments: Slide comments:CBC W/PLT COUNT & AUTO [id number] 06:21:30 Test Item Value Reference Range Interpretation [...] (BEAKER) (test code = 413) VANCOMYCIN LEVEL, [id number] 05:55:26 Test Item Value Reference Range Interpretation Comments VANCOMYCIN RANDOM (BEAKER) (test 31.9 ug/mL code = 523) Reference Range: No NormalsBASIC METABOLIC [id number] 05:40:35 Test Item Value Reference Range Interpretation [...] not appl icable for dialysis patien ts Heel Reducer ID - AAHAMIDCREATINE KINASE (CK)2023-01-19 05:40:34 Test Item Value Reference Range Interpretation Comments CREATINE KINASE TOTAL (BEAKER) (test 7531 U/L 29-200 H code = 380) Heel Reducer ID - AAHAMIDOperator ID - AAHAMIDHEPATIC FUNCTION [id number] 05:37:20 Test Item Value Reference Range Interpretation [...] (test code = 42 U/L 6-55 347) Heel Reducer ID - AAHAMIDLACTATE DEHYDROGENASE (LDH)2023-01-19 05:37:20 Test Item Value Reference Range Interpretation Comments LACTATE DEHYDROGENASE (BEAKER) (test 818 U/L 125-220 H code = 635) Heel Reducer ID - [id number] 05:37:19 Test Item Value Reference Range Interpretation Comments PHOSPHORUS (BEAKER) (test code = 5.4 mg/dL 2.3-4.7 H 604) Heel Reducer ID - [id number] 04:56:02 Test Item Value Reference Range Interpretation Comments PARTIAL THROMBOPLASTIN TIME 72.5 seconds 22.5-36.0 H (BEAKER) (test code = 760) BLOOD GAS, [id number] 04:40:34 Test Item Value Reference Range Interpretation [...] (test code = 1819) 40.0 OXYGEN SATURATION, [id number] 04:39:54 Test Item Value Reference Range Interpretation Comments O2 SATURATION (MEASURED) (BEAKER) 78.5 % (test code = 1455) POCT-GLUCOSE [id number] 03:35:29 Test Item Value Reference Range Interpretation Comments POC-GLUCOSE METER 111 mg/dL 70-110 H : TESTED A T [facility] 6720 (BEAKER) (test code = [facility], 1538) 71149: Heel Reducer/Techni marissa ID = [id number] for YOSI URENA POCT-GLUCOSE [id number] 01:50:08 Test Item Value Reference Range Interpretation Comments POC-GLUCOSE METER 150 mg/dL 70-110 H : TESTED A T [facility] 6720 (BEAKER) (test code = [facility], 1538) 12661: Heel Reducer/Techni marissa ID = [id number] for YOSI URENA [id number] 00:14:32 Test Item Value Reference Range Interpretation Comments PHOSPHORUS (BEAKER) (test code = 5.9 mg/dL 2.3-4.7 H 604) POCT-GLUCOSE [id number] 00:14:16 Test Item Value Reference Range Interpretation Comments POC-GLUCOSE METER 194 mg/dL 70-110 H : TESTED A T [facility] 6720 (BEAKER) (test code = [facility], 1538) 06172: Heel Reducer/Techni marissa ID = [id number] for Kenneth Chowdary BASIC METABOLIC [id number] 23:47:59 Test Item Value Reference Range Interpretation [...] 125-220 H code = 635) LACTIC ACID, [id number] 23:27:03 Test Item Value Reference Range Interpretation Comments LACTATE BLOOD ARTERIAL (2) 0.7 mmol/L 0.5-2.0 (BEAKER) (test code = 2874) BLOOD GAS, [id number] 23:13:46 Test Item Value Reference Range Interpretation [...] (BEAKER) (test code = 1819) 40.0 POCT-GLUCOSE [id number] 22:59:29 Test Item Value Reference Range Interpretation Comments POC-GLUCOSE METER 240 mg/dL 70-110 H : TESTED A T [facility] 6720 (BEAKER) (test code = [facility], 1538) 34418: Heel Reducer/Techni marissa ID = [id number] for YOSI URENA POCT-GLUCOSE [id number] 22:23:18 Test Item Value Reference Range Interpretation Comments POC-GLUCOSE METER 225 mg/dL 70-110 H : TESTED A T [facility] 6720 (BEAKER) (test code = [facility], 1538) 65690: Heel Reducer/Techni marissa ID = [id number] for YOSI URENA [id number] 20:56:21 Test Item Value Reference Range Interpretation Comments PARTIAL THROMBOPLASTIN TIME 69.1 seconds 22.5-36.0 H (BEAKER) (test code = 760) POCT-GLUCOSE [id number] 20:48:04 Test Item Value Reference Range Interpretation Comments POC-GLUCOSE METER 163 mg/dL 70-110 H : TESTED A T [facility] 6720 (BEAKER) (test code = [facility], 1538) 66069: Heel Reducer/Techni marissa ID = [id number] for YOSI URENA BASIC METABOLIC [id number] 20:47:41 Test Item Value Reference Range Interpretation [...] icable for dialysis patien ts HEPATIC FUNCTION [id number] 20:47:41 Test Item Value Reference Range Interpretation [...] = 38 U/L 6-55 347) OXYGEN SATURATION, [id number] 20:35:39 Test Item Value Reference Range Interpretation Comments O2 SATURATION (MEASURED) (BEAKER) 78.5 % (test code = 1455) BLOOD GAS, [id number] 20:09:46 Test Item Value Reference Range Interpretation [...] (BEAKER) (test code = 1819) 40.0 POCT-GLUCOSE [id number] 19:53:59 Test Item Value Reference Range Interpretation Comments POC-GLUCOSE METER 112 mg/dL 70-110 H : TESTED A T [facility] 6720 (BEAKER) (test code = [facility], 153) 14478: Heel Reducer/Techni marissa ID = [id number] for YOSI URENA POCT-GLUCOSE [id number] 19:17:52 Test Item Value Reference Range Interpretation Comments POC-GLUCOSE METER 87 mg/dL 70-110 : TESTED A T [facility] 6720 (BEAKER) (test code = [facility], 1538) 03261: Heel Reducer/Techni marissa ID = [id number] for Jesk e, Evelin POCT-GLUCOSE [id number] 18:57:22 Test Item Value Reference Range Interpretation Comments POC-GLUCOSE METER 77 mg/dL 70-110 : TESTED A T [facility] 6720 (BEAKER) (test code = [facility], 1538) 36355: Heel Reducer/Techni marissa ID = [id number] for Jesk e, Evelin POCT-GLUCOSE [id number] 18:39:59 Test Item Value Reference Range Interpretation Comments POC-GLUCOSE METER 87 mg/dL 70-110 : TESTED A T [facility] 6720 (BEAKER) (test code = [facility], 1538) 38956: Heel Reducer/Techni marissa ID = [id number] for NANCY SANCHEZ POCT-GLUCOSE [id number] 18:38:33 Test Item Value Reference Range Interpretation Comments POC-GLUCOSE METER 30 mg/dL 70-110 LL : TESTED A T [facility] ([facility]) (test code = NABOR Guardado [facility], 153) 51139: Heel Reducer/Techni marissa ID = [id number] for Johnathon nagy, Em POCT-GLUCOSE [id number] 18:22:58 Test Item Value Reference Range Interpretation Comments POC-GLUCOSE METER 36 mg/dL 70-110 LL : Notified RN/MD: TESTED ([facility]) (test code = AT [facility] 6720 [facility] 1537) [facility], 770 30: Heel Reducer/Techni marissa ID = [id number] for Johnathon nagy, Em POTASSIUM, RANDOM [id number] 18:09:33 Test Item Value Reference Range Interpretation Comments POTASSIUM URINE (BEAKER) (test 33.4 meq/L code = 195) Reference Range: No NormalsSODIUM, RANDOM [id number] 18:07:17 Test Item Value Reference Range Interpretation Comments SODIUM URINE (BEAKER) (test code = 59 meq/L 243) Reference Range: No NormalsCREATININE, RANDOM [id number] 18:07:16 Test Item Value Reference Range Interpretation Comments CREATININE URINE (BEAKER) (test 71.5 mg/dL code = 375) Reference Range: No NormalsOSMOLALITY, [id number] 18:04:20 Test Item Value Reference Range Interpretation Comments OSMOLALITY URINE 319 mOsm/kg See_Comment [Automated message] (BEAKER) (test code = The sy stem which 614) generated this result transmitted ref erence range: 50-1,200 mOsm/kg. The reference range was not used to int erpret this result as normal/abnormal . POCT-GLUCOSE [id number] 17:23:31 Test Item Value Reference Range Interpretation Comments POC-GLUCOSE METER 166 mg/dL 70-110 H : [facility] T [facility] (test code = [facility] Debby [facility], 1537) [id number]: Heel Reducer/Techni marissa ID = [id number] for Evelin Ridley POCT-GLUCOSE [id number] 16:10:47 Test Item Value Reference Range Interpretation Comments POC-GLUCOSE METER 184 mg/dL 70-110 H : TESTED A T [facility] 67[facility] (BEAKER) (test code = [facility], 1538) 38297: Heel Reducer/Techni marissa ID = [id number] for Evelin Ridley POCT-GLUCOSE [id number] 14:21:02 Test Item Value Reference Range Interpretation Comments POC-GLUCOSE METER 124 mg/dL 70-110 H : TESTED A T [facility] 6720 (BEAKER) (test code = [facility], 1538) 54564: Heel Reducer/Techni marissa ID = [id number] for NANCY GIRON [id number] 14:12:37 Test Item Value Reference Range Interpretation Comments PARTIAL THROMBOPLASTIN TIME 33.2 seconds 22.5-36.0 (BEAKER) (test code = 760) VANCOMYCIN LEVEL, [id number] 13:24:38 Test Item Value Reference Range Interpretation Comments VANCOMYCIN TROUGH (BEAKER) (test 37.2 ug/mL 10.0-20.0 HH code = 522) POCT-GLUCOSE [id number] 13:03:15 Test Item Value Reference Range Interpretation Comments POC-GLUCOSE METER 251 mg/dL 70-110 H : TESTED A T [facility] 6720 (BEAKER) (test code = [facility], 1538) 34003: Heel Reducer/Techni marissa ID = [id number] for Evelin Ridley BASIC METABOLIC [id number] 12:12:42 Test Item Value Reference Range Interpretation [...] not appl icable for dialysis patien ts Heel Reducer ID - AAHAMIDBLOOD GAS, [id number] 12:07:33 Test Item Value Reference Range Interpretation [...] (test code = 1819) 40.0 BLOOD GAS, [id number] 11:54:34 Test Item Value Reference Range Interpretation [...] mmol/L 21-29 = 388) BASE EXCESS ARTERIAL ([facility]) 0.0 mmol/L -2.0-3.0 (test code = 387) PATIENT TEMPERATURE ([facility]) (test 38.0 code = 1818) FIO2 ([facility]) (test code = 1819) 40.0 POCT-GLUCOSE [id number] 11:54:13 Test Item Value Reference Range Interpretation Comments POC-GLUCOSE METER 209 mg/dL 70-110 H : [facility]) (test code = [facility], 153) [address]: Heel Reducer/Techni marissa ID = [id number] for Rey pierce, Evelin POCT-GLUCOSE [id number] 09:42:45 Test Item Value Reference Range Interpretation Comments POC-GLUCOSE METER 145 mg/dL 70-110 H : [facility]) (test code = [facility], 153) [address]: Heel Reducer/Techni marissa ID = [id number] for Rey pierce, Evelin POCT-GLUCOSE [id number] 08:52:36 Test Item Value Reference Range Interpretation Comments POC-GLUCOSE METER 134 mg/dL 70-110 H : [facility]) (test code = [facility], 153) [address]: Heel Reducer/Techni marissa ID = [id number] for Blanca Ridleylin POCT-GLUCOSE [id number] 07:15:37 Test Item Value Reference Range Interpretation Comments POC-GLUCOSE METER 138 mg/dL 70-110 H : Notified RN/MD: ([facility]) (test code = TESTED AT [place] [address] 153) [facility], [address]: Heel Reducer/Techni marissa ID = [id number] for Tiff Stevens [id number] 06:51:04 Test Item Value Reference Range Interpretation Comments PARTIAL THROMBOPLASTIN TIME 33.1 seconds 22.5-36.0 ([facility]) (test code = 760) POCT-GLUCOSE [id number] 06:16:58 Test Item Value Reference Range Interpretation Comments POC-GLUCOSE METER 152 mg/dL 70-110 H : Notified RN/MD: ([facility]) (test code = TESTED AT [place] [address] 153) [facility], [address]: Heel Reducer/Techni marissa ID = [id number] for Tiff Stevens POCT-GLUCOSE [id number] 05:19:41 Test Item Value Reference Range Interpretation Comments POC-GLUCOSE METER 170 mg/dL 70-110 H : Notified RN/MD: (BEAKER) (test code = TESTED AT [facility] 6720 1538) [facility], [address]: Heel Reducer/Techni marissa ID = [id number] for Tiff Stevens [id number] 05:12:47 Test Item Value Reference Range Interpretation Comments MAGNESIUM (BEAKER) (test code = 2.5 mg/dL 1.6-2.6 627) Heel Reducer ID - SOURAV WBASIC METABOLIC [id number] 05:12:46 Test Item Value Reference Range Interpretation [...] not appl icable for dialysis patien ts Heel Reducer ID - SOURAV WCBC W/PLT COUNT & AUTO [id number] 04:53:59 Test Item Value Reference Range Interpretation [...] (BEAKER) (test code = 2801) OXYGEN SATURATION, [id number] 04:29:48 Test Item Value Reference Range Interpretation Comments O2 SATURATION (MEASURED) (BEAKER) 67.8 % (test code = 1455) POCT-GLUCOSE [id number] 04:21:37 Test Item Value Reference Range Interpretation Comments POC-GLUCOSE METER 164 mg/dL 70-110 H : TESTED A T [facility] 6720 (BEAKER) ([facility], 1538) [address]: Heel Reducer/Techni marissa ID = [id number] for Tiff Stevens CALCIUM, [id number] 04:15:57 Test Item Value Reference Range Interpretation Comments CALCIUM IONIZED (BEAKER) (test 1.07 mmol/L 1.12-1.27 L code = 698) PH, BLOOD (BEAKER) (test code = 7.50 1810) BLOOD GAS, [id number] 04:15:56 Test Item Value Reference Range Interpretation [...] (BEAKER) (test code = 1819) 40.0 POCT-GLUCOSE [id number] 02:09:53 Test Item Value Reference Range Interpretation Comments POC-GLUCOSE METER 120 mg/dL 70-110 H : Notified RN/MD: (BEAKER) (test code = TESTED AT [facility] 6720 1538) [facility], [address]: Heel Reducer/Techni marissa ID = [id number] for Tiff Stevens POCT-GLUCOSE [id number] 02:03:11 Test Item Value Reference Range Interpretation Comments POC-GLUCOSE METER 113 mg/dL 70-110 H : TESTED A T [facility] 6720 (BEAKER) (test code = [facility], 1538) [address]: Heel Reducer/Techni marissa ID = [id number] for Tiff Stevens [id number] 01:23:14 Test Item Value Reference Range Interpretation Comments MAGNESIUM (BEAKER) (test code = 2.3 mg/dL 1.6-2.6 627) Heel Reducer ID - [id number] 01:23:14 Test Item Value Reference Range Interpretation Comments POTASSIUM (BEAKER) (test code = 3.7 meq/L 3.5-5.1 379) Heel Reducer ID - ADMINPOCT-GLUCOSE [id number] 00:57:12 Test Item Value Reference Range Interpretation Comments POC-GLUCOSE METER 108 mg/dL 70-110 : TESTED A T [facility] 6720 (BEAKER) (test code = [facility], 1538) [address]: Heel Reducer/Techni marissa ID = [id number] for Tiff Stevens [id number] 00:26:45 Test Item Value Reference Range Interpretation Comments PARTIAL THROMBOPLASTIN TIME 31.7 seconds 22.5-36.0 (BEAKER) (test code = 760) POCT-GLUCOSE [id number] 00:09:28 Test Item Value Reference Range Interpretation Comments POC-GLUCOSE METER 103 mg/dL 70-110 : TESTED A T [facility] 6720 (BEAKER) (test code = [facility], 1538) [address]: Heel Reducer/Techni marissa ID = [id number] for Tiff Stevens POCT-GLUCOSE [id number] 22:09:33 Test Item Value Reference Range Interpretation Comments POC-GLUCOSE METER 105 mg/dL 70-110 : TESTED A T [facility] 6720 (BEAKER) (test code = [facility], 1538) [address]: Heel Reducer/Techni marissa ID = [id number] for Tiff Stevens POCT-GLUCOSE [id number] 21:11:39 Test Item Value Reference Range Interpretation Comments POC-GLUCOSE METER 122 mg/dL 70-110 H : Notified RN/MD: (BEAKER) (test code = TESTED AT [facility] 6720 1538) [place], [address]: Heel Reducer/Techni marissa ID = [id number] for Tiff Stevens POCT-GLUCOSE [id number] 20:12:20 Test Item Value Reference Range Interpretation Comments POC-GLUCOSE METER 154 mg/dL 70-110 H : TESTED A T [facility] 6720 (BEAKER) (test code = NABOR Guardado [facility], 1538) [address]: Heel Reducer/Techni marissa ID = [id number] for Tiff Stevens [id number] 20:09:57 Test Item Value Reference Range Interpretation Comments PHOSPHORUS (BEAKER) (test code = 1.9 mg/dL 2.3-4.7 L 604) Heel Reducer ID - [id number] 20:09:56 Test Item Value Reference Range Interpretation Comments MAGNESIUM (BEAKER) (test code = 1.9 mg/dL 1.6-2.6 627) Heel Reducer ID - ADMINCALCIUM, [id number] 19:53:13 Test Item Value Reference Range Interpretation Comments CALCIUM IONIZED (BEAKER) (test 1.10 mmol/L 1.12-1.27 L code = 698) PH, BLOOD (BEAKER) (test code = 7.57 1810) BLOOD GAS, [id number] 19:53:12 Test Item Value Reference Range Interpretation [...] (test code = 1819) 40.0 OXYGEN SATURATION, [id number] 19:27:15 Test Item Value Reference Range Interpretation Comments O2 SATURATION (MEASURED) (BEAKER) 80.7 % (test code = 1455) BASIC METABOLIC [id number] 19:23:37 Test Item Value Reference Range Interpretation [...] not appl icable for dialysis patien ts Heel Reducer ID - ADMINBLOOD GAS, [id number] 19:12:28 Test Item Value Reference Range Interpretation [...] 0-0 (BEAKER) (test code = 413) POCT-GLUCOSE [id number] 18:54:13 Test Item Value Reference Range Interpretation Comments POC-GLUCOSE METER 201 mg/dL 70-110 H : TESTED A T [facility] 6720 (BEAKER) (test code = [facility], 1538) [address]: Heel Reducer/Techni marissa ID = [id number] for Carmen Guo POCT-GLUCOSE [id number] 17:53:08 Test Item Value Reference Range Interpretation Comments POC-GLUCOSE METER 236 mg/dL 70-110 H : TESTED A T [facility] 6720 (BEAKER) (test code = [facility] [place], 1538) [address]: Heel Reducer/Techni marissa ID = [id number] for Em Cordero [id number] 17:43:40 Test Item Value Reference Range Interpretation Comments PARTIAL THROMBOPLASTIN TIME 32.3 seconds 22.5-36.0 (SUNG) (test code = 760) POCT-GLUCOSE [id number] 16:38:23 Test Item Value Reference Range Interpretation Comments POC-GLUCOSE METER 275 mg/dL 70-110 H : TESTED A T [facility] 6720 ([facility]G) (test code = [place], 1538) [address]: Heel Reducer/Techni marissa ID = [id number] for Em Cordero XR CHEST 1 VIEW PORTABLE / [id number] 16:03:57 [facility] 1965 Sex: MCHESTONE VIEWHISTORY: Transvenous pacer [...] Signed By: Chriss Sanchez01/17/2023 16:06 CDTWorkstation Name: [id number] 15:39:39 Test Item Value Reference Range Interpretation Comments POC-GLUCOSE METER 280 mg/dL 70-110 H : TESTED A T [facility] 6720 (BEAKER) (test code = [place], 1538) [address]: Heel Reducer/Techni marissa ID = [id number] for Fr Carmen nova HEPATIC FUNCTION [id number] 14:25:00 Test Item Value Reference Range Interpretation [...] (test code = 32 U/L 6-55 347) Heel Reducer ID Adebayo ROSENBERG WBLOOD GAS, [id number] 14:04:59 Test Item Value Reference Range Interpretation [...] FIO2 (BEAKER) (test code = 1819) 50.0 [id number] 13:30:50 Test Item Value Reference Range Interpretation Comments GLUCOSE RANDOM (BEAKER) (test code 294 mg/dL 70-105 H = 652) Heel Reducer ID Adebayo ROSENBERG [id number] 13:30:49 Test Item Value Reference Range Interpretation Comments POTASSIUM (BEAKER) 4.0 meq/L 3.5-5.1 Specimen slightly (test code = 379) hemolyzed Heel Reducer ID - CHET WPOCT-GLUCOSE [id number] 12:56:30 Test Item Value Reference Range Interpretation Comments POC-GLUCOSE METER 279 mg/dL 70-110 H : TESTED A T [facility] 6720 (BEAKER) (test code = [place], 1538) [address]: Heel Reducer/Techni marissa ID = [id number] for Em Cordero BASIC METABOLIC [id number] 11:59:39 Test Item Value Reference Range Interpretation [...] not appl icable for dialysis patien ts Heel Reducer ID Adebayo ROSENBERG WCBC (HEMOGRAM ONLY)2023-01-17 11:40:56 Test Item Value [...] (BEAKER) (test code = 413) BASIC METABOLIC [id number] 11:18:31 Test Item Value Reference Range Interpretation [...] not appl icable for dialysis patien ts Heel Reducer ID - CHET WLACTIC ACID, [id number] 11:15:50 Test Item Value Reference Range Interpretation Comments LACTATE BLOOD ARTERIAL (2) 1.4 mmol/L 0.5-2.0 (BEAKER) (test code = 2874) Heel Reducer ID - CHET [id number] 11:12:26 Test Item Value Reference Range Interpretation Comments PARTIAL THROMBOPLASTIN TIME 134.4 seconds 22.5-36.0 H (BEAKER) (test code = 760) BLOOD GAS, [id number] 11:04:45 Test Item Value Reference Range Interpretation [...] 60.0 XR CHEST 1 VIEW PORTABLE / [id number] 11:04:24 [facility] : 1965 Sex: MCHESTONE VIEWHISTORY: IntubationCOMPARISON: 01/17/2023 0213 hoursFINDINGS:Single portable AP examination ofthe chest was performed. Endotracheal tube tip is 4.5 cm proximal to the carlos.Intra-aortic balloonpump marker projects at the level of the aorticarch.Right jugular pulmonary arterial catheter is in the region of the mainpulmonary artery. Nasogastric tube tip is in the region of the stomach.Bilateral pulmonary opacities, left greater the right, are withoutappreciable change. No pleural effusions orpneumothorax are identified.The heart is at the upper limits of normal in size.Electronically SignedBy: Chriss Daniel01/17/2023 11:06 CDTWorkstation Name: [id number] SATURATION, [id number] 11:02:34 Test Item Value Reference Range Interpretation Comments O2 SATURATION (MEASURED) ([employer]) 85.6 % (test code = 1455) POCT-GLUCOSE [id number] 10:25:37 Test Item Value Reference Range Interpretation Comments POC-GLUCOSE METER 298 mg/dL 70-110 H : TESTED A T [facility] 6720 ([facility]) (test code = NABOR Guardado [facility], 1538) [address]: Heel Reducer/Techni marissa ID = [id number] for Carmen Guo HEMOGLOBIN [id number] 09:20:08 Test Item Value Reference Range Interpretation Comments HEMOGLOBIN A1C 7.8 % See_Comment H [Automated m essage] ELECTROPHORESIS ([facility]) The system which (test code = 3811) generated this result transmitted ref erence range: <=5.6%. The reference range was not used to int erpret this result as normal/abnormal . "The A1c is measured using a NGSP-certified method. HbA1c value equal to or greater than 6.5% as thediagnosis cutoff for diabetes. An HbA1c value of 5.7- 6.4% indicates increased risk for diabetes (prediabetes)."Heel Reducer ID - ADM [id number] 08:09:40 Test Item Value Reference Range Interpretation Comments ACTIVATED CLOTTING TIME 257 sec : 74 -137 seconds, (BEAKER) (test code = Baseli ne: TESTED AT 441) [facility] 6720 [facility], [facility] 30: Heel Reducer/Techni marissa ID = [id number] for Bea Nascimento lt [id number] 07:56:16 Test Item Value Reference Range Interpretation Comments ACTIVATED CLOTTING TIME 233 sec : 74 -137 seconds, (BEAKER) (test code = Baseli ne: TESTED AT 441) [facility] 6720 [facility], 770 30: Heel Reducer/Techni marissa ID = [id number] for Bea Nascimento lt HIGH SENSITIVITY TROPONIN [id number] 07:19:08 Test Item Value Reference Range Interpretation Comments HIGH SENSITIVITY > pg/ml See_Comment HH [Automated message] TROPONIN I (test code = The system which [id number]) generated this result transmitted ref erence range: <=35. Th e reference range was not used to interpr et this result as normal/abnormal . Heel Reducer ID - SOURAV WThe SLOPE HOIST OPERATOR STAT High Sensitivity Troponin-I results should be used in conjunction with other diagnostic information such as ECG, clinical observations and information, and patient symptoms to aid in the diagnosis of SC.Heel Reducer ID - SOURAV WBLOOD GAS, [id number] 05:27:03 Test Item Value Reference Range Interpretation [...] = 1819) 70.0 XR ABDOMEN/KUB 1 VIEW [id number] 03:23:27 [facility] : 1965 Sex: MEXAM/TECHNIQUE: XR ABDOMEN/KUB 1 VIEW PORTABLEINDICATION: Enteric tube placement verificationCOMPARISON: None.FINDINGS: Gastric tube and sidehole terminate in the expected location of thestomach. Nonspecificbowel gas pattern. No acute osseous process.IMPRESSION:Gastric tube and sidehole terminate in the expected location of thestomach.Electronically Signed By: Dg Oneil01/17/2023 03:25 CDTWorkstationName: [id number] CHEST 1 VIEW PORTABLE / [id number] 03:22:47[facility] : 1965 Sex: MEXAM/TECHNIQUE: Single [...] Signed By: Dg Oneil01/17/2023 03:24 CDTWorkstation Name: [id number] URINALYSIS W/ REFLEX URINE [id number] 02:49:04 Test Item Value Reference Range Interpretation [...] /LPF = 514) SOURCE(BEAKER) (test code = 1182) Heel Reducer ID - [auto]Heel Reducer ID - techHIGH SENSITIVITY TROPONIN [id number] 02:48:53 Test Item Value Reference Range Interpretation Comments HIGH SENSITIVITY 80018 pg/ml See_Comment HH [Automated message] TROPONIN I (test code The sy stem which = [id number]) generated this result transmitted ref erence range: <=35. Th e reference range was not used to int erpret this result as normal/abnormal . Heel Reducer ID - ADMINThe SLOPE HOIST OPERATOR STAT High Sensitivity Troponin-I results should be used in conjunction with other diagnostic information such as ECG, clinical observations and information, and patientsymptoms to aid in the diagnosis of SC.Heel Reducer ID - ADMINCOMPREHENSIVE METABOLIC [id number] 02:40:09 Test Item Value Reference Range Interpretation [...] not appl icable for dialysis patien ts Heel Reducer ID - ADMINPOCT-GLUCOSE [id number] 02:39:52 Test Item Value Reference Range Interpretation Comments POC-GLUCOSE METER 373 mg/dL 70-110 H : Notified RN/MD: (BEAKER) (test code = TESTED AT [facility] 9802 1135) [place], [address]: Heel Reducer/Techni marissa ID = [id number] for RI PPLE, ANNA TSH/FREE T4 IF [id number] 02:38:29 Test Item Value Reference Range Interpretation Comments THYROID STIMULATING HORMONE 2.492 uIU/mL 0.350-4.940 (BEAKER) (test code = 772) Heel Reducer ID - ADMINBLOOD GAS, [id number] 02:27:06 Test Item Value Reference Range Interpretation [...] pg/mL 0-100 H (test code = 700) Heel Reducer ID - ADMIN(CELLAVISION MANUAL DIFF)2023-01-17 02:23:05 Test [...] CONCENTRATION Adequate (CELLAVISION)(BEAKER) (test code = 3438) Heel Reducer ID - Rhonda Medina comments: Slide comments:CBC W/PLT COUNT & AUTO [id number] 02:23:04 Test Item Value Reference Range Interpretation [...] WBC 0-0 (BEAKER) (test code = 413) [id number] 02:17:47 Test Item Value Reference Range Interpretation Comments PHOSPHORUS (BEAKER) (test code = 1.9 mg/dL 2.3-4.7 L 604) Heel Reducer ID - [id number] 02:17:46 Test Item Value Reference Range Interpretation Comments MAGNESIUM (BEAKER) (test code = 2.0 mg/dL 1.6-2.6 627) Heel Reducer ID - ADMINLACTIC ACID, [id number] 02:16:42 Test Item Value Reference Range Interpretation Comments LACTATE BLOOD VENOUS (2) (BEAKER) 1.18 mmol/L 0.50-2.00 (test code = 2872) Heel Reducer ID - ADMINOXYGEN SATURATION, [id number] 02:16:41 Test Item Value Reference Range Interpretation Comments O2 SATURATION (MEASURED) (BEAKER) 43.1 % (test code = 1455) [id number] 02:05:19 Test Item Value Reference Range Interpretation Comments PARTIAL THROMBOPLASTIN TIME 40.4 seconds 22.5-36.0 H (BEAKER) (test code = 760) [id number] 02:04:38 Test Item Value Reference Range Interpretation Comments FIBRINOGEN LEVEL (BEAKER) (test 767 mg/dl 225-434 H code = 658) PROTHROMBIN TIME/[id number] 02:04:17 Test Item Value Reference Range Interpretation Comments PROTIME (BEAKER) 18.0 seconds 11.9-14.2 H (test code = 759) INR (BEAKER) (test 1.60 See_Comment [Automat ed message] code = 370) The system [employer] generated this result transmitted ref erence range: <=5.90. The reference range was not used to int erpret this result as normal/abnormal . RECOMMENDED COUMADIN/WARFARIN INR THERAPY RANGESSTANDARD DOSE: 2.0 - 3.0 Includes: PROPHYLAXIS for venous thrombosis, systemic embolization; TREATMENT for venous thrombosis and/or pulmonary embolus.HIGH RISK: Target INR is 2.5-3.5 for patients with mechanical heart valves.CALCIUM, [id number] 01:51:19 Test Item Value Reference Range Interpretation Comments CALCIUM IONIZED (BEAKER) (test 1.06 mmol/L 1.12-1.27 L code = 698) PH, BLOOD (BEAKER) (test code = 7.44 1810) CBC W/AUTO [id number] 00:00:00 Test Item Value Reference Range Interpretation Comments NUCLEATED RBCS (test 0.0 /100 WBC'S See_Comment [Aut omated message] code = 25081-9) The system [facility] generated this result transmit sho reference range : 0.0 /100 WBC'S. The reference range was not used to interpret this result as normal/abnormal . ABSOLUTE EOSINOPHILS 0.62 K/UL See_Comment H [Autom ated message] (test code = The system [employer] 67219-4) generated this result transmit sho reference range : 0.00-0.50 K/UL. The reference range was not used to interpret this result as normal/abnormal . ABSOLUTE LYMPHOCYTES 2.88 K/UL See_Comment [Autom ated message] (test code = The system [employer] 44734-9) generated this result transmit sho reference range : 1.00-4.00 K/UL. The reference range was not used to interpret this result as normal/abnormal . ABSOLUTE MONOCYTES 0.82 K/UL See_Comment [Automat ed message] (test code = The system [facility] 71910-2) generated this result transmit sho reference range : 0.20-1.00 K/UL. The reference range was not used to interpret this result as normal/abnormal . ABSOLUTE NEUTROPHILS 5.34 K/UL See_Comment [Autom ated message] (test code = The system [facility] 96357-7) generated this result transmit sho reference range : 1.50-7.50 K/UL. The reference range was not used to interpret this result as normal/abnormal . BASOPHILS (test code 0.5 % = 06193-4) EOSINOPHILS (test 6.4 % code = 99145-6) HEMATOCRIT (test 34.8 % See_Comment L [Automated message] code = 13075-0) The system [facility] generated this result transmit sho reference range : 40.0-51.0 %. Th e reference range was not used to interpret this result as normal/abnormal . HEMOGLOBIN (test 11.8 G/DL See_Comment L [Automated message] code = 718-7) The system [facility] generated this result transmit hso reference range : 13.5-17.0 G/DL. The reference range was not used to interpret this result as normal/abnormal . LYMPHOCYTES (test 29.6 % code = 78499-2) MCH (test code = 29.9 PG See_Comment [Automated message] 00264-7) The system [facility] generated this result transmit sho reference range : 25.0-33.0 PG. T he reference range was not used to interpret this result as normal/abnormal . MCHC (test code = 33.9 G/DL See_Comment [Automate d message] 22406-9) The system [facility] generated this result transmit sho reference range : 31.0-36.0 G/DL. The reference range was not used to interpret this result as normal/abnormal . MCV (test code = 88.1 fL See_Comment [Automated message] 07126-4) The system [facility] generated this result transmit sho reference range : 80.0-99.0 fL. T he reference range was not used to interpret this result as normal/abnormal . MONOCYTES (test code 8.4 % = 47257-2) NEUTROPHILS (test 54.8 % code = 88240-4) PLATELET COUNT (test 325 K/UL See_Comment [Autom ated message] code = 83081-5) The system [facility] generated this result transmit sho reference range : 130-400 K/UL. T he reference range was not used to interpret this result as normal/abnormal . RBC (test code = 3.95 M/UL See_Comment L [Automated message] 13277-2) The system [facility] generated this result transmit sho reference range : 4.50-6.10 M/UL. The reference range was not used to interpret this result as normal/abnormal . RDW (test code = 13.2 % See_Comment [Automated message] 08208-6) The system [facility] generated this result transmit sho reference range : 11.5-15.0 %. Th e reference range was not used to interpret this result as normal/abnormal . WBC (test code = 9.7 K/UL See_Comment [Automated message] 05476-7) The system [facility] generated this result transmit sho reference range : 3.5-11.0 K/UL. The reference range was not used to interpret this result as normal/abnormal . HEMOGLOBIN [id number] 00:00:00 Test Item Value Reference Range Interpretation Comments HEMOGLOBIN A1c (test 8.0 % See_Comment H [Autom ated message] The code = 4548-4) system which generated this result tra nsmitted reference range : 4.2-5.6 %. The referenc e range was not used to interpret this result as normal/abnormal . LIPID PANEL WITH REFLEX DIRECT [id number] 00:00:00 Test Item Value Reference Range Interpretation Comments CALC LDL CHOL (test 119 MG/DL See_Comment H [Automa sho message] code = 45874-0) The system [facility] generated this result transmit sho reference range : <100 MG/DL. The reference range was not used to interpret this result as normal/abnormal . CHOLESTEROL (test code 190 MG/DL See_Comment [Aut omated message] = 2093-3) The system [facility] generated this result transmit sho reference range : <200 MG/DL. The reference range was not used to interpret this result as normal/abnormal . HDL CHOLESTEROL (test 31 MG/DL See_Comment L [Auto mated message] code = 2085-9) The system [facility] generated this result transmit sho reference range : >39 MG/DL. The refe rence range was not u sed to interpret th is result as normal/abnormal . RISK RATIO LDL/HDL 3.84 RATIO See_Comment H [Automat ed message] (test code = 76084-1) The sy stem which generated this result transmit sho reference range : <3.55 RATIO. Th e reference range was not used to interpret this result as normal/abnormal . TRIGLYCERIDES (test 299 MG/DL See_Comment H [Automa sho message] code = 2571-8) The system [employer] generated this result transmit sho reference range : <150 MG/DL. The reference range was not used to interpret this result as normal/abnormal . ALBUMIN/CREATININE RATIO, RANDOM [id number] 00:00:00 Test Item Value Reference Range Interpretation Comments ALBUMIN, URINE, <0.2 MG/DL NOT ESTAB MG/DL RANDOM (test code = 63985-6) CALC ALBUMIN/CREAT, <2 MG/G See_Comment [Automa sho message] The RND (test code = system [employer] generated 04645-1) this result tra nsmitted reference range : <30 MG/G. The refer ence range was not u sed to interpret this result as normal/abnormal . CREATININE, URINE, 82.4 MG/DL NOT ESTAB MG/DL CONC. (test code = 2161-8) COMPREHENSIVE METABOLIC [id number] 00:00:00 Test Item Value Reference Range Interpretation Comments ALBUMIN (test code = 4.0 G/DL See_Comment [Autom ated message] 1751-7) The system [employer] generated this result transmit sho reference range [...] [Automated message] (test code = 1975-2) The sys tem which generated this result transmit sho reference range : <=1.2 MG/DL. Th e reference range was not used to interpret this result as normal/abnormal . BUN (test code = 34 MG/DL See_Comment H [Automated message] 3094-0) The system [employer] generated this result transmit sho reference range : 6-20 MG/DL. The reference range was not used to interpret this result as normal/abnormal . CALCIUM (test code = 9.8 MG/DL See_Comment [Autom ated message] 00487-2) The system [employer] generated this result transmit sho reference range : 8.5-10.5 MG/DL. The reference range was not used to interpret this result as normal/abnormal . CALC A/G RATIO (test 1.3 RATIO See_Comment [Autom ated message] code = 1759-0) The system [facility] generated this result transmit sho reference range : 1.0-2.6 RATIO. The reference range was not used to interpret this result as normal/abnormal . CALC BUN/CREAT (test 19 RATIO See_Comment [Autom ated message] code = 3097-3) The system [facility] generated this result transmit sho reference range : 6-28 RATIO. The reference range was not used to interpret this result as normal/abnormal . CALC GLOBULIN (test 3.2 G/DL See_Comment [Automa sho message] code = 32843-4) The system [facility] generated this result transmit sho reference range : 1.9-3.7 G/DL. T he reference range was not used to interpret this result as normal/abnormal . CARBON DIOXIDE (test 28 MEQ/L See_Comment [Autom ated message] code = 1963-8) The system [facility] generated this result transmit sho reference range : 19-31 MEQ/L. Th e reference range was not used to interpret this result as normal/abnormal . CHLORIDE (test code 104 MEQ/L See_Comment [Automa sho message] = 2074-0) The system [facility] generated this result transmit sho reference range : 95-107 MEQ/L. T he reference range was not used to interpret this result as normal/abnormal . CREATININE (test 1.83 MG/DL See_Comment H [Automated message] code = 2160-0) The system [facility] generated this result transmit sho reference range : 0.80-1.40 MG/DL . The reference range was not used to interpret this result as normal/abnormal . eGFR (2020 CKD-EPI) 42 ML/MIN/1.73 See_Comment L [Auto mated message] (test code = The system [facility] 55478-1) generated this result transmit sho reference range : >60 ML/MIN/1.73. Th e reference range was not used to interpret this result as normal/abnormal . GLUCOSE (test code = 70 MG/DL See_Comment [Autom ated message] 1558-6) The system [facility] generated this result transmit sho reference range : 70-99 MG/DL. Th e reference range was not used to interpret this result as normal/abnormal . POTASSIUM (test code 4.3 MEQ/L See_Comment [Autom ated message] = 2823-3) The system [employer] generated this result transmit sho reference range : 3.5-5.4 MEQ/L. The reference range was not used to interpret this result as normal/abnormal . PROTEIN, TOTAL (test 7.2 G/DL See_Comment [Autom ated message] code = 2885-2) The system [facility] generated this result transmit sho reference range : 6.1-8.3 G/DL. T he reference range was not used to interpret this result as normal/abnormal . AST (test code = 16 U/L See_Comment [Automated message] 1920-8) The system [employer] generated this result transmit sho reference range : 9-50 U/L. The reference range was not used to interpret this result as normal/abnormal . ALT (test code = 11 U/L See_Comment [Automated message] 9932-6) The system [facility] [email or web address] generated this result transmit sho reference range : 5-50 U/L. The reference range was not used to interpret this result as normal/abnormal . SODIUM (test code = 145 MEQ/L See_Comment [Automa sho message] 9201-2) The system [email or web address] generated this result transmit sho reference range : 133-146 MEQ/L. The reference range was not used to interpret this result as normal/abnormal . GLUCOSE [id number] 16:51:00 Test Item Value Reference Range Interpretation Comments GLUCOSE BEDSIDE (test 314 MG/DL 70-110 H Perfor med by certified code = GLUBED) profile shaper operator at [facility] GLUCOSE [id number] 15:39:00 Test Item Value Reference Range Interpretation Comments GLUCOSE BEDSIDE (test 308 MG/DL 70-110 H Perfor med by certified code = GLUBED) profile shaper operator at [facility] GLUCOSE [id number] 14:43:00 Test Item Value Reference Range Interpretation Comments GLUCOSE BEDSIDE (test 371 MG/DL 70-110 H Perfor med by certified code = GLUBED) profile shaper operator at [facility] GLUCOSE [id number] 13:47:00 Test Item Value Reference Range Interpretation Comments GLUCOSE BEDSIDE (test 379 MG/DL 70-110 H Perfor med by certified code = GLUBED) profile shaper operator at [facility] GLUCOSE [id number] 12:54:00 Test Item Value Reference Range Interpretation Comments GLUCOSE BEDSIDE (test 391 MG/DL 70-110 H Perfor med by certified code = GLUBED) profile shaper operator at [facility] [id number] 12:19:00 Test Item Value Reference Range Interpretation Comments ACT-ISTAT (test code 311 SEC 74-137 H Perform ed by certified = ACTI) profile shaper operator at [facility] GLUCOSE [id number] 11:27:00 Test Item Value Reference Range Interpretation Comments GLUCOSE BEDSIDE (test 325 MG/DL 70-110 H Perfor med by certified code = GLUBED) profile shaper operator at [facility] BASIC METABOLIC [id number] 15:15:00 Test Item Value Reference Range Interpretation [...] = 9.3 mg/dL 8.0-10.5 N CA) PROTHROMBIN [id number] 15:09:00 Test Item Value Reference Range Interpretation [...] (to prevent recurrent infar ct). CBC W/AUTO [id number] 15:00:00 Test Item Value Reference Range Interpretation [...] NO = MDIFF) - XR CHEST 2 [id number] 00:00:00 [facility] : 1965 Sex: M FAX: eKyur Henry MD [phone] [place]: St: PRE FAX: Sydni Serna Name: DEXTER WEBSTER [facility] : 1965 Age/S: 57/M [address] [place] [address] Unit #: [id number] Loc: [place] [address] Phys: Sydni Serna [employer] Acct: [id number] Dis Date: Status: PRE SDC PHONE #: [phone] Exam Date: 07/20/2022 1503 FAX #: [phone] Reason: PRE OP EXAMS: CPT CODE: [id number] XR CHEST 2 V [id number] INFORMATION: Exam: XR Chest Exam date and [...] fractures. IMPRESSION: No acute cardiopulmonary findings. at 4984 Reported and signed by: Tera Espinoza M.D. CC: Keyur Bonds MD; Sydni Serna NP Technologist: FELICITA Renner) Trnscrd Date/Time/By:07/20/2022 (1534) : By: Patrick.TDO Orig Print D/T: S: 07/20/2022 (8660) PAGE 1 Signed ReportMR ORBIT W WO [id number] 18:04:12 Patient motion degrades image quality, mildly [...] is unremarkable. No orbital mass is present. [facility], Radiant Results Inft User - [...] to patientmotion.Remote, lacunar infarct of the right hemipons.[facility] B[facility] W WO [id number] 18:04:12 Patient motion degrades image quality, mildly [...] to patientmotion.Remote, lacunar infarct of the right hemipons.[facility] Notes Date/Time Note Provider Source 2022-07-22 12:56:00 [id number] [facility] [address] [place] [address] PATIENT NAME: DEXTER WEBSTER ADMIT DATE: 07/22/22ACCOUNT NO : [id number] ROOM NO: AGE: 57 REPORT TYPE: eELECTROCARDIOGRAM REPORT SEX: M ADMITTING PHYSICIAN: ATTENDING PHYSICIAN:Keyur Bonds MD Order:[id number] Reason : PCI Test Date/Time Stamp:WedJul 22 2022 12:56:20Blood Pressure : / mmHGVent. Rate : 079 BPM Atrial Rate : 079 BPM P-R Int : 174 ms QRS Dur : 104 ms QT Int : 390 ms P-R-T Axes : 063 046 041 degrees QTc Int : 447 ms Normal sinus rhythmNonspecific ST abnormalityAbnormal ECGWhen compared with ECG of 20-JUL-2022 14:57,No significant change was foundConfirmed by ORA JIANG MD ([id number]) on 07/24/2022 5:06:34 AM Referred By: Keyur Bonds Confirmed by:ORA JIANG MD at 0506 PATIENT NAME: DEXTER WEBSTER .[id number] AVAvailable for patient [id number]:07:02 2022-07-22 12:38:00 [id number] [facility] [address] [place] [address] PATIENT NAME: DEXTER WEBSTER ADMIT DATE: 07/22/22ACCOUNT NO : [id number] ROOM NO: AGE: 57 REPORT TYPE: CARDIAC CATHETERIZATION REPORT SEX: M ADMITTING PHYSICIAN: ATTENDING PHYSICIAN:Keyur Bonds MD PROCEDURE DATE: 07/22/2022 PROCEDURE PERFORMED:1 . Selective coronary angiogram.2. PCI of severe mi d RCA stenosis, used a 2.75 x 20 mm Synergy drug-eluting stent. ACCESS: Right femoral artery , 6-[place]atorial [place] closed with 6-[place] Angio-Seal. COMPLICATIONS: None. BLEEDING: Less than 20 mL. TOTAL SEDATION TIME: MAC for about 45 minutes. DESCRIPTION OF PROCEDURE: After risks, benefits and alternatives were explained, the patient agreed to proceed and signed informed consent. The patient was brought into cardiac catheterization laboratory, prepped and draped i n the usual sterile fashion. Accessed right femora l artery using micropuncturekit and fluoroscopic guidance as well as ultrasound guidance and placed a 6-[place] Shanks sheath and I took a 6-[place] JL4 catheter to aortic root, engaged th e left main, took standard views and 6-[place] JR4 guide with side holes engaged the RCA, took standard views. I then gave systemic heparin to assure ACT level above 250 and took short Runthrough wire into the distal RCA. The lesion was predilated and then placed a 2.75 x 12 mm Synergy drug-eluting stent across the area of stenosis with excellent results. I removed the wire and final angiogram was satisfactory and removed the sheath and placed a 6-[place] Angio-Seal for closure with good hemostasis. The patient tolerated theprocedure very well and he was already loaded with Plavix and aspirin earlier. FINDINGS:1. Left main: Large and normal.2. LAD: Large patent proximal to mid LAD stent and then the LAD has diffuse 10% to 20% stenosis and in the mid to distal, there is a segment of about 50% to60% stenosis, BRIANNA-3 flow.3. Left circumflex is very small after the OM takeoff. There is a stent in the OM with a 50 % ISR.4. RCA, moderate sized proximal patent stent , mid 70% to 80% stenosis, status post successful PCI as above. CONCLUSION:1. Severe mid RCA stenosis, status post successful PCI as above.2. Moderate coronary artery disease elsewhere.PATIENT NAME: DEXTER WEBSTER ACCOUN T #: [id number] RECOMMENDATIONS: Aspirin, Plavix and high dose statin and plan for a cardiac risk factor modification. Dictated By: Keyur Bonds MD Date Dictated: 07/22/2022 12:38:06Date Transcribed: 07/22/2022 13:20:51SR/Jen #: [id number] ID: [id number] by Keyur Bonds MD On 09/16/2022 02:27:05 PM at 0227 PATIENT NAME: DEXTER WEBSTER [id number]:20:00G.[id number] a ble for patient [id number]:27:46 2022-07-20 14:57:00 [id number] [place] [address] PATIENT NAME: DEXTER WEBSTER ADMIT DATE: ACCOUNT NO: [id number] ROOM NO: AGE: 57 REPORT TYPE: eELECTROCARDIOGRAM REPORT SEX: M ADMITTING PHYSICIAN: ATTENDING PHYSICIAN:Keyur Bonds MD Order:[id number] Reason : PREOP Test Date/Time Stamp:WedJul 20 2022 14:57:25Blood Pressure : / mmHGVent. Rate : 061 BPM Atrial Rate : 061 BPM P-R Int : 174 ms QRS Dur : 100 ms QT Int : 408 ms P-R-T Axes : 049 028 050 degrees QTc Int : 410 ms Normal sinus rhythmNormal ECGPRE_OPConfirmed by ULISES LÓPEZ MD ([id number]) on 07/20/2022 4:30:34 PM Referred By : Keyur Bonds Confirmed by:ULISES LÓPEZ MD at 1630 PATIENT NAME: DEXTER WEBSTER .[id number] AVAvailable for patient [id number]:30:56
--- NOTE | 2023-05-10 08:20 | RAD REPORT ---
EXAM DESCRIPTION: RAD - Chest Single View - 05/10/2023 8:12 am CLINICAL HISTORY: DYSPNEA Chest pain. COMPARISON: Chest Single View dated 04/11/2023; Abdomen 1 View (KUB) dated 01/16/2023; Chest Single Vi ew dated 01/16/2023; Chest Single View dated 01/15/2023 FINDINGS: Portable technique limits examination quality. Mild linear atelectasis is present in the left lung base. Mild interstitial pulmonary edema suspected slightly asymmetric. The heart is moderately enlarged. Sternotomy wires present. IMPRESSION: Mild CHF suspected.
[2023-05-10 09:11] LABS: Protime INR 1.19
[2023-05-10 09:12] LABS: Absolute Lymphocytes (CBC) 1.5 K/uL (0.7-4.9); Hematocrit 33.9 % (39.6-49.0); Lymphocytes % 7.6 % (15.3-44.8); MCV 83.8 fL (80-100); MPV 6.8 fL (7.6-11.3); Platelets 626 thou/uL (152-406); RBC Red Blood Cell Count 4.05 M/uL (4.33-5.43)
--- NOTE | 2023-05-10 09:22 | ER ---
Nurse's Notes [facility] Name: Tripp [place] Age: 58 yrs Sex: Male : 1965 Arrival Date: 05/10/2023 Time: 07:46 Bed 3 Private MD: Diagnosis: Heart failure, unspecified;Shortness of breath;Sternotomy Incision infection;Anemia, unspecified;Thrombocytosis;Renal insufficiency Presentation: 05/10 08:01 Chief complaint: EMS states: Toned out for low blood sugar, hx of DM, gave himself jl7 insulin last night when BGL was 112. BGL 30 on arrival, gave 1 of glucagon, BGL 80 on arrival to ER. Open wound to chest from bypass surgery in January 2024. 08:01 Method Of Arrival: EMS: [facility] 7 08:01 Acuity: MIRIAM 3 jl7 08:02 Coronavirus screen: At this time, the client does not indicate any symptoms associated jl7 with coronavirus-19. Ebola Screen: No symptoms or risks identified at this time. Initial Sepsis Screen: Does the patient meet any 2 criteria? No. Patient's initial sepsis screen is negative. Does the patient have a suspected source of infection? No. Patient's initial sepsis screen is negative. Risk Assessment: Do you want to hurt yourself or someone else? Patient reports no desire to harm self or others. Onset of symptoms is unknown. Triage Assessment: 08:00 General: Appears in no apparent distress. uncomfortable, Behavior is calm, cooperative, jl7 appropriate for age. Pain: Denies pain. Neuro: Level of Consciousness is awake, alert, obeys commands, Oriented to person, place, time, situation. Cardiovascular: Patient's skin is warm and dry. Chest pain is denied. Respiratory: Reports cough that is productive, Airway is patent Respiratory effort is even, unlabored, Respiratory pattern is regular, symmetrical. Derm: Skin is dry, Skin is pale, Skin temperature is cool Wound noted mid-sternal area Wound is Open, oozing yellow discharge. Historical: - Allergies: 08:04 No Known Allergies; jl7 - PMHx: 08:04 CAD; depressive disorder; Diabetes - IDDM; GERD; Hypercholesterolemia; Hypertension; jl7 neuropathy; - PSHx: 08:04 cardiac stents; Coronary artery bypass graft; jl7 - Immunization history:: Adult Immunizations unknown. - Social history:: Smoking status: unknown. Screenin:[facility] ED Fall Risk Assessment (Adult) History of falling in the last 3 months, jl7 including since admission No falls in past 3 months (0 pts) Score/Fall Risk Level 0 - 2 = Low Risk Oriented to surroundings, Maintained a safe environment. Abuse screen: Denies threats or abuse. Denies injuries from another. Nutritional screening: No deficits noted. Tuberculosis screening: No symptoms or risk factors identified. Assessment: 08:00 General: See triage assessment. jl7 09:00 Reassessment: Patient appears in no apparent distress at this time. No changes from jl7 previously documented assessment. Patient and/or family updated on plan of care and expected duration. Pain level reassessed. Patient is alert, oriented x 3, equal unlabored respirations, skin warm/dry/pink. 10:15 Reassessment: Patient appears in no apparent distress at this time. No changes from jl7 previously documented assessment. Patient and/or family updated on plan of care and expected duration. Pain level reassessed. Patient is alert, oriented x 3, equal unlabored respirations, skin warm/dry/pink. 11:26 Reassessment: Report given to KAMILLA Newsome at [facility], pt awaiting transport. jl7 12:46 Reassessment: EMS at bedside to transport pt, BGL recheck 81, pt provided with orange jl7 juice, pudding, peanut butter and gem crackers. Vital Signs: 08:01 BP 129 / 64; Pulse 72; Resp 15; Temp 96; Pulse Ox 98% ; Weight 98.43 kg; Height 5 ft. jl7 11 in. ; Pain 0/10; 09:43 BP 115 / 47; Pulse 78; Resp 15; Pulse Ox 98% ; jl7 11:08 BP 112 / 66; Pulse 76; Resp 15; Pulse Ox 96% ; jl7 08:01 Body Mass Index 30.27 (98.43 kg, 180.34 cm) jl7 08:01 Pain Scale: Adult jl7 ED Course: 07:54 Patient arrived in ED. ms3 07:54 Leonard Kincaid DO is Attending Physician. ms3 08:00 Arm band placed on right wrist. jl7 08:01 Yael Maldonado RN is Primary Nurse. jl7 08:04 Triage completed. jl7 08:14 XRAY Chest (1 view) In Process Unspecified. EDMS 08:15 Missed attempt(s): 22 gauge in left antecubital area. Bleeding controlled, band aid jl7 applied, catheter tip intact. 08:56 Missed attempt(s): 24 gauge in right hand. Bleeding controlled, band aid applied, iw catheter tip intact. 09:32 initiated transfer to [facility]. bd 10:00 Inserted saline lock: 20 gauge in right upper arm, using aseptic technique. ,using nj1 aseptic technique. Ultrasound guided. Catheter tip well visualized within vasculature during placement. 10:15 Patient has correct armband on for positive identification. Provided Education on: use jl7 of call grossman. 10:44 pt accepted in transfer to [facility] by dr catalan admin approval given by john eaton,pt going to [address] [place] [address] bed 6. 11:24 No provider procedures requiring assistance completed. Patient transferred, IV remains jl7 in place. intact, No redness/swelling at site. Administered Medications: 11:06 Drug: Piperacillin-Tazobactam IVPB 3.375 grams IVPB once over 60 mins; (mix in NS 100 jl7 mL) Route: IVPB; Infused Over: 60 mins; Site: right upper arm; 12:06 Follow up: Response: No adverse reaction; IV Status: Completed infusion; IV Intake: jl7 100ml 12:07 Drug: vancoMYCIN IVPB 1 grams IVPB once over 2 hrs Route: IVPB; Infused Over: 2 hrs; jl7 Site: right upper arm; 13:00 Follow up: Response: No adverse reaction; IV Status: Infusion continued upon transfer jl7 Medication: 10:15 VIS not applicable for this client. jl7 Intake: 12:06 IV: 100ml; Total: 100ml. jl7 Outcome: 09:22 ER care complete, transfer ordered by . ms3 13:00 Discharged to home ambulatory, jl7 13:00 Condition: stable 13:00 Discharge instructions given to patient, Instructed on the need for transfer, Demonstrated understanding of instructions, 13:00 Patient left the ED. jl7 Signatures: Dispatcher [employer] EDMS Domonique Jasmine bd Larisa Horton RN KAMILLA iw Yael Maldonado RN RN jl7 Leonard Kincaid DO DO ms3 Ki Browna, RN RN nj1
--- NOTE | 2023-05-10 09:22 | EDPHYS ---
Physician Documentation [facility] Name: Tripp Webster Age: 58 yrs Sex: Male : 1965 Arrival Date: 05/10/2023 Time: 07:46 Bed 3 Private MD: ED Physician Leonard Kincaid HPI: 05/10 08:06 This 58 yrs old Male presents to ER via EMS with complaints of Low blood suger. ms3 08:06 58-year-old male with past medical history of coronary artery disease status post ms3 bypass February 03, 2023, depression, diabetes, hyper cholesterolemia, hypertension presents to the emergency department via [facility] after they were called for hyperglycemia. On their arrival patient's blood glucose level was 31. Patient was given 1 mg of glucagon with improvement of his blood sugar. EMS notes patient is alert and oriented x4, GCS 15. EMS states on listening to patient he was "full of fluid." Patient states he has had congestion for 1 week. Patient denies any alleviating or inciting factors.. Historical: - Allergies: 08:04 No Known Allergies; jl7 - PMHx: 08:04 CAD; depressive disorder; Diabetes - IDDM; GERD; Hypercholesterolemia; Hypertension; jl7 neuropathy; - PSHx: 08:04 cardiac stents; Coronary artery bypass graft; jl7 - Immunization history:: Adult Immunizations unknown. - Social history:: Smoking status: unknown. ROS: 08:06 Constitutional: Negative for fever, and chills. Neck: Negative for injury, pain, and ms3 swelling, Cardiovascular: Negative for chest pain, and palpitations. 08:06 Abdomen/GI: Negative for abdominal pain, nausea, vomiting, diarrhea, and constipation, MS/Extremity: Negative for injury and deformity, 08:06 Respiratory: Positive for shortness of breath, 08:06 Skin: Positive for Drainage from superior aspect of sternotomy scar, 08:06 All other systems are negative, Exam: 08:06 Constitutional: This is a well developed, well nourished patient who is awake, alert, ms3 and in no acute distress. Head/Face: Normocephalic, atraumatic. Neck: Trachea midline, no cervical lymphadenopathy. Supple, full range of motion without nuchal rigidity, or vertebral point tenderness. No Meningismus. Chest/axilla: Normal chest wall appearance and motion. Nontender with no deformity. Cardiovascular: Regular rate and rhythm with a normal S1 and S2. No gallops, murmurs, or rubs. Normal PMI, no JVD. No pulse deficits. 08:06 Respiratory: the patient does not display signs of respiratory distress, Respirations: normal, Breath sounds: rales, that are moderate, are located in both bases, Respiratory rate: 15 09:44 ECG was reviewed by the Attending Physician. ms3 Vital Signs: 08:01 BP 129 / 64; Pulse 72; Resp 15; Temp 96; Pulse Ox 98% ; Weight 98.43 kg; Height 5 ft. jl7 11 in. ; Pain 0/10; 09:43 BP 115 / 47; Pulse 78; Resp 15; Pulse Ox 98% ; jl7 11:08 BP 112 / 66; Pulse 76; Resp 15; Pulse Ox 96% ; jl7 08:01 Body Mass Index 30.27 (98.43 kg, 180.34 cm) jl7 08:01 Pain Scale: Adult jl7 MDM: 07:54 Patient medically screened. ms3 08:06 Differential diagnosis: Sternum infection vs CHF vs PA vs Hypoglycemia. ms3 09:47 ED course: Discussed case with Dr Gregg and he accepts patient. Discussed necessity of ms3 transfer with patient and he understands/ agrees with plan.. 11:58 Data reviewed: vital signs, nurses notes, lab test result(s), radiologic studies, and ms3 as a result, I will transfer patient. Consideration of Admission/Observation Transferred patient to higher level of care/ continuity of care. Management of patient was discussed with the following: Dr Gregg- He accepts patient. I considered the following discharge prescriptions or medication management in the emergency department Medications were administered in the Emergency Department. See MAR. Independent interpretation of the following test(s) in the Emergency Department EKG: See my EKG interpretation above. Historians other than the Patient: EMS: [facility]. Care significantly affected by the following chronic conditions: Diabetes, Hypertension. Counseling: I had a detailed discussion with the patient and/or guardian regarding the historical points, exam findings, and any diagnostic results supporting the discharge/admit diagnosis, lab results, radiology results, the need to transfer to another facility, Patient's cardiothoracic surgeon. 05/10 07:55 Order name: Basic Metabolic Panel; Complete Time: 09:46 ms3 05/10 07:55 Order name: CBC with Diff; Complete Time: 09:47 ms3 05/10 07:55 Order name: LFT's; Complete Time: 09:46 ms3 05/10 07:55 Order name: Magnesium; Complete Time: 09:46 ms3 05/10 07:55 Order name: NT PRO-BNP; Complete Time: 09:46 ms3 05/10 07:55 Order name: PT-INR; Complete Time: 09:18 ms3 05/10 07:55 Order name: Troponin HS; Complete Time: 09:46 ms3 05/10 08:22 Order name: Glucose, Ancillary Testing; Complete Time: 08:39 EDMS 05/10 09:16 Order name: Manual Differential; Complete Time: 09:47 EDMS 05/10 09:23 Order name: Wound Culture ms3 05/10 09:23 Order name: Blood Culture Adult (2) ms3 05/10 09:24 Order name: Lactate w/ 2H reflex if indic.; Complete Time: 12:01 ms3 05/10 09:35 Order name: SARS-COV-2 Antigen Rapid; Complete Time: 12:01 bd 05/10 12:49 Order name: Glucose, Ancillary Testing EDMS 05/10 07:55 Order name: XRAY Chest (1 view); Complete Time: 08:39 ms3 05/10 07:55 Order name: EKG; Complete Time: 07:56 ms3 05/10 07:55 Order name: Cardiac monitoring; Complete Time: 08:26 ms3 05/10 07:55 Order name: EKG - Nurse/Tech; Complete Time: 08:26 ms3 05/10 07:55 Order name: IV Saline Lock; Complete Time: 11:27 ms3 05/10 07:55 Order name: Labs collected and sent; Complete Time: 08:56 ms3 05/10 07:55 Order name: O2 Per Protocol; Complete Time: 08:26 ms3 05/10 07:55 Order name: O2 Sat Monitoring; Complete Time: 08:26 ms3 05/10 09:24 Order name: Accucheck; Complete Time: 09:43 ms3 05/10 09:24 Order name: IV Saline Lock - Large Bore; Complete Time: 11:06 ms3 05/10 09:24 Order name: Vital Signs; Complete Time: 11:06 ms3 EC:44 Rate is 72 beats/min. Rhythm is regular. QRS [place] is Normal. [place] interval is normal. QRS ms3 interval is normal. Clinical impression: NSR w/ Non-specific ST/T Changes. Interpreted by me. Reviewed by me. Administered Medications: 11:06 Drug: Piperacillin-Tazobactam IVPB 3.375 grams IVPB once over 60 mins; (mix in NS 100 jl7 mL) Route: IVPB; Infused Over: 60 mins; Site: right upper arm; 12:06 Follow up: Response: No adverse reaction; IV Status: Completed infusion; IV Intake: jl7 100ml 12:07 Drug: vancoMYCIN IVPB 1 grams IVPB once over 2 hrs Route: IVPB; Infused Over: 2 hrs; jl7 Site: right upper arm; 13:00 Follow up: Response: No adverse reaction; IV Status: Infusion continued upon transfer jl7 Disposition Summary: 05/10/23 09:22 Transfer Ordered Notes: Transfer Location: [facility] ms3 Reason: Higher level of care ms3 Condition: Stable ms3 Problem: new ms3 Symptoms: are unchanged ms3 Accepting Physician: (05/10/23 13:00) marco [email or web address] Diagnosis - Heart failure, unspecified ms3 - Shortness of breath ms3 - Sternotomy Incision infection ms3 - Anemia, unspecified ms3 - Thrombocytosis ms3 - Renal insufficiency ms3 Forms: - Medication Reconciliation Form ms3 - SBAR form ms3 Signatures: Dispatcher [employer] Yael Triplett RN RN jl7 Leonard Kincaid DO DO ms3 Corrections: (The following items were deleted from the chart) 09:50 09:22 Dr rascon ms3 13:00 09:50 Dr rascon jl7
[2023-05-10 09:32] LABS: Albumin 2.6 g/dL (3.4-5.0); Bilirubin Direct 0.1 mg/dL (0-0.2); Bilirubin Indirect, Calculated 0.3 mg/dL (0.2-0.8); Bilirubin Total 0.4 mg/dL (0.2-1.0); Magnesium 2.6 mg/dL (1.6-2.4); Potassium 3.6 mEq/L (3.5-5.1); Protein, Total 8.6 g/dL (6.4-8.2); Troponin High Sensitivity 21.1 pg/mL (<58.9)
[2023-05-10 09:46] LABS: Toxic Granulation 1+
[2023-05-10 09:47] LABS: Blood Morphology Comment NOT SEEN (NOT SEEN); Platelet Estimate INCR
[2023-05-10] MEDS ORDERED: VANCOMYCIN 1 GM/VIAL ONE (10:07)
[2023-05-10] MEDS ORDERED: NA CHLORIDE 0.9% 250 ML ONE (10:08)
[2023-05-10] MEDS ORDERED: PIPERACIL/TAZO 3.375 GM VIAL IV ONE (10:08)
[2023-05-10] MEDS ORDERED: NA CHLORIDE 0.9% 0 ML ONE (10:08)
[2023-05-10] MEDS ORDERED: NA CHLORIDE 0.9% 100 ML ONE (10:09)
[2023-05-10 10:23] LABS: SARS-CoV-2 Antigen Rapid Res Negative (Negative)
[2023-05-10 13:33] VITALS: TEMP 96
[2023-05-10 13:37] VITALS: BP 112/66; O2SAT 96
--- NOTE | 2023-05-13 15:29 | EKG ---
Test Date: 2023-05-10 Test Time: 08:13:56 Branner Machine Tender: SERGO MEASUREMENT RESULTS: Intervals: Rate: 72 [place]: 148 QRSD: 90 QT: 404 QTc: 442 [place]: P: 61 [place]: 148 QRS: 24 T: 89 INTERPRETIVE STATEMENTS: Normal sinus rhythm Inferior infarct, age undetermined Abnormal ECG Compared to ECG 04/11/2023 22:43:51 Myocardial infarct finding now present T-wave abnormality no longer present Electronically Signed On 05-13-23 15:16:23 BARBED WIRE MACHINE OPERATOR by Keyur Bonds
== END 2023-05-10 13:00 | disposition short-term general hospital (02) ==
LOC: ER 07:46
DX: E11.9 Type 2 diabetes mellitus without complications (principal); T81.41XA Infection following a procedure, superficial incisional surgical site, initial encounter; D75.839 Thrombocytosis, unspecified; I11.0 Hypertensive heart disease with heart failure; I50.9 Heart failure, unspecified; I25.10 Atherosclerotic heart disease of native coronary artery without angina pectoris; D64.9 Anemia, unspecified; R06.02 Shortness of breath; N28.9 Disorder of kidney and ureter, unspecified; K21.9 Gastro-esophageal reflux disease without esophagitis; I10 Essential (primary) hypertension; E78.00 Pure hypercholesterolemia, unspecified; Z11.52 Encounter for screening for COVID-19; Z95.1 Presence of aortocoronary bypass graft; Z95.5 Presence of coronary angioplasty implant and graft
CPT/HCPCS: 96365; 96367; 93005; 87040; 87070; 85025; 80048; 36415; 83735; 87205; 85610; 82947 ×2; 80076; 83605; 84484; 83880; 71045; 99284; 87811; J2543; J7050

== ENCOUNTER 2023-05-23 08:14 | Observation (INO) | payer OTHER ==
--- NOTE | 2023-05-23 08:39 | RAD REPORT ---
EXAM DESCRIPTION: RAD - Chest Single View - 05/23/2023 8:31 am CLINICAL HISTORY: CHEST PAIN Chest pain. COMPARISON: <Comparisons> FINDINGS: Portable technique limits examination quality. Mild interstitial pulmonary edema seen. Linear opacities in the left lung base suspected to represent atelectasis. Early pneumonia not completely without dislocation. The heart is moderately enlarged. C hanges of CABG identified. IMPRESSION: Mild CHF. Mild atelectasis versus early infiltrate left lung base.
[2023-05-23 08:57] LABS: Hematocrit 30.9 % (39.6-49.0); Lymphocytes % 11.7 % (15.3-44.8); MCV 84.3 fL (80-100); MPV 7.3 fL (7.6-11.3); Platelets 350 thou/uL (152-406); RBC Red Blood Cell Count 3.66 M/uL (4.33-5.43)
[2023-05-23] MEDS ORDERED: MORPHINE 4 MG/ML SYR ONE (09:06)
[2023-05-23] MEDS ORDERED: ONDANSETRON 4 MG/2 ML VIAL ONE (09:07)
[2023-05-23 09:26] LABS: Magnesium 1.7 mg/dL (1.6-2.4); Potassium 3.3 mEq/L (3.5-5.1); Troponin High Sensitivity 18.5 pg/mL (<58.9)
--- NOTE | 2023-05-23 09:50 | ER ---
Nurse's Notes [facility] Name: Tripp Webster Age: 58 yrs Sex: Male : 1965 Arrival Date: 05/23/2023 Time: 08:14 Bed 6 Private MD: Diagnosis: Chest pain, unspecified;Essential (primary) hypertension Presentation: 05/23 08:15 Chief complaint: EMS states: having chest pain and multiple decubitus that are hurting. ko1 Coronavirus screen: At this time, the client does not indicate any symptoms associated with coronavirus-19. Ebola Screen: No symptoms or risks identified at this time. Initial Sepsis Screen: Does the patient meet any 2 criteria? No. Patient's initial sepsis screen is negative. Does the patient have a suspected source of infection? No. Patient's initial sepsis screen is negative. Risk Assessment: Do you want to hurt yourself or someone else? Patient reports no desire to harm self or others. Onset of symptoms is unknown. 08:15 Method Of Arrival: EMS: [facility] ko1 08:15 Acuity: MIRIAM 3 ko1 Triage Assessment: 09:16 General: Appears in no apparent distress. uncomfortable, Behavior is calm, cooperative, ko1 appropriate for age. Pain: Complains of pain in chest pain, left great toe, buttocks and heel of right foot. Historical: - Allergies: 09:16 No Known Allergies; ko1 - PMHx: 09:16 CAD; depressive disorder; Diabetes - IDDM; GERD; Hypercholesterolemia; Hypertension; ko1 neuropathy; - PSHx: 09:16 cardiac stents; Coronary artery bypass graft; ko1 - Immunization history:: Adult Immunizations up to date. - Social history:: Smoking status: Patient/guardian denies using tobacco. Screenin:15 [facility] ED Fall Risk Assessment (Adult) History of falling in the last 3 months, ko1 including since admission No falls in past 3 months (0 pts) Confusion or Disorientation No (0 pts) Intoxicated or Sedated No (0 pts) Impaired Gait Yes (1 pt) Mobility Assist Device Used Yes (1 pt) Altered Elimination No (0 pt) Score/Fall Risk Level 0 - 2 = Low Risk Oriented to surroundings, Maintained a safe environment, Educated pt \T\ family on fall prevention, incl call for assistance when getting out of bed, Assessed \T\ reinforced patient's understanding of fall precautions, Provided non-skid footwear, Hourly rounding (assess needs \T\ fall precautionary measures) done, Used ambulatory aids as needed (educated on \T\ assisted with), Used gait belt as appropriate. Abuse screen: Denies threats or abuse. Denies injuries from another. Nutritional screening: No deficits noted. Tuberculosis screening: No symptoms or risk factors identified. Assessment: 09:15 Neuro: No deficits noted. Cardiovascular: Reports chest pain. Respiratory: No deficits ko1 noted. GI: No deficits noted. : No deficits noted. EENT: No deficits noted. Derm: Wound noted chest with sutures and left leg with multiple wounds Decubitus located on right heel(s) left great toe, buttocks. Musculoskeletal: No deficits noted. Vital Signs: 08:15 BP 139 / 64; Pulse 92; Resp 18; Temp 98; Pulse Ox 100% ; ko1 09:15 BP 138 / 62; Pulse 93; Resp 16; Pulse Ox 98% ; ko1 11:36 BP 116 / 53; Pulse 92; Resp 16; Pulse Ox 94% ; ko1 ED Course: 08:15 Patient arrived in ED. eb 08:19 Leonard Kincaid DO is Attending Physician. ms3 08:20 Linda Kat, KAMILLA is Primary Nurse. ko1 08:33 XRAY Chest (1 view) In Process Unspecified. EDMS 08:50 Basic Metabolic Panel Sent. ko1 08:50 CBC with Diff Sent. ko1 08:50 Magnesium Sent. ko1 08:50 Troponin HS Sent. ko1 08:50 Accessed PICC line. Clean \T\ dry. Dressing intact. No blood return. Flushes easily. ko1 09:00 Triage completed. ko1 09:15 Patient has correct armband on for positive identification. Placed in gown. Bed in low ko1 position. Call light in reach. Side rails up X2. Client placed on continuous cardiac and pulse oximetry monitoring. NIBP monitoring applied. junior oracle dba on. 09:16 Arm band placed on right wrist. Patient placed in an exam room, on a stretcher, on ko1 survey worker, on pulse oximetry, Patient notified of wait time. 09:42 Ronny Yu MD is Hospitalizing Provider. ms3 15:21 No provider procedures requiring assistance completed. Patient admitted, IV remains in rs5 place. Administered Medications: 08:57 Drug: morphine IVP or IV 4 mg IVP once over 4 mins Route: IVP; Infused Over: 4 mins; ko1 Site: PICC; 09:27 Follow up: Response: No adverse reaction; Pain is decreased ko1 08:57 Drug: Ondansetron IVP 4 mg IVP once; over 2 minutes Route: IVP; Site: PICC; ko1 09:27 Follow up: Response: No adverse reaction ko1 10:54 Drug: morphine IVP or IV 2 mg IVP once over 4 mins Route: IVP; Infused Over: 4 mins; ko1 Site: right antecubital; Medication: 15:22 VIS not applicable for this client. rs5 Outcome: 09:49 Decision to Hospitalize by Provider. ms3 15:21 Admitted to Med/surg accompanied by nurse, via stretcher, with chart, rs5 15:21 Condition: stable 15:21 Instructed on the need for admit, Demonstrated understanding of instructions, 15:22 Patient left the ED. rs5 Signatures: Dispatcher [employer] EDMS Madeline Jalloh Marcus, DO DO ms3 Linda Kat, RN RN ko1 Sam Marquez, RN RN rs5
--- NOTE | 2023-05-23 09:50 | EDPHYS ---
Physician Documentation [facility] Name: Tripp Webster Age: 58 yrs Sex: Male : 1965 Arrival Date: 05/23/2023 Time: 08:14 Bed 6 Private MD: ED Physician Leonard Kincaid HPI: 05/23 08:19 This 58 yrs old Male presents to ER via Unassigned with complaints of chest pain. ms3 08:19 58-year-old male with past medical history of coronary artery disease status post CABG ms3 in January, hypertension, diabetes, hyperlipidemia presents to the emergency department for chest pain. Patient rates his pain a 10/10 describes pain as pressure. Patient endorses shortness of breath, nausea. Patient denies vomiting. Patient states the pain began at 8 PM last night.. Historical: - Allergies: 09:16 No Known Allergies; ko1 - PMHx: 09:16 CAD; depressive disorder; Diabetes - IDDM; GERD; Hypercholesterolemia; Hypertension; ko1 neuropathy; - PSHx: 09:16 cardiac stents; Coronary artery bypass graft; ko1 - Immunization history:: Adult Immunizations up to date. - Social history:: Smoking status: Patient/guardian denies using tobacco. ROS: 08:19 Constitutional: Negative for fever, and chills. Neck: Negative for injury, pain, and ms3 swelling, 08:19 Abdomen/GI: Negative for abdominal pain, nausea, vomiting, diarrhea, and constipation, MS/Extremity: Negative for injury and deformity, Skin: Negative for injury, rash, and discoloration, 08:19 Cardiovascular: Positive for chest pain, 08:19 All other systems are negative, Exam: 08:19 Constitutional: This is a well developed, well nourished patient who is awake, alert, ms3 and in no acute distress. Head/Face: Normocephalic, atraumatic. Neck: Trachea midline, no cervical lymphadenopathy. Supple, full range of motion without nuchal rigidity, or vertebral point tenderness. No Meningismus. Chest/axilla: Normal chest wall appearance and motion. Nontender with no deformity. Cardiovascular: Regular rate and rhythm with a normal S1 and S2. No gallops, murmurs, or rubs. Normal PMI, no JVD. No pulse deficits. Respiratory: Lungs have equal breath sounds bilaterally, clear to auscultation and percussion. No rales, rhonchi or wheezes noted. No increased work of breathing, no retractions or nasal flaring. 08:19 Skin: Sternum incision with sutures in place. 08:32 ECG was reviewed by the Attending Physician. ms3 Vital Signs: 08:15 BP 139 / 64; Pulse 92; Resp 18; Temp 98; Pulse Ox 100% ; ko1 09:15 BP 138 / 62; Pulse 93; Resp 16; Pulse Ox 98% ; ko1 11:36 BP 116 / 53; Pulse 92; Resp 16; Pulse Ox 94% ; ko1 MDM: 08:19 Patient medically screened. ms3 08:22 Differential diagnosis: abnormal EKG, acute myocardial infarction, coronary artery ms3 disease chest wall pain. 09:42 HEART Score: History: Moderately Suspicious (1), ECG: Normal (0), Age: > 45 and < 65 ms3 years (1), Risk Factors: > or = 3 Risk factors for atherosclerotic disease (2), [Hypercholesterolemia] [Hypertension] [DM] Troponin: < or = 1 x Normal Limit (0), Total Score = 4. The patient was not given aspirin in the Emergency Department. Administered by EMS. Data reviewed: vital signs, nurses notes, lab test result(s), EKG, radiologic studies, and as a result, I will admit patient. Consideration of Admission/Observation Patient was admitted/placed on observation. Management of patient was discussed with the following: Hospitalist: Dr Yu. Soils Analyst: Dr Bonds. I considered the following discharge prescriptions or medication management in the emergency department Medications were administered in the Emergency Department. See MAR. Independent interpretation of the following test(s) in the Emergency Department X-Ray: My interpretation is CXR image reviewed by me shows left pleural effusion. Historians other than the Patient: EMS: [facility]. Care significantly affected by the following chronic conditions: Diabetes, Hypertension. Counseling: I had a detailed discussion with the patient and/or guardian regarding the historical points, exam findings, and any diagnostic results supporting the discharge/admit diagnosis, lab results, radiology results, the need for further work-up and treatment in the hospital. Response to treatment: the patient's symptoms have mildly improved after treatment, and as a result, I will admit patient. ED course: Discussed case with Dr. Bonds and he agrees with observation. Discussed case with Dr. Yu and he accepts patient as observation. All questions were answered.. 05/23 08:19 Order name: Basic Metabolic Panel; Complete Time: 09:33 ms3 05/23 08:19 Order name: CBC with Diff; Complete Time: 09:33 ms3 05/23 08:19 Order name: Magnesium; Complete Time: 09:33 ms3 05/23 08:19 Order name: Troponin HS; Complete Time: 09:33 ms3 05/23 14:01 Order name: Glucose, Ancillary Testing; Complete Time: 14:19 EDMS 05/23 14:43 Order name: Glucose, Ancillary Testing EDMS 05/23 08:19 Order name: XRAY Chest (1 view); Complete Time: 08:46 ms3 05/23 08:19 Order name: EKG; Complete Time: 08:20 ms3 05/23 08:19 Order name: Cardiac monitoring; Complete Time: 08:20 ms3 05/23 08:19 Order name: EKG - Nurse/Tech; Complete Time: 08:22 ms3 05/23 08:19 Order name: IV Saline Lock; Complete Time: 08:20 ms3 05/23 08:19 Order name: Labs collected and sent; Complete Time: 08:50 ms3 05/23 08:19 Order name: O2 Per Protocol; Complete Time: 08:20 ms3 05/23 08:19 Order name: O2 Sat Monitoring; Complete Time: 08:20 ms3 05/23 12:42 Order name: Accucheck; Complete Time: 13:36 la1 EC:32 Rate is 90 beats/min. Rhythm is regular. QRS [place] is Normal. [place] interval is normal. QRS ms3 interval is normal. Clinical impression: NSR w/ Non-specific ST/T Changes. No change from previous ECG on May 10, 2023. Interpreted by me. Reviewed by me. Administered Medications: 08:57 Drug: morphine IVP or IV 4 mg IVP once over 4 mins Route: IVP; Infused Over: 4 mins; ko1 Site: PICC; : Follow up: Response: No adverse reaction; Pain is decreased ko1 08:57 Drug: Ondansetron IVP 4 mg IVP once; over 2 minutes Route: IVP; Site: PICC; ko1 09:27 Follow up: Response: No adverse reaction ko1 10:54 Drug: morphine IVP or IV 2 mg IVP once over 4 mins Route: IVP; Infused Over: 4 mins; ko1 Site: right antecubital; Disposition Summary: 05/23/23 09:49 Hospitalization Ordered Notes: Hospitalization Status: Observation ms3 Provider: Ronny Yu ms3 Location: Telemetry/MedSurg (observation) ms3 Condition: Stable ms3 Problem: new ms3 Symptoms: are unchanged ms3 Bed/Room Type: Standard ms3 Room Assignment: 208(05/23/23 13:55) eb Diagnosis - Chest pain, unspecified ms3 - Essential (primary) hypertension ms3 Forms: - Medication Reconciliation Form ms3 - SBAR form ms3 - Leadership Thank You Letter ms3 Signatures: Dispatcher [employer] EDJulio C Lawler, OBDULIO-C TONGUE AND GROOVE MACHINE SETTER-Madeline Peterson Marcus, DO DO ms3 Linda Kat RN RN ko1 Corrections: (The following items were deleted from the chart) 13:55 09:49 ms3 eb
[2023-05-23] MEDS ORDERED: MORPHINE 2 MG/ML SYR ONE (11:10)
--- NOTE | 2023-05-23 12:29 | P.HP ---
Certification for Inpatient Patient admitted to: Observation With expected LOS: <2 Midnights Patient will require the following post-hospital care: None Practitioner: I am a practitioner with admitting privileges, knowledge of patient current condition, hospital course, and medical plan of care. Services: Services provided to patient in accordance with Admission requirements found in Title 42 Section 412.3 of the Code of Federal Regulations Patient History Date of Service: 05/23/23 Reason for admission: ACS rule out History of Present Illness: 58-year-old male with history of CAD, CABG in January of this year, CAD with stent placement and both August 2022 and May of 2022, insulin-dependent diabetes, hypertension, hyperlipidemia presents emergency department chief complaint of chest pain. He reports chest pain began last night about an hour after eating raw green onions, he also had an episode of vomiting at that time denies any abdominal pain. Reports he still having 10 out of 10 chest pain. Of note he was recently transferred from [facility] to [facility] on 05/10/2023 for infected CABG sternal wound. During that admission he had incision and drainage/debridement performed. He was discharged on IV antibiotics vancomycin 1 g daily and cefepime 2 g twice daily, he has been receiving home health/IV antibiotics at home since he was discharged. He has stitches present to his sternal area that he is supposed to have removed in [place] on 05/26/2023. He was evaluated in the emergency department for chest pain his initial high-s ensitivity troponin was 18.5 glucose 385 potassium 3.3 sodium 133 chloride 97. EKG without STEMI criteria chest x-ray showed mild CHF pattern. ED provider wishes to admit patient under observation for ACS rule. Allergies No Known Allergies Allergy (Verified 04/12/23 06:04) Home Medications: Aspirin Chewable [Aspirin Chewable*] 81 mg PO DAILY 04/12/23 Atorvastatin Calcium [Lipitor] 80 mg PO DAILY 04/12/23 Clopidogrel Bisulfate [Plavix*] 75 mg PO DAILY 04/12/23 Furosemide [Lasix*] 40 mg PO BID 04/12/23 Isosorbide Mononitrate [Isosorbide Mononitrate ER] 30 mg PO DAILY 04/12/23 Magnesium Oxide [Mag 0X*] 400 mg PO BID 04/12/23 Metoprolol Tartrate 25 mg PO BID 04/12/23 Quetiapine Fumarate 150 mg PO BEDTIME 04/12/23 metOLazone [Metolazone] 5 mg PO DAILYPRN PRN 04/12/23 Hydrocodone 7.5/APAP 325 [[place] 7.5/325 mg*] 1 tab PO Q6H PRN #30 tab 04/14/23 Minocycline HCl 100 mg PO BID #20 cap 04/14/23 Nystatin Powder [Mycostatin (Powder)*] 15 appl TOP BID #1 btl 04/14/23 Smz./Tmp. [Bactrim Ds 800 MG/160 MG*] 1 tab PO BID #10 tab 04/14/23 - Past Medical/Surgical History Diabetic: Yes -: Hypertension -: Diabetes mellitus type 2 insulin dependent -: CAD with prior stent -: Hyperlipidemia -: Diabetic neuropathy -: Obesity -: Sleep apnea noncompliant -: CVA -: Chronic diastolic congestive heart failure -: Stent placement x5 -: back surgery -: ble vascular sx -: Appendectomy -: Multiple debridement left great toe -: cabg 02/03/23 Psychosocial/ Personal History: Patient is - Family History Father -: Heart disease, Diabetes Mother -: Heart disease - Social History Alcohol use: No CD- Drugs: No Caffeine use: Yes Place of Residence: Home Review of Systems 10-point ROS is otherwise unremarkable Cardiovascular: Chest Pain Gastrointestinal: Nausea, Vomiting Physical Examination - Physical Exam General: Alert, In no apparent distress, Oriented x3 HEENT: Atraumatic, PERRLA, Mucous membr. moist/pink, EOMI, Sclerae nonicteric Neck: Supple, 2+ carotid pulse no bruit, No LAD, Without JVD or thyroid abnormality Respiratory: Clear to auscultation bilaterally, Normal air movement Cardiovascular: Regular rate/rhythm, Normal S1 S2 Gastrointestinal: Normal bowel sounds, No tenderness Integumentary: Other (Sternal wound well approximated with sutures, no surrounding erythema, drainage) Neurological: Normal speech, Normal strength at 5/5 x4 extr, Normal tone - Studies Laboratory Data (last 24 hrs) 05/23/23 05/23/23 05:45 05:45 WBC 8.70 Hgb 10.0 L Hct 30.9 L Plt Count 350 Sodium 133 L Potassium 3.3 L BUN 12 Creatinine 1.15 Glucose 385 H Magnesium 1.7 Assessment and Plan - Plan Assessment: Chest pain rule ACS-history of CAD with two-vessel CABG 03/06 S/P CABG sternal wound infection-on IV antibiotics through PICC line at home Diabetes mellitus type 2insulin-dependent with hyperglycemia Chronic diastolic congestive heart failure Hypertension Hyperlipidemia History of CVA Plan: Chest pain rule ACS-history of CAD with two-vessel CABG 03/06 Ongoing chest pain, described as sharp nonradiating Recent CABG in February of this-year two-vessel Trend troponins, monitor on telemetry, cardiology consult Reports pain began about an hour after eating raw green onions and was associated with some nausea vomiting that time No further nausea/vomiting reported, no abdominal pain Continue PPI S/P CABG sternal wound infection-on IV antibiotics through PICC line at home On vancomycin 1 g daily and cefepime 2 g twice daily at home-continue PICC line is in place Continue home health Diabetes mellitus type 2insulin-dependent with hyperglycemia ACHS Accu-Chek, sliding scale insulin, continue 70/30 insulin Chronic diastolic congestive heart failure Continue Lasix, other home medications Does not appear grossly overloaded at this time, no shortness of breath noted Hypertension Hyperlipidemia History of CVA Continue home medications. DVT PPX: Lovenox Code status: Full Discharge Plan: Home Plan to discharge in: 24 Hours - Advance Directives Does patient have a Living Will: No Does patient have a Durable POA for Healthcare: No - Code Status/Comfort Care Code Status Assessed: Yes (full code) Critical Care: No Time Spent Managing Pts Care (In Minutes): 70
[2023-05-23] MEDS ORDERED: D50W 25 GM/50 ML SYRINGE IV PRN (13:56)
[2023-05-23] MEDS ORDERED: ONDANSETRON 4 MG/2 ML VIAL IV PRN (13:56)
[2023-05-23] MEDS ORDERED: GLUCAGON 1 MG/VIAL IM PRN (13:56)
[2023-05-23] MEDS: INSULIN REGULAR (HUMAN) 100 UNIT/ML SQ SCH ×3 (14:03→20:26)
[2023-05-23 14:37] VITALS: BMI 28.8
[2023-05-23] MEDS ORDERED: NA CHLORIDE 0.9% 250 ML ONE (14:57)
[2023-05-23] MEDS ORDERED: CEFEPIME 2 GM VIAL ONE (14:57)
[2023-05-23 15:30] VITALS: O2SAT 94
[2023-05-23] MEDS: MORPHINE 2 MG/ML SYR IV PRN ×2 (16:52→20:26)
[2023-05-23] MEDS: FUROSEMIDE 40 MG TABLET PO SCH (16:52)
[2023-05-23] MEDS: INSULIN 70/30 100 UNITS/ML SQ SCH (16:53)
[2023-05-23] MEDS: VANCOMYCIN 1.5 GM in NA CHLORIDE 0.9% 500 ML IVPB SCH (20:08)
[2023-05-23] MEDS ORDERED: ATORVASTATIN 80 MG TAB PO SCH (21:00)
[2023-05-24] MEDS: MORPHINE 2 MG/ML SYR IV PRN ×3 (00:55→12:59)
[2023-05-24] MEDS ORDERED: CEFEPIME 2 GM in NA CHLORIDE 0.9% 100 ML IV SCH ×2 (02:00→09:00)
[2023-05-24] MEDS ORDERED: METOPROLOL XL 25 MG TAB PO SCH (06:00)
[2023-05-24 07:19] LABS: Absolute Lymphocytes (CBC) 1.4 K/uL (0.7-4.9); Hematocrit 30.1 % (39.6-49.0); Lymphocytes % 24.5 % (15.3-44.8); MCV 84.4 fL (80-100); Platelets 387 thou/uL (152-406); RBC Red Blood Cell Count 3.56 M/uL (4.33-5.43)
[2023-05-24] MEDS: INSULIN REGULAR (HUMAN) 100 UNIT/ML SQ SCH ×2 (07:30→11:30)
[2023-05-24] MEDS: INSULIN 70/30 100 UNITS/ML SQ SCH (08:49)
[2023-05-24] MEDS: FUROSEMIDE 40 MG TABLET PO SCH (08:50)
[2023-05-24 08:52] VITALS: BP 140/60
[2023-05-24] MEDS ORDERED: ASPIRIN EC 81 MG TAB PO SCH (09:00)
[2023-05-24] MEDS ORDERED: ENOXAPARIN 40 MG/0.4 ML SQ SCH (09:00)
[2023-05-24] MEDS ORDERED: LOSARTAN POTASSIUM 50 MG TABLET PO SCH (09:00)
[2023-05-24] MEDS ORDERED: CLOPIDOGREL 75 MG TABLET PO SCH (09:00)
--- NOTE | 2023-05-24 09:21 | P.DS ---
Admission Date: 05/23/23 Discharge Date: 05/24/23 Disposition: ROUTINE DISCHARGE Discharge Condition: GOOD Reason for Admission: ACS rule out Consultations: Cardiology- Dr. Bonds Brief History of Present Illness: 58-year-old male with history of CAD, CABG in January of this year, CAD with stent placement and both August 2022 and May of 2022, insulin-dependent diabetes, hypertension, hyperlipidemia presents emergency department chief complaint of chest pain. He reports chest pain began last night about an hour after eating raw green onions, he also had an episode of vomiting at that time denies any abdominal pain. Reports he still having 10 out of 10 chest pain. Of note he was recently transferred from here to [facility] on 05/10/2023 for infected CABG sternal wound. During that admission he had incision and drainage/debridement performed. He was discharged on IV antibiotics vancomycin 1 g daily and cefepime 2 g twice daily, he has been receiving home health/IV antibiotics at home since he was discharged. He has stitches present to his sternal area that he is supposed to have removed in [place] on 05/26/2023. He was evaluated in the emergency department for chest pain his initial high- sensitivity troponin was 18.5 glucose 385 potassium 3.3 sodium 133 chloride 97. EKG without STEMI criteria chest x-ray showed mild CHF pattern. ED provider wishes to admit patient under observation for ACS rule. Hospital Course: Problem list Chest pain rule ACS-history of CAD with two-vessel CABG 03/06 S/P CABG sternal wound infection-on IV antibiotics through PICC line at home Diabetes mellitus type 2insulin-dependent with hyperglycemia Chronic diastolic congestive heart failure Hypertension Hyperlipidemia History of CVA Patient was admitted to the hospital for chest pain, he had a recent two-vessel CABG at [facility] in February of this year. His troponins trended negative, he was evaluated by cardiology who recommends outpatient stress test. He is stable for discharge at this time. Of note patient is on IV antibiotics through his PICC line with vancomycin 1 g once daily and cefepime 2 g twice daily for recent infected sternal wound secondary to CABG. he received antibiotics during his brief hospitalization and will continue them at discharge. Also noted to have wounds to lower extremities for which he follows with Dr. Lopez in wound healing. Recommend continue outpatient management. Vital Signs/Physical Exam: Temp Pulse Resp BP Pulse Ox 97.8 F 75 16 140/60 95 05/24/23 03:42 05/24/23 08:50 05/24/23 08:44 05/24/23 08:50 05/24/23 08:44 General: Alert, In no apparent distress, Oriented x3 HEENT: Atraumatic, PERRLA, EOMI Neck: Supple, JVD not distended Respiratory: Clear to auscultation bilaterally, Normal air movement Cardiovascular: Regular rate/rhythm, Normal S1 S2 Gastrointestinal: Normal bowel sounds, No tenderness Musculoskeletal: No tenderness Integumentary: Other (Midsternal wound well approximated with sutures no erythema or drainage. ) Neurological: Normal tone, Normal affect Laboratory Data at Discharge: WBC 5.70 thou/uL (4.3-10.9) 05/24/23 07:05 Hgb 9.8 g/dL (13.6-17.9) L 05/24/23 07:05 Hct 30.1 % (39.6-49.0) L 05/24/23 07:05 Plt Count 387 thou/uL (152-406) 05/24/23 07:05 Sodium 139 mEq/L (136-145) D 05/24/23 07:05 Potassium 3.0 mEq/L (3.5-5.1) L 05/24/23 07:05 BUN 9 mg/dL (7-18) 05/24/23 07:05 Creatinine 0.91 mg/dL (0.70-1.30) 05/24/23 07:05 Glucose 123 mg/dL (74-106) H 05/24/23 07:05 Magnesium 1.7 mg/dL (1.6-2.4) 05/23/23 05:45 Triglycerides 207 mg/dL (<150) H 05/24/23 07:05 Cholesterol 139 mg/dL (<200) 05/24/23 07:05 HDL Cholesterol 36 mg/dL (40-60) L 05/24/23 07:05 Cholesterol/HDL Ratio 3.86 05/24/23 07:05 Home Medications: Aspirin Chewable [Aspirin Chewable*] 81 mg PO DAILY 04/12/23 Atorvastatin Calcium [Lipitor] 80 mg PO DAILY 04/12/23 Clopidogrel Bisulfate [Plavix*] 75 mg PO DAILY 04/12/23 Furosemide [Lasix*] 40 mg PO BID 04/12/23 Isosorbide Mononitrate [Isosorbide Mononitrate ER] 30 mg PO DAILY 04/12/23 Magnesium Oxide [Mag 0X*] 400 mg PO BID 04/12/23 Metoprolol Tartrate 25 mg PO BID 04/12/23 Quetiapine Fumarate 150 mg PO BEDTIME 04/12/23 metOLazone [Metolazone] 5 mg PO DAILYPRN PRN 04/12/23 Hydrocodone 7.5/APAP 325 [[place] 7.5/325 mg*] 1 tab PO Q6H PRN #30 tab 04/14/23 Nystatin Powder [Mycostatin (Powder)*] 15 appl TOP BID #1 btl 04/14/23 Physician Discharge Instructions: Patient was admitted to the hospital for chest pain, he had a recent two-vessel CABG at [facility] in February of this year. His troponins trended negative, he was evaluated by cardiology who recommends outpatient stress test. He is stable for discharge at this time. Of note patient is on IV antibiotics through his PICC line with vancomycin 1 g once daily and cefepime 2 g twice daily for recent infected sternal wound secondary to CABG. he received antibiotics during his brief hospitalization and will continue them at discharge. Also noted to have wounds to lower extremities for which he follows with Dr. Lopez in wound healing. Recommend continue outpatient management. Diet: AHA Activity: Ad evelin Followup: Michael Grullon, DO [Primary Care Provider] - 1-2 Weeks Keyur Bonds MD [ACTIVE - CAN ADMIT] - 1 Week Time spent managing pt's care (in minutes): 30
[2023-05-24 09:23] VITALS: TEMP 97.6
--- NOTE | 2023-05-24 09:54 | P.CNS ---
Date of Consult: 05/23/23 Reason for Consult: R/o ACS Requesting Physician: Leonard Kincaid Chief Complaint: ACS rule out History of Present Illness: 58-year-old male with history of CAD, CABG in January of this year, CAD with stent placement and both August 2022 and May of 2022, insulin-dependent diabetes, hypertension, hyperlipidemia presents emergency department chief complaint of chest pain. He reports chest pain began last night about an hour after eating raw green onions, he also had an episode of vomiting at that time denies any abdominal pain. Reports he still having 10 out of 10 chest pain. Of note [facility]10/2023 for infected CABG sternal wound. During that admission he had incision and drainage/debridement performed. He was discharged on IV antibiotics vancomycin 1 g daily and cefepime 2 g twice daily, he has been receiving home health/IV antibiotics at home since he was discharged. He has stitches present to his sternal area that he is supposed to have removed in [place] on 05/26/2023. He was evaluated in the emergency department for chest pain his initial high- sensitivity troponin was 18.5 glucose 385 potassium 3.3 sodium 133 chloride 97. EKG without STEMI criteria chest x-ray showed mild CHF pattern. ED provider wishes to admit patient under observation for ACS rule. Allergies No Known Allergies Allergy (Verified 04/12/23 06:04) Home medications list reviewed: Yes Home Medications: Aspirin Chewable [Aspirin Chewable*] 81 mg PO DAILY 04/12/23 Atorvastatin Calcium [Lipitor] 80 mg PO DAILY 04/12/23 Clopidogrel Bisulfate [Plavix*] 75 mg PO DAILY 04/12/23 Furosemide [Lasix*] 40 mg PO BID 04/12/23 Isosorbide Mononitrate [Isosorbide Mononitrate ER] 30 mg PO DAILY 04/12/23 Magnesium Oxide [Mag 0X*] 400 mg PO BID 04/12/23 Metoprolol Tartrate 25 mg PO BID 04/12/23 Quetiapine Fumarate 150 mg PO BEDTIME 04/12/23 metOLazone [Metolazone] 5 mg PO DAILYPRN PRN 04/12/23 Hydrocodone 7.5/APAP 325 [[place] 7.5/325 mg*] 1 tab PO Q6H PRN #30 tab 04/14/23 Nystatin Powder [Mycostatin (Powder)*] 15 appl TOP BID #1 btl 04/14/23 - Past Medical/Surgical History Diabetic: Yes -: Hypertension -: Diabetes mellitus type 2 insulin dependent -: CAD with prior stent -: Hyperlipidemia -: Diabetic neuropathy -: Obesity -: Sleep apnea noncompliant -: CVA -: Chronic diastolic congestive heart failure -: Stent placement x5 -: back surgery -: ble vascular sx -: Appendectomy -: Multiple debridement left great toe -: cabg 02/03/23 Psychosocial/ Personal History: Patient is - Family History Father Medical History: Heart disease, Diabetes Mother Medical History: Heart disease - Social History Smoking Status: Unknown if ever smoked Alcohol use: No CD- Drugs: No Caffeine use: Yes Place of Residence: Home Review of Systems 10-point ROS is otherwise unremarkable Cardiovascular: As per HPI Physical Examination Temp Pulse Resp BP Pulse Ox 97.6 F 75 16 140/60 95 05/24/23 08:00 05/24/23 08:50 05/24/23 09:14 05/24/23 08:50 05/24/23 09:14 General: Alert, In no apparent distress, Oriented x3 HEENT: Atraumatic, Normocephalic Neck: Supple, 2+ carotid pulse no bruit, JVD not distended Respiratory: Clear to auscultation bilaterally, Normal air movement Cardiovascular: No edema, Other (sternal wound healing well, +sutures, to have appt with his [facility] home demonstrator Wed at [facility]) Capillary refill: <2 Seconds Gastrointestinal: Normal bowel sounds, Soft and benign Musculoskeletal: No clubbing Integumentary: Other (mild pallor, sternal incision, healing well, left santoro PAD, scabbing, improved from ulceration) Neurological: Normal speech, Normal tone Lymphatics: No axilla or inguinal lymphadenopathy External genitalia: Deferred Rectal: Deferred - Problems (1) Chest pain Current Visit: No Status: Acute Plan: Trend troponin, EKG prn pain, Telemetry, continue Aspirin, Plavix, Atorvastatin, Isosorb Follow up with own [employer] Tender as scheduled this week. F/u my office prn Qualifiers: Ischemic chest pain type: unspecified angina pectoris type (2) Hypertension Current Visit: No Status: Chronic Plan: Continue Metoprolol, Metolazone (3) Congestive heart failure due to high blood pressure Current Visit: Yes Status: Acute Plan: Continue furosemide, Metolazone, Magnesium, Low salt diet.
[2023-05-24] MEDS ORDERED: D10W 125 ML IV PRN (11:12)
[2023-05-24] MEDS: VANCOMYCIN 1.5 GM in NA CHLORIDE 0.9% 500 ML IVPB SCH (12:57)
[2023-05-24] MEDS ORDERED: HYDROCODONE/APAP 7.5/325 MG TAB PO ONE (13:00)
--- NOTE | 2023-05-25 13:50 | EKG ---
Test Date: 2023-05-23 Test Time: 08:23:16 Call Center Nurse: MILY MEASUREMENT RESULTS: Intervals: Rate: 90 MI: 148 QRSD: 88 QT: 376 QTc: 459 [place]: P: 61 MI: 148 QRS: 18 T: 30 INTERPRETIVE STATEMENTS: Normal sinus rhythm Possible Inferior infarct, age undetermined Cannot rule out Anterior infarct, age undetermined Abnormal ECG Compared to ECG 05/10/2023 08:13:56 No significant changes Electronically Signed On 05-25-23 13:41:57 [employer] by Keyur Bonds
== END 2023-05-24 16:22 | disposition home health service (06) ==
LOC: ER 08:14 → ERHOLD 11:40 → 2ND 14:18
PROVIDERS: ADMIT Hospitalist; ATTEND Hospitalist
DX: R07.9 Chest pain, unspecified (principal); I25.10 Atherosclerotic heart disease of native coronary artery without angina pectoris; I50.32 Chronic diastolic (congestive) heart failure; I10 Essential (primary) hypertension; E11.65 Type 2 diabetes mellitus with hyperglycemia; E78.5 Hyperlipidemia, unspecified; Z95.1 Presence of aortocoronary bypass graft; Z79.4 Long term (current) use of insulin; Z95.5 Presence of coronary angioplasty implant and graft; Z86.73 Personal history of transient ischemic attack (TIA), and cerebral infarction without residual deficits
CPT/HCPCS: 93005; 85025 ×2; 80048 ×2; 36415; 83735; 80061; 82947 ×7; 84484 ×2; 71045; 99285; J1815 ×5; J0692 ×2; J2270 ×6; J2405; J7050; J7040; G0378 ×4

== ENCOUNTER 2023-06-28 10:39 | Inpatient (IN) | payer OTHER ==
[2023-06-28] MEDS ORDERED: MORPHINE 4 MG/ML SYR ONE (10:50)
[2023-06-28 11:32] LABS: Absolute Lymphocytes (CBC) 1.8 K/uL (0.7-4.9); Hematocrit 29.2 % (39.6-49.0); Lymphocytes % 11.3 % (15.3-44.8); MCV 82.8 fL (80-100); MPV 8.2 fL (7.6-11.3); Platelets 256 thou/uL (152-406); RBC Red Blood Cell Count 3.53 M/uL (4.33-5.43)
[2023-06-28 11:44] LABS: Protime INR 1.09
[2023-06-28 11:48] LABS: Albumin 2.9 g/dL (3.4-5.0); Bilirubin Total 1.3 mg/dL (0.2-1.0); Potassium 3.2 mEq/L (3.5-5.1)
[2023-06-28] MEDS ORDERED: D10W 250 ML IV ONE (11:58)
--- NOTE | 2023-06-28 12:51 | RAD REPORT ---
EXAM DESCRIPTION: CT - Head C Spine Cap W Con - 06/28/2023 12:11 pm CLINICAL HISTORY: TRAUMA COMPARISON: Head C Spine Cap W Con dated 04/12/2023 TECHNIQUE: Head and cervical spine CT images were obtained without IV contrast. Chest, abdomen, and pelvis CT images were obtained following intravenous administration of 100 mL Isovue-300. Multiplanar reformats were generated and reviewed. All CT scans are performed using dose optimization technique as appropriate and may include automated exposure control or mA/KV adjustment according to patient size. FINDINGS: CT HEAD: No intracranial hemorrhage, mass effect, or edema. No evidence of acute territorial infarct. No midli ne shift or abnormal fluid collection. The ventricles are normal in caliber and configuration for age . Basal cisterns are patent. Mastoid aircells and paranasal sinuses are clear. No acute skull fractur e. CT CERVICAL SPINE: No acute cervical spine fracture or subluxation. Vertebral body heights are well maintained. Lobulate d lucent lesion along the posterior aspect of C3 vertebral body is stable and nonspecific, may repres ent an atypical hemangioma or bone cyst. Facet joints are normal in alignment. No hyperattenuating ca nal hematoma. Prevertebral and paraspinous soft tissues are unremarkable. CT CHEST: No pneumothorax, pulmonary contusion. Small to moderate layering right pleural effusion, new since th e prior exam. No mediastinal hematoma and the aorta and pulmonary arteries are unremarkable. Stable m ildly prominent mediastinal lymph nodes, largest present in the left prevascular space measuring 1.4 cm in short axis. Progressive lucent and sclerotic changes pertaining to the left aspect of the john al manubrium and within the head of the left clavicle, and the region of wire fixation. Overlying pro gressive soft tissue thickening. No displaced rib fracture or other significant bony finding. CT ABDOMEN/ PELVIS: No evidence of traumatic injury to solid abdominal viscera. Gallbladder and biliary tree are unremark able. No bowel injury or significant finding. No free air, free fluid or abnormal fat stranding. No u rinary bladder abnormality. No other significant bony finding. IMPRESSION: New small to moderate layering right pleural effusion. Left sternal manubrial progressive lucent and sclerotic changes, also present along the adjacent left clavicular head, may relate to poor or incomplete healing of sternal wire fixation. Superimposed inf ection cannot be entirely excluded.
[2023-06-28 13:00] LABS: Potassium 3.1 mEq/L (3.5-5.1)
[2023-06-28] MEDS ORDERED: D5W 1,000 ML IV ONE (13:41)
[2023-06-28] MEDS ORDERED: HYDROCODONE/APAP 7.5/325 MG TAB ONE (13:41)
--- NOTE | 2023-06-28 13:45 | EDPHYS ---
Physician Documentation [facility] Name: Tripp Webster Age: 58 yrs Sex: Male : 1965 Arrival Date: 06/28/2023 Time: 10:39 Bed 4 Private MD: ED Physician Umer Florentino HPI: 06/28 10:50 This 58 yrs old Male presents to ER via Unassigned with complaints of Hypoglycemia. rt 10:50 Patient presents to the ED with hypoglycemia. Patient reported took insulin this rt morning, was walking to the kitchen and lost consciousness. Last thing remembers is that was dark but he does not know what time this occurred at. He was found unconscious on the floor with some skin tears on the left side. His blood sugar was 38. Dextrose was given with improvement of mental status. No complaints of the back pain. Denies other acute complaints at this time, symptoms are moderate in severity, no other aggravating or alleviating factors.. Historical: - Allergies: 11:38 No Known Allergies; ko1 - PMHx: 11:38 CAD; depressive disorder; Diabetes - IDDM; GERD; Hypercholesterolemia; Hypertension; ko1 neuropathy; - PSHx: 11:38 cardiac stents; Coronary artery bypass graft; ko1 - Immunization history:: Adult Immunizations unknown. - Social history:: Smoking status: unknown. - Family history:: not pertinent. ROS: 10:50 Constitutional: Negative for fever, chills, and weight loss, Cardiovascular: Negative rt for chest pain, palpitations, and edema, Respiratory: Negative for shortness of breath, cough, wheezing, and pleuritic chest pain, Abdomen/GI: Negative for abdominal pain, nausea, vomiting, diarrhea, and constipation, MS/Extremity: Negative for injury and deformity, Skin: Negative for injury, rash, and discoloration, Neuro: Negative for headache, weakness, numbness, tingling, and seizure, Psych: Negative for depression, anxiety, suicide ideation, homicidal ideation, and hallucinations, 10:50 Back: Positive for pain at rest, pain with movement, 10:50 Neuro: Positive for altered mental status, loss of consciousness, Negative for rt Exam: 10:50 Constitutional: This is a well developed, well nourished patient who is awake, alert, rt and in no acute distress. Head/Face: Normocephalic, atraumatic. Chest/axilla: Normal chest wall appearance and motion. Nontender with no deformity. No lesions are appreciated. Cardiovascular: Regular rate and rhythm with a normal S1 and S2. No gallops, murmurs, or rubs. Normal PMI, no JVD. No pulse deficits. Respiratory: Lungs have equal breath sounds bilaterally, clear to auscultation and percussion. No rales, rhonchi or wheezes noted. No increased work of breathing, no retractions or nasal flaring. Abdomen/GI: Soft, non-tender, with normal bowel sounds. No distension or tympany. No guarding or rebound. No evidence of tenderness throughout. 10:50 Musculoskeletal/extremity: Skin tear noted on left lower extremity,. Vital Signs: 10:46 BP 125 / 56; Pulse 78; Resp 14; Temp 98; Pulse Ox 96% on R/A; ko1 11:00 BP 130 / 70; Pulse 68; Resp 16; Pulse Ox 99% ; ko1 MDM: 10:43 Patient medically screened. rt 13:46 Differential Diagnosis Hypoglycemia, syncope, dysrhythmia. Data reviewed: vital signs, rt nurses notes, lab test result(s), EKG, radiologic studies. Consideration of Admission/Observation Patient was admitted/placed on observation. Management of patient was discussed with the following: Hospitalist: Agrees to admit. I considered the following discharge prescriptions or medication management in the emergency department Medications were administered in the Emergency Department. See MAR. Independent interpretation of the following test(s) in the Emergency Department CT Scan: My interpretation is No intracranial hemorrhage syndrome interpretation of CT scan images. Test considered but Not performed: X-ray: CT scans performed, x-rays redundant. Counseling: I had a detailed discussion with the patient and/or guardian regarding the historical points, exam findings, and any diagnostic results supporting the discharge/admit diagnosis, lab results, radiology results, the need for further work-up and treatment in the hospital. 06/28 10:45 Order name: Blood Culture Adult (2) rt 06/28 10:45 Order name: CBC with Diff; Complete Time: 11:53 rt 06/28 10:45 Order name: CMP; Complete Time: 11:53 rt 06/28 10:45 Order name: Lactate w/ 2H reflex if indic.; Complete Time: 11:53 rt 06/28 10:45 Order name: Protime (+inr); Complete Time: 11:53 rt 06/28 10:45 Order name: Ptt, Activated; Complete Time: 11:53 rt 06/28 10:45 Order name: Urinalysis w/ reflexes; Complete Time: 14:10 rt 06/28 10:45 Order name: Troponin High Sensitivity; Complete Time: 11:53 rt 06/28 11:02 Order name: Glucose, Ancillary Testing; Complete Time: 11:53 EDMS 06/28 11:56 Order name: BMP; Complete Time: 13:04 rt 06/28 12:06 Order name: Glucose, Ancillary Testing; Complete Time: 13:04 EDMS 06/28 13:51 Order name: Glucose, Ancillary Testing; Complete Time: 14:10 EDMS 06/28 14:43 Order name: C-Peptide EDMS 06/28 14:43 Order name: C-Peptide EDMS 06/28 14:43 Order name: CBC with Automated Diff EDMS 06/28 14:43 Order name: CBC with Automated Diff EDMS 06/28 14:43 Order name: Comprehensive Metabolic Panel EDMS 06/28 14:43 Order name: Comprehensive Metabolic Panel EDMS 06/28 14:43 Order name: Insulin EDMS 06/28 14:43 Order name: Insulin EDMS 06/28 14:43 Order name: Lactic Dehydrogenase EDMS 06/28 14:43 Order name: Lactic Dehydrogenase EDMS 06/28 14:43 Order name: Miscellaneous Test Lab EDMS 06/28 14:43 Order name: Miscellaneous Test Lab EDMS 06/28 14:43 Order name: Protime (+INR) EDMS 06/28 14:43 Order name: Protime (+INR) EDMS 06/28 14:43 Order name: PTT, Activated Partial Thromb EDMS 06/28 14:43 Order name: PTT, Activated Partial Thromb EDMS 06/28 15:20 Order name: Glucose, Ancillary Testing EDMS 06/28 10:45 Order name: CT Traumagram (Head C Spine CAP W Con); Complete Time: 13:04 rt 06/28 10:45 Order name: EKG; Complete Time: 10:48 rt 06/28 10:45 Order name: Accucheck; Complete Time: 10:52 rt 06/28 10:45 Order name: Cardiac monitoring; Complete Time: 10:46 rt 06/28 10:45 Order name: EKG - Nurse/Tech; Complete Time: 10:52 rt 06/28 10:45 Order name: IV Saline Lock - Large Bore; Complete Time: 10:52 rt 06/28 10:45 Order name: Labs collected and sent; Complete Time: 11:27 rt 06/28 10:45 Order name: O2 Per Protocol; Complete Time: 10:46 rt 06/28 10:45 Order name: O2 Sat Monitoring; Complete Time: 10:46 rt 06/28 10:45 Order name: Vital Signs; Complete Time: 10:46 rt 06/28 13:46 Order name: Misc. Order: please feed patient; Complete Time: 13:56 rt EC:50 Rate is 70 beats/min. Rhythm is regular, Normal Sinus Rhythm with No ectopy. QRS [place] rt is Normal. UT interval is normal. QRS interval is normal. QT interval is normal. No Q waves. No ST changes noted. Administered Medications: 10:57 Drug: morphine IVP or IV 2 mg IVP once over 4 mins Route: IVP; Infused Over: 4 mins; ko1 Site: left antecubital; 11:55 CANCELLED (change in dose): d10 in [id number] ml IVP once rt 12:24 Drug: D10 in Water IVP 125 ml IVP once Route: IVP; Site: left antecubital; ko1 13:45 Drug: Hydrocodone-Acetaminophen PO (7.5 mg-325 mg) 1 tabs PO once Route: PO; ko1 13:56 Drug: D5W IV 1000 ml IV at 100 ml/hr continuous Route: IV; Rate: 100 ml/hr; Site: left ko1 antecubital; Disposition Summary: 06/28/23 13:45 Hospitalization Ordered Notes: Hospitalization Status: Observation rt Provider: Raven Hull rt Location: Telemetry/MedSurg (observation) rt Condition: Stable rt Problem: new rt Symptoms: have improved rt Bed/Room Type: Standard rt Room Assignment: 206(06/28/23 14:48) bd Diagnosis - Recurrent hypoglycemia rt - Syncope rt Forms: - Medication Reconciliation Form rt - SBAR form rt - Leadership Thank You Letter rt Signatures: Dispatcher [employer] EDDomonique Navarro Kathy, RN RN ko1 Umer Florentino MD MD rt Corrections: (The following items were deleted from the chart) 11:55 11:53 D10 in Water IVP 250 ml IVP once ordered. rt rt 14:48 13:45 rt bd
--- NOTE | 2023-06-28 13:45 | ER ---
Nurse's Notes [facility] Name: Tripp Webster Age: 58 yrs Sex: Male : 1965 Arrival Date: 06/28/2023 Time: 10:39 Bed 4 Private MD: Diagnosis: Recurrent hypoglycemia;Syncope Presentation: 06/28 10:46 Chief complaint: Chief complaint: EMS states: they were called for decreased LOC and ko1 low blood sugar. Blood sugar was 37 on arrival, 250 ml of D10 was administered and he came around and blood sugar increased to 116. 10:46 Method Of Arrival: EMS: [facility] ko1 10:46 Coronavirus screen: At this time, the client does not indicate any symptoms associated ko1 with coronavirus-19. Ebola Screen: No symptoms or risks identified at this time. Initial Sepsis Screen: Does the patient meet any 2 criteria? No. Patient's initial sepsis screen is negative. Does the patient have a suspected source of infection? No. Patient's initial sepsis screen is negative. Risk Assessment: Do you want to hurt yourself or someone else? Patient reports no desire to harm self or others. Onset of symptoms was June 28, 2023. Care prior to arrival: Cervical collar in place. Medication(s) given: D10 250 ml IV initiated. 22 GA, in the left antecubital area, Glucose check: 37. Care prior to arrival: Glucose check: 116. 10:46 Acuity: MIRIAM 2 ko1 Triage Assessment: 11:38 General: Appears in no apparent distress. uncomfortable, Behavior is calm, cooperative, ko1 appropriate for age. Pain: Complains of pain in left great toe amputation site. Historical: - Allergies: 11:38 No Known Allergies; ko1 - PMHx: 11:38 CAD; depressive disorder; Diabetes - IDDM; GERD; Hypercholesterolemia; Hypertension; ko1 neuropathy; - PSHx: 11:38 cardiac stents; Coronary artery bypass graft; ko1 - Immunization history:: Adult Immunizations unknown. - Social history:: Smoking status: unknown. - Family history:: not pertinent. Screenin:00 [facility] ED Fall Risk Assessment (Adult) History of falling in the last 3 months, ko1 including since admission Yes- single mechanical fall (1 pt) Confusion or Disorientation No (0 pts) Intoxicated or Sedated No (0 pts) Impaired Gait Yes (1 pt) Mobility Assist Device Used Yes (1 pt) Altered Elimination No (0 pt) Score/Fall Risk Level 3 or more points = High Risk Oriented to surroundings, Maintained a safe environment, Educated pt \T\ family on fall prevention, incl call for assistance when getting out of bed, Assessed \T\ reinforced patient's understanding of fall precautions, Provided non-skid footwear, Hourly rounding (assess needs \T\ fall precautionary measures) done, Used ambulatory aids as needed (educated on \T\ assisted with), Remained w/in arm's length of patient and in sight while toileting, Offered frequent toileting (1:1 observation), Remained with patient while ambulating, Utilized family, sitter, or virtual iuss acoustic analyst as indicated. Abuse screen: Denies threats or abuse. Denies injuries from another. Nutritional screening: No deficits noted. Tuberculosis screening: No symptoms or risk factors identified. Assessment: 11:00 General: Appears in no apparent distress. ill, Behavior is calm, cooperative, ko1 appropriate for age. Pain: Complains of pain in left first toe and Left first toenail. Neuro: No deficits noted. Cardiovascular: No deficits noted. Respiratory: No deficits noted. GI: No deficits noted. : No deficits noted. EENT: No deficits noted. Derm: No deficits noted. jessica to left great toe amputation. Derm: Bruising that is dark purple, bilateral upper ext, abrasion to LLE. Musculoskeletal: Amputation of left first toe. Vital Signs: 10:46 BP 125 / 56; Pulse 78; Resp 14; Temp 98; Pulse Ox 96% on R/A; ko1 11:00 BP 130 / 70; Pulse 68; Resp 16; Pulse Ox 99% ; ko1 ED Course: 10:42 Patient arrived in ED. sb4 10:43 Umer Florentino MD is Attending Physician. rt 10:45 Linda Kat RN is Primary Nurse. ko1 11:00 EKG done, by ED staff, reviewed by Umer Florentino MD. em1 11:00 Inserted saline lock: 22 gauge in right antecubital area, using aseptic technique. ko1 Blood collected. Maintain EMS IV. Dressing intact. Good blood return noted. Site clean \T\ dry. Gauge \T\ site: 22 left AC. 11:00 No provider procedures requiring assistance completed. ko1 11:00 Patient has correct armband on for positive identification. Fall risk band placed. Bed ko1 in low position. Call light in reach. Side rails up X2. Provided Education on: na. Client placed on continuous cardiac and pulse oximetry monitoring. NIBP monitoring applied. pelletizer on. Door closed. Noise minimized. Lights dimmed. Warm blanket given. Pillow given. 11:27 Blood Culture Adult (2) Sent. ko1 11:27 CBC with Diff Sent. ko1 11:27 CMP Sent. ko1 11:27 Lactate w/ 2H reflex if indic. Sent. ko1 11:27 Protime (+inr) Sent. ko1 11:27 Ptt, Activated Sent. ko1 11:27 Troponin High Sensitivity Sent. ko1 11:38 Triage completed. ko1 11:38 Arm band placed on right wrist. 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 12:12 CT Traumagram (Head C Spine CAP W Con) In Process Unspecified. EDMS 12:24 BMP Sent. ko1 13:45 Raven Hull MD is Hospitalizing Provider. rt 15:20 Patient admitted, IV remains in place. ko1 Administered Medications: 10:57 Drug: morphine IVP or IV 2 mg IVP once over 4 mins Route: IVP; Infused Over: 4 mins; ko1 Site: left antecubital; 11:55 CANCELLED (change in dose): d10 in [id number] ml IVP once rt 12:24 Drug: D10 in Water IVP 125 ml IVP once Route: IVP; Site: left antecubital; ko1 13:45 Drug: Hydrocodone-Acetaminophen PO (7.5 mg-325 mg) 1 tabs PO once Route: PO; ko1 13:56 Drug: D5W IV 1000 ml IV at 100 ml/hr continuous Route: IV; Rate: 100 ml/hr; Site: left ko1 antecubital; Medication: 11:00 VIS not applicable for this client. ko1 Outcome: 13:45 Decision to Hospitalize by Provider. rt 15:20 Admitted to Med/surg accompanied by tech, via stretcher, room 206, with chart, Report ko1 called to [facility] 15:20 Condition: stable 15:20 Instructed on the need for admit, 15:20 Patient left the ED. ko1 Signatures: Dispatcher [employer] EDYogesh Oreilly em1 Linda Kat RN RN ko1 Belkys Torres PA-C PA-C sb4 Umer Florentino MD MD rt Corrections: (The following items were deleted from the chart) 11:38 10:46 Chief complaint: ko1 ko1
[2023-06-28 14:03] LABS: Urine Bacteria None Seen /HPF (<20); Urine Mucus Slight /HPF (None Seen); Urine RBC <5 /HPF (None Seen)
[2023-06-28 14:05] LABS: Specific Gravity 1.028 (1.005-1.030); Urine Bilirubin NEGATIVE (Negative); Urine Blood Trace (Negative); Urine Clarity Clear (Clear); Urine Color Light-Yellow (Yellow); Urine Glucose NEGATIVE (Negative); Urine Protein 1+ (Negative); Urine Urobilinogen Normal (Normal); Urine pH 5.5 (5.0-7.0)
[2023-06-28] MEDS ORDERED: ONDANSETRON 4 MG/2 ML VIAL IV PRN (14:36)
[2023-06-28 15:40] VITALS: BMI 30.7
[2023-06-28] MEDS: D5 0.9 NS 1,000 ML IV SCH (15:51)
[2023-06-28] MEDS ORDERED: HYDROCODONE/APAP 7.5/325 MG TAB PO PRN (16:56)
[2023-06-28] MEDS: PIPER TAZO 3.375 GM in NA CHLORIDE 0.9% 100 ML IV SCH (17:23)
[2023-06-28] MEDS: MORPHINE 2 MG/ML SYR IV PRN (17:23)
[2023-06-28] MEDS: HYDROCODONE/APAP 10/325 TAB PO PRN (20:20)
[2023-06-28] MEDS: QUETIAPINE 100MG TAB PO SCH (20:21)
[2023-06-28] MEDS: FUROSEMIDE 40 MG TABLET PO SCH (20:22)
[2023-06-28] MEDS: NYSTATIN PWDR 100000 UNIT/GM TOP SCH (20:23)
[2023-06-28] MEDS: METOPROLOL TAR 25 MG TAB PO SCH (20:23)
[2023-06-28] MEDS ORDERED: QUETIAPINE FUMARATE 150 MG PO SCH (21:00)
[2023-06-29] MEDS: PIPER TAZO 3.375 GM in NA CHLORIDE 0.9% 100 ML IV SCH ×3 (00:06→16:44)
[2023-06-29] MEDS: MORPHINE 2 MG/ML SYR IV PRN ×5 (00:08→21:42)
[2023-06-29] MEDS: D5 0.9 NS 1,000 ML IV SCH ×2 (00:09→11:00)
[2023-06-29] MEDS: HYDROCODONE/APAP 10/325 TAB PO PRN ×3 (03:56→21:08)
[2023-06-29 05:46] LABS: Absolute Lymphocytes (CBC) 1.5 K/uL (0.7-4.9); Hematocrit 24.7 % (39.6-49.0); Lymphocytes % 17.1 % (15.3-44.8); MCV 83.8 fL (80-100); MPV 8.3 fL (7.6-11.3); Platelets 184 thou/uL (152-406); Protime INR 1.23; RBC Red Blood Cell Count 2.95 M/uL (4.33-5.43)
[2023-06-29 05:58] LABS: Albumin 2.2 g/dL (3.4-5.0); Bilirubin Total 1.3 mg/dL (0.2-1.0); Potassium 4.1 mEq/L (3.5-5.1); Protein, Total 5.6 g/dL (6.4-8.2)
[2023-06-29] MEDS ORDERED: INSULIN REGULAR (HUMAN) 100 UNIT/ML ONE (06:38)
[2023-06-29] MEDS ORDERED: INSULIN REGULAR (HUMAN) 100 UNIT/ML SQ ONE ×2 (06:42→14:54)
[2023-06-29] MEDS: ATORVASTATIN 80 MG TAB PO SCH (08:23)
[2023-06-29] MEDS: ISOSORBIDE MONO SR 30 MG TAB PO SCH (08:23)
[2023-06-29] MEDS: CLOPIDOGREL 75 MG TABLET PO SCH (08:23)
[2023-06-29] MEDS: NYSTATIN PWDR 100000 UNIT/GM TOP SCH ×2 (08:24→21:08)
[2023-06-29] MEDS: METOPROLOL TAR 25 MG TAB PO SCH ×2 (08:24→21:07)
[2023-06-29] MEDS: FUROSEMIDE 40 MG TABLET PO SCH ×2 (08:33→21:07)
[2023-06-29] MEDS ORDERED: POTASSIUM CL SA 10 MEQ TAB PO ONE (09:00)
[2023-06-29] MEDS: NA CHLORIDE 0.9% 1,000 ML IV SCH (14:34)
--- NOTE | 2023-06-29 14:43 | P.HP ---
Certification for Inpatient Patient admitted to: Observation With expected LOS: <2 Midnights Patient will require the following post-hospital care: None Practitioner: I am a practitioner with admitting privileges, knowledge of patient current condition, hospital course, and medical plan of care. Services: Services provided to patient in accordance with Admission requirements found in Title 42 Section 412.3 of the Code of Federal Regulations Patient History Date of Service: 06/28/23 Reason for admission: Hypoglycemia History of Present Illness: Patient is a 58-year-old gentleman who was recently at [facility] for acute renal failure. Patient had a toe amputation at that time. Patient is also recently had a coronary artery bypass graft a few months prior. Patient states that he had his circulation checked and he was told it was poor. They went ahead and proceeded with his amputation as his toe infection was not healing. He had his great toe amputated. Afterwards he went into renal failure. He ended up going onto dialysis. Patient was able to come off of dialysis because his kidneys improved. Patient was discharged home and he states that he has been doing well up until noticing that he was having chills. He felt bradycardic. Patient was found to be hypoglycemic. Patient was admitted to the hospital for observation. Currently patient's blood sugars are improved on IV fluids. Will continue with dextrose until his blood sugar stabilized. Once we get his blood sugar stable then we will readjust his home diabetic medications. Allergies No Known Allergies Allergy (Verified 04/12/23 06:04) Home Medications: Aspirin Chewable [Aspirin Chewable*] 81 mg PO DAILY 04/12/23 Atorvastatin Calcium [Lipitor] 80 mg PO DAILY 04/12/23 Clopidogrel Bisulfate [Plavix*] 75 mg PO DAILY 04/12/23 Furosemide [Lasix*] 40 mg PO BID 04/12/23 Isosorbide Mononitrate [Isosorbide Mononitrate ER] 30 mg PO DAILY 04/12/23 Magnesium Oxide [Mag 0X*] 400 mg PO BID 04/12/23 Metoprolol Tartrate 25 mg PO BID 04/12/23 Quetiapine Fumarate 150 mg PO BEDTIME 04/12/23 metOLazone [Metolazone] 5 mg PO DAILYPRN PRN 04/12/23 Hydrocodone 7.5/APAP 325 [[place] 7.5/325 mg*] 1 tab PO Q6H PRN #30 tab 04/14/23 Nystatin Powder [Mycostatin (Powder)*] 15 appl TOP BID #1 btl 04/14/23 - Past Medical/Surgical History Has patient received pneumonia vaccine in the past: Yes Diabetic: Yes -: Hypertension -: Diabetes mellitus type 2 insulin dependent -: CAD with prior stent -: Hyperlipidemia -: Diabetic neuropathy -: Obesity -: Sleep apnea noncompliant -: CVA -: Chronic diastolic congestive heart failure -: Stent placement x5 -: back surgery -: ble vascular sx -: Appendectomy -: Multiple debridement left great toe -: cabg 02/03/23 Psychosocial/ Personal History: Patient is - Family History Father Medical History: Heart disease, Diabetes Mother Medical History: Heart disease - Social History Smoking Status: Never smoker Alcohol use: No CD- Drugs: No Caffeine use: No Place of Residence: Home Review of Systems 10-point ROS is otherwise unremarkable Physical Examination - Vital Signs Temperature: 98.4 F Blood Pressure: 116/63 Pulse: 77 Respirations: 18 Pulse Ox (%): 95 - Physical Exam General: Alert, In no apparent distress, Oriented x3 HEENT: Atraumatic, PERRLA, Mucous membr. moist/pink, EOMI, Sclerae nonicteric Neck: Supple, 2+ carotid pulse no bruit, No LAD, Without JVD or thyroid abnormality Respiratory: Clear to auscultation bilaterally, Normal air movement Cardiovascular: Regular rate/rhythm, Normal S1 S2 Gastrointestinal: Normal bowel sounds, Soft and benign, Non-distended, No tenderness Musculoskeletal: No clubbing, No swelling, No tenderness Integumentary: Other (Amputation of the left great toe) Neurological: Sensation intact, Cranial nerves 3-12 intact, Abnormal strength, Abnormal tone Lymphatics: No axilla or inguinal lymphadenopathy Assessment & Plan - Problems (Diagnosis) (1) Hypoglycemia Current Visit: Yes Status: Acute (2) CVA (cerebral vascular accident) Current Visit: No Status: Acute (3) Chronic joint pain Current Visit: No Status: Acute (4) Congestive heart failure due to high blood pressure Current Visit: No Status: Acute (5) Depression Current Visit: No Status: Acute (6) Chronic venous hypertension w/ulcer and inflammation involv left side Current Visit: No Status: Chronic (7) Diabetes Current Visit: No Status: Chronic (8) Essential (primary) hypertension Current Visit: No Status: Chronic (9) Hyperlipidemia Current Visit: No Status: Chronic Qualifiers: - Plan Plan: 1. IV fluids to correct blood sugars. Monitor blood sugars every 2 hours. 2. Adjust insulin 3. Monitor renal function 4. Diet as tolerated 5. Anticipate discharge in the morning - Advance Directives Does patient have a Living Will: No Does patient have a Durable POA for Healthcare: No
--- NOTE | 2023-06-29 14:46 | P.PN ---
Subjective Date of Service: 06/29/23 Subjective: No new changes, No C/O voiced, Improving Review of Systems 10-point ROS is otherwise unremarkable Physical Examination - Vital Signs Temperature: 98.4 F Blood Pressure: 116/63 Pulse: 77 Respirations: 18 Pulse Ox (%): 95 - Physical Exam General: Alert, In no apparent distress, Oriented x3 HEENT: Atraumatic, PERRLA, EOMI Neck: Supple, JVD not distended Respiratory: Clear to auscultation bilaterally, Normal air movement Cardiovascular: Regular rate/rhythm, Normal S1 S2, No murmurs Gastrointestinal: Normal bowel sounds, Soft and benign, Non-distended, No tenderness Musculoskeletal: No clubbing, No swelling, No tenderness Integumentary: No rashes Neurological: Normal speech, Normal tone, Sensation intact, Cranial nerves 3-12 intact, Normal affect Lymphatics: No axilla or inguinal lymphadenopathy - Studies Medications List Reviewed: Yes Assessment & Plan - Problems (Diagnosis) (1) Hypoglycemia Current Visit: Yes Status: Acute (2) CVA (cerebral vascular accident) Current Visit: No Status: Acute (3) Chronic joint pain Current Visit: No Status: Acute (4) Congestive heart failure due to high blood pressure Current Visit: No Status: Acute (5) Depression Current Visit: No Status: Acute (6) Chronic venous hypertension w/ulcer and inflammation involv left side Current Visit: No Status: Chronic (7) Diabetes Current Visit: No Status: Chronic (8) Essential (primary) hypertension Current Visit: No Status: Chronic (9) Hyperlipidemia Current Visit: No Status: Chronic Qualifiers: - Plan Plan: 1. Blood sugars have improved. Patient complaining of some difficulty with swallowing. He wanted imaging studies to further evaluate. Currently hyperglycemic. Will do a CT scan and if this is negative we will feed him as tolerated. As long as his blood sugars are stable anticipate anticipate discharge in a.m. 2. Adjust hypoglycemic agents 3. Monitor renal function 4. CT scan pending 5. Continue with cardiac meds 6. Continue pain management 7. Continue with outpt wound care for the skin lesions Discharge Plan: Home Plan to discharge in: Greater than 2 days - Advance Directives Does patient have a Living Will: No Does patient have a Durable POA for Healthcare: No - Code Status/Comfort Care Code Status Assessed: Yes Code Status: Full Code Critical Care: No Time Spent Managing PTS Care (In Minutes): 35
[2023-06-29] MEDS ORDERED: GLUCAGON 1 MG/VIAL IM PRN (14:53)
[2023-06-29] MEDS ORDERED: D50W 25 GM/50 ML SYRINGE IV PRN (14:53)
[2023-06-29] MEDS ORDERED: D10W 125 ML IV PRN (15:18)
[2023-06-29] MEDS: QUETIAPINE 100MG TAB PO SCH (21:08)
[2023-06-30] MEDS: PIPER TAZO 3.375 GM in NA CHLORIDE 0.9% 100 ML IV SCH ×3 (00:34→17:00)
[2023-06-30 00:57] VITALS: O2SAT 94
[2023-06-30] MEDS: MORPHINE 2 MG/ML SYR IV PRN ×3 (01:21→12:24)
[2023-06-30] MEDS: HYDROCODONE/APAP 10/325 TAB PO PRN ×2 (03:17→19:31)
[2023-06-30] MEDS ORDERED: GLUCAGON 1 MG/VIAL IM PRN (08:30)
[2023-06-30] MEDS ORDERED: D50W 25 GM/50 ML SYRINGE IV PRN (08:30)
[2023-06-30] MEDS ORDERED: INSULIN 70/30 100 UNITS/ML SQ ONE ×2 (08:31→14:36)
[2023-06-30] MEDS: NYSTATIN PWDR 100000 UNIT/GM TOP SCH (09:00)
[2023-06-30] MEDS: NA CHLORIDE 0.9% 1,000 ML IV SCH (10:00)
[2023-06-30] MEDS: METOPROLOL TAR 25 MG TAB PO SCH ×2 (10:27→19:31)
[2023-06-30] MEDS: ATORVASTATIN 80 MG TAB PO SCH (10:27)
[2023-06-30] MEDS: CLOPIDOGREL 75 MG TABLET PO SCH (10:27)
[2023-06-30] MEDS: FUROSEMIDE 40 MG TABLET PO SCH ×2 (10:27→19:31)
[2023-06-30] MEDS: ISOSORBIDE MONO SR 30 MG TAB PO SCH (10:27)
--- NOTE | 2023-06-30 13:24 | RAD REPORT ---
EXAM DESCRIPTION: RAD - Barium Swallow Modified - 06/30/2023 12:04 pm CLINICAL HISTORY: Dysphagia COMPARISON: None. TECHNIQUE: The patient was given liquid, semi-solid and solid forms of barium. Lateral view fluorosc opic imaging was performed in conjunction with speech pathology service. Fluoro time: 1:08 minute. FINDINGS: No evidence of reynold aspiration. No laryngeal penetration. IMPRESSION: Normal modified barium swallow. Please refer to speech pathology report for additional d etails.
[2023-06-30] MEDS ORDERED: INSULIN REGULAR (HUMAN) 100 UNIT/ML SQ ONE (14:36)
[2023-06-30 16:33] VITALS: BP 126/60; TEMP 98.4
[2023-06-30] MEDS: QUETIAPINE 100MG TAB PO SCH (19:30)
--- NOTE | 2023-07-05 17:23 | EKG ---
Test Date: 2023-06-28 Test Time: 10:52:33 Enterprise Mobility Architect: CHRISTIANO MEASUREMENT RESULTS: Intervals: Rate: 70 NJ: 160 QRSD: 102 QT: 418 QTc: 451 Speed: P: 65 NJ: 160 QRS: 40 T: 87 INTERPRETIVE STATEMENTS: Normal sinus rhythm Cannot rule out Anterior infarct, age undetermined Abnormal ECG Compared to ECG 05/23/2023 08:23:16 No significant changes Electronically Signed On 07-05-23 17:01:05 SHIPPER RECEIVER by Keyur Bonds
== END 2023-06-30 20:18 | disposition home health service (06) | DRG 638 ==
LOC: ER 10:39 → 2ND 14:49 → OBSVTOIN 06-29 16:11
PROVIDERS: ADMIT Hospitalist; ATTEND Hospitalist
DX: E11.649 Type 2 diabetes mellitus with hypoglycemia without coma (principal); I50.32 Chronic diastolic (congestive) heart failure; I87.332 Chronic venous hypertension (idiopathic) with ulcer and inflammation of left lower extremity; I11.0 Hypertensive heart disease with heart failure; E11.40 Type 2 diabetes mellitus with diabetic neuropathy, unspecified; E11.65 Type 2 diabetes mellitus with hyperglycemia; G89.29 Other chronic pain; F32.A Depression, unspecified; K21.9 Gastro-esophageal reflux disease without esophagitis; E78.00 Pure hypercholesterolemia, unspecified; I25.10 Atherosclerotic heart disease of native coronary artery without angina pectoris; Z79.4 Long term (current) use of insulin; Z95.5 Presence of coronary angioplasty implant and graft; Z95.1 Presence of aortocoronary bypass graft; Z79.82 Long term (current) use of aspirin; Z86.73 Personal history of transient ischemic attack (TIA), and cerebral infarction without residual deficits; Z79.02 Long term (current) use of antithrombotics/antiplatelets; Z79.899 Other long term (current) drug therapy; Z89.412 Acquired absence of left great toe
CPT/HCPCS: 36415; 70450; 71260; 72125; 74177; 74230; 80048; 80053; 81001; 82947; 83036; 83525; 83605; 83615; 84484; 84681; 85025; 85610; 85730; 87040; 92610; 92611; 93005; 96374; 99285; G0378; J1815; J2270; J2543; J7030; J7042; Q9967

== ENCOUNTER 2023-08-11 06:12 | Observation (INO) | payer OTHER ==
[2023-08-11] MEDS ORDERED: CYCLOBENZAPRINE 10 MG TAB ONE (06:41)
[2023-08-11] MEDS ORDERED: NA CHLORIDE 0.9% 1,000 ML ONE ×2 (06:42→14:44)
[2023-08-11] MEDS ORDERED: MORPHINE 4 MG/ML SYR ONE (06:42)
[2023-08-11] MEDS: KETOROLAC 30 MG/ML INJ ONE ×2 (06:54)
[2023-08-11 06:58] LABS: Absolute Lymphocytes (CBC) 1.9 K/uL (0.7-4.9); Hematocrit 31.9 % (39.6-49.0); MCV 81.3 fL (80-100); MPV 7.5 fL (7.6-11.3); Platelets 374 thou/uL (152-406); RBC Red Blood Cell Count 3.93 M/uL (4.33-5.43)
--- NOTE | 2023-08-11 06:58 | RAD REPORT ---
EXAM DESCRIPTION: RAD - Knee Left 3 View - 08/11/2023 6:43 am CLINICAL HISTORY: knee pain COMPARISON: No comparisons FINDINGS/IMPRESSION: No acute fracture. No malalignment. Patellofemoral compartment spurring.
--- NOTE | 2023-08-11 06:59 | RAD REPORT ---
EXAM DESCRIPTION: RAD - Knee Right 3 View - 08/11/2023 6:43 am CLINICAL HISTORY: knee pain COMPARISON: No comparisons FINDINGS/IMPRESSION: No acute fracture. No malalignment. Mild patellofemoral compartment spurring.
--- NOTE | 2023-08-11 07:01 | RAD REPORT ---
EXAM DESCRIPTION: RAD - Chest Single View - 08/11/2023 6:43 am CLINICAL HISTORY: fall , hypotension COMPARISON: Chest Single View dated 05/23/2023; Chest Single View dated 05/10/2023; Chest Single Vie w dated 04/11/2023; Abdomen 1 View (KUB) dated 01/16/2023; Head C Spine Cap W Con dated 06/28/2023 FINDINGS: Lines: None. Lungs: Similar scarring and/or atelectasis in left lung base. Pleural: No significant pleural effusions or pneumothorax. Cardiac: Similar mild cardiomegaly. Mediastinum: Within normal limits. Bones: No acute fractures. Sternotomy. Remote rib fractures. Other: None IMPRESSION: Chronic changes without superimposed acute process.
--- NOTE | 2023-08-11 07:22 | RAD REPORT ---
EXAM DESCRIPTION: CT - Head C Spine Cap Wo Con - 08/11/2023 7:03 am CLINICAL HISTORY: Trauma, head and neck injury. Chest, abdomen and pelvis pain. fall, neck pain, COMPARISON: Head C Spine Cap W Con dated 06/28/2023; Head C Spine Cap W Con dated 04/12/2023; Chest Single View dated 05/23/2023; Chest Single View dated 01/16/2023 TECHNIQUE: CT head without contrast. CT cervical spine without contrast with coronal and sagittal reformatted images. CT chest, abdomen and pelvis without contrast with coronal and sagittal reformatted images of the [facility]. All CT scans are performed using dose optimization technique as appropriate and may include automated exposure control or mA/KV adjustment according to patient size. FINDINGS: CT HEAD WITHOUT CONTRAST: No intracranial hemorrhage, hydrocephalus or extra-axial fluid collection. No areas of brain edema o r midline shift. The paranasal sinuses and mastoids are clear. The calvarium is intact. CT CERVICAL SPINE WITHOUT CONTRAST: No fracture or subluxation. The prevertebral soft tissues are normal in thickness.Mild cervical spon dylosis. CT CHEST, ABDOMEN, PELVIS WITHOUT CONTRAST: NOTE: Lack of contrast is a significant limitation in the assessment of trauma related findings. Spec ifically, solid organ, vascular and bowel evaluation is significantly limited. Scarring and/or subsegmental atelectasis in the left lung base.No pneumothorax or pericardial/pleural fluid. Coronary artery calcifications and stents. No evidence of intra-abdominal visceral injury, free fluid or free air is seen within the above detai led limitations. No concerning pelvic findings. Left SFA stent. Atherosclerosis. Remote rib fractures. Prior sternotomy. As noted on the prior CT, there is lucency around the most dewitt perior sternotomy wire with sclerosis at manubrium. This could be from healing and/or infection. Ther e is some widening of the sternotomy along the lower aspect which would suggest dehiscence. This mila ures nearly 1 cm along the lower aspect of the sternum but is unchanged since 06/28/2023. Multilevel degenerative changes are present in the spine. IMPRESSION: 1. Negative for acute traumatic findings within the above detailed limitations. 2. Similar changes at the sternum and manubrium as noted above. Both infection and sternal dehiscence may be present as was seen on the CT from 06/28/2023. Findings are similar.
[2023-08-11 09:38] LABS: Protime INR 1.1
[2023-08-11 09:53] LABS: ALT/SGPT 15 U/L (16-61); Albumin 2.8 g/dL (3.4-5.0); Alkaline Phosphatase 126 U/L (45-117); BUN Blood Urea Nitrogen 21 mg/dL (7-18); Bicarbonate 28 mEq/L (21-32); Bilirubin Total 0.3 mg/dL (0.2-1.0); Glomerular Filtration Rate 60 ml/min (=/>90); Glucose Level 185 mg/dL (74-106); NT PRO-BNP 1228 pg/mL (<125); Protein, Total 6.8 g/dL (6.4-8.2); Sodium Level 139 mEq/L (136-145); Troponin High Sensitivity 14.9 pg/mL (<58.9)
[2023-08-11 09:57] LABS: AST/SGOT 7 U/L (15-37); Bilirubin Direct < 0.1 mg/dL (0-0.2); Bilirubin Indirect, Calculated ND mg/dL (0.2-0.8); Magnesium 1.9 mg/dL (1.6-2.4); Potassium 4.2 mEq/L (3.5-5.1)
--- NOTE | 2023-08-11 10:14 | EDPHYS ---
Physician Documentation [facility] Name: Tripp Webster Age: 58 yrs Sex: Male : 1965 Arrival Date: 08/11/2023 Time: 06:12 Bed 8 Private MD: ED Physician Dennys Yu HPI: 08/11 06:17 This 58 yrs old Male presents to ER via Unassigned with complaints of fall . sp4 07:10 VCE is 4-year-old male who presents with EMS after acute fall at home with associated sp4 neck pain back pain and head injury. Also complaining of bilateral knee pain. Patient states he fell at home somewhere around 3 AM. He states his knees buckled underneath him and he fell backwards. Patient complains of moderate pain in his lower back neck head bilateral knees. Historical: - Allergies: 06:17 No Known Allergies; vc1 - PMHx: 06:17 CAD; depressive disorder; Diabetes - IDDM; GERD; Hypercholesterolemia; Hypertension; vc1 neuropathy; Myocardial infarction; - PSHx: 06:17 cardiac stents; Coronary artery bypass graft; vc1 - Immunization history:: Client reports receiving the 2nd dose of the Covid vaccine, Flu vaccine is not up to date. - Social history:: Smoking status: Patient denies any tobacco usage or history of. - Family history:: not pertinent. ROS: 07:10 Constitutional: Negative for fever, chills, and weight loss, positive bilateral knee sp4 pain, positive lower back pain, positive neck pain, positive headache 07:10 All other systems are negative, Exam: 07:10 Constitutional: This is a well developed, well nourished patient who is awake, alert, sp4 and in no acute distress. Head/Face: Normocephalic, atraumatic. Eyes: Pupils equal round and reactive to light, extra-ocular motions intact. Lids and lashes normal. Conjunctiva and sclera are not injected. Cornea within normal limits. Periorbital areas with no swelling, redness, or edema. ENT: Nares patent. No nasal discharge, no septal abnormalities noted. Tympanic membranes are normal and external auditory canals are clear. Oropharynx with no redness, swelling, or masses, exudates, or evidence of obstruction, uvula midline. Mucous membranes moist. Neck: Trachea midline, no thyromegaly or masses palpated, and no cervical lymphadenopathy. Supple, full range of motion without nuchal rigidity, or vertebral point tenderness. Chest/axilla: Normal chest wall appearance and motion. Nontender with no deformity. No lesions are appreciated. Cardiovascular: Regular rate and rhythm with a normal S1 and S2. No gallops, murmurs, or rubs. Normal PMI, no JVD. No pulse deficits. Respiratory: Lungs have equal breath sounds bilaterally, clear to auscultation and percussion. No rales, rhonchi or wheezes noted. No increased work of breathing, no retractions or nasal flaring. Abdomen/GI: Soft, with normal bowel sounds. No distension or tympany. No guarding or rebound. No evidence of tenderness throughout. Back: No spinal tenderness. No costovertebral tenderness. Male : Normal genitalia with no discharge or lesions. Skin: Warm, dry with normal turgor. Normal color with no rashes, no lesions, and no evidence of cellulitis. MS/ Extremity: Pulses equal, no cyanosis. Neurovascular intact. Full, normal range of motion. Neuro: Awake and alert, GCS 15, oriented to person, place, time, and situation. Cranial nerves II-XII grossly intact. Motor strength 5/5 in all extremities. Sensory grossly intact. Psych: Awake, alert, with orientation to person, place and time. Behavior, mood, and affect are within normal limits 07:10 ECG was reviewed by the Attending Physician. EKG at 0 622 reveals sinus bradycardia at the rate of 57 Vital Signs: 06:19 BP 89 / 55; Pulse 57; Resp 18; Temp 97.8; Pulse Ox 96% ; Weight 92.99 kg; Height 5 ft. vc1 11 in. ; Pain 8/10; 07:10 BP 120 / 63; Pulse 77; Resp 18; Pulse Ox 97% ; Pain 8/10; iw 08:49 BP 91 / 61; Pulse 59; Resp 18; Pulse Ox 97% on R/A; ld1 09:23 BP 106 / 66 Supine; Pulse 75; iw 09:26 BP 118 / 75 Sitting; Pulse 68; iw 09:33 BP 104 / 65 Standing; Pulse 78; iw 06:19 Body Mass Index 28.59 (92.99 kg, 180.34 cm) vc1 06:19 Pain Scale: Adult vc1 07:10 Pain Scale: Adult iw MDM: 06:29 Patient medically screened. sp4 07:08 ED course: EXAM DESCRIPTION: RAD - Knee Left 3 View - 08/11/2023 6:43 am CLINICAL sp4 HISTORY: knee pain COMPARISON: No comparisons FINDINGS/IMPRESSION: No acute fracture. No malalignment. Patellofemoral compartment spurring. ED course: EXAM DESCRIPTION: RAD - Knee Right 3 View - 08/11/2023 6:43 am CLINICAL HISTORY: knee pain COMPARISON: No comparisons FINDINGS/IMPRESSION: No acute fracture. No malalignment. Mild patellofemoral compartment spurring. . ED course: EXAM DESCRIPTION: RAD - Chest Single View - 08/11/2023 6:43 am CLINICAL HISTORY: fall , hypotension COMPARISON: Chest Single View dated 05/23/2023; Chest Single View dated 05/10/2023; Chest Single View dated 04/11/2023; Abdomen 1 View (KUB) dated 01/16/2023; Head C Spine Cap W Con dated 06/28/2023 FINDINGS: Lines: None. Lungs: Similar scarring and/or atelectasis in left lung base. Pleural: No significant pleural effusions or pneumothorax. Cardiac: Similar mild cardiomegaly. Mediastinum: Within normal limits. Bones: No acute fractures. Sternotomy. Remote rib fractures. Other: None IMPRESSION: Chronic changes without superimposed acute process. . 07:13 Differential Diagnosis altered mental status, sepsis, flu, Fall acute, neck injury, sp4 back injury, Knee sprain . Data reviewed: vital signs, nurses notes, EMS record, lab test result(s), EKG, radiologic studies, CT scan, plain films. Transition of care: After a detail discussion of the patient's case, care is transferred to Dennys Yu MD. 10:12 ED course: Patient with several hypotensive episodes in ER. No infectious etiology. rn Patient most likely orthostatic hypotension given 1 week of vomiting and not eating or drinking much. No acute traumatic findings. Will observe in hospital for gentle hydration given history of congestive heart failure. 08/11 06:23 Order name: Basic Metabolic Panel; Complete Time: 10:05 sp4 08/11 06:23 Order name: CBC with Diff; Complete Time: 07:13 4 08/11 06:23 Order name: LFT's; Complete Time: 10:05 sp4 08/11 06:23 Order name: Magnesium; Complete Time: 10:05 sp4 08/11 06:23 Order name: NT PRO-BNP; Complete Time: 10:05 sp4 08/11 06:23 Order name: PT-INR; Complete Time: 10:05 sp4 08/11 06:23 Order name: Troponin HS; Complete Time: 10:05 sp4 08/11 13:58 Order name: Troponin High Sensitivity EDPA 08/11 13:58 Order name: Hemoglobin A1c EDPA 08/11 06:23 Order name: XRAY Chest (1 view); Complete Time: 07:13 sp4 08/11 06:23 Order name: CT Traumagram (Head C Spine CAP wo con); Complete Time: 07:24 sp4 08/11 06:28 Order name: Knee Right 3 View XRAY; Complete Time: 07:13 sp4 08/11 06:29 Order name: Knee Left 3 View XRAY; Complete Time: 07:13 sp4 08/11 13:58 Order name: Carotid Artery Bilateral EDPA 08/11 06:23 Order name: EKG; Complete Time: 06:24 sp4 08/11 06:23 Order name: Cardiac monitoring; Complete Time: 06:38 sp4 08/11 06:23 Order name: EKG - Nurse/Tech; Complete Time: 06:35 sp4 08/11 06:23 Order name: IV Saline Lock; Complete Time: 06:52 sp4 08/11 06:23 Order name: Labs collected and sent; Complete Time: 06:26 sp4 08/11 06:23 Order name: O2 Per Protocol; Complete Time: 06:26 sp4 08/11 06:23 Order name: O2 Sat Monitoring; Complete Time: 06:26 sp4 EC:10 Rate is 57 beats/min. Rhythm is regular, Sinus bradycardia. QRS Hawley is Normal. VA sp4 interval is normal. QRS interval is normal. QT interval is normal. No Q waves. T waves are Normal. No ST changes noted. Clinical impression: No evidence of ischemia. Interpreted by me. Reviewed by me. Administered Medications: 06:52 Drug: morphine IM 4 mg IM once Route: IM; Site: left deltoid; jw7 06:52 Drug: Cyclobenzaprine PO 10 mg PO once Route: PO; jw7 06:52 Drug: NS 0.9% IV 1000 ml IV at 1 bolus Per protocol; 1000 mL bolus Route: IV; Rate: 1 jw7 bolus; Site: right wrist; 07:24 Drug: Ketorolac IM 60 mg IM once Route: IM; Site: right gluteus; iw Disposition Summary: 08/11/23 10:13 Hospitalization Ordered Notes: Hospitalization Status: Observation rn Provider: Raven Hull rn Condition: Stable rn Problem: new rn Symptoms: have improved rn Bed/Room Type: Standard rn Location: [facility] ER HOLD(08/11/23 14:11) bd Room Assignment: ERHOLD-(08/11/23 14:11) bd Diagnosis - Fall on same level, unspecified rn - Syncope rn - Orthostatic hypotension rn Forms: - Medication Reconciliation Form rn - SBAR form rn - Leadership Thank You Letter rn Signatures: Dispatcher [employer] EDDomonique Navarro Irene RN RN iw Dennys Yu MD MD rn Calcote, Vanessa RN RN 1 Jimena Rivera RN RN jw7 Kenn Yap MD MD sp4 Corrections: (The following items were deleted from the chart) 14:11 10:13 Telemetry/MedSurg (observation) rn bd 14:11 10:13 rn bd
--- NOTE | 2023-08-11 10:14 | ER ---
Nurse's Notes [facility] Name: Tripp Webster Age: 58 yrs Sex: Male : 1965 Arrival Date: 08/11/2023 Time: 06:12 Bed 8 Private MD: Diagnosis: Fall on same level, unspecified;Syncope;Orthostatic hypotension Presentation: 08/11 06:14 Chief complaint: EMS states: We were called out for a fall that occurred around 3 am. vc1 He is unsure if he lost consciousness. He hit his head on the right side and is complaining of pain to the back of the neck. We placed him in a c collar and he complained that it made the pain worse and wanted us to take it off. We informed him of the possible consequences and patient stated he didn't care. 06:19 Coronavirus screen: Client denies travel out of the [place] in the last 14 days. At this vc1 time, the client does not indicate any symptoms associated with coronavirus-19. Ebola Screen: Patient negative for fever greater than or equal to 101.5 degrees Fahrenheit, and additional compatible Ebola Virus Disease symptoms Patient denies exposure to infectious person. Patient denies travel to an Ebola-affected area in the 21 days before illness onset. No symptoms or risks identified at this time. Initial Sepsis Screen: Does the patient meet any 2 criteria? No. Patient's initial sepsis screen is negative. Does the patient have a suspected source of infection? No. Patient's initial sepsis screen is negative. Initial Sepsis Screen: Does the patient meet any 2 criteria? Systolic BP < 90 mmHg. Risk Assessment: Do you want to hurt yourself or someone else? Patient reports no desire to harm self or others. Onset of symptoms was August 11, 2023 at 03:00. Care prior to arrival: Medication(s) given: ASA, 81 mg, x 4, zofran 4 mg, 200cc D10, 15 mg toradol, 2 tabs oral glucose. Activity prior to arrival: loss of consciousness, unknown if LOC. Mechanism of Injury: Fall. Transition of care: patient was not received from another setting of care. 06:19 Acuity: MIRIAM 2 vc1 06:19 Method Of Arrival: Ambulatory vc1 Triage Assessment: 06:22 General: Appears in no apparent distress. uncomfortable, slender, Behavior is restless, vc1 uncooperative. Pain: Complains of pain in low back area, right posterior aspect of neck and left posterior aspect of neck Pain does not radiate. Pain currently is 7 out of 10 on a pain scale. Quality of pain is described as sharp, Aggravated by movement Noted to be grimacing, moaning, restless. EENT: No deficits noted. No signs and/or symptoms were reported regarding the EENT system. Neuro: Level of Consciousness is awake, alert, obeys commands, Oriented to person, place, time, situation, Appropriate for age. Cardiovascular: No deficits noted. Respiratory: Airway is patent Respiratory effort is even, unlabored, Respiratory pattern is regular, symmetrical, Breath sounds are clear. GI: No deficits noted. No signs and/or symptoms were reported involving the gastrointestinal system. : No deficits noted. No signs and/or symptoms were reported regarding the genitourinary system. Derm: redness and inflammation to left side of forehead, scar to left santoro, scar down medial chest. Musculoskeletal: Reports pain in left base of the skull, right base of the skull and low back area Pain is 7 out of 10 on a pain scale. Historical: - Allergies: 06:17 No Known Allergies; vc1 - PMHx: 06:17 CAD; depressive disorder; Diabetes - IDDM; GERD; Hypercholesterolemia; Hypertension; vc1 neuropathy; Myocardial infarction; - PSHx: 06:17 cardiac stents; Coronary artery bypass graft; vc1 - Immunization history:: Client reports receiving the 2nd dose of the Covid vaccine, Flu vaccine is not up to date. - Social history:: Smoking status: Patient denies any tobacco usage or history of. - Family history:: not pertinent. Screenin:18 [facility] ED Fall Risk Assessment (Adult) History of falling in the last 3 months, vc1 including since admission No falls in past 3 months (0 pts) Confusion or Disorientation No (0 pts) Intoxicated or Sedated No (0 pts) Impaired Gait No (0 pts) Mobility Assist Device Used No (0 pt) Altered Elimination No (0 pt) Score/Fall Risk Level 0 - 2 = Low Risk Oriented to surroundings, Maintained a safe environment, Educated pt \T\ family on fall prevention, incl call for assistance when getting out of bed. Abuse screen: Denies threats or abuse. Nutritional screening: No deficits noted. Tuberculosis screening: No symptoms or risk factors identified. Assessment: 07:10 General: Appears in no apparent distress. Behavior is calm, cooperative. Pain: iw Complains of pain in neck and back and low back area. Neuro: Level of Consciousness is awake, alert, obeys commands, Oriented to person, place, time, situation. Cardiovascular: Patient's skin is warm and dry. Respiratory: Respiratory effort is even, unlabored, Respiratory pattern is regular. GI: Abdomen is non-distended. Derm: Skin is intact, is healthy with good turgor. Musculoskeletal: Range of motion: intact in all extremities. 08:19 Reassessment: Patient appears in no apparent distress at this time. Patient and/or iw family updated on plan of care and expected duration. Pain level reassessed. Patient is alert, oriented x 3, equal unlabored respirations, skin warm/dry/pink. 09:34 Reassessment: Patient appears in no apparent distress at this time. Patient and/or iw family updated on plan of care and expected duration. Pain level reassessed. Patient is alert, oriented x 3, equal unlabored respirations, skin warm/dry/pink. pt requesting more pain medication. Vital Signs: 06:19 BP 89 / 55; Pulse 57; Resp 18; Temp 97.8; Pulse Ox 96% ; Weight 92.99 kg; Height 5 ft. vc1 11 in. ; Pain 8/10; 07:10 BP 120 / 63; Pulse 77; Resp 18; Pulse Ox 97% ; Pain 8/10; iw 08:49 BP 91 / 61; Pulse 59; Resp 18; Pulse Ox 97% on R/A; ld1 09:23 BP 106 / 66 Supine; Pulse 75; iw 09:26 BP 118 / 75 Sitting; Pulse 68; iw 09:33 BP 104 / 65 Standing; Pulse 78; iw 06:19 Body Mass Index 28.59 (92.99 kg, 180.34 cm) vc1 06:19 Pain Scale: Adult vc1 07:10 Pain Scale: Adult iw ED Course: 06:14 Patient arrived in ED. vc1 06:17 Kenn Yap MD is Attending Physician. sp4 06:18 Arm band placed on right wrist. vc1 06:22 Triage completed. vc1 06:26 Patient has correct armband on for positive identification. Bed in low position. Call vc1 light in reach. Pulse ox on. NIBP on. 06:45 XRAY Chest (1 view) In Process Unspecified. EDMS 06:45 Knee Right 3 View XRAY In Process Unspecified. EDMS 06:45 Knee Left 3 View XRAY In Process Unspecified. EDMS 07:03 CT Traumagram (Head C Spine CAP wo con) In Process Unspecified. EDMS 07:10 Larisa Horton, RN is Primary Nurse. iw 07:34 Attending Physician role handed off by Kenn Yap MD rn 07:34 Dennys Yu MD is Attending Physician. rn 09:20 Lab(s) recollected, by me, sent to lab. Maintain EMS IV. Dressing intact. Good blood iw return noted. Gauge \T\ site: 20 R hand. 10:13 Raven Hull MD is Hospitalizing Provider. rn Administered Medications: 06:52 Drug: morphine IM 4 mg IM once Route: IM; Site: left deltoid; jw7 06:52 Drug: Cyclobenzaprine PO 10 mg PO once Route: PO; jw7 06:52 Drug: NS 0.9% IV 1000 ml IV at 1 bolus Per protocol; 1000 mL bolus Route: IV; Rate: 1 jw7 bolus; Site: right wrist; 07:24 Drug: Ketorolac IM 60 mg IM once Route: IM; Site: right gluteus; iw Medication: 06:26 VIS not applicable for this client. vc1 Outcome: 10:13 Decision to Hospitalize by Provider. rn 19:49 Patient left the ED. rv Signatures: Dispatcher [employer] Larisa Houston RN RN iw Nieto, Roman, MD MD rn Vicente, Ronaldo, RN RN rv Sims, Lauren, RN RN brett1 Kaycee Pan RN RN vc1 Jimena Rivera RN RN jw7 Kenn Yap MD MD sp4
[2023-08-11] MEDS ORDERED: ACETAMINOPHEN 500 MG TAB PO PRN (13:54)
[2023-08-11] MEDS: NA CHLORIDE 0.9% 1,000 ML IV SCH (14:00)
[2023-08-11 14:17] VITALS: BMI 28.5
[2023-08-11] MEDS ORDERED: KETOROLAC 30 MG/ML INJ ONE (14:43)
[2023-08-11] MEDS ORDERED: ONDANSETRON 4 MG/2 ML VIAL ONE (14:43)
[2023-08-11] MEDS ORDERED: MORPHINE 2 MG/ML SYR ONE ×3 (14:44→18:52)
[2023-08-11] MEDS: ONDANSETRON 4 MG/2 ML VIAL IV PRN (14:55)
[2023-08-11] MEDS: MORPHINE 2 MG/ML SYR IV PRN (14:55)
--- NOTE | 2023-08-11 15:23 | RAD REPORT ---
EXAM DESCRIPTION: - CP - 08/11/2023 3:10 pm CLINICAL HISTORY: syncope Headache, drowsiness COMPARISON: Head C Spine Mpr Wo Con dated 11/30/2020 TECHNIQUE: Real-time sonographic evaluation of both carotid systems was performed. Doppler interroga tion was performed with waveform tracing bilaterally. FINDINGS: Examination is technically limited. Normal high resistance waveforms are noted in both external carotid arteries. The common carotid jelly pérez and internal carotid arteries show normal low resistance waveforms. No significant plaque formation is seen. Peak systolic and end diastolic velocity values and the ICA/ CCA ratios are in the non-hemodynamically significant range. Antegrade flow seen in both vertebral arteries. IMPRESSION: No significant atherosclerotic changes noted. No evidence of significant carotid stenosi s. Examination has moderately technically limited. CTA or MRA could be obtained if further evaluation de sired clinically.
[2023-08-11 20:04] VITALS: BP 104/65; TEMP 97.8; O2SAT 97
--- NOTE | 2023-08-12 09:08 | P.SSS ---
Patient History Date of Service: 08/12/23 Reason for admission: Hypoglycemic History of Present Illness: Patient 58-year-old gentleman whose had a longstanding history of hypoglycemic episodes. He is also had falls. He states he has been taking less and less of his Lantus. He is also been on glyburide but he states he is not taking this. His hemoglobin A1c level has been 7. He came to the hospital after having a near syncopal event. He states that he did not pass out completely but he felt lightheaded. Patient was seen in the emergency room, his blood sugars are stable. His hemodynamics are stable. Patient is not orthostatic. Patient does have history of coronary artery disease and he recently had stents placed. He also recently had a stress test that did not show any abnormalities. He was advised to follow-up in 6 to 12 months. He does state that he is compliant with his Plavix. Patient will be admitted to the hospital for observation. Allergies No Known Allergies Allergy (Verified 04/12/23 06:04) Home Medications: Aspirin Chewable [Aspirin Chewable*] 81 mg PO DAILY 04/12/23 Atorvastatin Calcium [Lipitor] 80 mg PO DAILY 04/12/23 Clopidogrel Bisulfate [Plavix*] 75 mg PO DAILY 04/12/23 Furosemide [Lasix*] 40 mg PO BID 04/12/23 Isosorbide Mononitrate [Isosorbide Mononitrate ER] 30 mg PO DAILY 04/12/23 Magnesium Oxide [Mag 0X*] 400 mg PO BID 04/12/23 Quetiapine Fumarate 150 mg PO BEDTIME 04/12/23 metOLazone [Metolazone] 5 mg PO DAILYPRN PRN 04/12/23 Nystatin Powder [Mycostatin (Powder)*] 15 appl TOP BID #1 btl 04/14/23 Amox/Clavulanate [Augmentin 875-125 Tab*] 1 each PO BID #14 tab 06/30/23 Spironolactone [Aldactone*] 25 mg PO DAILY #30 tab 06/30/23 Hydrocodone 10/APAP 325 [[place] [address]*] 1 tab PO Q6H PRN #20 tab 08/11/23 Insulin 70/30 NPH/Reg Human [Novolin 70/30*] 20 unit SQ BIDAC #2 vial 02/28/24 dilTIAZem HCL [Cardizem] 30 mg PO BID #60 tab 08/11/23 predniSONE [Deltasone] 20 mg PO DAILY #5 tab 08/11/23 - Past Medical/Surgical History Has patient received pneumonia vaccine in the past: Yes Diabetic: Yes -: Hypertension -: Diabetes mellitus type 2 insulin dependent -: CAD with prior stent -: Hyperlipidemia -: Diabetic neuropathy -: Obesity -: Sleep apnea noncompliant -: CVA -: Chronic diastolic congestive heart failure -: Stent placement x5 -: back surgery -: ble vascular sx -: Appendectomy -: Multiple debridement left great toe -: cabg 02/03/23 Psychosocial/ Personal History: Patient is - Family History Father -: Heart disease, Diabetes Mother -: Heart disease - Social History Smoking Status: Never smoker Alcohol use: No CD- Drugs: No Caffeine use: No Review of Systems 10-point ROS is otherwise unremarkable Physical Examination - Vital Signs Temperature: 97.8 F Blood Pressure: 104/65 Pulse: 78 Respirations: 18 Pulse Ox (%): 100 - Physical Exam General: Alert, In no apparent distress, Oriented x3 HEENT: Atraumatic, PERRLA, Mucous membr. moist/pink, EOMI, Sclerae nonicteric Neck: Supple, 2+ carotid pulse no bruit, No LAD, Without JVD or thyroid abnormality Respiratory: Clear to auscultation bilaterally, Normal air movement Cardiovascular: Regular rate/rhythm, Normal S1 S2, No murmurs Gastrointestinal: Normal bowel sounds, Soft and benign, Non-distended, No tenderness Musculoskeletal: No clubbing, No swelling, No tenderness Integumentary: No rashes Neurological: Normal gait, Normal speech, Normal strength at 5/5 x4 extr, Normal tone, Sensation intact, Cranial nerves 3-12 intact, Normal affect Lymphatics: No axilla or inguinal lymphadenopathy - Studies Laboratory Data (last 24 hrs) 08/11/23 08/11/23 09:20 09:20 PT 12.1 INR 1.10 Sodium 139 Potassium 4.2 BUN 21 H Creatinine 1.35 H Glucose 185 H Magnesium 1.9 Total Bilirubin 0.3 AST 7 L ALT 15 L Alkaline Phosphatase 126 H Treatment Summary: Patient was admitted to the hospital for observation. His troponins remain negative. His hemodynamics remained stable and he did not have any arrhythmias. Patient has had extensive cardiac workup and multiple interventions in the past. Recent cardiac workup was unremarkable. Patient has had issues with his blood sugars dropping down. We did advise him to make sure he is not taking his glyburide and to decrease his insulin 70/30 to 10 units in the morning and 10 at night. I gave him my information to call me if his blood sugars are labile. Carotid Dopplers were negative. At this time, patient is clinically stable for discharge and he needs to continue taking his home medications but he needs to stop his glyburide and decrease his 70/30 to 10 units in the morning and 10 at night. He does have some issues with chronic pain. Ordered him some prednisone for inflammation as well as hydrocodone for pain. I told him not to take this unless he has someone with him. And he needs to make sure he is resting so he does not fall down. He needs to have a rollator with a seat that he can sit on if he is walking and he feels like he is going to fall. He needs to see a neurologist for outpatient workup as well. At this time, patient stable for discharge home. - Disposition Disposition: ROUTINE DISCHARGE Condition: GOOD Patient Discharge Instructions: -DC IV and DC home. -Follow-up with PCP in 1 to 2 weeks. -Follow-up with Cardiology and Neurology in 1 to 2 weeks. -Please call Dr. Hull at [phone] if any questions regarding hospital stay. -Please call nursing station at [phone] if any nursing or medication questions. - Return to the emergency room if symptoms worsen Diet: ADA Activity: Fall precautions Critical Care: No Time Spent Managing Pts Care (In Minutes): 70
--- NOTE | 2023-08-12 15:27 | EKG ---
Test Date: 2023-08-11 Test Time: 06:22:18 Candy Feeder: NARINDER MEASUREMENT RESULTS: Intervals: Rate: 57 [place]: 166 QRSD: 96 QT: 466 QTc: 453 [place]: P: 64 [place]: 166 QRS: 28 T: 74 INTERPRETIVE STATEMENTS: Sinus bradycardia Otherwise normal ECG Compared to ECG 06/28/2023 10:52:33 Sinus rhythm no longer present Myocardial infarct finding no longer present Electronically Signed On 08-12-23 15:24:41 PEANUT SHELLER by Keyur Bonds
== END 2023-08-11 20:49 | disposition home or self-care (01) ==
LOC: ER 06:12 → ERHOLD 13:54
PROVIDERS: ADMIT Hospitalist; ATTEND Hospitalist
DX: E11.649 Type 2 diabetes mellitus with hypoglycemia without coma (principal); I25.10 Atherosclerotic heart disease of native coronary artery without angina pectoris; G89.29 Other chronic pain; I10 Essential (primary) hypertension; F32.A Depression, unspecified; I25.2 Old myocardial infarction; K21.9 Gastro-esophageal reflux disease without esophagitis; I95.1 Orthostatic hypotension; R55 Syncope and collapse; E66.9 Obesity, unspecified; M25.562 Pain in left knee; M25.561 Pain in right knee; M54.2 Cervicalgia; M54.50 Low back pain, unspecified; W18.39XA Other fall on same level, initial encounter; Y93.9 Activity, unspecified; Y92.019 Unspecified place in single-family (private) house as the place of occurrence of the external cause; Z91.81 History of falling; Z95.5 Presence of coronary angioplasty implant and graft; Z79.82 Long term (current) use of aspirin; Z79.4 Long term (current) use of insulin; Z86.73 Personal history of transient ischemic attack (TIA), and cerebral infarction without residual deficits
CPT/HCPCS: 93005; 85025; 80048; 36415; 83735; 85610; 80076; 83036; 84484 ×2; 83880; 70450; 71250; 72125; 71045; 73562 ×2; 93880; J2270 ×3; J2405; J7030 ×2; G0378

== ENCOUNTER 2023-09-03 17:30 | Observation (INO) | payer OTHER ==
[2023-09-03] MEDS ORDERED: NA CHLORIDE 0.9% 1,000 ML ONE ×2 (17:40→18:12)
[2023-09-03 18:08] LABS: Absolute Eosinophils 0.1 K/uL (0-0.5); Absolute Monocytes 0.6 K/uL (0.1-1.3); Absolute Neutrophil 4.1 K/uL (1.8-8.0); Basophils % 0.6 % (0-1.3); Eosinophils % 1.1 % (0-4.4); Hematocrit 21.6 % (39.6-49.0); Hemoglobin 7.1 g/dL (13.6-17.9); MCH 26.5 pg (27.0-35.0); MCHC 32.7 g/dL (32.0-36.0); MPV 6.8 fL (7.6-11.3); Monocytes % 9.6 % (3.3-12.3); Neutrophils % 70.7 % (41.7-73.7); Nucleated Red Blood Cells % 0.2 % (0-0); Platelets 225 thou/uL (152-406); RBC Red Blood Cell Count 2.67 M/uL (4.33-5.43); Red Cell Distribution Width 16.5 % (12.1-15.2)
[2023-09-03 18:10] LABS: PT Prothrombin Time 14.2 SECONDS (9.5-12.5); Protime INR 1.3
[2023-09-03] MEDS ORDERED: dexAMETHasone 10 MG/ML VIAL ONE (18:12)
[2023-09-03] MEDS ORDERED: ONDANSETRON 4 MG/2 ML VIAL ONE (18:12)
[2023-09-03] MEDS ORDERED: FENTANYL CITR 100 MCG/2 ML ONE (18:12)
[2023-09-03 18:28] LABS: AST/SGOT 7 U/L (15-37); Albumin 1.8 g/dL (3.4-5.0); Albumin/Globulin Ratio 0.7 (1.1-1.8); Alkaline Phosphatase 77 U/L (45-117); Anion Gap 7.3 mEq/L (5.0-15.0); BUN Blood Urea Nitrogen 18 mg/dL (7-18); Bicarbonate 19 mEq/L (21-32); Bilirubin Total 0.2 mg/dL (0.2-1.0); Globulin 2.6 g/dL (2.3-3.5); Glomerular Filtration Rate 86 ml/min (=/>90); Glucose Level 64 mg/dL (74-106); Lipase 15 U/L (13-75); NT PRO-BNP 652 pg/mL (<125); Protein, Total 4.4 g/dL (6.4-8.2); Sodium Level 149 mEq/L (136-145); Troponin High Sensitivity 9.5 pg/mL (<58.9)
[2023-09-03 18:34] LABS: ALT/SGPT < 10 U/L (16-61); Bilirubin Direct < 0.1 mg/dL (0-0.2); Bilirubin Indirect, Calculated ND mg/dL (0.2-0.8)
[2023-09-03 18:44] LABS: Magnesium 0.9 mg/dL (1.6-2.4); Potassium 2.3 mEq/L (3.5-5.1)
--- NOTE | 2023-09-03 18:48 | RAD REPORT ---
EXAM DESCRIPTION: RAD - Chest Single View - 09/03/2023 6:20 pm CLINICAL HISTORY: COUGH Chest pain. COMPARISON: Chest Single View dated 08/11/2023; Chest Single View dated 05/23/2023; Chest Single View dated 05/10/2023; Chest Single View dated 04/11/2023 FINDINGS: Portable technique limits examination quality. Mild interstitial pulmonary edema. The heart is moderately enlarged. No displaced fractures.Sternotom y wires. IMPRESSION: Mild CHF.
--- NOTE | 2023-09-03 19:00 | RAD REPORT ---
EXAM DESCRIPTION: CT - Head C Spine Cap Wo Con - 09/03/2023 6:31 pm CLINICAL HISTORY: Trauma, head and neck injury. Chest, abdomen and pelvis pain. PAIN COMPARISON: Head C Spine Cap Wo Con dated 08/11/2023; Head C Spine Cap W Con dated 06/28/2023; Head C Spine Cap W Con dated 04/12/2023 TECHNIQUE: CT head without contrast. CT cervical spine without contrast with coronal and sagittal reformatted images. CT chest, abdomen and pelvis without contrast with coronal and sagittal reformatted images of the [facility]. All CT scans are performed using dose optimization technique as appropriate and may include automated exposure control or mA/KV adjustment according to patient size. FINDINGS: CT HEAD WITHOUT CONTRAST: No intracranial hemorrhage, hydrocephalus or extra-axial fluid collection. No areas of brain edema o r midline shift. The paranasal sinuses and mastoids are clear. The calvarium is intact. Mild vertebral atherosclerosis . CT CERVICAL SPINE WITHOUT CONTRAST: No fracture or subluxation. The prevertebral soft tissues are normal in thickness. CT CHEST, ABDOMEN, PELVIS WITHOUT CONTRAST: NOTE: Lack of contrast is a significant limitation in the assessment of trauma related findings. Spec ifically, solid organ, vascular and bowel evaluation is significantly limited. The lungs are clear.No pneumothorax or pericardial/pleural fluid. No evidence of intra-abdominal visceral injury, free fluid or free air is seen within the above detai led limitations. No concerning pelvic findings. No fractures. IMPRESSION: Negative for acute traumatic findings within the above detailed limitations.
[2023-09-03 19:07] LABS: Anion Gap 6.4 mEq/L (5.0-15.0); Magnesium 1.6 mg/dL (1.6-2.4); Potassium 3.4 mEq/L (3.5-5.1)
--- NOTE | 2023-09-03 19:21 | ER ---
Nurse's Notes [facility] Name: Tripp Webster Age: 58 yrs Sex: Male : 1965 Arrival Date: 09/03/2023 Time: 17:30 Bed 7 Private MD: Diagnosis: Hypotension, unspecified;Hypoglycemia, unspecified;Hypokalemia;Dehydration Presentation: 09/02 17:37 Chief complaint: EMS states: "toned out for hypotension, 75/34, and hypoglycemia, bgl mb9 34. Gave 20 g oral glucose and 1 liter 0.9% NS via 20 g to right FA. BGL now 81". Coronavirus screen: Vaccine status: Patient reports receiving the 2nd dose of the covid vaccine. Ebola Screen: No symptoms or risks identified at this time. Initial Sepsis Screen: Does the patient meet any 2 criteria? No. Patient's initial sepsis screen is negative. Does the patient have a suspected source of infection? No. Patient's initial sepsis screen is negative. Risk Assessment: Do you want to hurt yourself or someone else? Patient reports no desire to harm self or others. Onset of symptoms was September 03, 2023. 17:37 Method Of Arrival: EMS: [facility] mb9 17:37 Acuity: MIRIAM 2 mb9 Triage Assessment: 17:40 General: Appears uncomfortable, Behavior is cooperative. Pain: Complains of pain in mb9 "entire body". 17:40 EENT: No signs and/or symptoms were reported regarding the EENT system. Neuro: Menjivar mb9 Agitation-Sedation Scale (RASS): 0 - Alert and Calm Level of Consciousness is awake, obeys commands, lethargic, Oriented to person, place, time, situation, Appropriate for age. Cardiovascular: Denies chest pain, Heart tones S1 S2 present Patient's skin is warm and dry. Respiratory: Airway is patent Respiratory effort is even, unlabored, Respiratory pattern is regular, symmetrical, Breath sounds are clear bilaterally. GI: Abdomen is round non-distended, Bowel sounds present X 4 quads. Abd is soft and non tender X 4 quads. : No signs and/or symptoms were reported regarding the genitourinary system. Derm: Skin is intact, Skin is clammy, Skin is pale, Skin temperature is cool. Musculoskeletal: Range of motion: intact in all extremities. Historical: - Allergies: 17:38 No Known Allergies; mb9 - PMHx: 17:38 CAD; depressive disorder; Diabetes - IDDM; GERD; Hypercholesterolemia; Hypertension; mb9 Myocardial infarction; neuropathy; - PSHx: 17:38 cardiac stents; Coronary artery bypass graft; mb9 - Immunization history:: Adult Immunizations up to date. - Social history:: Smoking status: Patient denies any tobacco usage or history of. Screenin:39 [facility] ED Fall Risk Assessment (Adult) History of falling in the last 3 months, mb9 including since admission No falls in past 3 months (0 pts) Confusion or Disorientation Yes (5 pts) Intoxicated or Sedated No (0 pts) Impaired Gait No (0 pts) Mobility Assist Device Used No (0 pt) Altered Elimination No (0 pt) Score/Fall Risk Level 0 - 2 = Low Risk Oriented to surroundings, Maintained a safe environment, Educated pt \\T\\ family on fall prevention, incl call for assistance when getting out of bed. Abuse screen: Denies threats or abuse. Nutritional screening: No deficits noted. Tuberculosis screening: No symptoms or risk factors identified. Assessment: 18:10 Reassessment: see triage assessment. mb9 18:48 Reassessment: Patient is alert, oriented x 3, equal unlabored respirations, skin aa5 warm/dry/pink. Vital Signs: 17:37 BP 100 / 49; Pulse 85; Resp 16; Temp 97.4; Pulse Ox 100% ; Weight 106.59 kg; Height 5 mb9 ft. 11 in. ; Pain 10/10; 18:10 BP 99 / 56; Pulse 79; Resp 15; Pulse Ox 100% on R/A; mb9 18:57 BP 121 / 74; Pulse 78; Resp 15; Pulse Ox 100% on R/A; hb 19:02 BP 121 / 74; Pulse 74; Resp 16; Pulse Ox 100% on R/A; mb9 21:01 BP 119 / 64; Pulse 83; Resp 18; Temp 97.5(TE); Pulse Ox 100% on R/A; km8 17:37 Body Mass Index 32.78 (106.59 kg, 180.34 cm) mb9 17:37 Pain Scale: Adult mb9 ED Course: 17:36 Patient arrived in ED. mb9 17:36 Arm band placed on. mb9 17:37 Naveen Cunningham MD is Attending Physician. [facility] 17:38 Triage completed. mb9 17:39 Toma Ryan, KAMILLA is Primary Nurse. mb9 17:39 Placed in gown. Bed in low position. Call light in reach. Side rails up X 1. Client mb9 placed on continuous cardiac and pulse oximetry monitoring. NIBP monitoring applied. school lunch monitor on. Door closed. Noise minimized. Warm blanket given. 17:39 Maintain EMS IV. Dressing intact. Good blood return noted. Site clean \\T\\ dry. Gauge \\T\\ mb 9 site: 20 g right FA. 17:42 EKG done, by ED staff, reviewed by Naveen Cunningham MD. mb9 18:08 Lipase Sent. mb9 18:08 Basic Metabolic Panel Sent. mb9 18:08 CBC with Diff Sent. mb9 18:08 LFT's Sent. mb9 18:08 Magnesium Sent. mb9 18:08 NT PRO-BNP Sent. mb9 18:08 PT-INR Sent. mb9 18:08 Troponin HS Sent. mb9 18:08 Inserted saline lock: 22 gauge in right antecubital area, using aseptic technique. mb9 18:10 No provider procedures requiring assistance completed. mb9 18:22 XRAY Chest (1 view) In Process Unspecified. EDMS 18:31 CT Traumagram (Head C Spine CAP wo con) In Process Unspecified. EDMS 18:48 Repeat lab(s) drawn. by mi, sent to lab. aa5 18:50 Chem 7: repeat per MD Sent. mb9 18:50 Magnesium: repeat per MD Sent. mb9 19:02 Report given to Chanel RN. mb9 19:20 Oscar Chapa is Hospitalizing Provider. [facility] 20:58 Provided Education on: admission process. km8 20:58 Patient admitted, IV remains in place. km8 Administered Medications: 17:55 Drug: NS 0.9% IV 1000 ml IV at 1 bolus Per protocol; 1000 mL bolus Route: IV; Rate: 1 mb9 bolus; Site: right antecubital; 18:50 Follow up: Response: No adverse reaction; IV Status: Completed infusion mb9 18:12 Drug: Ondansetron IVP 4 mg IVP once; over 2 minutes Route: IVP; Site: right forearm; mb9 18:50 Follow up: Response: No adverse reaction mb9 18:16 Drug: Decadron - Dexamethasone IVP 10 mg IVP once Route: IVP; Site: right forearm; mb9 18:50 Follow up: Response: No adverse reaction mb9 18:16 Not Given (Physician Discretion): ns 0.9% 1000 ml IV at 1 bolus Per protocol; 1000 mL mb9 bolus 18:17 Drug: fentaNYL (PF) IVP 25 mcg IVP once Route: IVP; Site: right forearm; mb9 18:51 Follow up: Response: No adverse reaction mb9 19:40 Drug: Potassium PO Effervescent Tablet 50 mEq PO once; dissolve in 4 ounces of water or km8 juice Route: PO; 20:32 Follow up: Response: No adverse reaction km8 19:40 Drug: Magnesium Sulfate IVPB 1 grams IVPB once over 1 hrs Route: IVPB; Infused Over: 1 km8 hrs; Site: right wrist; 20:42 Follow up: IV Status: Completed infusion; IV Intake: 100ml km8 19:40 Drug: D10 in Water IVP 250 ml IVP once Route: IVP; Site: right wrist; km8 20:32 Follow up: Response: No adverse reaction km8 21:47 Not Given (Hemodynamic Parameters): fentanyl (pf)25 mcg IVP once km8 Medication: 18:10 VIS not applicable for this client. mb9 Intake: 20:42 IV: 100ml; Total: 100ml. km8 Outcome: 19:21 Decision to Hospitalize by Provider. aren 21:47 Admitted to Med/surg accompanied by tech, via wheelchair, room 427, with chart, Other km8 faxed report to 4th floor 21:47 Condition: stable 21:47 Instructed on the need for admit, Demonstrated understanding of instructions, 21:48 Patient left the ED. km8 Signatures: Dispatcher [employer] EDMS Naveen Cunningham MD MD cha Calderon, Audri RN RN aa5 Lizette Becerril RN RN hb Breneman, Mary Beth RN RN mb9 Maye Artis RN RN km8 Corrections: (The following items were deleted from the chart) 21:06 21:01 Pulse 83bpm; Resp 18bpm; Pulse Ox 100% RA; Temp 97.5F Temporal; km8 km8
--- NOTE | 2023-09-03 19:21 | EDPHYS ---
Physician Documentation [facility] Name: Tripp Webster Age: 58 yrs Sex: Male : 1965 Arrival Date: 09/03/2023 Time: 17:30 Bed 7 Private MD: ED Physician Naveen Cunningham HPI: 09/02 18:14 This 58 yrs old Male presents to ER via EMS with complaints of Blood Pressure aren Problem, Low Blood Sugar. 18:14 The patient or guardian reports heart racing, hypoglycemia. Onset: The symptoms/episode aren began/occurred just prior to arrival. Associated signs and symptoms: Pertinent positives: nausea, skin flushing. Current symptoms: In the emergency department the patient's symptoms have improved, markedly. The patient has experienced similar episodes in the past, a few times. Historical: - Allergies: 17:38 No Known Allergies; mb9 - PMHx: 17:38 CAD; depressive disorder; Diabetes - IDDM; GERD; Hypercholesterolemia; Hypertension; mb9 Myocardial infarction; neuropathy; - PSHx: 17:38 cardiac stents; Coronary artery bypass graft; mb9 - Immunization history:: Adult Immunizations up to date. - Social history:: Smoking status: Patient denies any tobacco usage or history of. ROS: 18:17 Constitutional: Negative for fever, chills, and weight loss, Eyes: Negative for injury, aren pain, redness, and discharge, ENT: Negative for injury, pain, and discharge, Neck: Negative for injury, pain, and swelling, Cardiovascular: Negative for chest pain, palpitations, and edema, Respiratory: Negative for shortness of breath, cough, wheezing, and pleuritic chest pain, Abdomen/GI: Negative for abdominal pain, nausea, vomiting, diarrhea, and constipation, Back: Negative for injury and pain, : Negative for injury, bleeding, discharge, and swelling, MS/Extremity: Negative for injury and deformity, Skin: Negative for injury, rash, and discoloration, Psych: Negative for depression, anxiety, suicide ideation, homicidal ideation, and hallucinations, Allergy/Immunology: Negative for hives, rash, and allergies, Endocrine: Negative for neck swelling, polydipsia, polyuria, polyphagia, and marked weight changes, Hematologic/Lymphatic: Negative for swollen nodes, abnormal bleeding, and unusual bruising, 18:17 Neuro: Positive for dizziness, weakness, Exam: 18:17 Constitutional: This is a well developed, well nourished patient who is awake, alert, aren and in no acute distress. Head/Face: Normocephalic, atraumatic. Eyes: Pupils equal round and reactive to light, extra-ocular motions intact. Lids and lashes normal. Conjunctiva and sclera are non-icteric and not injected. Cornea within normal limits. Periorbital areas with no swelling, redness, or edema. ENT: Nares patent. No nasal discharge, no septal abnormalities noted. Tympanic membranes are normal and external auditory canals are clear. Oropharynx with no redness, swelling, or masses, exudates, or evidence of obstruction, uvula midline. Mucous membranes moist. Neck: Trachea midline, no thyromegaly or masses palpated, and no cervical lymphadenopathy. Supple, full range of motion without nuchal rigidity, or vertebral point tenderness. No Meningismus. Chest/axilla: Normal chest wall appearance and motion. Nontender with no deformity. No lesions are appreciated. Cardiovascular: Regular rate and rhythm with a normal S1 and S2. No gallops, murmurs, or rubs. Normal PMI, no JVD. No pulse deficits. Respiratory: Lungs have equal breath sounds bilaterally, clear to auscultation and percussion. No rales, rhonchi or wheezes noted. No increased work of breathing, no retractions or nasal flaring. Abdomen/GI: Soft, non-tender, with normal bowel sounds. No distension or tympany. No guarding or rebound. No evidence of tenderness throughout. Back: No spinal tenderness. No costovertebral tenderness. Full range of motion. Skin: Warm, dry with normal turgor. Normal color with no rashes, no lesions, and no evidence of cellulitis. MS/ Extremity: Pulses equal, no cyanosis. Neurovascular intact. Full, normal range of motion. Neuro: Awake and alert, GCS 15, oriented to person, place, time, and situation. Cranial nerves II-XII grossly intact. Motor strength 5/5 in all extremities. Sensory grossly intact. Cerebellar exam normal. Normal gait. Psych: Awake, alert, with orientation to person, place and time. Behavior, mood, and affect are within normal limits. 18:17 ECG was reviewed by the Attending Physician. Vital Signs: 17:37 BP 100 / 49; Pulse 85; Resp 16; Temp 97.4; Pulse Ox 100% ; Weight 106.59 kg; Height 5 mb9 ft. 11 in. ; Pain 10/10; 18:10 BP 99 / 56; Pulse 79; Resp 15; Pulse Ox 100% on R/A; mb9 18:57 BP 121 / 74; Pulse 78; Resp 15; Pulse Ox 100% on R/A; hb 19:02 BP 121 / 74; Pulse 74; Resp 16; Pulse Ox 100% on R/A; mb9 21:01 BP 119 / 64; Pulse 83; Resp 18; Temp 97.5(TE); Pulse Ox 100% on R/A; km8 17:37 Body Mass Index 32.78 (106.59 kg, 180.34 cm) mb9 17:37 Pain Scale: Adult mb9 MDM: 17:37 Patient medically screened. aren 18:19 Differential diagnosis: hypoglycemic episode. Differential Diagnosis altered mental aren status, sepsis, flu. Differential diagnosis: cardiac arrhythmia, CVA, generalized weakness, hypovolemia, idiopathic dizziness, near-syncope, sepsis, TIA. Data reviewed: vital signs, nurses notes, EMS record, lab test result(s), EKG, radiologic studies, CT scan, plain films. Consideration of Admission/Observation Escalation of care including admission/observation considered. I considered the following discharge prescriptions or medication management in the emergency department Medications were administered in the Emergency Department. See MAR. Independent interpretation of the following test(s) in the Emergency Department EKG: See my EKG interpretation above. Test considered but Not performed: MRI: NO MRI BRAIN. Care significantly affected by the following chronic conditions: Diabetes, Hypertension, Obesity, CAD , GERD. Counseling: I had a detailed discussion with the patient and/or guardian regarding the historical points, exam findings, and any diagnostic results supporting the discharge/admit diagnosis, lab results, radiology results, the need for outpatient follow up, for definitive care, a restaurant recruiter, a family practitioner. 09/02 17:38 Order name: Basic Metabolic Panel; Complete Time: 18:59 [facility] 09/02 17:38 Order name: CBC with Diff; Complete Time: 18:59 [facility] 09/02 17:38 Order name: LFT's; Complete Time: 18:59 [facility] [place] 09/02 17:38 Order name: Magnesium; Complete Time: 18:59 [facility] [place] 09/02 17:38 Order name: NT PRO-BNP; Complete Time: 18:59 [facility] [place] 09/02 17:38 Order name: PT-INR; Complete Time: 18:59 [facility] [place] 09/02 17:38 Order name: Troponin HS; Complete Time: 18:59 [facility] [place] 09/02 17:38 Order name: Urinalysis w/ reflexes 09/02 17:38 Order name: Lipase; Complete Time: 18:59 [facility] [place] 09/02 18:41 Order name: Chem 7: repeat per MD; Complete Time: 19:18 aa5 09/02 18:41 Order name: Magnesium: repeat per MD; Complete Time: 19:18 aa5 09/02 19:44 Order name: Glucose, Ancillary Testing; Complete Time: 20:30 EDMS 09/02 20:31 Order name: CBC with Diff aren 09/02 20:32 Order name: Magnesium [facility] 09/02 21:08 Order name: Magnesium EDND 09/02 17:38 Order name: XRAY Chest (1 view); Complete Time: 18:59 [facility] [place] 09/02 17:43 Order name: CT Traumagram (Head C Spine CAP wo con); Complete Time: 19:18 [facility] [place] 09/02 17:38 Order name: EKG; Complete Time: 17:39 [facility] [place] 09/02 17:38 Order name: Cardiac monitoring; Complete Time: 17:40 [facility] [place] 09/02 17:38 Order name: EKG - Nurse/Tech; Complete Time: 17:40 [facility] [place] 09/02 17:38 Order name: IV Saline Lock; Complete Time: 17:40 [facility] [place] 09/02 17:38 Order name: Labs collected and sent; Complete Time: 17:40 [facility] [place] 09/02 17:38 Order name: O2 Per Protocol; Complete Time: 17:40 [facility] [place] 09/02 17:38 Order name: O2 Sat Monitoring; Complete Time: 17:40 [facility] [place] EC:17 Rate is 82 beats/min. Rhythm is regular. QRS [place] is Normal. [place] interval is normal. QRS aren interval is normal. QT interval is normal. No Q waves. T waves are Normal. No ST changes noted. Clinical impression: NSR w/ Non-specific ST/T Changes and No evidence of ischemia. Interpreted by me. Reviewed by me. Administered Medications: 17:55 Drug: NS 0.9% IV 1000 ml IV at 1 bolus Per protocol; 1000 mL bolus Route: IV; Rate: 1 mb9 bolus; Site: right antecubital; 18:50 Follow up: Response: No adverse reaction; IV Status: Completed infusion mb9 18:12 Drug: Ondansetron IVP 4 mg IVP once; over 2 minutes Route: IVP; Site: right forearm; mb9 18:50 Follow up: Response: No adverse reaction mb9 18:16 Drug: Decadron - Dexamethasone IVP 10 mg IVP once Route: IVP; Site: right forearm; mb9 18:50 Follow up: Response: No adverse reaction mb9 18:16 Not Given (Physician Discretion): ns 0.9% 1000 ml IV at 1 bolus Per protocol; 1000 mL mb9 bolus 18:17 Drug: fentaNYL (PF) IVP 25 mcg IVP once Route: IVP; Site: right forearm; mb9 18:51 Follow up: Response: No adverse reaction mb9 19:40 Drug: Potassium PO Effervescent Tablet 50 mEq PO once; dissolve in 4 ounces of water or km8 juice Route: PO; 20:32 Follow up: Response: No adverse reaction km8 19:40 Drug: Magnesium Sulfate IVPB 1 grams IVPB once over 1 hrs Route: IVPB; Infused Over: 1 km8 hrs; Site: right wrist; 20:42 Follow up: IV Status: Completed infusion; IV Intake: 100ml km8 19:40 Drug: D10 in Water IVP 250 ml IVP once Route: IVP; Site: right wrist; km8 20:32 Follow up: Response: No adverse reaction km8 21:47 Not Given (Hemodynamic Parameters): fentanyl (pf)25 mcg IVP once km8 Disposition Summary: 09/03/23 19:21 Hospitalization Ordered Notes: Hospitalization Status: Observation aren Provider: Oscar Chapa cha Location: Telemetry/[facility] (observation) aren Condition: Stable aren Problem: new aren Symptoms: have improved aren Bed/Room Type: Standard aren Room Assignment: 427(09/03/23 20:08) cm10 Diagnosis - Hypotension, unspecified aren - Hypoglycemia, unspecified aren - Hypokalemia aren - Dehydration aren Discharge Instructions: - Discharge Summary Sheet aren - Dehydration, Elderly aren - Dehydration, Adult aren - Hypotension aren - Weakness aren - Fatigue aren - Hypotension, Wbga-sl-[id number] aren - Weakness, Jsuu-at-Nrry aren - Dehydration, Adult, Boyw-he-Iszk aren - Rehydration, Adult aren - Rehydration, Elderly aren - Dehydration, Elderly, Ijut-ig-Xexk aren - Deconditioning aren Forms: - Medication Reconciliation Form aren - SBAR form aren - Leadership Thank You Letter aren Critical care time excluding procedures: 20:09 Critical care time: Bedside Care: 20 minutes, Consultation: 15 minutes, Family aren Intervention: 10 minutes. Total time: 45 minutes Signatures: Dispatcher [employer] Naveen Francis MD MD cha Breneman, Mary Beth RN RN mb9 Minnie Lopez RN RN cm10 Maye Artis RN RN km8 Corrections: (The following items were deleted from the chart) 20:08 19:21 aren agarwal
[2023-09-03] MEDS ORDERED: POTASSIUM 25 MEQ EFFERV TAB ONE (19:32)
[2023-09-03] MEDS ORDERED: MAGNESIUM SULFATE 1 gm IVPB 1 GM/100 ML BAG IV ONE (19:32)
[2023-09-03] MEDS ORDERED: D10W 250 ML IV ONE (19:33)
[2023-09-03] MEDS ORDERED: ACETAMINOPHEN 325 MG TABLET PO PRN (19:58)
[2023-09-03] MEDS ORDERED: ONDANSETRON 4 MG/2 ML VIAL IV PRN (19:58)
--- NOTE | 2023-09-03 20:22 | P.HP ---
Certification for Inpatient Patient admitted to: Observation With expected LOS: <2 Midnights Practitioner: I am a practitioner with admitting privileges, knowledge of patient current condition, hospital course, and medical plan of care. Services: Services provided to patient in accordance with Admission requirements found in Title 42 Section 412.3 of the Code of Federal Regulations Patient History Date of Service: 09/03/23 Reason for admission: Dizziness and palpitation History of Present Illness: 58-year-old gentleman with a history of hypertension, coronary artery disease and diabetes presented to the emergency department with a complaint of palpitation and dizziness. Patient also reported vomiting once but denied any diarrhea. He reported shortness of breath, no wheezing or coughing. Blood work done in the emergency department demonstrated KATIA, hypokalemia and anemia and borderline hypoglycemia. Troponin negative. ED provider is concerned about dehydration. Noted patient is Lasix for lower extremity edema at home. Patient is placed on observation for IV hydration and electrolyte correction. Allergies No Known Allergies Allergy (Verified 04/12/23 06:04) Home Medications: Aspirin Chewable [Aspirin Chewable*] 81 mg PO DAILY 04/12/23 Atorvastatin Calcium [Lipitor] 80 mg PO DAILY 04/12/23 Clopidogrel Bisulfate [Plavix*] 75 mg PO DAILY 04/12/23 Furosemide [Lasix*] 40 mg PO BID 04/12/23 Magnesium Oxide [Mag 0X*] 400 mg PO BID 04/12/23 Citalopram Hydrobromide [Celexa] 20 mg PO DAILY 09/03/23 Gabapentin 300 mg PO BID 09/03/23 Hydrocodone 10/APAP 325 [[place] 10/325*] 1 tab PO Q6H PRN 09/03/23 Insulin 70/30 NPH/Reg Human [Novolin 70/30*] 32 unit SQ BREAKFAST 09/03/23 Lisinopril [Zestril] 30 mg PO DAILY 09/03/23 - Past Medical/Surgical History Diabetic: Yes -: Hypertension -: Diabetes mellitus type 2 insulin dependent -: CAD with prior stent -: Hyperlipidemia -: Diabetic neuropathy -: Obesity -: Sleep apnea noncompliant -: CVA -: Chronic diastolic congestive heart failure -: Stent placement x5 -: back surgery -: ble vascular sx -: Appendectomy -: Multiple debridement left great toe -: cabg 02/03/23 Psychosocial/ Personal History: Patient is - Family History Father -: Heart disease, Diabetes Mother -: Heart disease - Social History Alcohol use: No CD- Drugs: No Caffeine use: No Review of Systems Other: Patient denied any abdominal pain, he denied any headache or fever or chills. Except as documented, all other systems reviewed and negative. Physical Examination - Physical Exam General: Alert, In no apparent distress, Oriented x3 HEENT: Mucous membr. moist/pink Neck: Supple, JVD not distended Respiratory: Clear to auscultation bilaterally, Normal air movement Cardiovascular: Regular rate/rhythm, Normal S1 S2, Edema (Trace bilateral lower extremity edema) Gastrointestinal: Normal bowel sounds, Soft and benign, Non-distended, No tenderness Musculoskeletal: No swelling, No tenderness Integumentary: No rashes, No cyanosis Neurological: Normal strength at 5/5 x4 extr, Cranial nerves 3-12 intact Lymphatics: No axilla or inguinal lymphadenopathy - Studies Laboratory Data (last 24 hrs) 09/03/23 09/03/23 09/03/23 18:47 18:00 18:00 WBC 5.80 Hgb 7.1 L Hct 21.6 L Plt Count 225 PT 14.2 H INR 1.30 Sodium 141 D Potassium 3.4 L D BUN 26 H Creatinine 1.65 H Glucose 90 Magnesium 1.6 Total Bilirubin AST ALT Alkaline Phosphatase Lipase 09/03/23 18:00 WBC Hgb Hct Plt Count PT INR Sodium 149 H Potassium 2.3 L* BUN 18 Creatinine 1.00 Glucose 64 L Magnesium 0.9 L* Total Bilirubin 0.2 AST 7 L ALT < 10 L Alkaline Phosphatase 77 Lipase 15 Assessment and Plan - Problems (Diagnosis) (1) Chronic anemia Current Visit: Yes Status: Acute (2) Type 2 diabetes mellitus with hypoglycemia Current Visit: Yes Status: Acute (3) Acute renal failure Current Visit: No Status: Acute Qualifiers: Acute renal failure type: unspecified Qualified Code(s): N17.9 - Acute kidney failure, unspecified (4) Chronic joint pain Current Visit: No Status: Acute (5) Essential (primary) hypertension Current Visit: No Status: Chronic (6) Lymphedema Current Visit: No Status: Chronic - Plan DM type II with hypoglycemia Hold Novolin 70/30 Manage blood sugar with insulin sliding scale for now Accu-Cheks. Acute kidney injury/hypokalemia Likely related to diuretics Lasix and metolazone listed on patient's home medications Hold all diuretics. Hydrate cautiously with IV normal saline Monitor renal function. Replace potassium and other electrolytes as needed Essential hypertension Patient's blood pressure readings are borderline low This is likely secondary to dehydration from diuretic use. Hold all antihypertensives. Monitor BP. Chronic joint pain Analgesics as needed. DVT prophylaxis: Heparin SQ - Advance Directives Does patient have a Living Will: No Does patient have a Durable POA for Healthcare: No
[2023-09-03 20:49] LABS: Specific Gravity 1.008 (1.005-1.030); Sqamous Epithelial None Seen /HPF (None Seen); Urine Bacteria <20 /HPF (<20); Urine Bilirubin NEGATIVE (Negative); Urine Blood Negative (Negative); Urine Clarity Clear (Clear); Urine Color Colorless (Yellow); Urine Culture Reflex Order NOT NEEDED; Urine Glucose TRACE (Negative); Urine Ketones NEGATIVE (Negative); Urine Microscopic Reflex YN ORDER UMIC; Urine Mucus Slight /HPF (None Seen); Urine Nitrite NEGATIVE (Negative); Urine Protein NEGATIVE (Negative); Urine RBC <5 /HPF (None Seen); Urine Urobilinogen Normal (Normal); Urine WBC <5 /HPF (<5)
[2023-09-03 20:59] LABS: Absolute Lymphocytes (CBC) 0.9 K/uL (0.7-4.9); Absolute Monocytes 0.2 K/uL (0.1-1.3); Absolute Neutrophil 8.7 K/uL (1.8-8.0); Basophils % 0.3 % (0-1.3); Eosinophils % 0.5 % (0-4.4); Hematocrit 31.2 % (39.6-49.0); Hemoglobin 10.3 g/dL (13.6-17.9); Lymphocytes % 8.7 % (15.3-44.8); MCH 26.7 pg (27.0-35.0); MCHC 33.1 g/dL (32.0-36.0); MCV 80.7 fL (80-100); MPV 7.7 fL (7.6-11.3); Monocytes % 2.3 % (3.3-12.3); Neutrophils % 88.2 % (41.7-73.7); Platelets 353 thou/uL (152-406); RBC Red Blood Cell Count 3.87 M/uL (4.33-5.43); Red Cell Distribution Width 16.6 % (12.1-15.2)
[2023-09-03] MEDS: INSULIN REGULAR (HUMAN) 100 UNIT/ML SQ SCH (21:00)
[2023-09-03 21:59] VITALS: O2SAT 100
[2023-09-03] MEDS: MORPHINE 2 MG/ML SYR IV ONE (22:15)
[2023-09-03] MEDS: NA CHLORIDE 0.9% 1,000 ML IV SCH (22:16)
[2023-09-03 22:51] VITALS: BMI 28.5
[2023-09-03 23:44] LABS: Blood Morphology Comment NOT SEEN (NOT SEEN); Differential Total Cells Count 100; Lymphocytes 9 % (15-42); Monocytes 4 % (0-10); Platelet Estimate ADEQ; Segmented Neutrophils 87 % (40-80)
[2023-09-04] MEDS: HYDROCODONE/APAP 10/325 TAB PO PRN (00:45)
[2023-09-04] MEDS: HEPARIN 5000 UNIT/ML 1 ML VIAL SQ SCH (00:45)
[2023-09-04] MEDS: MORPHINE 2 MG/ML SYR IV PRN (04:48)
[2023-09-04 07:10] LABS: Absolute Lymphocytes (CBC) 0.7 K/uL (0.7-4.9); Absolute Monocytes 0.2 K/uL (0.1-1.3); Absolute Neutrophil 7.4 K/uL (1.8-8.0); Basophils % 0.1 % (0-1.3); Hematocrit 29.8 % (39.6-49.0); Lymphocytes % 8.7 % (15.3-44.8); MCH 27.2 pg (27.0-35.0); MCHC 33.6 g/dL (32.0-36.0); MCV 80.9 fL (80-100); MPV 7.5 fL (7.6-11.3); Monocytes % 2.3 % (3.3-12.3); Neutrophils % 88.9 % (41.7-73.7); Nucleated Red Blood Cells % 0.1 % (0-0); Platelets 339 thou/uL (152-406); RBC Red Blood Cell Count 3.68 M/uL (4.33-5.43); Red Cell Distribution Width 16.5 % (12.1-15.2)
[2023-09-04 07:30] LABS: Albumin 2.9 g/dL (3.4-5.0); Albumin/Globulin Ratio 0.8 (1.1-1.8); Anion Gap 10.1 mEq/L (5.0-15.0); Bilirubin Total 0.5 mg/dL (0.2-1.0); Globulin 3.7 g/dL (2.3-3.5); Phosphorus 2.6 mg/dL (2.5-4.9); Potassium 5.1 mEq/L (3.5-5.1); Protein, Total 6.6 g/dL (6.4-8.2)
[2023-09-04] MEDS ORDERED: D50W 25 GM/50 ML SYRINGE IV PRN ×2 (08:31→08:39)
[2023-09-04] MEDS ORDERED: GLUCAGON 1 MG/VIAL IM PRN ×2 (08:31→08:39)
--- NOTE | 2023-09-04 08:32 | P.PN ---
Subjective Date of Service: 09/04/23 Chief Complaint: Dizziness and palpitation Admitted for renal insufficiency, hypokalemia, anemia - Physical Exam General: Alert, In no apparent distress, Oriented x3 HEENT: Mucous membr. moist/pink Neck: Supple, JVD not distended Respiratory: Clear to auscultation bilaterally, Normal air movement Cardiovascular: Regular rate/rhythm, Normal S1 S2, Edema (Trace bilateral lower extremity edema) Gastrointestinal: Normal bowel sounds, Soft and benign, Non-distended, No tenderness Musculoskeletal: No swelling, No tenderness Integumentary: No rashes, No cyanosis Neurological: Normal strength at 5/5 x4 extr, Cranial nerves 3-12 intact Lymphatics: No axilla or inguinal lymphadenopathy <Elana Marquez - Last Filed: 09/04/23 13:33> Date of Service: 09/04/23 <Shila Ramos - Last Filed: 09/04/23 17:18> Review of Systems Per HPI <Elana Marquez - Last Filed: 09/04/23 13:33> Physical Examination - Vital Signs Temperature: 97.4 F Blood Pressure: 112/56 Pulse: 92 Respirations: 20 Pulse Ox (%): 100 - Studies Laboratory Data (last 24 hrs) 09/03/23 09/03/23 09/03/23 18:47 18:00 18:00 WBC 5.80 Hgb 7.1 L Hct 21.6 L Plt Count 225 PT 14.2 H INR 1.30 Sodium 141 D Potassium 3.4 L D BUN 26 H Creatinine 1.65 H Glucose 90 Magnesium 1.6 Total Bilirubin AST ALT Alkaline Phosphatase Lipase 09/03/23 18:00 WBC Hgb Hct Plt Count PT INR Sodium 149 H Potassium 2.3 L* BUN 18 Creatinine 1.00 Glucose 64 L Magnesium 0.9 L* Total Bilirubin 0.2 AST 7 L ALT < 10 L Alkaline Phosphatase 77 Lipase 15 <Elana Marquez - Last Filed: 09/04/23 13:33> - Studies Laboratory Data (last 24 hrs) 09/03/23 09/03/23 09/03/23 18:47 18:00 18:00 WBC 5.80 Hgb 7.1 L Hct 21.6 L Plt Count 225 PT 14.2 H INR 1.30 Sodium 141 D Potassium 3.4 L D BUN 26 H Creatinine 1.65 H Glucose 90 Magnesium 1.6 Total Bilirubin AST ALT Alkaline Phosphatase Lipase 09/03/23 18:00 WBC Hgb Hct Plt Count PT INR Sodium 149 H Potassium 2.3 L* BUN 18 Creatinine 1.00 Glucose 64 L Magnesium 0.9 L* Total Bilirubin 0.2 AST 7 L ALT < 10 L Alkaline Phosphatase 77 Lipase 15 <Shila Ramos - Last Filed: 09/04/23 17:18> Assessment And Plan - Plan - Plan DM type II with hypoglycemia Hold Novolin 70/30 Manage blood sugar with insulin sliding scale for now Accu-Cheks. resume home insulin, A1c in am Microcytic anemia Hemoglobin hematocrit 7.110.3 Trend H&H Acute kidney injury/hypokalemia Nephrology consulted Likely related to diuretics Lasix and metolazone listed on patient's home medications Hold all diuretics. Hydrate cautiously with IV normal saline Monitor renal function. Replace potassium and other electrolytes as needed Essential hypertension Patient's blood pressure readings are borderline low This is likely secondary to dehydration from diuretic use. Hold all antihypertensives. Monitor BP. Chronic joint pain Analgesics as needed. DVT prophylaxis: Heparin SQ Full code Diet Discharge Plan: Home - Code Status/Comfort Care Code Status: Full Code Critical Care: No Time Spent Managing PTS Care (In Minutes): 65 <Elana Marquez - Last Filed: 09/04/23 13:33> - Plan Pt seen and examined. I agree with the note by the STITCH BONDING MACHINE TENDER. Will dc pt today <Shila Ramos - Last Filed: 09/04/23 17:18>
[2023-09-04] MEDS ORDERED: HYDROCODONE/APAP 10/325 TAB PO PRN (08:39)
[2023-09-04] MEDS: CITALOPRAM 10 MG TABLET PO SCH (09:09)
[2023-09-04] MEDS: CLOPIDOGREL 75 MG TABLET PO SCH (09:17)
[2023-09-04] MEDS: ASPIRIN 81 MG CHEWABLE TABLET PO SCH (09:17)
[2023-09-04] MEDS: ATORVASTATIN 80 MG TAB PO SCH (09:17)
[2023-09-04] MEDS: INSULIN 70/30 100 UNITS/ML SQ SCH (09:17)
[2023-09-04] MEDS: MAGNESIUM OXIDE 400 MG TAB PO SCH (09:18)
[2023-09-04] MEDS: INSULIN REGULAR (HUMAN) 100 UNIT/ML SQ SCH (11:56)
[2023-09-04] MEDS ORDERED: MORPHINE 2 MG/ML SYR IV PRN (12:00)
[2023-09-04] MEDS: MORPHINE 2 MG/ML SYR IV ONE (12:06)
[2023-09-04 13:40] VITALS: BP 112/56; TEMP 97.4
--- NOTE | 2023-09-04 13:58 | P.DS ---
Admission Date: 09/03/23 Discharge Date: 09/04/23 Reason for Admission: Dizziness and palpitation Brief History of Present Illness: 58-year-old gentleman with a history of hypertension, coronary artery disease and diabetes presented to the emergency department with a complaint of palp itation and dizziness. Patient also reported vomiting once but denied any diarrhea. He reported shortness of breath, no wheezing or coughing. Blood work done in the emergency department demonstrated KATIA, hypokalemia and anemia and borderline hypoglycemia. Troponin negative. ED provider is concerned about dehydration. Noted patient is Lasix for lower extremity edema at home. Patient is placed on observation for IV hydration and electrolyte correction. - Physical Exam General: Alert, In no apparent distress, Oriented x3 HEENT: Mucous membr. moist/pink Neck: Supple, JVD not distended Respiratory: Clear to auscultation bilaterally, Normal air movement Cardiovascular: Regular rate/rhythm, Normal S1 S2, Edema (Trace bilateral lower extremity edema) Gastrointestinal: Normal bowel sounds, Soft and benign, Non-distended, No t enderness Musculoskeletal: No swelling, No tenderness Integumentary: No rashes, No cyanosis Neurological: Normal strength at 5/5 x4 extr, Cranial nerves 3-12 intact Lymphatics: No axilla or inguinal lymphadenopathy Hospital Course: 58-year-old male presented with dizziness. Was noted to have acute kidney injury, hypokalemia, anemia. Was evaluated by nephrology, patient was told to hold diuretics, hold lisinopril unless 5 pound weight gain. Will need to follow-up with nephrology after discharge. Assessment Acute kidney injury Anemia Diabetes with hyperglycemia Hold lisinopril, hold diuretics unless 5 pound weight gain Follow-up with nephrology after discharge OAL: Clear understanding of disease process INSTRUCTIONS: Physician Discharge Instructions: -Follow-up with PCP in 1 to 2 weeks -Please callif any questions regarding hospital stay -Please call nursing station at [phone] if any nursing or medication questions -Return to the emergency room if symptoms worsen Diet: ADA, low sodium Activity: Fall precautions <Elana Marquez - Last Filed: 09/04/23 15:53> Admission Date: 09/03/23 Discharge Date: 09/04/23 Hospital Course: Pt seen and examined. I agree with the note by the PRESS SET UP PERSON. Pt presented with KATIA, hypokalemia, and anemia. KATIA improved with IVF. We replaced potassium. Ok to discharge pt. <Shila Ramos Errol - Last Filed: 09/04/23 17:17> Disposition: ROUTINE DISCHARGE Discharge Condition: FAIR Vital Signs/Physical Exam: Temp Pulse Resp BP Pulse Ox 97.4 F 92 H 20 112/56 L 100 09/04/23 13:34 09/04/23 13:34 09/04/23 13:34 09/04/23 13:34 09/04/23 13:34 Laboratory Data at Discharge: WBC 8.30 thou/uL (4.3-10.9) 09/04/23 06:49 Hgb 10.0 g/dL (13.6-17.9) L 09/04/23 06:49 Hct 29.8 % (39.6-49.0) L 09/04/23 06:49 Plt Count 339 thou/uL (152-406) 09/04/23 06:49 PT 14.2 SECONDS (9.5-12.5) H 09/03/23 18:00 INR 1.30 09/03/23 18:00 Sodium 137 mEq/L (136-145) 09/04/23 06:49 Potassium 5.1 mEq/L (3.5-5.1) D 09/04/23 06:49 BUN 26 mg/dL (7-18) H 09/04/23 06:49 Creatinine 1.36 mg/dL (0.70-1.30) H 09/04/23 06:49 Glucose 287 mg/dL (74-106) H 09/04/23 06:49 Phosphorus 2.6 mg/dL (2.5-4.9) 09/04/23 06:49 Magnesium 2.0 mg/dL (1.6-2.4) 09/04/23 06:49 Total Bilirubin 0.5 mg/dL (0.2-1.0) 09/04/23 06:49 AST 11 U/L (15-37) L 09/04/23 06:49 ALT 11 U/L (16-61) L 09/04/23 06:49 Alkaline Phosphatase 117 U/L (45-117) D 09/04/23 06:49 Lipase 15 U/L (13-75) 09/03/23 18:00 <Elana Marquez - Last Filed: 09/04/23 15:53> Vital Signs/Physical Exam: Temp Pulse Resp BP Pulse Ox 97.4 F 92 H 20 112/56 L 100 09/04/23 13:34 09/04/23 13:34 09/04/23 13:34 09/04/23 13:34 09/04/23 13:34 Laboratory Data at Discharge: WBC 8.30 thou/uL (4.3-10.9) 09/04/23 06:49 Hgb 10.0 g/dL (13.6-17.9) L 09/04/23 06:49 Hct 29.8 % (39.6-49.0) L 09/04/23 06:49 Plt Count 339 thou/uL (152-406) 09/04/23 06:49 PT 14.2 SECONDS (9.5-12.5) H 09/03/23 18:00 INR 1.30 09/03/23 18:00 Sodium 137 mEq/L (136-145) 09/04/23 06:49 Potassium 5.1 mEq/L (3.5-5.1) D 09/04/23 06:49 BUN 26 mg/dL (7-18) H 09/04/23 06:49 Creatinine 1.36 mg/dL (0.70-1.30) H 09/04/23 06:49 Glucose 287 mg/dL (74-106) H 09/04/23 06:49 Phosphorus 2.6 mg/dL (2.5-4.9) 09/04/23 06:49 Magnesium 2.0 mg/dL (1.6-2.4) 09/04/23 06:49 Total Bilirubin 0.5 mg/dL (0.2-1.0) 09/04/23 06:49 AST 11 U/L (15-37) L 09/04/23 06:49 ALT 11 U/L (16-61) L 09/04/23 06:49 Alkaline Phosphatase 117 U/L (45-117) D 09/04/23 06:49 Lipase 15 U/L (13-75) 09/03/23 18:00 <Shila Ramos - Last Filed: 09/04/23 17:17> Diet: Renal Activity: Fall precautions Time spent managing pt's care (in minutes): 55 <Elana Marquez - Last Filed: 09/04/23 15:53> <Shila Ramos - Last Filed: 09/04/23 17:17> Home Medications: Aspirin Chewable [Aspirin Chewable*] 81 mg PO DAILY 04/12/23 Atorvastatin Calcium [Lipitor] 80 mg PO DAILY 04/12/23 Clopidogrel Bisulfate [Plavix*] 75 mg PO DAILY 04/12/23 Magnesium Oxide [Mag 0X*] 400 mg PO DAILY 04/12/23 Citalopram Hydrobromide [Celexa] 20 mg PO DAILY 09/03/23 Gabapentin 300 mg PO BID 09/03/23 Hydrocodone 10/APAP 325 [[place] 10/325*] 1 tab PO Q6H PRN 09/03/23 Insulin 70/30 NPH/Reg Human [Novolin 70/30*] 32 unit SQ BREAKFAST 09/03/23 Aspirin Chewable [Aspirin Chewable*] 81 mg PO DAILY tab.chew 09/04/23 Atorvastatin Calcium [Lipitor] 80 mg PO DAILY tab 09/04/23 Citalopram [Celexa*] 20 mg PO DAILY 09/04/23 Clopidogrel Bisulfate [Plavix*] 75 mg PO DAILY 09/04/23 Insulin 70/30 NPH/Reg Human [Novolin 70/30*] 20 unit SQ BIDAC ml 09/04/23 Physician Discharge Instructions: 58-year-old male presented with dizziness. Was noted to have acute kidney injury, hypokalemia, anemia. Was evaluated by nephrology, patient was told to hold diuretics, hold lisinopril unless 5 pound weight gain. Will need to follow-up with nephrology after discharge. Assessment Acute kidney injury Anemia Diabetes with hyperglycemia Hold lisinopril, hold diuretics unless 5 pound weight gain Follow-up with nephrology after discharge OAL: Clear understanding of disease process INSTRUCTIONS: Physician Discharge Instructions: -Follow-up with PCP in 1 to 2 weeks -Please callif any questions regarding hospital stay -Please call nursing station at [phone] if any nursing or medication questions -Return to the emergency room if symptoms worsen Diet: ADA, low sodium Activity: Fall precautions Followup: Stephanie Lund MD [ACTIVE - CAN ADMIT] - Adri Antonio MD [Primary Care Provider] -
[2023-09-04] MEDS ORDERED: NA CHLORIDE 0.9% 1,000 ML IV SCH (14:00)
--- NOTE | 2023-09-04 18:19 | CON ---
Date of Consultation: 09/04/2023 Reason For Consultation: KATIA. Chief Complaint: Dizziness and palpitations. History Of Present Illness: This is a 58-year-old man with past medical history of coronary artery d isease, status post CABG; CHF, on Lasix; PVD, status post left toe amputation was presented to the ER complaining of dizziness and palpitation. The patient is taking Lasix, metolazone, and lisinopril. Upon presentation, creatinine was 1, increased up to 1.6, and improved on IV fluids. The patient de nied NSAID intake. The patient stated he has a history of KATIA that required temporary dialysis. Bec ause of KATIA, likely due to ATN versus AIN, likely induced by antibiotic. Past Medical History: Colon artery disease, diabetes. Past Surgical History: CABG and toe amputation. Allergies: NO KNOWN DRUG ALLERGIES. Home Medications: See MAR. Family History: Father has heart disease and diabetes. Social History: Denies tobacco or recreational drug abuse. Review of Systems: Significant for dizziness that is improving. Denied blurry vision, chest pain, palpitations, nausea, vomiting, or diarrhea. Physical Examination: Vital Signs: Temperature 97.7, pulse rate 92, blood pressure 112/56. General: Awake and alert, not in distress. Neck: Supple. No elevated JVD. Heart: Regular rate and rhythm. Normal S1, S2. Chest: Clear to auscultation bilaterally. No rales or wheezes. Abdomen: Soft, nontender. Extremities: Right leg, no edema. Left leg, edema. First toe amputation. Mild erythema. Assessment And Plan: 1.Acute kidney injury, likely due to ischemic acute tubular necrosis and prerenal azotemia from hypo tension and dizziness. Creatinine improved to 1.3. The patient can be discharged today from Nephrol ogy point of view. Continue to hold lisinopril, resume Lasix 40 mg daily if he has worsening edema o r gained more than 5 pounds. 2.Dizziness, likely due to overdiuresis. Blood pressure is currently improved. Continue to hold bl ood pressure medication and diuretic. 3.Diabetes mellitus. Continue sliding scale insulin. 4.Anemia of chronic disease. Hemoglobin is stable. Continue to monitor. Thanks for allowing me to participate in patient care. Total time spent 55 minutes including documentation, reviewing labs, placing orders, and discussing w ith the medical team. AA/MODL Voice ID: [id number] Report ID: [id number]
[2023-09-05] MEDS ORDERED: INSULIN 70/30 100 UNITS/ML SQ SCH (08:00)
--- NOTE | 2023-09-06 14:24 | EKG ---
Test Date: 2023-09-03 Test Time: 16:51:55 Changeover Operator: MB MEASUREMENT RESULTS: Intervals: Rate: 82 NE: 154 QRSD: 100 QT: 406 QTc: 474 [place]: P: 73 NE: 154 QRS: 55 T: 78 INTERPRETIVE STATEMENTS: Sinus rhythm with occasional premature ventricular complexes Otherwise normal ECG Compared to ECG 08/11/2023 06:22:18 Ventricular premature complex(es) now present Sinus bradycardia no longer present Electronically Signed On 09-06-23 14:16:08 CDT by Keyur Bonds
== END 2023-09-04 16:33 | disposition home or self-care (01) ==
LOC: ER 17:30 → ERHOLD 19:56 → 4TH 20:21
PROVIDERS: ADMIT Internal Medicine; ATTEND Hospitalist
DX: N17.9 Acute kidney failure, unspecified (principal); E87.6 Hypokalemia; D64.9 Anemia, unspecified; I95.9 Hypotension, unspecified; I89.0 Lymphedema, not elsewhere classified; R00.2 Palpitations; E11.65 Type 2 diabetes mellitus with hyperglycemia; R42 Dizziness and giddiness; I10 Essential (primary) hypertension; I25.10 Atherosclerotic heart disease of native coronary artery without angina pectoris; E11.9 Type 2 diabetes mellitus without complications; G89.29 Other chronic pain
CPT/HCPCS: 96365; 96361; 93005; 85025 ×3; 81001; 80048 ×2; 36415; 83735 ×4; 84100; 85610; 82947 ×5; 80076; 84484; 83690; 80053; 83880; 70450; 71250; 72125; 71045; 96375; 99285; J1815 ×3; J1644 ×2; J3475; J3010; J1100; J2270 ×4; J2405; J7030 ×4; G0378 ×3

== ENCOUNTER → 2023-09-06 | Emergency (ER) | payer OTHER ==
[~2023-09-06] MED LIST: GABAPENTIN 300 MG CAP ONE; MORPHINE 4 MG/ML SYR ONE; ONDANSETRON 4 MG/2 ML VIAL ONE
--- NOTE | 2023-09-06 07:28 | RAD REPORT ---
EXAM DESCRIPTION: CT - Thoracic Spine W/o Cont - 09/06/2023 6:57 am CLINICAL HISTORY: Radiculopathy. PAIN COMPARISON: Head C Spine Mpr Wo Con dated 11/30/2020; Spine Lumbar Wo Con dated 09/06/2023 TECHNIQUE: Axial CT imaging through the thoracic spine was performed with coronal and sagittal re-fo rmatted images. All CT scans are performed using dose optimization technique as appropriate and may include automated exposure control or mA/KV adjustment according to patient size. FINDINGS: Diffuse disc thinning with anterior bridging osteophytes noted thoracic spine. A compressi on fracture is not present. Mild generalized diffuse disc space narrowing without evidence of canal n arrowing. Thoracic spine alignment is within normal limits. No paraspinal masses or hematoma. Atelectasis versus scarring left lung base. IMPRESSION: No acute lumbar spine abnormality. Linear opacities in the left lung base may be atelectasis or scarring.
--- NOTE | 2023-09-06 07:30 | RAD REPORT ---
EXAM DESCRIPTION: CT - Spine Lumbar Wo Con - 09/06/2023 6:57 am CLINICAL HISTORY: Radiculopathy. PAIN COMPARISON: No comparisons TECHNIQUE: Axial noncontrast CT imaging of the lumbar spine was performed with coronal and sagittal re-formatted images. All CT scans are performed using dose optimization technique as appropriate and may include automated exposure control or mA/KV adjustment according to patient size. FINDINGS: No acute lumbar spine fracture seen. No aggressive marrow pattern or malalignment. Paraspinal tissues are normal in thickness. No paraspinal abscess or hematoma seen. Posterior disc bulging is present with facet hypertrophy lower lumbar spine levels. The findings resu lt in mild canal narrowing. IMPRESSION: No acute lumbar spine findings. Mild diffuse lower lumbar spondylosis.
--- NOTE | 2023-09-06 08:04 | EDPHYS ---
Physician Documentation [facility] Name: Tripp Webster Age: 58 yrs Sex: Male : 1965 Arrival Date: 09/06/2023 Time: 06:11 Bed 8 Private MD: ED Physician Leonard Kincaid HPI: 09/05 06:15 This 58 yrs old Male presents to ER via Unassigned with complaints of back pain. rn 06:15 The patient presents with pain that is acute. The symptoms are located in the low back, rn left low back and left mid back. Onset: The symptoms/episode began/occurred yesterday. The pain does not radiate. Associated signs and symptoms: Pertinent positives: none Pertinent negatives: abdominal pain, chest pain, fever, hematuria, incontinence, weakness. Modifying factors: The patient symptoms are alleviated by tramadol, the patient symptoms are aggravated by any movement. Severity of symptoms: At their worst the symptoms were moderate, in the emergency department the symptoms are unchanged. The patient has experienced similar episodes in the past. 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 Nonradiating. No bowel or bladder incontinence or problems. No weakness of lower extremities. Patient reports using his 's wheelchair to get around because of the pain. Patient states limited by pain and not by weakness. No direct trauma. Patient took 2 tramadol prior to arrival and has helped his pain a little bit. Denies any chest or abdominal pain. No fever. No drug use. Has known peripheral vascular disease and is set to follow-up with vascular surgeon this week for bypass evaluation of left lower extremity. Denies any new changes to the left lower extremity. No new pain or skin changes. Patient states did cut his left lower extremity yesterday while mowing, but redness is always present to his left lower extremity and not new. Historical: - Allergies: : No Known Allergies; bm8 - PMHx: CAD; depressive disorder; Diabetes - IDDM; GERD; Hypercholesterolemia; Hypertension; bm8 Myocardial infarction; neuropathy; - PSHx: Coronary artery bypass graft; cardiac stents; bm8 - Immunization history:: Adult Immunizations unknown. - Social history:: Smoking status: Patient reports the use of cigarette tobacco products, Patient/guardian denies using. - Family history:: not pertinent. - Hospitalizations: : No recent hospitalization is reported. ROS: 06:15 Constitutional: Negative for fever, chills, and weight loss, Cardiovascular: Negative rn for chest pain, palpitations, and edema, Respiratory: Negative for shortness of breath, cough, wheezing, and pleuritic chest pain, Abdomen/GI: Negative for abdominal pain, nausea, vomiting, diarrhea, and constipation, Back: Positive for back pain : Negative for injury, bleeding, discharge, and swelling, MS/Extremity: Negative for injury and deformity, Skin: Positive for superficial scrapes to left lower extremity and right lower extremity Neuro: Negative for headache, weakness, and seizure, Exam: 06:15 Constitutional: This is a well developed, well nourished patient who is awake, alert, rn and in no acute distress. Cardiovascular: Regular rate and rhythm. No pulse deficits. Respiratory: No increased work of breathing, no retractions or nasal flaring. Abdomen/GI: Soft, nontender Back: No midline spinal tenderness. Mild tenderness left lower back paralumbar region Skin: Warm, dry MS/ Extremity: Diminished but present pulses left lower extremity. Stronger pulses right lower extremity. No cyanosis. Linear superficial abrasions to bilateral lower extremities. Distal anterior tibial erythema without fluctuance. Patient with secondary signs of peripheral vascular disease bilateral lower extremities Neuro: Awake and alert, GCS 15, oriented to person, place, time, and situation. Cranial nerves II-XII grossly intact. Motor strength 5/5 in all extremities. Sensory grossly intact. Cerebellar exam normal. Normal gait. Vital Signs: 06:05 BP 148 / 69; Pulse 85; Resp 18; Temp 97.9; Pulse Ox 100% on R/A; Weight 97.98 kg; bm8 Height 05 ft. 11 in. ; Pain 7/10; 07:15 BP 137 / 71; Pulse 75; Resp 16; Pulse Ox 97% ; bp 06:05 Body Mass Index 30.13 (97.98 kg, 180.34 cm) bm8 06:05 Pain Scale: Adult bm8 Fausto Coma Score: 06:41 Eye Response: spontaneous(4). Motor Response: obeys commands(6). Verbal Response: bm8 oriented(5). Total: 15. MDM: 06:13 Patient medically screened. rn 07:00 Transition of care: Care assumed from Dennys Yu MD. ms3 08:04 Differential diagnosis: Osteoporosis ruptured disc, spinal injury, sprain, muscle ms3 spasm. Data reviewed: vital signs, nurses notes, radiologic studies, and as a result, I will. I considered the following discharge prescriptions or medication management in the emergency department Medications were administered in the Emergency Department. See MAR. Care significantly affected by the following chronic conditions: Diabetes, Hypertension. Counseling: I had a detailed discussion with the patient and/or guardian regarding the historical points, exam findings, and any diagnostic results supporting the discharge/admit diagnosis, radiology results, the need for outpatient follow up, to return to the emergency department if symptoms worsen or persist or if there are any questions or concerns that arise at home. Special discussion: I discussed with the patient/guardian in detail that at this point there is no indication for admission to the hospital. It is understood, however, that if the symptoms persist or worsen the patient needs to return immediately for re-evaluation. ED course: On reevaluation patient states his symptoms have improved. Patient to follow-up with Dr. Goodwin in 2 to 3 days. Patient understands and agrees with plan. All questions were answered. Return precautions discussed include worsening symptoms, or any other concerns. Patient is without saddle anesthesia, numbness, lower extremity weakness, bowel or bladder incontinence. 09/05 06:14 Order name: CT Lumbar Spine Wo Con; Complete Time: 07:54 rn 09/05 06:14 Order name: CT Thoracic Spine Wo Cont; Complete Time: 07:54 rn 09/05 06:14 Order name: IV Start; Complete Time: 06:28 rn Administered Medications: 06:27 Drug: Gabapentin PO 300 mg PO once Route: PO; km8 07:15 Follow up: Response: No adverse reaction ko1 06:28 Drug: morphine IVP or IV 4 mg IVP once over 4 mins Route: IVP; Infused Over: 4 mins; km8 Site: right upper arm; 07:00 Follow up: Response: No adverse reaction; Pain is decreased ko1 06:28 Drug: Ondansetron IVP 4 mg IVP once; over 2 minutes Route: IVP; Site: right upper arm; km8 07:00 Follow up: Response: No adverse reaction ko1 Disposition Summary: 09/06/23 08:03 Discharge Ordered Notes: Location: Home ms3 Condition: Stable ms3 Diagnosis - Low back pain ms3 Followup: ms3 - With: Michael Grullon DO - When: 2 - 3 days - Reason: Recheck today's complaints Discharge Instructions: - Discharge Summary Sheet ms3 - Acute Back Pain, Adult ms3 Forms: - Medication Reconciliation Form ms3 - Thank You Letter ms3 - Antibiotic Education ms3 - Prescription Opioid Use ms3 - Patient Portal Instructions ms3 - Leadership Thank You Letter ms3 Prescriptions: - Ibuprofen 600 mg Oral Tablet - take 1 tablet ORAL route every 6 hours As needed take with food; 30 tablet; ms3 Refills: 0, Product Selection Permitted - Cyclobenzaprine 10 mg Oral Tablet - take 1 tablet ORAL route every 8 hours As needed; 30 tablet; Refills: 0, ms3 Product Selection Permitted Signatures: Dispatcher [employer] EDMS Dennys Yu MD MD rn Sims, Marcus, DO DO ms3 Maye Artis RN RN km8 Danyel Henning RN RN bm8 Linda Kat RN ko1 Corrections: (The following items were deleted from the chart) 06:18 06:15 Patient reports history of chronic back pain, was mowing his pasture yesterday, 3 rn [place] on riding lawnmower, reports since then has been having worsening left lower back pain. Nonradiating. No bowel or bladder incontinence or problems. No weakness of lower extremities. Patient reports using his 's wheelchair to get around because of the pain. Patient states limited by pain and not by weakness. No direct trauma. Patient took 2 tramadol prior to arrival and has helped his pain a little bit. Denies any chest or abdominal pain. No fever. No drug use.. rn 06:34 06:31 Home Meds: amlodipine 5 mg tab 1 tab twice a day; bm8 bm8
--- NOTE | 2023-09-06 08:04 | ER ---
Nurse's Notes [facility] Name: Tripp Webster Age: 58 yrs Sex: Male : 1965 Arrival Date: 09/06/2023 Time: 06:11 Bed 8 Private MD: Diagnosis: Low back pain Presentation: 09/05 06:05 Initial Sepsis Screen: Does the patient meet any 2 criteria? No. Patient's initial bm8 sepsis screen is negative. Does the patient have a suspected source of infection? No. Patient's initial sepsis screen is negative. Risk Assessment: Do you want to hurt yourself or someone else? Patient reports no desire to harm self or others. Note pt took 100mg of tramadol at 0400, advil 600 mg at 0100, 12 units of regular insulin \T\0400. Onset of symptoms was September 05, 2023 at 21:00. Care prior to arrival: Glucose check: 238. 06:05 Acuity: MIRIAM 3 bm8 06:25 Chief complaint: Patient states: pt reports lower back pain after using riding lawn bm8 mower to cut three acres this afternoon. Coronavirus screen: Vaccine status: Client denies travel out of the [place] in the last 14 days. At this time, the client does not indicate any symptoms associated with coronavirus-19. Ebola Screen: Patient negative for fever greater than or equal to 101.5 degrees Fahrenheit, and additional compatible Ebola Virus Disease symptoms. 06:25 Method Of Arrival: EMS: [facility] bm8 Triage Assessment: 06:31 General: Appears uncomfortable, Behavior is calm, cooperative. Pain: Complains of pain bm8 in back Pain does not radiate. Pain currently is 7 out of 10 on a pain scale. Quality of pain is described as aching, crampy, Pain began 1 day ago. Is continuous, Alleviated by medications, Aggravated by increased activity, repositioning. EENT: No signs and/or symptoms were reported regarding the EENT system. Neuro: Level of Consciousness is awake, alert, obeys commands, Oriented to person, place, time, situation. Cardiovascular: Denies chest pain, shortness of breath, Capillary refill < 3 seconds Patient's skin is warm and dry. Cardiovascular: Edema is 1+ to left ankle, left foot, right ankle and right foot. Respiratory: No deficits noted. Reports Airway is patent Respiratory effort is even, unlabored, Respiratory pattern is regular. GI: No signs and/or symptoms were reported involving the gastrointestinal system. : No signs and/or symptoms were reported regarding the genitourinary system. Derm: healing wound on left anterior santoro approx two palms. Musculoskeletal: Range of motion: limited in back Reports weakness in back pain in back since 2100 yesterday. Pain is 7 out of 10 on a pain scale. Historical: - Allergies: :31 No Known Allergies; bm8 - PMHx: :31 CAD; depressive disorder; Diabetes - IDDM; GERD; Hypercholesterolemia; Hypertension; bm8 Myocardial infarction; neuropathy; - PSHx: 06:31 Coronary artery bypass graft; cardiac stents; bm8 - Immunization history:: Adult Immunizations unknown. - Social history:: Smoking status: Patient reports the use of cigarette tobacco products, Patient/guardian denies using. - Family history:: not pertinent. - Hospitalizations: : No recent hospitalization is reported. Screenin:41 [facility] ED Fall Risk Assessment (Adult) History of falling in the last 3 months, bm8 including since admission No falls in past 3 months (0 pts) Confusion or Disorientation No (0 pts) Intoxicated or Sedated No (0 pts) Impaired Gait Yes (1 pt) Mobility Assist Device Used No (0 pt) Altered Elimination No (0 pt) Score/Fall Risk Level 0 - 2 = Low Risk Oriented to surroundings, Maintained a safe environment, Educated pt \T\ family on fall prevention, incl call for assistance when getting out of bed, Assessed \T\ reinforced patient's understanding of fall precautions. Abuse screen: Denies threats or abuse. Nutritional screening: No deficits noted. Tuberculosis screening: No symptoms or risk factors identified. Assessment: 06:41 Reassessment: see triage assessment. bm8 07:12 Reassessment: report to vazquez ortiz. bm8 07:15 Reassessment: PT RETURNED FROM CT. ALL CURRENT ORDERS COMPLETED. bp Vital Signs: 06:05 BP 148 / 69; Pulse 85; Resp 18; Temp 97.9; Pulse Ox 100% on R/A; Weight 97.98 kg; bm8 Height 05 ft. 11 in. ; Pain 7/10; 07:15 BP 137 / 71; Pulse 75; Resp 16; Pulse Ox 97% ; bp 06:05 Body Mass Index 30.13 (97.98 kg, 180.34 cm) bm8 06:05 Pain Scale: Adult bm8 [place] Coma Score: 06:41 Eye Response: spontaneous(4). Motor Response: obeys commands(6). Verbal Response: bm8 oriented(5). Total: 15. ED Course: 06:05 Arm band placed on right wrist. Patient placed in an exam room, in the treatment room, bm8 on pulse oximetry, Patient's private physician notified. 06:13 Patient arrived in ED. km8 06:13 Dennys Yu MD is Attending Physician. rn 06:25 Danyel Henning, RN is Primary Nurse. bm8 06:31 Triage completed. bm8 06:41 Patient has correct armband on for positive identification. Bed in low position. Call bm8 light in reach. Side rails up X 1. Pulse ox on. NIBP on. Door closed. Noise minimized. Warm blanket given. Pillow given. 06:41 Inserted saline lock: 20 gauge in right upper arm, using aseptic technique. Blood bm8 collected. 06:58 CT Lumbar Spine Wo Con In Process Unspecified. EDMS 06:58 CT Thoracic Spine Wo Cont In Process Unspecified. EDMS 07:03 Patient moved back from CT. km8 07:16 Primary Nurse role handed off by Danyel Henning, RN ko1 07:16 Linda Kat, RN is Primary Nurse. ko1 07:40 Assisted with urinal. ko1 07:40 IV discontinued, intact, bleeding controlled, No redness/swelling at site. Pressure ko1 dressing applied. 07:42 No provider procedures requiring assistance completed. ko1 07:54 Attending Physician role handed off by Dennys Yu MD ms3 07:54 Leonard Kincaid DO is Attending Physician. ms3 08:00 Provided Education on: na. ko1 08:02 Michael Grullon DO is Referral Physician. ms3 Administered Medications: 06:27 Drug: Gabapentin PO 300 mg PO once Route: PO; km8 07:15 Follow up: Response: No adverse reaction ko1 06:28 Drug: morphine IVP or IV 4 mg IVP once over 4 mins Route: IVP; Infused Over: 4 mins; km8 Site: right upper arm; 07:00 Follow up: Response: No adverse reaction; Pain is decreased ko1 06:28 Drug: Ondansetron IVP 4 mg IVP once; over 2 minutes Route: IVP; Site: right upper arm; 8 07:00 Follow up: Response: No adverse reaction ko1 Medication: 06:41 VIS not applicable for this client. bm8 Outcome: 08:03 Discharge ordered by . ms3 08:11 Discharged to home via wheelchair, with family, ko1 08:11 Condition: stable 08:11 Discharge instructions given to patient, Instructed on discharge instructions, follow up and referral plans. medication usage, Demonstrated understanding of instructions, follow-up care, medications, Prescriptions given X 2, 08:15 Patient left the ED. ko1 Signatures: Dispatcher [employer] EDMS Dennys Yu MD MD rn Gerardo Cary, RN RN Leonard Davis DO DO ms3 Linda Kat, RN RN ko1 Maye Artis, RN RN km8 Danyel Henning, RN RN bm8 Corrections: (The following items were deleted from the chart) 06:34 06:31 Home Meds: amlodipine 5 mg tab 1 tab twice a day; bm8 bm8
[2023-09-06 08:33] VITALS: BP 137/71; O2SAT 97
== END ==
LOC: ER 06:11
DX: M54.50 Low back pain, unspecified (principal); Z72.0 Tobacco use
CPT/HCPCS: 72131; 72128; J2405; 96374; 96375; 99285

== ENCOUNTER 2023-09-09 16:08 | Inpatient (IN) | payer OTHER ==
[2023-09-09 16:37] LABS: Absolute Eosinophils 0.1 K/uL (0-0.5); Absolute Lymphocytes (CBC) 1.4 K/uL (0.7-4.9); Absolute Monocytes 0.6 K/uL (0.1-1.3); Absolute Neutrophil 6.9 K/uL (1.8-8.0); Basophils % 0.3 % (0-1.3); Eosinophils % 0.8 % (0-4.4); Hematocrit 32.9 % (39.6-49.0); Hemoglobin 10.8 g/dL (13.6-17.9); Lymphocytes % 15.6 % (15.3-44.8); MCH 26.8 pg (27.0-35.0); MCHC 32.9 g/dL (32.0-36.0); MCV 81.4 fL (80-100); MPV 7.5 fL (7.6-11.3); Monocytes % 7.2 % (3.3-12.3); Neutrophils % 76.1 % (41.7-73.7); Nucleated Red Blood Cells % 0.1 % (0-0); PT Prothrombin Time 11.5 SECONDS (9.5-12.5); PTT, Activated Partial Thromb 27.8 SECONDS (24.3-36.9); Platelets 335 thou/uL (152-406); Protime INR 1.05; RBC Red Blood Cell Count 4.04 M/uL (4.33-5.43); Red Cell Distribution Width 17.1 % (12.1-15.2)
[2023-09-09] MEDS ORDERED: ONDANSETRON 4 MG/2 ML VIAL ONE (16:44)
[2023-09-09 17:02] LABS: ALT/SGPT 15 U/L (16-61); AST/SGOT 14 U/L (15-37); Albumin 3.2 g/dL (3.4-5.0); Albumin/Globulin Ratio 0.8 (1.1-1.8); Alkaline Phosphatase 142 U/L (45-117); Anion Gap 11.8 mEq/L (5.0-15.0); BUN Blood Urea Nitrogen 14 mg/dL (7-18); Bicarbonate 24 mEq/L (21-32); Bilirubin Direct 0.2 mg/dL (0-0.2); Bilirubin Indirect, Calculated 0.7 mg/dL (0.2-0.8); Bilirubin Total 0.9 mg/dL (0.2-1.0); Creatine Phosphokinase 55 U/L (39-308); Globulin 4.2 g/dL (2.3-3.5); Glomerular Filtration Rate 77 ml/min (=/>90); Glucose Level 306 mg/dL (74-106); Lipase 11 U/L (13-75); Magnesium 1.6 mg/dL (1.6-2.4); Potassium 3.8 mEq/L (3.5-5.1); Protein, Total 7.4 g/dL (6.4-8.2); Sodium Level 139 mEq/L (136-145); Troponin High Sensitivity 23.4 pg/mL (<58.9)
--- NOTE | 2023-09-09 17:31 | RAD REPORT ---
EXAM DESCRIPTION: RADChest Single View09/09/2023 4:37 pm CLINICAL HISTORY: ams COMPARISON: Chest Single View dated 09/03/2023; Chest Single View dated 08/11/2023; Chest Single View dated 05/23/2023; Chest Single View dated 05/10/2023; Head C Spine Cap Wo Con dated 09/03/2023 TECHNIQUE: Portable AP view of the chest. FINDINGS: Mild progressive left basilar streaky opacities. No pneumothorax or effusion. Stable card iomegaly and median sternotomy. IMPRESSION: Mildly progressive appearance streaky opacities, may reflect atelectasis/scarring or ear ly airspace disease.
--- NOTE | 2023-09-09 17:42 | RAD REPORT ---
EXAM DESCRIPTION: CT - Head Brain Wo Cont - 09/09/2023 4:28 pm CLINICAL HISTORY: ams COMPARISON: Facial Bones W/ Mpr dated 11/30/2020; HEAD BRAIN W O CONTRAST dated 03/04/2011 TECHNIQUE: Noncontrast head CT images were obtained without IV contrast. Multiplanar reformats were generated and reviewed. All CT scans are performed using dose optimization technique as appropriate and may include automated exposure control or mA/KV adjustment according to patient size. FINDINGS: No intracranial hemorrhage, mass, or edema. Midline structures are unremarkable. Normal ventricular caliber for age. Alvarado-white matter differentiation is preserved, without evidence of acute infarct. No abnormal extra- axial fluid collections. Mastoid air cells and visualized portions of the paranasal sinuses are clear. No acute bony findings. IMPRESSION: No evidence of an acute intracranial process.
--- NOTE | 2023-09-09 18:51 | ER ---
Nurse's Notes [facility] Name: Tripp Webster Age: 58 yrs Sex: Male : 1965 Arrival Date: 09/09/2023 Time: 16:08 Bed 8 Private MD: Diagnosis: Altered mental status Presentation: 09/08 16:17 Chief complaint: EMS states: Pt from home, called EMS for AMS, pt found sitting ph naked on end of bed, had vomited a large amount of clear fluid, BGL 288, VSS, normally A\\T\\O x 4, upon arrival to ED pt oriented to person and place only, keeps repeating " What's going on? Please stop." Unknown when symptoms began. Coronavirus screen: Vaccine status: Patient reports receiving the 1st dose of the Covid vaccine. Ebola Screen: No symptoms or risks identified at this time. Initial Sepsis Screen: Does the patient meet any 2 criteria? No. Patient's initial sepsis screen is negative. Does the patient have a suspected source of infection? No. Patient's initial sepsis screen is negative. Risk Assessment: Do you want to hurt yourself or someone else? Patient reports no desire to harm self or others. Onset of symptoms was September 09, 2023. 16:17 Method Of Arrival: EMS: [facility] 16:17 Acuity: MIRIAM 2 ph Triage Assessment: 16:25 General: Appears in no apparent distress. Behavior is anxious, fussy. Pain: Denies ph pain. Neuro: Level of Consciousness is awake, alert, obeys commands, confused, Oriented to person, place, Moves all extremities. Full function Speech is normal, Facial symmetry appears normal. Cardiovascular: Capillary refill < 3 seconds in bilateral fingers Patient's skin is warm and dry. Respiratory: Airway is patent Respiratory effort is even, unlabored. GI: Reports nausea, vomiting, Patient currently denies abdominal pain. Derm: Skin is pale. Musculoskeletal: Circulation, motion, and sensation intact. Range of motion: intact in all extremities. Historical: - Allergies: 16:22 No Known Allergies; ph - PMHx: 16:22 CAD; depressive disorder; Diabetes - IDDM; GERD; Hypercholesterolemia; Hypertension; ph Myocardial infarction; neuropathy; - PSHx: 16:22 cardiac stents; Coronary artery bypass graft; ph - Immunization history:: Adult Immunizations unknown. - Social history:: Smoking status: unknown. - Family history:: not pertinent. Screenin:26 [facility] ED Fall Risk Assessment (Adult) History of falling in the last 3 months, ph including since admission Yes- fall prone (multiple falls) (3 pts) Confusion or Disorientation Yes (5 pts) Intoxicated or Sedated No (0 pts) Impaired Gait No (0 pts) Mobility Assist Device Used No (0 pt) Altered Elimination No (0 pt) Score/Fall Risk Level 0 - 2 = Low Risk Oriented to surroundings, Maintained a safe environment, Provided non-skid footwear, Hourly rounding (assess needs \\T\\ fall precautionary measures) done. Abuse screen: Denies threats or abuse. Has been threatened or abused. Nutritional screening: No deficits noted. Tuberculosis screening: No symptoms or risk factors identified. Assessment: 16:27 General: SEE TRIAGE ASSESSMENT. ph 16:55 Reassessment: Patient appears in no apparent distress at this time. Patient and/or ph family updated on plan of care and expected duration. Pain level reassessed. Pt repeatedly yelling, "Please stop, please stop." VSS at this time, will continue to monitor. 17:55 Reassessment: Patient appears in no apparent distress at this time. Pt resting w/ eyes ph closed. 18:58 Reassessment: Patient appears in no apparent distress at this time. Patient and/or ph family updated on plan of care and expected duration. Pain level reassessed. Dr Hull at bedside to speak w/ pt, pt now repeating birthday, "[birth year]" Pt able to use urinal to provide urine sample. 19:50 General: Appears uncomfortable, Behavior is cooperative. Pain: Complains of pain in ha1 back and sore throat Pain does not radiate. Unable to use pain scale. FLACC scale score is 6 out of 10. Neuro: Level of Consciousness is awake, alert, obeys commands, Oriented to person, place. Cardiovascular: Capillary refill < 3 seconds Patient's skin is warm and dry. Respiratory: Airway is patent Respiratory effort is even, unlabored, Respiratory pattern is regular, symmetrical. GI: Abdomen is round non-distended. Musculoskeletal: Circulation, motion, and sensation intact. 20:50 Reassessment: Patient and/or family updated on plan of care and expected duration. Pain ha1 level reassessed. 21:15 Reassessment: Reassessment: fax sheet sent. confirmed with KAMILLA Storey fax sheet ha1 received. Vital Signs: 16:17 BP 188 / 86; Pulse 89; Resp 18; Temp 97.6; Pulse Ox 100% on R/A; Weight 95.25 kg; ph Height 5 ft. 11 in. ; 16:58 BP 163 / 72; Pulse 85; Resp 18; Pulse Ox 100% on R/A; ph 18:19 BP 138 / 67; Pulse 86; Resp 18; Pulse Ox 99% on R/A; ph 20:00 BP 174 / 81; Pulse 100; Resp 17 S; Temp 99.4(O); Pulse Ox 100% on R/A; ha1 20:31 BP 156 / 67; Pulse 103; Resp 19; Pulse Ox 100% on R/A; ha1 16:17 Body Mass Index 29.29 (95.25 kg, 180.34 cm) ph Vitals: 16:58 Cardiac Rhythm Assessment Sinus rhythm. ph ED Course: 16:12 Patient arrived in ED. aa5 16:12 Umer Florentino MD is Attending Physician. rt 16:17 Lisa Yen RN is Primary Nurse. ph 16:22 Triage completed. ph 16:23 EKG done, by ED staff, reviewed by Umer Florentino MD. aa5 16:23 Inserted saline lock: 20 gauge in right wrist, using aseptic technique. Blood collected.ds4 16:24 Arm band placed on Patient placed in an exam room. ph 16:26 Patient has correct armband on for positive identification. Placed in gown. Bed in low ph position. Call light in reach. Side rails up X2. Client placed on continuous cardiac and pulse oximetry monitoring. NIBP monitoring applied. satellite project site monitor on. Door closed. Noise minimized. Warm blanket given. Verbal reassurance given. 16:[address] via stretcher. ph 16:30 CT Head Brain wo Cont In Process Unspecified. EDMS 16:38 XRAY Chest (1 view) In Process Unspecified. EDMS 18:49 Raven Hull MD is Hospitalizing Provider. rt 18:57 No provider procedures requiring assistance completed. Patient admitted, IV remains in ph place. Administered Medications: 17:00 Drug: Ondansetron IVP 4 mg IVP once; over 2 minutes Route: IVP; Site: right wrist; ph 19:50 Follow up: Response: No adverse reaction rv Medication: 16:26 VIS not applicable for this client. ph Outcome: 18:50 Decision to Hospitalize by Provider. rt 22:06 Admitted to Tele accompanied by nurse, via stretcher, room 426, Report called to rv admission papers faxed and received by spring intern 22:06 Condition: good 22:06 Instructed on the need for admit, 22:07 Patient left the ED. rv Signatures: Dispatcher [employer] EDDeepali Ramon RN RN Deven Pineda ds4 Lisa Yen RN RN Mj Wolf RN RN Annie Valdovinos RN RN ha1 Umer Florentino MD MD rt Corrections: (The following items were deleted from the chart) 21:25 21:23 Reassessment: jc greene
--- NOTE | 2023-09-09 18:51 | EDPHYS ---
Physician Documentation [facility] Name: Tripp Webster Age: 58 yrs Sex: Male : 1965 Arrival Date: 09/09/2023 Time: 16:08 Bed 8 Private MD: ED Physician Umer Florentino HPI: 09/08 17:55 This 58 yrs old Male presents to ER via EMS with complaints of Altered Mental Status, rt Vomiting. 17:55 History limited due to patient with altered mental status. The patient presents to the rt ED with confusion, reportedly is alert and oriented. Is unclear what the timing of onset is. No further history could be obtained, symptoms are moderate in severity, no other aggravating or alleviating factors.. Historical: - Allergies: 16:22 No Known Allergies; ph - PMHx: 16:22 CAD; depressive disorder; Diabetes - IDDM; GERD; Hypercholesterolemia; Hypertension; ph Myocardial infarction; neuropathy; - PSHx: 16:22 cardiac stents; Coronary artery bypass graft; ph - Immunization history:: Adult Immunizations unknown. - Social history:: Smoking status: unknown. - Family history:: not pertinent. ROS: 17:55 Neuro: Positive for altered mental status, rt 17:55 Unable to obtain ROS due to altered mental status, Exam: 17:55 Constitutional: This is a well developed, well nourished patient who is awake, alert, rt and in no acute distress. Head/Face: Normocephalic, atraumatic. Chest/axilla: Normal chest wall appearance and motion. Nontender with no deformity. No lesions are appreciated. Cardiovascular: Regular rate and rhythm with a normal S1 and S2. No gallops, murmurs, or rubs. Normal PMI, no JVD. No pulse deficits. Respiratory: Lungs have equal breath sounds bilaterally, clear to auscultation and percussion. No rales, rhonchi or wheezes noted. No increased work of breathing, no retractions or nasal flaring. Abdomen/GI: Soft, non-tender, with normal bowel sounds. No distension or tympany. No guarding or rebound. No evidence of tenderness throughout. Skin: Warm, dry with normal turgor. Normal color with no rashes, no lesions, and no evidence of cellulitis. MS/ Extremity: Pulses equal, no cyanosis. Neurovascular intact. Full, normal range of motion. 17:55 ECG was reviewed by the Attending Physician. 17:55 Neuro: Moves all 4 extremities equally, has repetitious question answering., Vital Signs: 16:17 BP 188 / 86; Pulse 89; Resp 18; Temp 97.6; Pulse Ox 100% on R/A; Weight 95.25 kg; ph Height 5 ft. 11 in. ; 16:58 BP 163 / 72; Pulse 85; Resp 18; Pulse Ox 100% on R/A; ph 18:19 BP 138 / 67; Pulse 86; Resp 18; Pulse Ox 99% on R/A; ph 20:00 BP 174 / 81; Pulse 100; Resp 17 S; Temp 99.4(O); Pulse Ox 100% on R/A; ha1 20:31 BP 156 / 67; Pulse 103; Resp 19; Pulse Ox 100% on R/A; ha1 16:17 Body Mass Index 29.29 (95.25 kg, 180.34 cm) ph MDM: 16:13 Patient medically screened. rt 18:50 Differential Diagnosis: UTI, AMS, electrolyte disturbance, intracranial hemorrhage. rt Data reviewed: vital signs, nurses notes, lab test result(s), EKG, radiologic studies. Consideration of Admission/Observation Escalation of care including admission/observation considered. Management of patient was discussed with the following: Hospitalist: Agrees to admit. Independent interpretation of the following test(s) in the Emergency Department CT Scan: My interpretation is No intracranial hemorrhage seen on interpretation of CT scan images. Care significantly affected by the following chronic conditions: Diabetes. Counseling: I had a detailed discussion with the patient and/or guardian regarding the historical points, exam findings, and any diagnostic results supporting the discharge/admit diagnosis, lab results, radiology results, the need for further work-up and treatment in the hospital. Response to treatment: There is no appreciated change of the patient's symptoms at this time. 09/08 16:14 Order name: Acetaminophen; Complete Time: 17:52 rt 09/08 16:14 Order name: Basic Metabolic Panel; Complete Time: 17:52 rt 09/08 16:14 Order name: CBC with Diff; Complete Time: 17:52 rt 09/08 16:14 Order name: ETOH Level; Complete Time: 17:52 rt 09/08 16:14 Order name: Hepatic Function; Complete Time: 17:52 rt 09/08 16:14 Order name: PT-INR; Complete Time: 17:52 rt 09/08 16:14 Order name: Ptt, Activated; Complete Time: 17:52 rt 09/08 16:14 Order name: Salicylate; Complete Time: 18:11 rt 09/08 16:14 Order name: Urinalysis w/ reflexes rt 09/08 16:14 Order name: Urine Drug Screen rt 09/08 16:14 Order name: Magnesium; Complete Time: 17:52 rt 09/08 16:14 Order name: Troponin HS; Complete Time: 17:52 rt 09/08 16:14 Order name: Lipase; Complete Time: 17:52 rt 09/08 16:14 Order name: CPK; Complete Time: 17:52 rt 09/08 20:57 Order name: Ammonia EDMS 09/08 20:57 Order name: Ammonia EDMS 09/08 20:57 Order name: CBC with Automated Diff EDMS 09/08 20:57 Order name: CBC with Automated Diff EDMS 09/08 20:57 Order name: Comprehensive Metabolic Panel EDMS 09/08 20:57 Order name: Comprehensive Metabolic Panel EDMS 09/08 20:57 Order name: Lipid Profile EDMS 09/08 20:57 Order name: Lipid Profile EDMS 09/08 20:57 Order name: Protime (+INR) EDMS 09/08 20:57 Order name: Protime (+INR) EDMS 09/08 20:57 Order name: PTT, Activated Partial Thromb EDMS 09/08 20:57 Order name: PTT, Activated Partial Thromb EDMS 09/08 20:57 Order name: Troponin High Sensitivity EDMS 09/08 20:57 Order name: Troponin High Sensitivity EDMS 09/08 16:14 Order name: XRAY Chest (1 view); Complete Time: 17:52 rt 09/08 16:14 Order name: CT Head Brain wo Cont; Complete Time: 17:52 rt 09/08 20:57 Order name: Brain Wo Cont EDMS 09/08 20:57 Order name: Brain Wo Cont EDMS 09/08 16:14 Order name: EKG; Complete Time: 16:15 rt 09/08 16:14 Order name: EKG - Nurse/Tech; Complete Time: 16:22 rt 09/08 16:14 Order name: IV Saline Lock; Complete Time: 16:24 rt 09/08 16:14 Order name: Labs collected and sent; Complete Time: 16:24 rt 09/08 16:14 Order name: Suicide Screening ([place]); Complete Time: 19:17 rt 09/08 16:14 Order name: Cardiac monitoring; Complete Time: 16: rt 09/08 16:14 Order name: O2 Per Protocol; Complete Time: 16: rt 09/08 16:14 Order name: O2 Sat Monitoring; Complete Time: 16:22 rt EC:55 Rate is 89 beats/min. Rhythm is regular, Normal Sinus Rhythm with No ectopy. QRS [place] rt is Normal. [place] interval is normal. QRS interval is normal. No Q waves. T waves are Normal. No ST changes noted. Interpreted by me. Administered Medications: 17:00 Drug: Ondansetron IVP 4 mg IVP once; over 2 minutes Route: IVP; Site: right wrist; ph 19:50 Follow up: Response: No adverse reaction rv Disposition Summary: 09/09/23 18:50 Hospitalization Ordered Notes: Hospitalization Status: Observation rt Provider: Raven Hull rt Location: Telemetry/MedSurg (observation) rt Condition: Stable rt Problem: new rt Symptoms: are unchanged rt Bed/Room Type: Standard rt Room Assignment: 426(09/09/23 21:08) cg Diagnosis - Altered mental status rt Forms: - Medication Reconciliation Form rt - SBAR form rt - Leadership Thank You Letter rt Signatures: Dispatcher [employer] Lisa Salomon RN RN Anya Horne RN RN Umer Florentino MD MD rt Mj Wolf RN rv Corrections: (The following items were deleted from the chart) 21:08 18:50 rt cg
[2023-09-09 19:27] LABS: Sqamous Epithelial None Seen /HPF (None Seen); Urine Bacteria None Seen /HPF (<20); Urine Culture Reflex Order NOT NEEDED; Urine Mucus Slight /HPF (None Seen); Urine RBC <5 /HPF (None Seen); Urine WBC <5 /HPF (<5)
[2023-09-09 19:40] LABS: Barbiturates NEGATIVE (NEGATIVE); Benzodiazepines NEGATIVE (NEGATIVE); Cocaine NEGATIVE (NEGATIVE); METHAMPHETAM NEGATIVE (NEGATIVE); Methadone NEGATIVE (NEGATIVE); Opiates NEGATIVE (NEGATIVE); Phencyclidine NEGATIVE (NEGATIVE); THC Cannibis NEGATIVE (NEGATIVE)
[2023-09-09 19:49] LABS: Specific Gravity 1.017 (1.005-1.030); Urine Bilirubin NEGATIVE (Negative); Urine Blood Negative (Negative); Urine Clarity Clear (Clear); Urine Color Colorless (Yellow); Urine Glucose 4+ (Over) (Negative); Urine Ketones 2+ (Negative); Urine Microscopic Reflex YN NO UMIC; Urine Nitrite NEGATIVE (Negative); Urine Protein NEGATIVE (Negative); Urine Urobilinogen Normal (Normal)
--- NOTE | 2023-09-09 20:45 | P.HP ---
Certification for Inpatient Patient admitted to: Inpatient With expected LOS: >2 Midnights Patient will require the following post-hospital care: None Practitioner: I am a practitioner with admitting privileges, knowledge of patient current condition, hospital course, and medical plan of care. Services: Services provided to patient in accordance with Admission requirements found in Title 42 Section 412.3 of the Code of Federal Regulations Patient History Date of Service: 09/09/23 Reason for admission: AMS History of Present Illness: Patient is a 58-year-old gentleman who came to the hospital with altered mentation. He is obtained from the as patient is repeating a lot of the answers to his questions. According to his his behavior has been very abnormal. He gets mad at her quite a bit and yells and scream scattered throughout the day. He had not been like that up until his CABG last January. He had a two-vessel CABG in 2022. He also had a stent placed at that time. He had to go back into his surgery to have the stent removed. Patient follows up with cardiology Dr. Bonds. According to the after his coronary artery bypass graft his demeanor changed. She is a double amputee, and he used to nice to her. As of late he has been doing a lot of yelling and screaming at her. Yesterday he surrounded her and she felt unsafe so she called 911. She was told that she could not do anything because he did not harm her. She has been a little afraid with the way he has been treating her. Today he had been asleep during the day. When his woke up she had gone outside to check on the animals. When she came back to the back door she asked for him to open the door. He started screaming at her and asking her where she was. He kept asking her over and over again where she was located. She told him she was at the back door but he seemed like he was not able to understand what she was saying. She called the paramedics because she felt like she was hypoglycemic. Normally when the paramedics come to the house they have placed on standby because the patient has become violent in the past. He apparently has been addicted to pain medication, and he uses hydrocodone's at home regularly. He is also followed up with his doctor recently and she feels like he was prescribed some new medications. She asked him what he was prescribed and he told her it was none of her business. He gets very aggressive to her whenever she is trying to ask him about his health. She states that he when he gets into the hospital he left to ask for Dilaudid. When he goes home he normally takes 3-4 times the dose of hydrocodone that he is supposed to be taking. However, patient's urine drug screen today has been unremarkable. Patient's labs are also fairly unremarkable. CT of the head was negative. Chest x-ray with no abnormality. Patient will be admitted to the hospital for inpatient hospitalization for altered mental status. Will work him up neurologically and if his workup is negative including MRI of the brain then he may need to be referred to [facility] for behavioral disturbances. Allergies No Known Allergies Allergy (Verified 04/12/23 06:04) Home Medications: Aspirin Chewable [Aspirin Chewable*] 81 mg PO DAILY 04/12/23 Atorvastatin Calcium [Lipitor] 80 mg PO DAILY 04/12/23 Clopidogrel Bisulfate [Plavix*] 75 mg PO DAILY 04/12/23 Magnesium Oxide [Mag 0X*] 400 mg PO DAILY 04/12/23 Citalopram Hydrobromide [Celexa] 20 mg PO DAILY 09/03/23 Gabapentin 300 mg PO BID 09/03/23 Hydrocodone 10/APAP 325 [[place] 10/325*] 1 tab PO Q6H PRN 09/03/23 Insulin 70/30 NPH/Reg Human [Novolin 70/30*] 32 unit SQ BREAKFAST 09/03/23 Aspirin Chewable [Aspirin Chewable*] 81 mg PO DAILY tab.chew 09/04/23 Atorvastatin Calcium [Lipitor] 80 mg PO DAILY tab 09/04/23 Citalopram [Celexa*] 20 mg PO DAILY 09/04/23 Clopidogrel Bisulfate [Plavix*] 75 mg PO DAILY 09/04/23 Insulin 70/30 NPH/Reg Human [Novolin 7030*] 20 unit SQ BIDAC ml 09/04/23 - Past Medical/Surgical History Diabetic: Yes -: Hypertension -: Diabetes mellitus type 2 insulin dependent -: CAD with prior stent -: Hyperlipidemia -: Diabetic neuropathy -: Obesity -: Sleep apnea noncompliant -: CVA -: Chronic diastolic congestive heart failure -: Stent placement x5 -: back surgery -: ble vascular sx -: Appendectomy -: Multiple debridement left great toe -: cabg 02/03/23-2v Psychosocial/ Personal History: Patient is - Family History Father Medical History: Heart disease, Diabetes Mother Medical History: Heart disease - Social History Smoking Status: Former smoker Alcohol use: No CD- Drugs: No Caffeine use: No Review of Systems is unable to be obtained Physical Examination - Vital Signs Temperature: 98 F Blood Pressure: 160/80 Pulse: 80 Respirations: 18 Pulse Ox (%): 95 - Physical Exam General: Alert, In no apparent distress, Confused, Delirious HEENT: Atraumatic, PERRLA, Mucous membr. moist/pink, EOMI, Sclerae nonicteric Neck: Supple, 2+ carotid pulse no bruit, No LAD, Without JVD or thyroid abnormality Respiratory: Diminished, Expiratory wheezes Cardiovascular: Regular rate/rhythm, Normal S1 S2, Systolic murmur Gastrointestinal: Normal bowel sounds, Soft and benign, Non-distended, No tenderness Musculoskeletal: No clubbing, No swelling, No tenderness Integumentary: No rashes Neurological: Sensation intact, Cranial nerves 3-12 intact, Abnormal affect Lymphatics: No axilla or inguinal lymphadenopathy - Studies Laboratory Data (last 24 hrs) 09/09/23 09/09/23 09/09/23 16:20 16:20 16:20 WBC 9.10 Hgb 10.8 L Hct 32.9 L Plt Count 335 PT 11.5 INR 1.05 APTT 27.8 Sodium 139 Potassium 3.8 BUN 14 Creatinine 1.10 Glucose 306 H Magnesium 1.6 Total Bilirubin 0.9 AST 14 L ALT 15 L Alkaline Phosphatase 142 H Lipase 11 L Assessment & Plan - Problems (Diagnosis) (1) AMS (altered mental status) Current Visit: Yes Status: Acute (2) Substance abuse Current Visit: Yes Status: Acute (3) CVA (cerebral vascular accident) Current Visit: No Status: Acute (4) Depression Current Visit: No Status: Acute (5) H/O heart artery stent Current Visit: No Status: Acute (6) Diabetes Current Visit: No Status: Chronic (7) Essential (primary) hypertension Current Visit: No Status: Chronic - Plan Plan: 1. Patient with altered mental status; unknown etiology. UA was negative chest x-ray is negative and CT of the head is unremarkable. Electrolytes are unremarkable. Urine drug screen is negative. Patient's states he abuses pain medications; however, his drug screen is negative for opiates. Currently he is repeating a lot of the questions were asking him. We asked him his date of he said 23rd and he repeated this at least 20 times. When I asked him what his name was he kept saying 23rd. Patient's symptoms are concerning for an acute CVA. CT of the head was negative but we will get an MRI of the brain if patient will tolerate it. He may need to be sedated for it we will get the MRI. If his MRI and his neurologic workup is unremarkable, then we may need to refer him to a [facility] facility. Going to the , his mood has been very unstable. Hide when he is cordial but there are other times when he is very mean to the point she is afraid to be around him. Will hydrate patient and we will wait for imaging studies. If all this comes back negative then we will get referral to [facility]. Will go ahead and start him on Seroquel and we may be able to add Depakote to his regimen. Will see how he does with Seroquel. 2. History of diabetes; strict blood pressure and blood sugar control 3. History of hypertension; continue with antihypertensives 4. Anemia of chronic disease; check iron levels and B12 levels 5. GI DVT prophylaxis Discharge Plan: Home Plan to discharge in: Greater than 2 days - Advance Directives Does patient have a Living Will: No Does patient have a Durable POA for Healthcare: No - Code Status/Comfort Care Code Status Assessed: Yes Code Status: Full Code Critical Care: No Time Spent Managing PTS Care (In Minutes): 45
[2023-09-09] MEDS ORDERED: ONDANSETRON 4 MG/2 ML VIAL IV PRN (20:48)
[2023-09-09] MEDS: QUETIAPINE 25 MG TAB PO SCH ×2 (21:00→22:40)
[2023-09-09] MEDS ORDERED: MORPHINE 2 MG/ML SYR ONE (21:12)
[2023-09-09] MEDS: MORPHINE 2 MG/ML SYR IV PRN (21:15)
[2023-09-09] MEDS: HALOPERIDOL LACT 5 MG/ML INJ IV PRN (22:40)
[2023-09-09] MEDS: INSULIN REGULAR (HUMAN) 100 UNIT/ML SQ SCH (22:40)
[2023-09-09] MEDS: NA CHLORIDE 0.9% 1,000 ML IV SCH (22:41)
[2023-09-09] MEDS: HYDROMORPHONE HCL 1 MG/ML INJ IV ONE (22:57)
[2023-09-09 23:12] VITALS: O2SAT 100
[2023-09-10 00:41] VITALS: BMI 29.2
[2023-09-10] MEDS: HYDROMORPHONE HCL 0.5 MG/0.5 ML INJ IV PRN (02:50)
[2023-09-10] MEDS: QUETIAPINE 25 MG TAB PO SCH (07:30)
[2023-09-10] MEDS: LORazepam 2 MG/ML VIAL ONE (07:48)
[2023-09-10] MEDS: LORazepam 2 MG/ML VIAL IV ONE ×2 (07:53→12:41)
[2023-09-10] MEDS: DIVALPROEX DR 250 MG TAB PO SCH (09:00)
[2023-09-10 09:03] LABS: Percent Reticulocyte Count 1.17 % (0.4-2.05); RBC Red Blood Cell Count 3.29 M/uL (4.33-5.43)
[2023-09-10 09:04] LABS: Absolute Eosinophils 0.1 K/uL (0-0.5); Absolute Lymphocytes (CBC) 1.4 K/uL (0.7-4.9); Absolute Monocytes 0.5 K/uL (0.1-1.3); Absolute Neutrophil 4.7 K/uL (1.8-8.0); Basophils % 0.7 % (0-1.3); Eosinophils % 1.7 % (0-4.4); Hematocrit 27.2 % (39.6-49.0); Hemoglobin 9.1 g/dL (13.6-17.9); Lymphocytes % 20.7 % (15.3-44.8); MCH 27.5 pg (27.0-35.0); MCHC 33.5 g/dL (32.0-36.0); MCV 81.9 fL (80-100); MPV 7.3 fL (7.6-11.3); Monocytes % 7.8 % (3.3-12.3); Neutrophils % 69.1 % (41.7-73.7); Platelets 324 thou/uL (152-406); RBC Red Blood Cell Count 3.32 M/uL (4.33-5.43); Red Cell Distribution Width 17.3 % (12.1-15.2)
[2023-09-10 09:06] LABS: PT Prothrombin Time 12.5 SECONDS (9.5-12.5); PTT, Activated Partial Thromb 29.5 SECONDS (24.3-36.9); Protime INR 1.14
[2023-09-10] MEDS ORDERED: WATER FOR INJ,STERILE 10 ML IM PRN (09:41)
[2023-09-10 09:43] LABS: Albumin 2.7 g/dL (3.4-5.0); Albumin/Globulin Ratio 0.8 (1.1-1.8); Anion Gap 11.9 mEq/L (5.0-15.0); Bilirubin Total 0.8 mg/dL (0.2-1.0); C-Reactive Protein 6.75 mg/L (<3.00); Globulin 3.5 g/dL (2.3-3.5); Magnesium 1.9 mg/dL (1.6-2.4); Potassium 3.9 mEq/L (3.5-5.1); Protein, Total 6.2 g/dL (6.4-8.2); Thyroid Stimulating Hormone 1.95 uIU/mL (0.358-3.740); Troponin High Sensitivity 20.6 pg/mL (<58.9)
[2023-09-10] MEDS: INSULIN 70/30 100 UNITS/ML SQ ONE (09:56)
[2023-09-10] MEDS: ZIPRASIDONE MESYLA 20 MG/VIAL IM PRN (10:07)
--- NOTE | 2023-09-10 11:51 | P.PN ---
Date of Service: 09/10/23 Subjective: Mino corazon called this morning d/t patient with increased agitation, combative with staff, trying to remove IV skin tear noted to area on left lower santoro from kicking side rail agitated / delirious / confused states his name, and in hospital, selective answering. undressing states he has been angry/agitated since his CABG took a "muscle relaxer" from a long time ago recently. Afterwards at some point, was more agitated than usual, naked, and repeating sentences states he got like this after CABG, and had to get "doped up" at hospital in [place], and tied down to bed, which he broke. Since then, has been "hooked on dilaudid" and suspects he has been taking extra insulin to get admitted to hospital to get dilaudid. ROS: 10 point ROS unable to be obtained Physical Exam: GEN: confused, delirious, yelling, oriented to self HEENT: Normal conjunctiva, sclera anicteric CV: Regular rate and rhythm, no edema, Systolic murmur Pulm: Nonlabored respirations on room air, Diminished at bases b/l ABD: Soft, nontender, nondistended Integumentary: skin tear noted to area on left lower santoro Neuro: moving all extremities equally, oriented to self, intermittently answers questions, vitals reviewed Problem List: Acute Encephalopathy, suspect secondary to substance use hx of substance abuse / dependence hx CAD with prior stents, now s/p CABG (02/03/23) Chronic diastolic CHF Hypertension Hyperlipidemia History of CVA IDDM2 with neuropathy Chronic joint pain Altered Mental Status hx of substance abuse hx CAD with prior stents, now s/p CABG (02/03/23) Patients reports patient has been more aggressive and feels like his demeanor has changed since his bypass graft in January 2023 Has been more agitated / combative / screaming recently. 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 CT head (09/08): negative for any acute intracranial process. CXR (09/08): mildly progressive left basilar streaky opacities; atelectasis/scarring vs early airspace disease MRI brain (09/09): ordered to further eval Dr. Espinal, neuro consulted neurochecks q6h monitor on telemetry, fall precautions PRN analgesics / antiemetics Code corazon called 09/09 d/t patient with increased agitation, combative with staff, trying to remove IV IV ativan 1mg x1 given 09/09 PRN amadeo thompson ordered continue seroquel, depakote may need natalee/psych consulted for behavioral disturbances Chronic diastolic CHF Hypertension Hyperlipidemia History of CVA confirm home meds, restart as appropriate IDDM2 with neuropathy confirm home meds restart 70/30, titrate up as appropriate patient not eating right now Chronic joint pain PRN analgesics Code: Full Dispo: Home, ~2 days Pending neuro recs / neuro workup
--- NOTE | 2023-09-10 11:52 | EKG ---
Test Date: 2023-09-09 Test Time: 16:09:11 Binder Lockstitch: ZAHRAA MEASUREMENT RESULTS: Intervals: Rate: 89 MT: 168 QRSD: 100 QT: 390 QTc: 474 Emory: P: 60 MT: 168 QRS: 47 T: 65 INTERPRETIVE STATEMENTS: Normal sinus rhythm Possible Left atrial enlargement Borderline ECG Compared to ECG 09/03/2023 16:51:55 Ventricular premature complex(es) no longer present Electronically Signed On 09-10-23 11:49:15 CDT by Keyur Bonds
[2023-09-10] MEDS: HYDROCODONE/APAP 5/325 MG TAB PO PRN (16:06)
[2023-09-11 07:25] LABS: Absolute Eosinophils 0.2 K/uL (0-0.5); Absolute Lymphocytes (CBC) 1.5 K/uL (0.7-4.9); Absolute Monocytes 0.8 K/uL (0.1-1.3); Absolute Neutrophil 7.9 K/uL (1.8-8.0); Basophils % 0.4 % (0-1.3); Eosinophils % 2.3 % (0-4.4); Hematocrit 29.1 % (39.6-49.0); Hemoglobin 9.7 g/dL (13.6-17.9); Lymphocytes % 14.5 % (15.3-44.8); MCH 27.4 pg (27.0-35.0); MCHC 33.3 g/dL (32.0-36.0); MCV 82.5 fL (80-100); MPV 7.2 fL (7.6-11.3); Monocytes % 7.8 % (3.3-12.3); Platelets 313 thou/uL (152-406); RBC Red Blood Cell Count 3.53 M/uL (4.33-5.43); Red Cell Distribution Width 17.5 % (12.1-15.2)
[2023-09-11 07:40] LABS: Anion Gap 15.7 mEq/L (5.0-15.0); Magnesium 1.9 mg/dL (1.6-2.4); Potassium 3.7 mEq/L (3.5-5.1)
--- NOTE | 2023-09-11 07:41 | P.PN ---
Date of Service: 09/11/23 Subjective: more oriented / alert today, responding to some questions appropriately. ambulated to restroom today much improved compared to yesterday, but still not at his baseline agitated / yelling continues throughout the day/night; +combative with staff. family state half of muscle relaxer bottle is empty, ~17 afebrile ROS: 10 point ROS unable to be obtained Physical Exam: GEN: confused, delirious, yelling, oriented to self and place HEENT: Normal conjunctiva, sclera anicteric CV: Regular rate and rhythm, no edema, Systolic murmur Pulm: Nonlabored respirations on room air, Diminished at bases b/l ABD: Soft, nontender, nondistended Integumentary: skin tear noted to area on left lower santoro Neuro: moving all extremities equally, oriented to self, intermittently answers questions, vitals reviewed Problem List: Acute Encephalopathy, suspect secondary to substance use hx of substance abuse / dependence hx CAD with prior stents, now s/p CABG (02/03/23) Chronic diastolic CHF Hypertension Hyperlipidemia History of CVA IDDM2 with neuropathy Chronic joint pain Acute Encephalopathy, suspect secondary to baclofen use hx of substance abuse / dependence hx CAD with prior stents, now s/p CABG (02/03/23) Patients reports patient has been more aggressive and feels like his demeanor has changed since his bypass graft in January 2023 Has been more agitated / combative / screaming recently. 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 Daughter states to her knowledge he has not been taking it consistently, and does not buy it from any dealers low suspicion at this time for withdrawal CT head (09/08): negative for any acute intracranial process. CXR (09/08): mildly progressive left basilar streaky opacities; atelectasis/ scarring vs early airspace disease MRI brain (09/09): ordered to further eval Dr. Espinal, neuro consulted neurochecks q6h monitor on telemetry, fall precautions PRN analgesics / antiemetics 3/30 - discussed with daughter and i called - states 17 pills of 20mg baclofen are missing from his bottle - prescribed long ago Chronic diastolic CHF Hypertension Hyperlipidemia History of CVA confirm home meds, restart as appropriate IDDM2 with neuropathy confirm home meds restart 70/30, titrate up as appropriate patient not eating right now Chronic joint pain PRN analgesics Code: Full Dispo: Home, ~2 days Pending neuro recs / mentation improves / non-combative
[2023-09-11] MEDS ORDERED: D50W 25 GM/50 ML SYRINGE IV PRN (17:26)
[2023-09-11] MEDS ORDERED: GLUCAGON 1 MG/VIAL IM PRN (17:26)
[2023-09-11] MEDS ORDERED: D10W 125 ML IV PRN (17:34)
[2023-09-11] MEDS: INSULIN 70/30 100 UNITS/ML SQ SCH (17:44)
[2023-09-12 07:03] VITALS: BP 160/74; TEMP 98.4
[2023-09-12 09:45] LABS: Absolute Basophils 0.1 K/uL (0-0.5); Absolute Eosinophils 0.4 K/uL (0-0.5); Absolute Lymphocytes (CBC) 1.5 K/uL (0.7-4.9); Absolute Monocytes 0.8 K/uL (0.1-1.3); Basophils % 0.6 % (0-1.3); Eosinophils % 4.4 % (0-4.4); Hematocrit 31.4 % (39.6-49.0); Hemoglobin 10.4 g/dL (13.6-17.9); Lymphocytes % 17.4 % (15.3-44.8); MCH 27.2 pg (27.0-35.0); MCHC 33.2 g/dL (32.0-36.0); MCV 81.9 fL (80-100); MPV 7.2 fL (7.6-11.3); Monocytes % 9.1 % (3.3-12.3); Neutrophils % 68.5 % (41.7-73.7); Nucleated Red Blood Cells % 0.1 % (0-0); Platelets 372 thou/uL (152-406); RBC Red Blood Cell Count 3.83 M/uL (4.33-5.43); Red Cell Distribution Width 17.5 % (12.1-15.2)
[2023-09-12] MEDS: CLOPIDOGREL 75 MG TABLET PO SCH (09:52)
--- NOTE | 2023-09-12 09:59 | P.PN ---
Date of Service: 09/12/23 Subjective: more oriented / alert today, responding to questions mostly appropriately today mentation seems to be significantly improved this morning. appears more cooperative, less combative ambulating without issues +sore throat ROS: 10 point ROS as noted above, otherwise negative Physical Exam: GEN: orientedx3, alert, not as agitated/combative today HEENT: Normal conjunctiva, sclera anicteric CV: Regular rate and rhythm, no edema, Systolic murmur Pulm: Nonlabored respirations on room air, Diminished at bases b/l ABD: Soft, nontender, nondistended Integumentary: skin tear noted to area on left lower santoro Neuro: moving all extremities equally, Normal speech, normal affect vitals reviewed Problem List: Acute Encephalopathy, suspect secondary to substance use hx of substance abuse / dependence hx CAD with prior stents, now s/p CABG (02/03/23) Chronic diastolic CHF Hypertension Hyperlipidemia History of CVA IDDM2 with neuropathy Chronic joint pain Acute Encephalopathy, suspect secondary to baclofen use hx of substance abuse / dependence hx CAD with prior stents, now s/p CABG (02/03/23) Patients reports patient has been more aggressive and feels like his demeanor has changed since his bypass graft in January 2023 Has been more agitated / combative / screaming recently. 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 Daughter states to her knowledge he has not been taking it consistently, and does not buy it from any dealers low suspicion at this time for withdrawal CT head (09/08): negative for any acute intracranial process. CXR (09/08): mildly progressive left basilar streaky opacities; atelectasis/scarring vs early airspace disease MRI brain (09/09): ordered to further jeanine Espinal, neuro consulted neurochecks q6h monitor on telemetry, fall precautions PRN analgesics / antiemetics 09/10 - discussed with daughter and i called - states 17 pills of 20mg baclofen are missing from his bottle - prescribed long ago Chronic diastolic CHF Hypertension Hyperlipidemia History of CVA confirm home meds, restart as appropriate IDDM2 with neuropathy confirm home meds resume 70/30, titrate up as appropriate patient not eating right now Chronic joint pain PRN analgesics Code: Full Dispo: Home, ~1-2 days Pending neuro recs / glc improves
[2023-09-12 10:03] LABS: Albumin/Globulin Ratio 0.8 (1.1-1.8); Anion Gap 13.3 mEq/L (5.0-15.0); Bilirubin Total 1.4 mg/dL (0.2-1.0); Potassium 3.3 mEq/L (3.5-5.1)
--- NOTE | 2023-09-12 17:22 | P.DS ---
Admission Date: 09/10/23 Discharge Date: 09/12/23 Disposition: ROUTINE DISCHARGE Discharge Condition: GOOD Reason for Admission: AMS Brief History of Present Illness: 58yo M, PMH: hx of CAD s/p two-vessel CABG in 2022, chronic diastolic CHF, htn, hld, hx of CVA, IDDM2, Chronic join pain Patient came to the hospital with altered mentation. He is obtained from the as patient is repeating a lot of the answers to his questions. According to his his behavior has been very abnormal. He gets mad at her quite a bit and yells and scream scattered throughout the day. He had not been like that up until his CABG last January. He had a two-vessel CABG in 2022. He also had a stent placed at that time. He had to go back into his surgery to have the stent removed. Patient follows up with cardiology Dr. Bonds. According to the after his coronary artery bypass graft his demeanor changed. She is a double amputee, and he used to nice to her. As of late he has been doing a lot of yelling and screaming at her. Yesterday he surrounded her and she felt unsafe so she called 911. She was told that she could not do anything because he did not harm her. She has been a little afraid with the way he has been treating her. Today he had been asleep during the day. When his woke up she had gone outside to check on the animals. When she came back to the back door she asked for him to open the door. He started screaming at her and asking her where she was. He kept asking her over and over again where she was located. She told him she was at the back door but he seemed like he was not able to understand what she was saying. She called the paramedics because she felt like she was hypoglycemic. Normally when the paramedics come to the house they have placed on standby because the patient has become violent in the past. He apparently has been addicted to pain medication, and he uses hydrocodone's at home regularly. He is also followed up with his doctor recently and she feels like he was prescribed some new medications. She asked him what he was prescribed and he told her it was none of her business. He gets very aggressive to her whenever she is trying to ask him about his health. She states that he when he gets into the hospital he left to ask for Dilaudid. When he goes home he normally takes 3-4 times the dose of hydrocodone that he is supposed to be taking. However, patient's urine drug screen today has been unremarkable. Patient's labs are also fairly unremarkable. CT of the head was negative. Chest x-ray with no abnormality. Patient will be admitted to the hospital for inpatient hospitalization for altered mental status. Will work him up neurologically and if his workup is negative including MRI of the brain then he may need to be referred to [facility] for behavioral disturbances. Hospital Course: Problem List: Acute Encephalopathy, suspect secondary to substance use hx of substance abuse / dependence hx CAD with prior stents, now s/p CABG (02/03/23) Chronic diastolic CHF Hypertension Hyperlipidemia History of CVA IDDM2 with neuropathy Chronic joint pain Physician Discharge Instructions: Patient presented with acute encephalopathy/ delirium/ behavioral changes. Reportedly confused, yelling with repetitive sentences and wanting to be naked due to feeling clothes were too restrictive. Initially the etiology was unclear, but suspected substance use / side effect. After further discussion with his , she reported noticing 17 pills of 20mg baclofen were missing, and felt strongly this occurred over the day/night leeading up to this episode. Acute encephalopathy felt to be secondary to ingestion of baclofen. Advised patient to stop taking these medications. stated she threw away the bottle. Work up this hospitalization was without any findings to explain his encephalopathy. CT head was negative for any acute findings. Patient was noted to be quite hyperglycemic throughout hospitalization otherwise labs were rather unremarkable. Glucose improved with resumption of his insulin. Tox screen was negative for any opiates. Patient was given a ntipsychotics/benzodiazepine for shot term treatment of agitation Mentation improved substantially by the 3rd day without much change to his medications. He received IV hydration and was started on seroquel. Patient now oriented x3, answering all questions appropriately, no longer yelling at/combative with staff further raising the suspicion that episode was secondary to baclofen. Discharged with new prescription for seroquel. Denies any suicidal or homicidal ideations. States he is feeling better and ready to go home. Discussed with patient's and daughter, that some of the mental / behavioral changes patient has developed since CABG, can be seen due to decline in neuropsych performance as a side effect after CABG. Strongly recommended to follow up with psychiatrist. Patient was noted to be hyperglycemic throughout hospitalization but improved after resuming his insulin 70/30. He was never in DKA / HHS. Medications: Seroquel 25mg in AM, 50mg at bedtime continue other home meds as previously prescribed. do not take baclofen again abstain from narcotic use Follow up: PCP 3-5 days Neuro ~2 weeks Physical Exam: GEN: orientedx3, alert, not as agitated/combative today HEENT: Normal conjunctiva, sclera anicteric CV: Regular rate and rhythm, no edema, Systolic murmur Pulm: Nonlabored respirations on room air, Diminished at bases b/l ABD: Soft, nontender, nondistended Integumentary: skin tear noted to area on left lower santoro Neuro: moving all extremities equally, Normal speech, normal affect Vital Signs/Physical Exam: Temp Pulse Resp BP Pulse Ox 98.4 F 93 H 20 160/74 H 97 09/12/23 04:00 09/12/23 04:00 09/12/23 04:00 09/12/23 04:00 09/12/23 04:00 Laboratory Data at Discharge: WBC 8.80 thou/uL (4.3-10.9) 09/12/23 09:08 Hgb 10.4 g/dL (13.6-17.9) L 09/12/23 09:08 Hct 31.4 % (39.6-49.0) L 09/12/23 09:08 Plt Count 372 thou/uL (152-406) 09/12/23 09:08 PT 12.5 SECONDS (9.5-12.5) 09/10/23 08:43 INR 1.14 09/10/23 08:43 APTT 29.5 SECONDS (24.3-36.9) 09/10/23 08:43 Sodium 143 mEq/L (136-145) 09/12/23 09:08 Potassium 3.3 mEq/L (3.5-5.1) L 09/12/23 09:08 BUN 7 mg/dL (7-18) 09/12/23 09:08 Creatinine 1.04 mg/dL (0.70-1.30) 09/12/23 09:08 Glucose 203 mg/dL (74-106) H 09/12/23 09:08 Magnesium 2.0 mg/dL (1.6-2.4) 09/12/23 09:08 Total Bilirubin 1.4 mg/dL (0.2-1.0) H 09/12/23 09:08 AST 15 U/L (15-37) 09/12/23 09:08 ALT 13 U/L (16-61) L 09/12/23 09:08 Alkaline Phosphatase 130 U/L (45-117) H 09/12/23 09:08 Triglycerides 126 mg/dL (<150) 09/10/23 08:43 Cholesterol 136 mg/dL (<200) 09/10/23 08:43 HDL Cholesterol 55 mg/dL (40-60) 09/10/23 08:43 Cholesterol/HDL Ratio 2.47 09/10/23 08:43 Lipase 11 U/L (13-75) L 09/09/23 16:20 Home Medications: Aspirin Chewable [Aspirin Chewable*] 81 mg PO DAILY 04/12/23 Atorvastatin Calcium [Lipitor] 80 mg PO DAILY 04/12/23 Clopidogrel Bisulfate [Plavix*] 75 mg PO DAILY 04/12/23 Magnesium Oxide [Mag 0X*] 400 mg PO DAILY 04/12/23 Citalopram Hydrobromide [Celexa] 20 mg PO DAILY 09/03/23 Gabapentin 300 mg PO BID 09/03/23 Clopidogrel Bisulfate [Plavix*] 75 mg PO DAILY 09/04/23 Insulin 70/30 NPH/Reg Human [Novolin 70/30*] 20 unit SQ BIDAC ml 09/04/23 Quetiapine Fumarate [Seroquel] 25 mg PO SEECOM 30 Days #90 tab 09/12/23 New Medications: Quetiapine Fumarate [Seroquel] 25 mg PO SEECOM 30 Days #90 tab Physician Discharge Instructions: PROBLEM: Altered Mental Status and Substance Abuse GOAL: Clear understanding of disease process INSTRUCTIONS: Diet: regular Activity: as tolerated IMMUNIZATION Influenza Vaccine Indicated: No Influenza Vaccine Given: Date Given: Pneumonia Vaccine Indicated: No Pneumonia Vaccine Given: Date Given: Physician Discharge Instructions: Patient presented with acute encephalopathy/ delirium/ behavioral changes. Reportedly confused, yelling with repetitive sentences and wanting to be naked due to feeling clothes were too restrictive. Initially the etiology was unclear, but suspected substance use / side effect. After further discussion with his , she reported noticing 17 pills of 20mg baclofen were missing, and felt strongly this occurred over the day/night leeading up to this episode. Acute encephalopathy felt to be secondary to ingestion of baclofen. Advised patient to stop taking these medications. stated she threw away the bottle. Work up this hospitalization was without any findings to explain his encephalopathy. CT head was negative for any acute findings. Patient was noted to be quite hyperglycemic throughout hospitalization otherwise labs were rather unremarkable. Glucose improved with resumption of his insulin. Tox screen was negative for any opiates. Patient was given antipsychotics/benzodiazepine for shot term treatment of agitation Mentation improved substantially by the 3rd day without much change to his medications. He received IV hydration and was started on seroquel. Patient now oriented x3, answering all questions appropriately, no longer yelling at/combative with staff further raising the suspicion that episode was secondary to baclofen. Discharged with new prescription for seroquel. Denies any suicidal or homicidal ideations. States he is feeling better and ready to go home. Discussed with patient's and daughter, that some of the mental / behavioral changes patient has developed since CABG, can be seen due to decline in neuropsych performance as a side effect after CABG. Strongly recommended to follow up with psychiatrist. Patient was noted to be hyperglycemic throughout hospitalization but improved after resuming his insulin 70/30. He was never in DKA / HHS. Medications: Seroquel 25mg in AM, 50mg at bedtime continue other home meds as previously prescribed. do not take baclofen again abstain from narcotic use Follow up: PCP 3-5 days Neuro ~2 weeks Follow up with a Family Medicine Physician of your choice: RAI GUTIERREZ MD [address], [place] [id number] GOSIA CHRIS, [address], [place] [address] GRADY HOLT MD [address], [address] [place], [place] [address] ULISES DOTY MD [address], [address] [place] [address] ZAFAR SANCHEZ MD [address], [place] [address] [place] [address] FARIDA MCCLOUD MD [address] [place] [address] SARAH NICOLAS, [facility] [address], [address] [place] [address] SHARON WILLINGHAM MD [address], [address] [place] [address] BHARATI PERES MD [address] [place] [address] ZEINAB DUFFY MD [address] [place] [address] SHWETA WILLINGHAM APRN [employer] [address], [address] [place] [address] BRITTANY DUMAS DO [address], [address] [place] [address] Follow up with a Neurologist of your choice: ANTONIO SALES MD [address], [address] [place] [address] LAWRENCE MCCOLLUM MD [address] [place] [address] Followup: NONE,NONE [Primary Care Provider] - Time spent managing pt's care (in minutes): 45
== END 2023-09-12 16:26 | disposition home or self-care (01) | DRG 92 ==
LOC: ER 16:08 → ERHOLD 20:48 → 4TH 21:17 → OBSVTOIN 09-10 07:36 → 4TH 09-11 10:40
PROVIDERS: ADMIT Hospitalist; ATTEND Hospitalist
DX: G92.8 Other toxic encephalopathy (principal); F05 Delirium due to known physiological condition; F19.20 Other psychoactive substance dependence, uncomplicated; I50.32 Chronic diastolic (congestive) heart failure; I11.0 Hypertensive heart disease with heart failure; E78.00 Pure hypercholesterolemia, unspecified; F32.A Depression, unspecified; K21.9 Gastro-esophageal reflux disease without esophagitis; G89.29 Other chronic pain; M25.50 Pain in unspecified joint; D63.1 Anemia in chronic kidney disease; E11.40 Type 2 diabetes mellitus with diabetic neuropathy, unspecified; E11.65 Type 2 diabetes mellitus with hyperglycemia; I25.10 Atherosclerotic heart disease of native coronary artery without angina pectoris; I25.2 Old myocardial infarction; T42.8X5A Adverse effect of antiparkinsonism drugs and other central muscle-tone depressants, initial encounter; Z95.5 Presence of coronary angioplasty implant and graft; Z95.1 Presence of aortocoronary bypass graft; Z79.4 Long term (current) use of insulin; Z86.73 Personal history of transient ischemic attack (TIA), and cerebral infarction without residual deficits; Z79.82 Long term (current) use of aspirin; Z79.02 Long term (current) use of antithrombotics/antiplatelets; Z79.899 Other long term (current) drug therapy; Z87.891 Personal history of nicotine dependence
CPT/HCPCS: 36415; 70450; 71045; 80048; 80053; 80061; 80076; 80143; 80179; 80307; 81003; 82077; 82140; 82533; 82550; 82607; 82947; 83540; 83605; 83690; 83735; 84439; 84443; 84484; 85025; 85044; 85610; 85730; 86140; 93005; 96374; 99285; G0378; J1170; J1630; J1815; J2270; J2405; J3486; J7030

== ENCOUNTER 2023-09-22 02:11 | Emergency (ER) | payer OTHER ==
[2023-09-22] MEDS ORDERED: SMZ./TMP. 800/160 MG TABLET ONE (02:33)
[2023-09-22] MEDS ORDERED: CEPHALEXIN 250 MG CAP ONE (02:33)
[2023-09-22] MEDS ORDERED: ACETAMINOPHEN 500 MG TAB ONE (02:33)
--- NOTE | 2023-09-22 02:33 | EDPHYS ---
Physician Documentation [facility] Name: Tripp Webster Age: 58 yrs Sex: Male : 1965 Arrival Date: 09/22/2023 Time: 02:11 Bed 15 Private MD: ED Physician Kenn Yap HPI: 09/21 02:21 This 58 yrs old Male presents to ER via Unassigned with complaints of Leg sp4 Pain, Puncture Wound To Leg. 02:22 Allergies: No Known Allergies; PMHx: CAD; depressive disorder; Diabetes - IDDM; GERD; sp4 Hypercholesterolemia; Hypertension; Myocardial infarction; neuropathy; PSHx: cardiac stents; Coronary artery bypass graft; p. 02:30 Patient present with left lateral foot pressure sore with signs of infection. sp4 Historical: - Allergies: 02:34 No Known Allergies; cm10 - PMHx: 02:34 CAD; GERD; depressive disorder; Hypercholesterolemia; Hypertension; neuropathy; cm10 Myocardial infarction; Diabetes - IDDM; - PSHx: 02:34 cardiac stents; Coronary artery bypass graft; cm10 - Immunization history:: Adult Immunizations up to date. - Infectious Disease History:: Denies. - Social history:: Smoking status: Patient denies any tobacco usage or history of. - Family history:: not pertinent. ROS: 05:14 Constitutional: Negative for fever, chills, and weight loss, left left foot pain and sp4 redness positive for left foot pressure ulcer 05:14 All other systems are negative, Exam: 05:14 Constitutional: This is a well developed, well nourished patient who is awake, alert, sp4 and in no acute distress. Head/Face: Normocephalic, atraumatic. Eyes: Pupils equal round and reactive to light, extra-ocular motions intact. Lids and lashes normal. Conjunctiva and sclera are not injected. Cornea within normal limits. Periorbital areas with no swelling, redness, or edema. ENT: Nares patent. No nasal discharge, no septal abnormalities noted. Tympanic membranes are normal and external auditory canals are clear. Oropharynx with no redness, swelling, or masses, exudates, or evidence of obstruction, uvula midline. Mucous membranes moist. Neck: Trachea midline, no thyromegaly or masses palpated, and no cervical lymphadenopathy. Supple, full range of motion without nuchal rigidity, or vertebral point tenderness. Chest/axilla: Normal chest wall appearance and motion. Nontender with no deformity. No lesions are appreciated. Cardiovascular: Regular rate and rhythm with a normal S1 and S2. No gallops, murmurs, or rubs. Normal PMI, no JVD. No pulse deficits. Respiratory: Lungs have equal breath sounds bilaterally, clear to auscultation and percussion. No rales, rhonchi or wheezes noted. No increased work of breathing, no retractions or nasal flaring. Abdomen/GI: Soft, with normal bowel sounds. No distension or tympany. No guarding or rebound. No evidence of tenderness throughout. Back: No spinal tenderness. No costovertebral tenderness. Skin: Warm, dry with normal turgor. Normal color with no rashes, no lesions, and no evidence of cellulitis. MS/ Extremity: Pulses equal, no cyanosis. Neurovascular intact. Full, normal range of motion. Lateral foot small size pressure ulcer associated with small area of cellulitis/no drainable abscess Neuro: Awake and alert, GCS 15, oriented to person, place, time, and situation. Cranial nerves II-XII grossly intact. Motor strength 5/5 in all extremities. Sensory grossly intact. Psych: Awake, alert, with orientation to person, place and time. Behavior, mood, and affect are within normal limits Vital Signs: 02:33 BP 142 / 63; Pulse 88; Resp 16; Temp 98.1; Pulse Ox 98% ; Weight 97.52 kg; Height 5 ft. cm10 11 in. ; Pain 8/10; 03:04 BP 142 / 63; Pulse 91; Resp 20; Temp 98.5; Pulse Ox 99% on R/A; Pain 4/10; kd4 02:33 Body Mass Index 29.99 (97.52 kg, 180.34 cm) cm10 02:33 Pain Scale: Adult cm10 03:04 Pain Scale: Adult kd4 [place] Coma Score: 02:45 Eye Response: spontaneous(4). Motor Response: obeys commands(6). Verbal Response: kd4 oriented(5). Total: 15. 05:14 Eye Response: spontaneous(4). Motor Response: obeys commands(6). Verbal Response: sp4 oriented(5). Total: 15. MDM: 02:32 Patient medically screened. sp4 05:15 Differential diagnosis: contusion, abrasion, tendonitis. Data reviewed: vital signs, sp4 nurses notes, old medical records. ED course: Patient has small area of cellulitis associated with left foot pressure sore. Patient was prescribed antibiotics and advised to do daily cleansing and also wear open shoes like sandals. Administered Medications: 02:44 Drug: Acetaminophen PO 1000 mg PO once Route: PO; kd4 03:05 Follow up: Response: No adverse reaction kd4 02:45 Drug: Bactrim PO 160 mg-800 mg (DS) 160 mg PO every 6 hours Route: PO; kd4 03:05 Follow up: Response: No adverse reaction kd4 02:45 Drug: Cephalexin PO 500 mg PO once Route: PO; kd4 03:05 Follow up: Response: No adverse reaction kd4 Disposition Summary: 09/22/23 02:32 Discharge Ordered Notes: Location: Home sp4 Problem: new sp4 Symptoms: have improved sp4 Condition: Stable sp4 Diagnosis - Left foot pressure ulcer, Left foot cellulitis associated with pressure ulcer sp4 Followup: sp4 - With: Yasir Lopez MD - When: 7 - 10 days - Reason: Recheck today's complaints Discharge Instructions: - Discharge Summary Sheet sp4 - Cellulitis, Adult, [id number] sp4 Forms: - Patient Portal Instructions sp4 Prescriptions: - acetaminophen-codeine 300-30 mg Oral tablet - take 1 tablet ORAL route every 6 hours PRN pain; 20 tablet; Refills: 0, Product sp4 Selection Permitted - Cephalexin 250 mg Oral Capsule - take 1 capsule ORAL route every 8 hours for 10 days; 30 capsule; Refills: 0, sp4 Product Selection Permitted - Bactrim DS 800-160 mg Oral Tablet - take 1 tablet ORAL route every 12 hours for 10 days; 20 tablet; Refills: 0, sp4 Product Selection Permitted Signatures: Kenn Yap MD MD sp4 Minnie Lopez RN RN cm10 Gerson Michel RN RN kd4
--- NOTE | 2023-09-22 03:07 | ER ---
Nurse's Notes [facility] Name: Tripp Webster Age: 58 yrs Sex: Male : 1965 Arrival Date: 09/22/2023 Time: 02:11 Bed 15 Private MD: Diagnosis: Left foot pressure ulcer, Left foot cellulitis associated with pressure ulcer Presentation: 09/21 02:33 Chief complaint: Patient states: Wound to left foot. Coronavirus screen: Client denies cm10 travel out of the [place] in the last 14 days. At this time, the client does not indicate any symptoms associated with coronavirus-19. Ebola Screen: Patient denies travel to an Ebola-affected area in the 21 days before illness onset. No symptoms or risks identified at this time. Initial Sepsis Screen: Does the patient meet any 2 criteria? No. Patient's initial sepsis screen is negative. Does the patient have a suspected source of infection? No. Patient's initial sepsis screen is negative. Risk Assessment: Do you want to hurt yourself or someone else? Patient reports no desire to harm self or others. Onset of symptoms was September 22, 2023. 02:33 Method Of Arrival: Ambulatory cm10 02:33 Acuity: MIRIAM 4 cm10 Triage Assessment: 03:02 General: Appears Behavior is calm, cooperative. Pain: Pain currently is 4 out of 10 on kd4 a pain scale. Historical: - Allergies: 02:34 No Known Allergies; cm10 - PMHx: 02:34 CAD; GERD; depressive disorder; Hypercholesterolemia; Hypertension; neuropathy; cm10 Myocardial infarction; Diabetes - IDDM; - PSHx: 02:34 cardiac stents; Coronary artery bypass graft; cm10 - Immunization history:: Adult Immunizations up to date. - Infectious Disease History:: Denies. - Social history:: Smoking status: Patient denies any tobacco usage or history of. - Family history:: not pertinent. Screenin:45 [facility] ED Fall Risk Assessment (Adult) History of falling in the last 3 months, kd4 including since admission No falls in past 3 months (0 pts) Confusion or Disorientation No (0 pts) Intoxicated or Sedated No (0 pts) Impaired Gait Yes (1 pt) Mobility Assist Device Used Yes (1 pt) Altered Elimination No (0 pt). Abuse screen: Denies threats or abuse. Nutritional screening: No deficits noted. Tuberculosis screening: No symptoms or risk factors identified. Assessment: 02:45 Pain: Complains of pain in left leg Pain currently is 7 out of 10 on a pain scale. kd4 Neuro: No deficits noted. Level of Consciousness is awake, alert, Oriented to person, place, time, situation. Cardiovascular: Pulses are absent in left pedal are 1+ in R leg pedal pulse. Respiratory: No deficits noted. Airway is patent. GI: No signs and/or symptoms were reported involving the gastrointestinal system. : No signs and/or symptoms were reported regarding the genitourinary system. 03:04 General: d/c instruction given to patient, he verbalizes understanding, prescription kd4 given.. Vital Signs: 02:33 BP 142 / 63; Pulse 88; Resp 16; Temp 98.1; Pulse Ox 98% ; Weight 97.52 kg; Height 5 ft. cm10 11 in. ; Pain 8/10; 03:04 BP 142 / 63; Pulse 91; Resp 20; Temp 98.5; Pulse Ox 99% on R/A; Pain 4/10; kd4 02:33 Body Mass Index 29.99 (97.52 kg, 180.34 cm) cm10 02:33 Pain Scale: Adult cm10 03:04 Pain Scale: Adult kd4 [place] Coma Score: 02:45 Eye Response: spontaneous(4). Motor Response: obeys commands(6). Verbal Response: kd4 oriented(5). Total: 15. 05:14 Eye Response: spontaneous(4). Motor Response: obeys commands(6). Verbal Response: sp4 oriented(5). Total: 15. ED Course: 02:13 Patient arrived in ED. gm2 02:21 Kenn Yap MD is Attending Physician. sp4 02:30 Gerson Michle, KAMILLA is Primary Nurse. kd4 02:31 Yasir Lopez MD is Referral Physician. sp4 02:34 Triage completed. cm10 02:35 Arm band placed on Patient placed in an exam room, on a stretcher. cm10 02:45 Patient has correct armband on for positive identification. Bed in low position. Call kd4 light in reach. Side rails up X 1. 02:45 No provider procedures requiring assistance completed. kd4 03:03 Patient did not have IV access during this emergency room visit. kd4 03:06 Provided Education on: d/c instruction. kd4 Administered Medications: 02:44 Drug: Acetaminophen PO 1000 mg PO once Route: PO; kd4 03:05 Follow up: Response: No adverse reaction kd4 02:45 Drug: Bactrim PO 160 mg-800 mg (DS) 160 mg PO every 6 hours Route: PO; kd4 03:05 Follow up: Response: No adverse reaction kd4 02:45 Drug: Cephalexin PO 500 mg PO once Route: PO; kd4 03:05 Follow up: Response: No adverse reaction kd4 Medication: 02:45 VIS not applicable for this client. kd4 Outcome: 02:32 Discharge ordered by . sp4 03:03 Discharged to home kd4 03:03 Condition: stable 03:03 Discharge instructions given to patient, 03:06 Discharge instructions given to Prescriptions given X 3, kd4 03:07 Patient left the ED. kd4 Signatures: Kenn Yap MD MD sp4 Minnie Lopez RN RN cm10 Sho Cruz 2 Gerson Michel RN RN kd4
[2023-09-22 03:40] VITALS: BP 142/63; TEMP 98.5; O2SAT 99
== END 2023-09-22 03:07 | disposition home or self-care (01) ==
LOC: ER 02:11
DX: L03.116 Cellulitis of left lower limb (principal); Z95.1 Presence of aortocoronary bypass graft

== ENCOUNTER 2023-10-20 03:51 | Emergency (ER) | payer OTHER ==
[2023-10-20] MEDS ORDERED: MORPHINE 4 MG/ML SYR ONE (04:12)
[2023-10-20] MEDS ORDERED: DIAZEPAM 5 MG TABLET ONE (04:12)
[2023-10-20] MEDS ORDERED: ONDANSETRON 4 MG/2 ML VIAL ONE (04:12)
[2023-10-20] MEDS ORDERED: DIPHENHYDRAMINE 50 MG/ML VIAL ONE (04:38)
[2023-10-20] MEDS ORDERED: METHYLPREDNISOLONE 125 MG INJ ONE (04:38)
[2023-10-20] MEDS ORDERED: FAMOTIDINE 20 MG/2 ML VIAL IV ONE (04:39)
[2023-10-20 04:50] LABS: Absolute Eosinophils 0.2 K/uL (0-0.5); Absolute Monocytes 0.8 K/uL (0.1-1.3); Basophils % 0.5 % (0-1.3); Eosinophils % 2.3 % (0-4.4); Hematocrit 28.3 % (39.6-49.0); Hemoglobin 9.4 g/dL (13.6-17.9); Lymphocytes % 28.5 % (15.3-44.8); MCH 27.1 pg (27.0-35.0); MCHC 33.1 g/dL (32.0-36.0); MPV 7.9 fL (7.6-11.3); Monocytes % 11.6 % (3.3-12.3); Neutrophils % 57.1 % (41.7-73.7); Platelets 286 thou/uL (152-406); RBC Red Blood Cell Count 3.46 M/uL (4.33-5.43); Red Cell Distribution Width 15.8 % (12.1-15.2)
[2023-10-20 04:51] LABS: PT Prothrombin Time 13.6 SECONDS (9.5-12.5); Protime INR 1.24
[2023-10-20 05:21] LABS: ALT/SGPT 28 U/L (16-61); AST/SGOT 27 U/L (15-37); Albumin 3.1 g/dL (3.4-5.0); Albumin/Globulin Ratio 0.8 (1.1-1.8); Alkaline Phosphatase 149 U/L (45-117); Anion Gap 9.3 mEq/L (5.0-15.0); BUN Blood Urea Nitrogen 15 mg/dL (7-18); Bicarbonate 23 mEq/L (21-32); Bilirubin Total 0.4 mg/dL (0.2-1.0); Globulin 3.9 g/dL (2.3-3.5); Glomerular Filtration Rate 81 ml/min (=/>90); Glucose Level 88 mg/dL (74-106); Magnesium 1.9 mg/dL (1.6-2.4); NT PRO-BNP 1069 pg/mL (<125); Potassium 3.3 mEq/L (3.5-5.1); Sodium Level 139 mEq/L (136-145); Troponin High Sensitivity 12.8 pg/mL (<58.9)
[2023-10-20 05:22] LABS: Bilirubin Direct < 0.2 mg/dL (0-0.2); Bilirubin Indirect, Calculated 0.2 mg/dL (0.2-0.8)
[2023-10-20] MEDS ORDERED: ACETAMINOPHEN 500 MG TAB ONE (06:42)
--- NOTE | 2023-10-20 07:43 | EDPHYS ---
Physician Documentation [facility] Name: Tripp Webster Age: 58 yrs Sex: Male : 1965 Arrival Date: 10/20/2023 Time: 03:51 Bed 14 Private MD: ED Physician Leonard Kincaid HPI: 10/19 04:29 This 58 yrs old Male presents to ER via EMS with complaints of Chest pain . sp4 06:56 58 year Old male with past medical history of coronary artery disease, depression, sp4 diabetes, GERD hypercholesterolemia hypertension presents with EMS for reported chest pain sudden onset at home. . Historical: - Allergies: 04:25 No Known Allergies; jj7 - PMHx: 04:25 CAD; depressive disorder; Diabetes - IDDM; GERD; Hypercholesterolemia; Hypertension; jj7 Myocardial infarction; neuropathy; - PSHx: 04:25 cardiac stents; Coronary artery bypass graft; jj7 - Immunization history:: Adult Immunizations up to date, Client reports receiving the 2nd dose of the Covid vaccine, Flu vaccine is up to date. - Infectious Disease History:: Denies. - Social history:: Smoking status: Patient denies any tobacco usage or history of. Patient/guardian denies using alcohol, street drugs, IV drugs. - Family history:: not pertinent. ROS: 06:56 Constitutional: Negative for fever, chills, and weight loss, positive for chest pain sp4 06:56 All other systems are negative, Exam: 06:56 Constitutional: This is a well developed, well nourished patient who is awake, alert, sp4 and in no acute distress. Head/Face: Normocephalic, atraumatic. Eyes: Pupils equal round and reactive to light, extra-ocular motions intact. Lids and lashes normal. Conjunctiva and sclera are not injected. Cornea within normal limits. Periorbital areas with no swelling, redness, or edema. ENT: Nares patent. No nasal discharge, no septal abnormalities noted. Tympanic membranes are normal and external auditory canals are clear. Oropharynx with no redness, swelling, or masses, exudates, or evidence of obstruction, uvula midline. Mucous membranes moist. Neck: Trachea midline, no thyromegaly or masses palpated, and no cervical lymphadenopathy. Supple, full range of motion without nuchal rigidity, or vertebral point tenderness. Chest/axilla: Normal chest wall appearance and motion. Nontender with no deformity. No lesions are appreciated. Cardiovascular: Regular rate and rhythm with a normal S1 and S2. No gallops, murmurs, or rubs. Normal PMI, no JVD. No pulse deficits. Respiratory: Lungs have equal breath sounds bilaterally, clear to auscultation and percussion. No rales, rhonchi or wheezes noted. No increased work of breathing, no retractions or nasal flaring. Abdomen/GI: Soft, with normal bowel sounds. No distension or tympany. No guarding or rebound. No evidence of tenderness throughout. Back: No spinal tenderness. No costovertebral tenderness. Skin: Warm, dry with normal turgor. Normal color with no rashes, no lesions, and no evidence of cellulitis. MS/ Extremity: Pulses equal, no cyanosis. Neurovascular intact. Full, normal range of motion. Neuro: Awake and alert, GCS 15, oriented to person, place, time, and situation. Cranial nerves II-XII grossly intact. Motor strength 5/5 in all extremities. Sensory grossly intact. Psych: Awake, alert, with orientation to person, place and time. Behavior, mood, and affect are within normal limits 06:57 ECG was reviewed by the Attending Physician. EKG at 0 357 normal sinus rhythm at rate sp4 of 73 Vital Signs: 03:55 BP 139 / 64; Pulse 73; Resp 20; Temp 97.3; Pulse Ox 100% ; Weight 97.07 kg; Height 5 [facility] ft. 11 in. ; Pain 9/10; 05:01 BP 143 / 60; Pulse 75; Resp 15; Pulse Ox 97% ; j7 06:00 BP 120 / 49; Pulse 82; Resp 18; Pulse Ox 96% ; j7 06:48 BP 131 / 60; Pulse 80; Resp 16; Pulse Ox 99% ; 7 07:01 BP 127 / 56; Pulse 82; Resp 18; Pulse Ox 95% on R/A; ld1 07:02 BP 129 / 63; Pulse 80; Resp 18; Pulse Ox 99% on R/A; ld1 03:55 Body Mass Index 29.85 (97.07 kg, 180.34 cm) [facility] 03:55 Pain Scale: Adult [facility] Fausto Coma Score: 06:56 Eye Response: spontaneous(4). Motor Response: obeys commands(6). Verbal Response: sp4 oriented(5). Total: 15. MDM: 04:00 Patient medically screened. sp4 06:58 Differential Diagnosis altered mental status, sepsis, flu, Angina. Data reviewed: vital sp4 signs, nurses notes, EMS record, lab test result(s), EKG, radiologic studies, plain films. 06:59 Consideration of Admission/Observation Escalation of care including sp4 admission/observation considered. ED course: Chest X ray EXAM DESCRIPTION: Chest Single View CLINICAL HISTORY: CHEST PAIN COMPARISON: Chest x-ray 04/11/2023 TECHNIQUE: Single AP view of the chest. FINDINGS: Median sternotomy changes. Lung volumes adequate. Cardiac silhouette is unchanged. No pneumothorax. No large pleural effusion. Unchanged left perihilar and left lower lobe patchy opacities. No new areas of focal consolidation. No acute bony finding. Chronic appearing bilateral rib fracture deformities. IMPRESSION: 1. No new areas of focal consolidation. 2. Unchanged left perihilar and left lower lobe opacities, similar compared to 04/11/2023. . 07:00 Transition of care: After a detail discussion of the patient's case, care is sp4 transferred to Leonard Kincaid DO. 07:13 Transition of care: Care assumed from Kenn Yap MD. [facility] 07:43 I considered the following discharge prescriptions or medication management in the [facility] emergency department Medications were administered in the Emergency Department. See MAR. Independent interpretation of the following test(s) in the Emergency Department EKG: See my EKG interpretation above X-Ray: My interpretation is CXR image reveals LLL opacities. Care significantly affected by the following chronic conditions: Diabetes, Hypertension. Counseling: I had a detailed discussion with the patient and/or guardian regarding the historical points, exam findings, and any diagnostic results supporting the discharge/admit diagnosis, lab results, radiology results, the need for outpatient follow up, to return to the emergency department if symptoms worsen or persist or if there are any questions or concerns that arise at home. ED course: Discussed labs and chest x-ray with patient. Patient to follow-up Dr. Diallo and Dr. Mark. Patient understands and agrees with plan. All questions were answered. Return precautions discussed include worsening symptoms, or other concerns. On reevaluation patient is alert and oriented x 4, in no apparent distress, nontoxic-appearing, speaking full sentences, oxygen saturation 99% on room air.. 10/19 03:58 Order name: Basic Metabolic Panel; Complete Time: 06:42 sp4 10/19 03:58 Order name: CBC with Diff; Complete Time: 06:42 sp4 10/19 03:58 Order name: LFT's; Complete Time: 06:42 sp4 10/19 03:58 Order name: Magnesium; Complete Time: 06:42 sp4 10/19 03:58 Order name: NT PRO-BNP; Complete Time: 06:42 sp4 10/19 03:58 Order name: PT-INR; Complete Time: 06:42 sp4 10/19 03:58 Order name: Troponin HS; Complete Time: 06:42 sp4 10/19 06:42 Order name: Troponin High Sensitivity; Complete Time: 07:35 sp4 10/19 03:58 Order name: XRAY Chest (1 view) 10/19 03:58 Order name: Cardiac monitoring; Complete Time: 04:01 sp4 10/19 03:58 Order name: EKG - Nurse/Tech; Complete Time: 04:01 sp4 10/19 03:58 Order name: IV Saline Lock; Complete Time: 04:11 sp4 10/19 03:58 Order name: Labs collected and sent; Complete Time: 04:29 sp4 10/19 03:58 Order name: O2 Per Protocol; Complete Time: 04:29 sp4 10/19 03:58 Order name: O2 Sat Monitoring; Complete Time: 04:29 sp4 EC:57 Rate is 73 beats/min. Rhythm is regular, Normal Sinus Rhythm. Right axis deviation sp4 noted. IN interval is normal. QRS interval is normal. QT interval is normal. No Q waves. T waves are Normal. No ST changes noted. Clinical impression: No evidence of ischemia. Interpreted by me. Reviewed by me. Administered Medications: 04:18 Drug: morphine IVP or IV 4 mg IVP once over 4 mins Route: IVP; Infused Over: 4 mins; jj7 Site: left hand; 04:22 Follow up: Response: Adverse reaction, Physician notified jj7 04:18 Drug: Diazepam PO 5 mg PO once Route: PO; jj7 04:47 Follow up: Response: No adverse reaction jj7 04:18 Drug: Ondansetron IVP 4 mg IVP once; over 2 minutes Route: IVP; Site: left hand; jj7 04:47 Follow up: Response: No adverse reaction jj7 04:46 Drug: MethylPrednisoLONE IVP 125 mg IVP once Route: IVP; Site: right antecubital; jj7 06:49 Follow up: Response: Marked relief of symptoms jj7 04:46 Drug: Famotidine IVP 20 mg IVP once; dilute with 10 mL 0.9% NaCl; give over 2 minutes jj7 Route: IVP; Site: right antecubital; 06:49 Follow up: Response: Marked relief of symptoms jj7 04:46 Drug: diphenhydrAMINE IVP 25 mg IVP once Route: IVP; Site: right antecubital; jj7 06:49 Follow up: Response: Marked relief of symptoms jj7 06:49 Drug: Acetaminophen PO 1000 mg PO once Route: PO; jj7 Disposition Summary: 10/20/23 07:42 Discharge Ordered Notes: Location: Home ms3 Condition: Stable ms3 Diagnosis - Chest pain, unspecified ms3 - Left lower lung opacities- chronic ms3 Followup: ms3 - With: Keyur Bonds MD - When: 2 - 3 days - Reason: Recheck today's complaints Followup: ms3 - With: Taco Andujar MD - When: 2 - 3 days - Reason: Recheck today's complaints Discharge Instructions: - Discharge Summary Sheet ms3 - Nonspecific Chest Pain, Adult ms3 Forms: - Medication Reconciliation Form ms3 - Antibiotic Education ms3 - Prescription Opioid Use ms3 - Patient Portal Instructions ms3 - Leadership Thank You Letter ms3 Signatures: Dispatcher [employer] EDMS Leonard Kincaid DO DO ms3 Milena Lopez RN RN jj7 Kenn Yap MD MD sp4 Corrections: (The following items were deleted from the chart) 03:59 03:59 BASIC METABOLIC PANEL+C.LAB.BRZ ordered. EDMS EDMS 03:59 03:59 CBC+H.LAB.BRZ ordered. EDMS EDMS 03:59 03:59 HEPATIC FUNCTION+C.LAB.BRZ ordered. EDMS EDMS 03:59 03:59 MAGNESIUM+C.LAB.BRZ ordered. EDMS EDMS 03:59 03:59 PROBNP+C.LAB.BRZ ordered. EDMS EDMS 03:59 03:59 PROTIME (+INR)+COAG.LAB.BRZ ordered. EDMS EDMS 03:59 03:59 Troponin High Sensitivity+C.LAB.BRZ ordered. EDMS EDMS 03:59 03:59 Chest Single View+RAD.RAD.BRZ ordered. EDMS EDMS 06:42 06:42 Troponin High Sensitivity+C.LAB.BRZ ordered. EDMS EDMS
--- NOTE | 2023-10-20 07:43 | ER ---
Nurse's Notes [facility] Name: Tripp Webster Age: 58 yrs Sex: Male : 1965 Arrival Date: 10/20/2023 Time: 03:51 Bed 14 Private MD: Diagnosis: Chest pain, unspecified;Left lower lung opacities- chronic Presentation: 10/19 03:55 Chief complaint: Patient states: CP,INSOMNIA. NECK AND BACK PAIN EMS states: CAN'T jj7 SLEEP. HAS BEEN TAKING LUNESTA AND IT'S NOT WORKING. STARTED HAVING CP AT 11P. Coronavirus screen: At this time, the client does not indicate any symptoms associated with coronavirus-19. Ebola Screen: No symptoms or risks identified at this time. Initial Sepsis Screen: Does the patient meet any 2 criteria? No. Patient's initial sepsis screen is negative. Does the patient have a suspected source of infection? No. Patient's initial sepsis screen is negative. Risk Assessment: Do you want to hurt yourself or someone else? Patient reports no desire to harm self or others. Note PT TOOK 3 GLUCOSE PILLS AT HOME AND EMS GAVE HIM A COKE. Onset of symptoms was October 19, 2023. Care prior to arrival: Medication(s) given: ASA, x 4, Nitroglycerin, x 3. Care prior to arrival: Glucose check: 49. 03:55 Method Of Arrival: EMS: [facility] j7 03:55 Acuity: MIRIAM 3 jj7 Triage Assessment: 03:55 General: Appears in no apparent distress. comfortable, Behavior is calm, cooperative, jj7 appropriate for age. Pain: Complains of pain in back of neck, back and chest. Cardiovascular: Reports chest pain. Historical: - Allergies: 04:25 No Known Allergies; jj7 - PMHx: 04:25 CAD; depressive disorder; Diabetes - IDDM; GERD; Hypercholesterolemia; Hypertension; jj7 Myocardial infarction; neuropathy; - PSHx: 04:25 cardiac stents; Coronary artery bypass graft; jj7 - Immunization history:: Adult Immunizations up to date, Client reports receiving the 2nd dose of the Covid vaccine, Flu vaccine is up to date. - Infectious Disease History:: Denies. - Social history:: Smoking status: Patient denies any tobacco usage or history of. Patient/guardian denies using alcohol, street drugs, IV drugs. - Family history:: not pertinent. Screenin:55 [facility] ED Fall Risk Assessment (Adult) History of falling in the last 3 months, 7 including since admission No falls in past 3 months (0 pts) Confusion or Disorientation No (0 pts) Intoxicated or Sedated No (0 pts) Impaired Gait No (0 pts) Mobility Assist Device Used No (0 pt) Altered Elimination No (0 pt) Score/Fall Risk Level 0 - 2 = Low Risk Oriented to surroundings, Maintained a safe environment, Educated pt \T\ family on fall prevention, incl call for assistance when getting out of bed. Abuse screen: Denies threats or abuse. Nutritional screening: No deficits noted. Tuberculosis screening: No symptoms or risk factors identified. Assessment: 03:55 Reassessment: SEE TRIAGE ASSESSMENT. [facility] 07:02 Reassessment: Patient appears in no apparent distress at this time. No changes from 1 previously documented assessment. Patient and/or family updated on plan of care and expected duration. Pain level reassessed. 07:59 Reassessment: Patient appears in no apparent distress at this time. No changes from 1 previously documented assessment. Patient and/or family updated on plan of care and expected duration. Pain level reassessed. Vital Signs: 03:55 BP 139 / 64; Pulse 73; Resp 20; Temp 97.3; Pulse Ox 100% ; Weight 97.07 kg; Height 5 [facility] ft. 11 in. ; Pain 9/10; 05:01 BP 143 / 60; Pulse 75; Resp 15; Pulse Ox 97% ; 7 06:00 BP 120 / 49; Pulse 82; Resp 18; Pulse Ox 96% ; 7 06:48 BP 131 / 60; Pulse 80; Resp 16; Pulse Ox 99% ; 7 07:01 BP 127 / 56; Pulse 82; Resp 18; Pulse Ox 95% on R/A; ld1 07:02 BP 129 / 63; Pulse 80; Resp 18; Pulse Ox 99% on R/A; ld1 03:55 Body Mass Index 29.85 (97.07 kg, 180.34 cm) [facility] 03:55 Pain Scale: Adult [facility] Fausto Coma Score: 06:56 Eye Response: spontaneous(4). Motor Response: obeys commands(6). Verbal Response: sp4 oriented(5). Total: 15. ED Course: 03:53 Patient arrived in ED. vk 03:55 Arm band placed on right wrist. Patient placed in an exam room, on a stretcher, on jj7 media monitor, on pulse oximetry. EKG completed in triage. Results shown to MD. 03:55 Patient has correct armband on for positive identification. Bed in low position. Call jj7 light in reach. Side rails up X 1. Provided Education on: USE OF CALL MAIN. Client placed on continuous cardiac and pulse oximetry monitoring. NIBP monitoring applied. media monitor on. Pulse ox on. Warm blanket given. 03:55 Inserted saline lock: 22 gauge in right hand, using aseptic technique. jj7 03:58 Kenn Yap MD is Attending Physician. sp4 04:01 Milena Lopez, KAMILLA is Primary Nurse. jj7 04:25 Triage completed. jj7 04:28 Inserted saline lock: 18 gauge in right antecubital area, using aseptic technique. jj7 Blood collected. 04:29 CBC with Diff Sent. jj7 04:29 Basic Metabolic Panel Sent. jj7 04:29 LFT's Sent. jj7 04:29 Magnesium Sent. jj7 04:29 NT PRO-BNP Sent. jj7 04:29 PT-INR Sent. jj7 04:29 Troponin HS Sent. jj7 04:53 XRAY Chest (1 view) In Process Unspecified. EDMS 05:19 Lights dimmed. Warm blanket given. jj7 06:54 Troponin High Sensitivity Sent. jj7 07:05 Troponin High Sensitivity Sent. oe 07:12 Attending Physician role handed off by Kenn Yap MD ms3 07:12 Leonard Kincaid DO is Attending Physician. ms3 07:42 Keyur Bonds MD is Referral Physician. ms3 07:42 Taco Andujra MD is Referral Physician. ms3 07:59 No provider procedures requiring assistance completed. IV discontinued, intact, ld1 bleeding controlled, No redness/swelling at site. Administered Medications: 04:18 Drug: morphine IVP or IV 4 mg IVP once over 4 mins Route: IVP; Infused Over: 4 mins; jj7 Site: left hand; 04:22 Follow up: Response: Adverse reaction, Physician notified jj7 04:18 Drug: Diazepam PO 5 mg PO once Route: PO; jj7 04:47 Follow up: Response: No adverse reaction jj7 04:18 Drug: Ondansetron IVP 4 mg IVP once; over 2 minutes Route: IVP; Site: left hand; jj7 04:47 Follow up: Response: No adverse reaction jj7 04:46 Drug: MethylPrednisoLONE IVP 125 mg IVP once Route: IVP; Site: right antecubital; jj7 06:49 Follow up: Response: Marked relief of symptoms jj7 04:46 Drug: Famotidine IVP 20 mg IVP once; dilute with 10 mL 0.9% NaCl; give over 2 minutes jj7 Route: IVP; Site: right antecubital; 06:49 Follow up: Response: Marked relief of symptoms jj7 04:46 Drug: diphenhydrAMINE IVP 25 mg IVP once Route: IVP; Site: right antecubital; jj7 06:49 Follow up: Response: Marked relief of symptoms jj7 06:49 Drug: Acetaminophen PO 1000 mg PO once Route: PO; jj7 Medication: 03:55 VIS not applicable for this client. jj7 Outcome: 07:42 Discharge ordered by . ms3 08:00 Discharged to home via wheelchair, with family, ld1 08:00 Condition: stable 08:00 Discharge instructions given to patient, Instructed on discharge instructions, follow up and referral plans. Demonstrated understanding of instructions, follow-up care, 08:00 Patient left the ED. ld1 Signatures: Dispatcher [employer] EDMS Karan Baumann Marcus, DO DO ms3 Rhnoda Kincaid RN RN ld1 Milena Lopez RN RN jj7 Kenn Yap MD MD sp4 Shirley Gibbs
[2023-10-20 08:30] VITALS: BP 129/63; TEMP 97.3; O2SAT 99
--- NOTE | 2023-10-20 10:42 | RAD REPORT ---
EXAM DESCRIPTION: RAD - Chest Single View - 10/20/2023 4:52 am CLINICAL HISTORY: CHEST PAIN COMPARISON: Chest x-ray 04/11/2023 TECHNIQUE: Single AP view of the chest. FINDINGS: Median sternotomy changes. Lung volumes adequate. Cardiac silhouette is unchanged. No pneumothorax. No large pleural effusion. Unchanged left perihilar and left lower lobe patchy opacities. No new areas of focal consolidation. No acute bony finding. Chronic appearing bilateral rib fracture deformities. IMPRESSION: 1. No new areas of focal consolidation. 2. Unchanged left perihilar and left lower lobe opacities, similar compared to 04/11/2023. Electronically signed by: Radha Crow MD 10/20/2023 05:49 AM CDT Due to temporary technical issues with the PACS/Fluency reporting system, reports are being signed by the in house radiologist without review as a courtesy to ensure prompt reporting. The interpreting r adiologist is fully responsible for the content of the report.
--- NOTE | 2023-10-20 13:06 | EKG ---
Test Date: 2023-10-20 Test Time: 03:57:56 Director Report: ARIEL MEASUREMENT RESULTS: Intervals: Rate: 73 DC: 140 QRSD: 96 QT: 412 QTc: 453 [place]: P: 11 DC: 140 QRS: 107 T: 134 INTERPRETIVE STATEMENTS: Normal sinus rhythm Possible Left atrial enlargement Rightward axis Nonspecific ST and T wave abnormality Abnormal ECG Compared to ECG 09/09/2023 16:09:11 Right-axis deviation now present ST (T wave) deviation now present Electronically Signed On 10-20-23 13:05:39 CDT by Keyur Bonds
== END 2023-10-20 08:00 | disposition home or self-care (01) ==
LOC: ER 03:51
DX: R07.9 Chest pain, unspecified (principal); R91.8 Other nonspecific abnormal finding of lung field; I10 Essential (primary) hypertension; I25.2 Old myocardial infarction; Z95.1 Presence of aortocoronary bypass graft; Z95.818 Presence of other cardiac implants and grafts
CPT/HCPCS: 93005; 85025; 80048; 36415; 83735; 85610; 80076; 84484 ×2; 83880; 71045; J1200; J2919; J2405

== ENCOUNTER 2023-11-19 23:29 | Inpatient (IN) | payer OTHER ==
[2023-11-20] MEDS ORDERED: ONDANSETRON 4 MG/2 ML VIAL ONE (00:19)
[2023-11-20] MEDS ORDERED: MORPHINE 4 MG/ML SYR ONE ×2 (00:19→03:58)
[2023-11-20] MEDS ORDERED: FAMOTIDINE 20 MG/2 ML VIAL IV ONE (00:20)
[2023-11-20] MEDS ORDERED: NA CHLORIDE 0.9% 2,000 ML ONE (00:20)
[2023-11-20 00:40] LABS: Absolute Basophils 0.1 K/uL (0-0.5); Absolute Eosinophils 0.2 K/uL (0-0.5); Absolute Lymphocytes (CBC) 1.2 K/uL (0.7-4.9); Absolute Monocytes 0.7 K/uL (0.1-1.3); Absolute Neutrophil 4.3 K/uL (1.8-8.0); Eosinophils % 3.4 % (0-4.4); Hematocrit 29.8 % (39.6-49.0); Hemoglobin 9.9 g/dL (13.6-17.9); Lymphocytes % 18.6 % (15.3-44.8); MCH 26.9 pg (27.0-35.0); MCHC 33.2 g/dL (32.0-36.0); MCV 81.1 fL (80-100); MPV 7.1 fL (7.6-11.3); Monocytes % 10.3 % (3.3-12.3); Neutrophils % 66.7 % (41.7-73.7); Nucleated Red Blood Cells % 0.1 % (0-0); Platelets 308 thou/uL (152-406); RBC Red Blood Cell Count 3.68 M/uL (4.33-5.43); Red Cell Distribution Width 16.7 % (12.1-15.2)
[2023-11-20 00:55] LABS: Albumin 3.1 g/dL (3.4-5.0); Albumin/Globulin Ratio 0.8 (1.1-1.8); Anion Gap 7.9 mEq/L (5.0-15.0); Globulin 4.1 g/dL (2.3-3.5); Potassium 3.9 mEq/L (3.5-5.1); Protein, Total 7.2 g/dL (6.4-8.2); Troponin High Sensitivity 22.1 pg/mL (<58.9)
[2023-11-20] MEDS ORDERED: CEFTRIAXONE 1000 MG/VIAL ONE (02:44)
[2023-11-20] MEDS ORDERED: VANCOMYCIN 500 MG/VIAL ONE (02:45)
[2023-11-20] MEDS ORDERED: NA CHLORIDE 0.9% 100 ML ONE (02:45)
[2023-11-20] MEDS ORDERED: NA CHLORIDE 0.9% 250 ML ONE (02:46)
[2023-11-20] MEDS ORDERED: INSULIN REGULAR (HUMAN) 100 UNIT/ML ONE (02:51)
[2023-11-20 03:30] LABS: Specific Gravity 1.021 (1.005-1.030); Sqamous Epithelial None Seen /HPF (None Seen); Urine Bacteria None Seen /HPF (<20); Urine Bilirubin NEGATIVE (Negative); Urine Blood Negative (Negative); Urine Clarity Clear (Clear); Urine Color Light-Yellow (Yellow); Urine Culture Reflex Order NOT NEEDED; Urine Glucose 4+ (Over) (Negative); Urine Ketones 2+ (Negative); Urine Microscopic Reflex YN ORDER UMIC; Urine Nitrite NEGATIVE (Negative); Urine Protein NEGATIVE (Negative); Urine RBC <5 /HPF (None Seen); Urine Urobilinogen Normal (Normal); Urine WBC <5 /HPF (<5); Urine pH 5.5 (5.0-7.0)
--- NOTE | 2023-11-20 03:57 | ER ---
Nurse's Notes [facility] Name: Tripp Webster Age: 58 yrs Sex: Male : 1965 Arrival Date: 11/19/2023 Time: 23:29 Bed 5 Private MD: Diagnosis: Muscle weakness (generalized);Acute renal insufficiency, hyperglycemia, Atypical chest pain Presentation: 11/18 23:30 Chief complaint: EMS states: called stating patient was week and fatigued. vc1 23:30 Coronavirus screen: Client denies travel out of the [place] in the last 14 days. At this vc1 time, the client does not indicate any symptoms associated with coronavirus-19. Ebola Screen: Patient negative for fever greater than or equal to 101.5 degrees Fahrenheit, and additional compatible Ebola Virus Disease symptoms Patient denies exposure to infectious person. Patient denies travel to an Ebola-affected area in the 21 days before illness onset. No symptoms or risks identified at this time. Initial Sepsis Screen: Does the patient meet any 2 criteria? No. Patient's initial sepsis screen is negative. Does the patient have a suspected source of infection? No. Patient's initial sepsis screen is negative. Risk Assessment: Do you want to hurt yourself or someone else? Patient reports no desire to harm self or others. Onset of symptoms is unknown. Care prior to arrival: IV initiated. 18 GA, in the right wrist, Glucose check: 388. Activity prior to arrival: confused. Mechanism of Injury: No Mechanism of Injury. Transition of care: patient was not received from another setting of care. 23:30 Method Of Arrival: EMS: [facility] vc1 23:30 Acuity: MIRIAM 3 vc1 Triage Assessment: 23:30 General: Appears in no apparent distress. uncomfortable, Behavior is cooperative, vc1 drowsy, flat. Pain: Complains of pain in right leg and left leg Pain does not radiate. Pain currently is 10 out of 10 on a pain scale. EENT: No deficits noted. No signs and/or symptoms were reported regarding the EENT system. Neuro: [place] Agitation-Sedation Scale (RASS): -1 Drowsy Level of Consciousness is awake, obeys commands, lethargic, Oriented to person, place, Weakness Reports weakness. Cardiovascular: Heart tones S1 S2 Capillary refill < 3 seconds Patient's skin is warm and dry. Respiratory: Airway is patent Respiratory effort is even, unlabored, Respiratory pattern is regular, symmetrical, Breath sounds are clear bilaterally. GI: No deficits noted. No signs and/or symptoms were reported involving the gastrointestinal system. Abdomen is flat, non-distended, Bowel sounds present X 4 quads. : No deficits noted. No signs and/or symptoms were reported regarding the genitourinary system. Derm: Skin is intact, is healthy with good turgor, Skin is dry, Skin is normal, Skin temperature is cool. Historical: - Allergies: 23:30 No Known Allergies; vc1 - PMHx: 23:30 CAD; depressive disorder; Diabetes - IDDM; GERD; Hypercholesterolemia; Hypertension; vc1 Myocardial infarction; neuropathy; - PSHx: 23:30 cardiac stents; Coronary artery bypass graft; vc1 - Immunization history:: Adult Immunizations unknown. - Infectious Disease History:: Denies. - Social history:: Smoking status: unknown. - Family history:: not pertinent. Screenin:30 [facility] ED Fall Risk Assessment (Adult) History of falling in the last 3 months, vc1 including since admission No falls in past 3 months (0 pts) Confusion or Disorientation Yes (5 pts) Intoxicated or Sedated No (0 pts) Impaired Gait Yes (1 pt) Mobility Assist Device Used No (0 pt) Altered Elimination No (0 pt) Score/Fall Risk Level 3 or more points = High Risk Oriented to surroundings, Maintained a safe environment, Educated pt \T\ family on fall prevention, incl call for assistance when getting out of bed. Abuse screen: Denies threats or abuse. Nutritional screening: No deficits noted. Tuberculosis screening: No symptoms or risk factors identified. Assessment: 23:30 General: See triage assessment. vc1 23:30 Pain: Complains of pain in bilateral feet Pain does not radiate. Pain currently is 10 vc1 out of 10 on a pain scale. 06/08 00:30 Reassessment: Patient and/or family updated on plan of care and expected duration. Pain ha1 level reassessed. General: Behavior is anxious, restless, uncooperative. 01:19 Reassessment: Patient appears in no apparent distress at this time. No changes from vc1 previously documented assessment. Patient and/or family updated on plan of care and expected duration. Pain level reassessed. 02:25 General: Behavior is anxious. Respiratory: Airway is patent Respiratory effort is even, ha1 unlabored, Respiratory pattern is regular, symmetrical. 03:00 Reassessment: Patient and/or family updated on plan of care and expected duration. Pain ha1 level reassessed. attempting to remove Chung catheter provided information on what is the used of a Chung catheter. Notified Dr. Yap. 04:30 Reassessment: going to CT. ha1 04:55 Reassessment: back from CT. ha1 05:15 Reassessment: eyes closed. Respiratory: Airway is patent Respiratory effort is even, ha1 unlabored, Respiratory pattern is regular, symmetrical. 05:35 Reassessment: Notified Dr. Yap of glucose level. ha1 05:35 Respiratory: Airway is patent Respiratory effort is even, unlabored, Respiratory ha1 pattern is regular, symmetrical. 05:58 Reassessment: glucose at 156. ha1 Vital Signs: 11/18 23:30 BP 115 / 52; Pulse 70; Resp 24; Temp 98; Pulse Ox 94% on R/A; vc1 08 00:15 BP 114 / 57; Pulse 72; Resp 26; Pulse Ox 94% ; vc1 00:31 Weight 99.79 kg; Height 5 ft. 11 in. ; vc1 01:00 BP 114 / 55; Pulse 70; Resp 23; Pulse Ox 91% ; vc1 02:00 BP 118 / 61; Pulse 69; Resp 21; Pulse Ox 92% on R/A; vc1 03:00 BP 116 / 67; Pulse 68; Resp 17; Pulse Ox 95% ; vc1 03:45 BP 123 / 74; Pulse 72; Resp 20; Pulse Ox 93% on R/A; vc1 04:00 BP 115 / 60; Pulse 69; Resp 16 S; Pulse Ox 98% on 2 lpm NC; ha1 05:00 BP 117 / 65; Pulse 70; Resp 17 S; Pulse Ox 97% on 2 lpm NC; ha1 00:31 Body Mass Index 30.68 (99.79 kg, 180.34 cm) vc1 [place] Coma Score: 18:41 Eye Response: spontaneous(4). Motor Response: obeys commands(6). Verbal Response: sp4 oriented(5). Total: 15. NIH Stroke Scale Scores: 18:41 NIHSS Score: 0 sp4 ED Course: 11/18 23:30 Arm band placed on left wrist. vc1 23:30 Patient has correct armband on for positive identification. Bed in low position. Call vc1 light in reach. Side rails up X2. part time on. Pulse ox on. NIBP on. 23:31 Patient arrived in ED. sb4 23:37 Kenn Yap MD is Attending Physician. sp4 11/19 00:31 Kaycee Pan RN is Primary Nurse. vc1 00:32 No provider procedures requiring assistance completed. Inserted saline lock: 22 gauge ha1 in right forearm, using aseptic technique. 01:16 Triage completed. vc1 02:25 Door closed. Noise minimized. Lights dimmed. Warm blanket given. ha1 02:49 Chung cath inserted, using sterile technique, 16 Fr., by ca, balloon inflated, to lg3 gravity drainage. 03:01 CT Head C Spine In Process Unspecified. EDMS 03:35 Provided Education on: medication administration . ha1 03:56 Jm Carlin MD is Hospitalizing Provider. sp4 04:10 Chest Single View XRAY In Process Unspecified. EDMS 05:25 Patient admitted, IV remains in place. ha1 Administered Medications: 00:32 Drug: Famotidine IVP 20 mg IVP once; dilute with 10 mL 0.9% NaCl; give over 2 minutes vc1 Route: IVP; Site: right wrist; 01:00 Follow up: Response: No adverse reaction ha1 00:32 Drug: Ondansetron IVP 4 mg IVP once; over 2 minutes Route: IVP; Site: right wrist; vc1 01:00 Follow up: Response: No adverse reaction ha1 00:32 Drug: morphine IVP or IV 4 mg IVP once over 4 mins Route: IVP; Infused Over: 4 mins; vc1 Site: right wrist; 01:00 Follow up: Response: No adverse reaction; Pain is unchanged, physician notified; RASS: ha1 Restless (+1) 00:32 Drug: NS 0.9% IV 1000 ml IV at 125 ml/hr continuous Route: IV; Rate: 125 ml/hr; Site: vc1 right wrist; 05:33 Follow up: Response: No adverse reaction; IV Status: Infusion continued; IV Intake: ha1 600ml 00:33 Drug: NS 0.9% IV 1000 ml IV at 1 bolus Per protocol; 1000 mL bolus Route: IV; Rate: 1 vc1 bolus; Site: right wrist; 02:00 Follow up: Response: No adverse reaction; IV Status: Completed infusion; IV Intake: ha1 1000ml 02:53 Drug: Insulin Regular Human IVP 5 units IVP once {Co-Signature: vc1 (Kaycee Pan ha1 RN).} Route: IVP; Site: right forearm; 05:30 Follow up: Response: No adverse reaction; Blood sugar is lowered ha1 02:55 Drug: Rocephin - Rocephin (cefTRIAXone) IVPB 1 grams IVPB once over 30 mins; (mix in 50 ha1 mL NS) Route: IVPB; Infused Over: 30 mins; Site: right forearm; 05:35 Follow up: Response: No adverse reaction; IV Status: Completed infusion; IV Intake: ha1 100ml 03:40 Drug: vancoMYCIN IVPB 1 grams IVPB once over 2 hrs Route: IVPB; Infused Over: 2 hrs; vc1 Site: right wrist; 04:00 Follow up: Response: No adverse reaction; IV Status: Infusion continued ha1 05:34 Follow up: Response: No adverse reaction; IV Status: Infusion continued; IV Intake: ha1 190ml 04:10 Drug: morphine IVP or IV 4 mg IVP once over 4 mins Route: IVP; Infused Over: 4 mins; vc1 Site: right wrist; 05:27 Follow up: Response: No adverse reaction; Pain is decreased; RASS: Drowsy (-1) 1 04:13 Drug: Geodon IM 20 mg IM once Route: IM; Site: right vastus lateralis; vc1 04:25 Follow up: Response: No adverse reaction; Anxiety decreased ha1 05:38 Drug: D10 in Water IVP 250 ml IVP once Route: IVP; Site: right forearm; ha1 06:01 Follow up: Response: No adverse reaction; Blood sugar is elevated ha1 Medication: 01:17 VIS not applicable for this client. vc1 Point of Care Testing: Blood Glucose: 05:35 Blood Glucose: 45 mg/dL; ha1 05:57 Blood Glucose: 156 mg/dL; ha1 Ranges: Intake: 02:00 IV: 1000ml; Total: 1000ml. ha1 05:33 IV: 600ml; Total: 1600ml. ha1 05:34 IV: 190ml; Total: 1790ml. ha1 05:35 IV: 100ml; Total: 1890ml. ha1 Outcome: 03:57 Decision to Hospitalize by Provider. sp4 05:20 Admitted to Tele accompanied by tech, via stretcher, room 401, with chart, ha1 05:20 Condition: stable 05:20 Discharge instructions given to patient, Instructed on the need for admit, 06:06 Patient left the ED. ha1 NIH Stroke Scale - NIH Stroke Score Date: 11/20/2023 Time: 18:41 Total Score = 0 10. Dysarthria (speech clarity - read or repeat words) - 0(Normal) 11. Extinction and Inattention (visual/tactile/auditory/spatial/personal) - 0(No abnormality) 1a. Level of Consciousness (LOC) - 0(Alert) 1b. Level of Consciousness (LOC) (Month \T\ Age) - 0(Both) 1c. LOC Commands (Open \T\ Closes Eyes/Sand Hauler) - 0(Both) 2. Best Gaze (Lateral Gaze Paresis) - 0(Normal) 3. Visual Field Loss - 0(No visual loss) 4. Facial Palsy - 0(Normal) 5a. Left Arm: Motor (10-second hold) - 0(No drift) 5b. Right Arm: Motor (10-second hold) - 0(No drift) 6a. Left Leg: Motor (5-second hold - always test supine) - 0(No drift) 6b. Right Leg: Motor (5-second hold - always test supine) - 0(No drift) 7. Limb Ataxia (finger/nose \T\ heel/santoro - test with eyes open) - 0(Absent) 8. Sensory Loss (pinprick arms/legs/face) - 0(Normal) 9. Best Language: Aphasia (description/naming/reading) - 0(No aphasia) Initials: sp4 Signatures: Dispatcher [employer] EDMS Shanika Acosta RN RN lg3 Kaycee Pan RN RN vc1 Annie Valdovinos RN RN ha1 Belkys Torres, PAJohan PAKenn Ornelas MD MD sp4 Kaycee Pan RN vc1 Corrections: (The following items were deleted from the chart) 05:27 04:25 Response: No adverse reaction; Pain is decreased; RASS: Alert and Calm ha1 (0) ha1 05:35 03:20 Response: No adverse reaction ha1 ha1
--- NOTE | 2023-11-20 03:57 | EDPHYS ---
Physician Documentation [facility] Name: Tripp Webster Age: 58 yrs Sex: Male : 1965 Arrival Date: 11/19/2023 Time: 23:29 Bed 5 Private MD: ED Physician Kenn Yap HPI: 11/18 23:43 This 58 yrs old Male presents to ER via Unassigned with complaints of gen sp4 weakness. 11/19 04:13 Historical: Allergies: No Known Allergies; PMHx: CAD; depressive disorder; Diabetes - sp4 IDDM; GERD; Hypercholesterolemia; Hypertension; Myocardial infarction; neuropathy PSHx: cardiac stents; Coronary artery bypass graft . 04:13 Presents with complaint of generalized weakness and feeling unwell. Patient was blood sp4 sugar is elevated based on EMS report . 18:51 Patient also complained about some chest pain and overall discomfort. . sp4 Historical: - Allergies: 11/18 23:30 No Known Allergies; vc1 - PMHx: 23:30 CAD; depressive disorder; Diabetes - IDDM; GERD; Hypercholesterolemia; Hypertension; vc1 Myocardial infarction; neuropathy; - PSHx: 23:30 cardiac stents; Coronary artery bypass graft; vc1 - Immunization history:: Adult Immunizations unknown. - Infectious Disease History:: Denies. - Social history:: Smoking status: unknown. - Family history:: not pertinent. ROS: 11/19 04:13 Constitutional: Negative for fever, chills, and weight loss, positive for generalized sp4 weakness All other systems are negative, Exam: 18:41 Constitutional: This is a well developed, well nourished patient who is awake, alert, sp4 pale and ill appearing Head/Face: Normocephalic, atraumatic. Eyes: Pupils equal round and reactive to light, extra-ocular motions intact. Lids and lashes normal. Conjunctiva and sclera are not injected. Cornea within normal limits. Periorbital areas with no swelling, redness, or edema. ENT: Nares patent. No nasal discharge, no septal abnormalities noted. Tympanic membranes are normal and external auditory canals are clear. Oropharynx with no redness, swelling, or masses, exudates, or evidence of obstruction, uvula midline. Mucous membranes moist. Neck: Trachea midline, no thyromegaly or masses palpated, and no cervical lymphadenopathy. Supple, full range of motion without nuchal rigidity, or vertebral point tenderness. Chest/axilla: Normal chest wall appearance and motion. Nontender with no deformity. No lesions are appreciated. Cardiovascular: Regular rate and rhythm with a normal S1 and S2. No gallops, murmurs, or rubs. Normal PMI, no JVD. No pulse deficits. Respiratory: Lungs have equal breath sounds bilaterally, clear to auscultation and percussion. No rales, rhonchi or wheezes noted. No increased work of breathing, no retractions or nasal flaring. Abdomen/GI: Soft, with normal bowel sounds. No distension or tympany. No guarding or rebound. No evidence of tenderness throughout. Back: No spinal tenderness. No costovertebral tenderness. Male : Normal genitalia with no discharge or lesions. Skin: Warm, dry with normal turgor. Normal color with no rashes, no lesions, and no evidence of cellulitis. MS/ Extremity: Pulses equal, no cyanosis. Neurovascular intact. Full, normal range of motion. Neuro: Awake and alert, GCS 15, oriented to person, place, Cranial nerves II-XII grossly intact. Motor strength 5/5 in all extremities. Sensory grossly intact. Gen weakness limits exam , Vital Signs: 11/18 23:30 BP 115 / 52; Pulse 70; Resp 24; Temp 98; Pulse Ox 94% on R/A; vc1 11/19 00:15 BP 114 / 57; Pulse 72; Resp 26; Pulse Ox 94% ; vc1 00:31 Weight 99.79 kg; Height 5 ft. 11 in. ; vc1 01:00 BP 114 / 55; Pulse 70; Resp 23; Pulse Ox 91% ; vc1 02:00 BP 118 / 61; Pulse 69; Resp 21; Pulse Ox 92% on R/A; vc1 03:00 BP 116 / 67; Pulse 68; Resp 17; Pulse Ox 95% ; vc1 03:45 BP 123 / 74; Pulse 72; Resp 20; Pulse Ox 93% on R/A; vc1 04:00 BP 115 / 60; Pulse 69; Resp 16 S; Pulse Ox 98% on 2 lpm NC; ha1 05:00 BP 117 / 65; Pulse 70; Resp 17 S; Pulse Ox 97% on 2 lpm NC; ha1 00:31 Body Mass Index 30.68 (99.79 kg, 180.34 cm) vc1 NIH Stroke Scale Scores: 18:41 NIHSS Score: 0 sp4 Fausto Coma Score: 18:41 Eye Response: spontaneous(4). Motor Response: obeys commands(6). Verbal Response: sp4 oriented(5). Total: 15. MDM: 11/18 23:46 Patient medically screened. sp4 11/19 03:54 ED course: CLINICAL HISTORY: CONFUSED COMPARISON: None. TECHNIQUE: CT HEAD AND CERVICAL sp4 SPINE WITHOUT CONTRAST on 11/20/2023 2:35 AM CDT This exam was performed according to our departmental dose-optimization program, which includes automated exposure control, adjustment of the mA and/or kV according to patient size and/or use of iterative reconstruction technique. FINDINGS: Brain: There is no acute hemorrhage, mass effect or midline shift. Alvarado-white differentiation is preserved. There is no hydrocephalus. There is no significant volume loss for age. The calvarium is intact. Orbits and globes are unremarkable. The paranasal sinuses are clear. Mastoid air cells are clear. Cervical Spine: There is no acute fracture. Alignment is anatomic. Disc spaces are maintained. Vertebral body heights are preserved. Soft tissues are unremarkable. IMPRESSION: No acute postraumatic findings. . 18:45 Data reviewed: vital signs, nurses notes, EMS record, old medical records, lab test sp4 result(s), radiologic studies, CT scan, plain films. ED course: EXAM DESCRIPTION: CT - Head C Spine Mpr Wo Con - 11/30/2020 7:27 am CLINICAL HISTORY: Head and neck injury status post fall. Head and neck pain COMPARISON: None. TECHNIQUE: Computed axial tomography of the head and cervical spine was obtained. Sagittal and coronal reconstruction was performed. All CT scans are performed using dose optimization technique as appropriate and may include automated exposure control or mA/KV adjustment according to patient size. FINDINGS: An intracranial bleed is not seen. The ventricles are normal in caliber. An extra-axial fluid collection is not noted.Fluid within the visualized sinuses and mastoids is not seen A cervical fracture is not visualized. No dislocation is noted. A 1 centimeter lucency is present within the C3 vertebral body IMPRESSION: No acute intracranial abnormality is seen. A cervical fracture is not visualized. 1 centimeter lucency within the C3 vertebral body is nonspecific. Further evaluation with bone scan could be obtained. If the patient continues to have symptoms to suggest intracranial /spinal cord pathology then MRI would be recommended. 18:49 Differential Diagnosis altered mental status, sepsis, flu. Consideration of sp4 Admission/Observation Patient was admitted/placed on observation. Escalation of care including admission/observation considered. Management of patient was discussed with the following: Hospitalist: Warner SPAIN . ED course: Patient presents with acute generalized weakness as reported by his . Possible Valium Overdose. . 11/18 23:38 Order name: CBC with Diff; Complete Time: 02:35 sp4 11/18 23:38 Order name: CMP; Complete Time: 02:35 sp4 11/18 23:38 Order name: Lipase; Complete Time: 02:35 sp4 11/18 23:38 Order name: Urinalysis w/ reflexes; Complete Time: 03:51 sp4 11/18 23:39 Order name: Troponin High Sensitivity; Complete Time: 02:35 sp4 11/18 23:39 Order name: BNP; Complete Time: 02:35 sp4 11/18 23:40 Order name: CRP; Complete Time: 02:35 sp4 11/18 23:40 Order name: Blood Culture Adult (2) sp4 11/18 23:40 Order name: Lactate w/ 2H reflex if indic.; Complete Time: 02:35 sp4 11/19 04:20 Order name: Thyroid Stimulating Hormone; Complete Time: 18:44 EDMS 11/19 04:20 Order name: CBC with Automated Diff EDMS 11/19 04:20 Order name: CBC with Automated Diff EDMS 11/19 04:20 Order name: Comprehensive Metabolic Panel EDMS 11/19 04:20 Order name: Comprehensive Metabolic Panel EDMS 11/19 04:20 Order name: Lipid Profile EDMS 11/19 04:20 Order name: Lipid Profile EDMS 11/19 04:20 Order name: Magnesium EDMS 11/19 04:20 Order name: Magnesium; Complete Time: 18:44 EDMS 11/19 04:20 Order name: Magnesium EDMS 11/19 04:20 Order name: Magnesium EDMS 11/19 02:35 Order name: CT Head C Spine sp4 11/19 03:55 Order name: Chest Single View XRAY sp4 11/19 04:16 Order name: CT Chest, Abdomen, Pelvis - W/Contrast sp4 11/19 04:20 Order name: Brain With Cont EDMS 11/18 23:39 Order name: EKG; Complete Time: 23:40 sp4 11/19 04:20 Order name: CONS Physician Consult EDMS 11/19 04:20 Order name: CONS Physician Consult EDMS 11/18 23:38 Order name: IV Saline Lock; Complete Time: 00:32 sp4 11/18 23:38 Order name: Labs collected and sent; Complete Time: 00:32 sp4 11/18 23:39 Order name: EKG - Nurse/Tech; Complete Time: 02:39 sp4 11/19 02:40 Order name: Chung: 16G; Complete Time: 02:49 lg3 Administered Medications: 00:32 Drug: Famotidine IVP 20 mg IVP once; dilute with 10 mL 0.9% NaCl; give over 2 minutes vc1 Route: IVP; Site: right wrist; 01:00 Follow up: Response: No adverse reaction ha1 00:32 Drug: Ondansetron IVP 4 mg IVP once; over 2 minutes Route: IVP; Site: right wrist; vc1 01:00 Follow up: Response: No adverse reaction ha1 00:32 Drug: morphine IVP or IV 4 mg IVP once over 4 mins Route: IVP; Infused Over: 4 mins; vc1 Site: right wrist; 01:00 Follow up: Response: No adverse reaction; Pain is unchanged, physician notified; RASS: ha1 Restless (+1) 00:32 Drug: NS 0.9% IV 1000 ml IV at 125 ml/hr continuous Route: IV; Rate: 125 ml/hr; Site: vc1 right wrist; 05:33 Follow up: Response: No adverse reaction; IV Status: Infusion continued; IV Intake: ha1 600ml 00:33 Drug: NS 0.9% IV 1000 ml IV at 1 bolus Per protocol; 1000 mL bolus Route: IV; Rate: 1 vc1 bolus; Site: right wrist; 02:00 Follow up: Response: No adverse reaction; IV Status: Completed infusion; IV Intake: ha1 1000ml 02:53 Drug: Insulin Regular Human IVP 5 units IVP once {Co-Signature: vc1 (Kaycee Pan1 RN).} Route: IVP; Site: right forearm; 05:30 Follow up: Response: No adverse reaction; Blood sugar is lowered ha1 02:55 Drug: Rocephin - Rocephin (cefTRIAXone) IVPB 1 grams IVPB once over 30 mins; (mix in 50 ha1 mL NS) Route: IVPB; Infused Over: 30 mins; Site: right forearm; 05:35 Follow up: Response: No adverse reaction; IV Status: Completed infusion; IV Intake: ha1 100ml 03:40 Drug: vancoMYCIN IVPB 1 grams IVPB once over 2 hrs Route: IVPB; Infused Over: 2 hrs; vc1 Site: right wrist; 04:00 Follow up: Response: No adverse reaction; IV Status: Infusion continued ha1 05:34 Follow up: Response: No adverse reaction; IV Status: Infusion continued; IV Intake: ha1 190ml 04:10 Drug: morphine IVP or IV 4 mg IVP once over 4 mins Route: IVP; Infused Over: 4 mins; vc1 Site: right wrist; 05:27 Follow up: Response: No adverse reaction; Pain is decreased; RASS: Drowsy (-1) ha1 04:13 Drug: Geodon IM 20 mg IM once Route: IM; Site: right vastus lateralis; vc1 04:25 Follow up: Response: No adverse reaction; Anxiety decreased ha1 05:38 Drug: D10 in Water IVP 250 ml IVP once Route: IVP; Site: right forearm; ha1 06:01 Follow up: Response: No adverse reaction; Blood sugar is elevated ha1 Point of Care Testing: Blood Glucose: 05:35 Blood Glucose: 45 mg/dL; ha1 05:57 Blood Glucose: 156 mg/dL; ha1 Ranges: Critical Glucose Levels:Adult <50 mg/dl or >400 mg/dl <40 mg/dl or >180 mg/dl Disposition Summary: 11/20/23 03:57 Hospitalization Ordered Notes: Hospitalization Status: Inpatient Admission sp4 Provider: Jm Carlin Location: Telemetry/[facility] (Inpatient) sp4 Condition: Stable sp4 Problem: new sp4 Symptoms: have improved sp4 Bed/Room Type: Standard sp4 Room Assignment: 401(11/20/23 04:29) cg Diagnosis - Muscle weakness (generalized) sp4 - Acute renal insufficiency, hyperglycemia, Atypical chest pain sp4 Forms: - Medication Reconciliation Form sp4 - SBAR form sp4 - Leadership Thank You Letter sp4 NIH Stroke Scale - NIH Stroke Score Date: 11/20/2023 Time: 18:41 Total Score = 0 10. Dysarthria (speech clarity - read or repeat words) - 0(Normal) 11. Extinction and Inattention (visual/tactile/auditory/spatial/personal) - 0(No abnormality) 1a. Level of Consciousness (LOC) - 0(Alert) 1b. Level of Consciousness (LOC) (Month \T\ Age) - 0(Both) 1c. LOC Commands (Open \T\ Closes Eyes/Bleach Maker) - 0(Both) 2. Best Gaze (Lateral Gaze Paresis) - 0(Normal) 3. Visual Field Loss - 0(No visual loss) 4. Facial Palsy - 0(Normal) 5a. Left Arm: Motor (10-second hold) - 0(No drift) 5b. Right Arm: Motor (10-second hold) - 0(No drift) 6a. Left Leg: Motor (5-second hold - always test supine) - 0(No drift) 6b. Right Leg: Motor (5-second hold - always test supine) - 0(No drift) 7. Limb Ataxia (finger/nose \T\ heel/santoro - test with eyes open) - 0(Absent) 8. Sensory Loss (pinprick arms/legs/face) - 0(Normal) 9. Best Language: Aphasia (description/naming/reading) - 0(No aphasia) Initials: sp4 Signatures: Dispatcher [employer] EDAnya Rdz RN RN cg Able, Lacie, RN RN lg3 Kaycee Pan RN RN vc1 Annie Valdovinos RN RN ha1 Kenn Yap MD MD sp4 Kaycee Pan RN vc1 Corrections: (The following items were deleted from the chart) 03:55 03:55 Chest Single View+[email or web address] ordered. EDDC EDMS 04:29 03:57 sp4 nohemi
[2023-11-20] MEDS ORDERED: WATER FOR INJ,STERILE 10 ML ONE (03:58)
[2023-11-20] MEDS ORDERED: ZIPRASIDONE MESYLA 20 MG/VIAL IM ONE (03:58)
[2023-11-20] MEDS ORDERED: ACETAMINOPHEN 500 MG TAB PO PRN (04:11)
[2023-11-20] MEDS ORDERED: ALBUTEROL 2.5 MG/3 ML NEB SOL NEB PRN (04:11)
[2023-11-20] MEDS ORDERED: MORPHINE 2 MG/ML SYR IV PRN (04:11)
--- NOTE | 2023-11-20 04:12 | P.HP ---
Certification for Inpatient With expected LOS: >2 Midnights Patient will require the following post-hospital care: None Practitioner: I am a practitioner with admitting privileges, knowledge of patient current condition, hospital course, and medical plan of care. Services: Services provided to patient in accordance with Admission requirements found in Title 42 Section 412.3 of the Code of Federal Regulations Patient History Date of Service: 11/20/23 Reason for admission: Confusion History of Present Illness: 58-year-old male with past medical history of hypertension/DM/CAD status post CABG last year with subsequent increasing confusion. Patient was admitted here 3 months ago for worsening confusion and was started on Seroquel and recommended psychiatric follow-up; Patient was brought by EMS today after has called EMS stating patient is weak and confused. She apparently reported patient has been confused since this evening. On arrival in the ED, vital signs were stable, head CT shows no acute intracranial pathology. CBC was unremarkable, BMP shows creatinine elevation of 1.47, glucose of greater than 300. CRP was elevated at 29. Troponin was normal, BNP was mildly elevated at 4200. Lactic acid elevated at 3.0. Patient was reportedly screaming and agitated in the emergency room and was given Geodon and now patient is drowsy at the time of my interview. Phone call made to , sounded sleepy on the phone but she reported that she thinks patient has taken a bunch of Valium. She is unable to tell how many pills of Valium patient took. She said patient was also more shouting and hollering this evening than before. She states she thought patient sugar was low and she has given patient a bunch of candies before EMS arrived. However patient is unable to clearly tell if patient has been about his baseline prior to today or if he still has intermittent confusion since last admission. She denies any new fever or chills. She however seems sleepy and slow to answer questions during this my telephone conversation at 4:38 AM this morning Allergies No Known Allergies Allergy (Verified 04/12/23 06:04) Home Medications: Aspirin Chewable [Aspirin Chewable*] 81 mg PO DAILY 04/12/23 Atorvastatin Calcium [Lipitor] 80 mg PO DAILY 04/12/23 Clopidogrel Bisulfate [Plavix*] 75 mg PO DAILY 04/12/23 Magnesium Oxide [Mag 0X*] 400 mg PO DAILY 04/12/23 Citalopram Hydrobromide [Celexa] 20 mg PO DAILY 09/03/23 Gabapentin 300 mg PO BID 09/03/23 Clopidogrel Bisulfate [Plavix*] 75 mg PO DAILY 09/04/23 Insulin 70/30 NPH/Reg Human [Novolin 70/30*] 20 unit SQ BIDAC ml 09/04/23 Quetiapine Fumarate [Seroquel] 25 mg PO SEECOM 30 Days #90 tab 09/12/23 - Past Medical/Surgical History Diabetic: Yes -: Hypertension -: Diabetes mellitus type 2 insulin dependent -: CAD with prior stent -: Hyperlipidemia -: Diabetic neuropathy -: Obesity -: Sleep apnea noncompliant -: CVA -: Chronic diastolic congestive heart failure -: Stent placement x5 -: back surgery -: ble vascular sx -: Appendectomy -: Multiple debridement left great toe -: cabg 02/03/23-2v Psychosocial/ Personal History: Patient is - Family History Father -: Heart disease, Diabetes Mother -: Heart disease - Social History Smoking Status: Never smoker Smoking therapy provided: No Patient receptive to therapy: No Alcohol use: No CD- Drugs: No Caffeine use: No Place of Residence: Home Review of Systems 10-point ROS is otherwise unremarkable Physical Examination - Physical Exam General: Alert, Oriented x1, Confused HEENT: Atraumatic, Normocephalic, PERRLA Neck: Supple, 2+ carotid pulse no bruit, JVD not distended Respiratory: Clear to auscultation bilaterally, Normal air movement Cardiovascular: Normal pulses, Regular rate/rhythm, Normal S1 S2 Gastrointestinal: Normal bowel sounds, Non-distended Musculoskeletal: No clubbing, No swelling, No contractures, Other (hypoigmented left santoro patch , missing toes left foot ) Integumentary: No breakdown, No significant lesion, No tenderness/swelling Neurological: Normal speech, Other (lethargic , open eyes and only grunts when called ), Dementia - Studies Laboratory Data (last 24 hrs) 11/20/23 11/20/23 00:12 00:12 WBC 6.50 Hgb 9.9 L Hct 29.8 L Plt Count 308 Sodium 133 L Potassium 3.9 BUN 23 H Creatinine 1.47 H Glucose 336 H Total Bilirubin 2.0 H AST 11 L ALT 53 Alkaline Phosphatase 326 H Lipase 9 L Assessment and Plan - Problems (Diagnosis) (1) AMS (altered mental status) Current Visit: No Status: Acute - Plan Impression Acute sepsis Acute metabolic encephalopathy Hypertension DM with hyperglycemia Status post CABG History of diastolic CHF Plan Will admit to inpatient Will obtain urine drug screen although patient does not appear to have ingested multiple Valium as suggested Will obtain blood culture x 2 Obtain chest x-ray to rule out "pneumonia, also obtain UA to rule out UTI Start empirical Vanco/cefepime Given elevated CRP, suspected infectious etiology causing acute metabolic encephalopathy Will plan for MRI brain to rule out possible encephalitis Geodon as needed agitation Resume home regimen including Seroquel Insulin sliding scale with Accu-Cheks Gentle IV fluid with NS despite mild elevated BNP Full code Subcutaneous Lovenox for DVT prophylaxis Mild creatinine elevation may be due to acute sepsis, follow with gentle IV fluid Dispo possible hospital stay for more than 48 hours - Advance Directives Does patient have a Living Will: No Does patient have a Durable POA for Healthcare: No Time Spent Managing Pts Care (In Minutes): 70
[2023-11-20] MEDS: VANCOMYCIN 1 GM in NA CHLORIDE 0.9% 250 ML IVPB SCH (05:00)
[2023-11-20] MEDS: NA CHLORIDE 0.9% 1,000 ML IV SCH (05:00)
[2023-11-20] MEDS ORDERED: D10W 250 ML IV ONE (05:39)
[2023-11-20] MEDS: VANCOMYCIN 1 GM/VIAL ONE (06:45)
[2023-11-20] MEDS: NA CHLORIDE 0.9% 500 ML ONE (06:45)
[2023-11-20] MEDS: VANCOMYCIN 1.5 GM in NA CHLORIDE 0.9% 500 ML IVPB ONE (06:51)
[2023-11-20] MEDS: INSULIN REGULAR (HUMAN) 100 UNIT/ML SQ SCH (07:30)
[2023-11-20] MEDS: ENOXAPARIN 40 MG/0.4 ML SQ SCH (08:52)
[2023-11-20] MEDS: ASPIRIN EC 81 MG TAB PO SCH (08:52)
[2023-11-20 10:41] LABS: Magnesium 2.3 mg/dL (1.6-2.4)
[2023-11-20 10:45] LABS: Thyroid Stimulating Hormone 7.67 uIU/mL (0.358-3.740)
--- NOTE | 2023-11-20 11:24 | P.PN ---
Date of Service: 11/20/23 Subjective: Groans with verbal or physical stimulation, moves all four extremities ROS: 10 point ROS as noted above, otherwise negative Physical exam GEN: Alert, oriented, NAD HEENT: Normal conjunctiva, sclera anicteric CV: Regular rate and rhythm, no edema Pulm: Nonlabored respirations on room air ABD: Soft, nontender, nondistended MSK: No joint tenderness Integumentary: Erythema/scabbing noted to right santoro Neuro: Drowsy, Groans with verbal or physical stimulation, moves all four extremities Vitals reviewed Assessment Rule out sepsis Acute metabolic encephalopathy Hypertension DM with hyperglycemia Status post CABG History of diastolic CHF Plan Rule out sepsis WBC within normal limits, afebrile No source of infection identified thus far On empiric antibiotics, blood cultures pending CRP, lactate elevated, repeat lactate less than 2 Continue IV fluids, await blood cultures Acute metabolic encephalopathy History of toxic metabolic encephalopathy secondary to medication disease Patient with prescription for Valium filled on 11/12 30 tablets once daily as needed Only 19 pills in the bottle, approximately 5 tablets unaccounted for was concerned he may have been taking extra Valium at home Hold oral medications for now, resume appropriate medications when patient is more alert MRI ordered and pending DM with hyperglycemia ACHS Accu-Chek, sliding scale insulin Hypertension Status post CABG History of diastolic CHF Continue home medications when patient can follow commands VTE: Lovenox Code: Full Dispo: 48 hours Time Spent Managing Pts Care (In Minutes): 35
--- NOTE | 2023-11-20 11:41 | EKG ---
Test Date: 2023-11-20 Test Time: 02:22:49 Unit Receptionist: JOSSY MEASUREMENT RESULTS: Intervals: Rate: 68 NM: 178 QRSD: 90 QT: 448 QTc: 476 [place]: P: 67 NM: 178 QRS: 55 T: 89 INTERPRETIVE STATEMENTS: Normal sinus rhythm Prolonged QT Abnormal ECG Compared to ECG 10/20/2023 03:57:56 Prolonged QT interval now present Right-axis deviation no longer present ST (T wave) deviation no longer present Electronically Signed On 11-20-23 11:40:22 CDT by Torin Hernández
[2023-11-20] MEDS: THIAMINE 200 MG/2 ML INJ IVP SCH (16:36)
[2023-11-20] MEDS: FAMOTIDINE 20 MG/2 ML VIAL IV ONE (18:15)
[2023-11-20 18:55] LABS: Barbiturates NEGATIVE (NEGATIVE); Benzodiazepines POSITIVE (NEGATIVE); Cocaine NEGATIVE (NEGATIVE); METHAMPHETAM NEGATIVE (NEGATIVE); Methadone NEGATIVE (NEGATIVE); Opiates POSITIVE (NEGATIVE); Phencyclidine NEGATIVE (NEGATIVE); THC Cannibis NEGATIVE (NEGATIVE)
[2023-11-20] MEDS: WATER FOR INJ,STERILE 10 ML IM PRN (19:00)
[2023-11-20] MEDS: ZIPRASIDONE MESYLA 20 MG/VIAL IM PRN (19:00)
--- NOTE | 2023-11-20 19:39 | RAD REPORT ---
EXAM DESCRIPTION: US - Renal Ultrasound-Complete - 11/20/2023 7:16 pm CLINICAL HISTORY: miladys COMPARISON: Barium Swallow Modified dated 06/30/2023 FINDINGS: The right kidney measures 11.1 cm. No hydronephrosis, focal mass or perinephric fluid. The left kidney measures 9.9 cm. No hydronephrosis, focal mass or perinephric fluid. Decompressed via Chung catheter . IMPRESSION: No hydronephrosis. No acute findings.
--- NOTE | 2023-11-20 20:08 | CON ---
Date of Consultation: 11/20/2023 Chief Complaint: Confusion. The patient was found to have elevated BUN and creatinine. Nephrology consultation is requested for acute kidney injury. History Of Present Illness: The patient is a 58-year-old man with past medical history of hypertension; diabetes mellitus; coronary artery disease, status post CABG last year with history of hyperlipidemia. The patient was previously admitted about 3 months ago for worsening of confusion, and he was started on Seroquel. He was to follow up with psychiatrist. The patient during this admission is undergoing workup for altered mental status. He was brought by EMS today after his called EMS stating the patient was weak and confused. Apparently, his altered mental status was progressively worse since yesterday evening. On arrival to emergency department, vital signs were stable. CT scan of the head showed no acute intracranial pathology. CBC was unremarkable. BUN and creatinine level were slightly elevated. Creatinine was 1.47 and glucose was greater than 300. CRP was 29. Troponin was normal. BNP was mildly elevated at 4200, lactic acid was elevated at 3.0. The patient reported some disorientation, but he was mostly agitated in the emergency room and he was given Geodon. He is lethargic, cannot provide review of systems. As per his , patient was having some disorientation since last evening. Apparently, patient took some Valium according to his . Review of Systems: Unobtainable. Past Medical History: Hypertension; diabetes mellitus type 2, insulin dependent; coronary artery disease with prior stent; hyperlipidemia; diabetic neuropathy; obesity; sleep apnea, noncompliant with CPAP; CVA; chronic diastolic congestive heart failure, stent placement x5; back surgery; appendectomy; multiple debridements for left great toe osteomyelitis and cellulitis; CABG, on February 01, 2023; 2 vessel disease. Family History: Father, heart disease, diabetes. Mother heart disease. Social History: Never smoker. Negative for caffeine and negative for alcohol. Physical Examination: General: The patient is oriented x1. Remains confused. HEENT: Atraumatic and normocephalic. Neck: Supple. No bruits. Respiratory: Clear to auscultation bilaterally. Normal air movement. Cardiovascular: S1, S2. No pericardial friction rub. Abdomen: Soft, benign, nontender. Musculoskeletal: No swelling, no clubbing. Skin: Warm and dry. No skin rashes. Neurologic: The patient is lethargic. Laboratory Data: Hemoglobin 9.9, platelet count 308,000, WBC 6.5, hematocrit 29.8. Sodium 133, potassium 3.9, BUN 23, creatinine 1.47, glucose 336. Total bilirubin 2.0, AST 11, ALT 53, AP 326. Lipase 9. Sodium 139, potassium 3.3, chloride 110, carbon dioxide 23. Sodium 133, potassium 3.9, chloride 104, CO2 of 25, BUN 23, creatinine 1.47. Anion gap 7.9. Glucose 336. GFR 54. Calcium 8.9. Total bilirubin 2.0, AP 326. In October, BUN was 15, creatinine level 1.05, sodium 139, potassium 3.3, chloride 110, CO2 of 23. Impression And Plan: The patient is admitted to the hospital because of altered mental status. He is undergoing workup of sepsis. He was found to have elevated lactic acid level. Bicarbonate level is over 20. Continue to monitor electrolytes. Renal function is diminished. The patient has acute on chronic kidney injury. The patient has history of diabetes mellitus. Recommend to rule out urinary tract infection. The patient underwent CT scan of the abdomen and pelvis to rule out obstructive uropathy. 1. The patient has history of altered mental status and possible dementia. Recommend Neurology workup. Apparently, patient took Valium, which may be contributory to the altered mental status and somnolence. 2. Diabetes mellitus with renal manifestation. Check urine protein, creatinine ratio to assess proteinuria. 3. CT scan of the abdomen and pelvis results are pending. I recommend to check renal ultrasound and check bladder scan to rule out bladder outlet obstruction, urinary retention. 4. Acute kidney injury. Etiology likely related to uncontrolled diabetes as well as medication effect, lytes and Valium. 5. Possible hypotensive episode in setting of oversedation for recommendation from primary team. GILBERT/NAEVEN Voice ID: [id number] Report ID: [id number] SASCHA
[2023-11-20] MEDS: MORPHINE 4 MG/ML SYR IV PRN (20:09)
--- NOTE | 2023-11-20 21:00 | RAD REPORT ---
EXAM DESCRIPTION: CT - Chest Abdomen Pelvis W Cont - 11/20/2023 6:37 am CLINICAL HISTORY: CHEST PAIN COMPARISON: None. TECHNIQUE: CT CHEST ABDOMEN PELVIS WITH IV CONTRAST on 11/20/2023 4:16 AM CDT. MIPS reconstructions we re generated. This exam was performed according to our departmental dose-optimization program, which includes autom ated exposure control, adjustment of the mA and/or kV according to patient size and/or use of iterati ve reconstruction technique. FINDINGS: Vascular: Thoracic aorta is normal in course and caliber without aneurysm or dissection. P ulmonary arteries are suboptimally opacified. There are no large or central filling defects. Abdomina l aorta is normal in course and caliber without aneurysm. Pelvic arteries are patent without aneurysm or occlusion. Chest: The heart is enlarged following sternotomy. 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 There is no josh cardial effusion. There are multiple borderline central mediastinal lymph nodes. There is a small to moderate right pleural effusion. Central airways are patent. There are mosaic att enuation changes in both lungs. There is mostly bibasilar scarring and atelectasis. Abdomen: The liver is normal in appearance. There is no biliary dilatation. Gallbladder contains laye ring gallstones or sludge. The pancreas and spleen are normal in appearance. The adrenal glands and k idneys are unremarkable. There is no free air. There is no retroperitoneal adenopathy.There is a small fat-containing umbilica l hernia. Pelvis: There is no bowel obstruction. Urinary bladder is unremarkable. There is no free fluid. Appen rafiq is poorly seen. Skeleton: There are multiple old posterior and posterolateral left rib fractures. IMPRESSION: Cardiomegaly with no aortic dissection or aneurysm. No large or central pulmonary embolu s. Right pleural effusion with bibasilar atelectasis and scarring. No definite acute inflammatory process in the abdomen or pelvis. Electronically signed by: Brett Gerardo MD 11/20/2023 05:58 AM CDT Due to temporary technical issues with the PACS/Fluency reporting system, reports are being signed by the in house radiologists without review as a courtesy to insure prompt reporting. The interpreting radiologist is fully responsible for the content of the report.
--- NOTE | 2023-11-20 21:04 | RAD REPORT ---
EXAM DESCRIPTION: RAD - Chest Single View - 11/20/2023 4:08 am CLINICAL HISTORY: CHEST PAIN COMPARISON: 10/20/2023. TECHNIQUE: XR CHEST 1 VIEW 11/20/2023 3:55 AM CDT FINDINGS: The heart is enlarged. Sternotomy was performed. There are moderate patchy opacities scatt ered throughout both lungs. There is no pleural effusion. There is no pneumothorax. There are multipl e old bilateral rib fractures. IMPRESSION: Slightly worsening aeration of the lungs. Electronically signed by: Brett Gerardo MD 11/20/2023 04:37 AM CDT RP Due to temporary technical issues with the PACS/Fluency reporting system, reports are being signed by the in house radiologists without review as a courtesy to insure prompt reporting. The interpreting radiologist is fully responsible for the content of the report.
--- NOTE | 2023-11-20 21:08 | RAD REPORT ---
EXAM DESCRIPTION: CT - Head C Spine Mpr Wo Con - 11/20/2023 6:37 am CLINICAL HISTORY: CONFUSED COMPARISON: None. TECHNIQUE: CT HEAD AND CERVICAL SPINE WITHOUT CONTRAST on 11/20/2023 2:35 AM CDT This exam was performed according to our departmental dose-optimization program, which includes autom ated exposure control, adjustment of the mA and/or kV according to patient size and/or use of iterati ve reconstruction technique. FINDINGS: Brain: There is no acute hemorrhage, mass effect or midline shift. Alvarado-white differentiat ion is preserved. There is no hydrocephalus. There is no significant volume loss for age. The calvarium is intact. Orbits and globes are unremarkable. The paranasal sinuses are clear. Mastoid air cells are clear. Cervical Spine: There is no acute fracture. Alignment is anatomic. Disc spaces are maintained. Vertebral body heights are preserved. Soft tissues are unremarkable. IMPRESSION: No acute postraumatic findings. Electronically signed by: Brett Gerardo MD 11/20/2023 03:35 AM CDT Due to temporary technical issues with the PACS/Fluency reporting system, reports are being signed by the in house radiologists without review as a courtesy to insure prompt reporting. The interpreting radiologist is fully responsible for the content of the report.
[2023-11-20] MEDS: VANCOMYCIN 1.75 GM in NA CHLORIDE 0.9% 500 ML IVPB SCH (22:14)
[2023-11-20 22:36] LABS: Albumin 2.9 g/dL (3.4-5.0); Albumin/Globulin Ratio 0.8 (1.1-1.8); Anion Gap 7.3 mEq/L (5.0-15.0); Globulin 3.6 g/dL (2.3-3.5); Magnesium 1.8 mg/dL (1.6-2.4); Phosphorus 3.7 mg/dL (2.5-4.9); Potassium 4.3 mEq/L (3.5-5.1); Protein, Total 6.5 g/dL (6.4-8.2); Uric Acid 6.8 mg/dL (3.5-7.2)
[2023-11-21] MEDS: LORazepam 2 MG/ML VIAL IV ONE ×2 (01:49→11:06)
[2023-11-21] MEDS: ZIPRASIDONE MESYLA 20 MG/VIAL IM ONE ×2 (01:50→21:10)
[2023-11-21] MEDS ORDERED: WATER FOR INJ,STERILE 10 ML IM PRN ×2 (01:50→21:10)
[2023-11-21] MEDS: LORazepam 2 MG/ML VIAL ONE (02:06)
[2023-11-21] MEDS: CEFTRIAXONE 1,000 MG in NA CHLORIDE 0.9% 50 ML IVPB SCH (03:57)
[2023-11-21 04:32] LABS: Absolute Basophils 0.1 K/uL (0-0.5); Absolute Eosinophils 0.3 K/uL (0-0.5); Absolute Lymphocytes (CBC) 0.9 K/uL (0.7-4.9); Absolute Monocytes 0.9 K/uL (0.1-1.3); Absolute Neutrophil 6.3 K/uL (1.8-8.0); Basophils % 0.8 % (0-1.3); Hematocrit 28.5 % (39.6-49.0); Hemoglobin 9.3 g/dL (13.6-17.9); Lymphocytes % 10.5 % (15.3-44.8); MCHC 32.7 g/dL (32.0-36.0); MCV 82.6 fL (80-100); Monocytes % 10.6 % (3.3-12.3); Neutrophils % 75.1 % (41.7-73.7); Platelets 252 thou/uL (152-406); RBC Red Blood Cell Count 3.46 M/uL (4.33-5.43); Red Cell Distribution Width 17.3 % (12.1-15.2)
[2023-11-21 04:46] LABS: ALT/SGPT 39 U/L (16-61); Albumin 2.8 g/dL (3.4-5.0); Albumin/Globulin Ratio 0.7 (1.1-1.8); Alkaline Phosphatase 272 U/L (45-117); Anion Gap 6.6 mEq/L (5.0-15.0); BUN Blood Urea Nitrogen 13 mg/dL (7-18); Bicarbonate 26 mEq/L (21-32); Globulin 3.9 g/dL (2.3-3.5); Glomerular Filtration Rate 83 ml/min (=/>90); Glucose Level 305 mg/dL (74-106); HDL Cholesterol 43 mg/dL (40-60); LDL Cholesterol, Calculated 56 mg/dL (<130); LDL Cholesterol,Calc NonReport 56; Potassium 4.6 mEq/L (3.5-5.1); Protein, Total 6.7 g/dL (6.4-8.2); Sodium Level 137 mEq/L (136-145)
[2023-11-21 04:51] LABS: AST/SGOT < 10 U/L (15-37)
--- NOTE | 2023-11-21 11:02 | P.PN ---
Date of Service: 11/21/23 Subjective: Waking up slowly agitated when awakening Chung discontinued try to limit sedation/antibiotics ROS: 10 point ROS as noted above, otherwise negative Physical exam GEN: Drowsy, speech slurred, agitated, oriented x2, cries out frequently HEENT: Normal conjunctiva, sclera anicteric CV: Regular rate and rhythm, no edema Pulm: Nonlabored respirations on room air ABD: Soft, nontender, nondistended MSK: No joint tenderness Integumentary: Erythema/scabbing noted to right santoro Neuro: Drowsy, Groans with verbal or physical stimulation, moves all four extremities Vitals reviewed Assessment Rule out sepsis-ruled out Acute metabolic encephalopathy Hypertension DM with hyperglycemia Status post CABG History of diastolic CHF Plan Rule out sepsis-ruled out WBC within normal limits, afebrile No source of infection identified thus far CRP, lactate elevated, repeat lactate less than 2 Blood cultures with no growth in 24 hours, afebrile, abx discontinued Acute metabolic encephalopathy History of toxic metabolic encephalopathy secondary to medication disease Patient with prescription for Valium filled on 11/12 30 tablets once daily as needed Only 19 pills in the bottle, approximately 5 tablets unaccounted for was concerned he may have been taking extra Valium at home Hold oral medications for now, resume appropriate medications when patient is more alert MRI ordered and pending try to limit sedation, restart home meds when he can tolerate PO DM with hyperglycemia ACHS Accu-Chek, sliding scale insulin Hypertension Status post CABG History of diastolic CHF Continue home medications when patient can follow commands VTE: Lovenox Code: Full Dispo: 48 hours Time Spent Managing Pts Care (In Minutes): 35
[2023-11-21] MEDS ORDERED: FERROUS SULFATE 325 MG TAB PO SCH (14:00)
[2023-11-21] MEDS: DIAZEPAM 5 MG TABLET PO PRN (14:34)
[2023-11-21] MEDS: carvediloL 12.5 MG TAB PO SCH (16:02)
[2023-11-21] MEDS ORDERED: FAMOTIDINE 20 MG/2 ML VIAL IV ONE (17:00)
[2023-11-21] MEDS ORDERED: carvediloL 12.5 MG TAB PO SCH (18:00)
[2023-11-21] MEDS: ATORVASTATIN 80 MG TAB PO SCH (21:00)
[2023-11-21] MEDS: TRAZODONE 50 MG TABLET PO SCH (21:00)
[2023-11-21] MEDS: QUETIAPINE 25 MG TAB PO SCH (21:00)
[2023-11-21] MEDS: ONDANSETRON 4 MG/2 ML VIAL IV PRN (21:17)
[2023-11-21] MEDS: HYDRALAZINE HCL 20 MG/ML VIAL IV PRN (21:17)
[2023-11-22] MEDS: LORazepam 2 MG/ML VIAL ONE (01:04)
[2023-11-22] MEDS: LORazepam 2 MG/ML VIAL IV ONE (01:06)
[2023-11-22 05:11] LABS: Hematocrit 29.5 % (39.6-49.0); Hemoglobin 9.6 g/dL (13.6-17.9); MCH 27.3 pg (27.0-35.0); MCHC 32.7 g/dL (32.0-36.0); MCV 83.5 fL (80-100); MPV 7.4 fL (7.6-11.3); Platelets 255 thou/uL (152-406); RBC Red Blood Cell Count 3.53 M/uL (4.33-5.43); Red Cell Distribution Width 17.1 % (12.1-15.2)
[2023-11-22 05:16] LABS: Anion Gap 9.9 mEq/L (5.0-15.0); Potassium 4.9 mEq/L (3.5-5.1)
--- NOTE | 2023-11-22 05:22 | PN ---
Date of Progress Note: 11/21/2023 Chief Complaint: Acute kidney injury. Nephrology consultation was requested for elevated BUN and cr eatinine levels. History Of Present Illness: The patient was admitted to the hospital because of confusion, encephalo hair. The patient has history of coronary artery disease, diabetes mellitus, hypertension, hyperlip idemia, history of altered mental status. Previously was seen by psychiatrist. Medications were aren nged. He recently was taking Seroquel. In the emergency room, he was given Geodon. Lab work done i n the emergency room showed lactic acid of 3, creatinine 1.47, glucose greater than 300. BNP was mil dly elevated up to 4200. The patient was lethargic and could not provide review of systems. His wif cedrick said that he had some disorientation the evening before admission, although he has chronic history of confusion and anxiety. Apparently, according to his , the patient took some Valium. Review of Systems: Unobtainable. The patient is awake today, arousable, although he denies pain. Denies headache, visi on changes. Physical Examination: Lungs: Clear to auscultation bilaterally. Heart: S1, S2. Abdomen: Soft. Extremities: Minimal edema. Impression And Plan: Encephalopathy, altered mental status. Workup is conducted by Primary team. C ontinue to monitor electrolytes. The patient was found to have elevated lactic acid level, although total CO2 was 25, chloride 104, and sodium 133. There is mild hyponatremia. The patient although kat d blood glucose of 336, which corresponds to pseudohyponatremia and hyponatremia related to hyperglyc emia. CT scan of the abdomen and pelvis was ordered to rule out obstructive uropathy, and renal ultr asound was done. There was no hydronephrosis. Recommended to monitor urine output. Diabetes mellit us with renal manifestation. Check urine protein-creatinine ratio. Assess for proteinuria. Acute k idney injury. Etiology related to uncontrolled diabetes, volume depletion, and medication effects. Hypotensive episodes in setting of oversedation. Recommendation from primary team. GILBERT/MODL Voice ID: [id number] Report ID: [id number]
[2023-11-22] MEDS: FOLIC ACID 1 MG TABLET PO SCH (07:38)
[2023-11-22] MEDS: ESCITALOPRAM 20 MG TAB PO SCH (07:39)
[2023-11-22] MEDS: DOXEPIN HCL 25 MG CAP PO SCH (07:39)
[2023-11-22] MEDS: CLOPIDOGREL 75 MG TABLET PO SCH (07:39)
[2023-11-22] MEDS: HYDROMORPHONE HCL 1 MG/ML INJ IV ONE (07:58)
[2023-11-22] MEDS ORDERED: LORazepam 2 MG/ML VIAL IV SCH (08:30)
[2023-11-22] MEDS ORDERED: INSULIN GLARGINE 100 UNIT/ML SQ SCH (09:00)
[2023-11-22 09:01] LABS: Albumin 3.1 g/dL (3.4-5.0); Albumin/Globulin Ratio 0.8 (1.1-1.8); Bilirubin Direct 0.4 mg/dL (0-0.2); Bilirubin Total 1.4 mg/dL (0.2-1.0); Protein, Total 7.1 g/dL (6.4-8.2)
--- NOTE | 2023-11-22 09:21 | RAD REPORT ---
EXAM DESCRIPTION: US - Abdomen Exam Limited - 11/22/2023 9:11 am CLINICAL HISTORY: abdominal pain, elevated LFT COMPARISON: Renal Ultrasound-Complete dated 11/20/2023 FINDINGS: The gallbladder demonstrates no gallstones. Small amount of sludge is possible. No pericho lecystic fluid or gallbladder wall thickening. The common bile duct is normal measuring 3 mm. The liver demonstrates no findings of intrahepatic biliary dilatation. IMPRESSION: Unremarkable examination.
[2023-11-22] MEDS: INSULIN GLARGINE 100 UNIT/ML SQ SCH (10:53)
--- NOTE | 2023-11-22 11:11 | RAD REPORT ---
EXAM DESCRIPTION: RAD - Chest Single View - 11/22/2023 10:52 am CLINICAL HISTORY: f/u opacities/effusion Chest pain. COMPARISON: Chest Single View dated 11/20/2023; Chest Single View dated 10/20/2023; Chest Single View da sho 09/09/2023; Chest Single View dated 09/03/2023 FINDINGS: Portable technique limits examination quality. Moderate bilateral pulmonary opacities are present most compatible with pulmonary edema. Findings xiang ear mildly progressive since comparative study. The heart is moderately enlarged. Sternotomy wires ar e present. IMPRESSION: Mild worsening in lung aeration seen since 11/20/2023 study.
--- NOTE | 2023-11-22 11:22 | P.PN ---
Date of Service: 11/22/23 Subjective: Not oriented this morning, delusional Spoke with on the phone, concerned of this overdose and informed the deputy of her concerns Will limit geodon and ativan to help improve mentation ROS: 10 point ROS as noted above, otherwise negative Physical exam GEN: disoriented, speech slurred, agitated, hollering HEENT: Normal conjunctiva, sclera anicteric CV: RRR, S1-S2 present, no edema Pulm: Nonlabored respirations on room air ABD: Soft and benign on palpation, nontender, nondistended MSK: No joint tenderness, 2+ peripheral pulses Integumentary: Erythema/scabbing noted to right santoro Neuro: Drowsy, Groans with verbal or physical stimulation, moves all four extremities Vitals reviewed Assessment Rule out sepsis-ruled out Acute metabolic encephalopathy Hypertension DM with hyperglycemia Status post CABG History of diastolic CHF Plan Rule out sepsis- ruled out Pulmonary edema Delusional -WBC within normal limits, afebrile -No source of infection identified thus far -CRP, lactate elevated, repeat lactate less than 2 -Blood cultures with no growth in 24 hours, afebrile, abx discontinued -Chest xray 11/22/23 "Moderate bilateral pulmonary opacities are present most compatible with pulmonary edema. Findings appear mildly progressive since comparative study. The heart is moderately enlarged. Sternotomy wires are present. IMPRESSION: Mild worsening in lung aeration seen since 11/20/2023 study." -Lasix x1 -Restraints applied Acute metabolic encephalopathy -History of toxic metabolic encephalopathy secondary to medication disease -Patient with prescription for Valium filled on 11/12 30 tablets once daily as needed -Only 19 pills in the bottle, approximately 5 tablets unaccounted for - was concerned he may have been taking extra Valium at home -Hold oral medications for now, resume appropriate medications when patient is more alert -MRI ordered and pending -continue to limit sedation, restart home meds when he can tolerate PO -US abdomen reports "The gallbladder demonstrates no gallstones. Small amount of sludge is possible. No pericholecystic fluid or gallbladder wall thickening. The common bile duct is normal measuring 3 mm. The liver demonstrates no findings of intrahepatic biliary dilatation. IMPRESSION: Unremarkable examination." DM with hyperglycemia -ACHS Accu-Chek, sliding scale insulin Hypertension Status post CABG History of diastolic CHF -Continue home medications when patient can follow commands VTE: Lovenox Code: Full Dispo: 48 hours
[2023-11-22] MEDS: INSULIN REGULAR (HUMAN) 100 UNIT/ML SQ SCH (12:30)
[2023-11-22] MEDS: FERROUS SULFATE 325 MG TAB PO SCH (17:00)
[2023-11-22] MEDS: HYDROMORPHONE HCL 0.5 MG/0.5 ML INJ IV SCH (17:12)
[2023-11-22] MEDS: FUROSEMIDE 40 MG/4 ML VIAL IV ONE (17:13)
--- NOTE | 2023-11-22 18:55 | PN ---
Date of Progress Note: 11/22/2023 Chief Complaint: Acute kidney injury. Nephrology consultation was requested for elevated BUN and cr eatinine. Subjective: The patient is admitted to the hospital because of confusion, encephalopathy. Apparentl y, he took Valium at home and he became confused, dizzy, lethargic, and was brought to the hospital. According to his , he took some Valium before he was admitted. The patient is on IV fluids for acute kidney injury. Urine output is adequate. The patient has Chung catheter. There is no evidenc e of hematuria. Review of Systems: Unobtainable. The patient is arousable, although he cannot provide review of systems. Physical Examination: Lungs: Clear to auscultation bilaterally. Heart: S1, S2. Abdomen: Soft. Extremities: Minimal edema. Impression And Plan: Encephalopathy, altered mental status. Workup is conducted by primary team. Errol mckeon to monitor electrolytes. The patient was found to have elevated lactic acid level, although total CO2 was 25, chloride 102, sodium 133. There is mild hyponatremia. Plan is to continue to stephan tor glucose level and there was associated hyperglycemia which corresponds to hyponatremia related to hyperglycemic state. CT scan of the abdomen and pelvis was ordered to rule out obstructive uropathy. Renal ultrasound was done. There is no hydronephrosis. A UA was done to rule out evidence of nephritis. Continue to monitor protein-creatinine ratio to evaluate for possible proteinuria. Acute kidney inju ry overall improving with IV hydration. Hypotensive episodes in setting of oversedation. Recommendation from primary team. GILBERT/MODL Voice ID: [id number] Report ID: [id number]
[2023-11-22] MEDS: HYDROMORPHONE HCL 1 MG/ML INJ ONE (21:51)
[2023-11-22] MEDS: HYDROMORPHONE HCL 1 MG/ML INJ IV PRN (21:55)
--- NOTE | 2023-11-23 06:31 | P.PN ---
Date of Service: 11/23/23 Subjective: Continues in delusional state, seems to try to communicate Reduced restraints to bilateral wrist Continue monitoring and providing safety with a sitter ROS: 10 point ROS as noted above, otherwise negative Physical exam GEN: disoriented, delirium, speech slurred, agitated, hollering HEENT: Normal conjunctiva, sclera anicteric CV: Regular rate and rhythm, S1-S2 present, no murmur noted Pulm: Nonlabored respirations on room air ABD: Soft and benign on palpation, nontender, distended (obese) MSK: No joint tenderness, 2+ peripheral pulses Integumentary: Erythema/scabbing noted to right santoro Neuro: Groans with verbal or physical stimulation, moves all four extremities Vitals reviewed Assessment Rule out sepsis-ruled out Pulmonary edema Delusional/delirium Acute metabolic encephalopathy Hypertension DM with hyperglycemia Status post CABG History of diastolic CHF Plan Rule out sepsis- ruled out Pulmonary edema Delusional/delirium -WBC within normal limits, afebrile -No source of infection identified thus far -CRP, lactate elevated, repeat lactate less than 2 -Blood cultures with no growth in 24 hours, afebrile, abx discontinued -Chest xray 11/22/23 "Moderate bilateral pulmonary opacities are present most compatible with pulmonary edema. Findings appear mildly progressive since comparative study. The heart is moderately enlarged. Sternotomy wires are present. IMPRESSION: Mild worsening in lung aeration seen since 11/20/2023 study." -Lasix x1 -Restraints applied, bilateral wrists 11/23/2023 Acute metabolic encephalopathy -History of toxic metabolic encephalopathy secondary to medication disease -Patient with prescription for Valium filled on 11/12 30 tablets once daily as needed -Only 19 pills in the bottle, approximately 5 tablets unaccounted for - was concerned he may have been taking extra Valium at home -Hold oral medications for now, resume appropriate medications when patient is more alert -MRI unable to obtain, CT head results pending -continue to limit sedation, restart home meds when he can tolerate PO -US abdomen reports "The gallbladder demonstrates no gallstones. Small amount of sludge is possible. No pericholecystic fluid or gallbladder wall thickening. The common bile duct is normal measuring 3 mm. The liver demonstrates no findings of intrahepatic biliary dilatation. IMPRESSION: Unremarkable examination." DM with hyperglycemia -ACHS Accu-Chek, sliding scale insulin Hypertension Status post CABG History of diastolic CHF -Continue home medications when patient can follow commands VTE: Lovenox Code: Full Dispo: 48 hours
[2023-11-23 06:37] LABS: Hematocrit 32.7 % (39.6-49.0); Hemoglobin 10.3 g/dL (13.6-17.9); MCH 26.9 pg (27.0-35.0); MCHC 31.6 g/dL (32.0-36.0); MCV 85.1 fL (80-100); MPV 7.3 fL (7.6-11.3); Platelets 244 thou/uL (152-406); RBC Red Blood Cell Count 3.84 M/uL (4.33-5.43); Red Cell Distribution Width 17.5 % (12.1-15.2)
[2023-11-23 06:53] LABS: Anion Gap 7.4 mEq/L (5.0-15.0); Potassium 5.4 mEq/L (3.5-5.1)
[2023-11-23] MEDS: FUROSEMIDE 40 MG/4 ML VIAL IV ONE (10:25)
[2023-11-23 18:31] LABS: Specific Gravity 1.009 (1.005-1.030); Sqamous Epithelial None Seen /HPF (None Seen); Urine Bacteria None Seen /HPF (<20); Urine Bilirubin NEGATIVE (Negative); Urine Blood Trace (Negative); Urine Clarity Turbid (Clear); Urine Color Colorless (Yellow); Urine Crystals Unidentified Few /HPF (None Seen); Urine Culture Reflex Order NOT NEEDED; Urine Glucose 2+ (Negative); Urine Ketones 1+ (Negative); Urine Microscopic Reflex YN ORDER UMIC; Urine Mucus Slight /HPF (None Seen); Urine Nitrite NEGATIVE (Negative); Urine Protein NEGATIVE (Negative); Urine Urobilinogen Normal (Normal); Urine WBC <5 /HPF (<5); Urine Yeast (Budding) Trace /HPF (None Seen)
[2023-11-23 20:09] LABS: KAPPA LC FREE UR 158.66 mg/L (<=32.90); LAMBDA LC FREE UR 35.26 mg/L (<=3.79)
--- NOTE | 2023-11-23 21:33 | RAD REPORT ---
EXAM DESCRIPTION: CT - Head Brain Wo Cont - 11/23/2023 3:35 pm CLINICAL HISTORY: change in mental status COMPARISON: Head Brain Wo Cont dated 09/09/2023; Facial Bones W/ Mpr dated 11/30/2020 TECHNIQUE: Noncontrast head CT images were obtained without IV contrast. Multiplanar reformats were generated and reviewed. All CT scans are performed using dose optimization technique as appropriate and may include automated exposure control or mA/KV adjustment according to patient size. FINDINGS: No intracranial hemorrhage, mass, or edema. Midline structures are unremarkable. Normal ventricular caliber for age. Alvarado-white matter differentiation is preserved, without evidence of acute infarct. No abnormal extra- axial fluid collections. Mastoid air cells and visualized portions of the paranasal sinuses are clear. No acute bony findings. IMPRESSION: No evidence of an acute intracranial process.
--- NOTE | 2023-11-24 05:23 | PN ---
Date of Progress Note: 11/23/2023 Subjective: The patient was admitted to the hospital with acute kidney injury and encephalopathy with changing in mental status secondary to overdose. Questionable serotonin syndrome. Patient was started on hydration. Kidney function continued to decline. Patient still altered mental status. Objective: Vital Signs: Blood pressure 157/67, pulse 114. Afebrile. Chest: Crackles, bilateral. Heart: S1, S2. Systolic murmur. Tachycardic. Abdomen: Soft, nontender. Extremity: Trace edema. Neurologic: Sleepy, combative. No focality. Moving 4 extremities. Laboratory Data: Sodium 136, potassium 5.4, bicarb 28, BUN 20, creatinine 1.3, glucose 343, calcium 9.5. WBC 11.3, hemoglobin 10.3. Urinalysis negative for infection. Current Medications: The patient on include Plavix, Lovenox, ferrous sulfate, atorvastatin, carvedilol 12.5, Tylenol, diazepam, insulin, IV fluid. Assessment And Plan: 1. Acute kidney injury secondary to poor perfusion ATN, given the altered mental status, rhabdo has been ruled out. The patient looked to me on the overvolume side. I am going to give another dose of Lasix and we will monitor. 2. Hypertension, controlled, optimal. Continue current treatment. 3. Hyponatremia secondary to poor intake. We will diurese the patient today. 4. Altered mental status, unknown, possible secondary to serotonin syndrome. Follow up with the Primary. 5. Hyperkalemia. We will diurese the patient today. I will repeat CK and TSH, and we will follow up the patient. Time spent examining the patient [id number] reviewing data lab and the radiology placing orders and discussing the case with the patient discussing the case with the assembler steam and gas turbine including hospitalist and nursing staff more than 55 minutes CECELIA Voice ID: [id number] Report ID: [id number] SASCHA
--- NOTE | 2023-11-24 06:43 | P.PN ---
Date of Service: 11/24/23 Subjective: Continues to holler, no purposeful movement or conversation stopped more home medications CT Head 11/22 neg, now with weakness to left arm and inabiltiy to control sputum consulted Neurology for further recommendations Cannot swallow p.o. medications ROS: 10 point ROS as noted above, otherwise negative Physical exam GEN: delirium, agitated, hollering HEENT: Normal conjunctiva, sclera anicteric CV: Sinus tachycardic (118), S1-S2 present, no murmur noted Pulm: Nonlabored respirations on 2 LNC ABD: Soft and benign on palpation, nontender, distended (obese) MSK: No joint tenderness, weakness to left arm, 2+ peripheral pulses Integumentary: Erythema/scabbing noted to right santoro Neuro: Groans with verbal or physical stimulation, moves right arm and bilateral legs Vitals reviewed Assessment Rule out sepsis-ruled out Pulmonary edema Delusional/delirium Acute metabolic encephalopathy Hypertension DM with hyperglycemia Status post CABG History of diastolic CHF Plan Rule out sepsis- ruled out Pulmonary edema Delusional/delirium Hypertensive, tachycardic -WBC within normal limits, afebrile -No source of infection identified thus far -CRP, lactate elevated, repeat lactate less than 2 -Blood cultures with no growth in 24 hours, afebrile, abx discontinued -Chest xray 11/22/23 "Moderate bilateral pulmonary opacities are present most compatible with pulmonary edema. Findings appear mildly progressive since comparative study. The heart is moderately enlarged. Sternotomy wires are present. IMPRESSION: Mild worsening in lung aeration seen since 11/20/2023 study." -Lasix [address] Lund -Restraints applied, bilateral wrists 11/23/2023 -urinary catheter removed, straight catheter with 600 ml out. -Lopressor IV as needed Hyperphosphatemia/hyperkalemia Elevated anion gap -Dr. 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 Midline structures are unremarkable. Normal ventricular caliber for age. Alvarado-white matter differentiation is preserved, without evidence of acute infarct. No abnormal extra-axial fluid collections. Mastoid air cells and visualized portions of the paranasal sinuses are clear. No acute bony findings. IMPRESSION: No evidence of an acute intracranial process." -continue to limit sedation, restart home meds when he can tolerate PO -US abdomen reports "The gallbladder demonstrates no gallstones. Small amount of sludge is possible. No pericholecystic fluid or gallbladder wall thickening. The common bile duct is normal measuring 3 mm. The liver demonstrates no findings of intrahepatic biliary dilatation. IMPRESSION: Unremarkable examination." -Neurology consult -Stopped all home psychiatric medication DM with hyperglycemia -ACHS Accu-Chek, sliding scale insulin - Hypertension Status post CABG History of diastolic CHF -Continue home medications when patient can follow commands VTE: Lovenox Code: Full Dispo: 48 hours
[2023-11-24 07:25] LABS: Hematocrit 32.2 % (39.6-49.0); MCH 26.8 pg (27.0-35.0); MCHC 30.9 g/dL (32.0-36.0); MCV 86.9 fL (80-100); MPV 7.8 fL (7.6-11.3); Platelets 237 thou/uL (152-406); RBC Red Blood Cell Count 3.71 M/uL (4.33-5.43); Red Cell Distribution Width 17.5 % (12.1-15.2)
--- NOTE | 2023-11-24 07:33 | RAD REPORT ---
EXAM DESCRIPTION: US - Urinary Bladder - 11/24/2023 5:15 am CLINICAL HISTORY: retention Pelvic pain COMPARISON: No comparisons TECHNIQUE: Real-time sonographic evaluation of the urinary bladder with pre and postvoid volume mila urements was performed. FINDINGS: There is no evidence of bladder mass or ureterocele. Prevoid bladder volume 153 mL. The pa tient was unable to empty bladder due to being restrained.
[2023-11-24 07:52] LABS: Albumin 3.2 g/dL (3.4-5.0); Anion Gap 15.3 mEq/L (5.0-15.0); Phosphorus 5.5 mg/dL (2.5-4.9); Potassium 5.3 mEq/L (3.5-5.1); Uric Acid 9.2 mg/dL (3.5-7.2)
[2023-11-24 10:37] LABS: Bilirubin Direct 0.2 mg/dL (0-0.2); Bilirubin Indirect, Calculated 0.6 mg/dL (0.2-0.8); Bilirubin Total 0.8 mg/dL (0.2-1.0)
[2023-11-24] MEDS: HYDROMORPHONE HCL 1 MG/ML INJ IV ONE (13:13)
--- NOTE | 2023-11-24 14:25 | RAD REPORT ---
EXAM DESCRIPTION: CT - Head Brain Wo Cont - 11/24/2023 1:39 pm CLINICAL HISTORY: left sided weakness COMPARISON: Head Brain Wo Cont dated 11/23/2023; Head Brain Wo Cont dated 09/09/2023 TECHNIQUE: Noncontrast head CT images were obtained without IV contrast. Multiplanar reformats were generated and reviewed. All CT scans are performed using dose optimization technique as appropriate and may include automated exposure control or mA/KV adjustment according to patient size. FINDINGS: No intracranial hemorrhage, mass, or edema. Midline structures are unremarkable. Normal ventricular caliber for age. Alvarado-white matter differentiation is preserved, without evidence of acute infarct. No abnormal extra- axial fluid collections. Mastoid air cells and visualized portions of the paranasal sinuses are clear. No acute bony findings. IMPRESSION: No evidence of an acute intracranial process.
[2023-11-24] MEDS ORDERED: METOPROLOL TARTRATE 5 MG/5 ML INJ IV PRN (16:55)
--- NOTE | 2023-11-24 16:59 | PN ---
Date of Progress Note: 11/24/2023 Subjective: Patient was admitted with altered mental status, acute kidney injury. Yesterday, patient was a little bit on the overvolume side. Patient received single dose of Lasix. Kidney function continued to decline. Patient with still altered mental status. Objective: Vital Signs: Blood pressure 133/60, pulse of 121, afebrile. Chest: Clear to auscultation. Heart: S1, S2. Systolic murmur. Abdomen: Soft, nontender. Extremity: No edema. Laboratory Data: For the patient, WBC 10, hemoglobin 10, sodium 139, potassium 5.3, bicarb 21, BUN 31, creatinine 1.6, trending up. GFR of 48. Blood sugar still elevated. Calcium 9.2, phosphorus 5.5. Current Medications: The patient on include Plavix, aspirin, Lovenox, carvedilol 12.5, Lexapro, trazodone. Lasix received yesterday. Assessment And Plan: 1. Acute kidney injury secondary to prerenal with the altered mental status. There is no significant thrombocytopenia. No obstructive uropathy. Continue hydration. I am going to go ahead and send for full serology and we will send for LDH to rule out any other disease and we will follow up. 2. Hypertension, controlled. Continue current treatment. 3. Marginal hyperkalemia. Continue hydration. I am going to start the patient on IV fluid 4. Altered mental status, as by Primary. We will follow up with Neurology. Time spent examining the patient [id number] reviewing data lab and the radiology placing orders and discussing the case with the patient discussing the case with the team cdl driver including hospitalist and nursing staff more than 55 minutes CECELIA Voice ID: [id number] Report ID: [id number] SASCHA
[2023-11-24 17:16] LABS: Arterial Blood Carboxyhemoglob 1.8 % (0-1.5); Blood Gas Oxyhemoglobin 93.5 % (94-97); Blood Gas THB 9.5 g/dl (12-18); Blood O2 Saturation 96.1 % (92-98.5)
[2023-11-24] MEDS: HALOPERIDOL LACT 5 MG/ML INJ IV PRN (21:10)
[2023-11-25] MEDS: HYDROMORPHONE HCL 1 MG/ML INJ IV PRN (00:18)
[2023-11-25 06:36] LABS: Hematocrit 30.2 % (39.6-49.0); Hemoglobin 9.5 g/dL (13.6-17.9); MCH 26.7 pg (27.0-35.0); MCHC 31.4 g/dL (32.0-36.0); MCV 85.2 fL (80-100); MPV 7.7 fL (7.6-11.3); Platelets 237 thou/uL (152-406); RBC Red Blood Cell Count 3.54 M/uL (4.33-5.43); Red Cell Distribution Width 16.9 % (12.1-15.2)
[2023-11-25 07:07] LABS: Platelet Estimate ADEQ; White Blood Cell Scan OK (OK)
[2023-11-25 07:08] LABS: Anisocytosis 1+; Blood Morphology Comment NOTED (NOT SEEN)
--- NOTE | 2023-11-25 07:30 | P.PN ---
Patient seen and examined with Ms. Larsen. Plan of care discussed with Ms. Larsen. Patient seems to be more responsive today He is still agitated but frequency and intensity has decreased. Patient evaluated by psychiatry Waqas agee and recommended. Continue neurochecks Supportive measures. <adam miller - Last Filed: 11/25/23 17:52> Date of Service: 11/25/23 Subjective: Continues to holler, but making more eye contact and answering yes to every question Seems to have less agitation today Spoke with his , Jill, gave her an update concerning his mental status. Dr. Gallardo visited today and gave recommendations. ROS: 10 point ROS as noted above, otherwise negative Physical exam GEN: Awake, hollering, delusional, making eye contact HEENT: Normal conjunctiva, sclera anicteric CV: Sinus tachycardic (106), normal S1-S2 present, no murmur noted Pulm: Nonlabored respirations on 2 LNC, symmetrical chest wall movement ABD: Soft and benign on palpation, nontender, distended (obese) MSK: No joint tenderness, weakness to left arm, 2+ peripheral pulses Integumentary: Erythema/scabbing noted to right santoro Neuro: Making eye contact, answering questions purposefully Vitals reviewed Assessment Rule out sepsis-ruled out Pulmonary edema Delusional/delirium Hypertensive, tachycardic erythema to left lower etremtity Urinary retention Hyperphosphatemia/hyperkalemia Elevated anion gap Acute metabolic encephalopathy Hypertension DM with hyperglycemia Status post CABG History of diastolic CHF Plan Rule out sepsis- ruled out Pulmonary edema Hypertensive, tachycardic Erythema to left lower etremtity -WBC 12.2, afebrile -Started Rocephin BID -No source of infection identified thus far -CRP recheck in the AM -Blood cultures with no growth in 24 hours, afebrile, abx discontinued -Chest xray 11/22/23 "Moderate bilateral pulmonary opacities are present most compatible with pulmonary edema. Findings appear mildly progressive since comparative study. The heart is moderately enlarged. Sternotomy wires are present. 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 Midline structures are unremarkable. Normal ventricular caliber for age. Alvarado-white matter differentiation is preserved, without evidence of acute infarct. No abnormal extra-axial fluid collections. Mastoid air cells and visualized portions of the paranasal sinuses are clear. No acute bony findings. IMPRESSION: No evidence of an acute intracranial process." -continue to limit sedation, restart home meds when he can tolerate PO -US abdomen reports "The gallbladder demonstrates no gallstones. Small amount of sludge is possible. No pericholecystic fluid or gallbladder wall thickening. The common bile duct is normal measuring 3 mm. The liver demonstrates no findings of intrahepatic biliary dilatation. IMPRESSION: Unremarkable examination." -Neurology consult --Dr. Espinal, and Dr. Gallardo consulted -Stopped all home psychiatric medication Urinary retention -Bladder scan with straight cath when >500 -Flomax when able to take PO medications Hyperphosphatemia/hyperkalemia Elevated anion gap -Dr. Lund consulted -Random Urine study complete -potassium 4.8, phosphorus 4.0 DM with hyperglycemia -ACHS Accu-Chek, sliding scale insulin -Glucose 399 Hypertension Status post CABG History of diastolic CHF -Continue home medications when patient can follow commands VTE: Lovenox Code: Full Dispo: 48 hours <Odalys Larsen - Last Filed: 11/25/23 18:41>
[2023-11-25 07:34] LABS: Albumin 3.1 g/dL (3.4-5.0); Anion Gap 16.8 mEq/L (5.0-15.0); Potassium 4.8 mEq/L (3.5-5.1)
[2023-11-25] MEDS: CEFTRIAXONE 1000 MG/VIAL ONE (09:48)
[2023-11-25] MEDS: CEFTRIAXONE 1,000 MG in NA CHLORIDE 0.9% 50 ML IVPB SCH (10:05)
[2023-11-25] MEDS: NA CHLORIDE 0.9% 50 ML ONE (10:15)
[2023-11-25] MEDS: OLANZapine 2.5 MG TAB PO ONE (15:39)
[2023-11-25] MEDS ORDERED: ALBUTEROL 2.5 MG/3 ML NEB SOL NEB PRN (17:02)
[2023-11-25] MEDS: QUETIAPINE 25 MG TAB PO SCH (20:42)
[2023-11-25] MEDS: OLANZapine 2.5 MG TAB PO SCH (20:49)
[2023-11-25] MEDS ORDERED: CEFTRIAXONE 1,000 MG in NA CHLORIDE 0.9% 50 ML IVPB SCH (21:00)
[2023-11-25] MEDS ORDERED: DEXMEDETOMIDINE HCL 200 MCG in NA CHLORIDE 0.9% 98 ML IV SCH (21:00)
--- NOTE | 2023-11-25 21:56 | PN ---
Date of Progress Note: 11/25/2023 Chief Complaint: Acute kidney injury, altered mental status. The patient cannot provide review of systems. Subjective: The patient developed fluid overload, received 1 dose of Lasix. Renal function continue d to decline. The patient has encephalopathy, likely the patient has underlying dementia. Review of Systems: Unobtainable. Physical Examination: Lungs: Clear to auscultation bilaterally. Heart: S1, S2. Abdomen: Soft. Extremities: No edema. Impression And Plan: 1.Acute kidney injury secondary to prerenal azotemia. The patient has altered mental status. There is no significant thrombocytopenia. No obstructive uropathy. Continue hydration. The patient may need percutaneous endoscopic gastrostomy placement for nutrition. The patient cannot tolerate p.o. i ntake. 2.Hypertension, controlled. Continue current treatment. 3.Mild hyperkalemia. Continue hydration. Monitor bladder scan to rule out urinary retention. 4.Altered mental status, per Primary team. GILBERT/NAVEEN Voice ID: [id number] Report ID: [id number]
[2023-11-25] MEDS: DEXMEDETOMIDINE HCL 200 MCG in NA CHLORIDE 0.9% 98 ML IV SCH (22:25)
--- NOTE | 2023-11-25 22:45 | RAD REPORT ---
EXAM DESCRIPTION: RADChest Single View11/25/2023 2:51 pm CLINICAL HISTORY: productive cough, increased WBC COMPARISON: Chest Single View dated 11/22/2023; Chest Single View dated 11/20/2023; Chest Single View d ated 10/20/2023; Chest Single View dated 09/09/2023; Chest Abdomen Pelvis W Cont dated 11/20/2023 TECHNIQUE: Portable AP view of the chest. FINDINGS: Stable central interstitial prominence and cardiomegaly. No new focal airspace opacity. N o pneumothorax or effusion. The mediastinal contours are unchanged, with sequelae of median sternotom y and probable CABG. IMPRESSION: Stable findings as above, suggestive of CHF.
[2023-11-26 05:13] LABS: Absolute Basophils 0.1 K/uL (0-0.5); Absolute Eosinophils 0.4 K/uL (0-0.5); Absolute Lymphocytes (CBC) 1.5 K/uL (0.7-4.9); Absolute Monocytes 0.6 K/uL (0.1-1.3); Basophils % 1.1 % (0-1.3); Hematocrit 28.2 % (39.6-49.0); Hemoglobin 9.1 g/dL (13.6-17.9); Lymphocytes % 26.3 % (15.3-44.8); MCH 26.9 pg (27.0-35.0); MCHC 32.4 g/dL (32.0-36.0); MCV 82.9 fL (80-100); MPV 7.8 fL (7.6-11.3); Monocytes % 10.4 % (3.3-12.3); Neutrophils % 55.2 % (41.7-73.7); Platelets 234 thou/uL (152-406); RBC Red Blood Cell Count 3.41 M/uL (4.33-5.43); Red Cell Distribution Width 17.1 % (12.1-15.2)
[2023-11-26 05:35] LABS: Albumin 2.6 g/dL (3.4-5.0); Anion Gap 9.3 mEq/L (5.0-15.0); Magnesium 1.9 mg/dL (1.6-2.4); Phosphorus 2.2 mg/dL (2.5-4.9); Potassium 3.3 mEq/L (3.5-5.1)
[2023-11-26 10:50] LABS: Rheumatoid Factor NEG (NEG)
[2023-11-26] MEDS: KCL 20 MEQ/100 mL IVPB 20 MEQ/100 ML BAG IV SCH ×2 (11:07→19:12)
[2023-11-26] MEDS: POTASSIUM PHOS IN 0.9 % NACL 15 MMOL/250 ML BAG IV ONE (11:09)
[2023-11-26] MEDS ORDERED: GLUCERNA 1.5 CAL 1,000 ML BOT FT SCH (12:00)
--- NOTE | 2023-11-26 12:07 | P.PN ---
Date of Service: 11/26/23 Subjective: Transfer to ICU for precedex gtt, will attempt MRI today NG tube and MRI was not tolerated PPN started Conversation with 2-day, updated on his condition. ROS: 10 point ROS as noted above, otherwise negative Physical exam GEN: Sleeping HEENT: Normal conjunctiva, sclera anicteric CV: Sinus bradycardia, normal S1-S2 present, no murmur noted Pulm: Nonlabored respirations on 2 LNC, symmetrical chest wall movement, crackles to bilateral lung bae ABD: Soft and benign on palpation, nontender, distended (obese) MSK: No joint tenderness, weakness to left arm, 2+ peripheral pulses Integumentary: Erythema/scabbing noted to right santoro Neuro: Making eye contact, answering questions purposefully Vitals reviewed Assessment Rule out sepsis-ruled out Pulmonary edema Delusional/delirium Hypertensive, tachycardic erythema to left lower etremtity Urinary retention Hyperphosphatemia/hyperkalemia Elevated anion gap Acute metabolic encephalopathy Hypertension DM with hyperglycemia Status post CABG History of diastolic CHF Plan Rule out sepsis- ruled out Pulmonary edema Hypertensive, tachycardic Erythema to left lower etremtity -WBC 5.5, afebrile -Started Rocephin BID -No source of infection identified thus far -CRP recheck in the AM -Blood cultures with no growth in 24 hours, afebrile, abx discontinued -Chest xray 11/22/23 "Moderate bilateral pulmonary opacities are present most compatible with pulmonary edema. Findings appear mildly progressive since comparative study. The heart is moderately enlarged. Sternotomy wires are present. 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 Midline structures are unremarkable. Normal ventricular caliber for age. Alvarado-white matter differentiation is preserved, without evidence of acute infarct. No abnormal extra-axial fluid collections. Mastoid air cells and visualized portions of the paranasal sinuses are clear. No acute bony findings. IMPRESSION: No evidence of an acute intracranial process." -continue to limit sedation, restart home meds when he can tolerate PO -US abdomen reports "The gallbladder demonstrates no gallstones. Small amount of sludge is possible. No pericholecystic fluid or gallbladder wall thickening. The common bile duct is normal measuring 3 mm. The liver demonstrates no findings of intrahepatic biliary dilatation. IMPRESSION: Unremarkable examination." -Neurology consult --Dr. Espinal, and Dr. Gallardo consulted -Stopped all home psychiatric medication -On Precedex drip in ICU -PPN started Urinary retention -Bladder scan with straight cath when >500 -Flomax when able to take PO medications Hyperphosphatemia/hyperkalemia Elevated anion gap -Dr. Lund consulted -Random Urine study complete -potassium 4.8, phosphorus 4.0 DM with hyperglycemia -ACHS Accu-Chek, sliding scale insulin -Glucose 270 Hypertension Status post CABG History of diastolic CHF -Continue home medications when patient can follow commands VTE: Lovenox Code: Full Dispo: 48 hours
[2023-11-26] MEDS: DEXMEDETOMIDINE HCL 1,000 MCG in NA CHLORIDE 0.9% 490 ML IV SCH (12:34)
[2023-11-26] MEDS ORDERED: AA 5%/D20W/ELECTROLYTES-TPN 2,000 ML, Lipids 20% 250 ML with MULTIVITAMINS INJ 10 ML IV SCH (17:00)
[2023-11-26 17:18] LABS: Arterial Blood Carboxyhemoglob 1.8 % (0-1.5); Blood Gas Oxyhemoglobin 94.3 % (94-97); Blood Gas THB 9.6 g/dl (12-18)
[2023-11-26] MEDS: AA 4.25 %/D5W/ELECTROLYTES 2,000 ML, Lipids 20% 250 ML with MULTIVITAMINS INJ 10 ML IV SCH (19:12)
[2023-11-26] MEDS: IPRATROPIUM BROM 0.5MG/2.5ML NEB SCH (19:47)
[2023-11-26] MEDS ORDERED: D50W 25 GM/50 ML SYRINGE IV PRN (22:04)
[2023-11-26] MEDS ORDERED: GLUCAGON 1 MG/VIAL IM PRN (22:04)
[2023-11-26] MEDS ORDERED: D10W 125 ML IV PRN (22:11)
[2023-11-26] MEDS: INSULIN REGULAR (HUMAN) 100 UNIT/ML SQ SCH (23:46)
--- NOTE | 2023-11-27 02:29 | PN ---
Date of Progress Note: 11/26/2023 Chief Complaint: Acute kidney injury, altered mental status. Subjective: The patient was transferred to ICU for altered mental status. The patient has severe en cephalopathy, likely the patient has underlying dementia. Review of Systems: Unobtainable. The patient is lethargic, hemodynamically stable. Physical Examination: Lungs: Clear to auscultation bilaterally. Heart: S1, S2. Abdomen: Soft. Extremities: No edema. Impression And Plan: 1.Acute kidney injury secondary to prerenal azotemia. The patient has altered mental status. There is no significant thrombocytopenia. No obstructive uropathy. Continue hydration. Monitor urine ou tput. 2.Hypertension, controlled. Continue current treatment. 3.Mild hyperkalemia, resolved. 4.Altered mental status: Per Primary team. EB/MODL Voice ID: [id number] Report ID: [id number]
[2023-11-27 04:56] LABS: Absolute Eosinophils 0.4 K/uL (0-0.5); Absolute Lymphocytes (CBC) 1.1 K/uL (0.7-4.9); Absolute Monocytes 0.5 K/uL (0.1-1.3); Absolute Neutrophil 3.4 K/uL (1.8-8.0); Basophils % 0.9 % (0-1.3); Eosinophils % 6.7 % (0-4.4); Hematocrit 29.5 % (39.6-49.0); Hemoglobin 9.5 g/dL (13.6-17.9); Lymphocytes % 19.6 % (15.3-44.8); MCH 26.3 pg (27.0-35.0); MCHC 32.1 g/dL (32.0-36.0); MCV 81.9 fL (80-100); Monocytes % 9.2 % (3.3-12.3); Neutrophils % 63.6 % (41.7-73.7); Platelets 229 thou/uL (152-406); Red Cell Distribution Width 17.4 % (12.1-15.2)
[2023-11-27 05:12] LABS: Albumin 2.5 g/dL (3.4-5.0); Anion Gap 9.7 mEq/L (5.0-15.0); Magnesium 1.8 mg/dL (1.6-2.4); Phosphorus 2.7 mg/dL (2.5-4.9); Potassium 3.7 mEq/L (3.5-5.1)
[2023-11-27] MEDS: MAGNESIUM SULFATE 1 gm IVPB 1 GM/100 ML BAG IV ONE (05:34)
[2023-11-27] MEDS: KCL 20 MEQ/100 mL IVPB 20 MEQ/100 ML BAG IV ONE (05:34)
--- NOTE | 2023-11-27 06:53 | P.PN ---
Patient seen and examined. Plan of care discussed with Ms. Larsen. Patient remain altered and intermittently agitated. Agitation is controlled in the Precedex drip. According to report he developed cardiac pause during an attempt to insert an NG tube. He has bradycardia. Acute metabolic encephalopathy Suspected benzodiazepine overdose. Prolonged altered mental status. Plan: Obtain MRI of the brain to rule out acute CVA. No evidence of sepsis. Blood cultures have yielded no growth Urinalysis-no significant evidence of UTI Urine toxicology screen is positive for benzodiazepines and opioids. Continue Precedex drip today, and wean/d/c tomorrow to reassess mental status. Continue telemetry Neurochecks. Aspirin and Plavix if possible. Start TPN. Aggressive blood sugar control <adam miller - Last Filed: 11/27/23 17:35> Date of Service: 11/27/23 Subjective: Sleeping On room air tachypnic, ABG was good yesterday ROS: 10 point ROS as noted above, otherwise negative Physical exam GEN: Sleeping, mild agitation HEENT: Normal conjunctiva, sclera anicteric CV: Sinus bradycardia, S1-S2 present, no murmur noted Pulm: Nonlabored respirations on RA, Tachypnic, symmetrical chest wall movement, crackles to bilateral lung bae ABD: Soft and benign, active Bowel sounds, NT, distended (obese) MSK: No joint tenderness, weakness to left arm, 2+ peripheral pulses Integumentary: Erythema/scabbing noted to right santoro Neuro: Making eye contact, answering questions purposefully Vitals reviewed Assessment Rule out sepsis-ruled out Pulmonary edema Delusional/delirium Hypertensive, tachycardic erythema to left lower etremtity Pneumonia/aspiration pneumonitis Urinary retention Hyperphosphatemia/hyperkalemia Elevated anion gap Acute metabolic encephalopathy Hypertension DM with hyperglycemia Status post CABG History of diastolic CHF Plan Rule out sepsis- ruled out Pulmonary edema Hypertensive, tachycardic Erythema to left lower etremtity Pneumonia/aspiration pneumonitis -WBC 5.4, afebrile -Started Rocephin BID -No source of infection identified thus far -CRP recheck in the AM -Blood cultures with no growth in 24 hours, afebrile, abx discontinued -Chest xray 11/22/23 "Moderate bilateral pulmonary opacities are present most compatible with pulmonary edema. Findings appear mildly progressive since comparative study. The heart is moderately enlarged. Sternotomy wires are present. IMPRESSION: Mild worsening in lung aeration seen since 11/20/2023 study." -11/26 chest x-ray report ": Mild worsening in left and no significant change in right pulmonary opacities. 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 Midline structures are unremarkable. Normal ventricular caliber for age. Alvarado-white matter differentiation is preserved, without evidence of acute infarct. No abnormal extra-axial fluid collections. Mastoid air cells and visualized portions of the paranasal sinuses are clear. No acute bony findings. IMPRESSION: No evidence of an acute intracranial process." -continue to limit sedation, restart home meds when he can tolerate PO -US abdomen reports "The gallbladder demonstrates no gallstones. Small amount of sludge is possible. No pericholecystic fluid or gallbladder wall thickening. The common bile duct is normal measuring 3 mm. The liver demonstrates no findings of intrahepatic biliary dilatation. IMPRESSION: Unremarkable examination." -Dr. Espinal, and Dr. Gallardo consulted-Zyprexa recommended -Stopped all home psychiatric medication -On Precedex drip in ICU, will attempt to wean tomorrow 616 -did not tolerate NG tube placement, PPN started Urinary retention -Chung catheter in place, UOP 1700 -Flomax when able to take PO medications Hyperphosphatemia/hyperkalemia Elevated anion gap -Dr. Lund consulted -Random Urine study complete -potassium 3.7, phosphorus 2.7 DM with hyperglycemia -ACHS Accu-Chek, sliding scale insulin -Glucose 327 Hypertension Status post CABG History of diastolic CHF -Continue home medications when patient can follow commands VTE: Lovenox Code: Full Dispo: when medically cleared <Odalys Larsen - Last Filed: 11/27/23 18:14>
[2023-11-27] MEDS: INSULIN GLARGINE 100 UNIT/ML SQ SCH (09:28)
--- NOTE | 2023-11-27 13:36 | RAD REPORT ---
EXAM DESCRIPTION: [place] Single View11/27/2023 1:07 pm CLINICAL HISTORY: Chest pain COMPARISON: November 25, 2023 FINDINGS: Mild worsening diffuse left lung opacities No significant change right lung opacities Cardiomegaly IMPRESSION: Mild worsening in left and no significant change in right pulmonary opacities. This coul d represent pneumonia or aspiration pneumonitis
--- NOTE | 2023-11-27 15:42 | P.PN ---
Subjective Date of Service: 11/27/23 Chief Complaint: Confusion Subjective: No new changes Physical Examination - Vital Signs Temperature: 97.0 F Blood Pressure: 154/71 Pulse: 66 Respirations: 21 Pulse Ox (%): 96 - Physical Exam General: Other (appears as his stated age.) HEENT: Atraumatic, Normocephalic Neck: Supple Respiratory: Other (symmetric chest expansion) Cardiovascular: No rubs, No murmurs Gastrointestinal: Soft and benign Musculoskeletal: No clubbing Integumentary: No cyanosis Neurological: Normal tone Urinary: Other (No bladder distention) External genitalia: Deferred Rectal: Deferred Assessment And Plan - Plan 1. Acute kidney injury secondary to prerenal azotemia. The patient has altered mental status. There is no significant thrombocytopenia. No obstructive uropathy. Continue hydration via PPN. Cont ward. Monitor urine output. 2. Hypertension, controlled. Continue current treatment. 3. Mild hyperkalemia, resolved. 4. Altered mental status: Per Primary team.
[2023-11-27] MEDS: AA 4.25 %/D5W/ELECTROLYTES 2,000 ML IV SCH (17:37)
[2023-11-28 04:56] LABS: Absolute Basophils 0.1 K/uL (0-0.5); Absolute Eosinophils 0.4 K/uL (0-0.5); Absolute Monocytes 0.5 K/uL (0.1-1.3); Absolute Neutrophil 4.4 K/uL (1.8-8.0); Basophils % 0.8 % (0-1.3); Eosinophils % 5.7 % (0-4.4); Hematocrit 28.6 % (39.6-49.0); Hemoglobin 9.5 g/dL (13.6-17.9); Lymphocytes % 15.7 % (15.3-44.8); MCHC 33.2 g/dL (32.0-36.0); MCV 81.3 fL (80-100); MPV 7.7 fL (7.6-11.3); Neutrophils % 69.8 % (41.7-73.7); Nucleated Red Blood Cells % 0.2 % (0-0); Platelets 253 thou/uL (152-406); RBC Red Blood Cell Count 3.52 M/uL (4.33-5.43); Red Cell Distribution Width 16.9 % (12.1-15.2)
[2023-11-28 05:09] LABS: Albumin 2.5 g/dL (3.4-5.0); Anion Gap 9.5 mEq/L (5.0-15.0); Magnesium 1.8 mg/dL (1.6-2.4); Phosphorus 3.4 mg/dL (2.5-4.9); Potassium 3.5 mEq/L (3.5-5.1)
[2023-11-28] MEDS: KCL 20 MEQ/100 mL IVPB 20 MEQ/100 ML BAG IV ONE (06:05)
[2023-11-28] MEDS: MAGNESIUM SULFATE 1 gm IVPB 1 GM/100 ML BAG IV ONE (06:05)
--- NOTE | 2023-11-28 07:02 | P.PN ---
Date of Service: 11/28/23 Subjective: Groaning with his eyes closed, following commands with left sided weakness Mildly agitated with precedex gtt running Antibiotics changed to zosyn Lungs sounds more clear today Likely thrush on his tongue PPN running ROS: 10 point ROS as noted above, otherwise negative Physical exam GEN: eyes closed, mild agitation, groaning HEENT: Normal conjunctiva, sclera anicteric, tongue with raised yellow lesions CV: NSR S1-S2 present, no murmur noted Pulm: Nonlabored respirations on RA, Tachypnic, symmetrical chest wall movement, crackles to bilateral lung bae ABD: Soft and benign on palpation, active Bowel sounds, NT, distended (obese) MSK: No joint tenderness, weakness to left arm, 2+ peripheral pulses Integumentary: Erythema/scabbing noted to right santoro Neuro: eyes closed, attempts to speak, attempts to follow commands, left sided weakness Vitals reviewed Assessment Rule out sepsis-ruled out Pulmonary edema Delusional/delirium Hypertensive, tachycardic erythema to left lower etremtity Pneumonia/aspiration pneumonitis Urinary retention Hyperphosphatemia/hyperkalemia Elevated anion gap Acute metabolic encephalopathy Hypertension DM with hyperglycemia Status post CABG History of diastolic CHF Plan Rule out sepsis- ruled out Pulmonary edema Hypertensive, tachycardic Erythema to left lower etremtity Pneumonia/aspiration pneumonitis suspected thrush on tongue -WBC 5.4, afebrile -Blood cultures with no growth in 24 hours, afebrile -Chest xray 11/22/23 "Moderate bilateral pulmonary opacities are present most compatible with pulmonary edema. Findings appear mildly progressive since comparative study. The heart is moderately enlarged. Sternotomy wires are present. IMPRESSION: Mild worsening in lung aeration seen since 11/20/2023 study." -11/26 chest x-ray report ": Mild worsening in left and no significant change in right pulmonary opacities. This could represent pneumonia or aspiration pneumonitis." -Stopped Rocephin, start Zosyn -Repeat CXR today- "Mild worsening in left and no significant change in right pulmonary opacities. This could represent pneumonia or aspiration pneumonitis" -Restraints stopped 11/23 -Lopressor IV as needed -Speech consult Wednesday Acute metabolic encephalopathy Delusional/delirium Suspected benzodiazepine overdose Prolonged altered mental status -History of toxic metabolic encephalopathy secondary to medication disease -Patient with prescription for Valium filled on 11/12 30 tablets once daily as needed -Only 19 pills in the bottle, approximately 5 tablets unaccounted for - was concerned he may have been taking extra Valium at home -Hold oral medications for now, resume appropriate medications when patient is more alert -CT head reports " No intracranial hemorrhage, mass, or edema. Midline structures are unremarkable. Normal ventricular caliber for age. Alvarado-white matter differentiation is preserved, without evidence of acute infarct. No abnormal extra-axial fluid collections. Mastoid air cells and visualized portions of the paranasal sinuses are clear. No acute bony findings. IMPRESSION: No evidence of an acute intracranial process." -continue to limit sedation, restart home meds when he can tolerate PO -US abdomen reports "The gallbladder demonstrates no gallstones. Small amount of sludge is possible. No pericholecystic fluid or gallbladder wall thickening. The common bile duct is normal measuring 3 mm. The liver demonstrates no findings of intrahepatic biliary dilatation. IMPRESSION: Unremarkable examination." -Dr. Espinal, and Dr. Gallardo consulted-Zyprexa recommended -Stopped all home psychiatric medication -On Precedex drip in ICU, will attempt to wean tomorrow 11/27 -did not tolerate NG tube placement, PPN started Urinary retention -Chung catheter in place, UOP 1200 -Flomax when able to take PO medications Hyperphosphatemia/hyperkalemia Elevated anion gap -Dr. Lund consulted -Random Urine study complete -potassium 3.5, phosphorus 3.4 DM with hyperglycemia -Q6H Accu-Check -sliding scale insulin Q6H -Glucose 328 -on PPN Hypertension Status post CABG History of diastolic CHF -Continue home medications when patient can follow commands -Asa and plavix VTE: Lovenox Code: Full Dispo: when medically cleared <Odalys Larsen - Last Filed: 11/28/23 15:03> Patient seen and examined. Plan of care discussed with Romina Chava. Less movement noted oral fluid extremities. Mild left facial droop. Patient more responsive compared to yesterday on Precedex drip. Blood sugar readings are elevated to the 300s Plan: Wean off Precedex drip today to assess patient's mental status. Recommending MRI of the brain to rule out acute CVA. Swallow evaluation if patient become more responsive so we can start his oral medications including aspirin and Plavix and statin. Aggressive blood sugar control. Monitor and replete electrolytes as needed. <adam miller - Last Filed: 11/28/23 15:14>
[2023-11-28] MEDS: PIPER TAZO 3.375 GM in NA CHLORIDE 0.9% 100 ML IV SCH (10:51)
[2023-11-28 14:10] LABS: Abnormal Protein Band 1 REPORT; Albumin, (SPE) 3.6 g/dL (3.8-4.8); Alpha-1-Globulins 0.4 g/dL (0.2-0.3); Beta 1 Globulin 0.5 g/dL (0.4-0.6); INTERPRETATION REPORT; Total Protein 6.8 g/dL (6.1-8.1)
[2023-11-28] MEDS: INSULIN GLARGINE 100 UNIT/ML SQ ONE (15:38)
[2023-11-28] MEDS: INSULIN REGULAR (HUMAN) 100 UNIT/ML SQ SCH (17:04)
[2023-11-28] MEDS: NYSTATIN 500,000 UNIT/5 ML UDC PO SCH (17:04)
[2023-11-28] MEDS ORDERED: INSULIN REGULAR (HUMAN) 100 UNIT/ML SQ SCH (18:00)
--- NOTE | 2023-11-28 20:57 | P.PN ---
Subjective Date of Service: 11/28/23 Chief Complaint: Confusion Subjective: Other (Bedbound. On Precedex.) Physical Examination - Vital Signs Temperature: 98.4 F Blood Pressure: 146/67 Pulse: 78 Respirations: 25 Pulse Ox (%): 100 - Physical Exam General: Other (chronically ill-appearing) HEENT: Atraumatic, Normocephalic Neck: Supple, JVD not distended Respiratory: Other (symmetric chest expansion) Cardiovascular: No rubs, No murmurs Gastrointestinal: Soft and benign, No guarding Musculoskeletal: No clubbing Integumentary: No warmth Neurological: Normal tone Urinary: Other (no bladder distention) External genitalia: Deferred Rectal: Deferred Assessment And Plan - Plan 1. Acute kidney injury secondary to prerenal azotemia. Improved. No obstructive uropathy. Continue hydration via PPN. Cont ward. Monitor urine output. 2. Hypertension, controlled. Continue current treatment. 3. Mild hyperkalemia, resolved. 4. Altered mental status: Per Primary team.
[2023-11-28 21:10] LABS: Complement C3 145 mg/dL (82-185)
[2023-11-29 05:05] LABS: Absolute Eosinophils 0.4 K/uL (0-0.5); Absolute Lymphocytes (CBC) 1.1 K/uL (0.7-4.9); Absolute Monocytes 0.6 K/uL (0.1-1.3); Absolute Neutrophil 5.4 K/uL (1.8-8.0); Basophils % 0.7 % (0-1.3); Eosinophils % 5.8 % (0-4.4); Hematocrit 29.6 % (39.6-49.0); Lymphocytes % 14.8 % (15.3-44.8); MCH 27.3 pg (27.0-35.0); MCHC 33.6 g/dL (32.0-36.0); MCV 81.2 fL (80-100); MPV 7.9 fL (7.6-11.3); Monocytes % 8.5 % (3.3-12.3); Neutrophils % 70.2 % (41.7-73.7); Nucleated Red Blood Cells % 0.1 % (0-0); Platelets 276 thou/uL (152-406); RBC Red Blood Cell Count 3.65 M/uL (4.33-5.43); Red Cell Distribution Width 17.1 % (12.1-15.2)
[2023-11-29 05:12] LABS: Albumin 2.6 g/dL (3.4-5.0); Anion Gap 7.6 mEq/L (5.0-15.0); Phosphorus 3.3 mg/dL (2.5-4.9); Potassium 3.6 mEq/L (3.5-5.1)
[2023-11-29] MEDS: KCL 20 MEQ/100 mL IVPB 20 MEQ/100 ML BAG IV ONE (05:42)
[2023-11-29] MEDS: INSULIN GLARGINE 100 UNIT/ML SQ SCH (08:42)
--- NOTE | 2023-11-29 10:18 | P.PN ---
Date of Service: 11/29/23 Subjective: Awake and conversing, some hallucinations no new complaints plan to attempt the MRI today ROS: 10 point ROS as noted above, otherwise negative Physical exam GEN: Awake, alert, and oriented x2, conversing well Normal conjunctiva, sclera anicteric, tongue with raised yellow lesions CV: Regular rate and rhythm, S1-S2 present, no murmur noted Pulm: Nonlabored respirations on RA, Tachypnic, symmetrical chest wall movement, clear breath sounds ABD: Soft and benign on palpation, active Bowel sounds, NT, distended (obese) MSK: No joint tenderness, weakness to left arm, 2+ peripheral pulses Integumentary: Erythema/scabbing noted to right santoro Neuro: Conversing and crying, hallucinations Vitals reviewed Assessment Rule out sepsis-ruled out Pulmonary edema Delusional/delirium Hypertensive, tachycardic erythema to left lower etremtity Pneumonia/aspiration pneumonitis Urinary retention Hyperphosphatemia/hyperkalemia Elevated anion gap Acute metabolic encephalopathy Hypertension DM with hyperglycemia Status post CABG History of diastolic CHF Plan Rule out sepsis- ruled out Pulmonary edema Hypertensive, tachycardic Erythema to left lower etremtity Pneumonia/aspiration pneumonitis suspected thrush on tongue -WBC 7.6, afebrile -Blood cultures with no growth in 24 hours, afebrile -Chest xray 11/22/23 "Moderate bilateral pulmonary opacities are present most compatible with pulmonary edema. Findings appear mildly progressive since comparative study. The heart is moderately enlarged. Sternotomy wires are present. IMPRESSION: Mild worsening in lung aeration seen since 11/20/2023 study." -11/26 chest x-ray report ": Mild worsening in left and no significant change in right pulmonary opacities. This could represent pneumonia or aspiration pneumonitis." -Continue Zosyn -Repeat CXR today- "Mild worsening in left and no significant change in right pulmonary opacities. This could represent pneumonia or aspiration pneumonitis" -Restraints stopped 11/23 -Lopressor IV as needed -Speech consult Wednesday -Nystatin PO Acute metabolic encephalopathy Delusional/delirium Suspected benzodiazepine overdose Prolonged altered mental status -History of toxic metabolic encephalopathy secondary to medication disease -Patient with prescription for Valium filled on 11/12 30 tablets once daily as needed -Only 19 pills in the bottle, approximately 5 tablets unaccounted for - was concerned he may have been taking extra Valium at home -Hold oral medications for now, resume appropriate medications when patient is more alert -CT head reports " No intracranial hemorrhage, mass, or edema. Midline stru ctures are unremarkable. Normal ventricular caliber for age. Alvarado-white matter differentiation is preserved, without evidence of acute infarct. No abnormal extra-axial fluid collections. Mastoid air cells and visualized portions of the paranasal sinuses are clear. No acute bony findings. IMPRESSION: No evidence of an acute intracranial process." -continue to limit sedation, restart home meds when he can tolerate PO -US abdomen reports "The gallbladder demonstrates no gallstones. Small amount of sludge is possible. No pericholecystic fluid or gallbladder wall thickening. The common bile duct is normal measuring 3 mm. The liver demonstrates no findings of intrahepatic biliary dilatation. IMPRESSION: Unremarkable examination." -Dr. Espinal, and Dr. Gallardo consulted-Zyprexa recommended -Stopped all home psychiatric medication -Weaned down the precedex -did not tolerate NG tube placement, PPN started- COMMUNITY ENGAGEMENT REPRESENTATIVE consulted for diet Urinary retention -Chung catheter in place, UOP 2800 -Flomax when able to take PO medications Hyperphosphatemia/hyperkalemia Elevated anion gap -Dr. Lund consulted -Random Urine study complete -potassium 3.6, phosphorus 3.3 DM with hyperglycemia -Q6H Accu-Check -sliding scale insulin Q6H -Glucose 268 -on PPN Hypertension Status post CABG History of diastolic CHF -Continue home medications when patient can follow commands -Asa and plavix VTE: Lovenox Code: Full Dispo: when medically cleared
[2023-11-29] MEDS: HYDROMORPHONE HCL 1 MG/ML INJ IV ONE (10:57)
--- NOTE | 2023-11-29 11:58 | RAD REPORT ---
EXAM DESCRIPTION: MRI - Brain W/Wo Cont - 11/29/2023 11:44 am CLINICAL HISTORY: Metabolic encephalopathy, AMS Headache, drowsiness COMPARISON: Head Brain Wo Cont dated 11/24/2023 TECHNIQUE: Multi-sequence, multiplanar MR imaging of the brain was performed with contrast. FINDINGS: No intracranial hemorrhage, hydrocephalus, or extra-axial fluid collection. No edema or sh ift of midline structures. No intracranial mass. DWI is negative for acute CVA. The midline structures are normally formed. Mastoid air cells and paranasal sinuses are clear. Post-contrast images are mildly motion degraded without evidence of abnormal enhancement grossly visu alized. IMPRESSION: No evidence of acute CVA or other acute intracranial finding. No pathologic contrast enhancement suspected although motion artifact limits assessment.
--- NOTE | 2023-11-29 14:20 | CON ---
Date of Consultation: 11/25/2023 Reason For Consult: Evaluate the patient for severe agitation/combativeness and provide recommendations History Of Present Illness: The patient was seen at the telemetry floor. History was mostly obtained from over the phone, review of the patient's current chart, and conversation with treatment team as the patient was unable to participate with interview. Patient has chronic psychiatry history significant for Major depressive disorder and Anxiety disorder. was unable to follow any commands and was not able to respond appropriately to any of questioning. He was unable to track my presence in the room despite his eyes being open. Telephone conversation with indicates that the patient had just had his night medications and went into his bedroom when he suddenly started screaming loudly in his room. She states that when she finally got into his room, she found him very confused, unable to walk, and was groaning as if he was in severe pain. The patient's stated that she was unable to provide any assistance as she is disable(double amputee) hence she called EMS Services. She states she suspect he most have overdosed on his prescription medications as he does have previous history of overdosing on muscle relaxants. 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 She states that her has been depressed and might have intentionally overdosed on some of his medications. No past history of psychosis or history of bipolar disorder. No history of alcohol abuse. CRP was elevated at 29. Home psychotropic medications for his depression, anxiety, insomnia. These included Lunesta 3 mg p.o. at bedtime for sleep, daily, Lexapro 20 mg daily, Valium 10 mg p.o. daily, for panic attacks. Mental Status Examination: The patient was lying in bed, shirtless, but was actually moaning in pain, thrashing around in the bed, on soft restraints, diaphoretic. He was not able to participate in this examination as he was unable to follow commands or instructions. There is an hyperemic area measuring 12 by 6 cm over the part of his left lower limb. Increase psychomotor activities Vital Signs: Blood pressure 160/70, heart rate 99, temperature 97.8, respiratory rate 18, O2 sat was 96% at 2 litres of oxygen Assessment: 1. Delirium. 2. Major depressive disorder, unspecified. 3. Anxiety disorder, unspecified. 4. Diabetic keto acidosis 5. Acute renal failure. 6. Sepsis Recommendations: Although there is history of suspicious Diazepam overdose patient clinical presentation dose not indicated such however, recommend starting patient of CAW(clinical institute withdrawal assessment) Start the patient on olanzapine 5 mg p.o. b.i.d. agitation Start Olanzapine 5 mg IM 8hrly as needed for severe agitation (Not more than 30 mg Total daily dose including oral dose) Continue management of patient's medical conditions Patient lack capacity at this time in making his medical decisions defer to next of kin Discussed treatment plans with treatment team. CHRISTIANO/NAVEEN Voice ID: [id number] Report ID: [id number] SASCHA
--- NOTE | 2023-11-29 23:26 | PN ---
Date of Progress Note: 11/29/2023 Chief Complaint: Confusion, acute kidney injury. Subjective: The patient is in ICU, on Precedex. Review of Systems: Denies chest pain, palpitation. Physical Examination: Lungs: Clear to auscultation bilaterally. Heart: S1, S2. Abdomen: Soft. Extremities: Minimal peripheral edema. Impression And Plan: 1.Acute kidney injury secondary to prerenal azotemia, improved. No obstructive uropathy. Continue hydration via PPN. Continue Chung. Monitor urine output. 2.Hypertension, controlled. Continue current treatment. 3.Mild hyperkalemia, resolved. 4.Altered mental status per primary team. EB/MODL Voice ID: [id number] Report ID: [id number]
[2023-11-29] MEDS ORDERED: WATER FOR INJ,STERILE 10 ML IM PRN (23:42)
[2023-11-30] MEDS: ZIPRASIDONE MESYLA 20 MG/VIAL IM PRN (00:01)
[2023-11-30] MEDS: LORazepam 2 MG/ML VIAL IV ONE (02:13)
[2023-11-30 03:53] LABS: Absolute Basophils 0.1 K/uL (0-0.5); Absolute Eosinophils 0.6 K/uL (0-0.5); Absolute Lymphocytes (CBC) 1.3 K/uL (0.7-4.9); Absolute Monocytes 0.8 K/uL (0.1-1.3); Absolute Neutrophil 4.2 K/uL (1.8-8.0); Basophils % 1.2 % (0-1.3); Eosinophils % 8.2 % (0-4.4); Hematocrit 30.7 % (39.6-49.0); Hemoglobin 9.9 g/dL (13.6-17.9); Lymphocytes % 18.9 % (15.3-44.8); MCH 26.4 pg (27.0-35.0); MCHC 32.3 g/dL (32.0-36.0); MCV 81.5 fL (80-100); Monocytes % 10.9 % (3.3-12.3); Neutrophils % 60.8 % (41.7-73.7); Platelets 293 thou/uL (152-406); RBC Red Blood Cell Count 3.76 M/uL (4.33-5.43); Red Cell Distribution Width 17.8 % (12.1-15.2)
[2023-11-30 04:15] LABS: ALT/SGPT < 14 U/L (16-61); AST/SGOT < 10 U/L (15-37); Albumin 2.7 g/dL (3.4-5.0); Albumin/Globulin Ratio 0.7 (1.1-1.8); Alkaline Phosphatase 155 U/L (45-117); Anion Gap 8.6 mEq/L (5.0-15.0); BUN Blood Urea Nitrogen 13 mg/dL (7-18); Bicarbonate 26 mEq/L (21-32); Bilirubin Total 0.9 mg/dL (0.2-1.0); Globulin 3.8 g/dL (2.3-3.5); Glomerular Filtration Rate 87 ml/min (=/>90); Glucose Level 295 mg/dL (74-106); Magnesium 1.8 mg/dL (1.6-2.4); Phosphorus 3.1 mg/dL (2.5-4.9); Potassium 3.6 mEq/L (3.5-5.1); Protein, Total 6.5 g/dL (6.4-8.2); Sodium Level 140 mEq/L (136-145)
[2023-11-30] MEDS: HYDROMORPHONE HCL 1 MG/ML INJ IV ONE (04:29)
[2023-11-30] MEDS ORDERED: IPRATROPIUM BROM 0.5MG/2.5ML NEB PRN (07:59)
[2023-11-30] MEDS ORDERED: ALBUTEROL 2.5 MG/3 ML NEB SOL NEB PRN (07:59)
--- NOTE | 2023-11-30 09:56 | P.PN ---
Date of Service: 11/30/23 Subjective: Mental status improved No acute events overnight Patient calm, cooperative and answering questions appropriately this morning ROS: 10 point ROS as noted above, otherwise negative Physical exam GEN: Drowsy, following commands, improving HEENT: Normal conjunctiva, sclera anicteric CV: Regular rate and rhythm, no edema Pulm: Nonlabored respirations on room air ABD: Soft, nontender, nondistended MSK: No joint tenderness Integumentary: Erythema/scabbing noted to right santoro Neuro: Drowsy, answering questions more appropriately, following commands Vitals reviewed Assessment Rule out sepsis-ruled out Pulmonary edema Delusional/delirium erythema to left lower etremtity Pneumonia/aspiration pneumonitis Urinary retention Hyperphosphatemia/hyperkalemia Elevated anion gap Acute metabolic encephalopathy Hypertension DM with hyperglycemia Status post CABG History of diastolic CHF Plan Rule out sepsis- ruled out Pulmonary edema Erythema to left lower etremtity Pneumonia/aspiration pneumonitis suspected thrush on tongue -afebrile -Blood cultures with no growth -Serial CXR with concern for pneumonia -Continue Zosyn -Nystatin PO Acute metabolic encephalopathy Delusional/delirium Suspected benzodiazepine overdose Prolonged altered mental status -History of toxic metabolic encephalopathy secondary to medication abuse -Patient with prescription for Valium filled on 11/12 30 tablets once daily as needed -Only 19 pills in the bottle, approximately 5 tablets unaccounted for - was concerned he may have been taking extra Valium at home -continue to limit sedation, restart home meds when he can tolerate PO -Dr. Espinal, and Dr. Gallardo consulted-Zyprexa recommended -Stopped all home psychiatric medication -Started on olanzapine by psych -Continue PPN, serial speech eval until tolerating PO -mental status seems to be slowly improving Urinary retention -Chung catheter in place, UOP was up to -Flomax when able to take PO medications Hyperphosphatemia/hyperkalemia Elevated anion gap -Nephrology consulted and following -Random Urine study complete DM with hyperglycemia -Q6H Accu-Check -sliding scale insulin Q6H -Glucose 268 -on PPN Hypertension Status post CABG History of diastolic CHF -Continue home medications when patient can follow commands -Asa and plavix VTE: Lovenox Code: Full Dispo: 48 hours Time Spent Managing Pts Care (In Minutes): 35
[2023-11-30 11:20] LABS: C-ANCA Anti-Proteinase 3 <1.0 AI (<1.0); P-ANCA Anti-Myeloperoxidase Ab <1.0 AI (<1.0)
[2023-11-30] MEDS ORDERED: ALBUTEROL 2.5 MG/3 ML NEB SOL NEB SCH ×2 (13:00)
--- NOTE | 2023-11-30 14:19 | EKG ---
Test Date: 2023-11-26 Test Time: 16:13:24 Vac Press Operator: FABY MEASUREMENT RESULTS: Intervals: Rate: 51 VA: 134 QRSD: 90 QT: 514 QTc: 473 [place]: P: 28 VA: 134 QRS: 36 T: 67 INTERPRETIVE STATEMENTS: * Pediatric ECG analysis * Sinus bradycardia Left axis deviation Left ventricular hypertrophy Borderline Prolonged QT, may be secondary to QRS abnormality Compared to ECG 11/20/2023 02:22:49 Left-axis deviation now present Left ventricular hypertrophy now present Sinus rhythm no longer present Electronically Signed On 11-30-23 14:13:17 CDT by Keyur Bonds
[2023-11-30] MEDS: ENSURE MAX PROTEIN 330 ML LIQUID PO SCH (20:38)
--- NOTE | 2023-11-30 22:52 | PN ---
Date of Progress Note: 11/30/2023 Chief Complaint: Acute kidney injury. History Of Present Illness: The patient is admitted for altered mental status. He was found to have acute kidney injury. He responded to IV fluids. He was transferred to ICU for Precedex. He remain s confused, although he is able to respond to some simple questions. Review of Systems: Denies complaints. Physical Examination: Lungs: Clear to auscultation bilaterally. Heart: S1, S2. Abdomen: Soft. Extremities: Minimal peripheral edema. Impression And Plan: 1.Acute kidney injury secondary to prerenal azotemia, improved. No obstructive uropathy. Continue hydration with PPN. Continue Chung catheter. Monitor urine output. 2.Hypertension, controlled. Continue current medication. 3.Hyperkalemia, resolved. 4.Altered mental status, per Primary team. EB/MODL Voice ID: [id number] Report ID: [id number]
[2023-11-30] MEDS: HALOPERIDOL LACT 5 MG/ML INJ IV ONE (23:26)
[2023-12-01 04:28] LABS: Absolute Basophils 0.1 K/uL (0-0.5); Absolute Eosinophils 0.5 K/uL (0-0.5); Absolute Lymphocytes (CBC) 1.5 K/uL (0.7-4.9); Absolute Monocytes 0.9 K/uL (0.1-1.3); Absolute Neutrophil 3.9 K/uL (1.8-8.0); Basophils % 1.3 % (0-1.3); Eosinophils % 7.8 % (0-4.4); Hematocrit 31.3 % (39.6-49.0); Hemoglobin 10.1 g/dL (13.6-17.9); Lymphocytes % 21.7 % (15.3-44.8); MCH 26.2 pg (27.0-35.0); MCHC 32.1 g/dL (32.0-36.0); MCV 81.7 fL (80-100); Monocytes % 12.6 % (3.3-12.3); Neutrophils % 56.6 % (41.7-73.7); Platelets 320 thou/uL (152-406); RBC Red Blood Cell Count 3.83 M/uL (4.33-5.43); Red Cell Distribution Width 18.1 % (12.1-15.2)
[2023-12-01 04:43] LABS: Albumin 2.7 g/dL (3.4-5.0); Albumin/Globulin Ratio 0.7 (1.1-1.8); Alkaline Phosphatase 148 U/L (45-117); Anion Gap 9.9 mEq/L (5.0-15.0); BUN Blood Urea Nitrogen 14 mg/dL (7-18); Bicarbonate 28 mEq/L (21-32); Bilirubin Total 0.9 mg/dL (0.2-1.0); Glomerular Filtration Rate 86 ml/min (=/>90); Glucose Level 312 mg/dL (74-106); Magnesium 1.9 mg/dL (1.6-2.4); Phosphorus 3.2 mg/dL (2.5-4.9); Potassium 3.9 mEq/L (3.5-5.1); Protein, Total 6.7 g/dL (6.4-8.2); Sodium Level 140 mEq/L (136-145)
[2023-12-01 04:45] LABS: ALT/SGPT < 14 U/L (16-61); AST/SGOT < 10 U/L (15-37)
[2023-12-01] MEDS: POTASSIUM CL SA 10 MEQ TAB PO ONE (09:38)
--- NOTE | 2023-12-01 13:10 | P.PN ---
Date of Service: 12/01/23 Subjective: Mental status improved No acute events overnight Patient calm, cooperative and answering questions appropriately this morning Was oriented x3 today ROS: 10 point ROS as noted above, otherwise negative Physical exam GEN: Drowsy, following commands, improving, oriented x3 HEENT: Normal conjunctiva, sclera anicteric CV: Regular rate and rhythm, no edema Pulm: Nonlabored respirations on room air ABD: Soft, nontender, nondistended MSK: No joint tenderness Integumentary: Erythema/scabbing noted to right santoro Neuro: Drowsy, answering questions more appropriately, following commands Vitals reviewed Assessment Rule out sepsis-ruled out Pulmonary edema Delusional/delirium erythema to left lower etremtity Pneumonia/aspiration pneumonitis Urinary retention Hyperphosphatemia/hyperkalemia Elevated anion gap Acute metabolic encephalopathy Hypertension DM with hyperglycemia Status post CABG History of diastolic CHF Plan Rule out sepsis- ruled out Pulmonary edema Erythema to left lower etremtity Pneumonia/aspiration pneumonitis suspected thrush on tongue -afebrile -Blood cultures with no growth -Serial CXR with concern for pneumonia -Continue Zosyn -Nystatin PO Acute metabolic encephalopathy Delusional/delirium Suspected benzodiazepine overdose Prolonged altered mental status -History of toxic metabolic encephalopathy secondary to medication abuse -Patient with prescription for Valium filled on 11/12 30 tablets once daily as needed -Only 19 pills in the bottle, approximately 5 tablets unaccounted for - was concerned he may have been taking extra Valium at home -continue to limit sedation, restart home meds when he can tolerate PO -Dr. Espinal, and Dr. Gallardo consulted -Stopped all home psychiatric medication -Started on olanzapine by psych -Continue PPN, serial speech eval until tolerating PO -more alert/oriented 11/30 will hopefully start PO intake today Urinary retention -Chung catheter in place, UOP was up to -Flomax when able to take PO medications Hyperphosphatemia/hyperkalemia Elevated anion gap -Nephrology consulted and following -Random Urine study complete DM with hyperglycemia -Q6H Accu-Check -sliding scale insulin Q6H -on PPN Hypertension Status post CABG History of diastolic CHF -Continue home medications when patient can follow commands -Asa and plavix VTE: Lovenox Code: Full Dispo: 48-72 hours Time Spent Managing Pts Care (In Minutes): 35
--- NOTE | 2023-12-01 13:29 | PN ---
Subjective: Patient was admitted to the hospital with acute kidney injury secondary to prerenal, recovered. Kidney function normalized. Objective: Vital Signs: When I saw the patient, patient is still confused. Blood pressure 155/76, pulse of 91. Chest: Clear to auscultation. Heart: S1, S2. Regular. Abdomen: Soft, nontender. Extremity: Trace edema. Neuro: Alert. No focality. The patient had Chung. Laboratory Data: WBC 6.9, hemoglobin 10.1, sodium 140, potassium 3.9, bicarb 28, BUN 14, creatinine 1, blood sugar 312, calcium 9.3, phosphorus 3.1, magnesium 1.9, albumin 2.7, corrected calcium is 10.5. Current Medications: The patient on, it includes: 1. Aspirin. 2. Nystatin. 3. Zosyn. 4. Lovenox. 5. Atorvastatin. 6. Carvedilol 12.5 b.i.d. 7. Tylenol. 8. Pantoprazole 9. Insulin sliding scale. Assessment And Plan: 1. Acute kidney injury secondary to prerenal, recovered, resolved. 2. Hypertension, controlled, optimal. Continue current treatment. I am going to go ahead and increase the carvedilol to 25 mg and we will follow up the patient. 3. Marginal hyperkalemia, resolved, currently normalized. 4. Altered mental status, as by Primary, and follow up with Neurology. 5. Hyperglycemia. We will add insulin to the PPN. Time spent examining the patient [id number] reviewing data lab and radiology placing orders and discussing the case with the patient discussing the case with the team assembly line machine operator including hospitalist nursing staff more than 55-minute CECELIA Voice ID: [id number] Report ID: [id number] SASCHA
[2023-12-01] MEDS: carvediloL 25 MG TAB PO SCH (18:34)
[2023-12-01] MEDS: AMINO ACIDS 4.25 %/DEXTROSE 5% 2,000 ML, Lipids 20% 250 ML with MULTIVITAMINS INJ 10 ML IV SCH (18:34)
[2023-12-02 05:23] LABS: Anti-Nuclear Antibody Screen Negative (Negative)
[2023-12-02 05:29] LABS: AST/SGOT 13 U/L (15-37); Albumin 2.7 g/dL (3.4-5.0); Albumin/Globulin Ratio 0.6 (1.1-1.8); Alkaline Phosphatase 144 U/L (45-117); Anion Gap 9.7 mEq/L (5.0-15.0); BUN Blood Urea Nitrogen 14 mg/dL (7-18); Bicarbonate 28 mEq/L (21-32); Bilirubin Total 0.8 mg/dL (0.2-1.0); Globulin 4.3 g/dL (2.3-3.5); Glomerular Filtration Rate 92 ml/min (=/>90); Glucose Level 281 mg/dL (74-106); Magnesium 2.1 mg/dL (1.6-2.4); Phosphorus 2.7 mg/dL (2.5-4.9); Potassium 3.7 mEq/L (3.5-5.1); Sodium Level 140 mEq/L (136-145)
[2023-12-02 05:30] LABS: ALT/SGPT < 14 U/L (16-61)
[2023-12-02] MEDS: POTASSIUM CL SA 10 MEQ TAB PO ONE (08:17)
[2023-12-02] MEDS: INSULIN GLARGINE 100 UNIT/ML SQ SCH (09:48)
[2023-12-02 11:21] LABS: Absolute Basophils 0.1 K/uL (0-0.5); Absolute Eosinophils 0.6 K/uL (0-0.5); Absolute Lymphocytes (CBC) 1.9 K/uL (0.7-4.9); Absolute Monocytes 0.9 K/uL (0.1-1.3); Basophils % 1.2 % (0-1.3); Eosinophils % 7.6 % (0-4.4); Hematocrit 33.1 % (39.6-49.0); Hemoglobin 10.8 g/dL (13.6-17.9); Lymphocytes % 25.4 % (15.3-44.8); MCH 26.6 pg (27.0-35.0); MCHC 32.5 g/dL (32.0-36.0); MCV 81.8 fL (80-100); Monocytes % 11.7 % (3.3-12.3); Neutrophils % 54.1 % (41.7-73.7); Platelets 315 thou/uL (152-406); RBC Red Blood Cell Count 4.04 M/uL (4.33-5.43); Red Cell Distribution Width 17.1 % (12.1-15.2)
--- NOTE | 2023-12-02 13:18 | P.PN ---
Date of Service: 12/02/23 Subjective: Mental status improved No acute events overnight Patient calm, cooperative and answering questions appropriately this morning Was oriented x3 today again Still not eating, but states he will Still with delusional thoughts, confusion ROS: 10 point ROS as noted above, otherwise negative Physical exam GEN: Drowsy, following commands, improving, oriented x3 HEENT: Normal conjunctiva, sclera anicteric CV: Regular rate and rhythm, no edema Pulm: Nonlabored respirations on room air ABD: Soft, nontender, nondistended MSK: No joint tenderness Integumentary: Erythema/scabbing noted to right santoro Neuro: Drowsy, answering questions more appropriately, following commands Vitals reviewed Assessment Rule out sepsis-ruled out Pulmonary edema Delusional/delirium erythema to left lower etremtity Pneumonia/aspiration pneumonitis Urinary retention Hyperphosphatemia/hyperkalemia Elevated anion gap Acute metabolic encephalopathy Hypertension DM with hyperglycemia Status post CABG History of diastolic CHF Plan Rule out sepsis- ruled out Pulmonary edema-improved Erythema to left lower etremtity Pneumonia/aspiration pneumonitis suspected thrush on tongue afebrile Blood cultures with no growth Serial CXR with concern for pneumonia Continue Zosyn Nystatin PO Acute metabolic encephalopathy Delusional/delirium Suspected benzodiazepine overdose Prolonged altered mental status History of toxic metabolic encephalopathy secondary to medication abuse Patient with prescription for Valium filled on 11/12 30 tablets once daily as needed Only 19 pills in the bottle, approximately 5 tablets unaccounted for was concerned he may have been taking extra Valium at home continue to limit sedation, restart home meds when he can tolerate PO Dr. Espinal, and Dr. Gallardo consulted Stopped all home psychiatric medication Started on olanzapine by psych Continue PPN, was seen by speech and clered for minced and moist diet more alert/oriented will hopefully start PO intake today Discussed with double surface operator, may reduce rate of PPN so he has more appetite/hunger Urinary retention Ward catheter in place, UOP was up to Flomax when able to take PO medications Attempt ward DC 12/01 Hyperphosphatemia/hyperkalemia Elevated anion gap Nephrology consulted and following Random Urine study complete DM with hyperglycemia Q6H Accu-Check sliding scale insulin Q6H on PPN Hypertension Status post CABG History of diastolic CHF Continue home medications when patient can follow commands Asa and plavix VTE: Lovenox Code: Full Dispo: 48-72 hours Time Spent Managing Pts Care (In Minutes): 35
[2023-12-02] MEDS: AMINO ACIDS 4.25 %/DEXTROSE 5% 2,000 ML IV SCH (17:30)
--- NOTE | 2023-12-02 18:47 | PN ---
Date of Progress Note: 12/02/2023 Subjective: The patient was admitted to the hospital with acute kidney injury and hyperkalemia. After hydration, kidney function normalized. Objective: Vital Signs: Blood pressure 101/51, pulse of 76, afebrile. Chest: Clear to auscultation. Heart: S1, S2. Regular. Abdomen: Soft, nontender. Extremity: No edema. Neurologic: Alert. No focality. Laboratory Data: Hemoglobin 10.8, sodium 140, potassium 3.7, bicarb 28, BUN 14, creatinine 0.9, calcium 9. Phosphorus 2.7, magnesium 2.1. Glucose is still elevated on the 280. Current Medications: The patient on include nystatin, Zosyn, ferrous sulfate, atorvastatin, carvedilol, metoprolol, PPN, folic acid, glucagon, insulin. Assessment And Plan: 1. Acute kidney injury secondary to prerenal, recovered, resolved. 2. Hyperkalemia secondary to renal failure, resolved. 3. Hypertension, controlled, optimal. Continue current treatment. 4. Hypernatremia secondary to gluco diurese. I am going to go ahead and increase insulin and we will follow up with the PPN. Time spent examining the patient [id number] reviewing data lab and radiology placing orders and discussing the case with the patient discussing the case with the steam clean machine operator including hospitalist nursing staff more than 55-minute CECELIA Voice ID: [id number] Report ID: [id number] SASCHA
[2023-12-02 19:36] LABS: Anti-Double Strand DNA Antibod 1 IU/mL (<=4)
[2023-12-02] MEDS: HYDROMORPHONE HCL 1 MG/ML INJ IV SCH (21:19)
[2023-12-03 05:57] LABS: Absolute Basophils 0.1 K/uL (0-0.5); Absolute Eosinophils 0.6 K/uL (0-0.5); Absolute Lymphocytes (CBC) 1.5 K/uL (0.7-4.9); Absolute Monocytes 0.7 K/uL (0.1-1.3); Absolute Neutrophil 2.4 K/uL (1.8-8.0); Basophils % 1.4 % (0-1.3); Eosinophils % 11.1 % (0-4.4); Lymphocytes % 28.5 % (15.3-44.8); MCH 25.9 pg (27.0-35.0); MCHC 31.6 g/dL (32.0-36.0); MCV 81.9 fL (80-100); Monocytes % 12.9 % (3.3-12.3); Neutrophils % 46.1 % (41.7-73.7); Nucleated Red Blood Cells % 0.1 % (0-0); Red Cell Distribution Width 17.3 % (12.1-15.2)
[2023-12-03 07:00] LABS: Anisocytosis 2+; Blood Morphology Comment NOTED (NOT SEEN); Hypochromasia 2+; Ovalocytes 1+; Platelet Estimate ADEQ; Poikilocytosis 1+; White Blood Cell Scan OK (OK)
[2023-12-03 07:51] LABS: Hematocrit 34.6 % (39.6-49.0); RBC Red Blood Cell Count 4.17 M/uL (4.33-5.43)
[2023-12-03 07:52] LABS: Platelets 350 thou/uL (152-406)
[2023-12-03 08:00] LABS: Albumin 2.9 g/dL (3.4-5.0); Albumin/Globulin Ratio 0.7 (1.1-1.8); Bilirubin Total 0.7 mg/dL (0.2-1.0); Magnesium 1.7 mg/dL (1.6-2.4); Phosphorus 3.3 mg/dL (2.5-4.9); Protein, Total 6.9 g/dL (6.4-8.2)
[2023-12-03] MEDS: INSULIN GLARGINE 100 UNIT/ML SQ SCH (09:54)
--- NOTE | 2023-12-03 09:58 | P.PN ---
Date of Service: 12/03/23 Subjective: Mental status improved No acute events overnight Patient calm, cooperative and answering questions appropriately this morning Was oriented x3 today again Still with delusional thoughts, confusion Ate breakfast today ROS: 10 point ROS as noted above, otherwise negative Physical exam GEN: Drowsy, following commands, improving, oriented x3, still with delusional thoughts HEENT: Normal conjunctiva, sclera anicteric CV: Regular rate and rhythm, no edema Pulm: Nonlabored respirations on room air ABD: Soft, nontender, nondistended MSK: No joint tenderness Integumentary: Erythema/scabbing noted to right santoro Neuro: Drowsy, answering questions more appropriately, following commands Vitals reviewed Assessment Rule out sepsis-ruled out Pulmonary edema Delusional/delirium erythema to left lower etremtity Pneumonia/aspiration pneumonitis Urinary retention Hyperphosphatemia/hyperkalemia Elevated anion gap Acute metabolic encephalopathy Hypertension DM with hyperglycemia Status post CABG History of diastolic CHF Plan Rule out sepsis- ruled out Pulmonary edema-improved Erythema to left lower etremtity Pneumonia/aspiration pneumonitis suspected thrush on tongue afebrile Blood cultures with no growth Serial CXR with concern for pneumonia Continue Zosyn, completed course, will DC today Nystatin PO Acute metabolic encephalopathy Delusional/delirium Suspected benzodiazepine overdose Prolonged altered mental status History of toxic metabolic encephalopathy secondary to medication abuse Patient with prescription for Valium filled on 11/12 30 tablets once daily as needed Only 19 pills in the bottle, approximately 5 tablets unaccounted for was concerned he may have been taking extra Valium at home continue to limit sedation, restart home meds when he can tolerate PO Dr. Espinal, and Dr. Gallardo consulted Stopped all home psychiatric medication Started on olanzapine by psych Continue PPN, was seen by speech and clered for minced and moist diet Ate breakfast today Urinary retention Chung DC'd 12/01 Voiding without difficulty thus far since then Hyperphosphatemia/hyperkalemia Elevated anion gap Nephrology consulted and following Random Urine study complete DM with hyperglycemia Q6H Accu-Check sliding scale insulin Q6H on PPN-if he continues to eat will DC today Hypertension Status post CABG History of diastolic CHF Continue home medications Asa and plavix VTE: Lovenox Code: Full Dispo: 48-72 hours Time Spent Managing Pts Care (In Minutes): 35
[2023-12-03] MEDS: HYDROMORPHONE HCL 0.5 MG/0.5 ML INJ IV SCH (21:23)
--- NOTE | 2023-12-04 03:01 | PN ---
Chief Complaint: Acute kidney injury with hyperkalemia, volume depletion. Subjective: The patient presented to the hospital with altered mental status and severe encephalopat hy. Currently, he took Valium at home. Altered mental status slightly improved. The patient is on telemetry floor. He denies complaints. Physical Examination: Lungs: Clear to auscultation bilaterally. Heart: S1, S2. Abdomen: Soft, benign. Extremities: No edema. Impression And Plan: 1.Acute kidney injury secondary to prerenal azotemia. Avoid nonsteroidal anti-inflammatory medicati on. Renal function has improved to baseline. 2.Hyperkalemia secondary to renal failure, resolved. Monitor electrolytes. Avoid high potassium in take. 3.Hypertension, controlled, optimal. Continue current treatment. 4.Hypernatremia secondary to uncontrolled diabetes. The patient is on insulin. 5.Hypernatremia, improved. The patient may benefit from PPN. EB/MODL Voice ID: [id number] Report ID: [id number]
[2023-12-04 05:54] LABS: Absolute Basophils 0.1 K/uL (0-0.5); Absolute Eosinophils 0.7 K/uL (0-0.5); Absolute Lymphocytes (CBC) 2.1 K/uL (0.7-4.9); Absolute Monocytes 0.9 K/uL (0.1-1.3); Absolute Neutrophil 4.3 K/uL (1.8-8.0); Eosinophils % 8.2 % (0-4.4); Hematocrit 31.6 % (39.6-49.0); Hemoglobin 10.2 g/dL (13.6-17.9); Lymphocytes % 25.5 % (15.3-44.8); MCH 26.5 pg (27.0-35.0); MCHC 32.2 g/dL (32.0-36.0); MCV 82.4 fL (80-100); MPV 8.1 fL (7.6-11.3); Monocytes % 11.6 % (3.3-12.3); Neutrophils % 53.7 % (41.7-73.7); Platelets 333 thou/uL (152-406); RBC Red Blood Cell Count 3.83 M/uL (4.33-5.43); Red Cell Distribution Width 17.6 % (12.1-15.2)
[2023-12-04 06:16] LABS: Albumin 2.7 g/dL (3.4-5.0); Albumin/Globulin Ratio 0.7 (1.1-1.8); Anion Gap 8.2 mEq/L (5.0-15.0); Bilirubin Total 0.5 mg/dL (0.2-1.0); Globulin 3.8 g/dL (2.3-3.5); Magnesium 1.6 mg/dL (1.6-2.4); Phosphorus 4.7 mg/dL (2.5-4.9); Potassium 4.2 mEq/L (3.5-5.1); Protein, Total 6.5 g/dL (6.4-8.2)
[2023-12-04] MEDS: MAGNESIUM SULFATE 1 gm IVPB 1 GM/100 ML BAG IV ONE (08:15)
[2023-12-04 10:37] VITALS: BMI 37.8
--- NOTE | 2023-12-04 10:48 | P.PN ---
Date of Service: 12/04/23 Subjective: Doing much better today, oriented x 3 still some delusional thoughts Was able to ambulate in room with minimal assistance, unsteady gait PT to reevaluate today given his significant proved ROS: 10 point ROS as noted above, otherwise negative Physical exam GEN: Alert, following commands, improving, oriented x3, still with delusional thoughts HEENT: Normal conjunctiva, sclera anicteric CV: Regular rate and rhythm, no edema Pulm: Nonlabored respirations on room air ABD: Soft, nontender, nondistended MSK: No joint tenderness Integumentary: Erythema/scabbing noted to right santoro Neuro: Drowsy, answering questions more appropriately, following commands Vitals reviewed Assessment Rule out sepsis-ruled out Pulmonary edema Delusional/delirium erythema to left lower etremtity Pneumonia/aspiration pneumonitis Urinary retention Hyperphosphatemia/hyperkalemia Elevated anion gap Acute metabolic encephalopathy Hypertension DM with hyperglycemia Status post CABG History of diastolic CHF Plan Rule out sepsis- ruled out Pulmonary edema-improved Erythema to left lower etremtity Pneumonia/aspiration pneumonitis suspected thrush on tongue afebrile Blood cultures with no growth Serial CXR with concern for pneumonia Completed course of IV Zosyn Remains afebrile, breathing on room air Nystatin PO Acute metabolic encephalopathy Delusional/delirium Suspected benzodiazepine overdose Prolonged altered mental status History of toxic metabolic encephalopathy secondary to medication abuse Patient with prescription for Valium filled on 11/12 30 tablets once daily as needed Only 19 pills in the bottle, approximately 5 tablets unaccounted for was concerned he may have been taking extra Valium at home continue to limit sedation, restart home meds when he can tolerate PO Dr. Espinal, and Dr. Gallardo consulted Stopped all home psychiatric medication Started on olanzapine by psych Continue PPN, was seen by speech and clered for minced and moist diet Has been eating more food the past 2 days doing much better Urinary retention Juliet TAPIA'd 12/01 Voiding without difficulty thus far since then Hyperphosphatemia/hyperkalemia Elevated anion gap Nephrology consulted and following Random Urine study complete DM with hyperglycemia Q6H Accu-Check sliding scale insulin Q6H PPN discontinued Hypertension Status post CABG History of diastolic CHF Continue home medications Asa and plavix VTE: Lovenox Code: Full Dispo: 24 to 48 hours Time Spent Managing Pts Care (In Minutes): 35
--- NOTE | 2023-12-04 12:41 | PN ---
Date of Progress Note: 12/04/2023 Subjective: The patient was admitted to the hospital with hypernatremia and hyperkalemia secondary t o dehydration with acute kidney injury. After hydration, kidney function normalized. Physical Examination: Vital Signs: Blood pressure 120/53, pulse of 81. Chest: Clear to auscultation. Heart: S1 and S2, regular. Abdomen: Soft and nontender. Extremities: No edema. Neurologic: Alert, confused. Laboratory Data: Hemoglobin 10.2. Sodium 140, potassium 4.2, bicarb 26, BUN is 12, creatinine 1.1, GFR of 70, calcium 9.1, phosphorus 4.7, and magnesium 1.6. Current Medications: The patient on include Lovenox, Plavix, ferrous sulfate, nystatin, aspirin, alb uterol, carvedilol 25 b.i.d., atorvastatin, and metoprolol. Assessment And Plan: 1.Acute kidney injury secondary to prerenal, recovered, resolved. 2.Hypernatremia secondary to depletional, resolved. 3.Hyperkalemia secondary to renal failure, resolved. 4.Hypomagnesemia. We will supplement. 5.Deconditioning. Continue PT and OT. VANI/NAVEEN Voice ID: [id number] Report ID: [id number]
[2023-12-04] MEDS: HYDROCODONE/APAP 5/325 MG TAB PO PRN (19:35)
[2023-12-04 21:29] VITALS: O2SAT 98
[2023-12-05 07:25] LABS: Anion Gap 7.6 mEq/L (5.0-15.0); Magnesium 1.8 mg/dL (1.6-2.4); Potassium 3.6 mEq/L (3.5-5.1)
--- NOTE | 2023-12-05 08:37 | P.DS ---
Admission Date: 11/20/23 Discharge Date: 12/05/23 Disposition: ROUTINE DISCHARGE Discharge Condition: GOOD Reason for Admission: Confusion Brief History of Present Illness: Diagnosis Rule out sepsis-ruled out Pulmonary edema Delusional/delirium erythema to left lower etremtity Pneumonia/aspiration pneumonitis Urinary retention Hyperphosphatemia/hyperkalemia Elevated anion gap Acute metabolic encephalopathy Hypertension DM with hyperglycemia Status post CABG History of diastolic CHF HPI 11/20/2023 Tripp Webster is a 58-year-old male with past medical history of hypertension/DM/CAD status post CABG last year with subsequent increasing confusion. Patient was admitted here 3 months ago for worsening confusion and was started on Seroquel and recommended psychiatric follow-up; Patient was brought by EMS today after has called EMS stating patient is weak and confused. She apparently reported patient has been confused since this evening. On arrival in the ED, vital signs were stable, head CT shows no acute intracranial pathology. CBC was unremarkable, BMP shows creatinine elevation of 1.47, glucose of greater than 300. CRP was elevated at 29. Troponin was normal, BNP was mildly elevated at 4200. Lactic acid elevated at 3.0. Patient was reportedly screaming and agitated in the emergency room and was given Geodon and now patient is drowsy at the time of my interview. Phone call made to , sounded sleepy on the phone but she reported that she thinks patient has taken a bunch of Valium. She is unable to tell how many pills of Valium patient took. She said patient was also more shouting and hollering this evening than before. She states she thought patient sugar was low and she has given patient a bunch of candies before EMS arrived. However patient is unable to clearly tell if patient has been about his baseline prior to today or if he still has intermittent confusion since last admission. She denies any new fever or chills. She however seems sleepy and slow to answer questions during this my telephone conversation at 4:38 AM this morning Hospital Course: Tripp Webster is a pleasant 58 year old male with a past medical history s ignificant for hypertension/DM/CAD status post CABG last year who was admitted to the [facility] on 11/20/23 for increased confusion. Tripp presented to the ED with altered mental status. He is not taking several medications that can cause altered mental status, considered to be polypharmacy. Tripp has a history of hospital admissions with this same presentation. This has been an extensive admission working with nephrology, psychiatry, and neurology to help recover his mental abilities. Changes were made to his medication regiment. He was taken 13 days for his mentation to improve. He stayed in the ICU on a Precedex drip and PPN. He is now walking with a walker and oriented, he is ready for discharge. Please follow up with Dr. Gallardo for further medication monitoring and medication changes. Please stop taking valium, trazadone, gabapentin, lexapro, and seroquel. He has successfully taken zyprexa and doxepin safely during this admission. He will need to continue to take aspirin and plavix as prescribed by your outside providers. He will need to continue with a diabetic diet and continue insulin as prescribed by outside providers. Prescription for only five days of zyprexa has been called into your pharmacy, please follow up with PCP or Dr. Gallardo for refills and monitoring of this medication. On 12/05/2023, Tripp was seen on morning rounds and deemed medically stable for discharge. Andrea was discharged with instructions to schedule follow-up appointments with Dr. Gallardo and PCP. William was provided prescriptions for Zyprexa and aspirin. The patient and family members were given the opportunity to ask questions and reported no further questions. Furthermore, all questions were answered to the best of my ability. A copy of this discharge summary will be sent to the above providers to facilitate continuity of care. Physical exam GEN: Alert and oriented x 3, following commands, ambulating HEENT: Normal conjunctiva, sclera anicteric CV: RRR, S1-S2 present, no edema Pulm: Nonlabored respirations on room air, symmetrical chest wall movement ABD: Soft and benign on palpation, ND/NT MSK: No joint tenderness Integumentary: Erythema/scabbing noted to right santoro Neuro: Conversing well, normal tone Vital Signs/Physical Exam: Temp Pulse Resp BP Pulse Ox 98.1 F 65 16 113/56 L 98 12/05/23 08:00 12/05/23 08:00 12/05/23 08:00 12/05/23 08:00 12/05/23 08:00 Laboratory Data at Discharge: WBC 8.10 thou/uL (4.3-10.9) 12/04/23 05:43 Hgb 10.2 g/dL (13.6-17.9) L 12/04/23 05:43 Hct 31.6 % (39.6-49.0) L 12/04/23 05:43 Plt Count 333 thou/uL (152-406) 12/04/23 05:43 Sodium 140 mEq/L (136-145) 12/05/23 06:30 Potassium 3.6 mEq/L (3.5-5.1) D 12/05/23 06:30 BUN 18 mg/dL (7-18) 12/05/23 06:30 Creatinine 1.03 mg/dL (0.70-1.30) 12/05/23 06:30 Glucose 114 mg/dL (74-106) H 12/05/23 06:30 Uric Acid 9.2 mg/dL (3.5-7.2) H 11/24/23 07:18 Phosphorus 4.7 mg/dL (2.5-4.9) 12/04/23 05:43 Magnesium 1.8 mg/dL (1.6-2.4) 12/05/23 06:30 Total Bilirubin 0.5 mg/dL (0.2-1.0) 12/04/23 05:43 AST 19 U/L (15-37) 12/04/23 05:43 ALT 16 U/L (16-61) 12/04/23 05:43 Alkaline Phosphatase 129 U/L (45-117) H 12/04/23 05:43 Triglycerides 122 mg/dL (<150) 11/21/23 04:15 Cholesterol 123 mg/dL (<200) 11/21/23 04:15 HDL Cholesterol 43 mg/dL (40-60) 11/21/23 04:15 Cholesterol/HDL Ratio 2.86 11/21/23 04:15 Lipase 9 U/L (13-75) L 11/20/23 00:12 Home Medications: Atorvastatin Calcium [Lipitor] 80 mg PO BEDTIME 11/20/23 Carvedilol [Coreg] 12.5 mg PO BID 11/20/23 Clopidogrel Bisulfate [Plavix*] 75 mg PO DAILY 11/20/23 Doxepin HCl 50 mg PO DAILY 11/20/23 Ferrous Sulfate 325 mg PO SEECOM 11/20/23 Folic Acid 1 mg PO DAILY 11/20/23 Aspirin [Aspirin EC 81 MG] 81 mg PO DAILY 30 Days #30 tab 12/05/23 Ensure Max Protein 330 ml PO BID can 12/05/23 OLANZapine [Zyprexa*] 5 mg PO BID 5 Days #10 tab 12/05/23 New Medications: Aspirin [Aspirin EC 81 MG] 81 mg PO DAILY 30 Days #30 tab OLANZapine [Zyprexa*] 5 mg PO BID 5 Days #10 tab Physician Discharge Instructions: You presented to the ED with altered mental status. This has been an extensive admission working with nephrology, psychiatry, and neurology to help recover your mental abilities. You are now walking with the walker and oriented, you are ready for discharge. Because of your recent loss of mental abilities we have stopped most medications that were prescribed by Dr. Gallardo, per his request. Please follow up with him for further medication monitoring and medication changes. Below is a list of medications that have been stopped during your hospital admission. When you return home, please do not take valium trazadone, gabapentin, lexapro, or seroquel. You have successfully taken zyprexa and doxepin. Please continue to take aspirin and plavix as prescribed by your outside providers. Continue with a diabetic diet and continue your insulin as prescribed by outside providers. Please follow up with your PCP for continued medication management, as well. You are being prescribed only five days of zyprexa, please follow up with your PCP or Dr. Gallardo for refills and monitoring of this medication. 1. Please call and schedule a follow-up appointment with your PCP in 3-5 days - Please follow-up with your PCP for medication refills/adjustments 2. Please call and schedule a follow-up appointment with Dr. Gallardo in 3-5 days 3. Continue diabetic diet 4. activity restrictions Fall precautions 5. Return to the ED if symptoms worsen New medications Zyprexa 5 mg PO twice daily x five days- please see your doctor for refills Stop Medications Valium trazadone Gabapentin Lexapro Seroquel Diet: ADA Activity: Fall precautions Followup: Adri Antonio MD [Primary Care Provider] - Mike Gallardo [ACTIVE - CAN ADMIT] -
[2023-12-05 08:55] VITALS: BP 113/56; TEMP 98.1
== END 2023-12-05 09:16 | disposition home or self-care (01) | DRG 917 ==
LOC: ER 23:29 → ERHOLD 11-20 04:11 → 4TH 11-20 05:06 → 3RD-ICU 11-25 19:45 → 2ND 11-29 21:49
PROVIDERS: ADMIT Internal Medicine; ATTEND Hospitalist
PROC: 0T9B70Z Drainage of Bladder with Drainage Device, Via Natural or Artificial Opening (ICD-10-PCS; 2023-11-21)
PROC: 4A033R1 Measurement of Arterial Saturation, Peripheral, Percutaneous Approach (ICD-10-PCS; principal; 2023-11-24)
PROC: 02HV33Z Insertion of Infusion Device into Superior Vena Cava, Percutaneous Approach (ICD-10-PCS; 2023-11-24)
PROC: 3E0436Z Introduction of Nutritional Substance into Central Vein, Percutaneous Approach (ICD-10-PCS; 2023-11-24)
DX: T42.4X1A Poisoning by benzodiazepines, accidental (unintentional), initial encounter (principal); A41.9 Sepsis, unspecified organism; E11.10 Type 2 diabetes mellitus with ketoacidosis without coma; G92.8 Other toxic encephalopathy; N17.0 Acute kidney failure with tubular necrosis; J69.0 Pneumonitis due to inhalation of food and vomit; E87.1 Hypo-osmolality and hyponatremia; F05 Delirium due to known physiological condition; F03.911 Unspecified dementia, unspecified severity, with agitation; F03.92 Unspecified dementia, unspecified severity, with psychotic disturbance; F03.93 Unspecified dementia, unspecified severity, with mood disturbance; F03.94 Unspecified dementia, unspecified severity, with anxiety; B37.89 Other sites of candidiasis; I50.32 Chronic diastolic (congestive) heart failure; E87.0 Hyperosmolality and hypernatremia; E86.0 Dehydration; I11.0 Hypertensive heart disease with heart failure; E78.00 Pure hypercholesterolemia, unspecified; E11.40 Type 2 diabetes mellitus with diabetic neuropathy, unspecified; L53.9 Erythematous condition, unspecified; N28.9 Disorder of kidney and ureter, unspecified; E87.5 Hyperkalemia; K21.9 Gastro-esophageal reflux disease without esophagitis; E83.39 Other disorders of phosphorus metabolism; I95.2 Hypotension due to drugs; T42.75XA Adverse effect of unspecified antiepileptic and sedative-hypnotic drugs, initial encounter; I25.10 Atherosclerotic heart disease of native coronary artery without angina pectoris; T42.4X5A Adverse effect of benzodiazepines, initial encounter; I25.2 Old myocardial infarction; R29.810 Facial weakness; R33.9 Retention of urine, unspecified; Z74.01 Bed confinement status; Z78.1 Physical restraint status; Z79.4 Long term (current) use of insulin; Z95.1 Presence of aortocoronary bypass graft; Z95.5 Presence of coronary angioplasty implant and graft; Z79.82 Long term (current) use of aspirin; Z79.02 Long term (current) use of antithrombotics/antiplatelets; Z86.73 Personal history of transient ischemic attack (TIA), and cerebral infarction without residual deficits; Z90.49 Acquired absence of other specified parts of digestive tract; Z79.899 Other long term (current) drug therapy
CPT/HCPCS: 36415; 36600; 51702; 70450; 70553; 71045; 71260; 72125; 74177; 76705; 76770; 76857; 80048; 80053; 80061; 80069; 80076; 80202; 80307; 81001; 82043; 82140; 82247; 82248; 82435; 82550; 82570; 82805; 82947; 83520; 83605; 83690; 83735; 83880; 84100; 84132; 84156; 84165; 84300; 84439; 84443; 84484; 84550; 85025; 85027; 86021; 86038; 86140; 86160; 86225; 86430; 86803; 87040; 87077; 87186; 92526; 92610; 93005; 94640; 96372; 97116; 97163; 97530; 97542; 99285; A9577; J0360; J0696; J1170; J1630; J1650; J1940; J2405; J2543; J3411; J3475; J3480; J3486; J7030; J7040; J7050; J7644; Q9967

== ENCOUNTER 2023-12-21 09:16 | Emergency (ER) | payer OTHER ==
--- NOTE | 2023-12-21 10:35 | RAD REPORT ---
EXAM DESCRIPTION: CT - Thorax Wo Con - 12/21/2023 10:02 am CLINICAL HISTORY: Fall with chest pain COMPARISON: November 2023 TECHNIQUE: Computed axial tomography of the chest was obtained. Contrast was not requested. All CT scans are performed using dose optimization technique as appropriate and may include automated exposure control or mA/KV adjustment according to patient size. FINDINGS: The evaluation of mediastinum, jimmy and vessels is limited secondary to lack of IV contras t administration. Mild right lower lobe atelectasis. Additional right lung opacities have resolved. Partial resolution in relatively mild left lung opacities. Mild mediastinal lymphadenopathy unchanged. Small to moderate right pleural effusion without significant change. Trace pericardial effusion Median sternotomy with nonunion. Mild soft tissue posterior to left manubrium. Cholelithiasis IMPRESSION: Mild right lower lobe atelectasis. Additional right lung opacities have resolved. Partia l resolution in relatively mild left lung opacities. Mild mediastinal lymphadenopathy presumably reactive in nature. A followup CT chest in 3 months recom mended to assess stability Median sternotomy with nonunion. Mild soft tissue posterior to left manubrium. This could be inflammatory or postsurgical and could be monitored on followup exam
[2023-12-21] MEDS ORDERED: HYDROCODONE/APAP 5/325 MG TAB ONE (12:03)
--- NOTE | 2023-12-21 12:18 | ER ---
Nurse's Notes [facility] Name: Tripp Webster Age: 58 yrs Sex: Male : 1965 Arrival Date: 12/21/2023 Time: 09:16 Bed 16 Private MD: Diagnosis: Contusion of right front wall of thorax Presentation: 12/20 09:36 Chief complaint: Patient states: "I went to sit down and the chair slid out from under rs5 neath me yesterday. I landed on my right side and have been having pain to the right side of my ribs". 09:36 Acuity: MIRIAM 3 rs5 09:36 Method Of Arrival: Wheelchair rs5 09:38 Coronavirus screen: At this time, the client does not indicate any symptoms associated rs5 with coronavirus-19. Ebola Screen: No symptoms or risks identified at this time. Initial Sepsis Screen: Does the patient meet any 2 criteria? No. Patient's initial sepsis screen is negative. Does the patient have a suspected source of infection? No. Patient's initial sepsis screen is negative. Risk Assessment: Do you want to hurt yourself or someone else? Patient reports no desire to harm self or others. Onset of symptoms was December 21, 2023. Triage Assessment: 09:38 General: Appears in no apparent distress. uncomfortable, Behavior is calm, cooperative. rs5 Pain: Complains of pain in right side of ribs Pain currently is 8 out of 10 on a pain scale. Quality of pain is described as aching, Is continuous. Historical: - Allergies: 09:38 No Known Allergies; rs5 - PMHx: 09:38 CAD; GERD; Hypercholesterolemia; Hypertension; Diabetes - IDDM; Myocardial infarction; rs5 neuropathy; depressive disorder; - PSHx: 09:38 cardiac stents; Coronary artery bypass graft; toe amputation (Coronary artery bypass rs5 graft); - Immunization history:: Adult Immunizations up to date. - Infectious Disease History:: Denies. - Social history:: Smoking status: Patient denies any tobacco usage or history of. - Family history:: not pertinent. - Hospitalizations: : No recent hospitalization is reported. Screenin:37 [facility] ED Fall Risk Assessment (Adult) History of falling in the last 3 months, rs5 including since admission No falls in past 3 months (0 pts) Confusion or Disorientation No (0 pts) Intoxicated or Sedated No (0 pts) Impaired Gait No (0 pts) Mobility Assist Device Used No (0 pt) Altered Elimination No (0 pt) Score/Fall Risk Level 0 - 2 = Low Risk Oriented to surroundings, Maintained a safe environment. Abuse screen: Denies threats or abuse. Nutritional screening: No deficits noted. Tuberculosis screening: No symptoms or risk factors identified. Assessment: 09:37 General: Appears in no apparent distress. uncomfortable, Behavior is calm, cooperative. rs5 Pain: Complains of pain in right side of ribs Pain currently is 7 out of 10 on a pain scale. Quality of pain is described as aching, Is continuous. Neuro: Level of Consciousness is awake, alert, obeys commands, Oriented to person, place, time, situation. Cardiovascular: Patient's skin is warm and dry. Respiratory: Airway is patent Respiratory effort is even, unlabored, Respiratory pattern is regular, symmetrical. GI: Abdomen is round non-distended, Abd is soft and non tender X 4 quads. : No signs and/or symptoms were reported regarding the genitourinary system. EENT: No signs and/or symptoms were reported regarding the EENT system. Derm: Skin is intact, Skin is pink, warm \\T\\ dry. Musculoskeletal: Range of motion: intact in all extremities. 10:16 Reassessment: provider notified pt is experiencing pain . rs5 11:01 Reassessment: Patient and/or family updated on plan of care and expected duration. Pain rs5 level reassessed. Patient is alert, oriented x 3, equal unlabored respirations, skin warm/dry/pink. 12:13 Reassessment: No changes from previously documented assessment. rs5 Vital Signs: 09:36 BP 139 / 73; Pulse 71; Resp 17; Temp 97.8(O); Pulse Ox 97% on R/A; rs5 12:13 BP 142 / 77; Pulse 71; Resp 17; Pulse Ox 99% on R/A; rs5 ED Course: 09:19 Patient arrived in ED. ra3 09:23 Dennys Yu MD is Attending Physician. rn 09:36 Sam Marquez RN is Primary Nurse. rs5 09:37 Triage completed. rs5 09:40 Arm band placed on right wrist. rs5 09:40 Patient has correct armband on for positive identification. Bed in low position. Call rs5 light in reach. Side rails up X2. 10:04 CT Chest Wo Con In Process Unspecified. EDMS 10:14 No provider procedures requiring assistance completed. rs5 12:20 Patient did not have IV access during this emergency room visit. rs5 Administered Medications: 11:50 Drug: HYDROcodone-acetaminophen PO 5 mg-325 mg 1 tabs PO once Route: PO; rs5 12:18 Follow up: Response: No adverse reaction rs5 Medication: 10:15 VIS not applicable for this client. rs5 Outcome: 12:18 Discharge ordered by . rn 12:20 Discharged to home ambulatory, rs5 12:20 Condition: stable rs5 12:20 Discharge instructions given to patient, family, Instructed on discharge instructions, follow up and referral plans. Demonstrated understanding of instructions, follow-up care, 12:24 Patient left the ED. rs5 Signatures: Dispatcher [employer] EDMS Dennys Yu MD MD rn Sotelo, Ricky, RN RN rs5 Ilda Cintron ra3
--- NOTE | 2023-12-21 12:18 | EDPHYS ---
Physician Documentation [facility] Name: Tripp Webster Age: 58 yrs Sex: Male : 1965 Arrival Date: 12/21/2023 Time: 09:16 Bed 16 Private MD: ED Physician Dennys Yu HPI: 12/20 12:16 This 58 yrs old Male presents to ER via Wheelchair with complaints of Fall Injury - rn right side to back pain. 12:16 Details of fall: The patient fell from seated position. Onset: The symptoms/episode rn began/occurred yesterday. Associated injuries: The patient sustained injury to the chest. Severity of symptoms: At their worst the symptoms were mild, in the emergency department the symptoms are unchanged. The patient has not experienced similar symptoms in the past. Patient reports fall from seated position yesterday, hurt right side of chest, no other injuries.. Historical: - Allergies: 09:38 No Known Allergies; rs5 - PMHx: 09:38 CAD; GERD; Hypercholesterolemia; Hypertension; Diabetes - IDDM; Myocardial infarction; rs5 neuropathy; depressive disorder; - PSHx: 09:38 cardiac stents; Coronary artery bypass graft; toe amputation (Coronary artery bypass rs5 graft); - Immunization history:: Adult Immunizations up to date. - Infectious Disease History:: Denies. - Social history:: Smoking status: Patient denies any tobacco usage or history of. - Family history:: not pertinent. - Hospitalizations: : No recent hospitalization is reported. ROS: 12:16 Constitutional: Negative for fever, chills, and weight loss, Cardiovascular: Positive rn for right-sided chest trauma Respiratory: Negative for shortness of breath, cough, wheezing, and pleuritic chest pain, Abdomen/GI: Negative for abdominal pain, nausea, vomiting, diarrhea, and constipation, Back: Negative for injury and pain, MS/Extremity: Negative for injury and deformity, Skin: Negative for injury, rash, and discoloration, Neuro: Negative for headache, weakness, numbness, tingling, and seizure, Exam: 12:16 Constitutional: This is a well developed, well nourished patient who is awake, alert, rn and in no acute distress. Chest/axilla: No chest wall ecchymosis or crepitus noted. Cardiovascular: Regular rate and rhythm. No pulse deficits. Respiratory: No increased work of breathing, no retractions or nasal flaring. Abdomen/GI: Soft, non-tender Back: No spinal tenderness. No costovertebral tenderness. Full range of motion. MS/ Extremity: Pulses equal, no cyanosis. Neurovascular intact. Full, normal range of motion. Equal circumference. Neuro: Awake and alert, GCS 15, oriented to person, place, time, and situation. Cranial nerves II-XII grossly intact. Motor strength 5/5 in all extremities. Sensory grossly intact. Cerebellar exam normal. Normal gait. Vital Signs: 09:36 BP 139 / 73; Pulse 71; Resp 17; Temp 97.8(O); Pulse Ox 97% on R/A; rs5 12:13 BP 142 / 77; Pulse 71; Resp 17; Pulse Ox 99% on R/A; rs5 MDM: 09:23 Patient medically screened. rn 12:16 Differential diagnosis: contusion, fracture. Data reviewed: vital signs, nurses notes, rn radiologic studies, CT scan, and as a result, I will discharge patient. Counseling: I had a detailed discussion with the patient and/or guardian regarding the historical points, exam findings, and any diagnostic results supporting the discharge/admit diagnosis, radiology results, the need for outpatient follow up, to return to the emergency department if symptoms worsen or persist or if there are any questions or concerns that arise at home. Special discussion: I discussed with the patient/guardian in detail that at this point there is no indication for admission to the hospital. It is understood, however, that if the symptoms persist or worsen the patient needs to return immediately for re-evaluation. I discussed with the patient the need to follow-up with the PCP/specialist for the noted incidental finding on X-ray/CT scanning. 12/20 09:44 Order name: CT Chest Wo Con; Complete Time: 10:50 rn Administered Medications: 11:50 Drug: HYDROcodone-acetaminophen PO 5 mg-325 mg 1 tabs PO once Route: PO; rs5 12:18 Follow up: Response: No adverse reaction rs5 Disposition Summary: 12/21/23 12:18 Discharge Ordered Notes: Location: Home rn Problem: new rn Symptoms: have improved rn Condition: Stable rn Diagnosis - Contusion of right front wall of thorax rn Followup: rn - With: Private Physician - When: As needed - Reason: Recheck today's complaints, Re-evaluation by your physician Discharge Instructions: - Discharge Summary Sheet rn - Chest Contusion, Adult rn Forms: - Medication Reconciliation Form rn - Antibiotic government professor - Prescription Opioid Use rn - Patient Portal Instructions rn - Leadership Thank You Letter rn Prescriptions: - Tramadol 50 mg Oral Tablet - take 1 tablet ORAL route every 8 hours as needed; 12 tablet; Refills: 0, rn Product Selection Permitted Signatures: Dispatcher [employer] EDDennys English MD MD rn Sotelo, Ricky, RN RN rs5
[2023-12-21 12:28] VITALS: TEMP 97.8
[2023-12-21 12:47] VITALS: BP 142/77; O2SAT 99
== END 2023-12-21 12:24 | disposition home or self-care (01) ==
LOC: ER 09:16
DX: S20.211A Contusion of right front wall of thorax, initial encounter (principal); W07.XXXA Fall from chair, initial encounter; Y93.9 Activity, unspecified; Y92.9 Unspecified place or not applicable; I25.10 Atherosclerotic heart disease of native coronary artery without angina pectoris; K21.9 Gastro-esophageal reflux disease without esophagitis; E78.00 Pure hypercholesterolemia, unspecified; I10 Essential (primary) hypertension; E11.9 Type 2 diabetes mellitus without complications; I25.2 Old myocardial infarction; F32.A Depression, unspecified; Z89.429 Acquired absence of other toe(s), unspecified side
CPT/HCPCS: 71250; 99283

== ENCOUNTER 2024-02-05 03:19 | Emergency (ER) | payer OTHER ==
[2024-02-05 04:18] LABS: Specific Gravity 1.025 (1.005-1.030); Sqamous Epithelial <5 /HPF (None Seen); Urine Bacteria None Seen /HPF (<20); Urine Bilirubin NEGATIVE (Negative); Urine Blood Negative (Negative); Urine Clarity Turbid (Clear); Urine Color Light-Yellow (Yellow); Urine Crystals Unidentified Few /HPF (None Seen); Urine Culture Reflex Order NOT NEEDED; Urine Glucose 1+ (Negative); Urine Ketones NEGATIVE (Negative); Urine Micro Reflex YN NO BILL MICROSCOPIC; Urine Mucus Slight /HPF (None Seen); Urine Nitrite NEGATIVE (Negative); Urine Protein TRACE (Negative); Urine RBC <5 /HPF (None Seen); Urine Urobilinogen Normal (Normal); Urine pH 5.5 (5.0-7.0)
[2024-02-05 04:49] LABS: Absolute Basophils 0.1 K/uL (0-0.5); Absolute Eosinophils 0.3 K/uL (0-0.5); Absolute Lymphocytes (CBC) 1.7 K/uL (0.7-4.9); Absolute Monocytes 0.6 K/uL (0.1-1.3); Basophils % 0.8 % (0-1.3); Hematocrit 27.4 % (39.6-49.0); Hemoglobin 8.9 g/dL (13.6-17.9); Lymphocytes % 25.3 % (15.3-44.8); MCH 25.4 pg (27.0-35.0); MCHC 32.6 g/dL (32.0-36.0); MPV 7.1 fL (7.6-11.3); Monocytes % 8.7 % (3.3-12.3); Neutrophils % 60.2 % (41.7-73.7); Nucleated Red Blood Cells % 0.1 % (0-0); Platelets 294 thou/uL (152-406); RBC Red Blood Cell Count 3.51 M/uL (4.33-5.43)
[2024-02-05 05:08] LABS: Albumin 3.1 g/dL (3.4-5.0); Albumin/Globulin Ratio 0.8 (1.1-1.8); Anion Gap 8.1 mEq/L (5.0-15.0); Bilirubin Total 0.6 mg/dL (0.2-1.0); Potassium 4.1 mEq/L (3.5-5.1); Protein, Total 7.1 g/dL (6.4-8.2)
[2024-02-05] MEDS ORDERED: ONDANSETRON 4 MG/2 ML VIAL ONE ×2 (05:24→06:15)
[2024-02-05] MEDS ORDERED: ETOMIDATE 20 MG/10 ML VIAL IV ONE (05:25)
[2024-02-05] MEDS ORDERED: MORPHINE 4 MG/ML SYR ONE ×2 (05:25→06:15)
--- NOTE | 2024-02-05 06:24 | ER ---
Nurse's Notes [facility] Name: Tripp Webster Age: 59 yrs Sex: Male : 1965 Arrival Date: 02/05/2024 Time: 03:19 Bed 8 Private MD: Diagnosis: Acute moderate urinary retention, urethral meatus stricture Presentation: 02/04 03:44 Chief complaint: Patient states: Decreased urinary flow x 6-8 weeks that has been ss getting progressively worse. HX of BPH. Pt reports his PCP doubled his dose of Flomax, but it's not helping. Coronavirus screen: Client denies travel out of the [place] in the last 14 days. Ebola Screen: Patient denies exposure to infectious person. Patient denies travel to an Ebola-affected area in the 21 days before illness onset. Initial Sepsis Screen: Does the patient meet any 2 criteria? No. Patient's initial sepsis screen is negative. Does the patient have a suspected source of infection? No. Patient's initial sepsis screen is negative. Risk Assessment: Do you want to hurt yourself or someone else? Patient reports no desire to harm self or others. Onset of symptoms was December 2023. 03:44 Method Of Arrival: Ambulatory ss 03:44 Acuity: MIRIAM 3 ss Triage Assessment: 06:33 General: Appears comfortable, Behavior is cooperative, appropriate for age. bm8 Historical: - Allergies: 03:46 No Known Allergies; ss - PMHx: 03:46 CAD; Myocardial infarction; neuropathy; Hypertension; Hypercholesterolemia; GERD; ss Diabetes - IDDM; depressive disorder; 03:47 BPH; ss - PSHx: 03:46 cardiac stents; Coronary artery bypass graft; toe amputation (ry); ss - Immunization history:: Client reports receiving the 2nd dose of the Covid vaccine. - Infectious Disease History:: Denies. - Social history:: Smoking status: Patient denies any tobacco usage or history of. - Family history:: not pertinent. Screenin:45 [facility] ED Fall Risk Assessment (Adult) History of falling in the last 3 months, bm8 including since admission No falls in past 3 months (0 pts) Confusion or Disorientation No (0 pts) Intoxicated or Sedated No (0 pts) Impaired Gait No (0 pts) Mobility Assist Device Used No (0 pt) Altered Elimination No (0 pt) Score/Fall Risk Level 0 - 2 = Low Risk Oriented to surroundings, Maintained a safe environment, Educated pt \T\ family on fall prevention, incl call for assistance when getting out of bed, Assessed \T\ reinforced patient's understanding of fall precautions, Hourly rounding (assess needs \T\ fall precautionary measures) done, Used ambulatory aids as needed (educated on \T\ assisted with), Used gait belt as appropriate. 04:45 Abuse screen: Denies threats or abuse. Nutritional screening: No deficits noted. bm8 Tuberculosis screening: No symptoms or risk factors identified. Assessment: 05:22 Reassessment: several unsuccessful attempts made to insert Chung due to restrictive bm8 urethra. MD decision made to have conscious sedation for procedure. 05:22 Reassessment: Patient appears in no apparent distress at this time. Patient and/or bm8 family updated on plan of care and expected duration. Pain level reassessed. Patient is alert, oriented x 3, equal unlabored respirations, skin warm/dry/pink. Patient states feeling better. Patient states symptoms have improved. Pain: Complains of pain in penis Pain currently is 5 out of 10 on a pain scale. : Chung in place to gravity drainage. 06:41 Reassessment: pt waiting on ride from family. bm8 07:15 Reassessment: D/C ON HOLD FOR FAMILY TRANSPORT HOME. EN ROUTE, PER PT. bp 08:48 Reassessment: DC HOME WITH FAMILY. bp Vital Signs: 03:44 BP 123 / 59; Pulse 86; Resp 21; Temp 98.6(TE); Pulse Ox 98% on R/A; Weight 97.52 kg; ss Height 5 ft. 11 in. ; Pain 10/10; 05:22 BP 176 / 77; Pulse 93; Resp 20; Temp 98.6; Pulse Ox 96% on R/A; Pain 5/10; bm8 06:24 BP 152 / 66; Pulse 85; Resp 18; Temp 98.6; Pulse Ox 96% on R/A; Pain 4/10; bm8 03:44 Body Mass Index 29.99 (97.52 kg, 180.34 cm) ss 03:44 Pain Scale: Adult ss 05:22 Pain Scale: Adult bm8 06:24 Pain Scale: Adult bm8 [place] Coma Score: 05:22 Eye Response: spontaneous(4). Motor Response: obeys commands(6). Verbal Response: bm8 oriented(5). Total: 15. 06:19 Eye Response: spontaneous(4). Motor Response: obeys commands(6). Verbal Response: sp4 oriented(5). Total: 15. 06:24 Eye Response: spontaneous(4). Motor Response: obeys commands(6). Verbal Response: bm8 oriented(5). Total: 15. ED Course: 03:23 Patient arrived in ED. [id number] 03:34 Kenn Yap MD is Attending Physician. sp4 03:46 Triage completed. ss 03:47 Arm band placed on right wrist. ss 04:40 Danyel Henning, KAMILLA is Primary Nurse. bm8 04:45 Patient has correct armband on for positive identification. Placed in gown. Bed in low bm8 position. Call light in reach. Side rails up X2. Provided Education on: Conscious Sedation, pt instructed on Chung care post ER visit. Instructed on safety post conscious sedation procedure. Client placed on continuous cardiac and pulse oximetry monitoring. NIBP monitoring applied. equipment monitor phototypesetting on. Pulse ox on. NIBP on. Door closed. Noise minimized. Visitors limited. Warm blanket given. Pillow given. Verbal reassurance given. Head of bed elevated. 04:45 No provider procedures requiring assistance completed. Initial lab(s) drawn, by queenie crow sent to lab. Urine collected: clean catch specimen, clear. Inserted saline lock: 20 gauge in left upper arm, using aseptic technique. ,using aseptic technique. using ultrasound Blood collected. Flushed with 10 mL NS. 06:23 Merrick Zapata MD is Referral Physician. sp4 06:24 Chung cath inserted, using sterile technique, 16 Fr., by ED staff, balloon inflated, to bm8 gravity drainage, Patient tolerated poorly. 06:34 IV discontinued, intact, bleeding controlled, No redness/swelling at site. Pressure bm8 dressing applied. Administered Medications: 05:21 Drug: morphine IVP or IV 4 mg IVP once over 4 mins Route: IVP; Infused Over: 4 mins; bm8 Site: left upper arm; 06:19 Follow up: Response: No adverse reaction bm8 05:21 Drug: Ondansetron IVP 4 mg IVP once; over 2 minutes Route: IVP; Site: left upper arm; bm8 06:19 Follow up: Response: No adverse reaction bm8 05:50 Drug: Etomidate IVP 20 mg IVP once Route: IVP; Site: left upper arm; bm8 06:19 Follow up: Response: No adverse reaction bm8 06:19 Drug: morphine IVP or IV 4 mg IVP once over 4 mins Route: IVP; Infused Over: 4 mins; bm8 Site: left upper arm; 06:33 Follow up: Response: No adverse reaction bm8 06:19 Drug: Ondansetron IVP 4 mg IVP once; over 2 minutes Route: IVP; Site: left upper arm; bm8 06:33 Follow up: Response: No adverse reaction bm8 08:17 Drug: [place] PO 10 mg-325 mg 1 tabs PO once Route: PO; bp 08:17 Follow up: Response: No adverse reaction bp Medication: 06:20 VIS not applicable for this client. bm8 Outcome: 06:24 Discharge ordered by . sp4 06:33 Discharged to home with family, bm8 06:33 Condition: stable 06:33 Discharge instructions given to patient, Instructed on discharge instructions, follow up and referral plans. no drinking with medication, no driving heavy equipment, medication usage, safety practices, Demonstrated understanding of instructions, follow-up care, medications, 08:48 Patient left the ED. bp Signatures: Flaca Bruner, RN RN Gerardo Cary, KAMILLA RN bp Riya [id number] Kenn Yap MD MD sp4 Danyel Henning RN RN bm8
--- NOTE | 2024-02-05 06:24 | EDPHYS ---
Physician Documentation [facility] Name: Tripp Webster Age: 59 yrs Sex: Male : 1965 Arrival Date: 02/05/2024 Time: 03:19 Bed 8 Private MD: ED Physician Kenn Yap HPI: 02/04 03:34 This 59 yrs old Male presents to ER via Unassigned with complaints of Urinary sp4 Retention. 06:19 59-year-old male presents with complaint of acute bladder discomfort and urinary sp4 retention. Patient States he can evacuate small volumes of urine but his bladder remains painful. . Historical: - Allergies: 03:46 No Known Allergies; ss - PMHx: 03:46 CAD; Myocardial infarction; neuropathy; Hypertension; Hypercholesterolemia; GERD; ss Diabetes - IDDM; depressive disorder; 03:47 BPH; ss - PSHx: 03:46 cardiac stents; Coronary artery bypass graft; toe amputation (ry); ss - Immunization history:: Client reports receiving the 2nd dose of the Covid vaccine. - Infectious Disease History:: Denies. - Social history:: Smoking status: Patient denies any tobacco usage or history of. - Family history:: not pertinent. ROS: 06:19 Constitutional: Negative for fever, chills, and weight loss, positive for bladder pain sp4 and urinary retention 06:19 All other systems are negative, Exam: 06:19 Constitutional: This is a well developed, well nourished patient who is awake, alert, sp4 and in no acute distress. Head/Face: Normocephalic, atraumatic. Eyes: Pupils equal round and reactive to light, extra-ocular motions intact. Lids and lashes normal. Conjunctiva and sclera are not injected. Cornea within normal limits. Periorbital areas with no swelling, redness, or edema. ENT: Nares patent. No nasal discharge, no septal abnormalities noted. Tympanic membranes are normal and external auditory canals are clear. Oropharynx with no redness, swelling, or masses, exudates, or evidence of obstruction, uvula midline. Mucous membranes moist. Neck: Trachea midline, no thyromegaly or masses palpated, and no cervical lymphadenopathy. Supple, full range of motion without nuchal rigidity, or vertebral point tenderness. Chest/axilla: Normal chest wall appearance and motion. Nontender with no deformity. No lesions are appreciated. Cardiovascular: Regular rate and rhythm with a normal S1 and S2. No gallops, murmurs, or rubs. Normal PMI, no JVD. No pulse deficits. Respiratory: Lungs have equal breath sounds bilaterally, clear to auscultation and percussion. No rales, rhonchi or wheezes noted. No increased work of breathing, no retractions or nasal flaring. Abdomen/GI: Soft, with normal bowel sounds. No distension or tympany. No guarding or rebound. No evidence of tenderness throughout. Back: No spinal tenderness. No costovertebral tenderness. Male : genitalia with no discharge or lesions. Positive for stricture of the ureteral meatus Skin: Warm, dry with normal turgor. Normal color with no rashes, no lesions, and no evidence of cellulitis. MS/ Extremity: Pulses equal, no cyanosis. Neurovascular intact. Full, normal range of motion. Neuro: Awake and alert, GCS 15, oriented to person, place, time, and situation. Cranial nerves II-XII grossly intact. Motor strength 5/5 in all extremities. Sensory grossly intact. Psych: Awake, alert, with orientation to person, place and time. Behavior, mood, and affect are within normal limits Vital Signs: 03:44 BP 123 / 59; Pulse 86; Resp 21; Temp 98.6(TE); Pulse Ox 98% on R/A; Weight 97.52 kg; ss Height 5 ft. 11 in. ; Pain 10/10; 05:22 BP 176 / 77; Pulse 93; Resp 20; Temp 98.6; Pulse Ox 96% on R/A; Pain 5/10; bm8 06:24 BP 152 / 66; Pulse 85; Resp 18; Temp 98.6; Pulse Ox 96% on R/A; Pain 4/10; bm8 03:44 Body Mass Index 29.99 (97.52 kg, 180.34 cm) ss 03:44 Pain Scale: Adult ss 05:22 Pain Scale: Adult bm8 06:24 Pain Scale: Adult bm8 Fausto Coma Score: 05:22 Eye Response: spontaneous(4). Motor Response: obeys commands(6). Verbal Response: bm8 oriented(5). Total: 15. 06:19 Eye Response: spontaneous(4). Motor Response: obeys commands(6). Verbal Response: sp4 oriented(5). Total: 15. 06:24 Eye Response: spontaneous(4). Motor Response: obeys commands(6). Verbal Response: bm8 oriented(5). Total: 15. Procedures: 06:19 Moderate sedation: Pre-procedure assessment: the patient has been NPO 4 hour(s) prior sp4 to arrival, ASA physical classification: II - mild/mod systemic disease that does not interfere with daily routines, Airway assessment: able to hyperextend neck, able to maintain airway, can open mouth without difficulty, Mallampati classification of tongue size: II - faucial pillars and soft palate can be visualized, but uvula is masked by the base of the tongue, Monitoring during procedure: cardiac care nurse, continuous pulse oximetry, nurse at bedside at all times, Medications employed: Etomidate, 20 mg(s), Moderate sedation time 20-minutes , Post-procedure assessment: the patient is moderately sedated, Carpenter sedation score: 4 - brisk response to a light glabellar tap, Respiratory status: requires supplemental oxygen to maintain acceptable oxygen saturation, a reversal agent was not used, There is sedation was administered for Chung catheter placement. . Chung cath inserted by myself - 16 Fr. Urine output = 500 ml's. Patient tolerated well. Patient has moderate ureteral meatus stricture. Patient was consented for moderate sedation. While under sedation stricture was dilated with small hemostats and size 16 Chung catheter was placed without further complications.. MDM: 03:35 Patient medically screened. sp4 20:20 Differential Diagnosis altered mental status, sepsis, flu. Data reviewed: vital signs, sp4 nurses notes, lab test result(s). 20:20 Consideration of Admission/Observation Escalation of care including sp4 admission/observation considered. ED course: Successful Chung placement , patient was discharged home with draining Chung Catheter and a leg bag. 02/04 03:35 Order name: Urinalysis W/Microscopic; Complete Time: 05:56 sp4 02/04 04:22 Order name: CBC with Diff; Complete Time: 05:56 sp4 02/04 04:22 Order name: CMP; Complete Time: 05:56 sp4 02/04 04:02 Order name: Chung; Complete Time: 04:41 sp4 02/04 04:22 Order name: IV Saline Lock; Complete Time: 04:40 sp4 02/04 04:22 Order name: Labs collected and sent; Complete Time: 04:40 sp4 02/04 04:22 Order name: Moderate Sedation; Complete Time: 06:19 sp4 02/04 05:56 Order name: Leg Bag; Complete Time: 06:19 sp4 Administered Medications: 05:21 Drug: morphine IVP or IV 4 mg IVP once over 4 mins Route: IVP; Infused Over: 4 mins; bm8 Site: left upper arm; 06:19 Follow up: Response: No adverse reaction bm8 05:21 Drug: Ondansetron IVP 4 mg IVP once; over 2 minutes Route: IVP; Site: left upper arm; bm8 06:19 Follow up: Response: No adverse reaction bm8 05:50 Drug: Etomidate IVP 20 mg IVP once Route: IVP; Site: left upper arm; bm8 06:19 Follow up: Response: No adverse reaction bm8 06:19 Drug: morphine IVP or IV 4 mg IVP once over 4 mins Route: IVP; Infused Over: 4 mins; bm8 Site: left upper arm; 06:33 Follow up: Response: No adverse reaction bm8 06:19 Drug: Ondansetron IVP 4 mg IVP once; over 2 minutes Route: IVP; Site: left upper arm; bm8 06:33 Follow up: Response: No adverse reaction bm8 08:17 Drug: [place] PO 10 mg-325 mg 1 tabs PO once Route: PO; bp 08:17 Follow up: Response: No adverse reaction bp Disposition Summary: 02/05/24 06:24 Discharge Ordered Notes: Location: Home sp4 Problem: new sp4 Symptoms: have improved sp4 Condition: Stable sp4 Diagnosis - Acute moderate urinary retention, urethral meatus stricture sp4 Followup: sp4 - With: Merrick Zapata MD - When: 7 - 10 days - Reason: Recheck today's complaints Discharge Instructions: - Discharge Summary Sheet sp4 - Acute Urinary Retention, Male, [id number] sp4 Forms: - Patient Portal Instructions sp4 Prescriptions: - Tramadol 50 mg Oral tablet - take 1 tablet ORAL route every 6 hours as needed; 25 tablet; Refills: 0, sp4 Product Selection Permitted Signatures: Dispatcher [employer] EDMS Bruner, Flaca, RN RN ss Gerardo Cary, RN RN bp Kenn Yap MD MD sp4 Danyel Henning RN RN bm8
[2024-02-05] MEDS ORDERED: HYDROCODONE/APAP 10/325 TAB ONE (08:14)
[2024-02-05 08:58] VITALS: TEMP 98.6
[2024-02-05 09:00] VITALS: O2SAT 96
[2024-02-05 09:02] VITALS: BP 152/66
== END 2024-02-05 08:48 | disposition home or self-care (01) ==
LOC: ER 03:19
DX: R33.9 Retention of urine, unspecified (principal); N35.811 Other urethral stricture, male, meatal; N40.0 Benign prostatic hyperplasia without lower urinary tract symptoms; Z95.1 Presence of aortocoronary bypass graft; Z95.818 Presence of other cardiac implants and grafts
CPT/HCPCS: 85025; 81001; 36415; 80053; 51702; 96375; 96374; 99285; J2405 ×2

== ENCOUNTER 2024-02-06 23:44 | Emergency (ER) | payer OTHER ==
[2024-02-07] MEDS ORDERED: HYDROMORPHONE HCL 1 MG/ML INJ ONE (02:36)
[2024-02-07 02:54] LABS: Absolute Eosinophils 0.2 K/uL (0-0.5); Absolute Monocytes 0.6 K/uL (0.1-1.3); Absolute Neutrophil 5.9 K/uL (1.8-8.0); Basophils % 0.5 % (0-1.3); Eosinophils % 2.7 % (0-4.4); Hematocrit 29.2 % (39.6-49.0); Hemoglobin 9.3 g/dL (13.6-17.9); Lymphocytes % 12.8 % (15.3-44.8); MCH 25.3 pg (27.0-35.0); MCHC 31.9 g/dL (32.0-36.0); MCV 79.3 fL (80-100); MPV 7.4 fL (7.6-11.3); Monocytes % 7.3 % (3.3-12.3); Neutrophils % 76.7 % (41.7-73.7); Nucleated Red Blood Cells % 0.1 % (0-0); Platelets 281 thou/uL (152-406); RBC Red Blood Cell Count 3.69 M/uL (4.33-5.43); Red Cell Distribution Width 17.2 % (12.1-15.2)
[2024-02-07 02:58] LABS: Renal Epithelial <5 /HPF (None Seen); Specific Gravity 1.024 (1.005-1.030); Sqamous Epithelial None Seen /HPF (None Seen); Urine Bacteria None Seen /HPF (<20); Urine Bilirubin NEGATIVE (Negative); Urine Blood Trace (Negative); Urine Clarity Clear (Clear); Urine Color Colorless (Yellow); Urine Culture Reflex Order NOT NEEDED; Urine Glucose 4+ (Over) (Negative); Urine Ketones NEGATIVE (Negative); Urine Micro Reflex YN NO BILL MICROSCOPIC; Urine Mucus Slight /HPF (None Seen); Urine Nitrite NEGATIVE (Negative); Urine Protein NEGATIVE (Negative); Urine Urobilinogen Normal (Normal); Urine WBC <5 /HPF (<5); Urine pH 5.5 (5.0-7.0)
[2024-02-07 03:11] LABS: Albumin 3.3 g/dL (3.4-5.0); Albumin/Globulin Ratio 0.8 (1.1-1.8); Anion Gap 9.5 mEq/L (5.0-15.0); Bilirubin Total 0.9 mg/dL (0.2-1.0); Globulin 4.2 g/dL (2.3-3.5); Potassium 4.5 mEq/L (3.5-5.1); Protein, Total 7.5 g/dL (6.4-8.2)
--- NOTE | 2024-02-07 03:57 | ER ---
Nurse's Notes [facility] Name: Tripp Webster Age: 59 yrs Sex: Male : 1965 Arrival Date: 02/06/2024 Time: 23:44 Bed 7 Private MD: Diagnosis: Low back pain;Hyperglycemia, unspecified Presentation: 02/06 01:17 Chief complaint: Patient states: real bad kidney pain. They put a catheter in me early vc1 Wednesday morning. I've emptied it 4 times in the last 24 hours. Pain in right side lower back. Coronavirus screen: Client denies travel out of the [place] in the last 14 days. At this time, the client does not indicate any symptoms associated with coronavirus-19. Ebola Screen: Patient negative for fever greater than or equal to 101.5 degrees Fahrenheit, and additional compatible Ebola Virus Disease symptoms Patient denies exposure to infectious person. Patient denies travel to an Ebola-affected area in the 21 days before illness onset. No symptoms or risks identified at this time. Initial Sepsis Screen: Does the patient meet any 2 criteria? No. Patient's initial sepsis screen is negative. Does the patient have a suspected source of infection? No. Patient's initial sepsis screen is negative. Risk Assessment: Do you want to hurt yourself or someone else? Patient reports no desire to harm self or others. Onset of symptoms was February 07, 2024. 01:17 Method Of Arrival: Ambulatory vc1 01:17 Acuity: MIRIAM 3 vc1 01:21 Note pt requests dilaudid. vc1 Historical: - Allergies: 01:19 No Known Allergies; vc1 - PMHx: 01:19 BPH; CAD; depressive disorder; Diabetes - IDDM; GERD; Hypercholesterolemia; vc1 Hypertension; Myocardial infarction; neuropathy; - PSHx: 01:19 cardiac stents; Coronary artery bypass graft; toe amputation; vc1 - Immunization history:: Client reports having NOT received the Covid vaccine. - Infectious Disease History:: Denies. - Social history:: Smoking status: Patient denies any tobacco usage or history of. - Family history:: not pertinent. Screenin:42 [facility] ED Fall Risk Assessment (Adult) History of falling in the last 3 months, bm8 including since admission No falls in past 3 months (0 pts) Confusion or Disorientation No (0 pts) Intoxicated or Sedated No (0 pts) Impaired Gait No (0 pts) Mobility Assist Device Used No (0 pt) Altered Elimination No (0 pt) Score/Fall Risk Level 0 - 2 = Low Risk Oriented to surroundings, Maintained a safe environment, Educated pt \T\ family on fall prevention, incl call for assistance when getting out of bed, Assessed \T\ reinforced patient's understanding of fall precautions, Hourly rounding (assess needs \T\ fall precautionary measures) done, Used ambulatory aids as needed (educated on \T\ assisted with), Used gait belt as appropriate. Abuse screen: Denies threats or abuse. Nutritional screening: No deficits noted. Tuberculosis screening: No symptoms or risk factors identified. Assessment: 02:42 Reassessment: Patient appears in no apparent distress at this time. Patient and/or bm8 family updated on plan of care and expected duration. Pain level reassessed. Patient is alert, oriented x 3, equal unlabored respirations, skin warm/dry/pink. General: Appears in no apparent distress. comfortable, Behavior is calm, cooperative, appropriate for age. Pain:. Pain: Complains of pain in mid back area Pain radiates to anterior aspect of right lateral abdomen and posterior aspect of right lateral abdomen Pain currently is 9 out of 10 on a pain scale. Neuro: Level of Consciousness is awake, alert, obeys commands, Oriented to person, place, time, situation, Appropriate for age. Cardiovascular: Capillary refill < 3 seconds Patient's skin is warm and dry. Respiratory: Airway is patent Trachea midline Respiratory effort is even, unlabored, Respiratory pattern is regular, symmetrical, Breath sounds are clear bilaterally. GI: Reports right flank/kidney pain radiating to front. : No signs and/or symptoms were reported regarding the genitourinary system. EENT: No signs and/or symptoms were reported regarding the EENT system. Derm: No signs and/or symptoms reported regarding the dermatologic system. Musculoskeletal: No signs and/or symptoms reported regarding the musculoskeletal system. 04:33 Reassessment: Patient appears in no apparent distress at this time. Patient and/or bm8 family updated on plan of care and expected duration. Pain level reassessed. Patient is alert, oriented x 3, equal unlabored respirations, skin warm/dry/pink. Patient denies pain at this time. Patient states feeling better. Patient states symptoms have improved. Vital Signs: 01:19 BP 166 / 122; Pulse 105; Resp 15; Temp 97.9; Pulse Ox 98% ; Weight 97.52 kg; Height 5 vc1 ft. 11 in. ; Pain 10/10; 02:42 BP 155 / 65; Pulse 95; Resp 17; Temp 98; Pulse Ox 93% on R/A; Pain 7/10; bm8 04:33 BP 153 / 65; Pulse 92; Resp 17; Temp 98; Pulse Ox 99% ; Pain 0/10; bm8 01:19 Body Mass Index 29.99 (97.52 kg, 180.34 cm) vc1 01:19 Pain Scale: Adult vc1 02:42 Pain Scale: Adult bm8 04:33 Pain Scale: Adult bm8 Fausto Coma Score: 02:42 Eye Response: spontaneous(4). Motor Response: obeys commands(6). Verbal Response: bm8 oriented(5). Total: 15. 04:33 Eye Response: spontaneous(4). Motor Response: obeys commands(6). Verbal Response: bm8 oriented(5). Total: 15. ED Course: 02/05 23:48 Patient arrived in ED. [id number] 02/06 00:29 Umer Florentino MD is Attending Physician. rt 01:19 Triage completed. vc1 01:19 Arm band placed on right wrist. vc1 01:45 CT Abd/Pelvis - Without Contrast In Process Unspecified. EDMS 02:08 Danyel Henning, RN is Primary Nurse. bm8 02:42 Patient has correct armband on for positive identification. Bed in low position. Call bm8 light in reach. Client placed on continuous cardiac and pulse oximetry monitoring. NIBP monitoring applied. Pulse ox on. NIBP on. Door closed. Noise minimized. Warm blanket given. Pillow given. Verbal reassurance given. Head of bed elevated. 02:42 No provider procedures requiring assistance completed. Initial lab(s) drawn, by queenie crow sent to lab. Urine collected: clean catch specimen, clear. Inserted saline lock: 20 gauge in left forearm, using aseptic technique. Blood collected. Flushed with 10 mL NS Missed attempt(s): 18 gauge in left antecubital area. Bleeding controlled, band aid applied, catheter tip intact. 04:33 Provided Education on: post er care. bm8 04:33 IV discontinued, intact, bleeding controlled, No redness/swelling at site. Pressure bm8 dressing applied. Administered Medications: 02:42 Drug: HYDROmorphone IVP 1 mg IVP once Route: IVP; Site: left forearm; bm8 04:33 Follow up: Response: No adverse reaction bm8 04:29 Drug: Insulin Regular Human IVP 10 units IVP once {Co-Signature: al5 (Aleta Russell RN).} Route: IVP; Site: left forearm; 04:33 Follow up: Response: Medication Administered at Departure bm8 Medication: 02:42 VIS not applicable for this client. bm8 Outcome: 03:57 Discharge ordered by . rt 04:33 Discharged to home ambulatory, bm8 04:33 Condition: stable 04:33 Discharge instructions given to patient, Instructed on discharge instructions, follow up and referral plans. medication usage, safety practices, Demonstrated understanding of instructions, follow-up care, medications, Prescriptions given X 1, 04:35 Patient left the ED. bm8 Signatures: Dispatcher [employer] EDMS Riya [id number] Kaycee Pan RN RN vc1 Umer Florentino MD MD rt Danyel Henning RN RN Aleta Read RN5
--- NOTE | 2024-02-07 03:57 | EDPHYS ---
Physician Documentation [facility] Name: Tripp Webster Age: 59 yrs Sex: Male : 1965 Arrival Date: 02/06/2024 Time: 23:44 Bed 7 Private MD: ED Physician Umer Florentino HPI: 02/06 05:10 This 59 yrs old Male presents to ER via Ambulatory with complaints of Back Pain. rt 05:10 Patient presents to the ED with right flank pain. The patient had a Chung catheter rt placed yesterday. Denies fever, chills. Denies other acute complaints, symptoms are moderate in severity, no other aggravating leaving factors.. Historical: - Allergies: : No Known Allergies; vc1 - PMHx: :19 BPH; CAD; depressive disorder; Diabetes - IDDM; GERD; Hypercholesterolemia; vc1 Hypertension; Myocardial infarction; neuropathy; - PSHx: :19 cardiac stents; Coronary artery bypass graft; toe amputation; vc1 - Immunization history:: Client reports having NOT received the Covid vaccine. - Infectious Disease History:: Denies. - Social history:: Smoking status: Patient denies any tobacco usage or history of. - Family history:: not pertinent. ROS: 05:10 Constitutional: Negative for fever, chills, and weight loss, Cardiovascular: Negative rt for chest pain, palpitations, and edema, Respiratory: Negative for shortness of breath, cough, wheezing, and pleuritic chest pain, Abdomen/GI: Negative for abdominal pain, nausea, vomiting, diarrhea, and constipation, Skin: Negative for injury, rash, and discoloration, Neuro: Negative for headache, weakness, numbness, tingling, and seizure, 05:10 Back: Positive for flank pain, Negative for injury or acute deformity, Exam: 05:10 Constitutional: This is a well developed, well nourished patient who is awake, alert, rt and in no acute distress. Head/Face: Normocephalic, atraumatic. Chest/axilla: Normal chest wall appearance and motion. Nontender with no deformity. No lesions are appreciated. Cardiovascular: Regular rate and rhythm with a normal S1 and S2. No gallops, murmurs, or rubs. Normal PMI, no JVD. No pulse deficits. Respiratory: Lungs have equal breath sounds bilaterally, clear to auscultation and percussion. No rales, rhonchi or wheezes noted. No increased work of breathing, no retractions or nasal flaring. Abdomen/GI: Soft, non-tender, with normal bowel sounds. No distension or tympany. No guarding or rebound. No evidence of tenderness throughout. Skin: Warm, dry with normal turgor. Normal color with no rashes, no lesions, and no evidence of cellulitis. 05:10 Back: Tenderness diffusely on back, no midline tenderness, Vital Signs: 01:19 BP 166 / 122; Pulse 105; Resp 15; Temp 97.9; Pulse Ox 98% ; Weight 97.52 kg; Height 5 vc1 ft. 11 in. ; Pain 10/10; 02:42 BP 155 / 65; Pulse 95; Resp 17; Temp 98; Pulse Ox 93% on R/A; Pain 7/10; bm8 04:33 BP 153 / 65; Pulse 92; Resp 17; Temp 98; Pulse Ox 99% ; Pain 0/10; bm8 01:19 Body Mass Index 29.99 (97.52 kg, 180.34 cm) vc1 01:19 Pain Scale: Adult vc1 02:42 Pain Scale: Adult bm8 04:33 Pain Scale: Adult bm8 Fausto Coma Score: 02:42 Eye Response: spontaneous(4). Motor Response: obeys commands(6). Verbal Response: bm8 oriented(5). Total: 15. 04:33 Eye Response: spontaneous(4). Motor Response: obeys commands(6). Verbal Response: bm8 oriented(5). Total: 15. MDM: 01:16 Patient medically screened. rt 05:10 Differential diagnosis: Mechanical back pain, kidney stone, pyelonephritis. Data rt reviewed: vital signs, nurses notes, lab test result(s), radiologic studies. Independent interpretation of the following test(s) in the Emergency Department CT Scan: My interpretation is No ureteral stone seen on interpretation of CT scan images. Care significantly affected by the following chronic conditions: Diabetes. Counseling: I had a detailed discussion with the patient and/or guardian regarding the historical points, exam findings, and any diagnostic results supporting the discharge/admit diagnosis, lab results, radiology results, the need for outpatient follow up, to return to the emergency department if symptoms worsen or persist or if there are any questions or concerns that arise at home. Response to treatment: the patient's symptoms have mildly improved after treatment. 02/06 01:25 Order name: CBC with Diff; Complete Time: 03:00 rt 02/06 01:25 Order name: CMP; Complete Time: 03:15 rt 02/06 01:25 Order name: UAM; Complete Time: 03:00 rt 02/06 01:25 Order name: CT Abd/Pelvis - Without Contrast rt Administered Medications: 02:42 Drug: HYDROmorphone IVP 1 mg IVP once Route: IVP; Site: left forearm; bm8 04:33 Follow up: Response: No adverse reaction bm8 04:29 Drug: Insulin Regular Human IVP 10 units IVP once {Co-Signature: al5 (Aleta Russell RN).} Route: IVP; Site: left forearm; 04:33 Follow up: Response: Medication Administered at Departure bm8 Disposition Summary: 02/07/24 03:57 Discharge Ordered Notes: Location: Home rt Problem: new rt Symptoms: have improved rt Condition: Stable rt Diagnosis - Low back pain rt - Hyperglycemia, unspecified rt Followup: rt - With: Private Physician - When: 2 - 3 days - Reason: Discharge Instructions: - Discharge Summary Sheet rt - Acute Back Pain, Adult rt - Hyperglycemia rt Forms: - Medication Reconciliation Form rt - Antibiotic Education rt - Prescription Opioid Use rt - Patient Portal Instructions rt - Leadership Thank You Letter rt Prescriptions: - Cyclobenzaprine 10 mg Oral Tablet - take 1 tablet ORAL route every 8 hours As needed; 30 tablet; Refills: 0, rt Product Selection Permitted Signatures: Dispatcher [employer] Kaycee Cervantes RN RN vc1 Umer Florentino MD MD rt Danyel Henning RN RN bm8 Aleta Russell RN al5
[2024-02-07] MEDS ORDERED: INSULIN REGULAR (HUMAN) 100 UNIT/ML ONE (04:23)
[2024-02-07 04:56] VITALS: TEMP 98
[2024-02-07 04:57] VITALS: BP 153/65; O2SAT 99
--- NOTE | 2024-02-07 14:45 | RAD REPORT ---
EXAM DESCRIPTION: CT - Abdomen Pelvis Wo Contrast - 02/07/2024 5:55 am CLINICAL HISTORY: The patient is 59 years old and is Male; FLANK PAIN TECHNIQUE: Axial computed tomography images of the abdomen and pelvis without intravenous contrast. Sagittal and coronal reformatted images were created and reviewed. This CT exam was performed usi ng one or more of the following dose reduction techniques: automated exposure control, adjustment o f the mA and/or kV according to patient size, and/or use of iterative reconstruction technique. COMPARISON: No relevant prior studies available. FINDINGS: Lung bases: Bibasilar atelectasis. Pleural space: Small right pleural effusion. ABDOMEN: Liver: Hepatomegaly. Gallbladder and bile ducts: Hyperdensity in the gallbladder which may be due to gallstones. No ductal dilation. Pancreas: Unremarkable. No ductal dilation. Spleen: Splenomegaly. Adrenals: Unremarkable. No mass. Kidneys and ureters: Mild bilateral perinephric stranding which may be chronic. No obstructing stones. No hydronephrosis. Stomach and bowel: Unremarkable. No obstruction. No mucosal thickening. PELVIS: Appendix: No findings to suggest acute appendicitis. Bladder: Mild diffuse bladder wall thickening with perivesicular stranding. Chung catheter in the bladder. Reproductive: Unremarkable as visualized. ABDOMEN and PELVIS: Intraperitoneal space: Unremarkable. No free air. No significant fluid collection. Bones/joints: Old left rib fractures. No dislocation. Soft tissues: Unremarkable. Vasculature: Scattered atherosclerotic vascular calcifications. No abdominal aortic aneurysm. Lymph nodes: Unremarkable. No enlarged lymph nodes. IMPRESSION: 1. Small right pleural effusion. 2. Hyperdensity in the gallbladder which may be due to gallstones. 3. Splenomegaly. 4. Hepatomegaly. 5. Mild bilateral perinephric stranding which may be chronic. 6. Mild diffuse bladder wall thickening with perivesicular stranding. Correlate with any concern for cystitis. 7. Additional non-emergent findings as above. Electronically signed by: Nathaniel Mckeon MD 02/07/2024 02:09 AM CDT 8 Due to temporary technical issues with the PACS/Fluency reporting system, reports are being signed by the in house radiologist without review as a courtesy to ensure prompt reporting. The interpreting r adiologist is fully responsible for the content of the report.
== END 2024-02-07 04:35 | disposition home or self-care (01) ==
LOC: ER 23:44
DX: M54.50 Low back pain, unspecified (principal); E11.65 Type 2 diabetes mellitus with hyperglycemia; Z95.1 Presence of aortocoronary bypass graft
CPT/HCPCS: 85025; 81001; 36415; 80053; 74176; J1170; 96374; 96375; 99284

== ENCOUNTER 2024-02-08 14:55 | Emergency (ER) | payer OTHER ==
--- NOTE | 2024-02-08 16:07 | ER ---
Nurse's Notes [facility] Name: Tripp Webster Age: 59 yrs Sex: Male : 1965 Arrival Date: 02/08/2024 Time: 14:55 Bed IW2 Private MD: Diagnosis: Leakage of urinary (indwelling) catheter Presentation: 02/07 15:18 Chief complaint: Patient states: cath placed on Wednesday. states they placed the wrong kc6 size and has been having pain and leakage. Coronavirus screen: At this time, the client does not indicate any symptoms associated with coronavirus-19. Ebola Screen: No symptoms or risks identified at this time. Initial Sepsis Screen: Does the patient meet any 2 criteria? No. Patient's initial sepsis screen is negative. Does the patient have a suspected source of infection? No. Patient's initial sepsis screen is negative. Risk Assessment: Do you want to hurt yourself or someone else? Patient reports no desire to harm self or others. Onset of symptoms was February 08, 2024. 15:18 [facility] 15[facility]18 Acuity: MIRIAM 4 kc6 Historical: - Allergies: 15:22 No Known Allergies; kc6 - PMHx: 15:22 BPH; CAD; depressive disorder; Diabetes - IDDM; GERD; Hypercholesterolemia; kc6 Hypertension; Myocardial infarction; neuropathy; - PSHx: 15:22 cardiac stents; Coronary artery bypass graft; toe amputation; kc6 - Immunization history:: Adult Immunizations up to date. - Infectious Disease History:: Denies. - Social history:: Smoking status: Patient denies any tobacco usage or history of. Screenin:30 [facility] ED Fall Risk Assessment (Adult) History of falling in the last 3 months, me1 including since admission No falls in past 3 months (0 pts) Confusion or Disorientation No (0 pts) Intoxicated or Sedated No (0 pts) Impaired Gait No (0 pts) Mobility Assist Device Used No (0 pt) Altered Elimination No (0 pt) Score/Fall Risk Level 0 - 2 = Low Risk Maintained a safe environment, Provided non-skid footwear, Hourly rounding (assess needs \T\ fall precautionary measures) done. Abuse screen: Denies threats or abuse. Nutritional screening: No deficits noted. Tuberculosis screening: No symptoms or risk factors identified. Assessment: 15:30 General: Appears uncomfortable, well groomed, well developed, well nourished, Behavior me1 is calm, cooperative, appropriate for age, Reports cath placed on Wednesday. states they placed the wrong size and has been having pain and leakage. Pain: Complains of pain in groin Pain does not radiate. Pain currently is 5 out of 10 on a pain scale. Quality of pain is described as tender, Pain began gradually, Is continuous. Neuro: Level of Consciousness is awake, alert, obeys commands, Oriented to person, place, time, situation, Appropriate for age. Cardiovascular: Patient's skin is warm and dry. Respiratory: Airway is patent Trachea midline Respiratory effort is even, unlabored, Respiratory pattern is regular, symmetrical. GI: No signs and/or symptoms were reported involving the gastrointestinal system. : Chung in place to gravity drainage removed, 10 ml NS removed from balloon. Tolerated well. EENT: No signs and/or symptoms were reported regarding the EENT system. Derm: Skin is intact, is healthy with good turgor, Skin is pink, warm \T\ dry. Musculoskeletal: No signs and/or symptoms reported regarding the musculoskeletal system. 15:33 General: Chung removed. Patient returned to lobby with water to drink. Instructed to az1 let triage nurse know once he has urinated. Verbalized understanding and agreement. . Vital Signs: 15:18 BP 143 / 63; Pulse 79; Resp 16 S; Temp 98.2(O); Pulse Ox 99% on R/A; Weight 97.52 kg 6 (R); Height 5 ft. 11 in. (R); Pain 10/10; 15:18 Body Mass Index 29.99 (97.52 kg, 180.34 cm) [facility] Pain Scale: [facility] ED Course: 14:57 Patient arrived in ED. ra3 14:58 Layla Flanagan FNP-C is [facility]. kb 14:58 Leonard Kincaid DO is Attending Physician. kb 15:21 Triage completed. kc6 15:22 Brionna Bell, KAMILLA is Primary Nurse. az1 15:22 Arm band placed on. kc6 15:30 Patient has correct armband on for positive identification. Bed in low position. Call me1 light in reach. Side rails up X2. Provided Education on: POC. Verbalized understanding. . 15:30 No provider procedures requiring assistance completed. Chung cath removed intact, me1 balloon deflated. Patient did not have IV access during this emergency room visit. Administered Medications: No medications were administered Medication: 15:30 VIS not applicable for this client. me1 Outcome: 16:06 Discharge ordered by . smitha 16:13 Discharged to home ambulatory, kc6 16:13 Condition: good 16:13 Discharge instructions given to patient, Instructed on discharge instructions, follow up and referral plans. Demonstrated understanding of instructions, follow-up care, 16:14 Patient left the ED. kc6 Signatures: Layla Flanagan, EXTRUSION ENGINEER-C EXTRUSION ENGINEER-Abena Julien RN RN kc6 Brionna Bell, KAMILLA RN me1 Ilda Cintron ra3 Corrections: (The following items were deleted from the chart) 15:30 15:18 Chief complaint: Patient states: cath placed on Wednesday. states they placed the me1 wrong size and has been having pain and leakage kc6
--- NOTE | 2024-02-08 16:07 | EDPHYS ---
Physician Documentation [facility] Name: Tripp Webster Age: 59 yrs Sex: Male : 1965 Arrival Date: 02/08/2024 Time: 14:55 Bed IW2 Private MD: ED Physician Leonard Kincaid HPI: 02/07 16:03 This 59 yrs old Male presents to ER via Ambulatory with complaints of Problem With kb Urinary Catheter - Leaking. 16:03 Pt is a 59 year old male who presents for leaking catheter and discomfort. Pt states he kb had a ward placed 2 days ago because he wasn't able to completed empty his bladder. States he has seen a urologist in [place] and was told he needed 12F or smaller and they put in a 16F the other day so it is very uncomfortable. Requests that we remove ward and see if he is able to urinate on his own. Prefers not to have another one placed. . Historical: - Allergies: 15:22 No Known Allergies; kc6 - PMHx: 15:22 BPH; CAD; depressive disorder; Diabetes - IDDM; GERD; Hypercholesterolemia; kc6 Hypertension; Myocardial infarction; neuropathy; - PSHx: 15:22 cardiac stents; Coronary artery bypass graft; toe amputation; kc6 - Immunization history:: Adult Immunizations up to date. - Infectious Disease History:: Denies. - Social history:: Smoking status: Patient denies any tobacco usage or history of. ROS: 16:03 Constitutional: As per HPI kb Exam: 16:03 Constitutional: This is a well developed, well nourished patient who is awake, alert, kb and in no acute distress. Head/Face: Normocephalic, atraumatic. ENT: Moist Mucous membranes Cardiovascular: Regular rate Respiratory: Respirations even and unlabored. No increased work of breathing. Talking in full sentences Abdomen/GI: Soft, non-tender. No distention Skin: Warm, dry with normal turgor. Normal color. MS/ Extremity: Pulses equal, no cyanosis. Neurovascular intact. Full, normal range of motion. Neuro: Awake and alert, GCS 15, oriented to person, place, time, and situation. Moves all extremities. Normal gait. Vital Signs: 15:18 BP 143 / 63; Pulse 79; Resp 16 S; Temp 98.2(O); Pulse Ox 99% on R/A; Weight 97.52 kg kc6 (R); Height 5 ft. 11 in. (R); Pain 10/10; 15:18 Body Mass Index 29.99 (97.52 kg, 180.34 cm) 6 15:18 Pain Scale: Adult kc6 MDM: 14:58 Patient medically screened. kb 16:05 Differential diagnosis: ward malfunction, pain due to ward catheter. Data reviewed: kb vital signs, nurses notes. Counseling: I had a detailed discussion with the patient and/or guardian regarding the historical points, exam findings, and any diagnostic results supporting the discharge/admit diagnosis, the need for outpatient follow up, a urologist, to return to the emergency department if symptoms worsen or persist or if there are any questions or concerns that arise at home. ED course: Pt was able to urinate after ward removal and requests to be discharged. Pt will follow up with urology and return for any problems. 02/07 15:21 Order name: Susan. Order: remove ward; Complete Time: 15:29 kb Administered Medications: No medications were administered Disposition: 17:53 I was immediately available on-site in the Emergency Department for consultation in the ms3 care of the patient. Disposition Summary: 02/08/24 16:06 Discharge Ordered Notes: Location: Home kb Condition: Stable kb Diagnosis - Leakage of urinary (indwelling) catheter kb Followup: kb - With: Emergency Department - When: As needed - Reason: Worsening of condition Followup: kb - With: Private Physician - When: 2 - 3 days - Reason: Recheck today's complaints, Continuance of care, Re-evaluation by your physician Discharge Instructions: - Discharge Summary Sheet kb - Indwelling Urinary Catheter Care, Adult, [id number] kb Forms: - Medication Reconciliation Form kb - Antibiotic Education kb - Prescription Opioid Use kb - Patient Portal Instructions kb - Leadership Thank You Letter kb Signatures: Layla Flanagan FNP-C FNP-Ckb Sims, Marcus, DO DO ms3 Abena Wheeler, RN RN kc6
[2024-02-08 16:29] VITALS: BP 143/63; TEMP 98.2; O2SAT 99
== END 2024-02-08 16:14 | disposition home or self-care (01) ==
LOC: ER 14:55
DX: T83.038A Leakage of other urinary catheter, initial encounter (principal)
CPT/HCPCS: 99282

== ENCOUNTER 2024-03-25 19:18 | Inpatient (IN) | payer OTHER ==
[2024-03-25] MEDS ORDERED: CEFTRIAXONE 1000 MG/VIAL ONE (19:53)
[2024-03-25] MEDS ORDERED: FAMOTIDINE 20 MG/2 ML VIAL IV ONE ×2 (19:54→19:56)
[2024-03-25] MEDS ORDERED: NA CHLORIDE 0.9% 1,000 ML ONE (19:54)
[2024-03-25 20:01] LABS: Absolute Basophils 0.1 K/uL (0-0.5); Absolute Eosinophils 0.2 K/uL (0-0.5); Absolute Lymphocytes (CBC) 1.7 K/uL (0.7-4.9); Absolute Monocytes 0.8 K/uL (0.1-1.3); Absolute Neutrophil 3.9 K/uL (1.8-8.0); Basophils % 1.2 % (0-1.3); Eosinophils % 2.8 % (0-4.4); Hematocrit 37.3 % (39.6-49.0); Hemoglobin 12.2 g/dL (13.6-17.9); MCH 24.7 pg (27.0-35.0); MCHC 32.7 g/dL (32.0-36.0); MCV 75.6 fL (80-100); MPV 7.4 fL (7.6-11.3); Monocytes % 11.3 % (3.3-12.3); Neutrophils % 58.7 % (41.7-73.7); Nucleated Red Blood Cells % 0.1 % (0-0); Platelets 307 thou/uL (152-406); RBC Red Blood Cell Count 4.93 M/uL (4.33-5.43); Red Cell Distribution Width 17.8 % (12.1-15.2)
[2024-03-25 20:06] LABS: PT Prothrombin Time 11.7 SECONDS (9.4-12.5); Protime INR 1.05
[2024-03-25] MEDS ORDERED: HYDROCORTISONE SUC 100 MG INJ ONE (20:11)
--- NOTE | 2024-03-25 20:18 | RAD REPORT ---
EXAM: CT brain without contrast HISTORY: WEAKNESS COMPARISON: None TECHNIQUE: Multiple contiguous axial images were obtained and a CT of the brain without contrast. Sag ittal and coronal reformats were performed. One or more of the following dose reduction techniques were used: Automated exposure control, adjust ment of the mA and/or kV according to patient size, and/or iterative reconstruction. FINDINGS: No evidence of hydrocephalus, intracranial hemorrhage, or extra-axial fluid collection. The brain is normal in morphology. No evidence of midline shift or areas of brain edema. Vertebral a therosclerosis. The calvarium is intact. The visualized paranasal sinuses and mastoid air cells are essentially clear . IMPRESSION: No evidence of acute intracranial abnormality. EXAM: CT of the cervical spine without contrast HISTORY: Neck pain, injury WEAKNESS COMPARISON: None TECHNIQUE: Multiple contiguous axial images were obtained in a CT of the cervical spine without contr ast. Sagittal and coronal reformats were performed. FINDINGS: The vertebral bodies demonstrate normal height and alignment. No evidence of acute fracture or subluxation.. Mild upper cervical spondylosis. No prevertebral soft tissue swelling is seen. The posterior facets are well aligned. Normal alignment of the skull base with the cervical spine is seen. The lung apices are unremarkable. IMPRESSION: No evidence of acute osseous abnormality of the cervical spine.
[2024-03-25 20:19] LABS: Albumin/Globulin Ratio 0.9 (1.1-1.8); Anion Gap 8.1 mEq/L (5.0-15.0); Bilirubin Direct 0.2 mg/dL (0-0.2); Bilirubin Indirect, Calculated 0.6 mg/dL (0.2-0.8); Bilirubin Total 0.8 mg/dL (0.2-1.0); Globulin 4.4 g/dL (2.3-3.5); Magnesium 1.9 mg/dL (1.6-2.4); Potassium 3.1 mEq/L (3.5-5.1); Protein, Total 8.4 g/dL (6.4-8.2); Troponin High Sensitivity 12.7 pg/mL (<58.9)
--- NOTE | 2024-03-25 20:24 | RAD REPORT ---
EXAM: CT CHEST, ABDOMEN AND PELVIS WITHOUT CONTRAST CLINICAL INDICATION: FALL TECHNIQUE: CT chest, abdomen and pelvis was performed without contrast, as per department protocol. A xial, sagittal and coronal reconstructions were obtained. One or more of the following dose reduction techniques were used: Automated exposure control, adjustment of the mA and/or kV according to patient size, and/or iterative reconstruction. Unless otherwise specified, incidental findings do not require dedicated imaging follow-up. Examination is limited by the lack of intravenous contrast material. COMPARISON: No prior exam. FINDINGS: LUNGS: No evidence of airspace or interstitial process. No nodules. Mild linear atelectasis in the le ft lung base. PLEURA: No pleural effusion. No pneumothorax. MEDIASTINUM AND LYMPH NODES: No mediastinal mass or fluid collection. Normal size mediastinal, hilar, and axillary lymph nodes. OSSEOUS STRUCTURES AND CHEST WALL: Old posterior rib fractures bilaterally. LIVER: Normal in size and contour. No focal lesion or biliary dilatation. Cholelithiasis. PANCREAS: No mass, ductal dilation, or josh-pancreatic fluid. SPLEEN: Normal size. No focal lesion. ADRENALS: Normal; no mass. KIDNEYS: Normal size and contour. No hydronephrosis. URINARY BLADDER: Normal contour. GASTROINTESTINAL TRACT: No bowel obstruction, free air, significant free fluid or abscess. APPENDIX: Normal appendix. LYMPH NODES: No lymphadenopathy. MUSCULOSKELETAL: No acute or suspicious osseous abnormality. OTHER: IMPRESSION: No acute or significant abnormalities seen in the chest, abdomen or pelvis. Cholelithiasis.
[2024-03-25 20:25] LABS: SARS-CoV-2 Antigen CONTROL BLUE LINE VIS/BG OK; SARS-CoV-2 Antigen Rapid Res Negative (Negative)
--- NOTE | 2024-03-25 20:37 | RAD REPORT ---
EXAMINATION: XR LEFT KNEE CLINICAL INDICATION: PAIN TECHNIQUE: Multiple projections of the left knee were obtained. COMPARISON: No prior exam. FINDINGS: No acute fracture or dislocation seen. Small suprapatellar joint effusion. Stenting is pres ent in the posterior leg.
--- NOTE | 2024-03-25 20:37 | RAD REPORT ---
EXAMINATION: ONE VIEW CHEST XR CLINICAL INDICATION: COUGH TECHNIQUE: Frontal chest projection is submitted. Examination is limited by patient positioning and t echnique. COMPARISON: 11/27/2023 FINDINGS: Mild bilateral pulmonary edema is suspected. The heart is moderately enlarged in size. No displaced f ractures identified. Sternotomy wires. IMPRESSION: Mild CHF versus volume overload pattern is suspected.
--- NOTE | 2024-03-25 20:38 | RAD REPORT ---
EXAMINATION: XR RIGHT KNEE CLINICAL INDICATION: Male, 59 years old. PAIN TECHNIQUE: Multiple views of the right knee were obtained. COMPARISON: No prior exam. FINDINGS: No bone or joint abnormality seen. Small suprapatellar joint effusion.
--- NOTE | 2024-03-25 20:53 | ER ---
Nurse's Notes [facility] Name: Tripp Webster Age: 59 yrs Sex: Male : 1965 Arrival Date: 03/25/2024 Time: 19:18 Bed 8 Private MD: Diagnosis: Syncope Near;Fall on same level, unspecified;Unspecified kidney failure-insufficency;Adverse effect of insulin and oral hypoglycemic [antidiabetic] drugs;Hypoglycemia, unspecified;Hypotension, unspecified;Hypokalemia Presentation: 03/25 19:12 Care prior to arrival: Medication(s) given: Tylenol, 1g IV IV initiated. 20 GA, in the bm8 right forearm, Glucose check: 153. 19:19 Chief complaint: Patient states: I fell to my knees and hurt back. Its like my legs bm8 just gave out from under me. Coronavirus screen: At this time, the client does not indicate any symptoms associated with coronavirus-19. Ebola Screen: Patient negative for fever greater than or equal to 101.5 degrees Fahrenheit, and additional compatible Ebola Virus Disease symptoms Patient denies exposure to infectious person. Patient denies travel to an Ebola-affected area in the 21 days before illness onset. No symptoms or risks identified at this time. Initial Sepsis Screen: Does the patient meet any 2 criteria? No. Patient's initial sepsis screen is negative. Does the patient have a suspected source of infection? No. Patient's initial sepsis screen is negative. Risk Assessment: Do you want to hurt yourself or someone else? Patient reports no desire to harm self or others. Onset of symptoms was March 25, 2024 at 18:30. 19:19 Method Of Arrival: EMS: [facility] bm8 19:19 Acuity: MIRIAM 3 bm8 Triage Assessment: 19:21 General: Appears in no apparent distress. comfortable, Behavior is calm, cooperative, bm8 appropriate for age. Pain: Complains of pain in low back area, mid back area, right knee and left knee Pain currently is 9 out of 10 on a pain scale. EENT: No signs and/or symptoms were reported regarding the EENT system. Neuro: Level of Consciousness is awake, alert, obeys commands, Oriented to person, place, time, situation, Appropriate for age. Cardiovascular: Denies chest pain, Heart tones S1 S2 present Capillary refill < 3 seconds in bilateral fingers Patient's skin is warm and dry. Rhythm is sinus rhythm. Respiratory: Airway is patent Respiratory effort is even, unlabored, Respiratory pattern is regular, symmetrical, Breath sounds are clear bilaterally. GI: No signs and/or symptoms were reported involving the gastrointestinal system. : No signs and/or symptoms were reported regarding the genitourinary system. Derm: No signs and/or symptoms reported regarding the dermatologic system. Musculoskeletal: Circulation, motion, and sensation intact. Capillary refill < 3 seconds, in bilateral fingers. Range of motion: intact in all extremities, Reports pain in lower back and bilateral knee pain. Historical: - Allergies: 19:21 No Known Allergies; bm8 - Home Meds: 19:21 amlodipine 5 mg tab 1 tab twice a day [Active]; Aspirin Oral [Active]; atorvastatin 80 bm8 mg Oral tab 1 tab once daily [Active]; carvedilol 12.5 mg Oral tab 1 tab 2 times per day [Active]; escitalopram oxalate 20 mg Oral tab 1 tab once daily [Active]; furosemide 80 mg Oral tab 1 tab once daily [Active]; gabapentin 600 mg Oral tab 1 tab four times a day [Active]; humalin 70/30 225 units daily [Active]; hydrocodone-acetaminophen 7.5-325 mg Oral tab 1 tab twice a day [Active]; Novolin R Sub-Q [Active]; Plavix 75 mg Oral tab 1 tab twice a day [Active]; tramadol 50 mg Oral tab 1 tab twice a day [Active]; - PMHx: 19:21 BPH; CAD; depressive disorder; Diabetes - IDDM; GERD; Hypercholesterolemia; bm8 Hypertension; Myocardial infarction; neuropathy; - PSHx: 19:21 cardiac stents; toe amputation; Coronary artery bypass graft; bm8 - Immunization history:: Adult Immunizations up to date. - Infectious Disease History:: Denies. - Social history:: Smoking status: Patient denies any tobacco usage or history of. - Family history:: not pertinent. Screenin:02 [facility] ED Fall Risk Assessment (Adult) History of falling in the last 3 months, bm8 including since admission Yes- fall prone (multiple falls) (3 pts) Confusion or Disorientation No (0 pts) Intoxicated or Sedated No (0 pts) Impaired Gait Yes (1 pt) Mobility Assist Device Used No (0 pt) Altered Elimination No (0 pt) Score/Fall Risk Level 0 - 2 = Low Risk Oriented to surroundings, Maintained a safe environment, Educated pt \\T\\ family on fall prevention, incl call for assistance when getting out of bed, Assessed \\T\\ reinforced patient's understanding of fall precautions, Hourly rounding (assess needs \\T\\ fall precautionary measures) done, Used ambulatory aids as needed (educated on \\T\\ assisted with), Used gait belt as appropriate. Abuse screen: Denies threats or abuse. Nutritional screening: No deficits noted. Tuberculosis screening: No symptoms or risk factors identified. Assessment: 20:02 Neuro: No deficits noted. Level of Consciousness is awake, alert, obeys commands, bm8 Oriented to person, place, time, situation, Appropriate for age Strategic Planning Consultant are equal bilaterally Moves all extremities. Full function Gait is shuffling, Speech is normal, Facial symmetry appears normal, Pupils are PERRLA, Pupil Size: 4 mm Intact. 20:31 Reassessment: Patient appears in no apparent distress at this time. Patient and/or bm8 family updated on plan of care and expected duration. Pain level reassessed. Patient is alert, oriented x 3, equal unlabored respirations, skin warm/dry/pink. pt stated that he was feeling a little "funny" requested BS be checked. when checked it was 44, rechecked on opposites hand and same number. PT provided PBJ sandwich, sprite, fruit cocktail and chocolate pudding cup. notified. 22:01 Reassessment: Patient appears in no apparent distress at this time. No changes from bm8 previously documented assessment. Patient and/or family updated on plan of care and expected duration. Pain level reassessed. Patient is alert, oriented x 3, equal unlabored respirations, skin warm/dry/pink. Patient states symptoms have improved. Vital Signs: 19:19 BP 119 / 62; Pulse 59; Resp 17; Temp 97; Pulse Ox 100% on R/A; Weight 97.52 kg; Height bm8 5 ft. 11 in. ; Pain 9/10; 19:22 BP 115 / 55 LA Supine; Pulse 61; Resp 17; oe 19:24 BP 116 / 57 LA Sitting; Pulse 60; Resp 16; oe 19:27 BP 86 / 47 LA Standing; Pulse 68; Resp 17; oe 20:31 BP 131 / 74; Pulse 74; Resp 17; Temp 97; Pulse Ox 99% ; Pain 8/10; bm8 22:01 BP 118 / 69; Pulse 66; Resp 15; Temp 97; Pulse Ox 100% ; Pain 8/10; bm8 19:19 Body Mass Index 29.99 (97.52 kg, 180.34 cm) bm8 19:19 Pain Scale: Adult bm8 20:31 Pain Scale: Adult bm8 22:01 Pain Scale: Adult bm8 [facility] Coma Score: 20:02 Eye Response: spontaneous(4). Motor Response: obeys commands(6). Verbal Response: bm8 oriented(5). Total: 15. 20:31 Eye Response: spontaneous(4). Motor Response: obeys commands(6). Verbal Response: bm8 oriented(5). Total: 15. ED Course: 19:19 Patient arrived in ED. bm8 19:20 Naveen Cunningham MD is Attending Physician. [facility] 19:20 Initial lab(s) drawn, by co, sent to lab. First set of blood cultures drawn by co, bm COVID swab sent to lab. Flu and/or RSV swab sent to lab. Strep swab sent to lab. Inserted saline lock: 20 gauge in left upper arm, using aseptic technique. Blood collected. Flushed with 10 mL NS Maintain EMS IV. Dressing intact. Good blood return noted. Site clean \\T\\ dry. Gauge \\T\\ site: 20g R FA. Patient maintains SpO2 saturation greater than 95% on room air. 19:21 Triage completed. bm8 19:21 Arm band placed on right wrist. bm8 19:45 Second set of blood cultures drawn by co. bm8 20:01 Danyel Henning, RN is Primary Nurse. bm8 20:02 Patient has correct armband on for positive identification. Placed in gown. Bed in low bm8 position. Call light in reach. Side rails up X2. Client placed on continuous cardiac and pulse oximetry monitoring. NIBP monitoring applied. compliance monitor on. Pulse ox on. NIBP on. Door closed. Noise minimized. Warm blanket given. Pillow given. Verbal reassurance given. Head of bed elevated. 20:02 EKG done, by ED staff, reviewed by Naveen Cunningham MD. oe 20:02 No provider procedures requiring assistance completed. bm8 20:15 Head C Spine Mpr Wo Con In Process Unspecified. EDMS 20:15 Chest Abd Pelvis Wo Con In Process Unspecified. EDMS 20:29 XRAY Chest (1 view) In Process Unspecified. EDMS 20:29 Knee Left 3 View XRAY In Process Unspecified. EDMS 20:29 Knee Right 3 View XRAY In Process Unspecified. EDMS 20:31 Notified ED physician of a critical lab result(s). 44 finger stick BS. Diet tray given. bm8 PO fluids given. 20:51 Prince Ibarra MD is Hospitalizing Provider. [facility] 22:04 Provided Education on: need for admission. bm8 22:04 Patient admitted, IV remains in place. bm8 22:12 Urine collected: clean catch specimen, yonas colored. oe 22:13 Urinalysis w/ reflexes Sent. oe Administered Medications: 20:01 Drug: NS 0.9% IV 1000 ml IV at 1 bolus Per protocol; to be given as a bolus over 60 bm8 minutes Route: IV; Rate: 1 bolus; Site: left upper arm; 21:12 Follow up: Response: No adverse reaction; IV Status: Completed infusion; IV Intake: bm8 1000ml 20:01 Drug: Rocephin IV 1 grams IV at per protocol once; Given slow IV push per pharmacy bm8 instructions Route: IV; Rate: per protocol; Site: left upper arm; 21:12 Follow up: Response: No adverse reaction; IV Status: Completed infusion; IV Intake: [id number] 20:01 Drug: Famotidine IVP 20 mg IVP once; dilute with 10 mL 0.9% NaCl; give over 2 minutes bm8 Route: IVP; Site: right forearm; 21:12 Follow up: Response: No adverse reaction bm8 20:35 Drug: Solu-CORTEF IVP 100 mg IVP once Route: IVP; Site: right forearm; bm8 21:12 Follow up: Response: No adverse reaction bm8 21:12 Drug: D5-1/2 NS IV 1000 ml IV at 100 ml/hr continuous Route: IV; Rate: 100 ml/hr; Site: bm8 left upper arm; 22:04 Follow up: Response: No adverse reaction; IV Status: Infusion continued upon admission bm8 22:51 Drug: Ondansetron IVP 4 mg IVP once; over 2 minutes Route: IVP; Site: right forearm; bm8 22:52 Follow up: Response: No adverse reaction bm8 22:51 Drug: Potassium PO Effervescent Tablet 25 mEq PO once; dissolve in 4 ounces of water or bm8 juice Route: PO; 22:52 Follow up: Response: No adverse reaction bm8 22:52 Drug: fentaNYL (PF) IVP 25 mcg IVP once Route: IVP; Site: right forearm; bm8 22:52 Follow up: Response: No adverse reaction bm8 22:52 Drug: fentaNYL (PF) IVP 25 mcg IVP once Route: IVP; Site: right forearm; bm8 22:52 Follow up: Response: No adverse reaction bm8 Medication: 20:02 VIS not applicable for this client. bm8 Intake: 21:12 IV: 10ml; Total: 10ml. bm8 21:12 IV: 1000ml; Total: 1010ml. bm8 Outcome: 20:53 Decision to Hospitalize by Provider. aren 22:04 Admitted to Med/surg accompanied by nurse, via stretcher, room 224, with chart, bm8 22:04 Condition: stable 22:04 Discharge instructions given to patient, Instructed on the need for admit, Demonstrated understanding of instructions, follow-up care, medications, 22:53 Patient left the ED. bm8 Signatures: Dispatcher [employer] Naveen Francis MD MD cha Espinosa, Orlando oe McDonald, Brad, RN RN bm8
--- NOTE | 2024-03-25 20:53 | EDPHYS ---
Physician Documentation [facility] Name: Tripp Webster Age: 59 yrs Sex: Male : 1965 Arrival Date: 03/25/2024 Time: 19:18 Bed 8 Private MD: ED Physician Naveen Cunningham HPI: 03/25 19:28 This 59 yrs old Male presents to ER via EMS with complaints of Back Pain, aren Knee Pain. 19:28 The patient presents with pain that is acute, and decreased range of motion, and aren tenderness. The symptoms are located in the low back, bilateral knees. Onset: The symptoms/episode began/occurred just prior to arrival. The pain does not radiate. Associated signs and symptoms: Pertinent positives: weakness. Modifying factors: The patient symptoms are alleviated by nothing, the patient symptoms are aggravated by standing. Severity of symptoms: At their worst the symptoms were mild, moderate, in the emergency department the symptoms are unchanged. The patient has not experienced similar symptoms in the past. Historical: - Allergies: 19:21 No Known Allergies; bm8 - Home Meds: 19:21 amlodipine 5 mg tab 1 tab twice a day [Active]; Aspirin Oral [Active]; atorvastatin 80 bm8 mg Oral tab 1 tab once daily [Active]; carvedilol 12.5 mg Oral tab 1 tab 2 times per day [Active]; escitalopram oxalate 20 mg Oral tab 1 tab once daily [Active]; furosemide 80 mg Oral tab 1 tab once daily [Active]; gabapentin 600 mg Oral tab 1 tab four times a day [Active]; humalin 70/30 225 units daily [Active]; hydrocodone-acetaminophen 7.5-325 mg Oral tab 1 tab twice a day [Active]; Novolin R Sub-Q [Active]; Plavix 75 mg Oral tab 1 tab twice a day [Active]; tramadol 50 mg Oral tab 1 tab twice a day [Active]; - PMHx: 19:21 BPH; CAD; depressive disorder; Diabetes - IDDM; GERD; Hypercholesterolemia; bm8 Hypertension; Myocardial infarction; neuropathy; - PSHx: 19:21 cardiac stents; toe amputation; Coronary artery bypass graft; bm8 - Immunization history:: Adult Immunizations up to date. - Infectious Disease History:: Denies. - Social history:: Smoking status: Patient denies any tobacco usage or history of. - Family history:: not pertinent. ROS: 19:28 Constitutional: Negative for fever, chills, and weight loss, Eyes: Negative for injury, aren pain, redness, and discharge, ENT: Negative for injury, pain, and discharge, Neck: Negative for injury, pain, and swelling, Cardiovascular: Negative for chest pain, palpitations, and edema, Respiratory: Negative for shortness of breath, cough, wheezing, and pleuritic chest pain, Abdomen/GI: Negative for abdominal pain, nausea, vomiting, diarrhea, and constipation, : Negative for injury, bleeding, discharge, and swelling, Skin: Negative for injury, rash, and discoloration, Psych: Negative for depression, anxiety, suicide ideation, homicidal ideation, and hallucinations, Allergy/Immunology: Negative for hives, rash, and allergies, Endocrine: Negative for neck swelling, polydipsia, polyuria, polyphagia, and marked weight changes, Hematologic/Lymphatic: Negative for swollen nodes, abnormal bleeding, and unusual bruising, 19:28 Back: Positive for injury or acute deformity, pain with movement, of the lumbar area, 19:28 MS/extremity: Positive for pain, tenderness, of the right leg and left leg, 19:28 Neuro: Positive for syncope, weakness, Exam: 19:28 Constitutional: This is a well developed, well nourished patient who is awake, alert, aren and in no acute distress. Head/Face: Normocephalic, atraumatic. Eyes: Pupils equal round and reactive to light, extra-ocular motions intact. Lids and lashes normal. Conjunctiva and sclera are non-icteric and not injected. Cornea within normal limits. Periorbital areas with no swelling, redness, or edema. ENT: Nares patent. No nasal discharge, no septal abnormalities noted. Tympanic membranes are normal and external auditory canals are clear. Oropharynx with no redness, swelling, or masses, exudates, or evidence of obstruction, uvula midline. Mucous membranes moist. Neck: Trachea midline, no thyromegaly or masses palpated, and no cervical lymphadenopathy. Supple, full range of motion without nuchal rigidity, or vertebral point tenderness. No Meningismus. Chest/axilla: Normal chest wall appearance and motion. Nontender with no deformity. No lesions are appreciated. Cardiovascular: Regular rate and rhythm with a normal S1 and S2. No gallops, murmurs, or rubs. Normal PMI, no JVD. No pulse deficits. Respiratory: Lungs have equal breath sounds bilaterally, clear to auscultation and percussion. No rales, rhonchi or wheezes noted. No increased work of breathing, no retractions or nasal flaring. Abdomen/GI: Soft, non-tender, with normal bowel sounds. No distension or tympany. No guarding or rebound. No evidence of tenderness throughout. Back: No spinal tenderness. No costovertebral tenderness. Full range of motion. Skin: Warm, dry with normal turgor. Normal color with no rashes, no lesions, and no evidence of cellulitis. MS/ Extremity: Pulses equal, no cyanosis. Neurovascular intact. Full, normal range of motion. Neuro: Awake and alert, GCS 15, oriented to person, place, time, and situation. Cranial nerves II-XII grossly intact. Motor strength 5/5 in all extremities. Sensory grossly intact. Cerebellar exam normal. Normal gait. Psych: Awake, alert, with orientation to person, place and time. Behavior, mood, and affect are within normal limits. 19:28 ECG was reviewed by the Attending Physician. Vital Signs: 19:19 BP 119 / 62; Pulse 59; Resp 17; Temp 97; Pulse Ox 100% on R/A; Weight 97.52 kg; Height bm8 5 ft. 11 in. ; Pain 9/10; 19:22 BP 115 / 55 LA Supine; Pulse 61; Resp 17; oe 19:24 BP 116 / 57 LA Sitting; Pulse 60; Resp 16; oe 19:27 BP 86 / 47 LA Standing; Pulse 68; Resp 17; oe 20:31 BP 131 / 74; Pulse 74; Resp 17; Temp 97; Pulse Ox 99% ; Pain 8/10; bm8 22:01 BP 118 / 69; Pulse 66; Resp 15; Temp 97; Pulse Ox 100% ; Pain 8/10; bm8 19:19 Body Mass Index 29.99 (97.52 kg, 180.34 cm) bm8 19:19 Pain Scale: Adult bm8 20:31 Pain Scale: Adult bm8 22:01 Pain Scale: Adult bm8 Fausto Coma Score: 20:02 Eye Response: spontaneous(4). Motor Response: obeys commands(6). Verbal Response: bm8 oriented(5). Total: 15. 20:31 Eye Response: spontaneous(4). Motor Response: obeys commands(6). Verbal Response: bm8 oriented(5). Total: 15. MDM: 19:20 Patient medically screened. arne 19:31 Differential diagnosis: chronic back pain, Fatigue Metastatic Disease Obesity aren Osteoarthritis ruptured disc, Scoliosis sickle cell crisis, sprain, Ureterolithiasis vertebral fracture. Data reviewed: vital signs, nurses notes, EMS record, lab test result(s), EKG, radiologic studies, CT scan, plain films. Consideration of Admission/Observation Patient was admitted/placed on observation. Escalation of care including admission/observation considered. I considered the following discharge prescriptions or medication management in the emergency department Medications were administered in the Emergency Department. See MAR. Independent interpretation of the following test(s) in the Emergency Department EKG: See my EKG interpretation above. Test considered but Not performed: MRI: no mri spine. Historians other than the Patient: EMS: ems well informed. Care significantly affected by the following chronic conditions: Diabetes, Hypertension, Obesity, cad, bph. 03/25 19:26 Order name: Basic Metabolic Panel; Complete Time: 20:48 [facility] 03/25 19:26 Order name: CBC with Diff; Complete Time: 20:17 [facility] 03/25 19:26 Order name: LFT's; Complete Time: 20:48 [facility] 03/25 19:26 Order name: Magnesium; Complete Time: 20:48 [facility] 03/25 19:26 Order name: NT PRO-BNP; Complete Time: 20:48 [facility] 03/25 19:26 Order name: PT-INR; Complete Time: 20:17 [facility] 03/25 19:26 Order name: Troponin HS; Complete Time: 20:48 [facility] 03/25 19:26 Order name: Lipase; Complete Time: 20:48 [facility] 03/25 19:26 Order name: Urinalysis w/ reflexes; Complete Time: 22:37 [facility] 03/25 19:26 Order name: Flu; Complete Time: 20:48 [facility] 03/25 19:26 Order name: Strep aren 03/25 19:26 Order name: SARS RAPID; Complete Time: 20:48 [facility] 03/25 19:26 Order name: Blood Culture Adult (2) [facility] 03/25 19:26 Order name: Lactate w/ 2H reflex if indic.; Complete Time: 20:17 [facility] 03/25 20:27 Order name: Throat Culture EDMS 03/25 20:39 Order name: Glucose, Ancillary Testing; Complete Time: 20:48 EDMS 03/25 21:34 Order name: Magnesium EDMS 03/25 21:34 Order name: Phosphorus EDMS 03/25 21:34 Order name: Urinalysis w/ reflexes EDMS 03/25 21:34 Order name: Basic Metabolic Panel EDMS 03/25 21:34 Order name: Basic Metabolic Panel EDMS 03/25 21:34 Order name: CBC with Automated Diff EDMS 03/25 21:34 Order name: CBC with Automated Diff EDMS 03/25 22:17 Order name: Glucose, Ancillary Testing; Complete Time: 22:37 EDMS 03/25 19:26 Order name: XRAY Chest (1 view); Complete Time: 20:48 [facility] 03/25 19:26 Order name: Knee Left 3 View XRAY; Complete Time: 20:48 [facility] 03/25 19:26 Order name: Knee Right 3 View XRAY; Complete Time: 20:48 [facility] 03/25 20:07 Order name: Head C Spine Mpr Wo Con; Complete Time: 20:48 EDMS 03/25 20:10 Order name: Chest Abd Pelvis Wo Con; Complete Time: 20:48 EDMS 03/25 19:26 Order name: EKG; Complete Time: 19:27 [facility] 03/25 21:34 Order name: Physical Therapy Consult EDMT 03/25 19:26 Order name: Cardiac monitoring; Complete Time: 20:02 [facility] 03/25 19:26 Order name: EKG - Nurse/Tech; Complete Time: 20:02 [facility] 03/25 19:26 Order name: IV Saline Lock; Complete Time: 20:02 [facility] 03/25 19:26 Order name: Labs collected and sent; Complete Time: 20:02 [facility] 03/25 19:26 Order name: O2 Per Protocol; Complete Time: 20:02 [facility] 03/25 19:26 Order name: O2 Sat Monitoring; Complete Time: 20:02 [facility] EC:28 Rate is 61 beats/min. Rhythm is regular. QRS [place] is Normal. [place] interval is normal. QRS aren interval is normal. QT interval is normal. No Q waves. T waves are Normal. No ST changes noted. Clinical impression: NSR w/ Non-specific ST/T Changes and No evidence of ischemia. Interpreted by me. Reviewed by me. Administered Medications: 20:01 Drug: NS 0.9% IV 1000 ml IV at 1 bolus Per protocol; to be given as a bolus over 60 bm8 minutes Route: IV; Rate: 1 bolus; Site: left upper arm; 21:12 Follow up: Response: No adverse reaction; IV Status: Completed infusion; IV Intake: bm8 1000ml 20:01 Drug: Rocephin IV 1 grams IV at per protocol once; Given slow IV push per pharmacy bm8 instructions Route: IV; Rate: per protocol; Site: left upper arm; 21:12 Follow up: Response: No adverse reaction; IV Status: Completed infusion; IV Intake: [id number] 20:01 Drug: Famotidine IVP 20 mg IVP once; dilute with 10 mL 0.9% NaCl; give over 2 minutes bm8 Route: IVP; Site: right forearm; 21:12 Follow up: Response: No adverse reaction bm8 20:35 Drug: Solu-CORTEF IVP 100 mg IVP once Route: IVP; Site: right forearm; bm8 21:12 Follow up: Response: No adverse reaction bm8 21:12 Drug: D5-1/2 NS IV 1000 ml IV at 100 ml/hr continuous Route: IV; Rate: 100 ml/hr; Site: bm8 left upper arm; 22:04 Follow up: Response: No adverse reaction; IV Status: Infusion continued upon admission bm8 22:51 Drug: Ondansetron IVP 4 mg IVP once; over 2 minutes Route: IVP; Site: right forearm; bm8 22:52 Follow up: Response: No adverse reaction bm8 22:51 Drug: Potassium PO Effervescent Tablet 25 mEq PO once; dissolve in 4 ounces of water or bm8 juice Route: PO; 22:52 Follow up: Response: No adverse reaction bm8 22:52 Drug: fentaNYL (PF) IVP 25 mcg IVP once Route: IVP; Site: right forearm; bm8 22:52 Follow up: Response: No adverse reaction bm8 22:52 Drug: fentaNYL (PF) IVP 25 mcg IVP once Route: IVP; Site: right forearm; bm8 22:52 Follow up: Response: No adverse reaction bm8 Disposition Summary: 03/25/24 20:53 Hospitalization Ordered Notes: Hospitalization Status: Inpatient Admission aren Provider: Prince aren Ibarra Location: Telemetry/MedSurg (Inpatient) aren Condition: Fair aren Problem: new aren Symptoms: have improved aren Bed/Room Type: Standard aren Room Assignment: 224(03/25/24 21:49) vk Diagnosis - Syncope Near aren - Fall on same level, unspecified aren - Unspecified kidney failure - insufficency aren - Adverse effect of insulin and oral hypoglycemic [antidiabetic] drugs aren - Hypoglycemia, unspecified aren - Hypotension, unspecified aren - Hypokalemia arne Forms: - Medication Reconciliation Form aren - SBAR form aren - Leadership Thank You Letter aren Signatures: Dispatcher [employer] EDMS Naveen Cunningham MD MD cha Kruse, Vivian vk McDonald, Brad, RN RN bm8 Corrections: (The following items were deleted from the chart) 19:27 19:27 BASIC METABOLIC PANEL+C.LAB.BRZ ordered. EDMS EDMS 19:27 19:27 CBC+H.LAB.BRZ ordered. EDMS EDMS 19:27 19:27 HEPATIC FUNCTION+C.LAB.BRZ ordered. EDMS EDMS 19:27 19:27 MAGNESIUM+C.LAB.BRZ ordered. EDMS EDMS 19:27 19:27 PROBNP+C.LAB.BRZ ordered. EDMS EDMS 19:27 19:27 PROTIME (+INR)+COAG.LAB.BRZ ordered. EDMS EDMS 19:27 19:27 Troponin High Sensitivity+C.LAB.BRZ ordered. EDMS EDMS 19:27 19:27 LIPASE+C.LAB.BRZ ordered. EDMS EDMS 19:27 19:27 Urinalysis+U.LAB.BRZ ordered. EDMS EDMS 19:27 19:27 Influenza Screen (A \T\ B)+BA.LAB.BRZ ordered. EDMS EDMS 19:27 19:27 Group A Streptococcus Rapid Sc+BA.LAB.BRZ ordered. EDMS EDMS 19:27 19:27 SARS-COV-2 Antigen Rapid+I.LAB.BRZ ordered. EDMS EDMS 19:27 19:27 BLOOD CULTURE*+BA.LAB.BRZ ordered. EDMS EDMS 19:27 19:27 LACTATE+C.LAB.BRZ ordered. EDMS EDMS 19:27 19:27 Knee Right 3 View+RAD.RAD.BRZ ordered. EDMS EDMS 20:07 19:27 Head C Spine Cap Wo Con+CT.RAD.BRZ ordered. EDMS EDMS 21:49 20:53 aren vk
[2024-03-25] MEDS ORDERED: D5 0.45 NS 1,000 ML IV ONE (21:03)
[2024-03-25] MEDS: POTASSIUM CL SA 10 MEQ TAB PO ONE (21:29)
--- NOTE | 2024-03-25 21:42 | P.HP ---
Certification for Inpatient Patient admitted to: Observation With expected LOS: <2 Midnights Practitioner: I am a practitioner with admitting privileges, knowledge of patient current condition, hospital course, and medical plan of care. Services: Services provided to patient in accordance with Admission requirements found in Title 42 Section 412.3 of the Code of Federal Regulations Patient History Date of Service: 03/25/24 Reason for admission: dizziness History of Present Illness: Patient is a 59-year-old male who is presenting to the ER with chief complaint of pain which occurred after he syncopized. Patient has been experiencing dizziness for the past few days. He has a history of type 1 diabetes and is on scheduled insulin. However, due to multiple preoccupations recently including taking care of her who has undergone double amputations and was recently transitioned to hospice, patient has not had much time to eat regularly. He has had several episodes of dizziness. He will check his blood sugar which will be over 300 except for today when his blood glucose read was in the 40s. Allergies No Known Allergies Allergy (Verified 04/12/23 06:04) Home Medications: Atorvastatin Calcium [Lipitor] 80 mg PO BEDTIME 11/20/23 Carvedilol [Coreg] 12.5 mg PO BID 11/20/23 Clopidogrel Bisulfate [Plavix*] 75 mg PO DAILY 11/20/23 Doxepin HCl 50 mg PO DAILY 11/20/23 Ferrous Sulfate 325 mg PO SEECOM 11/20/23 Folic Acid 1 mg PO DAILY 11/20/23 Aspirin [Aspirin EC 81 MG] 81 mg PO DAILY 30 Days #30 tab 12/05/23 Ensure Max Protein 330 ml PO BID can 12/05/23 OLANZapine [Zyprexa*] 5 mg PO BID 5 Days #10 tab 12/05/23 - Past Medical/Surgical History Diabetic: Yes -: Hypertension -: Diabetes mellitus type 2 insulin dependent -: CAD with prior stent -: Hyperlipidemia -: Diabetic neuropathy -: Obesity -: Sleep apnea noncompliant -: CVA -: Chronic diastolic congestive heart failure -: Stent placement x5 -: back surgery -: ble vascular sx -: Appendectomy -: Multiple debridement left great toe -: cabg 02/03/23-2v Psychosocial/ Personal History: Patient is - Family History Father -: Heart disease, Diabetes Mother -: Heart disease - Social History Alcohol use: No CD- Drugs: No Caffeine use: No Physical Examination - Physical Exam General: In no apparent distress HEENT: Atraumatic, Normocephalic Respiratory: Clear to auscultation bilaterally Cardiovascular: No edema, Normal pulses, Regular rate/rhythm, Normal S1 S2 Neurological: Normal speech - Studies Laboratory Data (last 24 hrs) 03/25/24 03/25/24 03/25/24 19:45 19:45 19:45 WBC 6.70 Hgb 12.2 L Hct 37.3 L Plt Count 307 PT 11.7 INR 1.05 Sodium 137 Potassium 3.1 L BUN 45 H Creatinine 1.65 H Glucose 63 L Magnesium 1.9 Total Bilirubin 0.8 AST 71 H ALT 61 Alkaline Phosphatase 210 H Lipase 31 Microbiology Data (last 24 hrs): 03/25/24 19:45 Nasopharnyx Influenza Type A Antigen Screen - Final 03/25/24 19:45 Nasopharnyx Influenza Type B Antigen Screen - Final 03/25/24 19:45 Throat Group A Streptococcus Rapid Screen - Final Assessment and Plan - Problems (Diagnosis) (1) Syncope Current Visit: Yes Status: Acute (2) Dizziness Current Visit: Yes Status: Acute (3) Type 2 diabetes mellitus with hypoglycemia Current Visit: No Status: Acute (4) Essential (primary) hypertension Current Visit: No Status: Chronic (5) Hyperlipidemia Current Visit: No Status: Chronic Qualifiers: (6) Peripheral vascular disease due to secondary diabetes Current Visit: No Status: Chronic (7) Hypokalemia Current Visit: Yes Status: Acute (8) KATIA (acute kidney injury) Current Visit: Yes Status: Acute - Plan Assessment This is a 59-year-old male who is being admitted to the hospital for evaluation of hypotension, hypoglycemia and near syncope. Patient has a known history of diabetes mellitus. His appetite has been poor recently due to preoccupation ongoing care of his , who has just been made hospice recently. Patient blood glucose here is 44. His mental status is intact. Hypoglycemia Near syncope Hypotension KATIA Diabetes mellitus with hypoglycemia Coronary disease status post CABG x 2 CVA Plan: Will admit under observation with telemetry This is most likely dizziness/near syncope from hypoglycemia. Start patient on dextrose infusion but cautious as CXR was concerning for mild pulmoanry edema/CHF Resume diet STEPAN, IV fluid can be discontinued once BG returns to NL Hold all insulin products Monitor blood pressure TTE Resume home meds upon reconciliation Patient is full code - Advance Directives Does patient have a Living Will: No Does patient have a Durable POA for Healthcare: No
[2024-03-25] MEDS: KCL 20 MEQ/100 mL IVPB 20 MEQ/100 ML BAG IV SCH (22:00)
[2024-03-25] MEDS: D5 0.45 NS 1,000 ML IV SCH (22:00)
[2024-03-25 22:34] LABS: Specific Gravity 1.013 (1.005-1.030); Sqamous Epithelial None Seen /HPF (None Seen); Urine Bacteria None Seen /HPF (<20); Urine Bilirubin NEGATIVE (Negative); Urine Blood Negative (Negative); Urine Clarity Clear (Clear); Urine Color Colorless (Yellow); Urine Culture Reflex Order NOT NEEDED; Urine Glucose NEGATIVE (Negative); Urine Ketones NEGATIVE (Negative); Urine Microscopic Reflex YN ORDER UMIC; Urine Nitrite NEGATIVE (Negative); Urine Protein NEGATIVE (Negative); Urine RBC <5 /HPF (None Seen); Urine Urobilinogen Normal (Normal); Urine WBC <5 /HPF (<5)
[2024-03-25] MEDS ORDERED: POTASSIUM 25 MEQ EFFERV TAB ONE (22:46)
[2024-03-25] MEDS ORDERED: ONDANSETRON 4 MG/2 ML VIAL ONE (22:46)
[2024-03-25] MEDS ORDERED: FENTANYL CITR 100 MCG/2 ML ONE (22:46)
[2024-03-26 00:04] LABS: Magnesium 1.9 mg/dL (1.6-2.4); Phosphorus 2.8 mg/dL (2.5-4.9)
[2024-03-26] MEDS: NA CHLORIDE 0.9% 500 ML ONE (00:05)
[2024-03-26] MEDS: CODEINE 30MG/APAP 300MG TAB PO PRN (00:13)
[2024-03-26] MEDS: POTASSIUM CL SA 10 MEQ TAB PO ONE (01:00)
[2024-03-26 01:38] LABS: Specific Gravity 1.014 (1.005-1.030); Sqamous Epithelial None Seen /HPF (None Seen); Urine Bacteria None Seen /HPF (<20); Urine Bilirubin NEGATIVE (Negative); Urine Blood Negative (Negative); Urine Clarity Clear (Clear); Urine Color Colorless (Yellow); Urine Culture Reflex Order NOT NEEDED; Urine Glucose TRACE (Negative); Urine Ketones NEGATIVE (Negative); Urine Microscopic Reflex YN ORDER UMIC; Urine Nitrite NEGATIVE (Negative); Urine Protein NEGATIVE (Negative); Urine RBC <5 /HPF (None Seen); Urine Urobilinogen Normal (Normal); Urine WBC <5 /HPF (<5)
[2024-03-26] MEDS: HYDROMORPHONE HCL 1 MG/ML INJ IV ONE ×2 (01:41→04:58)
[2024-03-26 04:33] LABS: Absolute Lymphocytes (CBC) 0.8 K/uL (0.7-4.9); Absolute Monocytes 0.4 K/uL (0.1-1.3); Absolute Neutrophil 7.9 K/uL (1.8-8.0); Basophils % 0.5 % (0-1.3); Eosinophils % 0.1 % (0-4.4); MCH 25.1 pg (27.0-35.0); MCHC 33.4 g/dL (32.0-36.0); MCV 75.3 fL (80-100); MPV 7.8 fL (7.6-11.3); Monocytes % 4.2 % (3.3-12.3); Neutrophils % 86.2 % (41.7-73.7); Nucleated Red Blood Cells % 0.1 % (0-0); Platelets 262 thou/uL (152-406); RBC Red Blood Cell Count 4.38 M/uL (4.33-5.43); Red Cell Distribution Width 17.6 % (12.1-15.2)
[2024-03-26 04:43] LABS: Anion Gap 7.2 mEq/L (5.0-15.0); Potassium 4.2 mEq/L (3.5-5.1)
[2024-03-26 05:16] LABS: Anisocytosis SLIGHT; Blood Morphology Comment NOTED (NOT SEEN); Ovalocytes 1+; Platelet Estimate ADEQ; Poikilocytosis 1+; White Blood Cell Scan OK (OK)
--- NOTE | 2024-03-26 08:24 | P.CNS ---
Date of Consult: 03/26/24 Reason for Consult: KATIA Requesting Physician: Taco Andujar Chief Complaint: dizziness History of Present Illness: 59M w/ PMHx of hypertension, DM type II, hyperlipidemia, CAD status post CABG status post PCI, chronic diastolic heart failure, CVA, obesity, & CAMILLA, CVA, who p/w presyncope & hypoglycemia. he reports feeling dizzy for the past few days. Blood sugar was low at 40 mg/dL prior to admission. He is referred to nephr ology for KATIA. SCr 1.7 on adm, at 1.5 today. Baseline serum creatinine is 0.9- 1.0. He reports history of HD-dependent KATIA in 2022. BNP is elevated at 678. Allergies No Known Allergies Allergy (Verified 03/25/24 23:48) Home Medications: Atorvastatin Calcium [Lipitor] 80 mg PO BEDTIME 11/20/23 Carvedilol [Coreg] 12.5 mg PO BID 11/20/23 Clopidogrel Bisulfate [Plavix*] 75 mg PO DAILY 11/20/23 Aspirin [Aspirin EC 81 MG] 81 mg PO DAILY 30 Days #30 tab 12/05/23 Escitalopram [Lexapro] 20 mg PO DAILY 03/26/24 Furosemide [Lasix] 80 mg PO DAILY 03/26/24 Gabapentin 800 mg PO TID 03/26/24 Insulin NPH Hum/Reg Insulin Hm [Humulin 70-30 Vial] 43 unit SQ BID 03/26/24 Insulin Regular, Human [Humulin R U-500 Kwikpen] 0 unit SQ TID 03/26/24 Quetiapine [Seroquel] 100 mg PO BEDTIME 03/26/24 Tamsulosin [Flomax] 0.4 mg PO DAILY 03/26/24 buPROPion HCL [Bupropion Xl] 150 mg PO DAILY 03/26/24 - Past Medical/Surgical History Diabetic: Yes -: Hypertension -: Diabetes mellitus type 2 insulin dependent -: CAD with prior stent -: Hyperlipidemia -: Diabetic neuropathy -: Obesity -: Sleep apnea noncompliant -: CVA -: Chronic diastolic congestive heart failure -: Stent placement x5 -: back surgery -: ble vascular sx -: Appendectomy -: Multiple debridement left great toe -: cabg 02/03/23-2v Psychosocial/ Personal History: Patient is - Family History Father Medical History: Heart disease, Diabetes Mother Medical History: Heart disease - Social History Smoking Status: Unknown if ever smoked Alcohol use: No CD- Drugs: No Caffeine use: No Place of Residence: Home Review of Systems General: Weakness Eyes: Unremarkable ENT: Unremarkable Respiratory: Unremarkable Cardiovascular: Light Headedness Gastrointestinal: Unremarkable Genitourinary: Unremarkable Musculoskeletal: Unremarkable Integumentary: Unremarkable Neurological: Unremarkable Lymphatics: Unremarkable Physical Examination Temp Pulse Resp BP Pulse Ox 98.7 F 86 18 118/59 L 95 03/26/24 04:00 03/26/24 04:00 03/26/24 04:00 03/26/24 04:00 03/26/24 04:00 General: Other (chronically ill-appearing) HEENT: Atraumatic, Normocephalic Neck: Supple, JVD not distended Respiratory: Other (symmetric chest expansion) Cardiovascular: No rubs, No murmurs Gastrointestinal: Soft and benign, No rebound Musculoskeletal: No clubbing Integumentary: No warmth Neurological: Normal speech, Normal tone Lymphatics: No axilla or inguinal lymphadenopathy Urinary: Other (No bladder distention) External genitalia: Deferred Rectal: Deferred Laboratory Data (last 24 hrs) 03/25/24 03/25/24 03/25/24 19:45 19:45 19:45 WBC 6.70 Hgb 12.2 L Hct 37.3 L Plt Count 307 PT 11.7 INR 1.05 Sodium 137 Potassium 3.1 L BUN 45 H Creatinine 1.65 H Glucose 63 L Magnesium 1.9 Total Bilirubin 0.8 AST 71 H ALT 61 Alkaline Phosphatase 210 H Lipase 31 Conclusions/Impression: # KATIA likely 2/2 prerenal state SCr 1.7 on adm, at 1.5 today Baseline serum creatinine 0.9-1.0 Hx of HD-dependent KATIA in 2022 per pt report Urinalysis showed no proteinuria, no hematuria, no pyuria Urine chemistry showed prerenal state No overt proteinuria, 0.15 g on random UPCR CPK WNL, no rhabdomyolysis BNP elevated KUB unremarkable on CT Received IVF [place] by mouth fluid intake at least 2 L per day Glycemic control IVF PRN Monitor renal panel # DM2 Mngt per primary team # Presyncope, dizziness likely 2/2 hypoglycemia Glycemic control Monitor orthostatic vitals # Htn Continue current medication regimen # HLD Statin # CAD s/p CABG s/p PCI, chronic diastolic heart failure, CVA Continue cardioprudent medications # Obesity, CAMILLA Per other services
[2024-03-26] MEDS: ENOXAPARIN 40 MG/0.4 ML SQ SCH (08:32)
[2024-03-26] MEDS ORDERED: D50W 25 GM/50 ML SYRINGE IV PRN (08:39)
[2024-03-26] MEDS ORDERED: GLUCAGON 1 MG/VIAL IM PRN (08:39)
[2024-03-26] MEDS: ASPIRIN EC 81 MG TAB PO SCH (09:25)
[2024-03-26] MEDS: BUPROPION HCL XL 150 MG TAB PO SCH (09:25)
[2024-03-26] MEDS: TAMSULOSIN 0.4 MG SR CAP PO SCH (09:25)
[2024-03-26] MEDS: CLOPIDOGREL 75 MG TABLET PO SCH (09:25)
[2024-03-26] MEDS: INSULIN 70/30 100 UNITS/ML SQ SCH (09:26)
[2024-03-26] MEDS ORDERED: ACETAMINOPHEN 500 MG TAB PO PRN (09:32)
--- NOTE | 2024-03-26 09:34 | P.PN ---
Subjective Date of Service: 03/26/24 Chief Complaint: dizziness Subjective: Improving (Patient admitted with fall dizziness vertigo that started on and his kitchen ambulance was called he uses a walker is little unstable patient has neuropathy from his diabetes history of falls so hypogl ycemic apparently took his insulin and did not eat) Review of Systems 10-point ROS is otherwise unremarkable General: Weakness Physical Examination - Vital Signs Temperature: 99.1 F Blood Pressure: 145/65 Pulse: 90 Respirations: 16 Pulse Ox (%): 96 - Physical Exam General: Alert, In no apparent distress, Oriented x3 Respiratory: Clear to auscultation bilaterally Cardiovascular: No edema, Normal pulses, Regular rate/rhythm - Studies Laboratory Data (last 24 hrs) 03/25/24 03/25/24 03/25/24 19:45 19:45 19:45 WBC 6.70 Hgb 12.2 L Hct 37.3 L Plt Count 307 PT 11.7 INR 1.05 Sodium 137 Potassium 3.1 L BUN 45 H Creatinine 1.65 H Glucose 63 L Magnesium 1.9 Total Bilirubin 0.8 AST 71 H ALT 61 Alkaline Phosphatase 210 H Lipase 31 Microbiology Data (last 24 hrs): 03/25/24 19:45 Nasopharnyx Influenza Type A Antigen Screen - Final 03/25/24 19:45 Nasopharnyx Influenza Type B Antigen Screen - Final 03/25/24 19:45 Throat Group A Streptococcus Rapid Screen - Final Assessment And Plan - Current Problems (Diagnosis) (1) Syncope Current Visit: Yes Status: Acute Plan: Patient is 59 years of age admitted with a syncopal attack he has been having some dizziness vertigo had fallen he ambulates with a walker has peripheral neuropathy diabetes patient was also hypoglycemic apparently took his insulin and did not eat blood pressure is low according to the nurses when he stands up will stop all his antihypertensives for now he is on Lasix and Coreg at home ambulate for orthostatic changes Aminofen for pain labs reviewed has chronic renal insufficiency no cranial nerve reported no weakness of his extremities able to eat and drink facial weakness reported patient is seeing Dr. Wen as an outpatient and is scheduled to have a chemical stress test done place patient on telemetry Qualifiers: Encounter type: subsequent encounter
[2024-03-26] MEDS: GABAPENTIN 400 MG CAP PO SCH (09:43)
[2024-03-26] MEDS: ONDANSETRON 4 MG/2 ML VIAL IV PRN (09:43)
[2024-03-26] MEDS: ESCITALOPRAM 20 MG TAB PO SCH (09:43)
[2024-03-26] MEDS: MORPHINE 2 MG/ML SYR IV PRN (11:34)
[2024-03-26] MEDS: INSULIN REGULAR (HUMAN) 100 UNIT/ML SQ SCH (12:15)
[2024-03-26 17:30] LABS: UR SODIUM < 15 mmol/L (27-287)
[2024-03-26 17:45] LABS: Urine Protein/Creatinine Ratio 0.15 ratio (<0.15)
[2024-03-26] MEDS: QUETIAPINE 100MG TAB PO SCH (20:48)
[2024-03-26] MEDS: ATORVASTATIN 80 MG TAB PO SCH (20:48)
[2024-03-26] MEDS: TRAMADOL 37.5mg/APAP 325mg PER TAB PO PRN (20:58)
[2024-03-27 09:27] LABS: Absolute Basophils 0.1 K/uL (0-0.5); Absolute Eosinophils 0.4 K/uL (0-0.5); Absolute Lymphocytes (CBC) 1.8 K/uL (0.7-4.9); Absolute Monocytes 0.6 K/uL (0.1-1.3); Absolute Neutrophil 5.3 K/uL (1.8-8.0); Basophils % 0.6 % (0-1.3); Eosinophils % 5.2 % (0-4.4); Hematocrit 35.1 % (39.6-49.0); Hemoglobin 11.2 g/dL (13.6-17.9); Lymphocytes % 21.6 % (15.3-44.8); MCH 24.6 pg (27.0-35.0); MCHC 32.1 g/dL (32.0-36.0); MCV 76.8 fL (80-100); MPV 7.9 fL (7.6-11.3); Monocytes % 7.9 % (3.3-12.3); Neutrophils % 64.7 % (41.7-73.7); Nucleated Red Blood Cells % 0.1 % (0-0); Platelets 252 thou/uL (152-406); RBC Red Blood Cell Count 4.57 M/uL (4.33-5.43); Red Cell Distribution Width 17.8 % (12.1-15.2)
[2024-03-27] MEDS: FLU (Fluarix Triv) TS24-25(6MOS UP)/PF 45 MCG/0.5 ML Syringe IM ONE (09:32)
[2024-03-27 09:41] LABS: Albumin 3.5 g/dL (3.4-5.0); Anion Gap 5.3 mEq/L (5.0-15.0); Phosphorus 3.8 mg/dL (2.5-4.9); Potassium 4.3 mEq/L (3.5-5.1)
--- NOTE | 2024-03-27 12:43 | ECHO ---
HEIGHT: 5 ft 11 in WEIGHT: 216 lb 11.2 oz DATE OF STUDY: 03/27/[address]: Prince Rodrigo Ibarra MD 2-DIMENSIONAL: YES M.MODE: YES DOPPLER: YES COLOR FLOW: YES TDS: YES PORTABLE: YES DEFINITY: BUBBLE STUDY: DIAGNOSIS: CONGESTIVE HEART FAILURE CARDIAC HISTORY: CATHERIZATION: SURGERY: YES PROSTHETIC VALVE: PACEMAKER: MEASUREMENTS (cm) DIASTOLIC (NORMALS) SYSTOLIC (NORMALS) IVSd 1.0 (0.6-1.2) LA Diam 3.6 (1.9-4.0) LVEF 45-50% LVIDd 5.1 (3.5-5.7) LVIDs 3.8 (2.0-3.5) %FS 26% LVPWd 1.3 (0.6-1.2) Ao Diam 2.8 (2.0-3.7) 2 DIMENSIONAL ASSESSMENT: RIGHT ATRIUM: NORMAL LEFT ATRIUM: NORMAL RIGHT VENTRICLE: NORMAL LEFT VENTRICLE: NORMAL TRICUSPID VALVE: TRACE TRICUSPID REGURGITATION MITRAL VALVE: MILD MITRAL REGURGITATION PULMONIC VALVE: NORMAL AORTIC VALVE: NORMAL PERICARDIAL EFFUSION: NONE AORTIC ROOT: NORMAL LEFT VENTRICULAR WALL MOTION: MILD GLOBAL HYPOKINESIS DOPPLER/COLOR FLOW: NORMAL COMMENTS: 1. MILDLY REDUCED LEFT VENTRICULAR SYSTOLIC FUNCTION, EJECTION FRACTION 45-50%, MILD GLOBAL HYPOKINESIS TECHNOLOGIST: HERIBERTO JERONIMO
--- NOTE | 2024-03-27 20:32 | RAD REPORT ---
EXAMINATION: MRI BRAIN WITHOUT CONTRAST CLINICAL INDICATION: Male, 59 years old.[facility] MAIN N Dizziness TECHNIQUE: Multiplanar multisequence MR images of the brain were obtained without intravenous contras t. Unless otherwise specified, incidental findings do not require dedicated imaging follow-up. COMPARISON: Noncontrast head CT 03/25/2024. FINDINGS: INTRACRANIAL: Midline structures are unremarkable. Diffusion-weighted images show no acute or early subacute infarction. Minimal periventricular T-2/FLAIR hyperintensities, nonspecific, likely representing chronic microvascular ischemic changes. There is no mass effect or midline shift. No abn ormal extraaxial fluid collection. VASCULATURE: Normal signal voids in the larger intracranial arteries and dural venous sinuses. SINUSES: The paranasal sinuses and mastoid air cells are predominantly clear. BONE: The marrow signal pattern is within normal limits. IMPRESSION: No significant intracranial abnormalities.
[2024-03-27] MEDS: MORPHINE 2 MG/ML SYR IV PRN (20:42)
--- NOTE | 2024-03-27 22:05 | P.PN ---
Date of Service: 03/27/24 Subjective Improving (Patient admitted with fall dizziness, PT to work with patient Review of Systems 10-point ROS is otherwise unremarkable General: Weakness Physical Examination - Vital Signs reviewed - Physical Exam General: Alert, In no apparent distress, Oriented x3 Respiratory: Clear to auscultation bilaterally Cardiovascular: No edema, Normal pulses, Regular rate/rhythm Extremities: lower ext weakness, Skin: Normal skin turgor, no rash, Neuro: No focal motor deficit. Normal speech Psychiatry: Awake,stable mood . Assessment And Plan - Current Problems (Diagnosis) Syncope Dizziness Current Visit: Yes Status: Acute Plan: Patient is 59 years of age admitted with a syncopal attack he has been having some dizziness vertigo had fallen he ambulates with a walker has peripheral neuropathy diabetes patient was also hypoglycemic apparently took his insulin and did not eat blood pressure is low according to the nurses when he stands up will stop all his antihypertensives for now he is on Lasix and Coreg at home ambulate for orthostatic changes Aminofen for pain labs reviewed has chronic renal insufficiency no cranial nerve reported no weakness of his extremities able to eat and drink facial weakness reported patient is seeing Dr. Bonds'marva as an outpatient and is scheduled to have a chemical stress test done place patient on telemetry MRI brain, ECHO ordered PT eval for generalized weakness DME pt request RW, Elevated toilet seat, he refused HHC, PT MRI brain no acute abnormalities Type 2 diabetes mellitus with hypoglycemia Current Visit: No Status: Acute Essential (primary) hypertension resume approp home meds Current Visit: No Status: Chronic Hyperlipidemia Current Visit: No Status: Chronic Qualifiers: Peripheral vascular disease due to secondary diabetes Current Visit: No Status: Chronic Hypokalemia Current Visit: Yes Status: Acute trend electrolytes, replace prn KATIA (acute kidney injury) Current Visit: Yes Status: Acute - Advance Directives Does patient have a Living Will: No Does patient have a Durable POA for Healthcare: No time with patient 30 min
[2024-03-28 04:12] VITALS: O2SAT 95
--- NOTE | 2024-03-28 06:30 | PN ---
Date of Progress Note: 03/27/2024 Chief Complaint: Acute kidney injury. History Of Present Illness: The patient is a 59-year-old man with past medical history of hypertensi on, diabetes mellitus type 2, hyperlipidemia, coronary artery disease, status post CABG, , chronic diastolic congestive heart failure, CVA, obesity, obstructive sleep apnea, presync ope, hypoglycemia. The patient was feeling dizzy and lightheaded over the last few days prior to adm ission. Blood glucose was trending down and on admission, he has severe hypoglycemia. Blood glucose was . Serum creatinine level on admission was 1.7, it is gradually improving to 1.5. The patient has nonoliguric urine output. BNP is up to 678. Previous history, the patient had acute ki dney injury back in 2022 and required hemodialysis. Currently, he has nonoliguric urine output. Review of Systems: Constitutional: Denies fever, chills. Eyes: Denies vision changes. Ears, Nose, Mouth, and Throat: Denies sore throat, earache. Respiratory: Has shortness of breath with activities. GI: Denies nausea, vomiting. : Denies dysuria, hematuria. Musculoskeletal: Denies generalized weakness, muscle spasm. Neuro: Complains of weakness chronically. Denies syncope. All other systems reviewed and all negative. Past Medical History: Hypertension, diabetes mellitus insulin dependent, coronary artery disease wit h prior stents, hyperlipidemia, diabetic neuropathy, obesity, sleep apnea, CVA, chronic diastolic con gestive heart failure, stent placement, back surgery, appendectomy, multiple debridement of the left great toe, CABG on February 01, 2023, 2-vessel disease. Social History: Denies tobacco, denies alcohol, denies drugs. Family History: Mother had diabetes and heart disease. Father had diabetes. Impression And Plan: 1.Acute kidney injury secondary to prerenal state. Serum creatinine level today is up to 1.7, previ ous baseline is less than 1.5. Continue to monitor renal function. Continue to check urine chemistr ies. The patient does not have with interstitial kidney disease, glomerulopathy, diabetes mellitus. Continue per primary team. 2.Presyncope with dizziness. Adjust blood pressure medication and continue to encourage low carb diet. 3.Hypertension. Continue current medication regimen. 4.Hyperlipidemia. Continue statin. 5.Coronary artery disease, status post CABG, chronic diastolic congestive heart failure, . Continue to monitor blood pressure and continue telemetry. MARY Voice ID: [id number] Report ID: [id number]
[2024-03-28 07:24] VITALS: BMI 29.1
[2024-03-28 09:11] VITALS: BP 159/94; TEMP 97
[2024-03-28 09:41] LABS: Absolute Eosinophils 0.3 K/uL (0-0.5); Absolute Monocytes 0.9 K/uL (0.1-1.3); Absolute Neutrophil 6.1 K/uL (1.8-8.0); Basophils % 0.6 % (0-1.3); Eosinophils % 3.7 % (0-4.4); Hemoglobin 10.7 g/dL (13.6-17.9); Lymphocytes % 12.4 % (15.3-44.8); MCH 24.2 pg (27.0-35.0); MCHC 31.3 g/dL (32.0-36.0); MCV 77.4 fL (80-100); MPV 8.1 fL (7.6-11.3); Monocytes % 10.6 % (3.3-12.3); Neutrophils % 72.7 % (41.7-73.7); Nucleated Red Blood Cells % 0.1 % (0-0); Platelets 224 thou/uL (152-406); RBC Red Blood Cell Count 4.39 M/uL (4.33-5.43); Red Cell Distribution Width 18.1 % (12.1-15.2)
[2024-03-28 09:47] LABS: Albumin 3.2 g/dL (3.4-5.0); Anion Gap 9.2 mEq/L (5.0-15.0); Phosphorus 4.1 mg/dL (2.5-4.9); Potassium 4.2 mEq/L (3.5-5.1)
--- NOTE | 2024-03-28 10:19 | P.DS ---
Admission Date: 03/27/24 Discharge Date: 03/28/24 Reason for Admission: dizziness Brief History of Present Illness: Patient is a 59-year-old male who is presenting to the ER with chief complaint of pain which occurred after he syncopized. Patient has been experiencing dizziness for the past few days. He has a history of type 1 diabetes and is on scheduled insulin. However, due to multiple preoccupations recently including taking care of her who has undergone double amputations and was recently transitioned to hospice, patient has not had much time to eat regularly. He has had several episodes of dizziness. He will check his blood sugar which will be over 300 except for today when his blood glucose read was in the 40s. - Physical Exam General: In no apparent distress HEENT: Atraumatic, Normocephalic Respiratory: Clear to auscultation bilaterally Cardiovascular: No edema, Normal pulses, Regular rate/rhythm, Normal S1 S2 Neurological: Normal speech Hospital Course: 59-year-old male who is presenting to the ER with chief complaint of pain which occurred after he syncopized. Patient has been experiencing dizziness for the past few days. He has a history of type 1 diabetes and is on scheduled insulin. However, due to multiple preoccupations recently including taking care of her who has undergone double amputations and was recently transitioned to hospice, patient has not had much time to eat regularly. He has had several episodes of dizziness. He will check his blood sugar which will be over 300 except for today when his blood glucose read was in the 40s. Blood glucose stabilized, echo ordered normal, patient ambulated with physical therapy, new rolling walker, bedside commode/elevated toilet seat ordered for patient. Patient refused PT with home health. Tolerating diet, stable to discharge home, follow-up with PCP in 1 week Assessment Dizziness-, echo normal, MRI of the brain no acute abnormality, Diabetes type 2 with hypoglycemia, check Accu-Cheks 4 times daily, Hypokalemia, electrolytes replaced as needed, Hypertension, hyperlipidemia resume home blood pressure medications Bilateral knee pain, bilateral knee x-rays-no acute fracture-Small suprapatellar joint effusion. Continue home medicines as previously prescribed GOAL: Clear understanding of disease process INSTRUCTIONS: Physician Discharge Instructions: -Follow-up with PCP in 1 to 2 weeks -Please call Dr. Hull at [phone] if any questions regarding hospital stay -Please call nursing station at [phone] if any nursing or medication questions -Return to the emergency room if symptoms worsen Diet: ADA, low sodium Activity: Fall precautions Vital Signs/Physical Exam: Temp Pulse Resp BP Pulse Ox 97 F 78 16 159/94 H 98 03/28/24 08:00 03/28/24 08:00 03/28/24 08:00 03/28/24 08:00 03/28/24 08:00 Laboratory Data at Discharge: WBC 8.40 thou/uL (4.3-10.9) 03/28/24 09:23 Hgb 10.7 g/dL (13.6-17.9) L 03/28/24 09:23 Hct 34.0 % (39.6-49.0) L 03/28/24 09:23 Plt Count 224 thou/uL (152-406) 03/28/24 09:23 PT 11.7 SECONDS (9.4-12.5) 03/25/24 19:45 INR 1.05 03/25/24 19:45 Sodium 138 mEq/L (136-145) 03/28/24 09:23 Potassium 4.2 mEq/L (3.5-5.1) 03/28/24 09:23 BUN 26 mg/dL (7-18) H 03/28/24 09:23 Creatinine 1.16 mg/dL (0.70-1.30) 03/28/24 09:23 Glucose 234 mg/dL (74-106) H 03/28/24 09:23 Phosphorus 4.1 mg/dL (2.5-4.9) 03/28/24 09:23 Magnesium 2.0 mg/dL (1.6-2.4) 03/28/24 09:23 Total Bilirubin 0.8 mg/dL (0.2-1.0) 03/25/24 19:45 AST 71 U/L (15-37) H 03/25/24 19:45 ALT 61 U/L (16-61) 03/25/24 19:45 Alkaline Phosphatase 210 U/L (45-117) H 03/25/24 19:45 Lipase 31 U/L (13-75) 03/25/24 19:45 Home Medications: Atorvastatin Calcium [Lipitor] 80 mg PO BEDTIME 11/20/23 Carvedilol [Coreg] 12.5 mg PO BID 11/20/23 Clopidogrel Bisulfate [Plavix*] 75 mg PO DAILY 11/20/23 Aspirin [Aspirin EC 81 MG] 81 mg PO DAILY 30 Days #30 tab 12/05/23 Escitalopram [Lexapro] 20 mg PO DAILY 03/26/24 Furosemide [Lasix] 80 mg PO DAILY 03/26/24 Gabapentin 800 mg PO TID 03/26/24 Insulin NPH Hum/Reg Insulin Hm [Humulin 70-30 Vial] 43 unit SQ BID 03/26/24 Insulin Regular, Human [Humulin R U-500 Kwikpen] 0 unit SQ TID 03/26/24 Quetiapine [Seroquel] 100 mg PO BEDTIME 03/26/24 Tamsulosin [Flomax] 0.4 mg PO DAILY 03/26/24 buPROPion HCL [Bupropion Xl] 150 mg PO DAILY 03/26/24 Physician Discharge Instructions: 03/27/24- Orders for rollator (with set and brake) and bedside commode have been sent to: [facility] [address] [facility] [address] [place] [id number] Followup: NONE,NONE [Primary Care Provider] - Adri Antonio MD [ACTIVE - CAN ADMIT] -
--- NOTE | 2024-03-30 12:12 | EKG ---
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
== END 2024-03-28 12:05 | disposition home or self-care (01) | DRG 638 ==
LOC: ER 19:18 → ERHOLD 21:30 → 2ND 22:20 → OBSVTOIN 03-27 17:12
PROVIDERS: ADMIT Internal Medicine; ATTEND Hospitalist
DX: E11.649 Type 2 diabetes mellitus with hypoglycemia without coma (principal); I50.32 Chronic diastolic (congestive) heart failure; I11.0 Hypertensive heart disease with heart failure; N17.9 Acute kidney failure, unspecified; E11.40 Type 2 diabetes mellitus with diabetic neuropathy, unspecified; E11.51 Type 2 diabetes mellitus with diabetic peripheral angiopathy without gangrene; E78.00 Pure hypercholesterolemia, unspecified; E66.9 Obesity, unspecified; E87.6 Hypokalemia; G47.33 Obstructive sleep apnea (adult) (pediatric); I95.9 Hypotension, unspecified; K21.9 Gastro-esophageal reflux disease without esophagitis; N40.0 Benign prostatic hyperplasia without lower urinary tract symptoms; I25.2 Old myocardial infarction; I25.10 Atherosclerotic heart disease of native coronary artery without angina pectoris; T38.3X5A Adverse effect of insulin and oral hypoglycemic [antidiabetic] drugs, initial encounter; Z23 Encounter for immunization; Z79.4 Long term (current) use of insulin; Z95.1 Presence of aortocoronary bypass graft; Z95.5 Presence of coronary angioplasty implant and graft; Z79.82 Long term (current) use of aspirin; Z11.52 Encounter for screening for COVID-19; Z68.20 Body mass index [BMI] 20.0-20.9, adult; Z79.02 Long term (current) use of antithrombotics/antiplatelets; Z90.49 Acquired absence of other specified parts of digestive tract; Z86.73 Personal history of transient ischemic attack (TIA), and cerebral infarction without residual deficits; Z79.899 Other long term (current) drug therapy
CPT/HCPCS: 36415; 70450; 70551; 71045; 71250; 72125; 74176; 80048; 80069; 80076; 81001; 82550; 82570; 82947; 83605; 83690; 83735; 83880; 83935; 83970; 84100; 84132; 84156; 84300; 84484; 85025; 85610; 87040; 87070; 87081; 87804; 87811; 93005; 93306; 96361; 96365; 96375; 97116; 97161; 97530; 99285; G0378; J0696; J1170; J1650; J1720; J1815; J2270; J2405; J3010; J3480; J7030; J7040; J7799

== ENCOUNTER 2024-05-19 19:53 | Inpatient (IN) | payer OTHER ==
[2024-05-19 20:30] LABS: Absolute Basophils 0.1 K/uL (0-0.5); Absolute Eosinophils 0.1 K/uL (0-0.5); Absolute Lymphocytes (CBC) 1.2 K/uL (0.7-4.9); Absolute Monocytes 0.9 K/uL (0.1-1.3); Absolute Neutrophil 6.6 K/uL (1.8-8.0); Basophils % 0.7 % (0-1.3); Eosinophils % 1.2 % (0-4.4); Hematocrit 33.4 % (39.6-49.0); Hemoglobin 10.9 g/dL (13.6-17.9); Lymphocytes % 13.6 % (15.3-44.8); MCHC 32.7 g/dL (32.0-36.0); MCV 76.5 fL (80-100); MPV 6.9 fL (7.6-11.3); Monocytes % 10.6 % (3.3-12.3); Neutrophils % 73.9 % (41.7-73.7); Platelets 257 thou/uL (152-406); RBC Red Blood Cell Count 4.37 M/uL (4.33-5.43); Red Cell Distribution Width 17.6 % (12.1-15.2)
[2024-05-19 20:33] LABS: PT Prothrombin Time 12.4 SECONDS (9.4-12.5); Protime INR 1.11
[2024-05-19] MEDS ORDERED: ONDANSETRON 4 MG/2 ML VIAL ONE (20:33)
[2024-05-19] MEDS ORDERED: MORPHINE 4 MG/ML SYR ONE ×2 (20:34→23:49)
[2024-05-19 20:49] LABS: Albumin 3.2 g/dL (3.4-5.0); Albumin/Globulin Ratio 0.7 (1.1-1.8); Anion Gap 9.5 mEq/L (5.0-15.0); Bilirubin Direct 0.3 mg/dL (0-0.2); Bilirubin Indirect, Calculated 0.9 mg/dL (0.2-0.8); Bilirubin Total 1.2 mg/dL (0.2-1.0); Globulin 4.4 g/dL (2.3-3.5); Magnesium 2.1 mg/dL (1.6-2.4); Potassium 3.5 mEq/L (3.5-5.1); Protein, Total 7.6 g/dL (6.4-8.2); Troponin High Sensitivity 35.9 pg/mL (<58.9)
--- NOTE | 2024-05-19 21:47 | RAD REPORT ---
EXAM: CT CHEST, ABDOMEN AND PELVIS WITHOUT CONTRAST CLINICAL INDICATION: Chest and abdominal pain TECHNIQUE: CT chest, abdomen and pelvis was performed, without IV contrast, as per department protoco l. Axial, sagittal and coronal reconstructions were obtained. One or more of the following dose reduction techniques were used: Automated exposure control, adjustment of the mA and/or kV according to the patient size, and/or iterative reconstruction. Unless otherwise specified, incidental findings do not require dedicated imaging follow-up. The lack of IV and oral contrast limits evaluation of the mediastinum, jimmy, vessels, organs and charissa l. COMPARISON: March 2024 FINDINGS: Mild chronic appearing interstitial opacities within the lungs. Small right pleural effusion. No pericardial effusion. Coronary arterial calcifications are present. Small mediastinal lymph nodes likely reactive in nature. No hilar lymphadenopathy. Liver, pancreas and adrenals grossly normal. Increased density within the gallbladder could represent milk of calcium bile stones. Gallbladder wall does not appear thickened. Splenic granulomata are present. Renal vascular calcifications. No hydronephrosis. [id number] no hernia contains fat. No evidence of diverticulitis. Stranding within the subcutaneous fat left buttocks unchanged IMPRESSION: Stranding within the subcutaneous fat left buttocks unchanged may represent inflammation. No abscess.
--- NOTE | 2024-05-19 21:48 | RAD REPORT ---
Procedure: Chest Single View HISTORY: Chest pain COMPARISON: March 2024 FINDINGS: The lungs appear clear of acute infiltrate. Small right pleural effusion. The heart is mildly to moderately enlarged. Post surgical changes involving the chest. Old rib fractures are present.
--- NOTE | 2024-05-19 23:44 | ER ---
Nurse's Notes [facility] Name: Tripp Webster Age: 59 yrs Sex: Male : 1965 Arrival Date: 05/19/2024 Time: 19:53 Bed 2 Private MD: Diagnosis: Acute on chronic diastolic (congestive) heart failure;Atypical chest pain, acute fall at home, dyspnea on exertion, acute contusion of buttocks and lower spine Presentation: 05/19 19:58 Chief complaint: Patient states: BLOATED STOMACH SINCE YESTERDAY, SHORTNESS OF BREATH, ha1 AND CHEST PAIN. ALSO, WHEN I WAS COMING OUT OF MY HOUSE TO COME HERE I FELL AND HURT MY LOWER BACK. 19:58 Coronavirus screen: Client denies travel out of the [place] in the last 14 days. Ebola ha1 Screen: No symptoms or risks identified at this time. 19:58 Method Of Arrival: Wheelchair ha1 20:04 Chief complaint: Patient states: I feel like I am bloated and its causing me to take bm8 real deep breaths, I also tripped coming out of my house and fell on my butt, now my lower back hurts. 20:04 Coronavirus screen: At this time, the client does not indicate any symptoms associated bm8 with coronavirus-19. Ebola Screen: Patient negative for fever greater than or equal to 101.5 degrees Fahrenheit, and additional compatible Ebola Virus Disease symptoms Patient denies exposure to infectious person. Patient denies travel to an Ebola-affected area in the 21 days before illness onset. No symptoms or risks identified at this time. Initial Sepsis Screen: Does the patient meet any 2 criteria? No. Patient's initial sepsis screen is negative. Does the patient have a suspected source of infection? No. Patient's initial sepsis screen is negative. Risk Assessment: Do you want to hurt yourself or someone else? Patient reports no desire to harm self or others. Onset of symptoms was May 19, 2024 at 12:00. 20:04 Acuity: MIRIAM 2 bm8 Triage Assessment: 20:18 General: Appears in no apparent distress. comfortable, Behavior is calm, cooperative, bm8 appropriate for age. Pain: Complains of pain in coccyx and chest Pain currently is 8 out of 10 on a pain scale. EENT: No signs and/or symptoms were reported regarding the EENT system. Neuro: No deficits noted. Level of Consciousness is awake, alert, obeys commands, Oriented to person, place, time, situation, Appropriate for age. Cardiovascular: Heart tones S1 S2 present Capillary refill < 3 seconds in bilateral fingers Patient's skin is warm and dry. Cardiovascular: Reports chest pain. Respiratory: Reports shortness of breath Respiratory: Reports shortness of breath at rest Airway is patent Trachea midline Respiratory effort is even, unlabored, Respiratory pattern is regular, symmetrical, Breath sounds are clear bilaterally. Onset: The symptoms/episode began/occurred this morning, the patient has mild shortness of breath. GI:. GI: Reports bloating. : No signs and/or symptoms were reported regarding the genitourinary system. Derm: No signs and/or symptoms reported regarding the dermatologic system. Musculoskeletal: No signs and/or symptoms reported regarding the musculoskeletal system. Historical: - Allergies: 20:18 No Known Allergies; bm8 - Home Meds: 20:18 amlodipine 5 mg tab 1 tab twice a day [Active]; aspirin 81 mg oral capsule 1 cap daily bm8 [Active]; atorvastatin 80 mg Oral tab 1 tab once daily [Active]; carvedilol 12.5 mg Oral tab 1 tab 2 times per day [Active]; escitalopram oxalate 20 mg Oral tab 1 tab once daily [Active]; furosemide 80 mg Oral tab 1 tab once daily [Active]; gabapentin 600 mg Oral tab 1 tab four times a day [Active]; humalin 70/30 225 units daily [Active]; hydrocodone-acetaminophen 7.5-325 mg Oral tab 1 tab twice a day [Active]; Novolin R Sub-Q [Active]; Plavix 75 mg Oral tab 1 tab twice a day [Active]; tramadol 50 mg Oral tab 1 tab twice a day [Active]; - PMHx: 20:18 BPH; CAD; depressive disorder; Diabetes - IDDM; GERD; Hypercholesterolemia; bm8 Hypertension; Myocardial infarction; neuropathy; - PSHx: 20:18 cardiac stents; Coronary artery bypass graft; toe amputation; bm8 - Immunization history:: Adult Immunizations up to date. - Infectious Disease History:: Denies. - Social history:: Smoking status: Patient denies any tobacco usage or history of. - Family history:: not pertinent. Screenin:22 [facility] ED Fall Risk Assessment (Adult) History of falling in the last 3 months, bm8 including since admission Yes- single mechanical fall (1 pt) Confusion or Disorientation No (0 pts) Intoxicated or Sedated No (0 pts) Impaired Gait No (0 pts) Mobility Assist Device Used No (0 pt) Altered Elimination No (0 pt) Score/Fall Risk Level 0 - 2 = Low Risk Oriented to surroundings, Maintained a safe environment, Educated pt \T\ family on fall prevention, incl call for assistance when getting out of bed, Assessed \T\ reinforced patient's understanding of fall precautions, Hourly rounding (assess needs \T\ fall precautionary measures) done, Used ambulatory aids as needed (educated on \T\ assisted with), Used gait belt as appropriate. Abuse screen: Denies threats or abuse. Nutritional screening: No deficits noted. Tuberculosis screening: No symptoms or risk factors identified. Assessment: 20:22 General: see triage assessment. bm8 20:24 Cardiovascular: Rhythm is sinus rhythm. ha1 21:11 Reassessment: Patient appears in no apparent distress at this time. Patient and/or bm8 family updated on plan of care and expected duration. Pain level reassessed. Patient is alert, oriented x 3, equal unlabored respirations, skin warm/dry/pink. Patient denies pain at this time. Patient states feeling better. 22:53 Reassessment: Patient appears in no apparent distress at this time. Patient and/or bm8 family updated on plan of care and expected duration. Pain level reassessed. Patient is alert, oriented x 3, equal unlabored respirations, skin warm/dry/pink. pt reports mild pain in buttocks. Pt was able to ambulate to restroom 60 ft away and back without assistance. Patient states feeling better. 05/20 00:03 Reassessment: Patient appears in no apparent distress at this time. No changes from bm8 previously documented assessment. Patient and/or family updated on plan of care and expected duration. Pain level reassessed. Patient is alert, oriented x 3, equal unlabored respirations, skin warm/dry/pink. Vital Signs: 05/19 20:04 BP 159 / 46; Pulse 91; Resp 19; Temp 98.5; Pulse Ox 100% on R/A; Weight 95.25 kg; bm8 Height 5 ft. 7 in. ; Pain 8/10; 21:11 BP 139 / 73; Pulse 83; Resp 13; Temp 98.5; Pulse Ox 97% ; Pain 0/10; bm8 22:53 BP 139 / 74; Pulse 78; Resp 13; Temp 98.5; Pulse Ox 95% ; Pain 4/10; bm8 05/20 00:03 BP 138 / 62; Pulse 82; Resp 16; Temp 98.5; Pulse Ox 95% ; Pain 3/10; bm8 05/19 20:04 Body Mass Index 32.89 (95.25 kg, 170.18 cm) bm8 05/19 20:04 Pain Scale: Adult bm8 21:11 Pain Scale: Adult bm8 22:53 Pain Scale: Adult bm8 05/20 00:03 Pain Scale: Adult bm8 Rew Coma Score: 05/19 20:22 Eye Response: spontaneous(4). Motor Response: obeys commands(6). Verbal Response: bm8 oriented(5). Total: 15. 22:53 Eye Response: spontaneous(4). Motor Response: obeys commands(6). Verbal Response: bm8 oriented(5). Total: 15. 23:44 Eye Response: spontaneous(4). Motor Response: obeys commands(6). Verbal Response: sp4 oriented(5). Total: 15. 05/20 00:03 Eye Response: spontaneous(4). Motor Response: obeys commands(6). Verbal Response: bm8 oriented(5). Total: 15. ED Course: 05/19 19:55 Patient arrived in ED. ra3 20:04 Kenn Yap MD is Attending Physician. sp4 20:15 EKG done, by ED staff. cc6 20:16 Danyel Henning, RN is Primary Nurse. bm8 20:18 Triage completed. bm8 20:18 Arm band placed on right wrist. bm8 20:22 No provider procedures requiring assistance completed. Initial lab(s) drawn, by ED 8 staff, sent to lab. Inserted saline lock: 22 gauge in right antecubital area, using aseptic technique. Blood collected. Flushed with 10 mL NS. Patient maintains SpO2 saturation greater than 95% on room air. 20:22 Patient has correct armband on for positive identification. Placed in gown. Bed in low bm8 position. Call light in reach. Side rails up X2. Client placed on continuous cardiac and pulse oximetry monitoring. NIBP monitoring applied. monitor and storage bin tender on. Pulse ox on. NIBP on. Door closed. Noise minimized. Warm blanket given. Head of bed elevated. 20:27 Basic Metabolic Panel Sent. vk 20:27 CBC with Diff Sent. vk 20:27 LFT's Sent. vk 20:27 Magnesium Sent. vk 20:27 NT PRO-BNP Sent. vk 20:27 PT-INR Sent. vk 20:27 Troponin HS Sent. vk 20:34 XRAY Chest (1 view) In Process Unspecified. EDMS 21:01 CT Chest Abdomen Pelvis W/O Contrast In Process Unspecified. EDMS 23:42 Carlton Witt MD is Hospitalizing Provider. sp4 05/20 00:03 Patient admitted, IV remains in place. bm8 00:03 Provided Education on: need for admit. bm8 Administered Medications: 05/19 20:36 Drug: Ondansetron IVP 4 mg IVP once; over 2 minutes Route: IVP; Site: right antecubital;bm8 21:03 Follow up: Response: No adverse reaction bm8 20:37 Drug: morphine IVP or IV 4 mg IVP once over 4 mins Route: IVP; Infused Over: 4 mins; bm8 Site: right antecubital; 21:03 Follow up: Response: No adverse reaction bm8 23:53 Drug: morphine IVP or IV 4 mg IVP once over 4 mins Route: IVP; Infused Over: 4 mins; bm8 Site: right antecubital; 05/20 00:06 Follow up: Response: No adverse reaction bm8 05/19 23:53 Drug: Furosemide IVP 40 mg IVP once; give over 2 minutes Route: IVP; Site: right bm8 antecubital; 05/20 00:06 Follow up: Response: No adverse reaction bm8 Medication: 05/19 20:22 VIS not applicable for this client. bm8 Outcome: 23:44 Decision to Hospitalize by Provider. sp4 05/20 01:39 Admitted to Med/surg accompanied by nurse, via wheelchair, room 222, bm8 Condition: stable Instructed on the need for admit, Demonstrated understanding of instructions, follow-up care, medications, 01:40 Patient left the ED. bm8 Signatures: Dispatcher [employer] EDMS Annei Valdovinos RN RN ha1 Kenn Yap MD MD sp4 Ilda Cintron ra3 Shirley Gibbs Brad, RN RN bm8 Giovanna Valadez cc6 Corrections: (The following items were deleted from the chart) 05/19 20:24 20:04 Method Of Arrival: Ambulatory [facility] ha1
--- NOTE | 2024-05-19 23:44 | EDPHYS ---
Physician Documentation [facility] Name: Tripp Webster Age: 59 yrs Sex: Male : 1965 Arrival Date: 05/19/2024 Time: 19:53 Bed 2 Private MD: ED Physician Kenn Yap HPI: 05/19 20:04 This 59 yrs old Male presents to ER via Unassigned with complaints of sp4 Breathing Difficulty, Chest Pain, Fall Injury, Back Pain. 23:47 59-year-old male with history of coronary artery disease, BPH, depression, diabetes, sp4 CHF, GERD, presents with acute onset of shortness of breath with physical exertion, chest discomfort, moderate abdominal distention and discomfort. Patient states she also fell at home onto his left buttocks and developed acute buttock pain. . Past medical history and recent admission from 03/25/2024. Patient was admitted for symptomatic dizziness. Also hypoglycemia. Patient's medications include atorvastatin 80 mg daily, carvedilol 12.5 p.o. twice daily, clopidogrel 75 p.o. daily, aspirin 81 mg p.o. daily, Lexapro 20 mg p.o. daily, Lasix 80 mg p.o. daily, gabapentin 800 mg p.o. 3 times daily, insulin regular 70 3043 units subcu twice daily, insulin Humulin KwikPen, quetiapine 100 mg bedtime, tamsulosin 0.4 mg daily. At this time patient complains of bilateral buttock pain, lower back pain, abdominal pain and distention, chest pain and dyspnea.. Historical: - Allergies: 20:18 No Known Allergies; bm8 - Home Meds: 20:18 amlodipine 5 mg tab 1 tab twice a day [Active]; aspirin 81 mg oral capsule 1 cap daily bm8 [Active]; atorvastatin 80 mg Oral tab 1 tab once daily [Active]; carvedilol 12.5 mg Oral tab 1 tab 2 times per day [Active]; escitalopram oxalate 20 mg Oral tab 1 tab once daily [Active]; furosemide 80 mg Oral tab 1 tab once daily [Active]; gabapentin 600 mg Oral tab 1 tab four times a day [Active]; humalin 70/30 225 units daily [Active]; hydrocodone-acetaminophen 7.5-325 mg Oral tab 1 tab twice a day [Active]; Novolin R Sub-Q [Active]; Plavix 75 mg Oral tab 1 tab twice a day [Active]; tramadol 50 mg Oral tab 1 tab twice a day [Active]; - PMHx: 20:18 BPH; CAD; depressive disorder; Diabetes - IDDM; GERD; Hypercholesterolemia; bm8 Hypertension; Myocardial infarction; neuropathy; - PSHx: 20:18 cardiac stents; Coronary artery bypass graft; toe amputation; bm8 - Immunization history:: Adult Immunizations up to date. - Infectious Disease History:: Denies. - Social history:: Smoking status: Patient denies any tobacco usage or history of. - Family history:: not pertinent. ROS: 23:47 Constitutional: Negative for fever, chills, and weight loss, positive chest pain sp4 positive shortness of breath on exertion, positive abdominal distention, positive bilateral buttock pain 23:47 All other systems are negative, Exam: 23:44 Constitutional: This is a well developed, well nourished patient who is awake, alert, sp4 and in no acute distress. Head/Face: Normocephalic, atraumatic. Eyes: Pupils equal round and reactive to light, extra-ocular motions intact. Lids and lashes normal. Conjunctiva and sclera are not injected. Cornea within normal limits. Periorbital areas with no swelling, redness, or edema. ENT: Nares patent. No nasal discharge, no septal abnormalities noted. Tympanic membranes are normal and external auditory canals are clear. Oropharynx with no redness, swelling, or masses, exudates, or evidence of obstruction, uvula midline. Mucous membranes moist. Neck: Trachea midline, no thyromegaly or masses palpated, and no cervical lymphadenopathy. Supple, full range of motion without nuchal rigidity, or vertebral point tenderness. Chest/axilla: Normal chest wall appearance and motion. Nontender with no deformity. No lesions are appreciated. Cardiovascular: Regular rate and rhythm with a normal S1 and S2. No gallops, murmurs, or rubs. Normal PMI, Positive JVD , No pulse deficits. Respiratory: Lungs have equal breath sounds bilaterally, clear to auscultation and percussion. No rales, rhonchi or wheezes noted. No increased work of breathing, no retractions or nasal flaring. Abdomen/GI: Soft, with normal bowel sounds. No distension or tympany. No guarding or rebound. No evidence of tenderness throughout. Back: No spinal tenderness. No costovertebral tenderness. Skin: Warm, dry with normal turgor. Normal color with no rashes, no lesions, and no evidence of cellulitis. MS/ Extremity: Pulses equal, no cyanosis. Neurovascular intact. Full, normal range of motion. Neuro: Awake and alert, GCS 15, oriented to person, place, time, and situation. Cranial nerves II-XII grossly intact. Motor strength 5/5 in all extremities. Sensory grossly intact. Psych: Awake, alert, with orientation to person, place and time. Behavior, mood, and affect are within normal limits 23:44 ECG was reviewed by the Attending Physician. EKG at 2010 normal sinus rhythm rate 95 normal EKG Vital Signs: 20:04 BP 159 / 46; Pulse 91; Resp 19; Temp 98.5; Pulse Ox 100% on R/A; Weight 95.25 kg; bm8 Height 5 ft. 7 in. ; Pain 8/10; 21:11 BP 139 / 73; Pulse 83; Resp 13; Temp 98.5; Pulse Ox 97% ; Pain 0/10; bm8 22:53 BP 139 / 74; Pulse 78; Resp 13; Temp 98.5; Pulse Ox 95% ; Pain 4/10; 8 05/20 00:03 BP 138 / 62; Pulse 82; Resp 16; Temp 98.5; Pulse Ox 95% ; Pain 3/10; 8 05/19 20:04 Body Mass Index 32.89 (95.25 kg, 170.18 cm) 8 05/19 20:04 Pain Scale: Adult bm8 21:11 Pain Scale: Adult bm8 22:53 Pain Scale: Adult bm8 05/20 00:03 Pain Scale: Adult bm8 [place] Coma Score: 05/19 20:22 Eye Response: spontaneous(4). Motor Response: obeys commands(6). Verbal Response: bm8 oriented(5). Total: 15. 22:53 Eye Response: spontaneous(4). Motor Response: obeys commands(6). Verbal Response: bm8 oriented(5). Total: 15. 23:44 Eye Response: spontaneous(4). Motor Response: obeys commands(6). Verbal Response: sp4 oriented(5). Total: 15. 05/20 00:03 Eye Response: spontaneous(4). Motor Response: obeys commands(6). Verbal Response: bm8 oriented(5). Total: 15. MDM: 05/19 20:05 Medical Screening Exam initiated sp4 23:34 ED course: [address] [address] sp4 [facility] REPORT Name: TRIPP WEBSTER Acct Number: [id number] :1965 Age:59 Sex:M Ord Phys: Kenn Yap MD Unit Number: [id number] [facility]: Adri Antonio MD Status: REG ER ER Exam Date: 05/19/24 EXAM: CT CHEST, ABDOMEN AND PELVIS WITHOUT CONTRAST CLINICAL INDICATION: Chest and abdominal pain TECHNIQUE: CT chest, abdomen and pelvis was performed, without IV contrast, as per department protocol. Axial, sagittal and coronal reconstructions were obtained. One or more of the following dose reduction techniques were used: Automated exposure control, adjustment of the mA and/or kV according to the patient size, and/or iterative reconstruction. Unless otherwise specified, incidental findings do not require dedicated imaging follow-up. The lack of IV and oral contrast limits evaluation of the mediastinum, jimmy, vessels, organs and bowel. COMPARISON: March 2024 FINDINGS: Mild chronic appearing interstitial opacities within the lungs. Small right pleural effusion. No pericardial effusion. Coronary arterial calcifications are present. Small mediastinal lymph nodes likely reactive in nature. No hilar lymphadenopathy. Liver, pancreas and adrenals grossly normal. Increased density within the gallbladder could represent milk of calcium bile stones. Gallbladder wall does not appear thickened. Splenic granulomata are present. Renal vascular calcifications. No hydronephrosis. [id number] no hernia contains fat. No evidence of diverticulitis. Stranding within the subcutaneous fat left buttocks unchanged IMPRESSION: Stranding within the subcutaneous fat left buttocks unchanged may represent inflammation. No abscess. . 23:47 Differential diagnosis: Anemia Anxiety Reaction asthma, Bronchitis CHF exacerbation, sp4 Chronic Obstructive Pulmonary Disease Myocardial Infarction pneumonia. Data reviewed: vital signs, nurses notes, lab test result(s), EKG, radiologic studies, CT scan, plain films. ED course: Procedure: Chest Single View HISTORY: Chest pain COMPARISON: March 2024 FINDINGS: The lungs appear clear of acute infiltrate. Small right pleural effusion. The heart is mildly to moderately enlarged. Post surgical changes involving the chest. Old rib fractures are present. . 05/19 20:05 Order name: Basic Metabolic Panel; Complete Time: 23:15 sp4 05/19 20:05 Order name: CBC with Diff; Complete Time: 23:15 sp4 05/19 20:05 Order name: LFT's; Complete Time: 23:15 sp4 05/19 20:05 Order name: Magnesium; Complete Time: 23:15 sp4 05/19 20:05 Order name: NT PRO-BNP; Complete Time: 23:15 sp4 05/19 20:05 Order name: PT-INR; Complete Time: 23:15 sp4 05/19 20:05 Order name: Troponin HS; Complete Time: 23:15 sp4 05/20 00:00 Order name: Urinalysis w/ reflexes EDMS 05/20 00:00 Order name: CBC with Automated Diff EDMS 05/20 00:00 Order name: CBC with Automated Diff EDMS 05/20 00:00 Order name: Comprehensive Metabolic Panel EDMS 05/20 00:00 Order name: Comprehensive Metabolic Panel EDMS 05/20 00:00 Order name: Troponin High Sensitivity EDMS 05/20 00:00 Order name: Troponin High Sensitivity EDMS 05/20 00:00 Order name: Troponin High Sensitivity EDMS 05/20 00:00 Order name: Troponin High Sensitivity EDMS 05/19 20:05 Order name: XRAY Chest (1 view); Complete Time: 23:15 sp4 05/19 20:05 Order name: CT Chest Abdomen Pelvis W/O Contrast; Complete Time: 23:15 sp4 05/19 20:05 Order name: Cardiac monitoring; Complete Time: 20:19 sp4 05/19 20:05 Order name: EKG - Nurse/Tech; Complete Time: 20:13 sp4 05/19 20:05 Order name: IV Saline Lock; Complete Time: 20:27 sp4 05/19 20:05 Order name: Labs collected and sent; Complete Time: 20:27 sp4 05/19 20:05 Order name: O2 Per Protocol; Complete Time: 20:14 sp4 05/19 20:05 Order name: O2 Sat Monitoring; Complete Time: 20:14 sp4 EC:11 Rate is 95 beats/min. Rhythm is regular, Normal Sinus Rhythm. QRS [place] is Normal. [place] sp4 interval is normal. QRS interval is normal. QT interval is normal. No Q waves. T waves are Normal. No ST changes noted. Clinical impression: No evidence of ischemia. Interpreted by me. Reviewed by me. Administered Medications: 20:36 Drug: Ondansetron IVP 4 mg IVP once; over 2 minutes Route: IVP; Site: right antecubital;bm8 21:03 Follow up: Response: No adverse reaction bm8 20:37 Drug: morphine IVP or IV 4 mg IVP once over 4 mins Route: IVP; Infused Over: 4 mins; bm8 Site: right antecubital; 21:03 Follow up: Response: No adverse reaction 8 23:53 Drug: morphine IVP or IV 4 mg IVP once over 4 mins Route: IVP; Infused Over: 4 mins; bm8 Site: right antecubital; 05/20 00:06 Follow up: Response: No adverse reaction 8 05/19 23:53 Drug: Furosemide IVP 40 mg IVP once; give over 2 minutes Route: IVP; Site: right bm8 antecubital; 05/20 00:06 Follow up: Response: No adverse reaction bm8 Disposition Summary: 05/19/24 23:44 Hospitalization Ordered Notes: Hospitalization Status: Observation sp4 Provider: Carlton Witt sp4 Location: Telemetry/MedSurg (observation) sp4 Condition: Stable sp4 Problem: new sp4 Symptoms: have improved sp4 Bed/Room Type: Standard sp4 Room Assignment: 222(05/20/24 00:31) Diagnosis - Acute on chronic diastolic (congestive) heart failure sp4 - Atypical chest pain, acute fall at home, dyspnea on exertion, acute contusion of sp4 buttocks and lower spine Forms: - Medication Reconciliation Form sp4 - SBAR form sp4 - Leadership Thank You Letter sp4 Signatures: Dispatcher [employer] Anya Sy RN RN Kenn Yap MD MD [facility] Danyel Henning RN RN banner Vivienne Damon Corrections: (The following items were deleted from the chart) 05/19 20:05 20:05 Chest Single View+RAD.RAD.BRZ ordered. EDMS EDMS 20:06 Chest Abdomen Pelvis Wo Con+CT.RAD.BRZ ordered. EDMS EDMS 05/20 00:13 05/19 23:44 sp4 hw 05/20 00:17 00:13 413 hw cg 00:31 00:17 cg cg
[2024-05-19] MEDS ORDERED: FUROSEMIDE 40 MG/4 ML VIAL ONE (23:48)
[2024-05-19] MEDS ORDERED: IPRATROPIUM BROM 0.5MG/2.5ML NEB PRN (23:55)
[2024-05-19] MEDS ORDERED: ONDANSETRON 4 MG/2 ML VIAL IV PRN (23:55)
[2024-05-19] MEDS ORDERED: ALBUTEROL 2.5 MG/3 ML NEB SOL NEB PRN (23:55)
[2024-05-19] MEDS ORDERED: ACETAMINOPHEN 325 MG TABLET PO PRN (23:55)
--- NOTE | 2024-05-19 23:55 | P.HP ---
Certification for Inpatient Patient admitted to: Observation With expected LOS: <2 Midnights Practitioner: I am a practitioner with admitting privileges, knowledge of patient current condition, hospital course, and medical plan of care. Services: Services provided to patient in accordance with Admission requirements found in Title 42 Section 412.3 of the Code of Federal Regulations Patient History Date of Service: 05/20/24 Reason for admission: SP/SOB History of Present Illness: 59 yrs old Male with past medical history of BPH , CAD status post CABG and stents, depressive disorder , Diabetes ,GERD; Hypercholesterolemia; Hypertension, neuropathy brought to ER after having a fall and worsening of shortness of breath. Patient had a mechanical fall. Denies any dizziness or syncopal episode. He fell at home on his left buttocks and developed acute pain. Patient complains of bilateral buttock pain, lower back pain, abdominal pain and distention, chest pain and dyspnea. No fever or chills. No nausea vomiting or diarrhea. Patient was assessed in the ER and was admitted for further management of CHF exacerbation and also for pain control Allergies No Known Allergies Allergy (Verified 03/25/24 23:48) Home medications list reviewed: Yes Home Medications: Atorvastatin Calcium [Lipitor] 80 mg PO BEDTIME 11/20/23 Clopidogrel Bisulfate [Plavix*] 75 mg PO DAILY 11/20/23 Aspirin [Aspirin EC 81 MG] 81 mg PO DAILY 30 Days #30 tab 12/05/23 Escitalopram [Lexapro*] 20 mg PO DAILY 03/26/24 Gabapentin 800 mg PO TID 03/26/24 Insulin NPH Hum/Reg Insulin Hm [Humulin 70-30 Vial] 43 unit SQ BID 03/26/24 Insulin Regular, Human [Humulin R U-500 Kwikpen] 0 unit SQ TID 03/26/24 Quetiapine [Seroquel*] 100 mg PO BEDTIME 03/26/24 Tamsulosin [Flomax*] 0.4 mg PO DAILY 03/26/24 buPROPion HCL [Bupropion Xl] 150 mg PO DAILY 03/26/24 - Past Medical/Surgical History Diabetic: Yes Past Medical History: Reviewed- Non-Contributory -: Hypertension -: Diabetes mellitus type 2 insulin dependent -: CAD with prior stent -: Hyperlipidemia -: Diabetic neuropathy -: Obesity -: Sleep apnea noncompliant -: CVA -: Chronic diastolic congestive heart failure Past Surgical History: Reviewed- Non-Contributory -: Stent placement x5 -: back surgery -: ble vascular sx -: Appendectomy -: Multiple debridement left great toe -: cabg 02/03/23-2v Psychosocial/ Personal History: Patient is - Family History Father -: Heart disease, Diabetes Mother -: Heart disease - Social History Smoking Status: Never smoker Alcohol use: No CD- Drugs: No Caffeine use: No Review of Systems 10-point ROS is otherwise unremarkable Physical Examination - Vital Signs Temperature: 98.1 F Blood Pressure: 130/67 Pulse: 90 Respirations: 18 Pulse Ox (%): 94 - Physical Exam General: Alert, Oriented x3, Moderate distress HEENT: Atraumatic, Normocephalic Neck: Supple Respiratory: Clear to auscultation bilaterally, Crackles/rales Cardiovascular: Normal pulses, Regular rate/rhythm, Normal S1 S2 Capillary refill: <2 Seconds Gastrointestinal: Soft and benign, Non-distended, W/out hepatosplenomegaly Musculoskeletal: No clubbing, Tenderness Integumentary: No rashes Neurological: Normal speech, Normal strength at 5/5 x4 extr, Cranial nerves 3-12 intact Lymphatics: No axilla or inguinal lymphadenopathy - Studies Laboratory Data (last 24 hrs) 05/19/24 05/19/24 05/19/24 20:22 20:22 20:22 WBC 8.90 Hgb 10.9 L Hct 33.4 L Plt Count 257 PT 12.4 INR 1.11 Sodium 140 Potassium 3.5 BUN 21 H Creatinine 1.26 Glucose 93 Magnesium 2.1 Total Bilirubin 1.2 H AST 20 ALT 22 Alkaline Phosphatase 165 H Assessment and Plan - Plan Fall Acute back pain and left buttock pain Pain control CT chest abdomen pelvis noted Stranding of left buttocks subcutaneous fat noted Will add on antispasmodics as well Monitor closely Acute on chronic CHF possibly systolic/diastolic Monitor closely on telemetry Started on aggressive diuresis X-ray findings consistent with CHF Oxygen supplementation Will try to wean down oxygen requirement Continue home medications Titrate as needed Will obtain an echocardiogram CAD status post CABG and PCI's Hypertension Antihypertensives titrated Continue home medications and titrate as needed Hyperlipidemia Continue statin Diabetes Insulin sliding scale Accu-Chek before every meal and at bedtime GI/DVT prophylaxis Advanced directive full code Discharge Plan: Home Plan to discharge in: 48 Hours - Advance Directives Does patient have a Living Will: No Does patient have a Durable POA for Healthcare: No - Code Status/Comfort Care Code Status: Full Code Time Spent Managing Pts Care (In Minutes): 48
[2024-05-20] MEDS: HEPARIN 5000 UNIT/ML 1 ML VIAL SQ SCH (01:30)
[2024-05-20 01:55] VITALS: BMI 32.5
[2024-05-20] MEDS ORDERED: HYDROCODONE/APAP 5/325 MG TAB PO PRN (03:52)
[2024-05-20] MEDS ORDERED: methocarbamoL 500 MG TAB PO PRN (03:52)
[2024-05-20] MEDS ORDERED: D10W 125 ML IV PRN (03:53)
[2024-05-20] MEDS ORDERED: GLUCAGON 1 MG/VIAL IM PRN (03:53)
[2024-05-20] MEDS: KETOROLAC 30 MG/ML INJ IV ONE (04:13)
[2024-05-20] MEDS: MORPHINE 2 MG/ML SYR IV PRN (04:28)
[2024-05-20 04:31] LABS: Absolute Eosinophils 0.2 K/uL (0-0.5); Absolute Lymphocytes (CBC) 1.8 K/uL (0.7-4.9); Absolute Neutrophil 5.1 K/uL (1.8-8.0); Basophils % 0.6 % (0-1.3); Eosinophils % 2.9 % (0-4.4); Hematocrit 31.6 % (39.6-49.0); Hemoglobin 9.9 g/dL (13.6-17.9); Lymphocytes % 21.5 % (15.3-44.8); MCH 24.2 pg (27.0-35.0); MCHC 31.4 g/dL (32.0-36.0); MPV 7.5 fL (7.6-11.3); Monocytes % 12.7 % (3.3-12.3); Neutrophils % 62.3 % (41.7-73.7); Platelets 250 thou/uL (152-406); Red Cell Distribution Width 17.8 % (12.1-15.2)
[2024-05-20 04:36] LABS: Specific Gravity 1.008 (1.005-1.030); Urine Bilirubin NEGATIVE (Negative); Urine Blood Negative (Negative); Urine Clarity Clear (Clear); Urine Color Colorless (Yellow); Urine Glucose NEGATIVE (Negative); Urine Ketones NEGATIVE (Negative); Urine Microscopic Reflex YN NO UMIC; Urine Nitrite NEGATIVE (Negative); Urine Protein NEGATIVE (Negative); Urine Urobilinogen Normal (Normal)
[2024-05-20 04:48] LABS: Albumin/Globulin Ratio 0.7 (1.1-1.8); Anion Gap 8.8 mEq/L (5.0-15.0); Bilirubin Total 1.2 mg/dL (0.2-1.0); Globulin 4.1 g/dL (2.3-3.5); Potassium 3.8 mEq/L (3.5-5.1); Protein, Total 7.1 g/dL (6.4-8.2)
[2024-05-20] MEDS: INSULIN REGULAR (HUMAN) 100 UNIT/ML SQ SCH (07:30)
[2024-05-20] MEDS: POTASSIUM CL SA 10 MEQ TAB PO ONE (09:57)
[2024-05-20] MEDS: FUROSEMIDE 20 MG/ 2ML VIAL IV SCH (09:58)
--- NOTE | 2024-05-20 11:08 | P.PN ---
Date of Service: 05/20/24 Subjective: reports not taking lasix for several days eating more salty foods lately with holidays lately feeling better this morning, but still short of breath, and abdomen bloated small BM /silvana yesterday ROS: 10 point ROS as noted above, otherwise negative Physical Exam: GEN: Alert, oriented, NAD CV: Regular rate and rhythm, trace b/l lower extremity edema Pulm: Nonlabored respirations on room air, diminished b/l at bases ABD: soft, nontender, mild distention but soft Neuro: Normal speech, normal affect Problem List: Acute on chronic diastolic CHF Back pain s/p mechanical fall Hyperbilirubinemia, mild IDDM2 with neuropathy Hypertension Hyperlipidemia Chronic joint pain BPH GERD hx CAD with prior stents, now s/p CABG (02/03/23) hx of substance abuse / dependence Hx of CVA Acute on chronic diastolic CHF on admission, presents with some shortness of breath after having a mechanical fall at home. CXR (05/19): Small right pleural effusion, moderate cardiomegaly. Old rib fractures. CT chest/abd (05/19): Small right pleural effusion, Mild chronic appearing interstitial opacities within the lungs. Stranding within the subcutaneous fat left buttocks unchanged may represent inflammation. No abscess. some degree of medication noncompliance, patient reports to not taking his lasix last few days. continue IV lasix 20 mg BID Echo ordered to eval EF / stenosis troponins negative x3 duonebs Back pain s/p mechanical fall patient reports mechanical fall at home prior to admission. Reportedly fell on his butt, now with back/butt pain. Denies syncope. Pain control Hyperbilirubinemia unknown origin. T. bili 1.2 IDDM2 with neuropathy accu-cheks, SSI confirm home insulin regimen Hypertension Hyperlipidemia Chronic joint pain BPH GERD hx CAD with prior stents, now s/p CABG (02/03/23) hx of substance abuse / dependence Hx of CVA confirm home meds, restart as appropriate VTE: Heparin sq Code: Full Dispo: Home ~24-48hrs Time Spent Managing Pts Care (In Minutes): 55
[2024-05-20] MEDS: POLYETHYL GLY 3350 17 GM/DOSE PO ONE (11:42)
[2024-05-21 06:08] LABS: Absolute Basophils 0.1 K/uL (0-0.5); Absolute Eosinophils 0.3 K/uL (0-0.5); Absolute Lymphocytes (CBC) 1.3 K/uL (0.7-4.9); Absolute Neutrophil 6.6 K/uL (1.8-8.0); Basophils % 0.6 % (0-1.3); Eosinophils % 3.2 % (0-4.4); Hemoglobin 9.8 g/dL (13.6-17.9); Lymphocytes % 14.5 % (15.3-44.8); MCH 24.6 pg (27.0-35.0); MCHC 31.8 g/dL (32.0-36.0); MCV 77.5 fL (80-100); MPV 7.4 fL (7.6-11.3); Monocytes % 10.4 % (3.3-12.3); Neutrophils % 71.3 % (41.7-73.7); Platelets 229 thou/uL (152-406); Red Cell Distribution Width 17.2 % (12.1-15.2)
[2024-05-21 07:09] LABS: Albumin 2.8 g/dL (3.4-5.0); Albumin/Globulin Ratio 0.7 (1.1-1.8); Anion Gap 11.2 mEq/L (5.0-15.0); Bilirubin Total 1.5 mg/dL (0.2-1.0); Potassium 4.2 mEq/L (3.5-5.1); Protein, Total 6.8 g/dL (6.4-8.2)
--- NOTE | 2024-05-21 08:40 | P.DS ---
Admission Date: 05/20/24 Discharge Date: 05/21/24 Reason for Admission: SP/SOB Brief History of Present Illness: 59yo M, PMH: BPH , CAD status post CABG and stents, depressive disorder , Diabetes ,GERD; Hypercholesterolemia; Hypertension, neuropathy Patient brought to ER after having a fall and worsening of shortness of breath. Patient had a mechanical fall. Denies any dizziness or syncopal episode. He fell at home on his left buttocks and developed acute pain. Patient complains of bilateral buttock pain, lower back pain, abdominal pain and distention, chest pain and dyspnea. No fever or chills. No nausea vomiting or diarrhea. Patient was assessed in the ER and was admitted for further management of CHF exacerbation and also for pain control Hospital Course: Problem List: Acute on chronic diastolic CHF Back pain s/p mechanical fall Hyperbilirubinemia, mild IDDM2 with neuropathy Hypertension Hyperlipidemia Chronic joint pain BPH GERD hx CAD with prior stents, now s/p CABG (02/03/23) hx of substance abuse / dependence Hx of CVA Physician discharge instructions: Patient presented with chest and back pain associated with shortness of breath after a mechanical fall at home. Chest xray with small right pleural effusion, moderate cardiomegaly. Old rib fractures. CT chest/abdomen noted small right pleural effusion, Mild chronic appearing interstitial opacities within the lungs. No hip/femur fractures. Of note, patient reports some degree of medication non-compliance at home - reportedly missed a few doses of lasix over the last few days which likely contributed to patient's pulm edema, symptoms. Patient received IV lasix while hospitalization and had improvement of his symptoms. Troponin's were negative x3. Patient was monitored overnight, feeling better, breathing more comfortably on room air, and was deemed stable for discharge. Check daily weight around the same time each day. Keep daily diary of weight readings to take to follow up appointments for further adjustments of medications. Follow up with Cardiology in next 2-4 weeks for further management. Medications: Continue lasix 80 mg daily. Patient reports having prescriptions for lasix at home, however sent a prescription in case he is low. Continue other home medications as previously prescribed. Follow up: PCP 3-5 days Cardiology 2-4 weeks Please call to schedule / confirm appointments Physical Exam: GEN: Alert, oriented, NAD CV: Regular rate and rhythm, trace b/l lower extremity edema Pulm: Nonlabored respirations on room air, diminished b/l at bases ABD: soft, nontender, mild distention but soft Neuro: Normal speech, normal affect Vital Signs/Physical Exam: Temp Pulse Resp BP Pulse Ox 97.5 F 84 18 150/70 H 97 05/21/24 00:00 05/21/24 00:00 05/21/24 05:04 05/21/24 00:00 05/21/24 05:04 Laboratory Data at Discharge: WBC 9.20 thou/uL (4.3-10.9) 05/21/24 05:58 Hgb 9.8 g/dL (13.6-17.9) L 05/21/24 05:58 Hct 31.0 % (39.6-49.0) L 05/21/24 05:58 Plt Count 229 thou/uL (152-406) 05/21/24 05:58 PT 12.4 SECONDS (9.4-12.5) 05/19/24 20:22 INR 1.11 05/19/24 20:22 Sodium 138 mEq/L (136-145) 05/21/24 05:58 Potassium 4.2 mEq/L (3.5-5.1) 05/21/24 05:58 BUN 25 mg/dL (7-18) H 05/21/24 05:58 Creatinine 1.11 mg/dL (0.70-1.30) 05/21/24 05:58 Glucose 248 mg/dL (74-106) H 05/21/24 05:58 Magnesium 2.0 mg/dL (1.6-2.4) 05/21/24 05:58 Total Bilirubin 1.5 mg/dL (0.2-1.0) H 05/21/24 05:58 AST 15 U/L (15-37) 05/21/24 05:58 ALT 19 U/L (16-61) 05/21/24 05:58 Alkaline Phosphatase 137 U/L (45-117) H 05/21/24 05:58 Home Medications: Atorvastatin Calcium [Lipitor] 80 mg PO BEDTIME 11/20/23 Clopidogrel Bisulfate [Plavix*] 75 mg PO DAILY 11/20/23 Aspirin [Aspirin EC 81 MG] 81 mg PO DAILY 30 Days #30 tab 12/05/23 Escitalopram [Lexapro*] 20 mg PO DAILY 03/26/24 Gabapentin 800 mg PO TID 03/26/24 Insulin NPH Hum/Reg Insulin Hm [Humulin 70-30 Vial] 43 unit SQ BID 03/26/24 Insulin Regular, Human [Humulin R U-500 Kwikpen] 0 unit SQ TID 03/26/24 Quetiapine [Seroquel*] 100 mg PO BEDTIME 03/26/24 Tamsulosin [Flomax*] 0.4 mg PO DAILY 03/26/24 buPROPion HCL [Bupropion Xl] 150 mg PO DAILY 03/26/24 Physician Discharge Instructions: Physician discharge instructions: Patient presented with chest and back pain associated with shortness of breath after a mechanical fall at home. Chest xray with small right pleural effusion, moderate cardiomegaly. Old rib fractures. CT chest/abdomen noted small right pleural effusion, Mild chronic appearing interstitial opacities within the lungs. Of note, patient reports some degree of medication non-compliance at home - reportedly missed a few doses of lasix over the last few days which likely contributed to patient's pulm edema, symptoms. Patient received IV lasix while hospitalization and had improvement of his symptoms. Troponin's were negative x3. Patient was monitored overnight, feeling better, breathing more comfortably on room air, and was deemed stable for discharge. Check daily weight around the same time each day. Keep daily diary of weight readings to take to follow up appointments for further adjustments of medications. Follow up with Cardiology in next 2-4 weeks for further management. Medications: Continue lasix 80 mg daily. Patient reports having prescriptions for lasix at home. Continue other home medications as previously prescribed. Follow up: PCP 3-5 days Cardiology 2-4 weeks Please call to schedule / confirm appointments Followup: Adri Antonio MD [Primary Care Provider] - Time spent managing pt's care (in minutes): 45
[2024-05-21 08:50] VITALS: BP 144/62
[2024-05-21] MEDS: KETOROLAC 30 MG/ML INJ IV ONE (08:56)
[2024-05-21 09:21] VITALS: TEMP 98.1
[2024-05-21 10:05] VITALS: O2SAT 91
--- NOTE | 2024-05-26 16:14 | EKG ---
Test Date: 2024-05-19 Test Time: 20:11:20 Unit Manager: LINO MEASUREMENT RESULTS: Intervals: Rate: 95 TX: 152 QRSD: 88 QT: 358 QTc: 449 [place]: P: 68 TX: 152 QRS: 62 T: 92 INTERPRETIVE STATEMENTS: Normal sinus rhythm Normal ECG Compared to ECG 03/25/2024 19:18:47 Myocardial infarct finding no longer present Electronically Signed On 05-26-24 16:06:58 RETOUCHER by Torin Hernández
== END 2024-05-21 11:25 | disposition home or self-care (01) | DRG 291 ==
LOC: ER 19:53 → INTOOBSV 05-20 01:03 → 2ND 05-20 01:03 → OBSVTOIN 05-20 17:37
PROVIDERS: ADMIT Family Medicine; ATTEND Hospitalist
DX: I11.0 Hypertensive heart disease with heart failure (principal); I50.33 Acute on chronic diastolic (congestive) heart failure; E78.00 Pure hypercholesterolemia, unspecified; N40.0 Benign prostatic hyperplasia without lower urinary tract symptoms; K21.9 Gastro-esophageal reflux disease without esophagitis; M54.50 Low back pain, unspecified; E11.40 Type 2 diabetes mellitus with diabetic neuropathy, unspecified; E80.6 Other disorders of bilirubin metabolism; I25.10 Atherosclerotic heart disease of native coronary artery without angina pectoris; S30.0XXA Contusion of lower back and pelvis, initial encounter; I25.2 Old myocardial infarction; Z79.4 Long term (current) use of insulin; Z95.5 Presence of coronary angioplasty implant and graft; Z79.82 Long term (current) use of aspirin; Z86.73 Personal history of transient ischemic attack (TIA), and cerebral infarction without residual deficits; Z79.02 Long term (current) use of antithrombotics/antiplatelets; Z79.899 Other long term (current) drug therapy; Z89.429 Acquired absence of other toe(s), unspecified side; W18.30XA Fall on same level, unspecified, initial encounter; Y93.9 Activity, unspecified; Y92.019 Unspecified place in single-family (private) house as the place of occurrence of the external cause; Y99.9 Unspecified external cause status
CPT/HCPCS: 36415; 71045; 71250; 74176; 80048; 80053; 80076; 81003; 82947; 83735; 83880; 84484; 85025; 85610; 93005; 94760; 96374; 96375; 99285; G0378; J1644; J1940; J2270; J2405

== ENCOUNTER 2024-07-30 01:32 | Inpatient (IN) | payer OTHER ==
[2024-07-30] MEDS ORDERED: NA CHLORIDE 0.9% 1,000 ML ONE (02:28)
[2024-07-30] MEDS ORDERED: KETOROLAC 30 MG/ML INJ ONE (02:28)
[2024-07-30 02:44] LABS: Absolute Eosinophils 0.1 K/uL (0-0.5); Absolute Lymphocytes (CBC) 1.9 K/uL (0.7-4.9); Absolute Monocytes 0.8 K/uL (0.1-1.3); Absolute Neutrophil 4.2 K/uL (1.8-8.0); Basophils % 0.5 % (0-1.3); Eosinophils % 1.8 % (0-4.4); Hematocrit 33.6 % (39.6-49.0); Lymphocytes % 26.9 % (15.3-44.8); MCH 25.4 pg (27.0-35.0); MCHC 32.8 g/dL (32.0-36.0); MCV 77.5 fL (80-100); MPV 7.6 fL (7.6-11.3); Neutrophils % 59.8 % (41.7-73.7); Platelets 255 thou/uL (152-406); RBC Red Blood Cell Count 4.34 M/uL (4.33-5.43); Red Cell Distribution Width 17.4 % (12.1-15.2)
[2024-07-30 02:46] LABS: PT Prothrombin Time 11.8 SECONDS (9.4-12.5); PTT, Activated Partial Thromb 28.7 SECONDS (24.3-36.9); Protime INR 1.13
[2024-07-30 02:53] LABS: ALT/SGPT 23 U/L (16-61); AST/SGOT 19 U/L (15-37); Albumin 2.9 g/dL (3.4-5.0); Albumin/Globulin Ratio 0.7 (1.1-1.8); Alkaline Phosphatase 153 U/L (45-117); Anion Gap 7.7 mEq/L (5.0-15.0); BUN Blood Urea Nitrogen 32 mg/dL (7-18); Bicarbonate 28 mEq/L (21-32); Bilirubin Total 0.6 mg/dL (0.2-1.0); Globulin 3.9 g/dL (2.3-3.5); Glomerular Filtration Rate 43 ml/min (=/>90); Potassium 3.7 mEq/L (3.5-5.1); Protein, Total 6.8 g/dL (6.4-8.2); Sodium Level 140 mEq/L (136-145)
[2024-07-30 02:58] LABS: Bilirubin Direct < 0.2 mg/dL (0-0.2); Bilirubin Indirect, Calculated 0.4 mg/dL (0.2-0.8)
[2024-07-30 02:59] LABS: Glucose Level 53 mg/dL (74-106)
[2024-07-30] MEDS ORDERED: D50W 25 GM/50 ML SYRINGE IV ONE ×3 (03:01→05:40)
--- NOTE | 2024-07-30 03:10 | RAD REPORT ---
EXAM DESCRIPTION: Shoulder Left 2+ Views CLINICAL HISTORY: PAIN COMPARISON: None. FINDINGS: 2 views of the left shoulder. No acute fracture or dislocation. Osteopenia. Glenoh umeral and acromioclavicular joint space narrowing and spurring. Prior median sternotomy. No left-sided pneumothorax. IMPRESSION: No acute fracture or dislocation. Degenerative change of the glenohumeral and acromioclavicular joints. Electronically signed by: Jesus mOer DO 07/30/2024 03:04 AM [facility] [id number] Due to temporary technical issues with the PACS/Zipnosis reporting system, reports are being kranthi d by the in-house radiologist without review as a courtesy to ensure prompt reporting the interpreting radiologist is fully responsible for the content of the report. Transcribed Date/Time: 07/30/2024 3:10 AM
[2024-07-30] MEDS ORDERED: HYDROCORTISONE SUC 100 MG INJ ONE (06:09)
--- NOTE | 2024-07-30 06:16 | EDPHYS ---
Physician Documentation [facility] Name: Tripp Webster Age: 59 yrs Sex: Male : 1965 Arrival Date: 07/30/2024 Time: 01:32 Bed 3 Private MD: ED Physician Naveen Cunningham HPI: 07/30 02:15 This 59 yrs old Male presents to ER via EMS with complaints of Accidental Overdose. cp 02:15 The patient presents to the emergency department with a possible overdose, empty bottle cp of Lunesta medication. Context: Method: the patient has a confirmed or suspected ingestion, Time: the patient's OD/poisoning occurred at an unknown time, the OD/poisoning occurred at at home. Associated signs and symptoms: Pertinent positives: decreased level of consciousness. Historical: - Allergies: 02:07 No Known Allergies; bm8 - PMHx: 02:07 BPH; CAD; depressive disorder; Diabetes - IDDM; GERD; Hypercholesterolemia; bm8 Hypertension; Myocardial infarction; neuropathy; - PSHx: 02:07 cardiac stents; Coronary artery bypass graft; toe amputation; bm8 - Immunization history:: Adult Immunizations up to date. - Infectious Disease History:: Denies. - Social history:: Smoking status: Patient denies any tobacco usage or history of. - Family history:: not pertinent. ROS: 02:18 Eyes: Negative for injury, pain, redness, and discharge, cp 02:18 Constitutional: Negative for body aches, chills, fever, poor PO intake, 02:18 ENT: Negative for drainage from ear(s), ear pain, sore throat, difficulty swallowing, difficulty handling secretions, 02:18 Cardiovascular: Negative for chest pain, palpitations, 02:18 Respiratory: Negative for cough, shortness of breath, wheezing, 02:18 Abdomen/GI: Negative for abdominal pain, vomiting, diarrhea, constipation, 02:18 Back: Negative for pain at rest, pain with movement, 02:18 MS/extremity: Positive for pain, of the left shoulder, Negative for injury or acute deformity, decreased range of motion, paresthesias, 02:18 Neuro: Negative for altered mental status, headache, numbness, syncope, weakness, 02:18 All other systems are negative, Exam: 01:45 ECG was reviewed by the Attending Physician. cp 02:21 Head/Face: Normocephalic, atraumatic. cp 02:21 Constitutional: The patient appears in no acute distress, non-diaphoretic, non-toxic, well developed, well nourished, obese, 02:21 Eyes: Periorbital structures: appear normal, Pupils: equal, round, and reactive to light and accomodation, Extraocular movements: intact throughout, Conjunctiva: normal, no exudate, no injection, Sclera: no appreciated abnormality, Lids and lashes: appear normal, bilaterally, 02:21 ENT: External ear(s): are unremarkable, Nose: is normal, Mouth: Lips: moist, Oral mucosa: pink and intact, moist, Posterior pharynx: Airway: no evidence of obstruction, patent, 02:21 Chest/axilla: Inspection: normal, Palpation: is normal, no crepitus, no tenderness, 02:21 Cardiovascular: Rate: normal, Rhythm: regular, Edema: is not appreciated, JVD: is not appreciated, 02:21 Respiratory: the patient does not display signs of respiratory distress, Respirations: normal, no use of accessory muscles, no retractions, labored breathing, is not present, Breath sounds: are clear throughout, no decreased breath sounds, no stridor, no wheezing, 02:21 Abdomen/GI: Inspection: obese Palpation: abdomen is soft and non-tender, in all quadrants, 02:21 Musculoskeletal/extremity: Extremities: noted in the left shoulder: pain, tenderness, There is no evidence of decreased ROM, deformity, 02:21 Neuro: Orientation: to person, place, situation, Mentation: able to follow commands, slow to respond, Motor: moves all fours, no focal deficits, Vital Signs: 01:46 BP 128 / 63; Pulse 83; Temp 97.8; Pulse Ox 98% ; Weight 97.52 kg; Height 5 ft. 11 in. ; vc1 02:10 BP 132 / 67; Pulse 95; Resp 18; Temp 97.8; Pulse Ox 99% ; Pain 5/10; bm8 03:35 BP 143 / 55; Pulse 87; Resp 18; Temp 97.8; Pulse Ox 95% ; Pain 3/10; bm8 04:57 BP 160 / 57; Pulse 84; Resp 18; Temp 97.8; Pulse Ox 98% on R/A; Pain 0/10; bm8 05:59 BP 121 / 77; Pulse 68; Resp 18; Temp 97.8; Pulse Ox 99% ; Pain 0/10; bm8 06:40 BP 133 / 55; Pulse 75; Resp 18; Temp 97.8; Pulse Ox 97% ; Pain 0/10; bm8 01:46 Body Mass Index 29.99 (97.52 kg, 180.34 cm) vc1 02:10 Pain Scale: Adult bm8 03:35 Pain Scale: Adult bm8 04:57 Pain Scale: Adult bm8 05:59 Pain Scale: Adult bm8 06:40 Pain Scale: Adult bm8 [place] Coma Score: 02:10 Eye Response: spontaneous(4). Motor Response: obeys commands(6). Verbal Response: bm8 oriented(5). Total: 15. 03:35 Eye Response: spontaneous(4). Motor Response: obeys commands(6). Verbal Response: bm8 oriented(5). Total: 15. 04:57 Eye Response: to voice(3). Motor Response: obeys commands(6). Verbal Response: bm8 confused(4). Total: 13. 05:59 Eye Response: spontaneous(4). Motor Response: obeys commands(6). Verbal Response: bm8 oriented(5). Total: 15. MDM: 01:59 Medical Screening Exam initiated cp 06:18 Differential diagnosis: Ingestion/exposure to LUNESTA over medication, hypoglycemia. aren Data reviewed: vital signs, nurses notes, lab test result(s), EKG, radiologic studies, plain films. Consideration of Admission/Observation Patient was admitted/placed on observation. Escalation of care including admission/observation considered. I considered the following discharge prescriptions or medication management in the emergency department Medications were administered in the Emergency Department. See MAR. Independent interpretation of the following test(s) in the Emergency Department EKG: See my EKG interpretation above. Test considered but Not performed: CT: NO CT HEAD. Care significantly affected by the following chronic conditions: Diabetes, Hypertension, CAD, BPH, DEPRESSION. 07/30 02:00 Order name: Acetaminophen; Complete Time: 03:13 cp 07/30 02:00 Order name: Basic Metabolic Panel; Complete Time: 03:13 cp 07/30 03:13 Interpretation: Normal except: CL 108; GLUC 53; BUN 32; CRE 1.79; GFR 43; CA 8.4. cp 07/30 02:00 Order name: CBC with Diff; Complete Time: 03:13 07/30 03:14 Interpretation: Normal except: HGB 11.0; HCT 33.6; MCV 77.5; MCH 25.4; RDW 17.4. 07/30 02:00 Order name: ETOH Level; Complete Time: 03:13 07/30 03:14 Interpretation: Reviewed. 07/30 02:00 Order name: Hepatic Function; Complete Time: 03:13 07/30 03:14 Interpretation: Normal except: ALK 153; ALB 2.9; GLOB 3.9; A/G 0.7. 07/30 02:00 Order name: PT-INR; Complete Time: 03:13 07/30 02:00 Order name: Ptt, Activated; Complete Time: 03:13 07/30 02:00 Order name: Salicylate; Complete Time: 03:13 07/30 02:00 Order name: Urinalysis w/ reflexes 07/30 02:00 Order name: Urine Drug Screen 07/30 04:30 Order name: Glucose, Ancillary Testing; Complete Time: 06:17 EDMS 07/30 05:50 Order name: Glucose, Ancillary Testing; Complete Time: 06:17 EDMS 16 06:34 Order name: BMP [facility] 07/30 02:21 Order name: XRAY Shoulder LEFT 2 view; Complete Time: 03:13 07/30 03:14 Interpretation: Report reviewed. 07/30 02:00 Order name: EKG - Nurse/Tech; Complete Time: 02:06 07/30 02:00 Order name: IV Saline Lock; Complete Time: 02:06 07/30 02:00 Order name: Labs collected and sent; Complete Time: 02:06 07/30 02:00 Order name: Suicide Screening ([place]); Complete Time: 02:06 EC:45 Rate is 85 beats/min. Rhythm is regular. AL interval is normal. QRS interval is cp prolonged at 104 msec. QT interval is normal. T waves are Inverted in leads aVL, aVR. Interpreted by me. Reviewed by me. Administered Medications: 02:36 Drug: Ketorolac IVP 15 mg IVP once Route: IVP; Site: right forearm; bm8 03:37 Follow up: Response: No adverse reaction bm8 02:36 Drug: NS 0.9% IV 1000 ml IV at 1 bolus Per protocol; to be given as a bolus over 60 bm8 minutes Route: IV; Rate: 1 bolus; Site: right forearm; 03:37 Follow up: Response: No adverse reaction; IV Status: Completed infusion; IV Intake: bm8 1000ml 03:05 Drug: D50W IVP 50 ml IVP once; (1 amp) Route: IVP; Site: right wrist; al5 03:37 Follow up: Response: No adverse reaction bm8 04:27 Follow up: Response: No adverse reaction bm8 04:26 Drug: D50W IVP 50 ml IVP once; (1 amp) Route: IVP; Site: right forearm; bm8 04:58 Follow up: Response: No adverse reaction bm8 05:44 Drug: D50W IVP 50 ml IVP once; (1 amp) Route: IVP; Site: right forearm; bm8 06:00 Follow up: Response: No adverse reaction bm8 06:12 Drug: Solu-CORTEF IVP 100 mg IVP once Route: IVP; Site: right forearm; bm8 06:40 Follow up: Response: No adverse reaction bm8 06:40 Drug: D5-1/2 NS IV 1000 ml IV at 100 ml/hr continuous Route: IV; Rate: 100 ml/hr; Site: bm8 right forearm; Disposition: 06:17 Co-signature as Attending Physician, Naveen Cunningham MD I agree with the assessment and aren plan of care. Disposition Summary: 07/30/24 06:16 Hospitalization Ordered Notes: Hospitalization Status: Inpatient Admission aren Condition: Fair aren Problem: new aren Symptoms: have improved aren Bed/Room Type: Standard aren Provider: Taco Andujar(07/30/24 06:37) aren Location: Intensive Care Unit(07/30/24 06:54) vk Room Assignment: 1-(07/30/24 06:54) vk Diagnosis - Diabetes mellitus due to underlying condition with hypoglycemia aren - Adverse effect of insulin and oral hypoglycemic [antidiabetic] drugs aren - Adverse effect of unspecified drugs, medicaments and biological substances - aren accidental LUNESTA OVERDOSE Forms: - Medication Reconciliation Form aren - SBAR form aren - Leadership Thank You Letter aren Signatures: Dispatcher [employer] EDNaveen Macias MD MD cha Page, Corey, PA PA Shirley Aragon Brad, RN RN bm8 Aleta Russell, RN RN al5 Corrections: (The following items were deleted from the chart) 02:00 02:00 ACETAMINOPHEN+C.LAB.BRZ ordered. EDMS EDMS 02:00 02:00 BASIC METABOLIC PANEL+C.LAB.BRZ ordered. EDMS EDMS 02:00 02:00 CBC+H.LAB.BRZ ordered. EDMS EDMS 02:00 02:00 ETHANOL+C.LAB.BRZ ordered. EDMS EDMS 02:00 02:00 HEPATIC FUNCTION+C.LAB.BRZ ordered. EDMS EDMS 02:00 02:00 PROTIME (+INR)+COAG.LAB.BRZ ordered. EDMS EDMS 02:00 02:00 PTT, ACTIVATED+COAG.LAB.BRZ ordered. EDMS EDMS 02:00 02:00 SALICYLATE+C.LAB.BRZ ordered. EDMS EDMS 02:00 02:00 Urinalysis+U.LAB.BRZ ordered. EDMS EDMS 02:00 02:00 URINE DRUG SCREEN+UC.LAB.BRZ ordered. EDMS EDMS 02:25 02:17 Accucheck Blood Glucose ordered. cp bm8 06:32 06:16 [place] cha aren 06:34 06:34 BASIC METABOLIC PANEL+C.LAB.BRZ ordered. EDMS EDMS 06:37 06:32 Ronny Yu cha, cha 06:54 06:16 Telemetry/MedSurg (Inpatient) aren vk 06:54 06:16 aren
--- NOTE | 2024-07-30 06:16 | ER ---
Nurse's Notes [facility] Name: Tripp Webster Age: 59 yrs Sex: Male : 1965 Arrival Date: 07/30/2024 Time: 01:32 Bed 3 Private MD: Diagnosis: Diabetes mellitus due to underlying condition with hypoglycemia;Adverse effect of insulin and oral hypoglycemic [antidiabetic] drugs;Adverse effect of unspecified drugs, medicaments and biological substances-accidental LUNESTA OVERDOSE Presentation: 07/30 01:46 Chief complaint: EMS states: took unknown amount of Lunesta. Coronavirus screen: Client vc1 denies travel out of the [place] in the last 14 days. At this time, the client does not indicate any symptoms associated with coronavirus-19. Ebola Screen: Patient negative for fever greater than or equal to 101.5 degrees Fahrenheit, and additional compatible Ebola Virus Disease symptoms Patient denies exposure to infectious person. Patient denies travel to an Ebola-affected area in the 21 days before illness onset. No symptoms or risks identified at this time. Initial Sepsis Screen: Does the patient meet any 2 criteria? No. Patient's initial sepsis screen is negative. Does the patient have a suspected source of infection? No. Patient's initial sepsis screen is negative. Risk Assessment: Do you want to hurt yourself or someone else? Patient reports no desire to harm self or others. Note Jordyn Hernandez RN at [facility] Poison control case #[id number] Monitor under known baseline, reassess in morning. Give IV fluid if patient does not have CHF. Watch for blue discoloration of fingers, if so recheck HgB. Do tox labs (acetaminophen, salicylate), CMP, CBC, EKG, and UDS. Onset of symptoms was July 30, 2024. 01:46 Acuity: MIRIAM 2 vc1 01:46 Method Of Arrival: EMS: [facility] vc1 Triage Assessment: 02:07 General: Appears in no apparent distress. comfortable, Behavior is calm, cooperative, bm8 appropriate for age. General: ems states that pt took "too many Lunesta tonight. He got his RX filled on the 8th with 30 pills, tonight he only has two left". Pain: Complains of pain in left shoulder Pain currently is 5 out of 10 on a pain scale. Quality of pain is described as crampy, Aggravated by exercise, increased activity, repositioning. EENT: No deficits noted. No signs and/or symptoms were reported regarding the EENT system. Neuro: Level of Consciousness is obeys commands, lethargic, Oriented to person, place, time, situation, Appropriate for age. Cardiovascular: Denies chest pain, Capillary refill < 3 seconds in bilateral fingers Patient's skin is warm and dry. Rhythm is sinus rhythm. Respiratory: Airway is patent Trachea midline Respiratory effort is even, unlabored, Respiratory pattern is regular, symmetrical, Breath sounds are clear bilaterally. GI: No signs and/or symptoms were reported involving the gastrointestinal system. : No signs and/or symptoms were reported regarding the genitourinary system. Derm: No signs and/or symptoms reported regarding the dermatologic system. Musculoskeletal: No signs and/or symptoms reported regarding the musculoskeletal system. Historical: - Allergies: 02:07 No Known Allergies; bm8 - PMHx: 02:07 BPH; CAD; depressive disorder; Diabetes - IDDM; GERD; Hypercholesterolemia; bm8 Hypertension; Myocardial infarction; neuropathy; - PSHx: 02:07 cardiac stents; Coronary artery bypass graft; toe amputation; bm8 - Immunization history:: Adult Immunizations up to date. - Infectious Disease History:: Denies. - Social history:: Smoking status: Patient denies any tobacco usage or history of. - Family history:: not pertinent. Screenin:10 [facility] ED Fall Risk Assessment (Adult) History of falling in the last 3 months, bm8 including since admission No falls in past 3 months (0 pts) Confusion or Disorientation Yes (5 pts) Intoxicated or Sedated Yes (3 pts) Impaired Gait Yes (1 pt) Mobility Assist Device Used No (0 pt) Altered Elimination No (0 pt) Score/Fall Risk Level 3 or more points = High Risk Oriented to surroundings, Maintained a safe environment, Educated pt \\T\\ family on fall prevention, incl call for assistance when getting out of bed, Assessed \\T\\ reinforced patient's understanding of fall precautions, Provided non-skid footwear, Hourly rounding (assess needs \\T\\ fall precautionary measures) done, Used gait belt as appropriate Implemented a Fall Risk Plan of Care, Apply high fall risk patient identification: yellow non skid footwear/ fall signage. Abuse screen: Denies threats or abuse. Nutritional screening: No deficits noted. Tuberculosis screening: No symptoms or risk factors identified. Assessment: 02:10 Reassessment: Patient appears in no apparent distress at this time. No changes from bm8 previously documented assessment. Patient and/or family updated on plan of care and expected duration. Pain level reassessed. 03:35 Reassessment: Patient appears in no apparent distress at this time. Patient and/or bm8 family updated on plan of care and expected duration. Pain level reassessed. pt is resting with eyes closed breathing is even unlabored with symmetrical rise and fall of chest Patient denies pain at this time. 04:57 Reassessment: Patient appears in no apparent distress at this time. Patient and/or bm8 family updated on plan of care and expected duration. Pain level reassessed. Patient states symptoms have improved. 05:59 Reassessment: Patient appears in no apparent distress at this time. No changes from bm8 previously documented assessment. Patient and/or family updated on plan of care and expected duration. Pain level reassessed. Patient denies pain at this time. 06:40 Reassessment: Patient and/or family updated on plan of care and expected duration. Pain bm8 level reassessed. pt is resting with eyes closed breathing is even unlabored with symmetrical rise and fall of chest. General: Appears in no apparent distress. comfortable, Behavior is drowsy, quiet. Pain: Denies pain. Neuro: Level of Consciousness is obeys commands, Oriented to person. Cardiovascular: Heart tones S1 S2 present Capillary refill < 3 seconds in bilateral fingers Patient's skin is warm and dry. Rhythm is sinus rhythm. Respiratory: Airway is patent Trachea midline Respiratory effort is even, unlabored, Respiratory pattern is regular, symmetrical, Breath sounds are clear bilaterally. GI: No signs and/or symptoms were reported involving the gastrointestinal system. : No signs and/or symptoms were reported regarding the genitourinary system. EENT: No signs and/or symptoms were reported regarding the EENT system. Derm: No signs and/or symptoms reported regarding the dermatologic system. Musculoskeletal: No signs and/or symptoms reported regarding the musculoskeletal system. Overdose: 02:46 [place] Suicide Severity Screening:. vc1 Vital Signs: 01:46 BP 128 / 63; Pulse 83; Temp 97.8; Pulse Ox 98% ; Weight 97.52 kg; Height 5 ft. 11 in. ; vc1 02:10 BP 132 / 67; Pulse 95; Resp 18; Temp 97.8; Pulse Ox 99% ; Pain 5/10; bm8 03:35 BP 143 / 55; Pulse 87; Resp 18; Temp 97.8; Pulse Ox 95% ; Pain 3/10; bm8 04:57 BP 160 / 57; Pulse 84; Resp 18; Temp 97.8; Pulse Ox 98% on R/A; Pain 0/10; bm8 05:59 BP 121 / 77; Pulse 68; Resp 18; Temp 97.8; Pulse Ox 99% ; Pain 0/10; bm8 06:40 BP 133 / 55; Pulse 75; Resp 18; Temp 97.8; Pulse Ox 97% ; Pain 0/10; bm8 01:46 Body Mass Index 29.99 (97.52 kg, 180.34 cm) vc1 02:10 Pain Scale: Adult bm8 03:35 Pain Scale: Adult bm8 04:57 Pain Scale: Adult bm8 05:59 Pain Scale: Adult bm8 06:40 Pain Scale: Adult bm8 Fausto Coma Score: 02:10 Eye Response: spontaneous(4). Motor Response: obeys commands(6). Verbal Response: bm8 oriented(5). Total: 15. 03:35 Eye Response: spontaneous(4). Motor Response: obeys commands(6). Verbal Response: bm8 oriented(5). Total: 15. 04:57 Eye Response: to voice(3). Motor Response: obeys commands(6). Verbal Response: bm8 confused(4). Total: 13. 05:59 Eye Response: spontaneous(4). Motor Response: obeys commands(6). Verbal Response: bm8 oriented(5). Total: 15. ED Course: 01:35 Patient arrived in ED. vc1 01:45 Danyel Henning, KAMILLA is Primary Nurse. bm8 01:55 Triage completed. vc1 01:58 Naveen Casey PA is PHCP. cp 01:59 Naveen Cunningham MD is Attending Physician. cp 02:07 Arm band placed on left wrist. bm8 02:10 Patient has correct armband on for positive identification. Placed in gown. Bed in low bm8 position. Call light in reach. Side rails up X 1. Client placed on continuous cardiac and pulse oximetry monitoring. NIBP monitoring applied. horse show judge on. Pulse ox on. NIBP on. Door closed. Noise minimized. Warm blanket given. Pillow given. Verbal reassurance given. Head of bed elevated. 02:10 No provider procedures requiring assistance completed. Initial lab(s) drawn, by queenie crow sent to lab. EKG done, by ED staff, reviewed by Naveen AYALA. Maintain EMS IV. Dressing intact. Good blood return noted. Site clean \\T\\ dry. Gauge \\T\\ site: 20 right wrist. Flushed with 10 mL NS IV Flushed right forearm with 5 ml normal saline. Patient maintains SpO2 saturation greater than 95% on room air. 02:35 XRAY Shoulder LEFT 2 view In Process Unspecified. EDMS 06:14 Raven Hull MD is Hospitalizing Provider. aren 06:32 Ronny Yu MD is Hospitalizing Provider. aren 06:37 Taco Andujar MD is Hospitalizing Provider. aren 07:33 Patient admitted, IV remains in place. bp Administered Medications: 02:36 Drug: Ketorolac IVP 15 mg IVP once Route: IVP; Site: right forearm; bm8 03:37 Follow up: Response: No adverse reaction bm8 02:36 Drug: NS 0.9% IV 1000 ml IV at 1 bolus Per protocol; to be given as a bolus over 60 bm8 minutes Route: IV; Rate: 1 bolus; Site: right forearm; 03:37 Follow up: Response: No adverse reaction; IV Status: Completed infusion; IV Intake: bm8 1000ml 03:05 Drug: D50W IVP 50 ml IVP once; (1 amp) Route: IVP; Site: right wrist; al5 03:37 Follow up: Response: No adverse reaction bm8 04:27 Follow up: Response: No adverse reaction bm8 04:26 Drug: D50W IVP 50 ml IVP once; (1 amp) Route: IVP; Site: right forearm; bm8 04:58 Follow up: Response: No adverse reaction bm8 05:44 Drug: D50W IVP 50 ml IVP once; (1 amp) Route: IVP; Site: right forearm; bm8 06:00 Follow up: Response: No adverse reaction bm8 06:12 Drug: Solu-CORTEF IVP 100 mg IVP once Route: IVP; Site: right forearm; bm8 06:40 Follow up: Response: No adverse reaction bm8 06:40 Drug: D5-1/2 NS IV 1000 ml IV at 100 ml/hr continuous Route: IV; Rate: 100 ml/hr; Site: bm8 right forearm; Medication: 02:10 VIS not applicable for this client. bm8 Intake: 03:37 IV: 1000ml; Total: 1000ml. bm8 Outcome: 06:16 Decision to Hospitalize by Provider. aren 07:32 Admitted to ICU accompanied by nurse, via stretcher, room 3, with chart, Report called bp to NGUYEN KOHLI 07:32 Condition: stable 07:32 Instructed on the need for admit, 08:09 Patient left the ED. Signatures: Dispatcher [employer] EDNaveen Macias MD MD cha Page, Corey, PA Lizette Ruiz cp, RN RN Gerardo Cary, RN RN bp Kaycee Pan RN RN vc1 Danyel Henning RN RN bm8 Aleta Russell, RN RN al5
[2024-07-30] MEDS ORDERED: D5 0.45 NS 1,000 ML IV ONE (06:28)
[2024-07-30 07:09] LABS: Anion Gap 7.5 mEq/L (5.0-15.0); Potassium 3.5 mEq/L (3.5-5.1)
--- NOTE | 2024-07-30 08:15 | P.SSS ---
Patient History Date of Service: 07/30/24 Reason for admission: accidental overdose (lunesta), hypoglycemia History of Present Illness: Mr. Webster is a 59 yo with a past medical history of BPH, CAD status post CABG/stents, depressive disorder, diabetes, GERD, hypercholesterolemia, hypertension, and neuropathy. He was brought to the emergency department this morning after taking over 20 Lunesta by mistake. He denies intentional overdose. On evaluation, Poison control recommended 6 hours of observation. On labs however, Mr. Webster remained hypoglycemic in the 40s on D5 half-normal saline at 100 mL/hr and required 3 additional doses of D50 over his ER stay. He will be admitted to ICU for observation for hourly (x 4) glucose checks and observation with likely discharge in a.m. Allergies No Known Allergies Allergy (Verified 03/25/24 23:48) Home medications list reviewed: Yes Home Medications: Atorvastatin Calcium [Lipitor] 80 mg PO BEDTIME 11/20/23 Clopidogrel Bisulfate [Plavix*] 75 mg PO DAILY 11/20/23 Aspirin [Aspirin EC 81 MG] 81 mg PO DAILY 30 Days #30 tab 12/05/23 Escitalopram [Lexapro*] 20 mg PO DAILY 03/26/24 Gabapentin 800 mg PO TID 03/26/24 Insulin NPH Hum/Reg Insulin Hm [Humulin 70-30 Vial] 43 unit SQ BID 03/26/24 Insulin Regular, Human [Humulin R U-500 Kwikpen] 0 unit SQ TID 03/26/24 Quetiapine [Seroquel*] 100 mg PO BEDTIME 03/26/24 Tamsulosin [Flomax*] 0.4 mg PO DAILY 03/26/24 buPROPion HCL [Bupropion Xl] 150 mg PO DAILY 03/26/24 Furosemide 80 mg PO DAILY 30 Days #30 tab 05/21/24 - Past Medical/Surgical History Has patient received pneumonia vaccine in the past: Yes Diabetic: Yes -: Hypertension -: Diabetes mellitus type 2 insulin dependent -: CAD with prior stent -: Hyperlipidemia -: Diabetic neuropathy -: Obesity -: Sleep apnea noncompliant -: CVA -: Chronic diastolic congestive heart failure -: Stent placement x5 -: back surgery -: ble vascular sx -: Appendectomy -: Multiple debridement left great toe -: cabg 02/03/23-2v Psychosocial/ Personal History: Patient is - Family History Father -: Heart disease, Diabetes Mother -: Heart disease - Social History Smoking Status: Unknown if ever smoked Alcohol use: No CD- Drugs: No Caffeine use: No Place of Residence: Home Review of Systems 10-point ROS is otherwise unremarkable General: Malaise Eyes: Unremarkable ENT: Unremarkable Respiratory: Unremarkable Cardiovascular: Unremarkable Gastrointestinal: Unremarkable Genitourinary: Unremarkable Musculoskeletal: Unremarkable Integumentary: Unremarkable Neurological: Other (pt states he sleeps 24 hours a day), As per HPI Lymphatics: Unremarkable Physical Examination - Vital Signs Blood Pressure: 136/72 Pulse: 75 Respirations: 16 Pulse Ox (%): 99 - Physical Exam General: In no apparent distress, Oriented x3, Obese, Other (somnolent but easily arousible to voice) HEENT: Atraumatic, Normocephalic Neck: Supple Respiratory: Clear to auscultation bilaterally Cardiovascular: Regular rate/rhythm, Normal S1 S2 Capillary refill: <2 Seconds Gastrointestinal: Soft and benign Musculoskeletal: No clubbing, No swelling Integumentary: No rashes Neurological: Normal tone, Abnormal speech, Abnormal affect Lymphatics: No axilla or inguinal lymphadenopathy External genitalia: Deferred Rectal: Deferred Other Physical/Emotional Findings: Pt denies intentional overdose. States they just picked up medication from the pharmacy. - Studies Laboratory Data (last 24 hrs) 07/30/24 07/30/24 07/30/24 02:12 02:12 02:12 WBC 7.10 Hgb 11.0 L Hct 33.6 L Plt Count 255 PT 11.8 INR 1.13 APTT 28.7 Sodium 140 Potassium 3.7 BUN 32 H Creatinine 1.79 H Glucose 53 L* Total Bilirubin 0.6 AST 19 ALT 23 Alkaline Phosphatase 153 H - Disposition Disposition: ROUTINE DISCHARGE Diet: ADA Activity: Ad evelin
[2024-07-30 08:20] VITALS: O2SAT 97
[2024-07-30] MEDS: D5 0.9 NS 1,000 ML IV SCH (08:37)
[2024-07-30 08:48] VITALS: BMI 29.9
[2024-07-30] MEDS: D50W 25 GM/50 ML SYRINGE IV PRN (09:13)
[2024-07-30] MEDS ORDERED: D10W 125 ML IV PRN (11:56)
[2024-07-30] MEDS ORDERED: GLUCAGON 1 MG/VIAL IM PRN ×2 (11:56→11:57)
[2024-07-30] MEDS ORDERED: D50W 25 GM/50 ML SYRINGE IV PRN (11:57)
[2024-07-30] MEDS ORDERED: FLU (Fluarix Triv) TS24-25(6MOS UP)/PF 45 MCG/0.5 ML Syringe IM ONE (12:00)
[2024-07-30] MEDS: GABAPENTIN 400 MG CAP PO SCH (13:43)
[2024-07-30] MEDS: Oxycodone HCl/Acetaminophen 5/325 MG TAB PO PRN (13:43)
[2024-07-30] MEDS: INSULIN REGULAR (HUMAN) 100 UNIT/ML SQ SCH (13:44)
[2024-07-30] MEDS: INSULIN REGULAR (HUMAN) 100 UNIT/ML SQ ONE (15:25)
[2024-07-30] MEDS ORDERED: ONDANSETRON 4 MG/2 ML VIAL IV PRN (15:40)
[2024-07-30] MEDS ORDERED: INSULIN REGULAR (HUMAN) 100 UNIT/ML SQ SCH (16:30)
[2024-07-30] MEDS: MORPHINE 2 MG/ML SYR IV PRN (16:47)
[2024-07-30] MEDS ORDERED: INSULIN REGULAR, HUMAN 100 UNIT in NA CHLORIDE 0.9% 100 ML IV SCH (17:00)
[2024-07-30] MEDS: TAMSULOSIN 0.4 MG SR CAP PO SCH (20:41)
[2024-07-30] MEDS: ATORVASTATIN 80 MG TAB PO SCH (20:41)
[2024-07-30] MEDS: INSULIN 70/30 100 UNITS/ML SQ SCH (20:42)
[2024-07-30] MEDS: QUETIAPINE 100MG TAB PO SCH (20:42)
[2024-07-31 03:50] LABS: Specific Gravity 1.012 (1.005-1.030); Urine Bilirubin NEGATIVE (Negative); Urine Blood Negative (Negative); Urine Clarity Clear (Clear); Urine Color Colorless (Yellow); Urine Glucose 3+ (Negative); Urine Ketones NEGATIVE (Negative); Urine Microscopic Reflex YN NO UMIC; Urine Nitrite NEGATIVE (Negative); Urine Protein NEGATIVE (Negative); Urine Urobilinogen Normal (Normal)
[2024-07-31 03:58] LABS: Barbiturates NEGATIVE (NEGATIVE); Benzodiazepines NEGATIVE (NEGATIVE); Cocaine NEGATIVE (NEGATIVE); METHAMPHETAM NEGATIVE (NEGATIVE); Methadone NEGATIVE (NEGATIVE); Opiates NEGATIVE (NEGATIVE); Phencyclidine NEGATIVE (NEGATIVE); THC Cannibis NEGATIVE (NEGATIVE)
[2024-07-31 05:42] LABS: Absolute Basophils 0.1 K/uL (0-0.5); Absolute Eosinophils 0.3 K/uL (0-0.5); Absolute Lymphocytes (CBC) 1.7 K/uL (0.7-4.9); Absolute Monocytes 0.8 K/uL (0.1-1.3); Absolute Neutrophil 4.2 K/uL (1.8-8.0); Basophils % 0.8 % (0-1.3); Eosinophils % 4.8 % (0-4.4); Hematocrit 32.5 % (39.6-49.0); Hemoglobin 10.7 g/dL (13.6-17.9); Lymphocytes % 23.4 % (15.3-44.8); MCH 25.9 pg (27.0-35.0); MCV 78.3 fL (80-100); MPV 7.5 fL (7.6-11.3); Monocytes % 11.4 % (3.3-12.3); Neutrophils % 59.6 % (41.7-73.7); Platelets 230 thou/uL (152-406); RBC Red Blood Cell Count 4.15 M/uL (4.33-5.43); Red Cell Distribution Width 17.5 % (12.1-15.2)
[2024-07-31 06:10] LABS: Anion Gap 6.7 mEq/L (5.0-15.0); Potassium 3.7 mEq/L (3.5-5.1)
[2024-07-31] MEDS: ASPIRIN EC 81 MG TAB PO SCH (08:29)
[2024-07-31] MEDS: BUPROPION HCL XL 150 MG TAB PO SCH (08:30)
[2024-07-31] MEDS: CLOPIDOGREL 75 MG TABLET PO SCH (08:30)
[2024-07-31] MEDS: ESCITALOPRAM 20 MG TAB PO SCH (08:30)
[2024-07-31] MEDS: FUROSEMIDE 40 MG TABLET PO SCH (08:30)
[2024-07-31 12:12] VITALS: BP 133/56; TEMP 97.3
--- NOTE | 2024-08-07 12:39 | EKG ---
Test Date: 2024-07-30 Test Time: 01:41:31 Telephone Lines Repairer: TIFFANY MEASUREMENT RESULTS: Intervals: Rate: 85 FL: 162 QRSD: 104 QT: 366 QTc: 435 [place]: P: 67 FL: 162 QRS: 58 T: 86 INTERPRETIVE STATEMENTS: Normal sinus rhythm Nonspecific ST and T wave abnormality Abnormal ECG Compared to ECG 05/19/2024 20:11:20 ST (T wave) deviation now present Electronically Signed On 08-07-24 12:21:34 DEAF TEACHER by Torin Hernández
== END 2024-07-31 13:35 | disposition home or self-care (01) | DRG 918 ==
LOC: ER 01:32 → 3RD-ICU 06:31 → OBSVTOIN 17:58
PROVIDERS: ADMIT Internal Medicine Sleep Medicine; ATTEND Hospitalist
DX: T42.6X1A Poisoning by other antiepileptic and sedative-hypnotic drugs, accidental (unintentional), initial encounter (principal); I50.32 Chronic diastolic (congestive) heart failure; E11.649 Type 2 diabetes mellitus with hypoglycemia without coma; I11.0 Hypertensive heart disease with heart failure; I48.91 Unspecified atrial fibrillation; E11.40 Type 2 diabetes mellitus with diabetic neuropathy, unspecified; E66.9 Obesity, unspecified; Z79.4 Long term (current) use of insulin; K21.9 Gastro-esophageal reflux disease without esophagitis; I25.2 Old myocardial infarction; Z95.5 Presence of coronary angioplasty implant and graft; Z68.30 Body mass index [BMI] 30.0-30.9, adult; N40.0 Benign prostatic hyperplasia without lower urinary tract symptoms
CPT/HCPCS: 36415; 80048; 80076; 80143; 80179; 80307; 81003; 82077; 82947; 83036; 83525; 85025; 85610; 85730; 93005; 99285; G0378; J1720; J1815; J2270; J7030; J7042; J7799

== ENCOUNTER 2024-08-20 09:51 | Inpatient (IN) | payer OTHER ==
[2024-08-20] MEDS ORDERED: METOCLOPRAMIDE 10 MG/2mL INJ ONE (10:13)
[2024-08-20] MEDS ORDERED: FAMOTIDINE 20 MG/2 ML VIAL IV ONE (10:13)
[2024-08-20] MEDS ORDERED: MORPHINE 4 MG/ML SYR ONE (10:13)
[2024-08-20] MEDS ORDERED: NA CHLORIDE 0.9% 1,000 ML ONE ×3 (10:13→16:08)
[2024-08-20 10:44] LABS: Absolute Eosinophils 0.4 K/uL (0-0.5); Absolute Monocytes 1.2 K/uL (0.1-1.3); Absolute Neutrophil 9.5 K/uL (1.8-8.0); Basophils % 0.2 % (0-1.3); Eosinophils % 3.3 % (0-4.4); Hematocrit 33.7 % (39.6-49.0); Hemoglobin 10.9 g/dL (13.6-17.9); Lymphocytes % 8.4 % (15.3-44.8); MCH 25.3 pg (27.0-35.0); MCHC 32.3 g/dL (32.0-36.0); MCV 78.2 fL (80-100); MPV 7.5 fL (7.6-11.3); Neutrophils % 78.1 % (41.7-73.7); Platelets 311 thou/uL (152-406); RBC Red Blood Cell Count 4.32 M/uL (4.33-5.43); Red Cell Distribution Width 17.7 % (12.1-15.2)
[2024-08-20 10:47] LABS: Sqamous Epithelial None Seen /HPF (None Seen); Urine Bacteria None Seen /HPF (<20); Urine Bilirubin NEGATIVE (Negative); Urine Blood Trace (Negative); Urine Clarity Clear (Clear); Urine Color Light-Yellow (Yellow); Urine Culture Reflex Order NOT NEEDED; Urine Glucose 3+ (Negative); Urine Ketones 1+ (Negative); Urine Microscopic Reflex YN ORDER UMIC; Urine Nitrite NEGATIVE (Negative); Urine Protein 1+ (Negative); Urine RBC <5 /HPF (None Seen); Urine Urobilinogen Normal (Normal); Urine WBC <5 /HPF (<5); Urine pH 5.5 (5.0-7.0)
[2024-08-20] MEDS ORDERED: HYDROMORPHONE HCL 1 MG/ML INJ ONE ×2 (10:54→13:38)
[2024-08-20] MEDS ORDERED: droPERidol 5 MG/2 ML VIAL ONE (10:54)
[2024-08-20 10:56] LABS: Albumin 3.2 g/dL (3.4-5.0); Albumin/Globulin Ratio 0.7 (1.1-1.8); Anion Gap 11.4 mEq/L (5.0-15.0); Bilirubin Total 0.8 mg/dL (0.2-1.0); Globulin 4.5 g/dL (2.3-3.5); Potassium 3.4 mEq/L (3.5-5.1); Protein, Total 7.7 g/dL (6.4-8.2)
--- NOTE | 2024-08-20 11:40 | RAD REPORT ---
EXAMINATION: CT ABDOMEN AND PELVIS WITH CONTRAST CLINICAL INDICATION: Abdominal pain TECHNIQUE: CT abdomen and pelvis was performed, after the administration of 100 cc Isovue-300.. [place] and coronal reconstructions were obtained. One or more of the following dose reduction techniques were used: Automated exposure control, adjustment of the mA and kV according to patient si ze, and iterative reconstruction. Unless otherwise specified, incidental findings do not require dedicated imaging follow-up. [id number]. Oral contrast was not given which limits evaluation of bowel and appendix. COMPARISON: .2019 FINDINGS: Mild areas of atelectasis lower lobes. Small right pleural effusion. Pancreas is somewhat atrophic. Cholelithiasis area gallbladder wall does not appear thickened. The spleen, liver, adrenals kidney unremarkable. [id number] umbilical hernia contains fat No evidence of diverticulitis. : IMPRESSION: Cholelithiasis without evidence of cholecystitis
--- NOTE | 2024-08-20 12:39 | RAD REPORT ---
EXAM: Right upper quadrant ultrasound. CLINICAL HISTORY: Abdominal pain COMPARISON: CT August 20, 2024 FINDINGS: Multiple small gallstones. Gallbladder wall not thickened. Biliary tree normal caliber IMPRESSION: Cholelithiasis without evidence of cholecystitis
--- NOTE | 2024-08-20 12:40 | ER ---
Nurse's Notes [facility] Name: Tripp Webster Age: 59 yrs Sex: Male : 1965 Arrival Date: 08/20/2024 Time: 09:51 Bed 13 Private MD: Diagnosis: Other cholelithiasis without obstruction;Nausea;Upper abdominal pain, unspecified-intractable Presentation: 08/20 09:53 Chief complaint: EMS states: ABD PAIN STARTED YESTERDAY AT 1700 AFTER EATING A HOT db BREAD. COMPLAINS OF NAUSEA AND ABD PAIN TODAY. Coronavirus screen: Client denies travel out of the [place] in the last 14 days. At this time, the client does not indicate any symptoms associated with coronavirus-19. Ebola Screen: Patient negative for fever greater than or equal to 101.5 degrees Fahrenheit, and additional compatible Ebola Virus Disease symptoms Patient denies exposure to infectious person. Patient denies travel to an Ebola-affected area in the 21 days before illness onset. No symptoms or risks identified at this time. Initial Sepsis Screen: Does the patient meet any 2 criteria? No. Patient's initial sepsis screen is negative. Does the patient have a suspected source of infection? No. Patient's initial sepsis screen is negative. Risk Assessment: Do you want to hurt yourself or someone else? Patient reports no desire to harm self or others. Onset of symptoms was August 20, 2024. 09:53 Method Of Arrival: EMS: [facility] db 09:53 Acuity: MIRIAM 3 db Triage Assessment: 09:53 General: Appears in no apparent distress. uncomfortable, Behavior is cooperative, db anxious. Pain: Complains of pain in abdomen. Pain: Complains of pain in right leg and left leg. Neuro: Level of Consciousness is awake, alert, obeys commands, Oriented to person, place, time, situation. Respiratory: Airway is patent Respiratory effort is even, unlabored, Respiratory pattern is regular, symmetrical. GI: Reports diarrhea, nausea. Derm: Wound noted right leg and left leg. Historical: - Allergies: 10:36 No Known Allergies; db - PMHx: 10:36 CAD; Diabetes - IDDM; depressive disorder; GERD; Hypercholesterolemia; Myocardial db infarction; Hypertension; BPH; neuropathy; - PSHx: 10:36 cardiac stents; Coronary artery bypass graft; toe amputation; db - Immunization history:: Adult Immunizations unknown. - Infectious Disease History:: Denies. - Social history:: Smoking status: Patient denies any tobacco usage or history of. Screenin:36 [facility] ED Fall Risk Assessment (Adult) History of falling in the last 3 months, db including since admission No falls in past 3 months (0 pts) Confusion or Disorientation No (0 pts) Intoxicated or Sedated No (0 pts) Impaired Gait No (0 pts) Mobility Assist Device Used No (0 pt) Altered Elimination No (0 pt) Score/Fall Risk Level 0 - 2 = Low Risk Oriented to surroundings, Maintained a safe environment. Abuse screen: Denies threats or abuse. Denies injuries from another. Nutritional screening: No deficits noted. Tuberculosis screening: No symptoms or risk factors identified. Assessment: 10:05 Reassessment: Patient appears in no apparent distress at this time. Patient and/or db family updated on plan of care and expected duration. Pain level reassessed. Patient is alert, oriented x 3, equal unlabored respirations, skin warm/dry/pink. PATIENT AMBULATORY TO RESTROOM. 10:45 Reassessment: PT CALLED REQUESTING PAIN MEDICATION. PROVIDER NOTIFIED SEE AUG. db 11:15 Reassessment: Patient appears in no apparent distress at this time. Patient and/or db family updated on plan of care and expected duration. Pain level reassessed. Patient is alert, oriented x 3, equal unlabored respirations, skin warm/dry/pink. PATIENT PROVIDED GLYCERIN SWABS. 11:15 Reassessment: PATIENT AMBULATORY TO RESTROOM. db 12:20 Reassessment: Patient appears in no apparent distress at this time. Patient and/or kj2 family updated on plan of care and expected duration. Pain level reassessed. Patient is alert, oriented x 3, equal unlabored respirations, skin warm/dry/pink. 13:12 Reassessment: Patient appears in no apparent distress at this time. Patient and/or kj2 family updated on plan of care and expected duration. Pain level reassessed. Patient is alert, oriented x 3, equal unlabored respirations, skin warm/dry/pink. 15:17 Reassessment: Patient appears in no apparent distress at this time. Patient and/or kj2 family updated on plan of care and expected duration. Pain level reassessed. Patient is alert, oriented x 3, equal unlabored respirations, skin warm/dry/pink. Vital Signs: 09:53 BP 181 / 68; Pulse 95; Resp 16; Temp 98.3; Pulse Ox 98% ; Weight 111.13 kg; Height 5 db ft. 11 in. ; Pain 9/10; 10:30 BP 189 / 84; Pulse 105; Resp 18; Pulse Ox 99% ; db 11:38 BP 196 / 77; Pulse 106; Resp 28; Pulse Ox 96% ; db 12:20 BP 188 / 95; Pulse 102; Resp 20; Pulse Ox 100% on R/A; kj2 13:12 BP 180 / 90; Pulse 102; Resp 20; Pulse Ox 100% on R/A; kj2 13:45 BP 184 / 89; Pulse 96; Resp 20; Pulse Ox 100% on R/A; kj2 15:17 BP 177 / 68; Pulse 80; Resp 20; Pulse Ox 98% ; kj2 09:53 Body Mass Index 34.17 (111.13 kg, 180.34 cm) db 09:53 Pain Scale: Adult db ED Course: 10:02 Patient arrived in ED. bc6 10:02 Naveen Casey PA is PHCP. cp 10:02 Naveen Cunningham MD is Attending Physician. cp 10:10 Nadira Garcia, KAMILLA is Primary Nurse. db 10:30 Initial lab(s) drawn, by me, sent to lab. Urine collected: clean catch specimen. db Inserted saline lock: 20 gauge in right antecubital area, using aseptic technique. Blood collected. Flushed with 10 mL NS. 10:36 Patient has correct armband on for positive identification. Bed in low position. Call db light in reach. Side rails up X2. Client placed on continuous cardiac and pulse oximetry monitoring. NIBP monitoring applied. athletic monitor on. Pulse ox on. NIBP on. 10:48 Triage completed. db 11:31 CT Abd/Pelvis - IV Contrast Only In Process Unspecified. EDMS 12:09 US Abdomen Limited: gallbladder In Process Unspecified. EDMS 12:15 Provided Education on: call light. kj2 12:26 XRAY Chest (1 view) In Process Unspecified. EDMS 12:38 Raven Hull MD is Hospitalizing Provider. cp 13:14 Blood Culture Adult (2) Sent. kj2 13:14 Lactate w/ 2H reflex if indic. Sent. kj2 17:41 No provider procedures requiring assistance completed. Patient admitted, IV remains in kj2 place. 17:42 Arm band placed on. kj2 Administered Medications: 10:25 Drug: Famotidine IVP 20 mg IVP once; dilute with 10 mL 0.9% NaCl; give over 2 minutes db Route: IVP; Site: right antecubital; 11:09 Follow up: Response: No adverse reaction db 10:25 Drug: morphine IVP or IV 4 mg IVP once over 4 mins Route: IVP; Infused Over: 4 mins; db Site: right antecubital; 11:09 Follow up: Response: No adverse reaction; Pain is unchanged, physician notified db 10:25 Drug: NS 0.9% IV 1000 ml IV at 1 bolus Per protocol; to be given as a bolus over 60 db minutes Route: IV; Rate: 1 bolus; Site: right antecubital; 10:25 Drug: metoCLOPramide IVP 10 mg IVP once; over 1 to 2 minutes Route: IVP; Site: right db antecubital; 10:45 CANCELLED (Physician Discretion): ativan2 mg IVP once cp 11:00 Drug: HYDROmorphone IVP 1 mg IVP once Route: IVP; Site: right antecubital; db 11:05 Drug: Droperidol IVP 1.25 mg IVP once Route: IVP; Site: right antecubital; db 13:13 Drug: Rocephin IV 1 grams IV at calculated rate once; Given slow IV push per pharmacy kj2 instructions Route: IV; Rate: calculated rate; Site: right antecubital; 13:14 Drug: Ketorolac IVP 15 mg IVP once Route: IVP; Site: right antecubital; kj2 17:43 Follow up: Response: No adverse reaction kj2 13:14 Drug: NS 0.9% IV 1000 ml IV at 125 ml/hr once Route: IV; Rate: 125 ml/hr; Site: right kj2 antecubital; 17:43 Follow up: Response: No adverse reaction kj2 14:05 Drug: Metoprolol IVP 5 mg IVP once; Hold for SBP <100 or HR <60. Route: IVP; Site: kj2 right antecubital; 17:42 Follow up: Response: No adverse reaction kj2 14:06 Drug: HYDROmorphone IVP 1 mg IVP once Route: IVP; Site: right antecubital; kj2 17:42 Follow up: Response: No adverse reaction kj2 Medication: 10:36 VIS not applicable for this client. db Outcome: 12:40 Decision to Hospitalize by Provider. cp 17:42 Admitted to Med/surg accompanied by tech, via wheelchair, kj2 17:42 Condition: stable 17:42 Instructed on the need for admit, 17:52 Patient left the ED. kj2 Signatures: Dispatcher [employer] EDMS Naveen Casey PA PA cp Benton, Danielle, RN RN db Vira Draper 6 Rubia Serrano, RN RN kj2 Corrections: (The following items were deleted from the chart) 10:37 10:36 PMHx: Hypercholesterolemia; db db 10:37 10:36 PMHx: Myocardial infarction; db db
--- NOTE | 2024-08-20 12:40 | EDPHYS ---
Physician Documentation [facility] Name: Tripp Webster Age: 59 yrs Sex: Male : 1965 Arrival Date: 08/20/2024 Time: 09:51 Bed 13 Private MD: ED Physician Naveen Cunningham HPI: 08/20 10:10 This 59 yrs old Male presents to ER via EMS with complaints of Abdominal Pain. cp 10:10 The patient presents with abdominal pain in the epigastric area, in the upper abdomen. cp Onset: The symptoms/episode began/occurred yesterday. The symptoms radiate to back. 10:10 Associated signs and symptoms: Pertinent positives: nausea, Pertinent negatives: cp constipation, diarrhea, fever, palpitations, shortness of breath, testicular pain, vomiting blood. The symptoms are described as constant. Historical: - Allergies: 10:36 No Known Allergies; db - PMHx: 10:36 CAD; Diabetes - IDDM; depressive disorder; GERD; Hypercholesterolemia; Myocardial db infarction; Hypertension; BPH; neuropathy; - PSHx: 10:36 cardiac stents; Coronary artery bypass graft; toe amputation; db - Immunization history:: Adult Immunizations unknown. - Infectious Disease History:: Denies. - Social history:: Smoking status: Patient denies any tobacco usage or history of. ROS: 10:15 Constitutional: Negative for body aches, chills, fever, poor PO intake, cp 10:15 Eyes: Negative for injury, pain, redness, and discharge, cp 10:15 ENT: Negative for drainage from ear(s), ear pain, sore throat, difficulty swallowing, difficulty handling secretions, 10:15 Cardiovascular: Negative for chest pain, edema, palpitations, 10:15 Respiratory: Negative for cough, shortness of breath, wheezing, 10:15 Abdomen/GI: Positive for abdominal pain, nausea, Negative for vomiting, diarrhea, constipation, 10:15 Back: Negative for radiated pain, 10:15 : Negative for urinary symptoms, hematuria, difficulty urinating, testicular pain 10:15 Neuro: Negative for altered mental status, dizziness, headache, weakness, 10:15 All other systems are negative, Exam: 10:20 Constitutional: The patient appears in no acute distress, alert, awake, cp non-diaphoretic, non-toxic, well developed, well nourished, obese, 10:20 Head/Face: Normocephalic, atraumatic. cp 10:20 Eyes: Periorbital structures: appear normal, Conjunctiva: normal, no exudate, no injection, Sclera: no appreciated abnormality, Lids and lashes: appear normal, bilaterally, 10:20 ENT: External ear(s): are unremarkable, Nose: is normal, Mouth: Lips: moist, Oral mucosa: moist, Posterior pharynx: Airway: no evidence of obstruction, patent, 10:20 Chest/axilla: Inspection: normal, Palpation: is normal, no crepitus, no tenderness, 10:20 Cardiovascular: Rate: normal, Rhythm: regular, Edema: is not appreciated, JVD: is not appreciated, 10:20 Respiratory: the patient does not display signs of respiratory distress, Respirations: normal, no use of accessory muscles, no retractions, labored breathing, is not present, Breath sounds: are clear throughout, no decreased breath sounds, no stridor, no wheezing, 10:20 Abdomen/GI: Inspection: obese Bowel sounds: active, all quadrants, Palpation: soft, in all quadrants, severe abdominal tenderness, in the epigastric area and right upper quadrant, rebound tenderness, is not appreciated, voluntary guarding, is elicited in the epigastric area and right upper quadrant, 10:20 Back: CVA tenderness, is absent, 10:20 Neuro: Orientation: to person, place \T\ time. Mentation: is normal, Motor: moves all fours, strength is normal, Gait: is steady, Vital Signs: 09:53 BP 181 / 68; Pulse 95; Resp 16; Temp 98.3; Pulse Ox 98% ; Weight 111.13 kg; Height 5 db ft. 11 in. ; Pain 9/10; 10:30 BP 189 / 84; Pulse 105; Resp 18; Pulse Ox 99% ; db 11:38 BP 196 / 77; Pulse 106; Resp 28; Pulse Ox 96% ; db 12:20 BP 188 / 95; Pulse 102; Resp 20; Pulse Ox 100% on R/A; kj2 13:12 BP 180 / 90; Pulse 102; Resp 20; Pulse Ox 100% on R/A; kj2 13:45 BP 184 / 89; Pulse 96; Resp 20; Pulse Ox 100% on R/A; kj2 15:17 BP 177 / 68; Pulse 80; Resp 20; Pulse Ox 98% ; kj2 09:53 Body Mass Index 34.17 (111.13 kg, 180.34 cm) db 09:53 Pain Scale: Adult db MDM: 10:04 Medical Screening Exam initiated aren 14:15 Data reviewed: vital signs, nurses notes, lab test result(s), radiologic studies, CT cp scan, ultrasound, and as a result, I will admit patient. 14:15 Differential diagnosis: bowel obstruction, cholecystitis, Cholelithiasis, cp diverticulitis, non-specific abd pain, pancreatitis, Peptic Ulcer Disease, Perf. Duodenal Ulcer, Perf. Gastric Ulcer. Management of patient was discussed with the following: Kinesiologist: DR Hay with consult for surgery after discussion and patient to be admitted to hospitalist services. I considered the following discharge prescriptions or medication management in the emergency department Medications were administered in the Emergency Department. See AUG. 08/20 10:04 Order name: CBC with Diff; Complete Time: 10:50 08/20 10:50 Interpretation: Normal except: WBC 12.10; RBC 4.32; HGB 10.9; HCT 33.7; MCV 78.2; MCH cp 25.3; RDW 17.7; MPV 7.5; WANDY% 78.1; LYM% 8.4; NEUT A 9.5. 08/20 10:04 Order name: CMP; Complete Time: 11:00 08/20 11:00 Interpretation: Normal except: K 3.4; CL 108; GLUC 215; BUN 29; CRE 1.38; GFR 58; ALK cp 153; ALB 3.2; GLOB 4.5; A/G 0.7. 08/20 10:04 Order name: Lipase; Complete Time: 11:00 08/20 11:00 Interpretation: LIP 15; Reviewed. 08/20 10:04 Order name: Urinalysis w/ reflexes; Complete Time: 10:50 08/20 10:50 Interpretation: Normal except: UGLUC 3+; UKET 1+; UBLD Trace; UPROT 1+. 08/20 12:26 Order name: Lactate w/ 2H reflex if indic. 08/20 12:26 Order name: Blood Culture Adult (2) 08/20 13:55 Order name: Troponin High Sensitivity 08/20 13:55 Order name: BNP cp 08/20 13:55 Order name: PT-INR cp 08/20 13:55 Order name: Ptt, Activated cp 08/20 14:38 Order name: Basic Metabolic Panel EDMS 08/20 14:38 Order name: Basic Metabolic Panel EDMS 08/20 14:38 Order name: Basic Metabolic Panel EDMS 08/20 14:38 Order name: Basic Metabolic Panel EDMS 08/20 14:38 Order name: CBC with Automated Diff EDMS 08/20 14:38 Order name: CBC with Automated Diff EDMS 08/20 14:38 Order name: CBC with Automated Diff EDMS 08/20 14:38 Order name: CBC with Automated Diff EDMS 08/20 14:38 Order name: Magnesium EDMS 08/20 14:38 Order name: Magnesium EDMS 08/20 14:38 Order name: Magnesium EDMS 08/20 14:38 Order name: Magnesium EDMS 08/20 14:38 Order name: NT PRO-BNP EDMS 08/20 14:38 Order name: NT PRO-BNP EDMS 08/20 14:38 Order name: NT PRO-BNP EDMS 08/20 14:38 Order name: NT PRO-BNP EDMS 08/20 14:38 Order name: Troponin High Sensitivity EDMS 08/20 14:38 Order name: Urinalysis w/ reflexes EDMS 08/20 14:39 Order name: Troponin High Sensitivity EDMS 08/20 14:39 Order name: Troponin High Sensitivity EDMS 08/20 14:39 Order name: Troponin High Sensitivity EDMS 08/20 14:43 Order name: Hemoglobin A1c EDMS 08/20 14:43 Order name: Hemoglobin A1c EDMS 08/20 14:43 Order name: Lipid Profile EDMS 08/20 14:43 Order name: Lipid Profile EDMS 08/20 10:04 Order name: CT Abd/Pelvis - IV Contrast Only; Complete Time: 11:46 cp 08/20 11:48 Order name: US Abdomen Limited: gallbladder; Complete Time: 12:50 cp 08/20 12:50 Interpretation: Report reviewed. cp 08/20 11:48 Order name: XRAY Chest (1 view); Complete Time: 12:50 cp 08/20 13:55 Order name: EKG; Complete Time: 13:56 cp 08/20 14:21 Order name: CONS Physician Consult EDMS 08/20 14:44 Order name: CONS [facility] 08/20 10:04 Order name: IV Saline Lock; Complete Time: 10:35 cp 08/20 10:04 Order name: Labs collected and sent; Complete Time: 10:35 cp 08/20 13:55 Order name: EKG - Nurse/Tech; Complete Time: 15:17 cp Administered Medications: 10:25 Drug: Famotidine IVP 20 mg IVP once; dilute with 10 mL 0.9% NaCl; give over 2 minutes db Route: IVP; Site: right antecubital; 11:09 Follow up: Response: No adverse reaction db 10:25 Drug: morphine IVP or IV 4 mg IVP once over 4 mins Route: IVP; Infused Over: 4 mins; db Site: right antecubital; 11:09 Follow up: Response: No adverse reaction; Pain is unchanged, physician notified db 10:25 Drug: NS 0.9% IV 1000 ml IV at 1 bolus Per protocol; to be given as a bolus over 60 db minutes Route: IV; Rate: 1 bolus; Site: right antecubital; 10:25 Drug: metoCLOPramide IVP 10 mg IVP once; over 1 to 2 minutes Route: IVP; Site: right db antecubital; 10:45 CANCELLED (Physician Discretion): ativan2 mg IVP once cp 11:00 Drug: HYDROmorphone IVP 1 mg IVP once Route: IVP; Site: right antecubital; db 11:05 Drug: Droperidol IVP 1.25 mg IVP once Route: IVP; Site: right antecubital; db 13:13 Drug: Rocephin IV 1 grams IV at calculated rate once; Given slow IV push per pharmacy kj2 instructions Route: IV; Rate: calculated rate; Site: right antecubital; 13:14 Drug: Ketorolac IVP 15 mg IVP once Route: IVP; Site: right antecubital; kj2 17:43 Follow up: Response: No adverse reaction kj2 13:14 Drug: NS 0.9% IV 1000 ml IV at 125 ml/hr once Route: IV; Rate: 125 ml/hr; Site: right kj2 antecubital; 17:43 Follow up: Response: No adverse reaction kj2 14:05 Drug: Metoprolol IVP 5 mg IVP once; Hold for SBP <100 or HR <60. Route: IVP; Site: kj2 right antecubital; 17:42 Follow up: Response: No adverse reaction kj2 14:06 Drug: HYDROmorphone IVP 1 mg IVP once Route: IVP; Site: right antecubital; kj2 17:42 Follow up: Response: No adverse reaction kj2 Disposition Summary: 08/20/24 12:40 Hospitalization Ordered Notes: Hospitalization Status: Inpatient Admission cp Provider: Raven Hull cp Location: Telemetry/MedSurg (Inpatient) cp Condition: Stable cp Problem: new cp Symptoms: have improved cp Bed/Room Type: Standard cp Room Assignment: 209(08/20/24 16:40) bc6 Diagnosis - Other cholelithiasis without obstruction cp - Nausea cp - Upper abdominal pain, unspecified - intractable cp Forms: - Medication Reconciliation Form cp - SBAR form cp - Leadership Thank You Letter cp Addendum: 08/31/2024 16:22 Co-signature as Attending Physician, Naveen Cunningham MD I agree with the assessment and c kat plan of care. Signatures: Dispatcher [employer] EDGA Naveen Cunningham MD MD cha Page, Corey, PA PA cp Nadira Garcia RN RN Vira Akins6 Rubia Serrano, RN RN kj2 Corrections: (The following items were deleted from the chart) 08/20 10:37 10:36 PMHx: Hypercholesterolemia; db db 10:37 10:36 PMHx: Myocardial infarction; db db 10:45 10:44 Ativan IVP 2 mg IVP once ordered. cp cp 16:40 12:40 cp bc6 08/21 17:25 08/20 10:10 Onset: The symptoms/episode began/occurred last night, cp cp
--- NOTE | 2024-08-20 12:41 | RAD REPORT ---
Procedure: Chest Single View HISTORY: Abdominal pain COMPARISON: 2023 FINDINGS: Mild chronic appearing lung opacities. The lungs appear clear of acute infiltrate. No significant pleural effusion noted. The heart is moderately enlarged. Post surgical changes involve the chest. IMPRESSION: No acute abnormality is displayed.
[2024-08-20] MEDS ORDERED: KETOROLAC 30 MG/ML INJ ONE (12:58)
[2024-08-20] MEDS ORDERED: CEFTRIAXONE 1000 MG/VIAL ONE (12:58)
--- NOTE | 2024-08-20 14:15 | P.HP ---
Certification for Inpatient Patient admitted to: Inpatient <Elana Marquez - Last Filed: 08/20/24 17:57> Patient History Date of Service: 08/20/24 Reason for admission: Epigastric pain, cholelithiasis History of Present Illness: 59-year-old male with a past medical history Hx: CAD; Diabetes - IDDM; depressive disorder; GERD; Hypercholesterolemia; Myocardial infarction; Hypertension; BPH; neuropathy presents to the emergency room with epigastric pain, chest pain that started yesterday, progressively worse today. He reports associated diffuse abdominal tenderness, he reports nausea, no vomiting, symptoms worse with p.o. intake. He reports chest pain is substernal, described as pressure has been chronic. He denies fever, recent infection, diarrhea, plan to admit for cholelithiasis without obstruction , with surgery to consult., Chest pain, rule out [place], bilateral diabetic dorsal heel ulcers. Cardiology to consult ED evaluation CT evaluation reveals Colellithiasis,: Abdominal ultrasound Cholelithiasis without evidence of cholecystitis, WBC 12.10; RBC 4.32; HGB 10.9; HCT 33.7; MCV 78.2; MCH 25.3; RDW 17.7; MPV 7.5; WANDY% 78.1; LYM% 8.4; NEUT A 9.5. : CMP, K 3.4; CL 108; GLUC 215; BUN 29; CRE 1.38; GFR 58; ALK 153; ALB 3.2; GLOB 4.5; A/G 0.7. BNP 3380, troponin normal at 40.4, 3+ glucosuria, 1+ ketone, chest x-ray shows moderate cardiomegaly, no acute abnormality - Past Medical/Surgical History Diabetic: Yes -: Hypertension -: Diabetes mellitus type 2 insulin dependent -: CAD with prior stent -: Hyperlipidemia -: Diabetic neuropathy -: Obesity -: Sleep apnea noncompliant -: CVA -: Chronic diastolic congestive heart failure -: Stent placement x5 -: back surgery -: ble vascular sx -: Appendectomy -: Multiple debridement left great toe -: cabg 02/03/23-2v Psychosocial/ Personal History: Patient is - Family History Father -: Heart disease, Diabetes Mother -: Heart disease - Social History Alcohol use: No CD- Drugs: No Caffeine use: No <Elana Marquez - Last Filed: 08/20/24 17:57> Date of Service: 08/20/24 <HullRaven agosto - Last Filed: 08/25/24 12:07> Allergies No Known Allergies Allergy (Verified 03/25/24 23:48) Home Medications: Atorvastatin Calcium [Lipitor] 80 mg PO BEDTIME 11/20/23 Clopidogrel Bisulfate [Plavix*] 75 mg PO DAILY 11/20/23 Aspirin [Aspirin EC 81 MG] 81 mg PO DAILY 30 Days #30 tab 12/05/23 Escitalopram [Lexapro*] 20 mg PO DAILY 03/26/24 Gabapentin 800 mg PO TID 03/26/24 Insulin NPH Hum/Reg Insulin Hm [Humulin 70-30 Vial] 43 unit SQ BID 03/26/24 Insulin Regular, Human [Humulin R U-500 Kwikpen] 0 unit SQ TID 03/26/24 Quetiapine [Seroquel*] 100 mg PO BEDTIME 03/26/24 Tamsulosin [Flomax*] 0.4 mg PO DAILY 03/26/24 buPROPion HCL [Bupropion Xl] 150 mg PO DAILY 03/26/24 Furosemide 80 mg PO DAILY 30 Days #30 tab 05/21/24 Hydrocodone 10/APAP 325 [[place] 10/325] 1 tab PO Q8H PRN #30 tab 08/21/24 Ondansetron [Zofran] 4 mg PO Q6H PRN #20 tab 08/21/24 Review of Systems 10-point ROS is otherwise unremarkable <Elana Marquez - Last Filed: 08/20/24 17:57> Physical Examination - Physical Exam General: Alert, In no apparent distress, Mild distress, Other (Obese) HEENT: Atraumatic, Normocephalic, PERRLA Neck: Supple, 2+ carotid pulse no bruit Respiratory: Normal air movement, Other Cardiovascular: Normal pulses, Regular rate/rhythm, Normal S1 S2 Capillary refill: <2 Seconds Gastrointestinal: Other (Diffuse abdominal tenderness) Musculoskeletal: Other (Generalized weakness) Integumentary: Other (Bilateral heel ulcer, mild lower extremity edema, erythema) Neurological: Normal speech, Normal strength at 5/5 x4 extr, Sensation intact, Cranial nerves 3-12 intact - Studies Laboratory Data (last 24 hrs) 08/20/24 08/20/24 10:25 10:25 WBC 12.10 H Hgb 10.9 L Hct 33.7 L Plt Count 311 Sodium 142 Potassium 3.4 L BUN 29 H Creatinine 1.38 H Glucose 215 H Total Bilirubin 0.8 AST 29 ALT 20 Alkaline Phosphatase 153 H Lipase 15 <Elana Marquez - Last Filed: 08/20/24 17:57> - Studies Microbiology Data (last 24 hrs): 08/20/24 12:40 Blood - Blood Anaerobic Blood Culture - Final Staphylococcus Cohnii 08/20/24 12:40 Blood - Blood Gram Stain - Final 08/20/24 12:55 Blood - Blood Aerobic Blood Culture - Final Staphylococcus Cohnii 08/20/24 12:55 Blood - Blood Blood Culture Gram Stain - Final 08/20/24 12:55 Blood - Blood Anaerobic Blood Culture - Final Staphylococcus Cohnii 08/20/24 12:55 Blood - Blood Gram Stain - Final <Raven Hull - Last Filed: 08/25/24 12:07> Assessment and Plan - Problems (Diagnosis) (1) Cholelithiasis Status: Acute (2) Diabetic ulcer of heel Status: Acute (3) Epigastric pain Status: Acute (4) Hypertensive urgency Status: Acute (5) Insulin dependent type 1 diabetes mellitus Status: Acute (6) Hyperlipidemia Status: Chronic - Plan Assessment plan -Surgery consult cholelithiasis, diabetic foot ulcer -Cardiology consult for cardiac clearance -IV antibiotics, as needed analgesics, PPI, -Sliding scale insulin, Accu-Cheks resume home insulin -Resume home medications -Bilateral heel boots -Wound care consulted for bilateral heel ulcer -Trend troponin BNP, WBC Full code DVT Lovenox Diet diabetic Disposition Home independent prior Discharge Plan: Home - Advance Directives Does patient have a Living Will: No Does patient have a Durable POA for Healthcare: No - Code Status/Comfort Care Code Status: Full Code Critical Care: No Time Spent Managing Pts Care (In Minutes): 55 <Elana Marquez - Last Filed: 08/20/24 17:57> Date of Service: 08/20/24 Patient was seen and examined. Events of the last 24 hours have been noted. Spoke with with TRUPTI regarding patient's clinical picture after evaluating and examining the patient independently. I performed a substantial part of the MDM during this patient's care today. I personally made or approved the documented management plan and acknowledge its risk of complications. I agree with the findings and documentation provided in the TRUPTI's notes. Patient states he is feeling well and he does not really want any surgery. He is a lot of comorbidities and would prefer to delay surgery if possible. At this time patient will be admitted for observation. <Raven Hull - Last Filed: 08/25/24 12:07>
[2024-08-20 14:16] LABS: Troponin High Sensitivity 40.4 pg/mL (<58.9)
[2024-08-20 14:43] LABS: PT Prothrombin Time 12.5 SECONDS (10-13.0); PTT, Activated Partial Thromb 28.2 SECONDS (27.2-37.4); Protime INR 1.1
[2024-08-20] MEDS: FUROSEMIDE 40 MG/4 ML VIAL IV SCH (15:00)
[2024-08-20] MEDS: NA CHLORIDE 0.9% 1,000 ML IV SCH (15:00)
[2024-08-20 15:58] VITALS: BMI 34.2
[2024-08-20] MEDS ORDERED: FUROSEMIDE 40 MG/4 ML VIAL ONE (16:08)
[2024-08-20] MEDS: MORPHINE 4 MG/ML SYR IV PRN (18:22)
[2024-08-20] MEDS: GABAPENTIN 400 MG CAP PO SCH (20:35)
[2024-08-20] MEDS: ATORVASTATIN 80 MG TAB PO SCH (20:35)
[2024-08-20] MEDS: METOPROLOL TARTRATE 5 MG/5 ML INJ IV PRN (20:36)
[2024-08-20] MEDS: INSULIN REGULAR (HUMAN) 100 UNIT/ML SQ SCH (20:37)
[2024-08-20] MEDS: HYDROCODONE/APAP 7.5/325 MG TAB PO ONE (20:45)
[2024-08-21] MEDS: ONDANSETRON 4 MG/2 ML VIAL IV PRN (02:34)
[2024-08-21 06:54] LABS: Absolute Eosinophils 0.1 K/uL (0-0.5); Absolute Lymphocytes (CBC) 0.6 K/uL (0.7-4.9); Absolute Monocytes 1.4 K/uL (0.1-1.3); Absolute Neutrophil 10.7 K/uL (1.8-8.0); Basophils % 0.3 % (0-1.3); Eosinophils % 0.7 % (0-4.4); Hematocrit 33.3 % (39.6-49.0); Hemoglobin 10.7 g/dL (13.6-17.9); Lymphocytes % 4.9 % (15.3-44.8); MCH 25.6 pg (27.0-35.0); MCHC 32.2 g/dL (32.0-36.0); MCV 79.5 fL (80-100); MPV 7.6 fL (7.6-11.3); Neutrophils % 83.1 % (41.7-73.7); Platelets 322 thou/uL (152-406); RBC Red Blood Cell Count 4.19 M/uL (4.33-5.43); Red Cell Distribution Width 17.5 % (12.1-15.2)
[2024-08-21 07:21] LABS: Anion Gap 9.6 mEq/L (5.0-15.0); Magnesium 2.2 mg/dL (1.6-2.4); Potassium 3.6 mEq/L (3.5-5.1)
[2024-08-21] MEDS: TAMSULOSIN 0.4 MG SR CAP PO SCH (08:27)
[2024-08-21] MEDS: BUPROPION HCL XL 150 MG TAB PO SCH (08:27)
[2024-08-21] MEDS: CLOPIDOGREL 75 MG TABLET PO SCH (08:27)
[2024-08-21] MEDS: ESCITALOPRAM 20 MG TAB PO SCH (08:27)
[2024-08-21] MEDS: ASPIRIN EC 81 MG TAB PO SCH (08:27)
[2024-08-21 09:07] VITALS: O2SAT 92
[2024-08-21 12:29] VITALS: BP 147/69; TEMP 98.7
--- NOTE | 2024-08-21 12:40 | P.CNS ---
Date of Consult: 08/21/24 Chief Complaint: Epigastric pain, cholelithiasis History of Present Illness: Patient with PMH of CAD s/p CABG x2 in [facility] in 2022, presented with epiagastric pain and generalized abdominal pain, denies chest pain, no palpitations but report chronic MEDRANO and BLE. Allergies No Known Allergies Allergy (Verified 03/25/24 23:48) Home medications list reviewed: Yes Home Medications: Atorvastatin Calcium [Lipitor] 80 mg PO BEDTIME 11/20/23 Clopidogrel Bisulfate [Plavix*] 75 mg PO DAILY 11/20/23 Aspirin [Aspirin EC 81 MG] 81 mg PO DAILY 30 Days #30 tab 12/05/23 Escitalopram [Lexapro*] 20 mg PO DAILY 03/26/24 Gabapentin 800 mg PO TID 03/26/24 Insulin NPH Hum/Reg Insulin Hm [Humulin 70-30 Vial] 43 unit SQ BID 03/26/24 Insulin Regular, Human [Humulin R U-500 Kwikpen] 0 unit SQ TID 03/26/24 Quetiapine [Seroquel*] 100 mg PO BEDTIME 03/26/24 Tamsulosin [Flomax*] 0.4 mg PO DAILY 03/26/24 buPROPion HCL [Bupropion Xl] 150 mg PO DAILY 03/26/24 Furosemide 80 mg PO DAILY 30 Days #30 tab 05/21/24 - Past Medical/Surgical History Diabetic: Yes -: Hypertension -: Diabetes mellitus type 2 insulin dependent -: CAD with prior stent -: Hyperlipidemia -: Diabetic neuropathy -: Obesity -: Sleep apnea noncompliant -: CVA -: Chronic diastolic congestive heart failure -: Stent placement x5 -: back surgery -: ble vascular sx -: Appendectomy -: Multiple debridement left great toe -: cabg 02/03/23-2v Psychosocial/ Personal History: Patient is - Family History Father Medical History: Heart disease, Diabetes Mother Medical History: Heart disease - Social History Smoking Status: Unknown if ever smoked Alcohol use: No CD- Drugs: No Caffeine use: No Review of Systems 10-point ROS is otherwise unremarkable Physical Examination Temp Pulse Resp BP Pulse Ox 98.7 F 82 16 147/69 H 96 08/21/24 12:00 08/21/24 12:00 08/21/24 12:00 08/21/24 12:00 08/21/24 12:00 General: Alert, In no apparent distress HEENT: Atraumatic, PERRLA, Mucous membr. moist/pink, EOMI, Sclerae nonicteric Neck: Supple, 2+ carotid pulse no bruit, No LAD, Without JVD or thyroid abnormality Respiratory: Clear to auscultation bilaterally, Normal air movement Cardiovascular: Regular rate/rhythm, Normal S1 S2 Gastrointestinal: Normal bowel sounds, No tenderness Musculoskeletal: No tenderness Integumentary: No rashes Neurological: Normal gait, Normal speech, Normal tone, Normal affect Lymphatics: No axilla or inguinal lymphadenopathy - Problems (1) Chronic combined systolic and diastolic heart failure Current Visit: Yes Status: Acute Plan: patient BNP is elevated with signs of congestion continue lasix 40 mg IV BID Start Coreg 6.25 mg po BID Start Lisinopril 5 mg daily start aldactone 25 mg daily continue to monitor input and output and electrolytes (2) Chest pain Current Visit: No Status: Acute Plan: patient denies chest pain, his concern is epigastric pain, troponin mild elevated, TYPE 2 NV continue ASA, Plavix and lipitor outpatien with cardiology patient had a stress test recently 3 months ago that shows fixed anteroseptal de fect. Qualifiers: Ischemic chest pain type: unspecified angina pectoris type
--- NOTE | 2024-08-22 11:05 | EKG ---
Test Date: 2024-08-20 Test Time: 14:49:17 Junior Systems Engineer: REJI MEASUREMENT RESULTS: Intervals: Rate: 89 WI: 178 QRSD: 102 QT: 382 QTc: 464 Cart[place]: P: 74 WI: 178 QRS: 67 T: 92 INTERPRETIVE STATEMENTS: Normal sinus rhythm Nonspecific ST abnormality Abnormal ECG Compared to ECG 07/30/2024 01:41:31 No significant changes Electronically Signed On 08-22-24 10:59:25 CDT by Torin Hernández
--- NOTE | 2024-08-25 12:10 | P.DS ---
Discharge Date: 08/21/24 Disposition: ROUTINE DISCHARGE Discharge Condition: GOOD Reason for Admission: Epigastric pain, cholelithiasis Brief History of Present Illness: 59-year-old male with a past medical history Hx: CAD; Diabetes - IDDM; depressive disorder; GERD; Hypercholesterolemia; Myocardial infarction; Hypertension; BPH; neuropathy presents to the emergency room with epigastric pain, chest pain that started yesterday, progressively worse today. He reports associated diffuse abdominal tenderness, he reports nausea, no vomiting, symptoms worse with p.o. intake. He reports chest pain is substernal, described as pressure has been chronic. He denies fever, recent infection, diarrhea, plan to admit for cholelithiasis without obstruction , with surgery to consult., Chest pain, rule out [place], bilateral diabetic dorsal heel ulcers. Cardiology to consult Hospital Course: Patient is doing well. Patient denies any other complaint. Patient's oxygen level was low on admission but he is ambulating without any difficulty in his oxygenation is doing well. Patient is clinically stable for discharge with outpatient follow-up with Pulmonary and surgery. Patient was scheduled to have surgery but he wanted to leave and follow up with surgery as an outpatient. At this time he is tolerating diet and his pain is stable. Will discharge home with outpatient follow-up. Vital Signs/Physical Exam: Temp Pulse Resp BP Pulse Ox 98.7 F 82 16 147/69 H 96 08/21/24 12:00 08/21/24 12:00 08/21/24 12:00 08/21/24 12:00 08/21/24 12:00 General: Alert, In no apparent distress, Oriented x3 Laboratory Data at Discharge: WBC 12.80 thou/uL (4.3-10.9) H 08/21/24 05:59 Hgb 10.7 g/dL (13.6-17.9) L 08/21/24 05:59 Hct 33.3 % (39.6-49.0) L 08/21/24 05:59 Plt Count 322 thou/uL (152-406) 08/21/24 05:59 PT 12.5 SECONDS (10-13.0) 08/20/24 14:25 INR 1.10 08/20/24 14:25 APTT 28.2 SECONDS (27.2-37.4) 08/20/24 14:25 Sodium 139 mEq/L (136-145) 08/21/24 05:55 Potassium 3.6 mEq/L (3.5-5.1) 08/21/24 05:55 BUN 29 mg/dL (7-18) H 08/21/24 05:55 Creatinine 1.71 mg/dL (0.70-1.30) H 08/21/24 05:55 Glucose 345 mg/dL (74-106) H 08/21/24 05:55 Magnesium 2.2 mg/dL (1.6-2.4) 08/21/24 05:55 Total Bilirubin 0.8 mg/dL (0.2-1.0) 08/20/24 10:25 AST 29 U/L (15-37) 08/20/24 10:25 ALT 20 U/L (16-61) 08/20/24 10:25 Alkaline Phosphatase 153 U/L (45-117) H 08/20/24 10:25 Triglycerides 111 mg/dL (<150) 08/21/24 05:55 Cholesterol 135 mg/dL (<200) 08/21/24 05:55 HDL Cholesterol 59 mg/dL (40-60) 08/21/24 05:55 Cholesterol/HDL Ratio 2.29 08/21/24 05:55 Lipase 15 U/L (13-75) 08/20/24 10:25 Home Medications: Atorvastatin Calcium [Lipitor] 80 mg PO BEDTIME 11/20/23 Clopidogrel Bisulfate [Plavix*] 75 mg PO DAILY 11/20/23 Aspirin [Aspirin EC 81 MG] 81 mg PO DAILY 30 Days #30 tab 12/05/23 Escitalopram [Lexapro*] 20 mg PO DAILY 03/26/24 Gabapentin 800 mg PO TID 03/26/24 Insulin NPH Hum/Reg Insulin Hm [Humulin 70-30 Vial] 43 unit SQ BID 03/26/24 Insulin Regular, Human [Humulin R U-500 Kwikpen] 0 unit SQ TID 03/26/24 Quetiapine [Seroquel*] 100 mg PO BEDTIME 03/26/24 Tamsulosin [Flomax*] 0.4 mg PO DAILY 03/26/24 buPROPion HCL [Bupropion Xl] 150 mg PO DAILY 03/26/24 Furosemide 80 mg PO DAILY 30 Days #30 tab 05/21/24 Hydrocodone 10/APAP 325 [[place] 10/325] 1 tab PO Q8H PRN #30 tab 08/21/24 Ondansetron [Zofran] 4 mg PO Q6H PRN #20 tab 08/21/24 New Medications: Hydrocodone 10/APAP 325 [[place] 10/325] 1 tab PO Q8H PRN #30 tab PRN Reason: Pain Ondansetron [Zofran] 4 mg PO Q6H PRN #20 tab PRN Reason: Nausea / Vomiting Physician Discharge Instructions: PROBLEM: Cholelithiasis GOAL: Clear understanding of disease process INSTRUCTIONS: Follow up with PCP in 1-2 weeks Follow up with Cardiology in 1-2 weeks Followup with surgery in 1-2 weeks Diet: AHA Activity: Fall precautions IMMUNIZATION Influenza Vaccine Indicated: Yes Influenza Vaccine Given: Date Given: Pneumonia Vaccine Indicated: No Pneumonia Vaccine Given: Date Given: -DC IV and DC home -Follow-up with PCP in 1 to 2 weeks -Follow-up with Cardiology in 1 to 2 weeks -Follow-up with Surgery in 1-2 weeks -Please call Dr. Hull at [phone] if any questions regarding hospital stay -Please call nursing station at [phone] if any nursing or medication questions -Return to the emergency room if symptoms worsen Diet: AHA Activity: Fall precautions Followup: Adri Antonio MD [Primary Care Provider] - Time spent managing pt's care (in minutes): 35
== END 2024-08-21 15:48 | disposition home or self-care (01) | DRG 444 ==
LOC: ER 09:51 → ERHOLD 14:20 → 2ND 17:10
PROVIDERS: ADMIT Hospitalist; ATTEND Hospitalist
DX: K80.80 Other cholelithiasis without obstruction (principal); I21.A1 Myocardial infarction type 2; I50.42 Chronic combined systolic (congestive) and diastolic (congestive) heart failure; L97.429 Non-pressure chronic ulcer of left heel and midfoot with unspecified severity; L97.419 Non-pressure chronic ulcer of right heel and midfoot with unspecified severity; I11.0 Hypertensive heart disease with heart failure; E66.9 Obesity, unspecified; E11.40 Type 2 diabetes mellitus with diabetic neuropathy, unspecified; E11.621 Type 2 diabetes mellitus with foot ulcer; N40.0 Benign prostatic hyperplasia without lower urinary tract symptoms; I16.0 Hypertensive urgency; K21.9 Gastro-esophageal reflux disease without esophagitis; E78.00 Pure hypercholesterolemia, unspecified; I25.119 Atherosclerotic heart disease of native coronary artery with unspecified angina pectoris; I25.2 Old myocardial infarction; Z79.4 Long term (current) use of insulin; Z95.5 Presence of coronary angioplasty implant and graft; Z95.1 Presence of aortocoronary bypass graft; Z68.34 Body mass index [BMI] 34.0-34.9, adult; Z86.73 Personal history of transient ischemic attack (TIA), and cerebral infarction without residual deficits; Z79.02 Long term (current) use of antithrombotics/antiplatelets; Z79.82 Long term (current) use of aspirin; Z79.899 Other long term (current) drug therapy; Z89.429 Acquired absence of other toe(s), unspecified side
CPT/HCPCS: 36415; 71045; 74177; 76705; 80048; 80053; 80061; 81001; 82947; 83036; 83605; 83690; 83735; 83880; 84484; 85025; 85610; 85730; 87040; 87077; 87186; 87205; 93005; 94760; 96374; 96375; 99285; G0378; J0696; J1171; J1790; J1815; J1940; J2405; J2765; J7030; Q9967

== ENCOUNTER 2024-10-18 23:09 | Inpatient (IN) | payer OTHER ==
[2024-10-18] MEDS ORDERED: VANCOMYCIN 1 GM/VIAL ONE (23:34)
[2024-10-18] MEDS ORDERED: MORPHINE 4 MG/ML SYR ONE (23:35)
[2024-10-18] MEDS ORDERED: NA CHLORIDE 0.9% 250 ML ONE (23:35)
[2024-10-18] MEDS ORDERED: ONDANSETRON 4 MG/2 ML VIAL ONE (23:35)
[2024-10-18] MEDS ORDERED: CEFEPIME 1 GM/VIAL ONE (23:36)
[2024-10-18] MEDS ORDERED: NA CHLORIDE 0.9% 100 ML ONE (23:36)
[2024-10-19 00:01] LABS: Absolute Eosinophils 0.2 K/uL (0-0.5); Absolute Lymphocytes (CBC) 0.8 K/uL (0.7-4.9); Absolute Monocytes 1.1 K/uL (0.1-1.3); Absolute Neutrophil 8.1 K/uL (1.8-8.0); Basophils % 0.2 % (0-1.3); Eosinophils % 1.8 % (0-4.4); Hematocrit 27.7 % (39.6-49.0); Hemoglobin 9.1 g/dL (13.6-17.9); Lymphocytes % 7.5 % (15.3-44.8); MCH 24.9 pg (27.0-35.0); MCV 75.3 fL (80-100); MPV 7.8 fL (7.6-11.3); Monocytes % 10.6 % (3.3-12.3); Neutrophils % 79.9 % (41.7-73.7); Platelets 235 thou/uL (152-406); RBC Red Blood Cell Count 3.67 M/uL (4.33-5.43); Red Cell Distribution Width 17.4 % (12.1-15.2)
[2024-10-19 00:04] LABS: PT Prothrombin Time 13.8 SECONDS (10-13.0); PTT, Activated Partial Thromb 29.5 SECONDS (27.2-37.4); Protime INR 1.22
[2024-10-19 00:16] LABS: Albumin 2.8 g/dL (3.4-5.0); Albumin/Globulin Ratio 0.6 (1.1-1.8); Anion Gap 11.6 mEq/L (5.0-15.0); Bilirubin Total 0.9 mg/dL (0.2-1.0); Globulin 4.4 g/dL (2.3-3.5); Potassium 3.6 mEq/L (3.5-5.1); Protein, Total 7.2 g/dL (6.4-8.2)
--- NOTE | 2024-10-19 00:19 | EDPHYS ---
Physician Documentation [facility] Name: Tripp Webster Age: 59 yrs Sex: Male : 1965 Arrival Date: 10/18/2024 Time: 23:09 Bed 20 Private MD: ED Physician Kenn Yap HPI: 10/18 23:17 This 59 yrs old Male presents to ER via Unassigned with complaints of Foot Pain. kb 23:17 Pt is a 59 year old male who presents for pain to right foot. STates he stepped on a kb nail 4 days ago and has had pain since then. Qasim fever. Reports pain increases with ambulation. States he went to PCP on Wednesday, was given a tetanus shot and told there was no infection at that time. . Historical: - Allergies: 23:53 No Known Allergies; br2 - PMHx: 23:53 BPH; CAD; depressive disorder; Diabetes - IDDM; GERD; Hypercholesterolemia; Myocardial br2 infarction; Hypertension; neuropathy; - PSHx: 23:53 cardiac stents; Coronary artery bypass graft; toe amputation; br2 - Immunization history:: Adult Immunizations not up to date. - Infectious Disease History:: Denies. - Social history:: Smoking status: Patient denies any tobacco usage or history of. Patient/guardian denies using alcohol, street drugs. ROS: 23:17 Constitutional: As per HPI kb Exam: 23:18 Constitutional: This is a well developed, well nourished patient who is awake, alert, kb and in no acute distress. Head/Face: Normocephalic, atraumatic. ENT: Moist Mucous membranes Cardiovascular: Regular rate Respiratory: Respirations even and unlabored. No increased work of breathing. Talking in full sentences MS/ Extremity: Pulses equal, no cyanosis. Neurovascular intact. Full, normal range of motion. Neuro: Awake and alert, GCS 15, oriented to person, place, time, and situation. 23:18 Musculoskeletal/extremity: Extremities: grossly normal except: noted in the ball of right foot: pain, puncture, swelling, ROM: intact in all extremities, Weight bearing: able to fully bear weight, 23:18 Skin: cellulitis, that is mild, on the right foot, puncture wound to bottom of foot with purulent drainage, surrounding erythema; significant tenderness to area. 23:48 ECG was reviewed by the Attending Physician. kb Vital Signs: 23:49 BP 141 / 60; Pulse 96; Resp 18; Temp 97.7(TE); Pulse Ox 96% on R/A; Weight 108.86 kg; br2 Height 5 ft. 11 in. ; Pain 1010; 10/19 12:15 BP 138 / 62; Pulse 88; Resp 18; Temp 98; Pulse Ox 100% on R/A; kj2 10/18 23:49 Body Mass Index 33.47 (108.86 kg, 180.34 cm) br2 10/18 23:49 Pain Scale: Adult br2 MDM: 10/18 23:13 Medical Screening Exam initiated kb 10/19 00:18 Differential diagnosis: FB, cellulitis, abscess. Data reviewed: vital signs, nurses kb notes. Consideration of Admission/Observation Patient was admitted/placed on observation. Escalation of care including admission/observation considered. Management of patient was discussed with the following: Hospitalist: Pt accepted for admission by hospitalist. Care significantly affected by the following chronic conditions: Diabetes. Counseling: I had a detailed discussion with the patient and/or guardian regarding the historical points, exam findings, and any diagnostic results supporting the discharge/admit diagnosis, lab results, the need for further work-up and treatment in the hospital. 00:20 ED course: Pt states if he needs to have I\T\D on his foot he prefers Dr Lopez do it kb because he has seen him for other wounds in the past. 10/18 23:24 Order name: Blood Culture Adult (2) 10/18 23:24 Order name: CBC with Diff; Complete Time: 00:03 kb 10/18 23:24 Order name: CMP; Complete Time: 00:17 kb 10/18 23:24 Order name: Lactate w/ 2H reflex if indic.; Complete Time: 00:13 kb 10/18 23:24 Order name: Protime (+inr); Complete Time: 00:05 kb 10/18 23:24 Order name: Ptt, Activated; Complete Time: 00:05 kb 10/19 00:03 Order name: Glucose, Ancillary Testing; Complete Time: 00:03 EDMS 10/19 00:05 Order name: Glucose, Ancillary Testing EDMS 10/19 00:10 Order name: C-Reactive Protein; Complete Time: 00:17 EDMS 10/19 01:31 Order name: CBC with Automated Diff EDMS 10/19 01:31 Order name: CBC with Automated Diff EDMS 10/19 01:31 Order name: Comprehensive Metabolic Panel EDMS 10/19 01:31 Order name: Comprehensive Metabolic Panel EDMS 10/19 08:18 Order name: Glucose, Ancillary Testing EDMS 10/19 08:38 Order name: Glucose, Ancillary Testing EDMS 10/19 08:50 Order name: Glucose, Ancillary Testing EDMS 10/19 09:06 Order name: Glucose Level EDMS 10/19 09:24 Order name: Glucose, Ancillary Testing EDMS 10/19 12:00 Order name: Glucose, Ancillary Testing EDMS 10/19 00:14 Order name: Foot Right 3 View XRAY 10/19 11:34 Order name: US EDID 10/19 01:31 Order name: CONS Physician Consult EDID 10/19 01:31 Order name: Dietitian Consult EDMS 10/18 23:24 Order name: Accucheck; Complete Time: 23:59 kb 10/18 23:24 Order name: Cardiac monitoring; Complete Time: 23:40 kb 10/18 23:24 Order name: EKG - Nurse/Tech; Complete Time: 23:40 kb 10/18 23:24 Order name: IV Saline Lock - Large Bore; Complete Time: 23:48 kb 10/18 23:24 Order name: Labs collected and sent; Complete Time: 23:48 kb 10/18 23:24 Order name: O2 Per Protocol; Complete Time: 23:40 kb 10/18 23:24 Order name: O2 Sat Monitoring; Complete Time: 23:40 kb 10/18 23:24 Order name: Vital Signs; Complete Time: 23:48 kb EC/07 23:48 Rate is 90 beats/min. Rhythm is regular. QRS [place] is Normal. CA interval is normal at kb 168 msec. QRS interval is normal at 106 msec. QT interval is normal at 430 msec. Administered Medications: 23:58 Drug: Ondansetron IVP 4 mg IVP once; over 2 minutes Route: IVP; Site: right upper arm; br2 10/19 01:30 Follow up: Response: No adverse reaction br2 10/18 23:58 Drug: morphine IVP or IV 4 mg IVP once over 4 mins Route: IVP; Infused Over: 4 mins; br2 Site: right upper arm; 10/19 01:30 Follow up: Response: No adverse reaction br2 10/18 23:59 Drug: Cefepime IVPB 1 grams IVPB at 200 ml/hr once over 30 mins; (mix in NS 100 mL) br2 Route: IVPB; Rate: 200 ml/hr; Infused Over: 30 mins; Site: right upper arm; 10/19 02:00 Follow up: IV Status: Completed infusion; IV Intake: 100ml br2 10/18 23:59 Drug: vancoMYCIN IVPB 1 grams IVPB once over 2 hrs Route: IVPB; Infused Over: 2 hrs; br2 Site: right upper arm; 10/19 03:00 Follow up: Response: No adverse reaction; IV Status: Completed infusion; IV Intake: br2 250ml 00:47 Drug: NS 0.9% IV 500 ml 500 ml IV at 1 bolus once; to be given as a bolus over 30 br2 minutes Volume: 500 ml; Route: IV; Rate: 1 bolus; Site: right upper arm; 01:20 Follow up: IV Status: Completed infusion; IV Intake: 500ml br2 Point of Care Testing: Blood Glucose: 10/18 23:53 Blood Glucose: 240 mg/dL; br2 Ranges: Critical Glucose Levels:Adult <50 mg/dl or >400 mg/dl <40 mg/dl or >180 mg/dl Disposition: 10/19 03:52 Co-signature as Attending Physician, Kenn Yap MD I agree with the assessment sp4 and plan of care. I reviewed the patient's care provided by Advanced Practice Provider \T\ agree w/ the diagnosis \T\ care plan. I personally saw the pt \T\ performed a substantive portion of the visit, incldng all aspects of the (History/Exam/Medical Decision Making). Disposition Summary: 10/19/24 00:19 Hospitalization Ordered Notes: Hospitalization Status: Observation kb Provider: Elvie Simmons Condition: Stable kb Problem: new kb Symptoms: are unchanged kb Bed/Room Type: Standard kb Location: Telemetry/MedSurg (observation)(10/19/24 11:05) hb Room Assignment: 204(10/19/24 11:05) hb Diagnosis - Cellulitis of right lower limb - foot kb Forms: - Medication Reconciliation Form kb - SBAR form kb - Leadership Thank You Letter kb Signatures: Dispatcher [employer] EDMS Layla Flanagan, OCEAN LIFEGUARD-C OCEAN LIFEGUARD-Ckb Lizette Becerrli, RN RN hb Kaycee Pan RN RN vc1 Kenn Yap MD MD sp4 Rola Becker, RN RN br2 Corrections: (The following items were deleted from the chart) 10/18 23:25 23:25 BLOOD CULTURE*+BA.LAB.BRZ ordered. EDMS EDMS 23:25 23:25 CBC+H.LAB.BRZ ordered. EDMS EDMS 23:25 23:25 COMPREHENSIVE METABOLIC PANEL+C.LAB.BRZ ordered. EDMS EDMS 23:25 23:25 LACTATE+C.LAB.BRZ ordered. EDMS EDMS 23:25 23:25 PROTIME (+INR)+COAG.LAB.BRZ ordered. EDMS EDMS 23:25 23:25 PTT, ACTIVATED+COAG.LAB.BRZ ordered. EDMS EDMS 10/19 00:08 00:05 C-REACTIVE PROTEIN+C.LAB.BRZ ordered. EDMS EDMS 00:14 00:14 Foot Right 3 View+RAD.RAD.BRZ ordered. EDMS EDMS 00:10/18 23:17 Pt is a 59 year old male who presents for pain to right foot. STates he kb stepped on a nail 4 days ago and has had pain since then. Qasim fever. . kb 10/19 00:22 10/18 23:18 Skin: cellulitis, that is mild, on the right foot, puncture wound to bottom kb of foot with purulent drainage, surrounding erythema. kb 10/19 00:52 00:19 Telemetry/MedSurg (observation) kb vc1 00:52 00:19 kb vc1 11: 00:52 [facility] ER HOLD vc1 hb 11: 00:52 ERHOLD- vc1 hb
--- NOTE | 2024-10-19 00:19 | ER ---
Nurse's Notes [facility] Name: Tripp Webster Age: 59 yrs Sex: Male : 1965 Arrival Date: 10/18/2024 Time: 23:09 Bed 20 Private MD: Diagnosis: Cellulitis of right lower limb-foot Presentation: 10/18 23:49 Chief complaint: Patient states: PT STATES HE STEPPED ON A NAIL ON WEDNESDAY, PT SEEN PCP br2 BUT WASN'T PUT ON ANTIBOTICS. PT ARRIVES TODAY C/O RIGHT FOOT PAIN. PT HAS SMALL PUNCTURE TO RIGHT PLANTAR FOOT 2ND TOE. REDNESS AND EDEMA PRESENT. Coronavirus screen: Client denies travel out of the [place] in the last 14 days. Ebola Screen: Patient denies exposure to infectious person. Initial Sepsis Screen: Does the patient meet any 2 criteria? HR > 90 bpm. Does the patient have a suspected source of infection? No. Patient's initial sepsis screen is negative. Risk Assessment: Do you want to hurt yourself or someone else? Patient reports no desire to harm self or others. Onset of symptoms was October 14, 2024. 23:49 Method Of Arrival: Ambulatory br2 23:49 Acuity: MIRIAM 3 br2 Triage Assessment: 23:53 General: Appears uncomfortable, Behavior is calm, cooperative. Pain: Complains of pain br2 in right foot and PLANTAR of right foot. EENT: No signs and/or symptoms were reported regarding the EENT system. Neuro: Level of Consciousness is awake, alert, Oriented to person, place, time, situation. Cardiovascular: Denies chest pain. Respiratory: Denies shortness of breath. Respiratory: Airway is patent is compromised Respiratory effort is even, unlabored, Respiratory pattern is regular, symmetrical. GI: No signs and/or symptoms were reported involving the gastrointestinal system. : No signs and/or symptoms were reported regarding the genitourinary system. Derm: Reports pain that is 10 out of 10 on a pain scale. Historical: - Allergies: 23:53 No Known Allergies; br2 - PMHx: 23:53 BPH; CAD; depressive disorder; Diabetes - IDDM; GERD; Hypercholesterolemia; Myocardial br2 infarction; Hypertension; neuropathy; - PSHx: 23:53 cardiac stents; Coronary artery bypass graft; toe amputation; br2 - Immunization history:: Adult Immunizations not up to date. - Infectious Disease History:: Denies. - Social history:: Smoking status: Patient denies any tobacco usage or history of. Patient/guardian denies using alcohol, street drugs. Screenin:57 [facility] ED Fall Risk Assessment (Adult) History of falling in the last 3 months, br2 including since admission No falls in past 3 months (0 pts) Confusion or Disorientation No (0 pts) Intoxicated or Sedated No (0 pts) Impaired Gait Yes (1 pt) Mobility Assist Device Used Yes (1 pt) Altered Elimination No (0 pt) Score/Fall Risk Level 0 - 2 = Low Risk Oriented to surroundings. Abuse screen: Denies threats or abuse. Denies injuries from another. Nutritional screening: No deficits noted. Tuberculosis screening: No symptoms or risk factors identified. Assessment: 23:59 Reassessment: see triage assessment. br2 10/19 12:15 Reassessment: Patient appears in no apparent distress at this time. Patient and/or kj2 family updated on plan of care and expected duration. Pain level reassessed. Patient is alert, oriented x 3, equal unlabored respirations, skin warm/dry/pink. Vital Signs: 10/18 23:49 BP 141 / 60; Pulse 96; Resp 18; Temp 97.7(TE); Pulse Ox 96% on R/A; Weight 108.86 kg; br2 Height 5 ft. 11 in. ; Pain 1010; 10/19 12:15 BP 138 / 62; Pulse 88; Resp 18; Temp 98; Pulse Ox 100% on R/A; kj2 10/18 23:49 Body Mass Index 33.47 (108.86 kg, 180.34 cm) br2 10/18 23:49 Pain Scale: Adult br2 ED Course: 10/18 23:12 Patient arrived in ED. gm2 23:13 [facility] Flanagan [facility]C [facility]. kb 23:13 Kenn Yap MD is Attending Physician. kb 23:48 Blood Culture Adult (2) Sent. br2 23:48 CBC with Diff Sent. br2 23:48 CMP Sent. br2 23:48 Lactate w/ 2H reflex if indic. Sent. br2 23:48 Protime (+inr) Sent. br2 23:48 Ptt, Activated Sent. br2 23:48 Inserted saline lock: 20 gauge in right upper arm, using aseptic technique. Blood br2 collected. Flushed with 10 mL NS. 23:53 Triage completed. br2 23:53 Arm band placed on right wrist. br2 23:57 Patient has correct armband on for positive identification. Bed in low position. Call br2 light in reach. Side rails up X 1. Provided Education on: PLAN OF CARE. 23:58 Rola Becker RN is Primary Nurse. br2 10/19 00:19 Elvie Simmons MD is Hospitalizing Provider. kb 00:43 Foot Right 3 View XRAY In Process Unspecified. EDMS 12:37 No provider procedures requiring assistance completed. Patient admitted, IV remains in kj2 place. Administered Medications: 10/18 23:58 Drug: Ondansetron IVP 4 mg IVP once; over 2 minutes Route: IVP; Site: right upper arm; br2 10/19 01:30 Follow up: Response: No adverse reaction br2 10/18 23:58 Drug: morphine IVP or IV 4 mg IVP once over 4 mins Route: IVP; Infused Over: 4 mins; br2 Site: right upper arm; 10/19 01:30 Follow up: Response: No adverse reaction br2 10/18 23:59 Drug: Cefepime IVPB 1 grams IVPB at 200 ml/hr once over 30 mins; (mix in NS 100 mL) br2 Route: IVPB; Rate: 200 ml/hr; Infused Over: 30 mins; Site: right upper arm; 10/19 02:00 Follow up: IV Status: Completed infusion; IV Intake: 100ml br2 10/18 23:59 Drug: vancoMYCIN IVPB 1 grams IVPB once over 2 hrs Route: IVPB; Infused Over: 2 hrs; br2 Site: right upper arm; 10/19 03:00 Follow up: Response: No adverse reaction; IV Status: Completed infusion; IV Intake: br2 250ml 00:47 Drug: NS 0.9% IV 500 ml 500 ml IV at 1 bolus once; to be given as a bolus over 30 br2 minutes Volume: 500 ml; Route: IV; Rate: 1 bolus; Site: right upper arm; 01:20 Follow up: IV Status: Completed infusion; IV Intake: 500ml br2 Medication: 12:38 VIS not applicable for this client. kj2 Point of Care Testing: Blood Glucose: 10/18 23:53 Blood Glucose: 240 mg/dL; br2 Ranges: Intake: 10/19 01:20 IV: 500ml; Total: 500ml. br2 02:00 IV: 100ml; Total: 600ml. br2 03:00 IV: 250ml; Total: 850ml. br2 Outcome: 00:19 Decision to Hospitalize by Provider. kb 12:37 Admitted to Med/surg accompanied by tech, via stretcher, room 204, kj2 12:37 Condition: stable 12:37 Instructed on the need for admit, 12:39 Patient left the ED. kj2 Signatures: Dispatcher [employer] EDMS Layla Flanagan, OBDULIO-Errol SALES ADMINISTRATOR-Sho Lopez gm2 Rola Becker, RN RN br2 Rubia Serrano, RN RN kj2
[2024-10-19] MEDS ORDERED: NA CHLORIDE 0.9% 1,000 ML ONE (00:40)
[2024-10-19] MEDS ORDERED: ACETAMINOPHEN 325 MG TABLET PO PRN (01:25)
[2024-10-19] MEDS ORDERED: GLUCAGON 1 MG/VIAL IM PRN (01:31)
[2024-10-19] MEDS ORDERED: D50W 25 GM/50 ML SYRINGE IV PRN (01:31)
--- NOTE | 2024-10-19 01:39 | P.HP ---
Certification for Inpatient Patient admitted to: Inpatient With expected LOS: >2 Midnights Patient will require the following post-hospital care: None Practitioner: I am a practitioner with admitting privileges, knowledge of patient current condition, hospital course, and medical plan of care. Services: Services provided to patient in accordance with Admission requirements found in Title 42 Section 412.3 of the Code of Federal Regulations Patient History Date of Service: 10/19/24 Reason for admission: Acute right foot cellulitis with purulent drainage History of Present Illness: Patient is a 59-year-old male with past medical history of type 1 diabetes mellitus, CAD, osteomyelitis, hypertension, syncope, NSTEMI, CHF, diabetic neuropathy who presents to the ER today complaining of worsening pain and cellulitis to her right foot resulting from stepping on a horse nail. Patient states on Wednesday while he was doing some work in his garage, he accidentally stepped horse shoe, has since then his left foot has been hurting and the pain has been progressively worsening, increased erythema, and edema. Patient states he went to see his PCP on Wednesday this week, states he received tetanus shot. Patient states the swelling, and erythema progressive worsened with severe pain even with minimal palpation which prompted him to report to ER. On examination, patient right foot with erythema, edema, with purulent drainage, with severe pain even on minimal palpation. Patient denies of any fever or chills, chest pain, or shortness of breath. Consulted Dr. Lopze for possible incision and drainage, and he texted back informing me that he is out of town and Dr. Lorenzana is covering.(1) (1) right foot cellulitis and drainage. -Vancomycin 750 mg IV every 12 hours. Dose minimize due to patient acute renal failure. -Zosyn 3.375 mg every 8 hours. -Morphine 4 mg IV as needed every 4 hours due to severe pain from his left foot. -Consulted Dr. Lopez for possible I&D, and he texted me back to inform me that he is currently out of town, and requested to consult Dr. Lorenzana who is covering for him. (2) chronic type 2 diabetes mellitus. -Continue home medication 70/30 insulin 52 units in the morning, and 52 units p.m. -Moderate sliding scale coverage. (3) explained entire treatment plan to the patient, solicit questions answered and voiced understanding. Allergies No Known Allergies Allergy (Verified 09/25/24 14:52) Home Medications: Atorvastatin Calcium [Lipitor] 80 mg PO BEDTIME 11/20/23 Clopidogrel Bisulfate [Plavix*] 75 mg PO DAILY 11/20/23 Aspirin [Aspirin EC 81 MG] 81 mg PO DAILY 30 Days #30 tab 12/05/23 Escitalopram [Lexapro*] 20 mg PO DAILY 03/26/24 Gabapentin 800 mg PO BID 03/26/24 Insulin NPH Hum/Reg Insulin Hm [Humulin 70-30 Vial] 43 unit SQ BID 03/26/24 Insulin Regular, Human [Humulin R U-500 Kwikpen] 0 unit SQ TID 03/26/24 Tamsulosin [Flomax*] 0.4 mg PO DAILY 03/26/24 buPROPion HCL [Bupropion Xl] 300 mg PO DAILY 03/26/24 Furosemide 80 mg PO BID 09/25/24 - Past Medical/Surgical History Diabetic: Yes -: Hypertension -: Diabetes mellitus type 2 insulin dependent -: CAD with prior stent -: Hyperlipidemia -: Diabetic neuropathy -: Obesity -: Sleep apnea noncompliant -: CVA -: Chronic diastolic congestive heart failure -: Stent placement x5 -: back surgery -: ble vascular sx -: Appendectomy -: Multiple debridement left great toe -: cabg 02/03/23-2v Psychosocial/ Personal History: Patient is - Family History Father -: Heart disease, Diabetes Mother -: Heart disease - Social History Alcohol use: No CD- Drugs: No Caffeine use: No Physical Examination - Studies Laboratory Data (last 24 hrs) 10/18/24 10/18/24 10/18/24 23:35 23:35 23:35 WBC 10.20 Hgb 9.1 L Hct 27.7 L Plt Count 235 PT 13.8 H INR 1.22 APTT 29.5 Sodium 132 L Potassium 3.6 BUN 29 H Creatinine 1.88 H Glucose 244 H Total Bilirubin 0.9 AST 70 H ALT 61 Alkaline Phosphatase 205 H Assessment and Plan - Advance Directives Does patient have a Living Will: No Does patient have a Durable POA for Healthcare: No
[2024-10-19] MEDS: VANCOMYCIN 0.75 GM in NA CHLORIDE 0.9% 250 ML IVPB ONE (02:00)
[2024-10-19 02:36] VITALS: BMI 33.5
[2024-10-19] MEDS ORDERED: NA CHLORIDE 0.9% 250 ML ONE (02:45)
[2024-10-19] MEDS ORDERED: VANCOMYCIN 1 GM/VIAL ONE (02:45)
[2024-10-19] MEDS ORDERED: MORPHINE 4 MG/ML SYR ONE ×2 (03:27→08:02)
[2024-10-19] MEDS: MORPHINE 4 MG/ML SYR IV PRN (03:31)
--- NOTE | 2024-10-19 05:25 | RAD REPORT ---
CLINICAL HISTORY: R/o FB. COMPARISON: None. TECHNIQUE: XR FOOT 3 OR MORE VIEWS RIGHT 10/19/2024 12:14 AM CDT FINDINGS: There is no fracture. Joint spaces are preserved. There is subcutaneous air at the plantar surface of the forefoot, overlying the second digit. There is no associated radiopaque foreign body. IMPRESSION: No radiopaque foreign body. Electronically signed by: Brett Gerardo MD 10/19/2024 02:10 AM CDT RP Due to temporary technical issues with the PACS[employer] reporting system, reports are being kranthi d by the in-house radiologist without review as a courtesy to ensure prompt reporting the interpreting radiologist is fully responsible for the content of the report. Transcribed Date/Time: 10/19/2024 5:25 AM
[2024-10-19] MEDS ORDERED: ACETAMINOPHEN 325 MG TABLET ONE (06:22)
[2024-10-19] MEDS: INSULIN REGULAR (HUMAN) 100 UNIT/ML SQ SCH (07:30)
[2024-10-19] MEDS: INSULIN 70/30 100 UNITS/ML SQ SCH (07:30)
[2024-10-19] MEDS ORDERED: PIPERACIL/TAZO 3.375 GM VIAL IV ONE (08:01)
[2024-10-19] MEDS ORDERED: HEPARIN 5000 UNIT/ML 1 ML VIAL ONE (08:01)
[2024-10-19] MEDS ORDERED: NA CHLORIDE 0.9% 100 ML ONE (08:01)
[2024-10-19] MEDS: D10W 125 ML IV PRN (08:25)
[2024-10-19] MEDS ORDERED: D10W 250 ML IV ONE (08:27)
[2024-10-19] MEDS: HEPARIN 5000 UNIT/ML 1 ML VIAL SQ SCH (09:00)
[2024-10-19] MEDS: NA CHLORIDE 0.9% 1,000 ML IV SCH (09:00)
[2024-10-19] MEDS: PIPER TAZO 3.375 GM in NA CHLORIDE 0.9% 100 ML IV SCH (09:00)
[2024-10-19] MEDS ORDERED: VANCOMYCIN 0.75 GM in NA CHLORIDE 0.9% 150 ML IVPB SCH (09:00)
[2024-10-19] MEDS ORDERED: D5 0.9 NS 1,000 ML IV ONE (10:29)
--- NOTE | 2024-10-19 10:29 | P.PN ---
Subjective Date of Service: 10/19/24 Chief Complaint: Acute right foot cellulitis with purulent drainage Subjective: No chest pain or shortness of breath. No nausea or vomiting. No abdominal pain. No obvious bleeding. Looks comfortable in the bed. Complaining of right foot pain. Objective: General appearance: Alert and comfortable CVS: Normal S1 and S2 Lungs: Clear to auscultation bilaterally Abdomen: Soft, bowel sounds present, no tenderness Extremities:1+ b/l lower extremity edema. Right foot has erythema and mild tenderness, very small opening on the plantar aspect of the right distal foot. Has healing wounds with eschars on left mid leg / santoro Physical Examination - Vital Signs Temperature: 98.0 F Blood Pressure: 143/83 Pulse: 71 Respirations: 16 Pulse Ox (%): 100 - Studies Laboratory Data (last 24 hrs) 10/18/24 10/18/24 10/18/24 23:35 23:35 23:35 WBC 10.20 Hgb 9.1 L Hct 27.7 L Plt Count 235 PT 13.8 H INR 1.22 APTT 29.5 Sodium 132 L Potassium 3.6 BUN 29 H Creatinine 1.88 H Glucose 244 H Total Bilirubin 0.9 AST 70 H ALT 61 Alkaline Phosphatase 205 H Assessment And Plan - Plan Assessment and plan: (1) right foot cellulitis, no drainage at the time of my visit. - Continue vancomycin and Zosyn - Foot x-ray showed subcutaneous air, no foreign body. - surgical consult requested, plan for I&D today - Will get a lower extremity Doppler due to edema. (2) type 2 diabetes mellitus. -hol home medication 70/30 insulin due to hypoglycemia -Moderate sliding scale coverage. (3) history of coronary artery disease and SD: Continue aspirin, statin and Plavix. 4. History of CHF: Hold Lasix for now. 5. Chronic anemia: Monitor closely. 6. KATIA on CKD 3A: Gentle IV fluids, monitor renal function closely. Plan discussed with the patient and nursing staff, discussed with surgical team.
[2024-10-19] MEDS: D5 0.9 NS 1,000 ML IV SCH (10:50)
--- NOTE | 2024-10-19 11:33 | RAD REPORT ---
EXAMINATION: US BILATERAL LOWER EXTREMITY VENOUS DOPPLER CLINICAL INDICATION: lower extremity edema TECHNIQUE: Complete bilateral duplex sonography of the BILATERAL lower extremity veins was performed. The examination included compression for vein patency, color Doppler imaging and flow augmentation in response to distal compression of the distal external iliac, common femoral, femoral, popliteal, t ibial, and great and small saphenous veins. COMPARISON: No prior exam. FINDINGS: Duplex sonography testing of the veins of the BILATERAL lower extremity was performed. Color flow kianna ging shows all veins to be compressible with [id number] color filling. Pulsatile and phasic flow is present within all lower extremity deep and superficial veins examined. IMPRESSION: There is no deep vein or superficial vein thrombosis.
--- NOTE | 2024-10-19 11:39 | EKG ---
Test Date: 2024-10-18 Test Time: 23:36:20 Meeting/Event Planner: JOSUÉ MEASUREMENT RESULTS: Intervals: Rate: 90 SD: 168 QRSD: 106 QT: 352 QTc: 430 Gordon: P: 73 SD: 168 QRS: 68 T: 91 INTERPRETIVE STATEMENTS: Normal sinus rhythm Nonspecific ST abnormality Abnormal ECG Compared to ECG 08/20/2024 14:49:17 No significant changes Electronically Signed On 10-19-24 11:38:11 CDT by Torin Hernández
[2024-10-19] MEDS: MORPHINE 2 MG/ML SYR IV PRN (13:18)
--- NOTE | 2024-10-19 13:49 | PREOPCON ---
Date of Consultation: 10/19/2024 Reason For Consultation: Infection, right foot. History Of Present Illness: This patient is a 59-year-old gentleman with multiple medical problems, who presents to the emergency room with pain, redness and swelling after stepping on a nail of a hors e last Wednesday. He went to his PCP and got his tetanus shot. He said the redness and swelling became worse, pain became worse, and he came to the emergency room. He denies any sore throat, runny nose, cough, headaches, or dizziness, any chest pain, fever, or chills. Review of Systems: Otherwise unremarkable. Please note, the patient has seen Dr. Lopez; however, he is out of town a nd I am covering for him. Past Medical History: Significant for diabetes, coronary artery disease, hyperlipidemia, diabetic ne uropathy, obesity, hypertension, sleep apnea, stroke, congestive heart failure. Past Surgical History: Multiple stent placement, back surgery, vascular surgery with stent placed in the lower extremity, appendectomy, left great toe amputation, and CABG. Social History: The patient denies smoking or drinking. Family History: Significant for heart disease and diabetes. Allergies: NONE. Physical Examination: Vital Signs: The patient's vital signs are currently stable. He is afebrile. General: He is awake, alert, and oriented. Head and Neck: No masses. Chest: Clear. Heart: S1, S2. Abdomen: Soft. Extremity: Diminished dorsalis pedis, posterior tibial pulses in right foot. In the forefoot, there are erythema, warmth, and edema. There is a wound that is healed up on the plantar aspect of the le ft and right great toe. There is exquisite tenderness. There is questionable fluctuance in the firs t web space. There is no crepitus that I can feel. Laboratory Data: His white count is 10.2 with a left shift. INR is 1.22. Chemistry is significant for his glucose being low and it has been corrected, it is 140 currently. It was down into the 30s. His BUN and creatinine are slightly elevated. His lactic acid was 2.0. His x-ray of the foot revea ls subcutaneous air in the plantar surface of the forefoot overlying the second digit. There is no a ssociated or radiopaque foreign body. Assessment: Gas-forming infection with cellulitis in the right foot. Recommendations: N.p.o., IV antibiotics, to the OR for incision, drainage and debridement of infecte d right foot wound. The patient at this time does not need an MRI. The patient understands risks, b enefits, and alternatives and agrees to procedure. /MODLucrecia Voice ID: [id number] Report ID: [id number]
[2024-10-19] MEDS: COLLAGENASE 30 GM OINTMENT TOP ONE (14:33)
[2024-10-19] MEDS: NA CHLORIDE 0.9% 500 ML ONE (15:00)
[2024-10-19] MEDS: BUPIVACAINE 0.5% PF 10 ML VIAL ONE (15:19)
[2024-10-19] MEDS ORDERED: MIDAZOLAM HCL 2 MG/2 ML INJ ONE (15:32)
[2024-10-19] MEDS ORDERED: propofoL 200 MG/20 ML VIAL IV ONE (15:32)
[2024-10-19] MEDS ORDERED: FENTANYL CITR 100 MCG/2 ML ONE (15:33)
--- NOTE | 2024-10-19 16:09 | P.OP ---
Date of Service: 10/19/24 Preop diagnosis: Right foot diabetic infection with gas Postop diagnosis: Same Procedure performed: Incision, drainage and debridement of right foot diabetic infection to subcutaneous tissue approximately 6 x 3 cm Surgeon: Ulsises Lorenzana MD Field Spec: None Estimated blood loss: Minimal Specimen: Pus and necrotic tissue Findings: As above Anesthesia: General Complications: None Drains: None Fluids and blood products: Nonapplicable Disposition: Covering room Operative note: Patient brought to the OR and placed in supine position. General anesthesia began. Patient prepped and draped in usual sterile fashion. Marcaine 0.5% infiltrated locally. 15 blade used to make approximately eight 6 cm incision between the webspace and extending down to the puncture wound site on the plantar aspect of the foot. A [address] in the subcutaneous space laterally. Subcutaneous tissue divided pus evacuated, necro tic tissue debrided, pockets opened and loculations broken. Wound irrigated and bleeding controlled with cautery. Pus and necrotic tissue sent for culture. Wet-to-dry normal saline dressing change applied. Patient awakened and taken to recovery room in good general condition. CC:
[2024-10-19] MEDS: HYDROMORPHONE HCL 0.5 MG/0.5 ML INJ ONE (16:37)
[2024-10-19] MEDS: ONDANSETRON 4 MG/2 ML VIAL IV SCH (17:12)
[2024-10-19] MEDS: VANCOMYCIN 1.75 GM in NA CHLORIDE 0.9% 500 ML IVPB SCH (18:24)
[2024-10-19] MEDS: HYDROMORPHONE HCL 1 MG/ML INJ IV PRN (19:14)
[2024-10-19] MEDS: HYDROCODONE/APAP 7.5/325 MG TAB PO PRN (21:16)
[2024-10-19] MEDS: ATORVASTATIN 40 MG TAB PO SCH (21:16)
[2024-10-19] MEDS: TAMSULOSIN 0.4 MG SR CAP PO SCH (21:16)
[2024-10-20] MEDS: CLINDAMYCIN 600MG/D5W 50 ML IV SCH (04:11)
[2024-10-20 07:28] LABS: Absolute Basophils 0.1 K/uL (0-0.5); Absolute Eosinophils 0.3 K/uL (0-0.5); Absolute Lymphocytes (CBC) 1.1 K/uL (0.7-4.9); Absolute Monocytes 1.4 K/uL (0.1-1.3); Absolute Neutrophil 7.3 K/uL (1.8-8.0); Basophils % 0.6 % (0-1.3); Eosinophils % 3.4 % (0-4.4); Hematocrit 27.3 % (39.6-49.0); Lymphocytes % 10.6 % (15.3-44.8); MCH 25.1 pg (27.0-35.0); MCHC 32.8 g/dL (32.0-36.0); MCV 76.7 fL (80-100); Monocytes % 13.7 % (3.3-12.3); Neutrophils % 71.7 % (41.7-73.7); Platelets 223 thou/uL (152-406); RBC Red Blood Cell Count 3.56 M/uL (4.33-5.43); Red Cell Distribution Width 17.3 % (12.1-15.2)
[2024-10-20 07:42] LABS: Albumin 2.6 g/dL (3.4-5.0); Albumin/Globulin Ratio 0.6 (1.1-1.8); Anion Gap 14.3 mEq/L (5.0-15.0); Bilirubin Total 0.8 mg/dL (0.2-1.0); Globulin 4.3 g/dL (2.3-3.5); Potassium 4.3 mEq/L (3.5-5.1); Protein, Total 6.9 g/dL (6.4-8.2)
[2024-10-20] MEDS ORDERED: GLUCAGON 1 MG/VIAL IM PRN (07:54)
[2024-10-20] MEDS ORDERED: D50W 25 GM/50 ML SYRINGE IV PRN (07:54)
[2024-10-20] MEDS: CLOPIDOGREL 75 MG TABLET PO SCH (08:40)
[2024-10-20] MEDS: ASPIRIN EC 81 MG TAB PO SCH (08:40)
[2024-10-20] MEDS: INSULIN 70/30 100 UNITS/ML SQ SCH (08:41)
--- NOTE | 2024-10-20 11:04 | PN ---
Date of Progress Note: 10/20/2024 Subjective: The patient is awake and alert. Complains of less pain. Objective: Vital Signs: Stable. He is currently afebrile. Wounds: His wound has moderate amount of fibrinous/necrotic tissue more than yesterday during the de bridement. However, the redness and swelling have improved and there is no purulent discharge. Laboratory Data: His gram stain is showing gram-positive rods. Sensitivity is pending and identific ation is pending. His white count is 10.1. The left shift has improved. Assessment: Status post incision and drainage of right foot abscess; diabetic infection, likely comp licated by clostridial organism. Recommendations: We added clindamycin for that. We will continue wound care as ordered with Yassine and Clare. We will check the cultures and adjust antibiotics accordingly. We will get input from In fectious Disease and discharge planning. /MODL Voice ID: [id number] Report ID: [id number]
--- NOTE | 2024-10-20 13:42 | P.PN ---
Subjective Date of Service: 10/20/24 Chief Complaint: Acute right foot cellulitis with purulent drainage Subjective: No chest pain or shortness of breath. No nausea or vomiting. No abdominal pain. No obvious bleeding. Looks comfortable in the bed. Complaining of right foot pain. Objective: General appearance: Alert and comfortable CVS: Normal S1 and S2 Lungs: Clear to auscultation bilaterally Abdomen: Soft, bowel sounds present, no tenderness Extremities:1+ b/l lower extremity edema. Right foot has open surgical wound Physical Examination - Vital Signs Temperature: 97.9 F Blood Pressure: 141/66 Pulse: 94 Respirations: 20 Pulse Ox (%): 94 - Studies Laboratory Data (last 24 hrs) 10/20/24 10/20/24 07:08 07:08 WBC 10.10 Hgb 9.0 L Hct 27.3 L Plt Count 223 Sodium 138 Potassium 4.3 BUN 30 H Creatinine 1.67 H Glucose 198 H Total Bilirubin 0.8 AST 23 ALT 44 Alkaline Phosphatase 200 H Microbiology Data (last 24 hrs): 10/19/24 15:56 Wound - Right Foot Gram Stain - Final 10/19/24 15:56 Wound - Right Foot Gram Stain - Final 10/19/24 15:57 Tissue - Right Foot Gram Stain - Final Assessment And Plan - Plan Assessment and plan: (1) right foot cellulitis, s/p I&D - Continue vancomycin, clindamycin and Zosyn - Foot x-ray showed subcutaneous air, no foreign body. - surgical consult requested, had I&D 10/19/24 - lower extremity Doppler -ve for DVT - requested ID consult (2) type 2 diabetes mellitus. -resume 70/30 insulin due to hyperglycemia -continue sliding scale coverage. (3) history of coronary artery disease and AK: Continue aspirin, statin and Plavix. 4. History of CHF: Hold Lasix for now. 5. Chronic anemia: Monitor closely. 6. KATIA on CKD 3A: Given gentle IV fluids, creat improving, DC IV fluids and monitor renal function closely. Plan discussed with the patient and nursing staff, discussed with surgical team.
--- NOTE | 2024-10-20 14:12 | P.CNS ---
Date of Consult: 10/20/24 Reason for admission: Acute right foot cellulitis with purulent drainage History of Present Illness: Patient is a 59-year-old male with past medical history of type 2 diabetes mellitus, CAD, osteomyelitis, hypertension, syncope, NSTEMI, CHF, diabetic neuropathy who presents to the ER today complaining of worsening pain and cellulitis to his right foot. He report he step on a horse nail 4 days ago which result in pain and swelling. Patient states he went to see his PCP and recei wendy a tetanus shot. The swelling and erythema progressively worsened with severe pain which cause him to go to the ER. Patient denies fever or chills. Had I&D on 10/19/24 with pus and necrotic tissue sent for culture. Pt is currently on clindamycin, zosyn , and vanco. Allergies No Known Allergies Allergy (Verified 09/25/24 14:52) - Past Medical/Surgical History Diabetic: Yes -: Hypertension -: Diabetes mellitus type 2 insulin dependent -: CAD with prior stent -: Hyperlipidemia -: Diabetic neuropathy -: Obesity -: Sleep apnea noncompliant -: CVA -: Chronic diastolic congestive heart failure -: Stent placement x5 -: back surgery -: ble vascular sx -: Appendectomy -: Multiple debridement left great toe -: cabg 02/03/23-2v Psychosocial/ Personal History: Patient is - Family History Father -: Heart disease, Diabetes Mother -: Heart disease Current Medications Acetaminophen (Acetaminophen 325 Mg Tablet) 650 mg PO Q4HP PRN PRN Reason: Pain scale 2-4 (Mild) Hydrocodone Bitart/Acetaminophen (Hydrocodone/Apap 7.5/325 Mg Tab) 1 tab PO Q4H PRN PRN Reason: Pain scale 5-7 (Moderate) Last Admin: 10/20/24 11:07 Dose: 1 tab Aspirin (Aspirin Ec 81 Mg Tab) 81 mg PO DAILY [facility] Last Admin: 10/20/24 08:40 Dose: 81 mg Atorvastatin Calcium (Atorvastatin 40 Mg Tab) 40 mg PO BEDTIME [facility] Last Admin: 10/20/24 21:04 Dose: 40 mg Clopidogrel Bisulfate (Clopidogrel 75 Mg Tablet) 75 mg PO DAILY [facility] Last Admin: 10/20/24 08:40 Dose: 75 mg Collagenase (Collagenase 30 Gm Ointment) 1 appl TOP DAILY [facility] Glucagon (Glucagon 1 Mg/Vial) 1 mg IM 1X PRN; Protocol PRN Reason: HYPOGLYCEMIA Heparin Sodium (Porcine) (Heparin 5000 Unit/Ml 1 Ml Vial) 5,000 unit SQ Q8HR [facility] Last Admin: 10/20/24 17:00 Dose: 5,000 unit Hydromorphone HCl (Hydromorphone Hcl 1 Mg/Ml Inj) 1 mg IV Q4H PRN PRN Reason: Pain scale 8-10 (Severe) Last Admin: 10/20/24 21:05 Dose: 1 mg Dextrose (Dextrose 10% Water Iv Soln.) 125 mls @ 0 mls/hr IV PRN PRN; Protocol PRN Reason: HYPOGLYCEMIA Last Admin: 10/19/24 08:25 Dose: 125 mls Clindamycin HCl/Dextrose (Cleocin 600 Mg/D5w 50 Ml Iv) 50 mls @ 100 mls/hr IV Q8HR@0400,1200,2000 [facility]; Protocol Last Admin: 10/20/24 21:04 Dose: 50 mls Cefepime HCl 1 gm/ Sodium (Chloride) 100 mls @ 200 mls/hr IV Q12HR [facility] Last Admin: 10/20/24 21:04 Dose: 100 mls Insulin Human Isoph/Insulin Regular (Insulin 70/30 100 Units/Ml) 20 unit SQ BID [facility] Last Admin: 10/20/24 21:00 Dose: Not Given Insulin Human Regular (Insulin Regular (Human) 100 Unit/Ml) 0 unit SQ ACHS [facility]; Protocol Last Admin: 10/20/24 21:00 Dose: Not Given Ondansetron HCl (Ondansetron 4 Mg/2 Ml Vial) 4 mg IV Q6HR [facility] Last Admin: 10/20/24 17:00 Dose: 4 mg Tamsulosin HCl (Tamsulosin 0.4 Mg Sr Cap) 0.4 mg PO BEDTIME [facility] Last Admin: 10/20/24 21:04 Dose: 0.4 mg - Social History Alcohol use: No CD- Drugs: No Caffeine use: No Physical Examination General appearance: Alert and comfortable, not in distress Neuro: AOx3 CVS: Normal S1 and S2 Lungs: Clear to auscultation bilaterally, On 2LNC Abdomen: Soft, bowel sounds present, no tenderness, ND Extremities:1+ b/l lower extremity edema. Right foot surgical wound with dressing covered. Temp Pulse Resp BP Pulse Ox 97.6 F 120 H 17 135/67 95 05/09/25 20:00 10/20/24 20:00 10/20/24 20:00 10/20/24 20:00 10/20/24 20:00 - Studies Laboratory Data (last 24 hrs) 10/20/24 08:12: POC Glucose 199 H 10/20/24 07:08: Sodium 138, Potassium 4.3, Chloride 105, Carbon Dioxide 23, Anion Gap 14.3, BUN 30 H, Creatinine 1.67 H, Est GFR (CKD-EPI) 46 L, Glucose 198 H, Calcium 8.6, Total Bilirubin 0.8, AST 23, ALT 44, Alkaline Phosphatase 200 H, Serum Total Protein 6.9, Albumin 2.6 L, Globulin 4.3 H, Albumin/Globulin Ratio 0.6 L 10/20/24 07:08: WBC 10.10, RBC 3.56 L, Hgb 9.0 L, Hct 27.3 L, MCV 76.7 L, MCH 25.1 L, MCHC 32.8, RDW 17.3 H, Plt Count 223, MPV 8.0, Neutrophils % 71.7, Lymphocytes % 10.6 L, Monocytes % 13.7 H, Eosinophils % 3.4, Basophils % 0.6, Absolute Neutrophils 7.3, Absolute Lymphocytes 1.1, Absolute Monocytes 1.4 H, Absolute Eosinophils 0.3, Absolute Basophils 0.1 Microbiology 10/19/24 15:56 Wound - Right Foot Gram Stain - Final 10/19/24 15:56 Wound - Right Foot Gram Stain - Final 10/19/24 15:57 Tissue - Right Foot Gram Stain - Final 10/18/24 23:50 Blood - Blood Aerobic Blood Culture - Preliminary No growth in 24 hours. 10/18/24 23:50 Blood - Blood Anaerobic Blood Culture - Preliminary No growth in 24 hours. 10/18/24 23:35 Blood - Blood Aerobic Blood Culture - Preliminary No growth in 24 hours. 10/18/24 23:35 Blood - Blood Anaerobic Blood Culture - Preliminary No growth in 24 hours. Assessment and Plan (1) Gas-forming infection with cellulitis in right foot s/p I&D 10/19/24 (2) chronic type 2 diabetes mellitus. (3) Moderate protein calorie malnourishment Recommend to dc zosyn and vanco. Continue clindamycin and add cefepime for a total of 14 days. tentative stop date november 03 wound culture pending blood culture negative monitor Wbc and fever trend continue wound and support care case discussed with Dr Pineda thank you for the consult
[2024-10-20] MEDS: CEFEPIME 1 GM in NA CHLORIDE 0.9% 100 ML IV SCH (21:04)
[2024-10-21 06:52] LABS: Absolute Basophils 0.1 K/uL (0-0.5); Absolute Eosinophils 0.2 K/uL (0-0.5); Absolute Monocytes 1.1 K/uL (0.1-1.3); Absolute Neutrophil 7.8 K/uL (1.8-8.0); Basophils % 0.7 % (0-1.3); Eosinophils % 1.8 % (0-4.4); Hematocrit 26.4 % (39.6-49.0); Hemoglobin 8.6 g/dL (13.6-17.9); Lymphocytes % 9.8 % (15.3-44.8); MCHC 32.5 g/dL (32.0-36.0); MCV 76.8 fL (80-100); MPV 8.2 fL (7.6-11.3); Monocytes % 11.2 % (3.3-12.3); Neutrophils % 76.5 % (41.7-73.7); Nucleated Red Blood Cells % 0.1 % (0-0); Platelets 231 thou/uL (152-406); RBC Red Blood Cell Count 3.44 M/uL (4.33-5.43); Red Cell Distribution Width 17.7 % (12.1-15.2)
[2024-10-21 06:59] LABS: Anion Gap 15.3 mEq/L (5.0-15.0); Potassium 4.3 mEq/L (3.5-5.1)
--- NOTE | 2024-10-21 07:22 | P.PN ---
Date of Service: 10/21/24 Subjective: feeling constipated. Hasn't had BM since before surgery right foot pain ~same doesn't feel worse afebrile Physical Exam: GEN: Alert, oriented, NAD CV: Regular rate and rhythm, no edema Pulm: Nonlabored respirations on room air, clear bilaterally ABD: soft, nontender, nondistended Integumentary: R foot with dressing in place. Redness, swelling improving. No purulent drainage. Neuro: Normal speech, normal affect Problem List: Right foot cellulitis, s/p I&D (10/19) Constipation IDDM with neuropathy Chronic diastolic CHF Hypertension Hyperlidemia Obstructive sleep apnea Hx CAD with prior PCI s/p CABG (2022) Hx osteomyelitis Hx CVA Right foot cellulitis, s/p I&D (10/19) Hx osteomyelitis on admission, presents with with pain, redness and swelling after stepping on a nail of a horse last week Foot x-ray showed subcutaneous air, no foreign body Venous u/s: no DVT in lower extremities bilaterally 10/19 - s/p I&D with Dr. Lorenzana Local wound care per surgery: Clean wound, apply Santyl and Vashe Wet-to-dry dressing changes daily Pain control PT eval 10/20 - IV Vanc/Zosyn switched to IV clindamycin/Cefepime Continue clindamycin/Cefepime for 2 weeks total per ID . End date: ~11/03 Follow blood and wound cultures ID is following 10/21 - R foot erythema, swelling improving. No drainage. Continue Clinda/Cefepime for 2 weeks (end date: ~11/03) cultures pending, will confirm with ID if needs IV antibiotics for entire 2 weeks. Continue wound care Constipation Feeling constipated. Hasn't had BM since before surgery. Constipation likely related to pain medication 10/21 - colace BID added, PRN dulcolax Miralax x1 added dilaudid switched to morphine IDDM with neuropathy accu-cheks, SSI confirm home insulin regimen Chronic diastolic CHF Hypertension Hyperlidemia Obstructive sleep apnea Hx CAD with prior PCI s/p CABG (2022) Hx CVA confirm home meds, restart as appropriate resume plavix, asa 81mg, flomax, statin, VTE: heparin sq Code: Full Dispo: Home, ~2-3 days Pending surgical recs, cultures Time Spent Managing Pts Care (In Minutes): 55
[2024-10-21] MEDS: COLLAGENASE 30 GM OINTMENT TOP SCH (08:29)
[2024-10-21] MEDS: FLU (Fluarix Triv) TS24-25(6MOS UP)/PF 45 MCG/0.5 ML Syringe IM ONE (09:00)
[2024-10-21] MEDS ORDERED: BISACODYL 10 MG RECTAL SUPP PR PRN (10:37)
[2024-10-21] MEDS: POLYETHYL GLY 3350 17 GM/DOSE PO ONE ×2 (10:37→13:30)
--- NOTE | 2024-10-21 11:29 | PN ---
Date of Progress Note: 10/21/2024 Subjective: The patient is awake. Is still having some pain, but better. Objective: Vital Signs: Stable. He is afebrile. Wounds: Examination of the wound reveals still with redness and swelling and with some necrotic tissue in the wound, but no purulence. The patient, as stated earlier, may need surgical debridement down the road, but currently it appears under control. Laboratory Data: Reviewed. White count is 10.2. There is a slight left shift and sensitivities and bacterial identification is pending. Infectious disease consultation noted. Recommendations: IV antibiotics per Infectious Disease. Wound care is ordered. Discharge planning. Plan of care discussed with the hospitalist team. /NAVEEN Voice ID: [id number] Report ID: [id number] SASCHA
--- NOTE | 2024-10-21 15:34 | PN ---
Subjective: The patient lying in bed. No new acute event. Chart reviewed. Objective: Vital Signs: Temperature 97.7, pulse 88, respirations 14, blood pressure 137/63. Lungs: Basal crackles. Heart: S1, S2, regular. Abdomen: Soft, nontender. Bowel sounds present. Extremities: Foot in surgical dressing. Laboratory Data: WBC 10.2, hemoglobin 8.6, platelets 231. BUN of 28, creatinine 1.55, glucose is 30 2. Cultures are pending. Assessment And Plan: 1. Right foot cellulitis with history of osteomyelitis since 10/19, diabetes mellitus and diabetic fo ot ulcer. 2. Neuropathy. 3. Anemia of chronic disease. 4. Moderate protein-calorie malnourishment. The patient currently on clindamycin and cefepime. Consider starting probiotic. Pending culture res ults. Continue to monitor the patient closely. Monitor signs of infection with WBC and fever trends . NF/MODL Voice ID: [id number] Report ID: [id number]
[2024-10-21] MEDS: MORPHINE 4 MG/ML SYR IV PRN (15:41)
[2024-10-21] MEDS ORDERED: BENZONATATE 100 MG CAP PO PRN (21:00)
[2024-10-21] MEDS: DOCUSATE NA 100 MG CAP PO SCH (22:19)
[2024-10-21] MEDS: GUAIFENESIN 600 MG SA TAB PO SCH (22:20)
[2024-10-21] MEDS: INSULIN 70/30 100 UNITS/ML SQ SCH (22:21)
[2024-10-21] MEDS: HYDROMORPHONE HCL 1 MG/ML INJ IV ONE (23:08)
--- NOTE | 2024-10-22 02:06 | RAD REPORT ---
EXAM DESCRIPTION: Chest Single View CLINICAL HISTORY: 59 years Male sob COMPARISON: April 11, 2023 TECHNIQUE: AP view of the chest was obtained. FINDINGS: Cardiac silhouette is enlarged. Central vessels are obscured. Small bilateral pleural effusions. Extensive interstitial and airspace opacities in the lungs bilater ally. Mediastinal surgical clips and sternal wires. No pneumothorax. IMPRESSION: Enlarged heart with extensive bilateral infiltrates. The findings could be consistent with congestive heart failure and developing pulmonary edema. Superimposed inflammatory process not excluded. Electronically signed by: Chana Salvador MD 10/22/2024 01:38 AM CDT RP Due to temporary technical issues with the PACS/Say-Hey reporting system, reports are being kranthi d by the in-house radiologist without review as a courtesy to ensure prompt reporting the interpreting radiologist is fully responsible for the content of the report. Transcribed Date/Time: 10/22/2024 2:06 AM
[2024-10-22 05:51] LABS: Absolute Eosinophils 0.3 K/uL (0-0.5); Absolute Lymphocytes (CBC) 1.3 K/uL (0.7-4.9); Absolute Monocytes 1.1 K/uL (0.1-1.3); Absolute Neutrophil 6.6 K/uL (1.8-8.0); Basophils % 0.5 % (0-1.3); Eosinophils % 3.5 % (0-4.4); Hematocrit 27.3 % (39.6-49.0); Hemoglobin 9.2 g/dL (13.6-17.9); Lymphocytes % 13.7 % (15.3-44.8); MCH 25.9 pg (27.0-35.0); MCHC 33.6 g/dL (32.0-36.0); MCV 77.1 fL (80-100); MPV 7.9 fL (7.6-11.3); Monocytes % 11.6 % (3.3-12.3); Neutrophils % 70.7 % (41.7-73.7); Nucleated Red Blood Cells % 0.2 % (0-0); Platelets 298 thou/uL (152-406); RBC Red Blood Cell Count 3.54 M/uL (4.33-5.43); Red Cell Distribution Width 17.3 % (12.1-15.2)
[2024-10-22 06:08] LABS: Anion Gap 10.4 mEq/L (5.0-15.0); Potassium 3.4 mEq/L (3.5-5.1)
[2024-10-22] MEDS: POTASSIUM CL SA 10 MEQ TAB PO ONE (06:33)
[2024-10-22] MEDS: INSULIN 70/30 100 UNITS/ML SQ SCH (10:29)
[2024-10-22] MEDS: POTASSIUM 25 MEQ EFFERV TAB ONE (11:46)
[2024-10-22] MEDS: POTASSIUM 25 MEQ EFFERV TAB PO ONE (11:50)
--- NOTE | 2024-10-22 11:53 | P.PN ---
Date of Service: 10/22/24 Subjective: Doing okay no acute events overnight afebrile Physical Exam: GEN: Alert, oriented, NAD CV: Regular rate and rhythm, no edema Pulm: Nonlabored respirations on room air, clear bilaterally ABD: soft, nontender, nondistended Integumentary: R foot with dressing in place. Redness, swelling improving. No purulent drainage. Neuro: Normal speech, normal affect Problem List: Right foot cellulitis, s/p I&D (10/19) Constipation IDDM with neuropathy Chronic diastolic CHF Hypertension Hyperlidemia Obstructive sleep apnea Hx CAD with prior PCI s/p CABG (2022) Hx osteomyelitis Hx CVA Right foot cellulitis, s/p I&D (10/19) Hx osteomyelitis on admission, presents with with pain, redness and swelling after stepping on a nail of a horse last week Foot x-ray showed subcutaneous air, no foreign body Venous u/s: no DVT in lower extremities bilaterally 10/19 - s/p I&D with Dr. Lorenzana Local wound care per surgery: Clean wound, apply Santyl and Vashe Wet-to-dry dressing changes daily Pain control PT eval 10/20 - IV Vanc/Zosyn switched to IV clindamycin/Cefepime Continue clindamycin/Cefepime for 2 weeks total per ID . End date: ~11/03 Follow blood and wound cultures ID is following 10/21 - R foot erythema, swelling improving. No drainage. Continue Clinda/Cefepime for 2 weeks (end date: ~11/03) cultures pending, will confirm with ID if needs IV antibiotics for entire 2 weeks. Continue wound care 10/22 - no signficant change, continues with moderate pain also reporting pain on buttocks from pressure sore Dr. Lorenzana planning NPO after midnight for possible OR tomorrow Constipation Feeling constipated. Hasn't had BM since before surgery. Constipation likely related to pain medication 10/21 - colace BID added, PRN dulcolax Miralax x1 added dilaudid switched to morphine IDDM with neuropathy accu-cheks, SSI confirm home insulin regimen Chronic diastolic CHF Hypertension Hyperlidemia Obstructive sleep apnea Hx CAD with prior PCI s/p CABG (2022) Hx CVA confirm home meds, restart as appropriate resume plavix, asa 81mg, flomax, statin, VTE: heparin sq Code: Full Dispo: Home, ~2-3 days Pending surgical recs, cultures Time Spent Managing Pts Care (In Minutes): 55
--- NOTE | 2024-10-22 12:50 | PN ---
Date of Progress Note: 10/22/2024 Subjective: The patient is awake, alert. Complaining of nonspecific pain. Vital signs are stable. He is afebrile. His white count is normal. His left shift has improved. His sensitivities are sti ll pending on his cultures. His dressing is clean, dry, and intact. There is no increase in redness or swelling. Assessment: Status post debridement of a right foot infection. Recommendations: As patient had moderate amount of fibrin present, he will need debridement in the O R as he is very intolerant of pain. So we will keep him NPO, and I will look at the wound tomorrow m orning prior to making that decision, but I anticipate that the patient will need debridement as he h as a very severe infection. The patient understands risks, benefits, alternatives and agrees to proc edure. RENZO/MODLucrecia Voice ID: [id number] Report ID: [id number]
[2024-10-23 06:42] LABS: Absolute Basophils 0.1 K/uL (0-0.5); Absolute Eosinophils 0.4 K/uL (0-0.5); Absolute Lymphocytes (CBC) 1.4 K/uL (0.7-4.9); Absolute Monocytes 1.4 K/uL (0.1-1.3); Absolute Neutrophil 7.5 K/uL (1.8-8.0); Basophils % 0.6 % (0-1.3); Eosinophils % 3.9 % (0-4.4); Hematocrit 28.2 % (39.6-49.0); Hemoglobin 9.2 g/dL (13.6-17.9); Lymphocytes % 13.3 % (15.3-44.8); MCH 24.7 pg (27.0-35.0); MCHC 32.6 g/dL (32.0-36.0); MCV 75.7 fL (80-100); MPV 7.5 fL (7.6-11.3); Monocytes % 12.7 % (3.3-12.3); Neutrophils % 69.5 % (41.7-73.7); Platelets 366 thou/uL (152-406); RBC Red Blood Cell Count 3.72 M/uL (4.33-5.43); Red Cell Distribution Width 17.4 % (12.1-15.2)
[2024-10-23 06:53] LABS: Anion Gap 11.1 mEq/L (5.0-15.0); Magnesium 1.9 mg/dL (1.6-2.4); Potassium 4.1 mEq/L (3.5-5.1)
[2024-10-23] MEDS: HYDRALAZINE HCL 20 MG/ML VIAL IV PRN (09:30)
[2024-10-23] MEDS: NA CHLORIDE 0.9% 1,000 ML ONE (09:50)
[2024-10-23] MEDS: BUPIVACAINE 0.5% PF 10 ML VIAL ONE (10:12)
[2024-10-23] MEDS ORDERED: LIDOCAINE 1% MPF 5 ML VIAL ONE (10:18)
[2024-10-23] MEDS ORDERED: propofoL 200 MG/20 ML VIAL IV ONE (10:18)
[2024-10-23] MEDS ORDERED: MIDAZOLAM HCL 2 MG/2 ML INJ ONE (10:18)
[2024-10-23] MEDS ORDERED: FENTANYL CITR 100 MCG/2 ML ONE (10:52)
[2024-10-23] MEDS: COLLAGENASE 30 GM OINTMENT TOP ONE (11:06)
--- NOTE | 2024-10-23 11:17 | P.OP ---
Date of Service: 10/23/24 Preop diagnosis: Nonhealing right foot wound, status post debridement of her right foot infected wound Postop diagnosis: Same Procedure performed: Excisional debridement of the right foot wound 6 x 3 cm to subcutaneous tissue Surgeon: Ulisses Lorenzana MD Reservations Manager: None Estimated blood loss: Minimal Specimen: Necrotic tissue Findings: As above Anesthesia: General Complications: None Drains: None Fluids and blood products: Nonapplicable Disposition: Recovery room Operative note: Patient brought to the OR and placed in supine position. General anesthesia began. Patient prepped and draped in usual sterile fashion. Marcaine 0.5% infiltrated locally. Cautery and scissors used to debride the wound of necrotic fibrin to the subcutaneous level. Total area of debridement was approximately 6 x 3 cm. Care was taken to avoid damage to the digital branch of artery in the 1st and 2nd toes webspace. Wound irrigated and bleeding controlled cautery. Santyl wet-to-dry normal saline dressing change applied. Patient awakened and taken to recovery room in good general condition. CC:
--- NOTE | 2024-10-23 11:46 | P.PN ---
Date of Service: 10/23/24 Subjective: seen after surgery doing well post-op afebrile Physical Exam: GEN: Alert, oriented, NAD CV: Regular rate and rhythm, no edema Pulm: Nonlabored respirations on room air, clear bilaterally ABD: soft, nontender, nondistended Integumentary: R foot with dressing in place. Redness, swelling improving. No purulent drainage. Neuro: Normal speech, normal affect Problem List: Right foot cellulitis, s/p I&D (10/19) Constipation IDDM with neuropathy Chronic diastolic CHF Hypertension Hyperlidemia Obstructive sleep apnea Hx CAD with prior PCI s/p CABG (2022) Hx osteomyelitis Hx CVA Right foot cellulitis, s/p I&D x2 (10/19 and 10/23) Hx osteomyelitis on admission, presents with with pain, redness and swelling after stepping on a nail of a horse last week Foot x-ray showed subcutaneous air, no foreign body Venous u/s: no DVT in lower extremities bilaterally 10/19 - s/p I&D with Dr. Lorenzana Local wound care per surgery: Clean wound, apply Santyl and Vashe Wet-to-dry dressing changes daily Pain control, PT eval 10/20 - IV Vanc/Zosyn switched to IV clindamycin/Cefepime Continue clindamycin/Cefepime for 2 weeks total per ID . End date: ~11/03 Follow blood and wound cultures ID is following 10/21 - R foot erythema, swelling improving. No drainage. 10/22 - no signficant change, continues with moderate pain also reporting pain on buttocks from pressure sore Dr. Lorenzana planning NPO after midnight for possible OR tomorrow 10/23 - s/p I&D R foot wound with Dr. Lorenzana wound care per surgery Continue Clinda/Cefepime for 2 weeks (end date: ~11/03) cultures pending, will confirm with ID if needs IV antibiotics for entire 2 weeks. Constipation Feeling constipated. Hasn't had BM since before surgery. Constipation likely related to pain medication 10/21 - colace BID added, PRN dulcolax Miralax x1 added dilaudid switched to morphine IDDM with neuropathy accu-cheks, SSI confirm home insulin regimen Chronic diastolic CHF Hypertension Hyperlidemia Obstructive sleep apnea Hx CAD with prior PCI s/p CABG (2022) Hx CVA confirm home meds, restart as appropriate resume plavix, asa 81mg, flomax, statin, VTE: heparin sq Code: Full Dispo: Home, ~2-3 days Pending surgical recs, cultures Time Spent Managing Pts Care (In Minutes): 55
--- NOTE | 2024-10-23 13:06 | PN ---
Date of Progress Note: 10/23/2024 The patient is awake, alert. Still complaining of pain. It is nonspecific pain. His vital signs ar e stable. He is afebrile. His white count is normal. There is no left shift. His culture and sens itivities are still pending. /MODL Voice ID: [id number] Report ID: [id number]
--- NOTE | 2024-10-23 13:16 | PN ---
Date of Progress Note: 10/23/2024 Subjective: The patient is awake, alert, complaining of pain. Objective: Vital signs are stable, afebrile. Culture and sensitivities are pending. Examination of the wound reveals moderate amount of fibrin, which needs surgical debridement as the patient cannot tolerate bedside debridement. The erythema, warmth, and edema have slightly improved, but are still present. Assessment: Infected wound with likely clostridial infection and nonhealing, needs surgical debridem ent. Recommendations: We will proceed with surgical debridement as planned. The patient understands risk s, benefits, alternatives, agrees to procedure. /MODL Voice ID: [id number] Report ID: [id number]
--- NOTE | 2024-10-23 15:39 | P.PN ---
Date of Service: 10/23/24 Subjective: The patient lying in bed. No new acute event. Chart reviewed.pt denied problem with abx Objective: Temp Pulse Resp BP Pulse Ox 97.7 F 99 H 18 157/63 H 93 10/23/24 12:00 10/23/24 12:00 10/23/24 12:00 10/23/24 12:00 10/23/24 08:00 GEN: alert, oriented, NAD Lungs: Basal crackles. on 2L NC Heart: S1, S2, regular. Abdomen: Soft, nontender. Bowel sounds present. Extremities: surgical dressing on right foot Neuro: Normal speech, normal affect Laboratory Data: WBC 10.8, hemoglobin 9.2, platelets 366. BUN of 13, creatinine 1.15, glucose is 190. Cultures are pending. Assessment And Plan: 1. Right foot cellulitis s/p I&D x 2 (10/19 and 10/23). history of osteomyelitis, diabetes mellitus and diabetic foot ulcer. 2. Neuropathy. 3. Anemia of chronic disease. 4. Moderate protein-calorie malnourishment The patient currently on clindamycin and cefepime.Foot x-ray showed subcutaneous air, no foreign body Venous u/s: no DVT in lower extremities bilaterally. Consider starting probiotic. Pending culture results. Recommend abx for total of 2 weeks. tentative abx stop date: 11/03 Monitor signs of infection with WBC and fever trends.Continue wound and support care per surgery. case discussed and in agreement with Dr Pineda
[2024-10-24 08:31] LABS: Absolute Eosinophils 0.6 K/uL (0-0.5); Absolute Lymphocytes (CBC) 1.5 K/uL (0.7-4.9); Absolute Monocytes 1.3 K/uL (0.1-1.3); Absolute Neutrophil 8.4 K/uL (1.8-8.0); Eosinophils % 5.1 % (0-4.4); Hematocrit 29.4 % (39.6-49.0); Hemoglobin 9.6 g/dL (13.6-17.9); Lymphocytes % 12.9 % (15.3-44.8); MCH 24.8 pg (27.0-35.0); MCHC 32.7 g/dL (32.0-36.0); MCV 75.8 fL (80-100); MPV 7.8 fL (7.6-11.3); Monocytes % 10.8 % (3.3-12.3); Neutrophils % 71.2 % (41.7-73.7); Nucleated Red Blood Cells % 0.1 % (0-0); Platelets 385 thou/uL (152-406); RBC Red Blood Cell Count 3.88 M/uL (4.33-5.43); Red Cell Distribution Width 18.2 % (12.1-15.2)
[2024-10-24] MEDS: HYDROCODONE/APAP 10/325 TAB PO PRN (13:01)
[2024-10-24] MEDS: LACTOBACILLUS/ACIDOPHILUS TAB PO SCH (13:01)
--- NOTE | 2024-10-24 13:06 | PN ---
Date of Progress Note: 10/24/2024 Subjective: Patient is awake, alert. Nursing staff states that the patient removed his dressing whe n he was in the bathroom and walked around the floor with his dressing off. His vitals are stable. He is afebrile. Laboratory Data: Reviewed. White count is 11.7. There is no left shift, and cultures are still pen ding and no anaerobes are grown. Dressing is clean, dry, and intact. Assessment: Status post excisional debridement x2 for a gas-producing organism in the left foot prob ably with tendon involvement. Recommendations: I discussed the case with Infectious Disease, Dr. Pineda. The patient will probabl y need 6 weeks of IV antibiotics. Wound care as ordered. Discharge planning. /MODL Voice ID: [id number] Report ID: [id number]
--- NOTE | 2024-10-24 15:11 | P.PN ---
Subjective Date of Service: 10/24/24 Chief Complaint: Acute right foot cellulitis with purulent drainage Patient complaining of pain in his right foot however he appears drowsy and cannot stay awake. No recorded fever. Physical Examination - Vital Signs Temperature: 97.6 F Blood Pressure: 149/70 Pulse: 92 Respirations: 16 Pulse Ox (%): 93 - Studies Microbiology Data (last 24 hrs): 10/19/24 15:56 Wound - Right Foot Gram Stain - Final 10/19/24 15:57 Tissue - Right Foot Gram Stain - Final 10/18/24 23:50 Blood - Blood Aerobic Blood Culture - Final No growth in 5 days. 10/18/24 23:50 Blood - Blood Anaerobic Blood Culture - Final No growth in 5 days. 10/18/24 23:35 Blood - Blood Aerobic Blood Culture - Final No growth in 5 days. 10/18/24 23:35 Blood - Blood Anaerobic Blood Culture - Final No growth in 5 days. Assessment And Plan - Plan Physical Exam: GEN: Oriented x 3, NAD CV: Regular rate and rhythm, no edema Pulm: Nonlabored respirations on room air, clear bilaterally ABD: soft, nontender, nondistended Integumentary: R foot with dressing in place. Redness, swelling improving. Neuro: Normal speech, normal affect. Problem List: Right foot cellulitis, s/p I&D (10/19) Constipation IDDM with neuropathy Chronic diastolic CHF Hypertension Hyperlidemia Obstructive sleep apnea Hx CAD with prior PCI s/p CABG (2022) Hx osteomyelitis Hx CVA Right foot cellulitis, s/p I&D x2 (10/19 and 10/23) Hx osteomyelitis on admission, presents with with pain, redness and swelling after stepping on a nail of a horse last week Foot x-ray showed subcutaneous air, no foreign body Venous u/s: no DVT in lower extremities bilaterally 10/19 - s/p I&D with Dr. Lorenzana Local wound care per surgery: Clean wound, apply Santyl and Vashe Wet-to-dry dressing changes daily Pain control, PT eval 10/20 - IV Vanc/Zosyn switched to IV clindamycin/Cefepime Continue clindamycin/Cefepime for 2 weeks total per ID . End date: ~11/03 Follow blood and wound cultures ID is following 10/21 - R foot erythema, swelling improving. No drainage. 10/22 - no signficant change, continues with moderate pain also reporting pain on buttocks from pressure sore Dr. Lorenzana planning NPO after midnight for possible OR tomorrow 10/23 - s/p I&D R foot wound with Dr. Lorenzana wound care per surgery Continue Clinda/Cefepime for 2 weeks (end date: ~11/03) cultures pending, will confirm with ID if needs IV antibiotics for entire 2 weeks. 10/[address] Pineda input appreciated General consensus is for patient to have IV cefepime and clindamycin on discharge pending deep tissue wound culture Patient to have 6 weeks of IV antibiotics for concern for osteomyelitis and tendinitis PICC line for outpatient antibiotics ordered. Analgesics as needed, titrate [place]. Constipation Feeling constipated. Hasn't had BM since before surgery. Constipation likely related to pain medication 10/21 - colace BID added, PRN dulcolax Miralax x1 added dilaudid switched to morphine IDDM with neuropathy accu-cheks, SSI confirm home insulin regimen Chronic diastolic CHF Hypertension Hyperlidemia Obstructive sleep apnea Hx CAD with prior PCI s/p CABG (2022) Hx CVA Continue plavix, asa 81mg, flomax, statin, VTE: heparin sq Code: Full Dispo: Home with home health.
[2024-10-24] MEDS: Mupirocin NASAL 2 APPL/1 GM TUBE NAS SCH (20:58)
--- NOTE | 2024-10-24 21:27 | PN ---
Subjective: The patient is lying in bed. No new acute event. Status post surgical debridement. The patient is doing better. According to the surgical team, noted to have gas in the tissue and currently surgical wound is being addressed by the surgical team. Objective: Vital Signs: Temperature 97.7, pulse 88, respirations 20, blood pressure 147/66. Lungs: Basal crackles. Heart: S1, S2. Regular. Abdomen: Soft, nontender. Bowel sounds present. Extremities: Right foot edema and wound discharge noted. Surgical wound noted. Laboratory Data: Shows WBC 11.7, hemoglobin 9.6, platelets are 385. BUN of 13, creatinine 1.5. Assessment And Plan: 1. Right foot cellulitis, status post I and D on 10/19 and 10/23. Concern regarding gangrenous and clostridium infection. The patient is currently being treated with clindamycin and cefepime because of gas-forming organism. We will also recommend to add probiotic at this time. Continue antibiotic treatment for 6 weeks. Discuss with the surgical team and hospitalist team. 2. Diabetes mellitus and diabetic neuropathy. 3. Peripheral vascular disease. 4. Leukocytosis. 5. Anemia of chronic disease. 6. Cultures are negative to date with tissue cultures growing gram- positive rods. Monitor signs of infection with WBC and fever trends. We will follow the patient as needed. NF/MODL Voice ID: [id number] Report ID: [id number] MTDD
[2024-10-24 22:21] VITALS: O2SAT 98
--- NOTE | 2024-10-25 06:14 | RAD REPORT ---
TIME OF STUDY: 10/24/2024 10:38 PM CDT REASON FOR EXAM: NEW PICC LINE COMPARISON: October 21, 2024 FINDINGS: AP view of the chest was obtained, chest 1 view. Lungs: The lungs are adequately inflated. Mild pulmonary vascular congestion with patchy opacities ar e grossly unchanged. There is been interval placement of a right arm PICC. The tip is at the atriocaval junction.. Pleura: No pneumothorax. Tiny bilateral pleural effusions are noted. Heart and Mediastinum: Cardiac silhouette is enlarged and stable. Median sternotomy wires are noted. Bones: No acute bony abnormality.. IMPRESSION: 1. Right arm PICC in good position. Electronically signed by: Mike Farris MD 10/24/2024 11:12 PM CDT RP Due to temporary technical issues with the [employer] reporting system, reports are being kranthi d by the in-house radiologist without review as a courtesy to ensure prompt reporting the interpreting radiologist is fully responsible for the content of the report. Transcribed Date/Time: 10/25/2024 6:14 AM
[2024-10-25 06:17] LABS: Absolute Basophils 0.1 K/uL (0-0.5); Absolute Eosinophils 0.5 K/uL (0-0.5); Absolute Lymphocytes (CBC) 1.4 K/uL (0.7-4.9); Absolute Monocytes 0.8 K/uL (0.1-1.3); Absolute Neutrophil 5.9 K/uL (1.8-8.0); Basophils % 0.8 % (0-1.3); Eosinophils % 6.3 % (0-4.4); Hematocrit 25.5 % (39.6-49.0); Lymphocytes % 16.4 % (15.3-44.8); MCH 25.1 pg (27.0-35.0); MCHC 33.2 g/dL (32.0-36.0); MCV 75.5 fL (80-100); MPV 7.2 fL (7.6-11.3); Neutrophils % 67.5 % (41.7-73.7); Platelets 361 thou/uL (152-406); RBC Red Blood Cell Count 3.38 M/uL (4.33-5.43); Red Cell Distribution Width 17.7 % (12.1-15.2)
[2024-10-25 06:21] LABS: Hemoglobin 8.5 g/dL (13.6-17.9)
--- NOTE | 2024-10-25 11:12 | PN ---
Date of Progress Note: 10/25/2024 Subjective: The patient is awake, alert. Vitals are stable. He is afebrile. His cultures reviewed growing out Streptococcus intermedius, sensitive to most antibiotics. His wound has some fibrin in it. There is still some erythema and slight edema. There is no purulent drainage. Assessment: Status post excision and debridement of right foot infected wound x2. Recommendation: Continue IV antibiotics as ordered. Wound care as ordered. He is cleared from surg chapis for discharge. Can follow up with [facility] Dr. Chapa will discuss the c ase with Dr. Pineda and decide which antibiotics to discharge the patient home on. The patient brandon alvarez has a PICC line. The patient will need 6 weeks IV antibiotics. RENZO/MODL Voice ID: [id number] Report ID: [id number]
--- NOTE | 2024-10-25 14:53 | P.PN ---
Date of Service: 10/25/24 Subjective: The patient lying in bed. No new acute event. Chart reviewed.pt denied problem with abx Objective: Temp Pulse Resp BP Pulse Ox 97.9 F 90 18 181/75 H 94 10/25/24 12:00 10/25/24 12:00 10/25/24 12:00 10/25/24 12:00 10/25/24 12:00 GEN: alert, oriented, NAD Lungs: Basal crackles. on 2L NC Heart: S1, S2, regular. Abdomen: Soft, nontender. Bowel sounds present. Extremities: surgical dressing on right foot. Redness and swelling improving. Neuro: Normal speech, normal affect Laboratory Data: WBC 8.8, hemoglobin 8.5, platelets 361. BUN of 10, creatinine 0.95, glucose is 248 Microbiology 10/19/24 15:56 Wound - Right Foot Gram Stain - Final 10/19/24 15:56 Wound - Right Foot Culture & Sensitivity - Final 10/19/24 15:57 Tissue - Right Foot Gram Stain - Final 10/19/24 15:57 Tissue - Right Foot Culture & Sensitivity - Final Staphylococcus Intermedius 10/18/24 23:50 Blood - Blood Aerobic Blood Culture - Final No growth in 5 days. 10/18/24 23:50 Blood - Blood Anaerobic Blood Culture - Final No growth in 5 days. 10/18/24 23:35 Blood - Blood Aerobic Blood Culture - Final No growth in 5 days. 10/18/24 23:35 Blood - Blood Anaerobic Blood Culture - Final No growth in 5 days. 10/19/24 15:56 Wound - Right Foot Gram Stain - Final 10/19/24 15:56 Wound - Right Foot Anaerobic Culture - Final NO ANAEROBES GROWN. Assessment And Plan: 1. Right foot cellulitis s/p I&D x 2 (10/19 and 10/23). history of osteomyelitis, diabetes mellitus and diabetic foot ulcer. 2. Neuropathy. 3. Anemia of chronic disease. 4. Moderate protein-calorie malnourishment right foot growing staphylococcus Intermedius most likely colonization. The patient currently on clindamycin and cefepime because of gas-forming organism.Foot x-ray showed subcutaneous air, no foreign body Venous u/s: no DVT in lower extremities bilaterally. Consider starting probiotic. Concern regarding gangrenous and clostridium infection.Recommend abx for total of 6 weeks. Monitor signs of infection with WBC and fever trends.Continue wound and support care per surgery. case discussed and in agreement with Dr Pineda
--- NOTE | 2024-10-25 17:22 | P.PN ---
Subjective Date of Service: 10/25/24 Chief Complaint: Acute right foot cellulitis with purulent drainage Patient has been irate because he not able to discharge home today. Home antibiotic arrangement is pending. No recorded fever. Physical Examination - Vital Signs Temperature: 97.9 F Blood Pressure: 181/75 Pulse: 90 Respirations: 18 Pulse Ox (%): 94 - Studies Microbiology Data (last 24 hrs): 10/19/24 15:56 Wound - Right Foot Gram Stain - Final 10/19/24 15:56 Wound - Right Foot Culture & Sensitivity - Final 10/19/24 15:57 Tissue - Right Foot Gram Stain - Final 10/19/24 15:57 Tissue - Right Foot Culture & Sensitivity - Final Staphylococcus Intermedius Assessment And Plan - Plan Physical Exam: GEN: Oriented x 3, NAD CV: Regular rate and rhythm, no edema Pulm: Nonlabored respirations on room air, clear bilaterally ABD: soft, nontender, nondistended Integumentary: R foot with clean dressing in place. Neuro: Normal speech, normal affect. Problem List: Right foot cellulitis, s/p I&D (10/19) Constipation IDDM with neuropathy Chronic diastolic CHF Hypertension Hyperlidemia Obstructive sleep apnea Hx CAD with prior PCI s/p CABG (2022) Hx osteomyelitis Hx CVA Right foot cellulitis, s/p I&D x2 (10/19 and 10/23) Hx osteomyelitis on admission, presents with with pain, redness and swelling after stepping on a nail of a horse last week Foot x-ray showed subcutaneous air, no foreign body Venous u/s: no DVT in lower extremities bilaterally 10/19 - s/p I&D with Dr. Lorenzana Local wound care per surgery: Clean wound, apply Santyl and Vashe Wet-to-dry dressing changes daily Pain control, PT eval 10/20 - IV Vanc/Zosyn switched to IV clindamycin/Cefepime Continue clindamycin/Cefepime for 2 weeks total per ID . End date: ~11/03 Follow blood and wound cultures ID is following 10/21 - R foot erythema, swelling improving. No drainage. 10/22 - no signficant change, continues with moderate pain also reporting pain on buttocks from pressure sore Dr. Lorenzana planning NPO after midnight for possible OR tomorrow 10/23 - s/p I&D R foot wound with Dr. Lorenzana wound care per surgery Continue Clinda/Cefepime for 2 weeks (end date: ~11/03) cultures pending, will confirm with ID if needs IV antibiotics for entire 2 weeks. 10/[address] Pineda input appreciated General consensus is for patient to have IV cefepime and clindamycin on discharge pending deep tissue wound culture Patient to have 6 weeks of IV antibiotics for concern for osteomyelitis and tendinitis PICC line for outpatient antibiotics ordered. Analgesics as needed, titrate [place]. 10/25 Case discussed with infectious disease Dr. Pineda. Patient will discharge with IV clindamycin every 8 hours and IV cefepime twice a day for 6 weeks. PICC line for outpatient antibiotics has been inserted. Analgesics as needed. There was a concern patient may not be able to handle the IV antibiotics at home and the team was contemplating this group home for IV antibiotics. I met with patient's daughter who states she is available, patient who has bilateral BKA can also help. Home antibiotics requested with home health. Patient will discharge home pending antibiotics arrangement. Continue local wound care Constipation Feeling constipated. Hasn't had BM since before surgery. Constipation likely related to pain medication 10/21 - colace BID added, PRN dulcolax Miralax x1 added dilaudid switched to morphine IDDM with neuropathy accu-cheks, SSI confirm home insulin regimen Chronic diastolic CHF Hypertension Hyperlidemia Obstructive sleep apnea Hx CAD with prior PCI s/p CABG (2022) Hx CVA Continue plavix, asa 81mg, flomax, statin, VTE: heparin sq Code: Full Dispo: Home with home health.
[2024-10-26 04:32] LABS: Absolute Basophils 0.1 K/uL (0-0.5); Absolute Eosinophils 0.4 K/uL (0-0.5); Absolute Lymphocytes (CBC) 1.3 K/uL (0.7-4.9); Absolute Monocytes 0.7 K/uL (0.1-1.3); Absolute Neutrophil 5.6 K/uL (1.8-8.0); Basophils % 1.1 % (0-1.3); Eosinophils % 5.4 % (0-4.4); Hematocrit 25.8 % (39.6-49.0); Hemoglobin 8.5 g/dL (13.6-17.9); MCV 75.8 fL (80-100); MPV 7.2 fL (7.6-11.3); Monocytes % 8.3 % (3.3-12.3); Neutrophils % 69.2 % (41.7-73.7); Nucleated Red Blood Cells % 0.1 % (0-0); Platelets 377 thou/uL (152-406); RBC Red Blood Cell Count 3.41 M/uL (4.33-5.43)
[2024-10-26 04:57] LABS: Anion Gap 14.1 mEq/L (5.0-15.0); Potassium 4.1 mEq/L (3.5-5.1)
--- NOTE | 2024-10-26 16:54 | P.DS ---
Admission Date: 10/20/24 Discharge Date: 10/26/24 Disposition: [facility] HOME/HOME HEALTH CARE Discharge Condition: FAIR Reason for Admission: Acute right foot cellulitis with purulent drainage Brief History of Present Illness: 59-year-old male with past medical history of type 1 diabetes mellitus, CAD, osteomyelitis, hypertension, syncope, NSTEMI, CHF, diabetic neuropathy presented to the ER today complaining of worsening pain, redness and swelling of his right foot and states that he stepped on a horseshoe nail. Patient stated he was given tetanus shot by his PCP. On examination in the ER revealed right foot with erythema, edema, with purulent drainage. Patient was hospitalized for further management. Hospital Course: Problem List: Right foot cellulitis, s/p I&D (10/19) Constipation IDDM with neuropathy Chronic diastolic CHF Hypertension Hyperlidemia Obstructive sleep apnea Hx CAD with prior PCI s/p CABG (2022) Hx osteomyelitis Hx CVA Patient presented with with pain, redness and swelling after stepping on a nail of a horse a week prior to presentation Foot x-ray showed subcutaneous air, no foreign body Venous u/s: no DVT in lower extremities bilaterally Patient seen and evaluated by surgery Dr. Lorenzana and I&D done. Dr. Lorenzana reports involvement of tendons. Blood cultures revealed no growth. Wound culture grew Staphylococcus intermedius Patient initially treated with IV vancomycin and Zosyn and changed to IV clindamycin and cefepime. Patient evaluated by infectious disease and 6 weeks of IV antibiotics-IV cefepime and clindamycin recommended. PICC line placed for outpatient IV antibiotics. Antibiotics arranged, patient with stable vitals, patient is deemed stable for discharge. Patient cleared for discharge by surgery Dr. Lorenzana Pain was managed with IV morphine and [place]. Patient was discharged with oral [place]. Patient had constipation which was treated with Colace as needed Dulcolax. Blood sugar was managed with insulin sliding scale and NPH insulin. Patient received half a dose of his home insulin however patient confirmed he gives himself 15 units of NPH insulin twice a day. Home insulin regimen resumed on discharge. Patient prescribed probiotic given the prolonged clindamycin therapy to reduce his risk of C. difficile. Patient voiced understanding that it is important to take a probiotic while on the clindamycin. Vital Signs/Physical Exam: Temp Pulse Resp BP Pulse Ox 98 F 90 22 H 142/64 H 95 10/26/24 08:00 10/26/24 08:00 10/26/24 08:00 10/26/24 08:00 10/26/24 08:00 General: Alert, In no apparent distress, Oriented x3 HEENT: Mucous membr. moist/pink Neck: Supple, JVD not distended Respiratory: Clear to auscultation bilaterally, Normal air movement Cardiovascular: Regular rate/rhythm, Normal S1 S2 Gastrointestinal: Normal bowel sounds, Soft and benign, Non-distended Integumentary: No cyanosis, Other (Right foot in clean dressing) Neurological: Normal speech, Normal strength at 5/5 x4 extr, Cranial nerves 3-12 intact Laboratory Data at Discharge: WBC 8.20 thou/uL (4.3-10.9) 10/26/24 04:20 Hgb 8.5 g/dL (13.6-17.9) L 10/26/24 04:20 Hct 25.8 % (39.6-49.0) L 10/26/24 04:20 Plt Count 377 thou/uL (152-406) 10/26/24 04:20 PT 13.8 SECONDS (10-13.0) H 10/18/24 23:35 INR 1.22 10/18/24 23:35 APTT 29.5 SECONDS (27.2-37.4) 10/18/24 23:35 Sodium 138 mEq/L (136-145) 10/26/24 04:20 Potassium 4.1 mEq/L (3.5-5.1) 10/26/24 04:20 BUN 10 mg/dL (7-18) 10/26/24 04:20 Creatinine 0.99 mg/dL (0.70-1.30) 10/26/24 04:20 Glucose 187 mg/dL (74-106) H 10/26/24 04:20 Magnesium 1.9 mg/dL (1.6-2.4) 10/23/24 06:27 Total Bilirubin 0.8 mg/dL (0.2-1.0) 10/20/24 07:08 AST 23 U/L (15-37) 10/20/24 07:08 ALT 44 U/L (16-61) 10/20/24 07:08 Alkaline Phosphatase 200 U/L (45-117) H 10/20/24 07:08 Home Medications: Atorvastatin Calcium [Lipitor] 80 mg PO BEDTIME 11/20/23 Clopidogrel Bisulfate [Plavix*] 75 mg PO DAILY 11/20/23 Aspirin [Aspirin EC 81 MG] 81 mg PO DAILY 30 Days #30 tab 12/05/23 Escitalopram [Lexapro*] 20 mg PO DAILY 03/26/24 Gabapentin 800 mg PO BID 03/26/24 Insulin NPH Hum/Reg Insulin Hm [Humulin 70-30 Vial] 43 unit SQ BID 03/26/24 Insulin Regular, Human [Humulin R U-500 Kwikpen] See Protocol SQ TID 03/26/24 Tamsulosin [Flomax*] 0.4 mg PO DAILY 03/26/24 buPROPion HCL [Bupropion Xl] 300 mg PO DAILY 03/26/24 Furosemide 80 mg PO BID 09/25/24 Acidophilus/Bulgaricus [Lactinex Tablet Chewable] 1 each PO TID #126 tab.chew 10/26/24 Benzonatate [Tessalon Perle*] 100 mg PO TID PRN #30 cap 10/26/24 Bisacodyl [Dulcolax*] 10 mg PA DAILY PRN #30 supp 10/26/24 Collagenase [Santyl Ointment*] 1 appl TOP DAILY #30 gm 10/26/24 Docusate [Colace Cap*] 100 mg PO BID #60 cap 10/26/24 Hydrocodone 10/APAP 325 [[place] 10/325*] 1 tab PO Q4H PRN #20 tab 10/26/24 Mupirocin Calcium [Bactroban Nasal*] 1 appl RANDY BID #22 g 10/26/24 New Medications: Mupirocin Calcium [Bactroban Nasal*] 1 appl RANDY BID #22 g Docusate [Colace Cap*] 100 mg PO BID #60 cap Bisacodyl [Dulcolax*] 10 mg PA DAILY PRN #30 supp PRN Reason: Constipation Acidophilus/Bulgar[place] [Lactinex Tablet Chewable] 1 each PO TID #126 tab.chew Hydrocodone 10/APAP 325 [[place] 10/325*] 1 tab PO Q4H PRN #20 tab PRN Reason: Pain Scale 5-7 (Moderate) Collagenase [Santyl Ointment*] 1 appl TOP DAILY #30 gm Benzonatate [Tessalon Perle*] 100 mg PO TID PRN #30 cap PRN Reason: Cough Physician Discharge Instructions: Patient presented with with pain, redness and swelling after stepping on a nail of a horse a week prior to presentation Foot x-ray showed subcutaneous air, no foreign body Venous u/s: no DVT in lower extremities bilaterally Patient seen and evaluated by surgery Dr. Lorenzana and I&D done. Dr. Lorenzana reports involvement of tendons. Blood cultures revealed no growth. Wound culture grew Staphylococcus intermedius Patient initially treated with IV vancomycin and Zosyn and changed to IV clindamycin and cefepime. Patient evaluated by infectious disease and 6 weeks of IV antibiotics-IV cefepime and clindamycin recommended. PICC line placed for outpatient IV antibiotics. Antibiotics arranged, patient with stable vitals, patient is deemed stable for discharge. Patient cleared for discharge by surgery Dr. Lorenzana Pain was managed with IV morphine and [place]. Patient was discharged with oral [place]. Patient had constipation which was treated with Colace as needed Dulcolax. Blood sugar was managed with insulin sliding scale and NPH insulin. Patient received half a dose of his home insulin however patient confirmed he gives himself 15 units of NPH insulin twice a day. Home insulin regimen resumed on discharge. Patient prescribed probiotic given the prolonged clindamycin therapy to reduce his risk of C. difficile. Patient voiced understanding that it is important to take a probiotic while on the clindamycin. Patient needs blood work at least once a week while on IV antibiotics. Blood work needs to be followed by patient's PCP for antibiotic dose changes. Wound care: Clean wound, apply Santyl and Vashe Wet-to-dry dressing changes daily Home health to assist with wound care if possible Follow-up wound healing center in Dr. Lorenzana's clinic after discharge. Diet: ADA Activity: Ad evelin Followup: Adri Antonio MD [Primary Care Provider] - 1-2 Weeks Time spent managing pt's care (in minutes): 40
[2024-10-26 17:08] VITALS: BP 151/67; TEMP 98.1
--- NOTE | 2024-10-26 21:03 | PN ---
Subjective: The patient is lying in bed. No new acute event. Plan to discharge today, has PICC indira e in place and working well. Objective: Vital Signs: Reviewed. Lungs: Basal crackles. Heart: S1, S2. Regular. Abdomen: Soft, nontender. Bowel sounds present. Extremities: Right foot wound noted. Laboratory Data: Reviewed. Assessment And Plan: Right lower extremity cellulitis and foot wound. Continue antibiotic and suppo rtive care. Wound care as per surgical team. We will follow the patient as needed. NF/MODL Voice ID: [id number] Report ID: [id number]
== END 2024-10-26 17:15 | disposition home health service (06) | DRG 570 ==
LOC: ER 23:09 → ERHOLD 10-19 01:34 → 2ND 10-19 12:12 → OBSVTOIN 10-20 08:38
PROVIDERS: ADMIT Family Medicine; ATTEND Internal Medicine
PROC: 0JBQ0ZZ Excision of Right Foot Subcutaneous Tissue and Fascia, Open Approach (ICD-10-PCS; principal; 2024-10-19 15:00)
PROC: 0JBQ0ZZ Excision of Right Foot Subcutaneous Tissue and Fascia, Open Approach (ICD-10-PCS; 2024-10-23)
PROC: 02HV33Z Insertion of Infusion Device into Superior Vena Cava, Percutaneous Approach (ICD-10-PCS; 2024-10-24)
DX: L03.115 Cellulitis of right lower limb (principal); A48.0 Gas gangrene; I13.0 Hypertensive heart and chronic kidney disease with heart failure and stage 1 through stage 4 chronic kidney disease, or unspecified chronic kidney disease; N17.9 Acute kidney failure, unspecified; I50.32 Chronic diastolic (congestive) heart failure; E11.52 Type 2 diabetes mellitus with diabetic peripheral angiopathy with gangrene; L02.611 Cutaneous abscess of right foot; E44.0 Moderate protein-calorie malnutrition; N18.31 Chronic kidney disease, stage 3a; E11.22 Type 2 diabetes mellitus with diabetic chronic kidney disease; E11.40 Type 2 diabetes mellitus with diabetic neuropathy, unspecified; E11.649 Type 2 diabetes mellitus with hypoglycemia without coma; E11.65 Type 2 diabetes mellitus with hyperglycemia; E11.621 Type 2 diabetes mellitus with foot ulcer; L97.519 Non-pressure chronic ulcer of other part of right foot with unspecified severity; D63.1 Anemia in chronic kidney disease; K21.9 Gastro-esophageal reflux disease without esophagitis; E78.00 Pure hypercholesterolemia, unspecified; K59.03 Drug induced constipation; G47.33 Obstructive sleep apnea (adult) (pediatric); T40.605A Adverse effect of unspecified narcotics, initial encounter; N40.0 Benign prostatic hyperplasia without lower urinary tract symptoms; I25.10 Atherosclerotic heart disease of native coronary artery without angina pectoris; I25.2 Old myocardial infarction; B95.7 Other staphylococcus as the cause of diseases classified elsewhere; Z95.1 Presence of aortocoronary bypass graft; Z95.5 Presence of coronary angioplasty implant and graft; Z79.02 Long term (current) use of antithrombotics/antiplatelets; Z79.82 Long term (current) use of aspirin; Z79.4 Long term (current) use of insulin; Z68.33 Body mass index [BMI] 33.0-33.9, adult; Z86.73 Personal history of transient ischemic attack (TIA), and cerebral infarction without residual deficits; Z79.899 Other long term (current) drug therapy
CPT/HCPCS: 36415; 36569; 71045; 80048; 80053; 82947; 83605; 83735; 83880; 85025; 85610; 85730; 86140; 87040; 87070; 87075; 87077; 87176; 87186; 87205; 88304; 93005; 93970; 94010; 96365; 96366; 96368; 96375; 97110; 97116; 97161; 97530; 99285; G0378; J0360; J0692; J1171; J1644; J1815; J2003; J2250; J2270; J2405; J2543; J2704; J3010; J3370; J3590; J7030; J7040; J7042; J7050

== ENCOUNTER 2024-10-29 23:21 | Emergency (ER) | payer OTHER ==
--- NOTE | 2024-10-30 00:20 | EDPHYS ---
Physician Documentation [facility] Name: Tripp Webstre Age: 59 yrs Sex: Male : 1965 Arrival Date: 10/29/2024 Time: 23:21 Bed 4 Private MD: ED Physician Umer Florentino HPI: 10/30 02:59 This 59 yrs old Male presents to ER via Ambulatory with complaints of Picc line rt problem, foot problem. 04:56 Patient presents to the ED requesting change of his PICC line dressing. He had a recent rt admission for a foot wound which was debrided, sent to wound care and got put on antibiotics via PICC line. Patient states that actually spilled animal geneticist fluid onto the bandage causing it to become irritated. Also request that his foot wound be looked at and redressed but denies any specific complaints associated with that. Symptoms are mild in severity, no other aggravating alleviating factors.. Historical: - Allergies: 10/29 23:44 No Known Allergies; vc1 - PMHx: 23:44 BPH; CAD; depressive disorder; Diabetes - IDDM; GERD; Hypercholesterolemia; vc1 Hypercholesterolemia; Hypertension; Myocardial infarction; neuropathy; - PSHx: 23:44 cardiac stents; Coronary artery bypass graft; toe amputation; vc1 - Immunization history:: Adult Immunizations up to date. - Infectious Disease History:: Denies. - Social history:: Smoking status: Patient denies any tobacco usage or history of. - Family history:: not pertinent. ROS: 10/30 04:56 Constitutional: Negative for fever, chills, and weight loss, Cardiovascular: Negative rt for chest pain, palpitations, and edema, Respiratory: Negative for shortness of breath, cough, wheezing, and pleuritic chest pain, Abdomen/GI: Negative for abdominal pain, nausea, vomiting, diarrhea, and constipation, Neuro: Negative for headache, weakness, numbness, tingling, and seizure, Exam: 04:56 Musculoskeletal/extremity: The PICC line dressing to the right upper extremity smells rt of animal geneticist fluid, appears to be peeling up. The skin surrounding the insertion site is clean, no surrounding erythema, no purulence. The wound to the left foot between the 1st and 2nd toes appears to be healing appropriately, no signs of infection, no purulence.. 04:56 Constitutional: This is a well developed, well nourished patient who is awake, alert, rt and in no acute distress. Head/Face: Normocephalic, atraumatic. Chest/axilla: Normal chest wall appearance and motion. Nontender with no deformity. No lesions are appreciated. Cardiovascular: Regular rate and rhythm with a normal S1 and S2. No gallops, murmurs, or rubs. Normal PMI, no JVD. No pulse deficits. Respiratory: Lungs have equal breath sounds bilaterally, clear to auscultation and percussion. No rales, rhonchi or wheezes noted. No increased work of breathing, no retractions or nasal flaring. Abdomen/GI: Soft, non-tender, with normal bowel sounds. No distension or tympany. No guarding or rebound. No evidence of tenderness throughout. Vital Signs: 10/29 23:41 Weight 108.86 kg; Height 5 ft. 11 in. ; Pain 8/10; vc1 23:45 BP 125 / 69; Pulse 84; Resp 16; Temp 97.9; Pulse Ox 95% ; vc1 23:41 Body Mass Index 33.47 (108.86 kg, 180.34 cm) vc1 23:41 Pain Scale: Adult vc1 MDM: 23:59 Medical Screening Exam initiated rt 10/30 04:56 Differential Diagnosis PICC line dressing, chronic wound. Data reviewed: vital signs, rt nurses notes. Test considered but Not performed: Other Details Stable vital signs, wound appears to be healing appropriately, no signs of infection, do not believe that labs are indicated.. Care significantly affected by the following chronic conditions: Diabetes. Counseling: I had a detailed discussion with the patient and/or guardian regarding the historical points, exam findings, and any diagnostic results supporting the discharge/admit diagnosis, the need for outpatient follow up. 10/30 00:10 Order name: Dressing - Wound; Complete Time: 00:17 rt 10/30 00:10 Order name: Misc. Order: Change PICC line dressing; Complete Time: 00:17 rt Administered Medications: No medications were administered Disposition Summary: 10/30/24 00:19 Discharge Ordered Notes: Location: Home rt Problem: an ongoing problem rt Symptoms: have improved rt Condition: Stable rt Diagnosis - Encounter for care of PICC line rt Followup: rt - With: Ulisses Lorenzana MD - When: 2 - 3 days - Reason: Discharge Instructions: - Discharge Summary Sheet rt - PICC Home Care Guide rt Forms: - Medication Reconciliation Form rt - Antibiotic Education rt - Prescription Opioid Use rt - Patient Portal Instructions rt - Leadership Thank You Letter rt Signatures: Kaycee Pan RN RN vc1 Umer Florentino MD MD rt
--- NOTE | 2024-10-30 00:20 | ER ---
Nurse's Notes [facility] Name: Tripp Webster Age: 59 yrs Sex: Male : 1965 Arrival Date: 10/29/2024 Time: 23:21 Bed 4 Private MD: Diagnosis: Encounter for care of PICC line Presentation: 10/29 23:41 Chief complaint: Patient states: need dressing changed and PICC line looked at, need vc1 wound on right foot looked at. Coronavirus screen: Client denies travel out of the [place] in the last 14 days. At this time, the client does not indicate any symptoms associated with coronavirus-19. Ebola Screen: Patient negative for fever greater than or equal to 101.5 degrees Fahrenheit, and additional compatible Ebola Virus Disease symptoms Patient denies exposure to infectious person. Patient denies travel to an Ebola-affected area in the 21 days before illness onset. No symptoms or risks identified at this time. Initial Sepsis Screen: Does the patient meet any 2 criteria? No. Patient's initial sepsis screen is negative. Does the patient have a suspected source of infection? No. Patient's initial sepsis screen is negative. Risk Assessment: Do you want to hurt yourself or someone else? Patient reports no desire to harm self or others. Onset of symptoms was October 29, 2024. Care prior to arrival: None. Activity prior to arrival: None. 23:41 Method Of Arrival: Ambulatory vc1 23:41 Acuity: MIRIAM 4 vc1 Triage Assessment: 10/30 00:21 General: Appears in no apparent distress. comfortable, well groomed, well nourished, hm5 Behavior is calm, cooperative, appropriate for age. Pain: Denies pain. Historical: - Allergies: 10/29 23:44 No Known Allergies; vc1 - PMHx: 23:44 BPH; CAD; depressive disorder; Diabetes - IDDM; GERD; Hypercholesterolemia; vc1 Hypercholesterolemia; Hypertension; Myocardial infarction; neuropathy; - PSHx: 23:44 cardiac stents; Coronary artery bypass graft; toe amputation; vc1 - Immunization history:: Adult Immunizations up to date. - Infectious Disease History:: Denies. - Social history:: Smoking status: Patient denies any tobacco usage or history of. - Family history:: not pertinent. Screenin:46 [facility] ED Fall Risk Assessment (Adult) History of falling in the last 3 months, vc1 including since admission No falls in past 3 months (0 pts) Confusion or Disorientation No (0 pts) Intoxicated or Sedated No (0 pts) Impaired Gait Yes (1 pt) Mobility Assist Device Used No (0 pt) Altered Elimination No (0 pt) Score/Fall Risk Level 0 - 2 = Low Risk Oriented to surroundings, Maintained a safe environment, Educated pt \T\ family on fall prevention, incl call for assistance when getting out of bed, Hourly rounding (assess needs \T\ fall precautionary measures) done. Abuse screen: Denies threats or abuse. Nutritional screening: No deficits noted. Tuberculosis screening: No symptoms or risk factors identified. Assessment: 10/30 00:21 General: Appears in no apparent distress. comfortable, well groomed, well nourished, hm5 Behavior is calm, cooperative, appropriate for age. Pain: Denies pain. Neuro: No deficits noted. Cardiovascular: No deficits noted. Respiratory: No deficits noted. GI: No deficits noted. No signs and/or symptoms were reported involving the gastrointestinal system. : No deficits noted. No signs and/or symptoms were reported regarding the genitourinary system. EENT: No deficits noted. No signs and/or symptoms were reported regarding the EENT system. Derm: No deficits noted. No signs and/or symptoms reported regarding the dermatologic system. Derm: Derm: Wound noted ball of right foot Wound is clean, re-dressed. Musculoskeletal: No deficits noted. No signs and/or symptoms reported regarding the musculoskeletal system. 00:26 Reassessment: PICC dressing to rt arm cleansed and changed following sterile technique. 5 Vital Signs: 10/29 23:41 Weight 108.86 kg; Height 5 ft. 11 in. ; Pain 8/10; vc1 23:45 BP 125 / 69; Pulse 84; Resp 16; Temp 97.9; Pulse Ox 95% ; vc1 23:41 Body Mass Index 33.47 (108.86 kg, 180.34 cm) vc1 23:41 Pain Scale: Adult vc1 ED Course: 23:23 Patient arrived in ED. mr 23:28 Umer Florentino MD is Attending Physician. rt 23:44 Triage completed. vc1 23:44 Arm band placed on right wrist. vc1 23:47 Patient has correct armband on for positive identification. Provided Education on: Plan vc1 of care. 23:59 Umer Florentino MD is Attending Physician. rt 10/30 00:19 Ulisses Lorenzana MD is Referral Physician. rt 00:20 Lizette Mitchell, RN is Primary Nurse. 5 00:21 No provider procedures requiring assistance completed. hm5 Administered Medications: No medications were administered Medication: 10/29 23:47 VIS not applicable for this client. vc1 Outcome: 10/30 00:19 Discharge ordered by . rt 00:27 Condition: stable hm5 00:28 Discharged to home ambulatory, jb4 00:28 Condition: stable 00:28 Discharge instructions given to patient, Instructed on discharge instructions, follow up and referral plans. Demonstrated understanding of instructions, follow-up care, 00:28 Patient left the ED. jb4 Signatures: Toma White, Reg Reg mr BermudezChilango, RN RN jb4 Kaycee Pan RN RN vc1 Umer Florentino MD MD rt Lizette Mitchell, RN RN 5
[2024-10-30 01:31] VITALS: BP 125/69; TEMP 97.9; O2SAT 95
== END 2024-10-30 00:28 | disposition home or self-care (01) ==
LOC: ER 23:21
DX: Z45.2 Encounter for adjustment and management of vascular access device (principal)
CPT/HCPCS: 99282

== ENCOUNTER 2024-11-05 21:21 | Emergency (ER) | payer OTHER ==
[2024-11-05 21:45] LABS: Absolute Basophils 0.1 K/uL (0-0.5); Absolute Eosinophils 0.3 K/uL (0-0.5); Absolute Monocytes 0.8 K/uL (0.1-1.3); Absolute Neutrophil 5.6 K/uL (1.8-8.0); Basophils % 1.3 % (0-1.3); Eosinophils % 3.9 % (0-4.4); Hematocrit 30.1 % (39.6-49.0); Hemoglobin 9.6 g/dL (13.6-17.9); Lymphocytes % 13.2 % (15.3-44.8); MCH 23.9 pg (27.0-35.0); MCHC 31.8 g/dL (32.0-36.0); MCV 75.2 fL (80-100); MPV 7.7 fL (7.6-11.3); Monocytes % 9.8 % (3.3-12.3); Neutrophils % 71.8 % (41.7-73.7); Nucleated Red Blood Cells % 0.2 % (0-0); Platelets 433 thou/uL (152-406); RBC Red Blood Cell Count 4.01 M/uL (4.33-5.43); Red Cell Distribution Width 18.4 % (12.1-15.2)
[2024-11-05] MEDS ORDERED: ONDANSETRON 4 MG/2 ML VIAL ONE (21:45)
[2024-11-05] MEDS ORDERED: PHENOBARBITAL 30 MG TABLET PO ONE (21:45)
[2024-11-05] MEDS ORDERED: DIPHENOX/ATROP SULF 1 TAB PO ONE (21:46)
[2024-11-05] MEDS ORDERED: HYDROCODONE/APAP 5/325 MG TAB ONE (21:46)
[2024-11-05] MEDS ORDERED: DICYCLOMINE HCL 10 MG CAP ONE (21:46)
[2024-11-05] MEDS ORDERED: NA CHLORIDE 0.9% 500 ML ONE (21:47)
[2024-11-05] MEDS ORDERED: FAMOTIDINE 20 MG/2 ML VIAL IV ONE (21:47)
[2024-11-05 22:05] LABS: Albumin 2.8 g/dL (3.4-5.0); Albumin/Globulin Ratio 0.5 (1.1-1.8); Anion Gap 10.9 mEq/L (5.0-15.0); Bilirubin Total 0.8 mg/dL (0.2-1.0); Globulin 5.4 g/dL (2.3-3.5); Potassium 4.9 mEq/L (3.5-5.1); Protein, Total 8.2 g/dL (6.4-8.2)
[2024-11-05] MEDS ORDERED: HYDROCODONE/APAP 10/325 TAB ONE (22:32)
[2024-11-05] MEDS ORDERED: DIAZEPAM 5 MG TABLET ONE (22:32)
--- NOTE | 2024-11-05 23:41 | EDPHYS ---
Physician Documentation [facility] Name: Tripp Webster Age: 59 yrs Sex: Male : 1965 Arrival Date: 11/05/2024 Time: 21:21 Bed 2 Private MD: ED Physician Kenn Yap HPI: 11/05 21:25 This 59 yrs old Male presents to ER via Unassigned with complaints of Edema. sp4 23:45 59-year-old male with history of BPH, coronary artery disease, depression, diabetes, sp4 GERD, hypercholesterolemia, DC, and recent right foot cellulitis with operative debridement presents with complaint of nausea vomiting diarrhea bilateral lower foot swelling. Patient complains of significant generalized pain request morphine IV. 23:46 Associated complaints include shortness of breath and bilateral lower extremity sp4 cramping.. Historical: - Allergies: 22:00 No Known Allergies; km10 - PMHx: 22:00 BPH; CAD; depressive disorder; Diabetes - IDDM; GERD; Hypercholesterolemia; Myocardial km10 infarction; Hypertension; neuropathy; - PSHx: 22:00 cardiac stents; Coronary artery bypass graft; toe amputation; km10 - Immunization history:: Adult Immunizations up to date. - Infectious Disease History:: Denies. - Family history:: not pertinent. - Social history:: Smoking status: unknown. ROS: 23:46 Constitutional: Negative for fever, chills, and weight loss, positive bilateral lower sp4 extremity cramping, positive bilateral lower extremity edema, positive bilateral shortness of breath, positive nausea vomiting and diarrhea. 23:46 All other systems are negative, Exam: 23:46 Constitutional: This is a well developed, well nourished patient who is awake, alert, sp4 and in no acute distress. Head/Face: Normocephalic, atraumatic. Eyes: Pupils equal round and reactive to light, extra-ocular motions intact. Lids and lashes normal. Conjunctiva and sclera are not injected. Cornea within normal limits. Periorbital areas with no swelling, redness, or edema. ENT: Nares patent. No nasal discharge, no septal abnormalities noted. Tympanic membranes are normal and external auditory canals are clear. Oropharynx with no redness, swelling, or masses, exudates, or evidence of obstruction, uvula midline. Mucous membranes moist. Neck: Trachea midline, no thyromegaly or masses palpated, and no cervical lymphadenopathy. Supple, full range of motion without nuchal rigidity, or vertebral point tenderness. Chest/axilla: Normal chest wall appearance and motion. Nontender with no deformity. No lesions are appreciated. Cardiovascular: Regular rate and rhythm with a normal S1 and S2. No gallops, murmurs, or rubs. Normal PMI, no JVD. No pulse deficits. Respiratory: Lungs have equal breath sounds bilaterally, clear to auscultation and percussion. No rales, rhonchi or wheezes noted. No increased work of breathing, no retractions or nasal flaring. Abdomen/GI: Soft, with normal bowel sounds. No distension or tympany. No guarding or rebound. No evidence of tenderness throughout. Back: No spinal tenderness. No costovertebral tenderness. Skin: Warm, dry with normal turgor. Normal color with no rashes, no lesions, and no evidence of cellulitis. MS/ Extremity: Pulses equal, no cyanosis. Neurovascular intact. Full, normal range of motion. Neuro: Awake and alert, GCS 15, oriented to person, place, time, and situation. Cranial nerves II-XII grossly intact. Motor strength 5/5 in all extremities. Sensory grossly intact. Psych: Awake, alert, with orientation to person, place and time. Behavior, mood, and affect are within normal limits Vital Signs: 21:15 BP 103 / 79; Pulse 79; Resp 22; Temp 97.8; Pulse Ox 90% on R/A; Weight 108.86 kg; km10 Height 5 ft. 11 in. ; 22:04 BP 187 / 92; Pulse 123; Resp 22; Pulse Ox 91% on 0.5 lpm NC; km10 22:46 BP 167 / 81; Pulse 111; Resp 20; Temp 97.8; Pulse Ox 95% ; Pain 5/10; bm8 23:49 BP 167 / 81; Pulse 115; Resp 18; Pulse Ox 95% on R/A; tb4 21:15 Body Mass Index 33.47 (108.86 kg, 180.34 cm) km10 22:46 Pain Scale: Adult bm8 [place] Coma Score: 22:46 Eye Response: spontaneous(4). Motor Response: obeys commands(6). Verbal Response: bm8 oriented(5). Total: 15. 23:46 Eye Response: spontaneous(4). Motor Response: obeys commands(6). Verbal Response: sp4 oriented(5). Total: 15. MDM: 21:32 Medical Screening Exam initiated sp4 23:41 ED course: Patient complaint of generalized discontent and upset feelings and reported sp4 that he would like to be released. Patient did not get his insulin for hyperglycemia. Patient at this time has stable vital signs he was provided informed discharge.. 23:47 Differential Diagnosis altered mental status, sepsis, flu, CHF,. Data reviewed: vital sp4 signs, nurses notes, diagnostic data from outside facility, old medical records, lab test result(s). Consideration of Admission/Observation Escalation of care including admission/observation considered. ED course: Patient primary complaint is nausea vomiting and diarrhea.. Also complains of edema and bilateral lower extremity cramping. Patient was in a process for workup for the above complaints. Patient was given hydrocodone for pain and also Lomotil for diarrhea. Given dicyclomine for crampy pain. Phenobarbital for crampy pain. Patient then developed generalized discomfort and also became angry and irritable. Reported that he would like to be released home. Patient was provided informed discharge at this time. Vital signs are stable. Stable for discharge via informed discharge. 11/05 21:31 Order name: CBC with Diff; Complete Time: 22:31 sp4 11/05 21:31 Order name: CMP; Complete Time: 22:31 sp4 11/05 21:31 Order name: Lipase; Complete Time: 22:31 sp4 11/05 21:31 Order name: IV Saline Lock; Complete Time: 21:41 sp4 11/05 21:31 Order name: Labs collected and sent; Complete Time: 21:41 sp4 Administered Medications: 21:56 Drug: Famotidine IVP 20 mg IVP once; dilute with 10 mL 0.9% NaCl; give over 2 minutes km10 Route: IVP; Site: left forearm; 22:49 Follow up: Response: No adverse reaction bm8 23:47 Follow up: Response: No adverse reaction tb4 21:56 Drug: Ondansetron IVP 8 mg IVP once; over 2 minutes Route: IVP; Site: left forearm; km10 23:47 Follow up: Response: No adverse reaction tb4 21:56 Drug: HYDROcodone-acetaminophen PO 5 mg-325 mg 2 tabs PO once Route: PO; km10 22:49 Follow up: Response: No adverse reaction bm8 21:56 Drug: Dicyclomine PO 20 mg PO once Route: PO; km10 22:49 Follow up: Response: No adverse reaction bm8 21:56 Drug: Diphenoxylate-Atropine PO 2 tabs PO once Route: PO; km10 22:49 Follow up: Response: No adverse reaction bm8 21:56 Drug: PHENobarbital PO 90 mg PO once Route: PO; km10 22:49 Follow up: Response: No adverse reaction bm8 21:56 Drug: NS 0.9% IV 500 ml 500 ml IV at 1 bolus once; to be given as a bolus over 30 km10 minutes Volume: 500 ml; Route: IV; Rate: 1 bolus; Site: left forearm; 22:48 Follow up: Response: No adverse reaction; IV Status: Completed infusion bm8 22:39 Drug: Diazepam PO 5 mg PO once Route: PO; bm8 22:48 Follow up: Response: No adverse reaction bm8 22:39 Drug: [place] PO 10 mg-325 mg 1 tabs PO once Route: PO; bm8 22:48 Follow up: Response: No adverse reaction bm8 23:47 Not Given (Patient Refused): insulin regular human5 units IVP once tb4 Disposition Summary: 11/05/24 23:40 Discharge Ordered Notes: Location: Home sp4 Problem: new sp4 Symptoms: have improved sp4 Condition: Stable sp4 Diagnosis - Bilateral lower extremity edema, postoperative right foot pain, generalized sp4 discontent, nausea vomiting and diarrhea. Acute gastroenteritis Followup: sp4 - With: Private Physician - When: 7 - 10 days - Reason: Recheck today's complaints Followup: sp4 - With: Ulisses Lorenzana MD - When: 7 - 10 days - Reason: Recheck today's complaints Discharge Instructions: - Discharge Summary Sheet sp4 - Viral Gastroenteritis, Adult, [id number]-[id number] sp4 Forms: - Patient Portal Instructions sp4 Signatures: Dispatcher [employer] Kenn Kingston MD MD sp4 Danyel Henning RN RN bm8 Lashae Rodriguez RN RN km10 Bobbi Torres RN RN tb4 Corrections: (The following items were deleted from the chart) 21:32 21:32 CBC+H.LAB.BRZ ordered. EDMS EDMS 21:32 21:32 COMPREHENSIVE METABOLIC PANEL+C.LAB.BRZ ordered. EDMS EDMS 21:32 21:32 LIPASE+C.LAB.BRZ ordered. EDMS EDMS
--- NOTE | 2024-11-05 23:41 | ER ---
Nurse's Notes [facility] Name: Tripp Webster Age: 59 yrs Sex: Male : 1965 Arrival Date: 11/05/2024 Time: 21:21 Bed 2 Private MD: Diagnosis: Bilateral lower extremity edema, postoperative right foot pain, generalized discontent, nausea vomiting and diarrhea. Acute gastroenteritis Presentation: 11/05 21:15 Chief complaint: Patient states: C/o bilateral leg cramps since yesterday evening, km10 "Always short of breath but gradually getting worse". 21:15 Coronavirus screen: At this time, the client does not indicate any symptoms associated km10 with coronavirus-19. Ebola Screen: No symptoms or risks identified at this time. Initial Sepsis Screen: Does the patient meet any 2 criteria? No. Patient's initial sepsis screen is negative. Does the patient have a suspected source of infection? No. Patient's initial sepsis screen is negative. Risk Assessment: Do you want to hurt yourself or someone else? Patient reports no desire to harm self or others. Onset of symptoms was November 04, 2024. 21:15 Method Of Arrival: EMS km10 21:15 Acuity: MIRIAM 3 km10 Triage Assessment: 21:15 General: Appears uncomfortable, Behavior is cooperative. Pain: Complains of pain in km10 right leg and left leg Quality of pain is described as crampy. Neuro: Level of Consciousness is awake, alert, Oriented to person, place, time, situation. Cardiovascular: Reports nausea, shortness of breath. 21:15 Respiratory: Airway is patent Respiratory effort is labored, the patient has moderate km10 shortness of breath. GI: Abdomen is round. Historical: - Allergies: 22:00 No Known Allergies; km10 - PMHx: 22:00 BPH; CAD; depressive disorder; Diabetes - IDDM; GERD; Hypercholesterolemia; Myocardial km10 infarction; Hypertension; neuropathy; - PSHx: 22:00 cardiac stents; Coronary artery bypass graft; toe amputation; km10 - Immunization history:: Adult Immunizations up to date. - Infectious Disease History:: Denies. - Family history:: not pertinent. - Social history:: Smoking status: unknown. Screenin:05 Abuse screen: Denies threats or abuse. Denies injuries from another. Nutritional km10 screening: No deficits noted. 22:46 [facility] ED Fall Risk Assessment (Adult) History of falling in the last 3 months, bm8 including since admission No falls in past 3 months (0 pts) Confusion or Disorientation No (0 pts) Intoxicated or Sedated No (0 pts) Impaired Gait No (0 pts) Mobility Assist Device Used No (0 pt) Altered Elimination No (0 pt) Score/Fall Risk Level 0 - 2 = Low Risk Oriented to surroundings, Maintained a safe environment, Educated pt \\T\\ family on fall prevention, incl call for assistance when getting out of bed, Assessed \\T\\ reinforced patient's understanding of fall precautions, Hourly rounding (assess needs \\T\\ fall precautionary measures) done, Used ambulatory aids as needed (educated on \\T\\ assisted with), Used gait belt as appropriate. Tuberculosis screening: No symptoms or risk factors identified. Assessment: 22:46 Reassessment: Patient appears in no apparent distress at this time. No changes from bm8 previously documented assessment. Patient is alert, oriented x 3, equal unlabored respirations, skin warm/dry/pink. 23:38 Reassessment: Patient became agitated and hostile began to pull off cardiac lead and tb4 wire, refuse to have last vitals taken, got dressed on his own, request to have his IV taken out and stated "I am out of here".. Vital Signs: 21:15 BP 103 / 79; Pulse 79; Resp 22; Temp 97.8; Pulse Ox 90% on R/A; Weight 108.86 kg; km10 Height 5 ft. 11 in. ; 22:04 BP 187 / 92; Pulse 123; Resp 22; Pulse Ox 91% on 0.5 lpm NC; km10 22:46 BP 167 / 81; Pulse 111; Resp 20; Temp 97.8; Pulse Ox 95% ; Pain 5/10; bm8 23:49 BP 167 / 81; Pulse 115; Resp 18; Pulse Ox 95% on R/A; tb4 21:15 Body Mass Index 33.47 (108.86 kg, 180.34 cm) km10 22:46 Pain Scale: Adult bm8 [place] Coma Score: 22:46 Eye Response: spontaneous(4). Motor Response: obeys commands(6). Verbal Response: bm8 oriented(5). Total: 15. 23:46 Eye Response: spontaneous(4). Motor Response: obeys commands(6). Verbal Response: sp4 oriented(5). Total: 15. ED Course: 21:21 Patient arrived in ED. jj6 21:25 Kenn Yap MD is Attending Physician. sp4 21:40 Lashae Rodriguez, KAMILLA is Primary Nurse. km10 21:59 Triage completed. km10 22:04 Patient has correct armband on for positive identification. Bed in low position. Call km10 light in reach. Side rails up X2. Provided Education on: plan of care. Client placed on continuous cardiac and pulse oximetry monitoring. NIBP monitoring applied. monitor worker on. Door closed. Noise minimized. Warm blanket given. Pillow given. Head of bed elevated. 22:46 No provider procedures requiring assistance completed. Oxygen administration via nasal bm8 cannula \\T\\ 2L/min. 22:48 Inserted saline lock: 20 gauge in left forearm, using aseptic technique. Blood bm8 collected. Flushed with 10 mL NS. 23:39 Ulisses Lorenzana MD is Referral Physician. sp4 23:44 IV discontinued, intact, No redness/swelling at site. Pressure dressing applied, tb4 Patient allowed nurse to remove IV. Pressure dressing applied. 23:46 Arm band placed on right wrist. tb4 Administered Medications: 21:56 Drug: Famotidine IVP 20 mg IVP once; dilute with 10 mL 0.9% NaCl; give over 2 minutes km10 Route: IVP; Site: left forearm; 22:49 Follow up: Response: No adverse reaction bm8 23:47 Follow up: Response: No adverse reaction tb4 21:56 Drug: Ondansetron IVP 8 mg IVP once; over 2 minutes Route: IVP; Site: left forearm; km10 23:47 Follow up: Response: No adverse reaction tb4 21:56 Drug: HYDROcodone-acetaminophen PO 5 mg-325 mg 2 tabs PO once Route: PO; km10 22:49 Follow up: Response: No adverse reaction bm8 21:56 Drug: Dicyclomine PO 20 mg PO once Route: PO; km10 22:49 Follow up: Response: No adverse reaction bm8 21:56 Drug: Diphenoxylate-Atropine PO 2 tabs PO once Route: PO; km10 22:49 Follow up: Response: No adverse reaction bm8 21:56 Drug: PHENobarbital PO 90 mg PO once Route: PO; km10 22:49 Follow up: Response: No adverse reaction bm8 21:56 Drug: NS 0.9% IV 500 ml 500 ml IV at 1 bolus once; to be given as a bolus over 30 km10 minutes Volume: 500 ml; Route: IV; Rate: 1 bolus; Site: left forearm; 22:48 Follow up: Response: No adverse reaction; IV Status: Completed infusion bm8 22:39 Drug: Diazepam PO 5 mg PO once Route: PO; bm8 22:48 Follow up: Response: No adverse reaction bm8 22:39 Drug: [place] PO 10 mg-325 mg 1 tabs PO once Route: PO; bm8 22:48 Follow up: Response: No adverse reaction bm8 23:47 Not Given (Patient Refused): insulin regular human5 units IVP once tb4 Medication: 22:46 VIS not applicable for this client. bm8 Outcome: 23:40 Discharge ordered by . sp4 23:41 Discharged to home ambulatory, Patient refused to sign discharged paper work. tb4 23:41 Condition: stable 23:41 Discharge instructions given to Patient refused hear discharge instruction 23:52 Patient left the ED. tb4 Signatures: Riya Morrison jj6 Kenn Yap MD MD sp4 Danyel Henning, RN RN bm8 Lashae Rodriguez, KAMILLA RN km10 Bobbi Torres, RN RN tb4 Corrections: (The following items were deleted from the chart) 22:00 21:15 BP 103 / 79; Pulse 79bpm; Resp 22bpm; Pulse Ox 90% RA; Temp 97.8F; km10 km10
[2024-11-06 00:18] VITALS: BP 167/81; TEMP 97.8; O2SAT 95
== END 2024-11-05 23:52 | disposition home or self-care (01) ==
LOC: ER 21:21
DX: R60.0 Localized edema (principal); G89.18 Other acute postprocedural pain; K52.9 Noninfective gastroenteritis and colitis, unspecified; R53.81 Other malaise; Z95.1 Presence of aortocoronary bypass graft; Z95.818 Presence of other cardiac implants and grafts
CPT/HCPCS: 96361; 85025; 36415; 83690; 80053; 96375; 96374; 99285; J2405; J7040